=== PATIENT | male | born 1955 | race Hispanic/Latino ===

== ENCOUNTER 2020-09-11 16:10 | Emergency (ER) | payer OTHER ==
--- OUTSIDE RECORDS SUMMARY | 2020-09-11 16:13 | XMS REPORT | Continuity of Care Document ---
:1955 Author Organization [facility] t Address [address] [place] [address] Care Team Providers Name Role Phone Avi Mcleod MD Primary Care Physician [phone] Mirza Hall Attending Clinician JULIET Attending Clinician Unavailable JULIET Admitting Clinician Unavailable Problems Condition Condition Condition Status Onset Resolution Last Treating Co mments Source Name Details Category Date Date Treatment Clinician Date R25.1 - Diagnosis Active 2019-10-11 Me moria "TREMOR, 6-12 10:20:00 l UNSPECIFIE R25.1 - 00:01: Her smith D" M79.643 "TREMOR, 00 - UNSPECIFIE D" M79.643 - Active 10/08/2019 WINSOME Ross Weakness Weakness Disease Active [place] of both of both 06 Methodi arms arms 00:00: st 00 Cervical Problem Active 2020-03-04 Mem oria myelopathy 22:23:23 l (disorder) Cervical He rmann myelopathy (disorder) Active Problem 03/04/2020 [facility] OPIDonald Ross Hand pain Problem Active 2020-03-04 Me moria (finding) 22:23:23 l Hand [place] pain (finding) Active [facility] WINSOME Ross Tremor Problem Active 2020-03-04 Memor ia (finding) 22:23:23 l Tremor [place] (finding) Active Problem 03/04/2020 [facility] OPIDonald NegreteGilman Carpal Problem Active 2020-03-04 Memor ia tunnel 22:23:23 l syndrome Carpal [place] (disorder) tunnel syndrome (disorder) Active Problem 03/04/2020 [facility]ID Gilman Allergies, Adverse Reactions, Alerts Allergy Allergy Status Severity Reaction(s) Onset Inactive Treating Comm ents Source Name Type Date Date Clinician No Known No Known Active Michael a Medicati Medicati l on on [place] Allergie Allergie s s Social History Social Habit Start Date Stop Date Quantity Comments Source Tobacco use and 2018-10-31 2018-10-31 Never used Travis Mata ethodist exposure 00:00:00 00:00:00 Alcohol intake 2018-10-31 2018-10-31 Current drinker [place] [facility] 00:00:00 00:00:00 of alcohol (finding) [birth year] Travis diazodist 00:00:00 00:00:00 Smoking Status Start Date Stop Date Source Social History [facility] Current some day smoker 2018-10-31 00:00:00 [place] Medications Ordered Filled Start Stop Current Ordering Indication Dosage Frequency Signature Comments Components Source Medication Medication Date Date Medication? Clinician (SIG) Name Name gabapentin No 300 mg = 1 M emoria 300 MG Oral 6-10 cap, PO, l Capsule 17:10: TID, 0 [place] 00 Refill(s) HYDROcodone 2018-04 Yes 10 mg = 1 M emoria 10 mg oral 2-26 cap, PO, l capsule, 21:26: Q12H, 0 [place] extended 00 Refill(s) release gabapentin Yes 300mg [id number] Take 300 [place] (NEURONTIN) 7-07 [id number] mg by M ethodi 300 mg 18:11: 3D mouth 3 st capsule 28 (three) times a day. cyclobenzap Yes 10mg Q.5D Take 10 mg Robles rine 7-07 by mouth 2 Methodi (FLEXERIL) 18:11: (two) st 10 mg 28 times a tablet day as needed for muscle spasms. Vital Signs Vital Name Observation Time Observation Value Comments Source Systolic (mm Hg) 2019-10-15 13:46:00 Jesus riaharley Sow Diastolic (mm Hg) 2019-10-15 13:46:00 Mem orial [place] Heart Rate 2019-10-15 13:46:00 Luis Sow Respitory Rate 2019-10-15 13:46:00 Memori al [place] Height 2019-10-15 13:46:00 172.72 cm [facility] [place] Weight 2019-10-15 13:46:00 [facility] BMI Calculated 2019-10-15 13:46:00 Memori al [place] Systolic (mm Hg) 2019-10-06 16:46:00 Jesus rial [place] Diastolic (mm Hg) 2019-10-06 16:46:00 Mem orial [place] Heart Rate 2019-10-06 16:46:00 [facility] Respitory Rate 2019-10-06 16:46:00 Memori al [place] Temperature Oral (F) 2019-10-06 16:46:00 98.5 F [facility] [place] Height 2019-10-06 16:46:00 177.8 cm [facility] [place] Weight 2019-10-06 16:46:00 [facility] BMI Calculated 2019-10-06 16:46:00 Memori al [place] Systolic (mm Hg) 2019-04-22 20:57:00 Jesus rial [place] Diastolic (mm Hg) 2019-04-22 20:57:00 Mem orial [place] Heart Rate 2019-04-22 20:57:00 [facility] Respitory Rate 2019-04-22 20:57:00 Memori al [place] Height 2019-04-22 20:57:00 177.8 cm [facility] [place] Weight 2019-04-22 20:57:00 [facility] BMI Calculated 2019-04-22 20:57:00 Memori al [place] Procedures Procedure Date / Time Performed Performing Clinician [facility] Cervical laminectomy [facility] Plan of Care Planned Activity Planned Date Details Comments Source Future Scheduled 2020-11-26 INFLUENZA VACCINE [place] [facility] Test 00:00:00 [code = INFLUENZA VACCINE] Future Scheduled 2004-01-24 COLONOSCOPY SCREENING [place] [facility] Test 00:00:00 [code = COLONOSCOPY SCREENING] Future Scheduled 2004-01-24 SHINGLES VACCINES (#1) [place] [facility] Test 00:00:00 [code = SHINGLES VACCINES (#1)] Future Scheduled 1972-01-24 Hepatitis C screening [place] [facility] Test 00:00:00 (procedure) [code = 746577441] Future Scheduled 1970 COVID-19 VACCINE (1) Harrisonmichelle morris [facility] Test 00:00:00 [code = COVID-19 VACCINE (1)] Future Scheduled 1960-01-24 65+ PNEUMOCOCCAL [place] Ten[facility] Test 00:00:00 VACCINE (1 of 2 - PPSV23) [code = 65+ PNEUMOCOCCAL VACCINE (1 of 2 - PPSV23)] Encounters Start End Encounter Admission Attending Care Care Encounter Source Date/Time Date/Time Type Type Clinicians Facility Department ID 2020-03-02 2020-03-02 [id number] 10:45:00 10:45:00 Ilia 08 Mirza 2019-10-29 2019-10-29 [facility] [id number] 14:38:00 23:59:00 Ilia Mirza 2019-10-15 2019-10-15 [facility] [id number] 08:15:00 23:59:59 Ilia 05 Mirza 2019-10-11 2019-10-11 Outpatient Isabel [facility] [id number] 10:08:00 23:59:00 Ilia 00 Mirza 2019-10-06 2019-10-06 [facility] [id number] 11:15:00 23:59:59 Ilia 04 Mirza 2019-07-08 2019-07-08 [facility] [id number] 10:30:00 10:30:00 Ilia 03 Mirza 2019-05-19 2019-05-19 [facility] [id number] 08:15:00 08:15:00 Ilia 02 Mirza 2019-04-22 2019-04-22 [facility] [id number] 14:30:00 23:59:59 Ilia Mirza 2019-02-11 2019-02-11 Outpatient Kwaku CHUNG [facility] RAD [id number] 16:11:00 23:59:00 WERN[facility] Results Test Description Test Time Test Comments Results Result Comments Source LUMBOSACRAL AP & 2019-02-11 Lumbar spine, 2 LATERAL *GP* 16:42:58 viewsLocation Code: [id number] HISTORY: Back problemCOMPARISON: None.COMMENTS: AP and lateral views of the lumbar spine demonstrate no acutefracture or malalignment. There is moderate multilevel disc space narrowingwith endplate sclerosis and osteophyte formation. The soft tissues areunremarkable.IMPR ESSION: Moderate multilevel lumbar spondylosis with otherwise no acuteabnormality.
[2020-09-11] MEDS ORDERED: HYDROCODONE/APAP 5/325 MG TAB ONE (17:15)
--- NOTE | 2020-09-11 17:47 | RAD REPORT ---
EXAM DESCRIPTION: CT - Head Brain Wo Cont - 09/11/2020 5:21 pm CLINICAL HISTORY: Fall injury Fall, trauma, head injury COMPARISON: HEAD BRAIN W O CONTRAST dated 07/05/2015 TECHNIQUE: All CT scans are performed using dose optimization technique as appropriate and may inclu de automated exposure control or mA/KV adjustment according to patient size. FINDINGS: No intracranial hemorrhage, hydrocephalus or extra-axial fluid collection.No areas of brai n edema or evidence of midline shift. The paranasal sinuses and mastoids are clear. The calvarium is intact. IMPRESSION: No acute intracranial abnormality.
--- NOTE | 2020-09-11 17:50 | RAD REPORT ---
EXAM DESCRIPTION: RAD - Wrist Right 3 View - 09/11/2020 5:27 pm CLINICAL HISTORY: PAIN Pain COMPARISON: <Comparisons> FINDINGS: Soft tissue swelling is seen along the posterior wrist. Prominent degenerative changes ar e noted involving the radiocarpal joint. No acute fractures seen.
--- NOTE | 2020-09-11 17:51 | RAD REPORT ---
EXAM DESCRIPTION: RAD - Knee Right 3 View - 09/11/2020 5:27 pm CLINICAL HISTORY: PAIN COMPARISON: No comparisons FINDINGS: Severe osteoarthritis is seen involving the lateral compartment with [id number]. No acut e fracture evident. Small suprapatellar joint effusion.
--- NOTE | 2020-09-11 18:15 | ER ---
Nurse's Notes [facility] Name: Rene Padgett Age: 65 yrs Sex: Male : 1955 Arrival Date: 09/11/2020 Time: 16:10 Bed 10 Private MD: Diagnosis: Abrasion of nose;Laceration without foreign body of lip;Contusion of right knee;Unspecified sprain of right wrist Presentation: 09/11 16:19 Chief complaint: Patient states: tripped and fell forward at 1425 today. Lac on lower ca1 lip, nose. Pain on R of the sternum, R knee, R wrist. Denies LOC. Coronavirus screen: Client denies travel out of the [place] in the last 14 days. At this time, the client does not indicate any symptoms associated with coronavirus-19. Ebola Screen: Patient negative for fever greater than or equal to 101.5 degrees Fahrenheit, and additional compatible Ebola Virus Disease symptoms Patient denies exposure to infectious person. Patient denies travel to an Ebola-affected area in the 21 days before illness onset. No symptoms or risks identified at this time. Initial Sepsis Screen: Does the patient meet any 2 criteria? No. Patient's initial sepsis screen is negative. Does the patient have a suspected source of infection? No. Patient's initial sepsis screen is negative. Risk Assessment: Do you want to hurt yourself or someone else? Patient reports no desire to harm self or others. Onset of symptoms was September 11, 2020. 16:19 Method Of Arrival: Wheelchair ca1 16:19 Acuity: JAYLEN 4 ca1 Historical: - Allergies: 16:22 No Known Allergies; ca1 - PMHx: 16:22 High Cholesterol; ca1 - PSHx: 16:22 back sx; ca1 - Immunization history:: Client reports receiving the 2nd dose of the Covid vaccine, Client reports receiving the 1st dose of the Covid vaccine, Last tetanus immunization: unknown, Flu vaccine status is unknown. - Social history:: Smoking status: Patient denies any tobacco usage or history of. Screenin:47 Abuse screen: Denies threats or abuse. Denies injuries from another. Nutritional ld1 screening: No deficits noted. Tuberculosis screening: No symptoms or risk factors identified. Fall Risk Fall in past 12 months (25 points). Assessment: 16:47 General: Appears in no apparent distress. comfortable, Behavior is calm, cooperative, ld1 appropriate for age. Pain: Complains of pain in medial aspect of right wrist, right arm and right leg Pain currently is 8 out of 10 on a pain scale. Quality of pain is described as throbbing, Pain began 2 hours ago. Is continuous. Neuro: Level of Consciousness is awake, alert, obeys commands, Oriented to person, place, time, situation, Appropriate for age. Cardiovascular: Capillary refill < 3 seconds Patient's skin is warm and dry. Respiratory: Airway is patent Respiratory effort is even, unlabored, Respiratory pattern is regular, symmetrical. GI: Abdomen is round non-distended. : No signs and/or symptoms were reported regarding the genitourinary system. EENT: No signs and/or symptoms were reported regarding the EENT system. Derm: No signs and/or symptoms reported regarding the dermatologic system. Musculoskeletal: No signs and/or symptoms reported regarding the musculoskeletal system. Vital Signs: 16:19 BP 139 / 91; Pulse 73; Resp 16 S; Temp 98.1; Pulse Ox 98% on R/A; Weight 102.06 kg (R); ca1 Height 5 ft. 10 in. (177.80 cm) (R); Pain 10/10; 16:47 BP 142 / 109; Pulse 73; Resp 18; Pulse Ox 99% on R/A; Weight 102.6 kg; Height 5 ft. 9 ld1 in. (175.26 cm); Pain 8/10; 16:47 Body Mass Index 33.40 (102.60 kg, 175.26 cm) ld1 ED Course: 16:10 Patient arrived in ED. ds1 16:22 Triage completed. ca1 16:22 Arm band placed on right wrist. ca1 16:38 Cristina aHre RN is Primary Nurse. ld1 16:39 Travis Park NP is PHCP. pm1 16:39 Krzysztof Aly MD is Attending Physician. pm1 16:47 Patient has correct armband on for positive identification. Call light in reach. Pulse ld1 ox on. NIBP on. Door closed. Noise minimized. 16:47 No provider procedures requiring assistance completed. ld1 17:22 CT Head Brain wo Cont In Process Unspecified. EDMS 17:27 Knee Right 3 View XRAY In Process Unspecified. EDMS 17:27 Wrist Right 3 View XRAY In Process Unspecified. EDMS 18:24 Patient did not have IV access during this emergency room visit. 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 Exp: ld1 10/01/2021. Lot #: [id number]. } Route: IM; Site: right deltoid; 18:24 Follow up: Response: No adverse reaction ld1 Outcome: 18:14 Discharge ordered by MD. pm1 18:23 Discharged to home via wheelchair. ld1 18:23 Condition: good 18:23 Discharge instructions given to patient, family, Instructed on discharge instructions, follow up and referral plans. medication usage, Demonstrated understanding of instructions, follow-up care, medications, Prescriptions given X 1. 18:24 Patient left the ED. ld1 Signatures: Dispatcher [employer] EDWY Frieda Elizabeth ds1 Travis Park, BOX PRINTER BOX PRINTER pm1 Indira Giordano RN RN ca1 Cristina Hare RN RN ld1 Corrections: (The following items were deleted from the chart) 16:26 16:19 Chief complaint: Patient states: tripped and fell forward at 1425 today. Lac on ca1 lower lip, nose. Pain on R of the sternum, R knee, R wrist. ca1
--- NOTE | 2020-09-11 18:15 | EDPHYS ---
Physician Documentation [facility] Name: Rene Padgett Age: 65 yrs Sex: Male : 1955 Arrival Date: 09/11/2020 Time: 16:10 Bed 10 Private MD: ED Physician Krzysztof Aly HPI: 09/11 17:25 This 65 yrs old Male presents to ER via Wheelchair with complaints of Fall pm1 Injury. 17:25 Details of fall: The patient fell from an upright position, while standing. Onset: The pm1 symptoms/episode began/occurred today. Associated injuries: The patient sustained right wrist and right knee, pain, nose, abrasion, mouth, laceration. The patient has not experienced similar symptoms in the past. The patient has not recently seen a physician. Patient slipped in the mud and landed on his right knee, right hand and face. No LOC, headache, neck pain. Historical: - Allergies: 16:22 No Known Allergies; ca1 - PMHx: 16:22 High Cholesterol; ca1 - PSHx: 16:22 back sx; ca1 - Immunization history:: Client reports receiving the 2nd dose of the Covid vaccine, Client reports receiving the 1st dose of the Covid vaccine, Last tetanus immunization: unknown, Flu vaccine status is unknown. - Social history:: Smoking status: Patient denies any tobacco usage or history of. ROS: 17:25 Constitutional: Negative for fever, chills, and weight loss, Eyes: Negative for injury, pm1 pain, redness, and discharge, Neck: Negative for injury, pain, and swelling, Cardiovascular: Negative for chest pain, palpitations, and edema, Respiratory: Negative for shortness of breath, cough, wheezing, and pleuritic chest pain. 17:25 ENT: Negative for injury, pain, and discharge, Abdomen/GI: Negative for abdominal pain, nausea, vomiting, diarrhea, and constipation, Back: Negative for injury and pain. 17:25 Neuro: Negative for headache, weakness, numbness, tingling, and seizure. 17:25 MS/extremity: Positive for pain, of the right wrist and right knee, Negative for decreased range of motion, deformity. 17:25 Skin: Positive for abrasion(s), of the nose. Exam: 17:25 Constitutional: This is a well developed, well nourished patient who is awake, alert, pm1 and in no acute distress. Head/Face: Normocephalic, atraumatic. 17:25 Neck: Trachea midline, no thyromegaly or masses palpated, and no cervical lymphadenopathy. Supple, full range of motion without nuchal rigidity, or vertebral point tenderness. No Meningismus. Chest/axilla: Normal chest wall appearance and motion. Nontender with no deformity. No lesions are appreciated. 17:25 Back: No spinal tenderness. No costovertebral tenderness. Full range of motion. Skin: Warm, dry with normal turgor. Normal color with no rashes, no lesions, and no evidence of cellulitis. 17:25 ENT: Nose: External nose: abrasion is noted, apex of the nose, Nasal septum: is midline, no septal hematoma appreciated, Nasal mucosa: normal, bleeding, is not appreciated, is seen from the right nare, is seen from the left nare, Mouth: Lips: small shallow laceration present to right side of lower lip, Oral mucosa: normal, pink and intact, moist, Gums: normal with healthy appearance, Tongue: is normal. 17:25 Cardiovascular: Rate: normal, Rhythm: regular, Pulses: no pulse deficits are appreciated. 17:25 Respiratory: Exam negative for acute changes, respiratory distress, shortness of breath. 17:25 Musculoskeletal/extremity: Extremities: grossly normal except: noted in the right wrist: tenderness, There is no evidence of decreased ROM, deformity, noted in the right knee: tenderness, no evidence of decreased ROM, deformity. 17:25 Neuro: Exam negative for acute changes, Orientation: is normal, Mentation: is normal, pm1 Motor: is normal, moves all fours. Vital Signs: 16:19 BP 139 / 91; Pulse 73; Resp 16 S; Temp 98.1; Pulse Ox 98% on R/A; Weight 102.06 kg (R); ca1 Height 5 ft. 10 in. (177.80 cm) (R); Pain 10/10; 16:47 BP 142 / 109; Pulse 73; Resp 18; Pulse Ox 99% on R/A; Weight 102.6 kg; Height 5 ft. 9 ld1 in. (175.26 cm); Pain 8/10; 16:47 Body Mass Index 33.40 (102.60 kg, 175.26 cm) ld1 MDM: 16:44 Patient medically screened. pm1 17:51 ED course: small superficial laceration present to right lower lip that does not pm1 require suturing. 18:13 Data reviewed: vital signs. Data interpreted: Pulse oximetry: on room air is 99 %. pm1 Interpretation: normal. Counseling: I had a detailed discussion with the patient and/or guardian regarding: the historical points, exam findings, and any diagnostic results supporting the discharge/admit diagnosis, radiology results, the need for outpatient follow up, for definitive care, a orthopedic surgeon, to return to the emergency department if symptoms worsen or persist or if there are any questions or concerns that arise at home. 09/11 16:45 Order name: Knee Right 3 View XRAY; Complete Time: 17:53 pm1 09/11 16:45 Order name: Wrist Right 3 View XRAY; Complete Time: 17:53 pm1 09/11 16:45 Order name: CT Head Brain wo Cont; Complete Time: 17:51 pm1 09/11 18:15 Order name: [place] wrap-joint; Complete Time: 18:22 pm1 Administered Medications: 16:58 Drug: [place] (HYDROcodone-acetaminophen) 5 mg-325 mg 1 tabs Route: PO; ld1 17:22 Follow up: Response: No adverse reaction ld1 18:22 Drug: Tetanus-Diphtheria Toxoid Adult 0.5 ml {Medical Fee Clerk: [employer]. Exp: ld1 10/01/2021. Lot #: [id number]. } Route: IM; Site: right deltoid; 18:24 Follow up: Response: No adverse reaction ld1 Disposition: 18:42 Co-signature as Attending Physician, Krzysztof Aly MD. Chart complete. ma2 Disposition: 09/11/20 18:14 Discharged to Home. Impression: Unspecified sprain of right wrist, Abrasion of nose, Laceration without foreign body of lip, Contusion of right knee. - Condition is Stable. - Discharge Instructions: Abrasion, Wrist Splint, Mouth Laceration, [id number], Wrist Sprain. - Prescriptions for Tylenol- Codeine #3 300-30 mg Oral Tablet - take 2 tablets by ORAL route every 4-6 hours As needed; 20 tablet. - Medication Reconciliation Form, Thank You Letter, Antibiotic Education, Prescription Opioid Use form. - Follow up: Emergency Department; When: As needed; Reason: Worsening of condition. Follow up: Private Physician; When: 2 - 3 days; Reason: Recheck today's complaints, Continuance of care, Re-evaluation by your physician. - Problem is new. - Symptoms have improved. Signatures: Dispatcher [employer] EDMD Travis Park, CAUSTIC PURIFICATION OPERATOR CAUSTIC PURIFICATION OPERATOR pm1 Krzysztof Aly MD MD ma2 Indira Giordano RN RN ca1 Cristina Hare RN RN ld1 Corrections: (The following items were deleted from the chart) 17:27 16:46 Hand Right 3 View+RAD.RAD.BRZ ordered. [facility] EDMD 18:24 18:14 09/11/2020 18:14 Discharged to Home. Impression: Unspecified sprain of right ld1 wristAbrasion of nose; Laceration without foreign body of lip; Contusion of right knee. Condition is Stable. Forms are Medication Reconciliation Form, Thank You Letter, Antibiotic Education, Prescription Opioid Use. Follow up: Emergency Department; When: As needed; Reason: Worsening of condition. Follow up: Private Physician; When: 2 - 3 days; Reason: Recheck today's complaints, Continuance of care, Re-evaluation by your physician. Problem is new. Symptoms have improved. pm1
[2020-09-11] MEDS ORDERED: TETANUS & DIPHTHERIA TOX,ADULT 0.5 ML VIAL ONE (18:36)
== END 2020-09-11 18:24 | disposition home or self-care (01) ==
LOC: ER 16:10
DX: S63.501A Unspecified sprain of right wrist, initial encounter (principal); S00.31XA Abrasion of nose, initial encounter; S80.01XA Contusion of right knee, initial encounter; S01.511A Laceration without foreign body of lip, initial encounter; Z23 Encounter for immunization; E78.00 Pure hypercholesterolemia, unspecified; W01.0XXA Fall on same level from slipping, tripping and stumbling without subsequent striking against object, initial encounter
CPT/HCPCS: 70450; 90471; 90714; 99284

== ENCOUNTER 2022-07-01 16:12 | Emergency (ER) | payer MEDICARE, OTHER ==
[2022-07-01] MEDS ORDERED: predniSONE 20 MG TAB ONE (16:32)
--- OUTSIDE RECORDS SUMMARY | 2022-07-01 16:48 | XMS REPORT | Continuity of Care Document ---
:[address] [facility] t Address [address] [place] [address] Care Team Providers Name Role Phone Avi Mcleod MD Primary Care Physician JOEY CERVANTES Attending Clinician Unavailable ALPA WHARTON Attending Clinician Unavailable SYSTEM, PROVIDER NOT IN Attending Clinician Unavailable RAFAEL MUNGUIA Attending Clinician Unavailable SEVERO MUNROE Attending Clinician Unavailable MO VALENCIA Attending Clinician Unavailable Curly Gomes MD Attending Clinician Billy GRACIA PhD, Joey Attending Clinician Epifanio Joiner MD Attending Clinician Joanie Worthington NP Attending Clinician CROW GREER Attending Clinician Unavailable Crow Greer APN Attending Clinician KAILEY PARIKH Attending Clinician Unavailable Debbie GRACIA, [place] Attending Clinician Facundo Victoria MD Attending Clinician Zoran GARCIA, Gracy Valle Attending Clinician Unavailable Tammi Carbajal Attending Clinician Unavailable Andres CUNNINGHAM, Alpa Attending Clinician Dillan GRACIA, Severo Leung Attending Clinician Calista ENROLLMENT NURSE, Astrid Attending Clinician Christian GRACIA, Karel Attending Clinician Keanu GRACIA, Yodit Chun Attending Clinician Jeremías GRACIA, Mo Attending Clinician Dhara GRACIA, Luis Antonio Aragon Attending Clinician Michael ROCKWELL, Khadra Attending Clinician Lobito GRACIA, Sam Attending Clinician Brianna GASTON, Stephanie Attending Clinician Unavailable Kevin GRACIA, Mauro Danielson Attending Clinician Leann CHOI, Jihan Attending Clinician Bud WAGNER, Rhiannon Olea Attending Clinician [phone] Natalia GRACIA PhD, Brett Attending Clinician Kenney GRACIA, Lb Attending Clinician Kevin GRACIA, Ralph Attending Clinician Letty GRACIA, Shane Lovelace Attending Clinician Curly Kauffman Attending Clinician Isela GARCIA, Chanel Macias Attending Clinician Doris Valencia Attending Clinician Josefa Castillo Attending Clinician Johanne Galaviz RN Attending Clinician Unavailable Maribell GARCIA, Leyla Penaloza Attending Clinician Unavailable Moises ENROLLMENT NURSE, Anila Attending Clinician Zackery ENROLLMENT NURSE, Savana Attending Clinician Lilly GARCIA, Mercedez Garland Attending Clinician Unavailable Yazan GRACIA, Phoebe Gómez Attending Clinician Maki Cox NP Attending Clinician PHOEBE PEREZ Attending Clinician Unavailable Leyla GRACIA, Marciano Attending Clinician Jaren GRACIA, Rod Attending Clinician Lucinda Antoine APN Attending Clinician Joseph SCHOOL BUS DRIVER/MECHANIC, Michelle Attending Clinician LUCINDA ANTOINE Attending Clinician Unavailable Rodger GRACIA, Nolberto Aragon Attending Clinician Chacho GRACIA, Patel Lemos Attending Clinician Claudia Gayle Attending Clinician DARNELL QUICK Attending Clinician Unavailable Elizabeth GARCIA, Elver Lawson Attending Clinician Unavailable Valerie Arana Attending Clinician Jacklyn Menjivar Attending Clinician Eren East MD Attending Clinician Valerie Torres MD Attending Clinician Poli Recinos MD Attending Clinician Luis Antonio Baker MD Attending Clinician [phone] LUIS ANTONIO BAKER Attending Clinician Unavailable Darnell Quick APN Attending Clinician Archana Rhoades Attending Clinician Sriram Corea MD Attending Clinician YODIT COLUNGA Attending Clinician Unavailable Nikki Kraus Attending Clinician Cesar Angel Attending Clinician Favian Hill MD Attending Clinician Shaik BERNARD Nadja Jenkins Attending Clinician Mouna Youssef Attending Clinician Jaren Baptiste MD Attending Clinician Shaji TEACHER EDUCATION INSTRUCTOR, Jony Attending Clinician Jordan GARCIA, Scarlett Johnson Attending Clinician Unavailable Tarik WAGNER, Susan Perkins Attending Clinician Bg Montemayor PT, Paula Attending Clinician Dimple Moctezuma Attending Clinician SUSAN KELLER Attending Clinician Unavailable Alex RN, Lavern Espino Attending Clinician Unavailable Jay WAGNER, Tahir S Attending Clinician [phone] Carlos GARCIA, Chanel Haney Attending Clinician Unavailable Nigel GARCIA, Jodi Almaguer Attending Clinician Unavailable Julian GRACIA, Cornelius Lemos Attending Clinician Sylvester GRACIA, Ana Attending Clinician Leann RGACIA, Crescencio Gurrola. Attending Clinician Elham GRACIA, Francis Attending Clinician Anay GRACIA, Roberto Attending Clinician [phone] Misti Barton Attending Clinician [phone] Kiarra Almaguer MD Attending Clinician Clarence GRACIA, Bam Vinson Attending Clinician [phone] Malaika Ram NP Attending Clinician Cassie Arenas Attending Clinician [phone] ROBERTO FENG Attending Clinician Unavailable BELKIS ELLIOTT Attending Clinician Unavailable CRESCENCIO COOLEY V. Attending Clinician Unavailable Leann CUNNINGHAM, [facility] Attending Clinician Inge Garcia MA Attending Clinician Unavailable NEIL LEVINE Attending Clinician Unavailable Neil Levine MD Attending Clinician 2, [facility] Attending Clinician Unavailable Mo Valencia MD Attending Clinician Only, Adc Test Attending Clinician Unavailable Doctor Unassigned, [place] Attending Clinician Unavailable Pob, [facility] Main Attending Clinician Unavailable Ilia Hall Attending Clinician WERNER CHUNG Attending Clinician Unavailable MO VALENCIA Admitting Clinician Unavailable JOEY CERVANTES Admitting Clinician Unavailable YODIT COLUNGA Admitting Clinician Unavailable PHOEBE PEREZ Admitting Clinician Unavailable SEVERO MUNROE Admitting Clinician Unavailable POLI RECINOS Admitting Clinician Unavailable CRESCENCIO COOLEY V. Admitting Clinician Unavailable NEIL LEVINE Admitting Clinician Unavailable Mo Valencia MD Admitting Clinician WERNER CHUNG Admitting Clinician Unavailable Payers Payer Name Policy Type Policy Number Effective Date Expiration Date Rigo shaw [facility] [id number] 2021 MEDICARE ADVANTAGE 00:00:00 [employer] [id number] 2020 MEDICARE ADVANTAGE 00:00:00 Problems Condition Condition Condition Status Onset Resolution Last Treating Co mments Source Name Details Category Date Date Treatment Clinician Date Bacteremia Bacteremia Disease Active U nivers 2-22 ity of 00:: [facility] History of History of Disease Active U nivers colonic colonic 2-22 [place] access 00 MD [facility] Bilateral Bilateral Disease Active [facility] arm pain arm pain 05-02 st 00:00: Hosp[facility] 00 l Pain in Pain in Disease Active Univers left knee left knee 10-26 ity of 00:: MD [facility] Peripheral Peripheral Disease Active U anthony neuropathy neuropathy 6- it y of 00:00: MD [facility] Hypokalemi Hypokalemi Disease Active U nivers a a 6-29 ity of 00:00: 00 MD Robert saucedo [facility] Hypomagnes Hypomagnes Disease Active U anthony emia emia 10-24 ity of 00:00: [place] 00 MD Robert saucedo [facility] Hypophosph Hypophosph Disease Active U anthony atemia atemia 10-24 ity of 00:00: [place] 00 MD Robert saucedo [facility] Hypotensio Hypotensio Disease Active U anthony n n 10-22 ity of 00:00: [place] 00 MD Robert saucedo [facility] Sepsis Sepsis Disease Active Univers 6- ity of 00:00: [place] 00 MD oRbert saucedo [facility] Parkinson' Parkinson' Disease Active U anthony s disease s disease 10-22 ity of 00:00: [place] 00 MD Robert saucedo [facility] Urge Urge Disease Active Univers incontinen incontinen 10-22 it y of ce ce 00:00: [place] 00 MD Robert saucedo [facility] Overactive Overactive Disease Active U anthony bladder bladder 10-22 ity of 00:00: [place] 00 MD Robert saucedo [facility] 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 00 MD Jones [facility] 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 5-24 it y of abhishek weiss 00:00: [place] malnutriti malnutriti 00 on on Robert [facility] Fever Fever Disease Active Univers 5-18 ity of 00:00: [place] 00 MD Robert saucedo [facility] Cancer of Cancer of Disease Active Uni vers intra-abdo intra-abdo 5-18 it y of tomas tomas 00:00: [place] organs organs 00 MD [facility] 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 5-18 ity of neoplastic neoplastic [place] disease disease 00 MD Robert saucedo [facility] Abscess Abscess Disease Active Univers with with 5-17 ity of diverticul [place]icul [place] disease ar disease 00 of colon of colon Jaspal burden [facility] Abdominal Abdominal Disease Active Uni vers pain pain 5-17 ity of 00:00: [place] 00 MD [facility] [place] Parkinson' Parkinson' Disease Active M ethodi s disease s disease 05-23 st 00:00: Hospita 00 l R25.1 - R25.1 - Diagnosis Active 2019-10-11 Memoria "TREMOR, "TREMOR, 612 10:20:00 l UNSPECIFIE UNSPECIFIE 00:01: He rmmalaika D" M79.643 D" M79.643 00 - - Active 10/08/2019 [facility] [place] Weakness Weakness Disease Active Metho di of both of both [facility] arms arms 00:00: Hospita 00 l Infection Infection Disease Active Uni vers due to due to ity of ESBL ESBL [place] Escherariana Escherichi MD espino coli a coli [facility] Endocardit Endocardit Disease Active U anthony is is ity of [place] [facility] Pseudomona Pseudomona Disease Active [facility] [place] [facility] Cervical Cervical Problem Active 2020-03-04 Memoria myelopathy myelopathy 22:23:23 l (disorder) (disorder) [place] leila Active Problem 03/04/2020 [facility] [place]OME [place] Hand pain Hand pain Problem Active 2020-03-04 Memoria (finding) (finding) 22:23:23 l Active Juanjose Problem 03/04/2020 [facility] [place] Carpal Carpal Problem Active 2020-03-04 Jesus bj tunnel tunnel 22:23:23 l syndrome syndrome Devonte n (disorder) (disorder) Active Problem 03/04/2020 [facility] [place]OME [place] Tremor Tremor Problem Active 2020-03-04 Jesus bj (finding) (finding) 22:23:23 l Active [place] Problem 03/04/2020 [facility] W[place]OME [place] Primary Primary Disease Resolve 2021-10-22 2021-10-22 Univers cutaneous cutaneous d 09-27 00:00:00 14:06:17 ity of diffuse diffuse 00:00: [place] large cell large cell 00 B-cell [facility] n of lower of lower Cancer extremity extremity Cent er Pain in Pain in Disease Resolve 2021-10-22 2021-10-22 Univers right knee right knee d 09-16 00:00:00 14:05:04 ity of 00:: [place] 00 MD Robert saucedo [facility] Uncontroll Uncontroll Disease Resolve 2021-10-22 2021-10-22 Univers ed pain ed pain d 09-15 00:00:00 14:05:05 ity of 00:00: [place] 00 MD Robert saucedo [facility] Malnutriti Malnutriti Disease Resolve 2021-10-22 2021-10-22 Univers on of on of d 09-14 00:00:00 14:: ity of moderate moderate 00:00: [place] degree degree 00 MD Robert saucedo [facility] Hyposmolal Hyposmolal Disease Resolve 2021-10-22 2021-10-22 Univers ity and/or ity and/or d 09-12 00:00:00 14:04:53 ity of hyponatrem hyponatrem [place] 00 MD Robert saucedo [facility] Intractabl Intractabl Disease Resolve 2021-10-22 2021-10-22 Univers e nausea e nausea d 09-12 00:00:00 14:04:56 it y of and and 00:00: [place] vomiting vomiting 00 MD Robert saucedo [facility] Allergies, Adverse Reactions, Alerts Allergy Allergy Status Severity Reaction(s) Onset Inactive Treating Comm ents Source Name Type Date Date Clinician NO KNOWN Drug Active Univers ALLERGIE Class ity of S [facility] No Known No Known Active Memori a Medicati Medicati l on on Juanjose Allergie Allergie s s Social History Social Habit Start Date Stop Date Quantity Comments Source Tobacco use and 2022-06-19 2022-06-19 Smokeless tobacco Un iversity of exposure 00:00:00 00:00:00 non-user Radha mcnulty [facility] Alcohol intake 2022-06-19 2022-06-19 Ex-drinker University of 00:00:00 00:00:00 (finding) Radha mcnulty [facility] Tobacco Comment 2022-06-19 2022-06-19 Quit 10 yrs back Uni versity of 00:00:00 00:00:00 [facility] Alcohol Comment 2022-06-19 2022-06-19 WQuit 10 yrs back Un iversity of 00:00:00 00:00:00 [facility] Exposure to 2022-06-08 2022-06-18 Not sure [facility]-CoV-2 00:00:00 23:47:00 [facility]cnulty (event[facility] History of 2012-04-28 Cigarette Smoker [facility] of tobacco use 00:00:00 [facility] Sex [birth year] Universit y of 00:00:00 00:00:00 [facility] Smoking Status Start Date Stop Date Source Unknown if ever smoked [facility] Ex-smoker 2022-06-19 00:00:00 2022-06-19 [place] o f Radha GRACIA 00:00:[address] [facility] Occasional tobacco 2021-12-13 00:00:00 [facility] smoker Social History [facility] Medications Ordered Filled Start Stop Current Ordering Indication Dosage Frequency Signature Comments Components Source Medication Medication Date Date Medication? Clinician (SIG) Name Name omeprazole Yes 20mg Take 1 Unive rs (PriLOSEC) 2-28 capsule ity of 20 mg 16:08: (20 mg) by [place] capsule 10 mouth MD every [place]o morning n before Cancer breakfast. [place] hydrOXYchlo Yes 200mg Take 1 Uni vers roQUINE 2-28 tablet ity of (PLAQUENIL) 16:08: (200 mg[place] 200 mg 10 by mouth MD tablet twice [place] daily. [facility] sulfaSALAzi Yes 500mg Take 1 Uni vers ne 2-28 tablet ity of (AZULFIDINE 16:08: (500 mg[place] 500 mg 10 by mouth MD tablet twice Anders[place] daily. [facility] omeprazole Yes 20mg Take 1 Unive rs (PriLOSEC) 2-28 capsule ity of 20 mg 16:08: (20 mg) by [place] capsule 10 mouth MD every [place] morning n before Cancer breakfast. [place] hydrOXYchlo Yes 200mg Take 1 Uni vers roQUINE 2-28 tablet ity of (PLAQUENIL) 16:08: (200 mg[place] 200 mg 10 by mouth MD tablet twice Anderso daily. n [facility] sulfaSALAzi Yes 500mg Take 1 Uni vers ne 2-28 tablet ity of (AZULFIDINE 16:08: (500 mg) [place] 500 mg 10 by mouth MD tablet twice Anderso daily. n [facility] omeprazole Yes 20mg Take 1 Unive rs (PriLOSEC) 2-28 capsule ity of 20 mg 16:08: (20 mg) by [place] capsule 10 mouth MD every [place] morning n before Cancer breakfast. [place] hydrOXYchlo Yes 200mg Take 1 Uni vers roQUINE 2-28 tablet ity of (PLAQUENIL) 16:08: (200 mg) [place] 200 mg 10 by mouth MD tablet twice Anderso daily. n [facility] sulfaSALAzi Yes 500mg Take 1 Uni vers ne 2-28 tablet ity of (AZULFIDINE 16:08: (500 mg) [place] 500 mg 10 by mouth MD tablet twice Anderso daily. n [facility] nystatin 2022- Yes Urge Apply Univers (Nystop) 06-25 incontinenc topically ity of 100,000 00:00: 04:59 e to [place] units/g 00 :00 affected MD powder area(s) 3 Anderso (three) n times a Cancer day for 14 Center days. Groin area nystatin 2022- Yes Urge Apply Univers (Nystop) 06-25 incontinenc topically ity of 100,000 00:00: 04:59 e to [place] units/g 00 :00 affected MD powder area(s) 3 Anderso (three) n times a Cancer day for 14 Center days. Groin area nystatin 2022- Yes Urge Apply Univers (Nystop) 06-25 incontinenc topically ity of 100,000 00:00: 04:59 e to [place] units/g 00 :00 affected MD powder area(s) 3 Anderso (three) n times a Cancer day for 14 Center days. Groin area ceFEPime 2022- No Pseudomonas 6000mg Infuse Univers (MAXIPIME) 06-25 aer[place]in[place] 6,000 mg ity of IV 00:00: 00:00 intravenou [place] prescriptio 00 :00 sly infuse MD n (Home over 24 Anderso Use) hours for n 3 days. [facility] ceFEPime 2022- No Pseudomonas 6000mg Infuse Univers (MAXIPIME) 06-25 aer[place]in[place] 6,000 mg ity of IV 00:00: 00:00 intravenou [place] prescriptio 00 :00 sly infuse MD n (Home over 24 Anderso Use) hours for n 3 days. [facility] ceFEPime 2022- No Pseudomonas 6000mg Infuse Univers (MAXIPIME) 06-25 aer[place]in[place] 6,000 mg ity of IV 00:00: 00:00 intravenou [place] prescriptio 00 :00 sly infuse MD n (Home over 24 Anderso Use) hours for n 3 days. [facility] ceFEPime 2022- No Pseudomonas 6000mg Infuse Univers (MAXIPIME) 06-25 aeroginosa 6,000 mg ity of IV 00:00: 00:00 intravenou [place] prescriptio 00 :00 sly infuse MD n (Home over 24 Anderso Use) hours for n 3 days. [facility] omeprazole Yes 20mg Take 1 Unive rs (PriLOSEC) 2-27 capsule ity of 20 mg 14:50: (20 mg) by [place] capsule 02 mouth MD every Anderso morning n before Cancer breakfast. Center hydrOXYchlo Yes 200mg Take 1 Uni vers roQUINE 2-27 tablet ity of (PLAQUENIL) 14:50: (200 mg) [place] 200 mg 02 by mouth MD tablet twice Anderso daily. n [facility] sulfaSALAzi Yes 500mg Take 1 Uni vers ne 2-27 tablet ity of (AZULFIDINE 14:50: (500 mg) [place] 500 mg 02 by mouth MD tablet twice Anderso daily. n [facility] gabapentin Yes Chronic Take 900 Univers (Neurontin) 2-27 pain mg (3 ity of 300 mg 00:00: capsules) [place] capsule 00 by mouth MD in the Anderso morning, n 900 mg (3 Cancer capsules) Center in afternoon, and take 1200 mg (4 capsules) at night. gabapentin 2022-0 Yes Chronic Take 900 Univers (Neurontin) 2-27 pain mg (3 ity of 300 mg 00:00: capsules) [place] capsule 00 by mouth MD in the Anders morning, n 900 mg (3 Cancer capsules) Center in afternoon, and take 1200 mg (4 capsules) at night. gabapentin 202-0 Yes Chronic Take 900 Univers (Neurontin) 2-27 pain mg (3 ity of 300 mg 00:00: capsules) [place] capsule 00 by mouth MD in the Anders morning, n 900 mg (3 Cancer capsules) Center in afternoon, and take 1200 mg (4 capsules) at night. gabapentin 2022-0 Yes Chronic Take 900 Univers (Neurontin) 2-27 pain mg (3 ity of 300 mg 00:00: capsules) [place] capsule 00 by [facility] n 900 mg (3 Cancer capsules) Center in afternoon, and take 1200 mg (4 capsules) at night. ciprofloxac 0 2022- Yes Bacteremia 750mg Take 1 Univers in HCl 06-24 03-12 tablet ity of (CIPRO) 750 00:00: 05:59 (750 mg) [place] mg tablet 00 :00 by mouth MD every 12 Anderso (twelve) n hours for Cancer 11 days. Center Last dose 07/04/22 ciprofloxac 2022- Yes Bacteremia 750mg Take 1 Univers in HCl 2 03-12 tablet ity of (CIPRO) 750 00:00: 05:59 (750 mg) [place] mg tablet 00 :00 by mouth MD every 12 Anderso (twelve) n hours for Cancer 11 days. Center Last dose 07/04/22 ciprofloxac 2022- Yes Bacteremia 750mg Take 1 Univers in HCl 2 03-12 tablet ity of (CIPRO) 750 00:00: 05:59 (750 mg) [place] mg tablet 00 :00 by mouth MD every 12 Anderso (twelve) n hours for Cancer 11 days. Center Last dose 07/04/22 ciprofloxac 2022- Yes Bacteremia 750mg Take 1 Univers in HCl 06-24 tablet ity of (CIPRO) 750 00:00: 05:59 (750 mg) [place] mg tablet 00 :00 by mouth MD every 12 Anderso (twelve) n hours for Cancer 11 days. Center Last dose 07/04/22 ceFEPime 2022- Yes Pseudomonas 2000mg Infuse Univers (MAXIPIME) 06-24 [place] 2,000 mg ity of IV 00:00: 05:59 intravenou [place] prescriptio 00 :00 sly every MD n (Home 8 (eight) Anderso Use) hours for n 3 days. Cancer Each Center infusion over 3 hours. ceFEPime 2022- Yes Pseudomonas 2000mg Infuse Univers (MAXIPIME) 06-24 [place] 2,000 mg ity of IV 00:00: 05:59 intravenou [place] prescriptio 00 :00 sly every n (Home 8 (eight) Anderso Use) hours for n 3 days. Cancer Each Center infusion over 3 hours. ceFEPime 2022- Yes Pseudomonas 2000mg Infuse Univers (MAXIPIME) 06-24 [place] 2,000 mg ity of IV 00:00: 05:59 intravenou [place] prescriptio 00 :00 sly every MD n (Home 8 (eight) Anderso Use) hours for n 3 days. Cancer Each Center infusion over 3 hours. ceFEPime 2022- No Pseudomonas 2000mg Infuse Univers (MAXIPIME) 06-24 [place] 2,000 mg ity of IV 00:00: 05:59 intravenou [place] prescriptio 00 :00 sly every MD n (Home 8 (eight) Anderso Use) hours for n 3 days. Cancer Each Center infusion over 3 hours. ceFEPime 2022- No Pseudomonas 2000mg Infuse Univers (MAXIPIME) 06-24 [place] 2,000 mg ity of IV 00:00: 00:00 intravenou [place] prescriptio 00 :00 sly every n (Home 8 (eight) Anderso Use) hours for n 3 days. Cancer Center ceFEPime 2022- No Pseudomonas 2000mg Infuse Univers (MAXIPIME) 06-24 [place] 2,000 mg ity of IV 00:00: 00:00 intravenou [place] prescriptio 00 :00 sly every MD n (Home 8 (eight) Anderso Use) hours for n 3 days. Cancer Center ceFEPime 2022- No Pseudomonas 2000mg Infuse Univers (MAXIPIME) 06-24 [place] 2,000 mg ity of IV 00:00: 00:00 intravenou [place] prescriptio 00 :00 sly every MD n (Home 8 (eight) Anderso Use) hours for n 3 days. [facility] Center ceFEPime 2022- No Pseudomonas 2000mg Infuse Univers (MAXIPIME) 06-24 [place] 2,000 mg ity of IV 00:00: 00:00 intravenou [place] prescriptio 00 :00 sly every MD n (Home 8 (eight) Anderso Use) hours for n 3 days. Cancer Center omeprazole Yes 20mg Take 1 Unive rs (PriLOSEC) 2-21 capsule ity of 20 mg 23:10: (20 mg) by [place] capsule 50 mouth MD every Anderso morning n before Cancer breakfast. Center hydrOXYchlo Yes 200mg Take 1 Uni vers roQUINE 2-21 tablet ity of (PLAQUENIL) 23:10: (200 mg) [place] 200 mg 50 by mouth MD tablet twice Anderso daily. n Cancer Center sulfaSALAzi Yes 500mg Take 1 Uni vers ne 2-21 tablet ity of (AZULFIDINE 23:10: (500 mg) [place] ) 500 mg 50 by mouth MD tablet twice Anderso daily. n Cancer Center fentaNYL Yes Chronic 50ug Place 1 Uni vers (DURAGESIC) 2-17 pain after patch (50 ity of 50 mcg/hr 00:00: cancer mcg) on [place] as transdermal 00 treatment the skin MD patch every 72 Anderso hours. n Remove old Cancer patch(es) Center before replacing new patch(es). HYDROmorpho Yes Chronic 4mg Take 1 U nivers ne 2-17 pain after tablet (4 ity of (Dilaudid) 00:00: cancer mg) by [place] 4 mg tablet 00 treatment mouth MD every 6 Anderso (six) n hours as Cancer needed for Center severe pain. fentaNYL [address] 1 Uni vers (DURAGESIC) 2-17 pain after patch (50 ity of 50 mcg/hr 00:00: cancer mcg) on [place] transdermal 00 treatment the skin MD patch every 72 Anderso hours. n Remove old Cancer patch(es) Center before replacing new patch(es). HYDROmorpho Yes Chronic 4mg Take 1 U nivers ne 2-17 pain after tablet (4 ity of (Dilaudid) 00:00: cancer mg) by [place] 4 mg tablet 00 treatment mouth MD every 6 Anderso (six) n hours as Cancer needed for Center severe pain. fentaNYL Yes Chronic 50ug Place 1 Uni vers (DURAGESIC) 2-17 pain after patch (50 ity of 50 mcg/hr 00:00: cancer mcg) on [place] transdermal 00 treatment the skin MD patch every 72 Anderso hours. n Remove old Cancer patch(es) Center before replacing new patch(es). HYDROmorpho Yes Chronic 4mg Take 1 U nivers ne 2-17 pain after tablet (4 ity of (Dilaudid) 00:00: cancer mg) by [place] as 4 mg tablet 00 treatment mouth MD every 6 Anderso (six) n hours as Cancer needed for Center severe pain. fentaNYL Yes Chronic 50ug Place 1 Uni vers (DURAGESIC) 2-17 pain after patch (50 ity of 50 mcg/hr 00:00: cancer mcg) on [place] as transdermal 00 treatment the skin MD patch every 72 Anderso hours. n Remove old Cancer patch(es) Center before replacing new patch(es). HYDROmorpho 0 Yes Chronic 4mg Take 1 U nivers ne 2-17 pain after tablet (4 ity of (Dilaudid) 00:00: cancer mg) by [place] as 4 mg tablet 00 treatment mouth MD every 6 Anderso (six) n hours as Cancer needed for Center severe pain. fentaNYL [address] Yes Chronic [address] 1 Uni vers (DURAGESIC) 2-17 pain after patch (50 ity of 50 mcg/hr 00:00: cancer mcg) on [place] as transdermal 00 treatment the skin MD patch every 72 Anderso hours. n Remove old Cancer patch(es) Center before replacing new patch(es). HYDROmorpho 2022-0 Yes Chronic 4mg Take 1 U nivers ne 2-17 pain after tablet (4 ity of (Dilaudid) 00:00: cancer mg) by [place] 4 mg tablet 00 treatment mouth MD every 6 [place] (six) n hours as Cancer needed for Center severe pain. omeprazole 0 Yes 20mg Take 1 Unive rs (PriLOSEC) 1-16 capsule ity of 20 mg 14:19: (20 mg) by [place] capsule 07 mouth MD every [place] morning n before Cancer breakfast. [place] hydrOXYchlo 2022-0 Yes 200mg Take 1 Uni vers roQUINE 1-16 tablet ity of (PLAQUENIL) 14:19: (200 mg) [place] 200 mg 07 by mouth MD tablet twice [place] daily. n [facility] sulfaSALAzi 2022-0 Yes 500mg Take 1 Uni vers ne 1-16 tablet ity of (AZULFIDINE 14:19: (500 mg) [place] 500 mg 07 by mouth MD tablet twice [place] daily. n [facility] omeprazole 0 Yes 20mg Take 1 Unive rs (PriLOSEC) 1-16 capsule ity of 20 mg 14:19: (20 mg) by [place] capsule 07 mouth MD every [place] morning n before Cancer breakfast. [place] hydrOXYchlo 2022-0 Yes 200mg Take 1 Uni vers roQUINE 1-16 tablet ity of (PLAQUENIL) 14:19: (200 mg) [place] 200 mg 07 by mouth MD tablet twice [place] daily. n [facility] sulfaSALAzi 2022-0 Yes 500mg Take 1 Uni vers ne 1-16 tablet ity of (AZULFIDINE 14:19: (500 mg) [place] 500 mg 07 by mouth MD tablet twice [place] daily. n [facility] ampicillin 2022-0 2022- Yes Bacteremia 12g Infuse [facility] (OMNIPEN) 1-15 05-24 12,000 mg ity of IV 00:00: 05:59 (12 g) [place] prescriptio 00 :00 intravenou MD n (HOME sly infuse Jaspal o USE) over 24 n hours for Cancer 11 days. [place] ampicillin 2022- Yes Bacteremia 12g Infuse [facility] (OMNIPEN) 05-12 12,000 mg ity of IV 00:00: 05:59 (12 g) [place] prescriptio 00 :00 intravenou MD n (HOME sly infuse Jaspal o USE) over 24 n hours for Cancer 11 days. [place] ampicillin 2022- No Bacteremia 12g Infuse [facility] (OMNIPEN) 05-12 12,000 mg ity of IV 00:00: 05:59 (12 g) [place] prescriptio 00 :00 intravenou MD n (HOME sly infuse Jaspal o USE) over 24 n hours for Cancer 11 days. [place] ampicillin 2022- No Bacteremia 12g Infuse [facility] (OMNIPEN) 05-12 12,000 mg ity of IV 00:00: 05:59 (12 g) [place] prescriptio 00 :00 intravenou MD n (HOME sly infuse Jaspal o USE) over 24 n hours for Cancer 11 days. [place] ampicillin 2022- No Bacteremia 12g Infuse [facility] (OMNIPEN) 05-12 12,000 mg ity of IV 00:00: 05:59 (12 g) [place] prescriptio 00 :00 intravenou MD n (HOME sly infuse Jaspal o USE) over 24 n hours for Cancer 11 days. [place] ampicillin 2022- No Bacteremia 12g Infuse [facility] (OMNIPEN) 05-12 12,000 mg ity of IV 00:00: 05:59 (12 g) [place] prescriptio 00 :00 intravenou MD n (HOME sly infuse Jaspal o USE) over 24 n hours for Cancer 11 days. [place] ampicillin 2022- No Bacteremia 12g Infuse [facility] (OMNIPEN) 05-12 12,000 mg ity of IV 00:00: 05:59 (12 g) [place] prescriptio 00 :00 intravenou MD n (HOME sly infuse Jaspal o USE) over 24 n hours for Cancer 11 days. [place] sulfamethox 2022- No 1{tbl} Take 1 U nivers azole-trime 05-10 tablet by it y of thoprim 16:05: 00:00 mouth 3 Radha (BACTRIM 35 :00 (three) MD NICHOLE) 800 times a [place] mg-160 mg week n per tablet Friday, [facility] Friday [facility] and Friday. sulfamethox 2022-2022- No 1{tbl} Take 1 U nivers azole-trime 05-10 tablet by it y of thoprim 16:05: 00:00 mouth 3 Radha (BACTRIM 35 :00 (three) MD NICHOLE) 800 times a [place] mg-160 mg week n per tablet Friday, [facility] Friday [facility] and Friday. sulfamethox 2022-2022- No 1{tbl} Take 1 U nivers azole-trime 05-10 tablet by it y of thoprim 16:05: 00:00 mouth 3 Radha (BACTRIM 35 :00 (three) MD NICHOLE) 800 times a [place] mg-160 mg week n per tablet Friday, [facility] Friday Center and Friday. sulfamethox 2022-2022- No 1{tbl} Take 1 U nivers azole-trime 05-10 tablet by it y of thoprim 16:05: 00:00 mouth 3 [place]ha (BACTRIM 35 :00 (three) MD NICHOLE) 800 times a [place] mg-160 mg week n per tablet Friday, [facility] Friday [facility] and Friday. sulfamethox 2022-2022- No 1{tbl} Take 1 U nivers azole-trime 05-10 tablet by it y of thoprim 16:05: 00:00 mouth 3 [place]ha (BACTRIM 35 :00 (three) MD NICHOLE) 800 times a [place] mg-160 mg week n per tablet Friday, [facility] Friday Center and Friday. sulfamethox 2022-0 2022- No 1{tbl} Take 1 U nivers azole-trime 05-10 tablet by it y of thoprim 16:05: 00:00 mouth 3 [place] (BACTRIM 35 :00 (three) MD NICHOLE) 800 times a [place] mg-160 mg week n per tablet Friday, Cancer Friday Center and Friday. sulfamethox 2022- No 1{tbl} Take 1 U nivers azole-trime -05-10 tablet by it 16:05: 00:00 mouth 3 [place] (BACTRIM 35 :00 (three) MD NICHOLE) 800 times a [place] mg-160 mg week n per tablet Friday, Cancer Friday Center and Friday. sodium Yes Bacteremia 10mL Infuse 10 [facility] chloride 1-13 mL ity of (NS) 0.9% 00:00: intravenou [place] injection 00 sly as MD flush needed for [place] syringe line care. [facility] sodium Yes Bacteremia 10mL Infuse 10 [facility] chloride 1-13 mL ity of (NS) 0.9% 00:00: intravenou [place] injection 00 sly as MD flush needed for [place] syringe line care. [facility] sodium Yes Bacteremia 10mL Infuse 10 [facility] chloride 1-13 mL ity of (NS) 0.9% 00:00: intravenou [place] injection 00 sly as MD flush needed for [place] syringe line care. [facility] sodium Yes Bacteremia 10mL Infuse 10 [facility] chloride 1-13 mL ity of (NS) 0.9% 00:00: intravenou [place] injection 00 sly as MD flush needed for [place] syringe line care. [facility] sodium 2022- No Bacteremia 10mL Infuse 10 [facility] chloride 1-13 02-28 mL ity of (NS) 0.9% 00:00: 00:00 intravenou [place] injection 00 :00 sly as MD flush needed for [place] syringe line care. [facility] sodium 2022- No Bacteremia 10mL Infuse 10 [facility] chloride 1-13 02-28 mL ity of (NS) 0.9% 00:00: 00:00 intravenou [place] injection 00 :00 sly as MD flush needed for [place] syringe line care. [facility] sodium 2022- No Bacteremia 10mL Infuse 10 [facility] chloride 1-13 02-28 mL ity of (NS) 0.9% 00:00: 00:00 intravenou [place] injection 00 :00 sly as MD flush needed for [place] syringe line care. n [facility] hydrOXYchlo Yes 200mg Take 1 Uni vers roQUINE 1-09 tablet ity of (PLAQUENIL) 06:07: (200 mg) [place] 200 mg 49 by mouth MD tablet twice [place] daily. n [facility] sulfaSALAzi Yes 500mg Take 1 Uni vers ne 1-09 tablet ity of (AZULFIDINE 06:07: (500 mg) [place] ) 500 mg 49 by mouth MD tablet twice [place] daily. n [facility] omeprazole Yes 20mg Take 1 Unive rs (PriLOSEC) - capsule ity of 20 mg 06:07: (20 mg) by [place] capsule 48 mouth MD every [place] morning n before Cancer breakfast. [place] sulfamethox Yes 1{tbl} Take 1 [facility] hillary azole-trime -09 tablet by ity of thoprim 06:07: mouth 3 [place] (BACTRIM 48 (three) DS) 800 times a [place] mg-160 mg week n per tablet Friday, Cancer Friday Center and Friday. fentaNYL Yes Chronic 50ug Place 1 Uni vers (DURAGESIC) 1-08 pain after patch (50 ity of 50 mcg/hr 00:00: cancer mcg) on [place] transdermal 00 treatment the skin MD patch every 72 [place] hours. n Remove old Cancer patch(es) Center before replacing new patch(es). fentaNYL Yes Chronic 50ug Place 1 Uni vers (DURAGESIC) 1-08 pain after patch (50 ity of 50 mcg/hr 00:00: cancer mcg) on [place] transdermal 00 treatment the skin MD patch every 72 [place] hours. n Remove old Cancer patch(es) Center before replacing new patch(es). fentaNYL Yes Chronic 50ug Place 1 Uni vers (DURAGESIC) 1-08 pain after patch (50 ity of 50 mcg/hr 00:00: cancer mcg) on [place] transdermal 00 treatment the skin MD patch every 72 [place] hours. n Remove old Cancer patch(es) Center before replacing new patch(es). fentaNYL 2022- No Chronic 50ug Place 1 Un hillary (DURAGESIC) 05-0517 pain after patch (50 ity of 50 mcg/hr 00:00: 00:00 [place] mcg) [place] transdermal 00 :00 treatment the skin MD patch every 72 [place] hours. n Remove old Cancer patch(es) Center before replacing new patch(es). fentaNYL 2022- No Chronic 50ug Place 1 Un hillary (DURAGESIC) 05-0517 pain after patch (50 ity of 50 mcg/hr 00:00: 00:00 cancer mcg) [place] transdermal 00 :00 treatment the skin MD patch every 72 [place] hours. n Remove old Cancer patch(es) Center before replacing new patch(es). fentaNYL 2022- No Chronic 50[address] Place 1 Un hillary (DURAGESIC) 05-0517 pain after patch (50 ity of 50 mcg/hr 00:00: 00:00 cancer mcg) [place] transdermal 00 :00 treatment the skin MD patch every 72 [place] hours. n Remove old Cancer patch(es) Center before replacing new patch(es). fentaNYL 2022- No Chronic 50[address] Place 1 Un hillary (DURAGESIC) 05-0517 pain after patch (50 ity of 50 mcg/hr 00:00: 00:00 cancer mcg) [place] transdermal 00 :00 treatment the skin MD patch every 72 [place] hours. n Remove old Cancer patch(es) Center before replacing new patch(es). fentaNYL 2022- No Chronic 50[address] Place 1 Un hillary (DURAGESIC) 05-05-17 pain after patch (50 ity of 50 mcg/hr 00:00: 00:00 cancer mcg) [place] transdermal 00 :00 treatment the skin MD patch every 72 [place] hours. n Remove old Cancer patch(es) Center before replacing new patch(es). HYDROmorpho 2022- No Uncontrolle 4mg Take 1 [facility] ne 05-05 01-12 d pain tablet (4 ity of (DILAUDID) 00:00: 00:00 mg[place] 4 [place] tablet 00 :00 mouth MD every 6 [place] (six) n hours as Cancer needed for Center severe pain. HYDROmorpho 2023-0 2023- No Uncontrolle 4mg Take 1 [facility] ne 05-05-12 d pain tablet (4 ity of (DILAUDID) 00:00: 00:00 mg[place] 4 mg tablet 00 :00 mouth MD every 6 [place] (six) n hours as Cancer needed for Center severe pain. HYDROmorpho 2023-0 2023- No Uncontrolle 4mg Take 1 [facility] ne 05-05-12 d pain tablet (4 ity of (DILAUDID) 00:00: 00:00 mg[place] 4 [place] tablet 00 :00 mouth MD every 6 [place] (six) n hours as Cancer needed for Center severe pain. HYDROmorpho 2023-0 2023- No Uncontrolle 4mg Take 1 [facility] ne 05-05-12 d pain tablet (4 ity of (DILAUDID) 00:00: 00:00 mg[place] 4 [place] tablet 00 :00 mouth MD every 6 [place] (six) n hours as Cancer needed for Center severe pain. HYDROmorpho 2023-0 2023- No Uncontrolle 4mg Take 1 [facility] ne 05-05-12 d pain tablet (4 ity of (DILAUDID) 00:00: 00:00 mg[place] 4 [place] tablet 00 :00 mouth MD every 6 [place] (six) n hours as Cancer needed for Center severe pain. HYDROmorpho 2023-0 2023- No Uncontrolle 4mg Take 1 [facility] ne 05-05-12 d pain tablet (4 ity of (DILAUDID) 00:00: 00:00 mg[place] 4 [place] tablet 00 :00 mouth MD every 6 [place] (six) n hours as Cancer needed for Center severe pain. HYDROmorpho 2023-0 2023- No Uncontrolle 4mg Take 1 [facility] ne 05-05-12 d pain tablet (4 ity of (DILAUDID) 00:00: 00:00 mg[place] 4 [place] tablet 00 :00 mouth MD every 6 [place] (six) n hours as Cancer needed for Center severe pain. HYDROmorpho 2023-0 2023- No Uncontrolle 4mg Take 1 [facility] ne 08 01-12 d pain tablet (4 ity of (DILAUDID) 00:00: 00:00 mg[place] 4 [place] tablet 00 :00 mouth MD every 6 [place] (six) n hours as Cancer needed for Center severe pain. carbidopa-l Yes 25{tbl} Take Uni vers evodopa 1-05 25-250 ity of (SINEMET) 00:00: tablets by [place] 25-250 mg 00 mouth 3 MD per tablet (three) Jaspal o times a n day. Cancer Center carbidopa-l Yes 1{tbl} Take 1 Un hillary evodopa 1-05 tablet by ity of (SINEMET) 00:00: mouth 3 [place] 25-250 mg 00 (three) MD per tablet times a Jaspal o day. n Cancer Center carbidopa-l Yes 1{tbl} Take 1 [facility] evodopa 1-05 tablet by ity of (SINEMET) 00:00: mouth 3 [place] 25-250 mg 00 (three) MD per tablet times a [place]al o day. n Cancer Center carbidopa-l Yes 1{tbl} Take 1 [facility] evodopa 1-05 tablet by ity of (SINEMET) 00:00: mouth 3 [place] 25-250 mg 00 (three) MD per tablet times a Jaspal o day. n Cancer Center carbidopa-l Yes 1{tbl} Take 1 [facility] evodopa 1-05 tablet by ity of (SINEMET) 00:00: mouth 3 [place] 25-250 mg 00 (three) MD per tablet times a Jaspal o day. n Cancer Center carbidopa-l Yes 1{tbl} Take 1 [facility] evodopa 1-05 tablet by ity of (SINEMET) 00:00: mouth 3 [place] 25-250 mg 00 (three) MD per tablet times a Jaspal o day. n Cancer Center carbidopa-l Yes 1{tbl} Take 1 [facility] evodopa 1-05 tablet by ity of (SINEMET) 00:00: mouth 3 [place] 25-250 mg 00 (three) MD per tablet times a Jaspal o day. [facility] carbidopa-l 2022-0 Yes 1{tbl} Take 1 Un hillary evodopa 1-05 tablet by ity of (SINEMET) 00:00: mouth 3 [place] 25-250 mg 00 (three) MD per tablet times a Jaspal o day. [facility] carbidopa-l 3-0 2023- Yes 1{tbl} Q.[id number] Take 1 [facility] evodopa 1-08 26- [id number] tablet by st (Sinemet) 00:00: 05:59 3D mouth 3 [facility] 25-250 mg 00 :00 (three) l per tablet times a day. carbidopa-l 2022-0 2023- Yes 1{tbl} Q.[id number] Take 1 [facility] evodopa 05-[id number] (Sinemet) 00:00: 05:59 3D mouth 3 [facility] 25-250 mg 00 :00 (three) l per tablet times a day. carbidopa-l 2022-0 2023- Yes 1{tbl} Q.[id number] Take 1 [facility] evodopa 1-08 26- [id number] tablet by [facility] (Sinemet) 00:00: 05:59 3D mouth 3 [facility] 25-250 mg 00 :00 (three) l per tablet times a day. carbidopa-l 2022-0 2023- Yes 1{tbl} Q.[id number] Take 1 [facility] evodopa 05-[id number] (Sinemet) 00:00: 05:59 3D mouth 3 [facility] 25-250 mg 00 :00 (three) l per tablet times a day. carbidopa-l 2022-0 2023- Yes 1{tbl} Q.[id number] Take 1 [facility] evodopa 05-02- [id number] tablet by st (Sinemet) 00:00: 05:59 3D mouth 3 [facility] 25-250 mg 00 :00 (three) l per tablet times a day. carbidopa-l 3-0 2023- Yes 1{tbl} Q.[id number] Take 1 [facility] evodopa 05-[id number] (Sinemet) 00:00: 05:59 3D mouth 3 [facility] 25-250 mg 00 :00 (three) l per tablet times a day. carbidopa-l 2023- Yes 1{tbl} Q.[id number] Take 1 [facility] evodopa 105-[id number] (Sinemet) 00:00: 05:59 3D mouth 3 [facility] 25-250 mg 00 :00 (three) l per tablet times a day. carbidopa-l 2023- Yes 1{tbl} Q.[id number] Take 1 [facility] evodopa 05-[id number] (Sinemet) 00:00: 05:59 3D mouth 3 [facility] 25-250 mg 00 :00 (three) l per tablet times a day. carbidopa-l 2023- Yes 1{tbl} Q.[id number] Take 1 [facility] evodopa 05-[id number] (Sinemet) 00:00: 05:59 3D mouth 3 [facility] 25-250 mg 00 :00 (three) l per tablet times a day. carbidopa-l 2023- Yes 1{tbl} Q.[id number] Take 1 [facility] evodopa 05-[id number] (Sinemet) 00:00: 05:59 3D mouth 3 [facility] 25-250 mg 00 :00 (three) l per tablet times a day. gabapentin 2021-04 Yes 900mg Take 1.5 Un hillary (NEURONTIN) 2-23 tablets ity o f 600 mg 00:00: (900 mg) [place] tablet 00 by mouth 3 (three) [place] times a n day. [facility] gabapentin 2021-04 Yes 900mg Take 1.5 Un hillary (NEURONTIN) 2-23 tablets ity o f 600 mg 00:00: (900 mg) [place] tablet 00 by mouth 3 (three) [place] times a n day. [facility] gabapentin 2021-04 Yes 900mg Take 1.5 Un hillary (NEURONTIN) 2-23 tablets ity o f 600 mg 00:00: (900 mg) [place] tablet 00 by mouth 3 MD (three) [place] times a n day. Cancer Center gabapentin 2021-04 Yes 900mg Take 1.5 Un hillary (NEURONTIN) 2-23 tablets ity o f 600 mg 00:00: (900 mg) [place] tablet 00 by mouth 3 MD (three) [place] times a n day. [facility] Center gabapentin 2021-04 Yes 900mg Take 1.5 Un hillary (NEURONTIN) 2-23 tablets ity o f 600 mg 00:00: (900 mg) [place] tablet 00 by mouth 3 MD (three) [place] times a n day. Cancer Center gabapentin 2021-04- No 900mg Take 1.5 U nivers (NEURONTIN) 2-20 06-28 tablets ity of 600 mg 00:00: 00:00 (900 mg) [place] tablet 00 :00 by mouth 3 MD (three) [place] times a n day. [facility] Center gabapentin 2021-04- No 900mg Take 1.5 U nivers (NEURONTIN) 2-20 06- tablets ity of 600 mg 00:00: 00:00 (900 mg) [place] tablet 00 :00 by mouth 3 MD (three) [place] times a n day. Cancer Center gabapentin 2021-04- No 900mg Take 1.5 U nivers (NEURONTIN) -20 06- tablets ity of 600 mg 00:00: 00:00 (900 mg) [place] tablet 00 :00 by mouth 3 MD (three) [place] times a n day. Cancer [place] HYDROmorpho 2021-04- No Uncontrolle 4mg Take 1 [facility] ne 06-19- d pain tablet (4 ity of (DILAUDID) 00:00: 00:00 mg[place] 4 mg tablet 00 :00 mouth MD every 6 [place] (six) n hours as Cancer needed for Center severe pain. HYDROmorpho 2021-04- No Uncontrolle 4mg Take 1 [facility] ne 06-19- d pain tablet (4 ity of (DILAUDID) 00:00: 00:00 mg[place] 4 mg tablet 00 :00 mouth MD every 6 [place] (six) n hours as Cancer needed for Center severe pain. HYDROmorpho 2021-04- No Uncontrolle 4mg Take 1 [facility] ne 2-22 -06 d pain tablet (4 ity of (DILAUDID) 00:00: 00:00 mg[place] 4 mg tablet 00 :00 mouth MD every 6 [place] (six) n hours as Cancer needed for Center severe pain. HYDROmorpho 2021-04- No Uncontrolle 4mg Take 1 [facility] ne 2-19 05-06 d pain tablet (4 ity of (DILAUDID) 00:00: 00:00 mg[place] 4 mg tablet 00 :00 mouth MD every 6 [place] (six) n hours as Cancer needed for Center severe pain. HYDROmorpho 2021-04- No Uncontrolle 4mg Take 1 [facility] ne 2-19 05- d pain tablet (4 ity of (DILAUDID) 00:00: 00:00 mg[place] 4 mg tablet 00 :00 mouth MD every 6 [place] (six) n hours as Cancer needed for Center severe pain. HYDROmorpho 2021-04- No Uncontrolle 4mg Take 1 [facility] ne 2-19 05-06 d pain tablet (4 ity of (DILAUDID) 00:00: 00:00 mg) [place] 4 mg tablet 00 :00 mouth MD every 6 [place] (six) n hours as Cancer needed for Center severe pain. HYDROmorpho 2021-04- No Uncontrolle 4mg Take 1 [facility] ne 2-19 05-06 d pain tablet (4 ity of (DILAUDID) 00:00: 00:00 mg) [place] 4 mg tablet 00 :00 mouth MD every 6 [place] (six) n hours as Cancer needed for Center severe pain. HYDROmorpho 2021-04- No Uncontrolle 4mg Take 1 [facility] ne 2-22 -06 d pain tablet (4 ity of (DILAUDID) 00:00: 00:00 mg[place] 4 mg tablet 00 :00 mouth MD every 6 [place] (six) n hours as Cancer needed for Center severe pain. sodium 2021-04 Yes Diffuse Inject 10 Uni vers chloride 2-02 large mL (1 ity of (NS) 0.9% 00:00: B-cell syringe) [place] flush 00 lymphoma, into each MD syringe 10 not lumen of [place] so mL otherwise central n specified venous Cancer catheter Center daily as directed. sodium 2021-04 Yes Diffuse Inject 10 Uni vers chloride 2-02 large mL (1 ity of (NS) 0.9% 00:00: B-cell syringe) [place] flush 00 lymphoma, into each MD syringe 10 not lumen of [place] so mL otherwise central n specified venous Cancer catheter Center daily as directed. sodium 2021-04 Yes Diffuse Inject 10 Uni vers chloride 2-02 large mL (1 ity of (NS) 0.9% 00:00: B-cell syringe) [place] flush 00 lymphoma, into each MD syringe 10 not lumen of [place] so mL otherwise central n specified venous Cancer catheter Center daily as directed. sodium 2021-04 Yes Diffuse Inject 10 Uni vers chloride 2-02 large mL (1 ity of (NS) 0.9% 00:00: B-cell syringe) [place] flush 00 lymphoma, into each MD syringe 10 not lumen of [place] so mL otherwise central n specified venous Cancer catheter Center daily as directed. sodium 2021-04 Yes Diffuse Inject 10 Uni vers chloride 2-02 large mL (1 ity of (NS) 0.9% 00:00: B-cell syringe) [place] flush 00 lymphoma, into each MD syringe 10 not lumen of [place] so mL otherwise central n specified venous Cancer catheter Center daily as directed. sodium 2021-04 Yes Diffuse Inject 10 Uni vers chloride 2-02 large mL (1 ity of (NS) 0.9% 00:00: B-cell syringe) [place] flush 00 lymphoma, into each MD syringe 10 not lumen of [place] so mL otherwise central n specified venous Cancer catheter Center daily as directed. sodium 2021-04 Yes Diffuse Inject 10 Uni vers chloride 2-02 large mL (1 ity of (NS) 0.9% 00:00: B-cell syringe) [place] flush 00 lymphoma, into each MD syringe 10 not lumen of [place] so mL otherwise central n specified venous Cancer catheter Center daily as directed. sodium 2021-04 Yes Diffuse Inject 10 Uni vers chloride 2-02 large mL (1 ity of (NS) 0.9% 00:00: B-cell syringe) [place] flush 00 lymphoma, into each MD syringe 10 not lumen of [place] so mL otherwise central n specified venous Cancer catheter Center daily as directed. metroNIDAZO 2021-04- No Diffuse 500mg Take 1 [facility] LE (FlagyL) 05-19 large tablet ity of 500 mg 00:00: 05:59 B-cell (500 mg) [place] tablet 00 :00 lymphoma, by mouth 3 MD not (three) [place] otherwise times a n specified day for 10 Canc er days. [place] metroNIDAZO 2021-04- No Diffuse 500mg Take 1 [facility] LE (FlagyL) 05-19 large tablet ity of 500 mg 00:00: 05:59 B-cell (500 mg) [place] tablet 00 :00 lymphoma, by mouth 3 MD not (three) [place] otherwise times a n specified day for 10 Canc er days. [place] metroNIDAZO 2021-04- No Diffuse 500mg Take 1 [facility] LE (FlagyL) 05-19 large tablet ity of 500 mg 00:00: 05:59 B-cell (500 mg) [place] tablet 00 :00 lymphoma, by mouth 3 MD not (three) [place] otherwise times a n specified day for 10 Canc er days. [place] metroNIDAZO 2021-04- No Diffuse 500mg Take 1 [facility] LE (FlagyL) 05-19 large tablet ity of 500 mg 00:00: 05:59 B-cell (500 mg) [place] tablet 00 :00 lymphoma, by mouth 3 MD not (three) [place] otherwise times a n specified day for 10 Canc er days. [place] metroNIDAZO 2021-04- No Diffuse 500mg Take 1 [facility] LE (FlagyL) 05-19 large tablet ity of 500 mg 00:00: 05:59 B-cell (500 mg) [place] tablet 00 :00 lymphoma, by mouth 3 MD not (three) [place] otherwise times a n specified day for 10 Canc er days. [place] metroNIDAZO 2021-04- No Diffuse 500mg Take 1 [facility] LE (FlagyL) 05-19 large tablet ity of 500 mg 00:00: 05:59 B-cell (500 mg) [place] tablet 00 :00 lymphoma, by mouth 3 MD not (three) [place]o otherwise times a n specified day for 10 Canc er days. Center metroNIDAZO 2021-04- No Diffuse 500mg Take 1 [facility] LE (FlagyL) 05-19 large tablet ity of 500 mg 00:00: 05:59 B-cell (500 mg) [place] tablet 00 :00 lymphoma, by mouth 3 MD not (three) [place]o otherwise times a n specified day for 10 Canc er days. [place] metroNIDAZO 2021-04- No Diffuse 500mg Take 1 [facility] LE (FlagyL) 05-19 large tablet ity of 500 mg 00:00: 05:59 B-cell (500 mg) [place] tablet 00 :00 lymphoma, by mouth 3 MD not (three) [place]o otherwise times a n specified day for 10 Canc er days. Center fentaNYL 2021-04- No Chronic [address] Place 1 Un [facility]illary (DURAGESIC) 05-0506 pain after patch (50 ity of 50 mcg/hr 00:00: 00:00 [place] mcg[place] transdermal 00 :00 treatment the skin MD patch every 72 [place] hours. n Remove old Cancer patch(es) Center before replacing new patch(es). fentaNYL 2021-04- No Chronic [address] Place 1 Un [facility] (DURAGESIC) 05-05- pain after patch (50 ity of 50 mcg/hr 00:00: 00:00 cancer mcg) [place] transdermal 00 :00 treatment the skin MD patch every 72 [place] hours. n Remove old Cancer patch(es) Center before replacing new patch(es). fentaNYL 2021-04- No Chronic [address] Place 1 Un hillary (DURAGESIC) 05-0506 pain after patch (50 ity of 50 mcg/hr 00:00: 00:00 cancer mcg) [place] transdermal 00 :00 treatment the skin MD patch every 72 [place] hours. n Remove old Cancer patch(es) Center before replacing new patch(es). fentaNYL 2021-04- No Chronic [address] Place 1 Un hillary (DURAGESIC) 05-0506 pain after patch (50 ity of 50 mcg/hr 00:00: 00:00 cancer mcg) [place] transdermal 00 :00 treatment the skin MD patch every 72 [place] hours. n Remove old Cancer patch(es) Center before replacing new patch(es). fentaNYL 2021-04- No Chronic [address] Place 1 Un hillary (DURAGESIC) 05-05-06 pain after patch (50 ity of 50 mcg/hr 00:00: 00:00 cancer mcg) [place] transdermal 00 :00 treatment the skin MD patch every 72 [place] hours. n Remove old Cancer patch(es) Center before replacing new patch(es). fentaNYL 2021-04- No Chronic [address] Place 1 Un hillary (DURAGESIC) 05-05-06 pain after patch (50 ity of 50 mcg/hr 00:00: 00:00 cancer mcg) [place] transdermal 00 :00 treatment the skin MD patch every 72 [place] hours. n Remove old Cancer patch(es) Center before replacing new patch(es). fentaNYL 2021-04- No Chronic [address] Place 1 Un hillary (DURAGESIC) 05-05- pain after patch (50 ity of 50 mcg/hr 00:00: 00:00 cancer mcg) [place] transdermal 00 :00 treatment the skin MD patch every 72 [place] hours. n Remove old Cancer patch(es) Center before replacing new patch(es). fentaNYL 2021-04- No Chronic [address] Place 1 Un hillary (DURAGESIC) 05-05-06 pain after patch (50 ity of 50 mcg/hr 00:00: 00:00 cancer mcg[place] transdermal 00 :00 treatment the skin MD patch every 72 [place] hours. n Remove old Cancer patch(es) Center before replacing new patch(es). predniSONE 2021-04 Yes Diffuse 80mg Take 8 [facility] (DELTASONE) 1- large tablets ity of 10 mg 00:00: [place] mouth MD not daily. [place] otherwise Take days n specified 1-5 of [facility] py. predniSONE 2021-04- No Diffuse 80mg Take 8 U nivers (DELTASONE) 04-28 01-16 large tablets ity of 10 mg 00:00: 00:00 B-cell (80 mg) by [place] tablet 00 :00 lymphoma, mouth MD not daily. [place] otherwise Take days n specified 1-5 of [facility] [place] py. predniSONE 2021-04- No Diffuse 80mg Take 8 U nivers (DELTASONE) 04-28 large tablets ity of 10 mg 00:00: 00:00 B-cell (80 mg) [place] tablet 00 :00 lymphoma, mouth MD not daily. [place] otherwise Take days n specified 1-5 of [facility] py. predniSONE 2021-04- No Diffuse 80mg Take 8 U nivers (DELTASONE) 04-28 large tablets ity of 10 mg 00:00: 00:00 B-cell (80 mg) [place] tablet 00 :00 lymphoma, mouth MD not daily. [place] otherwise Take days n specified 1-5 of [facility] [place] py. predniSONE 2021-04- No Diffuse 80mg Take 8 U nivers (DELTASONE) 04-28 large tablets ity of 10 mg 00:00: 00:00 B-cell (80 mg) [place] tablet 00 :00 lymphoma, mouth MD not daily. [place] otherwise Take days n specified 1-5 of [facility] [place] py. predniSONE 2021-04- No Diffuse 80mg Take 8 U nivers (DELTASONE) 04-28 large tablets ity of 10 mg 00:00: 00:00 B-cell (80 mg) [place] tablet 00 :00 lymphoma, mouth MD not daily. [place] otherwise Take days n specified 1-5 of [facility] [place] py. predniSONE 2021-04- No Diffuse 80mg Take 8 U nivers (DELTASONE) 04-28 large tablets ity of 10 mg 00:00: 00:00 B-cell (80 mg) [place] tablet 00 :00 lymphoma, mouth MD not daily. [place] otherwise Take days n specified 1-5 of [facility] [place] py. predniSONE 2021-04- No Diffuse 80mg Take 8 U nivers (DELTASONE) 04-28 large tablets ity of 10 mg 00:00: 00:00 B-cell (80 mg) [place] tablet 00 :00 lymphoma, mouth not daily. [place] otherwise Take days n specified 1-5 of [facility] py. ondansetron 2021-04 Yes Diffuse 8mg Take 1 U nivers (Zofran) 8 0-12 large tablet (8 ity of mg tablet 00:00: B-cell mg) by [facility] lymphoma, mouth MD not every 8 [place] otherwise (eight) n specified hours as Cancer needed for Center nausea or vomiting. ondansetron 2021-04 Yes Diffuse 8mg Take 1 U nivers (Zofran) 8 0-12 large tablet (8 ity of mg tablet 00:00: B-cell mg) by [facility] 00 lymphoma, mouth not every 8 [place] otherwise (eight) n specified hours as Cancer needed for Center nausea or vomiting. ondansetron 2021-04 Yes Diffuse 8mg Take 1 [facility] nivers (Zofran) 8 0-12 large tablet (8 ity of mg tablet 00:00: B-cell mg) by [facility] lymphoma mouth not every 8 [place] otherwise (eight) n specified hours as Cancer needed for Center nausea or vomiting. ondansetron 2021-04 Yes Diffuse 8mg Take 1 [facility] nivers (Zofran) 8 0-12 large tablet (8 ity of mg tablet 00:00: B-cell mg) by [facility] 00 lymphoma, mouth not every 8 [place] otherwise (eight) n specified hours as Cancer needed for Center nausea or vomiting. ondansetron 2021-04 Yes Diffuse 8mg Take 1 [facility] nivers (Zofran) 8 0-12 large tablet (8 ity of mg tablet 00:00: B-cell mg) by [facility] 00 lymphoma mouth not every 8 [place] otherwise (eight) n specified hours as Cancer needed for Center nausea or vomiting. ondansetron 2021-04 Yes Diffuse 8mg Take 1 [facility] nivers (Zofran) 8 0-12 large tablet (8 ity of mg tablet 00:00: B-cell mg) by [facility] 00 lymphoma mouth not every 8 [place] otherwise (eight) n specified hours as Cancer needed for Center nausea or vomiting. ondansetron 2021-04 Yes Diffuse 8mg Take 1 [facility] nivers (Zofran) 8 0-12 large tablet (8 ity of mg tablet 00:00: [place], mouth [place] not every 8 [place] otherwise (eight) n specified hours as Cancer needed for Center nausea or vomiting. ondansetron 2021-04 Yes Diffuse 8mg Take 1 [facility] (Zofran) 8 0-12 large tablet (8 ity of mg tablet 00:00: [place]cell [place] lymphoma, mouth MD not every 8 [place] otherwise (eight) n specified hours as Cancer needed for Center nausea or vomiting. HYDROmorpho 2021-04- No Uncontrolle 4mg Take 1 [facility] 0-[facility] 12-22 d pain tablet (4 ity of (DILAUDID) 00:00: 00:[place] 00 :00 mouth MD every 6 [place] (six) n hours as Cancer needed for Center severe pain. HYDROmorpho 2021-04- No Uncontrolle 4mg Take 1 [facility] 0-08 12-22 d pain tablet (4 ity of (DILAUDID) 00:00: 00:00 mg[place] tablet 00 :00 mouth MD every 6 [place] (six) n hours as Cancer needed for Center severe pain. HYDROmorpho 2021-04- No Uncontrolle 4mg Take 1 [facility] ne 0-08 12-22 d pain tablet (4 ity of (DILAUDID) 00:00: 00:00 mg[place] tablet 00 :00 mouth MD every 6 [place] (six) n hours as Cancer needed for Center severe pain. HYDROmorpho 2021-04- No Uncontrolle 4mg Take 1 [facility] 0-08 12-22 d pain tablet (4 ity of (DILAUDID) 00:00: 00:00 mg[place] tablet 00 :00 mouth MD every 6 [place] (six) n hours as Cancer needed for Center severe pain. HYDROmorpho 2021-04- No Uncontrolle 4mg Take 1 [facility] 0-08 12-22 d pain tablet (4 ity of (DILAUDID) 00:00: 00:00 mg[place] tablet 00 :00 mouth MD every 6 [place] (six) n hours as Cancer needed for Center severe pain. HYDROmorpho 2021-04- No Uncontrolle 4mg Take 1 [facility] 0-[facility] 12-22 d pain tablet (4 ity of (DILAUDID) 00:00: 00:00 mg[place] tablet 00 :00 mouth MD every 6 [place] (six) n hours as Cancer needed for Center severe pain. HYDROmorpho 2021-04- No Uncontrolle 4mg Take 1 [facility] 0-08 12-22 d pain tablet (4 ity of (DILAUDID) 00:00: 00:00 mg[place] tablet 00 :00 mouth MD every 6 [place] (six) n hours as Cancer needed for Center severe pain. HYDROmorpho 2021-04- No Uncontrolle 4mg Take 1 [facility] 0-08 12-22 d pain tablet (4 ity of (DILAUDID) 00:00: 00:00 mg[place] tablet 00 :00 mouth MD every 6 [place] (six) n hours as Cancer needed for Center severe pain. fentaNYL 2021-04- No Chronic 50ug Place 1 Un hillary (DURAGESIC) 0-08 11-04 pain after patch (50 ity of 50 mcg/hr 00:00: 00:00 [place] mcg[place] transdermal 00 :00 treatment the skin MD patch every 72 [place] hours. n Remove old Cancer patch(es) Center before replacing new patch(es). fentaNYL 2021-[address] [facility]illary (DURAGESIC) 0-08 11-04 pain after patch (50 ity of 50 mcg/hr 00:00: 00:00 cancer mcg[place] transdermal 00 :00 treatment the skin MD patch every 72 [place] hours. n Remove old Cancer patch(es) Center before replacing new patch(es). fentaNYL 2021-04- No Chronic 50ug Place 1 Un [facility]illary (DURAGESIC) 0-08 11-04 pain after patch (50 ity of 50 mcg/hr 00:00: 00:00 cancer mcg) [place] transdermal 00 :00 treatment the skin MD patch every 72 [place] hours. n Remove old Cancer patch(es) Center before replacing new patch(es). fentaNYL 2021-04- No Chronic 50ug Place 1 Un hillary (DURAGESIC) 0-08 11-04 pain after patch (50 ity of 50 mcg/hr 00:00: 00:00 cancer mcg) [place] transdermal 00 :00 treatment the skin MD patch every 72 [place] hours. n Remove old Cancer patch(es) Center before replacing new patch(es). fentaNYL 2021-04- No Chronic 50[address] Place 1 Un h[facility] (DURAGESIC) 0-08 11-04 pain after patch (50 ity of 50 mcg/hr 00:00: 00:00 cancer mcg) [place] transdermal 00 :00 treatment the skin MD patch every 72 [place] hours. n Remove old Cancer patch(es) Center before replacing new patch(es). fentaNYL 2021-04- No Chronic 50[address] Place 1 Un [facility] (DURAGESIC) 0-08 11-04 pain after patch (50 ity of 50 mcg/hr 00:00: 00:00 cancer mcg) [place] transdermal 00 :00 treatment the skin MD patch every 72 [place] hours. n Remove old Cancer patch(es) Center before replacing new patch(es). fentaNYL 2021-04- No Chronic 50ug Place 1 Un hillary (DURAGESIC) 0-08 11-04 pain after patch (50 ity of 50 mcg/hr 00:00: 00:00 cancer mcg) [place] transdermal 00 :00 treatment the skin MD patch every 72 [place] hours. n Remove old Cancer patch(es) Center before replacing new patch(es). fentaNYL 2021-04- No Chronic 50ug Place 1 Un hillary (DURAGESIC) 0-08 11-04 pain after patch (50 ity of 50 mcg/hr 00:00: 00:00 cancer mcg[place] transdermal 00 :00 treatment the skin MD patch every 72 [place] hours. n Remove old Cancer patch(es) Center before replacing new patch(es). entecavir Yes Diffuse .5mg Take 1 [facility] vers (BARACLUDE) 9-21 large tablet ity o f 0.5 mg 00:00: B-cell (0.5 mg) [place] tablet 00 lymphoma, by mouth MD not daily. [place] otherwise n specified Cancer Center valACYclovi Yes Diffuse 500mg Take 1 Univers r (VALTREX) 9-21 large tablet ity o f 500 mg 00:00: B-cell (500 mg) [place] tablet 00 lymphoma, by mouth MD not daily. [place] otherwise n specified Cancer Center entecavir Yes Diffuse .5mg Take 1 [facility] vers (BARACLUDE) 9-21 large tablet ity o f 0.5 mg 00:00: B-cell (0.5 mg) [place] tablet 00 lymphoma, by mouth MD not daily. [place] otherwise n specified Cancer Center valACYclovi Yes Diffuse 500mg Take 1 [facility] r (VALTREX) 9-21 large tablet ity o f 500 mg 00:00: B-cell (500 mg) [place] tablet 00 lymphoma, by mouth MD not daily. [place] otherwise n specified Cancer Center entecavir Yes Diffuse .5mg Take 1 [facility] vers (BARACLUDE) 9-21 large tablet ity o f 0.5 mg 00:00: B-cell (0.5 mg) [place] tablet 00 lymphoma, by mouth MD not daily. [place] otherwise n specified Cancer Center valACYclovi Yes Diffuse 500mg Take 1 [facility] r (VALTREX) 9-21 large tablet ity o f 500 mg 00:00: B-cell (500 mg) [place] tablet 00 lymphoma, by mouth MD not daily. [place] otherwise n specified Cancer Center entecavir Yes Diffuse .5mg Take 1 [facility] vers (BARACLUDE) 9-21 large tablet ity o f 0.5 mg 00:00: B-cell (0.5 mg) [place] tablet 00 lymphoma, by mouth MD not daily. [place] otherwise n specified Cancer Center valACYclovi Yes Diffuse 500mg Take 1 Univers r (VALTREX) 9-21 large tablet ity o f 500 mg 00:00: B-cell (500 mg) [place] tablet 00 lymphoma, by mouth MD not daily. [place] otherwise n specified Cancer Center entecavir Yes Diffuse .5mg Take 1 [facility] vers (BARACLUDE) 9-21 large tablet ity o f 0.5 mg 00:00: B-cell (0.5 mg) [place] tablet 00 lymphoma, by mouth MD not daily. [place] otherwise n specified Cancer Center valACYclovi Yes Diffuse 500mg Take 1 [facility] r (VALTREX) 9-21 large tablet ity o f 500 mg 00:00: B-cell (500 mg) [place] tablet 00 lymphoma, by mouth MD not daily. [place] otherwise n specified Cancer Center entecavir Yes Diffuse .5mg Take 1 [facility] vers (BARACLUDE) 9-21 large tablet ity o f 0.5 mg 00:00: B-cell (0.5 mg) [place] tablet 00 lymphoma, by mouth MD not daily. [place] otherwise n specified Cancer Center valACYclovi Yes Diffuse 500mg Take 1 [facility] r (VALTREX) 9-21 large tablet ity o f 500 mg 00:00: B-cell (500 mg) [place] tablet 00 lymphoma, by mouth MD not daily. [place] otherwise n specified Cancer Center entecavir Yes Diffuse .5mg Take 1 [facility] vers (BARACLUDE) 9- large tablet ity o f 0.5 mg 00:00: B-cell (0.5 mg) [place] tablet 00 lymphoma, by mouth MD not daily. [place] otherwise n specified Cancer Center valACYclovi Yes Diffuse 500mg Take 1 [facility] r (VALTREX) 9- large tablet ity o f 500 mg 00:00: B-cell (500 mg) [place] tablet 00 lymphoma, by mouth MD not daily. [place] otherwise n specified Cancer Center entecavir Yes Diffuse .5mg Take 1 [facility] vers (BARACLUDE) 9- large tablet ity o f 0.5 mg 00:00: B-cell (0.5 mg) [place] tablet 00 lymphoma, by mouth MD not daily. [place] otherwise n specified Cancer Center valACYclovi Yes Diffuse 500mg Take 1 [facility] r (VALTREX) 9-21 large tablet ity o f 500 mg 00:00: B-cell (500 mg) [place] tablet 00 lymphoma, by mouth MD not daily. [place] otherwise n specified Cancer Center predniSONE 2021-0 2021- No Diffuse 80mg Take 8 U nivers (DELTASONE) 9 11- large tablets ity of 10 mg 00:00: 00:00 B-cell (80 mg) by [place] tablet 00 :00 lymphoma, mouth MD not daily. [place] otherwise Take days n specified 1-5 of [facility] py. predniSONE 2021- No Diffuse 80mg Take 8 U nivers (DELTASONE) 01-09 large tablets ity of 10 mg 00:00: 00:00 B-cell (80 mg) by [place] tablet 00 :00 lymphoma, mouth MD not daily. [place] otherwise Take days n specified 1-5 of [facility] py. predniSONE 2021- No Diffuse 80mg Take 8 U nivers (DELTASONE) 01-09 large tablets ity of 10 mg 00:00: 00:00 B-cell (80 mg) by [place] tablet 00 :00 lymphoma, mouth MD not daily. [place] otherwise Take days n specified 1-5 of [facility] [place] py. predniSONE 2021- No Diffuse 80mg Take 8 U nivers (DELTASONE) 01-09 large tablets ity of 10 mg 00:00: 00:00 B-cell (80 mg) by [place] tablet 00 :00 lymphoma, mouth MD not daily. [place] otherwise Take days n specified 1-5 of [facility] [place] py. predniSONE 2021- No Diffuse 80mg Take 8 U nivers (DELTASONE) 01-09 large tablets ity of 10 mg 00:00: 00:00 B-cell (80 mg) by [place] tablet 00 :00 lymphoma, mouth MD not daily. [place] otherwise Take days n specified 1-5 of [facility] py. predniSONE 2021- No Diffuse 80mg Take 8 U nivers (DELTASONE) 01-09 large tablets ity of 10 mg 00:00: 00:00 B-cell (80 mg) by [place] tablet 00 :00 lymphoma, mouth MD not daily. [place] otherwise Take days n specified 1-5 of [facility] [place] py. predniSONE 2021- No Diffuse 80mg Take 8 U nivers (DELTASONE) 01-09 large tablets ity of 10 mg 00:00: 00:00 B-cell (80 mg) by [place] tablet 00 :00 lymphoma, mouth MD not daily. [place] otherwise Take days n specified 1-5 of [facility] py. predniSONE 2021- No Diffuse 80mg Take 8 U nivers (DELTASONE) 914 11- large tablets ity of 10 mg 00:00: 00:00 B-cell (80 mg) by [place] tablet 00 :00 lymphoma, mouth MD not daily. [place] otherwise Take days n specified 1-5 of [facility] py. HYDROmorpho 2021- No Uncontrolle 4mg Take 1 [facility] ne 9- 10-06 d pain tablet (4 ity of (DILAUDID) 00:00: [place] 00 :00 mouth MD every 6 [place] (six) n hours as Cancer needed for Center severe pain. HYDROmorpho 2021- No Uncontrolle 4mg Take 1 [facility] ne 9- 10-06 d pain tablet (4 ity of (DILAUDID) 00:00: 00:00 mg[place] tablet 00 :00 mouth MD every 6 [place] (six) n hours as Cancer needed for Center severe pain. HYDROmorpho 2021- No Uncontrolle 4mg Take 1 [facility] ne 9- 10-06 d pain tablet (4 ity of (DILAUDID) 00:00: 00:00 mg[place] tablet 00 :00 mouth MD every 6 [place] (six) n hours as Cancer needed for Center severe pain. HYDROmorpho 2021- No Uncontrolle 4mg Take 1 [facility] ne 9-02 10-06 d pain tablet (4 ity of (DILAUDID) 00:00: 00:00 mg[place] tablet 00 :00 mouth MD every 6 [place] (six) n hours as Cancer needed for Center severe pain. HYDROmorpho 2021- No Uncontrolle 4mg Take 1 [facility] ne 9-02 10-06 d pain tablet (4 ity of (DILAUDID) 00:00: 00:00 mg[place] tablet 00 :00 mouth MD every 6 [place] (six) n hours as Cancer needed for Center severe pain. HYDROmorpho 2021-0 2021- No Uncontrolle 4mg Take 1 [facility] ne 12-28 10-06 d pain tablet (4 ity of (DILAUDID) 00:00: 00:00 mg[place] tablet 00 :00 mouth MD every 6 [place] (six) n hours as Cancer needed for Center severe pain. HYDROmorpho 2021- No Uncontrolle 4mg Take 1 [facility] ne 12-28 10-06 d pain tablet (4 ity of (DILAUDID) 00:00: 00:00 mg[place] tablet 00 :00 mouth MD every 6 [place] (six) n hours as Cancer needed for Center severe pain. HYDROmorpho 2021- No Uncontrolle 4mg Take 1 [facility] ne 12-28 10-06 d pain tablet (4 ity of (DILAUDID) 00:00: 00:00 mg[place] tablet 00 :00 mouth MD every 6 [place] (six) n hours as Cancer needed for Center severe pain. pregabalin Yes Diffuse 75mg Take 1 Un [facility]illary (Lyrica) 75 8-28 large capsule ity of mg capsule 00:00: B-cell (75 mg) by [place] 00 lymphoma, mouth at MD not bedtime. [place] otherwise n specified Cancer Center pregabalin 2022- No Diffuse 75mg Take 1 U nivers (Lyrica) 75 8-16 large capsule ity of mg capsule 00:00: 00:00 B-cell (75 mg) by [place] 00 :00 lymphoma, mouth at MD not bedtime. [place] otherwise n specified Cancer Center pregabalin 2022- No Diffuse 75mg Take 1 U nivers (Lyrica) 75 8-25 05-16 large capsule ity of mg capsule 00:00: 00:00 B-cell (75 mg) by [place] 00 :00 lymphoma, mouth at MD not bedtime. [place] otherwise n specified Cancer Center pregabalin 2022- No Diffuse 75mg Take 1 U nivers (Lyrica) 75 8-28 -16 large capsule ity of mg capsule 00:00: 00:00 B-cell (75 mg) by [place] 00 :00 lymphoma, mouth at MD not bedtime. [place] otherwise n specified Cancer Center pregabalin 2022- No Diffuse 75mg Take 1 U nivers (Lyrica) 75 12-23 large capsule ity of mg capsule 00:00: 00:00 B-cell (75 mg) by [place] 00 :00 lymphoma, mouth at MD not bedtime. [place] otherwise n specified Cancer Center pregabalin 2022- No Diffuse 75mg Take 1 U nivers (Lyrica) 75 12-23 large capsule ity of mg capsule 00:00: 00:00 B-cell (75 mg) by [place] 00 :00 lymphoma, mouth at [place] not bedtime. [place] otherwise n specified Cancer Center pregabalin 2022- No Diffuse 75mg Take 1 U nivers (Lyrica) 75 12-23 large capsule ity of mg capsule 00:00: 00:00 B-cell (75 mg) by [place] 00 :00 lymphoma, mouth at [place] not bedtime. [place] otherwise n specified Cancer Center pregabalin 2022- No Diffuse 75mg Take 1 U nivers (Lyrica) 75 12-23 large capsule ity of mg capsule 00:00: 00:00 B-cell (75 mg) by [place] 00 :00 lymphoma, mouth at MD not bedtime. [place] otherwise n specified Cancer Center predniSONE 2021- No Diffuse 40mg Take 4 U nivers (DELTASONE) 12-23 large tablets ity of 10 mg 00:00: 00:00 B-cell (40 mg) by [place] tablet 00 :00 lymphoma, mouth MD not daily. [place] otherwise n specified Cancer Center predniSONE 2021- No Diffuse 40mg Take 4 U nivers (DELTASONE) 12-23 large tablets ity of 10 mg 00:00: 00:00 B-cell (40 mg) by [place] tablet 00 :00 lymphoma, mouth MD not daily. [place] otherwise n specified Cancer Center predniSONE 2021- No Diffuse 40mg Take 4 U nivers (DELTASONE) 12-2314 large tablets ity of 10 mg 00:00: 00:00 B-cell (40 mg) by [place] tablet 00 :00 lymphoma, mouth MD not daily. [place] otherwise n specified Cancer Center predniSONE 2021- No Diffuse 40mg Take 4 U nivers (DELTASONE) 12-2314 large tablets ity of 10 mg 00:00: 00:00 B-cell (40 mg) by [place] tablet 00 :00 lymphoma, mouth MD not daily. [place] otherwise n specified Cancer Center predniSONE 2021- No Diffuse 40mg Take 4 U nivers (DELTASONE) 12-23 large tablets ity of 10 mg 00:00: 00:00 B-cell (40 mg) by [place] tablet 00 :00 lymphoma, mouth MD not daily. [place] otherwise n specified Cancer Center predniSONE 2021- No Diffuse 40mg Take 4 U nivers (DELTASONE) 12-23 large tablets ity of 10 mg 00:00: 00:00 B-cell (40 mg) by [place] tablet 00 :00 lymphoma, mouth MD not daily. [place] otherwise n specified Cancer Center predniSONE 2021- No Diffuse 40mg Take 4 U nivers (DELTASONE) 12-23 large tablets ity of 10 mg 00:00: 00:00 B-cell (40 mg) by [place] tablet 00 :00 lymphoma, mouth MD not daily. [place] otherwise n specified Cancer Center predniSONE 2021- No Diffuse 40mg Take 4 U nivers (DELTASONE) 12-23 large tablets ity of 10 mg 00:00: 00:00 B-cell (40 mg) by [place] tablet 00 :00 lymphoma, mouth MD not daily. [place] otherwise n specified Cancer Center gabapentin Yes 300mg Q.25D Take 300 [facility] (NEURONTIN) 8-[address] 600 mg 10:38: mouth [facility] tablet [facility] (four) l times a day. omeprazole Yes 40mg QD Take 40 mg [facility] (PriLOSEC) 8-[address] 40 MG 10:38: daily. [facility] capsule 16 l gabapentin Yes 300mg Q.25D Take 300 [facility] (NEURONTIN) 8-[address] 600 mg 10:38: mouth 4 [facility] tablet 16 (four) l times a day. omeprazole 2022-0 Yes 40mg QD Take 40 mg [facility] (PriLOSEC) 8-[address] 40 MG 10:38: daily. [facility] capsule 16 l gabapentin 2022-0 Yes 300mg Q.25D Take 300 [facility] (NEURONTIN) 8-[address] 600 mg 10:38: mouth 4 [facility] tablet 16 (four) l times a day. omeprazole 2022-0 Yes 40mg QD Take 40 mg [facility] (PriLOSEC) 8-[address] 40 MG 10:38: daily. [facility] capsule 16 l gabapentin 2022-0 Yes 300mg Q.25D Take 300 [facility] (NEURONTIN) 8-[address] 600 mg 10:38: mouth 4 [facility] tablet 16 (four) l times a day. omeprazole 2022-0 Yes 40mg QD Take 40 mg [facility] (PriLOSEC) 8-[address] 40 MG 10:38: daily. [facility] capsule 16 l gabapentin 2022-0 Yes 300mg Q.25D Take 300 [facility] (NEURONTIN) 8-[address] 600 mg 10:38: mouth 4 [facility] tablet 16 (four) l times a day. omeprazole 2022-0 Yes 40mg QD Take 40 mg [facility] (PriLOSEC) 8-[address] 40 MG 10:38: daily. [facility] capsule 16 l gabapentin 2022-0 Yes 300mg Q.25D Take 300 [facility] (NEURONTIN) 8-[address] 600 mg 10:38: mouth 4 [facility] tablet 16 (four) l times a day. omeprazole 2022-0 Yes 40mg QD Take 40 mg [facility] (PriLOSEC) 8-[address] 40 MG 10:38: daily. [facility] capsule 16 l gabapentin 2022-0 Yes 300mg Q.25D Take 300 [facility] (NEURONTIN) 8-[address] 600 mg 10:38: mouth 4 [facility] tablet 16 (four) l times a day. omeprazole 2022-0 Yes 40mg QD Take 40 mg [facility] (PriLOSEC) 8-[address] 40 MG 10:38: daily. [facility] capsule 16 l gabapentin 2022-0 Yes 300mg Q.25D Take 300 [facility] (NEURONTIN) 8-[address] 600 mg 10:38: mouth 4 [facility] tablet 16 (four) l times a day. omeprazole 2022-0 Yes 40mg QD Take 40 mg [facility] (PriLOSEC) 8-[address] 40 MG 10:38: daily. [facility] capsule 16 l gabapentin 2022-0 Yes 300mg Q.25D Take 300 [facility] (NEURONTIN) 8-[address] 600 mg 10:38: mouth 4 [facility] tablet 16 (four) l times a day. omeprazole 2022-0 Yes 40mg QD Take 40 mg [facility] (PriLOSEC) 8-[address] 40 MG 10:38: daily. [facility]osp[facility] capsule 16 l gabapentin 2022-0 Yes 300mg Q.25D Take 300 [facility] (NEURONTIN) 8-[address] 600 mg 10:38: mouth 4 [facility] tablet 16 (four) l times a day. omeprazole 2022-0 Yes 40mg QD Take 40 mg [facility] (PriLOSEC) 8-[address] 40 MG 10:38: daily. [facility]osp[facility] capsule 16 l carbidopa-l 2022-0 2022- No 2{tbl} Q.[id number] Take 2 [facility]opa 12-[id number] (Sinemet) 00:00: 00:00 3D mouth 3 [facility] 25-100 mg 00 :00 (three) l per tablet times a day for 360 days. carbidopa-l 2022-0 2022- No 2{tbl} Q.[id number] Take 2 [facility] evodopa 12-[id number] (Sinemet) 00:00: 00:00 3D mouth 3 [facility] 25-100 mg 00 :00 (three) l per tablet times a day for 360 days. carbidopa-l 2022-0 2022- No 2{tbl} Q.[id number] Take 2 [facility] evodopa 12-[id number] (Sinemet) 00:00: 00:00 3D mouth 3 [facility] [place] 25-100 mg 00 :00 (three) l per tablet times a day for 360 days. carbidopa-l 2022-0 2023- No 2{tbl} Q.[id number] Take 2 [facility] evodopa 12-[id number] (Sinemet) 00:00: 00:00 3D mouth 3 [facility] [place] 25-100 mg 00 :00 (three) l per tablet times a day for 360 days. carbidopa-l 2022-0 2023- No 2{tbl} Q.[id number] Take 2 [facility] evodopa 12-[id number] (Sinemet) 00:00: 00:00 3D mouth 3 [facility] [place] 25-100 mg 00 :00 (three) l per tablet times a day for 360 days. carbidopa-l 2022-0 2023- No 2{tbl} Q.[id number] Take 2 [facility] evodopa 12-[id number] (Sinemet) 00:00: 00:00 3D mouth 3 [facility] [place] 25-100 mg 00 :00 (three) l per tablet times a day for 360 days. carbidopa-l 2022-0 2023- No 2{tbl} Q.[id number] Take 2 [facility] evodopa 12-[id number] (Sinemet) 00:00: 00:00 3D mouth 3 [facility] [place] 25-100 mg 00 :00 (three) l per tablet times a day for 360 days. carbidopa-l 2022-0 2023- No 2{tbl} Q.[id number] Take 2 [facility] evodopa 12-[id number] (Sinemet) 00:00: 00:00 3D mouth 3 [facility] [place] 25-100 mg 00 :00 (three) l per tablet times a day for 360 days. carbidopa-l 2022-0 2023- No 2{tbl} Q.[id number] Take 2 [facility] evodopa 12-[id number] (Sinemet) 00:00: 00:00 3D mouth 3 [facility] [place] 25-100 mg 00 :00 (three) l per tablet times a day for 360 days. carbidopa-l 2022-0 2023- No 2{tbl} Q.[id number] Take 2 [facility] evodopa 18 01-[id number] (Sinemet) 00:00: 00:00 3D mouth 3 [facility] 25-100 mg 00 :00 (three) l per tablet times a day for 360 days. amoxicillin 2021- No 500mg Take 500 [facility] (AMOXIL) 11-26 08- mg by ity of 500 MG 18:42: 00:00 mouth [place] tablet 42 :00 every 8 MD (eight) Anderso hours. [facility] amoxicillin 2021- No 500mg Take 500 [facility] (AMOXIL) 11-26 08- mg by ity of 500 MG 18:42: 00:00 mouth [place] tablet 42 :00 every 8 MD (eight) Anderso hours. [facility] amoxicillin 2021- No 500mg Take 500 [facility] (AMOXIL) 11-26- mg by ity of 500 MG 18:42: 00:00 mouth [place] tablet 42 :00 every 8 MD (eight) Anderso hours. [facility] amoxicillin 2021- No 500mg Take 500 [facility] (AMOXIL) 11-26- mg by ity of 500 MG 18:42: 00:00 mouth [place] tablet 42 :00 every 8 MD (eight) Anderso hours. [facility] amoxicillin 2021- No 500mg Take 500 [facility] (AMOXIL) 11-26- mg by ity of 500 MG 18:42: 00:00 mouth [place] tablet 42 :00 every 8 MD (eight) Anderso hours. [facility] amoxicillin 2021- No 500mg Take 500 [facility] (AMOXIL) 11-26 08- mg by ity of 500 MG 18:42: 00:00 mouth [place] tablet 42 :00 every 8 MD (eight) Anderso hours. [facility] amoxicillin 2021- No 500mg Take 500 [facility] (AMOXIL) 11-26- mg by ity of 500 MG 18:42: 00:00 mouth [place] tablet 42 :00 every 8 MD (eight) Anderso hours. [facility] amoxicillin 2021- No 500mg Take 500 [facility] (AMOXIL) 11-26 mg by ity of 500 MG 18:42: 00:00 mouth [place] tablet 42 :00 every 8 MD (eight) Anderso hours. [facility] 1{tbl} Take 1 U nivers evodopa 11-26 tablet by ity of (SINEMET) 14:55: 00:00 mouth [place]-100 46 :00 (three) MD mg per times a [place] tablet day. [facility] carbidopal 2021- No 1{tbl} Take 1 U nivers evodopa 11-26 tablet by ity of (SINEMET) 14:55: 00:00 mouth [place] mg-100 46 :00 (three) MD mg per times a [place] tablet day. [facility] No 1{tbl} Take 1 U nivers evodopa 11-26 tablet by ity of (SINEMET) 14:55: 00:00 mouth [place] mg-100 46 :00 (three) MD mg per times a [place] tablet day. [facility] carbidopal 2021- No 1{tbl} Take 1 U nivers evodopa 11-26 tablet by ity of (SINEMET) 14:55: 00:00 mouth 3 [place] mg-100 46 :00 (three) MD mg per times a [place] tablet day. [facility] carbidopal 2021- No 1{tbl} Take 1 U nivers evodopa 11-26 tablet by ity of (SINEMET) 14:55: 00:00 mouth [place] mg-100 46 :00 (three) MD mg per times a [place] tablet day. [facility] carbidopal 2021- No 1{tbl} Take 1 U nivers evodopa 11-26 tablet by ity of (SINEMET) 14:55: 00:00 mouth [place] mg-100 46 :00 (three) MD mg per times a [place] tablet day. [facility] carbidopa-l 2021- No 1{tbl} Take 1 U nivers evodopa 11-26 tablet by ity of (SINEMET) 14:55: 00:00 mouth [place] mg-100 46 :00 (three) MD mg per times a [place] tablet day. n [facility] carbidopa-l 2021- No 1{tbl} Take 1 U nivers evodopa 11-26 tablet by ity of (SINEMET) 14:55: 00:00 mouth 3 [place] mg-100 46 :00 (three) MD mg per times a [place] tablet day. [facility] carbidopal Yes Parkinson's 1{tbl} Take 1 [facility] evodopa 11-26 disease tablet by ity of (SINEMET) 00:00: mouth 3 [place] 25 mg-100 00 (three) MD mg per times a [place] tablet day. [facility] carbidopal 2022- No Parkinson's 1{tbl} Take 1 [facility] evodopa 11-26 disease tablet by ity of (SINEMET) 00:00: 00:00 mouth 3 [place] mg-100 00 :00 (three) MD mg per times a [place] tablet day. [facility] carbidopal 2022- No Parkinson's 1{tbl} Take 1 [facility] evodopa 11-26 disease tablet by ity of (SINEMET) 00:00: 00:00 mouth 3 [place] mg-100 00 :00 (three) MD mg per times a [place] tablet day. [facility] carbidopa-l 2022- No Parkinson's 1{tbl} Take 1 [facility] evodopa 11-26 disease tablet by ity of (SINEMET) 00:00: 00:00 mouth [place] mg-100 00 :00 (three) MD mg per times a [place] tablet day. [facility] carbidopa-l 2022- No Parkinson's 1{tbl} Take 1 [facility] evodopa 11-26 disease tablet by ity of (SINEMET) 00:00: 00:00 mouth 3 [place] mg-100 00 :00 (three) MD mg per times a [place] tablet day. [facility] carbidopa-l 2022- No Parkinson's 1{tbl} Take 1 [facility] evodopa 11-26 disease tablet by ity of (SINEMET) 00:00: 00:00 mouth 3 [place] mg-100 00 :00 (three) MD mg per times a [place] tablet day. [facility] carbidopal 2022- No Parkinson's 1{tbl} Take 1 [facility] evodopa 11-26 disease tablet by ity of (SINEMET) 00:00: 00:00 mouth 3 [place] mg-100 00 :00 (three) MD mg per times a [place] tablet day. [facility] carbidopal 2022- No Parkinson's 1{tbl} Take 1 [facility] evodopa 11-26 disease tablet by ity of (SINEMET) 00:00: 00:00 mouth 3 [place] mg-100 00 :00 (three) MD mg per times a [place] tablet day. [facility] fentaNYL 2021- No Chronic 50ug Place 1 Un hillary (DURAGESIC) 11-21 10-06 pain after patch (50 ity of 50 mcg/hr 00:00: 00:00 [place]cg[place] transdermal 00 :00 treatment the skin MD patch every 72 Anderso hours. n Remove old Cancer patch(es) Center before replacing new patch(es). fentaNYL 2021- No Chronic [address] Place 1 [facility] (DURAGESIC) 11-21 10-06 pain after patch (50 ity of 50 mcg/hr 00:00: 00:00 cancer mcg[place] transdermal 00 :00 treatment the skin MD patch every 72 Anderso hours. n Remove old Cancer patch(es) Center before replacing new patch(es). fentaNYL 2021- No Chronic 50ug Place 1 Un [facility] (DURAGESIC) 11-21 10-06 pain after patch (50 ity of 50 mcg/hr 00:00: 00:00 cancer mcg) [place] transdermal 00 :00 treatment the skin MD patch every 72 Anderso hours. n Remove old Cancer patch(es) Center before replacing new patch(es). fentaNYL 2021- No Chronic 50ug Place 1 Un hillary (DURAGESIC) 11-21 10-06 pain after patch (50 ity of 50 mcg/hr 00:00: 00:00 cancer mcg) [place] transdermal 00 :00 treatment the skin MD patch every 72 Anders[place] hours. n Remove old Cancer patch(es) Center before replacing new patch(es). fentaNYL 2021- No Chronic 50ug Place 1 Un [facility]illary (DURAGESIC) 11-21 10-06 pain after patch (50 ity of 50 mcg/hr 00:00: 00:00 cancer mcg) [place] transdermal 00 :00 treatment the skin MD patch every 72 [place] hours. n Remove old Cancer patch(es) Center before replacing new patch(es). fentaNYL 2021- No Chronic 50[address] Place 1 Un [facility]illary (DURAGESIC) 11-21 10-06 pain after patch (50 ity of 50 mcg/hr 00:00: 00:00 cancer mcg) [place] transdermal 00 :00 treatment the skin MD patch every 72 Anders[place] hours. n Remove old Cancer patch(es) Center before replacing new patch(es). fentaNYL 2021- No Chronic 50ug Place 1 Un hillary (DURAGESIC) 11-21 10-06 pain after patch (50 ity of 50 mcg/hr 00:00: 00:00 cancer mcg) [place] transdermal 00 :00 treatment the skin MD patch every 72 [place] hours. n Remove old Cancer patch(es) Center before replacing new patch(es). fentaNYL 2021- No Chronic 50ug Place 1 Un hillary (DURAGESIC) 11-21 10-06 pain after patch (50 ity of 50 mcg/hr 00:00: 00:00 cancer mcg) [place] transdermal 00 :00 treatment the skin MD patch every 72 [place]o hours. n Remove old Cancer patch(es) Center before replacing new patch(es). HYDROmorpho 2021- No Uncontrolle 4mg Take 1 [facility] ne 11-21 09-02 d pain tablet (4 ity of (DILAUDID) 00:00: 00:00 mg[place] tablet 00 :00 mouth MD every 6 [place] (six) n hours as Cancer needed for Center severe pain. HYDROmorpho 2022-0 2022- No Uncontrolle 4mg Take 1 [facility] ne 11-21- d pain tablet (4 ity of (DILAUDID) 00:00: 00:00 mg[place] 4 [place] tablet 00 :00 mouth MD every 6 [place] (six) n hours as Cancer needed for Center severe pain. HYDROmorpho 2022-0 2022- No Uncontrolle 4mg Take 1 [facility] ne 11-21 d pain tablet (4 ity of (DILAUDID) 00:00: 00:00 mg[place] tablet 00 :00 mouth MD every 6 [place] (six) n hours as Cancer needed for Center severe pain. HYDROmorpho 2022-0 2022- No Uncontrolle 4mg Take 1 [facility] ne 11-21 d pain tablet (4 ity of (DILAUDID) 00:00: 00:00 mg[place] tablet 00 :00 mouth MD every 6 [place] (six) n hours as Cancer needed for Center severe pain. HYDROmorpho 2022-0 2022- No Uncontrolle 4mg Take 1 [facility] ne 11-21- d pain tablet (4 ity of (DILAUDID) 00:00: 00:00 mg[place] 4 [place] tablet 00 :00 mouth MD every 6 [place] (six) n hours as Cancer needed for Center severe pain. HYDROmorpho 2022-0 2022- No Uncontrolle 4mg Take 1 [facility] ne 11-21- d pain tablet (4 ity of (DILAUDID) 00:00: 00:00 mg) [place] 4 mg tablet 00 :00 mouth MD every 6 [place] (six) n hours as Cancer needed for Center severe pain. HYDROmorpho 2022-0 2022- No Uncontrolle 4mg Take 1 [facility] ne 11-21- d pain tablet (4 ity of (DILAUDID) 00:00: 00:00 mg) [place] 4 mg tablet 00 :00 mouth MD every 6 [place] (six) n hours as Cancer needed for Center severe pain. HYDROmorpho 2021- No Uncontrolle 4mg Take 1 [facility] ne 11-21 09-02 d pain tablet (4 ity of (DILAUDID) 00:00: 00:00 mg) [place] 4 mg tablet 00 :00 mouth MD every 6 [place] (six) n hours as Cancer needed for Center severe pain. gabapentin Yes Uncontrolle 800mg Take 1 [facility] (NEURONTIN) 7-14 d pain tablet ity of 800 mg 00:00: (800 mg) [place] tablet 00 by mouth 3 MD (three) Anderso times a n day. Cancer Center gabapentin 2022- No Uncontrolle 800mg Take 1 [facility] (NEURONTIN) 11-0816 d pain tablet ity of 800 mg 00:00: 00:00 (800 mg) [place] tablet 00 :00 by mouth 3 MD (three) Anderso times a n day. Cancer Center gabapentin 2022- No Uncontrolle 800mg Take 1 [facility] (NEURONTIN) 11-0816 d pain tablet ity of 800 mg 00:00: 00:00 (800 mg) [place] tablet 00 :00 by mouth 3 MD (three) Anderso times a n day. Cancer Center gabapentin 2022- No Uncontrolle 800mg Take 1 [facility] (NEURONTIN) 11-0816 d pain tablet ity of 800 mg 00:00: 00:00 (800 mg) [place] tablet 00 :00 by mouth 3 MD (three) [place]o times a n day. Cancer Center gabapentin 2022- No Uncontrolle 800mg Take 1 [facility] (NEURONTIN) 11-0816 d pain tablet ity of 800 mg 00:00: 00:00 (800 mg) [place] tablet 00 :00 by mouth 3 MD (three) [place] times a n day. Cancer Center gabapentin 2021-2022- No Uncontrolle 800mg Take 1 [facility] (NEURONTIN) 11-08-16 d pain tablet ity of 800 mg 00:00: 00:00 (800 mg) [place] tablet 00 :00 by mouth 3 MD (three) Anderso times a n day. Cancer Center gabapentin 2022- No Uncontrolle 800mg Take 1 [facility] (NEURONTIN) 7-14 01-16 d pain tablet ity of 800 mg 00:00: 00:00 (800 mg) [place] tablet 00 :00 by mouth 3 MD (three) [place] times a n day. Cancer Center gabapentin 2022- No Uncontrolle 800mg Take 1 [facility] (NEURONTIN) 11-08 01-16 d pain tablet ity of 800 mg 00:00: 00:00 (800 mg) [place] tablet 00 :00 by mouth 3 MD (three) Anderso times a n day. Cancer Center fentaNYL 2021- No Lower 50ug Place 1 Univ ers (DURAGESIC) 11-08 abdominal patch (50 ity of 50 mcg/hr 00:00: 00:00 pain, mcg) [place] transdermal 00 :00 unspecified the skin MD patch every 72 [place]o hours. n Remove old Cancer patch(es) Center before replacing new patch(es). HYDROmorpho 2021- No Uncontrolle 4mg Take 1 [facility] ne 11-08 d pain tablet (4 ity of (DILAUDID) 00:00: 00:00 mg[place] tablet 00 :00 mouth MD every 6 [place] (six) n hours as Cancer needed for Center severe pain. fentaNYL 2021- No Lower 50ug Place 1 Univ ers (DURAGESIC) 11-08 abdominal patch (50 ity of 50 mcg/hr 00:00: 00:00 pain, mcg) on [place] transdermal 00 :00 unspecified the skin MD patch every 72 [place]o hours. n Remove old Cancer patch(es) Center before replacing new patch(es). HYDROmorpho 2021- No Uncontrolle 4mg Take 1 [facility] ne 11-08 d pain tablet (4 ity of (DILAUDID) 00:00: 00:00 mg[place] tablet 00 :00 mouth MD every 6 [place] (six) n hours as Cancer needed for Center severe pain. fentaNYL 2021- No Lower 50ug Place 1 Univ ers (DURAGESIC) 11-08 abdominal patch (50 ity of 50 mcg/hr 00:00: 00:00 pain, mcg) [place] transdermal 00 :00 unspecified the skin MD patch every 72 [place] hours. n Remove old Cancer patch(es) Center before replacing new patch(es). HYDROmorpho 2021- No Uncontrolle 4mg Take 1 [facility] ne 11-08 d pain tablet (4 ity of (DILAUDID) 00:00: 00:00 mg[place] tablet 00 :00 mouth MD every 6 [place] (six) n hours as Cancer needed for Center severe pain. fentaNYL 2021- No Lower 50ug Place 1 Univ ers (DURAGESIC) 11-08 abdominal patch (50 ity of 50 mcg/hr 00:00: 00:00 pain, mcg) [place] transdermal 00 :00 unspecified the skin MD patch every 72 [place] hours. n Remove old Cancer patch(es) Center before replacing new patch(es). HYDROmorpho 2021- No Uncontrolle 4mg Take 1 [facility] ne 11-08 d pain tablet (4 ity of (DILAUDID) 00:00: 00:00 mg[place] 4 [place] tablet 00 :00 mouth MD every 6 [place] (six) n hours as Cancer needed for Center severe pain. fentaNYL 2021- No Lower 50ug Place 1 Univ ers (DURAGESIC) 11-08 abdominal patch (50 ity of 50 mcg/hr 00:00: 00:00 pain, mcg) [place] transdermal 00 :00 unspecified the skin MD patch every 72 [place] hours. n Remove old Cancer patch(es) Center before replacing new patch(es). HYDROmorpho 2021- No Uncontrolle 4mg Take 1 [facility] ne 11-08 d pain tablet (4 ity of (DILAUDID) 00:00: 00:00 mg[place] 4 mg tablet 00 :00 mouth MD every 6 [place] (six) n hours as Cancer needed for Center severe pain. fentaNYL 2021- No Lower 50ug Place 1 Univ ers (DURAGESIC) 11-08 abdominal patch (50 ity of 50 mcg/hr 00:00: 00:00 pain, mcg) on [place] transdermal 00 :00 unspecified the skin MD patch every 72 [place] hours. n Remove old Cancer patch(es) Center before replacing new patch(es). HYDROmorpho 2021- No Uncontrolle 4mg Take 1 [facility] ne 11-08 d pain tablet (4 ity of (DILAUDID) 00:00: 00:00 mg[place] mg tablet 00 :00 mouth MD every 6 [place] (six) n hours as Cancer needed for Center severe pain. fentaNYL 2021- No Lower 50ug Place 1 Univ ers (DURAGESIC) 11-08 abdominal patch (50 ity of 50 mcg/hr 00:00: 00:00 pain, mcg) on [place] transdermal 00 :00 unspecified the skin MD patch every 72 [place] hours. n Remove old Cancer patch(es) Center before replacing new patch(es). HYDROmorpho 2021- No Uncontrolle 4mg Take 1 [facility] ne 11-08 d pain tablet (4 ity of (DILAUDID) 00:00: 00:00 mg[place] 4 mg tablet 00 :00 mouth MD every 6 [place] (six) n hours as Cancer needed for Center severe pain. fentaNYL 2021- No Lower 50ug Place 1 Univ ers (DURAGESIC) 11-08 abdominal patch (50 ity of 50 mcg/hr 00:00: 00:00 pain, mcg) on [place] transdermal 00 :00 unspecified the skin MD patch every 72 [place] hours. n Remove old Cancer patch(es) Center before replacing new patch(es). HYDROmorpho 2021- No Uncontrolle 4mg Take 1 [facility] ne 11-08 d pain tablet (4 ity of (DILAUDID) 00:00: 00:00 mg[place] 4 mg tablet 00 :00 mouth MD every 6 [place] (six) n hours as Cancer needed for Center severe pain. caspofungin 2021- No Diffuse Infuse [facility] (CANCIDAS) 11-08 large intravenou i ty of IV 00:00: 04:59 B-cell sly daily [place] prescriptio 00 :00 lymphoma of for 7 MD n (HOME lymph nodes days. [place] rso USE) of multiple n sites Cancer Center ertapenem 2021- No Diffuse 1000mg Infuse [facility] (INVanz) IV 11-08 large 1,000 mg it y of prescriptio 00:00: 04:59 B-cell intravenou [place] n (Home 00 :00 lymphoma of sly daily MD Use) lymph nodes for 7 [place]o of multiple days. n sites Cancer Center amoxicillin 2021- No Abscess 500mg Take 1 [facility] (AMOXIL) 11-08 with capsule ity of 500 mg 00:00: 04:59 diverticula (500 mg) [place] capsule 00 :00 r disease by mouth MD of colon every 8 Anderso (eight) n hours for Cancer 7 days. Center caspofungin 2021- No Diffuse Infuse [facility] (CANCIDAS) 11-08 large intravenou i ty of IV 00:00: 04:59 B-cell sly daily [place] prescriptio 00 :00 lymphoma of for 7 MD n (HOME lymph nodes days. [place] rso USE) of multiple n sites Cancer Center ertapenem 2021- No Diffuse 1000mg Infuse [facility] (INVanz) IV 11-08 large 1,000 mg it y of prescriptio 00:00: 04:59 B-cell intravenou [place] n (Home 00 :00 lymphoma of sly daily MD Use) lymph nodes for 7 [place]o of multiple days. n sites Cancer Center amoxicillin 2021- No Abscess 500mg Take 1 [facility] (AMOXIL) 11-08 with capsule ity of 500 mg 00:00: 04:59 diverticula (500 mg) [place] capsule 00 :00 r disease by mouth MD of colon every 8 Anderso (eight) n hours for Cancer 7 days. Center caspofungin 2021- No Diffuse Infuse [facility] (CANCIDAS) 11-08 large intravenou i ty of IV 00:00: 04:59 B-cell sly daily [place] prescriptio 00 :00 lymphoma of for 7 MD n (HOME lymph nodes days. [place] rso USE) of multiple n sites Cancer [place] ertapenem 2021- No Diffuse 1000mg Infuse [facility] (INVanz) IV 11-08 large 1,000 mg it y of prescriptio 00:00: 04:59 B-cell intravenou [place] n (Home 00 :00 lymphoma of sly daily MD Use) lymph nodes for 7 [place] of multiple days. n sites Cancer Center amoxicillin 2021- No Abscess 500mg Take 1 [facility] (AMOXIL) 11-08 with capsule ity of 500 mg 00:00: 04:59 diverticula (500 mg) [place] capsule 00 :00 r disease by mouth MD of colon every 8 Anderso (eight) n hours for Cancer 7 days. Center caspofungin 2021- No Diffuse Infuse [facility] (CANCIDAS) 11-08 large intravenou i ty of IV 00:00: 04:59 B-cell sly daily [place] prescriptio 00 :00 lymphoma of for 7 MD n (HOME lymph nodes days. [place] rso USE) of multiple n sites Cancer [place] ertapenem 2021- No Diffuse 1000mg Infuse [facility] (INVanz) IV 11-08 large 1,000 mg it y of prescriptio 00:00: 04:59 B-cell intravenou [place] n (Home 00 :00 lymphoma of sly daily MD Use) lymph nodes for 7 [place] of multiple days. n sites Cancer Center amoxicillin 2021- No Abscess 500mg Take 1 [facility] (AMOXIL) 11-08 with capsule ity of 500 mg 00:00: 04:59 diverticula (500 mg) [place] capsule 00 :00 r disease by mouth MD of colon every 8 Anderso (eight) n hours for Cancer 7 days. Center caspofungin 2021- No Diffuse Infuse [facility] (CANCIDAS) 11-08 large intravenou i ty of IV 00:00: 04:59 B-cell sly daily [place] prescriptio 00 :00 lymphoma of for 7 MD n (HOME lymph nodes days. [place] rso USE) of multiple n sites Cancer Center ertapenem 2021- No Diffuse 1000mg Infuse [facility] (INVanz) IV 11-08 large 1,000 mg it y of prescriptio 00:00: 04:59 B-cell intravenou [place] n (Home 00 :00 lymphoma of sly daily MD Use) lymph nodes for 7 [place] of multiple days. n sites Cancer Center amoxicillin 2021- No Abscess 500mg Take 1 [facility] (AMOXIL) 11-08 with capsule ity of 500 mg 00:00: 04:59 diverticula (500 mg) [place] capsule 00 :00 r disease by mouth MD of colon every 8 [place]o (eight) n hours for Cancer 7 days. Center caspofungin 2021- No Diffuse Infuse [facility] (CANCIDAS) 11-08 large intravenou i ty of IV 00:00: 04:59 B-cell sly daily [place] prescriptio 00 :00 lymphoma of for 7 MD n (HOME lymph nodes days. [place] rso USE) of multiple n sites Cancer [place] ertapenem 2021- No Diffuse 1000mg Infuse [facility] (INVanz) IV 11-08 large 1,000 mg it y of prescriptio 00:00: 04:59 B-cell intravenou [place] n (Home 00 :00 lymphoma of sly daily MD Use) lymph nodes for 7 [place]o of multiple days. n sites Cancer [place] amoxicillin 2021- No Abscess 500mg Take 1 [facility] (AMOXIL) 11-08 with capsule ity of 500 mg 00:00: 04:59 diverticula (500 mg) [place] capsule 00 :00 r disease by mouth MD of colon every 8 [place]o (eight) n hours for Cancer 7 days. [place] caspofungin 2021- No Diffuse Infuse [facility] (CANCIDAS) 11-08 large intravenou i ty of IV 00:00: 04:59 B-cell sly daily [place] prescriptio 00 :00 lymphoma of for 7 MD n (HOME lymph nodes days. [place] rso USE) of multiple n sites Cancer [place] ertapenem 2021- No Diffuse 1000mg Infuse [facility] (INVanz) IV 11-08 large 1,000 mg it y of prescriptio 00:00: 04:59 B-cell intravenou [place] n (Home 00 :00 lymphoma of sly daily MD Use) lymph nodes for 7 [place]o of multiple days. n sites Cancer [place] amoxicillin 0 2022- No Abscess 500mg Take 1 [facility] (AMOXIL) 11-08 with capsule ity of 500 mg 00:00: 04:59 diverticula (500 mg) [place] capsule 00 :00 r disease by mouth of colon every 8 [place]o (eight) n hours for Cancer 7 days. [place] caspofungin 2021- No Diffuse Infuse [facility] (CANCIDAS) 11-08 large intravenou i ty of IV 00:00: 04:59 B-cell sly daily [place] prescriptio 00 :00 lymphoma of for 7 MD n (HOME lymph nodes days. [place] rso USE) of multiple n sites Cancer Center ertapenem 2021- No Diffuse 1000mg Infuse [facility] (INVanz) IV 11-08 large 1,000 mg it y of prescriptio 00:00: 04:59 B-cell intravenou [place] n (Home 00 :00 lymphoma of sly daily MD Use) lymph nodes for 7 [place] of multiple days. n sites Cancer Center amoxicillin 2021- No Abscess 500mg Take 1 [facility] (AMOXIL) 11-08 with capsule ity of 500 mg 00:00: 04:59 diverticula (500 mg) [place] capsule 00 :00 r disease by mouth of colon every 8 [place]o (eight) n hours for Cancer 7 days. [place] entecavir 2021- No .5mg Take 0.5 Uni vers (BARACLUDE) 6-27 06-27 mg by ity of 0.5 mg 10:07: 00:00 mouth [place] tablet 23 :00 daily. MD Robert saucedo [facility] entecavir 0 2021- No .5mg Take 0.5 Uni vers (BARACLUDE) 6-27 06-27 mg by ity of 0.5 mg 10:07: 00:00 mouth [place] tablet 23 :00 daily. MD Robert saucedo [facility] entecavir 0 2021- No .5mg Take 0.5 Uni vers (BARACLUDE) 6-27 06-27 mg by ity of 0.5 mg 10:07: 00:00 mouth [place] tablet 23 :00 daily. MD Robert saucedo [facility] entecavir 0 2021- No .5mg Take 0.5 Uni vers (BARACLUDE) 6-27 06-27 mg by ity of 0.5 mg 10:07: 00:00 mouth [place] tablet 23 :00 daily. MD Robert saucedo [facility] entecavir 2021- No .5mg Take 0.5 Uni vers (BARACLUDE) 6-27 06-27 mg by ity of 0.5 mg 10:07: 00:00 mouth [place] tablet 23 :00 daily. MD Robert saucedo [facility] entecavir 2021- No .5mg Take 0.5 Uni vers (BARACLUDE) 6-27 06-27 mg by ity of 0.5 mg 10:07: 00:00 mouth [place] tablet 23 :00 daily. MD Robert saucedo [facility] entecavir 2021- No .5mg Take 0.5 Uni vers (BARACLUDE) 6-27 06-27 mg by ity of 0.5 mg 10:07: 00:00 mouth [place] tablet 23 :00 daily. MD Robert saucedo [facility] entecavir 2021- No .5mg Take 0.5 Uni vers (BARACLUDE) 6-27 06-27 mg by ity of 0.5 mg 10:07: 00:00 mouth [place] tablet 23 :00 daily. MD Robert saucedo [facility] ciprofloxac 2021- No Bladder 500mg Take 1 [facility] in HCl 10-22 fistula tablet ity of (CIPRO) 500 00:00: 00:00 (500 mg) [place] mg tablet 00 :00 by mouth MD cherelle [place] daily. n Start day Cancer before Center cystogram. Day of, and day after ciprofloxac 2021- No Bladder 500mg Take 1 [facility] in HCl 10-22 fistula tablet ity of (CIPRO) 500 00:00: 00:00 (500 mg) [place] mg tablet 00 :00 by mouth MD cherelle [place] daily. n Start day Cancer before Center cystogram. Day of, and day after ciprofloxac 2021- No Bladder 500mg Take 1 [facility] in HCl 10-22 fistula tablet ity of (CIPRO) 500 00:00: 00:00 (500 mg) [place] mg tablet 00 :00 by mouth MD twice Anderso daily. n Start day Cancer before Center cystogram. Day of, and day after ciprofloxac 2021-0 2021- No Bladder 500mg Take 1 [facility] in HCl 10-22 fistula tablet ity of (CIPRO) 500 00:00: 00:00 (500 mg) [place] mg tablet 00 :00 by mouth twice Anderso daily. n Start day Cancer before Center cystogram. Day of, and day after ciprofloxac 2021-0 2021- No Bladder 500mg Take 1 [facility] in HCl 10-22 fistula tablet ity of (CIPRO) 500 00:00: 00:00 (500 mg) [place] mg tablet 00 :00 by mouth MD twice Anderso daily. n Start day Cancer before Center cystogram. Day of, and day after ciprofloxac 2021-0 2021- No Bladder 500mg Take 1 [facility] in HCl 10-22 fistula tablet ity of (CIPRO) 500 00:00: 00:00 (500 mg) [place] mg tablet 00 :00 by mouth twice Anderso daily. n Start day Cancer before Center cystogram. Day of, and day after ciprofloxac 2021-0 2021- No Bladder 500mg Take 1 [facility] in HCl 10-22 fistula tablet ity of (CIPRO) 500 00:00: 00:00 (500 mg) [place] mg tablet 00 :00 by mouth twice Anderso daily. n Start day Cancer before Center cystogram. Day of, and day after ciprofloxac 2021-0 2021- No Bladder 500mg Take 1 [facility] in HCl 10-22 fistula tablet ity of (CIPRO) 500 00:00: 00:00 (500 mg) [place] mg tablet 00 :00 by mouth twice Anderso daily. n Start day Cancer before Center cystogram. Day of, and day after fentaNYL 2021-2021- No Chronic [address]ug Place 1 [facility] (DURAGESIC) 10-19 pain after patch (50 ity of 50 mcg/hr 00:00: 00:00 [place]cg[place] trans[place] :00 treatment the skin MD patch every 72 [place] hours. n Remove old Cancer patch(es) Center before replacing new patch(es). fentaNYL 2021- No Chronic [address]ug Place 1 [facility] (DURAGESIC) 10-19- pain after patch (50 ity of 50 mcg/hr 00:00: 00:00 [place] mcg) [place] trans[place] 00 :00 treatment the skin MD patch every 72 [place] hours. n Remove old Cancer patch(es) Center before replacing new patch(es). fentaNYL 2021- No Chronic [address]ug Place 1 [facility] (DURAGESIC) 10-19- pain after patch (50 ity of 50 mcg/hr 00:00: 00:00 cancer mcg) [place] trans[place] 00 :00 treatment the skin MD patch every 72 [place] hours. n Remove old Cancer patch(es) Center before replacing new patch(es). fentaNYL 2021- No Chronic 50ug Place 1 [facility] (DURAGESIC) 10-19- pain after patch (50 ity of 50 mcg/hr 00:00: 00:00 cancer mcg) [place] trans[place] 00 :00 treatment the skin MD patch every 72 [place] hours. n Remove old Cancer patch(es) Center before replacing new patch(es). fentaNYL 2021- No Chronic [address]ug Place 1 [facility] (DURAGESIC) 10-19- pain after patch (50 ity of 50 mcg/hr 00:00: 00:00 cancer mcg) [place] trans[place] 00 :00 treatment the skin MD patch every 72 [place] hours. n Remove old Cancer patch(es) Center before replacing new patch(es). fentaNYL 2021- No Chronic [address]ug Place 1 [facility] (DURAGESIC) 6- pain after patch (50 ity of 50 mcg/hr 00:00: 00:00 cancer mcg) [place] trans[place] 00 :00 treatment the skin MD patch every 72 [place] hours. n Remove old Cancer patch(es) Center before replacing new patch(es). fentaNYL 2021- No Chronic 50ug Place 1 [facility] (DURAGESIC) 6-27 pain after patch (50 ity of 50 mcg/hr 00:00: 00:00 cancer mcg) [place] trans[place] 00 :00 treatment the skin MD patch every 72 [place] hours. n Remove old Cancer patch(es) Center before replacing new patch(es). fentaNYL 2021-2021- No Chronic [address]ug Place 1 [facility] (DURAGESIC) 10-19 07-27 pain after patch (50 ity of 50 mcg/hr 00:00: 00:00 cancer mcg) [place] 00 :00 treatment the skin MD patch every 72 [place] hours. n Remove old Cancer patch(es) Center before replacing new patch(es). ondansetron 2021-2021- No Diffuse 8mg Take 1 [facility] (Zofran) 8 6-22 10-12 large tablet (8 it y of mg tablet 00:00: 00:00 B-cell mg) by [place] 00 :00 lymphoma, mouth MD not every 8 [place] otherwise (eight) n specified hours as Cancer needed for Center nausea or vomiting. ondansetron 2021-2021- No Diffuse 8mg Take 1 [facility] (Zofran) 8 6-22 10-12 large tablet (8 it y of mg tablet 00:00: 00:00 B-cell mg) by [place] 00 :00 lymphoma, mouth MD not every 8 [place] otherwise (eight) n specified hours as Cancer needed for Center nausea or vomiting. ondansetron 2021-2021- No Diffuse 8mg Take 1 [facility] (Zofran) 8 6-22 10-12 large tablet (8 it y of mg tablet 00:00: 00:00 B-cell mg) by [place] 00 :00 lymphoma, mouth MD not every 8 [place] otherwise (eight) n specified hours as Cancer needed for Center nausea or vomiting. ondansetron 2021-0 2021- No Diffuse 8mg Take 1 [facility] (Zofran) 8 6-22 10-12 large tablet (8 it y of mg tablet 00:00: 00:00 B-cell mg) by [place] 00 :00 lymphoma, mouth MD not every 8 [place] otherwise (eight) n specified hours as Cancer needed for Center nausea or vomiting. ondansetron 2021-0 2021- No Diffuse 8mg Take 1 [facility] (Zofran) 8 6-22 10-12 large tablet (8 it y of mg tablet 00:00: 00:00 B-cell mg) by [place] 00 :00 lymphoma, mouth MD not every 8 [place] otherwise (eight) n specified hours as Cancer needed for Center nausea or vomiting. ondansetron 2021-2021- No Diffuse 8mg Take 1 [facility] (Zofran) 8 6-22 10-12 large tablet (8 it y of mg tablet 00:00: 00:00 B-cell mg) by [place] 00 :00 lymphoma, mouth MD not every 8 [place] otherwise (eight) n specified hours as Cancer needed for Center nausea or vomiting. ondansetron 2021-2021- No Diffuse 8mg Take 1 [facility] (Zofran) 8 6-22 10-12 large tablet (8 it y of mg tablet 00:00: 00:00 B-cell mg) by [place] 00 :00 lymphoma, mouth MD not every 8 [place] otherwise (eight) n specified hours as Cancer needed for Center nausea or vomiting. ondansetron 2021-2021- No Diffuse 8mg Take 1 [facility] (Zofran) 8 6-22 10-12 large tablet (8 it y of mg tablet 00:00: 00:00 B-cell mg) by [place] 00 :00 lymphoma, mouth MD not every 8 [place] otherwise (eight) n specified hours as Cancer needed for Center nausea or vomiting. entecavir 2021-2021- No Diffuse .5mg Take 1 [facility] (BARACLUDE) 10-17 large tablet ity of 0.5 mg 00:00: 00:00 B[place]cell [place]0.5 mg[place] :[place] lymphoma, by mouth MD not daily. [place] otherwise n specified Cancer Center entecavir 2021-2021- No Diffuse .5mg Take 1 [facility] (BARACLUDE) 10-17- large tablet ity of 0.5 mg 00:00: 00:00 B[place]cell (0.5 mg) [place] 00 :00 lymphoma, by mouth MD not daily. [place] otherwise n specified Cancer Center entecavir 2021-2021- No Diffuse .5mg Take 1 [facility] (BARACLUDE) 10-17- large tablet ity of 0.5 mg 00:00: 00:00 B[place]cell (0.5 mg) [place] 00 :00 lymphoma, by mouth MD not daily. [place] otherwise n specified Cancer Center entecavir 2021- No Diffuse .5mg Take 1 [facility] (BARACLUDE) 10-17 large tablet ity of 0.5 mg 00:00: 00:00 B-cell (0.5 mg) [place] 00 :00 lymphoma, by mouth MD not daily. [place] otherwise n specified Cancer Center entecavir 2021- No Diffuse .5mg Take 1 [facility] (BARACLUDE) 10-17 large tablet ity of 0.5 mg 00:00: 00:00 B-cell (0.5 mg) [place] 00 :00 lymphoma, by mouth MD not daily. [place] otherwise n specified Cancer Center entecavir 2021- No Diffuse .5mg Take 1 [facility] (BARACLUDE) 10-17 large tablet ity of 0.5 mg 00:00: 00:00 B[place]cell (0.5 mg) [place] 00 :00 lymphoma, by mouth MD not daily. [place] otherwise n specified Cancer Center entecavir 2021- No Diffuse .5mg Take 1 [facility] (BARACLUDE) 10-17 large tablet ity of 0.5 mg 00:00: 00:00 B-cell (0.5 mg) [place] tablet 00 :00 lymphoma, by mouth MD not daily. [place] otherwise n specified Cancer Center entecavir 2021- No Diffuse .5mg Take 1 [facility] (BARACLUDE) 10-17 large tablet ity of 0.5 mg 00:00: 00:00 B[place]cell (0.5 mg) [place] 00 :00 lymphoma, by mouth MD not daily. [place] otherwise n specified Cancer Center amoxicillin 2021- No Abscess 875mg Take 1 [facility] -clavulanat 10-16 07-15 tablet ity o f e 00:00: 00:00 (875 mg) [place] (Augmentin) 00 :00 by mouth MD 875 mg-125 twice [place] mg per daily for n tablet 14 days. [facility] Center levoFLOXaci 2021- No Abscess 750mg Take 1 [facility] n -15 11-15 tablet ity of (Levaquin) 00:00: 00:00 (750 mg) [place] 750 mg 00 :00 by mouth MD tablet daily for [place] 14 days. n [facility] amoxicillin 2021- No Abscess 875mg Take 1 [facility] -clavulanat 10-16-15 tablet ity o f e 00:00: 00:00 (875 mg) [place] (Augmentin) 00 :00 by mouth MD 875 mg-125 twice [place] mg per daily for n tablet 14 days. [facility] levoFLOXaci 2021- No Abscess 750mg Take 1 [facility] n 10-16-15 tablet ity of (Levaquin) 00:00: 00:00 (750 mg) [place] 750 mg 00 :00 by mouth MD tablet daily for [place] 14 days. n [facility] amoxicillin 2021- No Abscess 875mg Take 1 [facility] -clavulanat 10-16-15 tablet ity o f e 00:00: 00:00 (875 mg) [place] (Augmentin) 00 :00 by mouth MD 875 mg-125 twice [place] mg per daily for n tablet 14 days. [facility] levoFLOXaci 2021- No Abscess 750mg Take 1 [facility] n 10-16-15 tablet ity of (Levaquin) 00:00: 00:00 (750 mg) [place] 750 mg 00 :00 by mouth MD tablet daily for [place] 14 days. n [facility] amoxicillin 2021- No Abscess 875mg Take 1 [facility] -clavulanat 10-16-15 tablet ity o f e 00:00: 00:00 (875 mg) [place] (Augmentin) 00 :00 by mouth 875 mg-125 twice [place] mg per daily for n tablet 14 days. [facility] levoFLOXaci 2021- No Abscess 750mg Take 1 [facility] n 10-16-15 tablet ity of (Levaquin) 00:00: 00:00 (750 mg) [place] 750 mg 00 :00 by mouth MD tablet daily for [place] 14 days. n [facility] amoxicillin 2021- No Abscess 875mg Take 1 [facility] -clavulanat -15 11-15 tablet ity o f e 00:00: 00:00 (875 mg) [place] (Augmentin) 00 :00 by mouth MD 875 mg-125 twice [place] mg per daily for n tablet 14 days. [facility] levoFLOXaci 2021- No Abscess 750mg Take 1 [facility] n -15 11-15 tablet ity of (Levaquin) 00:00: 00:00 (750 mg) [place] 750 mg 00 :00 by mouth MD tablet daily for [place] 14 days. n [facility] amoxicillin 2021- No Abscess 875mg Take 1 [facility] -clavulanat 10-16-15 tablet ity o f e 00:00: 00:00 (875 mg) [place] (Augmentin) 00 :00 by mouth MD 875 mg-125 twice [place] mg per daily for n tablet 14 days. [facility] levoFLOXaci 2021- No Abscess 750mg Take 1 [facility] n 10-16-15 tablet ity of (Levaquin) 00:00: 00:00 (750 mg) [place] 750 mg 00 :00 by mouth MD tablet daily for [place] 14 days. n [facility] amoxicillin 2021- No Abscess 875mg Take 1 [facility] -clavulanat 10-16-15 tablet ity o f e 00:00: 00:00 (875 mg) [place] (Augmentin) 00 :00 by mouth 875 mg-125 twice [place] mg per daily for n tablet 14 days. [facility] levoFLOXaci 2021- No Abscess 750mg Take 1 [facility] n -15 11-15 tablet ity of (Levaquin) 00:00: 00:00 (750 mg) [place] 750 mg 00 :00 by mouth MD tablet daily for [place] 14 days. n [facility] amoxicillin 2021- No Abscess 875mg Take 1 [facility] -clavulanat -15 11-15 tablet ity o f e 00:00: 00:00 (875 mg) [place] (Augmentin) 00 :00 by mouth 875 mg-125 twice [place] mg per daily for n tablet 14 days. [facility] levoFLOXaci 2021- No Abscess 750mg Take 1 [facility] n 6-21 07-15 tablet ity of (Levaquin) 00:00: 00:00 (750 mg) [place] 750 mg 00 :00 by mouth MD tablet daily for [place] 14 days. n [facility] HYDROmorpho 2021- No Uncontrolle 4mg Take 1 [facility] ne 6-15 07-13 d pain tablet (4 ity of (DILAUDID) 00:00: 00:00 mg[place] 4 mg tablet 00 :00 mouth MD every 3 [place] (three) n hours as Cancer needed for Center severe pain. HYDROmorpho 2021- No Uncontrolle 4mg Take 1 [facility] ne 6-15 07-13 d pain tablet (4 ity of (DILAUDID) 00:00: 00:00 mg[place] 4 mg tablet 00 :00 mouth MD every 3 [place] (three) n hours as Cancer needed for Center severe pain. HYDROmorpho 2021- No Uncontrolle 4mg Take 1 [facility] ne 6-15 07-13 d pain tablet (4 ity of (DILAUDID) 00:00: 00:00 mg[place] 4 mg tablet 00 :00 mouth MD every 3 [place] (three) n hours as Cancer needed for Center severe pain. HYDROmorpho 2021- No Uncontrolle 4mg Take 1 [facility] ne 6-15 07-13 d pain tablet (4 ity of (DILAUDID) 00:00: 00:00 mg[place] 4 mg tablet 00 :00 mouth MD every 3 [place] (three) n hours as Cancer needed for Center severe pain. HYDROmorpho 2021- No Uncontrolle 4mg Take 1 [facility] ne 6-15 07-13 d pain tablet (4 ity of (DILAUDID) 00:00: 00:00 mg[place] 4 mg tablet 00 :00 mouth MD every 3 [place] (three) n hours as Cancer needed for Center severe pain. HYDROmorpho 2021- No Uncontrolle 4mg Take 1 [facility] ne 6-15 07-13 d pain tablet (4 ity of (DILAUDID) 00:00: 00:00 mg) [place] 4 mg tablet 00 :00 mouth MD every 3 [place] (three) n hours as Cancer needed for Center severe pain. HYDROmorpho 2021-2021- No Uncontrolle 4mg Take 1 [facility] ne 10-10-13 d pain tablet (4 ity of (DILAUDID) 00:00: 00:00 mg) [place] 4 mg tablet 00 :00 mouth MD every 3 [place] (three) n hours as Cancer needed for Center severe pain. HYDROmorpho 2021- No Uncontrolle 4mg Take 1 [facility] ne 10-10-13 d pain tablet (4 ity of (DILAUDID) 00:00: 00:00 mg) [place] 4 mg tablet 00 :00 mouth MD every 3 [place] (three) n hours as Cancer needed for Center severe pain. fentaNYL 2021- No Uncontrolle 37.5ug Place 1 [facility] (DURAGESIC) 10-10 06-24 d pain patch ity of patch 37.5 00:00: 00:00 (37.5 mcg) [place] mcg/hr 00 :00 on the MD skin every [place] 72 hours. n Cancer Center fentaNYL 2021- No Uncontrolle 37.5ug Place 1 [facility] (DURAGESIC) 10-10-24 d pain patch ity of patch 37.5 00:00: 00:00 (37.5 mcg) [place] mcg/hr 00 :00 on the MD skin every [place] 72 hours. n [facility] [place] fentaNYL 2021-2021- No Uncontrolle 37.5ug Place 1 [facility] (DURAGESIC) 10-10-24 d pain patch ity of patch 37.5 00:00: 00:00 (37.5 mcg) [place] mcg/hr 00 :00 on the MD skin every [place] 72 hours. n Cancer Center fentaNYL 2021-0 2021- No Uncontrolle 37.5ug Place 1 [facility] (DURAGESIC) 10-10 06-24 d pain patch ity of patch 37.5 00:00: 00:00 (37.5 mcg) [place] mcg/hr 00 :00 on the MD skin every [place] 72 hours. n Cancer Center fentaNYL 2021-0 2021- No Uncontrolle 37.5ug Place 1 [facility] (DURAGESIC) 6-15 06-24 d pain patch ity of patch 37.5 00:00: 00:00 (37.5 mcg) [place] mcg/hr 00 :00 on the MD skin every [place] 72 hours. n [facility] fentaNYL 2021- No Uncontrolle 37.5ug Place 1 [facility] (DURAGESIC) 10-10-24 d pain patch ity of patch 37.5 00:00: 00:00 (37.5 mcg) [place] mcg/hr 00 :00 on the MD skin every [place] 72 hours. n [facility] fentaNYL 2021- No Uncontrolle 37.5ug Place 1 [facility] (DURAGESIC) 10-10-24 d pain patch ity of patch 37.5 00:00: 00:00 (37.5 mcg) [place] mcg/hr 00 :00 on the MD skin every [place] 72 hours. n [facility] fentaNYL 2021- No Uncontrolle 37.5ug Place 1 [facility] (DURAGESIC) 10-10 d pain patch ity of patch 37.5 00:00: 00:00 (37.5 mcg) [place] mcg/hr 00 :00 on the MD skin every [place] 72 hours. n [facility] [place] valACYclovi 2021- No Diffuse 500mg Take 1 [facility] r (VALTREX) 09-29 large tablet ity of 500 mg 00:00: 00:00 B-cell (500 mg) [place] tablet 00 :00 lymphoma, by mouth MD not daily. [place] otherwise n specified Cancer Center valACYclovi 2021- No Diffuse 500mg Take 1 [facility] r (VALTREX) 09-29 large tablet ity of 500 mg 00:00: 00:00 B-cell (500 mg) [place] tablet 00 :00 lymphoma, by mouth MD not daily. [place] otherwise n specified Cancer Center valACYclovi 2021- No Diffuse 500mg Take 1 [facility] r (VALTREX) 09-29 large tablet ity of 500 mg 00:00: 00:00 B-cell (500 mg) [place] tablet 00 :00 lymphoma, by mouth MD not daily. [place] otherwise n specified Cancer Center valACYclovi 2021- No Diffuse 500mg Take 1 [facility] r (VALTREX) 09-29 large tablet ity of 500 mg 00:00: 00:00 B-cell (500 mg) [place] tablet 00 :00 lymphoma, by mouth MD not daily. [place] otherwise n specified Cancer Center valACYclovi 2021- No Diffuse 500mg Take 1 [facility] r (VALTREX) 09-29 large tablet ity of 500 mg 00:00: 00:00 B-cell (500 mg) [place] tablet 00 :00 lymphoma, by mouth MD not daily. [place] otherwise n specified Cancer Center valACYclovi 2021- No Diffuse 500mg Take 1 [facility] r (VALTREX) 09-29 large tablet ity of 500 mg 00:00: 00:00 B-cell (500 mg) [place] tablet 00 :00 lymphoma, by mouth MD not daily. [place] otherwise n specified Cancer [place] valACYclovi 2021- No Diffuse 500mg Take 1 [facility] r (VALTREX) 09-29 large tablet ity of 500 mg 00:00: 00:00 B-cell (500 mg) [place] tablet 00 :00 lymphoma, by mouth MD not daily. [place] otherwise n specified Cancer Center valACYclovi 2021- No Diffuse 500mg Take 1 [facility] r (VALTREX) 09-29 large tablet ity of 500 mg 00:00: 00:00 B-cell (500 mg) [place] tablet 00 :00 lymphoma, by mouth MD not daily. [place] otherwise n specified Cancer Center fentaNYL 2021- No Uncontrolle 25ug Place 1 [facility] (DURAGESIC) 09-29 06-24 d pain patch (25 ity of patch 25 00:00: 00:00 mcg) on [place] mcg/hr 00 :00 the skin MD every 72 [place] hours. n Remove old Cancer patch(es) Center before replacing new patch(es). fentaNYL 2021- No Uncontrolle [address] Place 1 [facility] (DURAGESIC) 09-29 06-24 d pain patch (25 ity of patch 25 00:00: 00:00 mcg) on [place] mcg/hr 00 :00 the skin MD every 72 [place] hours. n Remove old Cancer patch(es) Center before replacing new patch(es). fentaNYL 2021- No Uncontrolle [address] Place 1 [facility] (DURAGESIC) 09-29 06-24 d pain patch (25 ity of patch 25 00:00: 00:00 mcg) on [place] mcg/hr 00 :00 the skin MD every 72 [place] hours. n Remove old Cancer patch(es) Center before replacing new patch(es). fentaNYL 2021- No Uncontrolle [address] Place 1 [facility] (DURAGESIC) 09-29 06-24 d pain patch (25 ity of patch 25 00:00: 00:00 mcg) on [place] mcg/hr 00 :00 the skin MD every 72 [place] hours. n Remove old Cancer patch(es) Center before replacing new patch(es). fentaNYL 2021- No Uncontrolle 25ug Place 1 [facility] (DURAGESIC) 09-29 06-24 d pain patch (25 ity of patch 25 00:00: 00:00 mcg) on [place] mcg/hr 00 :00 the skin MD every 72 [place] hours. n Remove old Cancer patch(es) Center before replacing new patch(es). fentaNYL 2021-2021- No Uncontrolle 25ug Place 1 [facility] (DURAGESIC) 09-29 06-24 d pain patch (25 ity of patch 25 00:00: 00:00 mcg) on [place] mcg/hr 00 :00 the skin MD every 72 [place] hours. n Remove old Cancer patch(es) Center before replacing new patch(es). fentaNYL 2021- No Uncontrolle 25ug Place 1 [facility] (DURAGESIC) 09-29 06-24 d pain patch (25 ity of patch 25 00:00: 00:00 mcg) on [place] mcg/hr 00 :00 the skin MD every 72 [place] hours. n Remove old Cancer patch(es) Center before replacing new patch(es). fentaNYL 2021- No Uncontrolle 25ug Place 1 [facility] (DURAGESIC) 09-29 06-24 d pain patch (25 ity of patch 25 00:00: 00:00 mcg) on [place] mcg/hr 00 :00 the skin MD every 72 [place] hours. n Remove old Cancer patch(es) Center before replacing new patch(es). predniSONE 2021- No Diffuse 100mg Take 2 [facility] (DELTASONE) 6-04 06-08 large tablets ity of 50 mg 00:00: 04:59 B-cell (100 mg) [place] tablet 00 :00 lymphoma, by mouth MD not daily for Anderso otherwise 3 doses. n specified Take on Cancer 6/4, 6/5, Center and 10/01 predniSONE 2021-0 2021- No Diffuse 100mg Take 2 [facility] (DELTASONE) 6-04 06-08 large tablets ity of 50 mg 00:00: 04:59 B-cell (100 mg) [place] tablet 00 :00 lymphoma, by mouth MD not daily for Anderso otherwise 3 doses. n specified Take on Cancer 6/, 6/5, Center and 10/01 predniSONE 2021-0 2021- No Diffuse 100mg Take 2 [facility] (DELTASONE) 6- 06-08 large tablets ity of 50 mg 00:00: 04:59 B-cell (100 mg) [place] tablet 00 :00 lymphoma, by mouth MD not daily for Anderso otherwise 3 doses. n specified Take on Cancer 6/, 6/5, Center and 10/01 predniSONE 2021-0 2021- No Diffuse 100mg Take 2 [facility] (DELTASONE) 6- 06-08 large tablets ity of 50 mg 00:00: 04:59 B-cell (100 mg) [place] tablet 00 :00 lymphoma, by mouth MD not daily for Anderso otherwise 3 doses. n specified Take on Cancer 6/, 6/5, Center and 10/01 predniSONE 2021-0 2021- No Diffuse 100mg Take 2 [facility] (DELTASONE) 6- 06-08 large tablets ity of 50 mg 00:00: 04:59 B-cell (100 mg) [place] tablet 00 :00 lymphoma, by mouth MD not daily for Anderso otherwise 3 doses. n specified Take on Cancer 6/4, 6/5, Center and 10/01 predniSONE 2021-0 2021- No Diffuse 100mg Take 2 [facility] (DELTASONE) 6-04 06-08 large tablets ity of 50 mg 00:00: 04:59 B-cell (100 mg) [place] tablet 00 :00 lymphoma, by mouth MD not daily for Anderso otherwise 3 doses. n specified Take on Cancer 6/4, 6/5, Center and 10/01 predniSONE 2021- No Diffuse 100mg Take 2 [facility] (DELTASONE) 09-29 06-08 large tablets ity of 50 mg 00:00: 04:59 B-cell (100 mg) [place] tablet 00 :00 lymphoma, by mouth MD not daily for Anderso otherwise 3 doses. n specified Take on Cancer 09/29, 09/30, Center and 10/01 predniSONE 2021- No Diffuse 100mg Take 2 [facility] (DELTASONE) 09-29-08 large tablets ity of 50 mg 00:00: 04:59 B-cell (100 mg) [place] tablet 00 :00 lymphoma, by mouth MD not daily for Anderso otherwise 3 doses. n specified Take on Cancer 09/29, 09/30, Center and 10/01 traMADol 2021- No 50mg Take 50 mg [facility] (ULTRAM) 50 09-28-03 by mouth ity of mg tablet 17:33: 00:00 every 6 [place] 45 :00 (six) MD hours as [place] needed. n [facility] docusate 2021- No 250mg Take 250 Uni vers sodium 09-28 06-03 mg by ity of (COLACE) 17:33: 00:00 mouth [place] 250 mg 45 :00 daily. capsule Robert [facility] gabapentin 2021- No 300mg Take 300 U nivers (NEURONTIN) 09-28 06-03 mg by ity of 600 mg 17:33: 00:00 mouth 3 [place] tablet 45 :00 (three) MD times a Anderso day. Take n one-Half Cancer tablet by Center mouth 3 times a day for pain or anxiety traMADol 2021- No 50mg Take 50 mg [place] (ULTRAM) 50 09-28 06-03 by mouth ity of mg tablet 17:33: 00:00 every 6 [place] 45 :00 (six) MD hours as [place] needed. n [facility] docusate 2021- No 250mg Take 250 [facility] vers sodium 6- 06-03 mg by ity of (COLACE) 17:33: 00:00 mouth [place] 250 mg 45 :00 daily. capsule Robert [facility] gabapentin 2021- No 300mg Take 300 U nivers (NEURONTIN) 6-03 06-03 mg by ity of 600 mg 17:33: 00:00 mouth 3 [place] tablet 45 :00 (three) MD times a [place]o day. Take n one-Half Cancer tablet by Center mouth 3 times a day for pain or anxiety traMADol 2021-2021- No 50mg Take 50 mg [place] (ULTRAM) 50 6- 06-03 by mouth ity of mg tablet 17:33: 00:00 every 6 [place] 45 :00 (six) MD hours as [place] needed. n [facility] docusate 2021- No 250mg Take 250 [facility] vers sodium 6-03 06-03 mg by ity of (COLACE) 17:33: 00:00 mouth [place] 250 mg 45 :00 daily. capsule Robert [facility] gabapentin 2021- No 300mg Take 300 U nivers (NEURONTIN) 6-03 06-03 mg by ity of 600 mg 17:33: 00:00 mouth 3 [place] tablet 45 :00 (three) MD times a [place] day. Take n one-Half Cancer tablet by Center mouth 3 times a day for pain or anxiety traMADol 2021- No 50mg Take 50 mg [place] [facility] (ULTRAM) 50 6- 06-03 by mouth ity of mg tablet 17:33: 00:00 every 6 [place] 45 :00 (six) MD hours as [place] needed. [facility] docusate 2021- No 250mg Take 250 [facility] vers sodium 6-03 06-03 mg by ity of (COLACE) 17:33: 00:00 mouth [place] 250 mg 45 :00 daily. MD valerie Jones [facility] gabapentin 2021-2021- No 300mg Take 300 U nivers (NEURONTIN) 6-03 06-03 mg by ity of 600 mg 17:33: 00:00 mouth 3 [place] tablet 45 :00 (three) MD times a [place] day. Take n one-Half Cancer tablet by Center mouth 3 times a day for pain or anxiety traMADol 2021- No 50mg Take 50 mg [place] [facility] (ULTRAM) 50 6-03 06-03 by mouth ity of mg tablet 17:33: 00:00 every 6 [place] 45 :00 (six) MD hours as [place] needed. n [facility] docusate 2021- No 250mg Take 250 [facility] vers sodium 6-03 06-03 mg by ity of (COLACE) 17:33: 00:00 mouth [place] 250 mg 45 :00 daily. capsule Robert [facility] gabapentin 2021- No 300mg Take 300 U nivers (NEURONTIN) 6-03 06-03 mg by ity of 600 mg 17:33: 00:00 mouth 3 [place] tablet 45 :00 (three) MD times a [place] day. Take n one-Half Cancer tablet by Center mouth 3 times a day for pain or anxiety traMADol 2021- No 50mg Take 50 mg [facility] (ULTRAM) 50 6- 06-03 by mouth ity of mg tablet 17:33: 00:00 every 6 [place] 45 :00 (six) MD hours as [place] needed. [facility] docusate 2021- No 250mg Take 250 [facility] vers sodium 6-03 06-03 mg by ity of (COLACE) 17:33: 00:00 mouth [place] 250 mg 45 :00 daily. MD valerie Jones [facility] gabapentin 2021- No 300mg Take 300 U nivers (NEURONTIN) 6-03 06-03 mg by ity of 600 mg 17:33: 00:00 mouth 3 [place] tablet 45 :00 (three) MD times a [place] day. Take n one-Half Cancer tablet by Center mouth 3 times a day for pain or anxiety traMADol 2021- No 50mg Take 50 mg [facility] (ULTRAM) 50 6-03 06-03 by mouth ity of mg tablet 17:33: 00:00 every 6 [place] 45 :00 (six) MD hours as [place] needed. [facility] docusate 2021- No 250mg Take 250 Uni vers sodium 6-03 06-03 mg by ity of (COLACE) 17:33: 00:00 mouth [place] 250 mg 45 :00 daily. MD valerie Jones [facility] gabapentin 2021- No 300mg Take 300 U nivers (NEURONTIN) 6-03 06-03 mg by ity of 600 mg 17:33: 00:00 mouth 3 [place] tablet 45 :00 (three) MD times a Robert day. Take n one-Half Cancer tablet by Center mouth 3 times a day for pain or anxiety traMADol 2021- No 50mg Take 50 mg [facility] (ULTRAM) 50 [id number] by mouth ity of mg tablet 17:33: 00:00 every 6 [place] 45 :00 (six) MD hours as Andjaylao needed. lewis [facility] docusate 2021- No 250mg Take 250 Uni vers sodium 09-28-03 mg by ity of (COLACE) 17:33: 00:00 mouth [place] 250 mg 45 :00 daily. MD valerie saucedo [facility] gabapentin 2021- No 300mg Take 300 U nivers (NEURONTIN) 09-28-03 mg by ity of 600 mg 17:33: 00:00 mouth 3 [place] tablet 45 :00 (three) MD times a Rboert day. Take n one-Half Cancer tablet by Center mouth 3 times a day for pain or anxiety valsartan 2021- No 80mg Take 80 mg U nivers (DIOVAN) 80 09-28 by mouth ity of mg tablet 11:58: 00:00 daily. [place] 29 :00 MD Robert saucedo [facility] valsartan 2021- No 80mg Take 80 mg U nivers (DIOVAN) 80 09-2803 by mouth ity of mg tablet 11:58: 00:00 daily. [place] 29 :00 MD Robert saucedo [facility] valsartan 2021- No 80mg Take 80 mg U nivers (DIOVAN) 80 09-28-03 by mouth ity of mg tablet 11:58: 00:00 daily. [place] 29 :00 MD Robert saucedo [facility] valsartan 2021- No 80mg Take 80 mg U nivers (DIOVAN) 80 09-28-03 by mouth ity of mg tablet 11:58: 00:00 daily. [place] 29 :00 MD Robert saucedo [facility] valsartan 2021- No 80mg Take 80 mg U nivers (DIOVAN) 80 6- 06-03 by mouth ity of mg tablet 11:58: 00:00 daily. [place] 29 :00 MD Robert saucedo [facility] valsartan 2021- No 80mg Take 80 mg U nivers (DIOVAN) 80 6-07 01-03 by mouth ity of mg tablet 11:58: 00:00 daily. [place] 29 :00 MD Robert saucedo [facility] Center valsartan 2021- No 80mg Take 80 mg U nivers (DIOVAN) 80 6-07 01-03 by mouth ity of mg tablet 11:58: 00:00 daily. [place] 29 :00 MD Robert saucedo [facility] valsartan 2021- No 80mg Take 80 mg U nivers (DIOVAN) 80 6-07 01-03 by mouth ity of mg tablet 11:58: 00:00 daily. [place] 29 :00 MD Robert saucedo [facility] Center senna-docus Yes Diffuse 2{tbl} Take 2 [facility] ate 6-03 large tablets by ity of (SENOKOT-S) 00:00: B-cell mouth 2 [place] 8.6 mg-50 00 lymphoma, (two) MD mg tablet not times a [place] otherwise day as n specified needed for [facility] er constipati Center on. prochlorper Yes Diffuse 10mg Take 1 U nivers azine 6-03 large tablet (10 ity of (Compazine) 00:00: B-cell mg[place] by [place] 10 mg 00 lymphoma, mouth MD tablet not every 6 [place] otherwise (six) n specified hours as Cancer needed for Center nausea or vomiting (not relieved by ondansetro n). valsartan Yes Diffuse 80mg Take 1 Uni vers (DIOVAN) 80 6-03 large tablet (80 i ty [place] mg tablet 00:00: [place]cell [place] lymphoma, mouth [place] not daily. [place] otherwise Hold for n specified systolic Cancer blood Center pressure less than 110 mmHg. senna-docus Yes Diffuse 2{tbl} Take 2 [facility] ate 6-03 large tablets by ity of (SENOKOT-S) 00:00: B-cell mouth 2 [place] 8.6 mg-50 00 lymphoma, (two) MD mg tablet not times a [place] otherwise day as n specified needed for [facility] er constipati Center on. prochlorper Yes Diffuse 10mg Take 1 U nivers azine 6-03 large tablet (10 ity of (Compazine) 00:00: B-cell mg[place] 10 mg 00 lymphoma, mouth MD tablet not every 6 [place] otherwise (six) n specified hours as Cancer needed for Center nausea or vomiting (not relieved by ondansetro n). valsartan Yes Diffuse 80mg Take 1 Uni vers (DIOVAN) 80 6-03 large tablet (80 i ty of mg tablet 00:00: [place]cell [place] lymphoma, mouth MD not daily. [place] otherwise Hold for n specified systolic Cancer blood Center pressure less than 110 mmHg. senna-docus Yes Diffuse 2{tbl} Take 2 [facility] ate 6-03 large tablets by ity of (SENOKOT-S) 00:00: B-cell mouth 2 [place] 8.6 mg-50 00 lymphoma, (two) MD mg tablet not times a [place] otherwise day as n specified needed for [facility] er constipati Center on. prochlorper Yes Diffuse 10mg Take 1 U nivers azine 6-03 large tablet (10 ity of (Compazine) 00:00: B-cell mg) by [place] 10 mg 00 lymphoma, mouth MD tablet not every 6 [place] otherwise (six) n specified hours as Cancer needed for Center nausea or vomiting (not relieved by ondansetro n). valsartan Yes Diffuse 80mg Take 1 Uni vers (DIOVAN) 80 6-03 large tablet (80 i ty of mg tablet 00:00: [place]cell [place] lymphoma, mouth MD not daily. [place] otherwise Hold for n specified systolic Cancer blood Center pressure less than 110 mmHg. senna-docus Yes Diffuse 2{tbl} Take 2 [facility] ate 6-03 large tablets by ity of (SENOKOT-S) 00:00: B-cell mouth 2 [place] 8.6 mg-50 00 lymphoma, (two) MD mg tablet not times a [place] otherwise day as n specified needed for [facility] er constipati Center on. prochlorper Yes Diffuse 10mg Take 1 U nivers azine 6-03 large tablet (10 ity of (Compazine) 00:00: B-cell mg) [place] 10 mg 00 lymphoma, mouth MD tablet not every 6 [place] otherwise (six) n specified hours as Cancer needed for Center nausea or vomiting (not relieved by ondansetro n). valsartan Yes Diffuse 80mg Take 1 Uni vers (DIOVAN) 80 6-03 large tablet (80 i ty of mg tablet 00:00: [place]cell [place] lymphoma, mouth MD not daily. [place] otherwise Hold for n specified systolic Cancer blood Center pressure less than 110 mmHg. senna-docus Yes Diffuse 2{tbl} Take 2 [facility] ate 6-03 large tablets by ity of (SENOKOT-S) 00:00: B-cell mouth 2 [place] 8.6 mg-50 00 lymphoma, (two) MD mg tablet not times a [place] otherwise day as n specified needed for [facility] er constipati Center on. prochlorper Yes Diffuse 10mg Take 1 U nivers azine 6-03 large tablet (10 ity of (Compazine) 00:00: B-cell mg) [place] 10 mg 00 lymphoma, mouth MD tablet not every 6 [place] otherwise (six) n specified hours as Cancer needed for Center nausea or vomiting (not relieved by ondansetro n). valsartan Yes Diffuse 80mg Take 1 Uni vers (DIOVAN) 80 6-03 large tablet (80 i ty of mg tablet 00:00: [place]cell mg[place] lymphoma, mouth MD not daily. [place] otherwise Hold for n specified systolic Cancer blood Center pressure less than 110 mmHg. senna-docus Yes Diffuse 2{tbl} Take 2 [facility] ate 6-03 large tablets by ity of (SENOKOT-S) 00:00: B-cell mouth 2 [place] 8.6 mg-50 00 lymphoma, (two) MD mg tablet not times a [place] otherwise day as n specified needed for [facility] er constipati Center on. prochlorper Yes Diffuse 10mg Take 1 U nivers azine 6-03 large tablet (10 ity of (Compazine) 00:00: B-cell mg) by [place] 10 mg 00 lymphoma, mouth MD tablet not every 6 [place] otherwise (six) n specified hours as Cancer needed for Center nausea or vomiting (not relieved by ondansetro n). valsartan Yes Diffuse 80mg Take 1 Uni vers (DIOVAN) 80 6-03 large tablet (80 i ty of mg tablet 00:00: [place]cell mg[place] lymphoma, mouth MD not daily. [place] otherwise Hold for n specified systolic Cancer blood Center pressure less than 110 mmHg. senna-docus Yes Diffuse 2{tbl} Take 2 [facility] ate 6-03 large tablets by ity of (SENOKOT-S) 00:00: B-cell mouth 2 [place] 8.6 mg-50 00 lymphoma, (two) MD mg tablet not times a [place] otherwise day as n specified needed for [facility] er constipati Center on. prochlorper Yes Diffuse 10mg Take 1 U nivers azine 6-03 large tablet (10 ity of (Compazine) 00:00: B-cell mg) by [place] 10 mg 00 lymphoma, mouth MD tablet not every 6 [place] otherwise (six) n specified hours as Cancer needed for Center nausea or vomiting (not relieved by ondansetro n). valsartan Yes Diffuse 80mg Take 1 Uni vers (DIOVAN) 80 6-03 large tablet (80 i ty of mg tablet 00:00: [place]cell mg[place] lymphoma, mouth MD not daily. [place] otherwise Hold for n specified systolic Cancer blood Center pressure less than 110 mmHg. senna-docus Yes Diffuse 2{tbl} Take 2 [facility] ate 6-03 large tablets by ity of (SENOKOT-S) 00:00: B-cell mouth 2 [place] 8.6 mg-50 00 lymphoma, (two) MD mg tablet not times a [place] otherwise day as n specified needed for [facility] er constipati Center on. prochlorper Yes Diffuse 10mg Take 1 U nivers azine 6-03 large tablet (10 ity of (Compazine) 00:00: B-cell mg) by [place] 10 mg 00 lymphoma, mouth MD tablet not every 6 [place] otherwise (six) n specified hours as Cancer needed for Center nausea or vomiting (not relieved by ondansetro n). valsartan Yes Diffuse 80mg Take 1 Uni vers (DIOVAN) 80 6-03 large tablet (80 i ty of mg tablet 00:00: B-cell mg) by [place] 00 lymphoma, mouth MD not daily. [place] otherwise Hold for n specified systolic Cancer blood Center pressure less than 110 mmHg. sodium 2021- No Diffuse Inject 10 Un [facility] chloride 6-03 08-28 large mL (1 ity of (NS) 0.9% 00:00: 00:00 B-cell syringe) [place] flush 00 :00 lymphoma, into each MD syringe 10 not lumen of [place] so mL otherwise central n specified venous Cancer catheter Center daily as directed. sodium 2021- No Diffuse Inject 10 Un h[facility] chloride 6-03 08-28 large mL (1 ity of (NS) 0.9% 00:00: 00:00 B-cell syringe) [place] flush 00 :00 lymphoma, into each MD syringe 10 not lumen of [place] so mL otherwise central n specified venous Cancer catheter Center daily as directed. sodium 2021- No Diffuse Inject 10 Un h[facility] chloride 6-03 08-28 large mL (1 ity of (NS) 0.9% 00:00: 00:00 B-cell syringe) [place] flush 00 :00 lymphoma, into each MD syringe 10 not lumen of [place] so mL otherwise central n specified venous Cancer catheter Center daily as directed. sodium 2021- No Diffuse Inject 10 Un h[facility] chloride 6-03 08-28 large mL (1 ity of (NS) 0.9% 00:00: 00:00 B-cell syringe) [place] flush 00 :00 lymphoma, into each MD syringe 10 not lumen of [place] so mL otherwise central n specified venous Cancer catheter Center daily as directed. sodium 2021- No Diffuse Inject 10 Un hillary chloride 6- 08-28 large mL (1 ity of (NS) 0.9% 00:00: 00:00 B-cell syringe) [place] flush 00 :00 lymphoma, into each MD syringe 10 not lumen of [place] so mL otherwise central n specified venous Cancer catheter Center daily as directed. sodium 2021- No Diffuse Inject 10 Un h[facility] chloride 6- 08-28 large mL (1 ity of (NS) 0.9% 00:00: 00:00 B-cell syringe) [place] flush 00 :00 lymphoma, into each MD syringe 10 not lumen of [place] so mL otherwise central n specified venous Cancer catheter Center daily as directed. sodium 2021- No Diffuse Inject 10 Un h[facility] chloride 6- 08-28 large mL (1 ity of (NS) 0.9% 00:00: 00:00 B-cell syringe) [place] flush 00 :00 lymphoma, into each MD syringe 10 not lumen of [place] so mL otherwise central n specified venous Cancer catheter Center daily as directed. sodium 2021- No Diffuse Inject 10 Un hillary chloride 6-07 03-28 large mL (1 ity of (NS) 0.9% 00:00: 00:00 B-cell syringe) [place] flush 00 :00 lymphoma, into each MD syringe 10 not lumen of [place] so mL otherwise central n specified venous Cancer catheter Center daily as directed. baclofen 2021- No Generalized 5mg Take 1 [facility] mg tab 09-28 abdominal tablet (5 it y of 00:00: 00:00 pain mg) by [place] 00 :00 mouth twice [place] daily. [facility] baclofen 2021- No Generalized 5mg Take 1 Univers mg tab 09-28 abdominal tablet (5 it y of 00:00: 00:00 pain mg) by [place] 00 :00 mouth twice [place] daily. [facility] baclofen 2021- No Generalized 5mg Take 1 Univers mg tab 09-28 abdominal tablet (5 it y of 00:00: 00:00 pain mg) by [place] 00 :00 mouth twice [place] daily. [facility] baclofen 2021- No Generalized 5mg Take 1 Univers mg tab 09-28 abdominal tablet (5 it y of 00:00: 00:00 pain mg) by [place] 00 :00 mouth twice [place] daily. [facility] baclofen 5 2021- No Generalized 5mg Take 1 [facility] mg tab 09-28 abdominal tablet (5 it y of 00:00: 00:00 pain mg) by [place] 00 :00 mouth twice [place] daily. [facility] baclofen 5 2021- No Generalized 5mg Take 1 [facility] mg tab 09-28 abdominal tablet (5 it y of 00:00: 00:00 pain mg) by [place] 00 :00 mouth twice [place] daily. [facility] baclofen 5 2021- No Generalized 5mg Take 1 [facility] mg tab 09-28 abdominal tablet (5 it y of 00:00: 00:00 pain mg) by [place] 00 :00 mouth twice [place] daily. [facility] baclofen 5 2021- No Generalized 5mg Take 1 [facility] mg tab 09-28 abdominal tablet (5 it y of 00:00: 00:00 pain mg) by [place] 00 :00 mouth twice [place] daily. [facility] gabapentin 2021- No Uncontrolle 600mg Take 1 Univers (NEURONTIN) 09-28- d pain tablet ity of 600 mg 00:00: 00:00 (600 mg) [place] tablet 00 :00 by mouth 3 (three) [place] times a n day. [facility] gabapentin 2021- No Uncontrolle 600mg Take 1 Univers (NEURONTIN) 09-28 d pain tablet ity of 600 mg 00:00: 00:00 (600 mg) [place] tablet 00 :00 by mouth 3 (three) [place] times a n day. [facility] gabapentin 2021- No Uncontrolle 600mg Take 1 Univers (NEURONTIN) 09-28- d pain tablet ity of 600 mg 00:00: 00:00 (600 mg) [place] tablet 00 :00 by mouth 3 (three) [place] times a n day. [facility] gabapentin 2021- No Uncontrolle 600mg Take 1 Univers (NEURONTIN) 09-2813 d pain tablet ity of 600 mg 00:00: 00:00 (600 mg) [place] tablet 00 :00 by mouth 3 MD (three) [place] times a n day. [facility] gabapentin 2021- No Uncontrolle 600mg Take 1 Univers (NEURONTIN) 09-28-13 d pain tablet ity of 600 mg 00:00: 00:00 (600 mg) [place] tablet 00 :00 by mouth 3 MD (three) [place] times a n day. [facility] gabapentin 2021- No Uncontrolle 600mg Take 1 Univers (NEURONTIN) 09-2813 d pain tablet ity of 600 mg 00:00: 00:00 (600 mg) [place] tablet 00 :00 by mouth 3 MD (three) [place] times a n day. [facility] [place] gabapentin 2021- No Uncontrolle 600mg Take 1 Univers (NEURONTIN) 09-28 d pain tablet ity of 600 mg 00:00: 00:00 (600 mg) [place] tablet 00 :00 by mouth 3 MD (three) [place] times a n day. [facility] gabapentin 2021- No Uncontrolle 600mg Take 1 [facility] (NEURONTIN) 09-28 d pain tablet ity of 600 mg 00:00: 00:00 (600 mg) [place] tablet 00 :00 by mouth 3 MD (three) [place] times a n day. [facility] [place] entecavir 2021- No Diffuse .5mg Take 1 Un hillary (BARACLUDE) 09-28 large tablet ity of 0.5 mg 00:00: 00:00 B-cell (0.5 mg) [place] tablet 00 :00 lymphoma, by mouth MD not daily. [place] otherwise n specified [facility] ondansetron 2021- No Diffuse 8mg Take 1 Univers (Zofran) 8 09-28 large tablet (8 it y of mg tablet 00:00: 00:00 B-cell mg) by [place] 00 :00 lymphoma, mouth not every 8 [place]o otherwise (eight) n specified hours as Cancer needed for Center nausea or vomiting. entecavir 2021- No Diffuse .5mg Take 1 Un hillary (BARACLUDE) 09-28 large tablet ity of 0.5 mg 00:00: 00:00 B-cell (0.5 mg) [place] 00 :00 lymphoma, by mouth MD not daily. [place] otherwise n specified Cancer Center ondansetron 2021- No Diffuse 8mg Take 1 Univers (Zofran) 8 09-28- large tablet (8 it y of mg tablet 00:00: 00:00 B-cell mg) by [place] 00 :00 lymphoma, mouth MD not every 8 [place] otherwise (eight) n specified hours as Cancer needed for Center nausea or vomiting. entecavir 2021- No Diffuse .5mg Take 1 Un hillary (BARACLUDE) 09-28 large tablet ity of 0.5 mg 00:00: 00:00 B-cell (0.5 mg) [place] tablet 00 :00 lymphoma, by mouth MD not daily. [place] otherwise n specified Cancer Center ondansetron 2021- No Diffuse 8mg Take 1 [facility] (Zofran) 8 09-28 large tablet (8 it y of mg tablet 00:00: 00:00 B-cell mg) by [place] 00 :00 lymphoma, mouth MD not every 8 [place] otherwise (eight) n specified hours as Cancer needed for Center nausea or vomiting. entecavir 2021- No Diffuse .5mg Take 1 Un hillary (BARACLUDE) 09-28 large tablet ity of 0.5 mg 00:00: 00:00 B-cell (0.5 mg) [place] tablet 00 :00 lymphoma, by mouth MD not daily. [place] otherwise n specified Cancer Center ondansetron 2021- No Diffuse 8mg Take 1 [facility] (Zofran) 8 09-28- large tablet (8 it y of mg tablet 00:00: 00:00 B-cell mg) by [place] 00 :00 lymphoma, mouth MD not every 8 [place] otherwise (eight) n specified hours as Cancer needed for Center nausea or vomiting. entecavir 2021-2021- No Diffuse .5mg Take 1 Un hillary (BARACLUDE) 09-28-22 large tablet ity of 0.5 mg 00:00: 00:00 B-cell (0.5 mg) [place] tablet 00 :00 lymphoma, by mouth MD not daily. [place] otherwise n specified Cancer Center ondansetron 2021- No Diffuse 8mg Take 1 [facility] (Zofran) 8 09-28-22 large tablet (8 it y of mg tablet 00:00: 00:00 B-cell mg) by [place] 00 :00 lymphoma, mouth MD not every 8 [place] otherwise (eight) n specified hours as Cancer needed for Center nausea or vomiting. entecavir 2021- No Diffuse .5mg Take 1 Un hillary (BARACLUDE) 09-28- large tablet ity of 0.5 mg 00:00: 00:00 B-cell (0.5 mg) [place] tablet 00 :00 lymphoma, by mouth MD not daily. [place] otherwise n specified Cancer Center ondansetron 2021- No Diffuse 8mg Take 1 [facility] (Zofran) 8 09-28- large tablet (8 it y of mg tablet 00:00: 00:00 B-cell mg) by [place] 00 :00 lymphoma, mouth MD not every 8 [place] otherwise (eight) n specified hours as Cancer needed for Center nausea or vomiting. entecavir 2021- No Diffuse .5mg Take 1 Un hillary (BARACLUDE) 09-28- large tablet ity of 0.5 mg 00:00: 00:00 B-cell (0.5 mg) [place] tablet 00 :00 lymphoma, by mouth MD not daily. [place] otherwise n specified Cancer Center ondansetron 2021- No Diffuse 8mg Take 1 [facility] (Zofran) 8 09-28-22 large tablet (8 it y of mg tablet 00:00: 00:00 B-cell mg) by [place] 00 :00 lymphoma, mouth MD not every 8 [place] otherwise (eight) n specified hours as Cancer needed for Center nausea or vomiting. entecavir 2021- No Diffuse .5mg Take 1 Un hillary (BARACLUDE) 09-28-22 large tablet ity of 0.5 mg 00:00: 00:00 B-cell (0.5 mg) [place] tablet 00 :00 lymphoma, by mouth MD not daily. [place] otherwise n specified [facility] ondansetron 2021- No Diffuse 8mg Take 1 Univers (Zofran) 8 09-28 large tablet (8 it y of mg tablet 00:00: 00:00 B-cell mg) by [place] 00 :00 lymphoma, mouth MD not every 8 [place] otherwise (eight) n specified hours as Cancer needed for Center nausea or vomiting. ciprofloxac 2021- No Diffuse 500mg Take 1 [facility] in HCl 09-28 large tablet ity of (Cipro) 500 00:00: 04:59 B-cell (500 mg) [place] mg tablet 00 :00 lymphoma, by mouth M D not twice Anderso otherwise daily for n specified 16 days. [facility] minocycline 2021- No Diffuse 100mg Take 1 [facility] (MINOCIN) 09-28 large capsule ity o f 100 mg 00:00: 04:59 B-cell (100 mg) [place] capsule 00 :00 lymphoma, by mouth MD not twice [place] otherwise daily for n specified 16 days. [facility] metroNIDAZO 2021- No Diffuse 500mg Take 1 [facility] LE (FlagyL) 09-28 large tablet ity of 500 mg 00:00: 04:59 B-cell (500 mg) [place] tablet 00 :00 lymphoma, by mouth MD not twice [place] otherwise daily for n specified 16 days. [facility] [place] fluconazole 2021- No Diffuse 200mg Take 1 [facility] (Diflucan) 09-28 large tablet ity o f 200 mg 00:00: 04:59 B-cell (200 mg) [place] tablet 00 :00 lymphoma, by mouth MD not daily for [place]o otherwise 16 days. n specified [facility] [place] ciprofloxac 2021- No Diffuse 500mg Take 1 [facility] in HCl 09-2820 large tablet ity of (Cipro) 500 00:00: 04:59 B-cell (500 mg) [place] mg tablet 00 :00 lymphoma, by mouth M D not twice [place] otherwise daily for n specified 16 days. [facility] [place] minocycline 2021- No Diffuse 100mg Take 1 [facility] (MINOCIN) 09-28- large capsule ity o f 100 mg 00:00: 04:59 B-cell (100 mg) [place] capsule 00 :00 lymphoma, by mouth MD not twice [place] otherwise daily for n specified 16 days. [facility] metroNIDAZO 2021- No Diffuse 500mg Take 1 [facility] LE (FlagyL) 09-28 large tablet ity of 500 mg 00:00: 04:59 B-cell (500 mg) [place] 00 :00 lymphoma, by mouth MD not twice [place] otherwise daily for n specified 16 days. [facility] fluconazole 2021- No Diffuse 200mg Take 1 [facility] (Diflucan) 09-28 large tablet ity o f 200 mg 00:00: 04:59 B-cell (200 mg) [place] tablet 00 :00 lymphoma, by mouth MD not daily for Anderso otherwise 16 days. n specified [facility] ciprofloxac 2021- No Diffuse 500mg Take 1 [facility] in HCl 09-28 large tablet ity of (Cipro) 500 00:00: 04:59 B-cell (500 mg) [place] mg tablet 00 :00 lymphoma, by mouth M D not twice [place]o otherwise daily for n specified 16 days. [facility] minocycline 2021- No Diffuse 100mg Take 1 [facility] (MINOCIN) 09-28 large capsule ity o f 100 mg 00:00: 04:59 B-cell (100 mg) [place] capsule 00 :00 lymphoma, by mouth not twice [place] otherwise daily for n specified 16 days. [facility] metroNIDAZO 2021- No Diffuse 500mg Take 1 [facility] LE (FlagyL) 09-28 large tablet ity of 500 mg 00:00: 04:59 B-cell (500 mg) [place] tablet 00 :00 lymphoma, by mouth MD not twice [place] otherwise daily for n specified 16 days. [facility] fluconazole 2021- No Diffuse 200mg Take 1 [facility] (Diflucan) 09-28-20 large tablet ity o f 200 mg 00:00: 04:59 B-cell (200 mg) [place] tablet 00 :00 lymphoma, by mouth MD not daily for Anderso otherwise 16 days. n specified [facility] ciprofloxac 2021- No Diffuse 500mg Take 1 [facility] in HCl 09-28 large tablet ity of (Cipro) 500 00:00: 04:59 B-cell (500 mg) [place] mg tablet 00 :00 lymphoma, by mouth M D not twice Anderso otherwise daily for n specified 16 days. [facility] minocycline 2021- No Diffuse 100mg Take 1 [facility] (MINOCIN) 09-28 large capsule ity o f 100 mg 00:00: 04:59 B-cell (100 mg) [place] capsule 00 :00 lymphoma, by mouth MD not twice [place] otherwise daily for n specified 16 days. [facility] metroNIDAZO 2021- No Diffuse 500mg Take 1 [facility] LE (FlagyL) 09-28 large tablet ity of 500 mg 00:00: 04:59 B-cell (500 mg) [place] tablet 00 :00 lymphoma, by mouth MD not twice [place] otherwise daily for n specified 16 days. [facility] fluconazole 2021- No Diffuse 200mg Take 1 [facility] (Diflucan) 09-28 large tablet ity o f 200 mg 00:00: 04:59 B-cell (200 mg) [place] tablet 00 :00 lymphoma, by mouth MD not daily for Anderso otherwise 16 days. n specified [facility] ciprofloxac 2021- No Diffuse 500mg Take 1 [facility] in HCl 09-28 large tablet ity of (Cipro) 500 00:00: 04:59 B-cell (500 mg) [place] mg tablet 00 :00 lymphoma, by mouth M D not twice [place]o otherwise daily for n specified 16 days. [facility] minocycline 2021- No Diffuse 100mg Take 1 [facility] (MINOCIN) 09-28 large capsule ity o f 100 mg 00:00: 04:59 B-cell (100 mg) [place] capsule 00 :00 lymphoma, by mouth MD not twice [place] otherwise daily for n specified 16 days. [facility] metroNIDAZO 2021- No Diffuse 500mg Take 1 [facility] LE (FlagyL) 09-28 large tablet ity of 500 mg 00:00: 04:59 B-cell (500 mg) [place] tablet 00 :00 lymphoma, by mouth MD not twice [place] otherwise daily for n specified 16 days. [facility] fluconazole 2021- No Diffuse 200mg Take 1 [facility] (Diflucan) 09-2820 large tablet ity o f 200 mg 00:00: 04:59 B-cell (200 mg) [place] tablet 00 :00 lymphoma, by mouth MD not daily for Anderso otherwise 16 days. n specified [facility] ciprofloxac 2021- No Diffuse 500mg Take 1 [facility] in HCl 09-28 large tablet ity of (Cipro) 500 00:00: 04:59 B-cell (500 mg) [place] mg tablet 00 :00 lymphoma, by mouth M D not twice [place]o otherwise daily for n specified 16 days. [facility] minocycline 2021- No Diffuse 100mg Take 1 [facility] (MINOCIN) 09-28 large capsule ity o f 100 mg 00:00: 04:59 B-cell (100 mg) [place] capsule 00 :00 lymphoma, by mouth MD not twice [place] otherwise daily for n specified 16 days. [facility] metroNIDAZO 2021- No Diffuse 500mg Take 1 [facility] LE (FlagyL) 09-28 large tablet ity of 500 mg 00:00: 04:59 B-cell (500 mg) [place] 00 :00 lymphoma, by mouth MD not twice [place] otherwise daily for n specified 16 days. [facility] fluconazole 2021- No Diffuse 200mg Take 1 [facility] (Diflucan) 09-28 large tablet ity o f 200 mg 00:00: 04:59 B-cell (200 mg) [place] 00 :00 lymphoma, by mouth MD not daily for Anderso otherwise 16 days. n specified [facility] ciprofloxac 2021- No Diffuse 500mg Take 1 [facility] in HCl 09-2820 large tablet ity of (Cipro) 500 00:00: 04:59 B-cell (500 mg) [place] mg tablet 00 :00 lymphoma, by mouth M D not twice [place]o otherwise daily for n specified 16 days. [facility] minocycline 2021- No Diffuse 100mg Take 1 [facility] (MINOCIN) 09-28- large capsule ity o f 100 mg 00:00: 04:59 B-cell (100 mg) [place] capsule 00 :00 lymphoma, by mouth MD not twice [place] otherwise daily for n specified 16 days. [facility] metroNIDAZO 2021- No Diffuse 500mg Take 1 [facility] LE (FlagyL) 09-28 large tablet ity of 500 mg 00:00: 04:59 [place] :[place], by mouth MD not twice [place] otherwise daily for n specified 16 days. [facility] fluconazole 2021- No Diffuse 200mg Take 1 [facility] (Diflucan) 09-28 large tablet ity o f 200 mg 00:00: 04:59 [place]cell [place]200 mg[place] :[place] lymphoma, by mouth MD not daily for Anderso otherwise 16 days. n specified [facility] ciprofloxac 2021- No Diffuse 500mg Take 1 [facility] in HCl 09-28 large tablet ity of (Cipro) 500 00:00: 04:59 B-cell (500 mg) [place] mg tablet 00 :00 lymphoma, by mouth M D not twice [place] otherwise daily for n specified 16 days. [facility] minocycline 2021- No Diffuse 100mg Take 1 [facility] (MINOCIN) 09-28 large capsule ity o f 100 mg 00:00: 04:59 [place] (100 mg[place] :00 lymphoma, by mouth MD not twice [place] otherwise daily for n specified 16 days. [facility] metroNIDAZO 2021- No Diffuse 500mg Take 1 [facility] LE (FlagyL) 09-28 large tablet ity of 500 mg 00:00: 04:59 [place]500 mg[place] :00 lymphoma, by mouth MD not twice [place] otherwise daily for n specified 16 days. [facility] fluconazole 2021- No Diffuse 200mg Take 1 [facility] (Diflucan) 09-28-20 large tablet ity o f 200 mg 00:00: 04:59 [place]cell (200 mg[place] :00 lymphoma, by mouth MD not daily for [place] otherwise 16 days. n specified [facility] HYDROmorpho 2022-0 202- No Uncontrolle 4mg Take 1 [facility] ne 6-03 06-15 d pain tablet (4 ity of (DILAUDID) 00:00: 00:00 mg[place] 00 :00 mouth MD every 3 [place] (three) n hours as Cancer needed for Center severe pain or moderate pain. HYDROmorpho 202-0 202- No Uncontrolle 4mg Take 1 [facility] ne 6-03 06-15 d pain tablet (4 ity of (DILAUDID) 00:00: 00:00 mg[place] 00 :00 mouth MD every 3 [place] (three) n hours as Cancer needed for Center severe pain or moderate pain. HYDROmorpho 2021-0 202- No Uncontrolle 4mg Take 1 [facility] ne 6-03 06-15 d pain tablet (4 ity of (DILAUDID) 00:00: 00:00 mg[place] 00 :00 mouth MD every 3 [place] (three) n hours as Cancer needed for Center severe pain or moderate pain. HYDROmorpho 2021-0 2021- No Uncontrolle 4mg Take 1 [facility] ne 6-03 06-15 d pain tablet (4 ity of (DILAUDID) 00:00: 00:00 mg[place] 00 :00 mouth MD every 3 [place] (three) n hours as Cancer needed for Center severe pain or moderate pain. HYDROmorpho 2022-0 202- No Uncontrolle 4mg Take 1 [facility] ne 6-03 06-15 d pain tablet (4 ity of (DILAUDID) 00:00: 00:00 mg[place] 00 :00 mouth MD every 3 [place] (three) n hours as Cancer needed for Center severe pain or moderate pain. HYDROmorpho 202-0 202- No Uncontrolle 4mg Take 1 [facility] ne 6-03 06-15 d pain tablet (4 ity of (DILAUDID) 00:00: 00:00 mg[place] tablet 00 :00 mouth MD every 3 [place] (three) n hours as Cancer needed for Center severe pain or moderate pain. HYDROmorpho 2022-0 2022- No Uncontrolle 4mg Take 1 [facility] ne 6- 06-15 d pain tablet (4 ity of (DILAUDID) 00:00: 00:00 mg[place] tablet 00 :00 mouth MD every 3 [place] (three) n hours as Cancer needed for Center severe pain or moderate pain. HYDROmorpho 2022-0 2022- No Uncontrolle 4mg Take 1 [facility] ne 6- 06-15 d pain tablet (4 ity of (DILAUDID) 00:00: 00:00 mg[place] tablet 00 :00 mouth MD every 3 [place] (three) n hours as Cancer needed for Center severe pain or moderate pain. carbidopa-l 2022-0 2022- No 0.5 tabs M ethodi evodopa 09-[address] (Sinemet) 00:00: 00:00 1 week, 1 [facility] 25-100 mg 00 :00 tab PO BID l per tablet for 1 week, then 1 tab PO TID carbidopa-l 2022-0 2022- No 0.5 tabs M ethodi evodopa 09-[address] (Sinemet) 00:00: 00:00 1 week, 1 Ho [facility] 25-100 mg 00 :00 tab PO BID l per tablet for 1 week, then 1 tab PO TID carbidopa-l 2022-0 2022- No 0.5 tabs M ethodi evodopa 09-[address] (Sinemet) 00:00: 00:00 1 week, 1 Ho spita 25-100 mg 00 :00 tab PO BID l per tablet for 1 week, then 1 tab PO TID carbidopa-l 2022-0 2022- No 0.5 tabs M ethodi evodopa 09-[address] (Sinemet) 00:00: 00:00 1 week, 1 Ho spita 25-100 mg 00 :00 tab PO BID l per tablet for 1 week, then 1 tab PO TID carbidopa-l 2022-0 2022- No 0.5 tabs M ethodi evodopa 09-[address] (Sinemet) 00:00: 00:00 1 week, 1 Ho spita 25-100 mg 00 :00 tab PO BID l per tablet for 1 week, then 1 tab PO TID carbidopa-l 2022-0 2022- No 0.5 tabs M ethodi evodopa 09-[address] (Sinemet) 00:00: 00:00 1 week, 1 Ho spita 25-100 mg 00 :00 tab PO BID l per tablet for 1 week, then 1 tab PO TID carbidopa-l 2022-0 2022- No 0.5 tabs M ethodi evodopa 09-[address] (Sinemet) 00:00: 00:00 1 week, 1 Ho spita 25-100 mg 00 :00 tab PO BID l per tablet for 1 week, then 1 tab PO TID carbidopa-l 2022-0 2022- No 0.5 tabs M ethodi evodopa 09-[address] (Sinemet) 00:00: 00:00 1 week, 1 Ho spita 25-100 mg 00 :00 tab PO BID l per tablet for 1 week, then 1 tab PO TID carbidopa-l 2022-0 2022- No 0.5 tabs M ethodi evodopa 09-[address] (Sinemet) 00:00: 00:00 1 week, 1 Ho spita 25-100 mg 00 :00 tab PO BID l per tablet for 1 week, then 1 tab PO TID carbidopa-l 2022-0 2022- No 0.5 tabs M ethodi evodopa 09-[address] (Sinemet) 00:00: 00:00 1 week, 1 Ho spita 25-100 mg 00 :00 tab PO BID l per tablet for 1 week, then 1 tab PO TID cyclobenzap 2022-0 2022- No 10mg Q.5D Take 10 mg [facility] 05-[address] (FLEXERIL) 08:46: 00:00 (two) Hospi ta 10 mg 36 :00 times a l tablet day as needed for muscle spasms. cyclobenzap 2022-0 2022- No 10mg Q.5D Take 10 mg Methodi rine 05-[address] (FLEXERIL) 08:46: 00:00 (two) Hospi ta 10 mg 36 :00 times a l tablet day as needed for muscle spasms. cyclobenzap 2021- No 10mg Q.5D Take 10 mg Methodi rine 05-[address] (FLEXERIL) 08:46: 00:00 (two) Hospi ta 10 mg 36 :00 times a l tablet day as needed for muscle spasms. HYDROcodone 2020-04 Yes 1{tbl} Q.25D Take 1 M ethodi -acetaminop 2-[address] hen (TwtBks) 00:00: mouth 4 Hos [place] 7.5-325 mg 00 (four) l per tablet times a day. traMADoL 2020-04 Yes 50mg Q.25D Take 1 Method i (ULTRAM) 50 2-[address] mg tablet 00:00: mouth 4 Hospi ta 00 (four) l times a day. HYDROcodone 2020-04 Yes 1{tbl} Q.25D Take 1 M ethodi -acetaminop 2-[address] hen (TwtBks) 00:00: mouth 4 Hos [place] 7.5-325 mg 00 (four) l per tablet times a day. traMADoL 2020-04 Yes 50mg Q.25D Take 1 Method i (ULTRAM) 50 2-[address] mg tablet 00:00: mouth 4 Hospi ta 00 (four) l times a day. HYDROcodone 2020-04 Yes 1{tbl} Q.25D Take 1 M ethodi -acetaminop 2-[address] hen (TwtBks) 00:00: mouth 4 Hos [place] 7.5-325 mg 00 (four) l per tablet times a day. traMADoL 2020-04 Yes 50mg Q.25D Take 1 Method i (ULTRAM) 50 2-[address] mg tablet 00:00: mouth 4 Hospi ta 00 (four) l times a day. HYDROcodone 2020-04 Yes 1{tbl} Q.25D Take 1 M ethodi -acetaminop 2-[address] hen (TwtBks) 00:00: mouth 4 Hos [place] 7.5-325 mg 00 (four) l per tablet times a day. traMADoL 2020-04 Yes 50mg Q.25D Take 1 Method i (ULTRAM) 50 2-[address] mg tablet 00:00: mouth 4 Hospi ta 00 (four) l times a day. HYDROcodone 2020-04 Yes 1{tbl} Q.25D Take 1 M ethodi -acetaminop 2-[address] hen (TwtBks) 00:00: mouth 4 Hos [place] 7.5-325 mg 00 (four) l per tablet times a day. traMADoL 2020-04 Yes 50mg Q.25D Take 1 Method i (ULTRAM) 50 2-[address] mg tablet 00:00: mouth 4 Hospi ta 00 (four) l times a day. HYDROcodone 2020-04 Yes 1{tbl} Q.25D Take 1 M ethodi -acetaminop 2-[address] hen (TwtBks) 00:00: mouth 4 Hos [place] 7.5-325 mg 00 (four) l per tablet times a day. traMADoL 2020-04 Yes 50mg Q.25D Take 1 Method i (ULTRAM) 50 2-[address] mg tablet 00:00: mouth 4 Hospi ta 00 (four) l times a day. HYDROcodone 2020-04 Yes 1{tbl} Q.25D Take 1 M ethodi -acetaminop 2-[address] hen (TwtBks) 00:00: mouth 4 Hos [place] 7.5-325 mg 00 (four) l per tablet times a day. traMADoL 2020-04 Yes 50mg Q.25D Take 1 Method i (ULTRAM) 50 2-[address] mg tablet 00:00: mouth 4 Hospi ta 00 (four) l times a day. HYDROcodone 2020-04 Yes 1{tbl} Q.25D Take 1 M ethodi -acetaminop 2-[address] hen (TwtBks) 00:00: mouth 4 Hos [place] 7.5-325 mg 00 (four) l per tablet times a day. traMADoL 2020-04 Yes 50mg Q.25D Take 1 Method i (ULTRAM) 50 2-[address] mg tablet 00:00: mouth 4 Hospi ta 00 (four) l times a day. HYDROcodone 2020-04 Yes 1{tbl} Q.25D Take 1 M ethodi -acetaminop 2-[address] hen (NORCO) 00:00: mouth 4 Hos [place] 7.5-325 mg 00 (four) l per tablet times a day. traMADoL 2020-04 Yes 50mg Q.25D Take 1 Method i (ULTRAM) 50 2-[address] mg tablet 00:00: mouth 4 Hospi ta 00 (four) l times a day. HYDROcodone 2020-04 Yes 1{tbl} Q.25D Take 1 M ethodi -acetaminop 2-[address] hen (NORMI) 00:00: mouth 4 Hos [place] 7.5-325 mg 00 (four) l per tablet times a day. traMADoL 2020-04 Yes 50mg Q.25D Take 1 Method i (ULTRAM) 50 2-[address] mg tablet 00:00: mouth 4 Hospi ta 00 (four) l times a day. hydrOXYchlo 2020-1 Yes 200mg QD Take 1 Met hodi roQUINE 2-[address] (PLAQUENIL) 00:00: mouth Hospi ta 200 mg 00 daily. l tablet hydrOXYchlo 2020-1 Yes 200mg QD Take 1 Met hodi roQUINE 2-[address] (PLAQUENIL) 00:00: mouth Hospi ta 200 mg 00 daily. l tablet hydrOXYchlo 2020-1 Yes 200mg QD Take 1 Met hodi roQUINE 2-[address] (PLAQUENIL) 00:00: mouth Hospi ta 200 mg 00 daily. l tablet hydrOXYchlo 2020-1 Yes 200mg QD Take 1 Met hodi roQUINE 2-[address] (PLAQUENIL) 00:00: mouth Hospi ta 200 mg 00 daily. l tablet hydrOXYchlo 2021-1 Yes 200mg QD Take 1 Met hodi roQUINE 2-[address] (PLAQUENIL) 00:00: mouth Hospi ta 200 mg 00 daily. l tablet hydrOXYchlo 2020-1 Yes 200mg QD Take 1 Met hodi roQUINE 2-[address] (PLAQUENIL) 00:00: mouth Hospi ta 200 mg 00 daily. l tablet hydrOXYchlo 2020-1 Yes 200mg QD Take 1 Met hodi roQUINE 2-[address] (PLAQUENIL) 00:00: mouth Hospi ta 200 mg 00 daily. l tablet hydrOXYchlo 2020-04 Yes 200mg QD Take 1 Met hodi roQUINE 2-[address] (PLAQUENIL) 00:00: mouth Hospi ta 200 mg 00 daily. l tablet hydrOXYchlo 2020-04 Yes 200mg QD Take 1 Met hodi roQUINE 2-[address] (PLAQUENIL) 00:00: mouth Hospi ta 200 mg 00 daily. l tablet hydrOXYchlo 2020-04 Yes 200mg QD Take 1 Met hodi roQUINE 2-[address] (PLAQUENIL) 00:00: mouth Hospi ta 200 mg 00 daily. l tablet predniSONE 2020-04- No 1{tbl} Q.5D Take 1 [facility] (DELTASONE) 2- 05-[address] 10 mg 00:00: 00:00 mouth 2 Hospita tablet 00 :00 (two) l times a day. predniSONE 2020-2021- No 1{tbl} Q.5D Take 1 [facility] (DELTASONE) 2- 05-[address] 10 mg 00:00: 00:00 mouth 2 Hospita tablet 00 :00 (two) l times a day. predniSONE 2020-2021- No 1{tbl} Q.5D Take 1 [facility] (DELTASONE) 2- 05-[address] 10 mg 00:00: 00:00 mouth 2 Hospita tablet 00 :00 (two) l times a day. predniSONE 2020-04- No 1{tbl} Q.5D Take 1 [facility] (DELTASONE) 2- 05-[address] 10 mg 00:00: 00:00 mouth 2 Hospita tablet 00 :00 (two) l times a day. predniSONE 2020-04- No 1{tbl} Q.5D Take 1 [facility] (DELTASONE) 2- 05-[address] 10 mg 00:00: 00:00 mouth 2 Hospita tablet 00 :00 (two) l times a day. predniSONE 2020-04- No 1{tbl} Q.5D Take 1 [facility] (DELTASONE) 2- 05-[address] 10 mg 00:00: 00:00 mouth 2 Hospita tablet 00 :00 (two) l times a day. predniSONE 2020-04- No 1{tbl} Q.5D Take 1 [facility] (DELTASONE) 2- 05-[address] 10 mg 00:00: 00:00 mouth 2 Hospita tablet 00 :00 (two) l times a day. predniSONE 2020-04- No 1{tbl} Q.5D Take 1 [facility] (DELTASONE) 05-30 05-[address] 10 mg 00:00: 00:00 mouth 2 Hospita tablet 00 :00 (two) l times a day. predniSONE 2020-04- No 1{tbl} Q.5D Take 1 [facility] (DELTASONE) 05-30-[address] 10 mg 00:00: 00:00 mouth 2 Hospita tablet 00 :00 (two) l times a day. predniSONE 2020-04- No 1{tbl} Q.5D Take 1 [facility]odi (DELTASONE) 05-[address] 10 mg 00:00: 00:00 mouth 2 Hospita tablet 00 :00 (two) l times a day. neomycin-po 2020-04 Yes PRN, Univer s lymyxin-dex 0-07 Starting ity of amethasone 14:25: on Rachel [place] (MAXITROL) 00 02/01/21 at Med ical 3.5 0925, Branch mg/g-10,000 Until unit/g-0.1 Discontinu % ed, ophthalmic Routine, ointment Intra-op neomycin-po 2020-04- No PRN, Unive rs lymyxin-dex 0-07 10-07 Starting ity of amethasone 14:25: 17:07 [place] (MAXITROL[place] 00 :37 02/01/21 at Med ical 3.5 0925, Branch mg/g-10,000 Until Rachel unit/g-0.1 02/01/21 at % 1207, ophthalmic Routine, ointment Intra-op DUOVISC 2020-04 Yes PRN, [facility] [place] [facility] (DUOVISC 0-07 Starting ity of VISCO 14:24: on Rachel [place] ELASTIC) 3 00 02/01/21 at Med ical %-4 %(0.5 0924, Branch mL) 1 % Until (0.55 mL) Discontinu intraocular ed, injection Routine, Intra-op dexamethaso 2020-04 Yes PRN, Univer s ne 0-07 Starting ity of (DECADRON 14:24: on Rachel [place] PHOSPHATE) 00 02/01/21 at Med ical injection 24, Branch Until Discontinu ed, Routine, Intra-op ceFAZolin 2020-04 Yes PRN, Univers (ANCEF) 0-07 Starting ity of injection 14:24: on Rachel [place] 00 02/01/21 at Medical 09, Branch Until Discontinu ed, LEONARD, Intra-op balanced 2020-04 Yes PRN, Univers salt soln 0-07 Starting ity of no.2 irrig. 14:24: [place] (BSS[place] 00 02/01/21 at [facility] ophthalmic 24, Branch solution Until Discontinu ed, Routine, Intra-op DUOVISC 2020-04- No PRN, Univers (DUOVISC 0-07 10-07 Starting ity of VISCO 14:24: 17:07 on Rachel [place] ELASTIC) 3 00 :37 02/01/21 at Med ical %-4 %(0.5 0924, Branch mL) 1 % Until Rachel (0.55 mL) 02/01/21 at intraocular 1207, injection Routine, Intra-op dexamethaso 2020-04- No PRN, Unive rs ne 0-07 10-07 Starting ity of (DECADRON 14:24: 17:07 on Rachel [place] PHOSPHATE) 00 :37 02/01/21 at Med ical injection 0924, Branch Until Rachel 02/01/21 at 1207, Routine, Intra-op ceFAZolin 2020-04- No PRN, Univers (ANCEF) 0-07 10-07 Starting ity of injection 14:24: 17:07 on Rachel [place] 00 :37 10 at Medical 0924, Branch Until Rachel 02/01/21 at 1207, LEONARD, Intra-op balanced 2020-04- No PRN, Univers salt soln 0-07 10-07 Starting ity o f no.2 irrig. 14:24: 17:07 on Rachel [place] (BSS) 00 :37 02/01/21 at [facility] 0924, Branch solution Until Rachel 02/01/21 at 1207, Routine, Intra-op tetracaine 2020-04 Yes PRN, Univers (PONTOCAINE 0-07 Starting ity of ) 0.5 % 14:12: on Rachel [place] ophthalmic 00 02/01/21 at [facility] ical drops 09, Branch Until Discontinu ed, Routine, Intra-op eye block 2020-04 Yes PRN, Univers syringe 11 0-07 Starting ity o f mL 14:12: on Rachel [place] 00 02/01/21 at [facility] 09, [place] Until Discontinu ed, Intra-op tetracaine 2020-04- No PRN, Univer s (PONTOCAINE 0-07 10-07 Starting ity of ) 0.5 % 14:12: 17:07 on [facility] ophthalmic 00 :37 02/01/21 at [facility] ical drops 0912, Branch Until Rachel 02/01/21 at 1207, Routine, Intra-op eye block 2020-04- No PRN, Univers syringe 11 0-07 10-07 Starting ity of mL 14:12: 17:07 on [facility] [place] 00 :37 02/01/21 at [facility] 0912, Branch Until Rachel 02/01/21 at 1207, Intra-op mydriatic 2020-04- No .5mL 0.5 mL, Univ ers #5 0-07 10-07 Left Eye, ity of ophthalmic 12:45: 13:07 ONCE, 1 [place] solution 00 :00 dose, On Medical 0.5 mL Rachel Branch syringe 02/01/21 at 0745, Routine, DSU Pre-op lactated 2020-04- No 1000mL at 42 Unive rs ringers IV 0-07 10-07 mL/hr, ity of infusion 12:45: 13:07 1,000 mL, [place] 1,000 mL 00 :00 IV Medical Infusion, Branch ONCE, 1 dose, On Rachel 02/01/21 at 0745, Routine, DSU Pre-op mydriatic 2020-04- No .5mL 0.5 mL, Univ ers #5 0-07 10-07 Left Eye, ity of ophthalmic 12:45: 13:07 ONCE, 1 [place] solution 00 :00 dose, On Medical 0.5 mL Rachel Branch syringe 02/01/21 at 0745, Routine, DSU Pre-op lactated 2020-04- No 1000mL at 42 Unive rs ringers IV 0-07 10-07 mL/hr, ity of infusion 12:45: 13:07 1,000 mL, [place] 1,000 mL 00 :00 IV Medical Infusion, Branch ONCE, 1 dose, On Rachel 02/01/21 at 0745, Routine, DSU Pre-op gabapentin 2020-04 Yes Take by [facility] ers ER 600 mg 0-07 mouth ity of tablet, 10:07: daily. [place] [address] Medical release 24 Branch hr omeprazole 2020-04 Yes 40mg Take 40 mg U nivers 40 mg 0-07 by mouth ity of capsule 10:07: daily. [address] traMADoL 50 2020-04 Yes 50mg Take 50 mg Univers mg tablet 0-07 by mouth ity of 10:07: every 6 [place] [id number] (six) Medical hours as Branch needed. gabapentin 2020-04 Yes Take by [facility] ers ER 600 mg 0-07 mouth ity of tablet, 10:07: daily. [place] [address] Medical release 24 Branch hr omeprazole 2020-04 Yes 40mg Take 40 mg U nivers 40 mg 0-07 by mouth ity of capsule 10:07: daily. [address] traMADoL 50 2020-04 Yes 50mg Take 50 mg Univers mg tablet 0-07 by mouth ity of 10:07: every 6 [place] [address] (six) Medical hours as Branch needed. gabapentin 2020-04 Yes Take by [facility] ers ER 600 mg 0-07 mouth ity of tablet, 10:07: daily. [place] [address] Medical release 24 Branch hr omeprazole 2020-04 Yes 40mg Take 40 mg U nivers 40 mg 0-07 by mouth ity of capsule 10:07: daily. [address] traMADoL 50 2020-04 Yes 50mg Take 50 mg Univers mg tablet 0-07 by mouth ity of 10:07: every 6 [place] [address] (six) Medical hours as Branch needed. gabapentin 2020-04 Yes Take by Univ ers ER 600 mg 0-07 mouth ity of tablet, 10:07: daily. [place] [address] Medical release 24 Branch hr omeprazole 2020-1 Yes 40mg Take 40 mg U nivers 40 mg 0-07 by mouth ity of capsule 10:07: daily. [place] [address] Medical Branch traMADoL 50 2020-1 Yes 50mg Take 50 mg Univers mg tablet 0-07 by mouth ity of 10:07: every 6 [place] [address] (six) Medical hours as Branch needed. gabapentin 2020-0 Yes Take by Univ ers ER 600 mg 8-26 mouth ity of tablet, 18:21: daily. [place] [address] Medical release 24 Branch hr omeprazole 2020-0 Yes 40mg Take 40 mg U nivers 40 mg 8-26 by mouth ity of capsule 18:21: daily. [address] Branch traMADoL 50 2020-0 Yes 50mg Take 50 mg Univers mg tablet 8-26 by mouth ity of 18:21: every 6 [place] [address] (six) Medical hours as Branch needed. gabapentin 2020-0 Yes Take by Univ ers ER 600 mg 8-26 mouth ity of tablet, 18:21: daily. [place] [address] Medical release 24 Branch hr omeprazole 2020-0 Yes 40mg Take 40 mg U nivers 40 mg 8-26 by mouth ity of capsule 18:21: daily. [address] Branch traMADoL 50 2020-0 Yes 50mg Take 50 mg Univers mg tablet 8-26 by mouth ity of 18:21: every 6 [place] [address] (six) Medical hours as Branch needed. gabapentin 2020-0 Yes Take by Univ ers ER 600 mg 8-26 mouth ity of tablet, 18:21: daily. [place] [address] Medical release 24 Branch hr omeprazole 2020-0 Yes 40mg Take 40 mg U nivers 40 mg 8-26 by mouth ity of capsule 18:21: daily. [address] Branch traMADoL 50 2020-0 Yes 50mg Take 50 mg Univers mg tablet 8-26 by mouth ity of 18:21: every 6 [place] [address] (six) Medical hours as Branch needed. gabapentin 1-0 Yes Take by Univ ers ER 600 mg 8-26 mouth ity of tablet, 18:21: daily. [place] [address] Medical release 24 Branch hr omeprazole 2020-0 Yes 40mg Take 40 mg U nivers 40 mg 8-26 by mouth ity of capsule 18:21: daily. [address] traMADoL 50 2020-0 Yes 50mg Take 50 mg Univers mg tablet 8-26 by mouth ity of 18:21: every 6 [place] [address] (six) Medical hours as Branch needed. gabapentin 2020-0 Yes Take by [facility] ers ER 600 mg 8- mouth ity of tablet, 18:21: daily. [place] [address] Medical release 24 Branch hr omeprazole 2020-0 Yes 40mg Take 40 mg U nivers 40 mg 8-26 by mouth ity of capsule 18:21: daily. [address] traMADoL 50 2020-0 Yes 50mg Take 50 mg Univers mg tablet 8-26 by mouth ity of 18:21: every 6 [place] [address] (six) Medical hours as Branch needed. gabapentin 2020-0 Yes Take by [facility] ers ER 600 mg 8-26 mouth ity of tablet, 18:21: daily. [place] [address] Medical release 24 Branch hr omeprazole 2020-0 Yes 40mg Take 40 mg U nivers 40 mg 8- by mouth ity of capsule 18:21: daily. [address] traMADoL 50 2020-0 Yes 50mg Take 50 mg Univers mg tablet 8- by mouth ity of 18:21: every 6 [place] [address] (six) Medical hours as Branch needed. balanced 2020-0 Yes PRN, Univers salt soln 12-21 Starting ity of no.2 irrig. 17:09: Rachel [place] (BSS) 12/21/20 at [facility] ophthalmic [facility], Branch solution Until Discontinu ed, Routine, Intra-op ceFAZolin 0 Yes PRN, Univers (ANCEF) 12-21 Starting ity of injection 17:09: [facility] 12/21/20 at [place] [id number], Branch Until Discontinu ed, LEONARD, Intra-op dexamethaso 0 Yes PRN, Univer s ne 12-21 Starting ity of (DECADRON 17:09: [facility] PHOSPHATE) 12/21/20 at [facility] injection [facility], Branch Until Discontinu ed, Routine, Intra-op DUOVISC 2020-0 Yes PRN, Univers (DUOVISC 12-21 Starting ity of VISCO 17:09: [facility] ELASTIC) 3 12/21/20 at Med ical %-4 %(0.5 1209, Branch mL) 1 % Until (0.55 mL) Discontinu intraocular ed, injection Routine, Intra-op balanced Yes PRN, Univers salt soln 12-21 Starting ity of no.2 irrig. 17:09: Rachel [place] (BSS) 00 12/21/20 at [facility] ophthalmic 1209, Branch solution Until Discontinu ed, Routine, Intra-op ceFAZolin Yes PRN, Univers (ANCEF) 12-21 Starting ity of injection 17:09: Rachel [place] 00 12/21/20 at [place] [id number], Branch Until Discontinu ed, LEONARD, Intra-op dexamethaso Yes PRN, Univer s ne 12-21 Starting ity of (DECADRON 17:09: Rachel [place] PHOSPHATE) 12/21/20 at [facility] ical injection 1209, Branch Until Discontinu ed, Routine, Intra-op DUOVISC Yes PRN, Univers (DUOVISC 12-21 Starting ity of VISCO 17:09: Rachel [place] ELASTIC) 3 00 12/21/20 at [facility] ical %-4 %(0.5 1209, Branch mL) 1 % Until (0.55 mL) Discontinu intraocular ed, injection Routine, Intra-op balanced 2020- No PRN, Univers salt soln 12-21 Starting ity o f no.2 irrig. 17:09: 20:21 [facility] (BSS) 00 :35 12/21/20 at [facility] ophthalmic 1209, Branch solution Until Fri12/21/20 at 1521, Routine, Intra-op ceFAZolin 2020- No PRN, Univers (ANCEF) 12-21 Starting ity of injection 17:09: 20:21 Rachel [place] 00 :35 12/21/20 at [facility] 1209, Branch Until Fri12/21/20 at 1521, LEONARD, Intra-op dexamethaso 2020- No PRN, Univ rs ne 12-21 Starting ity of (DECADRON 17:09: 20:21 [facility] PHOSPHATE) 00 :35 12/21/20 at [facility] ical injection 1209, Branch Until Rachel 12/21/20 at 1521, Routine, Intra-op DUOVISC 2020- No PRN, Univers (DUOVISC 12-21 Starting ity of VISCO 17:09: 20:21 Rachel [place] ELASTIC) 3 00 :35 12/21/20 at Med ical %-4 %(0.5 1209, Branch mL) 1 % Until Rachel (0.55 mL) 12/21/20 at intraocular 1521, injection Routine, Intra-op balanced 2020- No PRN, Univers salt soln 12-21 Starting ity o f no.2 irrig. 17:09: 20:21 Rachel [place] (BSS) 00 :35 12/21/20 at [facility] ophthalmic 1209, Branch solution Until Rachel 12/21/20 at 1521, Routine, Intra-op ceFAZolin 2020- No PRN, Univers (ANCEF) 12-21 Starting ity of injection 17:09: 20:21 Rachel [place] 00 :35 12/21/20 at [facility] 1209, Branch Until Rachel 12/21/20 at 1521, LEONARD, Intra-op dexamethaso 2020- No PRN, Unive rs ne 12-21 Starting ity of (DECADRON 17:09: 20:21 Rachel [place] PHOSPHATE) 00 :35 12/21/20 at Med ical injection 1209, Branch Until Rachel 12/21/20 at 1521, Routine, Intra-op DUOVISC 2020- No PRN, Univers (DUOVISC 12-21 Starting ity of VISCO 17:09: 20:21 Rachel [place] ELASTIC) 3 00 :35 12/21/20 at Med ical %-4 %(0.5 1209, Branch mL) 1 % Until Rachel (0.55 mL) 12/21/20 at intraocular 1521, injection Routine, Intra-op EPINEPHrine Yes PRN, Univer s (PF) 12-21 Starting ity of 1:1,000 (1 17:08: Rachel [place] mg/mL) 00 12/21/20 at Medical (ADRENALIN 1208, Branch (PF)) Until injection Discontinu ed, Routine, Intra-op gentamicin Yes PRN, Univers injection 12-21 Starting ity of 17:08: Rachel [place] 00 12/21/[address] Until Discontinu ed, LEONARD, Intra-op NaCl 0.9% Yes PRN, Univers (NS) 12-21 Starting ity of injection 17:08: Rachel [place] 00 12/21/[address] Until Discontinu ed, Routine, Intra-op EPINEPHrine Yes PRN, Univer s (PF) 12-21 Starting ity of 1:1,000 (1 17:08: Rachel [place] mg/mL) 00 12/21/20 at [facility] (ADRENALIN 1208, Branch (PF)) Until injection Discontinu ed, Routine, Intra-op gentamicin Yes PRN, Univers injection 12-21 Starting ity of 17:08: Rachel [place] 00 12/21/20 at [place] [address], [place] Until Discontinu ed, LEONARD, Intra-op NaCl 0.9% Yes PRN, Univers (NS) 12-21 Starting ity of injection 17:08: Rachel [place] 00 12/21/20 at [place] [address], [place] Until Discontinu ed, Routine, Intra-op EPINEPHrine 2020- No PRN, Unive rs (PF) 12-21 Starting ity of 1:1,000 (1 17:08: 20:21 Rachel [place] mg/mL) 00 :35 12/21/20 at [facility] (ADRENALIN 1208, Branch (PF)) Until Rachel injection 12/21/20 at 1521, Routine, Intra-op gentamicin 2020- No PRN, Univer s injection 12-21 Starting ity o f 17:08: 20:21 Rachel [place] 00 :35 12/21/20 at [place] [address], Branch Until Rachel 12/21/20 at 1521, LEONARD, Intra-op NaCl 0.9% 2020- No PRN, Univers (NS) 12-21 Starting ity of injection 17:08: 20:21 Rachel [place] 00 :35 12/21/20 at [place] [address], Branch Until Rachel 8/26/21 at 1521, Routine, Intra-op EPINEPHrine 2020- No PRN, Unive rs (PF) 12-21 Starting ity of 1:1,000 (1 17:08: 20:21 [place] mg/mL) 00 :35 12/21/20 at [facility] (ADRENALIN 1208, Branch (PF)) Until Rachel injection 12/21/20 at 1521, Routine, Intra-op gentamicin 2020- No PRN, Univer s injection 12-21 Starting ity o f 17:08: 20:21 Rachel [place] 00 :35 12/21/20 at [facility] 1208, Branch Until Rachel 12/21/20 at 1521, LEONARD, Intra-op NaCl 0.9% 2020- No PRN, Univers (NS) 12-21 Starting ity of injection 17:08: 20:21 [place] 00 :35 12/21/20 at [facility] 1208, Branch Until Rachel 12/21/20 at 1521, Routine, Intra-op ne[facility]-po Yes [facility], [facility] Starting ity of amethasone 17:07: Rachel [place] (MAXITROL) 00 12/21/20 at [facility] ical 3.5 1207, Branch mg/g-10,000 Until unit/g-0.1 Discontinu % ed, ophthalmic Routine, ointment Intra-op neomycin-po Yes PRN, [facility] 12-21 Starting ity of amethasone 17:07: [place] (MAXITROL) 00 12/21/20 at [facility] ical 3.5 1207, Branch mg/g-10,000 Until unit/g-0.1 Discontinu % ed, ophthalmic Routine, ointment Intra-op neomycin-po 2020- No PRN, [facility] 12-21 Starting ity of amethasone 17:07: 20:21 [place] (MAXITROL) 00 :35 12/21/20 at Med ical 3.5 1207, Branch mg/g-10,000 Until Rachel unit/g-0.1 8/26/21 at % 1521, ophthalmic Routine, ointment Intra-op neomycin-po 2020- No PRN, Unive rs lymyxin-dex 12-21 Starting ity of amethasone 17:07: 20:21 [place] (MAXITROL) 00 :35 12/21/20 at Med ical 3.5 1207, Branch mg/g-10,000 Until Rachel unit/g-0.1 12/21/20 at % 1521, ophthalmic Routine, ointment Intra-op water for Yes PRN, Univers irrigation 12-21 Starting ity o f irrigation 17:03: Rachel [place] solution 00 12/21/20 at Medic al 1203, Branch Until Discontinu ed, Routine, Intra-op water for Yes PRN, Univers irrigation 12-21 Starting ity o f irrigation 17:03: Rachel [place] solution 00 12/21/20 at Medic al 1203, Branch Until Discontinu ed, Routine, Intra-op water for 2020- No PRN, Univers irrigation 12-21 Starting ity of irrigation 17:03: 20:21 [place] solution 00 :35 12/21/20 at Medic al 1203, Branch Until Rachel 12/21/20 at 1521, Routine, Intra-op water for 2020- No PRN, Univers irrigation 12-21 Starting ity of irrigation 17:03: 20:21 [place] solution 00 :35 12/21/20 at Medic al 1203, Branch Until Rachel 12/21/20 at 1521, Routine, Intra-op tetracaine Yes PRN, Univers (PONTOCAINE 12-21 Starting ity of ) 0.5 % 17:02: [place] ophthalmic 00 12/21/20 at Med ical drops 1202, Branch Until Discontinu ed, Routine, Intra-op tetracaine Yes PRN, Univers (PONTOCAINE 12-21 Starting ity of ) 0.5 % 17:02: [place] ophthalmic 00 12/21/20 at Med ical drops 1202, Branch Until Discontinu ed, Routine, Intra-op tetracaine 2020- No PRN, Univer s (PONTOCAINE 12-21 Starting ity of ) 0.5 % 17:02: 20:21 Rachel [place] ophthalmic 00 :35 12/21/20 at [facility] ical drops 1202, Branch Until Rachel 12/21/20 at 1521, Routine, Intra-op tetracaine 2020- No PRN, Univer s (PONTOCAINE 12-21 Starting ity of ) 0.5 % 17:02: 20:21 [facility] ophthalmic 00 :35 12/21/20 at [facility] ical drops 1202, Branch Until Rachel 12/21/20 at 1521, Routine, Intra-op eye block Yes PRN, Univers syringe 12-21 Starting ity o f mL 17:01: Rachel [place] 00 12/21/20 at [place] [address], Branch Until Discontinu ed, Intra-op eye block Yes PRN, Univers syringe 12-21 Starting ity o f mL 17:01: Rachel [place] 00 12/21/20 at [place] [address], Branch Until Discontinu ed, Intra-op eye block 2020- No PRN, Univers syringe 11 12-21 Starting ity of mL 17:01: 20:21 [facility] 00 :35 12/21/20 at [place] [address], Branch Until Rachel 12/21/20 at 1521, Intra-op eye block 2020- No PRN, Univers syringe 11 12-21 Starting ity of mL 17:01: 20:21 [facility] 00 :35 12/21/20 at [place] [address], Branch Until Rachel 12/21/20 at 1521, Intra-op mydriatic 2020- No .5mL 0.5 mL, Univ ers #5 12-21 Right Eye, ity of ophthalmic 15:45: 15:51 ONCE, 1 Andrew as solution 00 :00 dose, Rachel Medica l 0.5 mL 12/21/20 at [place] syringe 1045, Routine, DSU Pre-op lactated 2020- No 1000mL at 42 Unive rs ringers IV 12-21 mL/hr, ity of infusion 15:45: 15:51 1,000 mL, Andrew as 1,000 mL 00 :00 IV Medical Infusion, Branch ONCE, 1 dose, Rachel 12/21/20 at 1045, Routine, DSU Pre-op mydriatic 2020- No .5mL 0.5 mL, Univ ers #5 12-21 Right Eye, ity of ophthalmic 15:45: 15:51 ONCE, 1 Andrew as solution 00 :00 dose, Rachel Medica l 0.5 mL 12/21/20 at Branch syringe 1045, Routine, DSU Pre-op lactated 2020- No 1000mL at 42 Unive rs ringers IV 12-21 08-26 mL/hr, ity of infusion 15:45: 15:51 1,000 mL, Andrew as 1,000 mL 00 :00 IV Medical Infusion, Branch ONCE, 1 dose, Rachel 12/21/20 at 1045, Routine, DSU Pre-op mydriatic 2020- No .5mL 0.5 mL, Univ ers #5 12-21 Right Eye, ity of ophthalmic 15:45: 15:51 ONCE, 1 [place] as solution 00 :00 dose, Rachel Medica l 0.5 mL 12/21/20 at Branch syringe 1045, Routine, DSU Pre-op lactated 2020- No 1000mL at 42 Unive rs ringers IV 8- 08-26 mL/hr, ity of infusion 15:45: 15:51 1,000 mL, Andrew as 1,000 mL 00 :00 IV Medical Infusion, Branch ONCE, 1 dose, Rachel 12/21/20 at 1045, Routine, DSU Pre-op mydriatic 2020- No .5mL 0.5 mL, Univ ers #5 12-21 Right Eye, ity of ophthalmic 15:45: 15:51 ONCE, 1 [place] as solution 00 :00 dose, Rachel Medica l 0.5 mL 12/21/20 at Branch syringe 1045, Routine, DSU Pre-op lactated 2020- No 1000mL at 42 Unive rs ringers IV 8- 08-26 mL/hr, ity of infusion 15:45: 15:51 1,000 mL, Andrew as 1,000 mL 00 :00 IV Medical Infusion, Branch ONCE, 1 dose, Rachel 12/21/20 at 1045, Routine, DSU Pre-op gabapentin 2020-0 Yes Take by [facility] ers ER 600 mg 8-26 mouth ity of tablet, 13:21: daily. [place] [id number] Medical release 24 Branch hr omeprazole 2020-0 Yes 40mg Take 40 mg U nivers 40 mg 8-26 by mouth ity of capsule 13:21: daily. [address] Branch traMADoL 50 2020-0 Yes 50mg Take 50 mg Univers mg tablet 8-26 by mouth ity of 13:21: every 6 [place] [id number] (six) Medical hours as Branch needed. gabapentin 2020-0 Yes Take by [facility] ers ER 600 mg 8-26 mouth ity of tablet, 13:21: daily. [place] [address] Medical release 24 Branch hr omeprazole 2020-0 Yes 40mg Take 40 mg U nivers 40 mg 8- by mouth ity of capsule 13:21: daily. [address] traMADoL 50 2020-0 Yes 50mg Take 50 mg Univers mg tablet 8-26 by mouth ity of 13:21: every 6 [place] [address] (six) Medical hours as Branch needed. gabapentin 2020-0 No 300 mg = 1 M emoria 300 MG Oral 6-10 cap, PO, l Capsule 17:10: TID, 0 [place] 00 Refill(s) gabapentin 2020-0 No 300 mg = 1 M emoria 300 MG Oral 6-10 cap, PO, l Capsule 17:10: TID, 0 [place] 00 Refill(s) gabapentin 2020-0 No 300 mg = 1 M emoria 300 MG Oral 6-10 cap, PO, l Capsule 17:10: TID, 0 [place] 00 Refill(s) gabapentin 2020-0 No 300 mg = 1 M emoria 300 MG Oral 6-10 cap, PO, l Capsule 17:10: TID, 0 [place] 00 Refill(s) gabapentin 2020-0 No 300 mg = 1 M emoria 300 MG Oral 6-10 cap, PO, l Capsule 17:10: TID, 0 [place] 00 Refill(s) gabapentin 2020-0 No 300 mg = 1 M emoria 300 MG Oral 6-10 cap, PO, l Capsule 17:10: TID, 0 [place] 00 Refill(s) gabapentin 2020-0 No 300 mg = 1 M emoria 300 MG Oral 6-10 cap, PO, l Capsule 17:10: TID, 0 [place] 00 Refill(s) gabapentin 2020-0 No 300 mg = 1 M emoria 300 MG Oral 6-10 cap, PO, l Capsule 17:10: TID, 0 [place] 00 Refill(s) gabapentin 2020-0 No 300 mg = 1 M emoria 300 MG Oral 6-10 cap, PO, l Capsule 17:10: TID, 0 [place] 00 Refill(s) gabapentin 2020-0 No 300 mg = 1 M emoria 300 MG Oral 6-10 cap, PO, l Capsule 17:10: TID, 0 [place] 00 Refill(s) gabapentin 2020-0 No 300 mg = 1 M emoria 300 MG Oral 6-10 cap, PO, l Capsule 17:10: TID, 0 [place] 00 Refill(s) gabapentin 2020-0 No 300 mg = 1 M emoria 300 MG Oral 6-10 cap, PO, l Capsule 17:10: TID, 0 [place] 00 Refill(s) gabapentin 2020-0 No 300 mg = 1 M emoria 300 MG Oral 6-10 cap, PO, l Capsule 17:10: TID, 0 [place] 00 Refill(s) gabapentin 2020-0 No 300 mg = 1 M emoria 300 MG Oral 6-10 cap, PO, l Capsule 17:10: TID, 0 [place] 00 Refill(s) gabapentin 2020-0 No 300 mg = 1 M emoria 300 MG Oral 6-10 cap, PO, l Capsule 17:10: TID, 0 [place] 00 Refill(s) gabapentin 2020-0 No 300 mg = 1 M emoria 300 MG Oral 6-10 cap, PO, l Capsule 17:10: TID, 0 [place] 00 Refill(s) gabapentin 2020-0 No 300 mg = 1 M emoria 300 MG Oral 6-10 cap, PO, l Capsule 17:10: TID, 0 [place] 00 Refill(s) gabapentin 2020-0 No 300 mg = 1 M emoria 300 MG Oral 6-10 cap, PO, l Capsule 17:10: TID, 0 [place] 00 Refill(s) gabapentin 2020-0 No 300 mg = 1 M emoria 300 MG Oral 6-10 cap, PO, l Capsule 17:10: TID, 0 [place] 00 Refill(s) gabapentin No 300 mg = 1 M emoria 300 MG Oral 6-10 cap, PO, l Capsule 17:10: TID, 0 [place] 00 Refill(s) gabapentin No 300 mg = 1 M emoria 300 MG Oral 6-10 cap, PO, l Capsule 17:10: TID, 0 [place] 00 Refill(s) gabapentin No 300 mg = 1 M emoria 300 MG Oral 6-10 cap, PO, l Capsule 17:10: TID, 0 [place] 00 Refill(s) gabapentin No 300 mg = 1 M emoria 300 MG Oral 6-10 cap, PO, l Capsule 17:10: TID, 0 [place] 00 Refill(s) gabapentin No 300 mg = 1 M emoria 300 MG Oral 6-10 cap, PO, l Capsule 17:10: TID, 0 [place] 00 Refill(s) HYDROcodone 2018-04 Yes 10 mg = 1 M emoria 10 mg oral 2-26 cap, PO, l capsule, 21:26: Q12H, 0 [place] 00 Refill(s) release HYDROcodone 2018-04 Yes 10 mg = 1 M emoria 10 mg oral 2-26 cap, PO, l capsule, 21:26: Q12H, 0 [place] 00 Refill(s) release HYDROcodone 2018-04 Yes 10 mg = 1 M em[place] 10 mg oral 2-26 cap, PO, l capsule, 21:26: Q12H, 0 [place] 00 Refill(s) release HYDROcodone 2018-04 Yes 10 mg = 1 M [place] 10 mg oral 2-26 cap, PO, l capsule, 21:26: Q12H, 0 [place] 00 Refill(s) release HYDROcodone 2018-04 Yes 10 mg = 1 M [place] 10 mg oral 2-26 cap, PO, l capsule, 21:26: Q12H, 0 [place] extended 00 Refill(s) release HYDROcodone 2018-04 Yes 10 mg = 1 M [place] 10 mg oral 2-26 cap, PO, l capsule, 21:26: Q12H, 0 [place] 00 Refill(s) release HYDROcodone 2018-04 Yes 10 mg = 1 M [place] 10 mg oral 2-26 cap, PO, l capsule, 21:26: Q12H, 0 [place] extended 00 Refill(s) release HYDROcodone 2018-04 Yes 10 mg = 1 M emoria 10 mg oral 2-26 cap, PO, l capsule, 21:26: Q12H, 0 [place] extended 00 Refill(s) release HYDROcodone 2018-04 Yes 10 mg = 1 M [place] 10 mg oral 2-26 cap, PO, l capsule, 21:26: Q12H, 0 [place] 00 Refill(s) release HYDROcodone 2018-04 Yes 10 mg = 1 M emoria 10 mg oral 2-26 cap, PO, l capsule, 21:26: Q12H, 0 [place] 00 Refill(s) release HYDROcodone 2018-04 Yes 10 mg = 1 M [place] 10 mg oral 2-26 cap, PO, l capsule, 21:26: Q12H, 0 [place] extended 00 Refill(s) release HYDROcodone 2018-04 Yes 10 mg = 1 M [place] 10 mg oral 2-26 cap, PO, l capsule, 21:26: Q12H, 0 [place] extended 00 Refill(s) release HYDROcodone 2018-04 Yes 10 mg = 1 M [place] 10 mg oral 2-26 cap, PO, l capsule, 21:26: Q12H, 0 [place] extended 00 Refill(s) release HYDROcodone 2018-04 Yes 10 mg = 1 M [place] 10 mg oral 2-26 cap, PO, l capsule, 21:26: Q12H, 0 [place] extended 00 Refill(s) release HYDROcodone 2018-04 Yes 10 mg = 1 M em[place] 10 mg oral 2-26 cap, PO, l capsule, 21:26: Q12H, 0 [place] extended 00 Refill(s) release HYDROcodone 2018-04 Yes 10 mg = 1 M em[place] 10 mg oral 2-26 cap, PO, l capsule, 21:26: Q12H, 0 [place] extended 00 Refill(s) release HYDROcodone 2018-04 Yes 10 mg = 1 M em[place] 10 mg oral 2-26 cap, PO, l capsule, 21:26: Q12H, 0 [place] extended 00 Refill(s) release HYDROcodone 2018-04 Yes 10 mg = 1 M [place] 10 mg oral 2-26 cap, PO, l capsule, 21:26: Q12H, 0 [place] extended 00 Refill(s) release HYDROcodone 2018-04 Yes 10 mg = 1 M emoria 10 mg oral 2-26 cap, PO, l capsule, 21:26: Q12H, 0 [place] extended 00 Refill(s) release HYDROcodone 2018-04 Yes 10 mg = 1 M em[place] 10 mg oral 2-26 cap, PO, l capsule, 21:26: Q12H, 0 [place] extended 00 Refill(s) release HYDROcodone 2018-04 Yes 10 mg = 1 M emoria 10 mg oral 2-26 cap, PO, l capsule, 21:26: Q12H, 0 [place] extended 00 Refill(s) release HYDROcodone 2018-04 Yes 10 mg = 1 M emoria 10 mg oral 2-26 cap, PO, l capsule, 21:26: Q12H, 0 [place] extended 00 Refill(s) release HYDROcodone 2018-04 Yes 10 mg = 1 M emoria 10 mg oral 2-26 cap, PO, l capsule, 21:26: Q12H, 0 [place] extended 00 Refill(s) release HYDROcodone 2018-04 Yes 10 mg = 1 M [place] 10 mg oral 2-26 cap, PO, l capsule, 21:26: Q12H, 0 [place] extended 00 Refill(s) release Vital Signs Vital Name Observation Time Observation Value Comments Source Systolic blood 2021-02-01 187 mm[Hg] [facility] pressure 14:50:00 [facility] Diastolic blood 2021-02-01 90 mm[Hg] [place] o f pressure 14:50:00 [facility] Heart rate 2021-02-01 52 /min [facility] 14:50:00 [facility] Oxygen saturation 2021-02-01 97 /min [facility] Arterial blood 14:50:00 [facility] by Pulse oximetry Branch Respiratory rate 2021-02-01 16 /min [facility] 14:45:00 [facility] Body temperature 2021-02-01 36.33 [place] University of 14:35:00 [facility] Branch Body height 2021-01-24 177.8 cm University of 15:21:00 [facility] Body weight 2021-01-24 103.5 kg University of 15:21:00 [facility] BMI 2021-01-24 32.74 kg/m2 University of 15:21:00 [facility] Systolic blood 2021-02-01 159 mm[Hg] University of pressure 13:04:00 [facility] Diastolic blood 2021-02-01 90 mm[Hg] University o f pressure 13:04:00 [facility] Heart rate 2021-02-01 60 /min University of 13:04:00 [facility] Body temperature 2021-02-01 36.67 Vanessa University of 13:04:00 [facility] Respiratory rate 2021-02-01 18 /min University of 13:04:00 [facility] Oxygen saturation 2021-02-01 98 /min University of in Arterial blood 13:04:00 [facility] by Pulse oximetry Branch Body height 2021-01-24 177.8 cm University of 15:21:00 [facility] Body weight 2021-01-24 103.5 kg University of 15:21:00 [facility] BMI 2021-01-24 32.74 kg/m2 University of 15:21:00 [facility] Systolic blood 2020-12-21 119 mm[Hg] University of pressure 17:50:00 [facility] Diastolic blood 2020-12-21 74 mm[Hg] University o f pressure 17:50:00 [facility] Heart rate 2020-12-21 62 /min University of 17:50:00 [facility] Respiratory rate 2020-12-21 21 /min University of 17:50:00 [facility] Oxygen saturation 2020-12-21 96 /min University of in Arterial blood 17:50:00 [facility]aan by Pulse oximetry Branch Body temperature 2020-12-21 36.28 Vanessa University of 17:28:00 [facility] Body height 2020-12-13 177.8 cm University of 13:30:00 [facility] Body weight 2020-12-13 103.5 kg University of 13:30:00 [facility] BMI 2020-12-13 32.74 kg/m2 University of 13:30:00 [facility] Systolic blood 2020-12-21 119 mm[Hg] University of pressure 17:50:00 [facility] Diastolic blood 2020-12-21 74 mm[Hg] University o f pressure 17:50:00 [facility] Heart rate 2020-12-21 62 /min University of 17:50:00 [facility] Respiratory rate 2020-12-21 21 /min University of 17:50:00 [facility] Oxygen saturation 2020-12-21 96 /min [place] of in Arterial blood 17:50:00 [facility] by Pulse oximetry [place] Body temperature 2020-12-21 36.28 Vanessa University of 17:28:00 [facility] Body height 2020-12-13 177.8 cm University of 13:30:00 [facility] Body weight 2020-12-13 103.5 kg University of 13:30:00 [facility] BMI 2020-12-13 32.74 kg/m2 University of 13:30:00 [facility] Systolic blood 2022-06-25 145 mm[Hg] University of pressure 19:00:00 [facility] Diastolic blood 2022-06-25 79 mm[Hg] University o f pressure 19:00:00 [facility] Heart rate 2022-06-25 91 /min University of 19:00:00 [facility] Body temperature 2022-06-25 36.72 Vanessa University of 19:00:00 [facility] Respiratory rate 2022-06-25 18 /min University of 19:00:00 [facility] Oxygen saturation 2022-06-25 98 /min [facility] in Arterial blood 19:00:00 [facility] by Pulse oximetry [facility] Systolic blood 2022-06-24 129 mm[Hg] University of pressure 17:15:00 [facility] Diastolic blood 2022-06-24 81 mm[Hg] University o f pressure 17:15:00 [facility] Heart rate 2022-06-24 82 /min University of 17:15:00 [facility] Body temperature 2022-06-24 36.78 Vanessa University of 17:15:00 [facility] Respiratory rate 2022-06-24 16 /min University of 17:15:00 [facility] Oxygen saturation 2022-06-24 96 /min University of in Arterial blood 17:15:00 Radha GRACIA by Pulse oximetry [facility] Body weight 2022-06-24 90.7 kg University of 17:15:00 [facility] BMI 2022-06-24 29.62 kg/m2 University of 17:15:00 [facility] Systolic blood 2022-06-21 166 mm[Hg] Enid Luong Rn University of pressure 14:48:00 notifed [facility] Diastolic blood 2022-06-21 96 mm[Hg] Enid Luong Rn University of pressure 14:48:00 notifed [facility] Heart rate 2022-06-21 73 /min University of 14:48:00 [facility] Body temperature 2022-06-21 36.72 Vanessa University of 14:48:00 [facility] Respiratory rate 2022-06-21 14 /min University of 14:48:00 [facility] Body weight 2022-06-21 87.9 kg University of 14:48:00 [facility] BMI 2022-06-21 28.70 kg/m2 University of 14:48:00 [facility] Oxygen saturation 2022-06-21 99 /min University of in Arterial blood 14:48:00 Radha GRACIA by Pulse oximetry [facility] Body height 2022-06-19 175 cm University of 05:35:00 [facility] Systolic blood 2022-05-13 135 mm[Hg] University of pressure 18:00:00 [facility] Diastolic blood 2022-05-13 80 mm[Hg] University o f pressure 18:00:00 [facility] Heart rate 2022-05-13 82 /min University of 18:00:00 [facility] Body temperature 2022-05-13 37 Vanessa University of 18:00:00 [facility] Oxygen saturation 2022-05-13 95 /min University of in Arterial blood 18:00:00 Radha GRACIA by Pulse oximetry [facility] Respiratory rate 2022-05-13 18 /min University of 14:38:41 [facility] Body weight 2022-05-13 91.3 kg University of 08:33:00 [facility] BMI 2022-05-13 28.88 kg/m2 University 08:33:00 [facility] Systolic blood 2022-05-10 162 mm[Hg] University of pressure 18:28:00 [facility] Diastolic blood 2022-05-10 97 mm[Hg] University o f pressure 18:28:00 [facility] Heart rate 2022-05-10 74 /min [facility] 18:28:00 [facility] Respiratory rate 2022-05-10 12 /min [facility] 18:28:00 [facility] Oxygen saturation 2022-05-10 96 /min [facility] in Arterial blood 18:28:00 [facility] by Pulse oximetry [facility] Body temperature 2022-05-10 36.5 Vanessa [facility] 18:25:00 [facility] Body weight 2022-05-10 91.9 kg [facility] 10:00:00 [facility] BMI 2022-05-10 29.07 kg/m2 [facility] 10:00:00 [facility] Body height 2022-05-06 177.8 cm University 08:03:00 [facility] Systolic blood 2022-05-02 126 mm[Hg] [facility] pressure 15:31:00 [facility] Diastolic blood 2022-05-02 77 mm[Hg] [facility] pressure 15:31:00 [facility] Heart rate 2022-05-02 79 /min [facility] 15:31:00 [facility] Body temperature 2022-05-02 36 Vanessa Mandaen 15:31:00 [facility] Body height 2022-05-02 177.8 cm Mandaen 15:31:00 [facility] Body weight 2022-05-02 88.905 kg Mandaen 15:31:00 [facility] BMI 2022-05-02 28.12 kg/m2 [facility] 15:31:00 Hospital Systolic (mm Hg) 2019-10-15 [facility]mann 13:46:00 Diastolic (mm Hg) 2019-10-15 [facility] 13:46:00 Heart Rate 2019-10-15 [facility] 13:46:00 Respitory Rate 2019-10-15 [facility] 13:46:00 Height 2019-10-15 172.72 cm [facility] [facility] 13:46:00 Weight 2019-10-15 [facility] 13:46:00 BMI Calculated 2019-10-15 [facility] 13:46:00 Systolic (mm Hg) 2019-10-06 [facility] 16:46:00 Diastolic (mm Hg) 2019-10-06 [facility] 16:46:00 Heart Rate 2019-10-06 [facility] [facility] 16:46:00 Respitory Rate 2019-10-06 [facility] 16:46:00 Temperature Oral 2019-10-06 98.5 F [facility] (F) 16:46:00 Height 2019-10-06 177.8 cm [facility] [facility] 16:46:00 Weight 2019-10-06 [facility] 16:46:00 BMI Calculated 2019-10-06 [facility] 16:46:00 Systolic (mm Hg) 2019-04-22 [facility] 20:57:00 Diastolic (mm Hg) 2019-04-22 [facility] 20:57:00 Heart Rate 2019-04-22 Luis Jaquezan n 20:57:00 Respitory Rate 2019-04-22 [facility] 20:57:00 Height 2019-04-22 177.8 cm Luis Jaquezan n 20:57:00 Weight 2019-04-22 [facility] 20:57:00 BMI Calculated 2019-04-22 [facility] 20:57:00 Procedures Procedure Date / Time Performing Clinician Source Performed COMPLETE BLOOD COUNT W/ 2022-06-25 Kailey Parikh [facility] DIFFERENTIAL 09:40:00 [facility] SODIUM LEVEL 2022-06-25 J[facility] [place] 09:40:00 [facility] POTASSIUM LEVEL 2022-06-25 J[facility] [place] 09:40:00 [facility] CHLORIDE LEVEL 2022-06-25 J[facility] [place] 09:40:00 [facility] CARBON DIOXIDE LEVEL 2022-06-25 Jl [facility] 09:40:00 [facility] BLOOD UREA NITROGEN 2022-06-25 Jl [facility] 09:40:00 [facility] SERUM CREATININE 2022-06-25 Jl [facility] [place] 09:40:00 [facility] GLUCOSE, RANDOM 2022-06-25 J[facility] [place] 09:40:00 [facility] LACTATE DEHYDROGENASE 2022-06-25 Jl [facility] 09:40:00 [facility] URIC ACID 2022-06-25 J[facility] [place] 09:40:00 [facility] PHOSPHORUS LEVEL 2022-06-25 Jl [facility] [place] 09:40:00 [facility] FRACTIONATED BILIRUBIN 2022-06-25 Jl [facility] 09:40:00 [facility] ALBUMIN LEVEL 2022-06-25 J[facility] x[facility] 09:40:00 [facility] CALCIUM LEVEL TOTAL 2022-06-[address] [facility] 09:40:00 [facility] MAGNESIUM LEVEL 2022-06-25 Jl [facility] xa 09:40:00 [facility] ALANINE AMINOTRANSFERASE 2022-06-25 Jl [facility] 09:40:00 [facility] ASPARTATE AMINOTRANSFERASE 2022-06-25 Jl [facility] 09:40:00 [facility] ALKALINE PHOSPHATASE 2022-06-25 Jl [facility] 09:40:00 [facility] Results CBC 2022-06-25 J[facility] xa 09:40:00 [facility] MANUAL DIFFERENTIAL 2022-06-[address] [facility] 09:40:00 [facility] SERUM CREATININE 2022-06-25 Jl [facility] ex 09:40:00 [facility] .GLOMERULAR FILTRATION RATE 2022-06-25 Jl [facility] 09:40:00 [facility] ANION GAP 2022-06-25 J[facility] xa 09:40:00 [facility] VERIFY CATHETER TIP 2022-06-25 aFnny Rec[facility] [place] PLACEMENT 04:55:18 [facility] XR CHEST 2 VW POST IMPLANT 2022-06-25 Crow Greer [facility] 03:15:00 [facility] XR CHEST 2 VW POST IMPLANT 2022-06-25 Crow Greer [facility] 03:15:00 [facility] INSERT VASCULAR ACCESS 2022-06-25 Crow Greer [facility] DEVICE 02:31:00 [facility] VASCULAR ACCESS ULTRASOUND 2022-06-25 [facility] 00[facility]02 [facility] COMPLETE BLOOD COUNT W/ 2022-06-24 Jl [facility] DIFFERENTIAL 12:23:00 [facility] SODIUM LEVEL 2022-06-24 J[facility] [place] 12:23:00 [facility] POTASSIUM LEVEL 2022-06-24 [facility] 12:23:00 [facility] CHLORIDE LEVEL 2022-06-24 J[facility] 12:23:00 [facility] CARBON DIOXIDE LEVEL 2022-06-24 Jl [facility] 12:23:00 [facility] BLOOD UREA NITROGEN 2022-06-[address] [facility] 12:23:00 [facility] SERUM CREATININE 2022-06-24 Jl [facility] ex 12:23:00 [facility] GLUCOSE, RANDOM 2022-06-24 J[facility] 12:23:00 [facility] LACTATE DEHYDROGENASE 2022-06-24 Jl [facility] 12:23:00 [facility] URIC ACID 2022-06-24 [facility] 12:23:00 [facility] PHOSPHORUS LEVEL 2022-06-24 Jl [facility] 12:23:00 [facility] FRACTIONATED BILIRUBIN 2022-06-24 Jl [facility] 12:23:00 [facility] ALBUMIN LEVEL 2022-06-24 [facility] 12:23:00 [facility] CALCIUM LEVEL TOTAL 2022-06-[address] [facility] 12:23:00 [facility] MAGNESIUM LEVEL 2022-06-24 [facility] 12:23:00 [facility] ALANINE AMINOTRANSFERASE 2022-06-24 J[facility] 12:23:00 [facility] ASPARTATE AMINOTRANSFERASE 2022-06-24 Jl [facility] 12:23:00 [facility] ALKALINE PHOSPHATASE 2022-06-24 Jl [facility] 12:23:00 [facility] Results CBC 2022-06-24 J[facility] 12:23:00 [facility] MANUAL DIFFERENTIAL 2022-06-[address] [facility] 12:23:00 [facility] SERUM CREATININE 2022-06-24 Jl [facility] ex 12:23:00 [facility] .GLOMERULAR FILTRATION RATE 2022-06-24 Jl [facility] 12:23:00 [facility] ANION GAP 2022-06-24 J[facility] 12:23:00 [facility] TYPE AND SCREEN 2022-06-23 [facility] [place] 13:45:00 [facility] COMPLETE BLOOD COUNT W/ 2022-06-23 Jl [facility] DIFFERENTIAL 13:45:00 [facility] SODIUM LEVEL 2022-06-23 J[facility] [place] 13:45:00 [facility] POTASSIUM LEVEL 2022-06-23 [facility] [place] 13:45:00 [facility] CHLORIDE LEVEL 2022-06-23 [facility] 13:45:00 [facility] CARBON DIOXIDE LEVEL 2022-06-23 Jl [facility] 13:45:00 [facility] BLOOD UREA NITROGEN 2022-06-[address] [facility] 13:45:00 [facility] SERUM CREATININE 2022-06-23 Jl [facility] ex 13:45:00 [facility] GLUCOSE, RANDOM 2022-06-23 J[facility] 13:45:00 [facility] LACTATE DEHYDROGENASE 2022-06-23 Jl [facility] 13:45:00 [facility] URIC ACID 2022-06-23 J[facility] 13:45:00 [facility] PHOSPHORUS LEVEL 2022-06-23 Jl [facility] ex 13:45:00 [facility] FRACTIONATED BILIRUBIN 2022-06-23 Jl [facility] 13:45:00 [facility] ALBUMIN LEVEL 2022-06-23 J[facility] 13:45:00 [facility] CALCIUM LEVEL TOTAL 2022-06-[address] [facility] 13:45:00 [facility] MAGNESIUM LEVEL 2022-06-23 J[facility] 13:45:00 [facility] ALANINE AMINOTRANSFERASE 2022-06-23 Jl [facility] 13:45:00 [facility] ASPARTATE AMINOTRANSFERASE 2022-06-23 Jl [facility] 13:45:00 [facility] ALKALINE PHOSPHATASE 2022-06-23 Jl [facility] 13:45:00 [facility] ABORH 2022-06-23 J[facility] 13:45:00 [facility] ANTIBODY SCREEN 2022-06-23 [facility] 13:45:00 [facility] Results CBC 2022-06-23 J[facility] 13:45:00 [facility] MANUAL DIFFERENTIAL 2022-06-[address] [facility] 13:45:00 [facility] SERUM CREATININE 2022-06-23 Jl [facility] ex 13:45:00 [facility] .GLOMERULAR FILTRATION RATE 2022-06-23 Jl [facility] 13:45:00 [facility] ANION GAP 2022-06-23 J[facility] [place] 13:45:00 [facility] CLOT EXPIRATION DATE 2022-06-23 Jl [facility] 13:45:00 [facility] TMP INTERPRETATION ANTIBODY 2022-06-23 Jl [facility] SCREEN NEGATIVE 13:45:00 [facility] COMPLETE BLOOD COUNT W/ 2022-06-22 Jl [facility] DIFFERENTIAL 11:50:00 [facility] SODIUM LEVEL 2022-06-22 J[facility] 11:50:00 [facility] POTASSIUM LEVEL 2022-06-22 J[facility] 11:50:00 [facility] CHLORIDE LEVEL 2022-06-22 J[facility] 11:50:00 [facility] CARBON DIOXIDE LEVEL 2022-06-22 Jl [facility] 11:50:00 [facility] BLOOD UREA NITROGEN 2022-06-[address] [facility] 11:50:00 [facility] SERUM CREATININE 2022-06-[facility] 11:50:00 [facility] GLUCOSE, RANDOM 2022-06-22 J[facility] 11:50:00 [facility] LACTATE DEHYDROGENASE 2022-06-22 Jl [facility] 11:50:00 [facility] URIC ACID 2022-06-22 J[facility] 11:50:00 [facility] PHOSPHORUS LEVEL 2022-06-22 [facility] 11:50:00 [facility] FRACTIONATED BILIRUBIN 2022-06-22 Jl [facility] 11:50:00 [facility] ALBUMIN LEVEL 2022-06-22 J[facility] 11:50:00 [facility] CALCIUM LEVEL TOTAL 2022-06-22 [facility] 11:50:00 [facility] MAGNESIUM LEVEL 2022-06-22 J[facility] 11:50:00 [facility] ALANINE AMINOTRANSFERASE 2022-06-22 Jl [facility] 11:50:00 [facility] ASPARTATE AMINOTRANSFERASE 2022-06-22 Jl [facility] 11:50:00 [facility] ALKALINE PHOSPHATASE 2022-06-22 Jl [facility] 11:50:00 [facility] Results CBC 2022-06-22 J[facility] 11:50:00 [facility] MANUAL DIFFERENTIAL 2022-06-[address] [facility] 11:50:00 [facility] SERUM CREATININE 2022-06-22 Jl [facility] 11:50:00 [facility] .GLOMERULAR FILTRATION RATE 2022-06-22 Jl [facility] 11:50:00 [facility] ANION GAP 2022-06-22 Jl [facility] 11:50:00 [facility] BLOODCULTURE 2022-06-21 [facility] 23:13:00 [facility] ECHOCARDIOGRAM 2D COMPLETE 2022-06-21 Jl [facility] 18:12:54 [facility] COMPLETE BLOOD COUNT W/ 2022-06-21 Jl [facility] DIFFERENTIAL 11:50:00 [facility] SODIUM LEVEL 2022-06-21 Jl [facility] 11:50:00 [facility] POTASSIUM LEVEL 2022-06-21 J[facility] 11:50:00 [facility] CHLORIDE LEVEL 2022-06-21 J[facility] 11:50:00 [facility] CARBON DIOXIDE LEVEL 2022-06-21 Jl [facility] 11:50:00 [facility] BLOOD UREA NITROGEN 2022-06-[address] [facility] 11:50:00 [facility] SERUM CREATININE 2022-06-21 Jl [facility] 11:50:00 [facility] GLUCOSE, RANDOM 2022-06-21 J[facility] 11:50:00 [facility] LACTATE DEHYDROGENASE 2022-06-21 Jl [facility] 11:50:00 [facility] URIC ACID 2022-06-21 Jl [facility] 11:50:00 [facility] PHOSPHORUS LEVEL 2022-06-21 Jl [facility] ex 11:50:00 [facility] FRACTIONATED BILIRUBIN 2022-06-21 Jl [facility] 11:50:00 [facility] ALBUMIN LEVEL 2022-06-21 Jl [facility] 11:50:00 [facility] CALCIUM LEVEL TOTAL 2022-06-[address] [facility] 11:50:00 [facility] MAGNESIUM LEVEL 2022-06-21 Jl [facility] 11:50:00 [facility] ALANINE AMINOTRANSFERASE 2022-06-21 Jl [facility] 11:50:00 [facility] ASPARTATE AMINOTRANSFERASE 2022-06-21 Jl [facility] 11:50:00 [facility] ALKALINE PHOSPHATASE 2022-06-21 Jl [facility] 11:50:00 [facility] Results CBC 2022-06-21 J[facility] 11:50:00 [facility] MANUAL DIFFERENTIAL 2022-06-[address] [facility] 11:50:00 [facility] SERUM CREATININE 2022-06-21 Jl [facility] ex 11:50:00 [facility] .GLOMERULAR FILTRATION RATE 2022-06-21 Jl [facility] 11:50:00 [facility] ANION GAP 2022-06-21 J[facility] 11:50:00 [facility] CATHETER TIP CULTURE 2022-06-20 Jl [facility] 18:12:00 [facility] PICC/NON-TUNNELED CVAD 2022-06-20 Jl [facility] REMOVAL 18:10:05 [facility] BLOODCULTURE 2022-06-20 [facility] 16:55:00 [facility] BLOODCULTURE 2022-06-20 [facility] 16:02:00 [facility] COMPLETE BLOOD COUNT W/ 2022-06-20 Jl [facility] DIFFERENTIAL 10:16:00 [facility] SODIUM LEVEL 2022-06-20 [facility] 10:16:00 [facility] POTASSIUM LEVEL 2022-06-20 J[facility] 10:16:00 [facility] CHLORIDE LEVEL 2022-06-20 J[facility] 10:16:00 [facility] CARBON DIOXIDE LEVEL 2022-06-20 Jl [facility] 10:16:00 [facility] BLOOD UREA NITROGEN 2022-06-[address] [facility] 10:16:00 [facility] SERUM CREATININE 2022-06-20 J[facility] 10:16:00 [facility] GLUCOSE, RANDOM 2022-06-20 J[facility] 10:16:00 [facility] LACTATE DEHYDROGENASE 2022-06-20 Jl [facility] 10:16:00 [facility] URIC ACID 2022-06-20 J[facility] 10:16:00 [facility] PHOSPHORUS LEVEL 2022-06-20 Jl [facility] 10:16:00 [facility] FRACTIONATED BILIRUBIN 2022-06-20 Jl [facility] 10:16:00 [facility] ALBUMIN LEVEL 2022-06-20 J[facility] 10:16:00 [facility] CALCIUM LEVEL TOTAL 2022-06-20 Jl [facility] [place] 10:16:00 [facility] MAGNESIUM LEVEL 2022-06-20 J[facility] 10:16:00 [facility] ALANINE AMINOTRANSFERASE 2022-06-20 Jl [facility] 10:16:00 [facility] ASPARTATE AMINOTRANSFERASE 2022-06-20 Jl [facility] 10:16:00 [facility] ALKALINE PHOSPHATASE 2022-06-20 Jl [facility] 10:16:00 [facility] Results CBC 2022-06-20 J[facility] 10:16:00 [facility] MANUAL DIFFERENTIAL 2022-06-[address] [facility] 10:16:00 [facility] SERUM CREATININE 2022-06-20 Jl [facility] 10:16:00 [facility] .GLOMERULAR FILTRATION RATE 2022-06-20 Jl [facility] 10:16:00 [facility] ANION GAP 2022-06-20 J[facility] 10:16:00 [facility] HEPATITIS C VIRUS RNA 2022-06-19 Jl [facility] DETECT/QUANT, SERUM 23:17:00 [facility] HBV DNA QUANT 2022-06-19 Jl [facility] 23:17:00 [facility] GENERAL LABORATORY ADD ON 2022-06-19 Jl [facility] TEST 15:44:00 [facility] GENERAL LABORATORY ADD ON 2022-06-19 [facility] 10:23:00 [facility] COMPLETE BLOOD COUNT W/ 2022-06-19 Audra Smith [facility] DIFFERENTIAL 10:20:00 [facility] BASIC METABOLIC PANEL, 2022-06-19 Luis [facility] CALCIUM IONIZED 10:20:00 [facility] Results CBC 2022-06-19 [facility] 10:20:00 [facility] MANUAL DIFFERENTIAL 2022-06-19 Luis [facility] 10:20:00 [facility] GLUCOSE LEVEL 2022-06-19 [facility] 10:20:00 [facility] BLOOD UREA NITROGEN 2022-06-19 [facility] 10:20[facility]00 [facility] ELECTROLYTE PANEL 2022-06-19 Luis [facility] 10:20:00 [facility] SERUM CREATININE 2022-06-19 [facility] 10:20[facility]00 [facility] .GLOMERULAR FILTRATION RATE 2022-06-19 [facility] 10:20[facility]00 [facility] MAGNESIUM LEVEL 2022-06-19 [facility] 10:20:00 [facility] PHOSPHORUS LEVEL 2022-06-19 [facility] 10:20:00 [facility] CALCIUM LEVEL TOTAL 2022-06-19 [facility] 10:20:00 [facility] ALBUMIN LEVEL 2022-06-19 [facility] 10:20:00 [facility] BLOODCULTURE 2022-06-19 Vannessa [facility] xa 09:47:00 [facility] IMMUNOGLOBULIN G SERUM 2022-06-19 Billy [facility] 09:47:00 [facility] LACTIC ACID, VENOUS 2022-06-19 [facility] 09:47:00 [facility] CALCIUM IONIZED, VENOUS 2022-06-19 Billy [facility] 09:47:00 [facility] HP FC FLOW CYTOMETRY BLOOD 2022-06-19 Billy [facility] COLLECTION 09:47:00 [facility] HP FC RATIO 2022-06-19 [facility] 09:47:00 [facility] BLOODCULTURE 2022-06-19 [facility] 09:36:00 [facility] BLOODCULTURE 2022-06-19 [facility] 09:12:00 [facility] URINE CULTURE 2022-06-19 Curly Gomes [facility] 07:07:00 [facility] URINALYSIS WITH MICROSCOPIC 2022-06-19 Curly Gomes iversity [facility] IF INDICATED 07:07:00 [facility] URINALYSIS MICROSCOPIC EXAM 2022-06-19 [facility] 07:07[facility] [facility] [address] CHEST PULMONARY EMBOLISM 2022-06-19 Curly Gomes iversity [facility] W CONTRAST 03:14:[address] [facility] [address] ABDOMEN PELVIS W CONTRAST 2022-06-19 [facility] 03:14:09 [facility] RESPIRATORY VIRAL MULTIPLEX 2022-06-19 [facility]OPHARY[facility]GE[facility] 01:46:00 [facility] POC VENOUS BLOOD GAS + 2022-06-18 Curly Gomes [facility] LACTATE 20:37:00 [facility] BLOODCULTURE 2022-06-18 Arin Francois [facility] 20:03:00 [facility] COMPLETE BLOOD COUNT W/ 2022-06-18 Arin Francois [facility] DIFFERENTIAL 20:03:00 [facility] TYPE AND SCREEN 2022-06-18 Priscila [facility] 20:03:00 [facility] COMPREHENSIVE METABOLIC 2022-06-18 Arin Francois [facility] PANEL 20:03:00 [facility] MAGNESIUM LEVEL 2022-06-18 Priscila Arin [facility] 20:03:00 [facility] PHOSPHORUS LEVEL 2022-06-18 [facility] 20:03:00 [facility] PROTHROMBIN TIME 2022-06-18 [facility] 20:03:00 [facility] APTT 2022-06-18 [facility] 20:03:00 [facility] D DIMER 2022-06-18 [facility] 20:03:00 [facility] FIBRINOGEN ACTIVITY 2022-06-18 [facility] 20:03:00 [facility] PROCALCITONIN 2022-06-18 [facility] 20:03[facility]00 [facility] LACTATE DEHYDROGENASE 2022-06-18 [facility] 20:03[facility]00 [facility] C REACTIVE PROTEIN 2022-06-18 [facility] 20:03:00 [facility] Results CBC 2022-06-18 [facility] 20:03:00 [facility] MANUAL DIFFERENTIAL 2022-06-18 [facility] 20:03:00 [facility] GLUCOSE LEVEL 2022-06-18 [facility] 20:03:00 [facility] BLOOD UREA NITROGEN 2022-06-18 [facility] 20:03:00 [facility] ELECTROLYTE PANEL 2022-06-18 [facility] 20:03:00 [facility] SERUM CREATININE 2022-06-18 [facility] 20:03:00 [facility] .GLOMERULAR FILTRATION RATE 2022-06-18 Arin Francois [facility] 20:03:00 [facility] CALCIUM LEVEL TOTAL 2022-06-18 [facility] 20:03:00 [facility] ALBUMIN LEVEL 2022-06-18 [facility] 20:03:00 [facility] ALKALINE PHOSPHATASE 2022-06-18 [facility] 20:03:00 [facility] ALANINE AMINOTRANSFERASE 2022-06-18 Arin Francois [facility] 20:03:00 [facility] ASPARTATE AMINOTRANSFERASE 2022-06-18 [facility] 20:03:00 [facility] TOTAL PROTEIN 2022-06-18 Pr[facility] 20:03:00 [facility] FRACTIONATED BILIRUBIN 2022-06-18 Priscila Arin [facility] 20:03:00 [facility] ABORH 2022-06-18 Pr[facility] 20:03:00 [facility] ANTIBODY SCREEN 2022-06-18 [facility] 20:03:00 [facility] CLOT EXPIRATION DATE 2022-06-18 [facility] 20:03:00 [facility] TMP INTERPRETATION ANTIBODY 2022-06-18 [facility] Arin [facility] SCREEN NEGATIVE 20:03:00 [facility] EKG, 12-LEAD (PORTABLE) 2022-06-18 Priscila Arin [facility] 00:00:00 [facility] COMPLETE BLOOD COUNT W/ 2022-06-04 [facility] 17:49:00 [facility] TOTAL PROTEIN 2022-06-04 [facility] 17:49:00 [facility] ALBUMIN LEVEL 2022-06-04 [place], [facility] xa 17:49:00 [facility] CALCIUM LEVEL TOTAL 2022-06-04 [facility], [facility] 17:49:00 [facility] PHOSPHORUS LEVEL 2022-06-04 [facility], [facility] exas 17:49:00 [facility] GLUCOSE, RANDOM 2022-06-04 [place], [facility] [place] 17:49:00 [facility] BLOOD UREA NITROGEN 2022-06-04 [facility], [facility] o [facility] 17:49:00 [facility] SERUM CREATININE 2022-06-04 [place], [facility] [place] 17:49:00 [facility] URIC ACID 2022-06-04 [place], [facility] [place] 17:49:00 [facility] FRACTIONATED BILIRUBIN 2022-06-04 [place], [facility] 17:49:00 [facility] ALKALINE PHOSPHATASE 2022-06-04 [facility], [facility] 17:49:00 [facility] LACTATE DEHYDROGENASE 2022-06-04 [facility], [facility] 17:49:00 [facility] ALANINE AMINOTRANSFERASE 2022-06-04 [place], [facility] 17:49:00 [facility] MAGNESIUM LEVEL 2022-06-04 [facility], [facility] [place] 17:49:00 [facility] ASPARTATE AMINOTRANSFERASE 2022-06-04 [place], [facility] 17:49:00 [facility] ELECTROLYTE PANEL 2022-06-04 [place], [facility] 17:49:00 [facility] TYPE AND SCREEN 2022-06-04 [facility], [facility] xa 17:49:00 [facility] Results CBC 2022-06-04 [place], [facility] xa 17:49:00 [facility] MANUAL DIFFERENTIAL 2022-06-04 [facility] [place] 17:49:00 [facility] SERUM CREATININE 2022-06-04 [facility], [facility] exas 17:49:00 [facility] .GLOMERULAR FILTRATION RATE 2022-06-04 [facility] 17:49:00 [facility] ABORH 2022-06-04 [facility], [facility] xa 17:49:00 [facility] ANTIBODY SCREEN 2022-06-04 [facility], [facility] 17:49:00 [facility] TMP INTERPRETATION ANTIBODY 2022-06-04 [facility] SCREEN NEGATIVE 17:49:00 [facility] CLOT EXPIRATION DATE 2022-06-04 [facility] 17:49:00 [facility] COVID-19 (SARS-COV-2) 2022-05-13 Luis Antonio Jules [facility] PCR-ASYMPTOMATIC MC 09:26:00 [facility] COMPLETE BLOOD COUNT W/ 2022-05-13 [facility] DIFFERENTIAL 09:26:00 [facility] SODIUM LEVEL 2022-05-13 [facility] xas 09:26:00 [facility] POTASSIUM LEVEL 2022-05-13 [place], [facility] [place] 09:26:00 [facility] CHLORIDE LEVEL 2022-05-13 [place], [facility] [place] 09:26:00 [facility] CARBON DIOXIDE LEVEL 2022-05-13 [place], [facility] 09:26:00 [facility] BLOOD UREA NITROGEN 2022-05-13 [place], [facility] [place] 09:26:00 [facility] SERUM CREATININE 2022-05-13 [place], [facility] exas 09:26:00 [facility] GLUCOSE, RANDOM 2022-05-13 [place], [facility] [place] 09:26:00 [facility] LACTATE DEHYDROGENASE 2022-05-13 [place], [facility] 09:26:00 [facility] URIC ACID 2022-05-13 [place], [facility] [place] 09:26:00 [facility] PHOSPHORUS LEVEL 2022-05-13 [place], [facility] exas 09:26:00 [facility] FRACTIONATED BILIRUBIN 2022-05-13 [place], [facility] 09:26:00 [facility] ALBUMIN LEVEL 2022-05-13 [place], [facility] [place] 09:26:00 [facility] CALCIUM LEVEL TOTAL 2022-05-13 [facility] 09:26:00 [facility] MAGNESIUM LEVEL 2022-05-13 [place], [facility] [place] 09:26:00 [facility] ALANINE AMINOTRANSFERASE 2022-05-13 [facility] 09:26:00 [facility] ASPARTATE AMINOTRANSFERASE 2022-05-13 [facility] 09:26:00 [facility] ALKALINE PHOSPHATASE 2022-05-13 [place], [facility] 09:26:00 [facility] Results CBC 2022-05-13 [place], [facility] [place] 09:26:00 [facility] MANUAL DIFFERENTIAL 2022-05-13 Andres, [facility] 09:26:00 [facility] SERUM CREATININE 2022-05-13 [place], [facility] [place] 09:26:00 [facility] .GLOMERULAR FILTRATION RATE 2022-05-13 [place], [facility] 09:26:00 [facility] ANION GAP 2022-05-13 [place], [facility] [place] 09:26:00 [facility] COMPLETE BLOOD COUNT W/ 2022-05-12 [place], [facility] DIFFERENTIAL 08:06:00 [facility] SODIUM LEVEL 2022-05-12 [place], [facility] [place] 08:06:00 [facility] POTASSIUM LEVEL 2022-05-12 [place], [facility] [place] 08:06:00 [facility] CHLORIDE LEVEL 2022-05-12 [place], [facility] [place] 08:06:00 [facility] CARBON DIOXIDE LEVEL 2022-05-12 [facility], [facility] 08:06:00 [facility] BLOOD UREA NITROGEN 2022-05-12 [place], [facility] 08:06:00 [facility] SERUM CREATININE 2022-05-12 [place], [facility] exas 08:06:00 [facility] GLUCOSE, RANDOM 2022-05-12 [facility], [facility] [place] 08:06:00 [facility] LACTATE DEHYDROGENASE 2022-05-12 [facility], [facility] 08:06:00 [facility] URIC ACID 2022-05-12 [place], [facility] [place] 08:06:00 [facility] PHOSPHORUS LEVEL 2022-05-12 [facility], [facility] [place] 08:06:00 [facility] FRACTIONATED BILIRUBIN 2022-05-12 [facility], [facility] 08:06:00 [facility] ALBUMIN LEVEL 2022-05-12 [place], [facility] [place] 08:06:00 [facility] CALCIUM LEVEL TOTAL 2022-05-12 [facility], [facility] 08:06:00 [facility] MAGNESIUM LEVEL 2022-05-12 [facility], [facility] [place] 08:06:00 [facility] ALANINE AMINOTRANSFERASE 2022-05-12 [place], [facility] 08:06:00 [facility] ASPARTATE AMINOTRANSFERASE 2022-05-12 Andres, [facility] 08:06:00 [facility] ALKALINE PHOSPHATASE 2022-05-12 [place], [facility] 08:06:00 [facility] Results CBC 2022-05-12 [place], [facility] [place] 08:06:00 [facility] MANUAL DIFFERENTIAL 2022-05-12 [place], [facility] 08:06:00 [facility] SERUM CREATININE 2022-05-12 [place], [facility] exas 08:06:00 [facility] .GLOMERULAR FILTRATION RATE 2022-05-12 [facility] 08:06:00 [facility] ANION GAP 2022-05-12 Wh[facility] xas 08:06:00 [facility] BLOODCULTURE 2022-05-11 Zahra Bhat [facility] ex 10:49:00 [facility] COMPLETE BLOOD COUNT W/ 2022-05-11 Andres [facility] DIFFERENTIAL 10:49:00 [facility] SODIUM LEVEL 2022-05-11 [facility] x[facility] 10:49:00 [facility] POTASSIUM LEVEL 2022-05-11 [place], [facility] x[place] 10:49:00 [facility] CHLORIDE LEVEL 2022-05-11 [place], [facility] [place] 10:49:00 [facility] CARBON DIOXIDE LEVEL 2022-05-11 [facility] 10:49:00 [facility] BLOOD UREA NITROGEN 2022-05-11 [place], [facility] 10:49:00 [facility] SERUM CREATININE 2022-05-11 [place], [facility] exas 10:49:00 [facility] GLUCOSE, RANDOM 2022-05-11 [place], [facility] [place] 10:49:00 [facility] LACTATE DEHYDROGENASE 2022-05-11 [place], [facility] 10:49:00 [facility] URIC ACID 2022-05-11 [place], [facility] [place] 10:49:00 [facility] PHOSPHORUS LEVEL 2022-05-11 [place], [facility] [place] 10:49:00 [facility] FRACTIONATED BILIRUBIN 2022-05-11 [place], [facility] 10:49:00 [facility] ALBUMIN LEVEL 2022-05-11 [place], [facility] [place] 10:49:00 [facility] CALCIUM LEVEL TOTAL 2022-05-11 [place], [facility] 10:49:00 [facility] MAGNESIUM LEVEL 2022-05-11 [place], [facility] [place] 10:49:00 [facility] ALANINE AMINOTRANSFERASE 2022-05-11 [facility] 10:49:00 [facility] ASPARTATE AMINOTRANSFERASE 2022-05-11 [facility] 10:49:00 [facility] ALKALINE PHOSPHATASE 2022-05-11 [place], [facility] 10:49:00 [facility] Results CBC 2022-05-11 [place], [facility] [place] 10:49:00 [facility] MANUAL DIFFERENTIAL 2022-05-11 [place], [facility] 10:49:00 [facility] SERUM CREATININE 2022-05-11 [place], [facility] exas 10:49:00 [facility] .GLOMERULAR FILTRATION RATE 2022-05-11 [facility] 10:49:00 [facility] ANION GAP 2022-05-11 [facility] [place] 10:49:00 [facility] XR CHEST 2 VW POST IMPLANT 2022-05-11 [facility] 04:10:37 [facility] XR CHEST 2 VW POST IMPLANT 2022-05-11 [facility] 04:10:37 [facility] VERIFY CATHETER TIP 2022-05-11 Chino Cavazos [facility] PLACEMENT 04:10:00 [facility] INSERT VASCULAR ACCESS 2022-05-11 Andres [facility] DEVICE 02:21:26 [facility] VASCULAR ACCESS ULTRASOUND 2022-05-11 [facility] 00:43[facility]41 [facility] TRANSESOPHAGEAL 2022-05-10 Andres [facility] [place] ECHOCARDIOGRAM (ERIBERTO) 19:59:00 [facility] TYPE AND SCREEN 2022-05-10 Andres [facility] [place] 11:57:00 [facility] ABORH 2022-05-10 Andres [facility] [place] 11:57:00 [facility] ANTIBODY SCREEN 2022-05-10 Andres [facility] [place] 11:57:00 [facility] COMPLETE BLOOD COUNT W/ 2022-05-10 Andres [facility] DIFFERENTIAL 11:57:00 [facility] SODIUM LEVEL 2022-05-10 Andres [facility] [place] 11:57:00 [facility] POTASSIUM LEVEL 2022-05-10 Andres [facility] x[place] 11:57:00 [facility] CHLORIDE LEVEL 2022-05-10 Andres [facility] x[place] 11:57:00 [facility] CARBON DIOXIDE LEVEL 2022-05-10 [facility] 11:57:00 [facility] BLOOD UREA NITROGEN 2022-05-[address] [facility] [place] 11:57:00 [facility] SERUM CREATININE 2022-05-10 Andres [facility] [place] 11:57:00 [facility] GLUCOSE, RANDOM 2022-05-10 Andres [facility] [place] 11:57:00 [facility] LACTATE DEHYDROGENASE 2022-05-10 [place], [facility] 11:57:00 [facility] URIC ACID 2022-05-10 [place], [facility] [place] 11:57:00 [facility] PHOSPHORUS LEVEL 2022-05-10 [place], [facility] [place] 11:57:00 [facility] FRACTIONATED BILIRUBIN 2022-05-10 [facility] 11:57:00 [facility] ALBUMIN LEVEL 2022-05-10 [facility] [place] 11:57:00 [facility] CALCIUM LEVEL TOTAL 2022-05-10 [facility] 11:57:00 [facility] MAGNESIUM LEVEL 2022-05-10 Andres [facility] xas 11:57:00 [facility] ALANINE AMINOTRANSFERASE 2022-05-10 [facility] 11:57:00 [facility] ASPARTATE AMINOTRANSFERASE 2022-05-10 [facility] 11:57:00 [facility] ALKALINE PHOSPHATASE 2022-05-10 [facility] 11:57:00 [facility] Results CBC 2022-05-10 [facility] 11:57:00 [facility] MANUAL DIFFERENTIAL 2022-05-10 Andres [facility] 11:57:00 [facility] SERUM CREATININE 2022-05-10 [facility] exas 11:57:00 [facility] .GLOMERULAR FILTRATION RATE 2022-05-10 [facility] 11:57:00 [facility] ANION GAP 2022-05-10 [facility] 11:57:00 [facility] CLOT EXPIRATION DATE 2022-05-10 [facility] 11:57:00 [facility] TMP INTERPRETATION ANTIBODY 2022-05-10 [facility] SCREEN NEGATIVE 11:57:00 [facility] CATHETER TIP CULTURE 2022-05-10 [facility] 01:01:[address] [facility] [address] ABDOMEN PELVIS W WO 2022-05-09 [facility] 22:44:17 [facility] ECHOCARDIOGRAM 2D COMPLETE 2022-05-09 Atiya [facility] 15:43:49 [facility] VANCOMYCIN LEVEL TROUGH 2022-05-09 Luis Antonio Jules [facility] 06:55:00 [facility] COMPLETE BLOOD COUNT W/ 2022-05-09 [place], [facility] DIFFERENTIAL 06:55:00 [facility] SODIUM LEVEL 2022-05-09 [place], [facility] [place] 06:55:00 [facility] POTASSIUM LEVEL 2022-05-09 [place], [facility] [place] 06:55:00 [facility] CHLORIDE LEVEL 2022-05-09 [place], [facility] [place] 06:55:00 [facility] CARBON DIOXIDE LEVEL 2022-05-09 [facility], [facility] 06:55:00 [facility] BLOOD UREA NITROGEN 2022-05-09 [place], [facility] [place] 06:55:00 [facility] SERUM CREATININE 2022-05-09 [place], [facility] exas 06:55:00 [facility] GLUCOSE, RANDOM 2022-05-09 [place], [facility] [place] 06:55:00 [facility] LACTATE DEHYDROGENASE 2022-05-09 [place], [facility] 06:55:00 [facility] URIC ACID 2022-05-09 [place], [facility] xas 06:55:00 [facility] PHOSPHORUS LEVEL 2022-05-09 Wharotn, [facility] exas 06:55:00 [facility] FRACTIONATED BILIRUBIN 2022-05-09 [place], [facility] 06:55:00 [facility] ALBUMIN LEVEL 2022-05-09 [place], [facility] [place] 06:55:00 [facility] CALCIUM LEVEL TOTAL 2022-05-09 [facility], [facility] [place] 06:55:00 [facility] MAGNESIUM LEVEL 2022-05-09 [place], [facility] [place] 06:55:00 [facility] ALANINE AMINOTRANSFERASE 2022-05-09 [place], [facility] 06:55:00 [facility] ASPARTATE AMINOTRANSFERASE 2022-05-09 [place], [facility] 06:55:00 [facility] ALKALINE PHOSPHATASE 2022-05-09 [facility] 06:55:00 [facility] Results CBC 2022-05-09 [facility] 06:55:00 [facility] MANUAL DIFFERENTIAL 2022-05-09 [facility] 06:55:00 [facility] SERUM CREATININE 2022-05-09 [facility] exas 06:55:00 [facility] .GLOMERULAR FILTRATION RATE 2022-05-09 [facility] 06:55:00 [facility] ANION GAP 2022-05-09 [facility] [place] 06:55:00 [facility] BLOODCULTURE 2022-05-08 [facility] x[place] 21:31:00 [facility] BLOODCULTURE 2022-05-08 [facility] 21:25:00 [facility] COMPLETE BLOOD COUNT W/ 2022-05-08 [facility] DIFFERENTIAL 10:54:00 [facility] SODIUM LEVEL 2022-05-08 [facility] 10:54:00 [facility] POTASSIUM LEVEL 2022-05-08 [facility] 10:54:00 [facility] CHLORIDE LEVEL 2022-05-08 [facility] 10:54:00 [facility] CARBON DIOXIDE LEVEL 2022-05-08 [facility] 10:54:00 [facility] BLOOD UREA NITROGEN 2022-05-08 [facility] 10:54:00 [facility] SERUM CREATININE 2022-05-08 [facility] [place] 10:54:00 [facility] GLUCOSE, RANDOM 2022-05-08 [facility] [place] 10:54:00 [facility] LACTATE DEHYDROGENASE 2022-05-08 [facility] 10:54:00 [facility] URIC ACID 2022-05-08 [facility] [place] 10:54:00 [facility] PHOSPHORUS LEVEL 2022-05-08 [place], [facility] [place] 10:54:00 [facility] FRACTIONATED BILIRUBIN 2022-05-08 [place], [facility] 10:54:00 [facility] ALBUMIN LEVEL 2022-05-08 [place], [facility] [place] 10:54:00 [facility] CALCIUM LEVEL TOTAL 2022-05-08 [place], [facility] [place] 10:54:00 [facility] MAGNESIUM LEVEL 2022-05-08 [place], [facility] [place] 10:54:00 [facility] ALANINE AMINOTRANSFERASE 2022-05-08 [place], [facility] 10:54:00 [facility] ASPARTATE AMINOTRANSFERASE 2022-05-08 [facility] 10:54:00 [facility] ALKALINE PHOSPHATASE 2022-05-08 Andres [facility] 10:54:00 [facility] Results CBC 2022-05-08 [place], [facility] [place] 10:54:00 [facility] MANUAL DIFFERENTIAL 2022-05-08 [facility] 10:54:00 [facility] SERUM CREATININE 2022-05-08 [facility] [place] 10:54:00 [facility] .GLOMERULAR FILTRATION RATE 2022-05-08 [facility] 10:54:00 [facility] ANION GAP 2022-05-08 [facility] [place] 10:54:00 [facility] US ARM VENOUS DOPPLER LEFT 2022-05-07 [facility] 20:13:44 [facility] BLOODCULTURE 2022-05-07 [facility] [place] 17:41:00 [facility] BLOODCULTURE 2022-05-07 [facility] [place] 16:46:00 [facility] COMPLETE BLOOD COUNT W/ 2022-05-[facility] 08:41:00 [facility] SODIUM LEVEL 2022-05-07 [place], [facility] [place] 08:41:00 [facility] POTASSIUM LEVEL 2022-05-07 [place], [facility] [place] 08:41:00 [facility] CHLORIDE LEVEL 2022-05-07 [place], [facility] [place] 08:41:00 [facility] CARBON DIOXIDE LEVEL 2022-05-07 [facility], [facility] 08:41:00 [facility] BLOOD UREA NITROGEN 2022-05-07 [facility], [facility] 08:41:00 [facility] SERUM CREATININE 2022-05-07 [facility], [facility] exas 08:41:00 [facility] GLUCOSE, RANDOM 2022-05-07 [place], [facility] [place] 08:41:00 [facility] LACTATE DEHYDROGENASE 2022-05-07 [facility], [facility] 08:41:00 [facility] URIC ACID 2022-05-07 [place], [facility] [place] 08:41:00 [facility] PHOSPHORUS LEVEL 2022-05-07 [facility], [facility] exas 08:41:00 [facility] FRACTIONATED BILIRUBIN 2022-05-07 [place], [facility] 08:41:00 [facility] ALBUMIN LEVEL 2022-05-07 [facility], [facility] [place] 08:41:00 [facility] CALCIUM LEVEL TOTAL 2022-05-07 [facility], [facility] 08:41:00 [facility] MAGNESIUM LEVEL 2022-05-07 [facility], [facility] [place] 08:41:00 [facility] ALANINE AMINOTRANSFERASE 2022-05-07 [facility] 08:41:00 [facility] ASPARTATE AMINOTRANSFERASE 2022-05-07 [facility] 08:41:00 [facility] ALKALINE PHOSPHATASE 2022-05-07 [facility], [facility] 08:41:00 [facility] Results CBC 2022-05-07 [place], [facility] [place] 08:41:00 [facility] MANUAL DIFFERENTIAL 2022-05-07 [facility] [place] 08:41:00 [facility] SERUM CREATININE 2022-05-07 [facility] [place]as 08:41:00 [facility] .GLOMERULAR FILTRATION RATE 2022-05-07 [facility] 08:41:00 [facility] ANION GAP 2022-05-07 [facility] [place] 08:41:00 [facility] BLOODCULTURE 2022-05-07 [facility] 00:56:00 [facility] URINALYSIS WITH MICROSCOPIC 2022-05-06 [facility] IF INDICATED 11:04:00 [facility] URINALYSIS MICROSCOPIC EXAM 2022-05-06 [facility] 11:04:00 [facility] URINE CULTURE 2022-05-06 [facility] [place] 11:04:00 [facility] POC CHEM 8 2022-05-06 [facility] [place] 09:05:00 [facility] XR CHEST 1 VW PORTABLE 2022-05-06 [facility] 08:54:33 [facility] BLOODCULTURE 2022-05-06 [facility] [place] 08:46:00 [facility] POC VENOUS BLOOD GAS + 2022-05-06 [facility] LACTATE 08:30:00 [facility] COMPLETE BLOOD COUNT W/ 2022-05-06 [facility] DIFFERENTIAL 08:29:00 [facility] TYPE AND SCREEN 2022-05-06 [facility] [place] 08:29:00 [facility] COMPREHENSIVE METABOLIC 2022-05-06 [facility] PANEL 08:29:00 [facility] MAGNESIUM LEVEL 2022-05-06 [facility] 08:29[facility]00 [facility] PHOSPHORUS LEVEL 2022-05-06 [facility] exas 08:29:00 [facility] PROTHROMBIN TIME 2022-05-06 [facility] exas 08:29:00 [facility] APTT 2022-05-06 [facility] [place] 08:29:00 [facility] D DIMER 2022-05-06 [facility] 08:29:00 [facility] FIBRINOGEN ACTIVITY 2022-05-06 [facility] [place] 08:29:00 [facility] PROCALCITONIN 2022-05-06 [facility] xa 08:29:00 [facility] LACTATE DEHYDROGENASE 2022-05-06 [facility] 08:29:00 [facility] C REACTIVE PROTEIN 2022-05-06 [facility] 08:29:00 [facility] CARDIAC PANEL 2022-05-06 [facility] xa 08:29:00 [facility] Results CBC 2022-05-06 [facility] xa 08:29:00 [facility] MANUAL DIFFERENTIAL 2022-05-06 [facility] [place] 08:29:00 [facility] GLUCOSE LEVEL 2022-05-06 [facility] xa 08:29:00 [facility] BLOOD UREA NITROGEN 2022-05-06 [facility] 08:29:00 [facility] ELECTROLYTE PANEL 2022-05-06 [facility] 08:29:00 [facility] SERUM CREATININE 2022-05-06 [facility] [place] 08:29:00 [facility] .GLOMERULAR FILTRATION RATE 2022-05-06 [facility] 08:29:00 [facility] CALCIUM LEVEL TOTAL 2022-05-06 [facility] [place] 08:29:00 [facility] ALBUMIN LEVEL 2022-05-06 [facility] [place] 08:29:00 [facility] ALKALINE PHOSPHATASE 2022-05-06 [facility] 08:29:00 [facility] ALANINE AMINOTRANSFERASE 2022-05-06 [facility] 08:29:00 [facility] ASPARTATE AMINOTRANSFERASE 2022-05-06 [facility] 08:[facility]00 [facility] TOTAL PROTEIN 2022-05-06 [facility] [place] 08:29[facility]00 [facility] FRACTIONATED BILIRUBIN 2022-05-06 [facility] 08:29[facility]00 [facility] ABORH 2022-05-06 [facility] [place] 08:29:00 [facility] ANTIBODY SCREEN 2022-05-06 [facility] [place] 08:29:00 [facility] CLOT EXPIRATION DATE 2022-05-06 [facility] 08:29:00 [facility] TMP INTERPRETATION ANTIBODY 2022-05-06 [facility] SCREEN NEGATIVE 08:29:00 [facility] BLOODCULTURE 2022-05-06 [facility] [place] 08:29:00 [facility] RESPIRATORY VIRAL MULTIPLEX 2022-05-06 [facility] PCR PANEL, NASOPHARYNGEAL 08:29:00 MD Toure [facility] POC GLUCOSE SCREEN 2022-05-06 [facility] 08:17:00 [facility] EKG, 12-LEAD (PORTABLE) 2022-05-06 [facility] 00:[facility]00 [facility] COMPLETE BLOOD COUNT W/ 2022-03-19 [facility] DIFFERENTIAL 19:48:00 Lefty [facility] COMPREHENSIVE METABOLIC 2022-03-19 [facility] [place] PANEL 19:48:00 Lefty [facility] URIC ACID 2022-03-19 [facility] 19:48:00 Lefty [facility] LACTATE DEHYDROGENASE 2022-03-19 [facility] 19:48:00 Lefty GRACIA [facility] MAGNESIUM LEVEL 2022-03-19 [facility] 19:48:00 Lefty GRACIA [facility] PHOSPHORUS LEVEL 2022-03-19 [facility] 19:48:00 Lefty GRACIA [facility] TYPE AND SCREEN 2022-03-19 [facility] 19:48:00 Lefty GRACIA [facility] Results CBC 2022-03-19 [facility] 19:48:00 Lefty GRACIA [facility] MANUAL DIFFERENTIAL 2022-03-19 [facility]00 Lefty GRACIA [facility] GLUCOSE LEVEL 2022-03-19 [facility] 19:48:00 Lefty GRACIA [facility] BLOOD UREA NITROGEN 2022-03-19 [facility] 19:48[facility]00 Lefty GRACIA [facility] ELECTROLYTE PANEL 2022-03-19 [facility] 19:48:00 Olea [facility] SERUM CREATININE 2022-03-19 [facility] 19:48:00 Lefty GRACIA [facility] .GLOMERULAR FILTRATION RATE 2022-03-19 [facility] 19:48:00 Lefty GRACIA [facility] CALCIUM LEVEL TOTAL 2022-03-[address] [facility] 19:48:00 Lefty GRACIA [facility] ALBUMIN LEVEL 2022-03-19 [facility] 19:48:00 Lefty GRACIA [facility] ALKALINE PHOSPHATASE 2022-03-19 [facility] 19:48:00 Lefty GRACIA [facility] ALANINE AMINOTRANSFERASE 2022-03-19 [facility] 19:48:00 Lefty GRACIA [facility] ASPARTATE AMINOTRANSFERASE 2022-03-19 [facility] 19:48:00 Lefty GRACIA [facility] TOTAL PROTEIN 2022-03-19 [facility] 19:48:00 Lefty GRACIA [facility] FRACTIONATED BILIRUBIN 2022-03-19 [facility] 19:48:00 Lefty GRACIA [facility] ABORH 2022-03-19 [facility] [place] 19:48:00 Lefty GRACIA [facility] ANTIBODY SCREEN 2022-03-19 [facility] x[place] 19:48:00 Lefty GRACIA [facility] CLOT EXPIRATION DATE 2022-03-19 [facility] 19:48:00 Lefty GRACIA [facility] TMP INTERPRETATION ANTIBODY 2022-03-19 [facility] SCREEN NEGATIVE 19:48:00 Lefty GRACIA [facility] CT CHEST ABDOMEN PELVIS W 2022-03-18 [facility] CONTRAST 19:20:00 Jihan GRACIA [facility] URINALYSIS WITH MICROSCOPIC 2022-03-16 [facility] IF INDICATED 10:50:00 [facility] URINE CULTURE 2022-03-16 Kenney [facility] [place] 10:50:[address] [facility] [address] ABDOMEN PELVIS W CONTRAST 2022-03-[address] 08:47:00 [facility] POC CHEM 8 2022-03-16 Kenney [facility] [place] 08:14:00 [facility] COMPLETE BLOOD COUNT W/ 2022-03-16 Kenney [facility] DIFFERENTIAL 08:08:00 [facility] COMPREHENSIVE METABOLIC 2022-03-16 Kenney [facility] PANEL 08:08:00 [facility] MAGNESIUM LEVEL 2022-03-16 Kenney [facility] [place] 08:08:00 [facility] PHOSPHORUS LEVEL 2022-03-16 Lb [place] [facility] exas 08:08:00 [facility] Results CBC 2022-03-16 Kenney [facility] [place] 08:08:00 [facility] MANUAL DIFFERENTIAL 2022-03-16 Lb [place] [facility] [place] 08:08:00 [facility] GLUCOSE LEVEL 2022-03-16 Kenney [facility] [place] 08:08:00 [facility] BLOOD UREA NITROGEN 2022-03-16 [facility] 08:08:00 [facility] ELECTROLYTE PANEL 2022-03-16 [facility] 08[facility]08:00 [facility] SERUM CREATININE 2022-03-16 [facility] [place] 08:08:00 [facility] .GLOMERULAR FILTRATION RATE 2022-03-16 Kenney [facility] 08:08:00 [facility] CALCIUM LEVEL TOTAL 2022-03-16 [facility] 08:08:00 [facility] ALBUMIN LEVEL 2022-03-16 [facility] xa 08:08:00 [facility] ALKALINE PHOSPHATASE 2022-03-16 [facility] 08:08:00 [facility] ALANINE AMINOTRANSFERASE 2022-03-16 [facility] 08:08:00 [facility] ASPARTATE AMINOTRANSFERASE 2022-03-16 [facility] 08:08:00 [facility] TOTAL PROTEIN 2022-03-16 [facility] 08:08:00 [facility] FRACTIONATED BILIRUBIN 2022-03-16 [facility] 08:08:00 [facility] LACTATE DEHYDROGENASE 2022-03-16 [facility] 07:58:00 [facility] AMYLASE LEVEL 2022-03-16 [facility] 07:58:00 [facility] LIPASE LEVEL 2022-03-16 [facility] [place] 07:58:00 [facility] COMPLETE BLOOD COUNT W/ 2022-02-[address] [facility] DIFFERENTIAL 16:30:00 [facility] COMPREHENSIVE METABOLIC 2022-02-[address] [facility] PANEL 16:30:00 [facility] LACTATE DEHYDROGENASE 2022-02-26 Curly Fay [facility] 16:30:00 [facility] MAGNESIUM LEVEL 2022-02-26 [facility] 16:30:00 [facility] PHOSPHORUS LEVEL 2022-02-26 [facility] 16:30:00 [facility] TYPE AND SCREEN 2022-02-26 [facility] 16:30:00 [facility] URIC ACID 2022-02-26 [facility] 16:30:00 [facility] Results CBC 2022-02-26 [facility] 16:30:00 [facility] MANUAL DIFFERENTIAL 2022-02-26 [facility] 16:30:00 [facility] GLUCOSE LEVEL 2022-02-26 [facility] 16:30:00 [facility] BLOOD UREA NITROGEN 2022-02-26 [facility] 16:30:00 [facility] ELECTROLYTE PANEL 2022-02-26 [facility] 16:30:00 [facility] SERUM CREATININE 2022-02-26 [facility] 16:30:00 [facility] .GLOMERULAR FILTRATION RATE 2022-02-26 [facility] 16:30:00 [facility] CALCIUM LEVEL TOTAL 2022-02-26 [facility] 16:30:00 [facility] ALBUMIN LEVEL 2022-02-26 [facility] 16:30:00 [facility] ALKALINE PHOSPHATASE 2022-02-26 [facility] 16:30:00 [facility] ALANINE AMINOTRANSFERASE 2022-02-26 L[facility]ie [facility] 16:30:00 [facility] ASPARTATE AMINOTRANSFERASE 2022-02-26 [facility] 16:30:00 [facility] TOTAL PROTEIN 2022-02-26 [facility] 16:30:00 [facility] FRACTIONATED BILIRUBIN 2022-02-26 Curly Fay [facility] 16:30:00 [facility] ABORH 2022-02-26 Nya [facility] 16:30:00 [facility] ANTIBODY SCREEN 2022-02-26 Nya [facility] 16:30:00 [facility] TMP INTERPRETATION ANTIBODY 2022-02-26 Nya [facility] SCREEN NEGATIVE 16:30:00 [facility] CLOT EXPIRATION DATE 2022-02-26 Curly Fay [facility] 16:30:00 [facility] COMPLETE BLOOD COUNT W/ 2022-02-06 [facility] DIFFER[facility] 17:19:00 [facility] COMPREHENSIVE METABOLIC 2022-02-06 [facility] PANEL 17:19:00 [facility] TYPE AND SCREEN 2022-02-06 [facility] 17:19:00 [facility] LACTATE DEHYDROGENASE 2022-02-06 [facility]ly [facility] 17:19:00 [facility] MAGNESIUM LEVEL 2022-02-06 [facility] 17:19:00 [facility] PHOSPHORUS LEVEL 2022-02-06 [facility] 17:19:00 [facility] URIC ACID 2022-02-06 [facility] 17:19:00 [facility] Results CBC 2022-02-06 [facility] 17:19:00 [facility] MANUAL DIFFERENTIAL 2022-02-06 Moises [facility] 17:19:00 [facility] GLUCOSE LEVEL 2022-02-06 [facility] [place] 17:19:00 [facility] BLOOD UREA NITROGEN 2022-02-06 [facility] 17:19:00 [facility] ELECTROLYTE PANEL 2022-02-06 [facility] 17:19:00 [facility] SERUM CREATININE 2022-02-06 [facility] 17:19:00 [facility] .GLOMERULAR FILTRATION RATE 2022-02-06 [facility] 17:19:00 [facility] CALCIUM LEVEL TOTAL 2022-02-06 [facility] 17:19:00 [facility] ALBUMIN LEVEL 2022-02-06 [facility] xa 17:19:00 [facility] ALKALINE PHOSPHATASE 2022-02-06 [facility] 17:19:00 [facility] ALANINE AMINOTRANSFERASE 2022-02-06 [facility] 17:19:00 [facility] ASPARTATE AMINOTRANSFERASE 2022-02-06 [facility] 17:19:00 [facility] TOTAL PROTEIN 2022-02-06 [facility] xa 17:19:00 [facility] FRACTIONATED BILIRUBIN 2022-02-06 [facility] 17:19:00 [facility] ABORH 2022-02-06 [facility] xa 17:19:00 [facility] ANTIBODY SCREEN 2022-02-06 [facility] xa 17:19:00 [facility] CLOT EXPIRATION DATE 2022-02-06 [facility] 17:19:00 [facility] TMP INTERPRETATION ANTIBODY 2022-02-06 [facility] SCREEN NEGATIVE 17:19:00 [facility] COMPLETE BLOOD COUNT W/ 2022-01-09 Pablito Mayerroz [facility] DIFFERENTIAL 11:39:00 [facility] TOTAL PROTEIN 2022-01-09 Leyla [facility] [place] 11:39:00 [facility] ALBUMIN LEVEL 2022-01-09 Leyla [facility] [place] 11:39:00 [facility] CALCIUM LEVEL TOTAL 2022-01-09 [facility] 11:39:00 [facility] PHOSPHORUS LEVEL 2022-01-09 [facility] [place] 11:39:00 [facility] GLUCOSE, RANDOM 2022-01-09 [facility] [place] 11:39:00 [facility] BLOOD UREA NITROGEN 2022-01-09 [facility] [place] 11:39:00 [facility] SERUM CREATININE 2022-01-09 [facility] [place] 11:39:00 [facility] URIC ACID 2022-01-09 [facility] [place] 11:39:00 [facility] FRACTIONATED BILIRUBIN 2022-01-09 [facility] 11:39:00 [facility] ALKALINE PHOSPHATASE 2022-01-09 [facility] 11:39:00 [facility] LACTATE DEHYDROGENASE 2022-01-09 [facility] 11:39:00 [facility] ALANINE AMINOTRANSFERASE 2022-01-09 [facility] 11:39:00 [facility] MAGNESIUM LEVEL 2022-01-09 [facility] xa 11:39:00 [facility] ASPARTATE AMINOTRANSFERASE 2022-01-09 [facility] 11:39:00 [facility] ELECTROLYTE PANEL 2022-01-09 [facility] 11:39:00 [facility] HBV DNA QUANT 2022-01-09 [facility] [place] 11:39:00 [facility] Results CBC 2022-01-09 [facility] 11:39:00 [facility] MANUAL DIFFERENTIAL 2022-01-09 [facility]azan [facility] 11:39:00 [facility] SERUM CREATININE 2022-01-09 [facility]an [facility] 11:39:00 [facility] .GLOMERULAR FILTRATION RATE 2022-01-09 Phoebe Perez [facility] 11:39:00 [facility] PETCT SUBSEQUENT TREATMENT 2022-01-08 Kymberly Faynathan [facility] STRATEGY 21:21:00 [facility] COMPLETE BLOOD COUNT W/ 2021-12-[address] [facility] DIFFERENTIAL 09:59:00 [facility] SODIUM LEVEL 2021-12-23 Nya [facility] 09:59:00 [facility] POTASSIUM LEVEL 2021-12-23 Nya [facility] 09:59:00 [facility] CHLORIDE LEVEL 2021-12-23 Nya [facility] 09:59:00 [facility] CARBON DIOXIDE LEVEL 2021-12-23 Curly Fay [facility] 09:59:00 [facility] BLOOD UREA NITROGEN 2021-12-23 Curly Fay [facility] 09:59:00 [facility] SERUM CREATININE 2021-12-23 Nya [facility] 09:59:00 [facility] GLUCOSE, RANDOM 2021-12-23 Nya [facility] 09:59:00 [facility] LACTATE DEHYDROGENASE 2021-12-23 Curly Fay [facility] 09:59:00 [facility] URIC ACID 2021-12-23 Nya [facility] 09:59:00 [facility] PHOSPHORUS LEVEL 2021-12-23 Nya [facility] 09:59:00 [facility] FRACTIONATED BILIRUBIN 2021-12-23 Nya [facility] 09:59:00 [facility] ALBUMIN LEVEL 2021-12-23 Nya [facility] 09:59:00 [facility] CALCIUM LEVEL TOTAL 2021-12-23 Curly Fay [facility] 09:59:00 [facility] MAGNESIUM LEVEL 2021-12-23 [facility] 09:59:00 [facility] ALANINE AMINOTRANSFERASE 2021-12-23 Curly Fay [facility] 09:59:00 [facility] ASPARTATE AMINOTRANSFERASE 2021-12-23 Nya [facility] 09:59:00 [facility] ALKALINE PHOSPHATASE 2021-12-23 Nya [facility] 09:59:00 [facility] Results CBC 2021-12-23 Nya [facility] 09:59:00 [facility] MANUAL DIFFERENTIAL 2021-12-23 Kymberly Faynathan [facility] 09:59:00 [facility] SERUM CREATININE 2021-12-23 Nya [facility] 09:59:00 [facility] .GLOMERULAR FILTRATION RATE 2021-12-23 Nya [facility] 09:59:00 [facility] ANION GAP 2021-12-23 Nya [facility] 09:59:00 [facility] PROCALCITONIN 2021-12-22 [facility] xa 21:07:00 [facility] COMPLETE BLOOD COUNT W/ 2021-12-[address] [facility] DIFFERENTIAL 08:04:00 [facility] SODIUM LEVEL 2021-12-22 Nya [facility] 08:04:00 [facility] POTASSIUM LEVEL 2021-12-22 Nya [facility] 08:04:00 [facility] CHLORIDE LEVEL 2021-12-22 Nya [facility] 08:04:00 [facility] CARBON DIOXIDE LEVEL 2021-12-22 [facility] 08:04:00 [facility] BLOOD UREA NITROGEN 2021-12-22 Curly Fay [facility] 08:04:00 [facility] SERUM CREATININE 2021-12-22 Nya [facility] 08:04:00 [facility] GLUCOSE, RANDOM 2021-12-22 Nya [facility] 08:04:00 [facility] LACTATE DEHYDROGENASE 2021-12-22 Curly Fay [facility] 08:04:00 [facility] URIC ACID 2021-12-22 Nya [facility] 08:04:00 [facility] PHOSPHORUS LEVEL 2021-12-22 Nya [facility] 08:04:00 [facility] FRACTIONATED BILIRUBIN 2021-12-22 [facility] 08:04:00 [facility] ALBUMIN LEVEL 2021-12-22 Nya [facility] 08:04:00 [facility] CALCIUM LEVEL TOTAL 2021-12-22 [facility] 08:04:00 [facility] MAGNESIUM LEVEL 2021-12-22 Nya [facility] 08:04:00 [facility] ALANINE AMINOTRANSFERASE 2021-12-22 Curly Fay [facility] 08:04:00 [facility] ASPARTATE AMINOTRANSFERASE 2021-12-22 Nya [facility] 08:04:00 [facility] ALKALINE PHOSPHATASE 2021-12-22 Nya [facility] 08:04:00 [facility] Results CBC 2021-12-22 Nya [facility] 08:04:00 [facility] MANUAL DIFFERENTIAL 2021-12-22 Curly Fay [facility] 08:04:00 [facility] SERUM CREATININE 2021-12-22 Nya [facility] 08:04:00 [facility] .GLOMERULAR FILTRATION RATE 2021-12-22 Nya [facility] 08:04:00 [facility] ANION GAP 2021-12-22 Fay [facility] 08:04:00 [facility] TYPE AND SCREEN 2021-12-22 [facility] 02:34:00 [facility] ABORH 2021-12-22 Nya [facility] 02:34:00 [facility] ANTIBODY SCREEN 2021-12-22 Nya [facility] 02:34:00 [facility] COMPLETE BLOOD COUNT W/ 2021-12-22 [facility] DIFFERENTIAL 02:34:00 [facility] BASIC METABOLIC PANEL, 2021-12-22 LucioDell [facility] CALCIUM TOTAL 02:34:00 [facility] MAGNESIUM LEVEL 2021-12-22 [facility] ex 02:34:00 [facility] PHOSPHORUS LEVEL 2021-12-22 [facility] 02:34:00 [facility] Results CBC 2021-12-22 [facility] ex 02:34:00 [facility] MANUAL DIFFERENTIAL 2021-12-22 [facility] 02:34:00 [facility] GLUCOSE LEVEL 2021-12-22 [facility] ex 02:34:00 [facility] ELECTROLYTE PANEL 2021-12-22 [facility] 02:34:00 [facility] SERUM CREATININE 2021-12-22 [facility] 02:34:00 [facility] .GLOMERULAR FILTRATION RATE 2021-12-22 [facility] 02:34:00 [facility] CALCIUM LEVEL TOTAL 2021-12-22 [facility] 02:34:00 [facility] BLOOD UREA NITROGEN 2021-12-22 [facility] 02:34:00 [facility] CLOT EXPIRATION DATE 2021-12-22 Curly Fay [facility] 02:34:00 [facility] TMP INTERPRETATION ANTIBODY 2021-12-22 Curly Fay [facility] SCREEN NEGATIVE 02:34:00 [facility] COVID-19 (SARS-COV-2) 2021-12-22 Phoebe Perez [facility] ASYMPTOMATIC-LT 01:09:00 [facility] COMPLETE BLOOD COUNT W/ 2021-12-18 Leyla [facility] DIFFERENTIAL 17:16:00 [facility] TOTAL PROTEIN 2021-12-18 [facility] 17:16:00 [facility] ALBUMIN LEVEL 2021-12-18 [facility] 17:16:00 [facility] CALCIUM LEVEL TOTAL 2021-12-18 [facility] 17:16:00 [facility] PHOSPHORUS LEVEL 2021-12-18 [facility] 17:16:00 [facility] GLUCOSE, RANDOM 2021-12-18 [facility] 17:16:00 [facility] BLOOD UREA NITROGEN 2021-12-18 [facility] 17:16:00 [facility] SERUM CREATININE 2021-12-18 [facility] 17:16:00 [facility] URIC ACID 2021-12-18 [facility] 17:16:00 [facility] FRACTIONATED BILIRUBIN 2021-12-18 [facility] 17:16:00 [facility] ALKALINE PHOSPHATASE 2021-12-18 [facility] 17:16:00 [facility] LACTATE DEHYDROGENASE 2021-12-18 [facility] 17:16:00 [facility] ALANINE AMINOTRANSFERASE 2021-12-18 [facility] 17:16:00 [facility] MAGNESIUM LEVEL 2021-12-18 [facility] 17:16:00 [facility] ASPARTATE AMINOTRANSFERASE 2021-12-18 Pablito [facility] 17:16:00 [facility] ELECTROLYTE PANEL 2021-12-18 Marciano Mayer [facility] 17:16:00 [facility] Results CBC 2021-12-18 [facility] 17:16:00 [facility] MANUAL DIFFERENTIAL 2021-12-18 Severo Munroe [facility] 17:16:00 [facility] SERUM CREATININE 2021-12-18 Severo Munroe [facility] 17:16:00 [facility] .GLOMERULAR FILTRATION RATE 2021-12-18 Severo Munroe [facility] 17:16:00 [facility] COMPLETE BLOOD COUNT W/ 2021-12-03 Lucinda Antoine [facility] DIFFERENTIAL 17:31:00 [facility] TOTAL PROTEIN 2021-12-03 Lucinda Antoine [facility] 17:31:00 [facility] ALBUMIN LEVEL 2021-12-03 Lucinda Antoine [facility] 17:31:00 [facility] CALCIUM LEVEL TOTAL 2021-12-03 Lucinda Antoine [facility] 17:31:00 [facility] PHOSPHORUS LEVEL 2021-12-03 Lucinda Antoine [facility] ex 17:31:00 [facility] GLUCOSE, RANDOM 2021-12-03 Lucinda Antoine [facility] 17:31:00 [facility] BLOOD UREA NITROGEN 2021-12-03 Lucinda Antoine [facility] 17:31:00 [facility] SERUM CREATININE 2021-12-03 Lucinda Antoine [facility] [place] 17:31:00 [facility] URIC ACID 2021-12-03 Lucinda Atnoine [facility] 17:31:00 [facility] FRACTIONATED BILIRUBIN 2021-12-03 Lucinda Antoine [facility] 17:31:00 [facility] ALKALINE PHOSPHATASE 2021-12-03 Lucinda Antoine [facility] 17:31:00 [facility] LACTATE DEHYDROGENASE 2021-12-03 Lucinda Antoine [facility] 17:31:00 [facility] ALANINE AMINOTRANSFERASE 2021-12-03 Lucinda Antoine [facility] 17:31:00 [facility] MAGNESIUM LEVEL 2021-12-03 Lucinda Antoine [facility] 17:31:00 [facility] ASPARTATE AMINOTRANSFERASE 2021-12-03 Lucinda Antoine [facility] 17:31:00 [facility] ELECTROLYTE PANEL 2021-12-03 Lucinda Antoine [facility] 17:31:00 [facility] TYPE AND SCREEN 2021-12-03 Lucinda Antoine [facility] 17:31:00 [facility] Results CBC 2021-12-03 Lucinda Antoine [facility] 17:31:00 [facility] MANUAL DIFFERENTIAL 2021-12-03 Lucinda Antoine [facility] 17:31:00 [facility] SERUM CREATININE 2021-12-03 Lucinda Antoine [facility] [place]as 17:31:00 [facility] .GLOMERULAR FILTRATION RATE 2021-12-03 Lucinda Antoine [facility] 17:31:00 [facility] ABORH 2021-12-03 Lucinda Antoine [facility] 17:31:00 [facility] ANTIBODY SCREEN 2021-12-03 Lucinda Antoine [facility] 17:31:00 [facility] CLOT EXPIRATION DATE 2021-12-03 Lucinda Antoine [facility] 17:31:00 [facility] TMP INTERPRETATION ANTIBODY 2021-12-03 Lucinda Antoine [facility] SCREEN NEGATIVE 17:31:00 [facility] COMPLETE BLOOD COUNT W/ 2021-11-26 Marciano Mayer [facility] DIFFERENTIAL 09:44:00 [facility] SODIUM LEVEL 2021-11-26 Leyla [facility] 09:44:00 [facility] POTASSIUM LEVEL 2021-11-26 Leyla [facility] 09:44:00 [facility] CHLORIDE LEVEL 2021-11-26 Leyla [facility] 09:44:00 [facility] CARBON DIOXIDE LEVEL 2021-11-26 [facility] 09:44:00 [facility] BLOOD UREA NITROGEN 2021-11-26 [facility] [place] 09:44:00 [facility] SERUM CREATININE 2021-11-26 [facility] 09:44:00 [facility] GLUCOSE, RANDOM 2021-11-26 [facility] [place] 09:44:00 [facility] LACTATE DEHYDROGENASE 2021-11-26 [facility] 09:44:00 [facility] URIC ACID 2021-11-26 [facility] 09:44:00 [facility] PHOSPHORUS LEVEL 2021-11-26 [facility] 09:44:00 [facility] FRACTIONATED BILIRUBIN 2021-11-26 [facility] 09:44:00 [facility] ALBUMIN LEVEL 2021-11-26 [facility] 09:44:00 [facility] CALCIUM LEVEL TOTAL 2021-11-26 [facility] 09:44:00 [facility] MAGNESIUM LEVEL 2021-11-26 [facility] 09:44:00 [facility] ALANINE AMINOTRANSFERASE 2021-11-26 [facility] 09:44:00 [facility] ASPARTATE AMINOTRANSFERASE 2021-11-26 [facility] 09:44:00 [facility] ALKALINE PHOSPHATASE 2021-11-26 [facility] 09:44:00 [facility] Results CBC 2021-11-26 Severo Munroe [facility] 09:44:00 [facility] MANUAL DIFFERENTIAL 2021-11-26 Severo Munroe [facility] 09:44:00 [facility] SERUM CREATININE 2021-11-26 Severo Munroe [facility] 09:44:00 [facility] .GLOMERULAR FILTRATION RATE 2021-11-26 Severo Munroe [facility] 09:44:00 [facility] ANION GAP 2021-11-26 Severo Munroe [facility] 09:44:00 [facility] TYPE AND SCREEN 2021-11-25 Leyla [facility] [place] 10:17:00 [facility] COMPLETE BLOOD COUNT W/ 2021-11-25 Leyla [facility] DIFFERENTIAL 10:17:00 [facility] SODIUM LEVEL 2021-11-25 Leyla [facility] 10:17:00 [facility] POTASSIUM LEVEL 2021-11-25 Leyla [facility] 10:17:00 [facility] CHLORIDE LEVEL 2021-11-25 Leyla [facility] 10:17:00 [facility] CARBON DIOXIDE LEVEL 2021-11-[address] [facility] 10:17:00 [facility] BLOOD UREA NITROGEN 2021-11-25 Leyla [facility] 10:17:00 [facility] SERUM CREATININE 2021-11-25 Leyla [facility] exas 10:17:00 [facility] GLUCOSE, RANDOM 2021-11-25 Leyla [facility] 10:17:00 [facility] LACTATE DEHYDROGENASE 2021-11-[address] [facility] 10:17:00 [facility] URIC ACID 2021-11-25 Leyla [facility] 10:17:00 [facility] PHOSPHORUS LEVEL 2021-11-25 Leyla [facility] exas 10:17:00 [facility] FRACTIONATED BILIRUBIN 2021-11-25 Leyla [facility] 10:17:00 [facility] ALBUMIN LEVEL 2021-11-25 Leyla [facility] 10:17:00 [facility] CALCIUM LEVEL TOTAL 2021-11-25 Le[facility] 10:17:00 [facility] MAGNESIUM LEVEL 2021-11-25 Pablito Mayerroz [facility] 10:17:00 [facility] ALANINE AMINOTRANSFERASE 2021-11-25 Marciano Mayer [facility] 10:17:00 [facility] ASPARTATE AMINOTRANSFERASE 2021-11-25 Marciano Mayer [facility] 10:17:00 [facility] ALKALINE PHOSPHATASE 2021-11-25 Pablito Mayerroz [facility] 10:17:00 [facility] ABORH 2021-11-25 Severo Munroe [facility] 10:17:00 [facility] ANTIBODY SCREEN 2021-11-25 Severo Munroe [facility] 10:17:00 [facility] Results CBC 2021-11-25 Severo Munroe [facility] 10:17:00 [facility] MANUAL DIFFERENTIAL 2021-11-25 Severo Munroe [facility] 10:17:00 [facility] SERUM CREATININE 2021-11-25 Severo Munroe [facility] 10:17:00 [facility] .GLOMERULAR FILTRATION RATE 2021-11-25 Seveor Munroe [facility] 10:17:00 [facility] ANION GAP 2021-11-25 Severo Munroe [facility] 10:17:00 [facility] CLOT EXPIRATION DATE 2021-11-25 Severo Munroe [facility] 10:17:00 [facility] TMP INTERPRETATION ANTIBODY 2021-11-25 Severo Munroe [facility] SCREEN NEGATIVE 10:17:00 [facility] COMPLETE BLOOD COUNT W/ 2021-11-24 Marciano Mayer [facility] DIFFERENTIAL 09:43:00 [facility] SODIUM LEVEL 2021-11-24 [facility] 09:43:00 [facility] POTASSIUM LEVEL 2021-11-24 Leyla [facility] 09:43:00 [facility] CHLORIDE LEVEL 2021-11-24 Leyla [facility] 09:43:00 [facility] CARBON DIOXIDE LEVEL 2021-11-24 [facility] 09:43:00 [facility] BLOOD UREA NITROGEN 2021-11-24 Leyla [facility] 09:43:00 [facility] SERUM CREATININE 2021-11-24 Leyla [facility] exas 09:43:00 [facility] GLUCOSE, RANDOM 2021-11-24 [facility] 09:43:00 [facility] LACTATE DEHYDROGENASE 2021-11-24 [facility] 09:43:00 [facility] URIC ACID 2021-11-24 [facility] 09:43:00 [facility] PHOSPHORUS LEVEL 2021-11-24 [facility] 09:43:00 [facility] FRACTIONATED BILIRUBIN 2021-11-24 [facility] 09:43:00 [facility] ALBUMIN LEVEL 2021-11-24 [facility] 09:43:00 [facility] CALCIUM LEVEL TOTAL 2021-11-24 [facility] 09:43:00 [facility] MAGNESIUM LEVEL 2021-11-24 [facility] 09:43:00 [facility] ALANINE AMINOTRANSFERASE 2021-11-24 Pablito Mayerroz [facility] 09:43:00 [facility] ASPARTATE AMINOTRANSFERASE 2021-11-24 [facility] 09:43[facility]00 [facility] ALKALINE PHOSPHATASE 2021-11-24 [facility] 09:43:00 [facility] Results CBC 2021-11-24 Severo Munroe [facility] 09:43:00 [facility] MANUAL DIFFERENTIAL 2021-11-24 Severo Munroe [facility] 09:43:00 [facility] SERUM CREATININE 2021-11-24 Severo Munroe [facility] 09:43:00 [facility] .GLOMERULAR FILTRATION RATE 2021-11-24 Severo Munroe [facility] 09:43:00 [facility] ANION GAP 2021-11-24 Severo Munroe [place] [facility] [place] 09:43:00 [facility] IR US GUIDED DRAIN DEEP, 2021-11-23 Lucinda Antoine [facility] NON-ORGAN 60 19:22:00 [facility] ANAEROBIC CULTURE 2021-11-23 [facility] 18:44:00 [facility] AFB CULTURE W/ SMEAR 2021-11-23 [facility] 18:44:00 [facility] FUNGUS CULTURE W/ SMEAR 2021-11-23 [facility] 18:44:00 [facility] WOUND CULTURE W/ GRAM STAIN 2021-11-23 [facility] 18:44:00 [facility] XR SPINE CERVICAL 2 OR 3 VW 2021-11-23 Claudia Boyle [facility] 14:44:27 [facility] COMPLETE BLOOD COUNT W/ 2021-11-23 Pablito Mayerroz [facility] DIFFERENTIAL 10:04:00 [facility] SODIUM LEVEL 2021-11-23 [facility] 10:04:00 [facility] POTASSIUM LEVEL 2021-11-23 Leyla [facility] 10:04:00 [facility] CHLORIDE LEVEL 2021-11-23 Leyla [facility] 10:04:00 [facility] CARBON DIOXIDE LEVEL 2021-11-[address] [facility] 10:04:00 [facility] BLOOD UREA NITROGEN 2021-11-23 [facility] [place] 10:04:00 [facility] SERUM CREATININE 2021-11-23 [facility] 10:04:00 [facility] GLUCOSE, RANDOM 2021-11-23 Leyla [facility] 10:04:00 [facility] LACTATE DEHYDROGENASE 2021-11-23 [facility] 10:04:00 [facility] URIC ACID 2021-11-23 [facility] [place] 10:04:00 [facility] PHOSPHORUS LEVEL 2021-11-23 Leyla [facility] exas 10:04:00 [facility] FRACTIONATED BILIRUBIN 2021-11-23 [facility] 10:04:00 [facility] ALBUMIN LEVEL 2021-11-23 [facility] 10:04:00 [facility] CALCIUM LEVEL TOTAL 2021-11-23 [facility] [place] 10:04:00 [facility] MAGNESIUM LEVEL 2021-11-23 [facility] 10:04:00 [facility] ALANINE AMINOTRANSFERASE 2021-11-23 Leyla [facility] 10:04:00 [facility] ASPARTATE AMINOTRANSFERASE 2021-11-23 [facility] 10:04:00 [facility] ALKALINE PHOSPHATASE 2021-11-23 [facility] 10:04:00 [facility] Results CBC 2021-11-23 Severo Munroe [place] [facility] 10:04:00 [facility] MANUAL DIFFERENTIAL 2021-11-23 Severo Munroe [facility] 10:04:00 [facility] SERUM CREATININE 2021-11-23 Severo Munroe [facility] 10:04:00 [facility] .GLOMERULAR FILTRATION RATE 2021-11-23 Severo Munroe [facility] 10:04:00 [facility] PROTHROMBIN TIME 2021-11-23 [facility] 10:04:00 [facility] APTT 2021-11-23 [facility] exas 10:04:00 [facility] ANION GAP 2021-11-23 Severo Munroe [place] [facility] [place] 10:04:[address] [facility] [address] ABDOMEN PELVIS W CONTRAST 2021-11-[address] [facility] 11:54:00 [facility] COMPLETE BLOOD COUNT W/ 2021-11-22 Pablito Mayerroz [facility] DIFFERENTIAL 10:12:00 [facility] SODIUM LEVEL 2021-11-22 Leyla [facility] 10:12:00 [facility] POTASSIUM LEVEL 2021-11-22 Leyla [facility] 10:12:00 [facility] CHLORIDE LEVEL 2021-11-22 Leyla [facility] 10:12:00 [facility] CARBON DIOXIDE LEVEL 2021-11-[address] [facility] 10:12:00 [facility] BLOOD UREA NITROGEN 2021-11-22 Leyla [facility] 10:12:00 [facility] SERUM CREATININE 2021-11-22 Leyla [facility] exas 10:12:00 [facility] GLUCOSE, RANDOM 2021-11-22 Leyla [facility] 10:12:00 [facility] LACTATE DEHYDROGENASE 2021-11-[address] [facility] 10:12:00 [facility] URIC ACID 2021-11-22 Leyla [facility] 10:12:00 [facility] PHOSPHORUS LEVEL 2021-11-22 [facility] 10:12:00 [facility] FRACTIONATED BILIRUBIN 2021-11-22 Leyla [facility] 10:12:00 [facility] ALBUMIN LEVEL 2021-11-22 Leyla [facility] 10:12:00 [facility] CALCIUM LEVEL TOTAL 2021-11-22 Leyla [facility] 10:12:00 [facility] MAGNESIUM LEVEL 2021-11-22 [facility] 10:12:00 [facility] ALANINE AMINOTRANSFERASE 2021-11-22 Pablito Mayerroz [facility] 10:12:00 [facility] ASPARTATE AMINOTRANSFERASE 2021-11-22 Leyla, Kunhwa [facility] 10:12:00 [facility] ALKALINE PHOSPHATASE 2021-11-22 Pablito Mayerroz [facility] 10:12:00 [facility] TYPE AND SCREEN 2021-11-22 Marciano Mayer [facility] 10:12:00 [facility] ABORH 2021-11-22 Severo Munroe [facility] 10:12:00 [facility] ANTIBODY SCREEN 2021-11-22 Severo Munroe [facility] 10:12:00 [facility] Results CBC 2021-11-22 Severo Munroe [facility] 10:12:00 [facility] MANUAL DIFFERENTIAL 2021-11-22 Severo Munroe [facility] 10:12:00 [facility] SERUM CREATININE 2021-11-22 Severo Munroe [facility] 10:12:00 [facility] .GLOMERULAR FILTRATION RATE 2021-11-22 Severo Munroe [facility] 10:12:00 [facility] ANION GAP 2021-11-22 Severo Munroe [facility] 10:12:00 [facility] CLOT EXPIRATION DATE 2021-11-22 Severo Munroe [facility] 10:12:00 [facility] TMP INTERPRETATION ANTIBODY 2021-11-22 Severo Munroe [facility] SCREEN NEGATIVE 10:12:00 [facility] COVID-19 (SARS-COV-2) 2021-11-22 Severo Munroe [facility] ASYMPTOMATIC-LT 03:57:00 [facility] COMPLETE BLOOD COUNT W/ 2021-11-21 Darnell Quick [facility] DIFFERENTIAL 15:41:00 [facility] TOTAL PROTEIN 2021-11-21 Darnell Quick [facility] 15:41:00 [facility] ALBUMIN LEVEL 2021-11-21 Darnell Quick [facility] 15:41:00 [facility] CALCIUM LEVEL TOTAL 2021-11-21 Darnell Quick [facility] 15:41:00 [facility] PHOSPHORUS LEVEL 2021-11-21 Darnell Quick [facility] ex 15:41:00 [facility] GLUCOSE, RANDOM 2021-11-21 Darnell Quick [facility] 15:41:00 [facility] BLOOD UREA NITROGEN 2021-11-21 Darnell Quick [facility] 15:41:00 [facility] SERUM CREATININE 2021-11-21 Darnell Quick [facility] ex 15:41:00 [facility] URIC ACID 2021-11-21 Darnell Quick [facility] 15:41:00 [facility] FRACTIONATED BILIRUBIN 2021-11-21 Darnell Quick [facility] 15:41:00 [facility] ALKALINE PHOSPHATASE 2021-11-21 Darnell Quick [facility] 15:41:00 [facility] LACTATE DEHYDROGENASE 2021-11-21 Darnell Quick [facility] 15:41:00 [facility] ALANINE AMINOTRANSFERASE 2021-11-21 Darnell Quick [facility] 15:41:00 [facility] MAGNESIUM LEVEL 2021-11-21 Darnell Quick [facility] 15:41:00 [facility] ASPARTATE AMINOTRANSFERASE 2021-11-21 Darnell Quick [facility] 15:41:00 [facility] ELECTROLYTE PANEL 2021-11-21 Darnell Quick [facility] 15:41:00 [facility] TYPE AND SCREEN 2021-11-21 Darnell Quick [facility] 15:41:00 [facility] Results CBC 2021-11-21 Darnell Quick [facility] 15:41:00 [facility] MANUAL DIFFERENTIAL 2021-11-21 Darnell Quick [facility] 15:41:00 [facility] SERUM CREATININE 2021-11-21 Darnell Quick [facility] [place] ex 15:41:00 [facility] .GLOMERULAR FILTRATION RATE 2021-11-21 Darnell Quick [facility] 15:41:00 [facility] ABORH 2021-11-21 Darnell Quick [facility] 15:41:00 [facility] ANTIBODY SCREEN 2021-11-21 Darnell Quick [facility] 15:41:00 [facility] CLOT EXPIRATION DATE 2021-11-21 Darnell Quick [facility] 15:41:00 [facility] TMP INTERPRETATION ANTIBODY 2021-11-21 Darnell Quick [facility] SCREEN NEGATIVE 15:41:00 [facility] PROTHROMBIN TIME 2021-11-19 Valerie Dill [facility] 17:31:00 [facility] IR DIAGNOSTIC SINOGRAM 60 2021-11-19 Jacklyn Veronica [facility] 16:59:00 [facility] COMPLETE BLOOD COUNT W/ 2021-11-09 Madeline Campbell [facility] DIFFERENTIAL 07:25:00 [facility] SODIUM LEVEL 2021-11-09 Madeline Campbell [place] [facility] 07:25:00 [facility] POTASSIUM LEVEL 2021-11-09 Madeline Campbell [facility] 07:25:00 [facility] CHLORIDE LEVEL 2021-11-09 Madeline Campbell [facility] 07:25:00 [facility] CARBON DIOXIDE LEVEL 2021-11-09 Madeline Campbell [facility] 07:25:00 [facility] BLOOD UREA NITROGEN 2021-11-09 Madeline Campbell [facility] 07:25:00 [facility] SERUM CREATININE 2021-11-09 Madeline Campbell [facility] 07:25:00 [facility] GLUCOSE, RANDOM 2021-11-09 Madeline Campbell [place] [facility] [place] 07:25:00 [facility] LACTATE DEHYDROGENASE 2021-11-09 Madeline Campbell [facility] 07:25:00 [facility] URIC ACID 2021-11-09 Madeline Campbell [place] [facility] [place] 07:25:00 [facility] PHOSPHORUS LEVEL 2021-11-09 Madeline Campbell [facility] 07:25:00 [facility] FRACTIONATED BILIRUBIN 2021-11-09 Madeline Campbell [facility] 07:25:00 [facility] ALBUMIN LEVEL 2021-11-09 Madeline Campbell [place] [facility] [place] 07:25:00 [facility] CALCIUM LEVEL TOTAL 2021-11-09 Madeline Campbell [facility] 07:25:00 [facility] MAGNESIUM LEVEL 2021-11-09 Madeline Campbell [place] [facility] [place] 07:25:00 [facility] ALANINE AMINOTRANSFERASE 2021-11-09 Mad[facility] 07:25:00 [facility] ASPARTATE AMINOTRANSFERASE 2021-11-09 Madeline Campbell [facility] 07:25:00 [facility] ALKALINE PHOSPHATASE 2021-11-09 Madeline Campbell [facility] 07:25:00 [facility] C REACTIVE PROTEIN 2021-11-09 Madeline Campbell [facility] 07:25:00 [facility] Results CBC 2021-11-09 Natalia [facility] 07:25:00 [facility] MANUAL DIFFERENTIAL 2021-11-09 Natalia [facility] 07:25:00 [facility] SERUM CREATININE 2021-11-09 Natalia [facility] 07:25:00 [facility] .GLOMERULAR FILTRATION RATE 2021-11-09 Brett Fisher [facility] 07:25:00 [facility] ANION GAP 2021-11-09 Natalia [facility] 07:25:00 [facility] XR CHEST 2 VW 2021-11-09 Kary Phillips [facility] 03:44:09 A [facility] COMPLETE BLOOD COUNT W/ 2021-11-08 Madeline Campbell [facility] DIFFERENTIAL 06:33:00 [facility] SODIUM LEVEL 2021-11-08 Madeline Campbell [place] [facility] [place] 06:33:00 [facility] POTASSIUM LEVEL 2021-11-08 Madeline Campbell [place] [facility] [place] 06:33:00 [facility] CHLORIDE LEVEL 2021-11-08 Madeline Campbell [place] [facility] [place] 06:33:00 [facility] CARBON DIOXIDE LEVEL 2021-11-08 Madeline Campbell [facility] 06:33:00 [facility] BLOOD UREA NITROGEN 2021-11-08 Madeline Campbell [facility] 06:33:00 [facility] SERUM CREATININE 2021-11-08 Madeline Campbell [facility] 06:33:00 [facility] GLUCOSE, RANDOM 2021-11-08 Madeline Campbell [place] [facility] [place] 06:33:00 [facility] LACTATE DEHYDROGENASE 2021-11-08 Madeline Campbell [facility] 06:33:00 [facility] URIC ACID 2021-11-08 Madeline Campbell [place] [facility] [place] 06:33:00 [facility] PHOSPHORUS LEVEL 2021-11-08 Madeline Campbell [facility] 06:33:00 [facility] FRACTIONATED BILIRUBIN 2021-11-08 Madeline Campbell [facility] 06:33:00 [facility] ALBUMIN LEVEL 2021-11-08 Madeline Campbell [place] [facility] [place] 06:33:00 [facility] CALCIUM LEVEL TOTAL 2021-11-08 Madeline Campbell [facility] 06:33:00 [facility] MAGNESIUM LEVEL 2021-11-08 Madeline Campbell [place] [facility] [place] 06:33:00 [facility] ALANINE AMINOTRANSFERASE 2021-11-08 Madeline Campbell [facility] 06:33:00 [facility] ASPARTATE AMINOTRANSFERASE 2021-11-08 Madeline Campbell U nivSanpete [facility] 06:33:00 [facility] ALKALINE PHOSPHATASE 2021-11-08 Madeline Campbell [facility] 06:33:00 [facility] C REACTIVE PROTEIN 2021-11-08 Madeline Campbell [facility] 06:33:00 [facility] Results CBC 2021-11-08 Natalia [facility] 06:33:00 [facility] MANUAL DIFFERENTIAL 2021-11-08 Natalia [facility] 06:33:00 [facility] SERUM CREATININE 2021-11-08 Natalia [facility] 06:33:00 [facility] .GLOMERULAR FILTRATION RATE 2021-11-08 Brett Fisher [facility] 06:33:00 [facility] ANION GAP 2021-11-08 [facility] 06:33:00 [facility] COVID-19 (SARS-COV-2) 2021-11-07 Sony Song [facility] PCR-ASYMPTOMATIC MC 22:35:00 Luis Antonio Aragon [facility] COMPLETE BLOOD COUNT W/ 2021-11-07 Madeline Campbell [facility] DIFFERENTIAL 08:26:00 [facility] SODIUM LEVEL 2021-11-07 Madeline Campbell [place] [facility] [place] 08:26:00 [facility] POTASSIUM LEVEL 2021-11-07 Jorge Luis Campbellelle Margo [place] [facility] 08:26:00 [facility] CHLORIDE LEVEL 2021-11-07 [facility] [place] 08:26:00 [facility] CARBON DIOXIDE LEVEL 2021-11-07 Madeline Campbell [facility] 08:26:00 [facility] BLOOD UREA NITROGEN 2021-11-07 Madeline Campbell [facility] 08:26:00 [facility] SERUM CREATININE 2021-11-07 Madeline Campbell [facility] 08:26:00 [facility] GLUCOSE, RANDOM 2021-11-07 Madeline Campbell [place] [facility] [place] 08:26:00 [facility] LACTATE DEHYDROGENASE 2021-11-07 Madeline Campbell [facility] 08:26:00 [facility] URIC ACID 2021-11-07 Madeline Campbell [place] [facility] [place] 08:26:00 [facility] PHOSPHORUS LEVEL 2021-11-07 Madeline Campbell [facility] 08:26:00 [facility] FRACTIONATED BILIRUBIN 2021-11-07 Madeline Campbell [facility] 08:26:00 [facility] ALBUMIN LEVEL 2021-11-07 Jorge Luis Campbellelle Margo [place] [facility] [place] 08:26:00 [facility] CALCIUM LEVEL TOTAL 2021-11-07 Madeline Campbell [facility] 08:26:00 [facility] MAGNESIUM LEVEL 2021-11-07 Jorge Luis Campbellelle Margo [place] [facility] [place] 08:26:00 [facility] ALANINE AMINOTRANSFERASE 2021-11-07 Madeline [facility] 08:26[facility]00 [facility] ASPARTATE AMINOTRANSFERASE 2021-11-07 Madeline Campbell [facility] 08:26:00 [facility] ALKALINE PHOSPHATASE 2021-11-07 Madeline Campbell [facility] 08:26:00 [facility] TYPE AND SCREEN 2021-11-07 Jorge Luis Campbellelle Margo [place] [facility] [place] 08:26:00 [facility] C REACTIVE PROTEIN 2021-11-07 Madeline Campbell [facility] 08:26:00 [facility] [place] ABORH 2021-11-07 [facility] 08:26:00 [facility] ANTIBODY SCREEN 2021-11-07 Natalia [facility] 08:26:00 [facility] Results CBC 2021-11-07 Natalia [facility] 08:26:00 [facility] MANUAL DIFFERENTIAL 2021-11-07 Natalia [facility] 08:26:00 [facility] SERUM CREATININE 2021-11-07 Natalia [facility] 08:26:00 [facility] .GLOMERULAR FILTRATION RATE 2021-11-07 [facility] 08:26[facility]00 [facility] ANION GAP 2021-11-07 [facility] 08:[facility] TMP INTERPRETATION ANTIBODY 2021-11-07 Natalia [facility] S[facility] NEGATIVE 08:26:00 [facility] CLOT EXPIRATION DATE 2021-11-07 Natalia [facility] 08:26:[address] [facility] [address] ABDOMEN PELVIS W WO 2021-11-06 Mony [facility] CONTRAST 16:24:00 [facility] COMPLETE BLOOD COUNT W/ 2021-11-06 Madeline Campbell [facility] DIFFERENTIAL 08:22:00 [facility] SODIUM LEVEL 2021-11-06 Madeline Campbell [place] 08:22:00 [facility] POTASSIUM LEVEL 2021-11-06 Jorge Luis Campbellelle Margo [facility] 08:22:00 [facility] CHLORIDE LEVEL 2021-11-06 Jorge Luis Campbellelle Margo [facility] [place] 08:22:00 [facility] CARBON DIOXIDE LEVEL 2021-11-06 Madeline Campbell [facility] 08:22:00 [facility] BLOOD UREA NITROGEN 2021-11-06 Madeline Campbell [facility] 08:22:00 [facility] SERUM CREATININE 2021-11-06 Madeline Campbell [facility] 08:22:00 [facility] GLUCOSE, RANDOM 2021-11-06 Madeline Campbell [place] [facility] [place] 08:22:00 [facility] LACTATE DEHYDROGENASE 2021-11-06 Madeline Campbell [facility] 08:22:00 [facility] URIC ACID 2021-11-06 Madeline Campbell [place] [facility] [place] 08:22:00 [facility] PHOSPHORUS LEVEL 2021-11-06 Madeline Campbell [facility] 08:22:00 [facility] FRACTIONATED BILIRUBIN 2021-11-06 Madeline Campbell [facility] 08:22:00 [facility] ALBUMIN LEVEL 2021-11-06 Madeline Campbell [place] [facility] [place] 08:22:00 [facility] CALCIUM LEVEL TOTAL 2021-11-06 Madeline Campbell [facility] ty [facility] 08:22:00 [facility] MAGNESIUM LEVEL 2021-11-06 Madeline Campbell [place] [facility] [place] 08:22:00 [facility] ALANINE AMINOTRANSFERASE 2021-11-06 Madeline Campbell [facility] 08:22:00 [facility] ASPARTATE AMINOTRANSFERASE 2021-11-06 Madeline Campbell [facility] 08:22:00 [facility] ALKALINE PHOSPHATASE 2021-11-06 Madeline Campbell [facility] 08:22:00 [facility] C REACTIVE PROTEIN 2021-11-06 Madeline Campbell [facility] 08:22:00 [facility] Results CBC 2021-11-06 [facility] 08:22:00 [facility] MANUAL DIFFERENTIAL 2021-11-06 [facility] 08:22:00 [facility] SERUM CREATININE 2021-11-06 [facility] 08:22:00 [facility] .GLOMERULAR FILTRATION RATE 2021-11-06 Brett Fisher [facility] 08:22:00 [facility] ANION GAP 2021-11-06 [facility] 08:22:00 [facility] COMPLETE BLOOD COUNT W/ 2021-11-05 Madeline Campbell [facility] DIFFERENTIAL 08:18:00 [facility] SODIUM LEVEL 2021-11-05 Jorge Luis Campbellelle Margo [place] [facility] [place] 08:18:00 [facility] POTASSIUM LEVEL 2021-11-05 Madeline Campbell [place] [facility] [place] 08:18:00 [facility] CHLORIDE LEVEL 2021-11-05 Madeline Campbell [place] [facility] [place] 08:18:00 [facility] CARBON DIOXIDE LEVEL 2021-11-05 Madeline Campbell [facility] [place] [facility] 08:18:00 [facility] BLOOD UREA NITROGEN 2021-11-05 Madeline Campbell [facility] ty [facility] 08:18:00 [facility] SERUM CREATININE 2021-11-05 Madeline Campbell [facility] 08:18:00 [facility] GLUCOSE, RANDOM 2021-11-05 Jorge Luis Campbellelle Margo [place] [facility] [place] 08:18:00 [facility] LACTATE DEHYDROGENASE 2021-11-05 Madeline Campbell [facility] 08:18:00 [facility] URIC ACID 2021-11-05 Madeline Campbell [place] [facility] [place] 08:18:00 [facility] PHOSPHORUS LEVEL 2021-11-05 Madeline Campbell [facility] 08:18:00 [facility] FRACTIONATED BILIRUBIN 2021-11-05 Madeline Campbell [facility] 08:18:00 [facility] ALBUMIN LEVEL 2021-11-05 Madeline Campbell [place] [facility] [place] 08:18:00 [facility] CALCIUM LEVEL TOTAL 2021-11-05 Madeline Campbell [facility] 08:18:00 [facility] MAGNESIUM LEVEL 2021-11-05 Madeline Campbell [place] [facility] [place] 08:18:00 [facility] ALANINE AMINOTRANSFERASE 2021-11-05 Madeline Campbell [facility] 08:18:00 [facility] ASPARTATE AMINOTRANSFERASE 2021-11-05 Madeline Campbell [facility] 08:18:00 [facility] ALKALINE PHOSPHATASE 2021-11-05 Madeline Campbell [facility] 08:18:00 [facility] C REACTIVE PROTEIN 2021-11-05 Madeline Campbell [facility] [place] [facility] 08:18:00 [facility] Results CBC 2021-11-05 [facility] 08:18:00 [facility] MANUAL DIFFERENTIAL 2021-11-05 Natalia [facility] 08:18:00 [facility] SERUM CREATININE 2021-11-05 Natalia [facility] 08:18:00 [facility] .GLOMERULAR FILTRATION RATE 2021-11-05 Brett Fisher Un [facility] 08:18:00 [facility] ANION GAP 2021-11-05 [facility] 08:18:00 [facility] COMPLETE BLOOD COUNT W/ 2021-11-04 Madeline Campbell [facility] DIFFERENTIAL 08:54:00 [facility] SODIUM LEVEL 2021-11-04 Madeline Campbell [place] [facility] [place] 08:54:00 [facility] POTASSIUM LEVEL 2021-11-04 Jorge Luis Campbellelle Margo [place] [facility] [place] 08:54:00 [facility] CHLORIDE LEVEL 2021-11-04 [facility]annanJorge [facility] [place] 08:54:00 [facility] CARBON DIOXIDE LEVEL 2021-11-04 Madeline Campbell [facility] 08:54:00 [facility] BLOOD UREA NITROGEN 2021-11-04 Madeline Campbell [facility] 08:54:00 [facility] SERUM CREATININE 2021-11-04 Madeline Campbell [facility] 08:54:00 [facility] GLUCOSE, RANDOM 2021-11-04 Madeline Campbell [place] [facility] [place] 08:54:00 [facility] LACTATE DEHYDROGENASE 2021-11-04 Madeline Campbell [facility] 08:54:00 [facility] URIC ACID 2021-11-04 Madeline Campbell [place] [facility] [place] 08:54:00 [facility] PHOSPHORUS LEVEL 2021-11-04 Madeline Campbell [facility] 08:54:00 [facility] FRACTIONATED BILIRUBIN 2021-11-04 Madeline Campbell [facility] 08:54:00 [facility] ALBUMIN LEVEL 2021-11-04 Jorge Luis Campbellelle Margo [place] [facility] [place] 08:54:00 [facility] CALCIUM LEVEL TOTAL 2021-11-04 Madeline Campblel [facility] 08:54:00 [facility] MAGNESIUM LEVEL 2021-11-04 Jorge Luis Campbellelle Margo [place] [facility] [place] 08:54:00 [facility] ALANINE AMINOTRANSFERASE 2021-11-04 Madeline Campbell [facility] 08:54:00 [facility] ASPARTATE AMINOTRANSFERASE 2021-11-04 Madeline Campbell [facility] 08:54:00 [facility] ALKALINE PHOSPHATASE 2021-11-04 Madeline Campbell [facility] 08:54:00 [facility] TYPE AND SCREEN 2021-11-04 Madeline Campbell [place] [facility] [place] 08:54:00 [facility] C REACTIVE PROTEIN 2021-11-04 Madeline Campbell [facility] 08:54:00 [facility] ABORH 2021-11-04 [facility] 08:54:00 [facility] ANTIBODY SCREEN 2021-11-04 [facility] 08:54:00 [facility] Results CBC 2021-11-04 Natalia [facility] 08:54:00 [facility] MANUAL DIFFERENTIAL 2021-11-04 Natalia [facility] 08:54:00 [facility] SERUM CREATININE 2021-11-04 [facility] 08:54:00 [facility] .GLOMERULAR FILTRATION RATE 2021-11-04 Brett Fisher [facility] 08:54:00 [facility] ANION GAP 2021-11-04 Natalia [facility] 08:54:00 [facility] CLOT EXPIRATION DATE 2021-11-04 [facility] 08:54:00 [facility] TMP INTERPRETATION ANTIBODY 2021-11-04 Natalia Brett [facility] NEGATIVE 08:54:00 [facility] COMPLETE BLOOD COUNT W/ 2021-11-03 Madeline Campbell [facility] DIFFERENTIAL 09:11:00 [facility] SODIUM LEVEL 2021-11-03 Madeline Campbell [place] [facility] [place] 09:11:00 [facility] POTASSIUM LEVEL 2021-11-03 Madeline Campbell [place] [facility] [place] 09:11:00 [facility] CHLORIDE LEVEL 2021-11-03 Jorge Luis Campbellelle Margo [place] [facility] [place] 09:11:00 [facility] CARBON DIOXIDE LEVEL 2021-11-03 Madeline Campbell [facility] 09:11:00 [facility] BLOOD UREA NITROGEN 2021-11-03 Madeline Campbell [facility] 09:11:00 [facility] SERUM CREATININE 2021-11-03 Madeline Campbell [facility] 09:11:00 [facility] GLUCOSE, RANDOM 2021-11-03 Madeline Campbell [place] [facility] [place] 09:11:00 [facility] LACTATE DEHYDROGENASE 2021-11-03 Madeline Campbell [facility] 09:11:00 [facility] URIC ACID 2021-11-03 Madeline Campbell [place] [facility] [place] 09:11:00 [facility] PHOSPHORUS LEVEL 2021-11-03 Madeline Campbell [facility] 09:11:00 [facility] FRACTIONATED BILIRUBIN 2021-11-03 Madeline Campbell [facility] 09:11:00 [facility] ALBUMIN LEVEL 2021-11-03 Madeline Campbell [place] [facility] [place] 09:11:00 [facility] CALCIUM LEVEL TOTAL 2021-11-03 Madeline Campbell [facility] 09:11:00 [facility] MAGNESIUM LEVEL 2021-11-03 Madeline Campbell [place] [facility] [place] 09:11:00 [facility] ALANINE AMINOTRANSFERASE 2021-11-03 Madeline Campbell [facility] 09:11:00 [facility] ASPARTATE AMINOTRANSFERASE 2021-11-03 Madeline Campbell [facility] 09:11:00 [facility] ALKALINE PHOSPHATASE 2021-11-03 Madeline Campbell [facility] 09:11:00 [facility] C REACTIVE PROTEIN 2021-11-03 Madeline Campbell [facility] 09:11:00 [facility] Results CBC 2021-11-03 [facility] 09:11:00 [facility] MANUAL DIFFERENTIAL 2021-11-03 [facility] 09:11:00 [facility] SERUM CREATININE 2021-11-03 [facility] 09:11:00 [facility] .GLOMERULAR FILTRATION RATE 2021-11-03 Brett Fisher [facility] 09:11:00 [facility] ANION GAP 2021-11-03 [facility] 09:11:00 [facility] COMPLETE BLOOD COUNT W/ 2021-11-02 Madeline Campbell [facility] DIFFERENTIAL 08:12:00 [facility] SODIUM LEVEL 2021-11-02 Madeline Campbell [place] [facility] 08:12:00 [facility] POTASSIUM LEVEL 2021-11-02 Madeline Campbell [place] [facility] [place] 08:12:00 [facility] CHLORIDE LEVEL 2021-11-02 Jorge Luis Campbellelle Margo [place] [facility] 08:12:00 [facility] CARBON DIOXIDE LEVEL 2021-11-02 Madeline Campbell [facility] 08:12:00 [facility] BLOOD UREA NITROGEN 2021-11-02 Madeline Campbell [facility] 08:12:00 [facility] SERUM CREATININE 2021-11-02 Madeline Campbell [facility] 08:12:00 [facility] GLUCOSE, RANDOM 2021-11-02 Madeline Campbell [place] [facility] [place] 08:12:00 [facility] LACTATE DEHYDROGENASE 2021-11-02 Madeline Campbell [facility] 08:12:00 [facility] URIC ACID 2021-11-02 Madeline Campbell [place] [facility] [place] 08:12:00 [facility] PHOSPHORUS LEVEL 2021-11-02 Madeline Campbell [facility] 08:12:00 [facility] FRACTIONATED BILIRUBIN 2021-11-02 Madeline Campbell [facility] 08:12:00 [facility] ALBUMIN LEVEL 2021-11-02 Jorge Luis Campbellelle Margo [place] [facility] [place] 08:12:00 [facility] CALCIUM LEVEL TOTAL 2021-11-02 Madeline Campbell [facility] 08:12:00 [facility] MAGNESIUM LEVEL 2021-11-02 Jorge Luis Campbellelle Margo [place] [facility] [place] 08:12:00 [facility] ALANINE AMINOTRANSFERASE 2021-11-02 Madeline Campbell [facility] 08:12:00 [facility] ASPARTATE AMINOTRANSFERASE 2021-11-02 Madeline Campbell [facility] 08:12:00 [facility] ALKALINE PHOSPHATASE 2021-11-02 Madeline Campbell [facility] 08:12:00 [facility] C REACTIVE PROTEIN 2021-11-02 Madeline Campbell [facility] 08:12:00 [facility] Results CBC 2021-11-02 [facility] 08:12:00 [facility] MANUAL DIFFERENTIAL 2021-11-02 [facility] [place] 08:12:00 [facility] SERUM CREATININE 2021-11-02 [facility] .GLOMERULAR FILTRATION RATE 2021-11-02 [facility] 08:12[facility]00 [facility] ANION GAP 2021-11-02 [facility] 08:12:00 [facility] SURGICAL LAPAROSCOPY WITH 2021-11-01 Brett Fisher [facility] COLOSTOMY 19:59:00 [facility] COMPLETE BLOOD COUNT W/ 2021-11-01 Madeline Campbell [facility] DIFFERENTIAL 09:42:00 [facility] SODIUM LEVEL 2021-11-01 Madeline Campbell [place] [facility] [place] 09:42:00 [facility] POTASSIUM LEVEL 2021-11-01 Jorge Luis Campbellelle Margo [place] [facility] [place] 09:42:00 [facility] CHLORIDE LEVEL 2021-11-01 ShannanJorge Luis wilsonelle Margo [place] [facility] [place] 09:42:00 [facility] CARBON DIOXIDE LEVEL 2021-11-01 Madeline Campbell [facility] 09:42:00 [facility] BLOOD UREA NITROGEN 2021-11-01 Madeline Campbell [facility] 09:42:00 [facility] SERUM CREATININE 2021-11-01 Madeline Campbell [facility] 09:42:00 [facility] GLUCOSE, RANDOM 2021-11-01 Madeline Campbell [place] [facility] [place] 09:42:00 [facility] LACTATE DEHYDROGENASE 2021-11-01 Madeline Campbell [facility] 09:42:00 [facility] URIC ACID 2021-11-01 Madeline Campbell [place] [facility] [place] 09:42:00 [facility] PHOSPHORUS LEVEL 2021-11-01 Madeline Campbell [facility] 09:42:00 [facility] FRACTIONATED BILIRUBIN 2021-11-01 Madeline Campbell [facility] 09:42:00 [facility] ALBUMIN LEVEL 2021-11-01 Madeline Campbell [place] [facility] [place] 09:42:00 [facility] CALCIUM LEVEL TOTAL 2021-11-01 Madeline Campbell [facility] 09:42:00 [facility] MAGNESIUM LEVEL 2021-11-01 Madeline Campbell [place] [facility] [place] 09:42:00 [facility] ALANINE AMINOTRANSFERASE 2021-11-01 [facility] [place] 09:42:00 [facility] ASPARTATE AMINOTRANSFERASE 2021-11-01 Mad[facility] [place] 09:42:00 [facility] ALKALINE PHOSPHATASE 2021-11-01 Madeline Campbell [facility] [place] [facility] 09:42:00 [facility] TYPE AND SCREEN 2021-11-01 Madeline Campbell [place] [facility] [place] 09:42:00 [facility] C REACTIVE PROTEIN 2021-11-01 HenriettaMadeline wilson [facility] 09:42:00 [facility] ABORH 2021-11-01 [facility] 09:42:00 [facility] ANTIBODY SCREEN 2021-11-01 [facility] 09:42:00 [facility] Results CBC 2021-11-01 [facility] 09:42:00 [facility] MANUAL DIFFERENTIAL 2021-11-01 [facility] [place] 09:42:00 [facility] SERUM CREATININE 2021-11-01 [facility] 09:42:00 [facility] .GLOMERULAR FILTRATION RATE 2021-11-01 [facility] 09:42:00 [facility] ANION GAP 2021-11-01 [facility] 09:42:00 [facility] CLOT EXPIRATION DATE 2021-11-01 [facility] 09:42:00 [facility] TMP INTERPRETATION ANTIBODY 2021-11-01 [facility] SCREEN NEGATIVE 09:42:00 [facility] IMMUNOGLOBULIN G SERUM 2021-10-31 Darnell Quick [facility] 15:57:00 [facility] COMPLETE BLOOD COUNT W/ 2021-10-31 Madeline Campbell [facility] DIFFERENTIAL 10:31:00 [facility] SODIUM LEVEL 2021-10-31 Madeline Campbell [place] [facility] [place] 10:31:00 [facility] POTASSIUM LEVEL 2021-10-31 HenriettaMadeline wilson [place] [facility] [place] 10:31:00 [facility] CHLORIDE LEVEL 2021-10-31 Madeline Campbell [place] [facility] [place] 10:31:00 [facility] CARBON DIOXIDE LEVEL 2021-10-31 Madeline Campbell [facility] 10:31:00 [facility] BLOOD UREA NITROGEN 2021-10-31 Madeline Campbell [facility] 10:31:00 [facility] SERUM CREATININE 2021-10-31 Madeline Campbell [facility] 10:31:00 [facility] GLUCOSE, RANDOM 2021-10-31 Madeline Campbell [place] [facility] [place] 10:31:00 [facility] LACTATE DEHYDROGENASE 2021-10-31 Madeline Campbell [facility] 10:31:00 [facility] URIC ACID 2021-10-31 Madeline Campbell [place] [facility] [place] 10:31:00 [facility] PHOSPHORUS LEVEL 2021-10-31 Madeline Campbell [facility] 10:31:00 [facility] FRACTIONATED BILIRUBIN 2021-10-31 [facility] [facility] 10:31:00 [facility] ALBUMIN LEVEL 2021-10-31 Madeline Campbell [place] [facility] [place] 10:31:00 [facility] CALCIUM LEVEL TOTAL 2021-10-31 Madeline Campbell [facility] 10:31:00 [facility] Center MAGNESIUM LEVEL 2021-10-31 Madeline Campbell [place] [facility] [place] 10:31:00 [facility] ALANINE AMINOTRANSFERASE 2021-10-31 [facility] 10:31[facility]00 [facility] ASPARTATE AMINOTRANSFERASE 2021-10-31 Madeline [facility] 10:31:00 [facility] ALKALINE PHOSPHATASE 2021-10-31 Madeline Campbell [facility] 10:31:00 [facility] C REACTIVE PROTEIN 2021-10-31 HenriettaMadeline wilson [facility] 10:31:00 [facility] Results CBC 2021-10-31 [facility] [place] 10:31:00 [facility] MANUAL DIFFERENTIAL 2021-10-31 [facility] [place] 10:31:00 [facility] SERUM CREATININE 2021-10-31 [facility] [place] .GLOMERULAR FILTRATION RATE 2021-10-31 [facility] 10:[facility]00 [facility] ANION GAP 2021-10-31 [facility] [place] 10:31:00 [facility] GENERAL LABORATORY ADD ON 2021-10-30 Nikki Martinez [facility] TEST 16:35:00 [facility] URINALYSIS MICROSCOPIC 2021-10-30 Darnell Quick [facility] 16:19:00 [facility] URINALYSIS WITH MICROSCOPIC 2021-10-30 Darnell Quick [facility] IF INDICATED 16:19:00 [facility] URINE CULTURE 2021-10-30 Darnell Quick [facility] 16:19:00 [facility] COMPLETE BLOOD COUNT W/ 2021-10-30 Madeline Campbell [facility] DIFFERENTIAL 09:15:00 [facility] SODIUM LEVEL 2021-10-30 Madeline Campbell [place] [facility] 09:15:00 [facility] POTASSIUM LEVEL 2021-10-30 ShannanMadeline wilson [place] 09:15:00 [facility] CHLORIDE LEVEL 2021-10-30 ShannanJorge Luis wilsonelle Margo [place] [facility] [place] 09:15:00 [facility] CARBON DIOXIDE LEVEL 2021-10-30 Madeline Campbell [facility] 09:15:00 [facility] BLOOD UREA NITROGEN 2021-10-30 Madeline Campbell [facility] 09:15:00 [facility] SERUM CREATININE 2021-10-30 Madeline Campbell [facility] 09:15:00 [facility] GLUCOSE, RANDOM 2021-10-30 Jorge Luis Campbellelle Margo [place] [facility] [place] 09:15:00 [facility] LACTATE DEHYDROGENASE 2021-10-30 Madeline Campbell [facility] 09:15:00 [facility] URIC ACID 2021-10-30 Madeline Campbell [place] [facility] [place] 09:15:00 [facility] PHOSPHORUS LEVEL 2021-10-30 Madeline Campbell [facility] 09:15:00 [facility] FRACTIONATED BILIRUBIN 2021-10-30 Madeline Campbell [facility] 09:15:00 [facility] ALBUMIN LEVEL 2021-10-30 Jorge Luis Campbellelle Margo [place] [facility] [place] 09:15:00 [facility] CALCIUM LEVEL TOTAL 2021-10-30 Madeline Campbell [facility] 09:15:00 [facility] MAGNESIUM LEVEL 2021-10-30 Jorge Luis Campbellelle Margo [place] [facility] [place] 09:15:00 [facility] ALANINE AMINOTRANSFERASE 2021-10-30 [facility] 09:15:00 [facility] ASPARTATE AMINOTRANSFERASE 2021-10-30 Madeline Campbell U niversity [facility] 09:15:00 [facility] ALKALINE PHOSPHATASE 2021-10-30 Madeline Campbell [facility] 09:15:00 [facility] Results CBC 2021-10-30 [facility] [place] 09:15:00 [facility] MANUAL DIFFERENTIAL 2021-10-30 [facility] [place] 09:15:00 [facility] SERUM CREATININE 2021-10-30 [facility] [place] 09:15:00 [facility] .GLOMERULAR FILTRATION RATE 2021-10-30 Atiya Smallwood [facility] [place] 09:15:00 [facility] ANION GAP 2021-10-30 [facility] 09:15[facility]00 [facility] C REACTIVE PROTEIN 2021-10-30 Atiya Smallwood [facility] 09:15:00 [facility] COVID-19 (SARS-COV-2) 2021-10-29 Yodit Colunga [facility] PCR-ASYMPTOMATIC MC 12:53:00 [facility] COMPLETE BLOOD COUNT W/ 2021-10-29 Madeline Campbell [facility] DIFFERENTIAL 10:30:00 [facility] SODIUM LEVEL 2021-10-29 Madeline Campbell [place] [facility] [place] 10:30:00 [facility] POTASSIUM LEVEL 2021-10-29 Madeline Campbell [place] [facility] [place] 10:30:00 [facility] CHLORIDE LEVEL 2021-10-29 Madeline Campbell [place] [facility] [place] 10:30:00 [facility] CARBON DIOXIDE LEVEL 2021-10-29 Madeline Campbell [facility] 10:30:00 [facility] BLOOD UREA NITROGEN 2021-10-29 Madeline Campbell [facility] 10:30:00 [facility] SERUM CREATININE 2021-10-29 Madeline Campbell [facility] 10:30:00 [facility] GLUCOSE, RANDOM 2021-10-29 Madeline Campbell [place] [facility] [place] 10:30:00 [facility] LACTATE DEHYDROGENASE 2021-10-29 Madeline Campbell [facility] 10:30:00 [facility] URIC ACID 2021-10-29 Madeline Campbell [place] [facility] [place] 10:30:00 [facility] PHOSPHORUS LEVEL 2021-10-29 Madeline Campbell [facility] 10:30:00 [facility] FRACTIONATED BILIRUBIN 2021-10-29 Madeline Campbell [facility] 10:30:00 [facility] ALBUMIN LEVEL 2021-10-29 Madeline Campbell [place] [facility] [place] 10:30:00 [facility] CALCIUM LEVEL TOTAL 2021-10-29 Madeline Campbell [facility] 10:30:00 [facility] MAGNESIUM LEVEL 2021-10-29 Madeline Campbell [place] [facility] [place] 10:30:00 [facility] ALANINE AMINOTRANSFERASE 2021-10-29 Madeline Campbell Uni versity [facility] 10:30:00 [facility] ASPARTATE AMINOTRANSFERASE 2021-10-29 Madeline Campbell U niversity [facility] 10:30:00 [facility] ALKALINE PHOSPHATASE 2021-10-29 Mad[facility] 10:30[facility]00 [facility] TYPE AND SCREEN 2021-10-29 Madeline Campbell [place] [facility] [place] 10:30:00 [facility] ABORH 2021-10-29 [facility] 10:30:00 [facility] ANTIBODY SCREEN 2021-10-29 [facility] 10:30:00 [facility] Results CBC 2021-10-29 [facility] 10:30:00 [facility] MANUAL DIFFERENTIAL 2021-10-29 [facility] [place] 10[facility]30:00 [facility] SERUM CREATININE 2021-10-29 [facility] 10:30:00 [facility] .GLOMERULAR FILTRATION RATE 2021-10-29 [facility] 10:30:00 [facility] ANION GAP 2021-10-29 [facility] [place] 10:30:00 [facility] TMP INTERPRETATION ANTIBODY 2021-10-29 [facility] SCREEN NEGATIVE 10:30:00 [facility] CLOT EXPIRATION DATE 2021-10-29 [facility] 10:30:00 [facility] BASIC METABOLIC PANEL, 2021-10-28 Chrissy San [facility] CALCIUM TOTAL 15:56:00 [facility] GLUCOSE LEVEL 2021-10-28 Chrissy San [facility] 15:56:00 [facility] ELECTROLYTE PANEL 2021-10-28 Chrissy San [facility] 15:56:00 [facility] SERUM CREATININE 2021-10-28 Chrissy San [facility] 15:56:00 [facility] .GLOMERULAR FILTRATION RATE 2021-10-[address] [facility] 15:56:00 [facility] CALCIUM LEVEL TOTAL 2021-10-28 Chrissy San [facility] 15:56:00 [facility] BLOOD UREA NITROGEN 2021-10-28 Chrissy San [facility] 15:56:00 [facility] COMPLETE BLOOD COUNT W/ 2021-10-28 Madeline Campbell [facility] DIFFERENTIAL 10:48:00 [facility] SODIUM LEVEL 2021-10-28 Madeline Campbell [facility] 10:48:00 [facility] POTASSIUM LEVEL 2021-10-28 Jorge Luis Campbellelle Margo [facility] 10:48:00 [facility] CHLORIDE LEVEL 2021-10-28 HenriettaJorge [facility] 10:48:00 [facility] CARBON DIOXIDE LEVEL 2021-10-28 Madeline Campbell [facility] 10:48:00 [facility] BLOOD UREA NITROGEN 2021-10-28 Madeline Campbell [facility] 10:48:00 [facility] SERUM CREATININE 2021-10-28 Madeline Campbell [facility] 10:48:00 [facility] GLUCOSE, RANDOM 2021-10-28 Jorge Luis Campbellelle Margo [facility] 10:48:00 [facility] LACTATE DEHYDROGENASE 2021-10-28 Madeline Campbell [facility] 10:48:00 [facility] URIC ACID 2021-10-28 Madeline Campbell [facility] 10:48:00 [facility] PHOSPHORUS LEVEL 2021-10-28 Madeline Campbell [facility] 10:48:00 [facility] FRACTIONATED BILIRUBIN 2021-10-28 Madeline Campbell [facility] 10:48:00 [facility] ALBUMIN LEVEL 2021-10-28 Madeline Campbell [place] [facility] [place] 10:48:00 [facility] CALCIUM LEVEL TOTAL 2021-10-28 Madeline Campbell [facility] 10:48:00 [facility] MAGNESIUM LEVEL 2021-10-28 HenriettaJorge Luis wilsonelle Margo [place] [facility] [place] 10:48:00 [facility] ALANINE AMINOTRANSFERASE 2021-10-28 Madeline [facility] 10:48:00 [facility] ASPARTATE AMINOTRANSFERASE 2021-10-28 [facility] 10:48:00 [facility] ALKALINE PHOSPHATASE 2021-10-28 Madeline Campbell [facility] 10:48:00 [facility] Results CBC 2021-10-28 [facility] 10:48:00 [facility] MANUAL DIFFERENTIAL 2021-10-28 [facility] 10:48:00 [facility] SERUM CREATININE 2021-10-28 [facility] [place] 10:48[facility]00 [facility] .GLOMERULAR FILTRATION RATE 2021-10-28 [facility] 10:48:00 [facility] ANION GAP 2021-10-28 [facility] 10:48:00 [facility] COMPLETE BLOOD COUNT W/ 2021-10-27 Madeline Campbell [facility] DIFFERENTIAL 06:43:00 [facility] SODIUM LEVEL 2021-10-27 ShannanJorge Luis wilsonelle Margo [place] [facility] [place] 06:43:00 [facility] POTASSIUM LEVEL 2021-10-27 HenriettaJorge Luis wilsonelle Margo [place] [facility] [place] 06:43:00 [facility] CHLORIDE LEVEL 2021-10-27 ShannanJorge Luis wilsonelle Margo [place] [facility] [place] 06:43:00 [facility] CARBON DIOXIDE LEVEL 2021-10-27 Madeline Campbell [facility] 06:43:00 [facility] BLOOD UREA NITROGEN 2021-10-27 Madeline Campbell [facility] 06:43:00 [facility] SERUM CREATININE 2021-10-27 Madeline Campbell [facility] 06:43:00 [facility] GLUCOSE, RANDOM 2021-10-27 Madeline Campbell [place] [facility] [place] 06:43:00 [facility] LACTATE DEHYDROGENASE 2021-10-27 Madeline Campbell [facility] 06:43:00 [facility] URIC ACID 2021-10-27 Madeline Campbell [place] [facility] [place] 06:43:00 [facility] PHOSPHORUS LEVEL 2021-10-27 Madeline Campbell [facility] 06:43:00 [facility] FRACTIONATED BILIRUBIN 2021-10-27 Madeline Campbell [facility] 06:43:00 [facility] ALBUMIN LEVEL 2021-10-27 Madeline Campbell [place] [facility] [place] 06:43:00 [facility] CALCIUM LEVEL TOTAL 2021-10-27 Madeline Campbell [facility] 06:43:00 [facility] MAGNESIUM LEVEL 2021-10-27 Jorge Luis Campbellelle Margo [place] [facility] [place] 06:43:00 [facility] ALANINE AMINOTRANSFERASE 2021-10-27 Madeline [facility] 06:43:00 [facility] ASPARTATE AMINOTRANSFERASE 2021-10-27 Madeline Campbell [facility] 06:43:00 [facility] ALKALINE PHOSPHATASE 2021-10-27 Madeline Campbell [facility] 06:43:00 [facility] Results CBC 2021-10-27 [facility] [place] 06:43:00 [facility] MANUAL DIFFERENTIAL 2021-10-27 [facility] [place] 06:43:00 [facility] SERUM CREATININE 2021-10-27 [facility] [place] 06:43:00 [facility] .GLOMERULAR FILTRATION RATE 2021-10-27 [facility] 06:43:00 [facility] ANION GAP 2021-10-27 Cl [facility] [place] 06:43:00 [facility] BODY FLUID CRYSTALS 2021-10-26 Jabari Nelson [facility] 23:48:00 [facility] CELL COUNT BODY FLUID 2021-10-26 Jabari Nelson [facility] 23:48:00 [facility] BODY FLUID CULTURE 2021-10-26 Jabari Nelson [facility] 23:48:00 [facility] BODY FLUID CRYSTALS W/ PATH 2021-10-26 Jabari Nelson [facility] RE[facility] 23:48:00 [facility] BODY FLUID CRYSTALS PATH 2021-10-26 Jabari Nelson [facility] RE[facility] 23:48:00 [facility] FUNGUS CULTURE W/ SMEAR 2021-10-26 Jabari Nelson [facility] 23:48:00 [facility] XR KNEE 1 OR 2 VIEWS 2021-10-26 [facility] PORTABLE BILATER[facility] 21:54:33 [facility] COMPLETE BLOOD COUNT W/ 2021-10-26 Madeline Campbell [facility] DIFFERENTIAL 09:35:00 [facility] SODIUM LEVEL 2021-10-26 ShannanMadeline wilson [place] [facility] 09:35:00 [facility] POTASSIUM LEVEL 2021-10-26 [facility]Jorge [facility] 09:35:00 [facility] CHLORIDE LEVEL 2021-10-26 [facility] 09:35:00 [facility] CARBON DIOXIDE LEVEL 2021-10-26 Madeline Campbell [facility] 09:35:00 [facility] BLOOD UREA NITROGEN 2021-10-26 Madeline Campbell [facility] 09:35:00 [facility] SERUM CREATININE 2021-10-26 Madeline Campbell [facility] 09:35:00 [facility] GLUCOSE, RANDOM 2021-10-26 Madeline Campbell [place] [facility] [place] 09:35:00 [facility] LACTATE DEHYDROGENASE 2021-10-26 Madeline Campbell [facility] 09:35:00 [facility] URIC ACID 2021-10-26 Madeline Campbell [place] [facility] [place] 09:35:00 [facility] PHOSPHORUS LEVEL 2021-10-26 Madeline Campbell [facility] 09:35:00 [facility] FRACTIONATED BILIRUBIN 2021-10-26 Madeline Campbell [facility] 09:35:00 [facility] ALBUMIN LEVEL 2021-10-26 Jorge Luis Campbellelle Margo [place] [facility] [place] 09:35:00 [facility] CALCIUM LEVEL TOTAL 2021-10-26 Madeline Campbell [facility] 09:35:00 [facility] MAGNESIUM LEVEL 2021-10-26 Jorge Luis Campbellelle Margo [place] [facility] [place] 09:35:00 [facility] ALANINE AMINOTRANSFERASE 2021-10-26 Mad[facility] 09:35:00 [facility] ASPARTATE AMINOTRANSFERASE 2021-10-26 Madeline Campbell [facility] 09:35:00 [facility] ALKALINE PHOSPHATASE 2021-10-26 Madeline Campbell [facility] 09:35:00 [facility] TYPE AND SCREEN 2021-10-26 Madeline Campbell [place] [facility] [place] 09:35:00 [facility] [place] ABORH 2021-10-26 [facility] [place] 09:35:00 [facility] ANTIBODY SCREEN 2021-10-26 Cl [facility] [place] 09:35:00 [facility] [place] Results CBC 2021-10-26 Cl [facility] [place] 09:35:00 [facility] MANUAL DIFFERENTIAL 2021-10-26 [facility] [place] 09:35:00 [facility] SERUM CREATININE 2021-10-26 [facility] 09:35:00 [facility] .GLOMERULAR FILTRATION RATE 2021-10-26 [facility] 09:35:00 [facility] ANION GAP 2021-10-26 [facility] 09:[facility] TMP INTERPRETATION ANTIBODY 2021-10-26 [facility] SCREEN NEGATIVE 09:35:00 [facility] CLOT EXPIRATION DATE 2021-10-26 [facility] 09[facility]35:00 [facility] COMPLETE BLOOD COUNT W/ 2021-10-25 Madeline Campbell [facility] DIFFERENTIAL 11:15:00 [facility] SODIUM LEVEL 2021-10-25 ShannanJorge Luis wilsonelle Margo [place] [facility] [place] 11:15:00 [facility] POTASSIUM LEVEL 2021-10-25 [facility] 11:15:00 [facility] CHLORIDE LEVEL 2021-10-25 [facility] [place] 11:15:00 [facility] CARBON DIOXIDE LEVEL 2021-10-25 Madeline Campbell [facility] 11:15:00 [facility] BLOOD UREA NITROGEN 2021-10-25 Madeline Campbell [facility] 11:15:00 [facility] SERUM CREATININE 2021-10-25 HenriettaMadeline wilson [facility] 11:15:00 [facility] GLUCOSE, RANDOM 2021-10-25 HenriettaJorge LuisMadeline Margo [place] [facility] [place] 11:15:00 [facility] LACTATE DEHYDROGENASE 2021-10-25 ShannanMadeline wilson [facility] 11:15:00 [facility] URIC ACID 2021-10-25 ShannanJorge Luis wilsonelle Margo [place] [facility] [place] 11:15:00 [facility] PHOSPHORUS LEVEL 2021-10-25 Madeline Campbell [facility] 11:15:00 [facility] FRACTIONATED BILIRUBIN 2021-10-25 ShannanMadeline [facility] 11:15:00 [facility] ALBUMIN LEVEL 2021-10-25 Madeline Campbell [place] [facility] [place] 11:15:00 [facility] CALCIUM LEVEL TOTAL 2021-10-25 Madeline Campbell [facility] 11:15:00 [facility] MAGNESIUM LEVEL 2021-10-25 ShannanMadeline wilson [place] [facility] [place] 11:15:00 [facility] ALANINE AMINOTRANSFERASE 2021-10-25 HenriettaMadeline [facility] 11:15:00 [facility] ASPARTATE AMINOTRANSFERASE 2021-10-25 ShannanMadeline wilson [facility] 11:15:00 [facility] ALKALINE PHOSPHATASE 2021-10-25 HenriettaMadeline wilson [facility] 11:15:00 [facility] VANCOMYCIN LEVEL TROUGH 2021-10-25 Yodit Colunga [facility] 11:15:00 [facility] Results CBC 2021-10-25 [facility] 11:15:00 [facility] MANUAL DIFFERENTIAL 2021-10-25 [facility] [address] 11:15:00 [facility] SERUM CREATININE 2021-10-25 [facility] 11:15:00 [facility] .GLOMERULAR FILTRATION RATE 2021-10-25 [facility] 11:15:00 [facility] ANION GAP 2021-10-25 [facility] 11:15:[address] [facility] IR CT GUIDED DEEP DRAIN 2021-10-24 Darnell Quick [facility] PLACEMENT (NON-ORGAN) 75 22:25:08 MD [facility] [employer] CULTURE W/ SMEAR 2021-10-24 Destiney [facility] 22:21:00 [facility] BODY FLUID CULTURE 2021-10-24 Destiney [facility] 22:21:00 [facility] ANAEROBIC CULTURE 2021-10-24 Destiney [facility] 22:21:00 [facility] FUNGUS CULTURE W/ SMEAR 2021-10-24 Kymberly Cabelloshua [facility] 22:21:00 [facility] COMPREHENSIVE METABOLIC 2021-10-24 Rosalba Potts [facility] PANEL 14:28:00 [facility] GLUCOSE LEVEL 2021-10-24 Rosalba Potts [facility] 14:28:00 [facility] BLOOD UREA NITROGEN 2021-10-24 Rosalba Potts [facility] 14:28:00 [facility] ELECTROLYTE PANEL 2021-10-24 Rosalba Potts [facility] 14:28:00 [facility] SERUM CREATININE 2021-10-24 Rosalba Potts [facility] ex 14:28:00 [facility] .GLOMERULAR FILTRATION RATE 2021-10-24 Rosalba Potts [facility] 14:28:00 [facility] CALCIUM LEVEL TOTAL 2021-10-24 Rosalba Potts [facility] 14:28:00 [facility] ALBUMIN LEVEL 2021-10-24 Rosalba Potts [facility] 14:28:00 [facility] ALKALINE PHOSPHATASE 2021-10-24 Rosalba Potts [facility] 14:28:00 [facility] ALANINE AMINOTRANSFERASE 2021-10-24 Rosalba Potts [facility] 14:28:00 [facility] ASPARTATE AMINOTRANSFERASE 2021-10-24 Rosalba Potts [facility] 14:28:00 [facility] TOTAL PROTEIN 2021-10-24 Rosalba Potts [facility] 14:28:00 [facility] FRACTIONATED BILIRUBIN 2021-10-24 Rosalba Potts [facility] 14:28:00 [facility] COMPLETE BLOOD COUNT W/ 2021-10-24 Atiya Smallwood [facility] INDICES 14:28:00 [facility] MAGNESIUM LEVEL 2021-10-24 Keanu Yodit [facility] 12:29:00 [facility] PHOSPHORUS LEVEL 2021-10-24 Keanu Yodit [facility] 12:29:00 [facility] URIC ACID 2021-10-24 Keanu Yodit [facility] 12:29:00 [facility] LACTATE DEHYDROGENASE 2021-10-24 Keanu [facility] 12:29:00 [facility] GLUCOSE LEVEL 2021-10-24 Keanu [facility] 12:29:00 [facility] BLOOD UREA NITROGEN 2021-10-24 [facility] [place] 12:29:00 [facility] ELECTROLYTE PANEL 2021-10-24 Keanu [facility] 12:29:00 [facility] SERUM CREATININE 2021-10-24 Keanu Yodit [facility] 12:29:00 [facility] .GLOMERULAR FILTRATION RATE 2021-10-24 Yodit Colunga [facility] 12:29:00 [facility] CALCIUM LEVEL TOTAL 2021-10-24 Keanu [facility] 12:29:00 [facility] ALBUMIN LEVEL 2021-10-24 Yodit Colunga [facility] 12:29:00 [facility] ALKALINE PHOSPHATASE 2021-10-24 Keanu [facility] 12:29:00 [facility] ALANINE AMINOTRANSFERASE 2021-10-24 Yodit Colunga [facility] 12:29:00 [facility] ASPARTATE AMINOTRANSFERASE 2021-10-24 Keanu Yodit [facility] 12:29:00 [facility] TOTAL PROTEIN 2021-10-24 Yodit Colunga [facility] 12:29:00 [facility] FRACTIONATED BILIRUBIN 2021-10-24 Keanu Yodit [facility] 12:29:00 [facility] [facility] COMPLETE BLOOD COUNT W/ 2021-10-24 Madeline Campbell [facility] DIFFERENTIAL 08:46:00 [facility] SODIUM LEVEL 2021-10-24 Madeline Campbell [facility] [place] 08:46:00 [facility] CHLORIDE LEVEL 2021-10-24 HenriettaMadeline wilson [place] [facility] [place] 08:46:00 [facility] CARBON DIOXIDE LEVEL 2021-10-24 Madeline Campbell [facility] 08:46:00 [facility] BLOOD UREA NITROGEN 2021-10-24 Madeline Campbell [facility] [place] [facility] 08:46:00 [facility] SERUM CREATININE 2021-10-24 Madeline Campbell [facility] 08:46:00 [facility] GLUCOSE, RANDOM 2021-10-24 HenriettaMadeline wilson [place] [facility] [place] 08:46:00 [facility] LACTATE DEHYDROGENASE 2021-10-24 Madeline Campbell [facility] 08:46:00 [facility] URIC ACID 2021-10-24 HenriettaMadeline wilson [place] [facility] [place] 08:46:00 [facility] PHOSPHORUS LEVEL 2021-10-24 Madeline Campbell [facility] 08:46:00 [facility] FRACTIONATED BILIRUBIN 2021-10-24 ShannanMadeline wilson [facility] 08:46:00 [facility] ALBUMIN LEVEL 2021-10-24 Madeline Campbell [place] [facility] [place] 08:46:00 [facility] MAGNESIUM LEVEL 2021-10-24 HenriettaMadeline wilson [place] [facility] [place] 08:46:00 [facility] ALANINE AMINOTRANSFERASE 2021-10-24 Madeline Campbell [facility] 08:46:00 [facility] ASPARTATE AMINOTRANSFERASE 2021-10-24 HenriettaMadeline wilson [facility] 08:46[facility]00 [facility] ALKALINE PHOSPHATASE 2021-10-24 Madeline Campbell [facility] [place] [facility] 08:46:00 [facility] Results CBC 2021-10-24 Cl [place]hel [place] [facility] [place] 08:46:00 [facility] MANUAL DIFFERENTIAL 2021-10-24 [facility] [place] 08:46:00 [facility] SERUM CREATININE 2021-10-24 [facility] [place] 08:46:00 [facility] .GLOMERULAR FILTRATION RATE 2021-10-24 [facility] 08:[facility] ANION GAP 2021-10-24 [facility] [place] 08:46:00 [facility] EKG, 12-LEAD (PORTABLE) 2021-10-24 Favian Hill [facility] 00:00:00 [facility] COMPLETE BLOOD COUNT W/ 2021-10-23 Madeline Campbell [facility] DIFFERENTIAL 09:29:00 [facility] SODIUM LEVEL 2021-10-23 Madeline Campbell [place] [facility] [place] 09:29:00 [facility] POTASSIUM LEVEL 2021-10-23 HenriettaJorge Luis wilsonelle Margo [place] [facility] [place] 09:29:00 [facility] CHLORIDE LEVEL 2021-10-23 Jorge Luis Campbellelle Margo [place] [facility] [place] 09:29:00 [facility] CARBON DIOXIDE LEVEL 2021-10-23 Madeline Campbell [facility] 09:29:00 [facility] BLOOD UREA NITROGEN 2021-10-23 Madeline Campbell [facility] 09:29:00 [facility] SERUM CREATININE 2021-10-23 Madeline Campbell [facility] 09:29:00 [facility] GLUCOSE, RANDOM 2021-10-23 Madeline Campbell [place] [facility] [place] 09:29:00 [facility] LACTATE DEHYDROGENASE 2021-10-23 Madeline Campbell [facility] 09:29:00 [facility] URIC ACID 2021-10-23 Madeline Campbell [place] [facility] [place] 09:29:00 [facility] PHOSPHORUS LEVEL 2021-10-23 Madeline Campbell [facility] 09:29:00 [facility] FRACTIONATED BILIRUBIN 2021-10-23 Madeline Campbell [facility] 09:29:00 [facility] ALBUMIN LEVEL 2021-10-23 ShannanJorge Luis wilsonelle Margo [place] [facility] [place] 09:29:00 [facility] CALCIUM LEVEL TOTAL 2021-10-23 Madeline Campbell [facility] [place] [facility] 09:29:00 [facility] MAGNESIUM LEVEL 2021-10-23 HenriettaJorge Luis wilsnoelle Margo [place] [facility] [place] 09:29:00 [facility] ALANINE AMINOTRANSFERASE 2021-10-23 Madeline Campbell [facility] [place] 09:29:00 [facility] ASPARTATE AMINOTRANSFERASE 2021-10-23 HenriettaMadeline wilson [facility] [place] 09:29:00 [facility] ALKALINE PHOSPHATASE 2021-10-23 HenriettaMadeline wilson [facility] [place] [facility] [place] 09:29:00 [facility] TYPE AND SCREEN 2021-10-23 ShannanJorge Luis wilsonelle Margo [place] [facility] [place] 09:29:00 [facility] Results CBC 2021-10-23 [facility] 09:29:00 [facility] MANUAL DIFFERENTIAL 2021-10-23 [facility] [place] 09:29:00 [facility] SERUM CREATININE 2021-10-23 [facility] [place] 09:29:00 [facility] .GLOMERULAR FILTRATION RATE 2021-10-23 [facility] 09:29:00 [facility] ABORH 2021-10-23 [facility] 09:29[facility]00 [facility] ANTIBODY SCREEN 2021-10-23 [facility] [place] 09:29:00 [facility] ANION GAP 2021-10-23 [facility] [place] 09:29:00 [facility] TMP INTERPRETATION ANTIBODY 2021-10-23 [facility] SCREEN NEGATIVE 09:29:00 [facility] CLOT EXPIRATION DATE 2021-10-23 [facility] 09:29:[address] [facility] [address] ABDOMEN PELVIS W WO 2021-10-23 Cl, [facility] CONTRAST 00:57:00 [facility] BLOODCULTURE 2021-10-22 Cl [facility] [place] 23:05:00 [facility] URINALYSIS WITH MICROSCOPIC 2021-10-22 Travis Shah [facility] IF INDICATED 17:11:00 [facility] URINALYSIS MICROSCOPIC 2021-10-22 Travis Shah [facility] 17:11:00 [facility] URINE CULTURE 2021-10-22 Travis Shah [facility] 17:11:00 [facility] XR CHEST 1 VW 2021-10-22 [facility] 15:15:42 [facility] COMPLETE BLOOD COUNT W/ 2021-10-22 Travis Shah [facility] DIFFERENTIAL 14:55:00 [facility] COMPREHENSIVE METABOLIC 2021-10-22 Travis Shah [facility] PANEL 14:55:00 [facility] MAGNESIUM LEVEL 2021-10-22 [facility] 14:55:00 [facility] PHOSPHORUS LEVEL 2021-10-22 [facility] 14:55:00 [facility] PROCALCITONIN 2021-10-22 [facility] 14:55:00 [facility] CARDIAC PANEL 2021-10-22 [facility] 14:55:00 [facility] NT PRO BNP 2021-10-22 [facility] 14:55:00 [facility] PROTHROMBIN TIME 2021-10-22 [facility] 14:55:00 [facility] APTT 2021-10-22 [facility] 14:55:00 [facility] D DIMER 2021-10-22 [facility] 14:55:00 [facility] LACTIC ACID, VENOUS 2021-10-22 [facility] 14:55:00 [facility] C REACTIVE PROTEIN 2021-10-22 Travis Shah [facility] 14:55:00 [facility] Results CBC 2021-10-22 [facility] 14:55:00 [facility] MANUAL DIFFERENTIAL 2021-10-22 Pablo Travis [facility] 14:55:00 [facility] GLUCOSE LEVEL 2021-10-22 [facility] 14:55:00 [facility] BLOOD UREA NITROGEN 2021-10-22 [facility] 14:55:00 [facility] ELECTROLYTE PANEL 2021-10-22 Pablo Travis [facility] 14:55:00 [facility] SERUM CREATININE 2021-10-22 [facility] 14:55:00 [facility] .GLOMERULAR FILTRATION RATE 2021-10-22 Travis Shah [facility] 14:55:00 [facility] CALCIUM LEVEL TOTAL 2021-10-22 [facility] 14:55:00 [facility] ALBUMIN LEVEL 2021-10-22 [facility] 14:55:00 [facility] ALKALINE PHOSPHATASE 2021-10-22 Travis Shah [facility] 14:55:00 [facility] ALANINE AMINOTRANSFERASE 2021-10-22 Travis Shah [facility] 14:55:00 [facility] ASPARTATE AMINOTRANSFERASE 2021-10-[address] [facility] 14:55:00 [facility] TOTAL PROTEIN 2021-10-22 Pablo Travis [facility] 14:55:00 [facility] FRACTIONATED BILIRUBIN 2021-10-22 Travis Shah [facility] 14:55:00 [facility] BLOODCULTURE 2021-10-22 Pablo Travis [facility] 14:55:00 [facility] COVID-19 (SARS-COV-2) 2021-10-22 Travis Shah [facility] ASYMPTOMATIC-LT 14:55:00 [facility] RESPIRATORY VIRAL PANEL, 2021-10-22 Taylor Bell [facility] NASOPHARYNGEAL SWAB 14:55:00 [facility] RESPIRATORY PCR PANEL PATH 2021-10-22 Michelle Mejia [facility] REVIEW 14:55:00 MedinaRamana GRACIA [facility] EKG, 12-LEAD (PORTABLE) 2021-10-22 Travis Shah [facility] 00:00:00 [facility] COMPLETE BLOOD COUNT W/ 2021-10-17 Susan Keller [facility] DIFFERENTIAL 17:53:00 [facility] TOTAL PROTEIN 2021-10-17 Susan Keller [facility] ex 17:53:00 [facility] ALBUMIN LEVEL 2021-10-17 Susan Keller [facility] 17:53:00 [facility] CALCIUM LEVEL TOTAL 2021-10-17 Susan Keller [facility] 17:53:00 [facility] PHOSPHORUS LEVEL 2021-10-17 Susan Keller [facility] 17:53:00 [facility] GLUCOSE, RANDOM 2021-10-17 Susan Keller [facility] 17:53:00 [facility] BLOOD UREA NITROGEN 2021-10-17 Susan Keller [facility] 17:53:00 [facility] SERUM CREATININE 2021-10-17 Susan Keller [facility] 17:53:00 [facility] URIC ACID 2021-10-17 Susan Keller [facility] 17:53:00 [facility] FRACTIONATED BILIRUBIN 2021-10-17 Susan Keller [facility] 17:53:00 [facility] ALKALINE PHOSPHATASE 2021-10-17 Susan Keller [facility] 17:53:00 [facility] LACTATE DEHYDROGENASE 2021-10-17 Susan Keller [facility] 17:53:00 [facility] ALANINE AMINOTRANSFERASE 2021-10-17 Susan Keller [facility] 17:53:00 [facility] MAGNESIUM LEVEL 2021-10-17 Susan Keller [facility] exas 17:53:00 [facility] ASPARTATE AMINOTRANSFERASE 2021-10-17 Susan Keller [facility] 17:53:00 [facility] ELECTROLYTE PANEL 2021-10-17 Susan Keller [facility] 17:53:00 [facility] TYPE AND SCREEN 2021-10-17 Susan Keller [facility] ex 17:53:00 [facility] Results CBC 2021-10-17 Susan Keller [facility] ex 17:53:00 [facility] MANUAL DIFFERENTIAL 2021-10-17 Susan Keller [facility] 17:53:00 [facility] SERUM CREATININE 2021-10-17 Susan Keller [facility] 17:53:00 [facility] ABORH 2021-10-17 Susan Keller [facility] ex 17:53:00 [facility] ANTIBODY SCREEN 2021-10-17 Susan Keller [facility] 17:53:00 [facility] .GLOMERULAR FILTRATION RATE 2021-10-[address] [facility] 17:53:00 [facility] CLOT EXPIRATION DATE 2021-10-17 Susan Keller [facility] 17:53:00 [facility] TMP INTERPRETATION ANTIBODY 2021-10-[address] [facility] SCREEN NEGATIVE 17:53:[address] [facility] [address] ABDOMEN PELVIS W CONTRAST 2021-10-[address] [facility] 15:48:00 [facility] COMPLETE BLOOD COUNT W/ 2021-10-10 Susan Keller [facility] DIFFERENTIAL 13:06:00 [facility] TOTAL PROTEIN 2021-10-10 Susan Keller [facility] exas 13:06:00 [facility] ALBUMIN LEVEL 2021-10-10 Susan Keller [facility] 13:06:00 [facility] CALCIUM LEVEL TOTAL 2021-10-10 Susan Keller [facility] 13:06:00 [facility] PHOSPHORUS LEVEL 2021-10-10 Susan Keller [facility] 13:06:00 [facility] GLUCOSE, RANDOM 2021-10-10 Susan Keller [facility] 13:06:00 [facility] BLOOD UREA NITROGEN 2021-10-10 Susan Keller [facility] 13:06:00 [facility] SERUM CREATININE 2021-10-10 Susan Keller [facility] 13:06:00 [facility] URIC ACID 2021-10-10 Susan Keller [facility] 13:06:00 [facility] FRACTIONATED BILIRUBIN 2021-10-10 Susan Keller [facility] 13:06:00 [facility] ALKALINE PHOSPHATASE 2021-10-10 Susan Keller [facility] 13:06:00 [facility] LACTATE DEHYDROGENASE 2021-10-10 Susan Keller [facility] 13:06:00 [facility] ALANINE AMINOTRANSFERASE 2021-10-10 Susan Keller [facility] 13:06:00 [facility] MAGNESIUM LEVEL 2021-10-10 Susan Keller [facility] 13:06:00 [facility] ASPARTATE AMINOTRANSFERASE 2021-10-10 Susan Keller [facility] 13:06:00 [facility] ELECTROLYTE PANEL 2021-10-10 Susan Keller [facility] 13:06:00 [facility] TYPE AND SCREEN 2021-10-10 Susan Keller [facility] 13:06:00 [facility] Results CBC 2021-10-10 Susan Keller [facility] 13:06:00 [facility] MANUAL DIFFERENTIAL 2021-10-10 Susan Keller [facility] 13:06:00 [facility] SERUM CREATININE 2021-10-10 Susan Keller [facility] 13:06:00 [facility] .GLOMERULAR FILTRATION RATE 2021-10-[address] [facility] 13:06:00 [facility] ABORH 2021-10-10 Susan Keller [facility] ex 13:06:00 [facility] ANTIBODY SCREEN 2021-10-10 Susan Keller [facility] 13:06:00 [facility] CLOT EXPIRATION DATE 2021-10-10 Susan Keller [facility] 13:06:00 [facility] TMP INTERPRETATION ANTIBODY 2021-10-[address] [facility] SCREEN NEGATIVE 13:06:00 [facility] MAGNESIUM LEVEL 2021-10-03 Susan Keller [facility] 12:30:00 [facility] ASPARTATE AMINOTRANSFERASE 2021-10-03 Susan Keller [facility] 12:30:00 [facility] ELECTROLYTE PANEL 2021-10-03 Susan Keller [facility] 12:30:00 [facility] TYPE AND SCREEN 2021-10-03 Susan Keller [facility] 12:30:00 [facility] Results CBC 2021-10-03 Susan Keller [facility] 12:30:00 [facility] MANUAL DIFFERENTIAL 2021-10-03 Susan Keller [facility] 12:30:00 [facility] SERUM CREATININE 2021-10-03 Susan Keller [facility] 12:30:00 [facility] .GLOMERULAR FILTRATION RATE 2021-10-[address] [facility] 12:30:00 [facility] ABORH 2021-10-03 Susan Keller [facility] 12:30:00 [facility] ANTIBODY SCREEN 2021-10-03 Susan Keller [facility] 12:30:00 [facility] TMP INTERPRETATION ANTIBODY 2021-10-[address] [facility] SCREEN NEGATIVE 12:30:00 [facility] CLOT EXPIRATION DATE 2021-10-03 Susan Keller [facility] 12:30:00 [facility] COMPLETE BLOOD COUNT W/ 2021-10-03 Susan Keller [facility] DIFFERENTIAL 12:30:00 [facility] TOTAL PROTEIN 2021-10-03 Susan Keller [facility] ex 12:30:00 [facility] ALBUMIN LEVEL 2021-10-03 Susan Keller [facility] 12:30:00 [facility] CALCIUM LEVEL TOTAL 2021-10-03 Susan Keller [facility] 12:30:00 [facility] PHOSPHORUS LEVEL 2021-10-03 Susan Keller [facility] 12:30:00 [facility] GLUCOSE, RANDOM 2021-10-03 Susan Keller [facility] 12:30:00 [facility] BLOOD UREA NITROGEN 2021-10-03 Susan Keller [facility] 12:30:00 [facility] SERUM CREATININE 2021-10-03 Susan Keller [facility] 12:30:00 [facility] URIC ACID 2021-10-03 Susan Keller [facility] 12:30:00 [facility] FRACTIONATED BILIRUBIN 2021-10-03 Susan Keller [facility] 12:30:00 [facility] ALKALINE PHOSPHATASE 2021-10-03 Susan Keller [facility] 12:30:00 [facility] LACTATE DEHYDROGENASE 2021-10-03 Susan Keller [facility] 12:30:00 [facility] ALANINE AMINOTRANSFERASE 2021-10-03 Susan Keller [facility] 12:30:00 [facility] CONFIRM ABORH TYPE 2021-10-03 Susan Keller [facility] 12:28:00 [facility] COMPLETE BLOOD COUNT W/ 2021-09-28 Crescencio Cooley V. [facility] DIFFERENTIAL 08:14:00 [facility] COMPREHENSIVE METABOLIC 2021-09-28 Crescencio Cooley [facility] PANEL 08:14:00 [facility] MAGNESIUM LEVEL 2021-09-28 Cres[facility]enc[facility] 08:14:00 [facility] PHOSPHORUS LEVEL 2021-09-28 Crescencio Cooley V. [facility] ex 08:14:00 [facility] LACTATE DEHYDROGENASE 2021-09-28 [facility] 08:14:00 [facility] URIC ACID 2021-09-28 [facility] 08:14:00 [facility] Results CBC 2021-09-28 Crescencio [facility] 08:14:00 [facility] MANUAL DIFFERENTIAL 2021-09-28 Crescencio [facility]oley [facility] 08:14:00 [facility] GLUCOSE LEVEL 2021-09-28 Crescencio [facility] 08:14:00 [facility] BLOOD UREA NITROGEN 2021-09-28 Crescencio [facility]oley [facility] 08:14:00 [facility] ELECTROLYTE PANEL 2021-09-28 Crescencio [facility]oley [facility] 08:14:00 [facility] SERUM CREATININE 2021-09-28 Crescencio Cooley V. [facility] ex 08:14:00 [facility] .GLOMERULAR FILTRATION RATE 2021-09-28 Crescencio Cooley [facility]. [facility] 08:14:00 [facility] CALCIUM LEVEL TOTAL 2021-09-28 Crescencio [facility]oley [facility] 08:14:00 [facility] ALBUMIN LEVEL 2021-09-28 Crescenc[facility] 08:14:00 [facility] ALKALINE PHOSPHATASE 2021-09-28 Crescencio [facility]oley [facility] 08:14:00 [facility] ALANINE AMINOTRANSFERASE 2021-09-28 Crescencio Cooley [facility] 08:14:00 [facility] ASPARTATE AMINOTRANSFERASE 2021-09-28 Crescencio Cooley [facility] 08:14:00 [facility] TOTAL PROTEIN 2021-09-28 Crescencio [facility] 08:14:00 [facility] FRACTIONATED BILIRUBIN 2021-09-28 Crescencio Cooley [facility] 08:14:00 [facility] COMPLETE BLOOD COUNT W/ 2021-09-27 Crescencio Cooley [facility] DIFFERENTIAL 09:02:00 [facility] COMPREHENSIVE METABOLIC 2021-09-27 Crescencio Cooley [facility] PANEL 09:02:00 [facility] MAGNESIUM LEVEL 2021-09-27 Cres[facility] 09:02:00 [facility] PHOSPHORUS LEVEL 2021-09-27 Crescencio Cooley [facility] ex 09:02:00 [facility] LACTATE DEHYDROGENASE 2021-09-27 Susan Keller [facility] 09:02:00 [facility] URIC ACID 2021-09-27 Susan Keller [facility] ex 09:02:00 [facility] Results CBC 2021-09-27 [facility] 09:02:00 [facility] MANUAL DIFFERENTIAL 2021-09-27 Crescencio Cooley [facility] 09:02:00 [facility] GLUCOSE LEVEL 2021-09-27 Cres[facility]enc[facility] 09:02:00 [facility] BLOOD UREA NITROGEN 2021-09-27 Crescencio [facility]oley [facility] 09:02:00 [facility] ELECTROLYTE PANEL 2021-09-27 Crescencio Cooley [facility] 09:02:00 [facility] SERUM CREATININE 2021-09-27 Crescencio Cooley V. [facility] exas 09:02:00 [facility] .GLOMERULAR FILTRATION RATE 2021-09-27 Crescencio Cooley [facility] 09:02:00 [facility] CALCIUM LEVEL TOTAL 2021-09-27 Crescencio Cooley [facility] 09:02:00 [facility] ALBUMIN LEVEL 2021-09-27 Cres[facility] 09:02:00 [facility] ALKALINE PHOSPHATASE 2021-09-27 Crescencio [facility] 09:02:00 [facility] ALANINE AMINOTRANSFERASE 2021-09-27 Crescencio Cooley [facility] 09:02:00 [facility] ASPARTATE AMINOTRANSFERASE 2021-09-27 Crescencio Cooley [facility] 09:02:00 [facility] TOTAL PROTEIN 2021-09-27 Crescenc[facility] 09:02:00 [facility] FRACTIONATED BILIRUBIN 2021-09-27 Crescencio Cooley [facility] 09:02:00 [facility] EKG, 12-LEAD (PORTABLE) 2021-09-27 Susan Keller [facility] 00:00:00 [facility] PROTHROMBIN TIME 2021-09-26 Susan Keller [facility] 07:59:00 [facility] APTT 2021-09-26 Susan Keller [facility]as 07:59:00 [facility] COMPLETE BLOOD COUNT W/ 2021-09-26 Crescencio Cooley [facility] DIFFERENTIAL 07:59:00 [facility] COMPREHENSIVE METABOLIC 2021-09-26 Crescencio Cooley [facility] PANEL 07:59:00 [facility] MAGNESIUM LEVEL 2021-09-26 Cres[facility] 07:59:00 [facility] PHOSPHORUS LEVEL 2021-09-26 Crescencio Cooley [facility]as 07:59:00 [facility] LACTATE DEHYDROGENASE 2021-09-26 Susan Keller [facility] 07:59:00 [facility] URIC ACID 2021-09-26 Susan Keller [facility]as 07:59:00 [facility] Results CBC 2021-09-26 [facility] 07:59:00 [facility] MANUAL DIFFERENTIAL 2021-09-26 Crescencio Cooley [facility] 07:59:00 [facility] GLUCOSE LEVEL 2021-09-26 Crescenc[facility] 07:59:00 [facility] BLOOD UREA NITROGEN 2021-09-26 Crescencio Cooley [facility] 07:59:00 [facility] ELECTROLYTE PANEL 2021-09-26 Crescencio Cooley [facility] 07:59:00 [facility] SERUM CREATININE 2021-09-26 Crescencio Cooley V. [facility] ex 07:59:00 [facility] .GLOMERULAR FILTRATION RATE 2021-09-26 Crescencio Cooley V. [facility] 07:59:00 [facility] CALCIUM LEVEL TOTAL 2021-09-26 Crescencio Cooley V. [facility] 07:59:00 [facility] ALBUMIN LEVEL 2021-09-26 Crescencio Cooley V. [facility] xa 07:59:00 [facility] ALKALINE PHOSPHATASE 2021-09-26 Crescencio Cooley V. [facility] 07:59:00 [facility] ALANINE AMINOTRANSFERASE 2021-09-26 Crescencio Cooley V. [facility] 07:59:00 [facility] ASPARTATE AMINOTRANSFERASE 2021-09-26 Crescencio Cooley V. [facility] 07:59:00 [facility] TOTAL PROTEIN 2021-09-26 Crescencio Cooley V. [facility] 07:59:00 [facility] FRACTIONATED BILIRUBIN 2021-09-26 Crescencio Cooley V. [facility] 07:59:00 [facility] [place] DIAGNOSTIC BONE MARROW 2021-09-25 Susan Keller [facility] BIOPSIES & ASPIRATIONS 22:54:50 MD Shay [facility] COVID-19 (SARS-COV-2) 2021-09-25 Yodit Colunga [facility] ASYMPTOMATIC-LT 20:13:00 [facility] HEMATOPATHOLOGY BONE MARROW 2021-09-25 Yodit Colunga [facility] INTERPRETATION 18:03:00 [facility] HEMATOPATHOLOGY BONE MARROW 2021-09-25 Yodit Colunga [facility] DIFFERENTIAL 18:03:00 [facility] HP CG MYC FISH COLLECTION, 2021-09-25 [facility] NONBLOOD 17:57:00 [facility] HP CG [id number] FISH COLLECTION, 2021-09-[facility] 17:57:00 [facility] HP CG CHROMOSOME ANALYSIS 2021-09-[address] [facility] COLLECTION, NONBLOOD 17:57:00 [facility] HP MD [id number] MUTATION 2021-09-25 Jaren [facility] ANALYSIS COLLECTION, 17:57:00 [facility] NONBLOOD Center HP MD [id number] COLLECTION, 2021-09-[facility] 17:57:00 [facility] HP CYTOGENETICS BLOOD 2021-09-25 Jaren [facility] COLLECTION 17:57:00 [facility] HP FC FLOW CYTOMETRY BLOOD 2021-09-25 Jaren [facility] COLLECTION 17:57:00 [facility] HP MOLECULAR BLOOD 2021-09-25 Jaren [facility] COLLECTION 17:57:00 [facility] HP CG CHROMOSOME ANALYSIS 2021-09-[address] [facility] INTERPRETATION AND REPORT 17:57:00 MD Toure [facility] HP FC LYMPHOMA B 2021-09-25 Jaren [facility] exas INTERPRETATION AND REPORT 17:57:00 MD Toure [facility] PROTHROMBIN TIME 2021-09-[address] [facility] [place] 09:00:00 [facility] APTT 2021-09-[address] [facility] [place] 09:00:00 [facility] HEPATITIS B CORE ANTIBODY 2021-09-25 Augusta Lewis [facility] IGM ACUTE TITER 09:00:00 [facility] HEPATITIS BE ANTIBODY, SERUM 2021-09-[address] [facility] 09:00:00 [facility] HEPATITIS BE ANTIGEN, SERUM 2021-09-25 Augusta Lewis [facility] 09:00:00 [facility] COMPLETE BLOOD COUNT W/ 2021-09-25 Crescencio Cooley V. [facility] DIFFERENTIAL 09:00:00 [facility] COMPREHENSIVE METABOLIC 2021-09-25 Crescencio Cooley V. [facility] PANEL 09:00:00 [facility] MAGNESIUM LEVEL 2021-09-25 Crescencio Cooley V. [facility] 09:00:00 [facility] PHOSPHORUS LEVEL 2021-09-25 Crescencio Cooley V. [facility] ex 09:00:00 [facility] LACTATE DEHYDROGENASE 2021-09-25 Susan Keller [facility] 09:00:00 [facility] URIC ACID 2021-09-25 Susan Keller [facility] ex 09:00:00 [facility] Results CBC 2021-09-25 Crescencio Cooley V. [facility] 09:00:00 [facility] MANUAL DIFFERENTIAL 2021-09-25 Crescencio Cooley V. [facility] 09:00:00 [facility] GLUCOSE LEVEL 2021-09-25 Crescencio Cooley V. [facility] 09:00:00 [facility] BLOOD UREA NITROGEN 2021-09-25 Crescencio Cooley V. [place] [facility] 09:00:00 [facility] ELECTROLYTE PANEL 2021-09-25 Crescencio Cooley V. [facility] 09:00:00 [facility] SERUM CREATININE 2021-09-25 Crescencio Cooley V. [facility] ex 09:00:00 [facility] .GLOMERULAR FILTRATION RATE 2021-09-25 Crescencio Cooley V. [facility] 09:00:00 [facility] CALCIUM LEVEL TOTAL 2021-09-25 Crescencio Cooley V. [facility] 09:00:00 [facility] ALBUMIN LEVEL 2021-09-25 Crescencio Cooley V. [facility] 09:00:00 [facility] ALKALINE PHOSPHATASE 2021-09-25 Crescencio Cooley V. [facility] 09:00:00 [facility] ALANINE AMINOTRANSFERASE 2021-09-25 Crescencio Cooley V. [facility] 09:00:00 [facility] ASPARTATE AMINOTRANSFERASE 2021-09-25 Crescencio Cooley V. [facility] 09:00:00 [facility] TOTAL PROTEIN 2021-09-25 Crescencio Cooley V. [facility] 09:00:00 [facility] FRACTIONATED BILIRUBIN 2021-09-25 Crescencio Cooley V. [facility] 09:00:00 [facility] COMPLETE BLOOD COUNT W/ 2021-09-24 Crescencio Cooley V. [facility] DIFFERENTIAL 07:18:00 [facility] COMPREHENSIVE METABOLIC 2021-09-24 Crescencio Cooley V. [facility] PANEL 07:18:00 [facility] MAGNESIUM LEVEL 2021-09-24 Crescencio Cooley V. [facility] 07:18:00 [facility] PHOSPHORUS LEVEL 2021-09-24 Crescencio Cooley V. [facility] ex 07:18:00 [facility] CREATINE KINASE 2021-09-24 Crescencio Cooley V. [facility] 07:18:00 [facility] LACTATE DEHYDROGENASE 2021-09-24 Susan Keller [facility] 07:18:00 [facility] URIC ACID 2021-09-24 Susan Keller [facility] ex 07:18:00 [facility] Results CBC 2021-09-24 Crescencio Cooley V. [facility] 07:18:00 [facility] MANUAL DIFFERENTIAL 2021-09-24 Crescencio Cooley V. [facility] 07:18:00 [facility] GLUCOSE LEVEL 2021-09-24 Crescencio Cooley V. [facility] 07:18:00 [facility] BLOOD UREA NITROGEN 2021-09-24 Crescencio Cooley V. [facility] 07:18:00 [facility] ELECTROLYTE PANEL 2021-09-24 Crescencio Cooley V. [facility] 07:18:00 [facility] SERUM CREATININE 2021-09-24 Crescencio Cooley V. [facility] exas 07:18:00 [facility] .GLOMERULAR FILTRATION RATE 2021-09-24 Crescencio Cooley V. [facility] 07:18:00 [facility] CALCIUM LEVEL TOTAL 2021-09-24 Crescencio Cooley V. [facility] 07:18:00 [facility] ALBUMIN LEVEL 2021-09-24 Crescencio Cooley V. [facility] 07:18:00 [facility] ALKALINE PHOSPHATASE 2021-09-24 Crescencio Cooley V. [facility] 07:18:00 [facility] ALANINE AMINOTRANSFERASE 2021-09-24 Crescencio Cooley V. [facility] 07:18:00 [facility] ASPARTATE AMINOTRANSFERASE 2021-09-24 Crescencio Cooley V. [facility] 07:18:00 [facility] TOTAL PROTEIN 2021-09-24 Crescencio Cooley V. [facility] 07:18:00 [facility] FRACTIONATED BILIRUBIN 2021-09-24 Crescencio Cooley V. [facility] 07:18:00 [facility] VERIFY CATHETER TIP 2021-09-23 [facility] 22:18:34 Lavern Espino [facility] XR CHEST 2 VW POST IMPLANT 2021-09-23 Rafael Munguia [facility] 21:09:35 [facility] INSERT VASCULAR ACCESS 2021-09-23 Rafael Munguia [facility] DEVICE 19:30:00 [facility] VASCULAR ACCESS ULTRASOUND 2021-09-23 Rafael Munguia [facility] 18:02:46 [facility] COMPLETE BLOOD COUNT W/ 2021-09-23 Crescencio Cooley V. [facility] DIFFERENTIAL 09:41:00 [facility] COMPREHENSIVE METABOLIC 2021-09-23 Crescencio Cooley V. [facility] PANEL 09:41:00 [facility] MAGNESIUM LEVEL 2021-09-23 Crescencio Cooley V. [facility] 09:41:00 [facility] PHOSPHORUS LEVEL 2021-09-23 Crescencio Cooley V. [facility] exas 09:41:00 [facility] LACTATE DEHYDROGENASE 2021-09-23 [facility] 09:41:00 [facility] URIC ACID 2021-09-23 [facility] ex 09:41:00 [facility] Results CBC 2021-09-23 Crescencio Cooley V. [facility] 09:41:00 [facility] MANUAL DIFFERENTIAL 2021-09-23 Crescencio Cooley V. [facility] 09:41:00 [facility] GLUCOSE LEVEL 2021-09-23 Crescencio Cooley V. [facility] 09:41:00 [facility] BLOOD UREA NITROGEN 2021-09-23 Crescencio Cooley V. [facility] 09:41:00 [facility] ELECTROLYTE PANEL 2021-09-23 Crescencio Cooley V. [facility] 09:41:00 [facility] SERUM CREATININE 2021-09-23 Crescencio Cooley V. [facility] ex 09:41:00 [facility] .GLOMERULAR FILTRATION RATE 2021-09-23 Crescencio Cooley V. [facility] 09:41:00 [facility] CALCIUM LEVEL TOTAL 2021-09-23 Crescencio Cooley V. [facility] 09:41:00 [facility] ALBUMIN LEVEL 2021-09-23 Crescencio Cooley V. [facility] 09:41:00 [facility] ALKALINE PHOSPHATASE 2021-09-23 Crescencio Cooley V. [facility] 09:41:00 [facility] ALANINE AMINOTRANSFERASE 2021-09-23 Crescencio Cooley V. [facility] 09:41:00 [facility] ASPARTATE AMINOTRANSFERASE 2021-09-23 Crescencio Cooley V. [facility] 09:41:00 [facility] TOTAL PROTEIN 2021-09-23 [facility] 09:41:00 [facility] FRACTIONATED BILIRUBIN 2021-09-23 Crescencio Cooley V. [facility] 09:41:00 [facility] VASCULAR ACCESS ULTRASOUND 2021-09-22 Severo Munreo [facility] 21:42:18 [facility] COMPLETE BLOOD COUNT W/ 2021-09-22 Crescencio Cooley V. [facility] DIFFERENTIAL 10:58:00 [facility] COMPREHENSIVE METABOLIC 2021-09-22 Crescencio Cooley V. [facility] PANEL 10:58:00 [facility] MAGNESIUM LEVEL 2021-09-22 Crescencio Cooley V. [facility] 10:58:00 [facility] PHOSPHORUS LEVEL 2021-09-22 Crescencio Cooley V. [facility] ex 10:58:00 [facility] LACTATE DEHYDROGENASE 2021-09-22 Susan Keller [facility] 10:58:00 [facility] URIC ACID 2021-09-22 Susan Keller [facility] exas 10:58:00 [facility] RAPID PLASMA REAGIN (RPR) 2021-09-22 [facility] 10:58[facility]00 Bry Mata MD [facility] Results CBC 2021-09-22 Crescencio Cooley [facility]. [facility] 10:58:00 [facility] MANUAL DIFFERENTIAL 2021-09-22 Crescencio Cooley V. [facility] 10:58:00 [facility] GLUCOSE LEVEL 2021-09-22 Crescencio Cooley V. [facility] 10:58:00 [facility] BLOOD UREA NITROGEN 2021-09-22 Crescencio Cooley V. [facility] 10:58:00 [facility] ELECTROLYTE PANEL 2021-09-22 Crescencio Cooley V. [facility] 10:58:00 [facility] SERUM CREATININE 2021-09-22 Crescencio Cooley V. [facility] exas 10:58:00 [facility] .GLOMERULAR FILTRATION RATE 2021-09-22 Crescencio Cooley V. [facility] 10:58:00 [facility] CALCIUM LEVEL TOTAL 2021-09-22 Crescencio Cooley V. [facility] 10:58:00 [facility] ALBUMIN LEVEL 2021-09-22 Crescencio Cooley V. [facility] 10:58:00 [facility] ALKALINE PHOSPHATASE 2021-09-22 Crescencio Cooley V. [facility] 10:58:00 [facility] ALANINE AMINOTRANSFERASE 2021-09-22 Crescencio Cooley V. [facility] 10:58:00 [facility] ASPARTATE AMINOTRANSFERASE 2021-09-22 Crescencio Cooley V. [facility] 10:58:00 [facility] TOTAL PROTEIN 2021-09-22 Crescencio Cooley V. [facility] 10:58:00 [facility] FRACTIONATED BILIRUBIN 2021-09-22 Crescencio Cooley V. [facility] 10:58:00 [facility] TMP RPR PATH INTERP 2021-09-22 [facility] 10:58:00 Bry Mata MD [facility] CMV ANTIBODY IGG AND IGM 2021-09-21 Susan Keller [facility] 11:24:00 [facility] CMV ANTIBODY IGG AND IGM 2021-09-21 Susan Keller [facility] PATH REVIEW 11:24:00 [facility] COMPLETE BLOOD COUNT W/ 2021-09-21 Crescencio Cooley V. [facility] DIFFERENTIAL 11:24:00 [facility] COMPREHENSIVE METABOLIC 2021-09-21 Crescencio Cooley V. [facility] PANEL 11:24:00 [facility] MAGNESIUM LEVEL 2021-09-21 Crescencio [facility]. [facility] 11:24:00 [facility] PHOSPHORUS LEVEL 2021-09-21 Crescencio Cooley V. [facility] ex 11:24:00 [facility] LACTATE DEHYDROGENASE 2021-09-21 Susan Keller [facility] 11:24:00 [facility] URIC ACID 2021-09-21 Susan Keller [facility] ex 11:24:00 [facility] HBV DNA QUANT 2021-09-21 Maranda Kellergaamira Perkins [facility] 11:24:00 [facility] HEPATITIS C VIRUS RNA 2021-09-21 Anu Cruz [facility] DETECT/QUANT, SERUM 11:24:00 [facility] Results CBC 2021-09-21 Crescencio Cooley [facility]. [facility] 11:24:00 [facility] MANUAL DIFFERENTIAL 2021-09-21 Crescencio Cooley V. [facility] 11:24:00 [facility] GLUCOSE LEVEL 2021-09-21 Crescencio Cooley [facility]. [facility] 11:24:00 [facility] BLOOD UREA NITROGEN 2021-09-21 Crescencio Cooley V. [facility] 11:24:00 [facility] ELECTROLYTE PANEL 2021-09-21 Crescencio Cooley V. [facility] 11:24:00 [facility] SERUM CREATININE 2021-09-21 Crescencio Cooley V. [facility] ex 11:24:00 [facility] .GLOMERULAR FILTRATION RATE 2021-09-21 Crescencio Cooley V. [facility] 11:24:00 [facility] CALCIUM LEVEL TOTAL 2021-09-21 Crescencio Cooley V. [facility] 11:24:00 [facility] ALBUMIN LEVEL 2021-09-21 Crescencio [facility] 11:24:00 [facility] ALKALINE PHOSPHATASE 2021-09-21 Crescencio Cooley V. [facility] 11:24:00 [facility] ALANINE AMINOTRANSFERASE 2021-09-21 Crescencio Cooley V. [facility] 11:24:00 [facility] ASPARTATE AMINOTRANSFERASE 2021-09-21 Leann Crescencio Gurrola. [facility] 11:24:00 [facility] TOTAL PROTEIN 2021-09-21 Crescencio Cooley V. [facility] 11:24:00 [facility] FRACTIONATED BILIRUBIN 2021-09-21 Crescencio Cooley V. [facility] 11:24:00 [facility] HEPATITIS B SURFACE ANTIGEN, 2021-09-21 [facility] 11:24:00 [facility] HEPATITIS B CORE ANTIBODY 2021-09-21 Susan Keller [facility] 11:24:00 [facility] HEPATITIS C VIRUS ANTIBODY 2021-09-21 Susan Keller [facility] 11:24:00 [facility] HTLV I/II AB SCREEN WITH 2021-09-21 Susan Keller [facility] CONFIRM 11:24:00 [facility] HIV-1/2 ANTIGEN AND 2021-09-21 Susan Keller [facility] ANTIBODIES, FOURTH 11:24:00 [facility] RAPID PLASMA REAGIN (RPR) 2021-09-21 Susan Keller [facility] 11:24:00 [facility] TMP HIV 1/2 AG&AB PATH 2021-09-21 Susan Keller [facility] INTERP 11:24:00 [facility] TMP RPR PATH INTERP 2021-09-21 Susan Keller [facility] 11:24:00 [facility] INFECTIOUS DISEASE GROUPING 2021-09-[address] [facility] 07:00:00 [facility] HEPATITIS B SURFACE 2021-09-21 [facility] [place] ANTIBODY, SERUM 07:00:00 [facility] HIV-1 DNA AND RNA QUAL PCR 2021-09-21 Susan Keller [facility] 07:00:00 [facility] ECHOCARDIOGRAM 2D COMPLETE W 2021-09-20 SalmaprashantBouchra [facility] CONTRAST 16:13:31 [facility] COMPLETE BLOOD COUNT W/ 2021-09-20 Crescencio Cooley V. [facility] DIFFERENTIAL 10:04:00 [facility] COMPREHENSIVE METABOLIC 2021-09-20 Crescencio Cooley V. [facility] PANEL 10:04:00 [facility] MAGNESIUM LEVEL 2021-09-20 Crescencio [facility]. [facility] 10:04:00 [facility] PHOSPHORUS LEVEL 2021-09-20 Crescencio Cooley V. [facility] exas 10:04:00 [facility] Results CBC 2021-09-20 Crescencio [facility]oley [facility] 10:04:00 [facility] MANUAL DIFFERENTIAL 2021-09-20 Crescencio Cooley V. [place] [facility] 10:04:00 [facility] GLUCOSE LEVEL 2021-09-20 Crescencio [facility] 10:04:00 [facility] BLOOD UREA NITROGEN 2021-09-20 Crescencio Cooley V. [place] [facility] 10:04:00 [facility] ELECTROLYTE PANEL 2021-09-20 Crescencio Cooley V. [facility] 10:04:00 [facility] SERUM CREATININE 2021-09-20 Crescencio Cooley V. [facility] exas 10:04:00 [facility] .GLOMERULAR FILTRATION RATE 2021-09-20 Crescencio Cooley V. [facility] 10:04:00 [facility] CALCIUM LEVEL TOTAL 2021-09-20 Crescencio Cooley V. [place] [facility] [place] 10:04:00 [facility] ALBUMIN LEVEL 2021-09-20 Crescencio Cooley [facility]. [facility] 10:04:00 [facility] ALKALINE PHOSPHATASE 2021-09-20 Crescencio Cooley V. [facility] 10:04:00 [facility] ALANINE AMINOTRANSFERASE 2021-09-20 Crescencio Cooley V. [facility] 10:04:00 [facility] ASPARTATE AMINOTRANSFERASE 2021-09-20 Crescencio Cooley V. [facility] 10:04:00 [facility] TOTAL PROTEIN 2021-09-20 Crescencio [facility] 10:04:00 [facility] FRACTIONATED BILIRUBIN 2021-09-20 Crescencio Cooley V. [facility] 10:04:00 [facility] URINE CULTURE 2021-09-19 Bouchra Montalvo [facility] 19:05:00 [facility] URINALYSIS MICROSCOPIC 2021-09-19 Bouchra Montalvo [facility] 19:05:00 [facility] URINALYSIS WITH MICROSCOPIC 2021-09-19 Bouchra Montalvo [facility] IF INDICATED 19:05:[address] [facility] [address] ABDOMEN PELVIS W CONTRAST 2021-09-19 Bouchra Montalvo [facility] 16:06:11 [facility] COMPLETE BLOOD COUNT W/ 2021-09-19 Crescencio Cooley V. [facility] DIFFERENTIAL 11:26:00 [facility] COMPREHENSIVE METABOLIC 2021-09-19 Crescencio Cooley V. [facility] PANEL 11:26:00 [facility] MAGNESIUM LEVEL 2021-09-19 Crescencio [facility] 11:26:00 [facility] PHOSPHORUS LEVEL 2021-09-19 Crescencio Cooley V. [facility] exas 11:26:00 [facility] Results CBC 2021-09-19 Crescencio [facility] 11:26:00 [facility] MANUAL DIFFERENTIAL 2021-09-19 Crescencio Cooley V. [facility] 11:26:00 [facility] GLUCOSE LEVEL 2021-09-19 Crescencio [facility] 11:26:00 [facility] BLOOD UREA NITROGEN 2021-09-19 Crescencio Cooley V. [facility] 11:26:00 [facility] ELECTROLYTE PANEL 2021-09-19 Crescencio Cooley V. [facility] 11:26:00 [facility] SERUM CREATININE 2021-09-19 Crescencio Cooley V. [facility]as 11:26:00 [facility] .GLOMERULAR FILTRATION RATE 2021-09-19 Crescencio Cooley V. [facility] 11:26:00 [facility] CALCIUM LEVEL TOTAL 2021-09-19 Crescencio Cooley V. [facility] 11:26:00 [facility] ALBUMIN LEVEL 2021-09-19 Crescencio [facility] 11:26:00 [facility] ALKALINE PHOSPHATASE 2021-09-19 Crescencio Cooley V. [facility] 11:26:00 [facility] ALANINE AMINOTRANSFERASE 2021-09-19 Crescencio Cooley V. [facility] 11:26:00 [facility] ASPARTATE AMINOTRANSFERASE 2021-09-19 Crescencio Cooley V. [facility] 11:26:00 [facility] TOTAL PROTEIN 2021-09-19 Crescencio Cooley [facility] 11:26:00 [facility] FRACTIONATED BILIRUBIN 2021-09-19 Crescencio Cooley V. [facility] 11:26:00 [facility] HP FC FLOW CYTOMETRY BLOOD 2021-09-18 Anay, [facility] COLLECTION 21:46:00 Roberto GRACIA [facility] HP FC LYMPHOMA B HODGKIN 2021-09-18 [facility] INTERPRET[facility] AND REPORT 21:46:00 Roberto GRACIA [facility] IR CT GUIDED BIOPSY 2021-09-18 Bouchra Montalvo [facility] RETROPERITONEAL 60 19:25:46 [facility] PATHOLOGY BIOPSY 2021-09-18 Bouchra Montalvo [facility] INTERPRETATION 18:59:00 [facility] CYTOLOGY IMAGE-GUIDED FNA 2021-09-18 Bouchra Montalvo [facility] INTERPRETATION 18:59:00 [facility] HP CYTOGENETICS BLOOD 2021-09-18 Tylor Watkins [facility] COLLECTION 16:46:00 [facility] HP CG MYC TISSUE FISH 2021-09-18 [facility] INTERPRETATION AND REPORT 16:46:00 [place] [facility] HP CG [id number] FISH 2021-09-18 [facility] INTERPRETATION AND REPORT 16:46:00 [place] [facility] COMPLETE BLOOD COUNT W/ 2021-09-18 Crescencio Cooley V. [facility] DIFFERENTIAL 11:18:00 [facility] COMPREHENSIVE METABOLIC 2021-09-18 Crescencio Cooley V. [facility] PANEL 11:18:00 [facility] MAGNESIUM LEVEL 2021-09-18 Crescencio [facility] 11:18:00 [facility] PHOSPHORUS LEVEL 2021-09-18 Crescencio Cooley V. [facility] [facility] [place] 11:18:00 [facility] Results CBC 2021-09-18 Cres[facility]encio [facility] 11:18:00 [facility] MANUAL DIFFERENTIAL 2021-09-18 Crescencio [facility]oley V. [facility] 11:18:00 [facility] GLUCOSE LEVEL 2021-09-18 [facility] 11:18:00 [facility] BLOOD UREA NITROGEN 2021-09-18 Crescencio [facility] 11:18:00 [facility] ELECTROLYTE PANEL 2021-09-18 Crescencio [facility]oley [facility]. [facility] 11:18:00 [facility] SERUM CREATININE 2021-09-18 Crescencio Cooley V. [facility] [place] 11:18:00 [facility] .GLOMERULAR FILTRATION RATE 2021-09-18 Crescencio Cooley V. [facility] 11:18:00 [facility] CALCIUM LEVEL TOTAL 2021-09-18 Crescencio [facility] 11:18:00 [facility] ALBUMIN LEVEL 2021-09-18 [facility] 11:18:00 [facility] ALKALINE PHOSPHATASE 2021-09-18 Crescencio [facility]oley [facility]. [facility] 11:18:00 [facility] ALANINE AMINOTRANSFERASE 2021-09-18 Crescencio Cooley V. [facility] 11:18:00 [facility] ASPARTATE AMINOTRANSFERASE 2021-09-18 Crescencio Cooley V. [facility] 11:18:00 [facility] TOTAL PROTEIN 2021-09-18 [facility] 11:18:00 [facility] FRACTIONATED BILIRUBIN 2021-09-18 Crescencio Cooley V. [facility] 11:18:00 [facility] PETCT WB INITIAL TREATMENT 2021-09-17 Leann [facility] STRATEGY 14:10:19 [facility] COMPLETE BLOOD COUNT W/ 2021-09-17 Crescencio Cooley V. [facility] DIFFERENTIAL 09:06:00 [facility] COMPREHENSIVE METABOLIC 2021-09-17 Crescencio Cooley [facility]. [facility] PANEL 09:06:00 [facility] MAGNESIUM LEVEL 2021-09-17 [facility] 09:06:00 [facility] PHOSPHORUS LEVEL 2021-09-17 Crescencio Cooley V. [facility] [place] 09:06:00 [facility] PROCALCITONIN 2021-09-17 Bouchra Montalvo [place] [facility] 09:06:00 [facility] RHEUMATOID FACTOR 2021-09-17 Crescencio [facility]oley [facility] QUANTITATIVE 09:06:00 [facility] CYCLIC CITRULLINE ANTIBODY 2021-09-17 Crescencio Cooley V. [facility] IGG 09:06:00 [facility] CREATINE KINASE 2021-09-17 Crescencio [facility] 09:06:00 [facility] Results CBC 2021-09-17 Crescencio [facility] 09:06:00 [facility] MANUAL DIFFERENTIAL 2021-09-17 Crescencio Cooley [facility]. [facility] 09:06:00 [facility] GLUCOSE LEVEL 2021-09-17 Crescencio Cooley V. [facility] 09:06:00 [facility] BLOOD UREA NITROGEN 2021-09-17 Crescencio [facility]oley [facility]. [facility] 09:06:00 [facility] ELECTROLYTE PANEL 2021-09-17 Crescencio Cooley [facility]. [facility] 09:06:00 [facility] SERUM CREATININE 2021-09-17 Crescencio Cooley V. [facility] [place] 09:06:00 [facility] .GLOMERULAR FILTRATION RATE 2021-09-17 Crescencio Cooley V. [facility] 09:06:00 [facility] CALCIUM LEVEL TOTAL 2021-09-17 Crescencio [facility]oley [facility] 09:06:00 [facility] ALBUMIN LEVEL 2021-09-17 Crescencio [facility]oley [facility] 09:06:00 [facility] ALKALINE PHOSPHATASE 2021-09-17 Crescencio [facility] 09:06:00 [facility] ALANINE AMINOTRANSFERASE 2021-09-17 Crescencio Cooley [facility]. [facility] 09:06:00 [facility] ASPARTATE AMINOTRANSFERASE 2021-09-17 Crescencio Cooley V. [facility] 09:06:00 [facility] TOTAL PROTEIN 2021-09-17 Crescencio [facility]oley [facility] 09:06:00 [facility] FRACTIONATED BILIRUBIN 2021-09-17 Crescencio [facility]oley [facility]. [facility] 09:06:00 [facility] EKG, 12-LEAD (PORTABLE) 2021-09-17 Anay [facility] 00:00:[address] [facility] [address] ABDOMEN PELVIS W CONTRAST 2021-09-16 Bouchra Montalvo [facility] 21:57:18 [facility] SEDIMENTATION RATE 2021-09-16 Bouchra Montalvo [facility] NON-AUTOMATED 18:17:00 [facility] C REACTIVE PROTEIN 2021-09-16 Bouchra Montalvo [facility] 18:17:00 [facility] CELL COUNT BODY FLUID 2021-09-16 Vy Moran [facility] 17:10:00 [facility] BODY FLUID CRYSTALS 2021-09-16 Vy Moran [facility] 17:10:00 [facility] WOUND CULTURE W/ GRAM STAIN 2021-09-16 Vy Moran [facility] 17:10:00 [facility] ANAEROBIC CULTURE 2021-09-16 Vy Moran [facility] 17:10:00 [facility] BODY FLUID CRYSTALS W/ PATH 2021-09-16 [facility] REVIEW 17:10:00 [facility] BODY FLUID CRYSTALS PATH 2021-09-16 [facility] REVIEW 17:10:00 [facility] FUNGUS CULTURE W/ SMEAR 2021-09-16 [facility] 17:10:00 [facility] BLOODCULTURE 2021-09-16 Bouchra Montalvo [facility] 16:38:00 [facility] COMPLETE BLOOD COUNT W/ 2021-09-16 Crescencio Cooley [facility] DIFFERENTIAL 10:12:00 [facility] COMPREHENSIVE METABOLIC 2021-09-16 Crescencio Cooley [facility] PANEL 10:12:00 [facility] MAGNESIUM LEVEL 2021-09-16 [facility] 10:12:00 [facility] PHOSPHORUS LEVEL 2021-09-16 Crescencio Cooley V. [facility] [place] 10:12:00 [facility] Results CBC 2021-09-16 [facility] 10:12:00 [facility] MANUAL DIFFERENTIAL 2021-09-16 Crescencio [facility]oley [facility] 10:12:00 [facility] GLUCOSE LEVEL 2021-09-16 [facility] 10:12:00 [facility] BLOOD UREA NITROGEN 2021-09-16 Crescencio [facility]oley [facility] 10:12:00 [facility] ELECTROLYTE PANEL 2021-09-16 Crescencio [facility] 10:12:00 [facility] SERUM CREATININE 2021-09-16 Crescencio Cooley V. [facility] [place] 10:12:00 [facility] .GLOMERULAR FILTRATION RATE 2021-09-16 Crescencio Cooley [facility]. [facility] 10:12:00 [facility] CALCIUM LEVEL TOTAL 2021-09-16 Crescencio Cooley [facility]. [facility] 10:12:00 [facility] ALBUMIN LEVEL 2021-09-16 [facility]cencio [facility] 10:12:00 [facility] ALKALINE PHOSPHATASE 2021-09-16 Crescencio [facility]oley [facility] 10:12:00 [facility] ALANINE AMINOTRANSFERASE 2021-09-16 Crescencio Cooley V. [facility] 10:12:00 [facility] ASPARTATE AMINOTRANSFERASE 2021-09-16 Crescencio Cooley V. [facility] 10:12:00 [facility] TOTAL PROTEIN 2021-09-16 [facility]cencio [facility] 10:12:00 [facility] FRACTIONATED BILIRUBIN 2021-09-16 Crescencio Cooley [facility]. [facility] 10:12:00 [facility] XR KNEE 1 OR 2 VIEWS 2021-09-16 Yina Langston [facility] PORTABLE BILATERAL 07:33:51 [facility] URINE CULTURE 2021-09-16 Bouchra Montalvo [facility] 00:16:00 [facility] URINALYSIS MICROSCOPIC 2021-09-16 Bouchra Montalvo [facility] 00:16:00 [facility] URINALYSIS WITH MICROSCOPIC 2021-09-16 Bouchra Montalvo [facility] IF INDICATED 00:16:00 [facility] EKG, 12-LEAD (PORTABLE) 2021-09-16 Bouchra Montalvo [facility] 00:00:00 [facility] XR CHEST 1 VW 2021-09-15 Bouchra Montalvo [facility] 22:06:20 [facility] PROTHROMBIN TIME 2021-09-15 Armida Damian [facility] [place] 20:18:00 [facility] COMPLETE BLOOD COUNT W/ 2021-09-15 Crescencio Cooley V. [facility] DIFFERENTIAL 08:29:00 [facility] COMPREHENSIVE METABOLIC 2021-09-15 Crescencio Cooley V. [facility] PANEL 08:29:00 [facility] MAGNESIUM LEVEL 2021-09-15 [facility]enc[facility] 08:29:00 [facility] PHOSPHORUS LEVEL 2021-09-15 Crescencio Cooley V. [facility] [place] 08:29:00 [facility] Results CBC 2021-09-15 Crescencio [facility] 08:29:00 [facility] MANUAL DIFFERENTIAL 2021-09-15 Crescencio Cooley [facility] 08:29:00 [facility] GLUCOSE LEVEL 2021-09-15 Crescencio [facility] 08:29:00 [facility] BLOOD UREA NITROGEN 2021-09-15 Crescencio Cooley [facility]. [facility] 08:29:00 [facility] ELECTROLYTE PANEL 2021-09-15 Crescencio Cooley V. [facility] 08:29:00 [facility] SERUM CREATININE 2021-09-15 Crescencio Cooley V. [facility] [place] 08:29:00 [facility] .GLOMERULAR FILTRATION RATE 2021-09-15 Crescencio Cooley V. [facility] 08:29:00 [facility] CALCIUM LEVEL TOTAL 2021-09-15 Crescencio Cooley [facility]. [facility] 08:29:00 [facility] ALBUMIN LEVEL 2021-09-15 [facility]cencio [facility] 08:29:00 [facility] ALKALINE PHOSPHATASE 2021-09-15 Crescencio Cooley V. [facility] 08:29:00 [facility] ALANINE AMINOTRANSFERASE 2021-09-15 Crescencio Cooley V. [facility] 08:29:00 [facility] ASPARTATE AMINOTRANSFERASE 2021-09-15 Crescencio Cooley V. [facility] 08:29:00 [facility] TOTAL PROTEIN 2021-09-15 Crescencio [facility] 08:29:00 [facility] FRACTIONATED BILIRUBIN 2021-09-15 Crescencio Cooley V. [facility] 08:29:00 [facility] COMPLETE BLOOD COUNT W/ 2021-09-14 Crescencio Cooley V. [facility] DIFFERENTIAL 09:19:00 [facility] COMPREHENSIVE METABOLIC 2021-09-14 Crescencio Cooley V. [facility] PANEL 09:19:00 [facility] MAGNESIUM LEVEL 2021-09-14 Crescencio [facility] 09:19:00 [facility] PHOSPHORUS LEVEL 2021-09-14 Crescencio Cooley V. [facility] [place] 09:19:00 [facility] Results CBC 2021-09-14 Crescencio [facility] 09:19:00 [facility] MANUAL DIFFERENTIAL 2021-09-14 Crescencio Cooley V. [place] [facility] 09:19:00 [facility] GLUCOSE LEVEL 2021-09-14 Crescencio [facility] 09:19:00 [facility] BLOOD UREA NITROGEN 2021-09-14 Crescencio Cooley V. [facility] 09:19:00 [facility] ELECTROLYTE PANEL 2021-09-14 Crescencio Cooley V. [facility] 09:19:00 [facility] SERUM CREATININE 2021-09-14 Crescencio Cooley V. [facility] [place] 09:19:00 [facility] .GLOMERULAR FILTRATION RATE 2021-09-14 Crescencio Cooley V. [facility] 09:19:00 [facility] CALCIUM LEVEL TOTAL 2021-09-14 Crescencio Cooley V. [place] [facility] 09:19:00 [facility] ALBUMIN LEVEL 2021-09-14 Crescencio [facility] 09:19:00 [facility] ALKALINE PHOSPHATASE 2021-09-14 Crescencio Cooley [facility]. [facility] 09:19:00 [facility] ALANINE AMINOTRANSFERASE 2021-09-14 Crescencio Cooley V. [facility] 09:19:00 [facility] ASPARTATE AMINOTRANSFERASE 2021-09-14 Crescencio Cooley V. [facility] 09:19:00 [facility] TOTAL PROTEIN 2021-09-14 Crescencio [facility] 09:19:00 [facility] FRACTIONATED BILIRUBIN 2021-09-14 Crescencio Cooley V. [facility] 09:19:00 [facility] CREATINE KINASE 2021-09-13 Crsecencio [facility] 11:50:00 [facility] HEPATITIS B SURFACE ANTIGEN, 2021-09-[address] [facility] SERUM 11:50:00 [facility] HEPATITIS B CORE ANTIBODY 2021-09-13 Crescencio Cooley V. [facility] 11:50:00 [facility] HEPATITIS C VIRUS ANTIBODY 2021-09-13 Crescencio Cooley V. [facility] 11:50:00 [facility] FERRITIN LVL 2021-09-13 Crescencio [facility] 11:50:00 [facility] TRANSFERRIN 2021-09-13 Crescencio [facility] 11:50:00 [facility] IRON LEVEL 2021-09-13 Crescencio [facility] 11:50:00 [facility] THYROID STIMULATING HORMONE 2021-09-13 Crescencio Cooley V. [facility] 11:50:00 [facility] FREE THYROXINE 2021-09-13 Crescencio [facility] 11:50:00 [facility] LIPID PANEL 2021-09-13 Crescencio [facility] 11:50:00 [facility] HEMOGLOBIN A1C 2021-09-13 Crescencio Cooley V. [facility] 11:50:00 [facility] COMPLETE BLOOD COUNT W/ 2021-09-13 Crescencio Cooley V. [facility] DIFFERENTIAL 11:50:00 [facility] COMPREHENSIVE METABOLIC 2021-09-13 Crescencio Cooley V. [facility] PANEL 11:50:00 [facility] MAGNESIUM LEVEL 2021-09-13 Crescencio Cooley V. [facility] 11:50:00 [facility] PHOSPHORUS LEVEL 2021-09-13 Crescencio Cooley V. [facility] [place] 11:50:00 [facility] Results CBC 2021-09-13 Crescencio Cooley V. [facility] 11:50:00 [facility] MANUAL DIFFERENTIAL 2021-09-13 Crescencio Cooley V. [facility] 11:50:00 [facility] GLUCOSE LEVEL 2021-09-13 Crescencio Cooley V. [facility] 11:50:00 [facility] BLOOD UREA NITROGEN 2021-09-13 Crescencio Cooley V. [facility] 11:50:00 [facility] ELECTROLYTE PANEL 2021-09-13 Crescencio Cooley V. [facility] 11:50:00 [facility] SERUM CREATININE 2021-09-13 Crescencio Cooley V. [facility] 11:50:00 [facility] .GLOMERULAR FILTRATION RATE 2021-09-13 Crescencio Cooley V. [facility] 11:50:00 [facility] CALCIUM LEVEL TOTAL 2021-09-13 Crescencio Cooley V. [facility] 11:50:00 [facility] ALBUMIN LEVEL 2021-09-13 Crescencio Cooley V. [facility] 11:50:00 [facility] ALKALINE PHOSPHATASE 2021-09-13 Crescencio Cooley V. [facility] 11:50:00 [facility] ALANINE AMINOTRANSFERASE 2021-09-13 Crescencio Cooley V. [facility] 11:50:00 [facility] ASPARTATE AMINOTRANSFERASE 2021-09-13 Crescencio Cooley V. [facility] 11:50:00 [facility] TOTAL PROTEIN 2021-09-13 Leann Cresc[facility]io [facility] 11:50:00 [facility] FRACTIONATED BILIRUBIN 2021-09-13 Crescencio Cooley V. [facility] 11:50:[address] [facility] [address] CHEST W CONTRAST 2021-09-13 CooleyCrescencio nicole Bri [facility] 00:37:16 [facility] BLOODCULTURE 2021-09-12 Cornelius Jordan [facility] 01:36:00 [facility] EKG, 12-LEAD (PORTABLE) 2021-09-12 Crescencio Cooley V. [facility] 00:00:[address] [facility] [address] ABDOMEN PELVIS W CONTRAST 2021-09-11 Cornelius Jordan [facility] 23:44:00 [facility] URINE CULTURE 2021-09-11 Sylvester [facility] 20:31:00 [facility] URINALYSIS WITH MICROSCOPIC 2021-09-11 Ana Phan [facility] IF INDICATED 20:31:00 [facility] URINALYSIS MICROSCOPIC 2021-09-11 Ana Phan [facility] 20:31:00 [facility] XR CHEST 1 VW 2021-09-11 Cornelius Jordan [facility] 19:36:53 [facility] POC CHEM 8 2021-09-11 Cornelius Jordan [facility] 19:11:00 [facility] XR ABDOMEN AP 2021-09-11 Sylvester [facility] 17:31:55 [facility] POC VENOUS BLOOD GAS + 2021-09-11 Cornelius Jordan [facility] LACTATE 17:18:00 [facility] BLOODCULTURE 2021-09-11 [facility] 17:17[facility]00 [facility] COVID-19 (SARS-COV-2) 2021-09-11 Sylvester [facility] ASYMPTOMATIC-LT 17:17:00 [facility] COMPLETE BLOOD COUNT W/ 2021-09-11 Ana Phan [facility] DIFFERENTIAL 17:17:00 [facility] CALCIUM LEVEL TOTAL 2021-09-11 Sylvester [facility] 17:17:00 [facility] CHLORIDE LEVEL 2021-09-11 Sylvester [facility] 17:17:00 [facility] CARBON DIOXIDE LEVEL 2021-09-11 Sylvester [facility] 17:17:00 [facility] SERUM CREATININE 2021-09-11 Sylvester [facility] 17:17:00 [facility] BLOOD UREA NITROGEN 2021-09-11 Sylvester [facility] 17:17:00 [facility] GLUCOSE, RANDOM 2021-09-11 Sylvester [facility] 17:17:00 [facility] SODIUM LEVEL 2021-09-11 Sylvester [facility] 17:17:00 [facility] POTASSIUM LEVEL 2021-09-11 Sylvester [facility] 17:17:00 [facility] MAGNESIUM LEVEL 2021-09-11 Sylvester [facility] 17:17:00 [facility] PHOSPHORUS LEVEL 2021-09-11 Sylvester [facility] 17:17:00 [facility] ALBUMIN LEVEL 2021-09-11 Sylvester [facility] 17:17:00 [facility] ALKALINE PHOSPHATASE 2021-09-11 Sylvester [facility] 17:17:00 [facility] ALANINE AMINOTRANSFERASE 2021-09-11 Ana Phan [facility] 17:17:00 [facility] ASPARTATE AMINOTRANSFERASE 2021-09-11 Ana Phan [facility] 17:17:00 [facility] FRACTIONATED BILIRUBIN 2021-09-11 Ana Phan [facility] 17:17:00 [facility] AMYLASE LEVEL 2021-09-11 Syl[facility] 17:17:00 [facility] LIPASE LEVEL 2021-09-11 Sylvester [facility] 17:17:00 [facility] LACTATE DEHYDROGENASE 2021-09-11 Sylvester [facility] 17:17:00 [facility] C REACTIVE PROTEIN 2021-09-11 Sylvester [facility] 17:17:00 [facility] PROCALCITONIN 2021-09-11 Sylvester [facility] 17:17:00 [facility] HIV-1/2 ANTIGEN AND 2021-09-11 Sylvester [facility] [place] ANTIBODIES, FOURTH 17:17:00 [facility] Results CBC 2021-09-11 Sylvester [facility] 17:17:00 [facility] MANUAL DIFFERENTIAL 2021-09-11 Sylvester [facility] [place] 17:17:00 [facility] SERUM CREATININE 2021-09-11 Sylvester [facility] 17:17:00 [facility] .GLOMERULAR FILTRATION RATE 2021-09-11 Sylvester [facility] 17:17:00 [facility] ANION GAP 2021-09-11 Sylvester [facility] 17:17:00 [facility] TMP HIV 1/2 AG&AB PATH 2021-09-11 Sylvester [facility] INTERP 17:17:00 [facility] NM BRAIN SPECT W I 123 2021-07-25 Mauro Brown [facility] DATSCAN 19:51:00 MRI BRAIN WO CONTRAST 2021-07-10 Mauro Brown [facility] 21:20:14 XR ELBOW 3+ VW LEFT 2021-07-10 Mauro Brown [facility] 19:25:29 AMMONIA LEVEL 2021-05-23 Mauro Brown [facility] 16:05:00 COPPER LEVEL, SERUM 2021-05-23 Mauro Brown Ho spital 16:05:00 CERULOPLASMIN LEVEL 2021-05-23 Mauro Brown spishmuel 16:05:00 US ABDOMEN LIMITED 2021-05-23 Haider Jewelsalejandra [facility] 00:55:00 [facility] ASSIGNMENT OF BENEFITS 2021-05-23 Doctor Unassigned, [facility] 00:05:41 [facility] CONSENT/REFUSAL FOR 2021-05-23 Doctor Unassigned, [facility] DIAGNOSIS AND TREATMENT 00:04:59 [facility] PHACOEMULSIFICATION OF 2021-02-01 Annie [facility] CATARACT WITH INTRAOCULAR 14:01:00 [facility] LENS IMPLANT ASSIGNMENT OF BENEFITS 2021-01-30 Doctor Unassigned, [facility] 15:50:17 [facility] PHACOEMULSIFICATION OF 2020-12-21 Annie [facility] CATARACT WITH INTRAOCULAR 16:50:00 [facility] LENS IMPLANT DAY SURGERY - ADC 2020-12-21 Doctor Unassigned, [facility] 05:01:00 [facility] ASSIGNMENT OF BENEFITS 2020-12-12 Doctor Unassigned, [facility] 16:09:29 [facility] Cervical laminectomy [facility] Plan of Care Planned Activity Planned Date Details Comments Source Future Scheduled 2022-07-01 COVID-19 Vaccination [facility] [place] Test 09:39:31 (#1) [code = COVID-19 [facility] (#[facility] Center Future Scheduled 2022-06-26 COVID-19 Vaccination [facility] Test 11:53:21 (#1) [code = COVID-19 [facility] (#1)] Center Future Scheduled 2022-06-25 COVID-19 Vaccination [facility] Test 09:09:47 (#1) [code = COVID-19 [facility] (#1)] Center Future Scheduled 2022-06-24 COVID-19 VACCINE (#1) [facility] Test 15:45:13 [code = COVID-19 VACCINE (#1)] Future Scheduled 2022-06-24 65+ [facility] 15:45:13 VACCINE (1 - PCV) [code = 65+ PNEUMOCOCCAL VACCINE (1 - PCV)] Future Scheduled 2022-06-24 [facility] 15:45:13 (procedure) [code = [id number]] Future Scheduled 2022-06-24 [facility]INGLES [facility]ACCINES ([facility] 15:45:13 of 2) [code = SHINGLES VACCINES (1 of 2)] Future Scheduled 2022-06-24 [facility]ENING [facility] 15:45:13 [code = COLONOSCOPY SCREENING] Future Scheduled 2022-06-24 [facility]FLUENZA [facility]ACCINE [facility] 15:45:13 [code = INFLUENZA VACCINE] Future Scheduled 2022-06-24 COVID-19 VACCINE (#1) [facility] 15:45:13 [code = COVID-19 VACCINE (#1)] Future Scheduled 2022-06-24 65+ [facility]AL [facility] 15:45:13 VACCINE (1 - PCV) [code = 65+ PNEUMOCOCCAL VACCINE (1 - PCV)] Future Scheduled 2022-06-24 [facility] 15:45:13 (procedure) [code = 354437752] Future Scheduled 2022-06-24 SHINGLES VACCINES (1 [facility] Hospital Test 15:45:13 of 2) [code = SHINGLES VACCINES (1 of 2)] Future Scheduled 2022-06-24 COLONOSCOPY SCREENING [facility] Hospital Test 15:45:13 [code = COLONOSCOPY SCREENING] Future Scheduled 2022-06-24 INFLUENZA VACCINE Method [facility] Hospital Test 15:45:13 [code = INFLUENZA VACCINE] Future Scheduled 2022-06-24 COVID-19 VACCINE (#1) [facility] Test 15:45:13 [code = COVID-19 VACCINE (#1)] Future Scheduled 2022-06-24 65+ PNEUMOCOCCAL [facility] Hospital Test 15:45:13 VACCINE (1 - PCV) [code = 65+ PNEUMOCOCCAL VACCINE (1 - PCV)] Future Scheduled 2022-06-24 Hepatitis C screening [facility] Test 15:45:13 (procedure) [code = [id number]] Future Scheduled 2022-06-24 SHINGLES VACCINES (1 [facility] Test 15:45:13 of 2) [code = SHINGLES VACCINES (1 of 2)] Future Scheduled 2022-06-24 [facility]ING [facility] Test 15:45:13 [code = COLONOSCOPY SCREENING] Future Scheduled 2022-06-24 INFLUENZA VACCINE [facility] Test 15:45:13 [code = INFLUENZA VACCINE] Future Scheduled 2022-06-24 COVID-19 VACCINE (#1) [facility] Test 15:45:13 [code = COVID-19 VACCINE (#1)] Future Scheduled 2022-06-24 65+ PNEUMOCOCCAL [facility] Test 15:45:13 VACCINE (1 - PCV) [code = 65+ PNEUMOCOCCAL VACCINE (1 - PCV)] Future Scheduled 2022-06-24 [facility] C [facility] Test 15:45:13 (procedure) [code = 039750231] Future Scheduled 2022-06-24 SHINGLES VACCINES (1 Met [facility] Test 15:45:13 of 2) [code = SHINGLES VACCINES (1 of 2)] Future Scheduled 2022-06-24 COLONOSCOPY SCREENING [facility] Test 15:45:13 [code = COLONOSCOPY SCREENING] Future Scheduled 2022-06-24 INFLUENZA VACCINE Method ist Hospital Test 15:45:13 [code = INFLUENZA VACCINE] Future Scheduled 2022-06-24 COVID-19 VACCINE (#1) [facility] Test 15:45:13 [code = COVID-19 VACCINE (#1)] Future Scheduled 2022-06-24 65+ PNEUMOCOCCAL [facility] Hospital Test 15:45:13 VACCINE (1 - PCV) [code = 65+ PNEUMOCOCCAL VACCINE (1 - PCV)] Future Scheduled 2022-06-24 Hepatitis C screening [facility] Test 15:45:13 (procedure) [code = 366322494] Future Scheduled 2022-06-24 SHINGLES VACCINES (1 [facility] Test 15:45:13 of 2) [code = SHINGLES VACCINES (1 of 2)] Future Scheduled 2022-06-24 COLONOSCOPY SCREENING [facility] Test 15:45:13 [code = COLONOSCOPY SCREENING] Future Scheduled 2022-06-24 INFLUENZA VACCINE Method [facility] Hospital Test 15:45:13 [code = INFLUENZA VACCINE] Future Scheduled 2022-06-24 COVID-19 VACCINE (#1) [facility] Test 15:45:13 [code = COVID-19 VACCINE (#1)] Future Scheduled 2022-06-24 65+ PNEUMOCOCCAL [facility] Hospital Test 15:45:13 VACCINE (1 - PCV) [code = 65+ PNEUMOCOCCAL VACCINE (1 - PCV)] Future Scheduled 2022-06-24 Hepatitis C screening Me [facility] Test 15:45:13 (procedure) [code = [id number]] Future Scheduled 2022-06-24 SHINGLES VACCINES (1 [facility] Test 15:45:13 of 2) [code = SHINGLES VACCINES (1 of 2)] Future Scheduled 2022-06-24 [facility] 15:45:13 [code = COLONOSCOPY SCREENING] Future Scheduled 2022-06-24 INFLUENZA VACCINE Method ist Hospital Test 15:45:13 [code = INFLUENZA VACCINE] Future Scheduled 2022-06-24 COVID-19 Vaccination [facility] [place] Test 14:54:59 (#1) [code = COVID-19 [facility] Center Future Scheduled 2022-06-20 COVID-19 Vaccination [facility] [place] Test 11:38:31 (#1) [code = COVID-19 [facility] (#1)] Center Future Scheduled 2022-06-09 COVID-19 VACCINE (#1) [facility] Test 07:21:10 [code = COVID-19 VACCINE (#1)] Future Scheduled 2022-06-09 65+ PNEUMOCOCCAL [facility] Hospital Test 07:21:10 VACCINE (1 - PCV) [code = 65+ PNEUMOCOCCAL VACCINE (1 - PCV)] Future Scheduled 2022-06-09 Hepatitis C screening [facility] Test 07:21:10 (procedure) [code = [id number]] Future Scheduled 2022-06-09 SHINGLES VACCINES (1 [facility] Test 07:21:10 of 2) [code = SHINGLES VACCINES (1 of 2)] Future Scheduled 2022-06-09 COLONOSCOPY SCREENING [facility] Test 07:21:10 [code = COLONOSCOPY SCREENING] Future Scheduled 2022-06-09 INFLUENZA VACCINE Method ist Hospital Test 07:21:10 [code = INFLUENZA VACCINE] Future Scheduled 2022-05-15 COVID-19 Vaccination [facility] [place] Test 11:49:58 (#1) [code = COVID-19 [facility] (#1)] Center Future Scheduled 2022-05-14 COVID-19 Vaccination [facility] [place] Test 06:28:55 (#1) [code = COVID-19 [facility] (#1)] Center Future Scheduled 2022-05-10 COVID-19 Vaccination [facility] [place] Test 11:58:16 (#1) [code = COVID-19 [facility] (#1)] Center Future Scheduled 2022-05-08 COVID-19 VACCINE (#1) [facility] Test 06:34:53 [code = COVID-19 VACCINE (#1)] Future Scheduled 2022-05-08 65+ PNEUMOCOCCAL [facility] Hospital Test 06:34:53 VACCINE (1 - PCV) [code = 65+ PNEUMOCOCCAL VACCINE (1 - PCV)] Future Scheduled 2022-05-08 SHINGLES VACCINES (1 [facility] Test 06:34:53 of 2) [code = SHINGLES VACCINES (1 of 2)] Future Scheduled 2022-05-08 COLONOSCOPY SCREENING [facility] Test 06:34:53 [code = COLONOSCOPY SCREENING] Future Scheduled 2022-05-08 HEPATITIS B VACCINES [facility] Test 06:34:53 (1 of 3 - Risk 3-dose series) [code = HEPATITIS B VACCINES (1 of 3 - Risk 3-dose series)] Future Scheduled 2022-05-08 INFLUENZA VACCINE Method [facility] Test 06:34:53 [code = INFLUENZA VACCINE] Future Scheduled 2022-05-08 COVID-19 VACCINE (#1) [facility] Test 06:34:53 [code = COVID-19 VACCINE (#1)] Future Scheduled 2022-05-08 65+ PNEUMOCOCCAL Method[facility] Hospital Test 06:34:53 VACCINE (1 - PCV) [code = 65+ PNEUMOCOCCAL VACCINE (1 - PCV)] Future Scheduled 2022-05-08 SHINGLES VACCINES (1 [facility] Test 06:34:53 of 2) [code = SHINGLES VACCINES (1 of 2)] Future Scheduled 2022-05-08 COLONOSCOPY SCREENING [facility] Test 06:34:53 [code = COLONOSCOPY SCREENING] Future Scheduled 2022-05-08 HEPATITIS B VACCINES [facility] Test 06:34:53 (1 of 3 - Risk 3-dose series) [code = HEPATITIS B VACCINES (1 of 3 - Risk 3-dose series)] Future Scheduled 2022-05-08 INFLUENZA VACCINE Method is Hospital Test 06:34:53 [code = INFLUENZA VACCINE] Future Scheduled 2022-05-08 COVID-19 VACCINE (#1) [facility] Test 06:34:53 [code = COVID-19 VACCINE (#1)] Future Scheduled 2022-05-08 65+ PNEUMOCOCCAL [facility] Hospital Test 06:34:53 VACCINE (1 - PCV) [code = 65+ PNEUMOCOCCAL VACCINE (1 - PCV)] Future Scheduled 2022-05-08 SHINGLES VACCINES (1 Met [facility] Test 06:34:53 of 2) [code = SHINGLES VACCINES (1 of 2)] Future Scheduled 2022-05-[address] [facility] Test 06:34:53 [code = COLONOSCOPY SCREENING] Future Scheduled 2022-05-08 HEPATITIS B VACCINES Met [facility] Test 06:34:53 (1 of 3 - Risk 3-dose series) [code = HEPATITIS B VACCINES (1 of 3 - Risk 3-dose series)] Future Scheduled 2022-05-08 INFLUENZA VACCINE Method [facility] Hospital Test 06:34:53 [code = INFLUENZA VACCINE] Encounters Start End Encounter Admission Attending Care Care Encounter Source Date/Time Date/Time Type Type Clinicians Facility Department ID 2022-06-24 Inpatient AMIRA CERVANTES, MAK CORADO [id number] 18:49:02 [facility] Jaspal o n 2022-05-10 Inpatient AMIRA WHARTON, MAK CORADO [id number] 18:43:41 [facility] Shayo lewis 2022-05-07 Outpatient SYSTEM, MAK CORADO [id number] 13:17:43 PROVIDER Jaspal o n 2022-02-27 Outpatient SYSTEM, MAK CORADO [id number] 15:38:51 PROVIDER Jaspal o n 2021-11-24 Outpatient SYSTEM, MAK CORADO [id number] 11:50:18 PROVIDER Jaspal o n 2021-09-23 Inpatient AMIRA MUNGUIA MDA MDA [id number] 13:02:46 RAFAEL Shayo lewis 2021-09-22 Inpatient AMIRA MUNROE, MAK CORADO [id number] 16:42:18 Rasheedao lewis 2021-02-27 Outpatient R ANNIE, [facility] OPH [id number] Univers 02:18:21 [place] ity of [facility] 2022-06-18 2022-06-25 [facility] Curly Gomes 1.2.840.1 [id number] Univers 13:36:00 16:08:00 Encounter Joey Cervantes 87585.1.1 ity of [place], Simrit 3.412.2.7 [place] .3.996109 MD Boles8 [facility] 2022-06-18 2022-06-25 [facility] Curly Gomes 1.2.840.1 [id number] Univers 13:36:00 16:08:00 Encounter Joey Cervantes 95163.1.1 ity of [place], Simrit 3.412.2.7 [place] .3.082517 MD Smith [facility] 2022-06-25 2022-06-25 Orders Ander 1.2.840.1 [id number] Univers 00:00:00 00:00:00 Only Joanie 99664.1.1 ity of 3.412.2.7 [place] .3.800324 MD Boles8 [facility] 2022-06-25 2022-06-25 Orders Ander 1.2.840.1 [id number] Univers 00:00:00 00:00:00 Only Joanie 60674.1.1 ity of 3.412.2.7 [place] .3.502543 MD Boles8 [facility] 2022-06-25 2022-06-25 Orders Ander 1.2.840.1 [id number] Univers 00:00:00 00:00:00 Only Joanie 93894.1.1 ity of 3.412.2.7 [place] .3.757426 MD Boles8 [facility] 2022-06-25 2022-06-25 Orders Ander 1.2.840.1 [id number] Univers 00:00:00 00:00:00 Only Joanie 43663.1.1 ity of 3.412.2.7 [place] .3.161074 .8 [facility] 2022-06-24 2022-06-24 Inpatient AMIRA GREER MDA MDA [id number] MD 18:50:06 20:35:23 CROW Jaspal o n 2022-06-24 2022-06-24 Inpatient AMIRA CERVANTES MDA MDA [id number] MD 20:27:48 20:27:56 [facility] Julio Cesar so n 2022-06-24 2022-06-24 Inpatient AMIRA CERVANTES MDA MDA [id number] MD 19:04:34 20:11:49 [facility] Julio Cesar so n 2022-06-24 2022-06-24 Inpatient AMIRA GREER MDA MDA [id number] MD 14:25:25 14:35:48 CROW burden n 2022-06-24 2022-06-24 Orders Percy, 1.2.840.1 [id number] [id number] Univers 00:00:00 00:00:00 Only Crow [place] 02299.1.1 it y of 3.412.2.7 [place] .3.846957 .[facility] 2022-06-24 2022-06-24 Orders Percy, 1.2.840.1 [id number] 1103 [id number] Univers 00:00:00 00:00:00 Only Crow [place] 82899.1.1 it y of 3.412.2.7 [place] .3.480135 .[facility] 2022-06-20 2022-06-20 Inpatient AMIRA PARIKH MDA MDA [id number] MD 11:22:46 12:16:59 KAILEY Shay o n 2022-06-20 2022-06-20 Inpatient AMIRA CERVANTES MDA MDA [id number] MD 11:50:27 12:00:06 [facility] Julio Cesar so n 2022-06-18 2022-06-18 Follow-Up Spashawna, 1.2.840.1 [id number] 11 [id number] [facility] [place] [facility] 13:00:00 13:33:04 [place] 54501.1.1 ity of 3.412.2.7 [place] .3.610423 MD Smith [facility] 2022-06-18 2022-06-18 Follow-Up EL Debbie, 1.2.840.1 [id number] 11 [id number] Univers 13:00:00 13:33:04 [place] 63286.1.1 ity of 3.412.2.7 [place] .3.634788 MD Smith [facility] 2022-06-18 2022-06-18 Travel 1.2.840.1 1.2.259.334 8807 [id number] Univers 00:00:00 00:00:00 59134.1.1 350.1.13.41 ity of 3.412.2.7 [place].3.698 [place] .3.277645 084.8 MD Smith [facility] 2022-06-18 2022-06-18 Travel 1.2.840.1 1.2.550.363 0411 [id number] Univers 00:00:00 00:00:00 52609.1.1 350.1.13.41 ity of 3.412.2.7 [place]7.3.698 [place] .3.521388 084.Bonnie Smith [facility] 2022-06-14 2022-06-14 Orders Manager Lighting, 1.2.840.1 [id number] Univers 00:00:00 00:00:00 Only Facundo 89437.1.1 ity of 3.412.2.7 [place] .3.614292 MD Smith [facility] 2022-06-14 2022-06-14 Refmackenzie Meehan, 1.2.840.1 [id number] Univers 00:00:00 00:00:00 Gracy G 12019.1.1 ity of 3.412.2.7 [place] .3.829325 MD Smith [facility] 2022-06-14 2022-06-14 Orders Manager Lighting, 1.2.840.1 [id number] Univers 00:00:00 00:00:00 Only Facundo 21817.1.1 ity of 3.412.2.7 [place] .3.339955 MD Boles8 [facility] 2022-06-14 2022-06-14 Jc Meehan, 1.2.840.1 [id number] 3854 Univers 00:00:00 00:00:00 Gracy G 34174.1.1 ity of 3.412.2.7 [place] .3.083386 MD Boles8 [facility] 2022-06-07 2022-06-07 Rina Linkan, 1.2.840.1 [id number] 7502 Univers 00:00:00 00:00:00 Only Adiya S 35656.1.1 ity of 3.412.2.7 [place] .3.424797 MD Boles8 [facility] 2022-06-07 2022-06-07 Rina Carbajal, 1.2.840.1 [id number] 5591 Univers 00:00:00 00:00:00 Only Adiya S 85157.1.1 ity of 3.412.2.7 [place] .3.228258 MD Boles8 [facility] 2022-06-04 2022-06-04 [facility], 1.2.840.1 [id number] Univers 11:36:32 23:59:00 Encounter Xinxin 24497.1.1 it y of 3.412.2.7 [place] .3.919896 MD Boles8 [facility] 2022-06-04 2022-06-04 [facility], 1.2.840.1 [id number] [id number] Univers 11:36:32 23:59:00 Encounter Xinxin 65822.1.1 it y of 3.412.2.7 [place] .3.372281 MD Boles8 [facility] 2022-06-04 2022-06-04 Follow-Up Dillan 1.2.840.1 [id number] [id number] Univers 14:30:00 16:00:00 Severo 45529.1.1 ity of P 3.412.2.7 [place] .3.157983 MD Smtih [facility] 2022-06-04 2022-06-04 Follow-Up AMIRA Munroe, 1.2.840.1 [id number] [id number] Univers 14:30:00 16:00:00 Severo 90402.1.1 ity of P 3.412.2.7 [place] .3.329802 MD Smith [facility] 2022-06-04 2022-06-04 Travel 1.2.840.1 1.2.129.521 9504 [id number] Univers 00:00:00 00:00:00 72586.1.1 350.1.13.41 ity of 3.412.2.7 [place]7.3.698 [place] .3.227931 084.8 MD Smith [facility] 2022-06-04 2022-06-04 Travel 1.2.840.1 1.2.774.788 4538 [id number] Univers 00:00:00 00:00:00 34303.1.1 350.1.13.41 ity of 3.412.2.7 [place]7.3.698 [place] .3.619229 084.Bonnie Smith [facility] 2022-05-15 2022-05-15 Telephone [facility], 1.2.840.1 [id number] 11 [id number] Univers 00:00:00 00:00:00 Astrid 66685.1.1 ity of 3.412.2.7 [place] .3.595838 MD Smith [facility] 2022-05-15 2022-05-15 Telephone [facility], 1.2.840.1 [id number] 11 [id number] Univers 00:00:00 00:00:00 Astrid 75544.1.1 ity of 3.412.2.7 [place] .3.940927 MD Smith [facility] 2022-05-06 2022-05-13 [facility] Karel Gonzales 1.2.840.1 [id number] 10 [id number] Univers 02:06:00 14:19:00 Yodit Valenzuela 11494.1.1 ity of Mo Veronica 3.412.2.7 Luis Antonio Henning3.154050 MD Boles8 [facility] 2022-05-06 2022-05-13 [facility] Karel Gonzales 1.2.840.1 [id number] 10 [id number] Univers 02:06:00 14:19:00 [facility] KeanuYodit 03339.1.1 ity of [place] Veronica 3.412.2.7 Luis Antonio Henning3.568319 MD Boles8 [facility] 2022-05-13 2022-05-13 Orders Michael, 1.2.840.1 [id number] [id number] Univers 00:00:00 00:00:00 Only Khadra 66422.1.1 ity of 3.412.2.7 [place] .3.599183 MD Boles8 [facility] 2022-05-13 2022-05-13 Orders Michael, 1.2.840.1 [id number] 1101 [id number] Univers 00:00:00 00:00:00 Only Khadra 71231.1.1 ity of 3.412.2.7 [place] .3.170573 MD Boles8 [facility] 2022-05-11 2022-05-11 Orders Lobito, 1.2.840.1 [id number] Univers 00:00:00 00:00:00 Only Sam 50895.1.1 ity of 3.412.2.7 [place] .3.292291 MD Boles8 [facility] 2022-05-11 2022-05-11 Orders Lobito, 1.2.840.1 [id number] 09982 82097 Univers 00:00:00 00:00:00 Only Sam 70376.1.1 ity of 3.412.2.7 [place] .3.291998 MD Boles8 [facility] 2022-05-10 2022-05-10 Jihan WHARTON MDA MDA [id number] 18:33:59 20:46:46 ALPA saucedo 2022-05-10 2022-05-10 Orders Wharton, 1.2.840.1 [id number] Univers 00:00:00 00:00:00 Only Xinxin 42680.1.1 ity of 3.412.2.7 [place] .3.434157 MD Smith [facility] 2022-05-10 2022-05-10 Orders Wharton, 1.2.840.1 [id number] Univers 00:00:00 00:00:00 Only Xinxin 35436.1.1 ity of 3.412.2.7 [place] .3.497448 MD Smith [facility] 2022-05-10 2022-05-10 Travel 1.2.840.1 1.2.507.935 9899 [id number] Univers 00:00:00 00:00:00 04621.1.1 350.1.13.41 ity of 3.412.2.[place]7.3.698 [place] .3.081439 084.8 MD Smith [facility] 2022-05-10 2022-05-10 Travel 1.2.840.1 1.2.803.484 2642 [id number] Univers 00:00:00 00:00:00 43781.1.1 350.1.13.41 ity of 3.412.2.7 [place]7.3.698 [place] .3.781321 084.8 MD Smith [facility] 2022-05-10 2022-05-10 Orders Wharton, 1.2.840.1 [id number] 0775 Univers 00:00:00 00:00:00 Only Xinxin 59277.1.1 ity of 3.412.2.7 [place] .3.398866 MD Smith [facility] 2022-05-10 2022-05-10 Orders Wharton, 1.2.840.1 [id number] Univers 00:00:00 00:00:00 Only Xinxin 18511.1.1 ity of 3.412.2.7 [place] .3.461603 MD Smith [facility] 2022-05-09 2022-05-09 Inpatient AMIRA WHARTON MDA MDA [id number] 18:05:44 18:13:39 ALPA Shay jenise n 2022-05-09 2022-05-09 Inpatient AMIRA WHARTON MDA MDA [id number] 16:38:05 18:13:34 ABDIRAHMANABDIRAHMAN Shay jenise n 2022-05-08 2022-05-08 Telephone Reed, 1.2.840.1 [id number] Methodi 00:00:00 00:00:[address] 3.430.2.7 Hospit a .3.032972 l .8 2022-05-08 2022-05-08 Telephone Reed, 1.2.840.1 [id number] Methodi 00:00:00 00:00:[address] 3.430.2.7 Hospit a .3.991519 l .8 2022-05-06 2022-05-06 Travel 1.2.840.1 1.2.489.843 1414 [id number] Univers 00:00:00 00:00:00 25819.1.1 350.1.13.41 ity of 3.412.2.[place]7.3.698 [place] .3.125821 084.8 MD Boles8 [facility] 2022-05-06 2022-05-06 Travel 1.2.840.1 1.2.310.896 4046 [id number] Univers 00:00:00 00:00:00 18336.1.1 350.1.13.41 ity of 3.412.2.7 [place]7.3.698 [place] .3.610221 084.8 MD Smith [facility] 2022-05-03 2022-05-03 Refill Esme, 1.2.840.1 [id number] 6224 Univers 00:00:00 00:00:00 Facundo 06876.1.1 ity of 3.412.2.7 [place] .3.740189 MD Smith [facility] 2022-05-03 2022-05-03 Refill Manager Lighting, 1.2.840.1 [id number] 8877 Univers 00:00:00 00:00:00 Fcaundo 29476.1.1 ity of 3.412.2.7 [place] .3.936212 MD Boles8 [facility] 2022-05-02 2022-05-02 Office [facility], 1.2.840.1 [id number] 9618 Methodi 09:35:00 09:50:23 Visit Mauro Danielson 63559.1.[address] 3.430.2.7 Hospit a .3.770149 l .8 2022-05-02 2022-05-02 Office [facility], 1.2.840.1 [id number] 5947 Methodi 09:35:00 09:50:23 Visit Mauro Danielson 89725.1.[address] 3.430.2.7 Hospit a .3.957200 l .8 2022-05-02 2022-05-02 Travel 1.2.840.1 1.2.226.059 4551 596009 Methodi 00:00:00 00:00:[address] 3.430.2.7 0.2.7.3.698 Ho spita .3.323452 084.8 l .8 2022-05-02 2022-05-02 Travel 1.2.840.1 1.2.078.256 3330 141011 Methodi 00:00:00 00:00:[address] 3.430.2.7 0.2.7.3.698 Ho spita .3.315935 084.8 l .8 2022-04-18 2022-04-18 Orders Manager Lighting, 1.2.840.1 [id number] 6488 Univers 00:00:00 00:00:00 Only Facundo 60487.1.1 ity of 3.412.2.7 [place] .3.142355 .8 [facility] 2022-04-18 2022-04-18 Jc Meehan, 1.2.840.1 [id number] [id number] 5825 Univers 00:00:00 00:00:00 Gracy G 22464.1.1 ity of 3.412.2.7 [place] .3.655940 MD Boles8 [facility] 2022-04-18 2022-04-18 Orders Manager Lighting, 1.2.840.1 [id number] 9543 Univers 00:00:00 00:00:00 Only Facundo 06148.1.1 ity of 3.412.2.7 [place] .3.509075 MD Boles8 [facility] 2022-04-18 2022-04-18 Jc Meehan, 1.2.840.1 [id number] 9074 Univers 00:00:00 00:00:00 Gracy Valle 84521.1.1 ity of 3.412.2.7 [place] .3.416535 MD Boles8 [facility] 2022-03-29 2022-03-29 Yodit Munoz 1.2.840.1 [id number] 11 [id number] Univers 00:00:00 00:00:00 55601.1.1 ity of 3.412.2.7 [place] .3.323757 MD Boles8 [facility] 2022-03-29 2022-03-29 Yodit Munoz 1.2.840.1 [id number] 11 [id number] Univers 00:00:00 00:00:00 59442.1.1 ity of 3.412.2.7 [place] .3.699609 MD Boles8 [facility] 2022-03-25 2022-03-25 Orders Cooley 1.2.840.1 [id number] 4027 Univers 00:00:00 00:00:00 Only Rinaldi, 38039.1.1 ity of Jihan 3.412.2.7 [place] .3.015521 MD Boles8 [facility] 2022-03-25 2022-03-25 Orders Cooley 1.2.840.1 [id number] 4063 Univers 00:00:00 00:00:00 Only Rinaldi, 57737.1.1 ity of Jihan 3.412.2.7 [place] .3.971417 MD Boles8 [facility] 2022-03-19 2022-03-19 [facility], 1.2.840.1 [id number] 05210 49231 Univers 13:24:49 23:59:00 Encounter Karmila 95123.1.1 it y of [place] 3.412.2.7 [place] .3.824028 .8 [facility] 2022-03-19 2022-03-19 [facility] Farrell, 1.2.840.1 [id number] Univers 13:24:49 23:59:00 Encounter Karmila 91417.1.1 it y of [place] 3.412.2.7 [place] .3.490733 .8 [facility] 2022-03-19 2022-03-19 Follow-Up Dillan, 1.2.840.1 [id number] 1099 [id number] Univers 15:45:00 18:00:32 Severo 71628.1.1 ity of P 3.412.2.7 [place] .3.572712 .8 [facility] 2022-03-19 2022-03-19 Follow-Up AMIRA Munroe, 1.2.840.1 [id number] 1099 [id number] Univers 15:45:00 18:00:32 Severo 05254.1.1 ity of P 3.412.2.7 [place] .3.530878 .8 [facility] 2022-03-19 2022-03-19 Consult Natalia, 1.2.840.1 [id number] Univers 14:00:00 16:34:35 Tsuyoshi 34055.1.1 ity of 3.412.2.7 [place] .3.342426 MD Boles8 [facility] 2022-03-19 2022-03-19 Consult AMIRA Fisher, 1.2.840.1 [id number] 81022 66904 Univers 14:00:00 16:34:35 Tsuyoshi 99811.1.1 ity of 3.412.2.7 [place] .3.744180 MD Smith [facility] 2022-03-19 2022-03-19 Travel 1.2.840.1 1.2.638.094 1412 [id number] [facility] 00:00:00 00:00:00 20864.1.1 350.1.13.41 ity of 3.412.2.7 2.[place].3.698 [place] .3.973064 084.8 MD Smith [facility] 2022-03-19 2022-03-19 Travel 1.2.840.1 1.2.480.825 7133 [id number] [facility] [place] [facility] 00:00:00 00:00:00 01342.1.1 350.1.13.41 ity of 3.412.2.7 2.[place]7.3.698 [place] .3.019962 084.8 MD Smith [facility] 2022-03-18 2022-03-18 Ancillary Cooley 1.2.840.1 [id number] 1099 [id number] Univers 12:20:00 14:45:00 Procedure Rinaldi, 27108.1.1 it y of Jihan 3.412.2.7 [place] .3.115065 MD Smith [facility] 2022-03-18 2022-03-18 Ancillary EL Cooley 1.2.840.1 [id number] 1099 [id number] [facility] 12:20:00 14:45:00 Procedure Rinaldi, 18048.1.1 it y of Jihan 3.412.2.7 [place] .3.562764 MD Smith [facility] 2022-03-18 2022-03-18 Travel 1.2.840.1 1.2.142.322 4051 [id number] [facility] 00:00:00 00:00:00 13785.1.1 350.1.13.41 ity of 3.412.2.7 2.[place]7.3.698 [place] .3.777740 084.8 MD Smith [facility] 2022-03-182022-03-18 Travel 1.2.840.1 1.2.689.188 6989 [id number] Univers 00:00:00 00:00:00 56576.1.1 350.1.13.41 ity of 3.412.2.7 2.[place]7.3.698 [place] .3.675176 084.8 MD Smith [facility] 2022-03-16 2022-03-16 Emergency Lb [place] 1.2.840.1 [id number] 054 [id number] Univers 00:28:00 06:13:00 Ralph Brown 70954.1.1 ity of Shane Saenz 3.412.2.7 [place] .3.919438 MD Smith [facility] 2022-03-16 2022-03-16 Emergency UR Lb [place] 1.2.840.1 [id number] [id number] Univers 00:28:00 06:13:00 Ralph Brown 56188.1.1 ity of Shane Saenz 3.412.2.7 [place] .3.866346 MD Smith [facility] 2022-03-16 2022-03-16 Travel 1.2.840.1 1.2.007.095 3753 [id number] [facility] [place] [facility] 00:00:00 00:00:00 06387.1.1 350.1.13.41 ity of 3.412.2.7 2.[place]7.3.698 [place] .3.880698 084.8 MD Smith [facility] 2022-03-16 2022-03-16 Travel 1.2.840.1 1.2.066.616 5339 [id number] Univers 00:00:00 00:00:00 13671.1.1 350.1.13.41 ity of 3.412.2.7 [place].3.698 [place] .3.720[place] 084.8 MD Smith [facility] 2022-03-06 2022-03-06 Orders Cooley 1.2.840.1 [id number] 106738 5013 Univers 00:00:00 00:00:00 Only Rinaldi, 38535.1.1 ity of Jihan 3.412.2.7 [place] .3.003747 MD [facility] 2022-03-06 2022-03-06 Rina Cooley 1.2.840.1 [id number] [id number] 7729 Univers 00:00:00 00:00:00 Only Rinaldi, 49484.1.1 ity of Jihan 3.412.2.7 [place] .3.653330 MD [facility] 2022-03-01 2022-03-01 Jc Meehan 1.2.840.1 [id number] [id number] 0622 Univers 00:00:00 00:00:00 Gracy G 55222.1.1 ity of 3.412.2.7 [place] .3.199786 MD [facility] 2022-03-01 2022-03-01 Jc Meehan 1.2.840.1 [id number] 4709 Univers 00:00:00 00:00:00 Gracy G 08375.1.1 ity of 3.412.2.7 [place] .3.033304 MD [facility]8 [facility] 2022-02-27 2022-02-27 Curly Garibay 1.2.840.1 10 [id number] Univers 08:00:00 14:23:25 Chanel Weiss 25942.1.1 ity of 3.412.2.7 [place] .3.376405 MD [facility]8 [facility] 2022-02-27 2022-02-27 Infusion EL Curly Fay 1.2.840.1 10 [id number] Univers 08:00:00 14:23:25 Chanel Weiss 05302.1.1 ity of 3.412.2.7 [place] .3.567555 MD [facility]8 [facility] 2022-02-27 2022-02-27 Rina Philip 1.2.840.1 [id number] 343917 5293 Univers 00:00:00 00:00:00 Only Doris 88203.1.1 ity of 3.412.2.7 [place] .3.480559 MD Smith [facility] 2022-02-27 2022-02-27 Travel 1.2.840.1 1.2.545.688 8407 467344 Univers 00:00:00 00:00:00 94279.1.1 350.1.13.41 ity of 3.412.2.7 [place]7.3.698 [place]3.442725 084.8 MD [facility]8 [facility] 2022-02-27 2022-02-27 Rina Philip, 1.2.840.1 [id number] [id number] 1043 Univers 00:00:00 00:00:00 Only Doris 55514.1.1 ity of 3.412.2.7 [place] .3.597985 MD Smith [facility] 2022-02-27 2022-02-27 Travel 1.2.840.1 1.2.407.849 8498 328830 Univers 00:00:00 00:00:00 65713.1.1 350.1.13.41 ity of 3.412.2.7 [place].7.3.698 [place] .3.153210 084.8 MD Smith [facility] 2022-02-26 2022-02-26 [facility] Severo Munroe P 1.2.840.1 101 504122 [id number] Univers 14:30:29 23:59:00 Encounter Josefa Castillo 56769.1.1 ity of 3.412.2.7 [place] .3.855657 MD Smith [facility] 2022-02-26 2022-02-26 [facility] Severo Munroe P 1.2.840.1 101 305328 [id number] Univers 14:30:29 23:59:00 Encounter Josefa Castillo 07023.1.1 ity of 3.412.2.7 [place] .3.797870 MD Smith [facility] 2022-02-26 2022-02-26 [facility] Severo Munroe P 1.2.840.1 101 112041 [id number] Univers 11:48:54 14:29:00 Encounter Josefa Castillo 57145.1.1 ity of 3.412.2.7 [place] .3.497974 MD Smith [facility] 2022-02-26 2022-02-26 [facility] Severo Munroe P 1.2.840.1 101 108412 [id number] Univers 11:48:54 14:29:00 Encounter Josefa Castillo 84992.1.1 ity of 3.412.2.7 [place] .3.684721 MD [facility]8 [facility] 2022-02-26 2022-02-26 Office Dillan, 1.2.840.1 [id number] 1451 Univers 13:00:00 13:47:25 Visit Severo 11046.1.1 ity of P 3.412.2.7 [place] .3.779353 MD Smith [facility] 2022-02-26 2022-02-26 Office Dillan, 1.2.840.1 [id number] 202527 3658 Univers 13:00:00 13:47:25 Visit Severo 96736.1.1 ity of P 3.412.2.7 [place] .3.244210 MD Smith [facility] 2022-02-26 2022-02-26 [facility], 1.2.840.1 [id number] 1 [id number] Univers 10:59:17 11:47:00 Encounter Curly 43488.1.1 i ty of 3.412.2.7 [place] .3.940925 MD [facility]8 [facility] 2022-02-26 2022-02-26 [facility], 1.2.840.1 [id number] 1 [id number] Univers 10:59:17 11:47:00 Encounter Cruly 74154.1.1 i ty of 3.412.2.7 [place] .3.686437 MD Smith [facility] 2022-02-26 2022-02-26 Travel 1.2.840.1 1.2.845.380 1825 005267 Univers 00:00:00 00:00:00 84374.1.1 350.1.13.41 ity of 3.412.2.7 2.[place].7.3.698 [place] .3.584206 084.8 MD Smith [facility] 2022-02-26 2022-02-26 Travel 1.2.840.1 1.2.477.134 2075 917491 Univers 00:00:00 00:00:00 88013.1.1 350.1.13.41 ity of 3.412.2.7 2.[place].7.3.698 [place] .3.292114 084.8 MD Smith [facility] 2022-02-07 2022-02-07 Curly Garibay 1.2.840.1 10 [id number] Univers 08:00:00 15:23:21 Johanne Galaviz 66336.1.1 ity of 3.412.2.7 [place] .3.037555 MD Smith [facility] 2022-02-07 2022-02-07 Infusion Curly Patel 1.2.840.1 10 [id number] Univers 08:00:00 15:23:21 Johanne Galaviz 06563.1.1 ity of 3.412.2.7 [place] .3.207581 MD Smith [facility] 2022-02-07 2022-02-07 Travel 1.2.840.1 1.2.244.186 4873 144104 Univers 00:00:00 00:00:00 18807.1.1 350.1.13.41 ity of 3.412.2.7 2.[place].7.3.698 [place] .3.386955 084.8 MD Smith [facility] 2022-02-07 2022-02-07 Travel 1.2.840.1 1.2.024.366 8799 998230 Univers 00:00:00 00:00:00 07514.1.1 350.1.13.41 ity of 3.412.2.7 2.2.7.3.698 [place] .3.684813 084.8 MD Smith [facility] 2022-02-06 2022-02-06 [facility] P 1.2.840.1 101 449292 [id number] Univers 15:59:48 23:59:00 Encounter Leyla Reyna 90100.1.1 ity of 3.412.2.7 [place] .3.304208 MD Boles8 [facility] 2022-02-06 2022-02-06 [facility] P 1.2.840.1 101 254958 [id number] Univers 15:59:48 23:59:00 Encounter Leyla Reyna 96984.1.1 ity of 3.412.2.7 [place] .3.337739 MD Boles8 [facility] 2022-02-06 2022-02-06 [facility] P 1.2.840.1 101 [id number] Univers 15:00:40 15:58:00 Encounter Leyla Reyna 14621.1.1 ity of 3.412.2.7 [place] .3.480136 MD Smith [facility] 2022-02-06 2022-02-06 [facility] P 1.2.840.1 101 518402 [id number] Univers 15:00:40 15:58:00 Encounter Leyla Reyna 66046.1.1 ity of 3.412.2.7 [place] .3.767928 MD Boles8 [facility] 2022-02-06 2022-02-06 [facility], 1.2.840.1 [id number] 758 [id number] Univers 11:12:47 14:59:00 Encounter Anila 21012.1.1 it y of 3.412.2.7 [place] .3.209004 MD Boles8 [facility] 2022-02-06 2022-02-06 Hospital [facility], 1.2.840.1 [id number] 134 [id number] Univers 11:12:47 14:59:00 Encounter Anila 47827.1.1 it y of 3.412.2.7 [place] .3.387253 MD Smith [facility] 2022-02-06 2022-02-06 Office Curly Fay 1.2.840.1 101 [id number] Univers 13:20:00 13:40:00 Visit Savana Vizcarra 62279.1.1 ity of 3.412.2.7 [place] .3.208919 MD Smith [facility] 2022-02-06 2022-02-06 Office Curly Patel 1.2.840.1 101 251463 [id number] Univers 13:20:00 13:40:00 Visit Abilio VizcarraRivas 22098.1.1 ity of 3.412.2.7 [place] .3.893695 MD Smith [facility] 2022-02-06 2022-02-06 Travel 1.2.840.1 1.2.253.431 5851 431742 Univers 00:00:00 00:00:00 55180.1.1 350.1.13.41 ity of 3.412.2.7 2.2.7.3.698 [place] .3.103497 084.8 MD Smith [facility] 2022-02-06 2022-02-06 Travel 1.2.840.1 1.2.661.750 9190 267306 Univers 00:00:00 00:00:00 07064.1.1 350.1.13.41 ity of 3.412.2.7 2.2.7.3.698 [place] .3.624171 084.8 MD Smith [facility] 2022-02-05 2022-02-05 Follow-Up Debbie, 1.2.840.1 [id number] 10 [id number] Univers 13:00:00 13:37:40 [place] 75647.1.1 ity of 3.412.2.7 [place] .3.625846 MD Smith [facility] 2022-02-05 2022-02-05 Follow-Up AMIRA Lewis, 1.2.840.1 [id number] 10 [id number] [facility] [place] [facility] 13:00:00 13:37:40 [place] 52071.1.1 ity of 3.412.2.7 [place] .3.383518 MD Smith [facility] 2022-02-05 2022-02-05 Travel 1.2.840.1 1.2.201.878 4250 637846 Univers 00:00:00 00:00:00 72598.1.1 350.1.13.41 ity of 3.412.2.7 2.2.7.3.698 [place] .3.051511 084.8 MD Smith [facility] 2022-02-05 2022-02-05 Travel 1.2.840.1 1.2.589.536 9414 993636 Univers 00:00:00 00:00:00 21530.1.1 350.1.13.41 ity of 3.412.2.7 2.2.7.3.698 [place] .3.313692 084.8 MD Smith [facility] 2022-01-31 2022-01-31 Infusion Nya, 1.2.840.1 [id number] 1 [id number] Univers 09:30:00 16:30:00 Curly 17595.1.1 ity of 3.412.2.7 [place] .3.094519 MD Smith [facility] 2022-01-31 2022-01-31 Infusion EL Nya, 1.2.840.1 [id number] 1 [id number] Univers 09:30:00 16:30:00 Curly 10548.1.1 ity of 3.412.2.7 [place] .3.779958 MD Smith [facility] 2022-01-31 2022-01-31 Refill Zoran, 1.2.840.1 [id number] [id number] 2037 Univers 00:00:00 00:00:00 Gracy G 39423.1.1 ity of 3.412.2.7 [place] .3.848178 MD Smith [facility] 2022-01-31 2022-01-31 Rina Fay, 1.2.840.1 [id number] 10 [id number] Univers 00:00:00 00:00:00 Only Curly 71503.1.1 ity of 3.412.2.7 [place] .3.816985 MD Smith [facility] 2022-01-31 2022-01-31 Travel 1.2.840.1 1.2.813.381 4529 191544 Univers 00:00:00 00:00:00 83676.1.1 350.1.13.41 ity of 3.412.2.7 2.2.7.3.698 [place] .3.593677 084.8 MD Smith [facility] 2022-01-31 2022-01-31 Refill Meehan, 1.2.840.1 [id number] Univers 00:00:00 00:00:00 Gracy G 53803.1.1 ity of 3.412.2.7 [place] .3.956382 MD Smith [facility] 2022-01-31 2022-01-31 Rina Fay, 1.2.840.1 [id number] 10 [id number] Univers 00:00:00 00:00:00 Only Curly 94250.1.1 ity of 3.412.2.7 [place] .3.142230 MD Smith [facility] 2022-01-31 2022-01-31 Travel 1.2.840.1 1.2.148.350 4453 084198 Univers 00:00:00 00:00:00 58073.1.1 350.1.13.41 ity of 3.412.2.7 2.2.7.3.698 [place] .3.233569 084.8 MD Smith [facility] 2022-01-30 2022-01-30 Orders De Leon, 1.2.840.1 [id number] 1097 [id number] Univers 00:00:00 00:00:00 Only Anila 85928.1.1 ity of 3.412.2.7 [place] .3.777603 MD Smith [facility] 2022-01-30 2022-01-30 Rina De Leon, 1.2.840.1 [id number] 1097 [id number] Univers 00:00:00 00:00:00 Only Anila 39385.1.1 ity of 3.412.2.7 [place] .3.348778 MD Boles8 [facility] 2022-01-16 2022-01-16 Telephone Carr, 1.2.840.1 [id number] 840 [id number] Univers 00:00:00 00:00:00 Mercedez Gill 11303.1.1 i ty of 3.412.2.7 [place] .3.188525 MD Smith [facility] 2022-01-16 2022-01-16 Rina Fay 1.2.840.1 [id number] 10 [id number] Univers 00:00:00 00:00:00 Only Curly Mcgrath50.1.1 ity of 3.412.2.7 [place] .3.215660 MD Smith [facility] 2022-01-16 2022-01-16 Telephone Lilly, 1.2.840.1 [id number] 413 [id number] Univers 00:00:00 00:00:00 Mercedez Garland 08081.1.1 i ty of 3.412.2.7 [place] .3.031796 MD Smith [facility] 2022-01-16 2022-01-16 Rina Fay 1.2.840.1 [id number] 10 [id number] Univers 00:00:00 00:00:00 Only Curly 26639.1.1 ity of 3.412.2.7 [place] .3.617473 MD Smith [facility] 2022-01-10 2022-01-10 Curly Garibay 1.2.840.1 10 [id number] Univers 08:00:00 14:49:02 Johanne Galaviz 42943.1.1 ity of 3.412.2.7 [place] .3.163553 MD Smith [facility] 2022-01-10 2022-01-10 [facility] AMIRA ChambersFay Curly 1.2.840.1 10 9935484 [id number] Univers 08:00:00 14:49:02 Johanne Galaviz 89929.1.1 ity of 3.412.2.7 [place] .3.748364 MD Smith [facility] 2022-01-10 2022-01-10 Travel 1.2.840.1 1.2.468.061 3409 346137 Univers 00:00:00 00:00:00 88951.1.1 350.1.13.41 ity of 3.412.2.7 2.2.7.3.698 [place] .3.414609 084.Bonnie Simth [facility] 2022-01-10 2022-01-10 Travel 1.2.840.1 1.2.853.834 0984 957725 Univers 00:00:00 00:00:00 63933.1.1 350.1.13.41 ity of 3.412.2.7 2.2.7.3.698 [place] .3.658319 084.8 MD Smith [facility] 2022-01-09 2022-01-09 [facility], 1.2.840.1 [id number] 1096 000134 Univers 06:19:12 23:59:00 Encounter Sattva S. 87308.1.1 ity of 3.412.2.7 [place] .3.776765 MD Smith [facility] 2022-01-09 2022-01-09 [facility], 1.2.840.1 [id number] 1096 [id number] Univers 06:19:12 23:59:00 Encounter Sattva S. 51443.1.1 ity of 3.412.2.7 [place] .3.065895 MD Smith [facility] 2022-01-09 2022-01-09 Office Dillan, 1.2.840.1 [id number] 2295 Univers 13:45:00 15:30:16 Visit Severo 74056.1.1 ity of P 3.412.2.7 [place] .3.618826 MD Boles8 [facility] 2022-01-09 2022-01-09 Office EL Dillan, 1.2.840.1 [id number] 025297 4259 Univers 13:45:00 15:30:16 Visit Severo 65401.1.1 ity of P 3.412.2.7 [place] .3.092949 MD Boles8 [facility] 2022-01-09 2022-01-09 Orders Dillan, 1.2.840.1 [id number] 201722 9317 Univers 00:00:00 00:00:00 Only Severo 12937.1.1 ity of P 3.412.2.7 [place] .3.755402 MD Smith [facility] 2022-01-09 2022-01-09 Travel 1.2.840.1 1.2.899.617 3864 060375 Univers 00:00:00 00:00:00 71426.1.1 350.1.13.41 ity of 3.412.2.7 2.2.7.3.698 [place] .3.987709 08Bhargavi.8 MD Smith [facility] 2022-01-09 2022-01-09 Rina Munroe 1.2.840.1 [id number] 5901 Univers 00:00:00 00:00:00 Only Severo 77151.1.1 ity of P 3.412.2.7 [place] .3.299115 MD Smith [facility] 2022-01-09 2022-01-09 Travel 1.2.840.1 1.2.999.069 7656 371383 Univers 00:00:00 00:00:00 27710.1.1 350.1.13.41 ity of 3.412.2.7 2.2.7.3.698 [place] .3.459027 084.8 MD Smith [facility] 2022-01-08 2022-01-08 Ancillary Nya, 1.2.840.1 [id number] Univers 14:30:00 17:00:00 Procedure Curly 09195.1.1 i ty of 3.412.2.7 [place] .3.627674 MD Smith [facility] 2022-01-08 2022-01-08 Ancillary AMIRA Fay, 1.2.840.1 [id number] Univers 14:30:00 17:00:00 Procedure Curly 97762.1.1 i ty of 3.412.2.7 [place] .3.891130 MD Smith [facility] 2022-01-08 2022-01-08 Travel 1.2.840.1 1.2.397.076 9767 429089 Univers 00:00:00 00:00:00 77476.1.1 350.1.13.41 ity of 3.412.2.7 2.2.7.3.698 [place] .3.903298 084.8 MD Smith [facility] 2022-01-08 2022-01-08 Travel 1.2.840.1 1.2.205.208 0817 666269 Univers 00:00:00 00:00:00 56902.1.1 350.1.13.41 ity of 3.412.2.7 2.2.7.3.698 [place] .3.171412 084.8 MD Smith [facility] 2021-12-28 2021-12-28 [facility], 1.2.840.1 [id number] 36708 71180 Univers 10:38:14 23:59:00 Encounter Facundo 64985.1.1 it y of 3.412.2.7 [place] .3.657862 MD Smith [facility] 2021-12-28 2021-12-28 Hospital Manager [facility], 1.2.840.1 [id number] 91912 14551 Univers 10:38:14 23:59:00 Encounter Facundo 43574.1.1 it y of 3.412.2.7 [place] .3.223767 MD Smith [facility] 2021-12-25 2021-12-25 Telephone Kenny, 1.2.840.1 [id number] 1096 [id number] Univers 00:00:00 00:00:00 Maki Ames 21593.1.1 ity of 3.412.2.7 [place] .3.748670 MD Smith [facility] 2021-12-25 2021-12-25 Documentat Kenny, 1.2.840.1 [id number] 783 [id number] Univers 00:00:00 00:00:00 ion Maki Ames 14871.1.1 ity of 3.412.2.7 [place] .3.386153 MD Smith [facility] 2021-12-25 2021-12-25 Rina Fay, 1.2.840.1 [id number] 10 [id number] Univers 00:00:00 00:00:00 Only Curly 54911.1.1 ity of 3.412.2.7 [place] .3.994663 MD Smith [facility] 2021-12-25 2021-12-25 Telephone Kenny, 1.2.840.1 [id number] 1096 [id number] Univers 00:00:00 00:00:00 Maki Ames 84698.1.1 ity of 3.412.2.7 [place] .3.285929 MD Smith [facility] 2021-12-25 2021-12-25 Documentat Kenny, 1.2.840.1 [id number] 166 [id number] Univers 00:00:00 00:00:00 ion Maki Ames 06199.1.1 ity of 3.412.2.7 [place] .3.365787 MD Smith [facility] 2021-12-25 2021-12-25 Rina Fay 1.2.840.1 [id number] 10 [id number] Univers 00:00:00 00:00:00 Only Curly 59207.1.1 ity of 3.412.2.7 [place] .3.397710 MD Boles8 [facility] 2021-12-24 2021-12-24 Telephone Cox, 1.2.840.1 [id number] 1096 [id number] Univers 00:00:00 00:00:00 Maki Ames 23364.1.1 ity of 3.412.2.7 [place] .3.114588 MD Boles8 [facility] 2021-12-24 2021-12-24 Orders Cox, 1.2.840.1 [id number] 9564 Univers 00:00:00 00:00:00 Only Maki Ames 38078.1.1 ity of 3.412.2.7 [place] .3.295998 MD Boles8 [facility] 2021-12-24 2021-12-24 Telephone Cox, 1.2.840.1 [id number] 1096 [id number] Univers 00:00:00 00:00:00 Maki Ames 48656.1.1 ity of 3.412.2.7 [place] .3.949024 MD Boles8 [facility] 2021-12-24 2021-12-24 Orders Cox, 1.2.840.1 [id number] 1442 Univers 00:00:00 00:00:00 Only Maki Ames 05996.1.1 ity of 3.412.2.7 [place] .3.923507 MD Boles8 [facility] 2021-12-21 2021-12-23 [facility] Phoebe Perez S. 1.2.840.1 1010 09996 [id number] Univers 19:32:00 14:59:00 Encounter Joey Cervantes 91884.1.1 ity of Mo Veronica 3.412.2.7 [place] .3.478358 MD Smith [facility] 2021-12-21 2021-12-23 [facility] BullPhoebe S. 1.2.840.1 1010 06309 [id number] Univers 19:32:00 14:59:00 Encounter Abbe Cervantesfaviola 89438.1.1 ity of Mo Vreonica 3.412.2.7 [place] .3.533724 MD Smith [facility] 2021-12-22 2021-12-22 Travel 1.2.840.1 1.2.438.179 9330 813565 Univers 00:00:00 00:00:00 08511.1.1 350.1.13.41 ity of 3.412.2.7 2.2.7.3.698 [place] .3.831090 084.8 MD Smith [facility] 2021-12-22 2021-12-22 Travel 1.2.840.1 1.2.381.627 2057 872562 Univers 00:00:00 00:00:00 76044.1.1 350.1.13.41 ity of 3.412.2.7 2.2.7.3.698 [place] .3.124629 084.8 MD Smith [facility] 2021-12-21 2021-12-21 Outpatient AMIRA PEREZ, [facility] [id number] 20:40:17 21:20:54 PHOEBE [facility] 2021-12-20 2021-12-20 Marciano Donald 1.2.840.1 [id number] 10 [id number] Univers 00:00:00 00:00:00 Only 03860.1.1 ity of 3.412.2.7 [place] .3.798800 MD Smith [facility] 2021-12-20 2021-12-20 Rina Fay 1.2.840.1 [id number] 10 [id number] Univers 00:00:00 00:00:00 Only Curly 15148.1.1 ity of 3.412.2.7 [place] .3.831743 MD Smith [facility] 2021-12-20 2021-12-20 Marciano Donald 1.2.840.1 [id number] 10 [id number] Univers 00:00:00 00:00:00 Only 58751.1.1 ity of 3.412.2.7 [place] .3.463498 MD Smith [facility] 2021-12-20 2021-12-20 Orders Nya, 1.2.840.1 [id number] 10 [id number] Univers 00:00:00 00:00:00 Only Curly 62267.1.1 ity of 3.412.2.7 [place] .3.437195 MD Boles8 [facility] 2021-12-19 2021-12-19 Orders Nya, 1.2.840.1 [id number] 10 [id number] Univers 00:00:00 00:00:00 Only Curly 40221.1.1 ity of 3.412.2.7 [place] .3.778022 MD Boles8 [facility] 2021-12-19 2021-12-19 Orders Nya, 1.2.840.1 [id number] 10 [id number] Univers 00:00:00 00:00:00 Only Curly 80034.1.1 ity of 3.412.2.7 [place] .3.814622 MD Smith [facility] 2021-12-19 2021-12-19 Orders Nya, 1.2.840.1 [id number] 10 [id number] Univers 00:00:00 00:00:00 Only Curly 91933.1.1 ity of 3.412.2.7 [place] .3.338389 MD Smith [facility] 2021-12-19 2021-12-19 Orders Nya, 1.2.840.1 [id number] 10 [id number] Univers 00:00:00 00:00:00 Only Curly 07261.1.1 ity of 3.412.2.7 [place] .3.113135 MD Smith [facility] 2021-12-18 2021-12-18 [facility] Dillan 1.2.840.1 [id number] 90577 [id number] Univers 11:55:11 23:59:00 Encounter Severo 80413.1.1 ity of P 3.412.2.7 [place] .3.270912 MD Smith [facility] 2021-12-18 2021-12-18 Hospital AMIRA Munroe, 1.2.840.1 [id number] 94207 Univers 11:55:11 23:59:00 Encounter Severo 51877.1.1 ity of P 3.412.2.7 [place] .3.301011 MD Boles8 [facility] 2021-12-18 2021-12-18 Office Yazan, 1.2.840.1 [id number] Univers 14:00:00 15:40:34 Visit Phoebe Gómez 57919.1.1 it y of 3.412.2.7 [place] .3.955121 MD Boles8 [facility] 2021-12-18 2021-12-18 Office Yazan, 1.2.840.1 [id number] 65850 40575 Univers 14:00:00 15:40:34 Visit Phoebe Gómez 98856.1.1 it y of 3.412.2.7 [place] .3.179857 MD Smith [facility] 2021-12-18 2021-12-18 Travel 1.2.840.1 1.2.268.013 8702 [id number] Univers 00:00:00 00:00:00 14676.1.1 350.1.13.41 ity of 3.412.2.7 2.2.7.3.698 [place] .3.798353 084.8 MD Boles8 [facility] 2021-12-18 2021-12-18 Yodit Munoz 1.2.840.1 [id number] 10 [id number] Univers 00:00:00 00:00:00 41101.1.1 ity of 3.412.2.7 [place] .3.115593 MD Boles8 [facility] 2021-12-18 2021-12-18 Travel 1.2.840.1 1.2.459.057 5755 [id number] Univers 00:00:00 00:00:00 62914.1.1 350.1.13.41 ity of 3.412.2.7 [place].3.698 [place] .3.598384 084.8 .8 [facility] 2021-12-18 2021-12-18 Yodit Munoz Lay 1.2.840.1 [id number] 10 [id number] Univers 00:00:00 00:00:00 24624.1.1 ity of 3.412.2.7 [place] .3.513221 .8 [facility] 2021-12-13 2021-12-13 Office Rod Munguia 1.2.840.1 [id number] Methodi 11:15:00 11:15:00 Visit LydiaEla penalozagraciela Danielson 15593.1.[address] 3.430.2.7 Hospit a .3.676605 l .8 2021-12-13 2021-12-13 Office Rod Munguia 1.2.840.1 [id number] Methodi 11:15:00 11:15:00 Visit LydiaMauro penaloza Jagjit 69873.1.[address] 3.430.2.7 Hospit a .3.893076 l .8 2021-12-13 2021-12-13 Travel 1.2.840.1 1.2.360.412 7012 [id number] Methodi 00:00:00 00:00:[address] 3.430.2.7 0.2.7.3.698 Ho spita .3.699535 084.8 l .8 2021-12-13 2021-12-13 Travel 1.2.840.1 1.2.242.747 6855 [id number] Methodi 00:00:00 00:00:[address] 3.430.2.7 0.2.7.3.698 Ho spita .3.888974 084.8 l .8 2021-12-11 2021-12-11 Follow-Up Debbie 1.2.840.1 [id number] 10 [id number] Univers 14:30:00 16:40:10 [place] 71977.1.1 ity of 3.412.2.7 [place] .3.820136 MD Smith [facility] 2021-12-11 2021-12-11 Follow-Up AMIRA Lewis, 1.2.840.1 [id number] 10 [id number] Univers 14:30:00 16:40:10 [place] 17639.1.1 ity of 3.412.2.7 [place] .3.277718 MD Smith [facility] 2021-12-11 2021-12-11 Travel 1.2.840.1 1.2.162.029 5177 [id number] Univers 00:00:00 00:00:00 24617.1.1 350.1.13.41 ity of 3.412.2.7 2.[place]7.3.698 [place] .3.227551 084.8 MD Smith [facility] 2021-12-11 2021-12-11 Travel 1.2.840.1 1.2.552.564 5757 [id number] Univers 00:00:00 00:00:00 39983.1.1 350.1.13.41 ity of 3.412.2.7 [place]7.3.698 [place] .3.585559 084.8 MD Smith [facility] 2021-12-07 2021-12-07 Hospital Esme, 1.2.840.1 [id number] Univers 10:58:36 23:59:00 Encounter Facundo 28111.1.1 it y of 3.412.2.7 [place] .3.084902 MD Smith [facility] 2021-12-07 2021-12-07 Hospital Esme, 1.2.840.1 [id number] Univers 10:58:36 23:59:00 Encounter Facundo 40407.1.1 it y of 3.412.2.7 [place] .3.778566 MD Smith [facility] 2021-12-03 2021-12-03 Office Lucinda Antoine 1.2.840.1 [id number] Univers 14:20:00 14:35:17 Visit Michelle Ruiz 48598.1.1 it y of 3.412.2.7 [place] .3.729280 MD Boles8 [facility] 2021-12-03 2021-12-03 Office Lucinda Fierro 1.2.840.1 [id number] Univers 14:20:00 14:35:17 Visit Michelle Ruiz 13880.1.1 it y of 3.412.2.7 [place] .3.211322 MD Boles8 [facility] 2021-12-03 2021-12-03 Outpatient LUCINDA FIERRO [facility] [id number] 11:54:02 11:54:02 [facility] 2021-12-03 2021-12-03 Travel 1.2.840.1 1.2.158.378 4017 [id number] Univers 00:00:00 00:00:00 45395.1.1 350.1.13.41 ity of 3.412.2.7 2.[place]7.3.698 [place] .3.897934 084.8 MD Boles8 [facility] 2021-12-03 2021-12-03 Travel 1.2.840.1 1.2.853.749 3780 [id number] Univers 00:00:00 00:00:00 76139.1.1 350.1.13.41 ity of 3.412.2.7 [place]7.3.698 [place] .3.630071 084.8 MD Smith [facility] 2021-11-21 2021-11-26 [facility] Severo Munroe 1.2.840.1 101 [id number] Univers 19:08:00 18:42:00 Encounter Phoebe Perez 50895.1.1 ity of Nolberto Soares 3.412.2.7 [place] .3.180948 MD Smith [facility] 2021-11-21 2021-11-26 [facility] Severo Munroe 1.2.840.1 101 [id number] Univers 19:08:00 18:42:00 Encounter Phoebe Perez 31726.1.1 ity of Nolberto Soares 3.412.2.7 [place] .3.671675 MD Boles8 [facility] 2021-11-26 2021-11-26 Trace Blanchardena 1.2.840.1 [id number] 10 [id number] Univers 00:00:00 00:00:00 Only M 84062.1.1 ity of 3.412.2.7 [place] .3.710598 MD Boles8 [facility] 2021-11-26 2021-11-26 Trace Blanchardena 1.2.840.1 [id number] 10 [id number] Univers 00:00:00 00:00:00 Only Adolfo 81657.1.1 ity of 3.412.2.7 [place] .3.573608 MD Boles8 [facility] 2021-11-23 2021-11-23 Inpatient LUCINDA FIERRO [facility] [id number] 12:24:39 20:10:20 [facility] 2021-11-23 2021-11-23 Anesthesia Patel Flor 1.2.840.1 [id number] 2 [id number] Univers 13:28:00 14:26:00 Event Claudia Boyle 97412.1.1 ity of 3.412.2.7 [place] .3.525363 MD Boles8 [facility] 2021-11-23 2021-11-23 Anesthesia Patel Flor 1.2.840.1 [id number] 2 [id number] Univers 13:28:00 14:26:00 Event Claudia Boyle 02235.1.1 ity of 3.412.2.7 [place] .3.200307 MD Boles8 [facility] 2021-11-23 2021-11-23 Rina Fay 1.2.840.1 [id number] 10 [id number] Univers 00:00:00 00:00:00 Only Curly 26697.1.1 ity of 3.412.2.7 [place] .3.133256 MD Boles8 [facility] 2021-11-23 2021-11-23 Orders Nya, 1.2.840.1 [id number] 10 [id number] Univers 00:00:00 00:00:00 Only Curly 40179.1.1 ity of 3.412.2.7 [place] .3.134332 MD Boles8 [facility] 2021-11-21 2021-11-21 [facility] Esme, 1.2.840.1 [id number] Univers 08:00:00 19:07:00 Encounter Facundo 79391.1.1 it y of 3.412.2.7 [place] .3.487955 MD Boles8 [facility] 2021-11-21 2021-11-21 [facility] Esme, 1.2.840.1 [id number] Univers 08:00:00 19:07:00 Encounter Facundo 44830.1.1 it y of 3.412.2.7 [place] .3.124514 MD Boles8 [facility] 2021-11-21 2021-11-21 Office Dillan, 1.2.840.1 [id number] Univers 13:00:00 13:57:40 Visit Severo 76675.1.1 ity of P 3.412.2.7 [place] .3.960061 MD Smith [facility] 2021-11-21 2021-11-21 Office AMIRA Munroe, 1.2.840.1 [id number] [id number] Univers 13:00:00 13:57:40 Visit Severo 22619.1.1 ity of P 3.412.2.7 [place] .3Ramana736847 MD Boles8 [facility] 2021-11-21 2021-11-21 Infusion Nya 1.2.840.1 [id number] 1 [id number] Univers 11:15:00 11:45:00 Curly 97859.1.1 ity of 3.412.2.7 [place] .3Ramana429642 MD Smith [facility] 2021-11-21 2021-11-21 Infusion AMIRA Fay, 1.2.840.1 [id number] 1 [id number] Univers 11:15:00 11:45:00 Curly 13412.1.1 ity of 3.412.2.7 [place] .3.096747 MD Smith [facility] 2021-11-21 2021-11-21 Outpatient AMIRA QUICK MDA [facility] [id number] 10:41:32 11:19:34 JORGITOZEINA burden lewis 2021-11-21 2021-11-21 Orders Dillan, 1.2.840.1 [id number] 0944 Univers 00:00:00 00:00:00 Only Severo 67938.1.1 ity of P 3.412.2.7 [place] .3.676763 MD Smith [facility] 2021-11-21 2021-11-21 Telephone ElizabethElver 1.2.840.1 [id number] 10 [id number] Univers 00:00:00 00:00:00 Candida Lawson 61779.1.1 ity of 3.412.2.7 [place] .3.725303 MD Smith [facility] 2021-11-21 2021-11-21 Travel 1.2.840.1 1.2.336.522 7753 [id number] Univers 00:00:00 00:00:00 14649.1.1 350.1.13.41 ity of 3.412.2.7 2.[place].7.3.698 [place]3.[place] 084.8 MD Smith [facility] 2021-11-21 2021-11-21 Orders Dillan, 1.2.840.1 [id number] Univers 00:00:00 00:00:00 Only Severo 50901.1.1 ity of P 3.412.2.7 [place] .3.625795 MD Smith [facility] 2021-11-21 2021-11-21 Telephone ElizabethElver 1.2.840.1 [id number] 10 [id number] Univers 00:00:00 00:00:00 Candida Lawson 33346.1.1 ity of 3.412.2.7 [place] .3.068355 MD Smith [facility] 2021-11-21 2021-11-21 Travel 1.2.840.1 1.2.435.784 0538 [id number] Univers 00:00:00 00:00:00 09477.1.1 350.1.13.41 ity of 3.412.2.7 2.2.7.3.698 [place]3.[place] 084.8 MD Boles8 [facility] 2021-11-19 2021-11-19 [facility] 1.2.840.1 [id number] 10 [id number] Univers 12:00:00 23:59:00 Encounter Valerie Aragon 56878.1.1 ity of 3.412.2.7 [place] .3.194774 MD Boles8 [facility] 2021-11-19 2021-11-19 [facility] 1.2.840.1 [id number] 10 [id number] Univers 12:00:00 23:59:00 Encounter Valerie Aragon 14968.1.1 ity of 3.412.2.7 [place] .3.126713 MD Smith [facility] 2021-11-19 2021-11-19 [facility] Jacklyn Veronica 1.2.840.1 [id number] 10 [id number] Univers 10:14:02 11:59:00 Encounter Eren East 42338.1.1 ity of 3.412.2.7 [place] .3.026679 MD Smith [facility] 2021-11-19 2021-11-19 [facility] Jacklyn Taylor 1.2.840.1 [id number] 10 [id number] Univers 10:14:02 11:59:00 Encounter Eren East 02471.1.1 ity of 3.412.2.7 [place] .3.199468 MD Smith [facility] 2021-11-19 2021-11-19 Travel 1.2.840.1 1.2.040.608 2237 [id number] Univers 00:00:00 00:00:00 93585.1.1 350.1.13.41 ity of 3.412.2.7 2.2.7.3.698 [place] .3.094046 084.8 MD Smith [facility] 2021-11-19 2021-11-19 Travel 1.2.840.1 1.2.382.504 2458 [id number] Univers 00:00:00 00:00:00 27584.1.1 350.1.13.41 ity of 3.412.2.7 2.2.7.3.698 [place] .3.153008 084.8 MD Smith [facility] 2021-11-16 2021-11-16 Rina Dill, 1.2.840.1 [id number] 801 [id number] Univers 00:00:00 00:00:00 Only Valerie Aragon 97295.1.1 it y of 3.412.2.7 [place] .3.078538 MD Smith [facility] 2021-11-16 2021-11-16 Rina Dill, 1.2.840.1 [id number] 631 [id number] Univers 00:00:00 00:00:00 Only Valerie Aragon 06907.1.1 it y of 3.412.2.7 [place] .3.749532 MD Smith [facility] 2021-11-15 2021-11-15 Rina Fay 1.2.840.1 [id number] 10 [id number] Univers 00:00:00 00:00:00 Only Curly 65211.1.1 ity of 3.412.2.7 [place] .3.772461 MD Smith [facility] 2021-11-15 2021-11-15 Rina Fay 1.2.840.1 [id number] 10 [id number] Univers 00:00:00 00:00:00 Only Curly 21931.1.1 ity of 3.412.2.7 [place] .3.732019 MD Smith [facility] 2021-11-14 2021[facility]14 [facility] 1.2.840.1 101 [id number] Univers 09:00:00 23:59:00 Encounter Jacklyn Veronica 12060.1.1 ity of 3.412.2.7 [place] .3.534550 MD Smith [facility] 2021-11-14 2021-11-14 [facility] Flynn Munroeathan P 1.2.840.1 101 [id number] Univers 09:00:00 23:59:00 Encounter Jacklyn Veronica 89519.1.1 ity of 3.412.2.7 [place] .3.098555 MD Smith [facility] 2021-11-14 2021-11-14 Office Dillan, 1.2.840.1 [id number] Univers 14:00:00 14:15:00 Visit Severo 77367.1.1 ity of P 3.412.2.7 [place] .3.935183 MD Smith [facility] 2021-11-14 2021-11-14 Office Dillan, 1.2.840.1 [id number] Univers 14:00:00 14:15:00 Visit Severo 92941.1.1 ity of P 3.412.2.7 [place] .3.637390 MD Smith [facility] 2021-11-14 2021-11-14 Orders Nya 1.2.840.1 [id number] 10 [id number] Univers 00:00:00 00:00:00 Only Curly 76320.1.1 ity of 3.412.2.7 [place] .3.835583 MD Smith [facility] 2021-11-14 2021-11-14 Orders Jacklyn Veronica 1.2.840.1 [id number] 656 [id number] Univers 00:00:00 00:00:00 Only 18972.1.1 ity of 3.412.2.7 [place] .3.092738 MD Smith [facility] 2021-11-14 2021-11-14 Orders Fay, 1.2.840.1 [id number] 10 [id number] Univers 00:00:00 00:00:00 Only Curly 82292.1.1 ity of 3.412.2.7 [place] .3.009255 MD Boles8 [facility] 2021-11-14 2021-11-14 Orders JeremíasJacklyn 1.2.840.1 [id number] 312 [id number] Univers 00:00:00 00:00:00 Only 39188.1.1 ity of 3.412.2.7 [place] .3.484044 .8 [facility] 2021-10-22 2021-11-09 [facility] 1.2.840.1 [id number] Univers 09:44:00 06:03:00 Encounter Poli Recinos 86168.1.1 ity of Joey Cervantes 3.412.2.7 Yodit Rucker3.875554 Luis Antonio S[facility] [place] Luis Antonio Baker [facility] 2021-10-22 2021-11-09 [facility] Valerie 1.2.840.1 [id number] Univers 09:44:00 06:03:00 Encounter Poli Recinos 00265.1.1 ity of Joey Cervantes 3.412.2.7 [place] Yodit Colunga3.671777 Luis Antonio Sween[facility] [place] Sony Song Sunday [facility] 2021-11-08 2021-11-09 Inpatient EL SONY MDA MDA [id number] 26 23:44:47 00:14:58 Arnulfo SONG 2021-11-09 2021-11-09 Orders Nya, 1.2.840.1 [id number] 10 [id number] Univers 00:00:00 00:00:00 Only Curly 03933.1.1 ity of 3.412.2.7 [place] .3.994437 .8 [facility] 2021-11-09 2021-11-09 Orders Nya, 1.2.840.1 [id number] 10 [id number] Univers 00:00:00 00:00:00 Only Curly 66161.1.1 ity of 3.412.2.7 [place] .3.496231 MD Boles8 [facility] 2021-11-08 2021-11-08 Inpatient EL SONY MDA MDA [id number] 20:25:32 20:58:10 LUZMA Arnulfo rso LUIS ANTONIO n 2021-11-08 2021-11-08 Inpatient EL SONY MDA MDA [id number] MD 17:58:05 18:36:07 LUZMA Arnulfo rso LUIS ANTONIO n 2021-11-08 2021-11-08 Inpatient EL SONY MDA MDA [id number] MD 15:27:33 16:31:13 Arnulfo SONG rso LUIS ANTONIO n 2021-11-08 2021-11-08 Orders Nya, 1.2.840.1 [id number] 10 [id number] Univers 00:00:00 00:00:00 Only Curly 34946.1.1 ity of 3.412.2.7 [place] .3.053922 .8 [facility] 2021-11-08 2021-11-08 Orders Nya, 1.2.840.1 [id number] 10 [id number] Univers 00:00:00 00:00:00 Only Curly 34046.1.1 ity of 3.412.2.7 [place] .3.453047 .8 [facility] 2021-11-07 2021-11-07 Inpatient EL SONY MDA MDA [id number] MD 03:02:08 03:26:03 Arnulfo SONG rso LUIS ANTONIO n 2021-11-07 2021-11-07 Orders Abdelrahman 1.2.840.1 [id number] Univers 00:00:00 00:00:00 Only Darnell Ames 22499.1.1 ity of 3.412.2.7 [place] .3.020948 MD Boles8 [facility] 2021-11-07 2021-11-07 Orders Abdelrahman, 1.2.840.1 [id number] 3077 Univers 00:00:00 00:00:00 Only Lija C 38415.1.1 ity of 3.412.2.7 [place] .3.751526 MD Boles8 [facility] 2021-11-07 2021-11-07 Orders Abdelrahman, 1.2.840.1 [id number] Univers 00:00:00 00:00:00 Only Lija C 53812.1.1 ity of 3.412.2.7 [place] .3.058975 MD Boles8 [facility] 2021-11-07 2021-11-07 Orders Abdelrahman, 1.2.840.1 [id number] Univers 00:00:00 00:00:00 Only Lija C 80119.1.1 ity of 3.412.2.7 [place] .3.703905 MD Boles8 [facility] 2021-11-06 2021-11-06 Orders Puneet, 1.2.840.1 [id number] Univers 00:00:00 00:00:00 Only Archana 26529.1.1 it y of 3.412.2.7 [place] .3.840408 MD Boles8 [facility] 2021-11-06 2021-11-06 Orders Puneet 1.2.840.1 [id number] Univers 00:00:00 00:00:00 Only Archana 80525.1.1 it y of 3.412.2.7 [place] .3.528242 MD Boles8 [facility] 2021-11-01 2021-11-01 Anesthesia Sriram Corea 1.2.840.1 [id number] Univers 15:37:00 17:58:00 Event Claudia Boyle 19065.1.1 ity of 3.412.2.7 [place] .3.537598 MD Boles8 [facility] 2021-11-01 2021-11-01 Anesthesia Sriram Corea 1.2.840.1 [id number] [id number] Univers 15:37:00 17:58:00 Event [place] Claudia A 79229.1.1 ity of 3.412.2.7 [place] .3.954357 MD Boles8 [facility] 2021-11-01 2021-11-01 Surgery Konishi, 1.2.840.1 [id number] Univers 14:30:00 17:25:00 Tsuymichel 79768.1.1 ity of 3.412.2.7 [place] .3.697575 MD Boles8 [facility] 2021-11-01 2021-11-01 Surgery Konishi, 1.2.840.1 [id number] Univers 14:30:00 17:25:00 Brett 83715.1.1 ity of 3.412.2.7 [place] .3.102703 MD Boles8 [facility] 2021-10-30 2021-10-30 Inpatient YODIT VELA MDA, MDA [id number] 01:59:31 02:08:48 [facility] 2021-10-29 2021-10-30 Inpatient YODIT VELA MDA, MDA [id number] 23:34:40 00:26:03 [facility] 2021-10-30 2021-10-30 Prep for Gourmelon, 1.2.840.1 [id number] 10 [id number] Univers 00:00:00 00:00:00 Surgery Nikki 79299.1.1 ity of 3.412.2.7 [place] .3.881087 MD Smith [facility] 2021-10-30 2021-10-30 Prep for Gourmelon, 1.2.840.1 [id number] 10 [id number] Univers 00:00:00 00:00:00 Surgery Nikki 45101.1.1 ity of 3.412.2.7 [place] .3.902717 MD Smith [facility] 2021-10-28 2021-10-28 Inpatient YODIT VELA MDA MDA [id number] MD 17:42:55 18:00:57 Jaspal saucedo 2021-10-28 2021-10-28 Inpatient YODIT VELA MAK MDA [id number] 14:07:23 14:31:42 Jaspal saucedo 2021-10-28 2021-10-28 Inpatient YODIT VELA MDA MDA [id number] 10:47:26 11:41:45 Jaspal saucedo 2021-10-26 2021-10-26 Orders Cecile 1.2.840.1 [id number] Univers 00:00:00 00:00:00 Only Cesar Ocampo 61366.1.1 ity of 3.412.2.7 [place] .3.248366 .8 [facility] 2021-10-26 2021-10-26 Rina Huber 1.2.840.1 [id number] 6388 Univers 00:00:00 00:00:00 Only Cesar Ocampo 30014.1.1 ity of 3.412.2.7 [place] .3.957182 .8 [facility] 2021-10-24 2021-10-24 Inpatient AMIRA QUICK MAK MDA [id number] 13:08:06 19:50:26 LIJA Jaspal saucedo 2021-10-24 2021-10-24 Anesthesia Favian Hill 1.2.840.1 101 [id number] Univers 16:48:00 17:42:00 Event Nadja Benites 99488.1.1 ity of 3.412.2.7 [place] .3.083379 .8 [facility] 2021-10-24 2021-10-24 Anesthesia Favian Hill 1.2.840.1 101 [id number] Univers 16:48:00 17:42:00 Event Nadja Benites 68326.1.1 ity of 3.412.2.7 [place] .3.378970 [facility] 2021-10-24 2021-10-24 Inpatient YODIT VELA MAK MDA [id number] 05:22:27 06:00:40 Jaspal saucedo 2021-10-24 2021-10-24 Inpatient YODIT VELA [facility] MDA [id number] 02:52:02 03:16:54 Jaspaljayla saucedo 2021-10-24 2021-10-24 Orders Asher, 1.2.840.1 [id number] Univers 00:00:00 00:00:00 Only Mouna Taylor 22382.1.1 ity of 3.412.2.7 [place] .3.314134 MD Smith [facility] 2021-10-24 2021-10-24 Orders Asher, 1.2.840.1 [id number] Univers 00:00:00 00:00:00 Only Mouna Taylor 84263.1.1 ity of 3.412.2.7 [place] .3.495507 MD Smith [facility] 2021-10-23 2021-10-23 Inpatient YODIT VELA [facility] MDA [id number] 12:16:09 12:27:58 Jaspal saucedo 2021-10-23 2021-10-23 Inpatient YODIT VELA [facility] MDA [id number] 08:32:41 10:15:35 Jaspal saucedo 2021-10-22 2021-10-22 Sherry Baptiste 1.2.840.1 [id number] Univers 08:00:00 09:21:15 Jaren Valle 07642.1.1 ity of 3.412.2.7 [place] .3.166124 MD Smith [facility] 2021-10-22 2021-10-22 Consult AMIRA Baptiste 1.2.840.1 [id number] 3222 Univers 08:00:00 09:21:15 Jaren Valle 88813.1.1 ity of 3.412.2.7 [place] .3.907441 MD Smith [facility] 2021-10-22 2021-10-22 Orders Shaji 1.2.840.1 [id number] Univers 00:00:00 00:00:00 Only Jony 13566.1.1 ity of 3.412.2.7 [place] .3.046805 MD Smith [facility] 2021-10-22 2021-10-22 Travel 1.2.840.1 1.2.820.272 9947 403952 Univers 00:00:00 00:00:00 84500.1.1 350.1.13.41 ity of 3.412.2.7 2.2[place]7.3.698 [place] .3.[place]259 084.8 MD Smith [facility] 2021-10-22 2021-10-22 Orders Girard, 1.2.840.1 [id number] 6851 Univers 00:00:00 00:00:00 Only Jony 10504.1.1 ity of 3.412.2.7 [place] .3.268724 MD Smith [facility] 2021-10-22 2021-10-22 Travel 1.2.840.1 1.2.260.819 4191 307046 Univers 00:00:00 00:00:00 99711.1.1 350.1.13.41 ity of 3.412.2.7 2.2.7.3.698 [place] .3.189129 084.8 MD Smith [facility] 2021-10-19 2021-10-19 Hospital Manager Lighting, 1.2.840.1 [id number] 83640 Univers 23:59:00 23:59:00 Encounter Facundo 56517.1.1 it y of 3.412.2.7 [place] .3.261632 MD Smith [facility] 2021-10-19 2021-10-19 [facility] EL Manager Lighting, 1.2.840.1 [id number] 30874 Univers 23:59:00 23:59:00 Encounter Facundo 17964.1.1 it y of 3.412.2.7 [place] .3.289352 MD Smith [facility] 2021-10-18 2021-10-18 [facility] Manager Lighting, 1.2.840.1 [id number] 3911 Univers 00:00:00 00:00:00 Only Facundo 68504.1.1 ity of 3.412.2.7 [place] .3.471037 MD Boles8 [facility] 2021-10-18 2021-10-18 Orders Manager Lighting, 1.2.840.1 [id number] 6403 Univers 00:00:00 00:00:00 Only Facundo 95013.1.1 ity of 3.412.2.7 [place] .3.615048 MD Boles8 [facility] 2021-10-17 2021-10-17 [facility] Severo Munroe P 1.2.840.1 101 [id number] Univers 13:24:41 23:59:00 Encounter Scarlett Ortega 02943.1.1 ity of 3.412.2.7 [place] .3.753153 MD Boles8 [facility] 2021-10-17 2021-10-17 [facility] Severo Munroe P 1.2.840.1 101 [id number] Univers 13:24:41 23:59:00 Encounter Scarlett Ortega 60844.1.1 ity of 3.412.2.7 [place] .3.907225 MD Boles8 [facility] 2021-10-17 2021-10-17 Office Dillan 1.2.840.1 [id number] 6898 Univers 14:30:00 16:23:46 Visit Severo 74749.1.1 ity of P 3.412.2.7 [place] .3Ramana589853 MD Boles8 [facility] 2021-10-17 2021-10-17 Office AMIRA Munroe 1.2.840.1 [id number] 1133 Univers 14:30:00 16:23:46 Visit Severo 10311.1.1 ity of P 3.412.2.7 [place] .3Ramana324770 MD Boles8 [facility] 2021-10-17 2021-10-17 [facility] Tarik, 1.2.840.1 [id number] 48950 Univers 12:24:05 13:23:00 Encounter Susan Perkins 50138.1.1 ity of 3.412.2.7 [place] .3Ramana514916 MD Smith [facility] 2021-10-17 2021-10-17 Hospital Tarik, 1.2.840.1 [id number] [facility] [place] [facility] 12:24:05 13:23:00 Encounter Susan R 79080.1.1 ity of 3.412.2.7 [place] .3.842874 MD Smith [facility] 2021-10-17 2021-10-17 Travel 1.2.840.1 1.2.906.296 4975 448156 Univers 00:00:00 00:00:00 12161.1.1 350.1.13.41 ity of 3.412.2.7 2.2.7.3.698 [place] .3.002614 084.8 MD Smith [facility] 2021-10-17 2021-10-17 Documentat [place] Albina, 1.2.840.1 [id number] 10 [id number] Univers 00:00:00 00:00:00 ion Paula 57094.1.1 ity of 3.412.2.7 [place] .3.263746 MD Smith [facility] 2021-10-17 2021-10-17 Travel 1.2.840.1 1.2.244.771 8108 036144 Univers 00:00:00 00:00:00 87778.1.1 350.1.13.41 ity of 3.412.2.7 2.2.7.3.698 [place] .3.548624 084.Bonnie Smith [facility] 2021-10-17 2021-10-17 Documentat [place] Albina, 1.2.840.1 [id number] 10 [id number] Univers 00:00:00 00:00:00 ion Paula 09968.1.1 ity of 3.412.2.7 [place] .3.971533 MD Smith [facility] 2021-10-16 2021-10-16 Follow-Up Debbie, 1.2.840.1 [id number] 10 [id number] Univers 14:30:00 14:30:00 [place] 65921.1.1 ity of 3.412.2.7 [place] .3.640344 MD Smith [facility] 2021-10-16 2021-10-16 Follow-Up EL Spallone, 1.2.840.1 [id number] 10 [id number] Univers 14:30:00 14:30:00 [place] 11401.1.1 ity of 3.412.2.7 [place] .3.381273 MD Smith [facility] 2021-10-16 2021-10-16 Ancillary Spallone, 1.2.840.1 [id number] 10 [id number] Univers 09:20:00 11:45:00 Procedure Augusta 93231.1.1 it y of 3.412.2.7 [place] .3.020524 MD Smith [facility] 2021-10-16 2021-10-16 Ancillary EL Spallone, 1.2.840.1 [id number] 10 [id number] Univers 09:20:00 11:45:00 Procedure Augusta 78677.1.1 it y of 3.412.2.7 [place] .3.704499 MD Smith [facility] 2021-10-16 2021-10-16 Travel 1.2.840.1 1.2.555.083 8876 [id number] Univers 00:00:00 00:00:00 49804.1.1 350.1.13.41 ity of 3.412.2.7 2.2.7.3.698 [place] .3.641063 084.Bonnie Smith [facility] 2021-10-16 2021-10-16 Travel 1.2.840.1 1.2.887.345 6105 801603 Univers 00:00:00 00:00:00 98102.1.1 350.1.13.41 ity of 3.412.2.7 2.2.7.3.698 [place] .3.933632 084Ramana8 MD Smith [facility] 2021-10-10 2021-10-10 Susan Keenan 1.2.840.1 [id number] Univers 10:00:00 11:44:18 Visit Dimple Walter 85267.1.1 ity of 3.412.2.7 [place] .3.360929 MD Boles8 [facility] 2021-10-10 2021-10-10 Office Maranda Melendrezgael R 1.2.840.1 [id number] Univers 10:00:00 11:44:18 Visit Dimple Walter 29449.1.1 ity of 3.412.2.7 [place] .3.227608 MD Boles8 [facility] 2021-10-10 2021-10-10 Outpatient AMIRA KELELR MDA MDA [id number] 07:42:19 07:42:19 SUSAN [facility] 2021-10-10 2021-10-10 Orders Manager Lighting, 1.2.840.1 [id number] 7621 Univers 00:00:00 00:00:00 Only Facundo 22286.1.1 ity of 3.412.2.7 [place] .3.769341 MD Boles8 [facility] 2021-10-10 2021-10-10 Travel 1.2.840.1 1.2.656.807 5312 [id number] Univers 00:00:00 00:00:00 44873.1.1 350.1.13.41 ity of 3.412.2.7 2.2.7.3.698 [place] .3.345793 08Bhargavi.8 MD Boles8 [facility] 2021-10-10 2021-10-10 Orders Manager Lighting, 1.2.840.1 [id number] 8192 Univers 00:00:00 00:00:00 Only Facundo 22092.1.1 ity of 3.412.2.7 [place] .3.585065 MD Boles8 [facility] 2021-10-10 2021-10-10 Travel 1.2.840.1 1.2.104.691 7230 [id number] Univers 00:00:00 00:00:00 33437.1.1 350.1.13.41 ity of 3.412.2.7 2.[place].3.698 [place] .3.232933 084.8 .8 [facility] 2021-10-03 2021-10-03 [facility] 1.2.840.1 101 [id number] Univers 07:53:15 23:59:00 Encounter Lavern Johnson 70409.1.1 ity of 3.412.2.7 [place] .3.085163 .8 [facility] 2021-10-03 2021-10-03 [facility] Nusrat uMnroeSevero P 1.2.840.1 101 [id number] Univers 07:53:15 23:59:00 Encounter Lavern Johnson 35624.1.1 ity of 3.412.2.7 [place] .3.000114 MD Boles8 [facility] 2021-10-03 2021-10-03 Office Susan Keller 1.2.840.1 [id number] Univers 09:00:00 10:07:30 Visit Tahir Thompson 68279.1.1 ity of 3.412.2.7 [place] .3.660044 MD Boles8 [facility] 2021-10-03 2021-10-03 Office Susan Melendrez 1.2.840.1 [id number] Univers 09:00:00 10:07:30 Visit Tahir Thompson 94553.1.1 ity of 3.412.2.7 [place] .3.859580 MD Boles8 [facility] 2021-10-03 2021-10-03 Outpatient AMIRA KELLER MDA MDA [id number] 07:02:41 07:02:41 SUSAN saucedo 2021-10-03 2021-10-03 Orders Shaji 1.2.840.1 [id number] Univers 00:00:00 00:00:00 Only Jony 87974.1.1 ity of 3.412.2.7 [place] .3.136874 MD Smith [facility] 2021-10-03 2021-10-03 Travel 1.2.840.1 1.2.548.024 [id number] Univers 00:00:00 00:00:00 43789.1.1 350.1.13.41 ity of 3.412.2.7 [place]3.698 [place] .3.722025 084.8 MD Boles8 [facility] 2021-10-03 2021-10-03 Orders Girard, 1.2.840.1 [id number] Univers 00:00:00 00:00:00 Only Jony 99658.1.1 ity of 3.412.2.7 [place] .3.713370 MD Smith [facility] 2021-10-03 2021-10-03 Travel 1.2.840.1 1.2.762.784 [id number] Univers 00:00:00 00:00:00 18967.1.1 350.1.13.41 ity of 3.412.2.7 [place].3.698 [place] .3.605072 084.Bonnie Smith [facility] 2021-09-30 2021-09-30 Telephone Chanel Gonzalez 1.2.840.1 [id number] Univers 00:00:00 00:00:00 [place] 42906.1.1 ity of 3.412.2.7 [place] .3.954922 MD Smith [facility] 2021-09-30 2021-09-30 Telephone Chanel Gonzalez 1.2.840.1 [id number] Univers 00:00:00 00:00:00 [place] 22076.1.1 ity of 3.412.2.7 [place] .3.309178 MD Smith [facility] 2021-09-29 2021-09-29 Telephone Nigel 1.2.840.1 [id number] Univers 00:00:00 00:00:00 Jodi Almaguer 52284.1.1 ity of 3.412.2.7 [place] .3.758780 .8 [facility] 2021-09-29 2021-09-29 Telephone Nigel, 1.2.840.1 [id number] Univers 00:00:00 00:00:00 Jodi Tripp 98576.1.1 ity of 3.412.2.7 [place] .3.811004 .8 [facility] 2021-09-11 2021-09-28 [facility] 1.2.840.1 10 [id number] Univers 11:47:00 17:33:00 Encounter Ana Phan 74129.1.1 ity of Crescencio Cooley V. 3.412.2.7 [place] Elham Francis .3.647100 Roberto Bee .8 Severo Kam, Yodit [facility] 2021-09-11 2021-09-28 [facility] Kayden Jordanjenise Lemos 1.2.840.1 10 [id number] Univers 11:47:00 17:33:00 Encounter Ana Phan 71565.1.1 ity of [place]io [place] V. 3.412.2.7 [place] Naisr Lizarragaame .3.621584 Roberto Bee .8 Severo Kam, [facility] 2021-09-28 2021-09-28 Orders Tarik, 1.2.840.1 [id number] Univers 00:00:00 00:00:00 Only Susan Perkins 74251.1.1 it y of 3.412.2.7 [place] .3.459701 .8 [facility] 2021-09-28 2021-09-28 Orders Tarik, 1.2.840.1 [id number] Univers 00:00:00 00:00:00 Only Susan R 11271.1.1 it y of 3.412.2.7 [place] .3.421154 MD Boles8 [facility] 2021-09-28 2021-09-28 Orders Tarik, 1.2.840.1 [id number] Univers 00:00:00 00:00:00 Only Susan R 82144.1.1 it y of 3.412.2.7 [place] .3.650992 MD Boles8 [facility] 2021-09-28 2021-09-28 Orders Tarik, 1.2.840.1 [id number] 3765 Univers 00:00:00 00:00:00 Only Susan R 85584.1.1 it y of 3.412.2.7 [place] .3.394031 MD Boles8 [facility] 2021-09-27 2021-09-27 Orders Tarik, 1.2.840.1 [id number] 8626 Univers 00:00:00 00:00:00 Only Susan R 88005.1.1 it y of 3.412.2.7 [place] .3.536149 MD Boles8 [facility] 2021-09-27 2021-09-27 Orders Tarik, 1.2.840.1 [id number] 9028 Univers 00:00:00 00:00:00 Only Susan R 91234.1.1 it y of 3.412.2.7 [place] .3.916959 MD Boles8 [facility] 2021-09-27 2021-09-27 Orders Tarik, 1.2.840.1 [id number] 1975 Univers 00:00:00 00:00:00 Only Susan R 08919.1.1 it y of 3.412.2.7 [place] .3.850205 MD Boles8 [facility] 2021-09-27 2021-09-27 Orders Tarik, 1.2.840.1 [id number] 4200 Univers 00:00:00 00:00:00 Only Susan R 86577.1.1 it y of 3.412.2.7 [place] .3Ramana041933 MD Smith [facility] 2021-09-27 2021-09-27 Rina Santiago 1.2.840.1 [id number] 10 [id number] Univers 00:00:00 00:00:00 Only , Misti 79006.1.1 i ty of J 3.412.2.7 [place] .3.241475 MD Boles8 [facility] 2021-09-27 2021-09-27 Rina Keller 1.2.840.1 [id number] 7927 Univers 00:00:00 00:00:00 Only Susan R 04102.1.1 it y of 3.412.2.7 [place] .3.786007 MD Boles8 [facility] 2021-09-27 2021-09-27 Rina Keller 1.2.840.1 [id number] 9774 Univers 00:00:00 00:00:00 Only Susan R 50918.1.1 it y of 3.412.2.7 [place] .3.392632 MD Boles8 [facility] 2021-09-27 2021-09-27 Orders Tarik 1.2.840.1 [id number] 7077 Univers 00:00:00 00:00:00 Only Susan R 62933.1.1 it y of 3.412.2.7 [place] .3.323578 MD Boles8 [facility] 2021-09-27 2021-09-27 Rina Keller 1.2.840.1 [id number] 2962 Univers 00:00:00 00:00:00 Only Susan R 66225.1.1 it y of 3.412.2.7 [place] .3Ramana519406 MD Boles8 [facility] 2021-09-27 2021-09-27 Rina Santiago 1.2.840.1 [id number] 10 [id number] Univers 00:00:00 00:00:00 Only , Misti 47984.1.1 i ty of J 3.412.2.7 [place] .3.301137 MD Boles8 [facility] 2021-09-25 2021-09-25 Orders Pamela 1.2.840.1 [id number] 10 [id number] Univers 00:00:00 00:00:00 Only , Misti 97518.1.1 i ty of J 3.412.2.7 [place] .3.770279 .8 [facility] 2021-09-25 2021-09-25 Orders Pamela 1.2.840.1 [id number] 10 [id number] Univers 00:00:00 00:00:00 Only , Misti 65062.1.1 i ty of J 3.412.2.7 [place] .3.799532 .8 [facility] 2021-09-24 2021-09-24 Orders Debbie, 1.2.840.1 [id number] 1093 [id number] Univers 00:00:00 00:00:00 Only [place] 37056.1.1 ity of 3.412.2.7 [place] .3.046537 .8 [facility] 2021-09-24 2021-09-24 Orders Spaswapnilone, 1.2.840.1 [id number] 1093 [id number] Univers 00:00:00 00:00:00 Only [place] 87859.1.1 ity of 3.412.2.7 [place] .3.261974 .8 [facility] 2021-09-23 2021-09-23 Inpatient AMIRA MUNROE MDA MDA [id number] 93 12:37:20 15:09:19 SEVERO [place] derso n 2021-09-23 2021-09-23 Inpatient AMIRA MUNROE MDA MDA [id number] MD 08:49:51 09:14:22 SEVERO [place] derso n 2021-09-22 2021-09-22 Inpatient AMIRA MUNROE MDA MDA [id number] MD 22:09:42 22:16:39 SEVERO [place] derso n 2021-09-22 2021-09-22 Orders Tripp 1.2.840.1 [id number] 6226 Univers 00:00:00 00:00:00 Only Kiarra 79180.1.1 ity of [place] 3.412.2.7 [place] .3.435664 MD Boles8 [facility] 2021-09-22 2021-09-22 Orders Tripp, 1.2.840.1 [id number] 8039 Univers 00:00:00 00:00:00 Only Kiarra 94515.1.1 ity of [place] 3.412.2.7 [place] .3.605513 .8 [facility] 2021-09-21 2021-09-21 [facility] 1.2.840.1 [id number] Univers 11:24:00 23:59:00 Encounter Bam 87382.1.1 it y of [place] 3.412.2.7 [place] .3.124415 MD Boles8 [facility] 2021-09-21 2021-09-21 [facility], 1.2.840.1 [id number] Univers 11:24:00 23:59:00 Encounter Bam 48084.1.1 it y of [place] 3.412.2.7 [place] .3.758315 MD Boles8 [facility] 2021-09-21 2021-09-21 Orders Malaika Ram 1.2.840.1 [id number] 1540 Univers 00:00:00 00:00:00 Only 06389.1.1 ity of 3.412.2.7 [place] .3.106582 MD Boles8 [facility] 2021-09-21 2021-09-21 Orders Nura 1.2.840.1 [id number] 1093 [id number] Univers 00:00:00 00:00:00 Only Cassie 88923.1.1 ity of [place]ya 3.412.2.7 [place] .3.686253 MD Smith [facility] 2021-09-21 2021-09-21 Orders oY, Malaika 1.2.840.1 [id number] 1032 Univers 00:00:00 00:00:00 Only 17536.1.1 ity of 3.412.2.7 [place] .3.157720 MD Smith [facility] 2021-09-21 2021-09-21 Rina Lyman, 1.2.840.1 [id number] 1093 [id number] Univers 00:00:00 00:00:00 Only Cassie 68907.1.1 ity of [place] 3.412.2.7 [place] .3.295659 MD Boles8 [facility] 2021-09-19 2021-09-19 Inpatient EL ETCHEGARAY- MDA MDA 1093 [id number] 19:59:45 20:16:21 Jaspal HUBBARD 2021-09-19 2021-09-19 Inpatient EL ETCHEGARAY- MDA MDA [id number] [id number] 18:00:42 19:01:41 Jaspal HUBBARD 2021-09-17 2021-09-17 Inpatient EL LEXI, MDA MDA [id number] 22:12:00 22:22:49 BELKIS saucedo 2021-09-16 2021-09-16 Inpatient CRESCENCIO LINARES MDA MDA [id number] [id number] 03:41:28 04:09:40 Jaspal saucedo 2021-09-14 2021-09-14 Inpatient CRESCENCIO LINARES MDA MDA 1092 [id number] 16:36:21 16:53:15 Jaspal saucedo 2021-09-14 2021-09-14 Orders Cooley, 1.2.840.1 [id number] 9156 Univers 00:00:00 00:00:00 Only Pavel-Zarina 29228.1.1 ity of 3.412.2.7 [place] .3.761369 .8 [facility] 2021-09-14 2021-09-14 Orders Cooley, 1.2.840.1 [id number] 1802 Univers 00:00:00 00:00:00 Only Pavel-Zarina 86211.1.1 ity of 3.412.2.7 [place] .3.486995 MD Boles8 [facility] 2021-09-12 2021-09-12 Travel 1.2.840.1 1.2.822.836 3449 [id number] Univers 00:00:00 00:00:00 22032.1.1 350.1.13.41 ity of 3.412.2.7 [place].3.698 [place] .3.[place] 084.8 MD Boles8 [facility] 2021-09-12 2021-09-12 Travel 1.2.840.1 1.2.681.736 8466 818381 Univers 00:00:00 00:00:00 35821.1.1 350.1.13.41 ity of 3.412.2.7 [place].3.698 [place] .3.704[place] 084.8 MD Boles8 [facility] 2021-09-11 2021-09-11 Travel 1.2.840.1 1.2.754.936 2351 518936 Univers 00:00:00 00:00:00 24719.1.1 350.1.13.41 ity of 3.412.2.7 [place].3.698 [place] .[place].858504 084.8 MD Boles8 [facility] 2021-09-11 2021-09-11 Travel 1.2.840.1 1.2.837.523 9607 091712 Univers 00:00:00 00:00:00 85898.1.1 350.1.13.41 ity of 3.412.2.7 2.[place]7.3.698 [place] .3.011057 084.8 MD Boles8 [facility] 2021-09-03 2021-09-03 Office Rod Munguia 1.2.840.1 [id number] Methodi 11:15:00 11:15:00 Visit Mauro Brown 72868.1.[address] 3.430.2.7 Hospit a .3.520037 gill .8 2021-09-03 2021-09-03 Office Rod Munguia 1.2.840.1 [id number] Methodi 11:15:00 11:15:00 Visit Mauro Brown 02816.1.[address] 3.430.2.7 Hospit a .3.338965 l .8 2021-09-03 2021-09-03 Travel 1.2.840.1 1.2.850.751 1134 672516 Methodi 00:00:00 00:00:[address] 3.430.2.7 0.2.7.3.698 Ho spita .3.902465 084.8 l .8 2021-09-03 2021-09-03 Travel 1.2.840.1 1.2.957.688 8443 257689 Methodi 00:00:00 00:00:[address] 3.430.2.7 0.2.7.3.698 Ho spita .3.330018 084.8 l .8 2021-07-27 2021-07-27 [facility] 1.2.840.1 [id number] 2099 [id number] Methodi 00:00:00 00:00:[address] 3.430.2.7 Hospit a .3.811078 l .8 2021-07-27 2021-07-27 [facility] 1.2.840.1 [id number] 2099 369653 Methodi 00:00:00 00:00:[address] 3.430.2.7 Hospit a .3.329836 l .8 2021-07-25 2021-07-25 [facility] 1.2.840.1 [id number] Methodi 14:09:06 23:59:00 Encounter Mauro Danielson 27632.1.[address] 3.430.2.7 Hospit a .3.137709 l .8 2021-07-25 2021-07-25 [facility], 1.2.840.1 [id number] Methodi 14:09:06 23:59:00 Encounter Mauro Danielson 59740.1.[address] 3.430.2.7 Hospit a .3.460627 l .8 2021-07-25 2021-07-25 [facility], 1.2.840.1 [id number] Methodi 09:31:07 14:08:00 Encounter Mauro Ames. 10920.1.[address] 3.430.2.7 Hospit a .3.450132 l .8 2021-07-25 2021-07-25 [facility], 1.2.840.1 [id number] Methodi 09:31:07 14:08:00 Encounter Mauro C. 61308.1.[address] 3.430.2.7 Hospit a .3.885506 l .8 2021-07-25 2021-07-25 Travel 1.2.840.1 1.2.270.409 5261 978083 Methodi 00:00:00 00:00:[address] 3.430.2.7 0.2.7.3.698 Ho spita .3.545027 084.8 l .8 2021-07-25 2021-07-25 Travel 1.2.840.1 1.2.370.261 6253 956599 Methodi 00:00:00 00:00:[address] 3.430.2.7 0.2.7.3.698 Ho spita .3.586702 084.8 l .8 2021-07-11 2021-07-11 Telephone Garcia, 1.2.840.1 [id number] Methodi 00:00:00 00:00:[address] 3.430.2.7 Hospit a .3.919543 l .8 2021-07-11 2021-07-11 Telephone Garcia, 1.2.840.1 [id number] 2099153 Methodi 00:00:00 00:00:[address] 3.430.2.7 Hospit a .3.338557 l .8 2021-07-10 2021-07-10 [facility], 1.2.840.1 [id number] Methodi 13:53:44 23:59:00 Encounter Mauro C. 69297.1.[address] 3.430.2.7 Hospit a .3.324782 l .8 2021-07-10 2021-07-10 [facility], 1.2.840.1 [id number] Methodi 13:53:44 23:59:00 Encounter Mauro C. 46557.1.[address] 3.430.2.7 Hospit a .3.161641 l .8 2021-07-10 2021-07-10 [facility], 1.2.840.1 [id number] Methodi 13:53:34 23:59:00 Encounter Mauro C. 17966.1.[address] 3.430.2.7 Hospit a .3.433141 l .8 2021-07-10 2021-07-10 [facility], 1.2.840.1 [id number] Methodi 13:53:34 23:59:00 Encounter Mauro C. 25763.1.[address] 3.430.2.7 Hospit a .3.195681 l .8 2021-07-10 2021-07-10 Travel 1.2.840.1 1.2.518.460 9108 121104 Methodi 00:00:00 00:00:[address] 3.430.2.7 0.2.7.3.698 Ho spita .3.267619 084.8 l .8 2021-07-10 2021-07-10 Travel 1.2.840.1 1.2.002.526 6254 121104 Methodi 00:00:00 00:00:[address] 3.430.2.7 0.2.7.3.698 Ho spita .3.508014 084.8 l .8 2021-06-18 2021-06-18 Travel 1.2.840.1 1.2.337.306 0954 432534 Methodi 00:00:00 00:00:[address] 3.430.2.7 0.2.7.3.698 Ho spita .3.226699 084.8 l .8 2021-06-18 2021-06-18 Orders Garcia, 1.2.840.1 [id number] [id number] 8161 Methodi 00:00:00 00:00:00 Only Inge 99525.1.[address] 3.430.2.7 Hospit a .3.538984 l .8 2021-06-12 2021-06-12 Orders Garcia, 1.2.840.1 [id number] 8868 Methodi 00:00:00 00:00:00 Only Inge 05339.1.[address] 3.430.2.7 Hospit a .3.106494 l .8 2021-06-01 2021-06-01 Telephone Garcia, 1.2.840.1 [id number] 2099 [id number] Methodi 00:00:00 00:00:[address] 3.430.2.7 Hospit a .3.929451 l .8 2021-05-25 2021-05-25 Telephone Garcia, 1.2.840.1 [id number] 2099 210222 Methodi 00:00:00 00:00:[address] 3.430.2.7 Hospit a .3.653279 l .8 2021-05-25 2021-05-25 Travel 1.2.840.1 1.2.616.297 6104 508385 Methodi 00:00:00 00:00:[address] 3.430.2.7 0.2.7.3.698 Ho spita .3.097923 084.8 l .8 2021-05-23 2021-05-23 Office Rod Munguia 1.2.840.1 [id number] Methodi 09:10:00 09:25:44 Visit Mauro Brown 02306.1.[address] 3.430.2.7 Hospit a .3.864084 l .8 2021-05-23 2021-05-23 Travel 1.2.840.1 1.2.774.560 7236 317769 Methodi 00:00:00 00:00:[address] 3.430.2.7 0.2.7.3.698 Ho spita .3.470223 084.8 l .8 2021-05-23 2021-05-23 Outpatient KEVIN [facility] [id number] [place] 00:00:00 00:00:00 [address]ac[address]a Dick Method i st 2021-05-22 2021-05-22 Outpatient R [facility] [place] [id number] Univers 18:16:49 23:59:00 NEIL Aragon [facility] 2021-05-22 2021-05-22 [facility] 1.2.840.114 9 [id number] Univers 18:16:49 23:59:00 Encounter Neil aragon 350.1.13.10 ity of [place].2.[place] [id number] [facility] [address] 2021-05-15 2021-05-15 Outpatient R [facility] [place] [id number] Univers 16:15:00 16:15:00 NEIL Aragon [facility] 2021-05-15 2021-05-15 Tape Transferrer 2, Adc Lab [facility] 1.2.840.114 [id number] Univers 16:15:00 16:15:00 Visit Neil Levine 350.1.1 3.10 ity of [place] 4[place]2.[place].2.[place] [facility] [id number] [address] 2021-02-01 2021-02-01 [facility] 1.2.840.114 [id number] 046 Univers 07:43:00 10:05:00 Encounter Mo Antonio 350.1.13.10 [place]y of [place] 198.6557119 [facility] [address] 2021-02-01 2021-02-01 Surgery [facility] 1.2.840.114 [id number] Univers 08:44:00 09:21:00 Mo Alvarez 350.1.13.10 i ty [place] 413.8284280 [facility] 0[address] 2021-01-30 2021-01-30 Laboratory Only, Adc Test [facility] 1.2.840. 114 [id number] Univers 10:53:15 11:08:15 Only Annie, Mo Alvarez 350.1.1 3.10 [place]2.[place] [phone] [facility] [address] 2021-01-30 2021-01-30 Outpatient R [facility] [id number] Univers 10:30:00 10:30:00 MO manzano of [facility] 2021-01-30 2021-01-30 Orders Doctor LIZZETH 1.2.840.114 [id number] Univers 00:00:00 00:00:00 Only Unassigned, KIMBERLEE 350.1.13.10 ity of [place] [facility] 4.2.7.2.686 Andrew as [id number] [facility] [address] 2020-12-21 2020-12-21 Hospital [facility] 1.2.840.114 [id number] Univers 10:29:00 13:18:00 Encounter Mo Alvarez 350.1.13.10 [place]2.[place] [id number] [facility] [address] 2020-12-21 2020-12-21 Surgery [facility] 1.2.840.114 [id number] 25 Univers 12:37:00 13:12:00 Mo Alvarez 350.1.13.10 i ty [place]2.[place] [id number] [facility] 020 [address] 2020-12-21 2020-12-21 Outpatient Gregorio VALENCIA [facility] OPH [id number] Univers 10:29:00 10:29:00 MO manzano [facility] 2020-12-21 2020-12-21 Orders Doctor MOREAU 1.2.840.114 [id number] Univers 00:00:00 00:00:00 Only UnassignedKIMBERLEE 350.1.13.10 ity [facility] 4.2.7.2.686 Andrew as 011.9923553 [facility] [address] 2020-12-20 2020-12-20 Outpatient Gregorio VALENCIA [facility] [id number] Univers 08:15:00 08:15:00 MO manzano [facility] 2020-12-18 2020-12-18 Laboratory Only, Adc Test [facility] 1.2.840. 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 Chuy, Adc Lab Main [facility] 1.2.8 40.114 [id number] Univers 11:06:12 11:21:12 Visit Mo Valencia 350.1.1 3.10 [facility] [place] [phone] Ny dical [facility] [address] [facility] 2020-12-12 2020-12-12 Outpatient Gregorio VALENCIA [facility] [id number] Univers 10:45:00 10:45:00 MO manzano [facility] 2020-12-12 2020-12-12 Orders Doctor MOREAU 1.2.840.114 [id number] Univers 00:00:00 00:00:00 Only UnassignedKIMBERLEE 350.1.13.10 ity of [place] [facility] 4.2.7.2.686 Andrew as [id number] [address] 2020-03-02 2020-03-02 Ambulatory nullFlavo MNA [id number] Memoria 16:45:00 16:45:00 Pre-Reg r Neurology 08 l [place] 2020-03-02 2020-03-02 Ambulatory nullFlavo MNA [id number] Memoria 16:45:00 16:45:00 Pre-Reg r Neurology 08 l [place] 2020-03-02 2020-03-02 Outpatient GORDO HallSCHHARI MISCHER [id number] 10:45:00 10:45:00 Ilia 08 Mirza 2020-02-23 2020-02-23 Outpatient MHIE MHIE [id number] Memoria 09:30:00 09:30:00 08 gill [place]ow 2019-11-23 2019-11-23 Outpatient MHIE MHIE [id number] Memoria 09:15:00 09:15:00 06 l [place] 2019-11-23 2019-11-23 Outpatient MHIE MHIE [id number] Memoria 09:15:00 09:15:00 06 l Juanjose 2019-11-23 2019-11-23 Outpatient MHIE MHIE [id number] Memoria 09:15:00 09:15:00 07 l Juanjose 2019-11-23 2019-11-23 Outpatient MHIE MHIE [id number] Memoria 09:15:00 09:15:00 07 l [place] 2019-10-29 2019-10-30 Outpt Diag nullFlavo [facility] [id number] Memoria 19:38:00 04:59:00 Services r Outpatient 01 l Imaging [place] 2019-10-29 2019-10-30 Outpt Diag nullFlavo [facility] [id number] Memoria 19:38:00 04:59:00 Services r Outpatient 01 l Imaging [place] 2019-10-29 2019-10-29 Outpatient OMAR HallP MHOIP [id number] 14:38:00 23:59:00 Ilia 01 Mirza 2019-10-15 2019-10-16 Outpatient nullFlavo MNA [id number] Memoria 13:15:00 04:59:59 r Neurology 05 l [place] 2019-10-15 2019-10-16 Outpatient nullFlavo MNA [id number] Memoria 13:15:00 04:59:59 r Neurology 05 l [place] Juanjose 2019-10-15 2019-10-15 Outpatient MIRACLE Hall [facility] [id number] 08:15:00 23:59:59 Ilia 05 [facility] 2019-10-15 2019-10-15 Outpatient MHIE IE [id number] Memoria 08:15:00 08:15:00 05 l [place] 2019-10-11 2019-10-12 Outpt Diag nullFlavo [facility] [id number] Memoria 15:08:00 04:59:00 Services r Outpatient 00 l Imaging [facility] [place] [facility] 2019-10-11 2019-10-12 Outpt Diag nullFlavo [facility] [id number] Memoria 15:08:00 04:59:00 Services r Outpatient 00 l Imaging [facility] [place] [facility] 2019-10-11 2019-10-11 Outpatient Isabel [facility] [id number] 10:08:00 23:59:00 Ilia 00 [place] 2019-10-06 2019-10-07 Outpatient nullFlavo MNA [id number] Memoria 16:15:00 04:59:59 r Neurology 04 l [place] 2019-10-06 2019-10-07 Outpatient nullFlavo MNA [id number] Memoria 16:15:00 04:59:59 r Neurology 04 l [place] 2019-10-06 2019-10-06 [facility] [id number] 11:15:00 23:59:59 Ilia 04 Mirza 2019-10-06 2019-10-06 Outpatient MHIE MHIE [id number] Memoria 11:15:00 11:15:00 04 l Juanjose 2019-07-08 2019-07-08 Ambulatory nullFlavo MNA [id number] Memoria 15:30:00 15:30:00 Pre-Reg r Neurology 03 l [place] Juanjsoe 2019-07-08 2019-07-08 Ambulatory nullFlavo MNA [id number] Memoria 15:30:00 15:30:00 Pre-Reg r Neurology 03 l [place] 2019-07-08 2019-07-08 Outpatient MHIE MHIE [id number] Memoria 10:30:00 10:30:00 03 gill [place] 2019-07-08 2019-07-08 [facility] [id number] 10:30:00 10:30:00 Ilia 03 [place] 2019-05-19 2019-05-19 Ambulatory nullFlavo MNA [id number] Memoria 14:15:00 14:15:00 Pre-Reg r Neurology 02 gill [place] 2019-05-19 2019-05-19 Ambulatory nullFlavo MNA [id number] Memoria 14:15:00 14:15:00 Pre-Reg r Neurology 02 l [place] 2019-05-19 2019-05-19 Outpatient ARIELLE ARIELLE [id number] Memoria 08:15:00 08:15:00 02 gill [place] 2019-05-19 2019-05-19 [facility] [id number] 08:15:00 08:15:00 Ilia Mirza 2019-04-22 2019-04-23 Outpatient nullFlavo MNA [id number] Memoria 20:30:00 05:59:59 r Neurology 01 gill [place] 2019-04-22 2019-04-23 Outpatient nullFlavo MNA [id number] Memoria 20:30:00 05:59:59 r Neurology 01 gill [place] 2019-04-22 2019-04-22 [facility] [id number] 14:30:00 23:59:59 Ilia Mirza 2019-04-22 2019-04-22 Outpatient ARIELLE AREILLE [id number] Memoria 14:30:00 14:30:00 01 gill [place]ow 2019-02-11 2019-02-11 Outpatient C JULIET, [facility] [id number] [place] 16:11:00 23:59:00 [facility] Results Test Description Test Time Test Comments Results Result Comments Source Blood Culture 2022-06-27 22:30:43 Test Item Value Reference Range Interpretation Comme nts Final Report (test code = 8488) No growth Path Review - Bottle/Isolator (test Immunity and antibiotic use may render code = 8499) culture negative. Ongoing infection requires repeat culture. The results have been reviewed and electronically signed by Pathologist:Kwesi Tristan MD, PhD #[id number] [facility] [id number] 10:46:35 Test Item Value Reference Range Interpretation Comments Bili Total (test 0.4 mg/dL <=1.2 Indocyanine Green (ICG) code = 1974-05) may cause fal sely elevated biliru bin results. Total and direct bilirubin must not be measured from s amples containing indo cyanine green. False el evation of total bilirubin can be seen in patient s with IgG concentrations above 28 g/L. Bili Direct (test <=0.3 Indocyanin e Green (ICG) code = 1967-10) may cause fal sely elevated biliru bin results. Total and direct bilirubin must not be measured from s amples containing indo cyanine green. Bili Indirect (test See Note 0.0-0.9 Unable t o calculate code = 1970-04) Indirect Bili cates result due to some par ameters are outside rep ortable range [facility] [id number] 10:46:35 Test Item Value Reference Range Interpretation Comments Bili Total (test 0.4 mg/dL <=1.2 Indocyanine Green (ICG) code = 1974-05) may cause fal sely elevated biliru bin results. Total and direct bilirubin must not be measured from s amples containing indo cyanine green. False el evation of total bilirubin can be seen in patient s with IgG concentrations above 28 g/L. Bili Direct (test <=0.3 Indocyanin e Green (ICG) code = 1967-10) may cause fal sely elevated biliru bin results. Total and direct bilirubin must not be measured from s amples containing indo cyanine green. Bili Indirect (test See Note 0.0-0.9 Unable t o calculate code = 1970-04) Indirect Bili cates result due to some par ameters are outside rep ortable range [facility] [id number] 10:46:35 Test Item Value Reference Range Interpretation Comments Bili Total (test 0.4 mg/dL <=1.2 Indocyanine Green (ICG) code = 1974-05) may cause fal sely elevated biliru bin results. Total and direct bilirubin must not be measured from s amples containing indo cyanine green. False el evation of total bilirubin can be seen in patient s with IgG concentrations above 28 g/L. Bili Direct (test <=0.3 Indocyanin e Green (ICG) code = 1967-10) may cause fal sely elevated biliru bin results. Total and direct bilirubin must not be measured from s amples containing indo cyanine green. Bili Indirect (test See Note 0.0-0.9 Unable t o calculate code = 1970-04) Indirect Bili cates result due to some par ameters are outside rep ortable range [facility] Rate 2022-06-25 10:46:33 Test Item Value Reference Range Interpretation Comments eGFR (test code = 110 See_Comment The eGFRcr [place] 05[address]-5) the 2020 CKD-EP I creatinine equation using creatinine, patient's age, and sex for adults 18 years of age and older. Other fa ctors, especially musc le mass, may affect accuracy and need to be considered.A ccording to the Kidney Dise ase: Improving Global Outcomes (KDIGO) CKD Work Group 2012 Clinical Practice Guidel ine, chronic kidney disease (CKD) is defined as the abnormalities of kidney struc ture or function, prese nt for more than 3 months, with implications fo r health. CKD should be class ified by cause, GFR cosme gory, and albuminuria cat egory. KDIGO guidelines prov florentin the following GFR c ategoriesStage Description GFR mL/min/1.73 m2G1* Normal or high >= 90G2* Mildly decrease d 60-89G3a Mildly to moder ately decreased 45-59 G3b Moderately to severely dec reased 30-44G4 Severely decrea sed 15-29G5 Kidney failure <15*In the absence of evid ence of kidney damage, neither G1 nor G2 fulfill criteri a for CKD. [Automated mess age] The system which ge nerated this result transmit elbert reference range: >=60 mL/ min/1.73 sq. m. The referenc e range was not used to int erpret this result as nataly l/abnormal. [facility] CenterGlomer[facility] Filtration Rate 2022-06-25 10:46:33 Test Item Value Reference Range Interpretation Comments eGFR (test code = 110 See_Comment The eGFRcr [place] calculated with 40174-4) the 2020 CKD-EP I creatinine equation using creatinine, patient's age, and sex for adults 18 years of age and older. Other fa ctors, especially musc le mass, may affect accuracy and need to be considered.A ccording to the Kidney Dise ase: Improving Global Outcomes (KDIGO) CKD Work Group 2012 Clinical Practice Guidel ine, chronic kidney disease (CKD) is defined as the abnormalities of kidney struc ture or function, prese nt for more than 3 months, with implications fo r health. CKD should be class ified by cause, GFR cosme gory, and albuminuria cat egory. KDIGO guidelines prov florentin the following GFR c ategoriesStage Description GFR mL/min/1.73 m2G1* Normal or high >= 90G2* Mildly decrease d 60-89G3a Mildly to moder ately decreased 45-59 G3b Moderately to severely dec reased 30-44G4 Severely decrea sed 15-29G5 Kidney failure <15*In the absence of evid ence of kidney damage, neither G1 nor G2 fulfill criteri a for CKD. [Automated mess age] The system which ge nerated this result transmit elbert reference range: >=60 mL/ min/1.73 sq. m. The referenc e range was not used to int erpret this result as nataly l/abnormal. [facility] Fil[facility] 2022-06-25 10:46:33 Test Item Value Reference Range Interpretation Comments eGFR (test code = 110 See_Comment The eGFRcr [place] 04216-0) the 2020 CKD-EP I creatinine equation using creatinine, patient's age, and sex for adults 18 years of age and older. Other fa ctors, especially musc le mass, may affect accuracy and need to be considered.A ccording to the Kidney Dise ase: Improving Global Outcomes (KDIGO) CKD Work Group 2012 Clinical Practice Guidel ine, chronic kidney disease (CKD) is defined as the abnormalities of kidney struc ture or function, prese nt for more than 3 months, with implications fo r health. CKD should be class ified by cause, GFR cosme gory, and albuminuria cat egory. KDIGO guidelines prov florentin the following GFR c ategoriesStage Description GFR mL/min/1.73 m2G1* Normal or high >= 90G2* Mildly decrease d 60-89G3a Mildly to moder ately decreased 45-59 G3b Moderately to severely dec reased 30-44G4 Severely decrea sed 15-29G5 Kidney failure <15*In the absence of evid ence of kidney damage, neither G1 nor G2 fulfill criteri a for CKD. [Automated mess age] The system which ge nerated this result transmit elbert reference range: >=60 mL/ min/1.73 sq. m. The referenc e range was not used to int erpret this result as nataly l/abnormal. [facility] [id number] 10:46:32 Test Item Value Reference Range Interpretation Comments Uric Acid (test code = 3084-1) 3.3 mg/dL 3.4-7.0 L Lab Interpretation (test code = Abnormal 67137-2) [facility] [id number] 10:46:32 Test Item Value Reference Range Interpretation Comments Uric Acid (test code = 3084-1) 3.3 mg/dL 3.4-7.0 L Lab Interpretation (test code = Abnormal 64648-7) [facility] [id number] 10:46:32 Test Item Value Reference Range Interpretation Comments Uric Acid (test code = 3084-1) 3.3 mg/dL 3.4-7.0 L Lab Interpretation (test code = Abnormal 14008-5) [facility] CenterMagnesium Dpgcn7374-47-35 10:46:31 Test Item Value Reference Range Interpretation Comments Magnesium (test code = 84320-1) 1.7 mg/dL 1.6-2.6 [facility] CenterMagn[facility] Mqizo9700-37-56 10:46:31 Test Item Value Reference Range Interpretation Comments Magnesium (test code = 52349-3) 1.7 mg/dL 1.6-2.6 [facility] CenterMagnesium [id number] 10:46:31 Test Item Value Reference Range Interpretation Comments Magnesium (test code = 20418-9) 1.7 mg/dL 1.6-2.6 [facility] CenterAlkaline Ieksiqladkp0516-73-35 10:46:30 Test Item Value Reference Range Interpretation Comments Alk Phos (test code = 6768-6) 64 U/L 40-129 [facility] CenterAlkaline Dtxgdtfssgn8002-29-90 10:46:30 Test Item Value Reference Range Interpretation Comments Alk Phos (test code = 6768-6) 64 U/L 40-129 [facility] CenterAlkaline Jybahxovczy3002-31-23 10:46:30 Test Item Value Reference Range Interpretation Comments Alk Phos (test code = 6768-6) 64 U/L 40-129 [facility] CenterAlanine Dmnxnxtvviwwvqjx4461-77-61 10:46:29ALT<5<=41 [facility] Fuukjrjyrxxbaovk8298-70-83 10:46:29ALT<5<=41 [facility] Alanine Lvnscjtdjfiiepwh6077-16-10 10:46:29ALT<5<=41 [facility].Serum Creatinine 2022-06-25 10:46:28 Test Item Value Reference Range Interpretation Comments Creatinine (test code = 2160-0) 0.51 mg/dL 0.67-1.17 L Lab Interpretation (test code = Abnormal 86724-7) [facility].Serum Cqknugkwzx8973-58-54 10:46:28 Test Item Value Reference Range Interpretation Comments Creatinine (test code = 2160-0) 0.51 mg/dL 0.67-1.17 L Lab Interpretation (test code = Abnormal 37811-0) [facility].Serum Yupkeziaqk6886-58-04 10:46:28 Test Item Value Reference Range Interpretation Comments Creatinine (test code = 2160-0) 0.51 mg/dL 0.67-1.17 L Lab Interpretation (test code = Abnormal 23613-3) [facility] CenterBUN2023-02-28 10:46:27 Test Item Value Reference Range Interpretation Comments BUN (test code = 3094-0) 9 mg/dL 6-23 [facility] CenterBUN2023-02-28 10:46:27 Test Item Value Reference Range Interpretation Comments BUN (test code = 3094-0) 9 mg/dL - [facility] CenterBUN2023-02-28 10:46:27 Test Item Value Reference Range Interpretation Comments BUN (test code = 3094-0) 9 mg/dL - [facility] CenterAnion [id number] 10:46:26 Test Item Value Reference Range Interpretation Comments Anion Gap (test code 8 See_Comment [Autom ated message] The = 15418-9) system which ge nerated this result transmit elbert reference range : 4 - 14 mEq/L. The refe rence range was not used to interpret this result as normal/abnormal . [facility] CenterAnion [id number] 10:46:26 Test Item Value Reference Range Interpretation Comments Anion Gap (test code 8 See_Comment [Autom ated message] The = 66026-8) system which ge nerated this result transmit elbert reference range : 4 - 14 mEq/L. The refe rence range was not used to interpret this result as normal/abnormal . [facility] CenterAnion [id number] 10:46:26 Test Item Value Reference Range Interpretation Comments Anion Gap (test code 8 See_Comment [Autom ated message] The = 86164-1) system which ge nerated this result transmit elbert reference range : 4 - 14 mEq/L. The refe rence range was not used to interpret this result as normal/abnormal . [facility] CenterChloride Nifgv2079-66-83 10:46:25 Test Item Value Reference Range Interpretation Comments Chloride (test code = 105 See_Comment [Auto mated message] The ) system which ge nerated this result tra nsmitted reference range : 98 - 107 mEq/L. The refe rence range was not u sed to interpret this result as normal/abnormal . [facility] CenterChloride Yqnfm6795-55-23 10:46:25 Test Item Value Reference Range Interpretation Comments Chloride (test code = 105 See_Comment [Auto mated message] The ) system which ge nerated this result tra nsmitted reference range : 98 - 107 mEq/L. The refe rence range was not u sed to interpret this result as normal/abnormal . [facility] CenterChloride Qzwwc1927-61-43 10:46:25 Test Item Value Reference Range Interpretation Comments Chloride (test code = 105 See_Comment [Auto mated message] The ) system which ge nerated this result tra nsmitted reference range : 98 - 107 mEq/L. The refe rence range was not u sed to interpret this result as normal/abnormal . [facility]20[facility]28 10:46:24 Test Item Value Reference Range Interpretation Comments Potassium Lvl (test 3.8 See_Comment [Automa elbert message] The code = 2823-3) system which generated this result tra nsmitted reference range : 3.5 - 5.1 mEq/L. The reference range was not u sed to interpret this result as normal/abnormal . [facility]2023-02-28 10:46:24 Test Item Value Reference Range Interpretation Comments Potassium Lvl (test 3.8 See_Comment [Automa elbert message] The code = 2823-3) system which generated this result tra nsmitted reference range : 3.5 - 5.1 mEq/L. The reference range was not u sed to interpret this result as normal/abnormal . [facility] Centerassium2023-02-28 10:46:24 Test Item Value Reference Range Interpretation Comments Potassium Lvl (test 3.8 See_Comment [Automa elbert message] The code = 2823-3) system which generated this result tra nsmitted reference range : 3.5 - 5.1 mEq/L. The reference range was not u sed to interpret this result as normal/abnormal . [facility]2023-02-28 10:46:23 Test Item Value Reference Range Interpretation Comments Sodium Lvl (test code 139 See_Comment [Auto mated message] The = 2951-2) system which ge nerated this result tra nsmitted reference range : 136 - 145 mEq/L. The refe rence range was not used to interpret this result as normal/abnormal . [facility] Zwxzm9254-09-96 10:46:23 Test Item Value Reference Range Interpretation Comments Sodium Lvl (test code 139 See_Comment [Auto mated message] The = 2951-2) system which ge nerated this result tra nsmitted reference range : 136 - 145 mEq/L. The refe rence range was not used to interpret this result as normal/abnormal . [facility] Rfrym4326-72-58 10:46:23 Test Item Value Reference Range Interpretation Comments Sodium Lvl (test code 139 See_Comment [Auto mated message] The = 7901-2) system which ge nerated this result tra nsmitted reference range : 136 - 145 mEq/L. The refe rence range was not used to interpret this result as normal/abnormal . [facility] CenterGlucose, Pmxoho8921-43-53 10:46:21 Test Item Value Reference Range Interpretation Comments Glucose Random (test 100 mg/dL 70-199 Effecti ve 11/22/15, the code = 2345-7) glucose refer ence intervals have been updated based o n [place] [employer] aroldo delines (Standards of edical Care in Diabete s 2016. Diabetes Care 2 016; 39: S13-S22).Fastin g blood glucose:Normal: 70-99 mg/dLImpaired f asting glucose (increa sed risk for diabetes or pre-diabetes): 100-125 mg/dLDiabetes m ellitus: >/=126 mg/dL Ra ndom blood glucose:N ormal: 70-199 mg/dLNot e: Random glucose >100 mg /dL is associated with increased risk for diabetes [facility] CenterGlucose, Cuypzv3326-90-86 10:46:21 Test Item Value Reference Range Interpretation Comments Glucose Random (test 100 mg/dL 70-199 Effecti ve 11/22/15, the code = 2345-7) glucose refer ence intervals have been updated based o n [place] [employer] aroldo delines (Standards of edical Care in Diabete s 2016. Diabetes Care 2 016; 39: S13-S22).Fastin g blood glucose:Normal: 70-99 mg/dLImpaired f asting glucose (increa sed risk for diabetes or pre-diabetes): 100-125 mg/dLDiabetes m ellitus: >/=126 mg/dL Ra ndom blood glucose:N ormal: 70-199 mg/dLNot e: Random glucose >100 mg /dL is associated with increased risk for diabetes [facility] CenterGlucose, Zygijh4013-19-15 10:46:21 Test Item Value Reference Range Interpretation Comments Glucose Random (test 100 mg/dL 70-199 Effecti ve 11/22/15, the code = 2345-7) glucose refer ence intervals have been updated based o n [place] [employer] aroldo delines (Standards of M edical Care in Diabete s 2016. Diabetes Care 2 016; 39: S13-S22).Fastin g blood glucose:Normal: 70-99 mg/dLImpaired f asting glucose (increa sed risk for diabetes or pre-diabetes): 100-125 mg/dLDiabetes m ellitus: >/=126 mg/dL Ra ndom blood glucose:N ormal: 70-199 mg/dLNot e: Random glucose >100 mg /dL is associated with increased risk for diabetes [facility] CenterPhosphorus Amojr1352-75-31 10:46:20 Test Item Value Reference Range Interpretation Comments Phosphorus (test code = 2777-1) 2.6 mg/dL 2.5-4.5 [facility] CenterPhosphorus [id number] 10:46:20 Test Item Value Reference Range Interpretation Comments Phosphorus (test code = 2777-1) 2.6 mg/dL 2.5-4.5 [facility] CenterPhosphorus [id number] 10:46:20 Test Item Value Reference Range Interpretation Comments Phosphorus (test code = 2777-1) 2.6 mg/dL 2.5-4.5 [facility] CenterCalcium Relfw6782-58-05 10:46:19 Test Item Value Reference Range Interpretation Comments Calcium Lvl (test code = 17632-6) 9.0 mg/dL 8.4-10.2 [facility] CenterCalcium Ufarp3460-08-67 10:46:19 Test Item Value Reference Range Interpretation Comments Calcium Lvl (test code = 95064-5) 9.0 mg/dL 8.4-10.2 [facility] CenterCalcium Rulae2769-04-46 10:46:19 Test Item Value Reference Range Interpretation Comments Calcium Lvl (test code = 13528-9) 9.0 mg/dL 8.4-10.2 [facility] CenterAlbumin Iucnr5537-50-68 10:46:18 Test Item Value Reference Range Interpretation Comments Albumin Lvl (test code = 3.3 See_Comment L [A utomated message] 1750-10) The system Exhbit generated this result transmitted ref erence range: 3.5 - 5. 2 gm/dL. The refe rence range was not u sed to interpret this result as normal/abnor mal. Lab Interpretation (test Abnormal code = 82391-1) [facility] CenterAlbumin Zwaqp9357-46-30 10:46:18 Test Item Value Reference Range Interpretation Comments Albumin Lvl (test code = 3.3 See_Comment L [A utomated message] 1750-10) The system Exhbit generated this result transmitted ref erence range: 3.5 - 5. 2 gm/dL. The refe rence range was not u sed to interpret this result as normal/abnor mal. Lab Interpretation (test Abnormal code = 79686-5) [facility] CenterAlbumin Luatb6906-93-22 10:46:18 Test Item Value Reference Range Interpretation Comments Albumin Lvl (test code = 3.3 See_Comment L [A utomated message] 1750-10) The system Exhbit generated this result transmitted ref erence range: 3.5 - 5. 2 gm/dL. The refe rence range was not u sed to interpret this result as normal/abnor mal. Lab Interpretation (test Abnormal code = 74019-6) [facility] CenterAspartate Aminotransferase 2022-06-25 10:46:17 Test Item Value Reference Range Interpretation Comments AST (test code = 1920-8) 23 U/L <=40 [facility] CenterAspartate Aminotransferase 2022-06-25 10:46:17 Test Item Value Reference Range Interpretation Comments AST (test code = 1920-8) 23 U/L <=40 [facility] CenterAspartate Aminotransferase 2022-06-25 10:46:17 Test Item Value Reference Range Interpretation Comments AST (test code = 1920-8) 23 U/L <=40 [facility] CenterCarbon Dioxide [id number] 10:46:16 Test Item Value Reference Range Interpretation Comments CO2 (test code = 26 See_Comment [Automated message] The 9) system which ge nerated this result transmit elbert reference range : 22 - 29 mEq/L. The refe rence range was not used to interpret this result as normal/abnormal . [facility] CenterCarbon Dioxide Xwrbj7515-07-23 10:46:16 Test Item Value Reference Range Interpretation Comments CO2 (test code = 26 See_Comment [Automated message] 2027-12) system which ge nerated this result transmit elbert reference range : 22 - 29 mEq/L. The refe rence range was not used to interpret this result as normal/abnormal . [facility] CenterCarbon Dioxide Ccpoi3755-22-82 10:46:16 Test Item Value Reference Range Interpretation Comments CO2 (test code = 26 See_Comment [Automated message] 2027-12) system which ge nerated this result transmit elbert reference range : 22 - 29 mEq/L. The refe rence range was not used to interpret this result as normal/abnormal . [facility] CenterLDH2023-02-28 10:42:50 Test Item Value Reference Range Interpretation Comments LDH (test code = 229 U/L 135-225 H Results gre ater than 12334-5) 1651 U/L may no t be reliable due to matrix effect w ith extended diluti on as it exceeds the sample wrapper's recommended carbajal it. Caution should be exercised when interpreting tovar ch values and done in conjunction wit h clinical contex t. Lab Interpretation (test Abnormal code = 68003-2) [facility] CenterLDH2023-02-28 10:42:50 Test Item Value Reference Range Interpretation Comments LDH (test code = 229 U/L 135-225 H Results gre ater than 89317-8) 1651 U/L may no t be reliable due to matrix effect w ith extended diluti on as it exceeds the sample wrapper's recommended carbajal it. Caution should be exercised when interpreting tovar ch values and done in conjunction wit h clinical contex t. Lab Interpretation (test Abnormal code = 57459-5) [facility] CenterLDH2023-02-28 10:42:50 Test Item Value Reference Range Interpretation Comments LDH (test code = 229 U/L 135-225 H Results gre ater than 48189-6) 1651 U/L may no t be reliable due to matrix effect w ith extended diluti on as it exceeds the sample wrapper's recommended carbajal it. Caution should be exercised when interpreting tovar ch values and done in conjunction wit h clinical contex t. Lab Interpretation (test Abnormal code = 37049-8) [facility] CenterDifferential2023-02-28 10:23:19 Test Item Value Reference Range Interpretation Comments Neutrophil % (test code = 55.0 % 42.0-66.0 770-8) Lymphocyte % (test code = 30.3 % 24.0-44.0 736-9) Monocyte % (test code = 12.7 % 2.0-7.0 H 5905-5) Eosinophil % (test code = 1.4 % 1.0-4.0 713-8) Basophil % (test code = 0.3 % 0.0-1.0 706-2) IGRE % (test code = 0.3 % 0.0-0.4 IGRE % c ount 67638-6) includes Metamyelocytes, Myelocytes, and Promyelocytes. Neutrophil Abs (test code 1.91 K/uL 1.70-7.30 = 751-8) Lymphocyte Abs (test code 1.05 K/uL 1.00-4.80 = 731-0) Monocyte Abs (test code = 0.44 K/uL 0.08-0.70 742-7) Eosinophil Abs (test code 0.05 K/uL 0.04-0.40 = 711-2) Basophil Abs (test code = 0.01 K/uL 0.00-0.10 704-7) IG Abs (test code = 0.01 K/uL 0.00-0.04 85737-7) Lab Interpretation (test Abnormal code = 47519-8) [facility] CenterDifferential2023-02-28 10:23:19 Test Item Value Reference Range Interpretation Comments Neutrophil % (test code = 55.0 % 42.0-66.0 770-8) Lymphocyte % (test code = 30.3 % 24.0-44.0 736-9) Monocyte % (test code = 12.7 % 2.0-7.0 H 5905-5) Eosinophil % (test code = 1.4 % 1.0-4.0 713-8) Basophil % (test code = 0.3 % 0.0-1.0 706-2) IGRE % (test code = 0.3 % 0.0-0.4 IGRE % c ount 38123-2) includes Metamyelocytes, Myelocytes, and Promyelocytes. Neutrophil Abs (test code 1.91 K/uL 1.70-7.30 = 751-8) Lymphocyte Abs (test code 1.05 K/uL 1.00-4.80 = 731-0) Monocyte Abs (test code = 0.44 K/uL 0.08-0.70 742-7) Eosinophil Abs (test code 0.05 K/uL 0.04-0.40 = 711-2) Basophil Abs (test code = 0.01 K/uL 0.00-0.10 704-7) IG Abs (test code = 0.01 K/uL 0.00-0.04 01020-3) Lab Interpretation (test Abnormal code = 62440-5) [facility] DfvzbzYbhsrtvkdgus5938-00-74 10:23:19 Test Item Value Reference Range Interpretation Comments Neutrophil % (test code = 55.0 % 42.0-66.0 770-8) Lymphocyte % (test code = 30.3 % 24.0-44.0 736-9) Monocyte % (test code = 12.7 % 2.0-7.0 H 5905-5) Eosinophil % (test code = 1.4 % 1.0-4.0 713-8) Basophil % (test code = 0.3 % 0.0-1.0 706-2) IGRE % (test code = 0.3 % 0.0-0.4 IGRE % c ount 23620-4) includes Metamyelocytes, Myelocytes, and Promyelocytes. Neutrophil Abs (test code 1.91 K/uL 1.70-7.30 = 751-8) Lymphocyte Abs (test code 1.05 K/uL 1.00-4.80 = 731-0) Monocyte Abs (test code = 0.44 K/uL 0.08-0.70 742-7) Eosinophil Abs (test code 0.05 K/uL 0.04-0.40 = 711-2) Basophil Abs (test code = 0.01 K/uL 0.00-0.10 704-7) IG Abs (test code = 0.01 K/uL 0.00-0.04 47211-4) Lab Interpretation (test Abnormal code = 72351-0) [facility].JYH1463-07-93 10:23:05 Test Item Value Reference Range Interpretation Comments WBC (test code = 3.5 K/uL 4.0-11.0 L 6690-2) RBC (test code = 789-8) 2.96 See_Comment L [Au tomated message] The system Exhbit generated this result transmitted ref erence range: 4.50 - 6 .00 M/uL. The refer ence range was not u sed to interpret this result as normal/abnor mal. Hgb (test code = 718-7) 10.1 See_Comment L [Au tomated message] The system Exhbit generated this result transmitted ref erence range: 14.0 - 1 8.0 gm/dL. The refe rence range was not u sed to interpret this result as normal/abnor mal. Hct (test code = 29.7 % 40.0-54.0 L 4544-3) MCV (test code = 787-2) 100 fL 82-98 H MCH (test code = 785-6) 34.1 pg 27.0-31.0 H MCHC (test code = 34.0 See_Comment [Automate d message] 786-4) The system Exhbit generated this result transmitted ref erence range: 31.0 - 3 6.0 gm/dL. The refe rence range was not u sed to interpret this result as normal/abnor mal. RDW-SD (test code = 46.5 fL 35.1-46.3 H 01222-1) RDW-CV (test code = 12.6 % 12.0-15.5 788-0) Platelet count (test 150 K/uL 140-440 code = 777-3) MPV (test code = 10.4 fL 4.0-10.4 57429-3) INRBC (test code = 0.0 % <=0.0 The INRBC (instrument 61596-7) NRBC) value ref lects the enumeration of nucleated red b lood cells contained in a 200uL sampleof whole blood analyzed by the instrument. Thi s value maydiffer from the NRBC value repo rted in a manual differential,wh ich is based on a 100 cell differential. Lab Interpretation Abnormal (test code = 08506-7) [facility].EXV3376-93-52 10:23:05 Test Item Value Reference Range Interpretation Comments WBC (test code = 3.5 K/uL 4.0-11.0 L 6690-2) RBC (test code = 789-8) 2.96 See_Comment L [Au tomated message] The system Exhbit generated this result transmitted ref erence range: 4.50 - 6 .00 M/uL. The refer ence range was not u sed to interpret this result as normal/abnor mal. Hgb (test code = 718-7) 10.1 See_Comment L [Au tomated message] The system Exhbit generated this result transmitted ref erence range: 14.0 - 1 8.0 gm/dL. The refe rence range was not u sed to interpret this result as normal/abnor mal. Hct (test code = 29.7 % 40.0-54.0 L 4544-3) MCV (test code = 787-2) 100 fL 82-98 H MCH (test code = 785-6) 34.1 pg 27.0-31.0 H MCHC (test code = 34.0 See_Comment [Automate d message] 786-4) The system Exhbit generated this result transmitted ref erence range: 31.0 - 3 6.0 gm/dL. The refe rence range was not u sed to interpret this result as normal/abnor mal. RDW-SD (test code = 46.5 fL 35.1-46.3 H 61990-4) RDW-CV (test code = 12.6 % 12.0-15.5 788-0) Platelet count (test 150 K/uL 140-440 code = 777-3) MPV (test code = 10.4 fL 4.0-10.4 98807-9) INRBC (test code = 0.0 % <=0.0 The INRBC (instrument 68152-0) NRBC) value ref lects the enumeration of nucleated red b lood cells contained in a 200uL sampleof whole blood analyzed by the instrument. Thi s value maydiffer from the NRBC value repo rted in a manual differential,wh ich is based on a 100 cell differential. Lab Interpretation Abnormal (test code = 04590-2) [facility].LLL6413-31-48 10:23:05 Test Item Value Reference Range Interpretation Comments WBC (test code = 3.5 K/uL 4.0-11.0 L 6690-2) RBC (test code = 789-8) 2.96 See_Comment L [Au tomated message] The system Exhbit generated this result transmitted ref erence range: 4.50 - 6 .00 M/uL. The refer ence range was not u sed to interpret this result as normal/abnor mal. Hgb (test code = 718-7) 10.1 See_Comment L [Au tomated message] The system Exhbit generated this result transmitted ref erence range: 14.0 - 1 8.0 gm/dL. The refe rence range was not u sed to interpret this result as normal/abnor mal. Hct (test code = 29.7 % 40.0-54.0 L 4544-3) MCV (test code = 787-2) 100 fL 82-98 H MCH (test code = 785-6) 34.1 pg 27.0-31.0 H MCHC (test code = 34.0 See_Comment [Automate d message] 786-4) The system Exhbit generated this result transmitted ref erence range: 31.0 - 3 6.0 gm/dL. The refe rence range was not u sed to interpret this result as normal/abnor mal. RDW-SD (test code = 46.5 fL 35.1-46.3 H 36456-9) RDW-CV (test code = 12.6 % 12.0-15.5 788-0) Platelet count (test 150 K/uL 140-440 code = 777-3) MPV (test code = 10.4 fL 4.0-10.4 87790-3) INRBC (test code = 0.0 % <=0.0 The INRBC (instrument 15303-0) NRBC) value ref lects the enumeration of nucleated red b lood cells contained in a 200uL sampleof whole blood analyzed by the instrument. Thi s value maydiffer from the NRBC value repo rted in a manual differential,wh ich is based on a 100 cell differential. Lab Interpretation Abnormal (test code = 60671-1) [facility] [id number] 22:44:56 Test Item Value Reference Range Interpretation Comments Final Report (test code Pseudomonas A = 8488) aeruginosaTime to detection: 00 days 21 hours 49 minutesFor susceptibility refer to Culture [id number] notification, refer to accession: [id number] Path Review - The results have been A Bottle/Isolator (test reviewed and code = 8499) electronically signed by Pathologist:Kwesi Tirstan MD, PhD #[id number] JOAQUIN (test code = JOAQUIN) Peripheral Lab Interpretation Abnormal (test code = 78327-6) [facility]Blood [id number] 22:44:56 Test Item Value Reference Range Interpretation Comments Final Report (test code Pseudomonas A = 8488) aeruginosaTime to detection: 00 days 21 hours 49 minutesFor susceptibility refer to Culture [id number] notification, refer to accession: [id number] Path Review - The results have been A Bottle/Isolator (test reviewed and code = 8499) electronically signed by Pathologist:Kwesi Tristan MD, PhD #[id number] JOAQUIN (test code = JOAQUIN) Peripheral Lab Interpretation Abnormal (test code = 67515-4) [facility]Blood [id number] 17:08:19 Test Item Value Reference Range Interpretation Comments Final Report (test code Pseudomonas A = 8488) aeruginosaTime to detection: 00 days 21 hours 49 minutesFor susceptibility refer to Culture [id number] notification, refer to accession: [id number] JOAQUIN (test code = JOAQUIN) Peripheral Lab Interpretation Abnormal (test code = 88337-5) [facility] CenterTMP Interpretation Antibody Screen [id number] 16:12:36 Test Item Value Reference Range Interpretation Comments TMP Auto Neg At the present ABSC Interp time, patient (test code = plasma shows no ____ARIN PAINTING 7535) evidence of RBC KNOPFELMACHE R alloantibodies. Panda VALLEJO elbert by: ARIN VALLEJO,Dictated Date/Time: 05.30 10:12 AM [employer] Tr anscribed Date/Time: 05.30 10:12 AM CSTElectronical ly Signed By: ARIN STEVENSON, on 06.24.2022 10:[address] [facility] CenterTMP Interpretation Antibody Screen [id number] 16:12:36 Test Item Value Reference Range Interpretation Comments TMP Auto Neg At the present ABSC Interp time, patient (test code = plasma shows no ____ARIN PAINTING 7535) evidence of RBC KNOPFELMACHE R alloantibodies. Panda VALLEJO elbert by: ARIN VALLEJO,Dictated Date/Time: 05.30 10:12 AM [employer] Tr anscribed Date/Time: 05.30 10:12 AM CSTElectronical ly Signed By: ARIN STEVENSON, on 06.24.2022 10:[address] [facility] CenterTMP Interpretation Antibody Screen [id number] 16:12:36 Test Item Value Reference Range Interpretation Comments TMP Auto Neg At the present ABSC Interp time, patient (test code = plasma shows no ____ARIN PAINTING 7535) evidence of RBC KNOPFELMACHE R alloantibodies. Panda VALLEJO elbert by: ARIN VALLEJO,Dictated Date/Time: 05.30 10:12 AM [employer] Tr anscribed Date/Time: 05.30 10:12 AM CSTElectronical ly Signed By: ARIN STEVENSON, on 06.24.2022 10:[address] [facility] CenterTMP Interpretation Antibody Screen [id number] 16:12:36 Test Item Value Reference Range Interpretation Comments TMP Auto Neg At the present ABSC Interp time, patient (test code = plasma shows no ____ARIN PAINTING 7535) evidence of RBC KNOPFELMACHE R alloantibodies. Panda VALLEJO elbert by: ARIN VALLEJO,Dictated Date/Time: 05.30 10:12 AM [employer] Tr anscribed Date/Time: 05.30 10:12 AM CSTElectronical ly Signed By: ARIN STEVENSON, on 06.24.2022 10:[address] [facility] CenterLDH2023-02-27 13:59:10 Test Item Value Reference Range Interpretation Comments LDH (test code = 229 U/L 135-225 H Results gre ater than 27505-1) 1651 U/L may no t be reliable due to matrix effect w ith extended diluti on as it exceeds the sample wrapper's recommended carbajal it. Caution should be exercised when interpreting tovar ch values and done in conjunction wit h clinical contex t. Lab Interpretation (test Abnormal code = 68866-5) [facility] CenterFractionated [id number] 13:44:58 Test Item Value Reference Range Interpretation Comments Bili Total (test 0.4 mg/dL <=1.2 Indocyanine Green (ICG) code = 1975-2) may cause fal sely elevated biliru bin results. Total and direct bilirubin must not be measured from s amples containing indo cyanine green. False el evation of total bilirubin can be seen in patient s with IgG concentrations above 28 g/L. Bili Direct (test <=0.3 Indocyanin e Green (ICG) code = 1967-10) may cause fal sely elevated biliru bin results. Total and direct bilirubin must not be measured from s amples containing indo cyanine green. Bili Indirect (test See Note 0.0-0.9 Unable t o calculate code = 1970-04) Indirect Bili cates result due to some par ameters are outside rep ortable range [facility] CenterGlomerular Filtration Rate 2022-06-24 13:44:56 Test Item Value Reference Range Interpretation Comments eGFR (test code = 109 See_Comment The eGFRcr is calculated with 72501-2) the 2020 CKD-EP I creatinine equation using creatinine, patient's age, and sex for adults 18 years of age and older. Other fa ctors, especially musc le mass, may affect accuracy and need to be considered.A ccording to the Kidney Dise ase: Improving Global Outcomes (KDIGO) CKD Work Group 2012 Clinical Practice Guidel ine, chronic kidney disease (CKD) is defined as the abnormalities of kidney struc ture or function, prese nt for more than 3 months, with implications fo r health. CKD should be class ified by cause, GFR cosme gory, and albuminuria cat egory. KDIGO guidelines prov florentin the following GFR c ategoriesStage Description GFR mL/min/1.73 m2G1* Normal or high >= 90G2* Mildly decrease d 60-89G3a Mildly to moder ately decreased 45-59 G3b Moderately to severely dec reased 30-44G4 Severely decrea sed 15-29G5 Kidney failure <15*In the absence of evid ence of kidney damage, neither G1 nor G2 fulfill criteri a for CKD. [Automated mess age] The system which ge nerated this result transmit elbert reference range: >=60 mL/ min/1.73 sq. m. The referenc e range was not used to int erpret this result as nataly l/abnormal. [facility] CenterUric [id number] 13:44:55 Test Item Value Reference Range Interpretation Comments Uric Acid (test code = 3084-1) 3.3 mg/dL 3.4-7.0 L Lab Interpretation (test code = Abnormal 41467-6) [facility] CenterMagnesium [id number] 13:44:54 Test Item Value Reference Range Interpretation Comments Magnesium (test code = 28566-6) 1.7 mg/dL 1.6-2.6 [facility] CenterAlkaline [id number] 13:44:53 Test Item Value Reference Range Interpretation Comments Alk Phos (test code = 6768-6) 69 U/L 40-129 [facility] CenterAlanine Zcfsubfwexilmwcn6896-16-82 13:44:52ALT<5<=41 U/LUT [facility]ITALUn[facility].Serum Jwxixyrdjz0062-30-36 13:44:51 Test Item Value Reference Range Interpretation Comments Creatinine (test code = 2160-0) 0.54 mg/dL 0.67-1.17 L Lab Interpretation (test code = Abnormal 76427-4) [facility] CenterBUN2023-02-27 13:44:50 Test Item Value Reference Range Interpretation Comments BUN (test code = 3094-0) 8 mg/dL 6-23 [facility] CenterAnion [id number] 13:44:49 Test Item Value Reference Range Interpretation Comments Anion Gap (test code 9 See_Comment [Autom ated message] The = 63825-3) system which ge nerated this result transmit elbert reference range : 4 - 14 mEq/L. The refe rence range was not used to interpret this result as normal/abnormal . [facility] CenterChloride [id number] 13:44:48 Test Item Value Reference Range Interpretation Comments Chloride (test code = 104 See_Comment [Auto mated message] The ) system which ge nerated this result tra nsmitted reference range : 98 - 107 mEq/L. The refe rence range was not u sed to interpret this result as normal/abnormal . [facility] CenterPotassium2023-02-27 13:44:47 Test Item Value Reference Range Interpretation Comments Potassium Lvl (test 3.9 See_Comment [Automa elbert message] The code = 2823-3) system which generated this result tra nsmitted reference range : 3.5 - 5.1 mEq/L. The reference range was not u sed to interpret this result as normal/abnormal . [facility] Hospitalodium [id number] 13:44:46 Test Item Value Reference Range Interpretation Comments Sodium Lvl (test code 139 See_Comment [Auto mated message] The = 2951-2) system which ge nerated this result tra nsmitted reference range : 136 - 145 mEq/L. The refe rence range was not used to interpret this result as normal/abnormal . [facility] CenterGlucose, [id number] 13:44:44 Test Item Value Reference Range Interpretation Comments Glucose Random (test 101 mg/dL 70-199 Effecti ve 11/22/15, the code = 2345-7) glucose refer ence intervals have been updated based o n [place] [employer] aroldo delines (Standards of M edical Care in Diabete s 2016. Diabetes Care 2 016; 39: S13-S22).Fastin g blood glucose:Normal: 70-99 mg/dLImpaired f asting glucose (increa sed risk for diabetes or pre-diabetes): 100-125 mg/dLDiabetes m ellitus: >/=126 mg/dL Ra ndom blood glucose:N ormal: 70-199 mg/dLNot e: Random glucose >100 mg /dL is associated with increased risk for diabetes [facility] CenterPhosphorus [id number] 13:44:43 Test Item Value Reference Range Interpretation Comments Phosphorus (test code = 2777-1) 2.3 mg/dL 2.5-4.5 L Lab Interpretation (test code = Abnormal 48644-4) [facility] CenterCalcium [id number] 13:44:42 Test Item Value Reference Range Interpretation Comments Calcium Lvl (test code = 57104-1) 9.1 mg/dL 8.4-10.2 [facility] CenterAlbumin [id number] 13:44:41 Test Item Value Reference Range Interpretation Comments Albumin Lvl (test code 3.5 See_Comment [Aut omated message] The = 4881-7) system which ge nerated this result tra nsmitted reference range : 3.5 - 5.2 gm/dL. The refe rence range was not used to interpret this result as normal/abnormal . [facility] CenterAspartate Aminotransferase 2022-06-24 13:44:40 Test Item Value Reference Range Interpretation Comments AST (test code = 1920-8) 24 U/L <=40 [facility] CenterCarbon Dioxide [id number] 13:44:39 Test Item Value Reference Range Interpretation Comments CO2 (test code = 26 See_Comment [Automated message] The 2027-12) system which ge nerated this result transmit elbert reference range : 22 - 29 mEq/L. The refe rence range was not used to interpret this result as normal/abnormal . [facility] CenterDifferential2023-02-27 13:18:41 Test Item Value Reference Range Interpretation Comments Neutrophil % (test code = 64.5 % 42.0-66.0 770-8) Lymphocyte % (test code = 23.0 % 24.0-44.0 L 736-9) Monocyte % (test code = 10.3 % 2.0-7.0 H 5905-5) Eosinophil % (test code = 1.8 % 1.0-4.0 713-8) Basophil % (test code = 0.0 % 0.0-1.0 706-2) IGRE % (test code = 0.4 % 0.0-0.4 IGRE % c ount 19799-7) includes Metamyelocytes, Myelocytes, and Promyelocytes. Neutrophil Abs (test code 2.95 K/uL 1.70-7.30 = 751-8) Lymphocyte Abs (test code 1.05 K/uL 1.00-4.80 = 731-0) Monocyte Abs (test code = 0.47 K/uL 0.08-0.70 742-7) Eosinophil Abs (test code 0.08 K/uL 0.04-0.40 = 711-2) Basophil Abs (test code = 0.00 K/uL 0.00-0.10 704-7) IG Abs (test code = 0.02 K/uL 0.00-0.04 63033-3) Lab Interpretation (test Abnormal code = 98390-4) [facility].KEM7921-42-45 13:18:28 Test Item Value Reference Range Interpretation Comments WBC (test code = 4.6 K/uL 4.0-11.0 6690-2) RBC (test code = 789-8) 3.31 See_Comment L [Au tomated message] The system Exhbit generated this result transmitted ref erence range: 4.50 - 6 .00 M/uL. The refer ence range was not u sed to interpret this result as normal/abnor mal. Hgb (test code = 718-7) 11.1 See_Comment L [Au tomated message] The system Exhbit generated this result transmitted ref erence range: 14.0 - 1 8.0 gm/dL. The refe rence range was not u sed to interpret this result as normal/abnor mal. Hct (test code = 32.7 % 40.0-54.0 L 4544-3) MCV (test code = 787-2) 99 fL 82-98 H MCH (test code = 785-6) 33.5 pg 27.0-31.0 H MCHC (test code = 33.9 See_Comment [Automate d message] 786-4) The system Exhbit generated this result transmitted ref erence range: 31.0 - 3 6.0 gm/dL. The refe rence range was not u sed to interpret this result as normal/abnor mal. RDW-SD (test code = 46.4 fL 35.1-46.3 H 64483-4) RDW-CV (test code = 12.8 % 12.0-15.5 788-0) Platelet count (test 173 K/uL 140-440 code = 777-3) MPV (test code = 10.1 fL 4.0-10.4 35691-6) INRBC (test code = 0.0 % <=0.0 The INRBC (instrument 29760-9) NRBC) value ref lects the enumeration of nucleated red b lood cells contained in a 200uL sampleof whole blood analyzed by the instrument. Thi s value maydiffer from the NRBC value repo rted in a manual differential,wh ich is based on a 100 cell differential. Lab Interpretation Abnormal (test code = 70639-7) [facility] CenterAntibody [id number] 18:49:47 Test Item Value Reference Range Interpretation Comments ABSC. (test code = 890-4) Negative ABSC [facility] CenterAntibody [id number] 18:49:47 Test Item Value Reference Range Interpretation Comments ABSC. (test code = 890-4) Negative ABSC [facility] CenterAntibody [id number] 18:49:47 Test Item Value Reference Range Interpretation Comments ABSC. (test code = 890-4) Negative ABSC [facility] CenterAntibody [id number] 18:49:47 Test Item Value Reference Range Interpretation Comments ABSC. (test code = 890-4) Negative ABSC [facility] CenterABORh2023-02-26 18:49:46 Test Item Value Reference Range Interpretation Comments ABORh. (test code = 882-1) A POS [facility] CenterABORh2023-02-26 18:49:46 Test Item Value Reference Range Interpretation Comments ABORh. (test code = 882-1) A POS [facility] CenterABORh2023-02-26 18:49:46 Test Item Value Reference Range Interpretation Comments ABORh. (test code = 882-1) A POS [facility] CenterABORh2023-02-26 18:49:46 Test Item Value Reference Range Interpretation Comments ABORh. (test code = 882-1) A POS [facility] CenterClot Expiration [id number] 18:49:34 Test Item Value Reference Range Interpretation Comments T & S Expiration (test code = 06/26/20225317) [facility] CenterClot Expiration [id number] 18:49:34 Test Item Value Reference Range Interpretation Comments T & S Expiration (test code = 06/26/20225317) [facility] CenterClot Expiration [id number] 18:49:34 Test Item Value Reference Range Interpretation Comments T & S Expiration (test code = 06/26/20225317) [facility] CenterClot Expiration [id number] 18:49:34 Test Item Value Reference Range Interpretation Comments T & S Expiration (test code = 06/26/2022 5318) [facility] CenterHBV DNA [id number] 01:35:42 Test Item Value Reference Range Interpretation Comments HBV DNA Qnt-Sanchez Undetected Undetected IU/mL Result in log IU/mL is (test code = Undetected. 09325-4) ----ADDITIO NAL INFORMATION---- ----The quantif ication range of this a ssay is 10 to1,000,000,000 IU/mL (1.00 log to 9. 00 log IU/mL). Testing was performed using the lucas HBV test ([employer] with the lucas 6800 System. Test Pe rformed by:[place] [id number] Director: Jose L Nieto M.D. Ph. D.; CLIA# [id number] [facility] CenterHBV DNA [id number] 01:35:42 Test Item Value Reference Range Interpretation Comments HBV DNA Qnt-Sanchez Undetected Undetected IU/mL Result in log IU/mL is (test code = Undetected. 18125-9) ----ADDITIO NAL INFORMATION---- ----The quantif ication range of this a ssay is 10 to1,000,000,000 IU/mL (1.00 log to 9. 00 log IU/mL). Testing was performed using the lucas HBV test ([employer] with the lucas 6800 System. Test Pe rformed by:[place] [id number] Director: Jose L Nieto M.D. Ph. D.; CLIA# [id number] [facility] CenterHBV DNA [id number] 01:35:42 Test Item Value Reference Range Interpretation Comments HBV DNA Qnt-Sanchez Undetected Undetected IU/mL Result in log IU/mL is (test code = Undetected. 09137-9) ----ADDITIO NAL INFORMATION---- ----The quantif ication range of this a ssay is 10 to1,000,000,000 IU/mL (1.00 log to 9. 00 log IU/mL). Testing was performed using the lucas HBV test ([employer] with the lucas 6800 System. Test Pe rformed by:[place] [id number] Director: Jose L Nieto M.D. Ph. D.; CLIA# [id number] [facility] CenterHBV DNA [id number] 01:35:42 Test Item Value Reference Range Interpretation Comments HBV DNA [facility] Undetected Undetected IU/mL Result in log IU/mL is (test code = Undetected. 09614-1) ----ADDITIO NAL INFORMATION---- ----The quantif ication range of this a ssay is 10 to1,000,000,000 IU/mL (1.00 log to 9. 00 log IU/mL). Testing was performed using the lucas HBV test ([employer] with the lucas 6800 System. Test Pe rformed by:[place] [id number] Director: Jose L Nieto M.D. Ph. D.; CLIA# [id number] [facility] CenterUrine Opmbhbt2879-61-08 00:10:47 Test Item Value Reference Range Interpretation Comments Final Report (test No growth code = 8488) Path Review - Urine The results have been (test code = 8483) reviewed and electronically signed by Pathologist:KAREL PABLO MD #[id number] [facility] CenterUrine [id number] 00:10:47 Test Item Value Reference Range Interpretation Comments Final Report (test No growth code = 8488) Path Review - Urine The results have been (test code = 8483) reviewed and electronically signed by Pathologist:KAREL PABLO MD #[id number] [facility] Ltsfbrt1244-02-69 00:10:47 Test Item Value Reference Range Interpretation Comments Final Report (test No growth code = 8488) Path Review - Urine The results have been (test code = 8483) reviewed and electronically signed by Pathologist:KAREL PABLO MD #[id number] [facility] Vjlqcuo0906-91-47 00:10:47 Test Item Value Reference Range Interpretation Comments Final Report (test No growth code = 8488) Path Review - Urine The results have been (test code = 8483) reviewed and electronically signed by Pathologist:KAREL PABLO MD #[id number] [facility] CenterHepatitis C Virus RNA Detect/Quant 2022-06-21 21:10:35 Test Item Value Reference Range Interpretation Comments HepC RNA PCR Undetected Undetected IU/mL Result in l og IU/mL is RonakWilmerding (test Undetected. code = 14394-8) -------ADDITIO NAL INFORMATION---- ----The quantif ication range of this a ssay is 15 to 100,000,000I U/mL (1.18 log to 8.00 log IU/mL). Testing was per formedusing the lucas HCV t est ([employer]with the c ziyad 6800 System. Test Pe rformed by:[place] [id number] Director: Jose L Nieto M.D. Ph. D.; CLIA# [id number] [facility] CenterHepatitis C Virus RNA Detect/Quant 2022-06-21 21:10:35 Test Item Value Reference Range Interpretation Comments HepC RNA PCR Undetected Undetected IU/mL Result in l og IU/mL is [facility] HospitalQuentinWilmerding (test Undetected. code = 29730-1) -------ADDITIO NAL INFORMATION---- ----The quantif ication range of this a ssay is 15 to 100,000,000I U/mL (1.18 log to 8.00 log IU/mL). Testing was per formedusing the lucas HCV t est ([employer]with the c ziyad 6800 System. Test Pe rformed by:[place] [id number] Director: Jose L Nieto M.D. Ph. D.; CLIA# [id number] [facility] CenterHepatitis C Virus RNA Detect/Quant 2022-06-21 21:10:35 Test Item Value Reference Range Interpretation Comments HepC RNA PCR Undetected Undetected IU/mL Result in l og IU/mL is Qnt-Wilmerding (test Undetected. code = 64579-0) -------ADDITIO NAL INFORMATION---- ----The quantif ication range of this a ssay is 15 to 100,000,000I U/mL (1.18 log to 8.00 log IU/mL). Testing was per formedusing the lucas HCV t est ([employer]with the c ziyad 6800 System. Test Pe rformed by:[place] [id number] Director: Jose L Nieto M.D. Ph. D.; CLIA# [id number] [facility] CenterHeuofl health - medical center southtis C Virus RNA Detect/Quant 2022-06-21 21:10:35 Test Item Value Reference Range Interpretation Comments HepC RNA PCR Undetected Undetected IU/mL Result in l og IU/mL is Qnt-Wilmerding (test Undetected. code = 09996-6) -------ADDITIO NAL INFORMATION---- ----The quantif ication range of this a ssay is 15 to 100,000,000I U/mL (1.18 log to 8.00 log IU/mL). Testing was per formedusing the lucas HCV t est ([employer]with the c ziyad 6800 System. Test Pe rformed by:[address], [place], [place] [address]Lab Director: Jose L Nieto M.D. Ph. D.; CLIA# [id number] [facility] CenterLDH2023-02-24 13:25:25 Test Item Value Reference Range Interpretation Comments LDH (test code = 250 U/L 135-225 H Results gre ater than 71766-2) 1651 U/L may no t be reliable due to matrix effect w ith extended diluti on as it exceeds the sample wrapper's recommended carbajal it. Caution should be exercised when interpreting tovar ch values and done in conjunction wit h clinical contex t. Lab Interpretation (test Abnormal code = 78771-0) [facility] CenterFractionated Jmwbhixex8112-58-93 13:25:02Bili Total<0.3<=1.2 mg/dLUT [facility] HOSPITALUnTexas Health [facility] Hospital AzleGlomerular Filtration [id number] 13:25:01 Test Item Value Reference Range Interpretation Comments eGFR (test code = 107 See_Comment The eGFRcr is calculated with 52339-4) the 2020 CKD-EP I creatinine equation using creatinine, patient's age, and sex for adults 18 years of age and older. Other fa ctors, especially musc le mass, may affect accuracy and need to be considered.A ccording to the Kidney Dise ase: Improving Global Outcomes (KDIGO) CKD Work Group 2012 Clinical Practice Guidel ine, chronic kidney disease (CKD) is defined as the abnormalities of kidney struc ture or function, prese nt for more than 3 months, with implications fo r health. CKD should be class ified by cause, GFR cosme gory, and albuminuria cat egory. KDIGO guidelines prov florentin the following GFR c ategoriesStage Description GFR mL/min/1.73 m2G1* Normal or high >= 90G2* Mildly decrease d 60-89G3a Mildly to moder ately decreased 45-59 G3b Moderately to severely dec reased 30-44G4 Severely decrea sed 15-29G5 Kidney failure <15*In the absence of evid ence of kidney damage, neither G1 nor G2 fulfill criteri a for CKD. [Automated mess age] The system which ge nerated this result transmit elbert reference range: >=60 mL/ min/1.73 sq. m. The referenc e range was not used to int erpret this result as nataly l/abnormal. [facility] CenterUric [id number] 13:25:00 Test Item Value Reference Range Interpretation Comments Uric Acid (test code = 3084-1) 3.7 mg/dL 3.4-7.0 [facility] CenterMagnesium [id number] 13:24:59 Test Item Value Reference Range Interpretation Comments Magnesium (test code = 60873-9) 1.6 mg/dL 1.6-2.6 [facility] CenterAlkaline [id number] 13:24:58 Test Item Value Reference Range Interpretation Comments Alk Phos (test code = 6768-6) 66 U/L 40-129 [facility] CenterAlanine Bmuxhdmbnbphxggy7048-36-27 13:24:57 Test Item Value Reference Range Interpretation Comments ALT (test code = 1742-6) 6 U/L <=41 [facility] CenterGlucose, [id number] 13:24:56 Test Item Value Reference Range Interpretation Comments Glucose Random (test 98 mg/dL 70-199 Effecti ve 11/22/15, the code = 2345-7) glucose refer ence intervals have been updated based o n [place] [employer] aroldo delines (Standards of M edical Care in Diabete s 2016. Diabetes Care 2 016; 39: S13-S22).Fastin g blood glucose:Normal: 70-99 mg/dLImpaired f asting glucose (increa sed risk for diabetes or pre-diabetes): 100-125 mg/dLDiabetes m ellitus: >/=126 mg/dL Ra ndom blood glucose:N ormal: 70-199 mg/dLNot e: Random glucose >100 mg /dL is associated with increased risk for diabetes [facility].Serum [id number] 13:24:55 Test Item Value Reference Range Interpretation Comments Creatinine (test code = 2160-0) 0.57 mg/dL 0.67-1.17 L Lab Interpretation (test code = Abnormal 04609-1) [facility] CenterAnion [id number] 13:24:54 Test Item Value Reference Range Interpretation Comments Anion Gap (test code 12 See_Comment [Autom ated message] The = 95011-8) system which ge nerated this result transmit elbert reference range : 4 - 14 mEq/L. The refe rence range was not used to interpret this result as normal/abnormal . [facility] CenterPhosphorus [id number] 13:24:53 Test Item Value Reference Range Interpretation Comments Phosphorus (test code = 2777-1) 2.5 mg/dL 2.5-4.5 [facility] CenterBUN2023-02-24 13:24:52 Test Item Value Reference Range Interpretation Comments BUN (test code = 3094-0) 8 mg/dL 6- [facility] CenterChloride [id number] 13:24:51 Test Item Value Reference Range Interpretation Comments Chloride (test code = 103 See_Comment [Auto mated message] The ) system which ge nerated this result tra nsmitted reference range : 98 - 107 mEq/L. The refe rence range was not u sed to interpret this result as normal/abnormal . [facility] CenterCalcium [id number] 13:24:50 Test Item Value Reference Range Interpretation Comments Calcium Lvl (test code = 68365-0) 8.6 mg/dL 8.4-10.2 [facility] CenterPotassium2023-02-24 13:24:49 Test Item Value Reference Range Interpretation Comments Potassium Lvl (test 3.8 See_Comment [Automa elbert message] The code = 2823-3) system which generated this result tra nsmitted reference range : 3.5 - 5.1 mEq/L. The reference range was not u sed to interpret this result as normal/abnormal . [facility] CenterAlbumin [id number] 13:24:48 Test Item Value Reference Range Interpretation Comments Albumin Lvl (test code = 3.0 See_Comment L [A utomated message] 45105-04) The system whic h generated this result transmitted ref erence range: 3.5 - 5. 2 gm/dL. The refe rence range was not u sed to interpret this result as normal/abnor mal. Lab Interpretation (test Abnormal code = 28893-6) [facility] Hospitalodium [id number] 13:24:47 Test Item Value Reference Range Interpretation Comments Sodium Lvl (test code 138 See_Comment [Auto mated message] The = 2951-2) system which ge nerated this result tra nsmitted reference range : 136 - 145 mEq/L. The refe rence range was not used to interpret this result as normal/abnormal . [facility] CenterAspartate Aminotransferase 2022-06-21 13:24:46 Test Item Value Reference Range Interpretation Comments AST (test code = 1920-8) 27 U/L <=40 [facility] CenterCarbon Dioxide [id number] 13:24:45 Test Item Value Reference Range Interpretation Comments CO2 (test code = 23 See_Comment [Automated message] The 2027-12) system which ge nerated this result transmit elbert reference range : 22 - 29 mEq/L. The refe rence range was not used to interpret this result as normal/abnormal . [facility] CenterDifferential2023-02-24 12:40:19 Test Item Value Reference Range Interpretation Comments Neutrophil % (test code = 59.8 % 42.0-66.0 770-8) Lymphocyte % (test code = 29.9 % 24.0-44.0 736-9) Monocyte % (test code = 8.9 % 2.0-7.0 H 5905-5) Eosinophil % (test code = 1.1 % 1.0-4.0 713-8) Basophil % (test code = 0.0 % 0.0-1.0 706-2) IGRE % (test code = 0.3 % 0.0-0.4 IGRE % c ount 90112-5) includes Metamyelocytes, Myelocytes, and Promyelocytes. Neutrophil Abs (test code 2.16 K/uL 1.70-7.30 = 751-8) Lymphocyte Abs (test code 1.08 K/uL 1.00-4.80 = 731-0) Monocyte Abs (test code = 0.32 K/uL 0.08-0.70 742-7) Eosinophil Abs (test code 0.04 K/uL 0.04-0.40 = 711-2) Basophil Abs (test code = 0.00 K/uL 0.00-0.10 704-7) IG Abs (test code = 0.01 K/uL 0.00-0.04 04090-3) Lab Interpretation (test Abnormal code = 61142-2) [facility].[id number] 12:40:17 Test Item Value Reference Range Interpretation Comments WBC (test code = 3.6 K/uL 4.0-11.0 L 6690-2) RBC (test code = 789-8) 2.94 See_Comment L [Au tomated message] The system Exhbit generated this result transmitted ref erence range: 4.50 - 6 .00 M/uL. The refer ence range was not u sed to interpret this result as normal/abnor mal. Hgb (test code = 718-7) 10.0 See_Comment L [Au tomated message] The system Exhbit generated this result transmitted ref erence range: 14.0 - 1 8.0 gm/dL. The refe rence range was not u sed to interpret this result as normal/abnor mal. Hct (test code = 29.3 % 40.0-54.0 L 4544-3) MCV (test code = 787-2) 100 fL 82-98 H MCH (test code = 785-6) 34.0 pg 27.0-31.0 H MCHC (test code = 34.1 See_Comment [Automate d message] 786-4) The system Exhbit generated this result transmitted ref erence range: 31.0 - 3 6.0 gm/dL. The refe rence range was not u sed to interpret this result as normal/abnor mal. RDW-SD (test code = 47.9 fL 35.1-46.3 H 83685-5) RDW-CV (test code = 13.1 % 12.0-15.5 788-0) Platelet count (test 115 K/uL 140-440 L code = 777-3) MPV (test code = 10.5 fL 4.0-10.4 H 26468-4) INRBC (test code = 0.0 % <=0.0 The INRBC (instrument 02051-3) NRBC) value ref lects the enumeration of nucleated red b lood cells contained in a 200uL sampleof whole blood analyzed by the instrument. Thi s value maydiffer from the NRBC value repo rted in a manual differential,wh ich is based on a 100 cell differential. Lab Interpretation Abnormal (test code = 34033-9) [facility] CenterFC CD4/CD8 [id number] 01:27:21 Test Item Value Reference Interpretation Comments Range WBC Count, Ratio Add 11.5 K/uL Test pe rformed (test code = 8461) by:The [facility] CenterFlow Cytometry [address] [place] [address] 57542 Gated Lymph Region, 6.3 % Test per formed Ratio Add (test code by:The = 8353) [facility] CenterFlow Cytometry Qgpcalyusv[address] [place] [address] 61148 CD3+ (test code = 84.7 % 54.9-90.4 Test perfo rmed 8223) by:The [facility] CenterFlow Cytometry Wfrhpplatj126[address] [place] [address] 23849 CD3+ Absolute (test 614 See_Comment Test per formed code = 8224) by:The [facility] CenterFlow Cytometry Idjloshbcr[address] [place] [address] 30492 [Automate d message] The system which generated this result transmitted reference range : 410 - 2,259 cells/mcL. The reference range was not used to interpret this result as normal/abnormal . CD3+CD4+ (test code 45.2 % 31.1-60.6 Test per formed = 8228) by:The [facility] CenterFlow Cytometry Dfuakiifhm4874[address] [place] [address] 64399 CD3+CD4+ Absolute 327 See_Comment Test perfo rmed (test code = 8229) by:The [facility] CenterFlow Cytometry Wbdgmdlqiq397[address] [place] [address] 82521 [Automate d message] The system which generated this result transmitted reference range : 263 - 1,426 cells/mcL. The reference range was not used to interpret this result as normal/abnormal . CD3+CD8+ (test code 39.5 % 10.8-39.7 Test per formed = 8249) by:The [facility] CenterFlow Cytometry Dldvfohadh9665[address] [place] [address] 20122 CD3+CD8+ Absolute 286 See_Comment Test perfo rmed (test code = 8250) by:The [facility] CenterFlow Cytometry Zmeuxeutav9329[address] [place] [address] 97299 [Automate d message] The system which generated this result transmitted reference range : 30 - 891 cells/mcL. The reference range was not used to interpret this result as normal/abnormal . CD4+/CD8+ Ratio 1.14 1.80-3.50 L Test perform ed (test code = 8272) by:The [facility] CenterFlow Cytometry Opildjsfhg86[address] [place] [address] 64390 JOAQUIN (test code = This test was JOAQUIN) developed and its performance characteristics determined by [facility] Clinical Flow Cytometry Laboratory. It has not been cleared or approved by the US Food and Drug Administration. The FDA does not require this test go through premarket FDA review. This test is used for clinical purposes. It should not be regarded as investigational or for research. This laboratory is certified under the Clinical Laboratory Improvement Amendment of 1988 (CLIA) as qualified to perform high complexity clinical laboratory testing. Lab Interpretation Abnormal (test code = 23263-8) [facility] CenterFC CD4/CD8 [id number] 01:27:21 Test Item Value Reference Interpretation Comments Range WBC Count, Ratio Add 11.5 K/uL Test pe rformed (test code = 8461) by:The [facility] CenterFlow Cytometry Gkwdpdhgjv[address] [place] [address] 57225 Gated Lymph Region, 6.3 % Test per formed Ratio Add (test code by:The = 8353) [facility] CenterFlow [facility] Erapddqagz[address] [place] [address] 88435 CD3+ (test code = 84.7 % 54.9-90.4 Test perfo rmed 8223) by:The [facility] CenterFlow Cytometry Tajqjlqzql28[address] [place] [address] 34809 CD3+ Absolute (test 614 See_Comment Test per formed code = 8224) by:The [facility] CenterFlow Cytometry Xkerfabncn[address] [place], [place] [address] [Automate d message] The system which generated this result transmitted reference range : 410 - 2,259 cells/mcL. The reference range was not used to interpret this result as normal/abnormal . CD3+CD4+ (test code 45.2 % 31.1-60.6 Test per formed = 8228) by:The [facility] Nuhzbfpvfc[address] [place], [place] [address] CD3+CD4+ Absolute 327 See_Comment Test perfo rmed (test code = 8229) by:The [facility] Center[facility]ometry Lehjpuqxoc[address] [place] [address] [Automate d message] The system which generated this result transmitted reference range : 263 - 1,426 cells/mcL. The reference range was not used to interpret this result as normal/abnormal . CD3+CD8+ (test code 39.5 % 10.8-39.7 Test per formed = 8249) by:The [facility]Flow [facility]ometry G[address]btlrutqw[address] [place] [address] CD3+CD8+ Absolute 286 See_Comment Test perfo rmed (test code = 8250) by:The [facility] CenterFlow Cytometry Xhecmbexvv[address] [place] [address] [Automate d message] The system which generated this result transmitted reference range : 30 - 891 cells/mcL. The reference range was not used to interpret this result as normal/abnormal . CD4+/CD8+ Ratio 1.14 1.80-3.50 L Test perform ed (test code = 8272) by:The [facility] Center[facility] Ejcojojkda[address] [place] [address] JOAQUIN (test code = This test was JOAQUIN) developed and its performance characteristics determined by [facility] Clinical Flow Cytometry Laboratory. It has not been cleared or approved by the US Food and Drug Administration. The FDA does not require this test go through premarket FDA review. This test is used for clinical purposes. It should not be regarded as investigational or for research. This laboratory is certified under the Clinical Laboratory Improvement Amendment of 1988 (CLIA) as qualified to perform high complexity clinical laboratory testing. Lab Interpretation Abnormal (test code = 15040-4) [facility]FC CD4/CD8 [id number] 01:27:21 Test Item Value Reference Interpretation Comments Range WBC Count, Ratio Add 11.5 K/uL Test pe rformed (test code = 8461) by:The [facility]Flow [facility]ometry Vyujsibflv9[address] [place] [address] 76534 Gated Lymph Region, 6.3 % Test per formed Ratio Add (test code by:The = 8353) [facility]Flow [facility] Lbzxazphkg[address]23[address] [place] [address] 57005 CD3+ (test code = 84.7 % 54.9-90.4 Test perfo rmed 8223) by:The [facility] Umeebaogvb7324[address] [place] [address] 50281 CD3+ Absolute (test 614 See_Comment Test per formed code = 8224) by:The [facility] Xhdfenhehn0633[address] [place] [address] 19995 [Automate d message] The system which generated this result transmitted reference range : 410 - 2,259 cells/mcL. The reference range was not used to interpret this result as normal/abnormal . CD3+CD4+ (test code 45.2 % 31.1-60.6 Test per formed = 8228) by:The [facility] Dcknxjjhsw917[address] [place] [address] 82170 CD3+CD4+ Absolute 327 See_Comment Test perfo rmed (test code = 8229) by:The [facility] Oamsdcyhbn7230[address] [place] [address] 80874 [Automate d message] The system which generated this result transmitted reference range : 263 - 1,426 cells/mcL. The reference range was not used to interpret this result as normal/abnormal . CD3+CD8+ (test code 39.5 % 10.8-39.7 Test per formed = 8249) by:The [facility] Kfjkwczcgg8[address] [place] [address] 00408 CD3+CD8+ Absolute 286 See_Comment Test perfo rmed (test code = 8250) by:The [facility] Tmdipdzgfc6107[address] [place] [address] 59840 [Automate d message] The system which generated this result transmitted reference range : 30 - 891 cells/mcL. The reference range was not used to interpret this result as normal/abnormal . CD4+/CD8+ Ratio 1.14 1.80-3.50 L Test perform ed (test code = 8272) by:[facility] Fwxhdcikmj8860[address] [place] [address] 06385 JOAQUIN (test code = This test was JOAQUIN) developed and its performance characteristics determined by [facility] Clinical Flow Cytometry Laboratory. It has not been cleared or approved by the US Food and Drug Administration. The FDA does not require this test go through premarket FDA review. This test is used for clinical purposes. It should not be regarded as investigational or for research. This laboratory is certified under the Clinical Laboratory Improvement Amendment of 1988 (CLIA) as qualified to perform high complexity clinical laboratory testing. Lab Interpretation Abnormal (test code = 52259-1) [facility] CD4/CD8 [id number] 01:27:21 Test Item Value Reference Interpretation Comments Range WBC Count, Ratio Add 11.5 K/uL Test pe rformed (test code = 8461) by:[facility] Vxwfvjykph8[address] [place] [address] 29388 Gated Lymph Region, 6.3 % Test per formed Ratio Add (test code by:The = 8353) [facility] Bobxkhlswd1138[address] [place] [address] 83276 CD3+ (test code = 84.7 % 54.9-90.4 Test perfo rmed 8223) by:[facility] Fxapiklqpj127[address] [place] [address] 16785 CD3+ Absolute (test 614 See_Comment Test per formed code = 8224) by:[facility] Docfzbdfir4696[address] [place] [address] 60141 [Automate d message] The system which generated this result transmitted reference range : 410 - 2,259 cells/mcL. The reference range was not used to interpret this result as normal/abnormal . CD3+CD4+ (test code 45.2 % 31.1-60.6 Test per formed = 8228) by:[facility] Gorvffjdws[address]47[address] [place] [address] 77754 CD3+CD4+ Absolute 327 See_Comment Test perfo rmed (test code = 8229) by:[facility] Rzkfmvkrnc[address] [place] [address] 89268 [Automate d message] The system which generated this result transmitted reference range : 263 - 1,426 cells/mcL. The reference range was not used to interpret this result as normal/abnormal . CD3+CD8+ (test code 39.5 % 10.8-39.7 Test per formed = 8249) by:[facility] Ootehuznhb9019[address] [place] [address] 03683 CD3+CD8+ Absolute 286 See_Comment Test perfo rmed (test code = 8250) by:[facility] Rzgbyjqxkr325[address] [place] [address] 68372 [Automate d message] The system which generated this result transmitted reference range : 30 - 891 cells/mcL. The reference range was not used to interpret this result as normal/abnormal . CD4+/CD8+ Ratio 1.14 1.80-3.50 L Test perform ed (test code = 8272) by:[facility] Uvepwjfuzr[address] [place] [address] 29439 JOAQUIN (test code = This test was JOAQUIN) developed and its performance characteristics determined by [facility] Clinical Flow Cytometry Laboratory. It has not been cleared or approved by the US Food and Drug Administration. The FDA does not require this test go through premarket FDA review. This test is used for clinical purposes. It should not be regarded as investigational or for research. This laboratory is certified under the Clinical Laboratory Improvement Amendment of 1988 (CLIA) as qualified to perform high complexity clinical laboratory testing. Lab Interpretation Abnormal (test code = 25937-4) [facility] CD4/CD8 [id number] 01:27:21 Test Item Value Reference Interpretation Comments Range WBC Count, Ratio Add 11.5 K/uL Test pe rformed (test code = 8461) by:[facility] Urhwxowrxe912[address] [place] [address] 05984 Gated Lymph Region, 6.3 % Test per formed Ratio Add (test code by:The = 8353) [facility] Anbhebtiqo5927[address] [place] [address] 12566 CD3+ (test code = 84.7 % 54.9-90.4 Test perfo rmed 8223) by:[facility] Ettqturfof[address] [place] [address] CD3+ Absolute (test 614 See_Comment Test per formed code = 8224) by:[facility] Mrdhthmyzp2123[address] [place] [address] [Automate d message] The system which generated this result transmitted reference range : 410 - 2,259 cells/mcL. The reference range was not used to interpret this result as normal/abnormal . CD3+CD4+ (test code 45.2 % 31.1-60.6 Test per formed = 8228) by:[facility] Rnpofkomia7987[address] [place] [address] CD3+CD4+ Absolute 327 See_Comment Test perfo rmed (test code = 8229) by:[facility] Kbeqjakjeb[address] [place] [address] [Automated message] The system which generated this result transmitted reference range : 263 - 1,426 cells/mcL. The reference range was not used to interpret this result as normal/abnormal . CD3+CD8+ (test code 39.5 % 10.8-39.7 Test per formed = 8249) by:[facility] Sczuaurpoi1434[address] [place] [address] CD3+CD8+ Absolute 286 See_Comment Test perfo rmed (test code = 8250) by:[facility] Upmavosngp700[address] [place] [address] [Automate d message] The system which generated this result transmitted reference range : 30 - 891 cells/mcL. The reference range was not used to interpret this result as normal/abnormal . CD4+/CD8+ Ratio 1.14 1.80-3.50 L Test perform ed (test code = 8272) by:[facility] Cyqoxyoiap9455[address] [place] [address] JOAQUIN (test code = This test was JOAQUIN) developed and its performance characteristics determined by [facility] Clinical Flow Cytometry Laboratory. It has not been cleared or approved by the US Food and Drug Administration. The FDA does not require this test go through premarket FDA review. This test is used for clinical purposes. It should not be regarded as investigational or for research. This laboratory is certified under the Clinical Laboratory Improvement Amendment of 1988 (CLIA) as qualified to perform high complexity clinical laboratory testing. Lab Interpretation Abnormal (test code = 57073-8) [facility] Specimen Collection -[id number] 12:23:13 Test Item Value Reference Range Interpretation Comments Flow Cytometry Yes Test performe d by:The (Received) (test code = [facility] 8319) [facility]ry [address]vxb[address]ynsn7457 [place] [address] Beaker Ap Link (test NA code = 19552) [facility] Specimen Collection -[id number] 12:23:13 Test Item Value Reference Range Interpretation Comments Flow Cytometry Yes Test performe d by:The (Received) (test code = [facility] 8319) [facility]Flow Cyto metry Z[address]fwh[address] [place] [address] 76974 Beaker Ap Link (test NA code = 70123) [facility] Specimen Collection -[id number] 12:23:13 Test Item Value Reference Range Interpretation Comments Flow Cytometry Yes Test performe d by:The (Received) (test code = [facility] 8319) [facility] Cyto metry [address]gpadbi5297 [place] [address] Beaker Ap Link (test NA code = 96380) [facility] Specimen Collection -[id number] 12:23:13 Test Item Value Reference Range Interpretation Comments Flow Cytometry Yes Test performe d by:The (Received) (test code = [facility] 8319) [facility]to metry [address]hfwrgs8827 [place] [address] Beaker Ap Link (test NA code = 25092) [facility] Specimen Collection -[id number] 12:23:13 Test Item Value Reference Range Interpretation Comments Flow Cytometry Yes Test performe d by:The (Received) (test code = [facility] 8319) [facility] HospitalFlow Cyto metry [id number] [place] [address] Beaker Ap Link (test NA code = 87239) [facility] 16:08:56 Test Item Value Reference Range Interpretation Comments IgG (test code = 6001) 1416 mg/dL 610-1616 [place] [id number] 16:08:56 Test Item Value Reference Range Interpretation Comments IgG (test code = 6001) 1416 mg/dL 610-1616 [place] [id number] 16:08:56 Test Item Value Reference Range Interpretation Comments IgG (test code = 6001) 1416 mg/dL 610-1616 [facility] Test Item Value Reference Range Interpretation Comments IgG (test code = 6001) 1416 mg/dL 610-1616 [place] [id number] 16:08:56 Test Item Value Reference Range Interpretation Comments IgG (test code = 6001) 1416 mg/dL 610-1616 [facility] Add-On Test 2022-06-19 15:57:49 Test Item Value Reference Range Interpretation Comments Ordered (test code = Test Added 6568) Test Needed (test magnesium level, code = 7604) phosphorous level, calcium level, albumin [facility] Add-On Test 2022-06-19 15:57:49 Test Item Value Reference Range Interpretation Comments Ordered (test code = Test Added 6568) Test Needed (test magnesium level, code = 7604) phosphorous level, calcium level, albumin [facility] Add-On Test 2022-06-19 15:57:49 Test Item Value Reference Range Interpretation Comments Ordered (test code = Test Added 6568) Test Needed (test magnesium level, code = 7604) phosphorous level, calcium level, albumin [facility] Add-On Test 2022-06-19 15:57:49 Test Item Value Reference Range Interpretation Comments Ordered (test code = Test Added 6568) Test Needed (test magnesium level, code = 7604) phosphorous level, calcium level, albumin [facility] Add-On Test 2022-06-19 15:57:49 Test Item Value Reference Range Interpretation Comments Ordered (test code = Test Added 6568) Test Needed (test magnesium level, code = 7604) phosphorous level, calcium level, albumin [facility] CenterTMP Interpretation Antibody Screen [id number] 14:43:39 Test Item Value Reference Range Interpretation Comments TMP Auto Neg At the present ABSC Interp time, patient (test code = plasma shows no ____SWATI VOSS MD 7535) evidence of RBC - [id number] elbert by: alloantibodies. SWATI NAQVI MD - [id number] D ate/Time: 06.19.2022 8:43 AM [employer] Transcribed Gonzalez e/Time: 06.19.2022 8:43 AM CSTElectronical ly Signed By: SWATI SHARPE MD - [id number] on 05.30 8:[address] [facility] CenterElectrolyte [id number] 11:10:37 Test Item Value Reference Range Interpretation Comments Sodium Lvl (test code = 133 See_Comment L [Au tomated message] 7116-2) The system Exhbit generated this result transmitted ref erence range: 136 - 14 5 mEq/L. The refe rence range was not u sed to interpret this result as normal/abnor mal. Potassium Lvl (test code 3.9 See_Comment [A utomated message] = 6123-3) The system Exhbit generated this result transmitted ref erence range: 3.5 - 5. 1 mEq/L. The refe rence range was not u sed to interpret this result as normal/abnor mal. Chloride (test code = 101 See_Comment [Auto mated message] 2074-0) The system Exhbit generated this result transmitted ref erence range: 98 - 107 mEq/L. The refe rence range was not u sed to interpret this result as normal/abnor mal. CO2 (test code = 2027-12) 21 See_Comment L [A utomated message] The system Exhbit generated this result transmitted ref erence range: 22 - 29 mEq/L. The reference r sam was not used to interpret this result as normal/abnor mal. Anion Gap (test code = 11 See_Comment [Aut omated message] 13711-4) The system Exhbit generated this result transmitted ref erence range: 4 - 14 m Eq/L. The reference r sam was not used to interpret this result as normal/abnor mal. Lab Interpretation (test Abnormal code = 10641-2) [facility] CenterElectro[facility]te [id number] 11:10:37 Test Item Value Reference Range Interpretation Comments Sodium Lvl (test code = 133 See_Comment L [Au tomated message] 2951-2) The system Exhbit generated this result transmitted ref erence range: 136 - 14 5 mEq/L. The refe rence range was not u sed to interpret this result as normal/abnor mal. Potassium Lvl (test code 3.9 See_Comment [A utomated message] = 2823-3) The system Exhbit generated this result transmitted ref erence range: 3.5 - 5. 1 mEq/L. The refe rence range was not u sed to interpret this result as normal/abnor mal. Chloride (test code = 101 See_Comment [Auto mated message] 2074-0) The system Exhbit generated this result transmitted ref erence range: 98 - 107 mEq/L. The refe rence range was not u sed to interpret this result as normal/abnor mal. CO2 (test code = 2027-9) 21 See_Comment L [A utomated message] The system Exhbit generated this result transmitted ref erence range: 22 - 29 mEq/L. The reference r sam was not used to interpret this result as normal/abnor mal. Anion Gap (test code = 11 See_Comment [Aut omated message] 19699-7) The system Exhbit generated this result transmitted ref erence range: 4 - 14 m Eq/L. The reference r sam was not used to interpret this result as normal/abnor mal. Lab Interpretation (test Abnormal code = 74735-8) [facility] CenterElectro[facility] [id number] 11:10:37 Test Item Value Reference Range Interpretation Comments Sodium Lvl (test code = 133 See_Comment L [Au tomated message] 2951-2) The system Exhbit generated this result transmitted ref erence range: 136 - 14 5 mEq/L. The refe rence range was not u sed to interpret this result as normal/abnor mal. Potassium Lvl (test code 3.9 See_Comment [A utomated message] = 2823-3) The system Exhbit generated this result transmitted ref erence range: 3.5 - 5. 1 mEq/L. The refe rence range was not u sed to interpret this result as normal/abnor mal. Chloride (test code = 101 See_Comment [Auto mated message] 2074-0) The system Exhbit generated this result transmitted ref erence range: 98 - 107 mEq/L. The refe rence range was not u sed to interpret this result as normal/abnor mal. CO2 (test code = 2027-12) 21 See_Comment L [A utomated message] The system Exhbit generated this result transmitted ref erence range: 22 - 29 mEq/L. The reference r sam was not used to interpret this result as normal/abnor mal. Anion Gap (test code = 11 See_Comment [Aut omated message] 10957-0) The system Exhbit generated this result transmitted ref erence range: 4 - 14 m Eq/L. The reference r sam was not used to interpret this result as normal/abnor mal. Lab Interpretation (test Abnormal code = 79510-1) [facility] [id number] 11:10:37 Test Item Value Reference Range Interpretation Comments Sodium Lvl (test code = 133 See_Comment L [Au tomated message] 2951-2) The system Exhbit generated this result transmitted ref erence range: 136 - 14 5 mEq/L. The refe rence range was not u sed to interpret this result as normal/abnor mal. Potassium Lvl (test code 3.9 See_Comment [A utomated message] = 2823-3) The system Exhbit generated this result transmitted ref erence range: 3.5 - 5. 1 mEq/L. The refe rence range was not u sed to interpret this result as normal/abnor mal. Chloride (test code = 101 See_Comment [Auto mated message] ) The system Exhbit generated this result transmitted ref erence range: 98 - 107 mEq/L. The refe rence range was not u sed to interpret this result as normal/abnor mal. CO2 (test code = 2027-12) 21 See_Comment L [A utomated message] The system Exhbit generated this result transmitted ref erence range: 22 - 29 mEq/L. The reference r sam was not used to interpret this result as normal/abnor mal. Anion Gap (test code = 11 See_Comment [Aut omated message] 05406-6) The system Exhbit generated this result transmitted ref erence range: 4 - 14 m Eq/L. The reference r sam was not used to interpret this result as normal/abnor mal. Lab Interpretation (test Abnormal code = 67528-1) [facility] CenterElectro[facility]te [id number] 11:10:37 Test Item Value Reference Range Interpretation Comments Sodium Lvl (test code = 133 See_Comment L [Au tomated message] 0011-2) The system Exhbit generated this result transmitted ref erence range: 136 - 14 5 mEq/L. The refe rence range was not u sed to interpret this result as normal/abnor mal. Potassium Lvl (test code 3.9 See_Comment [A utomated message] = 2803-3) The system Exhbit generated this result transmitted ref erence range: 3.5 - 5. 1 mEq/L. The refe rence range was not u sed to interpret this result as normal/abnor mal. Chloride (test code = 101 See_Comment [Auto mated message] ) The system Exhbit generated this result transmitted ref erence range: 98 - 107 mEq/L. The refe rence range was not u sed to interpret this result as normal/abnor mal. CO2 (test code = 2027-12) 21 See_Comment L [A utomated message] The system Exhbit generated this result transmitted ref erence range: 22 - 29 mEq/L. The reference r sam was not used to interpret this result as normal/abnor mal. Anion Gap (test code = 11 See_Comment [Aut omated message] 98320-4) The system Exhbit generated this result transmitted ref erence range: 4 - 14 m Eq/L. The reference r sam was not used to interpret this result as normal/abnor mal. Lab Interpretation (test Abnormal code = 28029-5) [facility] CenterGlucose [id number] 11:10:36 Test Item Value Reference Range Interpretation Comments Glucose Level (test 80 mg/dL 70-99 Effectiv e 11/22/15, the code = 2345-7) glucose refer ence intervals have been updated based o n [place] [employer] aroldo delines (Standards of edical Care in Diabete s 2016. Diabetes Care 2 016; 39: S13-S22).Fastin g blood glucose:Normal: 70-99 mg/dLImpaired f asting glucose (increa sed risk for diabetes or pre-diabetes): 100-125 mg/dLDiabetes m ellitus: >/=126 mg/dL Ra ndom blood glucose:N ormal: 70-199 mg/dLNot e: Random glucose >100 mg /dL is associated with increased risk for diabetes [facility] CenterGlucose [id number] 11:10:36 Test Item Value Reference Range Interpretation Comments Glucose Level (test 80 mg/dL 70-99 Effectiv e 11/22/15, the code = 2345-7) glucose refer ence intervals have been updated based o n [place] [employer] aroldo delines (Standards of edical Care in Diabete s 2016. Diabetes Care 2 016; 39: S13-S22).Fastin g blood glucose:Normal: 70-99 mg/dLImpaired f asting glucose (increa sed risk for diabetes or pre-diabetes): 100-125 mg/dLDiabetes m ellitus: >/=126 mg/dL Ra ndom blood glucose:N ormal: 70-199 mg/dLNot e: Random glucose >100 mg /dL is associated with increased risk for diabetes [facility] CenterGlucose [id number] 11:10:36 Test Item Value Reference Range Interpretation Comments Glucose Level (test 80 mg/dL 70-99 Effectiv e 11/22/15, the code = 2345-7) glucose refer ence intervals have been updated based o n [place] [employer] aroldo delines (Standards of edical Care in Diabete s 2016. Diabetes Care 2 016; 39: S13-S22).Fastin g blood glucose:Normal: 70-99 mg/dLImpaired f asting glucose (increa sed risk for diabetes or pre-diabetes): 100-125 mg/dLDiabetes m ellitus: >/=126 mg/dL Ra ndom blood glucose:N ormal: 70-199 mg/dLNot e: Random glucose >100 mg /dL is associated with increased risk for diabetes [facility] CenterGlucose [id number] 11:10:36 Test Item Value Reference Range Interpretation Comments Glucose Level (test 80 mg/dL 70-99 Effectiv e 11/22/15, the code = 2345-7) glucose refer ence intervals have been updated based o n [place] [employer] aroldo delines (Standards of edical Care in Diabete s 2016. Diabetes Care 2 016; 39: S13-S22).Fastin g blood glucose:Normal: 70-99 mg/dLImpaired f asting glucose (increa sed risk for diabetes or pre-diabetes): 100-125 mg/dLDiabetes m ellitus: >/=126 mg/dL Ra ndom blood glucose:N ormal: 70-199 mg/dLNot e: Random glucose >100 mg /dL is associated with increased risk for diabetes [facility] CenterGlucose [id number] 11:10:36 Test Item Value Reference Range Interpretation Comments Glucose Level (test 80 mg/dL 70-99 Effectiv e 11/22/15, the code = 2345-7) glucose refer ence intervals have been updated based o n [place] [employer] aroldo delines (Standards of edical Care in Diabete s 2016. Diabetes Care 2 016; 39: S13-S22).Fastin g blood glucose:Normal: 70-99 mg/dLImpaired f asting glucose (increa sed risk for diabetes or pre-diabetes): 100-125 mg/dLDiabetes m ellitus: >/=126 mg/dL Ra ndom blood glucose:N ormal: 70-199 mg/dLNot e: Random glucose >100 mg /dL is associated with increased risk for diabetes [facility] CenterCalcium Ionized, [id number] 10:56:20 Test Item Value Reference Range Interpretation Comments V Ion Ca (test code = 1.13 mmol/L 1.15-1.29 L Collec tion 73668-3) date/time has been modified t o: 03:47:00. Previous collection date/time: 04:45:00.Correc te d from 1.13 mmol/L [LOW] on 06/19/22 4:56:2 0 [employer] by Juan Bennett JOAQUIN (test code = JOAQUIN) test preformed within 30 mints. 06/19/2022 4:56:01 AM [employer] Lab Interpretation Abnormal (test code = 48078-2) [facility] CenterCalcium Ionized, [id number] 10:56:20 Test Item Value Reference Range Interpretation Comments V Ion Ca (test code = 1.13 mmol/L 1.15-1.29 L Collec tion 01990-6) date/time has been modified t o: 03:47:00. Previous collection date/time: 04:45:00.Correc te d from 1.13 mmol/L [LOW] on 06/19/22 4:56:2 0 [employer] by Juan Bennett JOAQUIN (test code = JOAQUIN) test preformed within 30 mints. 06/19/2022 4:56:01 AM [employer] Lab Interpretation Abnormal (test code = 92006-1) [facility] CenterCalcium Ionized, [id number] 10:56:20 Test Item Value Reference Range Interpretation Comments V Ion Ca (test code = 1.13 mmol/L 1.15-1.29 L Collec tion 54718-5) date/time has been modified t o: 03:47:00. Previous collection date/time: 04:45:00.Correc te d from 1.13 mmol/L [LOW] on 06/19/22 4:56:2 0 [employer] by Juan Bennett JOAQUIN (test code = JOAQUIN) test preformed within 30 mints. 06/19/2022 4:56:01 AM [employer] Lab Interpretation Abnormal (test code = 19717-4) [facility] CenterCal[facility] Ion[facility], [id number] 10:56:20 Test Item Value Reference Range Interpretation Comments V Ion Ca (test code = 1.13 mmol/L 1.15-1.29 L Collec tion 59524-3) date/time has been modified t o: 03:47:00. Previous collection date/time: 04:45:00.Correc te d from 1.13 mmol/L [LOW] on 06/19/22 4:56:2 0 [employer] by Juan Bennett (test code = JOAQUIN) test preformed within 30 mints. 06/19/2022 4:56:01 AM [employer] Lab Interpretation Abnormal (test code = 95069-4) [facility] CenterCal[facility] Ion[facility], [id number] 10:56:20 Test Item Value Reference Range Interpretation Comments V Ion Ca (test code = 1.13 mmol/L 1.15-1.29 L Collec tion 73414-3) date/time has been modified t o: 03:47:00. Previous collection date/time: 04:45:00.Correc te d from 1.13 mmol/L [LOW] on 06/19/22 4:56:2 0 [employer] by Juan Bennett JOAQUIN (test code = JOAQUIN) test preformed within 30 mints. 06/19/2022 4:56:01 AM [employer] Lab Interpretation Abnormal (test code = 00736-6) [facility] CenterVB [id number] 09:59:32 Test Item Value Reference Range Interpretation Comments V Lactate (test code = 2519-7) 0.8 mmol/L 0.5-1.6 [facility] CenterVB [id number] 09:59:32 Test Item Value Reference Range Interpretation Comments V Lactate (test code = 2519-7) 0.8 mmol/L 0.5-1.6 [facility] CenterVB [id number] 09:59:32 Test Item Value Reference Range Interpretation Comments V Lactate (test code = 2519-7) 0.8 mmol/L 0.5-1.6 [facility] CenterVB [id number] 09:59:32 Test Item Value Reference Range Interpretation Comments V Lactate (test code = 2519-7) 0.8 mmol/L 0.5-1.6 [facility] CenterVB [id number] 09:59:32 Test Item Value Reference Range Interpretation Comments V Lactate (test code = 2519-7) 0.8 mmol/L 0.5-1.6 [facility] CenterUrinalysis Microscopic Exam 2022-06-19 08:59:16 Test Item Value Reference Range Interpretation Comments UA WBC (test code = 6 See_Comment H Some rep orting 29874-2) parameters with in the Urinalysis test have changed due to the implementation of new instrumentation in the [facility] sensiti vity of measurement. Urinalysis resu lts reported by the [facility] enters using existing instrumentation , as well as Urinaly sis testing perform ed manually or by backup methodology at the [facility] crystal l remain relative ly unchanged. New reporting justino eters and units will not be reported for [facility] campuses. [Auto mated message] The sy stem which generated this result transmit elbert reference range : 0 - 2 /HPF. The refer ence range was not u sed to interpret this result as normal/abnor mal. UA RBC (test code = 2 See_Comment [Automa elbert message] 66228-8) The system Exhbit generated this result transmitted ref erence range: 0 - 2 /H PF. The reference range was not used to int erpret this result as normal/abnormal . UA Mucous (test code = NOT SEEN Not Seen-Trace 78368-1) /HPF UA Bacteria (test code NOT SEEN NOT SEEN /HPF = 36000-9) UA Squam Epi (test OCC None-Occasional code = 68714-2) /HPF Lab Interpretation Abnormal (test code = 01075-2) [facility] CenterUrinalysis Microscopic Exam 2022-06-19 08:59:16 Test Item Value Reference Range Interpretation Comments UA WBC (test code = 6 See_Comment H Some rep orting 21903-1) parameters with in the Urinalysis test have changed due to the implementation of new instrumentation in the [facility], [facility] low[facility] sensiti vity of measurement. Urinalysis resu lts reported by the [facility] enters using existing instrumentation , as well as Urinaly sis testing perform ed manually or by backup methodology at the [facility] crystal l remain relative ly unchanged. New reporting justino eters and units will not be reported for [facility]. [Auto mated message] The sy stem which generated this result transmit elbert reference range : 0 - 2 /HPF. The refer ence range was not u sed to interpret this result as normal/abnor mal. UA RBC (test code = 2 See_Comment [Automa elbert message] 92711-7) The system Exhbit generated this result transmitted ref erence range: 0 - 2 /H PF. The reference range was not used to int erpret this result as normal/abnormal . UA Mucous (test code = NOT SEEN Not Seen-Trace 81995-6) /HPF UA Bacteria (test code NOT SEEN NOT SEEN /HPF = 69255-2) UA Squam Epi (test OCC None-Occasional code = 16906-9) /HPF Lab Interpretation Abnormal (test code = 85983-3) [facility] 2022-06-19 08:59:16 Test Item Value Reference Range Interpretation Comments UA WBC (test code = 6 See_Comment H Some rep orting 21668-0) parameters with in the Urinalysis test have changed due to the implementation of new instrumentation in the [facility], al lowing greater sensiti vity of measurement. Urinalysis resu lts reported by the [facility] enters using existing instrumentation , as well as Urinaly sis testing perform ed manually or by backup methodology at the [facility] crystal l remain relative ly unchanged. New reporting justino eters and units will not be reported for [facility]. [Auto mated message] The sy stem which generated this result transmit elbert reference range : 0 - 2 /HPF. The refer ence range was not u sed to interpret this result as normal/abnor mal. UA RBC (test code = 2 See_Comment [Automa elbert message] 38769-5) The system Exhbit generated this result transmitted ref erence range: 0 - 2 /H PF. The reference range was not used to int erpret this result as normal/abnormal . UA Mucous (test code = NOT SEEN Not Seen-Trace 46538-6) /HPF UA Bacteria (test code NOT SEEN NOT SEEN /HPF = 17605-8) UA Squam Epi (test OCC None-Occasional code = 62729-0) /HPF Lab Interpretation Abnormal (test code = 45850-6) [facility] CenterUr[facility] Microscopic Exam 2022-06-19 08:59:16 Test Item Value Reference Range Interpretation Comments UA WBC (test code = 6 See_Comment H Some rep orting 44443-1) parameters with in the Urinalysis test have changed due to the implementation of new instrumentation in the [facility] sensiti vity of measurement. Urinalysis resu lts reported by the [facility] enters using existing instrumentation , as well as Urinaly sis testing perform ed manually or by backup methodology at the [facility] crystal l remain relative ly unchanged. New reporting justino eters and units will not be reported for [facility]. [Auto mated message] The sy stem which generated this result transmit elbert reference range : 0 - 2 /HPF. The refer ence range was not u sed to interpret this result as normal/abnor mal. UA RBC (test code = 2 See_Comment [Automa elbert message] 82274-3) The system Exhbit generated this result transmitted ref erence range: 0 - 2 /H PF. The reference range was not used to int erpret this result as normal/abnormal . UA Mucous (test code = NOT SEEN Not Seen-Trace 83099-3) /HPF UA Bacteria (test code NOT SEEN NOT SEEN /HPF = 35390-1) UA Squam Epi (test OCC None-Occasional code = 22910-0) /HPF Lab Interpretation Abnormal (test code = 10155-0) [facility] CenterUr[facility] Microscopic Exam 2022-06-19 08:59:16 Test Item Value Reference Range Interpretation Comments UA WBC (test code = 6 See_Comment H Some rep orting 41320-1) parameters with in the Urinalysis test have changed due to the implementation of new instrumentation in the [facility], al lowing greater sensiti vity of measurement. Urinalysis resu lts reported by the [facility] using existing instrumentation , as well as Urinaly sis testing perform ed manually or by backup methodology at the [facility] crystal l remain relative ly unchanged. New reporting justino eters and units will not be reported for [facility]. [Auto mated message] The sy stem which generated this result transmit elbert reference range : 0 - 2 /HPF. The refer ence range was not u sed to interpret this result as normal/abnor mal. UA RBC (test code = 2 See_Comment [Automa elbert message] 26419-5) The system Exhbit generated this result transmitted ref erence range: 0 - 2 /H PF. The reference range was not used to int erpret this result as normal/abnormal . UA Mucous (test code = NOT SEEN Not Seen-Trace 79946-6) /HPF UA Bacteria (test code NOT SEEN NOT SEEN /HPF = 84356-8) UA Squam Epi (test OCC None-Occasional code = 03403-4) /HPF Lab Interpretation Abnormal (test code = 46502-2) [facility] CenterUrinalysis w/Microscopic if [id number] 08:36:21 Test Item Value Reference Range Interpretation Comments UA Color (test code = 27730-5) Straw Straw-Yellow UA Appear (test code = 99978-4) Clear Clear UA Glucose (test code = 5792-7) NEG NEG mg/dL UA Bili (test code = 5770-3) NEG NEG UA Ketones (test code = 5797-6) NEG NEG mg/dL UA Spec Grav (test code = 5810-7) 1.048 1.003-1.035 H UA Blood (test code = 5794-3) NEG NEG UA pH (test code = 5803-2) 6.0 5.0-9.0 UA Protein (test code = 5804-0) 30 mg/dL NEG A UA Urobilinogen (test code = 5818-0) NEG NEG UA Nitrite (test code = 5802-4) NEG NEG UA Leuk Est (test code = 5799-2) NEG NEG Lab Interpretation (test code = Abnormal 74921-7) [facility] if [id number] 08:36:21 Test Item Value Reference Range Interpretation Comments UA Color (test code = 20860-4) Straw Straw-Yellow UA Appear (test code = 35460-5) Clear Clear UA Glucose (test code = 5792-7) NEG NEG mg/dL UA Bili (test code = 5770-3) NEG NEG UA Ketones (test code = 5797-6) NEG NEG mg/dL UA Spec Grav (test code = 5810-7) 1.048 1.003-1.035 H UA Blood (test code = 5794-3) NEG NEG UA pH (test code = 5803-2) 6.0 5.0-9.0 UA Protein (test code = 5804-0) 30 mg/dL NEG A UA Urobilinogen (test code = 5818-0) NEG NEG UA Nitrite (test code = 5802-4) NEG NEG UA Leuk Est (test code = 5799-2) NEG NEG Lab Interpretation (test code = Abnormal 89676-1) [facility]scopic if [id number] 08:36:21 Test Item Value Reference Range Interpretation Comments UA Color (test code = 89307-0) Straw Straw-Yellow UA Appear (test code = 45237-4) Clear Clear UA Glucose (test code = 5792-7) NEG NEG mg/dL UA Bili (test code = 5770-3) NEG NEG UA Ketones (test code = 5797-6) NEG NEG mg/dL UA Spec Grav (test code = 5810-7) 1.048 1.003-1.035 H UA Blood (test code = 5794-3) NEG NEG UA pH (test code = 5803-2) 6.0 5.0-9.0 UA Protein (test code = 5804-0) 30 mg/dL NEG A UA Urobilinogen (test code = 5818-0) NEG NEG UA Nitrite (test code = 5802-4) NEG NEG UA Leuk Est (test code = 5799-2) NEG NEG Lab Interpretation (test code = Abnormal 79492-6) [facility] if [id number] 08:36:21 Test Item Value Reference Range Interpretation Comments UA Color (test code = 01001-6) Straw Straw-Yellow UA Appear (test code = 08702-5) Clear Clear UA Glucose (test code = 5792-7) NEG NEG mg/dL UA Bili (test code = 5770-3) NEG NEG UA Ketones (test code = 5797-6) NEG NEG mg/dL UA Spec Grav (test code = 5810-7) 1.048 1.003-1.035 H UA Blood (test code = 5794-3) NEG NEG UA pH (test code = 5803-2) 6.0 5.0-9.0 UA Protein (test code = 5804-0) 30 mg/dL NEG A UA Urobilinogen (test code = 5818-0) NEG NEG UA Nitrite (test code = 5802-4) NEG NEG UA Leuk Est (test code = 5799-2) NEG NEG Lab Interpretation (test code = Abnormal 45141-5) [facility]Microsc[facility] if [id number] 08:36:21 Test Item Value Reference Range Interpretation Comments UA Color (test code = 54376-0) Straw Straw-Yellow UA Appear (test code = 17497-3) Clear Clear UA Glucose (test code = 5792-7) NEG NEG mg/dL UA Bili (test code = 5770-3) NEG NEG UA Ketones (test code = 5797-6) NEG NEG mg/dL UA Spec Grav (test code = 5810-7) 1.048 1.003-1.035 H UA Blood (test code = 5794-3) NEG NEG UA pH (test code = 5803-2) 6.0 5.0-9.0 UA Protein (test code = 5804-0) 30 mg/dL NEG A UA Urobilinogen (test code = 5818-0) NEG NEG UA Nitrite (test code = 5802-4) NEG NEG UA Leuk Est (test code = 5799-2) NEG NEG Lab Interpretation (test code = Abnormal 65412-9) [facility] Panel, Nasopharyngeal [id number] 03:22:04 Test Item Value Reference Range Interpretation Comments Adenovirus (test code = Not Detected Not Detected 54846-6) Coronavirus 229E (test Not Detected Not Detected code = 69415-9) Coronavirus HKU1 (test Not Detected Not Detected code = 68512-6) Coronavirus NL63 (test Not Detected Not Detected code = 43618-1) Coronavirus OC43 (test Not Detected Not Detected code = 84531-8) COVID19 (SARS-CoV-2) Not Detected Not Detected (test code = 02756-6) Human Metapneumovirus Not Detected Not Detected (test code = 64579-3) Human Not Detected Not Detected Rhinovirus/Enterovirus (test code = 06079-5) Influenza A (test code Not Detected Not Detected = 41660-7) Influenza A H1 (test Not Detected Not Detected code = 86024-4) Influenza A H1 2009 Not Detected Not Detected (test code = 23270-2) Influenza A H3 (test Not Detected Not Detected code = 86991-6) Influenza B (test code Not Detected Not Detected = 10680-2) Parainfluenza 1 (test Not Detected Not Detected code = 89448-3) Parainfluenza 2 (test Not Detected Not Detected code = 91974-1) Parainfluenza 3 (test Not Detected Not Detected code = 78825-4) Parainfluenza 4 (test Not Detected Not Detected code = 08598-6) Respiratory Syncytial Not Detected Not Detected Virus (test code = 41197-5) Bordetella Not Detected Not Detected Parapertussis (test code = 29207-2) Bordetella pertussis Not Detected Not Detected (test code = 35171-9) Chlamydiophila Not Detected Not Detected pneumoniae (test code = 94207-8) Mycoplasma pneumoniae Not Detected Not Detected (test code = 58519-7) JOAQUIN (test code = JOAQUIN) Has patient had a positive for COVID-19 result in the last 3 months?->No The [employer] RP2.1 is a real-time, nested multiplexed polymerase chain reaction test designed to simultaneously identify nucleic acids from 22 different viruses and bacteria associated with respiratory tract infection, including SARS-CoV-2, from a single nasopharyngeal swab (SHEAR [employer] OPERATOR HEL[employer]) specimen obtained from individuals suspected of respiratory tract infections, including COVID-19. Results must be interpreted within the context of all relevant clinical and laboratory findings and should not form the sole basis for a diagnosis or treatment decision. Positive results do not rule out coninfection with other organisms. Negative results in the setting of a respiratory illness may be due to infection with pathogens that are not detected by this panel, or a lower respiratory tract infection that may not be detected by an SHEAR [employer]PERATOR HELPER specimen. Internal controls are used to monitor all stages of the test process and assess for possible amplification inhibitors. If inhibition is detected, testing is repeated and if inhibition is confirmed the specimen is resulted as "Invalid". When an "Invalid" result occurs, it is recommended to wait 3 days before submitting a new specimen for testing if clinically indicated. This assay has been approved by the FDA for use in laboratories that have been CLIA-certified to perform moderate-complexity and high-complexity tests. The [facility] at [facility], CLIA Accreditation #[id number] and CAP Accreditation #[id number], verified the performance characteristics of this assay. [facility] at [facility] performs the assay using the [employer] System. [facility] Panel, Nasopharyngeal [id number] 03:22:04 Test Item Value Reference Range Interpretation Comments Adenovirus (test code = Not Detected Not Detected 86403-2) Coronavirus 229E (test Not Detected Not Detected code = 72920-1) Coronavirus HKU1 (test Not Detected Not Detected code = 71788-2) Coronavirus NL63 (test Not Detected Not Detected code = 01948-9) Coronavirus OC43 (test Not Detected Not Detected code = 29121-0) COVID19 (SARS-CoV-2) Not Detected Not Detected (test code = 84362-9) Human Metapneumovirus Not Detected Not Detected (test code = 62386-9) Human Not Detected Not Detected Rhinovirus/Enterovirus (test code = 24966-4) Influenza A (test code Not Detected Not Detected = 03589-9) Influenza A H1 (test Not Detected Not Detected code = 49464-4) Influenza A H1 2009 Not Detected Not Detected (test code = 14086-5) Influenza A H3 (test Not Detected Not Detected code = 79890-4) Influenza B (test code Not Detected Not Detected = 30991-0) Parainfluenza 1 (test Not Detected Not Detected code = 42493-0) Parainfluenza 2 (test Not Detected Not Detected code = 70663-4) Parainfluenza 3 (test Not Detected Not Detected code = 39362-8) Parainfluenza 4 (test Not Detected Not Detected code = 29707-6) Respiratory Syncytial Not Detected Not Detected Virus (test code = 54480-6) Bordetella Not Detected Not Detected Parapertussis (test code = 37598-9) Bordetella pertussis Not Detected Not Detected (test code = 43025-5) Chlamydiophila Not Detected Not Detected pneumoniae (test code = 99017-5) Mycoplasma pneumoniae Not Detected Not Detected (test code = 74925-4) JOAQUIN (test code = JOAQUIN) Has patient had a positive for COVID-19 result in the last 3 months?->No The [employer] RP2.1 is a real-time, nested multiplexed polymerase chain reaction test designed to simultaneously identify nucleic acids from 22 different viruses and bacteria associated with respiratory tract infection, including SARS-CoV-2, from a single nasopharyngeal swab (SHEAR GR[employer]ER OPERATOR HELPER) specimen obtained from individuals suspected of respiratory tract infections, including COVID-19. Results must be interpreted within the context of all relevant clinical and laboratory findings and should not form the sole basis for a diagnosis or treatment decision. Positive results do not rule out coninfection with other organisms. Negative results in the setting of a respiratory illness may be due to infection with pathogens that are not detected by this panel, or a lower respiratory tract infection that may not be detected by an SHEAR [employer] OPERATOR HELPER specimen. Internal controls are used to monitor all stages of the test process and assess for possible amplification inhibitors. If inhibition is detected, testing is repeated and if inhibition is confirmed the specimen is resulted as "Invalid". When an "Invalid" result occurs, it is recommended to wait 3 days before submitting a new specimen for testing if clinically indicated. This assay has been approved by the FDA for use in laboratories that have been CLIA-certified to perform moderate-complexity and high-complexity tests. The [facility] at [facility], CLIA Accreditation #[id number] and CAP Accreditation #[id number], verified the performance characteristics of this assay. [facility] at [facility] performs the assay using the [employer] System. [facility], Nasopharyngeal [id number] 03:22:04 Test Item Value Reference Range Interpretation Comments Adenovirus (test code = Not Detected Not Detected 25709-1) Coronavirus 229E (test Not Detected Not Detected code = 90059-0) Coronavirus HKU1 (test Not Detected Not Detected code = 34001-9) Coronavirus NL63 (test Not Detected Not Detected code = 39449-5) Coronavirus OC43 (test Not Detected Not Detected code = 89667-2) COVID19 (SARS-CoV-2) Not Detected Not Detected (test code = 58131-6) Human Metapneumovirus Not Detected Not Detected (test code = 00208-1) Human Not Detected Not Detected Rhinovirus/Enterovirus (test code = 29651-0) Influenza A (test code Not Detected Not Detected = 34259-2) Influenza A H1 (test Not Detected Not Detected code = 38732-7) Influenza A H1 2009 Not Detected Not Detected (test code = 28562-9) Influenza A H3 (test Not Detected Not Detected code = 30497-0) Influenza B (test code Not Detected Not Detected = 08691-2) Parainfluenza 1 (test Not Detected Not Detected code = 42061-8) Parainfluenza 2 (test Not Detected Not Detected code = 07468-3) Parainfluenza 3 (test Not Detected Not Detected code = 61613-9) Parainfluenza 4 (test Not Detected Not Detected code = 11428-1) Respiratory Syncytial Not Detected Not Detected Virus (test code = 88719-0) Bordetella Not Detected Not Detected Parapertussis (test code = 22609-7) Bordetella pertussis Not Detected Not Detected (test code = 46050-3) Chlamydiophila Not Detected Not Detected pneumoniae (test code = 97703-4) Mycoplasma pneumoniae Not Detected Not Detected (test code = 03619-2) JOAQUIN (test code = JOAQUIN) Has patient had a positive for COVID-19 result in the last 3 months?->No The [employer] RP2.1 is a real-time, nested multiplexed polymerase chain reaction test designed to simultaneously identify nucleic acids from 22 different viruses and bacteria associated with respiratory tract infection, including SARS-CoV-2, from a single nasopharyngeal swab (SHEAR GRINDER OPERATOR HELPER) specimen obtained from individuals suspected of respiratory tract infections, including COVID-19. Results must be interpreted within the context of all relevant clinical and laboratory findings and should not form the sole basis for a diagnosis or treatment decision. Positive results do not rule out coninfection with other organisms. Negative results in the setting of a respiratory illness may be due to infection with pathogens that are not detected by this panel, or a lower respiratory tract infection that may not be detected by an SHEAR GR[employer]ER OPERATOR HELPER specimen. Internal controls are used to monitor all stages of the test process and assess for possible amplification inhibitors. If inhibition is detected, testing is repeated and if inhibition is confirmed the specimen is resulted as "Invalid". When an "Invalid" result occurs, it is recommended to wait 3 days before submitting a new specimen for testing if clinically indicated. This assay has been approved by the FDA for use in laboratories that have been CLIA-certified to perform moderate-complexity and high-complexity tests. The [facility] at [facility], CLIA Accreditation #[id number] and CAP Accreditation #[id number], verified the performance characteristics of this assay. [facility] at [facility] performs the assay using the [employer] System. [facility], Nasopharyngeal [id number] 03:22:04 Test Item Value Reference Range Interpretation Comments Adenovirus (test code = Not Detected Not Detected 10306-9) Coronavirus 229E (test Not Detected Not Detected code = 90998-9) Coronavirus HKU1 (test Not Detected Not Detected code = 48300-6) Coronavirus NL63 (test Not Detected Not Detected code = 86854-7) Coronavirus OC43 (test Not Detected Not Detected code = 29198-7) COVID19 (SARS-CoV-2) Not Detected Not Detected (test code = 98904-2) Human Metapneumovirus Not Detected Not Detected (test code = 21584-4) Human Not Detected Not Detected Rhinovirus/Enterovirus (test code = 75787-7) Influenza A (test code Not Detected Not Detected = 02935-3) Influenza A H1 (test Not Detected Not Detected code = 60717-3) Influenza A H1 2009 Not Detected Not Detected (test code = 15729-8) Influenza A H3 (test Not Detected Not Detected code = 17815-7) Influenza B (test code Not Detected Not Detected = 59583-0) Parainfluenza 1 (test Not Detected Not Detected code = 40109-1) Parainfluenza 2 (test Not Detected Not Detected code = 69945-8) Parainfluenza 3 (test Not Detected Not Detected code = 31817-2) Parainfluenza 4 (test Not Detected Not Detected code = 42308-6) Respiratory Syncytial Not Detected Not Detected Virus (test code = 19183-2) Bordetella Not Detected Not Detected Parapertussis (test code = 75488-3) Bordetella pertussis Not Detected Not Detected (test code = 66557-0) Chlamydiophila Not Detected Not Detected pneumoniae (test code = 43945-1) Mycoplasma pneumoniae Not Detected Not Detected (test code = 62015-5) JOAQUIN (test code = JOAQUIN) Has patient had a positive for COVID-19 result in the last 3 months?->No The [employer] RP2.1 is a real-time, nested multiplexed polymerase chain reaction test designed to simultaneously identify nucleic acids from 22 different viruses and bacteria associated with respiratory tract infection, including SARS-CoV-2, from a single nasopharyngeal swab (SHEAR GRINDER OPERATOR HELPER) specimen obtained from individuals suspected of respiratory tract infections, including COVID-19. Results must be interpreted within the context of all relevant clinical and laboratory findings and should not form the sole basis for a diagnosis or treatment decision. Positive results do not rule out coninfection with other organisms. Negative results in the setting of a respiratory illness may be due to infection with pathogens that are not detected by this panel, or a lower respiratory tract infection that may not be detected by an SHEAR GRINDER OPERATOR HELPER specimen. Internal controls are used to monitor all stages of the test process and assess for possible amplification inhibitors. If inhibition is detected, testing is repeated and if inhibition is confirmed the specimen is resulted as "Invalid". When an "Invalid" result occurs, it is recommended to wait 3 days before submitting a new specimen for testing if clinically indicated. This assay has been approved by the FDA for use in laboratories that have been CLIA-certified to perform moderate-complexity and high-complexity tests. The [facility] at [facility], CLIA Accreditation #[id number] and CAP Accreditation #[id number], verified the performance characteristics of this assay. [facility] at [facility] performs the assay using the [employer] System. [facility], Nasopharyngeal [id number] 03:22:04 Test Item Value Reference Range Interpretation Comments Adenovirus (test code = Not Detected Not Detected 01919-4) Coronavirus 229E (test Not Detected Not Detected code = 28765-6) Coronavirus HKU1 (test Not Detected Not Detected code = 46620-1) Coronavirus NL63 (test Not Detected Not Detected code = 54620-7) Coronavirus OC43 (test Not Detected Not Detected code = 43585-9) COVID19 (SARS-CoV-2) Not Detected Not Detected (test code = 96138-5) Human Metapneumovirus Not Detected Not Detected (test code = 78836-3) Human Not Detected Not Detected Rhinovirus/Enterovirus (test code = 31416-4) Influenza A (test code Not Detected Not Detected = 70428-2) Influenza A H1 (test Not Detected Not Detected code = 58513-9) Influenza A H1 2009 Not Detected Not Detected (test code = 85864-9) Influenza A H3 (test Not Detected Not Detected code = 37290-9) Influenza B (test code Not Detected Not Detected = 92585-6) Parainfluenza 1 (test Not Detected Not Detected code = 10913-4) Parainfluenza 2 (test Not Detected Not Detected code = 37193-0) Parainfluenza 3 (test Not Detected Not Detected code = 82108-2) Parainfluenza 4 (test Not Detected Not Detected code = 91405-9) Respiratory Syncytial Not Detected Not Detected Virus (test code = 76452-3) Bordetella Not Detected Not Detected Parapertussis (test code = 30492-2) Bordetella pertussis Not Detected Not Detected (test code = 44838-3) Chlamydiophila Not Detected Not Detected pneumoniae (test code = 24375-2) Mycoplasma pneumoniae Not Detected Not Detected (test code = 62413-6) JOAQUIN (test code = JOAQUIN) Has patient had a positive for COVID-19 result in the last 3 months?->No The [employer] RP2.1 is a real-time, nested multiplexed polymerase chain reaction test designed to simultaneously identify nucleic acids from 22 different viruses and bacteria associated with respiratory tract infection, including SARS-CoV-2, from a single nasopharyngeal swab (SHEAR GRINDER OPERATOR HELPER) specimen obtained from individuals suspected of respiratory tract infections, including COVID-19. Results must be interpreted within the context of all relevant clinical and laboratory findings and should not form the sole basis for a diagnosis or treatment decision. Positive results do not rule out coninfection with other organisms. Negative results in the setting of a respiratory illness may be due to infection with pathogens that are not detected by this panel, or a lower respiratory tract infection that may not be detected by an SHEAR GRINDER OPERATOR HELPER specimen. Internal controls are used to monitor all stages of the test process and assess for possible amplification inhibitors. If inhibition is detected, testing is repeated and if inhibition is confirmed the specimen is resulted as "Invalid". When an "Invalid" result occurs, it is recommended to wait 3 days before submitting a new specimen for testing if clinically indicated. This assay has been approved by the FDA for use in laboratories that have been CLIA-certified to perform moderate-complexity and high-complexity tests. The [facility] at [facility], CLIA Accreditation #[id number] and CAP Accreditation #[id number], verified the performance characteristics of this assay. [facility] at [facility] performs the assay using the [employer] System. [facility] CenterAntibody [id number] 00:24:43 Test Item Value Reference Range Interpretation Comments ABSC. (test code = 890-4) Negative ABSC [facility] CenterABORh2023-02-22 00:24:42 Test Item Value Reference Range Interpretation Comments ABORh. (test code = 882-1) A POS [facility] CenterClot Expiration [id number] 00:24:36 Test Item Value Reference Range Interpretation Comments T & S Expiration (test code = 06/21/2022 5318) [facility] CenteraPTT2023-02-21 21:14:11 Test Item Value Reference Range Interpretation Comments aPTT (test code = 22.7 See_Comment L no clot 51674-0) 3:14:01 PM [employer] td [Automated mess age] The system [employer] generated this result transmitted ref erence range: 22.8 - 3 4.2 second(s). The reference range was not used to int erpret this result as normal/abnormal . Lab Interpretation (test Abnormal code = 74643-1) [facility]eraPTT2023-[facility]-21 21:14:11 Test Item Value Reference Range Interpretation Comments aPTT (test code = 22.7 See_Comment L no clot 34920-9) 3:14:01 PM [employer] td [Automated mess age] The system [employer] generated this result transmitted ref erence range: 22.8 - 3 4.2 second(s). The reference range was not used to int erpret this result as normal/abnormal . Lab Interpretation (test Abnormal code = 67272-4) [facility] CenteraPTT[facility]-21 21:14:11 Test Item Value Reference Range Interpretation Comments aPTT (test code = 22.7 See_Comment L no clot 11210-1) 3:14:01 PM [employer] td [Automated mess age] The system [employer] generated this result transmitted ref erence range: 22.8 - 3 4.2 second(s). The reference range was not used to int erpret this result as normal/abnormal . Lab Interpretation (test Abnormal code = 69783-6) [facility]TT[facility] 21:14:11 Test Item Value Reference Range Interpretation Comments aPTT (test code = 22.7 See_Comment L no clot 74107-3) 3:14:01 PM [employer] td [Automated mess age] The system [employer] generated this result transmitted ref erence range: 22.8 - 3 4.2 second(s). The reference range was not used to int erpret this result as normal/abnormal . Lab Interpretation (test Abnormal code = 79583-3) [facility] 21:14:11 Test Item Value Reference Range Interpretation Comments aPTT (test code = 22.7 See_Comment L no clot 56190-4) 3:14:01 PM [employer] td [Automated mess age] The system [employer] generated this result transmitted ref erence range: 22.8 - 3 4.2 second(s). The reference range was not used to int erpret this result as normal/abnormal . Lab Interpretation (test Abnormal code = 67752-0) [facility] CenterProthrombin Time with [id number] 21:14:10 Test Item Value Reference Range Interpretation Comments PT (test code = 5902-2) 13.7 See_Comment no c lot 06/18/2022 3:14:01 PM [employer] td [Automated mess age] The system whic h generated this result transmitted ref erence range: 11.9 - 1 4.1 second(s). The reference range was not used to int erpret this result as normal/abnormal . INR (test code = 6301-6) 1.11 0.89-1.10 H no clot 06/18/2022 3:14:01 PM [employer] td Lab Interpretation (test Abnormal code = 22689-1) [facility] CenterProthrombin Time with [id number] 21:14:10 Test Item Value Reference Range Interpretation Comments PT (test code = 5902-2) 13.7 See_Comment no c lot 06/18/2022 3:14:01 PM [employer] td [Automated mess age] The system Exhbit generated this result transmitted ref erence range: 11.9 - 1 4.1 second(s). The reference range was not used to int erpret this result as normal/abnormal . INR (test code = 6301-6) 1.11 0.89-1.10 H no clot 06/18/2022 3:14:01 PM [employer] td Lab Interpretation (test Abnormal code = 91358-5) [facility] with [id number] 21:14:10 Test Item Value Reference Range Interpretation Comments PT (test code = 5902-2) 13.7 See_Comment no c lot 06/18/2022 3:14:01 PM [employer] td [Automated mess age] The system Exhbit generated this result transmitted ref erence range: 11.9 - 1 4.1 second(s). The reference range was not used to int erpret this result as normal/abnormal . INR (test code = 6301-6) 1.11 0.89-1.10 H no clot 06/18/2022 3:14:01 PM [employer] td Lab Interpretation (test Abnormal code = 79088-9) [facility] with [id number] 21:14:10 Test Item Value Reference Range Interpretation Comments PT (test code = 5902-2) 13.7 See_Comment no c lot 06/18/2022 3:14:01 PM [employer] td [Automated mess age] The system Exhbit generated this result transmitted ref erence range: 11.9 - 1 4.1 second(s). The reference range was not used to int erpret this result as normal/abnormal . INR (test code = 6301-6) 1.11 0.89-1.10 H no clot 06/18/2022 3:14:01 PM [employer] td Lab Interpretation (test Abnormal code = 40885-3) [facility] with [id number] 21:14:10 Test Item Value Reference Range Interpretation Comments PT (test code = 5902-2) 13.7 See_Comment no c lot 06/18/2022 3:14:01 PM [employer] td [Automated mess age] The system Exhbit generated this result transmitted ref erence range: 11.9 - 1 4.1 second(s). The reference range was not used to int erpret this result as normal/abnormal . INR (test code = 6301-6) 1.11 0.89-1.10 H no clot 06/18/2022 3:14:01 PM [employer] td Lab Interpretation (test Abnormal code = 87435-1) [facility] [id number] 21:14:09 Test Item Value Reference Range Interpretation Comments D-Dimer (test code = 4.74 See_Comment H no clot 06/18/2022 83114-2) 3:14:01 PM [employer] tdThe cut off value for e xclusion of venous thromboembolism is <0.51 mcg/mL FEUs (fi brinogen equivalent unit s). [Automated mess age] The system which ge nerated this result tra nsmitted reference range : 0.10 - 0.50 mcg/ml FEU . The reference range was not used to interpr et this result as normal/abnormal . Lab Interpretation Abnormal (test code = 76563-8) [facility] [id number] 21:14:09 Test Item Value Reference Range Interpretation Comments D-Dimer (test code = 4.74 See_Comment H no clot 06/18/2022 64078-7) 3:14:01 PM [employer] tdThe cut off value for e xclusion of venous thromboembolism is <0.51 mcg/mL FEUs (fi brinogen equivalent unit s). [Automated mess age] The system which ge nerated this result tra nsmitted reference range : 0.10 - 0.50 mcg/ml FEU . The reference range was not used to interpr et this result as normal/abnormal . Lab Interpretation Abnormal (test code = 92829-3) [facility] [id number] 21:14:09 Test Item Value Reference Range Interpretation Comments D-Dimer (test code = 4.74 See_Comment H no clot 06/18/2022 12417-8) 3:14:01 PM [employer] tdThe cut off value for e xclusion of venous thromboembolism is <0.51 mcg/mL FEUs (fi brinogen equivalent unit s). [Automated mess age] The system which ge nerated this result tra nsmitted reference range : 0.10 - 0.50 mcg/ml FEU . The reference range was not used to interpr et this result as normal/abnormal . Lab Interpretation Abnormal (test code = 33626-4) [facility] [id number] 21:14:09 Test Item Value Reference Range Interpretation Comments D-Dimer (test code = 4.74 See_Comment H no clot 06/18/2022 41697-3) 3:14:01 PM [employer] tdThe cut off value for e xclusion of venous thromboembolism is <0.51 mcg/mL FEUs (fi brinogen equivalent unit s). [Automated mess age] The system which ge nerated this result tra nsmitted reference range : 0.10 - 0.50 mcg/ml FEU . The reference range was not used to interpr et this result as normal/abnormal . Lab Interpretation Abnormal (test code = 34981-2) [facility] [id number] 21:14:09 Test Item Value Reference Range Interpretation Comments D-Dimer (test code = 4.74 See_Comment H no clot 06/18/2022 16922-6) 3:14:01 PM [employer] tdThe cut off value for e xclusion of venous thromboembolism is <0.51 mcg/mL FEUs (fi brinogen equivalent unit s). [Automated mess age] The system which ge nerated this result tra nsmitted reference range : 0.10 - 0.50 mcg/ml FEU . The reference range was not used to interpr et this result as normal/abnormal . Lab Interpretation Abnormal (test code = 09774-6) [facility] CenterCRP (C-reactive protein)2022-06-18 21:10:37 Test Item Value Reference Range Interpretation Comments CRP (test code = 29.31 mg/[place] [address]-0) CRP assay are a s follows: Reference range s when used to assess cardi ac risk: <1.00 mg/L Low cardiovascular risk 1.00-3.00 mg/L Average cardiovascular risk >3.00 mg/L High cardi ovascular risk.Reference ranges when used to assess inflammatory re sponses: Less than or eq ual to 10.00 mg/L. [facility]CRP (C-reactive protein)2022-06-18 21:10:37 Test Item Value Reference Range Interpretation Comments CRP (test code = 29.31 mg/[place] [address]-6) CRP assay are a s follows: Reference range s when used to assess cardi ac risk: <1.00 mg/L Low cardiovascular risk 1.00-3.00 mg/L Average cardiovascular risk >3.00 mg/L High cardi ovascular risk.Reference ranges when used to assess inflammatory re sponses: Less than or eq ual to 10.00 mg/L. [facility] (C-reactive protein)2022-06-18 21:10:37 Test Item Value Reference Range Interpretation Comments CRP (test code = 29.31 mg/[place] [address]-6) CRP assay are a s follows: Reference range s when used to assess cardi ac risk: <1.00 mg/L Low cardiovascular risk 1.00-3.00 mg/L Average cardiovascular risk >3.00 mg/L High cardi ovascular risk.Reference ranges when used to assess inflammatory re sponses: Less than or eq ual to 10.00 mg/L. [facility]CRP (C-reactive protein)2022-06-18 21:10:37 Test Item Value Reference Range Interpretation Comments CRP (test code = 29.31 mg/[place] [address]-5) CRP assay are a s follows: Reference range s when used to assess cardi ac risk: <1.00 mg/L Low cardiovascular risk 1.00-3.00 mg/L Average cardiovascular risk >3.00 mg/L High cardi ovascular risk.Reference ranges when used to assess inflammatory re sponses: Less than or eq ual to 10.00 mg/L. [facility]CRP (C-reactive protein)2022-06-18 21:10:37 Test Item Value Reference Range Interpretation Comments CRP (test code = 29.31 mg/[place] [address]-3) CRP assay are a s follows: Reference range s when used to assess cardi ac risk: <1.00 mg/L Low cardiovascular risk 1.00-3.00 mg/L Average cardiovascular risk >3.00 mg/L High cardi ovascular risk.Reference ranges when used to assess inflammatory re sponses: Less than or eq ual to 10.00 mg/L. [facility] CenterTotal [id number] 20:58:44 Test Item Value Reference Range Interpretation Comments Total Protein (test code = 2885-2) 7.6 g/dL 6.4-8.3 [facility] [id number] 20:58:44 Test Item Value Reference Range Interpretation Comments Total Protein (test code = 2885-2) 7.6 g/dL 6.4-8.3 [facility]Total [id number] 20:58:44 Test Item Value Reference Range Interpretation Comments Total Protein (test code = 2885-2) 7.6 g/dL 6.4-8.3 [facility] [id number] 20:58:44 Test Item Value Reference Range Interpretation Comments Total Protein (test code = 2885-2) 7.6 g/dL 6.4-8.3 [facility] [id number] 20:58:44 Test Item Value Reference Range Interpretation Comments Total Protein (test code = 2885-2) 7.6 g/dL 6.4-8.3 [facility] CenterProcalcitonin2023-02-21 20:58:32 Test Item Value Reference Range Interpretation Comments Procalcitonin (test 1.47 ng/mL <=0.08 H Procalci tonin > 2.00 code = 21142-2) ng/mL: Proca lcitonin levels above 2. 00 ng/mL are highl y suggestive of a high risk for system atic bacterial infec tion/ severe sepsis a nd/or septic shock. Procalcitonin < 0.50 ng/mL: Procalci tonin levels below 0. 50 ng/mL are at lo w risk for progression to severe sepsis a nd/ or septic shock. Procalcitonin ( ProCT) between 0.15 an d 2.0 ng/mL do not ex clude infection, leslie use localized infec tions (without system ic signs) may be associated with such low levels. Res ults greater than 40 0 ng/mL may not b e reliable due to the matrix effect w ith extended diluti on as it exceeds the sample wrapper's recommended carbajal it. Caution should be exercised when interpreting tovar ch values and done in conjunction wit clinical contex t. Lab Interpretation Abnormal (test code = 71368-1) [facility] CenterProcalcitonin2023-02-21 20:58:32 Test Item Value Reference Range Interpretation Comments Procalcitonin (test 1.47 ng/mL <=0.08 H Procalci tonin > 2.00 code = 80359-4) ng/mL: Proca lcitonin levels above 2. 00 ng/mL are highl y suggestive of a high risk for system atic bacterial infec tion/ severe sepsis a nd/or septic shock. Procalcitonin < 0.50 ng/mL: Procalci tonin levels below 0. 50 ng/mL are at lo w risk for progression to severe sepsis a nd/ or septic shock. Procalcitonin ( ProCT) between 0.15 an d 2.0 ng/mL do not ex clude infection, leslie use localized infec tions (without system ic signs) may be associated with such low levels. Res ults greater than 40 0 ng/mL may not b e reliable due to the matrix effect w ith extended diluti on as it exceeds the sample wrapper's recommended carbajal it. Caution should be exercised when interpreting tovar ch values and done in conjunction wit clinical contex t. Lab Interpretation Abnormal (test code = 33362-3) [facility] CenterProcalcitonin2023-02-21 20:58:32 Test Item Value Reference Range Interpretation Comments Procalcitonin (test 1.47 ng/mL <=0.08 H Procalci tonin > 2.00 code = 30547-2) ng/mL: Proca lcitonin levels above 2. 00 ng/mL are highl y suggestive of a high risk for system atic bacterial infec tion/ severe sepsis a nd/or septic shock. Procalcitonin < 0.50 ng/mL: Procalci tonin levels below 0. 50 ng/mL are at lo w risk for progression to severe sepsis a nd/ or septic shock. Procalcitonin ( ProCT) between 0.15 an d 2.0 ng/mL do not ex clude infection, leslie use localized infec tions (without system ic signs) may be associated with such low levels. Res ults greater than 40 0 ng/mL may not b e reliable due to the matrix effect w ith extended diluti on as it exceeds the sample wrapper's recommended carbajal it. Caution should be exercised when interpreting tovar ch values and done in conjunction wit clinical contex t. Lab Interpretation Abnormal (test code = 76259-4) [facility] CenterProcalcitonin2023-02-21 20:58:32 Test Item Value Reference Range Interpretation Comments Procalcitonin (test 1.47 ng/mL <=0.08 H Procalci tonin > 2.00 code = 30002-5) ng/mL: Proca lcitonin levels above 2. 00 ng/mL are highl y suggestive of a high risk for system atic bacterial infec tion/ severe sepsis a nd/or septic shock. Procalcitonin < 0.50 ng/mL: Procalci tonin levels below 0. 50 ng/mL are at lo w risk for progression to severe sepsis a nd/ or septic shock. Procalcitonin ( ProCT) between 0.15 an d 2.0 ng/mL do not ex clude infection, leslie use localized infec tions (without system ic signs) may be associated with such low levels. Res ults greater than 40 0 ng/mL may not b e reliable due to the matrix effect w ith extended diluti on as it exceeds the sample wrapper's recommended carbajal it. Caution should be exercised when interpreting tovar ch values and done in conjunction wit clinical contex t. Lab Interpretation Abnormal (test code = 89359-7) [facility] CenterProcalcitonin2023-02-21 20:58:32 Test Item Value Reference Range Interpretation Comments Procalcitonin (test 1.47 ng/mL <=0.08 H Procalci tonin > 2.00 code = 65431-6) ng/mL: Proca lcitonin levels above 2. 00 ng/mL are highl y suggestive of a high risk for system atic bacterial infec tion/ severe sepsis a nd/or septic shock. Procalcitonin < 0.50 ng/mL: Procalci tonin levels below 0. 50 ng/mL are at lo w risk for progression to severe sepsis a nd/ or septic shock. Procalcitonin ( ProCT) between 0.15 an d 2.0 ng/mL do not ex clude infection, leslie use localized infec tions (without system ic signs) may be associated with such low levels. Res ults greater than 40 0 ng/mL may not b e reliable due to the matrix effect w ith extended diluti on as it exceeds the sample wrapper's recommended carbajal it. Caution should be exercised when interpreting tovar ch values and done in conjunction [facility] clinical contex t. Lab Interpretation Abnormal (test code = 19132-7) [facility] CenterPOC [id number] 20:54:16 Test Item Value Reference Range Interpretation Comments POC VB pH (test code 7.42 7.31-7.41 H = 6-6) POC VB pCO2 (test 38 See_Comment L [Automate d message] code = 2020-07) The system cloudswave generated this result transmitted ref erence range: 41 - 51 mmHg. The reference r sam was not used to interpret this result as normal/abnor mal. POC VB pO2 (test 41 mmHg code = 270-2) POC VB TCO2 (test 26 See_Comment [Automate d message] code = 2026-04) The system cloudswave generated this result transmitted ref erence range: 24 - 29 mEq/L. The reference r sam was not used to interpret this result as normal/abnor mal. POC VB Bicarb (test 24 mmol/L 23-28 code = 09101-2) POC VB Base Ex (test 0 mmol/L -2-3 code = 1927-3) POC VB O2 Sat (test 77 % code = 2711-0) POC VB LAC (test 2.83 mmol/L 0.90-1.70 H Method desc ription: code = 2519-7) The i-STAT is an analyzer used f or in vitro quantific ation of various anal ytes in whole blood. The device uses a s richard disposable cart ridge which contains microfabricated sensors, a calibration april ution, fluidics system , and a waste chamber . Each test cartridge contains chemic ally sensitive biose nsors on a [email or web address] ip that are config ured to perform spec ific tests. The microfabricated sensors measure analyte concent ration by an electroch emical assay. POC Sample Type Venous (test code = 6690) POC Clean Dev (test --- code = 6672) Performing Lab (test MDA Main Main Ca mpus code = 41138) [facility] nical Lab, [address] [place], [place] [address]margo [place] [address]; Stitching Machine Operator: Cyndy Ramirez MD; Waived Point of Care Testing - Abdirahman murillo MD Lab Interpretation Abnormal (test code = 54482-0) [facility] [id number] 20:54:16 Test Item Value Reference Range Interpretation Comments POC VB pH (test code 7.42 7.31-7.41 H = 2746-6) POC VB pCO2 (test 38 See_Comment L [Automate d message] code = 2020-07) The system Reconnex generated this result transmitted ref erence range: 41 - 51 mmHg. The reference r sam was not used to interpret this result as normal/abnor mal. POC VB pO2 (test 41 mmHg code = 2705-2) POC VB TCO2 (test 26 See_Comment [Automate d message] code = 2026-04) The system Re[employer] generated this result transmitted ref erence range: 24 - 29 mEq/L. The reference r sam was not used to interpret this result as normal/abnor mal. POC VB Bicarb (test 24 mmol/L - code = 93679-4) POC VB Base Ex (test 0 mmol/L -2-3 code = 1927-3) POC VB O2 Sat (test 77 % code = 2711-0) POC VB LAC (test 2.83 mmol/L 0.90-1.70 H Method desc ription: code = 2519-7) The i-STAT is an analyzer used f or in vitro quantific ation of various anal ytes in whole blood. The device uses a s richadr disposable cart ridge which contains microfabricated sensors, a calibration april ution, fluidics system , and a waste chamber . Each test cartridge contains chemic ally sensitive biose nsors on a [email or web address] ip that are config ured to perform spec ific tests. The microfabricated sensors measure analyte concent ration by an electroch emical assay. POC Sample Type Venous (test code = 6690) POC Clean Dev (test --- code = 6672) Performing Lab (test MDA Main Main Ca mpus code = 17882) [facility] Cli nical Lab, [address] [place], [place] [address]m[place], [place] [address]; Stitching Machine Operator: Cyndy Ramirez MD; Waived Point of Care Testing - Abdirahman murillo MD Lab Interpretation Abnormal (test code = 38921-0) [facility] [id number] 20:54:16 Test Item Value Reference Range Interpretation Comments POC VB pH (test code 7.42 7.31-7.41 H = 2746-6) POC VB pCO2 (test 38 See_Comment L [Automate d message] code = 2020-07) The system Re[employer] generated this result transmitted ref erence range: 41 - 51 mmHg. The reference r sam was not used to interpret this result as normal/abnor mal. POC VB pO2 (test 41 mmHg code = 2705-2) POC VB TCO2 (test 26 See_Comment [Automate d message] code = 2026-04) The system cloudswave generated this result transmitted ref erence range: 24 - 29 mEq/L. The reference r sam was not used to interpret this result as normal/abnor mal. POC VB Bicarb (test 24 mmol/L 23-28 code = 70865-4) POC VB Base Ex (test 0 mmol/L -2-3 code = 1927-3) POC VB O2 Sat (test 77 % code = 2711-0) POC VB LAC (test 2.83 mmol/L 0.90-1.70 H Method desc ription: code = 2519-7) The i-STAT is an analyzer used f or in vitro quantific ation of various anal ytes in whole blood. The device uses a s richard disposable cart ridge which contains microfabricated sensors, a calibration april ution, fluidics system , and a waste chamber . Each test cartridge contains chemic ally sensitive biose nsors on a [email or web address] ip that are config ured to perform spec ific tests. The microfabricated sensors measure analyte concent ration by an electroch emical assay. POC Sample Type Venous (test code = 6690) POC Clean Dev (test --- code = 6672) Performing Lab (test MDA Main Main Ca mpus code = 38586) [facility] Cli nical Lab, [address] [place] [address] [place] [address]; Stitching Machine Operator: Cyndy Ramirez MD; Waived Point of Care Testing - Abdirahman murillo MD Lab Interpretation Abnormal (test code = 81564-5) [facility] VBG+[id number] 20:54:16 Test Item Value Reference Range Interpretation Comments POC VB pH (test code 7.42 7.31-7.41 H = 2746-6) POC VB pCO2 (test 38 See_Comment L [Automate d message] code = 2020-) The system Reconnex generated this result transmitted ref erence range: 41 - 51 mmHg. The reference r sam was not used to interpret this result as normal/abnor mal. POC VB pO2 (test 41 mmHg code = 2705-2) POC VB TCO2 (test 26 See_Comment [Automate d message] code = 2026-) The system cloudswave generated this result transmitted ref erence range: 24 - 29 mEq/L. The reference r sam was not used to interpret this result as normal/abnor mal. POC VB Bicarb (test 24 mmol/L 23-28 code = 33593-4) POC VB Base Ex (test 0 mmol/L -2-3 code = 1927-3) POC VB O2 Sat (test 77 % code = 2711-0) POC VB LAC (test 2.83 mmol/L 0.90-1.70 H Method desc ription: code = 2519-7) The i-STAT is an analyzer used f or in vitro quantific ation of various anal ytes in whole blood. The device uses a s richard disposable cart ridge which contains microfabricated sensors, a calibration april ution, fluidics system , and a waste chamber . Each test cartridge contains chemic ally sensitive biose nsors on a [email or web address] ip that are config ured to perform spec ific tests. The microfabricated sensors measure analyte concent ration by an electroch emical assay. POC Sample Type Venous (test code = 6690) POC Clean Dev (test --- code = 6672) Performing Lab (test MDA Main Main Ca mpus code = 97935) [facility] Cli nical Lab, [address] [place] [address]; Stitching Machine Operator: Cyndy Ramirez MD; Waived Point of Care Testing - Abdirahman murillo MD Lab Interpretation Abnormal (test code = 74588-2) [facility] VBG+[id number] 20:54:16 Test Item Value Reference Range Interpretation Comments POC VB pH (test code 7.42 7.31-7.41 H = 2746-6) POC VB pCO2 (test 38 See_Comment L [Automate d message] code = 2020-) The system Re[employer] generated this result transmitted ref erence range: 41 - 51 mmHg. The reference r sam was not used to interpret this result as normal/abnor mal. POC VB pO2 (test 41 mmHg code = 2705-2) POC VB TCO2 (test 26 See_Comment [Automate d message] code = 2026-) The system Re[employer] generated this result transmitted ref erence range: 24 - 29 mEq/L. The reference r sam was not used to interpret this result as normal/abnor mal. POC VB Bicarb (test 24 mmol/L 23-28 code = 57145-5) POC VB Base Ex (test 0 mmol/L -2-3 code = 1927-3) POC VB O2 Sat (test 77 % code = 2711-0) POC VB LAC (test 2.83 mmol/L 0.90-1.70 H Method desc ription: code = 2519-7) The i-STAT is an analyzer used f or in vitro quantific ation of various anal ytes in whole blood. The device uses a s richard disposable cart ridge which contains microfabricated sensors, a calibration april ution, fluidics system , and a waste chamber . Each test cartridge contains chemic ally sensitive biose nsors on a [email or web address] ip that are config ured to perform spec ific tests. The microfabricated sensors measure analyte concent ration by an electroch emical assay. POC Sample Type Venous (test code = 6690) POC Clean Dev (test --- code = 6672) Performing Lab (test MDA Main Main Ca mpus code = 19847) [facility] Cli nical Lab, [address] [place] [address]; Stitching Machine Operator: Cyndy Ramirez MD; Waived Point of Care Testing - Abdirahman murillo MD Lab Interpretation Abnormal (test code = 05100-5) [facility] 20:48:38 Test Item Value Reference Range Interpretation Comments Fibrinogen (test code = 3255-7) 330 mg/dL 214-503 [facility]2023-[facility]-21 20:48:38 Test Item Value Reference Range Interpretation Comments Fibrinogen (test code = 3255-7) 330 mg/dL 214-503 [facility]2023-[facility]-21 20:48:38 Test Item Value Reference Range Interpretation Comments Fibrinogen (test code = 3255-7) 330 mg/dL 214-503 [facility]2023-[facility]-21 20:48:38 Test Item Value Reference Range Interpretation Comments Fibrinogen (test code = 3255-7) 330 mg/dL 214-503 [facility]2023-[facility]-21 20:48:38 Test Item Value Reference Range Interpretation Comments Fibrinogen (test code = 3255-7) 330 mg/dL 214-503 [facility] CenterBlood [id number] 22:26:32 Test Item Value Reference Range Interpretation Comments Final Report (test No growth code = 8488) Path Review - Immunity and antibiotic Bottle/Isolator use may render culture (test code = 8499) negative. Ongoing infection requires repeat culture. The results have been reviewed and electronically signed by Pathologist:Kwesi Tristan MD, PhD #[id number] JOAQUIN (test code = With am labs JOAQUIN) [facility] [facility] - [facility]14 22:08:31 Test Item Value Reference Range Interpretation Comments Final Report (test No growth code = 8488) Path Review - Immunity and antibiotic Bottle/Isolator use may render culture (test code = 8499) negative. Ongoing infection requires repeat culture. The results have been reviewed and electronically signed by Pathologist:Kwesi Tristan MD, PhD #[id number] [facility] PCR- Asymptomatic [id number] 06:49:55 Test Item Value Reference Range Interpretation Comments COVID19 (SARS Not Detected Not Detected CoV-2) Result (test code = ____This test i s a 20454-0) qualitative reverse-transcr iptase polymerase jenaro n reaction (RT-PC R) developed for t he [employer] 680 0 system and inte nded for qualitative detection of SA RS CoV-2 RNA in nasopharyngeal and oropharyngeal s wab specimens colle cted from any indivi duals, including those suspected of CO VID-19 by their health care provider, and t hose without symptom s or other reasons t o suspect COVID-1 9. A fact sheet for patients provid ed by the manufacture r ([employer]) c an be reviewed at:https://www. fda.go v/media/312709/ downlo ad. A fact shee t for Health Care pro viders is provided by the sample wrapper ([employer]) and can be reviewed at: https://www.fda .gov/m edia/034657/areli nload Results must be interpreted wit hin the context of all relevant clinic al and laboratory find ings and should not form the sole basis for a diagnosis or treatment decis ion. Positive result s do not rule out bacterial infec tion or co-infection with other viruses. Negative result s do not rule out SARS-CoV-2 and must be combined wit h clinical observations, p atient history, and/or epidemiological information. "Presumptive Positive" resul ts are due to partial amplification o f SARS-CoV-2 targ ets and indicates l ow amounts of viru s present in the specimen at or near the limit of detection. Regardless, individuals wit h "Presumptive Positive" resul ts should be manag ed per institutional guidelines as individuals pos itive for SARS-CoV-2 virus, including use o f appropriate inf ection control protoco ls. Internal contro ls are included to ass ess for possible amplification inhibitors. If inhibition is detected, testi ng is repeated and if inhibition is confirmed the specimen is res ulted as "Invalid". W hen an "Invalid" resul t occurs, it is recommended to wait 3 days before submitting a ne w specimen for te sting if clinically indicated. This assay has been approv ed by the FDA for use only under Emergency Use Authorization ( EUA) in laboratories that have been CLIA-certified to perform moderate-comple xity and high-comple xity tests. The performance characteristics of this assay were verified by the Microbiology Laboratory at [facility], CLIA Accreditation # : [id number] and CAP Accreditation # : [id number]. COVID19 SARS ENROLLMENT NURSE Swab Source (test code = 29413) COVID19 SARS Inpatient Indication (test Admission code = 45271) JOAQUIN (test code = Weekly hematology JOAQUIN) [facility]- Asymptomatic [id number] 06:49:55 Test Item Value Reference Range Interpretation Comments COVID19 (SARS Not Detected Not Detected CoV-2) Result (test code = ____This test i s a 63792-5) qualitative reverse-transcr iptase polymerase jenaro n reaction (RT-PC R) developed for t he [employer] 680 0 system and inte nded for qualitative detection of SA RS CoV-2 RNA in nasopharyngeal and oropharyngeal s wab specimens colle cted from any indivi duals, including those suspected of CO VID-19 by their health care provider, and t hose without symptom s or other reasons t o suspect COVID-1 9. A fact sheet for patients provid ed by the manufacture r ([employer]) c an be reviewed at:https://www. fda.go v/media/514881/ downlo ad. A fact shee t for Health Care pro viders is provided by the sample wrapper ([employer]) and can be reviewed at: https://www.fda .gov/m edia/570691/areli nload Results must be interpreted wit hin the context of all relevant clinic al and laboratory find ings and should not form the sole basis for a diagnosis or treatment decis ion. Positive result s do not rule out bacterial infec tion or co-infection with other viruses. Negative result s do not rule out SARS-CoV-2 and must be combined wit h clinical observations, p atient history, and/or epidemiological information. "Presumptive Positive" resul ts are due to partial amplification o f SARS-CoV-2 targ ets and indicates l ow amounts of viru s present in the specimen at or near the limit of detection. Regardless, individuals wit h "Presumptive Positive" resul ts should be manag ed per institutional guidelines as individuals pos itive for SARS-CoV-2 virus, including use o f appropriate inf ection control protoco ls. Internal contro ls are included to ass ess for possible amplification inhibitors. If inhibition is detected, testi ng is repeated and if inhibition is confirmed the specimen is res ulted as "Invalid". W hen an "Invalid" resul t occurs, it is recommended to wait 3 days before submitting a ne w specimen for te sting if clinically indicated. This assay has been approv ed by the FDA for use only under Emergency Use Authorization ( EUA) in laboratories that have been CLIA-certified to perform moderate-comple xity and high-comple xity tests. The performance characteristics of this assay were verified by the Microbiology Laboratory at [facility], CLIA Accreditation # : [id number] and CAP Accreditation # : [id number]. COVID19 SARS ENROLLMENT NURSE Swab Source (test code = 50933) COVID19 SARS Inpatient Indication (test Admission code = 80280) JOAQUIN (test code = Weekly hematology JOAQUIN) [facility] (SARS-[facility]-2) PCR- Asymptomatic [id number] 06:49:55 Test Item Value Reference Range Interpretation Comments COVID19 (SARS Not Detected Not Detected CoV-2) Result (test code = ____This test i s a 45190-8) qualitative reverse-transcr iptase polymerase jenaro n reaction (RT-PC R) developed for t he [employer] 680 0 system and inte nded for qualitative detection of SA RS CoV-2 RNA in nasopharyngeal and oropharyngeal s wab specimens colle cted from any indivi duals, including those suspected of CO VID-19 by their health care provider, and t hose without symptom s or other reasons t o suspect COVID-1 9. A fact sheet for patients provid ed by the manufacture r ([employer]) c an be reviewed at:https://www. fda.go v/media/655622/ downlo ad. A fact shee t for Health Care pro viders is provided by the sample wrapper ([employer]) and can be reviewed at: https://www.fda .gov/m edia/197573/areli nload Results must be interpreted wit hin the context of all relevant clinic al and laboratory find ings and should not form the sole basis for a diagnosis or treatment decis ion. Positive result s do not rule out bacterial infec tion or co-infection with other viruses. Negative result s do not rule out SARS-CoV-2 and must be combined wit h clinical observations, p atient history, and/or epidemiological information. "Presumptive Positive" resul ts are due to partial amplification o f SARS-CoV-2 targ ets and indicates l ow amounts of viru s present in the specimen at or near the limit of detection. Regardless, individuals wit h "Presumptive Positive" resul ts should be manag ed per institutional guidelines as individuals pos itive for SARS-CoV-2 virus, including use o f appropriate inf ection control protoco ls. Internal contro ls are included to ass ess for possible amplification inhibitors. If inhibition is detected, testi ng is repeated and if inhibition is confirmed the specimen is res ulted as "Invalid". W hen an "Invalid" resul t occurs, it is recommended to wait 3 days before submitting a ne w specimen for te sting if clinically indicated. This assay has been approv ed by the FDA for use only under Emergency Use Authorization ( EUA) in laboratories that have been CLIA-certified to perform moderate-comple xity and high-comple xity tests. The performance characteristics of this assay were verified by the Microbiology Laboratory at [facility], CLIA Accreditation # : [id number] and CAP Accreditation # : [id number]. COVID19 SARS ENROLLMENT NURSE Swab Source (test code = 66481) COVID19 SARS Inpatient Indication (test Admission code = 04189) JOAQUIN (test code = Weekly hematology JOAQUIN) [facility] ([facility]) PCR- Asymptomatic [id number] 06:49:55 Test Item Value Reference Range Interpretation Comments COVID19 (SARS Not Detected Not Detected CoV-2) Result (test code = ____This test i s a 86558-3) qualitative reverse-transcr iptase polymerase jenaro n reaction (RT-PC R) developed for t he [employer] 680 0 system and inte nded for qualitative detection of SA RS CoV-2 RNA in nasopharyngeal and oropharyngeal s wab specimens colle cted from any indivi duals, including those suspected of CO VID-19 by their health care provider, and t hose without symptom s or other reasons t o suspect COVID-1 9. A fact sheet for patients provid ed by the manufacture r ([employer]) c an be reviewed at:https://www. fda.go v/media/931380/ downlo ad. A fact shee t for Health Care pro viders is provided by the sample wrapper ([employer]) and can be reviewed at: https://www.fda .gov/m edia/843387/areli nload Results must be interpreted wit hin the context of all relevant clinic al and laboratory find ings and should not form the sole basis for a diagnosis or treatment decis ion. Positive result s do not rule out bacterial infec tion or co-infection with other viruses. Negative result s do not rule out SARS-CoV-2 and must be combined wit h clinical observations, p atient history, and/or epidemiological information. "Presumptive Positive" resul ts are due to partial amplification o f SARS-CoV-2 targ ets and indicates l ow amounts of viru s present in the specimen at or near the limit of detection. Regardless, individuals wit h "Presumptive Positive" resul ts should be manag ed per institutional guidelines as individuals pos itive for SARS-CoV-2 virus, including use o f appropriate inf ection control protoco ls. Internal contro ls are included to ass ess for possible amplification inhibitors. If inhibition is detected, testi ng is repeated and if inhibition is confirmed the specimen is res ulted as "Invalid". W hen an "Invalid" resul t occurs, it is recommended to wait 3 days before submitting a ne w specimen for te sting if clinically indicated. This assay has been approv ed by the FDA for use only under Emergency Use Authorization ( EUA) in laboratories that have been CLIA-certified to perform moderate-comple xity and high-comple xity tests. The performance characteristics of this assay were verified by the Microbiology Laboratory at [facility], CLIA Accreditation # : [id number] and CAP Accreditation # : [id number]. COVID19 SARS ENROLLMENT NURSE Swab Source (test code = 42686) COVID19 SARS Inpatient Indication (test Admission code = 92452) JOAQUIN (test code = Weekly hematology JOAQUIN) [facility] (SARS-[facility]-2) PCR- Asymptomatic [id number] 06:49:55 Test Item Value Reference Range Interpretation Comments COVID19 (SARS Not Detected Not Detected CoV-2) Result (test code = ____This test i s a 39285-2) qualitative reverse-transcr iptase polymerase jenaro n reaction (RT-PC R) developed for t he [employer] 680 0 system and inte nded for qualitative detection of SA RS CoV-2 RNA in nasopharyngeal and oropharyngeal s wab specimens colle cted from any indivi duals, including those suspected of CO VID-19 by their health care provider, and t hose without symptom s or other reasons t o suspect COVID-1 9. A fact sheet for patients provid ed by the manufacture r ([employer]) c an be reviewed at:https://www. fda.go v/media/641361/ downlo ad. A fact shee t for Health Care pro viders is provided by the sample wrapper ([employer]) and can be reviewed at: https://www.fda .gov/m edia/543509/areli nload Results must be interpreted wit hin the context of all relevant clinic al and laboratory find ings and should not form the sole basis for a diagnosis or treatment decis ion. Positive result s do not rule out bacterial infec tion or co-infection with other viruses. Negative result s do not rule out SARS-CoV-2 and must be combined wit h clinical observations, p atient history, and/or epidemiological information. "Presumptive Positive" resul ts are due to partial amplification o f SARS-CoV-2 targ ets and indicates l ow amounts of viru s present in the specimen at or near the limit of detection. Regardless, individuals wit h "Presumptive Positive" resul ts should be manag ed per institutional guidelines as individuals pos itive for SARS-CoV-2 virus, including use o f appropriate inf ection control protoco ls. Internal contro ls are included to ass ess for possible amplification inhibitors. If inhibition is detected, testi ng is repeated and if inhibition is confirmed the specimen is res ulted as "Invalid". W hen an "Invalid" resul t occurs, it is recommended to wait 3 days before submitting a ne w specimen for te sting if clinically indicated. This assay has been approv ed by the FDA for use only under Emergency Use Authorization ( EUA) in laboratories that have been CLIA-certified to perform moderate-comple xity and high-comple xity tests. The performance characteristics of this assay were verified by the Microbiology Laboratory at [facility], CLIA Accreditation # : [id number] and CAP Accreditation # : [id number]. COVID19 SARS ENROLLMENT NURSE Swab Source (test code = 75060) COVID19 SARS Inpatient Indication (test Admission code = 47764) JOAQUIN (test code = Weekly hematology JOAQUIN) [facility] ([facility]) PCR- Asymptomatic [id number] 06:49:55 Test Item Value Reference Range Interpretation Comments COVID19 (SARS Not Detected Not Detected CoV-2) Result (test code = ____This test i s a 89686-8) qualitative reverse-transcr iptase polymerase jenaro n reaction (RT-PC R) developed for t he [employer] 680 0 system and inte nded for qualitative detection of SA RS CoV-2 RNA in nasopharyngeal and oropharyngeal s wab specimens colle cted from any indivi duals, including those suspected of CO VID-19 by their health care provider, and t hose without symptom s or other reasons t o suspect COVID-1 9. A fact sheet for patients provid ed by the manufacture r ([employer]) c an be reviewed at:https://www. fda.go v/media/009685/ downlo ad. A fact shee t for Health Care pro viders is provided by the sample wrapper ([employer]) and can be reviewed at: https://www.fda .gov/m edia/383137/areli nload Results must be interpreted wit hin the context of all relevant clinic al and laboratory find ings and should not form the sole basis for a diagnosis or treatment decis ion. Positive result s do not rule out bacterial infec tion or co-infection with other viruses. Negative result s do not rule out SARS-CoV-2 and must be combined wit h clinical observations, p atient history, and/or epidemiological information. "Presumptive Positive" resul ts are due to partial amplification o f SARS-CoV-2 targ ets and indicates l ow amounts of viru s present in the specimen at or near the limit of detection. Regardless, individuals wit h "Presumptive Positive" resul ts should be manag ed per institutional guidelines as individuals pos itive for SARS-CoV-2 virus, including use o f appropriate inf ection control protoco ls. Internal contro ls are included to ass ess for possible amplification inhibitors. If inhibition is detected, testi ng is repeated and if inhibition is confirmed the specimen is res ulted as "Invalid". W hen an "Invalid" resul t occurs, it is recommended to wait 3 days before submitting a ne w specimen for te sting if clinically indicated. This assay has been approv ed by the FDA for use only under Emergency Use Authorization ( EUA) in laboratories that have been CLIA-certified to perform moderate-comple xity and high-comple xity tests. The performance characteristics of this assay were verified by the Microbiology Laboratory at [facility], CLIA Accreditation # : [id number] and CAP Accreditation # : [id number]. COVID19 SARS ENROLLMENT NURSE Swab Source (test code = 59509) COVID19 SARS Inpatient Indication (test Admission code = 50183) JOAQUIN (test code = Weekly hematology JOAQUIN) [facility] ([facility]) PCR- Asymptomatic [id number] 06:49:55 Test Item Value Reference Range Interpretation Comments COVID19 (SARS Not Detected Not Detected CoV-2) Result (test code = ____This test i s a 38111-1) qualitative reverse-transcr iptase polymerase jenaro n reaction (RT-PC R) developed for t he [employer] 680 0 system and inte nded for qualitative detection of SA RS CoV-2 RNA in nasopharyngeal and oropharyngeal s wab specimens colle cted from any indivi duals, including those suspected of CO VID-19 by their health care provider, and t hose without symptom s or other reasons t o suspect COVID-1 9. A fact sheet for patients provid ed by the manufacture r ([employer]) c an be reviewed at:https://www. fda.go v/media/428004/ downlo ad. A fact shee t for Health Care pro viders is provided by the sample wrapper ([employer]) and can be reviewed at: https://www.fda .gov/m edia/644081/areli nload Results must be interpreted wit hin the context of all relevant clinic al and laboratory find ings and should not form the sole basis for a diagnosis or treatment decis ion. Positive result s do not rule out bacterial infec tion or co-infection with other viruses. Negative result s do not rule out SARS-CoV-2 and must be combined wit h clinical observations, p atient history, and/or epidemiological information. "Presumptive Positive" resul ts are due to partial amplification o f SARS-CoV-2 targ ets and indicates l ow amounts of viru s present in the specimen at or near the limit of detection. Regardless, individuals wit h "Presumptive Positive" resul ts should be manag ed per institutional guidelines as individuals pos itive for SARS-CoV-2 virus, including use o f appropriate inf ection control protoco ls. Internal contro ls are included to ass ess for possible amplification inhibitors. If inhibition is detected, testi ng is repeated and if inhibition is confirmed the specimen is res ulted as "Invalid". W hen an "Invalid" resul t occurs, it is recommended to wait 3 days before submitting a ne w specimen for te sting if clinically indicated. This assay has been approv ed by the FDA for use only under Emergency Use Authorization ( EUA) in laboratories that have been CLIA-certified to perform moderate-comple xity and high-comple xity tests. The performance characteristics of this assay were verified by the Microbiology Laboratory at [facility], CLIA Accreditation # : [id number] and CAP Accreditation # : [id number]. COVID19 SARS ENROLLMENT NURSE Swab Source (test code = 16539) COVID19 SARS Inpatient Indication (test Admission code = 37257) JOAQUIN (test code = Weekly hematology JOAQUIN) [facility] 2022-05-13 23:10:57 Test Item Value Reference Range Interpretation Comments Final Report (test code = 8488) No growth [facility]LDH2023-[facility] 10:55:18 Test Item Value Reference Range Interpretation Comments LDH (test code = 301 U/L 135-225 H Results gre ater than 86858-5) 1651 U/L may no t be reliable due to matrix effect w ith extended diluti on as it exceeds the sample wrapper's recommended carbajal it. Caution should be exercised when interpreting tovar ch values and done in conjunction wit h clinical contex t. Lab Interpretation (test Abnormal code = 36676-2) [facility] 10:55:18 Test Item Value Reference Range Interpretation Comments LDH (test code = 301 U/L 135-225 H Results gre ater than 21277-5) 1651 U/L may no t be reliable due to matrix effect w ith extended diluti on as it exceeds the sample wrapper's recommended carbajal it. Caution should be exercised when interpreting tovar ch values and done in conjunction [facility] clinical contex t. Lab Interpretation (test Abnormal code = 12273-2) [facility] CenterAn[facility] [id number] 10:41:11 Test Item Value Reference Range Interpretation Comments Anion Gap (test code 9 See_Comment [Autom ated message] The = 17945-8) system which ge nerated this result transmit elbert reference range : 4 - 14 mEq/L. The refe rence range was not used to interpret this result as normal/abnormal . [facility] [id number] 10:41:11 Test Item Value Reference Range Interpretation Comments Anion Gap (test code 9 See_Comment [Autom ated message] The = 34699-3) system which ge nerated this result transmit elbert reference range : 4 - 14 mEq/L. The refe rence range was not used to interpret this result as normal/abnormal . [facility] CenterChloride [id number] 10:41:10 Test Item Value Reference Range Interpretation Comments Chloride (test code = 103 See_Comment [Auto mated message] The ) system which ge nerated this result tra nsmitted reference range : 98 - 107 mEq/L. The refe rence range was not u sed to interpret this result as normal/abnormal . [facility] Center[facility] [id number] 10:41:10 Test Item Value Reference Range Interpretation Comments Chloride (test code = 103 See_Comment [Auto mated message] The ) system which ge nerated this result tra nsmitted reference range : 98 - 107 mEq/L. The refe rence range was not u sed to interpret this result as normal/abnormal . [facility] CenterPotassium2023-01-16 10:41:09 Test Item Value Reference Range Interpretation Comments Potassium Lvl (test code 3.4 See_Comment L [A utomated message] = 2823-3) The system [employer] generated this result transmitted ref erence range: 3.5 - 5. 1 mEq/L. The refe rence range was not u sed to interpret this result as normal/abnor mal. Lab Interpretation (test Abnormal code = 20149-0) [facility] CenterPotassium2023-01-16 10:41:09 Test Item Value Reference Range Interpretation Comments Potassium Lvl (test code 3.4 See_Comment L [A utomated message] = 2823-3) The system [employer] generated this result transmitted ref erence range: 3.5 - 5. 1 mEq/L. The refe rence range was not u sed to interpret this result as normal/abnor mal. Lab Interpretation (test Abnormal code = 32766-3) [facility] [id number] 10:41:08 Test Item Value Reference Range Interpretation Comments Sodium Lvl (test code 140 See_Comment [Auto mated message] The = 2951-2) system which ge nerated this result tra nsmitted reference range : 136 - 145 mEq/L. The refe rence range was not used to interpret this result as normal/abnormal . [facility] [id number] 10:41:08 Test Item Value Reference Range Interpretation Comments Sodium Lvl (test code 140 See_Comment [Auto mated message] The = 2951-2) system which ge nerated this result tra nsmitted reference range : 136 - 145 mEq/L. The refe rence range was not used to interpret this result as normal/abnormal . [facility] CenterGlucose, [id number] 10:41:07 Test Item Value Reference Range Interpretation Comments Glucose Random (test 92 mg/dL 70-199 Effecti ve 11/22/15, the code = 2345-7) glucose refer ence intervals have been updated based o n [place] [employer] aroldo delines (Standards of M edical Care in Diabete s 2016. Diabetes Care 2 016; 39: S13-S22).Fastin g blood glucose:Normal: 70-99 mg/dLImpaired f asting glucose (increa sed risk for diabetes or pre-diabetes): 100-125 mg/dLDiabetes m ellitus: >/=126 mg/dL Ra ndom blood glucose:N ormal: 70-199 mg/dLNot e: Random glucose >100 mg /dL is associated with increased risk for diabetes [facility] CenterGlucose, [id number] 10:41:07 Test Item Value Reference Range Interpretation Comments Glucose Random (test 92 mg/dL 70-199 Effecti ve 11/22/15, the code = 2345-7) glucose refer ence intervals have been updated based o n [place] [employer] aroldo delines (Standards of M edical Care in Diabete s 2016. Diabetes Care 2 016; 39: S13-S22).Fastin g blood glucose:Normal: 70-99 mg/dLImpaired f asting glucose (increa sed risk for diabetes or pre-diabetes): 100-125 mg/dLDiabetes m ellitus: >/=126 mg/dL Ra ndom blood glucose:N ormal: 70-199 mg/dLNot e: Random glucose >100 mg /dL is associated with increased risk for diabetes [facility] CenterFractionated Brbcjiwnz6664-67-62 10:41:06Bili Total<0.3<=1.2 mg/dLUT [facility]PITALUnTexas [facility] AzleFractionated Qeqovgtnk6329-75-60 10:41:06Bili Total<0.3<=1.2 mg/dLUT [facility]OSPITALUnTexas Health [facility] AzlePhosphorus Rvmbr1576-33-10 10:41:05 Test Item Value Reference Range Interpretation Comments Phosphorus (test code = 2777-1) 3.1 mg/dL 2.5-4.5 [facility] CenterPhosphorus [id number] 10:41:05 Test Item Value Reference Range Interpretation Comments Phosphorus (test code = 2777-1) 3.1 mg/dL 2.5-4.5 [facility] CenterGlomerular Filtration Rate 2022-05-13 10:41:04 Test Item Value Reference Range Interpretation Comments eGFR (test code = 109 See_Comment The eGFRcr is calculated with 16781) the 2020 CKD-EP I creatinine equation using creatinine, patient's age, and sex for adults 18 years of age and older. Other fa ctors, especially musc le mass, may affect accuracy and need to be considered.A ccording to the Kidney Dise ase: Improving Global Outcomes (KDIGO) CKD Work Group 2012 Clinical Practice Guidel ine, chronic kidney disease (CKD) is defined as the abnormalities of kidney struc ture or function, prese nt for more than 3 months, with implications fo r health. CKD should be class ified by cause, GFR cosme gory, and albuminuria cat egory. KDIGO guidelines prov florentin the following GFR c ategoriesStage Description GFR mL/min/1.73 m2G1* Normal or high >= 90G2* Mildly decrease d 60-89G3a Mildly to moder ately decreased 45-59 G3b Moderately to severely dec reased 30-44G4 Severely decrea sed 15-29G5 Kidney failure <15*In the absence of evid ence of kidney damage, neither G1 nor G2 fulfill criteri a for CKD. [Automated mess age] The system which ge nerated this result transmit elbert reference range: >=60 mL/ min/1.73 sq. m. The referenc e range was not used to int erpret this result as nataly l/abnormal. [facility] CenterGlomerular Filtration Rate 2022-05-13 10:41:04 Test Item Value Reference Range Interpretation Comments eGFR (test code = 109 See_Comment The eGFRcr is calculated with 16700) the 2020 CKD-EP I creatinine equation using creatinine, patient's age, and sex for adults 18 years of age and older. Other fa ctors, especially musc le mass, may affect accuracy and need to be considered.A ccording to the Kidney Dise ase: Improving Global Outcomes (KDIGO) CKD Work Group 2012 Clinical Practice Guidel ine, chronic kidney disease (CKD) is defined as the abnormalities of kidney struc ture or function, prese nt for more than 3 months, with implications fo r health. CKD should be class ified by cause, GFR cosme gory, and albuminuria cat egory. KDIGO guidelines prov florentin the following GFR c ategoriesStage Description GFR mL/min/1.73 m2G1* Normal or high >= 90G2* Mildly decrease d 60-89G3a Mildly to moder ately decreased 45-59 G3b Moderately to severely dec reased 30-44G4 Severely decrea sed 15-29G5 Kidney failure <15*In the absence of evid ence of kidney damage, neither G1 nor G2 fulfill criteri a for CKD. [Automated mess age] The system which ge nerated this result transmit elbert reference range: >=60 mL/ min/1.73 sq. m. The referenc e range was not used to int erpret this result as nataly l/abnormal. [facility] CenterCalcium [id number] 10:41:03 Test Item Value Reference Range Interpretation Comments Calcium Lvl (test code = 98959-6) 8.6 mg/dL 8.4-10.2 [facility] CenterCalcium [id number] 10:41:03 Test Item Value Reference Range Interpretation Comments Calcium Lvl (test code = 83690-2) 8.6 mg/dL 8.4-10.2 [facility] CenterUric Ugsl1863-96-15 10:41:02 Test Item Value Reference Range Interpretation Comments Uric Acid (test code = 3084-1) 2.6 mg/dL 3.4-7.0 L Lab Interpretation (test code = Abnormal 62636-7) [facility] CenterUric [id number] 10:41:02 Test Item Value Reference Range Interpretation Comments Uric Acid (test code = 3084-1) 2.6 mg/dL 3.4-7.0 L Lab Interpretation (test code = Abnormal 39043-9) [facility] CenterAlbumin [id number] 10:41:01 Test Item Value Reference Range Interpretation Comments Albumin Lvl (test code = 3.2 See_Comment L [A utomated message] 5766-7) The system Exh[employer] generated this result transmitted ref erence range: 3.5 - 5. 2 gm/dL. The refe rence range was not u sed to interpret this result as normal/abnor mal. Lab Interpretation (test Abnormal code = 48604-1) [facility] CenterAlbumin [id number] 10:41:01 Test Item Value Reference Range Interpretation Comments Albumin Lvl (test code = 3.2 See_Comment L [A utomated message] 1750-10) The system Exh[employer] generated this result transmitted ref erence range: 3.5 - 5. 2 gm/dL. The refe rence range was not u sed to interpret this result as normal/abnor mal. Lab Interpretation (test Abnormal code = 29232-7) [facility] CenterMagnesium Lzzyf6872-60-42 10:41:00 Test Item Value Reference Range Interpretation Comments Magnesium (test code = 89065-5) 1.8 mg/dL 1.6-2.6 [facility] CenterMagnesium [id number] 10:41:00 Test Item Value Reference Range Interpretation Comments Magnesium (test code = 90797-2) 1.8 mg/dL 1.6-2.6 [facility] CenterAspartate Aminotransferase 2022-05-13 10:40:59 Test Item Value Reference Range Interpretation Comments AST (test code = 26 U/L See_Comment [Automated message] The 1919-11) system which ge nerated this result transmit elbert reference range : <=40. The reference range was not used to interpr et this result as nataly l/abnormal. [facility] CenterAspartate Aminotransferase 2022-05-13 10:40:59 Test Item Value Reference Range Interpretation Comments AST (test code = 26 U/L See_Comment [Automated message] The 1919-11) system which ge nerated this result transmit elbert reference range : <=40. The reference range was not used to interpr et this result as nataly l/abnormal. [facility] CenterAlkaline Dkucxxhwloh6458-53-99 10:40:58 Test Item Value Reference Range Interpretation Comments Alk Phos (test code = 6768-6) 65 U/L 40-129 [facility] CenterAlkaline Nzectfhqffk9153-43-86 10:40:58 Test Item Value Reference Range Interpretation Comments Alk Phos (test code = 6768-6) 65 U/L 40-129 [facility] CenterCarbon Dioxide Dxawk8144-82-05 10:40:57 Test Item Value Reference Range Interpretation Comments CO2 (test code = 28 See_Comment [Automated message] The 2027-12) system which ge nerated this result transmit elbert reference range : 22 - 29 mEq/L. The refe rence range was not used to interpret this result as normal/abnormal . [facility] CenterCarbon Dioxide Aaukh0430-92-42 10:40:57 Test Item Value Reference Range Interpretation Comments CO2 (test code = 28 See_Comment [Automated message] The 2027-12) system which ge nerated this result transmit elbert reference range : 22 - 29 mEq/L. The refe rence range was not used to interpret this result as normal/abnormal . [facility] CenterAlanine Qpbdbgalyapwtuxk1526-33-95 10:40:56ALT<5<=41 U/LUT [facility]OSPITALUnTexas [facility] AzleAlanine Jhrmrlynaanklnmw7611-86-03 10:40:56ALT<5<=41 U/LUT [facility]OS[facility]ITALUnTexas [facility] .Serum Xvqgxjdfvb5045-67-84 10:40:55 Test Item Value Reference Range Interpretation Comments Creatinine (test code = 2160-0) 0.54 mg/dL 0.67-1.17 L Lab Interpretation (test code = Abnormal 10794-5) [facility].Serum Xhisqiedqy4727-83-35 10:40:55 Test Item Value Reference Range Interpretation Comments Creatinine (test code = 2160-0) 0.54 mg/dL 0.67-1.17 L Lab Interpretation (test code = Abnormal 54284-0) [facility] CenterBUN2023-01-16 10:40:54 Test Item Value Reference Range Interpretation Comments BUN (test code = 3094-0) 6-23 L Lab Interpretation (test code = Abnormal 09755-2) [facility] CenterBUN2023-01-16 10:40:54 Test Item Value Reference Range Interpretation Comments BUN (test code = 3094-0) 6-23 L Lab Interpretation (test code = Abnormal 28800-3) [facility] CenterDifferential2023-01-16 09:57:04 Test Item Value Reference Range Interpretation Comments Neutrophil % (test code = 48.6 % 42.0-66.0 770-8) Lymphocyte % (test code = 34.9 % 24.0-44.0 736-9) Monocyte % (test code = 12.6 % 2.0-7.0 H 5905-5) Eosinophil % (test code = 2.1 % 1.0-4.0 713-8) Basophil % (test code = 0.2 % 0.0-1.0 706-2) IGRE % (test code = 1.6 % 0.0-0.4 H IGRE % c ount 58694-5) includes Metamyelocytes, Myelocytes, and Promyelocytes. Neutrophil Abs (test code 2.07 K/uL 1.70-7.30 = 751-8) Lymphocyte Abs (test code 1.49 K/uL 1.00-4.80 = 731-0) Monocyte Abs (test code = 0.54 K/uL 0.08-0.70 742-7) Eosinophil Abs (test code 0.09 K/uL 0.04-0.40 = 711-2) Basophil Abs (test code = 0.01 K/uL 0.00-0.10 704-7) IG Abs (test code = 0.07 K/uL 0.00-0.04 H 78651-3) Lab Interpretation (test Abnormal code = 33606-2) [facility] LzgurvXglflmvnuuox4417-02-01 09:57:04 Test Item Value Reference Range Interpretation Comments Neutrophil % (test code = 48.6 % 42.0-66.0 770-8) Lymphocyte % (test code = 34.9 % 24.0-44.0 736-9) Monocyte % (test code = 12.6 % 2.0-7.0 H 5905-5) Eosinophil % (test code = 2.1 % 1.0-4.0 713-8) Basophil % (test code = 0.2 % 0.0-1.0 706-2) IGRE % (test code = 1.6 % 0.0-0.4 H IGRE % c ount 14548-6) includes Metamyelocytes, Myelocytes, and Promyelocytes. Neutrophil Abs (test code 2.07 K/uL 1.70-7.30 = 751-8) Lymphocyte Abs (test code 1.49 K/uL 1.00-4.80 = 731-0) Monocyte Abs (test code = 0.54 K/uL 0.08-0.70 742-7) Eosinophil Abs (test code 0.09 K/uL 0.04-0.40 = 711-2) Basophil Abs (test code = 0.01 K/uL 0.00-0.10 704-7) IG Abs (test code = 0.07 K/uL 0.00-0.04 H 76108-8) Lab Interpretation (test Abnormal code = 17421-5) [facility] [place].[id number] 09:56:58 Test Item Value Reference Range Interpretation Comments WBC (test code = 4.3 K/uL 4.0-11.0 6690-2) RBC (test code = 789-8) 2.99 See_Comment L [Au tomated message] The system Exhbit generated this result transmitted ref erence range: 4.50 - 6 .00 M/uL. The refer ence range was not u sed to interpret this result as normal/abnor mal. Hgb (test code = 718-7) 10.3 See_Comment L [Au tomated message] The system Exhbit generated this result transmitted ref erence range: 14.0 - 1 8.0 gm/dL. The refe rence range was not u sed to interpret this result as normal/abnor mal. Hct (test code = 30.2 % 40.0-54.0 L 4544-3) MCV (test code = 787-2) 101 fL 82-98 H MCH (test code = 785-6) 34.4 pg 27.0-31.0 H MCHC (test code = 34.1 See_Comment [Automate d message] 786-4) The system Exhbit generated this result transmitted ref erence range: 31.0 - 3 6.0 gm/dL. The refe rence range was not u sed to interpret this result as normal/abnor mal. RDW-SD (test code = 49.4 fL 35.1-46.3 H 27012-2) RDW-CV (test code = 13.3 % 12.0-15.5 788-0) Platelet count (test 241 K/uL 140-440 code = 777-3) MPV (test code = 9.9 fL 4.0-10.4 80974-2) INRBC (test code = 0.0 % See_Comment The INRBC (instrument 47755-7) NRBC) value ref lects the enumeration of nucleated red b lood cells contained in a 200uL sampleof whole blood analyzed by the instrument. Thi s value maydiffer from the NRBC value repo rted in a manual differential,wh ich is based on a 100 cell differential. [Automated mess age] The system Exhbit generated this result transmitted ref erence range: <=0.0. T he reference range was not used to int erpret this result as normal/abnormal . Lab Interpretation Abnormal (test code = 86303-7) [facility] [place].TSK9536-47-55 09:56:58 Test Item Value Reference Range Interpretation Comments WBC (test code = 4.3 K/uL 4.0-11.0 6690-2) RBC (test code = 789-8) 2.99 See_Comment L [Au tomated message] The system Exhbit generated this result transmitted ref erence range: 4.50 - 6 .00 M/uL. The refer ence range was not u sed to interpret this result as normal/abnor mal. Hgb (test code = 718-7) 10.3 See_Comment L [Au tomated message] The system Exhbit generated this result transmitted ref erence range: 14.0 - 1 8.0 gm/dL. The refe rence range was not u sed to interpret this result as normal/abnor mal. Hct (test code = 30.2 % 40.0-54.0 L 4544-3) MCV (test code = 787-2) 101 fL 82-98 H MCH (test code = 785-6) 34.4 pg 27.0-31.0 H MCHC (test code = 34.1 See_Comment [Automate d message] 786-4) The system Exhbit generated this result transmitted ref erence range: 31.0 - 3 6.0 gm/dL. The refe rence range was not u sed to interpret this result as normal/abnor mal. RDW-SD (test code = 49.4 fL 35.1-46.3 H 33403-4) RDW-CV (test code = 13.3 % 12.0-15.5 788-0) Platelet count (test 241 K/uL 140-440 code = 777-3) MPV (test code = 9.9 fL 4.0-10.4 88182-8) INRBC (test code = 0.0 % See_Comment The INRBC (instrument 29492-5) NRBC) value ref lects the enumeration of nucleated red b lood cells contained in a 200uL sampleof whole blood analyzed by the instrument. Thi s value maydiffer from the NRBC value repo rted in a manual differential,wh ich is based on a 100 cell differential. [Automated mess age] The system whic h generated this result transmitted ref erence range: <=0.0. T he reference range was not used to int erpret this result as normal/abnormal . Lab Interpretation Abnormal (test code = 24567-9) [facility] CenterCatb[facility] [place] Tip Sdvcuyt4208-27-33 23:25:39 Test Item Value Reference Range Interpretation Comments Final Report (test No growth code = 8488) Path Review (test The results have been code = 8492) reviewed and electronically signed by Pathologist:KAREL PABLO MD #[id number] [facility] CenterCatb[facility] [place] Tip Xmexece3343-09-97 23:25:39 Test Item Value Reference Range Interpretation Comments Final Report (test No growth code = 8488) Path Review (test The results have been code = 8492) reviewed and electronically signed by Pathologist:KAREL PABLO MD #[id number] [facility] CenterCatb[facility] [place] Tip Jlihbac9763-23-37 23:25:39 Test Item Value Reference Range Interpretation Comments Final Report (test No growth code = 8488) Path Review (test The results have been code = 8492) reviewed and electronically signed by Pathologist:KAREL PABLO MD #[id number] [facility] CenterTMP Interpretation Antibody Screen Lihmoyql9522-33-69 16:57:19 Test Item Value Reference Range Interpretation Comments TMP Auto Neg At the present ABSC Interp time, patient (test code = plasma shows no ____SWATI VOSS MD 7535) evidence of RBC - [id number] elbert by: alloantibodies. MD Quentin URENA6Dictated D ate/Time: 05.10.2022 10:5 7 AM [employer] Transcribed Gonzalez e/Time: 05.10.2022 10:5 7 AM CSTElectronical ly Signed By: MD Quentin LEE MA6 on 04.28 10:[address] [facility] CenterTMP Interpretation Antibody Screen Kwxnvwqy2604-45-00 16:57:19 Test Item Value Reference Range Interpretation Comments TMP Auto Neg At the present ABSC Interp time, patient (test code = plasma shows no ____SWATI VOSS MD 7535) evidence of RBC - [id number] elbert by: alloantibodijona. MD Quentin URENA6Dictated D ate/Time: 05.10.2022 10:5 7 AM [employer] Transcribed Gonzalez e/Time: 05.10.2022 10:5 7 AM CSTElectronical ly Signed By: MD Quentin LEE MA on 04.28 10:[address] [facility] CenterTMP Interpretation Antibody Screen Wjafrzqb8292-83-87 16:57:19 Test Item Value Reference Range Interpretation Comments TMP Auto Neg At the present ABSC Interp time, patient (test code = plasma shows no ____SWATI VOSS MD 7535) evidence of RBC - 11628Tgmff elbert by: alloantibodies. SWATI NAQVI MD - [id number] D ate/Time: 05.10.2022 10:5 7 AM [employer] Transcribed Gonzalez e/Time: 05.10.2022 10:5 7 AM CSTElectronical ly Signed [place]: [place] [id number] on 04.28 10:[address] [facility] CenterAntibody Pwgccl6790-97-64 15:20:59 Test Item Value Reference Range Interpretation Comments ABSC. (test code = 890-4) Negative ABSC [facility] CenterAntibody Ivlvhk6590-40-40 15:20:59 Test Item Value Reference Range Interpretation Comments ABSC. (test code = 890-4) Negative ABSC [facility] CenterAntibody Vpssxd4187-59-88 15:20:59 Test Item Value Reference Range Interpretation Comments ABSC. (test code = 890-4) Negative ABSC [facility] CenterABORh2023-01-13 15:20:58 Test Item Value Reference Range Interpretation Comments ABORh. (test code = 882-1) A POS [facility] CenterABORh2023-01-13 15:20:58 Test Item Value Reference Range Interpretation Comments ABORh. (test code = 882-1) A POS [facility] CenterABORh2023-01-13 15:20:58 Test Item Value Reference Range Interpretation Comments ABORh. (test code = 882-1) A POS [facility] CenterClot Expiration [id number] 15:20:00 Test Item Value Reference Range Interpretation Comments T & S Expiration (test code = 05/13/2022 5318) [facility] CenterClot Expiration [id number] 15:20:00 Test Item Value Reference Range Interpretation Comments T & S Expiration (test code = 05/13/2022 5318) [facility] CenterClot Expiration Fuye4807-04-02 15:20:00 Test Item Value Reference Range Interpretation Comments T & S Expiration (test code = 05/13/2022 5318) [facility] CenterGlucose, Enltqi4444-75-42 12:49:19 Test Item Value Reference Range Interpretation Comments Glucose Random (test 103 mg/dL 70-199 Effecti ve 11/22/15, the code = 2345-7) glucose refer ence intervals have been updated based o n [place] [employer] aroldo delines (Standards of M edical Care in Diabete s 2016. Diabetes Care 2 016; 39: S13-S22).Fastin g blood glucose:Normal: 70-99 mg/dLImpaired f asting glucose (increa sed risk for diabetes or pre-diabetes): 100-125 mg/dLDiabetes m ellitus: >/=126 mg/dL Ra ndom blood glucose:N ormal: 70-199 mg/dLNot e: Random glucose >100 mg /dL is associated with increased risk for diabetes [facility] CenterPhosphorus Keljk6392-45-64 12:49:18 Test Item Value Reference Range Interpretation Comments Phosphorus (test code = 2777-1) 3.1 mg/dL 2.5-4.5 [facility] CenterCalcium Rosaz4920-43-55 12:49:17 Test Item Value Reference Range Interpretation Comments Calcium Lvl (test code = 63707-9) 8.7 mg/dL 8.4-10.2 [facility] CenterAlbumin Wajcp3899-15-27 12:49:16 Test Item Value Reference Range Interpretation Comments Albumin Lvl (test code = 3.2 See_Comment L [A utomated message] 1750-10) The system [employer] generated this result transmitted ref erence range: 3.5 - 5. 2 gm/dL. The refe rence range was not u sed to interpret this result as normal/abnor mal. Lab Interpretation (test Abnormal code = 89047-5) [facility] CenterAspartate Aminotransferase 2022-05-10 12:49:15 Test Item Value Reference Range Interpretation Comments AST (test code = 26 U/L See_Comment [Automated message] The 1919-11) system which ge nerated this result transmit elbert reference range : <=40. The reference range was not used to interpr et this result as nataly l/abnormal. [facility] CenterCarbon Dioxide [id number] 12:49:14 Test Item Value Reference Range Interpretation Comments CO2 (test code = 27 See_Comment [Automated message] The 2027-12) system which ge nerated this result transmit elbert reference range : 22 - 29 mEq/L. The refe rence range was not used to interpret this result as normal/abnormal . [facility] CenterFractionated Geolfnsvu1125-59-06 12:49:13Bili Total<0.3<=1.2 mg/dLUT [facility] M[facility] CREEKUnTexas [facility] AzleGlomerular Filtration [id number] 12:49:12 Test Item Value Reference Range Interpretation Comments eGFR (test code = 110 See_Comment The eGFRcr is calculated with 02830) the 2020 CKD-EP I creatinine equation using creatinine, patient's age, and sex for adults 18 years of age and older. Other fa ctors, especially musc le mass, may affect accuracy and need to be considered.A ccording to the Kidney Dise ase: Improving Global Outcomes (KDIGO) CKD Work Group 2012 Clinical Practice Guidel ine, chronic kidney disease (CKD) is defined as the abnormalities of kidney struc ture or function, prese nt for more than 3 months, with implications fo r health. CKD should be class ified by cause, GFR cosme gory, and albuminuria cat egory. KDIGO guidelines prov florentin the following GFR c ategoriesStage Description GFR mL/min/1.73 m2G1* Normal or high >= 90G2* Mildly decrease d 60-89G3a Mildly to moder ately decreased 45-59 G3b Moderately to severely dec reased 30-44G4 Severely decrea sed 15-29G5 Kidney failure <15*In the absence of evid ence of kidney damage, neither G1 nor G2 fulfill criteri a for CKD. [Automated mess age] The system which ge nerated this result transmit elbert reference range: >=60 mL/ min/1.73 sq. m. The referenc e range was not used to int erpret this result as nataly l/abnormal. [facility] CenterAnion [id number] 12:49:11 Test Item Value Reference Range Interpretation Comments Anion Gap (test code 9 See_Comment [Autom ated message] The = 04098-2) system which ge nerated this result transmit elbert reference range : 4 - 14 mEq/L. The refe rence range was not used to interpret this result as normal/abnormal . [facility] CenterUric [id number] 12:49:10 Test Item Value Reference Range Interpretation Comments Uric Acid (test code = 3084-1) 2.9 mg/dL 3.4-7.0 L Lab Interpretation (test code = Abnormal 19177-6) [facility] CenterChloride [id number] 12:49:09 Test Item Value Reference Range Interpretation Comments Chloride (test code = 104 See_Comment [Auto mated message] The ) system which ge nerated this result tra nsmitted reference range : 98 - 107 mEq/L. The refe rence range was not u sed to interpret this result as normal/abnormal . [facility] CenterMagnesium [id number] 12:49:08 Test Item Value Reference Range Interpretation Comments Magnesium (test code = 22204-7) 1.7 mg/dL 1.6-2.6 [facility] CenterPotassium2023-01-13 12:49:07 Test Item Value Reference Range Interpretation Comments Potassium Lvl (test 3.6 See_Comment [Automa elbert message] The code = 2823-3) system which generated this result tra nsmitted reference range : 3.5 - 5.1 mEq/L. The reference range was not u sed to interpret this result as normal/abnormal . [facility] CenterAlkaline [id number] 12:49:06 Test Item Value Reference Range Interpretation Comments Alk Phos (test code = 6768-6) 66 U/L 40-129 [facility] [id number] 12:49:05 Test Item Value Reference Range Interpretation Comments Sodium Lvl (test code 140 See_Comment [Auto mated message] The = 0481-2) system which ge nerated this result tra nsmitted reference range : 136 - 145 mEq/L. The refe rence range was not used to interpret this result as normal/abnormal . [facility] CenterAlanine Oemovrzitokvcwge7488-25-84 12:49:04 Test Item Value Reference Range Interpretation Comments ALT (test code = 5 U/L See_Comment [Automated message] The 6) system which ge nerated this result transmit elbert reference range : <=41. The reference range was not used to interpr et this result as nataly l/abnormal. [facility].Serum [id number] 12:49:03 Test Item Value Reference Range Interpretation Comments Creatinine (test code = 2160-0) 0.52 mg/dL 0.67-1.17 L Lab Interpretation (test code = Abnormal 80252-0) [facility] CenterBUN[facility] 12:49:02 Test Item Value Reference Range Interpretation Comments BUN (test code = 3094-0) 5 mg/dL 6-23 L Lab Interpretation (test code = Abnormal 60248-0) [facility]LDH[facility] 12:48:14 Test Item Value Reference Range Interpretation Comments LDH (test code = 216 U/L 135-225 Results gre ater than 1651 11459-7) U/L may not be reliable due to matrix effec t with extended diluti on as it exceeds the man ufacturer's recommended carbajal it. Caution should be exerc ised when interpreting tovar ch values and done in con junction with clinical c ontext. [facility] CenterDifferential2023-01-13 12:26:11 Test Item Value Reference Range Interpretation Comments Neutrophil % (test code = 50.8 % 42.0-66.0 770-8) Lymphocyte % (test code = 30.3 % 24.0-44.0 736-9) Monocyte % (test code = 15.9 % 2.0-7.0 H 5905-5) Eosinophil % (test code = 1.8 % 1.0-4.0 713-8) Basophil % (test code = 0.5 % 0.0-1.0 706-2) IGRE % (test code = 0.7 % 0.0-0.4 H IGRE % c ount 30966-4) includes Metamyelocytes, Myelocytes, and Promyelocytes. Neutrophil Abs (test code 2.23 K/uL 1.70-7.30 = 751-8) Lymphocyte Abs (test code 1.33 K/uL 1.00-4.80 = 731-0) Monocyte Abs (test code = 0.70 K/uL 0.08-0.70 742-7) Eosinophil Abs (test code 0.08 K/uL 0.04-0.40 = 711-2) Basophil Abs (test code = 0.02 K/uL 0.00-0.10 704-7) IG Abs (test code = 0.03 K/uL 0.00-0.04 75779-6) Lab Interpretation (test Abnormal code = 50686-8) [facility].NCB8948-69-08 12:26:05 Test Item Value Reference Range Interpretation Comments WBC (test code = 4.4 K/uL 4.0-11.0 6690-2) RBC (test code = 789-8) 3.13 See_Comment L [Au tomated message] The system Exhbit generated this result transmitted ref erence range: 4.50 - 6 .00 M/uL. The refer ence range was not u sed to interpret this result as normal/abnor mal. Hgb (test code = 718-7) 10.7 See_Comment L [Au tomated message] The system Exhbit generated this result transmitted ref erence range: 14.0 - 1 8.0 gm/dL. The refe rence range was not u sed to interpret this result as normal/abnor mal. Hct (test code = 31.3 % 40.0-54.0 L 4544-3) MCV (test code = 787-2) 100 fL 82-98 H MCH (test code = 785-6) 34.2 pg 27.0-31.0 H MCHC (test code = 34.2 See_Comment [Automate d message] 786-4) The system Exhbit generated this result transmitted ref erence range: 31.0 - 3 6.0 gm/dL. The refe rence range was not u sed to interpret this result as normal/abnor mal. RDW-SD (test code = 49.9 fL 35.1-46.3 H 40736-5) RDW-CV (test code = 13.6 % 12.0-15.5 788-0) Platelet count (test 181 K/uL 140-440 code = 777-3) MPV (test code = 10.0 fL 4.0-10.4 32621-3) INRBC (test code = 0.0 % See_Comment The INRBC (instrument 12184-9) NRBC) value ref lects the enumeration of nucleated red b lood cells contained in a 200uL sampleof whole blood analyzed by the instrument. Thi s value maydiffer from the NRBC value repo rted in a manual differential,wh ich is based on a 100 cell differential. [Automated mess age] The system Exhbit generated this result transmitted ref erence range: <=0.0. T he reference range was not used to int erpret this result as normal/abnormal . Lab Interpretation Abnormal (test code = 88110-3) [facility] CenterVancomycin Rpkcaz9553-91-69 08:42:13 Test Item Value Reference Range Interpretation Comments Vanco Trough 9.0 See_Comment Toxic Trough Le angela: >20 (test code = mcg/mL [Automat ed message] 4092-3) The system Exhbit generated this result tra nsmitted reference range : 5.0 - 20.0 mcg/mL. Th e reference range was not u sed to interpret this result as normal/abnormal . Vanco Tr Dose see note Level, date, a nd time of Time (test code = previous d [place]se is [place] 14193-6) availablefor is sample. The date report ed is the samplecollectio n date. Vanco Tr Dose 05/09/2022 Level, date, a nd time of Date (test code = previous d ose is not 26357-8) availablefor is sample. The date report ed is the samplecollectio n date. [facility] CenterVancomycin Qapwrh5869-17-64 08:42:13 Test Item Value Reference Range Interpretation Comments Vanco Trough 9.0 See_Comment Toxic Trough Le angela: >20 (test code = mcg/mL [Automat ed message] 4092-3) The system Exhbit generated this result tra nsmitted reference range : 5.0 - 20.0 mcg/mL. Th e reference range was not u sed to interpret this result as normal/abnormal . Vanco Tr Dose see note Level, date, a nd time of Time (test code = previous d ose is not 95074-9) availablefor is sample. The date report ed is the samplecollectio n date. Vanco Tr Dose 05/09/2022 Level, date, a nd time of Date (test code = previous d ose is not 44646-8) availablefor is sample. The date report ed is the samplecollectio n date. [facility] CenterVancomycin Dooucv6900-34-10 08:42:13 Test Item Value Reference Range Interpretation Comments Vanco Trough 9.0 See_Comment Toxic Trough Le angela: >20 (test code = mcg/mL [Automat ed message] 4092-3) The system Exhbit generated this result tra nsmitted reference range : 5.0 - 20.0 mcg/mL. Th e reference range was not u sed to interpret this result as normal/abnormal . Vanco Tr Dose see note Level, date, a nd time of Time (test code = [place] 24165-7) availablefor is sample. The date report ed is the samplecollectio n date. Vanco Tr Dose 05/09/2022 Level, date, a nd time of Date (test code = previous d ose is not 90792-0) availablefor is sample. The date report ed is the samplecollectio n date. [facility] CenterVancomycin Bdiuqf4390-98-72 08:42:13 Test Item Value Reference Range Interpretation Comments Vanco Trough 9.0 See_Comment Toxic Trough Le angela: >20 (test code = mcg/mL [Automat ed message] 4092-3) The system Exhbit generated this result tra nsmitted reference range : 5.0 - 20.0 mcg/mL. Th e reference range was not u sed to interpret this result as normal/abnormal . Vanco Tr Dose see note Level, date, a nd time of Time (test code = [place] 28198-5) availablefor is sample. The date report ed is the samplecollectio n date. Vanco Tr Dose 05/09/2022 Level, date, a nd time of Date (test code = [place]se [place] 99846-0) availablefor is sample. The date report ed is the samplecollectio n date. [facility] CenterVan[facility] Ytkimn9495-27-16 08:42:13 Test Item Value Reference Range Interpretation Comments Vanco Trough 9.0 See_Comment Toxic Trough Le angela: >20 (test code = mcg/mL [Automat ed message] 4092-3) The system Exhbit generated this result tra nsmitted reference range : 5.0 - 20.0 mcg/mL. Th e reference range was not u sed to interpret this result as normal/abnormal . Vanco Tr Dose see note Level, date, a nd time of Time (test code = previous d [place]se [place] 89689-7) availablefor is sample. The date report ed is the samplecollectio n date. Vanco Tr Dose 05/09/2022 Level, date, a nd time of Date (test code = [place] 25643-9) availablefor is sample. The date report ed is the samplecollectio n date. [facility] CenterVancomycin Ugwoly7279-01-66 08:42:13 Test Item Value Reference Range Interpretation Comments Vanco Trough 9.0 See_Comment Toxic Trough Le angela: >20 (test code = mcg/mL [Automat ed message] 4092-3) The system Exhbit generated this result tra nsmitted reference range : 5.0 - 20.0 mcg/mL. Th e reference range was not u sed to interpret this result as normal/abnormal . Vanco Tr Dose see note Level, date, a nd time of Time (test code = [place]se [place] 58221-0) availablefor is sample. The date report ed is the samplecollectio n date. Vanco Tr Dose 05/09/2022 Level, date, a nd time of Date (test code = previous d ose is not 14269-3) availablefor is sample. The date report ed is the samplecollectio n date. [facility] CenterVan[facility] Alujdg2301-62-41 08:42:13 Test Item Value Reference Range Interpretation Comments Vanco Trough 9.0 See_Comment Toxic Trough Le angela: >20 (test code = mcg/mL [Automat ed message] 4092-3) The system Exhbit generated this result tra nsmitted reference range : 5.0 - 20.0 mcg/mL. Th e reference range was not u sed to interpret this result as normal/abnormal . Vanco Tr Dose see note Level, date, a nd time of Time (test code = previous d [place]se is not 23962-0) availablefor th is sample. The date report ed is the samplecollectio n date. Vanco Tr Dose 05/09/2022 Level, date, a nd time of Date (test code = previous d ose is not 22017-9) availablefor th is sample. The date report ed is the samplecollectio n date. [facility] CenterVan[facility] Htehfg5114-71-49 08:42:13 Test Item Value Reference Range Interpretation Comments Vanco Trough 9.0 See_Comment Toxic Trough Le angela: >20 (test code = mcg/mL [Automat ed message] 4092-3) The system Exhbit generated this result tra nsmitted reference range : 5.0 - 20.0 mcg/mL. Th e reference range was not u sed to interpret this result as normal/abnormal . Vanco Tr Dose see note Level, date, a nd time of Time (test code = previous d ose is not 02953-3) availablefor th is sample. The date report ed is the samplecollectio n date. Vanco Tr Dose 05/09/2022 Level, date, a nd time of Date (test code = [place]se is not 59415-0) availablefor is sample. The date report ed is the samplecollectio n date. [facility] CenterUrine Prjjvfd4955-85-05 21:00:58 Test Item Value Reference Range Interpretation Comments Final Report (test code <10,000 cfu/ml Normal A = 8488) site jon present.Generally of low significance.Correlate with clinical data and culture history. Path Review - Urine The results have been A (test code = 8483) reviewed and electronically signed by Pathologist:KAREL PABLO MD #[id number] Lab Interpretation Abnormal (test code = 35738-5) [facility] CenterUrine Bigmbci2144-06-64 21:00:58 Test Item Value Reference Range Interpretation Comments Final Report (test code <10,000 cfu/ml Normal A = 8488) site jon present.Generally of low significance.Correlate with clinical data and culture history. Path Review - Urine The results have been A (test code = 8483) reviewed and electronically signed by Pathologist:KAREL PABLO MD #[id number] Lab Interpretation Abnormal (test code = 84870-0) [facility] Center[facility] Ponespi1165-69-54 21:00:58 Test Item Value Reference Range Interpretation Comments Final Report (test code <10,000 cfu/ml Normal A = 8488) site jon present.Generally of low significance.Correlate with clinical data and culture history. Path Review - Urine The results have been A (test code = 8483) reviewed and electronically signed by Pathologist:KAREL PABLO MD #[id number] Lab Interpretation Abnormal (test code = 73424-5) [facility] CenterU[facility] [id number] 21:00:58 Test Item Value Reference Range Interpretation Comments Final Report (test code <10,000 cfu/ml Normal A = 8488) site jon present.Generally of low significance.Correlate with clinical data and culture history. Path Review - Urine The results have been A (test code = 8483) reviewed and electronically signed by Pathologist:KAREL PABLO MD #[id number] Lab Interpretation Abnormal (test code = 81089-7) [facility] CenterUrinalysis Microscopic Exam 2022-05-06 11:51:26 Test Item Value Reference Range Interpretation Comments UA WBC (test code = 20 See_Comment H Some rep orting 66579-2) parameters with in the Urinalysis test have changed due to the implementation of new instrumentation in the [facility], [facility] greater sensiti vity of measurement. Urinalysis resu lts reported by the [facility] using existing instrumentation , as well as Urinaly sis testing perform ed manually or by backup methodology at the [facility] crystal l remain relative ly unchanged. New reporting justino eters and units will not be reported for al l campuses. [Auto mated message] The sy stem which generated this result transmit elbert reference range : 0 - 2 /HPF. The refer ence range was not u sed to interpret this result as normal/abnor mal. UA RBC (test code = NOT SEEN See_Comment [Automa elbert message] 52882-3) The system Exhbit generated this result transmitted ref erence range: 0 - 2 /H PF. The reference range was not used to int erpret this result as normal/abnormal . UA Mucous (test code = NOT SEEN Not Seen-Trace 33746-9) /HPF UA Bacteria (test code NOT SEEN NOT SEEN /HPF = 23145-2) UA Squam Epi (test OCC None-Occasional code = 63914-9) /HPF Lab Interpretation Abnormal (test code = 48778-7) [facility] Center[facility] Microscopic Exam 2022-05-06 11:51:26 Test Item Value Reference Range Interpretation Comments UA WBC (test code = 20 See_Comment H Some rep orting 85068-5) parameters with in the Urinalysis test have changed due to the implementation of new instrumentation in the [facility], [facility] low[facility] greater sensiti vity of measurement. Urinalysis resu lts reported by the [facility] enters using existing instrumentation , as well as Urinaly sis testing perform ed manually or by backup methodology at the [facility] crystal l remain relative ly unchanged. New reporting justino eters and units will not be reported for al l campuses. [Auto mated message] The sy stem which generated this result transmit elbert reference range : 0 - 2 /HPF. The refer ence range was not u sed to interpret this result as normal/abnor mal. UA RBC (test code = NOT SEEN See_Comment [Automa elbert message] 51117-9) The system Exhbit generated this result transmitted ref erence range: 0 - 2 /H PF. The reference range was not used to int erpret this result as normal/abnormal . UA Mucous (test code = NOT SEEN Not Seen-Trace 17876-3) /HPF UA Bacteria (test code NOT SEEN NOT SEEN /HPF = 66364-7) UA Squam Epi (test OCC None-Occasional code = 98072-1) /HPF Lab Interpretation Abnormal (test code = 55485-2) [facility] Microscopic Exam 2022-05-06 11:51:26 Test Item Value Reference Range Interpretation Comments UA WBC (test code = 20 See_Comment H Some rep orting 31074-8) parameters with in the Urinalysis test have changed due to the implementation of new instrumentation in the [facility] [place], [facility] lowing greater sensiti vity of measurement. Urinalysis resu lts reported by the [facility] using existing instrumentation , as well as Urinaly sis testing perform ed manually or by backup methodology at the [facility] crystal l remain relative ly unchanged. New reporting justino eters and units will not be reported for al l campuses. [Auto mated message] The sy stem which generated this result transmit elbert reference range : 0 - 2 /HPF. The refer ence range was not u sed to interpret this result as normal/abnor mal. UA RBC (test code = NOT SEEN See_Comment [Automa elbert message] 74436-1) The system Exhbit generated this result transmitted ref erence range: 0 - 2 /H PF. The reference range was not used to int erpret this result as normal/abnormal . UA Mucous (test code = NOT SEEN Not Seen-Trace 98834-0) /HPF UA Bacteria (test code NOT SEEN NOT SEEN /HPF = 99090-2) UA Squam Epi (test OCC None-Occasional code = 10000-2) /HPF Lab Interpretation Abnormal (test code = 07312-1) [facility] CenterUr[facility] w/Microscopic if Ruvxecnza1719-94-21 11:44:03 Test Item Value Reference Range Interpretation Comments UA Color (test code = 62063-8) Yellow Straw-Yellow UA Appear (test code = 41396-0) Hazy Clear A UA Glucose (test code = 5792-7) NEG NEG mg/dL UA Bili (test code = 5770-3) NEG NEG UA Ketones (test code = 5797-6) NEG NEG mg/dL UA Spec Grav (test code = 5810-7) 1.010 1.003-1.035 UA Blood (test code = 5794-3) NEG NEG UA pH (test code = 5803-2) 6.0 5.0-9.0 UA Protein (test code = 5804-0) 50 mg/dL NEG A UA Urobilinogen (test code = 5818-0) NEG NEG UA Nitrite (test code = 5802-4) NEG NEG UA Leuk Est (test code = 5799-2) Trace NEG A Lab Interpretation (test code = Abnormal 97531-6) [facility] w/Microscopic if Eqjhvonjp7163-91-08 11:44:03 Test Item Value Reference Range Interpretation Comments UA Color (test code = 78017-1) Yellow Straw-Yellow UA Appear (test code = 00908-8) Hazy Clear A UA Glucose (test code = 5792-7) NEG NEG mg/dL UA Bili (test code = 5770-3) NEG NEG UA Ketones (test code = 5797-6) NEG NEG mg/dL UA Spec Grav (test code = 5810-7) 1.010 1.003-1.035 UA Blood (test code = 5794-3) NEG NEG UA pH (test code = 5803-2) 6.0 5.0-9.0 UA Protein (test code = 5804-0) 50 mg/dL NEG A UA Urobilinogen (test code = 5818-0) NEG NEG UA Nitrite (test code = 5802-4) NEG NEG UA Leuk Est (test code = 5799-2) Trace NEG A Lab Interpretation (test code = Abnormal 82210-0) [facility] w/Microscopic if Bsqyeyvzc2731-15-90 11:44:03 Test Item Value Reference Range Interpretation Comments UA Color (test code = 76044-8) Yellow Straw-Yellow UA Appear (test code = 73251-7) Hazy Clear A UA Glucose (test code = 5792-7) NEG NEG mg/dL UA Bili (test code = 5770-3) NEG NEG UA Ketones (test code = 5797-6) NEG NEG mg/dL UA Spec Grav (test code = 5810-7) 1.010 1.003-1.035 UA Blood (test code = 5794-3) NEG NEG UA pH (test code = 5803-2) 6.0 5.0-9.0 UA Protein (test code = 5804-0) 50 mg/dL NEG A UA Urobilinogen (test code = 5818-0) NEG NEG UA Nitrite (test code = 5802-4) NEG NEG UA Leuk Est (test code = 5799-2) Trace NEG A Lab Interpretation (test code = Abnormal 03289-2) [facility] CenterRespiratory Multiplex PCR Panel, Nasopharyngeal Qrum2340-51-81 10:09:40 Test Item Value Reference Range Interpretation Comments RMP Source (test code = Not Applicable 8653) Adenovirus (test code = Not Detected Not Detected 86439-5) Coronavirus 229E (test Not Detected Not Detected code = 61517-3) Coronavirus HKU1 (test Not Detected Not Detected code = 59595-8) Coronavirus NL63 (test Not Detected Not Detected code = 24636-6) Coronavirus OC43 (test Not Detected Not Detected code = 17293-9) COVID19 (SARS-CoV-2) Not Detected Not Detected (test code = 84671-7) Human Metapneumovirus Not Detected Not Detected (test code = 86559-0) Human Not Detected Not Detected Rhinovirus/Enterovirus (test code = 47465-6) Influenza A (test code Not Detected Not Detected = 81084-9) Influenza A H1 (test Not Detected Not Detected code = 30988-3) Influenza A H1 2009 Not Detected Not Detected (test code = 73636-9) Influenza A H3 (test Not Detected Not Detected code = 41005-7) Influenza B (test code Not Detected Not Detected = 06502-5) Parainfluenza 1 (test Not Detected Not Detected code = 07772-7) Parainfluenza 2 (test Not Detected Not Detected code = 28817-2) Parainfluenza 3 (test Not Detected Not Detected code = 26790-6) Parainfluenza 4 (test Not Detected Not Detected code = 45172-2) Respiratory Syncytial Not Detected Not Detected Virus (test code = 45947-0) Bordetella Not Detected Not Detected Parapertussis (test code = 50912-3) Bordetella pertussis Not Detected Not Detected (test code = 98981-1) Chlamydiophila Not Detected Not Detected pneumoniae (test code = 96961-0) Mycoplasma pneumoniae Not Detected Not Detected (test code = 56328-3) JOAQUIN (test code = JOAQUIN) Has patient had a positive for COVID-19 result in the last 3 months?->No The BioFire RP2.1 is a real-time, nested multiplexed polymerase chain reaction test designed to simultaneously identify nucleic acids from 22 different viruses and bacteria associated with respiratory tract infection, including SARS-CoV-2, from a single nasopharyngeal swab ([employer]) specimen obtained from individuals suspected of respiratory tract infections, including COVID-19. Results must be interpreted within the context of all relevant clinical and laboratory findings and should not form the sole basis for a diagnosis or treatment decision. Positive results do not rule out coninfection with other organisms. Negative results in the setting of a respiratory illness may be due to infection with pathogens that are not detected by this panel, or a lower respiratory tract infection that may not be detected by an [employer] specimen. Internal controls are used to monitor all stages of the test process and assess for possible amplification inhibitors. If inhibition is detected, testing is repeated and if inhibition is confirmed the specimen is resulted as "Invalid". When an "Invalid" result occurs, it is recommended to wait 3 days before submitting a new specimen for testing if clinically indicated. This assay has been approved by the FDA for use in laboratories that have been CLIA-certified to perform moderate-complexity and high-complexity tests. The [facility] at [facility], CLIA Accreditation #[id number] and CAP Accreditation #[id number], verified the performance characteristics of this assay. [facility] performs the assay using the [employer] System. [facility] Center[facility] PCR Panel, Nasopharyngeal [id number] 10:09:40 Test Item Value Reference Range Interpretation Comments RMP Source (test code = Not Applicable 8653) Adenovirus (test code = Not Detected Not Detected 70102-0) Coronavirus 229E (test Not Detected Not Detected code = 38923-2) Coronavirus HKU1 (test Not Detected Not Detected code = 75036-1) Coronavirus NL63 (test Not Detected Not Detected code = 90934-6) Coronavirus OC43 (test Not Detected Not Detected code = 37454-9) COVID19 (SARS-CoV-2) Not Detected Not Detected (test code = 10680-3) Human Metapneumovirus Not Detected Not Detected (test code = 92972-2) Human Not Detected Not Detected Rhinovirus/Enterovirus (test code = 55867-9) Influenza A (test code Not Detected Not Detected = 47972-2) Influenza A H1 (test Not Detected Not Detected code = 04040-7) Influenza A H1 2009 Not Detected Not Detected (test code = 54623-7) Influenza A H3 (test Not Detected Not Detected code = 40253-1) Influenza B (test code Not Detected Not Detected = 84974-9) Parainfluenza 1 (test Not Detected Not Detected code = 50104-3) Parainfluenza 2 (test Not Detected Not Detected code = 83521-2) Parainfluenza 3 (test Not Detected Not Detected code = 10456-9) Parainfluenza 4 (test Not Detected Not Detected code = 18289-5) Respiratory Syncytial Not Detected Not Detected Virus (test code = 86661-0) Bordetella Not Detected Not Detected Parapertussis (test code = 64620-0) Bordetella pertussis Not Detected Not Detected (test code = 70343-0) Chlamydiophila Not Detected Not Detected pneumoniae (test code = 00695-4) Mycoplasma pneumoniae Not Detected Not Detected (test code = 20628-5) JOAQUIN (test code = JOAQUIN) Has patient had a positive for COVID-19 result in the last 3 months?->No The [employer]Fire RP2.1 is a real-time, nested multiplexed polymerase chain reaction test designed to simultaneously identify nucleic acids from 22 different viruses and bacteria associated with respiratory tract infection, including SARS-CoV-2, from a single nasopharyngeal swab (SHE[employer]PER[employer]) specimen obtained from individuals suspected of respiratory tract infections, including COVID-19. Results must be interpreted within the context of all relevant clinical and laboratory findings and should not form the sole basis for a diagnosis or treatment decision. Positive results do not rule out coninfection with other organisms. Negative results in the setting of a respiratory illness may be due to infection with pathogens that are not detected by this panel, or a lower respiratory tract infection that may not be detected by an [employer] specimen. Internal controls are used to monitor all stages of the test process and assess for possible amplification inhibitors. If inhibition is detected, testing is repeated and if inhibition is confirmed the specimen is resulted as "Invalid". When an "Invalid" result occurs, it is recommended to wait 3 days before submitting a new specimen for testing if clinically indicated. This assay has been approved by the FDA for use in laboratories that have been CLIA-certified to perform moderate-complexity and high-complexity tests. The [facility] at [facility], CLIA Accreditation #[id number] and CAP Accreditation #[id number], verified the performance characteristics of this assay. [facility] at [facility] performs the assay using the [employer] System. [facility], Nasopharyngeal [id number] 10:09:40 Test Item Value Reference Range Interpretation Comments RMP Source (test code = Not Applicable 8653) Adenovirus (test code = Not Detected Not Detected 80882-9) Coronavirus 229E (test Not Detected Not Detected code = 95144-8) Coronavirus HKU1 (test Not Detected Not Detected code = 34504-9) Coronavirus NL63 (test Not Detected Not Detected code = 57250-2) Coronavirus OC43 (test Not Detected Not Detected code = 29911-2) COVID19 (SARS-CoV-2) Not Detected Not Detected (test code = 23647-5) Human Metapneumovirus Not Detected Not Detected (test code = 35885-7) Human Not Detected Not Detected Rhinovirus/Enterovirus (test code = 67834-0) Influenza A (test code Not Detected Not Detected = 23041-8) Influenza A H1 (test Not Detected Not Detected code = 93493-2) Influenza A H1 2009 Not Detected Not Detected (test code = 44144-6) Influenza A H3 (test Not Detected Not Detected code = 53098-4) Influenza B (test code Not Detected Not Detected = 44837-3) Parainfluenza 1 (test Not Detected Not Detected code = 65229-6) Parainfluenza 2 (test Not Detected Not Detected code = 88326-0) Parainfluenza 3 (test Not Detected Not Detected code = 74160-2) Parainfluenza 4 (test Not Detected Not Detected code = 92294-9) Respiratory Syncytial Not Detected Not Detected Virus (test code = 56994-4) Bordetella Not Detected Not Detected Parapertussis (test code = 98763-1) Bordetella pertussis Not Detected Not Detected (test code = 68477-7) Chlamydiophila Not Detected Not Detected pneumoniae (test code = 76910-8) Mycoplasma pneumoniae Not Detected Not Detected (test code = 78150-9) JOAQUIN (test code = JOAQUIN) Has patient had a positive for COVID-19 result in the last 3 months?->No The [employer] RP2.1 is a real-time, nested multiplexed polymerase chain reaction test designed to simultaneously identify nucleic acids from 22 different viruses and bacteria associated with respiratory tract infection, including SARS-CoV-2, from a single nasopharyngeal swab (SHEAR [employer]PER[employer] HELPER) specimen obtained from individuals suspected of respiratory tract infections, including COVID-19. Results must be interpreted within the context of all relevant clinical and laboratory findings and should not form the sole basis for a diagnosis or treatment decision. Positive results do not rule out coninfection with other organisms. Negative results in the setting of a respiratory illness may be due to infection with pathogens that are not detected by this panel, or a lower respiratory tract infection that may not be detected by an SHEAR [employer] HELPER specimen. Internal controls are used to monitor all stages of the test process and assess for possible amplification inhibitors. If inhibition is detected, testing is repeated and if inhibition is confirmed the specimen is resulted as "Invalid". When an "Invalid" result occurs, it is recommended to wait 3 days before submitting a new specimen for testing if clinically indicated. This assay has been approved by the FDA for use in laboratories that have been CLIA-certified to perform moderate-complexity and high-complexity tests. The [facility] at [facility], CLIA Accreditation #[id number] and CAP Accreditation #[id number], verified the performance characteristics of this assay. [facility] performs the assay using the [employer] System. [facility] ([facility]-reactive protein)2022-05-06 10:01:19 Test Item Value Reference Range Interpretation Comments CRP (test code = 204.87 mg/[place] [address]-9) CRP assay are a s follows: Reference range s when used to assess cardi ac risk: <1.00 mg/L Low cardiovascular risk 1.00-3.00 mg/L Average cardiovascular risk >3.00 mg/L High cardi ovascular risk.Reference ranges when used to assess inflammatory re sponses: Less than or eq ual to 10.00 mg/L. [facility] ([facility]-reactive protein)2022-05-06 10:01:19 Test Item Value Reference Range Interpretation Comments CRP (test code = 204.87 mg/[place] [address]-1) CRP assay are a s follows: Reference range s when used to assess cardi ac risk: <1.00 mg/L Low cardiovascular risk 1.00-3.00 mg/L Average cardiovascular risk >3.00 mg/L High cardi ovascular risk.Reference ranges when used to assess inflammatory re sponses: Less than or eq ual to 10.00 mg/L. [facility] (C-reactive protein)2022-05-06 10:01:19 Test Item Value Reference Range Interpretation Comments CRP (test code = 204.87 mg/[place] [address]-8) CRP assay are a s follows: Reference range s when used to assess cardi ac risk: <1.00 mg/L Low cardiovascular risk 1.00-3.00 mg/L Average cardiovascular risk >3.00 mg/L High cardi ovascular risk.Reference ranges when used to assess inflammatory re sponses: Less than or eq ual to 10.00 mg/L. [facility] CenterTotal [id number] 09:49:48 Test Item Value Reference Range Interpretation Comments Total Protein (test code = 2885-2) 7.4 g/dL 6.4-8.3 [facility]Total [id number] 09:49:48 Test Item Value Reference Range Interpretation Comments Total Protein (test code = 2885-2) 7.4 g/dL 6.4-8.3 [facility] [id number] 09:49:48 Test Item Value Reference Range Interpretation Comments Total Protein (test code = 2885-2) 7.4 g/dL 6.4-8.3 [facility] CenterElectrolyte [id number] 09:49:37 Test Item Value Reference Range Interpretation Comments Sodium Lvl (test code = 132 See_Comment L [Au tomated message] 5261-2) The system Exh[employer] generated this result transmitted ref erence range: 136 - 14 5 mEq/L. The refe rence range was not u sed to interpret this result as normal/abnor mal. Potassium Lvl (test code 3.8 See_Comment [A utomated message] = 5208-3) The system Exh[employer] generated this result transmitted ref erence range: 3.5 - 5. 1 mEq/L. The refe rence range was not u sed to interpret this result as normal/abnor mal. Chloride (test code = 96 See_Comment L [Auto mated message] 7026-0) The system Exh[employer] generated this result transmitted ref erence range: 98 - 107 mEq/L. The refe rence range was not u sed to interpret this result as normal/abnor mal. CO2 (test code = 2027-12) 24 See_Comment [A utomated message] The system Exh[employer] generated this result transmitted ref erence range: 22 - 29 mEq/L. The reference r sam was not used to interpret this result as normal/abnor mal. Anion Gap (test code = 12 See_Comment [Aut omated message] 54158-0) The system Exhbit generated this result transmitted ref erence range: 4 - 14 m Eq/L. The reference r sam was not used to interpret this result as normal/abnor mal. Lab Interpretation (test Abnormal code = 42981-6) [facility] CenterElectro[facility]te [id number] 09:49:37 Test Item Value Reference Range Interpretation Comments Sodium Lvl (test code = 132 See_Comment L [Au tomated message] 2951-2) The system Exh[employer] generated this result transmitted ref erence range: 136 - 14 5 mEq/L. The refe rence range was not u sed to interpret this result as normal/abnor mal. Potassium Lvl (test code 3.8 See_Comment [A utomated message] = 3293-3) The system Exhbit generated this result transmitted ref erence range: 3.5 - 5. 1 mEq/L. The refe rence range was not u sed to interpret this result as normal/abnor mal. Chloride (test code = 96 See_Comment L [Auto mated message] 6684-0) The system Exhbit generated this result transmitted ref erence range: 98 - 107 mEq/L. The refe rence range was not u sed to interpret this result as normal/abnor mal. CO2 (test code = 2027-12) 24 See_Comment [A utomated message] The system Exhbit generated this result transmitted ref erence range: 22 - 29 mEq/L. The reference r sam was not used to interpret this result as normal/abnor mal. Anion Gap (test code = 12 See_Comment [Aut omated message] 29298-2) The system Exh[employer] generated this result transmitted ref erence range: 4 - 14 m Eq/L. The reference r sam was not used to interpret this result as normal/abnor mal. Lab Interpretation (test Abnormal code = 71779-2) [facility] CenterElectro[facility]te [id number] 09:49:37 Test Item Value Reference Range Interpretation Comments Sodium Lvl (test code = 132 See_Comment L [Au tomated message] 4661-2) The system Exh[employer] generated this result transmitted ref erence range: 136 - 14 5 mEq/L. The refe rence range was not u sed to interpret this result as normal/abnor mal. Potassium Lvl (test code 3.8 See_Comment [A utomated message] = 2613-3) The system Exhbit generated this result transmitted ref erence range: 3.5 - 5. 1 mEq/L. The refe rence range was not u sed to interpret this result as normal/abnor mal. Chloride (test code = 96 See_Comment L [Auto mated message] 3484-0) The system Exhbit generated this result transmitted ref erence range: 98 - 107 mEq/L. The refe rence range was not u sed to interpret this result as normal/abnor mal. CO2 (test code = 2027-9) 24 See_Comment [A utomated message] The system Exhbit generated this result transmitted ref erence range: 22 - 29 mEq/L. The reference r sam was not used to interpret this result as normal/abnor mal. Anion Gap (test code = 12 See_Comment [Aut omated message] 13185-0) The system Exh[employer] generated this result transmitted ref erence range: 4 - 14 m Eq/L. The reference r sam was not used to interpret this result as normal/abnor mal. Lab Interpretation (test Abnormal code = 06321-9) [facility] CenterGlucose [id number] 09:49:36 Test Item Value Reference Range Interpretation Comments Glucose Level (test code 105 mg/dL 70-99 H Eff ective 11/22/15, = 2345-7) the glucose reference inter vals have been updat ed based on [place] Diabetes [employer] ation guidelines (Standards of Medical Care in Diabetes 2016. Diabetes Care 2 016; 39: S13-S22).Fa sting blood glucose:Normal: 70-99 mg/dLImpa ired fasting glucose (increased risk for diabetes or pre-diabetes): 100-125 mg/dLDiabetes mellitus: >/=12 6 mg/dL Random bl ood glucose:Normal: 70-199 mg/dLNot e: Random glucose >100 mg/dL is associ ated with increased risk for diabetes Lab Interpretation (test Abnormal code = 00342-8) [facility] CenterGl[facility] [id number] 09:49:36 Test Item Value Reference Range Interpretation Comments Glucose Level (test code 105 mg/dL 70-99 H Eff ective 11/22/15, = 2345-7) the glucose reference inter vals have been updat ed based on [place] Diabetes [employer] ation guidelines (Standards of Medical Care in Diabetes 2016. Diabetes Care 2 016; 39: S13-S22).Fa sting blood glucose:Normal: 70-99 mg/dLImpa ired fasting glucose (increased risk for diabetes or pre-diabetes): 100-125 mg/dLDiabetes mellitus: >/=12 6 mg/dL Random bl ood glucose:Normal: 70-199 mg/dLNot e: Random glucose >100 mg/dL is associ ated with increased risk for diabetes Lab Interpretation (test Abnormal code = 35110-5) [facility] CenterGl[facility] [id number] 09:49:36 Test Item Value Reference Range Interpretation Comments Glucose Level (test code 105 mg/dL 70-99 H Eff ective 11/22/15, = 2345-7) the glucose reference inter vals have been updat ed based on [place] Diabetes Associ ation guidelines (Standards of Medical Care in Diabetes 2016. Diabetes Care 2 016; 39: S13-S22).Fa sting blood glucose:Normal: 70-99 mg/dLImpa ired fasting glucose (increased risk for diabetes or pre-diabetes): 100-125 mg/dLDiabetes mellitus: >/=12 6 mg/dL Random bl ood glucose:Normal: 70-199 mg/dLNot e: Random glucose >100 mg/dL is associ ated with increased risk for diabetes Lab Interpretation (test Abnormal code = 82655-6) [facility] CenterProcalcitonin2023-01-09 09:36:52 Test Item Value Reference Range Interpretation Comments Procalcitonin (test 0.79 ng/mL See_Comment H Procalci tonin > 2.00 code = 61226-8) ng/mL: Proca lcitonin levels above 2. 00 ng/mL are highl y suggestive of a high risk for system atic bacterial infec tion/ severe sepsis a nd/or septic shock. Procalcitonin < 0.50 ng/mL: Procalci tonin levels below 0. 50 ng/mL are at lo w risk for progression to severe sepsis a nd/ or septic shock. Procalcitonin ( ProCT) between 0.15 an d 2.0 ng/mL do not ex clude infection, leslie use localized infec tions (without system ic signs) may be associated with such low levels. Res ults greater than 40 0 ng/mL may not b e reliable due to the matrix effect w ith extended diluti on as it exceeds the sample wrapper's recommended carbajal it. Caution should be exercised when interpreting tovar ch values and done in conjunction wit h clinical contex t. [Automated mess age] The system Exhbit generated this result transmitted ref erence range: <=0.08. The reference range was not used to int erpret this result as normal/abnormal . Lab Interpretation Abnormal (test code = 77182-8) [facility] [id number] 09:36:52 Test Item Value Reference Range Interpretation Comments Procalcitonin (test 0.79 ng/mL See_Comment H Procalci tonin > 2.00 code = 08099-8) ng/mL: Proca lcitonin levels above 2. 00 ng/mL are highl y suggestive of a high risk for system atic bacterial infec tion/ severe sepsis a nd/or septic shock. Procalcitonin < 0.50 ng/mL: Procalci tonin levels below 0. 50 ng/mL are at lo w risk for progression to severe sepsis a nd/ or septic shock. Procalcitonin ( ProCT) between 0.15 an d 2.0 ng/mL do not ex clude infection, leslie use localized infec tions (without system ic signs) may be associated with such low levels. Res ults greater than 40 0 ng/mL may not b e reliable due to the matrix effect w ith extended diluti on as it exceeds the sample wrapper's recommended carbajal it. Caution should be exercised when interpreting tovar ch values and done in conjunction wit clinical contex t. [Automated mess age] The system Exhbit generated this result transmitted ref erence range: <=0.08. The reference range was not used to int erpret this result as normal/abnormal . Lab Interpretation Abnormal (test code = 32608-0) [facility] CenterProcalcitonin2023-01-09 09:36:52 Test Item Value Reference Range Interpretation Comments Procalcitonin (test 0.79 ng/mL See_Comment H Procalci tonin > 2.00 code = 41684-4) ng/mL: Proca lcitonin levels above 2. 00 ng/mL are highl y suggestive of a high risk for system atic bacterial infec tion/ severe sepsis a nd/or septic shock. Procalcitonin < 0.50 ng/mL: Procalci tonin levels below 0. 50 ng/mL are at lo w risk for progression to severe sepsis a nd/ or septic shock. Procalcitonin ( ProCT) between 0.15 an d 2.0 ng/mL do not ex clude infection, leslie use localized infec tions (without system ic signs) may be associated with such low levels. Res ults greater than 40 0 ng/mL may not b e reliable due to the matrix effect w ith extended diluti on as it exceeds the sample wrapper's recommended carbajal it. Caution should be exercised when interpreting tovar ch values and done in conjunction wit clinical contex t. [Automated mess age] The system Exhbit generated this result transmitted ref erence range: <=0.08. The reference range was not used to int erpret this result as normal/abnormal . Lab Interpretation Abnormal (test code = 62781-0) [facility] [id number] 09:10:20 Test Item Value Reference Range Interpretation Comments CK (test code = 2157-6) 166 U/L 39-308 CK MB (test code = See_Comment [Automat ed message] 90108-4) The system Exhbit generated this result transmitted ref erence range: <=10.4. The reference range was not used to int erpret this result as normal/abnormal . Troponin T (test code = 34 ng/L See_Comment H < 19 ng/L Suggest 33978-6) retest at 3 to 6 hours later to rule o ut myocardial infa rction >= 19 to <=52 n g/L Possible myocar dial injury. Suggest retest at 3 hours. - a change of < 20 ng/L, r etest at 6 hours - a change of >= 20 ng/L, suggestive of myocardial infa rction > 52 ng/L Sugge stive of myocardial infarction Crit ical value will be r eported when cTnT is > 52 ng/L and only report ed for the first in a series. Hemolyzed speci mens with Hemolysis Index >100 (100 mg/dl or moderate hemoly sis) may cause interferences a nd falsely low res ults. [Automated mess age] The system Exhbit generated this result transmitted ref erence range: <=18. Th e reference range was not used to int erpret this result as normal/abnormal . Lab Interpretation Abnormal (test code = 49785-3) [facility] [id number] 09:10:20 Test Item Value Reference Range Interpretation Comments CK (test code = 2157-6) 166 U/L 39-308 CK MB (test code = See_Comment [Automat ed message] 83072-7) The system Exhbit generated this result transmitted ref erence range: <=10.4. The reference range was not used to int erpret this result as normal/abnormal . Troponin T (test code = 34 ng/L See_Comment H < 19 ng/L Suggest 70930-6) retest at 3 to 6 hours later to rule o ut myocardial infa rction >= 19 to <=52 n g/L Possible myocar dial injury. Suggest retest at 3 hours. - a change of < 20 ng/L, r etest at 6 hours - a change of >= 20 ng/L, suggestive of myocardial infa rction > 52 ng/L Sugge stive of myocardial infarction Crit ical value will be r eported when cTnT is > 52 ng/L and only report ed for the first in a series. Hemolyzed speci mens with Hemolysis Index >100 (100 mg/dl or moderate hemoly sis) may cause interferences a nd falsely low res ults. [Automated mess age] The system Exhbit generated this result transmitted ref erence range: <=18. Th e reference range was not used to int erpret this result as normal/abnormal . Lab Interpretation Abnormal (test code = 08702-2) [facility] [id number] 09:10:20 Test Item Value Reference Range Interpretation Comments CK (test code = 2157-6) 166 U/L 39-308 CK MB (test code = See_Comment [Automat ed message] 05388-3) The system Exhbit generated this result transmitted ref erence range: <=10.4. The reference range was not used to int erpret this result as normal/abnormal . Troponin T (test code = 34 ng/L See_Comment H < 19 ng/L Suggest 96834-4) retest at 3 to 6 hours later to rule o ut myocardial infa rction >= 19 to <=52 n g/L Possible myocar dial injury. Suggest retest at 3 hours. - a change of < 20 ng/L, r etest at 6 hours - a change of >= 20 ng/L, suggestive of myocardial infa rction > 52 ng/L Sugge stive of myocardial infarction Crit ical value will be r eported when cTnT is > 52 ng/L and only report ed for the first in a series. Hemolyzed speci mens with Hemolysis Index >100 (100 mg/dl or moderate hemoly sis) may cause interferences a nd falsely low res ults. [Automated mess age] The system Exhbit generated this result transmitted ref erence range: <=18. Th e reference range was not used to int erpret this result as normal/abnormal . Lab Interpretation Abnormal (test code = 86587-1) [facility] [id number] 09:10:20 Test Item Value Reference Range Interpretation Comments CK (test code = 2157-6) 166 U/L 39-308 CK MB (test code = <=10.4 49772-9) Troponin T (test code = 34 ng/L <=18 H < 19 ng/L Suggest 34364-8) retest at 3 to 6 hours later to rule o ut myocardial infa rction >= 19 to <=52 n g/L Possible myocar dial injury. Suggest retest at 3 hours. - a change of < 20 ng/L, r etest at 6 hours - a change of >= 20 ng/L, suggestive of myocardial infa rction > 52 ng/L Sugge stive of myocardial infarction Crit ical value will be r eported when cTnT is > 52 ng/L and only report ed for the first in a series. Hemolyzed speci mens with Hemolysis Index >100 (100 mg/dl or moderate hemoly sis) may cause interferences a nd falsely low res ults. Lab Interpretation Abnormal (test code = 66388-1) [facility] [id number] 09:10:20 Test Item Value Reference Range Interpretation Comments CK (test code = 2157-6) 166 U/L 39-308 CK MB (test code = <=10.4 95597-7) Troponin T (test code = 34 ng/L <=18 H < 19 ng/L Suggest 72595-4) retest at 3 to 6 hours later to rule o ut myocardial infa rction >= 19 to <=52 n g/L Possible myocar dial injury. Suggest retest at 3 hours. - a change of < 20 ng/L, r etest at 6 hours - a change of >= 20 ng/L, suggestive of myocardial infa rction > 52 ng/L Sugge stive of myocardial infarction Crit ical value will be r eported when cTnT is > 52 ng/L and only report ed for the first in a series. Hemolyzed speci mens with Hemolysis Index >100 (100 mg/dl or moderate hemoly sis) may cause interferences a nd falsely low res ults. Lab Interpretation Abnormal (test code = 50408-2) [facility] [id number] 09:10:20 Test Item Value Reference Range Interpretation Comments CK (test code = 2157-6) 166 U/L 39-308 CK MB (test code = <=10.4 36255-4) Troponin T (test code = 34 ng/L <=18 H < 19 ng/L Suggest 18678-2) retest at 3 to 6 hours later to rule o ut myocardial infa rction >= 19 to <=52 n g/L Possible myocar dial injury. Suggest retest at 3 hours. - a change of < 20 ng/L, retest at 6 hermes [address] - a change of >= 20 ng/L, suggestive of myocardial infa rction > 52 ng/L Sugge stive of myocardial infarction Crit ical value will be r eported when cTnT is > 52 ng/L and only report ed for the first in a series. Hemolyzed speci mens with Hemolysis Index >100 (100 mg/dl or moderate hemoly sis) may cause interferences a nd falsely low res ults. Lab Interpretation Abnormal (test code = 83092-0) [facility] [id number] 09:10:20 Test Item Value Reference Range Interpretation Comments CK (test code = 2157-6) 166 U/L 39-308 CK MB (test code = <=10.4 33859-9) Troponin T (test code = 34 ng/L <=18 H < 19 ng/L Suggest 23708-3) retest at 3 to 6 hours later to rule o ut myocardial infa rction >= 19 to <=52 n g/L Possible myocar dial injury. Suggest retest at 3 hours. - a change of < 20 ng/L, retest at 6 [address] - a change of >= 20 ng/L, suggestive of myocardial infa rction > 52 ng/L Sugge stive of myocardial infarction Crit ical value will be r eported when cTnT is > 52 ng/L and only report ed for the first in a series. Hemolyzed speci mens with Hemolysis Index >100 (100 mg/dl or moderate hemoly sis) may cause interferences a nd falsely low res ults. Lab Interpretation Abnormal (test code = 39825-6) [facility] [facility] [id number] 09:10:20 Test Item Value Reference Range Interpretation Comments CK (test code = 2157-6) 166 U/L 39-308 CK MB (test code = <=10.4 67926-7) Troponin T (test code = 34 ng/L <=18 H < 19 ng/L Suggest 16836-2) retest at 3 to 6 hours later to rule o ut myocardial infa rction >= 19 to <=52 n g/L Possible myocar dial injury. Suggest retest at 3 hours. - a change of < 20 ng/L, r etest at 6 hours - a change of >= 20 ng/L, suggestive of myocardial infa rction > 52 ng/L Sugg estive of myocardial infarction Crit ical value will be r eported when cTnT is > 52 ng/L and only report ed for the first in a series. Hemolyzed speci mens with Hemolysis Index >100 (100 mg/dl or moderate hemoly sis) may cause interferences a nd falsely low res ults. Lab Interpretation Abnormal (test code = 93318-4) [facility] Chem 8 without Hemoglobin and [id number] 09:07:37 Test Item Value Reference Range Interpretation Comments POC NA (test code = 133 See_Comment L [Automa elbert message] 2946-0) The system Exhbit generated this result transmitted ref erence range: 138 - 14 6 mEq/L. The refe rence range was not u sed to interpret this result as normal/abnor mal. POC K (test code = 3.6 See_Comment Method de scription: 6298-4) The i-STAT is a n analyzer used f or in vitro quantific ation of various anal ytes in whole blood. The device uses a s richard disposable cart ridge which contains microfabricated sensors, a calibration april ution, fluidics system , and a waste chamber . Each test cartridge contains chemic ally sensitive biose nsors on a [email or web address] ip that are config ured to perform spec ific tests. The microfabricated sensors measure analyte concent ration by an electroch emical assay. [Automat ed message] The sy stem which generated this result transmit elbert reference range : 3.5 - 4.9 mEq/L. Th e reference range was not used to int erpret this result as normal/abnormal . POC CL (test code = 100 See_Comment [Automa elbert message] 2068-06) The system Exhbit generated this result transmitted ref erence range: 98 - 109 mEq/L. The refe rence range was not u sed to interpret this result as normal/abnor mal. POC VTCO2 (test code 29 See_Comment [Autom ated message] = 2026-04) The system Exhbit generated this result transmitted ref erence range: 24 - 29 mEq/L. The reference r sam was not used to interpret this result as normal/abnor mal. POC Anion Gap (test 9 mmol/L 10-20 L code = 04445) POC BUN (test code = 22 mg/dL 12-21 6299-2) POC Crea (test code 1.5 mg/dL 0.6-1.3 H Medicati ons, = 35154-3) especially hydroxyurea or supplements, tovar ch as ascorbate, can interfere with test results causing a falsely and significantly h igher result than exp ected. If a problem is suspected with a patient's resul t, a sample should b e sent to the laborato ry for confirmatory te sting. Method descript ion: The i-STAT is a n analyzer used f or in vitro quantific ation of various anal ytes in whole blood. The device uses a s richard disposable cart ridge which contains microfabricated sensors, a calibration april ution, fluidics system , and a waste chamber . Each test cartridge contains chemic ally sensitive biose nsors on a [email or web address] ip that are config ured to perform spec ific tests. The microfabricated sensors measure analyte concent ration by an electroch emical assay. POC EGFR (test code 50 See_Comment L The eGFR cr is = 64210) calculated with the 2020 CKD-EPI creatinine equa tion using creatinin e, patient's age, and sex for adults 18 years of age an d older. Other fa ctors, especially musc le mass, may affec t accuracy and ne ed to be considered.Acco rding to the Kidney Disease: Improv ing Global Outcomes (KDIGO) CKD Wor k Group 2012 Clin ical Practice Gu[place] ine, chronic kidney disease (CKD) i s defined as the abnormalities o f kidney structur e or function, prese nt for more than 3 mon ths, with implicatio ns for health. CKD mariela uld be classified by c ause, GFR category, a nd albuminuria cat egory. KDIGO guideline s provide the fol lowing GFR categoriesS tage Description GFR mL/min/1.73 m2G 1* Normal or high >= 90G2* Mildly decreased 60-89 G3a Mildly to moder ately decreased 45-59 G3b Moderately to severely decrea sed 30-44G4 Severel y decreased 15-29 G5 Kidney failure <15*In the absence of evidence of kid amalia damage, neither G1 nor G2 fulfill criteria for CK D. [Automated mess age] The system Exhbit generated this result transmitted ref erence range: >=60 mL/min/1.73 sq. m. The reference r sam was not used to interpret this result as normal/abnor mal. POC Glucose (test 101 mg/dL 70-99 H Medication s, code = 2339-0) especially hydroxyurea, ca n interfere with test results causing a falsely and significantly h igher result than exp ected. If a problem is suspected with a patient's resul t, a sample should b e sent to the laborato for confirmatory te sting. POC Ion Ca (test 1.17 mmol/L 1.12-1.32 code = 1994-) POC Sample Type Venous (test code = 6690) POC Clean Dev (test Yes code = 6672) Performing Lab (test MDA Main Main Ca mpus code = 72408) [facility] Cli nical Lab, [address] [place] [address]; Stitching Machine Operator: Cyndy Ramirez MD Lab Interpretation Abnormal (test code = 05901-1) [facility] without Hemoglobin and [id number] 09:07:37 Test Item Value Reference Range Interpretation Comments POC NA (test code = 133 See_Comment L [Automa elbert message] 2947-0) The system Exhbit generated this result transmitted ref erence range: 138 - 14 6 mEq/L. The refe rence range was not u sed to interpret this result as normal/abnor mal. POC K (test code = 3.6 See_Comment Method de scription: 6298-4) The i-STAT is a n analyzer used f or in vitro quantific ation of various anal ytes in whole blood. The device uses a s richard disposable cart ridge which contains microfabricated sensors, a calibration april ution, fluidics system , and a waste chamber . Each test cartridge contains chemic ally sensitive biose nsors on a [email or web address] ip that are config ured to perform spec ific tests. The microfabricated sensors measure analyte concent ration by an electroch emical assay. [Automat ed message] The sy stem which generated this result transmit elbert reference range : 3.5 - 4.9 mEq/L. Th e reference range was not used to int erpret this result as normal/abnormal . POC CL (test code = 100 See_Comment [Automa elbert message] 2068-06) The system Exhbit generated this result transmitted ref erence range: 98 - 109 mEq/L. The refe rence range was not u sed to interpret this result as normal/abnor mal. POC VTCO2 (test code 29 See_Comment [Autom ated message] = 2026-04) The system [employer] generated this result transmitted ref erence range: 24 - 29 mEq/L. The reference r sam was not used to interpret this result as normal/abnor mal. POC Anion Gap (test 9 mmol/L 10-20 L code = 47250) POC BUN (test code = 22 mg/dL 8- 6299-2) POC Crea (test code 1.5 mg/dL 0.6-1.3 H Medicati ons, = 72412-3) especially hydroxyurea or supplements, tovar ch as ascorbate, can interfere with test results causing a falsely and significantly h igher result than exp ected. If a problem is suspected with a patient's resul t, a sample should b e sent to the laborato ry for confirmatory te sting. Method descript ion: The i-STAT is a n analyzer used f or in vitro quantific ation of various anal ytes in whole blood. The device uses a s richard disposable cart ridge which contains microfabricated sensors, a calibration april [employer], fluidics system , and a waste chamber . Each test cartridge contains chemic ally sensitive biose nsors on a [email or web address] ip that are config ured to perform spec ific tests. The microfabricated sensors measure analyte concent ration by an electroch emical assay. POC EGFR (test code 50 See_Comment L The eGFR cr is = 61103) calculated with the 2020 CKD-EPI creatinine equa tion using creatinin e, patient's age, and sex for adults 18 years of age an d older. Other fa ctors, especially musc le mass, may affec t accuracy and ne ed to be considered.Acco rding to the Kidney Disease: Improv ing Global Outcomes (KDIGO) CKD Wor k Group 2012 Clin ical Practice [place] ine, chronic kidney disease (CKD) i s defined as the abnormalities o f kidney structur e or function, prese nt for more than 3 mon ths, with implicatio ns for health. CKD mariela uld be classified by c ause, GFR category, a nd albuminuria cat egory. KDIGO guideline s provide the fol lowing GFR categoriesS tage Description GFR mL/min/1.73 m2G 1* Normal or high >= 90G2* Mildly decreased 60-89 G3a Mildly to moder ately decreased 45-59 G3b Moderately to severely decrea sed 30-44G4 Severel y decreased 15-29 G5 Kidney failure <15*In the absence of evidence of kid amalia damage, neither G1 nor G2 fulfill criteria for CK D. [Automated mess age] The system Exhbit generated this result transmitted ref erence range: >=60 mL/min/1.73 sq. m. The reference r sam was not used to interpret this result as normal/abnor mal. POC Glucose (test 101 mg/dL 70-99 H Medication s, code = 2339-0) especially hydroxyurea, ca n interfere with test results causing a falsely and significantly h igher result than exp ected. If a problem is suspected with a patient's resul t, a sample should b e sent to the laborato ry for confirmatory te sting. POC Ion Ca (test 1.17 mmol/L 1.12-1.32 code = 1993-) POC Sample Type Venous (test code = 6690) POC Clean Dev (test Yes code = 6672) Performing Lab (test MDA Main Main Ca mpus code = 51237) [facility] Cli nical Lab, [address], [place] [address]; Stitching Machine Operator: Cyndy Ramirez MD Lab Interpretation Abnormal (test code = 41857-4) [facility] without Hemoglobin and [id number] 09:07:37 Test Item Value Reference Range Interpretation Comments POC NA (test code = 133 See_Comment L [Automa elbert message] 2947-0) The system Exhbit generated this result transmitted ref erence range: 138 - 14 6 mEq/L. The refe rence range was not u sed to interpret this result as normal/abnor mal. POC K (test code = 3.6 See_Comment Method de scription: 6298-4) The i-STAT is a n analyzer used f or in vitro quantific ation of various anal ytes in whole blood. The device uses a s richard disposable cart ridge which contains microfabricated sensors, a calibration april ution, fluidics system , and a waste chamber . Each test cartridge contains chemic ally sensitive biose nsors on a silicon [employer]Move ip that are config ured to perform spec ific tests. The microfabricated sensors measure analyte concent ration by an electroch emical assay. [Automat ed message] The sy stem which generated this result transmit elbert reference range : 3.5 - 4.9 mEq/L. Th e reference range was not used to int erpret this result as normal/abnormal . POC CL (test code = 100 See_Comment [Automa elbert message] 2068-06) The system Exhbit generated this result transmitted ref erence range: 98 - 109 mEq/L. The refe rence range was not u sed to interpret this result as normal/abnor mal. POC VTCO2 (test code 29 See_Comment [Autom ated message] = 2026-04) The system Exhbit generated this result transmitted ref erence range: 24 - 29 mEq/L. The reference r sam was not used to interpret this result as normal/abnor mal. POC Anion Gap (test 9 mmol/L 10-20 L code = 54273) POC BUN (test code = 22 mg/dL -99-2) POC Crea (test code 1.5 mg/dL 0.6-1.3 H Medicati ons, = 18622-7) especially hydroxyurea or supplements, tovar ch as ascorbate, can interfere with test results causing a falsely and significantly h igher result than exp ected. If a problem is suspected with a patient's resul t, a sample should b e sent to the [facility] for confirmatory te sting. Method descript ion: The i-STAT is a n analyzer used f or in vitro quantific ation of various anal ytes in whole blood. The device uses a s richard disposable cart ridge which contains microfabricated sensors, a calibration april ution, fluidics system , and a waste chamber . Each test cartridge contains chemic ally sensitive biose nsors on a [email or web address] ip that are config ured to perform spec ific tests. The microfabricated sensors measure analyte concent ration by an electroch emical assay. POC EGFR (test code 50 See_Comment L The eGFR cr is = 70619) calculated with the 2020 CKD-EPI creatinine equa tion using creatinin e, patient's age, and sex for adults 18 years of age an d older. Other fa ctors, especially musc le mass, may affec t accuracy and ne ed to be considered.Acco rding to the Kidney Disease: Improv ing Global Outcomes (KDIGO) CKD Wor k Group 2012 Clin ical Practice [place] ine, chronic kidney disease (CKD) i s defined as the abnormalities o f kidney structur e or function, prese nt for more than 3 mon ths, with implicatio ns for health. CKD mariela uld be classified by c magdiel, GFR category, a nd albuminuria cat egory. KDIGO guideline s provide the fol lowing GFR categoriesS tage Description GFR mL/min/1.73 m2G 1* Normal or high >= 90G2* Mildly decreased 60-89 G3a Mildly to moder ately decreased 45-59 G3b Moderately to severely decrea sed 30-44G4 Severel y decreased 15-29 G5 Kidney failure <15*In the absence of evidence of kid amalia damage, neither G1 nor G2 fulfill criteria for CK D. [Automated mess age] The system [employer] generated this result transmitted ref erence range: >=60 mL/min/1.73 sq. m. The reference r sam was not used to interpret this result as normal/abnor mal. POC Glucose (test 101 mg/dL 70-99 H Medication s, code = 2339-0) especially hydroxyurea, ca n interfere with test results causing a falsely and significantly h igher result than exp ected. If a problem is suspected with a patient's resul t, a sample should b e sent to the laborato for confirmatory te sting. POC Ion Ca (test 1.17 mmol/L 1.12-1.32 code = 1993-3) POC Sample Type Venous (test code = 6690) POC Clean Dev (test Yes code = 6672) Performing Lab (test MDA Main Main Ca mpus code = 29311) [facility] Cli nical Lab, [address], [place] [address]; Stitching Machine Operator: Cyndy Ramirez MD Lab Interpretation Abnormal (test code = 60179-4) [facility] 8 without Hemoglobin and [id number] 09:07:37 Test Item Value Reference Range Interpretation Comments POC NA (test code = 133 See_Comment L [Automa elbert message] 2946-0) The system Exhbit generated this result transmitted ref erence range: 138 - 14 6 mEq/L. The refe rence range was not u sed to interpret this result as normal/abnor mal. POC K (test code = 3.6 See_Comment Method de scription: 6298-4) The i-STAT is a n analyzer used f or in vitro quantific ation of various anal ytes in whole blood. The device uses a s richard disposable cart ridge which contains microfabricated sensors, a calibration april ution, fluidics system , and a waste chamber . Each test cartridge contains chemic ally sensitive biose nsors on a [email or web address] ip that are config ured to perform spec ific tests. The microfabricated sensors measure analyte concent ration by an electroch emical assay. [Automat ed message] The sy stem which generated this result transmit elbert reference range : 3.5 - 4.9 mEq/L. Th e reference range was not used to int erpret this result as normal/abnormal . POC CL (test code = 100 See_Comment [Automa elbert message] 2068-06) The system Exhbit generated this result transmitted ref erence range: 98 - 109 mEq/L. The refe rence range was not u sed to interpret this result as normal/abnor mal. POC VTCO2 (test code 29 See_Comment [Autom ated message] = 2026-04) The system Exhbit generated this result transmitted ref erence range: 24 - 29 mEq/L. The reference r sam was not used to interpret this result as normal/abnor mal. POC Anion Gap (test 9 mmol/L 10-20 L code = 97424) POC BUN (test code = 22 mg/dL 12-21 6299-2) POC Crea (test code 1.5 mg/dL 0.6-1.3 H Medicati ons, = 69376-8) especially hydroxyurea or supplements, tovar ch as ascorbate, can interfere with test results causing a falsely and significantly h igher result than exp ected. If a problem is suspected with a patient's resul t, a sample should b e sent to the laborato for confirmatory te sting. Method descript ion: The i-STAT is a n analyzer used f or in vitro quantific ation of various anal ytes in whole blood. The device uses a s richard disposable cart ridge which contains microfabricated sensors, a calibration april ution, fluidics system , and a waste chamber . Each test cartridge contains chemic ally sensitive biose nsors on a [email or web address] ip that are config ured to perform spec ific tests. The microfabricated sensors measure analyte concent ration by an electroch emical assay. POC EGFR (test code 50 See_Comment L The eGFR cr is = 33166) calculated with the 2020 CKD-EPI creatinine equa tion using creatinin e, patient's age, and sex for adults 18 years of age an d older. Other fa ctors, especially musc le mass, may affec t accuracy and ne ed to be considered.Acco rding to the Kidney Disease: Improv ing Global Outcomes (KDIGO) CKD Wor k Group 2012 Clin ical Practice Guidel ine, chronic kidney disease (CKD) i s defined as the abnormalities o f kidney structur e or function, prese nt for more than 3 mon ths, with implicatio ns for health. CKD mariela uld be classified by c ause, GFR category, a nd albuminuria cat egory. KDIGO guideline s provide the fol lowing GFR categoriesS tage Description GFR mL/min/1.73 m2G 1* Normal or high >= 90G2* Mildly decreased 60-89 G3a Mildly to moder ately decreased 45-59 G3b Moderately to severely decrea sed 30-44G4 Severel y decreased 15-29 G5 Kidney failure <15*In the absence of evidence of kid amalia damage, neither G1 nor G2 fulfill criteria for CK D. [Automated mess age] The system whic h generated this result transmitted ref erence range: >=60 mL/min/1.73 sq. m. The reference r sam was not used to interpret this result as normal/abnor mal. POC Glucose (test 101 mg/dL 70-99 H Medication s, code = 2339-0) especially hydroxyurea, ca n interfere with test results causing a falsely and significantly h igher result than exp ected. If a problem is suspected with a patient's resul t, a sample should b e sent to the laborato for confirmatory te sting. POC Ion Ca (test 1.17 mmol/L 1.12-1.32 code = 1993-06) POC Sample Type Venous (test code = 6690) POC Clean Dev (test Yes code = 6672) Performing Lab (test MDA Main Main Ca mpus code = 07500) [facility] Cli nical Lab, [address] [place] [id number]; Stitching Machine Operator: Cyndy Ramirez MD Lab Interpretation Abnormal (test code = 00503-0) [facility] without Hemoglobin and [id number] 09:07:37 Test Item Value Reference Range Interpretation Comments POC NA (test code = 133 See_Comment L [Automa elbert message] 2947-0) The system Exhbit generated this result transmitted ref erence range: 138 - 14 6 mEq/L. The refe rence range was not u sed to interpret this result as normal/abnor mal. POC K (test code = 3.6 See_Comment Method de scription: 6298-4) The i-STAT is a n analyzer used f or in vitro quantific ation of various anal ytes in whole blood. The device uses a s richard disposable cart ridge which contains microfabricated sensors, a calibration april [employer], fluidics system , and a waste chamber . Each test cartridge contains chemic ally sensitive biose nsors on a [email or web address] ip that are config ured to perform spec ific tests. The microfabricated sensors measure analyte concent ration by an electroch emical assay. [Automat ed message] The sy stem which generated this result transmit elbert reference range : 3.5 - 4.9 mEq/L. Th e reference range was not used to int erpret this result as normal/abnormal . POC CL (test code = 100 See_Comment [Automa elbert message] 2068-06) The system Exhbit generated this result transmitted ref erence range: 98 - 109 mEq/L. The refe rence range was not u sed to interpret this result as normal/abnor mal. POC VTCO2 (test code 29 See_Comment [Autom ated message] = 2026-04) The system Exhbit generated this result transmitted ref erence range: 24 - 29 mEq/L. The reference r sam was not used to interpret this result as normal/abnor mal. POC Anion Gap (test 9 mmol/L 10-20 L code = 58411) POC BUN (test code = 22 mg/dL -99-2) POC Crea (test code 1.5 mg/dL 0.6-1.3 H Medicati ons, = 17571-9) especially hydroxyurea or supplements, tovar ch as ascorbate, can interfere with test results causing a falsely and significantly h igher result than exp ected. If a problem is suspected with a patient's resul t, a sample should b e sent to the laborato for confirmatory te sting. Method descript ion: The i-STAT is a n analyzer used f or in vitro quantific ation of various anal ytes in whole blood. The device uses a s richard disposable cart ridge which contains microfabricated sensors, a calibration april ution, fluidics system , and a waste chamber . Each test cartridge contains chemic ally sensitive biose nsors on a [email or web address] ip that are config ured to perform spec ific tests. The microfabricated sensors measure analyte concent ration by an electroch emical assay. POC EGFR (test code 50 See_Comment L The eGFR cr is = 50867) calculated with the 2020 CKD-EPI creatinine equa tion using creatinin e, patient's age, and sex for adults 18 years of age an d older. Other fa ctors, especially musc le mass, may affec t accuracy and ne ed to be considered.Acco rding to the Kidney Disease: Improv ing Global Outcomes (KDIGO) CKD Wor k Group 2012 Clin ical Practice Guidel ine, chronic kidney disease (CKD) i s defined as the abnormalities o f kidney structur e or function, prese nt for more than 3 mon ths, with implicatio ns for health. CKD mariela uld be classified by fran veloz, GFR category, a nd albuminuria cat egory. KDIGO guideline s provide the fol lowing GFR categoriesS tage Description GFR mL/min/1.73 m2G 1* Normal or high >= 90G2* Mildly decreased 60-89 G3a Mildly to moder ately decreased 45-59 G3b Moderately to severely decrea sed 30-44G4 Severel y decreased 15-29 G5 Kidney failure <15*In the absence of evidence of kid amalia damage, neither G1 nor G2 fulfill criteria for CK D. [Automated mess age] The system Exhbit generated this result transmitted ref erence range: >=60 mL/min/1.73 sq. m. The reference r sam was not used to interpret this result as normal/abnor mal. POC Glucose (test 101 mg/dL 70-99 H Medication s, code = 2339-0) especially hydroxyurea, ca n interfere with test results causing a falsely and significantly h igher result than exp ected. If a problem is suspected with a patient's resul t, a sample should b e sent to the laborato ry for confirmatory te sting. POC Ion Ca (test 1.17 mmol/L 1.12-1.32 code = 1993-06) POC Sample Type Venous (test code = 6690) POC Clean Dev (test Yes code = 6672) Performing Lab (test MDA Main Main Ca mpus code = 95956) [facility] Cli nical Lab, [address] [place], [place] [address], [place] [address]; Stitching Machine Operator: Cyndy Ramirez MD Lab Interpretation Abnormal (test code = 84836-1) [facility] without Hemoglobin and [id number] 09:07:37 Test Item Value Reference Range Interpretation Comments POC NA (test code = 133 See_Comment L [Automa elbert message] 2947-0) The system Exhbit generated this result transmitted ref erence range: 138 - 14 6 mEq/L. The refe rence range was not u sed to interpret this result as normal/abnor mal. POC K (test code = 3.6 See_Comment Method de scription: 6298-4) The i-STAT is a n analyzer used f or in vitro quantific ation of various anal ytes in whole blood. The device uses a s richard disposable cart ridge which contains microfabricated sensors, a calibration april ution, fluidics system , and a waste chamber . Each test cartridge contains chemic ally sensitive biose nsors on a [email or web address] ip that are config ured to perform spec ific tests. The microfabricated sensors measure analyte concent ration by an electroch emical assay. [Automat ed message] The sy stem which generated this result transmit elbert reference range : 3.5 - 4.9 mEq/L. Th e reference range was not used to int erpret this result as normal/abnormal . POC CL (test code = 100 See_Comment [Automa elbert message] 2068-06) The system Exhbit generated this result transmitted ref erence range: 98 - 109 mEq/L. The refe rence range was not u sed to interpret this result as normal/abnor mal. POC VTCO2 (test code 29 See_Comment [Autom ated message] = 2026-04) The system Exhbit generated this result transmitted ref erence range: 24 - 29 mEq/L. The reference r sam was not used to interpret this result as normal/abnor mal. POC Anion Gap (test 9 mmol/L 10-20 L code = 72604) POC BUN (test code = 22 mg/dL 8-26 6299-2) POC Crea (test code 1.5 mg/dL 0.6-1.3 H Medicati ons, = 60565-1) especially hydroxyurea or supplements, tovar ch as ascorbate, can interfere with test results causing a falsely and significantly h igher result than exp ected. If a problem is suspected with a patient's resul t, a [facility]. Method descript ion: The i-STAT is a n analyzer used f or in vitro quantific ation of various anal ytes in whole blood. The device uses a s richard disposable cart ridge which contains microfabricated sensors, a calibration april ution, fluidics system , and a waste chamber . Each test cartridge contains chemic ally sensitive biose nsors on a [email or web address] ip that are config ured to perform spec ific tests. The microfabricated sensors measure analyte concent ration by an electroch emical assay. POC EGFR (test code 50 See_Comment L The eGFR cr is = 02083) calculated with the 2020 CKD-EPI creatinine equa tion using creatinin e, patient's age, and sex for adults 18 years of age an d older. Other fa ctors, especially musc le mass, may affec t accuracy and ne ed to be considered.Acco rding to the Kidney Disease: Improv ing Global Outcomes (KDIGO) CKD Wor k Group 2011 Clin ical Practice Guidel ine, chronic kidney disease (CKD) i s defined as the abnormalities o f kidney structur e or function, prese nt for more than 3 mon ths, with implicatio ns for health. CKD mariela uld be classified by c diamonde, GFR category, a nd albuminuria cat egory. KDIGO guideline s provide the fol lowing GFR categoriesS tage Description GFR mL/min/1.73 m2G 1* Normal or high >= 90G2* Mildly decreased 60-89 G3a Mildly to moder ately decreased 45-59 G3b Moderately to severely decrea sed 30-44G4 Severel y decreased 15-29 G5 Kidney failure <15*In the absence of evidence of kid amalia damage, neither G1 nor G2 fulfill criteria for CK D. [Automated mess age] The system Exhbit generated this result transmitted ref erence range: >=60 mL/min/1.73 sq. m. The reference r sam was not used to interpret this result as normal/abnor mal. POC Glucose (test 101 mg/dL 70-99 H Medication s, code = 2339-0) especially hydroxyurea, ca n interfere with test results causing a falsely and significantly h igher result than exp ected. If a problem is suspected with a patient's resul t, a sample should b e sent to the laborato ry for confirmatory te sting. POC Ion Ca (test 1.17 mmol/L 1.12-1.32 code = 1993-06) POC Sample Type Venous (test code = 6690) POC Clean Dev (test Yes code = 6672) Performing Lab (test MDA Main Main Ca mpus code = 44585) [facility] Cli nical Lab, [address], [place] [address]; Stitching Machine Operator: Cyndy Ramirez MD Lab Interpretation Abnormal (test code = 09085-7) [facility] Chem 8 without Hemoglobin and [id number] 09:07:37 Test Item Value Reference Range Interpretation Comments POC NA (test code = 133 See_Comment L [Automa elbert message] 2946-0) The system Exhbit generated this result transmitted ref erence range: 138 - 14 6 mEq/L. The refe rence range was not u sed to interpret this result as normal/abnor mal. POC K (test code = 3.6 See_Comment Method de scription: 6298-4) The i-STAT is a n analyzer used f or in vitro quantific ation of various anal ytes in whole blood. The device uses a s richard disposable cart ridge which contains microfabricated sensors, a calibration april ution, fluidics system , and a waste chamber . Each test cartridge contains chemic ally sensitive biose nsors on a [email or web address] ip that are config ured to perform spec ific tests. The microfabricated sensors measure analyte concent ration by an electroch emical assay. [Automat ed message] The sy stem which generated this result transmit elbert reference range : 3.5 - 4.9 mEq/L. Th e reference range was not used to int erpret this result as normal/abnormal . POC CL (test code = 100 See_Comment [Automa elbert message] 2068-06) The system Exhbit generated this result transmitted ref erence range: 98 - 109 mEq/L. The refe rence range was not u sed to interpret this result as normal/abnor mal. POC VTCO2 (test code 29 See_Comment [Autom ated message] = 2026-04) The system Exhbit generated this result transmitted ref erence range: 24 - 29 mEq/L. The reference r sam was not used to interpret this result as normal/abnor mal. POC Anion Gap (test 9 mmol/L 10-20 L code = 18486) POC BUN (test code = 22 mg/dL 8- 6299-2) POC Crea (test code 1.5 mg/dL 0.6-1.3 H Medicati ons, = 31766-0) especially hydroxyurea or supplements, tovar ch as ascorbate, can interfere with test results causing a falsely and significantly h igher result than exp ected. If a problem is suspected with a patient's resul t, a sample should b e sent to the laborato ry for confirmatory te sting. Method descript ion: The i-STAT is a n analyzer used f or in vitro quantific ation of various anal ytes in whole blood. The device uses a s richard disposable cart ridge which contains microfabricated sensors, a calibration april ution, fluidics system , and a waste chamber . Each test cartridge contains chemic ally sensitive biose nsors on a [email or web address] ip that are config ured to perform spec ific tests. The microfabricated sensors measure analyte concent ration by an electroch emical assay. POC EGFR (test code 50 See_Comment L The eGFR cr is = 55443) calculated with the 2020 CKD-EPI creatinine equa tion using creatinin e, patient's age, and sex for adults 18 years of age an d older. Other fa ctors, especially musc le mass, may affec t accuracy and ne ed to be considered.Acco rding to the Kidney Disease: Improv ing Global Outcomes (KDIGO) CKD Wor k Group 2012 Clin ical Practice Guidel ine, chronic kidney disease (CKD) i s defined as the abnormalities o f kidney structur e or function, prese nt for more than 3 mon ths, with implicatio ns for health. CKD mariela uld be classified by c ause, GFR category, a nd albuminuria cat egory. KDIGO guideline s provide the fol lowing GFR categoriesS tage Description GFR mL/min/1.73 m2G 1* Normal or high >= 90G2* Mildly decreased 60-89 G3a Mildly to moder ately decreased 45-59 G3b Moderately to severely decrea sed 30-44G4 Severel y decreased 15-29 G5 Kidney failure <15*In the absence of evidence of kid amalia damage, neither G1 nor G2 fulfill criteria for CK D. [Automated mess age] The system Exhbit generated this result transmitted ref erence range: >=60 mL/min/1.73 sq. m. The reference r sam was not used to interpret this result as normal/abnor mal. POC Glucose (test 101 mg/dL 70-99 H Medication s, code = 2339-0) especially hydroxyurea, ca n interfere with test results causing a falsely and significantly h igher result than exp ected. If a problem is suspected with a patient's resul t, a sample should b e sent to the laborato ry for confirmatory te sting. POC Ion Ca (test 1.17 mmol/L 1.12-1.32 code = 1993-) POC Sample Type Venous (test code = 6690) POC Clean Dev (test Yes code = 6672) Performing Lab (test [facility] Main Main Ca mpus code = 39426) [facility] Cli nical Lab, [facility] [facility] [address], [place] [address]; Stitching Machine Operator: Cyndy Ramirez MD Lab Interpretation Abnormal (test code = 54685-6) [facility] Chem 8 without Hemoglobin and [id number] 09:07:37 Test Item Value Reference Range Interpretation Comments POC NA (test code = 133 See_Comment L [Automa elbert message] 8067-0) The system Exhbit generated this result transmitted ref erence range: 138 - 14 6 mEq/L. The refe rence range was not u sed to interpret this result as normal/abnor mal. POC K (test code = 3.6 See_Comment Method de scription: 6298-4) The i-STAT is a n analyzer used f or in vitro quantific ation of various anal ytes in whole blood. The device uses a s richard disposable cart ridge which contains microfabricated sensors, a calibration april [employer], fluidics system , and a waste chamber . Each test cartridge contains chemic ally sensitive biose nsors on a [email or web address] ip that are config ured to perform spec ific tests. The microfabricated sensors measure analyte concent ration by an electroch emical assay. [Automat ed message] The sy stem which generated this result transmit elbert reference range : 3.5 - 4.9 mEq/L. Th e reference range was not used to int erpret this result as normal/abnormal . POC CL (test code = 100 See_Comment [Automa elbert message] 2068-06) The system Exhbit generated this result transmitted ref erence range: 98 - 109 mEq/L. The refe rence range was not u sed to interpret this result as normal/abnor mal. POC VTCO2 (test code 29 See_Comment [Autom ated message] = 2026-04) The system Exhbit generated this result transmitted ref erence range: 24 - 29 mEq/L. The reference r sam was not used to interpret this result as normal/abnor mal. POC Anion Gap (test 9 mmol/L 10-20 L code = 86768) POC BUN (test code = 22 mg/dL - 6299-2) POC Crea (test code 1.5 mg/dL 0.6-1.3 H Medicati ons, = 40225-1) especially hydroxyurea or supplements, tovar ch as ascorbate, can interfere with test results causing a falsely and significantly h igher result than exp ected. If a problem is suspected with a patient's resul t, a sample should b e sent to the laborato for confirmatory te sting. Method descript ion: The i-STAT is a n analyzer used f or in vitro quantific ation of various anal ytes in whole blood. The device uses a s richard disposable cart ridge which contains microfabricated sensors, a calibration [employer], fluidics system , and a waste chamber . Each test cartridge contains chemic ally sensitive biose nsors on a [email or web address] ip that are config ured to perform spec ific tests. The microfabricated sensors measure analyte concent ration by an electroch emical assay. POC EGFR (test code 50 See_Comment L The eGFR cr is = 88719) calculated with the 2020 CKD-EPI creatinine equa tion using creatinin e, patient's age, and sex for adults 18 years of age an d older. Other fa ctors, especially musc le mass, may affec t accuracy and ne ed to be considered.Acco rding to the Kidney Disease: Improv ing Global Outcomes (KDIGO) CKD Wor k Group 2012 Clin ical Practice Guidel ine, chronic kidney disease (CKD) i s defined as the abnormalities o f kidney structur e or function, prese nt for more than 3 mon ths, with implicatio ns for health. CKD mariela uld be classified by fran veloz, GFR category, a nd albuminuria cat egory. KDIGO guideline s provide the fol lowing GFR categoriesS tage Description GFR mL/min/1.73 m2G 1* Normal or high >= 90G2* Mildly decreased 60-89 G3a Mildly to moder ately decreased 45-59 G3b Moderately to severely decrea sed 30-44G4 Severel y decreased 15-29 G5 Kidney failure <15*In the absence of evidence of kid amalia damage, neither G1 nor G2 fulfill criteria for CK D. [Automated mess age] The system Exhbit generated this result transmitted ref erence range: >=60 mL/min/1.73 sq. m. The reference r sam was not used to interpret this result as normal/abnor mal. POC Glucose (test 101 mg/dL 70-99 H Medication s, code = 2339-0) especially hydroxyurea, ca n interfere with test results causing a falsely and significantly h igher result than exp ected. If a problem is suspected with a patient's resul t, a sample should b e sent to the laborato for confirmatory te sting. POC Ion Ca (test 1.17 mmol/L 1.12-1.32 code = 1994) POC Sample Type Venous (test code = 6690) POC Clean Dev (test Yes code = 6672) Performing Lab (test MDA Main Main Ca mpus code = 14029) [facility] Cli nical Lab, [facility], [place] [address]; Stitching Machine Operator: Cyndy Ramirez MD Lab Interpretation Abnormal (test code = 67269-7) [facility] Test Item Value Reference Range Interpretation Comments aPTT (test code = 34.3 See_Comment H [Automate d message] 25745-1) The system Exhbit generated this result transmitted ref erence range: 22.8 - 3 4.2 second(s). The reference range was not used to int erpret this result as normal/abnormal . Lab Interpretation (test Abnormal code = 59738-9) [facility] 09:07[facility] Test Item Value Reference Range Interpretation Comments aPTT (test code = 34.3 See_Comment H [Automate d message] 23075-6) The system Exhbit generated this result transmitted ref erence range: 22.8 - 3 4.2 second(s). The reference range was not used to int erpret this result as normal/abnormal . Lab Interpretation (test Abnormal code = 70355-2) [facility] 09:07[facility] Test Item Value Reference Range Interpretation Comments aPTT (test code = 34.3 See_Comment H [Automate d message] 82025-7) The system Exhbit generated this result transmitted ref erence range: 22.8 - 3 4.2 second(s). The reference range was not used to int erpret this result as normal/abnormal . Lab Interpretation (test Abnormal code = 83966-6) [facility] with [id number] 09:07:34 Test Item Value Reference Range Interpretation Comments PT (test code = 5902-2) 15.2 See_Comment H [Au tomated message] The system Exhbit generated this result transmitted ref erence range: 11.9 - 1 4.1 second(s). The reference range was not used to int erpret this result as normal/abnormal . INR (test code = 6301-6) 1.20 0.89-1.10 H Lab Interpretation (test Abnormal code = 66727-5) [facility] with [id number] 09:07:34 Test Item Value Reference Range Interpretation Comments PT (test code = 5902-2) 15.2 See_Comment H [Au tomated message] The system Exhbit generated this result transmitted ref erence range: 11.9 - 1 4.1 second(s). The reference range was not used to int erpret this result as normal/abnormal . INR (test code = 6301-6) 1.20 0.89-1.10 H Lab Interpretation (test Abnormal code = 27738-1) [facility] Time with [id number] 09:07:34 Test Item Value Reference Range Interpretation Comments PT (test code = 5902-2) 15.2 See_Comment H [Au tomated message] The system Exhbit generated this result transmitted ref erence range: 11.9 - 1 4.1 second(s). The reference range was not used to int erpret this result as normal/abnormal . INR (test code = 6301-6) 1.20 0.89-1.10 H Lab Interpretation (test Abnormal code = 88849-2) [facility] 09:07:32 Test Item Value Reference Range Interpretation Comments Fibrinogen (test code = 3255-7) 559 mg/dL 214-503 H Lab Interpretation (test code = Abnormal 85770-5) [facility] 09:07:32 Test Item Value Reference Range Interpretation Comments Fibrinogen (test code = 3255-7) 559 mg/dL 214-503 H Lab Interpretation (test code = Abnormal 35552-1) [facility] 09:07:32 Test Item Value Reference Range Interpretation Comments Fibrinogen (test code = 3255-7) 559 mg/dL 214-503 H Lab Interpretation (test code = Abnormal 83842-2) [facility] [id number] 09:07:31 Test Item Value Reference Range Interpretation Comments D-Dimer (test code = 1.67 See_Comment H [place] [address]-0) exclusion of ve nous thromboembolism is <0.51 mcg/mL FEUs (fi brinogen equivalent unit s). [Automated mess age] The system which ge nerated this result tra nsmitted reference range : 0.10 - 0.50 mcg/ml FEU . The reference range was not used to interpr et this result as normal/abnormal . Lab Interpretation Abnormal (test code = 40305-9) [facility] [id number] 09:07:31 Test Item Value Reference Range Interpretation Comments D-Dimer (test code = 1.67 See_Comment H [place] [address]-8) exclusion of ve nous thromboembolism is <0.51 mcg/mL FEUs (fi brinogen equivalent unit s). [Automated mess age] The system which ge nerated this result tra nsmitted reference range : 0.10 - 0.50 mcg/ml FEU . The reference range was not used to interpr et this result as normal/abnormal . Lab Interpretation Abnormal (test code = 37267-0) [facility] [id number] 09:07:31 Test Item Value Reference Range Interpretation Comments D-Dimer (test code = 1.67 See_Comment H [place] [address]-4) exclusion of ve nous thromboembolism is <0.51 mcg/mL FEUs (fi brinogen equivalent unit s). [Automated mess age] The system which ge nerated this result tra nsmitted reference range : 0.10 - 0.50 mcg/ml FEU . The reference range was not used to interpr et this result as normal/abnormal . Lab Interpretation Abnormal (test code = 62973-3) [facility] VBG+[id number] 08:32:57 Test Item Value Reference Range Interpretation Comments POC VB pH (test 7.36 7.31-7.41 code = 2746-6) POC VB pCO2 (test 46 See_Comment [Automate d message] code = 2020-) The system Reconnex generated this result transmitted ref erence range: 41 - 51 mmHg. The reference r sam was not used to interpret this result as normal/abnor mal. POC VB pO2 (test 28 mmHg code = 2705-2) POC VB TCO2 (test 27 See_Comment [Automate d message] code = 2026-) The system Reconnex generated this result transmitted ref erence range: 24 - 29 mEq/L. The reference r sam was not used to interpret this result as normal/abnor mal. POC VB Bicarb 26 mmol/L 23-28 (test code = 82774-4) POC VB Base Ex 0 mmol/L -2-3 (test code = 1927-3) POC VB O2 Sat 49 % (test code = 2711-0) POC VB LAC (test 1.7 mmol/L 0.9-1.7 Method desc ription: code = 2519-7) The i-STAT is an analyzer used f or in vitro quantific ation of various anal ytes in whole blood. Th e device uses a s richard disposable cart ridge which contains microfabricated sensors, a rosanne bration solution, fluid ics system, and a w aste chamber. Each t est cartridge conta ins chemically sens itive biosensors on a silicon chip at are configured to p erform specific tests. The microfabricated sensors measure analyte concent ration by an electroch emical assay. POC Sample Type Venous (test code = 6690) POC Clean Dev Yes (test code = 6672) Performing Lab [facility] (test code = [facility] [address]) Clinical Lab, [address] [facility], [place], [place] [address]; Stitching Machine Operator: Cyndy Ramirez MD [facility] VBG+[id number] 08:32:57 Test Item Value Reference Range Interpretation Comments POC VB pH (test 7.36 7.31-7.41 code = 2746-6) POC VB pCO2 (test 46 See_Comment [Automate d message] code = 2020-07) The system Reconnex generated this result transmitted ref erence range: 41 - 51 mmHg. The reference r sam was not used to interpret this result as normal/abnor mal. POC VB pO2 (test 28 mmHg code = 2705-2) POC VB TCO2 (test 27 See_Comment [Automate d message] code = 2026-04) The system cloudswave generated this result transmitted ref erence range: 24 - 29 mEq/L. The reference r sam was not used to interpret this result as normal/abnor mal. POC VB Bicarb 26 mmol/L 23-28 (test code = 94754-1) POC VB Base Ex 0 mmol/L -2-3 (test code = 1927-3) POC VB O2 Sat 49 % (test code = 2711-0) POC VB LAC (test 1.7 mmol/L 0.9-1.7 Method desc ription: code = 2519-7) The i-STAT is an analyzer used f or in vitro quantific ation of various anal ytes in whole blood. e device uses a s richard disposable cart ridge which contains microfabricated sensors, a rosanne bration solution, fluid ics system, and a w aste chamber. Each t est cartridge conta ins chemically sens itive biosensors on a silicon chip at are configured to p erform specific tests. The microfabricated sensors measure analyte concent ration by an electroch emical assay. POC Sample Type Venous (test code = 6690) POC Clean Dev Yes (test code = 6672) Performing Lab [facility] (test code = [facility] [address]) Clinical Lab, [address] [facility], [place], [place] [address]; Stitching Machine Operator: Cyndy Ramirez MD [facility] MD [place] [facility] VBG+[id number] 08:32:57 Test Item Value Reference Range Interpretation Comments POC VB pH (test 7.36 7.31-7.41 code = 2746-6) POC VB pCO2 (test 46 See_Comment [Automate d message] code = 2020-07) The system Reconnex generated this result transmitted ref erence range: 41 - 51 mmHg. The reference r sam was not used to interpret this result as normal/abnor mal. POC VB pO2 (test 28 mmHg code = 2705-2) POC VB TCO2 (test 27 See_Comment [Automate d message] code = 2026-04) The system Reconnex generated this result transmitted ref erence range: 24 - 29 mEq/L. The reference r sam was not used to interpret this result as normal/abnor mal. POC VB Bicarb 26 mmol/L 23-28 (test code = 67251-2) POC VB Base Ex 0 mmol/L -2-3 (test code = 1927-3) POC VB O2 Sat 49 % (test code = 2711-0) POC VB LAC (test 1.7 mmol/L 0.9-1.7 Method desc ription: code = 2519-7) The i-STAT is an analyzer used f or in vitro quantific ation of various anal ytes in whole blood. Th e device uses a s richard disposable cart ridge which contains microfabricated sensors, a rosanne bration solution, fluid ics system, and a w aste chamber. Each t est cartridge conta ins chemically sens itive biosensors on a silicon chip th at are configured to p erform specific tests. The microfabricated sensors measure analyte concent ration by an electroch emical assay. POC Sample Type Venous (test code = 6690) POC Clean Dev Yes (test code = 6672) Performing Lab [facility] (test code = [facility] [address]) Clinical Lab, [address] [place] [address]; Stitching Machine Operator: Cyndy Ramirez MD [facility] Glucose [id number] 08:28:17 Test Item Value Reference Interpretation Comments Range POC Glucose (test 106 mg/dL 70-99 H Notifie dRN code = 5651) NotifiedCapilla ry blood samples, e.g. obtained by fingerstick, ma y have inaccurate resu lts in patients with decreased perip heral blood flow. Met hod description: Al l results are beth sured using Electroch emistry test methodolog y. The glucose in the sample mixes with the reagents on the test strip. The reac tion produces an ramon ctric current. The am ount of current produce d is proportional to the glucose concent ration in the blood. PO Sample Type (test Capillary code = 9554) Performing Lab (test [facility] code = 91358) [facility] MD Lin adamson Clinical Lab, [address] [place] [address]; Stitching Machine Operator: Cyndy Ramirez MD Lab Interpretation Abnormal (test code = 23346-1) [facility] Glucose [id number] 08:28:17 Test Item Value Reference Interpretation Comments Range POC Glucose (test 106 mg/dL 70-99 H MD Granda dRN code = 5651) NotifiedCapilla ry blood samples, e.g. obtained by fingerstick, ma y have inaccurate resu lts in patients with decreased perip heral blood flow. Met hod description: Al l results are beth sured using Electroch emistry test methodolog y. The glucose in the sample mixes with the reagents on the test strip. The reac tion produces an ramon ctric current. The am ount of current produce d is proportional to the glucose concent ration in the blood. PO Sample Type (test Capillary code = 9554) Performing Lab (test [facility] code = 01646) [facility] MD Lin ad[facility]on Clinical [facility], [address] [place] [address] 30; Stitching Machine Operator: Cyndy Ramirez MD Lab Interpretation Abnormal (test code = 46201-0) [facility] Glucose [id number] 08:28:17 Test Item Value Reference Interpretation Comments Range POC Glucose (test 106 mg/dL 70-99 H Notifarielle dRN code = 5651) NotifiedCapilla ry blood samples, e.g. obtained by fingerstick, ma y have inaccurate resu lts in patients with decreased perip heral blood flow. Met hod description: Al l results are beth sured using Electroch emistry test methodolog y. The glucose in the sample mixes with the reagents on the test strip. The reac tion produces an ramon ctric current. The am ount of current produce d is proportional to the glucose concent ration in the blood. PO Sample Type (test Capillary code = 9554) Performing Lab (test [facility] code = 33590) [facility], [address] [place] [address] 30; Stitching Machine Operator: Cyndy Ramirez MD Lab Interpretation Abnormal (test code = 70225-0) [facility] Glucose [id number] 08:28:17 Test Item Value Reference Interpretation Comments Range POC Glucose (test 106 mg/dL 70-99 H MD Granda dRN code = 5651) NotifiedCapilla ry blood samples, e.g. obtained by fingerstick, ma y have inaccurate resu lts in patients with decreased perip heral blood flow. Met hod description: Al l results are beth sured using Electroch emistry test methodolog y. The glucose in the sample mixes with the reagents on the test strip. The reac tion produces an ramon ctric current. The am ount of current produce d is proportional to the glucose concent ration in the blood. PO Sample Type (test Capillary code = 9554) Performing Lab (test [facility] code = 81881) [facility] Lin ad[facility]on Clinical [facility], [address] [place] [address] 770 30; Stitching Machine Operator: Cyndy Ramirez MD Lab Interpretation Abnormal (test code = 27506-5) [facility] Glucose [id number] 08:28:17 Test Item Value Reference Interpretation Comments Range POC Glucose (test 106 mg/dL 70-99 H MD Granda dRN code = 5651) NotifiedCapilla ry blood samples, e.g. obtained by fingerstick, ma y have inaccurate resu lts in patients with decreased perip heral blood flow. Met hod description: Al l results are beth sured using Electroch emistry test methodolog y. The glucose in the sample mixes with the reagents on the test strip. The reac tion produces an ramon ctric current. The am ount of current produce d is proportional to the glucose concent ration in the blood. PO Sample Type (test Capillary code = 9554) Performing Lab (test [facility] code = 90417) [facility] MD Lin adamson Clinical Lab, [address] [place] [address] 30; Stitching Machine Operator: Cyndy Ramirez MD Lab Interpretation Abnormal (test code = 18945-8) [facility] Glucose [id number] 08:28:17 Test Item Value Reference Interpretation Comments Range POC Glucose (test 106 mg/dL 70-99 H MD Granda dRN code = 5651) NotifiedCapilla ry blood samples, e.g. obtained by fingerstick, ma y have inaccurate resu lts in patients with decreased perip heral blood flow. Met hod description: Al l results are beth sured using Electroch emistry test methodolog y. The glucose in the sample mixes with the reagents on the test strip. The reac tion produces an ramon ctric current. The am ount of current produce d is proportional to the glucose concent ration in the blood. PO Sample Type (test Capillary code = 9554) Performing Lab (test [facility] code = 35618) [facility] MD Lni adamson Clinical Lab, [address] [place] [address] 30; Stitching Machine Operator: Cyndy Ramirez MD Lab Interpretation Abnormal (test code = 01572-0) [facility] Glucose [id number] 08:28:17 Test Item Value Reference Interpretation Comments Range POC Glucose (test 106 mg/dL 70-99 H Notifie dRN code = 5651) NotifiedCapilla ry blood samples, e.g. obtained by fingerstick, ma y have inaccurate resu lts in patients with decreased perip heral blood flow. Met hod description: Al l results are beth sured using Electroch emistry test methodolog y. The glucose in the sample mixes with the reagents on the test strip. The reac tion produces an ramon ctric current. The am ount of current produce d is proportional to the glucose concent ration in the blood. PO Sample Type (test Capillary code = 9554) Performing Lab (test [facility] code = 49188) [facility] MD Lin adamson Clinical Lab, [address] [place] [address] 30; Stitching Machine Operator: Cyndy Ramirez MD Lab Interpretation Abnormal (test code = 46385-2) [facility] Glucose [id number] 08:28:17 Test Item Value Reference Interpretation Comments Range POC Glucose (test 106 mg/dL 70-99 H MD Granda dRN code = 5651) NotifiedCapilla ry blood samples, e.g. obtained by fingerstick, ma y have inaccurate resu lts in patients with decreased perip heral blood flow. Met hod description: Al l results are beth sured using Electroch emistry test methodolog y. The glucose in the sample mixes with the reagents on the test strip. The reac tion produces an ramon ctric current. The am ount of current produce d is proportional to the glucose concent ration in the blood. PO Sample Type (test Capillary code = 9554) Performing Lab (test [facility] code = 78673) [facility] MD Lin adamson Clinical Lab, [address] [place] [address] 7[address] 30; Stitching Machine Operator: Cyndy Ramirez MD Lab Interpretation Abnormal (test code = 94403-5) [facility] 09:[facility]:06 Test Item Value Reference Range Interpretation Comments Lipase Lvl (test code = 3040-3) 16 U/L 13-60 [facility] 09:05:06 Test Item Value Reference Range Interpretation Comments Lipase Lvl (test code = 3040-3) 16 U/L [facility] 09:05:06 Test Item Value Reference Range Interpretation Comments Lipase Lvl (test code = 3040-3) 16 U/L [facility] 09:05:06 Test Item Value Reference Range Interpretation Comments Lipase Lvl (test code = 3040-3) 16 U/L [facility] 09:05:06 Test Item Value Reference Range Interpretation Comments Lipase Lvl (test code = 3040-3) 16 U/L [facility]-19 09:05:06 Test Item Value Reference Range Interpretation Comments Lipase Lvl (test code = 3040-3) 16 U/L [facility] 09:05:06 Test Item Value Reference Range Interpretation Comments Lipase Lvl (test code = 3040-3) 16 U/L [facility] 09:05:06 Test Item Value Reference Range Interpretation Comments Lipase Lvl (test code = 3040-3) 16 U/L [facility]20[facility]-19 09:05:05 Test Item Value Reference Range Interpretation Comments Amylase Lvl (test code = 1798-8) 43 U/L [facility]-19 09:05:05 Test Item Value Reference Range Interpretation Comments Amylase Lvl (test code = 1798-8) 43 U/L [facility]-19 09:05:05 Test Item Value Reference Range Interpretation Comments Amylase Lvl (test code = 1798-8) 43 U/L [facility]-19 09:05:05 Test Item Value Reference Range Interpretation Comments Amylase Lvl (test code = 1798-8) 43 U/L [facility]20[facility]-19 09:05:05 Test Item Value Reference Range Interpretation Comments Amylase Lvl (test code = 1798-8) 43 U/L 28-100 [facility]20[facility]-11-19 09:05:05 Test Item Value Reference Range Interpretation Comments Amylase Lvl (test code = 1798-8) 43 U/L 28-100 [facility]2022-11-19 09:05:05 Test Item Value Reference Range Interpretation Comments Amylase Lvl (test code = 1798-8) 43 U/L 28-100 [facility]20[facility]-19 09:05:05 Test Item Value Reference Range Interpretation Comments Amylase Lvl (test code = 1798-8) 43 U/L 28-100 [facility]AF[facility] Culture w/[id number] 05:07:58 Test Item Value Reference Range Interpretation Comments Final Report (test No acid fast bacteria code = 8488) isolated at 8 weeks. Path Review - AFB Culture yield may be (test code = 8477) affected by sample quality, prior treatment, and transportation conditions....The results have been reviewed and electronically signed by Pathologist:Matt Antonio MD, PhD #[id number] Acid Fast Stain No Acid Fast Bacilli seen Truant (test code = in direct smear 64946-1) JOAQUIN (test code = Abdominal Abscess JOAQUIN) DrainCultures are held [address] [facility] Culture w/[id number] 05:07:58 Test Item Value Reference Range Interpretation Comments Final Report (test No acid fast bacteria code = 8488) isolated at 8 weeks. Path Review - AFB Culture yield may be (test code = 8477) affected by sample quality, prior treatment, and transportation conditions....The results have been reviewed and electronically signed by Pathologist:Matt Antonio MD, PhD #[id number] Acid Fast Stain No Acid Fast Bacilli seen Truant (test code = in direct smear 06446-3) JOAQUIN (test code = Abdominal Abscess JOAQUIN) DrainCultures are held [address] [facility] w/[id number] 05:07:58 Test Item Value Reference Range Interpretation Comments Final Report (test No acid fast bacteria code = 8488) isolated at 8 weeks. Path Review - AFB Culture yield may be (test code = 8477) affected by sample quality, prior treatment, and transportation conditions....The results have been reviewed and electronically signed by Pathologist:Matt Antonio MD, PhD #[id number] Acid Fast Stain No Acid Fast Bacilli seen Truant (test code = in direct smear 27520-4) JOAQUIN (test code = Abdominal Abscess JOAQUIN) DrainCultures are held [address] [facility] w/[id number] 05:07:58 Test Item Value Reference Range Interpretation Comments Final Report (test No acid fast bacteria code = 8488) isolated at 8 weeks. Path Review - AFB Culture yield may be (test code = 8477) affected by sample quality, prior treatment, and transportation conditions....The results have been reviewed and electronically signed by Pathologist:Matt Antonio MD, PhD #[id number] Acid Fast Stain No Acid Fast Bacilli seen Truant (test code = in direct smear 56044-7) JOAQUIN (test code = Abdominal Abscess JOAQUIN) DrainCultures are held [address] [facility] Culture w/[id number] 05:07:58 Test Item Value Reference Range Interpretation Comments Final Report (test No acid fast bacteria code = 8488) isolated at 8 weeks. Path Review - AFB Culture yield may be (test code = 8477) affected by sample quality, prior treatment, and transportation conditions....The results have been reviewed and electronically signed by Pathologist:Matt Antonio MD, PhD #[id number] Acid Fast Stain No Acid Fast Bacilli seen Truant (test code = in direct smear 70139-6) JOAQUIN (test code = Abdominal Abscess JOAQUIN) DrainCultures are held [address] [facility] w/[id number] 05:07:58 Test Item Value Reference Range Interpretation Comments Final Report (test No acid fast bacteria code = 8488) isolated at 8 weeks. Path Review - AFB Culture yield may be (test code = 8477) affected by sample quality, prior treatment, and transportation conditions....The results have been reviewed and electronically signed by Pathologist:Matt Antonio MD, PhD #[id number] Acid Fast Stain No Acid Fast Bacilli seen Truant (test code = in direct smear 08187-3) JOAQUIN (test code = Abdominal Abscess JOAQUIN) DrainCultures are held [address] [facility] w/[id number] 05:07:58 Test Item Value Reference Range Interpretation Comments Final Report (test No acid fast bacteria code = 8488) isolated at 8 weeks. Path Review - AFB Culture yield may be (test code = 8477) affected by sample quality, prior treatment, and transportation conditions....The results have been reviewed and electronically signed by Pathologist:Matt Antonio MD, PhD #[id number] Acid Fast Stain No Acid Fast Bacilli seen Truant (test code = in direct smear 43134-7) JOAQUIN (test code = Abdominal Abscess JOAQUIN) DrainCultures are held [address] [facility] w/[id number] 05:07:58 Test Item Value Reference Range Interpretation Comments Final Report (test No acid fast bacteria code = 8488) isolated at 8 weeks. Path Review - AFB Culture yield may be (test code = 8477) affected by sample quality, prior treatment, and transportation conditions....The results have been reviewed and electronically signed by Pathologist:Matt Antonio MD, PhD #[id number] Acid Fast Stain No Acid Fast Bacilli seen Truant (test code = in direct smear 50976-0) JOAQUIN (test code = Abdominal Abscess JOAQUIN) DrainCultures are held [address] [facility] CenterHBV DNA [id number] 22:59:28 Test Item Value Reference Range Interpretation Comments HBV DNA [facility] Undetected Undetected IU/mL Result in log IU/mL is (test code = Undetected. 84966-3) ----ADDITIO NAL INFORMATION---- ----The quantif ication range of this a ssay is 10 to1,000,000,000 IU/mL (1.00 log to 9. 00 log IU/mL). Testing was performed using the lucas HBV test ([employer] with the lucas 6800 System. Test Pe rformed by:[place] [id number]Lab Director: Jose L Nieto M.D. Ph. D.; CLIA# [id number] [facility] Center[facility] DNA [id number] 22:59:28 Test Item Value Reference Range Interpretation Comments HBV DNA [facility] Undetected Undetected IU/mL Result in log IU/mL is (test code = Undetected. 60769-4) ----ADDITIO NAL INFORMATION---- ----The quantif ication range of this a ssay is 10 to1,000,000,000 IU/mL (1.00 log to 9. 00 log IU/mL). Testing was performed using the lucas HBV test ([employer] with the lucas 6800 System. Test Pe rformed by:[address] 5 [address]Lab Director: Jose L Nieto M.D. Ph. D.; CLIA# [id number] [facility] [id number] 22:59:28 Test Item Value Reference Range Interpretation Comments HBV DNA [facility] Undetected Undetected IU/mL Result in log IU/mL is (test code = Undetected. 39850-1) ----ADDITIO NAL INFORMATION---- ----The quantif ication range of this a ssay is 10 to1,000,000,000 IU/mL (1.00 log to 9. 00 log IU/mL). Testing was performed using the lucas HBV test ([employer] with the lucas 6800 System. Test Pe rformed by:[place] [id number]Lab Director: Jose L Nieto M.D. Ph. D.; CLIA# [id number] [facility] [id number] 22:59:28 Test Item Value Reference Range Interpretation Comments HBV DNA [facility] Undetected Undetected IU/mL Result in log IU/mL is (test code = Undetected. 65950-6) ----ADDITIO NAL INFORMATION---- ----The quantif ication range of this a ssay is 10 to1,000,000,000 IU/mL (1.00 log to 9. 00 log IU/mL). Testing was performed using the lucas HBV test ([employer] with the lucas 6800 System. Test Pe rformed by:[place] [id number]Lab Director: Jose L Nieto M.D. Ph. D.; CLIA# [id number] [facility] CenterFungus Culture w/[id number] 21:23:05 Test Item Value Reference Range Interpretation Comments Final Report (test No fungus isolated at 4 code = 8488) weeks. Path Review - Fungus Culture yield may be (test code = 8479) affected by sample quality, prior treatment, and transportation conditions. The results have been reviewed and electronically signed by Pathologist:Kwesi Tristan MD, PhD #[id number] Calcofluor Stain No Fungi seen in direct (test code = 658-5) smearTest performed by fluorescent stain methodology. JOAQUIN (test code = JOAQUIN) Abdominal Abscess DrainCultures are held for [address] [facility] CenterFungus Culture w/[id number] 21:23:05 Test Item Value Reference Range Interpretation Comments Final Report (test No fungus isolated at 4 code = 8488) weeks. Path Review - Fungus Culture yield may be (test code = 8479) affected by sample quality, prior treatment, and transportation conditions. The results have been reviewed and electronically signed by Pathologist:Kwesi Tristan MD, PhD #[id number] Calcofluor Stain No Fungi seen in direct (test code = 658-5) smearTest performed by fluorescent stain methodology. JOAQUIN (test code = JOAQUIN) Abdominal Abscess DrainCultures are held for [address] [facility] CenterF[facility] Culture w/[id number] 21:23:05 Test Item Value Reference Range Interpretation Comments Final Report (test No fungus isolated at 4 code = 8488) weeks. Path Review - Fungus Culture yield may be (test code = 8479) affected by sample quality, prior treatment, and transportation conditions. The results have been reviewed and electronically signed by Pathologist:Kwesi Tristan MD, PhD #[id number] Calcofluor Stain No Fungi seen in direct (test code = 658-5) smearTest performed by fluorescent stain methodology. JOAQUIN (test code = JOAQUIN) Abdominal Abscess DrainCultures are held for [address] [facility] CenterF[facility] Culture w/[id number] 21:23:05 Test Item Value Reference Range Interpretation Comments Final Report (test No fungus isolated at 4 code = 8488) weeks. Path Review - Fungus Culture yield may be (test code = 8479) affected by sample quality, prior treatment, and transportation conditions. The results have been reviewed and electronically signed by Pathologist:Kwesi Tristan MD, PhD #[id number] Calcofluor Stain No Fungi seen in direct (test code = 658-5) smearTest performed by fluorescent stain methodology. JOAQUIN (test code = JOAQUIN) Abdominal Abscess DrainCultures are held for [address] [facility] CenterF[facility] Culture w/[id number] 21:23:05 Test Item Value Reference Range Interpretation Comments Final Report (test No fungus isolated at 4 code = 8488) weeks. Path Review - Fungus Culture yield may be (test code = 8479) affected by sample quality, prior treatment, and transportation conditions. The results have been reviewed and electronically signed by Pathologist:Kwesi Tristan MD, PhD #[id number] Calcofluor Stain No Fungi seen in direct (test code = 658-5) smearTest performed by fluorescent stain methodology. JOAQUIN (test code = JOAQUIN) Abdominal Abscess DrainCultures are held for [address] [facility] CenterF[facility] Culture w/[id number] 21:23:05 Test Item Value Reference Range Interpretation Comments Final Report (test No fungus isolated at 4 code = 8488) weeks. Path Review - Fungus Culture yield may be (test code = 8479) affected by sample quality, prior treatment, and transportation conditions. The results have been reviewed and electronically signed by Pathologist:Kwesi Tristan MD, PhD #[id number] Calcofluor Stain No Fungi seen in direct (test code = 658-5) smearTest performed by fluorescent stain methodology. JOAQUIN (test code = JOAQUIN) Abdominal Abscess DrainCultures are held for [address] [facility] CenterF[facility] Culture w/[id number] 21:23:05 Test Item Value Reference Range Interpretation Comments Final Report (test No fungus isolated at 4 code = 8488) weeks. Path Review - Fungus Culture yield may be (test code = 8479) affected by sample quality, prior treatment, and transportation conditions. The results have been reviewed and electronically signed by Pathologist:Kwesi Tristan MD, PhD #[id number] Calcofluor Stain No Fungi seen in direct (test code = 658-5) smearTest performed by fluorescent stain methodology. JOAQUIN (test code = JOAQUIN) Abdominal Abscess DrainCultures are held for [address] [facility] CenterF[facility] w/[id number] 21:23:05 Test Item Value Reference Range Interpretation Comments Final Report (test No fungus isolated at 4 code = 8488) weeks. Path Review - Fungus Culture yield may be (test code = 8479) affected by sample quality, prior treatment, and transportation conditions. The results have been reviewed and electronically signed by Pathologist:Kwesi Tristan MD, PhD #[id number] Calcofluor Stain No Fungi seen in direct (test code = 658-5) smearTest performed by fluorescent stain methodology. JOAQUIN (test code = JOAQUIN) Abdominal Abscess DrainCultures are held for 4 weeks before finalization. [facility]COVID-19 (SARS-CoV-2)[id number]-[id number] 02:52:27 Test Item Value Reference Range Interpretation Comments COVID19 Not Detected Not Detected (SARS-CoV-2) (test code = 37412-9) COVID19 SARS Inpatient Indication (test Admission code = 12843) Covid 19 Comment See Note The lucas S ARS-CoV-2 (test code = [place] [address]) use on the jerry s Mari System is a andre l-time RT-PCR assay in tended for the qualita tive detection of SARS-CoV-2 (COV ID-19) viral RNA in nasopharyngeal swabs from either individuals magdalena pected of COVID-19 by their healthcare prov ider or from any individual, inc luding individuals wit hout symptoms or oth er reasons to susp ect COVID-19. A fac t sheet for patie nts provided by the sample wrapper ([employer]) can be rev iewed at: https://www.EyeJot .gov/m edia/294168/areli nload. A fact sheet fo r Health Care pro viders is provided by the sample wrapper ([employer]) and can be reviewed at: https://www.EyeJot .gov/Notch edia/473969/areli nload Results must be interpreted wit hin the context of all relevant clinic al and laboratory find ings and should not form the sole basis for a diagnosis or treatment decis ion. Positive result s do not rule out bacterial infec tion or co-infection with other viruses. Negative result s do not preclude SARS-CoV-2 infe ction and must be com bined with clinical observations, p atient history, and/or epidemiological information. Th is assay has been authorized by t [facility] for use only un kasie Emergency Use Authorization ( EUA) in laboratories that have been CLIA-certified to perform moderate-comple xity and high-comple xity tests. The Microbiology Laboratory at [facility], CLIA Accreditation #[id number] and CAP Accreditation #[id number], verif ied the performance characteristics of this assay. Int ernal controls are us ed to monitor all sta ges of the test proces s. [facility]buryCOVID-19 (SARS-CoV-2)[id number] 02:52:27 Test Item Value Reference Range Interpretation Comments COVID19 Not Detected Not Detected (SARS-CoV-2) (test code = 36939-0) COVID19 SARS Inpatient Indication (test Admission code = 11154) Covid 19 Comment See Note The lucas S ARS-CoV-2 (test code = nucleic [place] [address]) use on the jerry s Mari System is a andre l-time RT-PCR assay in tended for the qualita tive detection of SARS-CoV-2 (COV ID-19) viral RNA in nasopharyngeal swabs from either individuals magdalena pected of COVID-19 by their healthcare prov ider or from any individual, inc luding individuals wit hout symptoms or oth er reasons to susp ect COVID-19. A fac t sheet for patie nts provided by the sample wrapper ([employer], [employer]) can be rev iewed at: https://www.fda .gov/m edia/925585/areli nload. A fact sheet fo r Health Care pro viders is provided by the sample wrapper ([employer]) and can be reviewed at: https://www.EyeJot .gov/m edia/194003/areli nload Results must be interpreted wit hin the context of all relevant clinic al and laboratory find ings and should not form the sole basis for a diagnosis or treatment decis ion. Positive result s do not rule out bacterial infec tion or co-infection with other viruses. Negative result s do not preclude SARS-CoV-2 infe ction and must be com bined with clinical observations, p atient history, and/or epidemiological information. Th is assay has been authorized by t FDA for use only un kasie Emergency Use Authorization ( EUA) in laboratories that have been CLIA-certified to perform moderate-comple xity and high-comple xity tests. The [facility] at [facility], CLIA Accreditation #[id number] and CAP Accreditation #[id number], verif ied the performance characteristics of this assay. Int ernal controls are us ed to monitor all sta ges of the test proces s. [facility][id number] 02:52:27 Test Item Value Reference Range Interpretation Comments COVID19 Not Detected Not Detected (SARS-CoV-2) (test code = 90363-0) COVID19 SARS Inpatient Indication (test Admission code = 73413) Covid 19 Comment See Note The ulcas S ARS-CoV-2 (test code = [place] [address]) use on the jerry s Mari System is a andre l-time RT-PCR assay in tended for the qualita tive detection of SARS-CoV-2 (COV ID-19) viral RNA in nasopharyngeal swabs from either individuals magdalena pected of COVID-19 by their healthcare prov ider or from any individual, inc luding individuals wit hout symptoms or oth er reasons to susp ect COVID-19. A fac t sheet for patie nts provided by the sample wrapper ([employer], [employer]) can be rev iewed at: https://www.fda .gov/m edia/148192/areli nload. A fact sheet fo r Health Care pro viders is provided by the sample wrapper ([employer]) and can be reviewed at: https://www.fda .gov/m edia/098710/areli nload Results must be interpreted wit hin the context of all relevant clinic al and laboratory find ings and should not form the sole basis for a diagnosis or treatment decis ion. Positive result s do not rule out bacterial infec tion or co-infection with other viruses. Negative result s do not preclude SARS-CoV-2 infe ction and must be com bined with clinical observations, p atient history, and/or epidemiological information. Th is assay has been authorized by t FDA for use only un kasie Emergency Use Authorization ( EUA) in laboratories that have been CLIA-certified to perform moderate-comple xity and high-comple xity tests. The [facility] at [facility], CLIA Accreditation #[id number] and CAP Accreditation #[id number], verif ied the performance characteristics of this assay. Int ernal controls are us ed to monitor all sta ges of the test proces s. [facility] ([facility])[id number] 02:52:27 Test Item Value Reference Range Interpretation Comments COVID19 Not Detected Not Detected (SARS-CoV-2) (test code = 47865-4) COVID19 SARS Inpatient Indication (test Admission code = 99109) Covid 19 Comment See Note The lucas S ARS-CoV-2 (test code = [place] [address]) use on the jerry s Mari System is a andre l-time RT-PCR assay in tended for the qualita tive detection of SARS-CoV-2 (COV ID-19) viral RNA in nasopharyngeal swabs from either individuals magdalena pected of COVID-19 by their healthcare prov ider or from any individual, inc luding individuals wit hout symptoms or oth er reasons to susp ect COVID-19. A fac t sheet for patie nts provided by the sample wrapper ([employer]) can be rev iewed at: https://www.fda .gov/m edia/959547/areli nload. A fact sheet fo r Health Care pro viders is provided by the sample wrapper ([employer]) and can be reviewed at: https://www.fda .gov/m edia/925414/areli nload Results must be interpreted wit hin the context of all relevant clinic al and laboratory find ings and should not form the sole basis for a diagnosis or treatment decis ion. Positive result s do not rule out bacterial infec tion or co-infection with other viruses. Negative result s do not preclude SARS-CoV-2 infe ction and must be com bined with clinical observations, p atient history, and/or epidemiological information. Th is assay has been authorized by t FDA for use only un kasie Emergency Use Authorization ( EUA) in laboratories that have been CLIA-certified to perform moderate-comple xity and high-comple xity tests. The [facility] at [facility], CLIA Accreditation #[id number] and CAP Accreditation #[id number], verif ied the performance characteristics of this assay. Int ernal controls are us ed to monitor all sta ges of the test proces s. [facility] ([facility]-CoV-2)[id number] 02:52:27 Test Item Value Reference Range Interpretation Comments COVID19 Not Detected Not Detected (SARS-CoV-2) (test code = 71667-7) COVID19 SARS Inpatient Indication (test Admission code = 30924) Covid 19 Comment See Note The lucas S ARS-CoV-2 (test code = [place] [address]) use on the jerry s Mari System is a ander l-time RT-PCR assay in the [facility] for the qualita tive detection of SARS-CoV-2 (COV ID-19) viral RNA in nasopharyngeal swabs from either individuals magdalena pected of COVID-19 by their healthcare prov ider or from any individual, inc luding individuals wit hout symptoms or oth er reasons to susp ect COVID-19. A fac t sheet for patie nts provided by the sample wrapper ([employer], [employer]) can be rev iewed at: https://www.fda .gov/m edia/498131/areli nload. A fact sheet fo r Health Care pro viders is provided by the sample wrapper ([employer], [employer]) and can be reviewed at: https://www.fda .gov/m edia/838635/areli nload Results must be interpreted wit hin the context of all relevant clinic al and laboratory find ings and should not form the sole basis for a diagnosis or treatment decis ion. Positive result s do not rule out bacterial infec tion or co-infection with other viruses. Negative result s do not preclude SARS-CoV-2 infe ction and must be com bined with clinical observations, p atient history, and/or epidemiological information. Th is assay has been authorized by t FDA for use only un kasie Emergency Use Authorization ( EUA) in laboratories that have been CLIA-certified to perform moderate-comple xity and high-comple xity tests. [facility] at [facility], CLIA Accreditation #[id number] and CAP Accreditation #[id number], verif ied the performance characteristics of this assay. Int ernal controls are us ed to monitor all sta ges of the test proces s. [facility] ([facility]-CoV-2)[id number] 02:52:27 Test Item Value Reference Range Interpretation Comments COVID19 Not Detected Not Detected (SARS-CoV-2) (test code = 06454-5) COVID19 SARS Inpatient Indication (test Admission code = 36438) Covid 19 Comment See Note The lucas S ARS-CoV-2 (test code = [place] [address]) use on the jerry s [employer] System is a andre l-time RT-PCR assay in tended for the qualita tive detection of SARS-CoV-2 (COV ID-19) viral RNA in nasopharyngeal swabs from either individuals magdalena pected of COVID-19 by their healthcare prov ider or from any individual, inc luding individuals wit hout symptoms or oth er reasons to susp ect COVID-19. A fac t sheet for patie nts provided by the sample wrapper ([employer], [employer]) can be rev iewed at: https://www.fda .gov/m edia/668268/areli nload. A fact sheet fo r Health Care pro viders is provided by the sample wrapper ([employer]) and can be reviewed at: https://www.fda .gov/m edia/194530/areli nload Results must be interpreted wit hin the context of all relevant clinic al and laboratory find ings and should not form the sole basis for a diagnosis or treatment decis ion. Positive result s do not rule out bacterial infec tion or co-infection with other viruses. Negative result s do not preclude SARS-CoV-2 infe ction and must be com bined with clinical observations, p atient history, and/or epidemiological information. Th is assay has been authorized by t FDA for use only un kasie Emergency Use Authorization ( EUA) in laboratories that have been CLIA-certified to perform moderate-comple xity and high-comple xity tests. [facility] at [facility], CLIA Accreditation #[id number] and CAP Accreditation #[id number], verif ied the performance characteristics of this assay. Int ernal controls are us ed to monitor all sta ges of the test proces s. [facility] ([facility])[id number] 02:52:27 Test Item Value Reference Range Interpretation Comments COVID19 Not Detected Not Detected (SARS-CoV-2) (test code = 55466-9) COVID19 SARS Inpatient Indication (test Admission code = 35747) Covid 19 Comment See Note The lucas S ARS-CoV-2 (test code = [place] [address]) use on the jerry s [employer] System is a andre l-time RT-PCR assay in tended for the qualita tive detection of SARS-CoV-2 (COV ID-19) viral RNA in nasopharyngeal swabs from either individuals magdalena pected of COVID-19 by their healthcare prov ider or from any individual, inc luding individuals wit hout symptoms or oth er reasons to susp ect COVID-19. A fac t sheet for patie nts provided by the sample wrapper ([employer]) can be rev iewed at: https://www.EyeJot .gov/m edia/158081/areli nload. A fact sheet fo r Health Care pro viders is provided by the sample wrapper ([employer]) and can be reviewed at: https://www.fda .gov/m edia/020441/areli nload Results must be interpreted wit hin the context of all relevant clinic al and laboratory find ings and should not form the sole basis for a diagnosis or treatment decis ion. Positive result s do not rule out bacterial infec tion or co-infection with other viruses. Negative result s do not preclude SARS-CoV-2 infe ction and must be com bined with clinical observations, p atient history, and/or epidemiological information. Th is assay has been authorized by t FDA for use only un kasie Emergency Use Authorization ( EUA) in laboratories that have been CLIA-certified to perform moderate-comple xity and high-comple xity tests. [facility] at [facility], CLIA Accreditation #[id number] and CAP Accreditation #[id number], verif ied the performance characteristics of this assay. Int ernal controls are us ed to monitor all sta ges of the test proces s. [facility] (SARS-CoV-2)[id number] 02:52:27 Test Item Value Reference Range Interpretation Comments COVID19 Not Detected Not Detected (SARS-CoV-2) (test code = 62727-2) COVID19 SARS Inpatient Indication (test Admission code = 80209) Covid 19 Comment See Note The lucas S ARS-CoV-2 (test code = [place] [address]) use on the jerry s [employer] System is a andre l-time RT-PCR assay in tended for the qualita tive detection of SARS-CoV-2 (COV ID-19) viral RNA in nasopharyngeal swabs from either individuals magdalena pected of COVID-19 by their healthcare prov ider or from any individual, inc luding individuals wit hout symptoms or oth er reasons to susp ect COVID-19. A fac t sheet for patie nts provided by the sample wrapper ([employer], [employer]) can be rev iewed at: https://www.EyeJot .gov/m edia/867102/areli nload. A fact sheet fo r Health Care pro viders is provided by the sample wrapper ([employer], [employer]) and can be reviewed at: https://www.fda .gov/m edia/053563/areli nload Results must be interpreted wit hin the context of all relevant clinic al and laboratory find ings and should not form the sole basis for a diagnosis or treatment decis ion. Positive result s do not rule out bacterial infec tion or co-infection with other viruses. Negative result s do not preclude SARS-CoV-2 infe ction and must be com bined with clinical observations, p atient history, and/or epidemiological information. Th is assay has been authorized by t FDA for use only un kasie Emergency Use Authorization ( EUA) in laboratories that have been CLIA-certified to perform moderate-comple xity and high-comple xity tests. [facility] at [facility], CLIA Accreditation #[id number] and CAP Accreditation #[id number], verif ied the performance characteristics of this assay. Int ernal controls are us ed to monitor all sta ges of the test proces s. [facility] [id number] 20:17:30 Test Item Value Reference Range Interpretation Comments Final Report (test No growth code = 8488) Path Review - The results have been Anaerobe (test code reviewed and = 8478) electronically signed by Pathologist:Kwesi Tristan MD, PhD #[id number] JOAQUIN (test code = Abdominal Abscess Drain JOAQUIN) [facility] [id number] 20:17:30 Test Item Value Reference Range Interpretation Comments Final Report (test No growth code = 8488) Path Review - The results have been Anaerobe (test code reviewed and = 8478) electronically signed by Pathologist:Kwesi Tristan MD, PhD #[id number] JOAQUIN (test code = Abdominal Abscess Drain JOAQUIN) [facility] [id number] 20:17:30 Test Item Value Reference Range Interpretation Comments Final Report (test No growth code = 8488) Path Review - The results have been Anaerobe (test code reviewed and = 8478) electronically signed by Pathologist:Kwesi Tristan MD, PhD #[id number] JOAQUIN (test code = Abdominal Abscess Drain JOAQUIN) [facility]2022-08-08 20:17:30 Test Item Value Reference Range Interpretation Comments Final Report (test No growth code = 8488) Path Review - The results have been Anaerobe (test code reviewed and = 8478) electronically signed by Pathologist:Kwesi Tristan MD, PhD #[id number] JOAQUIN (test code = Abdominal Abscess Drain JOAQUIN) [facility] [id number] 20:17:30 Test Item Value Reference Range Interpretation Comments Final Report (test No growth code = 8488) Path Review - The results have been Anaerobe (test code reviewed and = 8478) electronically signed by Pathologist:Kwesi Tristan MD, PhD #[id number] JOAQUIN (test code = Abdominal Abscess Drain JOAQUIN) [facility] [id number] 20:17:30 Test Item Value Reference Range Interpretation Comments Final Report (test No growth code = 8488) Path Review - The results have been Anaerobe (test code reviewed and = 8478) electronically signed by Pathologist:Kwesi Tristan MD, PhD #[id number] JOAQUIN (test code = Abdominal Abscess Drain JOAQUIN) [facility]2022-08-08 20:17:30 Test Item Value Reference Range Interpretation Comments Final Report (test No growth code = 8488) Path Review - The results have been Anaerobe (test code reviewed and = 8478) electronically signed by Pathologist:Kwesi Tristan MD, PhD #[id number] JOAQUIN (test code = Abdominal Abscess Drain JOAQUIN) [facility] [id number] 20:17:30 Test Item Value Reference Range Interpretation Comments Final Report (test No growth code = 8488) Path Review - The results have been Anaerobe (test code reviewed and = 8478) electronically signed by Pathologist:Kwesi Tristan MD, PhD #[id number] JOAQUIN (test code = Abdominal Abscess Drain JOAQUIN) [facility] St[facility] 2021-11-26 01:40:25 Test Item Value Reference Range Interpretation Comments Final Report (test No growth code = 8488) Path Review (test Immunity and antibiotic code = 8492) use may render culture negative. Ongoing infection requires repeat culture.The results have been reviewed and electronically signed by Pathologist:KAREL PABLO MD #[id number] Gram Stain Report No WBC's seen.No organisms (test code = seen. 09131-2) [facility] 2021-11-26 01:40:25 Test Item Value Reference Range Interpretation Comments Final Report (test No growth code = 8488) Path Review (test Immunity and antibiotic code = 8492) use may render culture negative. Ongoing infection requires repeat culture.The results have been reviewed and electronically signed by Pathologist:KAREL PABLO MD #[id number] Gram Stain Report No WBC's seen.No organisms (test code = seen. 44614-7) [facility]Gram Stain 2021-11-26 01:40:25 Test Item Value Reference Range Interpretation Comments Final Report (test No growth code = 8488) Path Review (test Immunity and antibiotic code = 8492) use may render culture negative. Ongoing infection requires repeat culture.The results have been reviewed and electronically signed by Pathologist:KAREL PABLO MD #[id number] Gram Stain Report No WBC's seen.No organisms (test code = seen. 89064-5) [facility]Gram St[facility] 2021-11-26 01:40:25 Test Item Value Reference Range Interpretation Comments Final Report (test No growth code = 8488) Path Review (test Immunity and antibiotic code = 8492) use may render culture negative. Ongoing infection requires repeat culture.The results have been reviewed and electronically signed by Pathologist:KAREL PABLO MD #[id number] Gram Stain Report No WBC's seen.No organisms (test code = seen. 35970-6) [facility]Gram [facility] 2021-11-26 01:40:25 Test Item Value Reference Range Interpretation Comments Final Report (test No growth code = 8488) Path Review (test Immunity and antibiotic code = 8492) use may render culture negative. Ongoing infection requires repeat culture.The results have been reviewed and electronically signed by Pathologist:KAREL PABLO MD #[id number] Gram Stain Report No WBC's seen.No organisms (test code = seen. 33568-7) [facility]Gram Stain 2021-11-26 01:40:25 Test Item Value Reference Range Interpretation Comments Final Report (test No growth code = 8488) Path Review (test Immunity and antibiotic code = 8492) use may render culture negative. Ongoing infection requires repeat culture.The results have been reviewed and electronically signed by Pathologist:KAREL PABLO MD #[id number] Gram Stain Report No WBC's seen.No organisms (test code = seen. 97263-7) [facility]Gram Stain 2021-11-26 01:40:25 Test Item Value Reference Range Interpretation Comments Final Report (test No growth code = 8488) Path Review (test Immunity and antibiotic code = 8492) use may render culture negative. Ongoing infection requires repeat culture.The results have been reviewed and electronically signed by Pathologist:KAREL PABLO MD #[id number] Gram Stain Report No WBC's seen.No organisms (test code = seen. 51165-6) [facility]Gram Stain 2021-11-26 01:40:25 Test Item Value Reference Range Interpretation Comments Final Report (test No growth code = 8488) Path Review (test Immunity and antibiotic code = 8492) use may render culture negative. Ongoing infection requires repeat culture.The results have been reviewed and electronically signed by Pathologist:KAREL PABLO MD #[id number] Gram Stain Report No WBC's seen.No organisms (test code = seen. 72625-9) [facility] ([facility]-CoV-2) PCR- Asymptomatic [id number] 06:06:25 Test Item Value Reference Range Interpretation Comments COVID19 (SARS Not Detected Not Detected CoV-2) Result (test code = ____[place] a 55268-6) qualitative reverse-transcr iptase polymerase jenaro n reaction (RT-PC R) developed for t he [employer] LUCAS 680 0 system and inte nded for qualitative detection of SA RS CoV-2 RNA in nasopharyngeal and oropharyngeal s wab specimens colle cted from any indivi duals, including those suspected of CO VID-19 by their health care provider, and t hose without symptom s or other reasons t o suspect COVID-1 9. A fact sheet for patients provid ed by the manufacture r ([employer]) c an be reviewed at:https://www. fda.go v/media/827546/ downlo ad. A fact shee t for Health Care pro viders is provided by the sample wrapper ([employer]) and can be reviewed at: https://www.fda .gov/m edia/165421/areli nload Results must be interpreted wit hin the context of all relevant clinic al and laboratory find ings and should not form the sole basis for a diagnosis or treatment decis ion. Positive result s do not rule out bacterial infec tion or co-infection with other viruses. Negative result s do not rule out SARS-CoV-2 and must be combined wit h clinical observations, p atient history, and/or epidemiological information. "Presumptive Positive" resul ts are due to partial amplification o f SARS-CoV-2 targ ets and indicates l ow amounts of viru s present in the specimen at or near the limit of detection. Regardless, individuals wit h "Presumptive Positive" resul ts should be manag ed per institutional guidelines as individuals pos itive for SARS-CoV-2 virus, including use o f appropriate inf ection control protoco ls. Internal contro ls are included to ass ess for possible amplification inhibitors. If inhibition is detected, testi ng is repeated and if inhibition is confirmed the specimen is res ulted as "Invalid". W hen an "Invalid" resul t occurs, it is recommended to wait 3 days before submitting a ne w specimen for te sting if clinically indicated. This assay has been approv ed by the FDA for use only under Emergency Use Authorization ( EUA) in laboratories that have been CLIA-certified to perform moderate-comple xity and high-comple xity tests. The performance characteristics of this assay were verified by the Microbiology Laboratory at [facility], CLIA Accreditation # : [id number] and CAP Accreditation # : [id number]. COVID19 SARS ENROLLMENT NURSE Swab Source (test code = 51043) COVID19 SARS Inpatient Indication (test Admission code = 92932) JOAQUIN (test code = hematology JOAQUIN) surveillance testing [facility]2022-07-09 00:32:07 Test Item Value Reference Range Interpretation Comments Final Report (test No growth code = 8488) Path Review (test The results have been code = 8492) reviewed and electronically signed by Pathologist:KAREL PABLO MD #[id number] Gram Stain Report Many WBC's seenNo (test code = organisms seen. 92866-4) [facility]2022-07-09 00:32:07 Test Item Value Reference Range Interpretation Comments Final Report (test No growth code = 8488) Path Review (test The results have been code = 8492) reviewed and electronically signed by Pathologist:KAREL PABLO MD #[id number] Gram Stain Report Many WBC's seenNo (test code = organisms seen. 44699-4) [facility]2022-07-09 00:32:07 Test Item Value Reference Range Interpretation Comments Final Report (test No growth code = 8488) Path Review (test The results have been code = 8492) reviewed and electronically signed by Pathologist:KAREL PABLO MD #[id number] Gram Stain Report Many WBC's seenNo (test code = organisms seen. 33845-9) [facility]2022-07-09 00:32:07 Test Item Value Reference Range Interpretation Comments Final Report (test No growth code = 8488) Path Review (test The results have been code = 8492) reviewed and electronically signed by Pathologist:KAREL PABLO MD #[id number] Gram Stain Report Many WBC's seenNo (test code = organisms seen. 23302-5) [facility]2022-07-09 00:32:07 Test Item Value Reference Range Interpretation Comments Final Report (test No growth code = 8488) Path Review (test The results have been code = 8492) reviewed and electronically signed by Pathologist:KAREL PABLO MD #[id number] Gram Stain Report Many WBC's seenNo (test code = organisms seen. 17397-8) [facility] [id number] 00:32:07 Test Item Value Reference Range Interpretation Comments Final Report (test No growth code = 8488) Path Review (test The results have been code = 8492) reviewed and electronically signed by Pathologist:KAREL PABLO MD #[id number] Gram Stain Report Many WBC's seenNo (test code = organisms seen. 55453-1) [facility] [id number] 00:32:07 Test Item Value Reference Range Interpretation Comments Final Report (test No growth code = 8488) Path Review (test The results have been code = 8492) reviewed and electronically signed by Pathologist:KAREL PABLO MD #[id number] Gram Stain Report Many WBC's seenNo (test code = organisms seen. 35733-5) [facility] [id number] 00:32:07 Test Item Value Reference Range Interpretation Comments Final Report (test No growth code = 8488) Path Review (test The results have been code = 8492) reviewed and electronically signed by Pathologist:KAREL PABLO MD #[id number] Gram Stain Report Many WBC's seenNo (test code = organisms seen. 39436-2) [facility] 20:46:56 Test Item Value Reference Range Interpretation Comments IgG (test code = 6001) 1409 mg/dL 610-1616 [facility] 20:46:56 Test Item Value Reference Range Interpretation Comments IgG (test code = 6001) 1409 mg/dL 610-1616 [facility] 20:46:56 Test Item Value Reference Range Interpretation Comments IgG (test code = 6001) 1409 mg/dL 610-1616 [facility] 2021-10-30 19:15:32 Test Item Value Reference Interpretation Comments Range UA WBC (test code = 1 See_Comment [Automa elbert 32816-4) message] The system which generated this result transmitted reference range : 0 - 2 /HPF. The reference range was not used to interpret this result as normal/abnormal . UA RBC (test code = 2 See_Comment [Automa elbert 13224-6) message] The system which generated this result transmitted reference range : 0 - 2 /HPF. The reference range was not used to interpret this result as normal/abnormal . UA Mucous (test code TRACE Not Seen-Trace = 60561-6) /HPF UA Bacteria (test OCC NOT SEEN /HPF A code = 20441-1) UA Squam Epi (test OCC None-Occasiona code = 46827-8) l /HPF JOAQUIN (test code = Some reporting JOAQUIN) parameters within the Urinalysis test have changed due to the implementation of new instrumentation in the [facility] [place], allowing greater sensitivity of measurement. Urinalysis results reported by the [facility] using existing instrumentation, as well as Urinalysis testing performed manually or by backup methodology at the [facility] will remain relatively unchanged. New reporting parameters and units will now be reported for all campuses. Lab Interpretation Abnormal (test code = 06382-1) [facility] 2021-10-30 19:15:32 Test Item Value Reference Interpretation Comments Range UA WBC (test code = 1 See_Comment [Automa elbert 39345-5) message] The system which generated this result transmitted reference range : 0 - 2 /HPF. The reference range was not used to interpret this result as normal/abnormal . UA RBC (test code = 2 See_Comment [Automa elbert 72999-9) message] The system which generated this result transmitted reference range : 0 - 2 /HPF. The reference range was not used to interpret this result as normal/abnormal . UA Mucous (test code TRACE Not Seen-Trace = 16657-2) /HPF UA Bacteria (test OCC NOT SEEN /HPF A code = 60112-7) UA Squam Epi (test OCC None-Occasiona code = 92337-9) l /HPF JOAQUIN (test code = Some reporting JOAQUIN) parameters within the Urinalysis test have changed due to the implementation of new instrumentation in the [facility], allowing greater sensitivity of measurement. Urinalysis results reported by the [facility] using existing instrumentation, as well as Urinalysis testing performed manually or by backup methodology at the [facility] will remain relatively unchanged. New reporting parameters and units will now be reported for all [facility]. Lab Interpretation Abnormal (test code = 28011-6) [facility] 2021-10-30 19:15:32 Test Item Value Reference Interpretation Comments Range UA WBC (test code = 1 See_Comment [Automa elbert 96739-6) message] The system which generated this result transmitted reference range : 0 - 2 /HPF. The reference range was not used to interpret this result as normal/abnormal . UA RBC (test code = 2 See_Comment [Automa elbert 60439-1) message] The system which generated this result transmitted reference range : 0 - 2 /HPF. The reference range was not used to interpret this result as normal/abnormal . UA Mucous (test code TRACE Not Seen-Trace = 97004-7) /HPF UA Bacteria (test OCC NOT SEEN /HPF A code = 81335-8) UA Squam Epi (test OCC None-Occasiona code = 15156-6) l /HPF JOAQUIN (test code = Some reporting JOAQUIN) parameters within the Urinalysis test have changed due to the implementation of new instrumentation in the [facility], allowing greater sensitivity of measurement. Urinalysis results reported by the [facility] using existing instrumentation, as well as Urinalysis testing performed manually or by backup methodology at the [facility] will remain relatively unchanged. New reporting parameters and units will now be reported for all [facility]. Lab Interpretation Abnormal (test code = 11712-1) [facility] 2021-10-30 19:15:32 Test Item Value Reference Interpretation Comments Range UA WBC (test code = 1 See_Comment [Automa elbert 74811-2) message] The system which generated this result transmitted reference range : 0 - 2 /HPF. The reference range was not used to interpret this result as normal/abnormal . UA RBC (test code = 2 See_Comment [Automa elbert 12740-8) message] The system which generated this result transmitted reference range : 0 - 2 /HPF. The reference range was not used to interpret this result as normal/abnormal . UA Mucous (test code TRACE Not Seen-Trace = 75885-0) /HPF UA Bacteria (test OCC NOT SEEN /HPF A code = 39126-2) UA Squam Epi (test OCC None-Occasiona code = 46970-8) l /HPF JOAQUIN (test code = Some reporting JOAQUIN) parameters within the Urinalysis test have changed due to the implementation of new instrumentation in the [facility] [place], allowing greater sensitivity of measurement. Urinalysis results reported by the [facility] using existing instrumentation, as well as Urinalysis testing performed manually or by backup methodology at the [facility] will remain relatively unchanged. New reporting parameters and units will now be reported for all campus. Lab Interpretation Abnormal (test code = 72960-5) [facility] 2021-10-30 19:15:32 Test Item Value Reference Interpretation Comments Range UA WBC (test code = 1 See_Comment [Automa elbert 99576-2) message] The system which generated this result transmitted reference range : 0 - 2 /HPF. The reference range was not used to interpret this result as normal/abnormal . UA RBC (test code = 2 See_Comment [Automa elbert 24670-7) message] The system which generated this result transmitted reference range : 0 - 2 /HPF. The reference range was not used to interpret this result as normal/abnormal . UA Mucous (test code TRACE Not Seen-Trace = 20036-0) /HPF UA Bacteria (test OCC NOT SEEN /HPF A code = 57772-6) UA Squam Epi (test OCC None-Occasiona code = 45172-9) l /HPF JOAQUIN (test code = Some reporting JOAQUIN) parameters within the Urinalysis test have changed due to the implementation of new instrumentation in the [facility] [place], allowing greater sensitivity of measurement. Urinalysis results reported by the [facility] using existing instrumentation, as well as Urinalysis testing performed manually or by backup methodology at the [facility] will remain relatively unchanged. New reporting parameters and units will now be reported for all campuses. Lab Interpretation Abnormal (test code = 68768-9) [facility] 2021-10-30 19:15:32 Test Item Value Reference Interpretation Comments Range UA WBC (test code = 1 See_Comment [Automa elbert 67516-5) message] The system which generated this result transmitted reference range : 0 - 2 /HPF. The reference range was not used to interpret this result as normal/abnormal . UA RBC (test code = 2 See_Comment [Automa elbert 77895-4) message] The system which generated this result transmitted reference range : 0 - 2 /HPF. The reference range was not used to interpret this result as normal/abnormal . UA Mucous (test code TRACE Not Seen-Trace = 19418-7) /HPF UA Bacteria (test OCC NOT SEEN /HPF A code = 56346-9) UA Squam Epi (test OCC None-Occasiona code = 47330-9) l /HPF JOAQUIN (test code = Some reporting JOAQUIN) parameters within the Urinalysis test have changed due to the implementation of new instrumentation in the [facility] [place], allowing greater sensitivity of measurement. Urinalysis results reported by the [facility] using existing instrumentation, as well as Urinalysis testing performed manually or by backup methodology at the [facility] will remain relatively unchanged. New reporting parameters and units will now be reported for all campuses. Lab Interpretation Abnormal (test code = 80018-5) [facility] 2021-10-30 19:15:32 Test Item Value Reference Interpretation Comments Range UA WBC (test code = 1 See_Comment [Automa elbert 95844-7) message] The system which generated this result transmitted reference range : 0 - 2 /HPF. The reference range was not used to interpret this result as normal/abnormal . UA RBC (test code = 2 See_Comment [Automa elbert 84537-7) message] The system which generated this result transmitted reference range : 0 - 2 /HPF. The reference range was not used to interpret this result as normal/abnormal . UA Mucous (test code TRACE Not Seen-Trace = 88837-0) /HPF UA Bacteria (test OCC NOT SEEN /HPF A code = 22391-8) UA Squam Epi (test OCC None-Occasiona code = 05574-0) l /HPF JOAQUIN (test code = Some reporting JOAQUIN) parameters within the Urinalysis test have changed due to the implementation of new instrumentation in the [facility], allowing greater sensitivity of measurement. Urinalysis results reported by the [facility] using existing instrumentation, as well as Urinalysis testing performed manually or by backup methodology at the [facility] will remain relatively unchanged. New reporting parameters and units will now be reported for all campuses. Lab Interpretation Abnormal (test code = 75945-3) [facility] 2021-10-30 19:15:32 Test Item Value Reference Interpretation Comments Range UA WBC (test code = 1 See_Comment [Automa elbert 60772-1) message] The system which generated this result transmitted reference range : 0 - 2 /HPF. The reference range was not used to interpret this result as normal/abnormal . UA RBC (test code = 2 See_Comment [Automa elbert 96707-6) message] The system which generated this result transmitted reference range : 0 - 2 /HPF. The reference range was not used to interpret this result as normal/abnormal . UA Mucous (test code TRACE Not Seen-Trace = 84815-5) /HPF UA Bacteria (test OCC NOT SEEN /HPF A code = 88527-7) UA Squam Epi (test OCC None-Occasiona code = 21997-6) l /HPF JOAQUIN (test code = Some reporting JOAQUIN) parameters within the Urinalysis test have changed due to the implementation of new instrumentation in the [facility], allowing greater sensitivity of measurement. Urinalysis results reported by the [facility] using existing instrumentation, as well as Urinalysis testing performed manually or by backup methodology at the [facility] will remain relatively unchanged. New reporting parameters and units will now be reported for all [place]. Lab Interpretation Abnormal (test code = 17481-0) [facility] Path Review 2021-10-30 18:12:47 Test Item Value Reference Range Interpretation Comments BF Crystal CPPD Type (test code = 8519) BF Path Int A SMALL NUMBER OF (test code = CRYSTALS 4958) CONSISTENT WITH JOAQUINA RAMSEY MD, THOSE OF CPPD ARE PhD - 1087 8Dictated by: PRESENT IN A RAJWINDER RAMSEY MD , PhD - BACKGROUND OF 30791Ykniwpgp NUMEROUS ACUTE Date/Time: INFLAMMATORY 13:12 PM CDT CELLS. Transcribed Gonzalez e/Time: 10.30.2021 13:1 2 PM CDTElectronical ly Signed By: TOSHIA RAMSEY MD, PhD - 1 0878 on 10.30.2021 13:1 2 PM JOAQUIN (test code Left knee = JOAQUIN) [facility] Review 2021-10-30 18:12:47 Test Item Value Reference Range Interpretation Comments BF Crystal CPPD Type (test code = 8519) BF Path Int A SMALL NUMBER OF (test code = CRYSTALS 4958) CONSISTENT WITH JOAQUINA RAMSEY MD, THOSE OF CPPD ARE PhD - 1087 8Dictated by: PRESENT IN A RAJWINDER RAMSEY MD , PhD - BACKGROUND [place] [address]Nxlyfkth NUMEROUS ACUTE Date/Time: INFLAMMATORY 13:12 PM CDT CELLS. Transcribed Gonzalez e/Time: 10.30.2021 13:1 2 PM CDTElectronical ly Signed By: TOSHIA RAMSEY MD, PhD - 1 0878 on 10.30.2021 13:1 2 PM JOAQUIN (test code Left knee = JOAQUIN) [facility] Review 2021-10-30 18:12:47 Test Item Value Reference Range Interpretation Comments BF Crystal CPPD Type (test code = 8519) BF Path Int A SMALL NUMBER OF (test code = CRYSTALS 4958) CONSISTENT WITH JOAQUINA RAMSEY MD, THOSE OF CPPD ARE PhD - 1087 8Dictated by: PRESENT IN A RAJWINDER RAMSEY MD , PhD - BACKGROUND OF 164[address]Kwwbscoq NUMEROUS ACUTE Date/Time: INFLAMMATORY 13:12 PM CDT CELLS. Transcribed Gonzalez e/Time: 10.30.2021 13:1 2 PM CDTElectronical ly Signed By: TOSHIA RAMSEY MD, PhD - 1 0878 on 10.30.2021 13:1 2 PM JOAQUIN (test code Left knee = JOAQUIN) [facility] Path Review 2021-10-30 18:12:47 Test Item Value Reference Range Interpretation Comments BF Crystal CPPD Type (test code = 8519) BF Path Int A SMALL NUMBER OF (test code = CRYSTALS 4958) CONSISTENT WITH JOAQUINA RAMSEY MD, THOSE OF CPPD ARE PhD - 108 8Dictated by: PRESENT IN A RAJWINDER RAMSEY MD , PhD - BACKGROUND OF [id number] NUMEROUS ACUTE Date/Time: INFLAMMATORY 13:12 PM CDT CELLS. Transcribed Gonzalez e/Time: 10.30.2021 13:1 2 PM CDTElectronical ly Signed By: TOSHIA RAMSEY MD, PhD - 1 78 on 10.30.2021 13:1 2 PM JOAQUIN (test code Left knee = JOAQUIN) [facility] Path Review 2021-10-30 18:12:47 Test Item Value Reference Range Interpretation Comments BF Crystal CPPD Type (test code = 8519) BF Path Int A SMALL NUMBER OF (test code = CRYSTALS 4958) CONSISTENT WITH JOAQUINA RAMSEY MD, THOSE OF CPPD ARE PhD - 1086 8Dictated by: PRESENT IN A RAJWINDER RAMSEY MD , PhD - BACKGROUND OF 21976Ffuqajck NUMEROUS ACUTE Date/Time: INFLAMMATORY 13:12 PM CDT CELLS. Transcribed Gonzalez e/Time: 10.30.2021 13:1 2 PM CDTElectronical ly Signed By: TOSHIA RAMSEY MD, PhD - 1 78 on 10.30.2021 13:1 2 PM JOAQUIN (test code Left knee = JOAQUIN) [facility] Path Review 2021-10-30 18:12:47 Test Item Value Reference Range Interpretation Comments BF Crystal CPPD Type (test code = 8519) BF Path Int A SMALL NUMBER OF (test code = CRYSTALS 4958) CONSISTENT WITH JOAQUINA RAMSEY MD, THOSE OF CPPD ARE PhD - 108 8Dictated by: PRESENT IN A RAJWINDER RAMSEY MD , PhD - BACKGROUND OF [address]Bxjobxxu NUMEROUS ACUTE Date/Time: INFLAMMATORY 13:12 PM CDT CELLS. Transcribed Gonzalez e/Time: 10.30.2021 13:1 2 PM CDTElectronical ly Signed By: TOSHIA RAMSEY MD, PhD - 1 0878 on 10.30.2021 13:1 2 PM JOAQUIN (test code Left knee = JOAQUIN) [facility] Path Review 2021-10-30 18:12:47 Test Item Value Reference Range Interpretation Comments BF Crystal CPPD Type (test code = 8519) BF Path Int A SMALL NUMBER OF (test code = CRYSTALS 4958) CONSISTENT WITH JOAQUINA RAMSEY MD, THOSE OF CPPD ARE PhD - 1086 8Dictated by: PRESENT IN A RAJWINDER RAMSEY MD , PhD - BACKGROUND OF 246[address]Iiiileje NUMEROUS ACUTE Date/Time: INFLAMMATORY 13:12 PM CDT CELLS. Transcribed Gonzalez e/Time: 10.30.2021 13:1 2 PM CDTElectronical ly Signed By: TOSHIA RAMSEY MD, PhD - 1 0878 on 10.30.2021 13:1 2 PM JOAQUIN (test code Left knee = JOAQUIN) [facility] Review 2021-10-30 18:12:47 Test Item Value Reference Range Interpretation Comments BF Crystal CPPD Type (test code = 8519) BF Path Int A SMALL NUMBER OF (test code = CRYSTALS 4958) CONSISTENT WITH JOAQUINA RAMSEY MD, THOSE OF CPPD ARE PhD - 1087 8Dictated by: PRESENT IN A RAJWINDER RAMSEY MD , PhD - BACKGROUND OF 577[address]Gzlubbcp NUMEROUS ACUTE Date/Time: INFLAMMATORY 13:12 PM CDT CELLS. Transcribed Gonzalez e/Time: 10.30.2021 13:1 2 PM CDTElectronical ly Signed By: TOSHIA RAMSEY MD, PhD - 1 0878 on 10.30.2021 13:1 2 PM JOAQUIN (test code Left knee = JOAQUIN) [facility]On Test 2021-10-30 16:48:58 Test Item Value Reference Range Interpretation Comments Ordered (test code = 6568) Test Added Test Needed (test code = 7604) CRP [facility]On Test 2021-10-30 16:48:58 Test Item Value Reference Range Interpretation Comments Ordered (test code = 6568) Test Added Test Needed (test code = 7604) CRP [facility]On Test 2021-10-30 16:48:58 Test Item Value Reference Range Interpretation Comments Ordered (test code = 6568) Test Added Test Needed (test code = 7604) [id number] 21:21:08 Test Item Value Reference Range Interpretation Comments Final Report (test No growth code = 8488) Path Review - Immunity and antibiotic Bottle/Isolator use may render culture (test code = 8499) negative. Ongoing infection requires repeat culture. The results have been reviewed and electronically signed by Pathologist:Kwesi Tristan MD, PhD #[id number] [facility] w/ Path Review 2021-10-27 03:30:31 Test Item Value Reference Range Interpretation Comments BF Source (test code = 4959) Synovial,AnkleL BF Appearance (test code = HAZY 4957) BF Total Volume (test code = 20cc mL 8514) WBC BF (test code = 8035) >100 Rare /HPF A RBC BF (test code = 6933) 5-10 Rare /HPF A JOAQUIN (test code = JOAQUIN) Left knee Lab Interpretation (test code Abnormal = 13776-5) [facility] Path Review 2021-10-27 03:30:31 Test Item Value Reference Range Interpretation Comments BF Source (test code = 4959) Synovial,AnkleL BF Appearance (test code = HAZY 4957) BF Total Volume (test code = 20cc mL 8514) WBC BF (test code = 8035) >100 Rare /HPF A RBC BF (test code = 6933) 5-10 Rare /HPF A JOAQUIN (test code = JOAQUIN) Left knee Lab Interpretation (test code Abnormal = 14778-2) [facility] Path Review 2021-10-27 03:30:31 Test Item Value Reference Range Interpretation Comments BF Source (test code = 4959) Synovial,AnkleL BF Appearance (test code = HAZY 4957) BF Total Volume (test code = 20cc mL 8514) WBC BF (test code = 8035) >100 Rare /HPF A RBC BF (test code = 6933) 5-10 Rare /HPF A JOAQUIN (test code = JOAQUIN) Left knee Lab Interpretation (test code Abnormal = 70289-4) [facility] Path Review 2021-10-27 03:30:31 Test Item Value Reference Range Interpretation Comments BF Source (test code = 4959) Synovial,AnkleL BF Appearance (test code = HAZY 4957) BF Total Volume (test code = 20cc mL 8514) WBC BF (test code = 8035) >100 Rare /HPF A RBC BF (test code = 6933) 5-10 Rare /HPF A JOAQUIN (test code = JOAQUIN) Left knee Lab Interpretation (test code Abnormal = 69837-3) [facility] Path Review 2021-10-27 03:30:31 Test Item Value Reference Range Interpretation Comments BF Source (test code = 4959) Synovial,AnkleL BF Appearance (test code = HAZY 4957) BF Total Volume (test code = 20cc mL 8514) WBC BF (test code = 8035) >100 Rare /HPF A RBC BF (test code = 6933) 5-10 Rare /HPF A JOAQUIN (test code = JOAQUIN) Left knee Lab Interpretation (test code Abnormal = 77500-7) [facility] Path Review 2021-10-27 03:30:31 Test Item Value Reference Range Interpretation Comments BF Source (test code = 4959) Synovial,AnkleL BF Appearance (test code = HAZY 4957) BF Total Volume (test code = 20cc mL 8514) WBC BF (test code = 8035) >100 Rare /HPF A RBC BF (test code = 6933) 5-10 Rare /HPF A JOAQUIN (test code = JOAQUIN) Left knee Lab Interpretation (test code Abnormal = 50980-3) [facility] Path Review 2021-10-27 03:30:31 Test Item Value Reference Range Interpretation Comments BF Source (test code = 4959) Synovial,AnkleL BF Appearance (test code = HAZY 4957) BF Total Volume (test code = 20cc mL 8514) WBC BF (test code = 8035) >100 Rare /HPF A RBC BF (test code = 6933) 5-10 Rare /HPF A JOAQUIN (test code = JOAQUIN) Left knee Lab Interpretation (test code Abnormal = 72179-6) [facility] Path Review 2021-10-27 03:30:31 Test Item Value Reference Range Interpretation Comments BF Source (test code = 4959) Synovial,AnkleL BF Appearance (test code = HAZY 4957) BF Total Volume (test code = 20cc mL 8514) WBC BF (test code = 8035) >100 Rare /HPF A RBC BF (test code = 6933) 5-10 Rare /HPF A JOAQUIN (test code = JOAQUIN) Left knee Lab Interpretation (test code Abnormal = 24690-4) [facility] [id number] 03:30:30 Test Item Value Reference Range Interpretation Comments Type BF (test Synovial, KneeL code = 7671) Appear BF (test HAZY code = 4819) WBC BF (test code 903 See_Comment This assay has been = 8035) validated for b surjit fluids. No refe rence ranges have bee n established. Te st results should be interpreted in context with th e patient s clinical cond ition. Pathologist con sult is available. [Automated mess age] The system [employer] generated this result transmitted ref erence range: /mcL. Th e reference range was not used to int erpret this result as normal/abnormal . RBC BF (test code 15 See_Comment This assay has been = 6933) validated for b surjit fluids. No refe rence ranges have bee n established. Te st results should be interpreted in context with th e patient s clinical cond ition. Pathologist con sult is available. [Automated mess age] The system [employer] generated this result transmitted ref erence range: /mcL. Th e reference range was not used to int erpret this result as normal/abnormal . OJAQUIN (test code = Left knee JOAQUIN) [facility] [id number] 03:30:30 Test Item Value Reference Range Interpretation Comments Type BF (test Synovial, KneeL code = 7671) Appear BF (test HAZY code = 4819) WBC BF (test code 903 See_Comment This assay has been = 8035) validated for b surjit fluids. No refe rence ranges have bee n established. Te st results should be interpreted in context with th e patient s clinical cond ition. Pathologist con sult is available. [Automated mess age] The system Exhbit generated this result transmitted ref erence range: /mcL. Th e reference range was not used to int erpret this result as normal/abnormal . RBC BF (test code 15 See_Comment This assay has been = 6933) validated for b surjit fluids. No refe rence ranges have bee n established. Te st results should be interpreted in context with th e patient s clinical cond ition. Pathologist con sult is available. [Automated mess age] The system Exh[employer] generated this result transmitted ref erence range: /mcL. Th e reference range was not used to int erpret this result as normal/abnormal . JOAQUIN (test code = Left knee JOAQUIN) [id number] 03:30:30 Test Item Value Reference Range Interpretation Comments Type BF (test Synovial, KneeL code = 7671) Appear BF (test HAZY code = 4819) WBC BF (test code 903 See_Comment This assay has been = 8035) validated for b surjit fluids. No refe rence ranges have bee n established. Te st results should be interpreted in context with th e patient s clinical cond ition. Pathologist con sult is available. [Automated mess age] The system Exhbit generated this result transmitted ref erence range: /mcL. Th e reference range was not used to int erpret this result as normal/abnormal . RBC BF (test code 15 See_Comment This assay has been = 6933) validated for b surjit fluids. No refe rence ranges have bee n established. Te st results should be interpreted in context with th e patient s clinical cond ition. Pathologist con sult is available. [Automated mess age] The system Exh[employer] generated this result transmitted ref erence range: /mcL. Th e reference range was not used to int erpret this result as normal/abnormal . JOAQUIN (test code = Left knee JOAQUIN) [facility] [id number] 03:30:30 Test Item Value Reference Range Interpretation Comments Type BF (test Synovial, KneeL code = 7671) Appear BF (test HAZY code = 4819) WBC BF (test code 903 See_Comment This assay has been = 8035) validated for b surjit fluids. No refe rence ranges have bee n established. Te st results should be interpreted in context with th e patient s clinical cond ition. Pathologist con sult is available. [Automated mess age] The system Exh[employer] generated this result transmitted ref erence range: /mcL. Th e reference range was not used to int erpret this result as normal/abnormal . RBC BF (test code 15 See_Comment This assay has been = 6933) validated for b surjit fluids. No refe rence ranges have bee n established. Te st results should be interpreted in context with th e patient s clinical cond ition. Pathologist con sult is available. [Automated mess age] The system Exhbit generated this result transmitted ref erence range: /mcL. Th e reference range was not used to int erpret this result as normal/abnormal . JOAQUIN (test code = Left knee JOAQUIN) [facility] [id number] 03:30:30 Test Item Value Reference Range Interpretation Comments Type BF (test Synovial, KneeL code = 7671) Appear BF (test HAZY code = 4819) WBC BF (test code 903 See_Comment This assay has been = 8035) validated for b surjit fluids. No refe rence ranges have bee n established. Te st results should be interpreted in context with th e patient s clinical cond ition. Pathologist con sult is available. [Automated mess age] The system Exh[employer] generated this result transmitted ref erence range: /mcL. Th e reference range was not used to int erpret this result as normal/abnormal . RBC BF (test code 15 See_Comment This assay has been = 6933) validated for b surjit fluids. No refe rence ranges have bee n established. Te st results should be interpreted in context with th e patient s clinical cond ition. Pathologist con sult is available. [Automated mess age] The system Exh[employer] generated this result transmitted ref erence range: /mcL. Th e reference range was not used to int erpret this result as normal/abnormal . JOAQUIN (test code = Left knee JOAQUIN) [facility] [id number] 03:30:30 Test Item Value Reference Range Interpretation Comments Type BF (test Synovial, KneeL code = 7671) Appear BF (test HAZY code = 4819) WBC BF (test code 903 See_Comment This assay has been = 8035) validated for b surjit fluids. No refe rence ranges have bee n established. Te st results should be interpreted in context with th e patient s clinical cond ition. Pathologist con sult is available. [Automated mess age] The system Exh[employer] generated this result transmitted ref erence range: /mcL. Th e reference range was not used to int erpret this result as normal/abnormal . RBC BF (test code 15 See_Comment This assay has been = 6933) validated for b surjit fluids. No refe rence ranges have bee n established. Te st results should be interpreted in context with th e patient s clinical cond ition. Pathologist con sult is available. [Automated mess age] The system Exhbit generated this result transmitted ref erence range: /mcL. Th e reference range was not used to int erpret this result as normal/abnormal . JOAQUIN (test code = Left knee JOAQUIN) [facility] [id number] 03:30:30 Test Item Value Reference Range Interpretation Comments Type BF (test Synovial, KneeL code = 7671) Appear BF (test HAZY code = 4819) WBC BF (test code 903 See_Comment This assay has been = 8035) validated for b surjit fluids. No refe rence ranges have bee n established. Te st results should be interpreted in context with th e patient s clinical cond ition. Pathologist con sult is available. [Automated mess age] The system Exhbit generated this result transmitted ref erence range: /mcL. Th e reference range was not used to int erpret this result as normal/abnormal . RBC BF (test code 15 See_Comment This assay has been = 6933) validated for b surjit fluids. No refe rence ranges have bee n established. Te st results should be interpreted in context with th e patient s clinical cond ition. Pathologist con sult is available. [Automated mess age] The system Exhbit generated this result transmitted ref erence range: /mcL. Th e reference range was not used to int erpret this result as normal/abnormal . JOAQUIN (test code = Left knee JOAQUIN) [facility] [id number] 03:30:30 Test Item Value Reference Range Interpretation Comments Type BF (test Synovial, KneeL code = 7671) Appear BF (test HAZY code = 4819) WBC BF (test code 903 See_Comment This assay has been = 8035) validated for b surjit fluids. No refe rence ranges have bee n established. Te st results should be interpreted in context with th e patient s clinical cond ition. Pathologist con sult is available. [Automated mess age] The system Exhbit generated this result transmitted ref erence range: /mcL. Th e reference range was not used to int erpret this result as normal/abnormal . RBC BF (test code 15 See_Comment This assay has been = 6933) validated for b surjit fluids. No refe rence ranges have bee n established. Te st results should be interpreted in context with th e patient s clinical cond ition. Pathologist con sult is available. [Automated mess age] The system Exhbit generated this result transmitted ref erence range: /mcL. Th e reference range was not used to int erpret this result as normal/abnormal . JOAQUIN (test code = Left knee JOAQUIN) [facility] w/o [id number] 14:40:57 Test Item Value Reference Range Interpretation Comments WBC (test code = 5.4 K/uL 4.0-11.0 6690-2) RBC (test code = 3.26 See_Comment L [Automated 789-8) message] The sy stem which generated this result transmitted reference range : 4.50 - 6.00 M/u L. The reference r sam was not used to interpret this result as normal/abnormal . Hgb (test code = 10.9 See_Comment L [Automated 718-7) message] The sy stem which generated this result transmitted reference range : 14.0 - 18.0 gm/ dL. The reference r sam was not used to interpret this result as normal/abnormal . Hct (test code = 30.8 % 40.0-54.0 L 4544-3) MCV (test code = 94 fL 82-98 787-2) MCH (test code = 33.4 pg 27.0-31.0 H 785-6) MCHC (test code = 35.4 See_Comment [Automate d 786-4) message] The sy stem which generated this result transmitted reference range : 31.0 - 36.0 gm/ dL. The reference r sam was not used to interpret this result as normal/abnormal . RDW-SD (test code = 59.7 fL 35.1-46.3 H 96046-9) RDW-CV (test code = 17.2 % 12.0-15.5 H 788-0) Platelet count (test 323 K/uL 140-440 code = 777-3) MPV (test code = 9.6 fL 4.0-10.4 22944-2) INRBC (test code = 0.0 % See_Comment The INRBC 72755-3) (instrument NRB C) value reflects the enumerationof nucleated red b lood cells contained in a 200uL sampleo f whole blood analyzed by the instrument. Thi s value maydiffer from the NRBC v alue reported in a manual differential,wh ich is based on a 1 00 cell differenti al. [Automated mess age] The system whic h generated this result transmit elbert reference range : <=0.0. The reference range was not used to interpret this result as normal/abnormal . JOAQUIN (test code = JOAQUIN) Ok to draw from PICC line. Lab Interpretation Abnormal (test code = 15142-8) [facility] w/o [id number] 14:40:57 Test Item Value Reference Range Interpretation Comments WBC (test code = 5.4 K/uL 4.0-11.0 6690-2) RBC (test code = 3.26 See_Comment L [Automated 789-8) message] The sy stem which generated this result transmitted reference range : 4.50 - 6.00 M/u L. The reference r sam was not used to interpret this result as normal/abnormal . Hgb (test code = 10.9 See_Comment L [Automated 718-7) message] The sy stem which generated this result transmitted reference range : 14.0 - 18.0 gm/ dL. The reference r sam was not used to interpret this result as normal/abnormal . Hct (test code = 30.8 % 40.0-54.0 L 4544-3) MCV (test code = 94 fL 82-98 787-2) MCH (test code = 33.4 pg 27.0-31.0 H 785-6) MCHC (test code = 35.4 See_Comment [Automate d 786-4) message] The sy stem which generated this result transmitted reference range : 31.0 - 36.0 gm/ dL. The reference r sam was not used to interpret this result as normal/abnormal . RDW-SD (test code = 59.7 fL 35.1-46.3 H 37159-9) RDW-CV (test code = 17.2 % 12.0-15.5 H 788-0) Platelet count (test 323 K/uL 140-440 code = 777-3) MPV (test code = 9.6 fL 4.0-10.4 98408-5) INRBC (test code = 0.0 % See_Comment The INRBC 18818-6) (instrument NRB C) value reflects the enumerationof nucleated red b lood cells contained in a 200uL sampleo f whole blood analyzed by the instrument. Thi s value maydiffer from the NRBC v alue reported in a manual differential,wh ich is based on a 1 00 cell differenti al. [Automated mess age] The system whic h generated this result transmit elbert reference range : <=0.0. The reference range was not used to interpret this result as normal/abnormal . JOAQUIN (test code = JOAQUIN) Ok to draw from PICC line. Lab Interpretation Abnormal (test code = 71546-7) [facility]/o [id number] 14:40:57 Test Item Value Reference Range Interpretation Comments WBC (test code = 5.4 K/uL 4.0-11.0 6690-2) RBC (test code = 3.26 See_Comment L [Automated 789-8) message] The sy stem which generated this result transmitted reference range : 4.50 - 6.00 M/u L. The reference r sam was not used to interpret this result as normal/abnormal . Hgb (test code = 10.9 See_Comment L [Automated 718-7) message] The sy stem which generated this result transmitted reference range : 14.0 - 18.0 gm/ dL. The reference r sam was not used to interpret this result as normal/abnormal . Hct (test code = 30.8 % 40.0-54.0 L 4544-3) MCV (test code = 94 fL 82-98 787-2) MCH (test code = 33.4 pg 27.0-31.0 H 785-6) MCHC (test code = 35.4 See_Comment [Automate d 786-4) message] The sy stem which generated this result transmitted reference range : 31.0 - 36.0 gm/ dL. The reference r sam was not used to interpret this result as normal/abnormal . RDW-SD (test code = 59.7 fL 35.1-46.3 H 74270-5) RDW-CV (test code = 17.2 % 12.0-15.5 H 788-0) Platelet count (test 323 K/uL 140-440 code = 777-3) MPV (test code = 9.6 fL 4.0-10.4 97879-2) INRBC (test code = 0.0 % See_Comment The INRBC 01785-7) (instrument NRB C) value reflects the enumerationof nucleated red b lood cells contained in a 200uL sampleo f whole blood analyzed by the instrument. Thi s value maydiffer from the NRBC v alue reported in a manual differential,wh ich is based on a 1 00 cell differenti al. [Automated mess age] The system whic h generated this result transmit elbert reference range : <=0.0. The reference range was not used to interpret this result as normal/abnormal . JOAQUIN (test code = JOAQUIN) Ok to draw from PICC line. Lab Interpretation Abnormal (test code = 04135-3) [facility] w/o [id number] 14:40:57 Test Item Value Reference Range Interpretation Comments WBC (test code = 5.4 K/uL 4.0-11.0 6690-2) RBC (test code = 3.26 See_Comment L [Automated 789-8) message] The sy stem which generated this result transmitted reference range : 4.50 - 6.00 M/u L. The reference r sam was not used to interpret this result as normal/abnormal . Hgb (test code = 10.9 See_Comment L [Automated 718-7) message] The sy stem which generated this result transmitted reference range : 14.0 - 18.0 gm/ dL. The reference r sam was not used to interpret this result as normal/abnormal . Hct (test code = 30.8 % 40.0-54.0 L 4544-3) MCV (test code = 94 fL 82-98 787-2) MCH (test code = 33.4 pg 27.0-31.0 H 785-6) MCHC (test code = 35.4 See_Comment [Automate d 786-4) message] The sy stem which generated this result transmitted reference range : 31.0 - 36.0 gm/ dL. The reference r sam was not used to interpret this result as normal/abnormal . RDW-SD (test code = 59.7 fL 35.1-46.3 H 70366-6) RDW-CV (test code = 17.2 % 12.0-15.5 H 788-0) Platelet count (test 323 K/uL 140-440 code = 777-3) MPV (test code = 9.6 fL 4.0-10.4 21546-1) INRBC (test code = 0.0 % <=0.0 The INRBC 79846-6) (instrument NRB C) value reflects the enumerationof nucleated red b lood cells contained in a 200uL sampleo f whole blood analyzed by the instrument. Thi s value maydiffer from the NRBC v alue reported in a manual differential,wh ich is based on a 1 00 cell differenti al. JOAQUIN (test code = JOAQUIN) Ok to draw from PICC line. Lab Interpretation Abnormal (test code = 30483-5) [facility] w/o [id number] 14:40:57 Test Item Value Reference Range Interpretation Comments WBC (test code = 5.4 K/uL 4.0-11.0 6690-2) RBC (test code = 3.26 See_Comment L [Automated 789-8) message] The sy stem which generated this result transmitted reference range : 4.50 - 6.00 M/u L. The reference r sam was not used to interpret this result as normal/abnormal . Hgb (test code = 10.9 See_Comment L [Automated 718-7) message] The sy stem which generated this result transmitted reference range : 14.0 - 18.0 gm/ dL. The reference r sam was not used to interpret this result as normal/abnormal . Hct (test code = 30.8 % 40.0-54.0 L 4544-3) MCV (test code = 94 fL 82-98 787-2) MCH (test code = 33.4 pg 27.0-31.0 H 785-6) MCHC (test code = 35.4 See_Comment [Automate d 786-4) message] The sy stem which generated this result transmitted reference range : 31.0 - 36.0 gm/ dL. The reference r sam was not used to interpret this result as normal/abnormal . RDW-SD (test code = 59.7 fL 35.1-46.3 H 07807-9) RDW-CV (test code = 17.2 % 12.0-15.5 H 788-0) Platelet count (test 323 K/uL 140-440 code = 777-3) MPV (test code = 9.6 fL 4.0-10.4 26630-6) INRBC (test code = 0.0 % <=0.0 The INRBC 38609-3) (instrument NRB C) value reflects the enumerationof nucleated red b lood cells contained in a 200uL sampleo f whole blood analyzed by the instrument. Thi s value maydiffer from the NRBC v alue reported in a manual differential,wh ich is based on a 1 00 cell differenti al. JOAQUIN (test code = JOAQUIN) Ok to draw from PICC line. Lab Interpretation Abnormal (test code = 84852-8) [facility] w/o [id number] 14:40:57 Test Item Value Reference Range Interpretation Comments WBC (test code = 5.4 K/uL 4.0-11.0 6690-2) RBC (test code = 3.26 See_Comment L [Automated 789-8) message] The sy stem which generated this result transmitted reference range : 4.50 - 6.00 M/u L. The reference r sam was not used to interpret this result as normal/abnormal . Hgb (test code = 10.9 See_Comment L [Automated 718-7) message] The sy stem which generated this result transmitted reference range : 14.0 - 18.0 gm/ dL. The reference r sam was not used to interpret this result as normal/abnormal . Hct (test code = 30.8 % 40.0-54.0 L 4544-3) MCV (test code = 94 fL 82-98 787-2) MCH (test code = 33.4 pg 27.0-31.0 H 785-6) MCHC (test code = 35.4 See_Comment [Automate d 786-4) message] The sy stem which generated this result transmitted reference range : 31.0 - 36.0 gm/ dL. The reference r sam was not used to interpret this result as normal/abnormal . RDW-SD (test code = 59.7 fL 35.1-46.3 H 97612-7) RDW-CV (test code = 17.2 % 12.0-15.5 H 788-0) Platelet count (test 323 K/uL 140-440 code = 777-3) MPV (test code = 9.6 fL 4.0-10.4 63805-9) INRBC (test code = 0.0 % <=0.0 The INRBC 30444-3) (instrument NRB C) value reflects the enumerationof nucleated red b lood cells contained in a 200uL sampleo f whole blood analyzed by the instrument. Thi s value maydiffer from the NRBC v alue reported in a manual differential,wh ich is based on a 1 00 cell differenti al. JOAQUIN (test code = JOAQUIN) Ok to draw from PICC line. Lab Interpretation Abnormal (test code = 32115-9) [facility] w/o [id number] 14:40:57 Test Item Value Reference Range Interpretation Comments WBC (test code = 5.4 K/uL 4.0-11.0 6690-2) RBC (test code = 3.26 See_Comment L [Automated 789-8) message] The sy stem which generated this result transmitted reference range : 4.50 - 6.00 M/u L. The reference r sam was not used to interpret this result as normal/abnormal . Hgb (test code = 10.9 See_Comment L [Automated 718-7) message] The sy stem which generated this result transmitted reference range : 14.0 - 18.0 gm/ dL. The reference r sam was not used to interpret this result as normal/abnormal . Hct (test code = 30.8 % 40.0-54.0 L 4544-3) MCV (test code = 94 fL 82-98 787-2) MCH (test code = 33.4 pg 27.0-31.0 H 785-6) MCHC (test code = 35.4 See_Comment [Automate d 786-4) message] The sy stem which generated this result transmitted reference range : 31.0 - 36.0 gm/ dL. The reference r sam was not used to interpret this result as normal/abnormal . RDW-SD (test code = 59.7 fL 35.1-46.3 H 36447-2) RDW-CV (test code = 17.2 % 12.0-15.5 H 788-0) Platelet count (test 323 K/uL 140-440 code = 777-3) MPV (test code = 9.6 fL 4.0-10.4 90195-5) INRBC (test code = 0.0 % <=0.0 The INRBC 68405-1) (instrument NRB C) value reflects the enumerationof nucleated red b lood cells contained in a 200uL sampleo f whole blood analyzed by the instrument. Thi s value maydiffer from the NRBC v alue reported in a manual differential,wh ich is based on a 1 00 cell differenti al. JOAQUIN (test code = JOAQUIN) Ok to draw from PICC line. Lab Interpretation Abnormal (test code = 26253-6) [facility] w/o [id number] 14:40:57 Test Item Value Reference Range Interpretation Comments WBC (test code = 5.4 K/uL 4.0-11.0 6690-2) RBC (test code = 3.26 See_Comment L [Automated 789-8) message] The sy stem which generated this result transmitted reference range : 4.50 - 6.00 M/u L. The reference r sam was not used to interpret this result as normal/abnormal . Hgb (test code = 10.9 See_Comment L [Automated 718-7) message] The sy stem which generated this result transmitted reference range : 14.0 - 18.0 gm/ dL. The reference r sam was not used to interpret this result as normal/abnormal . Hct (test code = 30.8 % 40.0-54.0 L 4544-3) MCV (test code = 94 fL 82-98 787-2) MCH (test code = 33.4 pg 27.0-31.0 H 785-6) MCHC (test code = 35.4 See_Comment [Automate d 786-4) message] The sy stem which generated this result transmitted reference range : 31.0 - 36.0 gm/ dL. The reference r sam was not used to interpret this result as normal/abnormal . RDW-SD (test code = 59.7 fL 35.1-46.3 H 25495-8) RDW-CV (test code = 17.2 % 12.0-15.5 H 788-0) Platelet count (test 323 K/uL 140-440 code = 777-3) MPV (test code = 9.6 fL 4.0-10.4 45973-1) INRBC (test code = 0.0 % <=0.0 The INRBC 28074-2) (instrument NRB C) value reflects the enumerationof nucleated red b lood cells contained in a 200uL sampleo f whole blood analyzed by the instrument. Thi s value maydiffer from the NRBC v alue reported in a manual differential,wh ich is based on a 1 00 cell differenti al. JOAQUIN (test code = JOAQUIN) Ok to draw from PICC line. Lab Interpretation Abnormal (test code = 32150-3) [facility] Review 2021-10-23 21:38:00RMP PRReviewed and Electronically signed by Pathologist:Kwesi Tristan MD, PhD #[id number] [facility] [id number] 21:38:00RMP PRReviewed and Electronically signed by Pathologist:Kwesi Tristan MD, PhD #[id number] [facility] Path [id number] 21:38:00RMP PRReviewed and Electronically signed by Pathologist:Kwesi Tristan MD, PhD #[id number] [facility]leRes[facility] PCR Panel Path [id number] 21:38:00RMP PRReviewed and Electronically signed by Pathologist:Kwesi Tristan MD, PhD #[id number] [facility] Review 2021-10-23 21:38:00RMP PRReviewed and Electronically signed by Pathologist:Kwesi Tristan MD, PhD #[id number] [facility]leRes[facility] PCR Panel Path [id number] 21:38:00RMP PRReviewed and Electronically signed by Pathologist:Kwesi Tristan MD, PhD #[id number] [facility]leRespiratory PCR Panel Path [id number] 21:38:00RMP PRReviewed and Electronically signed by Pathologist:Kwesi Tristan MD, PhD #[id number] [facility] Path [id number] 21:38:00RMP PRReviewed and Electronically signed by Pathologist:Kwesi Tristan MD, PhD #[id number] [facility] HospitalRespiratory Viral Panel, Nasopharyngeal [id number] 23:50:33 Test Item Value Reference Range Interpretation Comments Adenovirus (test code = 4748) Not Detected Not Detected Coronavirus 229E (test code = Not Detected Not Detected 5349) Coronavirus HKU1 (test code = Not Detected Not Detected 5350) Coronavirus NL63 (test code = Not Detected Not Detected 5351) Coronavirus OC43 (test code = Not Detected Not Detected 5352) Human Metapneumovirus (test code Not Detected Not Detected = 6401) Human Rhinovirus/Enterovirus Not Detected Not Detected (test code = 7212) Influenza A (test code = 5618) Not Detected Not Detected Influenza A H1 (test code = Not Detected Not Detected 5619) Influenza A H1 2009 (test code = Not Detected Not Detected 5620) Influenza A H3 (test code = Not Detected Not Detected 5621) Influenza B (test code = 5622) Not Detected Not Detected Parainfluenza 1 (test code = Not Detected Not Detected 6779) Parainfluenza 2 (test code = Not Detected Not Detected 6780) Parainfluenza 3 (test code = Not Detected Not Detected 6781) Parainfluenza 4 (test code = Not Detected Not Detected 6782) Respiratory Syncytial Virus Not Detected Not Detected (test code = 7157) Bordetella pertussis (test code Not Detected Not Detected = 8924) Chlamydiophila pneumoniae (test Not Detected Not Detected code = 5139) Mycoplasma pneumoniae (test code Not Detected Not Detected = 6203) [facility], Nasoph[facility] [id number] 23:50:33 Test Item Value Reference Range Interpretation Comments Adenovirus (test code = 4748) Not Detected Not Detected Coronavirus 229E (test code = Not Detected Not Detected 5349) Coronavirus HKU1 (test code = Not Detected Not Detected 5350) Coronavirus NL63 (test code = Not Detected Not Detected 5351) Coronavirus OC43 (test code = Not Detected Not Detected 5352) Human Metapneumovirus (test code Not Detected Not Detected = 6401) Human Rhinovirus/Enterovirus Not Detected Not Detected (test code = 7212) Influenza A (test code = 5618) Not Detected Not Detected Influenza A H1 (test code = Not Detected Not Detected 5619) Influenza A H1 2009 (test code = Not Detected Not Detected 5620) Influenza A H3 (test code = Not Detected Not Detected 5621) Influenza B (test code = 5622) Not Detected Not Detected Parainfluenza 1 (test code = Not Detected Not Detected 6779) Parainfluenza 2 (test code = Not Detected Not Detected 6780) Parainfluenza 3 (test code = Not Detected Not Detected 6781) Parainfluenza 4 (test code = Not Detected Not Detected 6782) Respiratory Syncytial Virus Not Detected Not Detected (test code = 7157) Bordetella pertussis (test code Not Detected Not Detected = 4854) Chlamydiophila pneumoniae (test Not Detected Not Detected code = 5139) Mycoplasma pneumoniae (test code Not Detected Not Detected = 6203) [facility], [facility] [id number] 23:50:33 Test Item Value Reference Range Interpretation Comments Adenovirus (test code = 4748) Not Detected Not Detected Coronavirus 229E (test code = Not Detected Not Detected 5349) Coronavirus HKU1 (test code = Not Detected Not Detected 5350) Coronavirus NL63 (test code = Not Detected Not Detected 5351) Coronavirus OC43 (test code = Not Detected Not Detected 5352) Human Metapneumovirus (test code Not Detected Not Detected = 6401) Human Rhinovirus/Enterovirus Not Detected Not Detected (test code = 7212) Influenza A (test code = 5618) Not Detected Not Detected Influenza A H1 (test code = Not Detected Not Detected 5619) Influenza A H1 2009 (test code = Not Detected Not Detected 5620) Influenza A H3 (test code = Not Detected Not Detected 5621) Influenza B (test code = 5622) Not Detected Not Detected Parainfluenza 1 (test code = Not Detected Not Detected 6779) Parainfluenza 2 (test code = Not Detected Not Detected 6780) Parainfluenza 3 (test code = Not Detected Not Detected 6781) Parainfluenza 4 (test code = Not Detected Not Detected 6782) Respiratory Syncytial Virus Not Detected Not Detected (test code = 7157) Bordetella pertussis (test code Not Detected Not Detected = 4854) Chlamydiophila pneumoniae (test Not Detected Not Detected code = 5139) Mycoplasma pneumoniae (test code Not Detected Not Detected = 6203) [facility], Nasoph[facility] [id number] 23:50:33 Test Item Value Reference Range Interpretation Comments Adenovirus (test code = 4748) Not Detected Not Detected Coronavirus 229E (test code = Not Detected Not Detected 5349) Coronavirus HKU1 (test code = Not Detected Not Detected 5350) Coronavirus NL63 (test code = Not Detected Not Detected 5351) Coronavirus OC43 (test code = Not Detected Not Detected 5352) Human Metapneumovirus (test code Not Detected Not Detected = 6401) Human Rhinovirus/Enterovirus Not Detected Not Detected (test code = 7212) Influenza A (test code = 5618) Not Detected Not Detected Influenza A H1 (test code = Not Detected Not Detected 5619) Influenza A H1 2009 (test code = Not Detected Not Detected 5620) Influenza A H3 (test code = Not Detected Not Detected 5621) Influenza B (test code = 5622) Not Detected Not Detected Parainfluenza 1 (test code = Not Detected Not Detected 6779) Parainfluenza 2 (test code = Not Detected Not Detected 6780) Parainfluenza 3 (test code = Not Detected Not Detected 6781) Parainfluenza 4 (test code = Not Detected Not Detected 6782) Respiratory Syncytial Virus Not Detected Not Detected (test code = 7157) Bordetella pertussis (test code Not Detected Not Detected = 4854) Chlamydiophila pneumoniae (test Not Detected Not Detected code = 5139) Mycoplasma pneumoniae (test code Not Detected Not Detected = 6203) [facility] Nasopharyngeal [id number] 23:50:33 Test Item Value Reference Range Interpretation Comments Adenovirus (test code = 4748) Not Detected Not Detected Coronavirus 229E (test code = Not Detected Not Detected 5349) Coronavirus HKU1 (test code = Not Detected Not Detected 5350) Coronavirus NL63 (test code = Not Detected Not Detected 5351) Coronavirus OC43 (test code = Not Detected Not Detected 5352) Human Metapneumovirus (test code Not Detected Not Detected = 6401) Human Rhinovirus/Enterovirus Not Detected Not Detected (test code = 7212) Influenza A (test code = 5618) Not Detected Not Detected Influenza A H1 (test code = Not Detected Not Detected 5619) Influenza A H1 2009 (test code = Not Detected Not Detected 5620) Influenza A H3 (test code = Not Detected Not Detected 5621) Influenza B (test code = 5622) Not Detected Not Detected Parainfluenza 1 (test code = Not Detected Not Detected 6779) Parainfluenza 2 (test code = Not Detected Not Detected 6780) Parainfluenza 3 (test code = Not Detected Not Detected 6781) Parainfluenza 4 (test code = Not Detected Not Detected 6782) Respiratory Syncytial Virus Not Detected Not Detected (test code = 7157) Bordetella pertussis (test code Not Detected Not Detected = 4854) Chlamydiophila pneumoniae (test Not Detected Not Detected code = 5139) Mycoplasma pneumoniae (test code Not Detected Not Detected = 6203) [facility] Nasopharyngeal [id number] 23:50:33 Test Item Value Reference Range Interpretation Comments Adenovirus (test code = 4748) Not Detected Not Detected Coronavirus 229E (test code = Not Detected Not Detected 5349) Coronavirus HKU1 (test code = Not Detected Not Detected 5350) Coronavirus NL63 (test code = Not Detected Not Detected 5351) Coronavirus OC43 (test code = Not Detected Not Detected 5352) Human Metapneumovirus (test code Not Detected Not Detected = 6401) Human Rhinovirus/Enterovirus Not Detected Not Detected (test code = 7212) Influenza A (test code = 5618) Not Detected Not Detected Influenza A H1 (test code = Not Detected Not Detected 5619) Influenza A H1 2009 (test code = Not Detected Not Detected 5620) Influenza A H3 (test code = Not Detected Not Detected 5621) Influenza B (test code = 5622) Not Detected Not Detected Parainfluenza 1 (test code = Not Detected Not Detected 6779) Parainfluenza 2 (test code = Not Detected Not Detected 6780) Parainfluenza 3 (test code = Not Detected Not Detected 6781) Parainfluenza 4 (test code = Not Detected Not Detected 6782) Respiratory Syncytial Virus Not Detected Not Detected (test code = 7157) Bordetella pertussis (test code Not Detected Not Detected = 4854) Chlamydiophila pneumoniae (test Not Detected Not Detected code = 5139) Mycoplasma pneumoniae (test code Not Detected Not Detected = 6203) [facility] Nasoph[facility] [id number] 23:50:33 Test Item Value Reference Range Interpretation Comments Adenovirus (test code = 4748) Not Detected Not Detected Coronavirus 229E (test code = Not Detected Not Detected 5349) Coronavirus HKU1 (test code = Not Detected Not Detected 5350) Coronavirus NL63 (test code = Not Detected Not Detected 5351) Coronavirus OC43 (test code = Not Detected Not Detected 5352) Human Metapneumovirus (test code Not Detected Not Detected = 6401) Human Rhinovirus/Enterovirus Not Detected Not Detected (test code = 7212) Influenza A (test code = 5618) Not Detected Not Detected Influenza A H1 (test code = Not Detected Not Detected 5619) Influenza A H1 2009 (test code = Not Detected Not Detected 5620) Influenza A H3 (test code = Not Detected Not Detected 5621) Influenza B (test code = 5622) Not Detected Not Detected Parainfluenza 1 (test code = Not Detected Not Detected 6779) Parainfluenza 2 (test code = Not Detected Not Detected 6780) Parainfluenza 3 (test code = Not Detected Not Detected 6781) Parainfluenza 4 (test code = Not Detected Not Detected 6782) Respiratory Syncytial Virus Not Detected Not Detected (test code = 7157) Bordetella pertussis (test code Not Detected Not Detected = 4854) Chlamydiophila pneumoniae (test Not Detected Not Detected code = 5139) Mycoplasma pneumoniae (test code Not Detected Not Detected = 6203) [facility] Nasopharyngeal [id number] 23:50:33 Test Item Value Reference Range Interpretation Comments Adenovirus (test code = 4748) Not Detected Not Detected Coronavirus 229E (test code = Not Detected Not Detected 5349) Coronavirus HKU1 (test code = Not Detected Not Detected 5350) Coronavirus NL63 (test code = Not Detected Not Detected 5351) Coronavirus OC43 (test code = Not Detected Not Detected 5352) Human Metapneumovirus (test code Not Detected Not Detected = 6401) Human Rhinovirus/Enterovirus Not Detected Not Detected (test code = 7212) Influenza A (test code = 5618) Not Detected Not Detected Influenza A H1 (test code = Not Detected Not Detected 5619) Influenza A H1 2009 (test code = Not Detected Not Detected 5620) Influenza A H3 (test code = Not Detected Not Detected 5621) Influenza B (test code = 5622) Not Detected Not Detected Parainfluenza 1 (test code = Not Detected Not Detected 6779) Parainfluenza 2 (test code = Not Detected Not Detected 6780) Parainfluenza 3 (test code = Not Detected Not Detected 6781) Parainfluenza 4 (test code = Not Detected Not Detected 6782) Respiratory Syncytial Virus Not Detected Not Detected (test code = 7157) Bordetella pertussis (test code Not Detected Not Detected = 4854) Chlamydiophila pneumoniae (test Not Detected Not Detected code = 5139) Mycoplasma pneumoniae (test code Not Detected Not Detected = 6203) [facility]2021-10-22 15:43:23 Test Item Value Reference Range Interpretation Comments NT ProBNP (test code = 151 pg/mL See_Comment H [Aut omated message] 82259-8) The system Exhbit generated this result transmit elbert reference range : <=125. The refe rence range was not u sed to interpret th is result as normal/abnormal . Lab Interpretation (test Abnormal code = 59038-1) [facility]2021-10-22 15:43:23 Test Item Value Reference Range Interpretation Comments NT ProBNP (test code = 151 pg/mL See_Comment H [Aut omated message] 47113-9) The system Exh[employer] generated this result transmit elbert reference range : <=125. The refe rence range was not u sed to interpret th is result as normal/abnormal . Lab Interpretation (test Abnormal code = 89593-0) [facility]2021-10-22 15:43:23 Test Item Value Reference Range Interpretation Comments NT ProBNP (test code = 151 pg/mL See_Comment H [Aut omated message] 91750-9) The system Exh[employer] generated this result transmit elbert reference range : <=125. The refe rence range was not u sed to interpret th is result as normal/abnormal . Lab Interpretation (test Abnormal code = 84388-8) [facility]2021-10-22 15:43:23 Test Item Value Reference Range Interpretation Comments NT ProBNP (test code = 77559-3) 151 pg/mL <=125 H Lab Interpretation (test code = Abnormal 27614-8) [facility]2021-10-22 15:43:23 Test Item Value Reference Range Interpretation Comments NT ProBNP (test code = 70786-0) 151 pg/mL <=125 H Lab Interpretation (test code = Abnormal 93247-2) [facility]2021-10-22 15:43:23 Test Item Value Reference Range Interpretation Comments NT ProBNP (test code = 24694-7) 151 pg/mL <=125 H Lab Interpretation (test code = Abnormal 45532-3) [facility]2021-10-22 15:43:23 Test Item Value Reference Range Interpretation Comments NT ProBNP (test code = 39865-9) 151 pg/mL <=125 H Lab Interpretation (test code = Abnormal 72457-3) [facility]2021-10-22 15:43:23 Test Item Value Reference Range Interpretation Comments NT ProBNP (test code = 53452-8) 151 pg/mL <=125 H Lab Interpretation (test code = Abnormal 22317-2) [facility] CenterVB [id number] 15:07:44 Test Item Value Reference Range Interpretation Comments V Lactate (test code = 2519-7) 1.6 mmol/L 0.5-1.6 [facility]VB [id number] 15:07:44 Test Item Value Reference Range Interpretation Comments V Lactate (test code = 2519-7) 1.6 mmol/L 0.5-1.6 [facility] [id number] 15:07:44 Test Item Value Reference Range Interpretation Comments V Lactate (test code = 2519-7) 1.6 mmol/L 0.5-1.6 [facility] CenterCMV Ab IgG+IgM Path Review 2021-09-28 17:26:06CMV Panel PRPositive IgG with low IgM suggests previous infection. IVIG can give false positivity.High titers of IgG can give false negative IgM. Therefore, active disease ispossible but less likely with this pattern.Reviewed and Electronically signed by Pathologist:KAREL PABLO MD #[id number] [facility] CMV Ab IgG+IgM Path [id number] 17:26:06CMV Panel PRPositive IgG with low IgM suggests previous infection. IVIG can give false positivity.High titers of IgG can give false negative IgM. Therefore, active disease ispossible but less likely with this pattern.Reviewed and Electronically signed by Pathologist:KAREL PABLO MD #[id number] [facility]ENTERUn[facility] AzleCMV Ab IgG+IgM Path [id number] 17:26:06 CMV Panel PRPositive IgG with low IgM suggests previous infection. IVIG can give false positivity.High titers of IgG can give false negative IgM. Therefore, active disease ispossible but less likely with this pattern.Reviewed and Electronically signed by Pathologist:KAREL PABLO MD #[id number] [facility]ENTERUn[facility]leCMV Ab IgG+IgM Path Dtpyet3360-77-83 17:26:06CMV Panel PRPositive IgG with low IgM suggests previous infection. IVIG can give false positivity.High titers of IgG can give false negative IgM. Therefore, active disease ispossible but less likely with this pattern.Reviewed and Electronically signed by Pathologist:KAREL PABLO MD #[id number] [facility]Un[facility] CMV Ab IgG+IgM Path Payrar6866-77-15 17:26:06CMV Panel PRPositive IgG with low IgM suggests previous infection. IVIG can give false positivity.High titers of IgG can give false negative IgM. Therefore, active disease ispossible but less likely with this pattern.Reviewed and Electronically signed by Pathologist:KAREL PABLO MD #[id number] [facility]ENTERUn[facility]leCMV Ab IgG+IgM Path [id number] 17:26:06 CMV Panel PRPositive IgG with low IgM suggests previous infection. IVIG can give false positivity.High titers of IgG can give false negative IgM. Therefore, active disease ispossible but less likely with this pattern.Reviewed and Electronically signed by Pathologist:KAREL PABLO MD #[id number] [facility]ENTERUn[facility] AzleCMV Ab IgG+IgM Path [id number] 17:26:06CMV Panel PRPositive IgG with low IgM suggests previous infection. IVIG can give false positivity.High titers of IgG can give false negative IgM. Therefore, active disease ispossible but less likely with this pattern.Reviewed and Electronically signed by Pathologist:KAREL PABLO MD #[id number] [facility]Un[facility] CMV Ab IgG+IgM Path [id number] 17:26:06CMV Panel PRPositive IgG with low IgM suggests previous infection. IVIG can give false positivity.High titers of IgG can give false negative IgM. Therefore, active disease ispossible but less likely with this pattern.Reviewed and Electronically signed by Pathologist:KAREL PABLO MD #[id number] [facility]ENTERUn[facility] AzleHIV-1 DNA and RNA Qual [id number] 00:30:30 Test Item Value Reference Range Interpretation Comments HIV-1 Undetected Undetected Repeat testing in 1 to 2 months DNA/RNA is recommended for those atrisk [facility] of HIV-1 infect ion. (test code ----ADDITIONAL = 56651) INFORMATION---- Th is test was per formed using the [employer] RealTime HIV-1Qualitative assay ([employer] [facility] hospitalWarwick [employer] [place]) .This test was developed and i ts performance characteristics determined by [facility] in a manner consistent with CLIArequirement s. This test has not been cleare d or approved bythe U.S. Food and Drug Administration. Test Performed by:[facility] [id number] [place] [id number] Direct or: Mirza Nieto M.D. Ph. D.; CLIA# [id number] [facility]buryHIV-[facility] DNA and RNA Qual PCR 2021-09-27 00:30:30 Test Item Value Reference Range Interpretation Comments HIV-1 Undetected Undetected Repeat testing in 1 to 2 months DNA/RNA is recommended for those [facility] of HIV-1 infect ion. (test code ----ADDITIONAL = 43761) INFORMATION---- Th is test was per formed using the [employer] RealTime HIV-1Qualitative assay ([employer] [place]) .This test was developed and i ts performance characteristics determined by [facility] in a manner consistent with CLIArequirement s. This test has not been cleare d or approved bythe U.S. Food and Drug Administration. Test Performed by:[facility] - [address] [id number] Direct or: Mirza Nieto M.D. Ph. D.; CLIA# [id number] [facility]buryHIV-1 DNA and RNA Qual PCR 2021-09-27 00:30:30 Test Item Value Reference Range Interpretation Comments HIV-1 Undetected Undetected Repeat testing in 1 to 2 months DNA/RNA is recommended for those [facility] of HIV-1 infect ion. (test code ----ADDITIONAL = 72021) INFORMATION---- Th is test was per formed using the [employer] RealTime HIV-1Qualitative assay ([place] [place]) .This test was developed and i ts performance characteristics determined by [facility] in a manner consistent with CLIArequirement s. This test has not been cleare d or approved bythe U.S. Food and Drug Administration. Test Performed by:[facility] [employer] [place] [id number] Direct or: Mirza Nieto M.D. Ph. D.; CLIA# [id number] [facility]HIV-1 DNA and RNA Qual PCR 2021-09-27 00:30:30 Test Item Value Reference Range Interpretation Comments HIV-1 Undetected Undetected Repeat testing in 1 to 2 months DNA/RNA is recommended for those [facility] of HIV-1 infect ion. (test code ----ADDITIONAL = 88693) INFORMATION---- Th is test was per formed using the [employer] RealTime HIV-1Qualitative assay ([place] [place]) .This test was developed and i ts performance characteristics determined by [facility] in a manner consistent with CLIArequirement s. This test has not been cleare d or approved bythe U.S. Food and Drug Administration. Test Performed by:[facility] [employer] [place] [id number] Direct or: Mirza Nieto M.D. Ph. D.; CLIA# [id number] [facility]HIV-1 DNA and RNA Qual PCR 2021-09-27 00:30:30 Test Item Value Reference Range Interpretation Comments HIV-1 Undetected Undetected Repeat testing in 1 to 2 months DNA/RNA is recommended for those [facility] of HIV-1 infect ion. (test code ----ADDITIONAL = 20836) INFORMATION---- Th is test was per formed using the [employer] RealTime HIV-1Qualitative assay ([place] [place]) .This test was developed and i ts performance characteristics determined by [facility] in a manner consistent with CLIArequirement s. This test has not been cleare d or approved bythe U.S. Food and Drug Administration. Test Performed by:[facility] [employer] [place] [id number] Direct or: Mirza Nieto M.D. Ph. D.; CLIA# [id number] [facility]HIV-1 DNA and RNA Qual PCR 2021-09-27 00:30:30 Test Item Value Reference Range Interpretation Comments HIV-1 Undetected Undetected Repeat testing in 1 to 2 months DNA/RNA is recommended for those [facility] of HIV-1 infect ion. (test code ----ADDITIONAL = 44174) INFORMATION---- Th is test was per formed using the [employer] RealTime HIV-1Qualitative assay ([place] [place]) .This test was developed and i ts performance characteristics determined by [facility] in a manner consistent with CLIArequirement s. This test has not been cleare d or approved bythe U.S. Food and Drug Administration. Test Performed by:[facility] [employer] [place] [id number] Direct or: Mirza Nieto M.D. Ph. D.; CLIA# [id number] [facility]-1 DNA and RNA Qual PCR 2021-09-27 00:30:30 Test Item Value Reference Range Interpretation Comments HIV-1 Undetected Undetected Repeat testing in 1 to 2 months DNA/RNA is recommended for those [facility] of HIV-1 infect ion. (test code ----ADDITIONAL = 45412) INFORMATION---- Th is test was per formed using the [employer] RealTime HIV-1Qualitative assay ([place] [place]) .This test was developed and i ts performance characteristics determined by [facility] in a manner consistent with CLIArequirement s. This test has not been cleare d or approved bythe U.S. Food and Drug Administration. Test Performed by:[facility] [employer] [id number] [place], [place] [id number] Direct or: Mirza Nieto M.D. Ph. D.; CLIA# [id number] [facility] and RNA Qual PCR 2021-09-27 00:30:30 Test Item Value Reference Range Interpretation Comments HIV-1 Undetected Undetected Repeat testing in 1 to 2 months DNA/RNA is recommended for those atrisk [employer] of HIV-1 infect ion. (test code ----ADDITIONAL = 05422) INFORMATION---- Th is test was per formed using the [employer] RealTime HIV-1Qualitative assay ([employer] [place]) .This test was developed and i ts performance characteristics determined by [facility] in a manner consistent with CLKayequirement s. This test has not been cleare d or approved bythe U.S. Food and Drug Administration. Test Performed by:[facility] [employer] [id number] [place], [place] [id number] Direct or: Mirza Nieto M.D. Ph. D.; CLIA# [id number] [facility]CMV Ab IgG+[id number] 20:39:35 Test Item Value Reference Range Interpretation Comments CMV IgM Int (test code = 5219) Negative Negative CMV IgG Int (test code = 5217) Positive Negative A Lab Interpretation (test code = Abnormal 96865-5) [facility]CMV Ab IgG+[id number] 20:39:35 Test Item Value Reference Range Interpretation Comments CMV IgM Int (test code = 5219) Negative Negative CMV IgG Int (test code = 5217) Positive Negative A Lab Interpretation (test code = Abnormal 84797-0) [facility]CMV Ab IgG+[id number] 20:39:35 Test Item Value Reference Range Interpretation Comments CMV IgM Int (test code = 5219) Negative Negative CMV IgG Int (test code = 5217) Positive Negative A Lab Interpretation (test code = Abnormal 88415-1) [facility] IgG+[id number] 20:39:35 Test Item Value Reference Range Interpretation Comments CMV IgM Int (test code = 5219) Negative Negative CMV IgG Int (test code = 5217) Positive Negative A Lab Interpretation (test code = Abnormal 23269-0) [facility] IgG+OgC3879-03-82 20:39:35 Test Item Value Reference Range Interpretation Comments CMV IgM Int (test code = 5219) Negative Negative CMV IgG Int (test code = 5217) Positive Negative A Lab Interpretation (test code = Abnormal 38766-2) [facility] IgG+[id number] 20:39:35 Test Item Value Reference Range Interpretation Comments CMV IgM Int (test code = 5219) Negative Negative CMV IgG Int (test code = 5217) Positive Negative A Lab Interpretation (test code = Abnormal 44546-6) [facility] IgG+[id number] 20:39:35 Test Item Value Reference Range Interpretation Comments CMV IgM Int (test code = 5219) Negative Negative CMV IgG Int (test code = 5217) Positive Negative A Lab Interpretation (test code = Abnormal 96854-4) [facility] IgG+[id number] 20:39:35 Test Item Value Reference Range Interpretation Comments CMV IgM Int (test code = 5219) Negative Negative CMV IgG Int (test code = 5217) Positive Negative A Lab Interpretation (test code = Abnormal 28783-2) [facility] Lq3703-66-71 16:27:56 Test Item Value Reference Range Interpretation Comments HBe Ab-Sanchez (test Negative Negative Test Perf ormed by:Wilmerding code = 32752-0) [facility] [employer] Ulqov[address] [place], [place] [address]Ebz Director: Jose L Nieto M.D. Ph. D.; CLIA# [id number] [facility] Ck1602-22-52 16:27:56 Test Item Value Reference Range Interpretation Comments HBe Ab-Sanchez (test Negative Negative Test Perf ormed by:Wilmerding code = 76146-2) [facility] Super ior Wxhau[address] [place], [place] [address]Kuw Director: Jose L Nieto M.D. Ph. D.; CLIA# [id number] [facility] [id number] 16:27:56 Test Item Value Reference Range Interpretation Comments HBe Ab-Sanchez (test Negative Negative Test Perf ormed by:Wilmerding code = 53368-7) [facility] Indisys ior Rswvg4319 Indisys ior [address] [place] [id number] Director: Jose L Nieto M.D. Ph. D.; CLIA# [id number] [facility] [id number] 16:27:56 Test Item Value Reference Range Interpretation Comments HBe Ab-Sanchez (test Negative Negative Test Perf ormed by:Wilmerding code = 73309-4) [facility] Ind[employer] ior Bxkit6173 [address] [place], [place] [address]Tdb Director: Jose L Nieto M.D. Ph. D.; CLIA# [id number] [facility] Nq1370-64-65 16:27:56 Test Item Value Reference Range Interpretation Comments HBe Ab-Sanchez (test Negative Negative Test Perf ormed by:Wilmerding code = 91707-9) [facility] Indisys ior Eyioi0915 [address] [place], [place] [address]Ihv Director: Jose L Nieto M.D. Ph. D.; CLIA# [id number] [facility] Wm3859-10-41 16:27:56 Test Item Value Reference Range Interpretation Comments HBe Ab-Sanchez (test Negative Negative Test Perf ormed by:Wilmerding code = 40899-8) [facility] Indis[employer] ior Ocbqu[address] [place], [place] [address]Plr Director: Jose L Nieto M.D. Ph. D.; CLIA# [id number] [facility] [id number] 16:27:56 Test Item Value Reference Range Interpretation Comments HBe Ab-Sanchez (test Negative Negative Test Perf ormed by:Wilmerding code = 36029-2) [facility] Ind[employer] ior Klngx8838 [address] [place], [place] [address]Fve Director: Jose L Nieto M.D. Ph. D.; CLIA# [id number] [facility] CenterHepatitis Be [id number] 16:27:56 Test Item Value Reference Range Interpretation Comments HBe Ab-Wilmerding (test Negative Negative Test Perf ormed by:Wilmerding code = 69605-5) [facility] Indisys ior Moljr[address] [place], [place] [address]Iro Director: Jose L Nieto M.D. Ph. D.; CLIA# [id number] [facility] CenterHeuofl [facility] B IgM Core Ab (CONFIRM ACUTE INFECTION ONLY) (anti-HBc IgM; HBcAb IgM)2021-09-26 16:17:35 Test Item Value Reference Range Interpretation Comments Hep B Core IgM-Wilmerding Negative Negative Test Pe rformed by:Wilmerding (test code = [facility] - 05211-0) [facility] [employer] Gksrl[address] [place], [place] [address]Hyx Director: Jose L Nieto M.D. Ph. D.; CLIA# [id number] [facility] CenterHead[facility] B IgM Core Ab (CONFIRM ACUTE INFECTION ONLY) (anti-HBc IgM; HBcAb IgM)2021-09-26 16:17:35 Test Item Value Reference Range Interpretation Comments Hep B Core IgM-Wilmerding Negative Negative Test Pe rformed by:Wilmerding (test code = [facility] - 33728-8) [facility] [employer] Wbsdm7702 [address] [place], [place] [address]Ofv Director: Jose L Nieto M.D. Ph. D.; CLIA# [id number] [facility] CenterHe[facility] B IgM Core Ab (CONFIRM ACUTE INFECTION ONLY) (anti-HBc IgM; HBcAb IgM)2021-09-26 16:17:35 Test Item Value Reference Range Interpretation Comments Hep B Core IgM-Wilmerding Negative Negative Test Pe rformed by:Wilmerding (test code = [facility] - 83908-5) [facility] [employer] Byjyr[address] [place], [place] [address]Hxo Director: Jose L Nieto M.D. Ph. D.; CLIA# [id number] [facility] CenterHepatitis B IgM Core Ab (CONFIRM ACUTE INFECTION ONLY) (anti-HBc IgM; HBcAb IgM)2021-09-26 16:17:35 Test Item Value Reference Range Interpretation Comments Hep B Core IgM-Wilmerding Negative Negative Test Pe rformed by:Wilmerding (test code = [facility] - 32566-2) [facility] [address] [place] [id number] Director: Jose L Nieto M.D. Ph. D.; CLIA# [id number] [facility] CenterHepatitis B IgM Core Ab (CONFIRM ACUTE INFECTION ONLY) (anti-HBc IgM; HBcAb IgM)2021-09-26 16:17:35 Test Item Value Reference Range Interpretation Comments Hep B Core IgM-Wilmerding Negative Negative Test Pe rformed by:Wilmerding (test code = [facility] - 46959-4) [facility] [facility] [place] [id number] Director: Jose L Nieto M.D. Ph. D.; CLIA# [id number] [facility] CenterHepatitis B IgM Core Ab (CONFIRM ACUTE INFECTION ONLY) (anti-HBc IgM; HBcAb IgM)2021-09-26 16:17:35 Test Item Value Reference Range Interpretation Comments Hep B Core IgM-Wilmerding Negative Negative Test Pe rformed by:Wilmerding (test code = [facility] - 19751-2) [facility] [address] [place], [place] [address]Ndu Director: Jose L Nieto M.D. Ph. D.; CLIA# [id number] [facility] CenterHepatitis B IgM Core Ab (CONFIRM ACUTE INFECTION ONLY) (anti-HBc IgM; HBcAb IgM)2021-09-26 16:17:35 Test Item Value Reference Range Interpretation Comments Hep B Core IgM-Wilmerding Negative Negative Test Pe rformed by:Wilmerding (test code = [facility] - 50210-8) [facility] [address] [place], [place] [address]Flf Director: Jose L Nieto M.D. Ph. D.; CLIA# [id number] [facility] B IgM Core Ab (CONFIRM ACUTE INFECTION ONLY) (anti-HBc IgM; HBcAb IgM)2021-09-26 16:17:35 Test Item Value Reference Range Interpretation Comments Hep B Core IgM-Wilmerding Negative Negative Test Pe rformed by:Wilmerding (test code = [facility] - 86494-0) [facility] [employer] ior Wdlsg2446 [address] [place] [id number] Director: Jose L Nieto M.D. Ph. D.; CLIA# [id number] [facility] [id number] 16:12:45 Test Item Value Reference Range Interpretation Comments HBe Ag-Wilmerding (test Negative Negative Test Perf ormed by:Wilmerding code = 37369-3) [facility] ior Hlsto1083 [address] [place] [id number] Director: oJse L Nieto M.D. Ph. D.; CLIA# [id number] [facility]2022-06-01 16:12:45 Test Item Value Reference Range Interpretation Comments HBe Ag-Wilmerding (test Negative Negative Test Perf ormed by:Wilmerding code = 80749-6) [facility] Indisys ior Ltrec[address] [place] [id number] Director: Jose L Nieto M.D. Ph. D.; CLIA# [id number] [facility]2022-06-01 16:12:45 Test Item Value Reference Range Interpretation Comments HBe Ag-Wilmerding (test Negative Negative Test Perf ormed by:Wilmerding code = 56672-1) [facility] Indisys ior Pkbnk[address] [place], [place] [address]Ruv Director: Jose L Nieto M.D. Ph. D.; CLIA# [id number] [facility] [id number] 16:12:45 Test Item Value Reference Range Interpretation Comments HBe Ag-Wilmerding (test Negative Negative Test Perf ormed by:Wilmerding code = 36824-5) [facility] ior Uzlca[address] [place], [place] [address]Jgf Director: Jose L Nieto M.D. Ph. D.; CLIA# [id number] [facility] Rp6854-45-76 16:12:45 Test Item Value Reference Range Interpretation Comments HBe Ag-Sanchez (test Negative Negative Test Perf ormed by:Wilmerding code = 72188-6) [facility] Ind[employer] ior Xtwsu0263 Indisys i[address] [place] [id number] Director: Jose L Nieto M.D. Ph. D.; CLIA# [id number] [facility]2022-06-01 16:12:45 Test Item Value Reference Range Interpretation Comments HBe Ag-Sanchez (test Negative Negative Test Perf ormed by:Wilmerding code = 32512-5) [facility] ior Halsc6555 Indisys i[address] [place] [id number] Director: Jose L Nieto M.D. Ph. D.; CLIA# [id number] [facility]2022-06-01 16:12:45 Test Item Value Reference Range Interpretation Comments HBe Ag-Sanchez (test Negative Negative Test Perf ormed by:Wilmerding code = 47308-6) [facility] ior Ttdpx4806 [address] [place], [place] [address]Uqn Director: Jose L Nieto M.D. Ph. D.; CLIA# [id number] [facility]2022-06-01 16:12:45 Test Item Value Reference Range Interpretation Comments HBe Ag-Sanchez (test Negative Negative Test Perf ormed by:Wilmerding code = 99976-1) [facility] Indisys ior Apjep4954 [address] [place], [place] [address]Hso Director: Jose L Nieto M.D. Ph. D.; CLIA# [id number] [facility] CenterFlow Cytometry Specimen Collection -Bone Lcgijo5134-43-79 14:01:59 Test Item Value Reference Range Interpretation Comments Flow Cytometry Yes Test performe d by:The (Received) (test code Nabila black [facility] MD = 8319[facility]Flow Cyto metry Lcucschgca4174 [place] [address] Beaker Ap Link (test [id number] code = 66896) [facility] CenterFlow Cytometry Specimen Collection -Bone Mmtjos2381-84-80 14:01:59 Test Item Value Reference Range Interpretation Comments Flow Cytometry Yes Test performe d by:The (Received) (test code [facility] MD = 8319) [facility]Flow Cyto metry Nryosyfchp1759 [place] [address] Beaker Ap Link (test [id number] code = 89364) [facility] CenterFlow Cytometry Specimen Collection -Bone Oxekhe0024-87-85 14:01:59 Test Item Value Reference Range Interpretation Comments Flow Cytometry Yes Test performe d by:The (Received) (test code [facility] = 8319) [facility] Cyto metry Iqpcartesy5832 [place] [address] Beaker Ap Link (test [id number] code = 17685) [facility] CenterMolecular Diagnostics Specimen Collection -Bone Mfiyta1628-69-83 20:29:07 Test Item Value Reference Range Interpretation Comments Molecular Diagnostics (Received) Yes (test code = 8400) Jerodaker Ap Link (test code = 38491) [id number] [facility] Specimen Collection -Bone Jgzcrm5887-09-09 20:29:07 Test Item Value Reference Range Interpretation Comments Molecular Diagnostics (Received) Yes (test code = 8400) Jerodaker Ap Link (test code = 50502) [id number] [facility] Specimen Collection -Bone Xqjhmk6593-52-42 20:29:07 Test Item Value Reference Range Interpretation Comments Molecular Diagnostics (Received) Yes (test code = 8400) Jerodaker Ap Link (test code = 00009) [id number] [facility] CenterMolecular [facility]ostics Specimen Collection -Bone Fgcrww5807-44-95 20:29:07 Test Item Value Reference Range Interpretation Comments Molecular Diagnostics (Received) Yes (test code = 8400) Jerodaker Ap Link (test code = 95479) [id number] [facility] CenterMolecular [facility]ostics Specimen Collection -Bone Cudggq3393-89-92 20:29:07 Test Item Value Reference Range Interpretation Comments Molecular Diagnostics (Received) Yes (test code = 8400) Sd Ap Link (test code = 27618) [id number] [facility] Spec[facility] -Bone Lyygst7196-29-52 20:29:07 Test Item Value Reference Range Interpretation Comments Molecular Diagnostics (Received) Yes (test code = 8400) Sd Ap Link (test code = 85411) [id number] [facility] Specimen Collection -Bone Tvybpg4488-80-79 20:29:07 Test Item Value Reference Range Interpretation Comments Molecular Diagnostics (Received) Yes (test code = 8400) Sd Ap Link (test code = 02462) [id number] [facility] Specimen Collection -Bone Axsbrj8678-72-74 20:29:07 Test Item Value Reference Range Interpretation Comments Molecular Diagnostics (Received) Yes (test code = 8400) Sd Ap Link (test code = 55385) [id number] [facility] TP53 Collection, Nonood 2021-09-25 20:28:10 Test Item Value Reference Range Interpretation Comments Molecular Diagnostics (Received) (test Yes code = 8400) [facility] TP53 Collection, Nonblood 2021-09-25 20:28:10 Test Item Value Reference Range Interpretation Comments Molecular Diagnostics (Received) (test Yes code = 8400) [facility] TP53 Collection, Nonblood 2021-09-25 20:28:10 Test Item Value Reference Range Interpretation Comments Molecular Diagnostics (Received) (test Yes code = 8400) [facility] TP53 [facility], [facility] 2021-09-25 20:28:10 Test Item Value Reference Range Interpretation Comments Molecular Diagnostics (Received) (test Yes code = 8400) [facility] TP53 Collection, [facility] 2021-09-25 20:28:10 Test Item Value Reference Range Interpretation Comments Molecular Diagnostics (Received) (test Yes code = 8400) [facility] TP53 Collection, Nonblood 2021-09-25 20:28:10 Test Item Value Reference Range Interpretation Comments Molecular Diagnostics (Received) (test Yes code = 8400) [facility] TP[facility] 2021-09-25 20:28:10 Test Item Value Reference Range Interpretation Comments Molecular Diagnostics (Received) (test Yes code = 8400) [facility] TP53 Collection, [facility] 2021-09-25 20:28:10 Test Item Value Reference Range Interpretation Comments Molecular Diagnostics (Received) (test Yes code = 8400) [facility] MYD88 Mutation Analysis Collection, Bqblnbdi2271-04-63 20:28:09 Test Item Value Reference Range Interpretation Comments Molecular Diagnostics (Received) (test Yes code = 8400) [facility] MYD88 Mutation Analysis Collection, Ihtjtaup1139-01-19 20:28:09 Test Item Value Reference Range Interpretation Comments Molecular Diagnostics (Received) (test Yes code = 8400) [facility] MYD88 Mutation Analysis Collection, Csvvndeo4470-91-15 20:28:09 Test Item Value Reference Range Interpretation Comments Molecular Diagnostics (Received) (test Yes code = 8400) [facility] MYD88 Mutation Analysis Collection, Awywlmnq5201-73-74 20:28:09 Test Item Value Reference Range Interpretation Comments Molecular Diagnostics (Received) (test Yes code = 8400) [facility] MYD88 Mutation Analysis Collection, Ixyybarz1329-97-83 20:28:09 Test Item Value Reference Range Interpretation Comments Molecular Diagnostics (Received) (test Yes code = 8400) [facility] MYD88 Mutation Analysis Collection, Obthrasx8080-73-00 20:28:09 Test Item Value Reference Range Interpretation Comments Molecular Diagnostics (Received) (test Yes code = 8400) [facility] MYD88 Mutation Analysis Collection, Tqgpjbxa1698-87-75 20:28:09 Test Item Value Reference Range Interpretation Comments Molecular Diagnostics (Received) (test Yes code = 8400) [facility] MYD88 Mutation Analysis Collection, Xskuoeql0646-18-96 20:28:09 Test Item Value Reference Range Interpretation Comments Molecular Diagnostics (Received) (test Yes code = 8400) [facility] CenterCytogenetics Specimen Collection - Bone Gowuyz0422-78-59 20:21:07 Test Item Value Reference Range Interpretation Comments Beaker Ap Link (test code = 20912) [id number] Cytogenetics (Received) (test code Yes = 8304) [facility] CenterCytogenetics Specimen Collection - Bone Dbalhm2145-38-15 20:21:07 Test Item Value Reference Range Interpretation Comments Beaker Ap Link (test code = 75220) [id number] Cytogenetics (Received) (test code Yes = 8304) [facility] CenterCytogenetics Specimen Collection - Bone Lvexqe2663-72-02 20:21:07 Test Item Value Reference Range Interpretation Comments Beaker Ap Link (test code = 11806) [id number] Cytogenetics (Received) (test code Yes = 8304) [facility] CenterCytogenetics Specimen Collection - Bone Uknfbh8563-40-53 20:21:07 Test Item Value Reference Range Interpretation Comments Beaker Ap Link (test code = 10240) [id number] Cytogenetics (Received) (test code Yes = 8304) [facility] CenterCyt[facility] Specimen Collection - Bone Lwkryu9723-51-94 20:21:07 Test Item Value Reference Range Interpretation Comments Beaker Ap Link (test code = 27733) [id number] Cytogenetics (Received) (test code Yes = 8304) [facility] CenterCyt[facility]etics Specimen Collection - Bone Qrhyle3160-18-50 20:21:07 Test Item Value Reference Range Interpretation Comments Beaker Ap Link (test code = 90806) [id number] Cytogenetics (Received) (test code Yes = 8304) [facility] CenterC[facility] Specimen Collection - Bone Mglklk2600-99-26 20:21:07 Test Item Value Reference Range Interpretation Comments Beaker Ap Link (test code = 60848) [id number] Cytogenetics (Received) (test code Yes = 8304) [facility] CenterC[facility] Specimen Collection - Bone Gejonp4672-53-77 20:21:07 Test Item Value Reference Range Interpretation Comments Beaker Ap Link (test code = 83109) [id number] Cytogenetics (Received) (test code Yes = 8304) [facility]C MYC FISH Collection, Nonblood 2021-09-25 19:48:44 Test Item Value Reference Range Interpretation Comments Cytogenetics (Received) (test code = Yes 8304) [facility] MYC FISH Collection, Nonood 2021-09-25 19:48:44 Test Item Value Reference Range Interpretation Comments Cytogenetics (Received) (test code = Yes 8304) [facility]C [facility], [facility] 2021-09-25 19:48:44 Test Item Value Reference Range Interpretation Comments Cytogenetics (Received) (test code = Yes 8304) [facility] MYC FISH [facility], [facility] 2021-09-25 19:48:44 Test Item Value Reference Range Interpretation Comments Cytogenetics (Received) (test code = Yes 8304) [facility] MYC FISH Collection, [facility] 2021-09-25 19:48:44 Test Item Value Reference Range Interpretation Comments Cytogenetics (Received) (test code = Yes 8304) [facility] MYC FISH Collection, [facility] 2021-09-25 19:48:44 Test Item Value Reference Range Interpretation Comments Cytogenetics (Received) (test code = Yes 8304) [facility] MYC FISH Collection, Nonood 2021-09-25 19:48:44 Test Item Value Reference Range Interpretation Comments Cytogenetics (Received) (test code = Yes 8304) [facility] MYC FISH Collection, [facility] 2021-09-25 19:48:44 Test Item Value Reference Range Interpretation Comments Cytogenetics (Received) (test code = Yes 8304) [facility] Chromosome Analysis Collection, Gyvyjhgt4771-57-39 19:48:43 Test Item Value Reference Range Interpretation Comments Cytogenetics (Received) (test code = Yes 8304) [facility] Chromosome Analysis Collection, Tqggqsqi8565-76-60 19:48:43 Test Item Value Reference Range Interpretation Comments Cytogenetics (Received) (test code = Yes 8304) [facility] Chromosome Analysis Collection, Kghzhrfd4812-59-00 19:48:43 Test Item Value Reference Range Interpretation Comments Cytogenetics (Received) (test code = Yes 8304) [facility] Chromosome Analysis Collection, Wkuouomf9110-94-00 19:48:43 Test Item Value Reference Range Interpretation Comments Cytogenetics (Received) (test code = Yes 8304) [facility] Chromosome Analysis Collection, Odsentzt7222-66-43 19:48:43 Test Item Value Reference Range Interpretation Comments Cytogenetics (Received) (test code = Yes 8304) [facility] Chromosome Analysis Collection, Hjueqigh8868-75-42 19:48:43 Test Item Value Reference Range Interpretation Comments Cytogenetics (Received) (test code = Yes 8304) [facility] Chromosome Analysis Collection, Trgsmenw8475-77-04 19:48:43 Test Item Value Reference Range Interpretation Comments Cytogenetics (Received) (test code = Yes 8304) [facility] Chromosome Analysis Collection, [id number] 19:48:43 Test Item Value Reference Range Interpretation Comments Cytogenetics (Received) (test code = Yes 8304) [facility] BCL6 FISH Collection, [facility] 2021-09-25 19:48:42 Test Item Value Reference Range Interpretation Comments Cytogenetics (Received) (test code = Yes 8304) [facility] BCL6 FISH Collection, [facility] 2021-09-25 19:48:42 Test Item Value Reference Range Interpretation Comments Cytogenetics (Received) (test code = Yes 8304) [facility] BCL6 FISH Collection, [facility] 2021-09-25 19:48:42 Test Item Value Reference Range Interpretation Comments Cytogenetics (Received) (test code = Yes 8304) [facility] BCL6 FISH Collection, [facility] 2021-09-25 19:48:42 Test Item Value Reference Range Interpretation Comments Cytogenetics (Received) (test code = Yes 8304) [facility] BCL6 FISH Collection, [facility] 2021-09-25 19:48:42 Test Item Value Reference Range Interpretation Comments Cytogenetics (Received) (test code = Yes 8304) [facility] BCL6 FISH Collection, [facility] 2021-09-25 19:48:42 Test Item Value Reference Range Interpretation Comments Cytogenetics (Received) (test code = Yes 8304) [facility] BCL6 FISH Collection, Nonblood 2021-09-25 19:48:42 Test Item Value Reference Range Interpretation Comments Cytogenetics (Received) (test code = Yes 8304) [facility] BCL6 FISH Collection, Nonblood 2021-09-25 19:48:42 Test Item Value Reference Range Interpretation Comments Cytogenetics (Received) (test code = Yes 8304) [facility] with Confirm 2021-09-25 19:44:59 Test Item Value Reference Range Interpretation Comments HTLV I/II Ab Negative Negative Test Performed by:[facility] (test [facility] oratories - code = 13172-7) [facility] [address] [place], [place] [address]Lab Director: Jose L Nieto M.D. Ph. D.; CLIA# [id number] [facility]HT[facility]II Ab Screen with Confirm 2021-09-25 19:44:59 Test Item Value Reference Range Interpretation Comments HTLV I/II Ab Negative Negative Test Performed by:[facility] (test [facility] or[facility] - code = 63807-0) [facility] [address] [place], [place] [address]Lab Director: Jose L Nieto M.D. Ph. D.; CLIA# [id number] [facility]HT[facility]II Ab Screen with Confirm 2021-09-25 19:44:59 Test Item Value Reference Range Interpretation Comments HTLV I/II Ab Negative Negative Test Performed by:[facility] (test Clinic Lab oratories - code = 95361-6) [facility] [employer] [place] [id number] Director: Jose L Nieto M.D. Ph. D.; CLIA# [id number] [facility]HT[facility]II [facility] Screen with Confirm 2021-09-25 19:44:59 Test Item Value Reference Range Interpretation Comments HTLV I/II Ab Negative Negative Test Performed by:[facility] (test Clinic Lab oratories - code = 94927-0) [facility] [address] [place], [place] [address]Wfe Director: Jose L Nieto M.D. Ph. D.; CLIA# [id number] [facility]HT[facility]II Ab Screen with Confirm 2021-09-25 19:44:59 Test Item Value Reference Range Interpretation Comments HTLV I/II Ab Negative Negative Test Performed by:[facility] (test Clinic Lab oratories - code = 71476-5) [facility] [address] [place], [place] [address]Smw Director: Jose L Nieto M.D. Ph. D.; CLIA# [id number] [facility]HT[facility]II Ab Screen with Confirm 2021-09-25 19:44:59 Test Item Value Reference Range Interpretation Comments HTLV I/II Ab Negative Negative Test Performed by:[facility] (test Clinic Lab oratories - code = 48807-5) [facility] [address] [place], [place] [address]Ciy Director: Jose L Nieto M.D. Ph. D.; CLIA# [id number] [facility]HT[facility]II Ab Screen with Confirm 2021-09-25 19:44:59 Test Item Value Reference Range Interpretation Comments HTLV I/II Ab Negative Negative Test Performed by:[facility] (test Clinic Lab oratories - code = 78575-6) [facility] [address] [place], [place] [address]Zdz Director: Jose L Nieto M.D. Ph. D.; CLIA# [id number] [facility]HT[facility]II Ab Screen with Confirm 2021-09-25 19:44:59 Test Item Value Reference Range Interpretation Comments HTLV I/II Ab Negative Negative Test Performed by:[facility] (test Clinic Lab oratories - code = 18770-1) [facility] [address] [place], [place] [address]Wnl Director: Jose L Nieto M.D. Ph. D.; CLIA# [id number] [facility] CenterCreat[facility] [id number] 08:17:15 Test Item Value Reference Range Interpretation Comments CK (test code = 2157-6) 276 U/L 39-308 [facility] Center[facility] [id number] 08:17:15 Test Item Value Reference Range Interpretation Comments CK (test code = 2157-6) 276 U/L 39-308 [facility] [id number] 08:17:15 Test Item Value Reference Range Interpretation Comments CK (test code = 2157-6) 276 U/L 39-308 [facility] Center[facility] [id number] 08:17:15 Test Item Value Reference Range Interpretation Comments CK (test code = 2157-6) 276 U/L 39-308 [facility] Center[facility] [id number] 08:17:15 Test Item Value Reference Range Interpretation Comments CK (test code = 2157-6) 276 U/L 39-308 [facility] Center[facility] Suuras2712-42-11 08:17:15 Test Item Value Reference Range Interpretation Comments CK (test code = 2157-6) 276 U/L 39-308 [facility] [id number] 08:17:15 Test Item Value Reference Range Interpretation Comments CK (test code = 2157-6) 276 U/L 39-308 [facility] CenterCreat[facility] [id number] 08:17:15 Test Item Value Reference Range Interpretation Comments CK (test code = 2157-6) 276 U/L 39-308 [facility] CenterTMP RPR Path Interpretation 2021-09-23 12:13:35 Test Item Value Reference Interpretation Comments Range TMP RPR Path The Rapid Plasma Interpretation (test Reagin (RPR) code = 340856) assay is F LEUR negative. If a THIERNO RENTERIA MD - syphilis 98158Waivxlki b y: infection is ELZA THIERNO RENTERIA MD - suspected, 45771Trupickt please perform a Date/Time: Treponemal 09.23.2021 7:13 AM specific CDT Transcribed screening assay. Date/Time: 09.23.2021 7:13 AM CDTElectronical ly Signed By: MD Quentin CARO [id number] on 09.23.2021 7:13 AM C [facility] RPR Path Interpretation 2021-09-23 12:13:35 Test Item Value Reference Interpretation Comments Range TMP RPR Path The Rapid Plasma Interpretation (test Reagin (RPR) code = 388690) assay is F LEUR negative. If a MD Quentin KUMAR syphilis 01719Dppfgerq b y: infection is ELZAGABY RENTERIA MD - suspected, 23845Rnrrppsq please perform a Date/Time: Treponemal 09.23.2021 7:13 AM specific CDT Transcribed screening assay. Date/Time: 09.23.2021 7:13 AM CDTElectronical ly Signed By: MD Quentin CARO [id number] on 09.23.2021 7:13 AM C [facility] RPR Path Interpretation 2021-09-23 12:13:35 Test Item Value Reference Interpretation Comments Range TMP RPR Path The Rapid Plasma Interpretation (test Reagin (RPR) code = 640028) assay is F LEUR negative. If a MD Quentin KUMAR syphilis 27757Bdhjcnhp b y: infection is MD Quentin VALLE suspected, 56368Xzrcgcsc please perform a Date/Time: Treponemal 09.23.2021 7:13 AM specific CDT Transcribed screening assay. Date/Time: 09.23.2021 7:13 AM CDTElectronical ly Signed By: MD Quentin CARO [id number] on 09.23.2021 7:13 AM C [facility] RPR Path Interpretation 2021-09-23 12:13:35 Test Item Value Reference Interpretation Comments Range TMP RPR Path The Rapid Plasma Interpretation (test Reagin (RPR) code = 964027) assay is F LEUR negative. If a THIERNO RENTERIA MD - syphilis 67392Ktsvxlmh b y: infection is ELZA THIERNO RENTERIA MD - suspected, 64431Cfaamdwt please perform a Date/Time: Treponemal 09.23.2021 7:13 AM specific CDT Transcribed screening assay. Date/Time: 09.23.2021 7:13 AM CDTElectronical ly Signed By: MD Quentin CARO [id number] on 09.23.2021 7:13 AM C [facility] R[facility] Interpretation 2021-09-23 12:13:35 Test Item Value Reference Interpretation Comments Range TMP RPR Path The Rapid Plasma Interpretation (test Reagin (RPR) code = 797611) assay is F LEUR negative. If a THIERNO RENTERIA MD - syphilis 29765Dqepfega b y: infection is ELZA RENTERIA MD - suspected, 672[address]Mzedgmbz please perform a Date/Time: Treponemal 09.23.2021 7:13 AM specific CDT Transcribed screening assay. Date/Time: 09.23.2021 7:13 AM CDTElectronical ly Signed By: MD Quentin CARO [id number] on 09.23.2021 7:13 AM C [facility] RPR Path Interpretation 2021-09-23 12:13:35 Test Item Value Reference Interpretation Comments Range TMP RPR Path The Rapid Plasma Interpretation (test Reagin (RPR) code = 570080) assay is F LEUR negative. If a THIERNO RENTERIA MD - syphilis 27841Hcmigebf b y: infection is ELZA THIERNO RENTERIA MD - suspected, 43687Gvkbaote please perform a Date/Time: Treponemal 09.23.2021 7:13 AM specific CDT Transcribed screening assay. Date/Time: 09.23.2021 7:13 AM CDTElectronical ly Signed By: YASSINE Perkins THIERNO RENTERIAMD Saavedra [id number] on 09.23.2021 7:13 AM C [facility] RPR Path Interpretation 2021-09-23 12:13:35 Test Item Value Reference Interpretation Comments Range TMP RPR Path The Rapid Plasma Interpretation (test Reagin (RPR) code = 256330) assay is F LEUR negative. If a THIERNO RENTERIA MD - syphilis 43821Zywrihlb b y: infection is ELZAGABY RENTERIA MD - suspected, 05825Fnyisofa please perform a Date/Time: Treponemal 09.23.2021 7:13 AM specific CDT Transcribed screening assay. Date/Time: 09.23.2021 7:13 AM CDTElectronical ly Signed By: YASSINE Perkins THIERNO RENTERIAMD Saavedra [id number] on 09.23.2021 7:13 AM C [facility] RPR Path Interpretation 2021-09-23 12:13:35 Test Item Value Reference Interpretation Comments Range TMP RPR Path The Rapid Plasma Interpretation (test Reagin (RPR) code = 760839) assay is F LEUR negative. If a THIERNO RENTERIA MD - syphilis 29893Ykkrcwls b y: infection is ELZA THIERNO RENTERIA MD - suspected, 92755Yzrfivql please perform a Date/Time: Treponemal 09.23.2021 7:13 AM specific CDT Transcribed screening assay. Date/Time: 09.23.2021 7:13 AM CDTElectronical ly Signed By: YASSINE RENTERIA MD - [id number] on 09.23.2021 7:[address] [facility] CenterRapid Plasma Reagin (RPR) [Syphilis SCREENING]2021-09-23 04:31:30 Test Item Value Reference Range Interpretation Comments RPR Screening (test code = Non Reactive Non Reactive 009044) [facility] CenterR[facility] Reagin (RPR) [Syphilis SCREENING]2021-09-23 04:31:30 Test Item Value Reference Range Interpretation Comments RPR Screening (test code = Non Reactive Non Reactive 654733) [facility] CenterR[facility] Reagin (RPR) [Syphilis SCREENING]2021-09-23 04:31:30 Test Item Value Reference Range Interpretation Comments RPR Screening (test code = Non Reactive Non Reactive 079212) [facility] CenterR[facility] Plasma Reagin (RPR) [Syphilis SCREENING]2021-09-23 04:31:30 Test Item Value Reference Range Interpretation Comments RPR Screening (test code = Non Reactive Non Reactive 262400) [facility] CenterR[facility] Reagin (RPR) [Syphilis SCREENING]2021-09-23 04:31:30 Test Item Value Reference Range Interpretation Comments RPR Screening (test code = Non Reactive Non Reactive 110698) [facility] CenterR[facility] Reagin (RPR) [Syphilis SCREENING]2021-09-23 04:31:30 Test Item Value Reference Range Interpretation Comments RPR Screening (test code = Non Reactive Non Reactive 361632) [facility] CenterR[facility] Reagin (RPR) [Syphilis SCREENING]2021-09-23 04:31:30 Test Item Value Reference Range Interpretation Comments RPR Screening (test code = Non Reactive Non Reactive 980298) [facility] CenterR[facility] Reagin (RPR) [Syphilis SCREENING]2021-09-23 04:31:30 Test Item Value Reference Range Interpretation Comments RPR Screening (test code = Non Reactive Non Reactive 237735) [facility] CenterHepatitis C Virus RNA Detect/Quant 2021-09-23 00:05:34 Test Item Value Reference Range Interpretation Comments HepC RNA PCR Undetected Undetected IU/mL Result in l og IU/mL is Qnt-Sanchez (test Undetected. code = 16838-1) -------ADDITIO NAL INFORMATION---- ----The quantif ication range of this a ssay is 15 to 100,000,000I U/mL (1.18 log to 8.00 log IU/mL). Testing was per formedusing the lucas HCV t est ([employer]with the c ziyad 6800 System. Test Pe rformed by:[place] [address]Lab Director: Jose L Nieto M.D. Ph. D.; CLIA# [id number] [facility] CenterHepatitis C Virus RNA Detect/Quant 2021-09-23 00:05:34 Test Item Value Reference Range Interpretation Comments HepC RNA PCR Undetected Undetected IU/mL Result in l og IU/mL is Qnt-Sanchez (test Undetected. code = 15325-5) -------ADDITIO NAL INFORMATION---- ----The quantif ication range of this a ssay is 15 to 100,000,000I U/mL (1.18 log to 8.00 log IU/mL). Testing was per formedusing the lucas HCV t est ([employer]with the c ziyad 6800 System. Test Pe rformed by:[place] [address]Lab Director: Jose L Nieto M.D. Ph. D.; CLIA# [id number] [facility] CenterHepatitis C Virus RNA Detect/Quant 2021-09-23 00:05:34 Test Item Value Reference Range Interpretation Comments HepC RNA PCR Undetected Undetected IU/mL Result in l og IU/mL is Qnt-Sanchez (test Undetected. code = 60531-2) -------ADDITIO NAL INFORMATION---- ----The quantif ication range of this a ssay is 15 to 100,000,000I U/mL (1.18 log to 8.00 log IU/mL). Testing was per formedusing the lucas HCV t est ([employer]with the c ziyad 6800 System. Test Pe rformed by:[place] [address] [place], [place] [address]Lab Director: Jose L Nieto M.D. Ph. D.; CLIA# [id number] [facility] CenterHepatitis C Virus RNA Detect/Quant 2021-09-23 00:05:34 Test Item Value Reference Range Interpretation Comments HepC RNA PCR Undetected Undetected IU/mL Result in l og IU/mL is [facility] (test Undetected. code = 66270-7) -------ADDITIO NAL INFORMATION---- ----The quantif ication range of this a ssay is 15 to 100,000,000I U/mL (1.18 log to 8.00 log IU/mL). Testing was per formedusing the lucas HCV t est ([employer]with the c ziyad 6800 System. Test Pe rformed by:[address] [address]Lab Director: Jose L Nieto M.D. Ph. D.; CLIA# [id number] [facility]Path[facility] Biopsy Interpretation 2021-09-22 21:43:34 Test Item Value Reference Range Interpretation Comments Addendum 1 (test code = [id number] 37) fNJHob3zix4NkyZLdpU VePLtdtLHajcBuqd50t OI3dN12WI7oTFReQmH0 MDJgnyD9Nzu1PPMgOJH nnSBcI519e7oof4wipa MjdQJ8jYuiMDQooybcP rO1BGetZLRxuqsvAFd2 CCteSWYseHN4JIEbiWG nG5EhIXEgXB8hcol5DD Y3FJdvYHFyPwH8ANHpi ZUgJZQnpIwwNBjpb089 ZYY1ArKnKYPpolAqeIo uzV7cJeEzSTPFNTDcYX dqfUVcn8rrt9FmY3wsi QrehMQ2XzYTgSVzXCIn UX98ORIuSU1wPFq1dDX bh76kVZNieXtlNOFkSM Mse3MgmWj8KQAzAdBlr hYagH2hsU2zQYKrbNCx mE00BT5axMS5NAxtDZD ccGFyIFRoaXMgZmluZG zbUnQnw31vbIMoyoS2w GUgcmVuZGVyZWQgZGlh S56id9deRtWZPXSnfWX nAG6tXVGzUJOmdJDjib peYXHDOKHeMWPyrNx4o TN8PML0GNIufpMxunJg dWVzdGluZyBGSVNIICB kd2YzBLjuPXPFWMEmgI BdfOBhrzCil1XioTejd jmqlC0dWgBzsgRgq9E2 KQSnxS6pNXYxFFjwPbF zIP99GXUkduCfBkmgKH JccGFyIERyLiBTaGlta E0pVDGyCSteqkJfAZTg CElqSCB4xFmnWRSpw2T kRV4pJSCraqO3wxYbl7 b9pZN8jQZxTXbxT66yp 3hpTbfhKOO2 Submitted Clinical History f9jddNUyOUGst4sjVQE (test code = 16808) mbGFuZzEwMzNcZnRuYm pcdWMxIHtccnRmMVxzc 4IfX5JnLbOiVJdotqJo XGRlZmxhbmcxMDMzXGZ 0bmJqXHVjMVxkZWZmMH obGh5rpBJdhIlpRzMaJ ZEtc3dnlbFSizvhoZc4 t0blKLZfKdC5lKUfGCx oZ0jyxbSxkOKyCIGwMP q1zR58UVStlQ3jkJRoM UjxraEaCxO0NOljSCJh XpC0VTSfsTNsFKBiV5b yZWQwXGdyZWVuMFxibH NlXAT0zEpfp0A3iWHyv GVldHtcZjBcZnMyMiBO f9KfVEz8aQinZ3XbGPU jGqD1kDFiNYAgQBfxCP VyUXPnrcE8lK41SNurw yZ4kPEls4Vjx90ai187 cR6voCSrFUD0VGKkNAP qlQOwSMRkKCM9VNGmsR JwB2ceERKnJF1afjllE LcbFRiqIKBoyCZ4PDSz rDHrO8NyNLVtGIvfNHV lxsf2TvKgGo3kdNYchC rzQRbyj4dtl2plbNYzO wu1PIQrBtOkGooxZLgj n6Vmk2cuWRHywe4tHPS 8uDKgdAbhn3X5dCVxJP IujVZuqbTrXXYzRnW4L SctVA7rza13PYEuXKC8 hs9pwXHiiDguptSddQU gXUlmH4TmGRHxq739NR EfS4PkAMUko8E3zbPxZ nVpYTHomPK9kmE8XDHx LSg8ySBsplQ9sdUxwSU aU8uhhB9jIUJxPO3upg sji4xuRTivWNnnOYVfi IA6qbE1TGTbkMZmW0Vj cY1yKWOmSSrkNAEwvrj 4ViCgNo5qjOAnoZduSC xzYmtwYWdlXHBnbmNvb nRccGduZGVjXHBsYWlu XHBsYWluXGYwXGZzMjR lmXmeoAeycM1nNwEbYs PtZPmiMI5sUHHfZ8eyw FVyPEOkEVDdU9krWbOu eW5ghFkqCEnhekFdOCA hbmNlciBvZiBpbnRyYS 1cSaWnqQhgBKnjw8BzC D7mAAaAQtFmJV7maQPv IERpdmVydGljdWxpdGl zIFtLNTcuOTJdXHBhci BGZXZlciBbUjUwLjldX VXmedYKBJC8SEgwm9Eo GXM0QGEbLY57EXCbIP2 reM6vaELzEJJmWZuSGG kuMDRdXHBsYWluXGYxX GZzMjJcbGFuZzEwMzNc aGljaFxmMVxkYmNoXGY zNWqgZ4bcTeBvGqLsSs wsUZI6sB== Diagnosis (test code = 34) n3qfoSBaEIImuML5BPW lMHGur2fmc2KylTBgvS LbBChtsDWpnrUnog81d WI1mD90SW7sNCMgUkL7 OPJigkE0Idl6LVWxGTN qzPDcY054i0frn7nhms SafYY2pJvhUEHnybwmN lM5DLpvGUBanhurUSy7 VUtbLMEjeIJ7RXVioPI yS8BrMAZqWJ7karo9AN A8PYcnLNTqIhU4HDOma VMcTRWgbLvdENeyh711 PKN3KaHpBPZvajZlkEu duR2gKtPgDHXMhK4otP Jzz7PyZCFhPYQ8JCTar WSdyMLceWZvlgM8lOhy yK4pN9UuM5MyCGHmNDC vcmUgbmVlZGxlIGJpb3 BzeTpccGFyXHBhclxsa WyoNXwifO24MpWcOTnI RlVTRSBMQVJHRSBCLUN FTEwgTFlNUEhPTUEsIE 9XHQEIKObMKwiCR4CjO 6XEE1iCKNJZOKHZPMML MP8PZAVKBO4JQHEiHb5 AVYnDBLtGW8LlCVvELo 4KCKHSCFaCLVFyY08fu WVudClccGFyXHBhcmRc cGFyfQ== Comment (test code = 9835) h6qtgSDwSRJpiOL2KBN nBZGth0rnb7ZtzOPakA AxZQhxpNFfowBaaj65d QF2bS55GB8nQNDkUeP9 RCEljpH3Sdm5HKQdLJG jgBJlT583b7sgw5hrdv WedAP8CTIsRLW0NGxsM ZCjLZAwMrq6QBR6I6xf ZWQwXGdyZWVuMFxibHV lMDtccmVkMFxncmVlbj NaCgi8TRJ6PGm1CEKco GVydzEyMjQwXHBhcGVy sRE6QBAuTN7atumlNHk mTJwoCLJinsP0UDHssM SyH6PaFVIwGN0enmqzY TM8LMyoLRWpZJG5ThBk SEJzc1Qqxhy6BuIfkBP yZFxwbGFpblxmczIwIF BlciBjbGluaWNhbCBub 3RlcywgdGhlIHBhdGll sfHfpQWdJJO3Uk00SRU kOC7mTYLwWI0jm3r7fV 20hLpjLpFgoYOry9Nqk NwpjU2qsBDeJkHbRXhb U38tzzQ9JFO1fP4jkXN fo6WixWVyLSynoPatPF Lia04msnGfLKInVQKhM WRxFESomG4kXZCPAAIl kjRliT4cI6mtWnMmYZ2 utcZ9spX7ZWLnaYCnyR L3aOWaysJidFGpnlJij RWbHJChGJpfiYikjU32 q0c7SR6eigJpg5JzcCi lIHNwbGVlbiBhbmQgYn Vsj2fxyiE5wn9aWRVjl E1lEXUlFPy7rERaHVHm hc7rOBDwhD5rrHInQUC vfufeDhNeMJlovF7pd6 fvOaGxXCJ8uL4lzoPme T05ZS4kWAVuBU3sdYMf WCBoBdJvF58mnaViRF8 bLVj5yIBcFT3jZEUul8 w0kOFpirAhhKOwG7J2e dHfOTPyLcLbWU3zciPc YnkgYSBkaWZmdXNlIG5 hy8JzESY9tPEtuSoomT ytqAIddO6wlSm3qgT5F T2oMAofTTx5hZGbj52d IGNlbGxzIGFyZSBsYXJ kTHM0fOQiMYgtjzCqtP xhciBudWNsZWFyIGNvb fPjbWEdLEY9TNDwQ2Gj PRGyO0rxi43vbLdkGMF 9kDRqOUZfOVO7QD94CS fwlHJby3NkEDP8tHTnf P4iqKvovX0rvKY8oFHj YVZwkjanAFSkhl0cwE9 ttgZqS9RieCLvpFUqpA ZrUX0cqPyty5RoZQRih IXdG4CyO4XifZBbk2sw vuIcwQx8uSIiOBLorWG koDFfjBKiPV1pbFqeIJ 7eBZ3sEEDtPXOyAHXfs 7WcqRTwy7PmM3k1z1Zc YXNtLiAgVGhlcmUgYXJ lBN76wHGob4AuDOJbg0 C5g8GaYyZsp9MvGHJdQ K8hASPiDRB1UVUmAILb cOBxkCvzWTWfE3PaLZO sWPTpETSlEObrBD3nAJ NvbmZsdWVudCBuZWNyb 3Izts8cWQRpjofzMOYf ET2ddV7seXiykC9qfIJ taWNhbCBzdGFpbnMgb2 1mUgwsM8evVSCmm2fzp hC5eGB7QAIeZXCkZQ6x bGFzdGljIGNlbGxzIGF jPTLjt9DfjRh6AJNij7 HnV2GmLBjrDiCEKPEhL XIXMA54BBLULX9zW7iS RjQsIEFORCBNWUMgKH4 5PENgLrSpV6YvlOQfgn PrRVCuKMssJFSpT8Dqe BExGFHsYPQga6u3fMJj IGZvciBDRDMuICBDRDI rLHdpsRVhx4M8XMmdYX thT5rgyEvhjENldZQsk Isea6JjqMGhqODlcXAu EIEmLIFeyBNfWB7ujwn 5wJVbL9EtzADhCWNrn0 1lv1FnXDGSePOoG3moJ jcgcHJvbGlmZXJhdGlv biBpbmRleCBpcyBhcHB lu9jpqKR5QXr6PCnvRK UbNcBxED3evDBpzJmoI GNlbGxzLiBDRDEwIGJ5 NRbneFBvd6kdw3BlW8x ykJkmnNG1LVsrUYYdxr RpbmcuXHBhclxwYXIgR meojxEmoOYecXM4tkhn FI6ciLvxpXKtvIVoYt1 bhNFuGW5qBQGhmhC8qz YgleZsh8WlW4cqBN4nf 3rlu2CuXE1yHMSnecCt pxRgRf5qUBsvTISenZE jMGXor67yLUIvd4n3oC ZlIGZvciBDRDEwIGFuZ CEep87wkWgzhOVaa9Tb yQNshXcfpJIbD3ynqE6 qFMNApDNtf6Mth2BmFE Gxv9KjVJOlnZDzvkSok 8M5BANxeeKtWGVkzKvr cmFpBVKaVL6szYjwfVB gLMV5TAmeqv1ziRMyJF HemtldGgDvBHxbYV14H KQxaYaqTuwhAXlmQ8Ii FMRqUOCwLQkwg0O3gCD yXx2sWOIfL8ZmoHEvcX 8ubQ8bDSJne96as1YtA CBvZiBsYXJnZSBjZWxs pzxxA58gp8xrrIGyfTN 1wCDuZMWpVwL3p2EbbX SjY5ZxUf2iIJowODr2y DVuf33dSjTBfKUjgO7f eK0qrQssup83xAQyZsI uhB8oyQ3ozzVaqXQhi6 N5DRCfK8OhqJqbWYltM 2HdvLHpVFNcJ3QkfB9g bRspAEuocNZkw0MaZJ9 ttFfmUNzyJXPbr1HjfM 6cPABuAZYiUXULEU9lN SGsU37tuVEqqJGzx2of aWVsZHtcKlxmbGRpbnN 0IEhZUEVSTElOSyBodH XumjpaL3H7Pp1dIA1eD 7PrIr6wuG3fjIpwQ234 UvO9AJS3RYj1H516QEB rQKFzzGKwqVd8mJnjGz PcWccsp9CfpENrWbIjG TU8BnNeGehyZHpdAkYa RXU9dDptZOhyKIDqlRC jVRIRU9guy4V2DVkvqe Eaq3ZyWElgKAcUBXzcX ZKxiXJsbrK6jF3fvnGl EGSgKXVgQF5gdtDypYL rsVSdELI6rNZqFLMoYb mqzKF3SRB0nJ3jPUFwa dEvzNAPP8nlIPzgLHOh bmQgXGkgQkNMNlxpMCA gcmVhcnJhbmdlbWVudH NeNZKtGQMiHAFjgN4wq GVkIHVuZGVyIGRpZmZl bwOrrEYex4HymdjyVH0 tOJIbTF7exU8wtrIjb5 K9BB8olDArm3tiv7cfM WFvl6TznT1lKZOyOETb b3LfgPTkRZOkxskuJgV ccGFyfQ== Gross Description (test h5yqnNEyDYXisHOIKHk code = [id number]) wMVxhbnNpXHNwbHRwZ3 OihiehLOndVV4jIU5vc KvwkFUkuNXnBA0JTAUz ZmYxXHBhcGVydzEyMjQ xSRMnuTRadUG8GSCpOY 1hcmdsMTgwMFxtYXJnc qX2EXQrxHYwD4XuPPCt XP2dodesYDK1CHuqkF7 mhvDHNwhjNk8wiXLahU tcZjFcZmNoYXJzZXQwX ZUhmXomVXMcTXm3nL8O WpotF56eh0T1Iwa2YOC uYWZfG1UwNJ0gIGEgrZ YfI36JZzodECH7QJTLJ huzFWHjSW7Ao4wjVAZb qXIhVUN3YBgpmNEgCMX vGQCwYTd5DEZaCPslxB HpJZ5eqVgnNbefcVwss 2VjdCBcXGlkIDUxMDAy SEadEPXmDX9NWpSeGPB cAPH6MUByJSq5ACd9ZC 5ENcLqEMMdUQT7OlK1B LUvSCk7FOxjXM5EBWXg GHolHTf4CLChEQWaPii mKRy7OOWmLYoeUHIdjN FsIFxcZnMgMTAgXFxmY hJmQTWyHKwgfqU5PBCd YWluXGJcZnMyMCBBOlx pCTGyUUffvWxhhU3hJX IyA92aq7YSj9ZcFQ4TU Mx0hxMylfdopL4eMVLe dwLrRJeymIRuI5pqYnq jZjFcZnMyMCBSZXRyb3 Smvwh6y36teY4lPFawM fEhFKywVaNrW7UgXYAL tFs4hCJxARUfz5J8AAT 0tMx6SJ01BK4eeD7xdR FqPEFsg6wzRSAle2I7U VIzv0OuleTgFU5kjD2b CYYmn71fQN7hPEGmZTJ vIDEuNyBjbSBpbiBsZW 3pzQcoVH6fDHDhSTUfk SBpbiBkaWFtZXRlciwg ZE66oZLtjLsyk6FyoNd 0dGVkIGluIEExLiAgXH Cqk8UaC3J8RUHvSPoan 3kaTCFcBPnnl4LaNTvU HGKVFP0LJR2fmME4BYr LR3QPH4nSyCIuXQS4lM U0GKUVKnpqlFD3lWH7l D94XEXiPHPvjOUcYHaj Y261HXM3ITWdGNjpy1g yXKGfJAkiv4OqRIaONC JYTR9KCM8eaDX9BEgWR 0VORHwyMTAxNnwxfFVT SIB9YEjabSxadZz2r7t slXPmn2p3SMtdBTZ9oM xwbGFpblxsdHJjaFxmc dQbGO3IRZVigFZCYGO5 ID9oDQm5NWjcGCRuM0E hB8OnulOhaEStLNMrup Ifw0wbWPT4HVWiiAQcx JUrRrMoHbfuGYG5LRCb NXypRY1CPQPhLGN5APa ctG37zUJsYI7GLTFjDV wxFVVkSDBbgqT4SMMwh TYtTLN6NM4koIzrjBVh groihfU3BS5HnN== Disclaimer (test code = [id number] 9163) kLXUbm4kem6YxsIJgxM BpOZvpyYRisoRtni45u PP9hM28DT4vUVYdTdO8 PYWmjkH3Wqg4XZDyHGS vcDDlW325x8eyt1clvj QlnJJ5UGSaSIIyY2OyJ G4lRLQivNJyK54ljUZh EFI3CGQyDYCwnUWfIHC vCKT0ANDhvTHhP5zoPV PbKQ3apkugIJljSWfmR ESwdMA8KVVihJMeF6Ef EZTaYNdkEUCfrnp0KvC cTt0gnUEpoMqyTJnxN3 effH1kWiI4ZErvY7dvo Q7kNMj5IDkpVQZdwEU6 fhH9FVGonOBfY8RmwH7 lITZkNR0udtz9j6oaNX Q6NOhmEVGxDtC7gmQ3M DBccGFyZFxwbGFpblxm ifN0OZGqXZXmK46rYIL 9CAE7tiOhVLFnjeJuQD WeIRLkXW8xjHKvPRAuG LOjBO0aERV4ZVjpwYNx HXRhZCYeDODkr2HzLV8 gJTKijUHbARQ1FGQmd5 XdG9YoAGE3APFnnM4uW CBieSBVVCBNRCBBbmRl pkVlqcZIULSfw4gjH4w xMF9lDDajPw6lSSSphs kgTWVkaWNpbmUuIFRoZ UGaLZWtx6RmGDbmomZr gr46PESkLX9vz1DlY3x uiRWnaQn8XRVeUTRmMW Ght1DcDYCxzh58AARdC lsudBdbIWLtSa3lJq1p CSVmxmSqRWJ8FxZIPA8 snyjjcNBqpAohdl6bGG YgYXBwbGljYWJsZSwgY 31zaPVakBWnz3XbRVGj TKFuXPopMLPiqfUmy9f hc1BePBNpoHPpwKQmHY FlDYPsHOM2nCMrwNcnM lxwYXIgTWVkaWNhbCBu TFUlg6MapRdfwqPoySl gkVLojVzmjlNxz4IhvP faTWouoTKak4hqx8NqA 5rvmXuzRPoxi0QjxJ8j LOSsAOVja1WuHJQeAFC pNOFviT6vSLQmpMUoz1 5rmE7bkJyaDFHxd7ugW 1t2z72peTKqQwGfqO25 yo8xxVShy2M8zFaiRHY 0tDHkJVFyXm9zSNCzHO YpUDW0OYIlDNzdo9Jcx oXkb1BixAJmOJDfrnXp woWiz1xje4qcDeu+IFR qCJVklD36OVY1qJ2xPM TqrIAge0Y2FJrnhdRot rLpiv75GUMaRGGmdFiv gqUsicYrNM36DXIwgpK oz4CmONybUOLhGTGmQI R7vEUpsuNlJBS9xOZds mcgZXZhbHVhdGlvbiBp zyP9zJorNQLkVVDgbRJ uLlxwYXJ9 [facility] Interpretation 2021-09-22 21:43:34 Test Item Value Reference Range Interpretation Comments Addendum 1 (test code = c4iuwTJlSDPqiTQ1NOE 37) xBXAol4ufe7OznKQkcB VaODuwmOLhawLcgc02g CJ3nA25TE9bUBCmEaM0 KWYjpxW9Upg7NUSuRZM oqGRnG921g3gzj1yqoi SkvCB2tIaaUDJfxoxlR nQ1VPozPGDmeralPBn2 QJjoOTZfsOG7SYFieSE pV0EzMWVgPW9idnc7JY O8LWvxLJAuQkO5MNWww LEnKYOktIbaRNrem739 KEB5UgDjSXSuphHupMk qjY1mTyXfZWTFPDXeTJ gjjYQoo1rnw7FwJ4oev EsikIB2LwHDpEJoZRFn JV36HATkHG0dKOh8tWA gh87fWUIzkJoqFFOpCW Npz4HzjNc6QQBrHmRce gQlhW8daQ2qPZCjhASr gR00XQ6jwFF8UPkzGGQ ccGFyIFRoaXMgZmluZG agSsTcm72ioLCxdcX1r GUgcmVuZGVyZWQgZGlh P15cw1ilSlIZXKJihLU cSK6jLLDcHKVesMRvyu zmPVGHFSVxDKGvcYm0c QO2MFC0CJGuhrHfkrWg dWVzdGluZyBGSVNIICB hx3EeFQudTSYAGJBvaC AvfRElcySzx3PzaZzql xojrK8nVaXnqaCvn8Y8 BIZygH0qAQUpJCoqTyU wZS40TJEajtFsQikfWI JccGFyIERyLiBTaGlta G3bIUCfJMjxkzJdWOEh ICwcJKR2tCdeQTAyk6Q bUX9lFPWjgkE3fzSmy4 j3eEP9vXHrKKujH11sh 0wuToccMEX4 Submitted Clinical History m3dsiRSmXMFbi7yfRQN (test code = 47891) mbGFuZzEwMzNcZnRuYm pcdWMxIHtccnRmMVxzc 6RtL5HfExHyCIuvayJe XGRlZmxhbmcxMDMzXGZ 0bmJqXHVjMVxkZWZmMH exNl3qqMQhnMgvUtNjG MSxg4mbypSWrtjbzUx2 p5wxRQYsHiZ7lICjSSq qV0eliyDakUIeQOWfWB b7lD40RVEttB6rpHDbZ GfictIpRgV8MQfsIGRd BfU1WDUraTGcGCBrO1l yZWQwXGdyZWVuMFxibH TvURN9qEnoc4K1jPGrf GVldHtcZjBcZnMyMiBO x8OdSEi4sYrsC8LlXZO nMbP2tKNhVDDgEXvtFN XrAJEsnfM2xP20OTbol eY9pBGrn0Coh08ls801 lP3lpXSuAUK9LCNxXPS gxZEaEEIdWFK8BVUkwE XrI2faGZTjLQ0xdhvcP HuwATyyBFZodLT4VTFr aGWvT0CwYEYaVYbdWQT ieye6KqZiYr3elIHyfP xgMXdod1ffl0fxrBOaB zh4YVSvOwRkQbioQTxb g9Daa0vsSTAovt7hZLY 5cNHnqYcqc3J3zMQdBF DvvYDuctGxXYGyArA2F IcaLN2lzj68VUSjBMD9 ja4jgQVszWoirdSytYY yFVvuD0FpZKWlm929TM SkD9KcDYOfn6S9jiRlE vQmDSBneUA4paE8XVWz DJv4rBZimkL0bwJdfRA qE7mhqB7hEXLwNB3yah ckj3fdKButGGdhFFRuv PP7fkM0UFQtzPOnB0Uy zR5sCQOlZUjwUBAnqyl 1WkEmIv7bxJHzzVhmRM xzYmtwYWdlXHBnbmNvb nRccGduZGVjXHBsYWlu XHBsYWluXGYwXGZzMjR tmNeliQbvrJ5lIoVfNt SjKWcwQH3yHFGwY5udf ENlHQSwYCUjW5ccZlFi jN4mgPsqVTtrpwPsQYD hbmNlciBvZiBpbnRyYS 2hLjNqgPneIKgln6ZqL P0pUJfAKuEkYU1ocTVm IERpdmVydGljdWxpdGl zIFtLNTcuOTJdXHBhci BGZXZlciBbUjUwLjldX IZmwvHSUSL5DEwig1Bb GRB8KVJmGR85MIQvQC5 ivC0yyPMuAMQiYUwRMP kuMDRdXHBsYWluXGYxX GZzMjJcbGFuZzEwMzNc aGljaFxmMVxkYmNoXGY jPTlmV2kyRaKnSqDqDv huRLF7gT== Diagnosis (test code = 34) d6zwtTQcHJEtqLV2TDD hQLMes9pvg5GdrJCzrH BxJXmysNSuioSkvs13j NZ0xT10VO7xSKJjMkR9 QFAynhU9Jvk5TWXfYFV ytKJiF948v8iuv4kogc OkbZC7oJdzJUOnqgliR aF9MJtuBDXdzvsiZEj7 QDqbZAOatGO4BFWmtSP zG4TvBEOeEZ0fhqt3AF T7YPbuUDVaVuM8OIIxn CAwHJWvsEwoBNytn078 KCT9ZfVgPGLqgiCyqSx sfH6zRlXuHFQOyF9ouJ Jpr2XbCWKdEFE2OIVrw AByfQQmwYSxyrX2pMsn rT1zI7TbU5QlKKZkRPT vcmUgbmVlZGxlIGJpb3 BzeTpccGFyXHBhclxsa OpvXDzysL60YkXxSHlX RlVTRSBMQVJHRSBCLUN FTEwgTFlNUEhPTUEsIE 8AITHDCWePQfaWR1FjD 7JKK8yQSHPGZVEJPMXB KI7LNBNXWW5XDECgSl1 QCUvQXPvSF5ZlUKhHEs 7SHFGYPYtTGZBdP18se WVudClccGFyXHBhcmRc cGFyfQ== Comment (test code = 9835) n0xnxJJhBONmcNH1GJM tMJFib9zqy2XkeDMsmI KhNYlgrRRpbcFzly88x HL9zJ12MD2xOKMfGqK5 XIIinbN7Nco9JHWjIMY luFJkA620v1laj8yxyj BwdRS0BSMjSLY0FEyqE XPcNJPoQkl7FCB9Z6ev ZWQwXGdyZWVuMFxibHV lMDtccmVkMFxncmVlbj QaFft5QQQ8CLm2JGGlt GVydzEyMjQwXHBhcGVy zFQ3KSYpOD7ohrpvAWt kUHshMDRobyO9YKGrmM IuI8AtPRMsIO7cyecfO YQ8JByqZWUbZUE7AtDm XAPfw0Jmuur4ZuZeqJG yZFxwbGFpblxmczIwIF BlciBjbGluaWNhbCBub 3RlcywgdGhlIHBhdGll fvMmfHAzQBK0Dp59CQD hIC9oAVYnON4jt7k7iB 28vLqvSsSmzUUgv9Bai JqiuC0klMUhHiKjRSpo X47ivtU5BMJ2gE0soZD qz7ZyvIGkKEmvqWdaDE Wyd58qxhDqRHVuUELgZ FFcFZLejC9rHPGFHQNj feTyfG8lS3pdJuUxPY8 zrmQ4aaI9FUFdbZVblQ V4aGUmzkVwuGKgpwVjp DZyVQKnUGmmpYlaaH07 x3a8GW3vzoCkw1GrjMr lIHNwbGVlbiBhbmQgYn Cbq5hprqF3ye7qWLXia Z6cSGYrNFo4eXQaPEQl hg7zQUEvdF0xpWHeTVV wzknhDzKiSZydjD1lo2 jzPjGfHQI7rO8zzpXze N48BI2tVVXrTQ1lnBRc OYKrPlEsK70urkJgDV6 wAWm4gONuSS8aFGTqc5 k6fAThrsLyuPBhW9H1z nQjSTLhJtJaMX9vpkTb YnkgYSBkaWZmdXNlIG5 qr6AzRSK3xKSvfOuggT epnAAzjO0gjLx8wmJ8X F5vEUohUZy6mTCra74h IGNlbGxzIGFyZSBsYXJ mUOJ7aAWdGUsystArcY xhciBudWNsZWFyIGNvb qVttTMdIQU9CPUvK6Mq XGMeV8xxe56ufFpqDAC 1dRQqUFAtWZE7LK06TS ulzJDil7RlVSP6bBWtv S5xlDppvM4fzMN0iYNg TFKzkjzeCERusr5boK4 lfkWhM6IjaJHvcETdbI CyKV3efJpux0XgVZAkp HUiC0HvU6NngNGhk9nb qbWcbJd3rPJgOOLyvOR auRMruEWoWJ9azUwlXB 2uYN7pASBrLHEfUMOgc 0KogCMrn2MiR3g0e8Ia YXNtLiAgVGhlcmUgYXJ qJO48gNZhu0DeMCOal7 Y1x5CsYoRpv9RnEGLsT O6uHCHtBMQ2OMThDDLj gZZgxPfpWSHzO9TfRDQ eSGXvYHAnAGaqST2rIJ NvbmZsdWVudCBuZWNyb 8Ifmf7xDTGlwsbvKQCm NU8hyT6myJgsdU6zbAS taWNhbCBzdGFpbnMgb2 5iDmilI9pmYMAdv5dmx mL4wIX5FWRxTKSbSD6l bGFzdGljIGNlbGxzIGF oTJJum6VipNm6KQPkf3 SuI5UbCRypRnQZRJKhN EHWFM41CAXLTX9eA5gT RjQsIEFORCBNWUMgKH4 1SLGzDoDkG5YojDKtwd FpBXZbZVcuPALxY3Gee DWsARWeNDRtz8n3lSFp IGZvciBDRDMuICBDRDI zRPjrwYYsv8Z8PJsnQR opO9scmBlvpAWieAIza Bivp5NcjYHmyOOzgHMk XOFrMXUohMAeIB5ybhu 7qFElE0EroVDgEBCsa0 5ba4WlWNKYsYAzV7wzW jcgcHJvbGlmZXJhdGlv biBpbmRleCBpcyBhcHB dd0mxtXH7JZj8YOyrQM RgNaSkAF5nfZQmmRxcL GNlbGxzLiBDRDEwIGJ5 EWtwqXGtj8frz2SyI7t hrScxdTO5XBknPACgyp RpbmcuXHBhclxwYXIgR vdjlkTklYIbcQR3bvdk NH4ktIbolRNcdCAlEs0 wbCMpLY4wMHHhfzL7xw HncgQei4YqC4gsKY7kb 2rmb3WzPY4jXIMmqySx rkHqGf0zBSktJDQyzHM pZGKhw70bLVJzz9c3qP ZlIGZvciBDRDEwIGFuZ SIvf18shDhplYGxk8Xj qWQwkJytgSPhI1ihwE4 oDYXXqJAkm1Ksj0KvYV Qry0MnIWOxxLEfueSgq 0S3XDRyzhIpDWSyaRht clMnWADqOF6kuLydpVW vSOQ6KUkuxn2plWKjVJ AsnjakUiMrIUgdOK84X RAklPfpRhckFXhrS2Jp FNUbKHXeNNylg7F8rHD oJc8nFBCgW9CxuEVyuO 4fjN8fZSZgs85bz2OiA CBvZiBsYXJnZSBjZWxs efajL76pb3mzeCFymNY 7fMEjBAEvAkI0u8QamL VlK5XeZu7oGEtrBRt9o MPxe26cQiJTsWXbwL1l uJ4qnUzwdg83xNLyNxH yaF4hcP2znyBmjBXcx3 H0OXAfB5KajYgpLHdvD 2LhkSGbFRQhJ9YofE7q jYifPPinqLLfz3SiAG5 ztZylIJfaDIQes5BxzQ 1uRAUhWBPiURAFHI6mA MJiS46pkZYjiWDse2re aWVsZHtcKlxmbGRpbnN 0IEhZUEVSTElOSyBodH KxrqgoP8T6Ap1xIO5eD 1PtGs0yiA6xlRrqX331 GpF8FNQ5BWt8K512FJC hYXSagXGyoHn8bBgwZj CqIlnvv7BjwQIeVsLrU EB5PbAzRgxyJFlcSkWh NJA0hNuePPpaJOHqjLQ oBEEXP8bbn9H5POzobj Fyg5WiPBvgHEtDCBypP GSobREjmgY1vH9vdrCp UIFbYKShEN6byuEpwPZ ruFEhAEW1qMVjXVVeSm jmjHH4AKX3pE2uZLCzu nPfgSSYO0clPUmpMCQj bmQgXGkgQkNMNlxpMCA gcmVhcnJhbmdlbWVudH DeOHWfTTAmVLUplL0pc GVkIHVuZGVyIGRpZmZl ssCtlYBmp2ZgeahdVK5 kTSCqAQ6vyL3lmtKwf5 V2GM2hhLRur6glc7ioZ IMnb0YudV2kBTBbPNBt o2ShjARuVXOgqaxkKwX ccGFyfQ== Gross Description (test u8grqBFoQDKahFLITOx code = [id number]) wMVxhbnNpXHNwbHRwZ3 VnemymXMssSO4dXO7uw DtxuXStsVRwRM2EOZEo ZmYxXHBhcGVydzEyMjQ qJNLvdZIghCD4AJDqCC 1hcmdsMTgwMFxtYXJnc zT0XYApmMStC0SxVGJv ZO4qpozmTPQ9FDbupQ6 pqqEQJghoSd6kcVSmnH tcZjFcZmNoYXJzZXQwX LIrnCqhOQWnKVs3hS5M XqxiF28mm0Q9Lsq2HUY dSSDvY5CtUL7uUZOotF EbT96UDrlhTBV3NTSJD smaRGWwVC0Dg8ceDGGt nXQvUTH4CCfjxLZnPGN nQZLxVZs7ZVLiVAavtX AfEX2ovAhwIjpmgBfae 2VjdCBcXGlkIDUxMDAy PYmbUTIbVP9OKcTrPNS bMUS0KBBxSNu8FRu6ZQ 7MHkIyXNKxHPY6SlN2D GEwTNw9WOfmZZ4MPSPg SVlzHLi7HRQbIODjOju sAYi0EDXbDTdnSIZpeH FsIFxcZnMgMTAgXFxmY qJgXOSoGZddwsR2KCRr YWluXGJcZnMyMCBBOlx rQJEwVSgeyGnnbX5wTA VnY35dk0FWy6FjAS6PX My2aaRobryvqK6tTDAu gdWjLSadgFCfA7tnYcs jZjFcZnMyMCBSZXRyb3 Ztixp1n23xwI9dQGjzC hMlCNluIiBpF6LtUZLL fJc8kNScZTQdz0T7RFU 4tCe6PJ65QR7cuH8pfQ CxGQKcn0zjQXGcr6B7P VErn8ApkpQjBV7ojX6g DHTot52iAL8jRPUnCVV vIDEuNyBjbSBpbiBsZW 8oyWqzVJ0oPZDyDUDif SBpbiBkaWFtZXRlciwg UR31cWYzyQiok8LqoNq 0dGVkIGluIEExLiAgXH Ijw8ZgJ1S6OSZkNYppc 2lmLOWwUVnlq4HyWOsC SZWNAL7YRF2elZR0QOp UK0WDQ9qZaFUxGSP1oC E7DQTLUymwmPC2lKR7c M11OHGjACOazLIjNEvp F344SHH0IJEkKJfwb8o rJUPwLMmut1NqZJoLSW LLPM9CSZ5wdXN9FGrIA 0VORHwyMTAxNnwxfFVT LUR2YPurgQvdzJz2m7d vkQEbw6y9HJgyKBC1fT xwbGFpblxsdHJjaFxmc qWsNZ9XNLBofGJLEEE6 YD8sJXk4QZmhQMKjU1K jD8ScvjEbbTKpXRCitt Owc9dcRTS7EGJxcJQzj XMpZdSzEjayLLK7WQGt WXjbND4ZYBHjEIP2LGf hzG37uUEyNV5LQJZjOR cxGIYiHRGejwM2CYDrw FUhVLR8XR5qkJwxtDZp ubtfrzA6TC1SwQ== Disclaimer (test code = [id number] 9889) sKPCtf1kcy3LquGIshB BgRBvfwLIlfoZuyz36f UI9kR88OM7nGPZyYwW8 OHAnpuF6Ceh7SFYjFOW gkFHpW970x0czk8asjo DjsVP6UUXpMMDjP5CxG L2tIFOlyQMnM32ciDHl FSO2YODnIWEenWWeMAC cHNA7GFJsyCKvH7xpZC QiND4rqtnlHImqIYbvI EOiuYY9VSNzeQUgM4Pk TEHgMOexHDZmdpl4YqN tFx3anSDrzRwyZUpsX6 wfrD0kVbB6VDkkM3haz D1iXYy6VTjbHTHjwRL5 ppG6URMjnMKuT6CblN0 lNFUrEO8avls6a4gkYI X6WScxICAxGoZ6mgR4U DBccGFyZFxwbGFpblxm olC0GANlYQMjD93tUTZ 7GMZ1woVeJYMyqoAsLY NaAGYnRR0vsJBnOGBdE YDtKC4tANM4AKaikIZn KDZmQXGbJLLks3HuII4 iNICpzZLnLRR3AFKtt1 GsG9NrMYF2OKQowD1hR CBieSBVVCBNRCBBbmRl ylWzdzWSLFNvo7noJ3k oCY7fENdeKc0mDPGsqw kgTWVkaWNpbmUuIFRoZ RBxHKSdq7WsAFkiwfAj cu29NFWzQG1qr6DeW3i vlCTteCs5BYVnNCNlKI Tcz5ZlEYOkvp44VMSuS xxcnNfwFHUbOa4wQw5t TJFqjyFhXQN9SrCOWW5 bvuhbhVOtqNcbmq2rTI YgYXBwbGljYWJsZSwgY 09umEOomYZui7IlFDQf DDLwXAooDHGfqtXjt4l nr7KeYAWlqJMmzMYeVW BcMEVzFQN4mTNtwCqvX lxwYXIgTWVkaWNhbCBu WDWik3ZwwUrntvLyrMt ujKSeyHvxguJzq3UtxQ stZDuyfKMqy7xgt0AjA 5cpuIaqOOrzk9MjxS0u YFOiQCQgo8KpQXCmVSJ gGZXasP9wOOAsgGQwe8 7eaM0aiUamUIWcb0oiN 7l7p50txIMiBxZclC57 cz7mbHEoe1A3jPbvWSW 7fTKiTHDfYf3xXMHfXG YtHZR1ZEUdPKcfv4Epn gEza8BqsKCnNVVxoiDy opRqo5hou2xmAlp+IFR tDPQhsZ23PEF6xI2jCW FvkCBwp9R3RSvosnPfc tOwzw53ICPnAMRuuRls mzWsmnDrJF63XMPsndJ be4HxHVcbEIUuNOUbIR X5zWJepuOiKQM2rPCmm mcgZXZhbHVhdGlvbiBp rrI5fOmbDRZwNSZawKI uLlxwYXJ9 [facility] 2021-09-22 21:43:34 Test Item Value Reference Range Interpretation Comments Addendum 1 (test code = [id number] 37) oJPPsz3naw6RehTOwrA EiMChvzIAluoZbum04c CF2mX85VW0jOSOnXlF6 ANCsolK5Spz5UMWxTJL xkLHfU520i4wvb2imwl TrwZA5aZgjAGQwvwnoL kS7FRyuZIHkxjqiBDb5 NXzjNPEryAI2NUPgjHR hL3NwUFMyQQ8ghlp1FX D9IKdhRRIjGuZ6HIFnt KRvBQOfcCeyJCklb354 OEZ1QyOmZXRgpaKyzDp miH7nUwXzNEACPYXiGX lsnUPco0cim4PwF8oti HoqvSU9HhYGxUWzIBLj AZ47AVFcYB9mQCm8eEC xk73dGTDnqHseWXFcGD Wxp5QolSy2AAVmEdQjd mRvrT1nwE4eVEJjtWUi sP29DC9lzZQ4LWjpHHV ccGFyIFRoaXMgZmluZG ggYpXwz95grHIcscC4e GUgcmVuZGVyZWQgZGlh N23oo3phOmZBYWAasSQ mNO7wIJUkZFSymXStyy yrNFGUSWHkXJUdbUx3g QV8IDH5ASAcckRoevMf dWVzdGluZyBGSVNIICB oj9UrMOyzRWBZVYJsdP SlpLQwnyDml8FyoQuiz nzgmR2xEqUvwmIdu6R4 LITpsV2jVHGeGOtwFwJ xFR00WACtuiWvKpdtKD JccGFyIERyLiBTaGlta Z7fVUPvVJkfrzWiONPp AZvqAOC2xMomXZUpr5R bIZ7hBXPxolR2qbQty4 f8dUZ7eBGhFBfuK74rn 4dlSpceMKB1 Submitted Clinical History o9jtkKLmPLNet9faOWU (test code = 12862) mbGFuZzEwMzNcZnRuYm pcdWMxIHtccnRmMVxzc 0YdZ9ZfKtEzAJcrvwBw XGRlZmxhbmcxMDMzXGZ 0bmJqXHVjMVxkZWZmMH aoHd0qtVDrcEstMkWkE NPfl0bfheOTktivgKw5 v4xcLABoMmS7iESnAAl vM9mcpjTglQTkPRWcWN h8xF39GERnlZ6faXStN NthpaDdLbK5YHwnVLTk XaP1MLRqwHVvQSGfM2t yZWQwXGdyZWVuMFxibH VvVSE1pXefz5E3gQTun GVldHtcZjBcZnMyMiBO n0OaWHt2iRedG4XpXWR yNkK5kTQaGDYwITkqIP PjNTLhjvD3jT62RGlwy rR2bXYiz2Fun29fg914 xH2lqYSrLSK4BFAoYPG myWViSNCgHAK5EXMyyV XfD4pcZICnTR7bnlriT GdfZEziDIYlcKB3RWCk rGGpZ8OmVLAxPTgvDDR mkrx6SrEhRj0seTNctA snQXqrr5wur5mmzPHtT sl5HVWhYdPlGpniFJsf v6Gyt5axHKYhxe8zWWX 5mKPcgBplh2J8vDJePG XzcWSebzJaZHYnRxP4Q ZqdXY9ego49GSJkOHP2 vi5ypYUypTnfagCykCX nFKeoZ1FwIHDnv654UD EzQ3NbPWReo3P9rdDpJ uHiMXZxoYW9ycV8MQCz VYg4sGJkhvZ3ymJjxAB mJ0mfuQ3pAMLdUH7cfq lcw5qzLAwdSBpqHZXrt KR8ybC6GTGduHWiC8Qd mP4nMEFsXJlyOUWaefo 2MpNdFp6qjOAkyOtkCG xzYmtwYWdlXHBnbmNvb nRccGduZGVjXHBsYWlu XHBsYWluXGYwXGZzMjR klHmacTburK4yMqZpEm KsQLgtAD7hTEBpA1sjk LHfYGBoYKPsU9emXkLc sI6jiTqaPXwnijKcKCE hbmNlciBvZiBpbnRyYS 3uQdCicBjiJVfqh7NdF C5zIBeIAvEcFQ6eiNOm IERpdmVydGljdWxpdGl zIFtLNTcuOTJdXHBhci BGZXZlciBbUjUwLjldX BGgwkGVFMO0KLlvd6Cr QCE7EAShAE99EDOnKW5 rpF1ysZZlZRDyCQkVQB kuMDRdXHBsYWluXGYxX GZzMjJcbGFuZzEwMzNc aGljaFxmMVxkYmNoXGY tMLalX5vpWrSdCfKqCh pyCVA1rL== Diagnosis (test code = 34) k5vjrLAlSNUwqCN9AJB fXJKys0fht6GloTHyuJ LuULuyuPSxhzZxit77m KV6nB86AR8pFPJjMiJ6 MVWuxjZ1Wjy9WFAcMWP blODeS922l2snp9wyeu FfjXS1kZoeXVGtjtbuP oI6OHgvUFMubvayPUl3 JQdnPFJphLA9VKTlhOI eC2PfZJCqIS9khdx8UR M7SEfnEYHxSpA3IGZzm EGtOYNzkLbbZOwmu678 CSD8OdXmFSJnvoOlpNe onY5qNpYuPBINvX9fnE Jae1ReRPBvNPX7LFYsz ASqdDIatIKdbpU8tWlr gA3yX3JzA6WtALWcZBI vcmUgbmVlZGxlIGJpb3 BzeTpccGFyXHBhclxsa OdxKJgtaX22CjDeFKmK RlVTRSBMQVJHRSBCLUN FTEwgTFlNUEhPTUEsIE 5HKYRFWKyYUdgPD2ToB 5LBT6gDJVKYMAXNCXDY NQ6PJXTNKI2EBNUgQp1 UOTiVQZzHW5ZsKGxTOc 0YVSGPWBtNCBLqH42vc WVudClccGFyXHBhcmRc cGFyfQ== Comment (test code = 9835) u2owdILoSTBesFU9YBX iCGHmv2yuj6MjkYIqeO FyZKsokDYsdtZuhb01j ZB3aE78YP5nVLVtMvU0 WQMgqmK4Ibf5GTCeUTI chZYxU434c3tih7zmmi YomKW9EAFqORU2LNeqB YVfBWUeAga2MCT9F9yr ZWQwXGdyZWVuMFxibHV lMDtccmVkMFxncmVlbj ZdAng7OTD9NAf3YWKjr GVydzEyMjQwXHBhcGVy zCR8XOIlQH2wzwvkQQj fUEqsXUJcuaO2SQLncR SeS8LhDVSiWR7dwldaT VS2CGmgXGLsMRA3ZgAc TVNoq3Unrgl4FrWylOD yZFxwbGFpblxmczIwIF BlciBjbGluaWNhbCBub 3RlcywgdGhlIHBhdGll qoPegANpGCA6Yq33LQU iLD5iESKhCN6kz9m7tI 35jBbuRxKwqNAgd9Aqp TqxcC3vdMAtZfVrTVsd T41fvwG8CNJ0nN4tcVK cm1XlkYNuIIsihXdiEH Jvl20nxgQvQEJjKCJnG QJlFOFgyX8cRAMBOHYq mfJogA0aR7khYqJlHA8 sbpG0fyL7DQVgbESzrA J0wPNljwVtmFZlktCyj WVwDJNvHOtufUwmnC68 q7d9GA4uvrPua1SdrCs lIHNwbGVlbiBhbmQgYn Kve7hshbU5rc4xYZObx O6zDOGdPBi1dYFvDKMg vk1vHIYwlU0iuBDyEFJ scxnqQoEyUUjhjQ6wo4 upCdXcYGM5yG2dhyIvo Y16FU0qTBDaRX1zmQMj WWEsByEkG04tmnLoCT2 uPFy9mBAlEQ6nECQhs2 y6bRIdzbCakTPgT3Y0d aYzECIhAxSeOO7ntuEe YnkgYSBkaWZmdXNlIG5 bu2ViYGR9fMMptRsdjU afoYRdjO9wwHn0lkL3O P8lBSrjQIq0oMVeg30m IGNlbGxzIGFyZSBsYXJ fZPO1uOZrIUlvwmQrnI xhciBudWNsZWFyIGNvb gZwhRJyHRY5TOMpS7Vx GCRdP8yss60nsTvpPQB 6xVJzZUAuRND8PZ45UZ geiCNyv0SuNPQ5jAThl D0ebLyysD8lvLY5wGYh MTOskzvzWSEsko5lcK8 wqaJyA0AkuOAstSNqoD VgOY9vfGqyv4XvTYVqk MCxI4JeE4GmpJCwn8vk uxFobUo6zEGvOWBruCY hbWTkqMLcKV7wbJinVV 4uNW0tKJAvNRDxKOXja 5YxmJZzp2AmP1u3l2Dq YXNtLiAgVGhlcmUgYXJ mPJ63tLBnd2HqQDXwa7 X0d1GoAmOlp3HgRJEdJ M7tIIWtLCE7PLPrLACl ePPtgDktGWEjJ5XzXDB fTFVpWJIpWYxzPY0qPZ NvbmZsdWVudCBuZWNyb 9Apcz2eHVMibrgzLSMv WX4dzT7rrUzilQ8clPX taWNhbCBzdGFpbnMgb2 4pNytuY7tzYUZha9asb nZ2pTU6SEFrSRHhNM5f bGFzdGljIGNlbGxzIGF vEPHom8TdcTp4HAYey1 MxM2PrTQaiMzVJEXDhC QLMGM11HUCULN9hC6wX RjQsIEFORCBNWUMgKH4 8WCNbBqMfR8ThwMTekx ZbCKYnHWfoXQQnE7Ynr XPpTZEzFJUco0n7mBNi IGZvciBDRDMuICBDRDI sWBdytWEjm2U0HPkmHY nzX1ftqUqrwRIkpGVoz Fexx3InzRFslFZlgUFy COOaXFNlpJYbAC2ucso 6sXQjO7YsaGKgVIZqo3 9fr8WhUKGQtAMkH4xqF jcgcHJvbGlmZXJhdGlv biBpbmRleCBpcyBhcHB vv1byaFC9SCf7LYiqXH ZlVqUpAS1scQXerYlsR GNlbGxzLiBDRDEwIGJ5 HCiukETdv7tqu9NnY8d qvYojfED6TVreMVLvys RpbmcuXHBhclxwYXIgR nealmGxvXTbgBK7tdgo MT8hzMbchZYltVStHi9 vcYYbFA9vXCJaarZ3wm XnsrNcr8NbL7xmVO0oa 4whb0DeQV4vELXzyvZn hyBhFw4gQXxnGNYbtKZ bTCMpm72dXPSec7n1cG ZlIGZvciBDRDEwIGFuZ CSfb93odPifrDXgj3Vs eOEdpKhjaKMfY0ycjJ8 cBRFCfIWmq5Mvk2SbYU Wcb4LiMTCjgDFrvcHyr 9O0HCVurfWxHNVcrYzu cxQhTMSiAS7dsDhuoGX mLKF1WYtdxj4tfNBjEK AafjmnAvZkWSuyLI33T RHbnZhzNgccARwbI9Kq VGAeCHFnEFyts9G6uXM nZo3zRVQzL1WduESiqG 2ibP2dDBRxa02qd4JrM CBvZiBsYXJnZSBjZWxs qqojN73zl4calCUjeBY 0yCNyOWOdUrZ7c1EpeA QtY1SwZt7vZThtNBw7l AUls35ePhLWmSXwuB6u xH6vjUtepd62sIQjGvG uiI8uoN4shqImpAHlk2 H1MILxF6AntEexFSfeV 8PjlJEsMICeN5OxnF4e aGfbMFgqlBAwj3DaRB0 miEvsADfzVSDnh2QhsA 9sJYCuUINwXCQJIO7eS LHbH95nqXXqhVQcx0eg aWVsZHtcKlxmbGRpbnN 0IEhZUEVSTElOSyBodH JvrcqtY2O8Aq7fEP0hI 0RnIg2keH8fwPwsH408 NbG5NLM6FKx3R307XIO pHVDbdBHqqGc7zIcgBt KvKycjl6EqwGDkLfYeT DL3HbMwAbzwQYsnSwFo NEP4fKjcKVyhEZWblSW eCGCWY0sov0G2XPdixv Eqf3AzIAfmWRfJHPepT PNdaDWrdgN6fM4jamTd UHZzLCXdVE0lnnVigAS qlEFxGVJ2pHViFXGdSt gpbLD5XCA3vA9kUYZsz uHrkSGMT3ldYPiaJJJd bmQgXGkgQkNMNlxpMCA gcmVhcnJhbmdlbWVudH PyNRXbPBHnFZOakR7pg GVkIHVuZGVyIGRpZmZl rwNgsIRoi9VojauxBK4 bKJCeJK7xzK4ziiPyw2 B6TZ9vqTUua3xfz3lxQ HXbn5LyuT1cQGTtOOPt t6SaqEExRUYtwddjWfS ccGFyfQ== Gross Description (test v1niqOGnJDJfuCVLOOt code = [id number]) wMVxhbnNpXHNwbHRwZ3 VexttgWEzkIW5vPU0vm CxeqVIjcSEfER6QLMYp ZmYxXHBhcGVydzEyMjQ tKHBrmMMxrXK6NLVrGS 1hcmdsMTgwMFxtYXJnc rC1RKBjhZIeD0XoYTNk ZA1gsjunWTR4MZcmzD3 hvgIQHovmNb4gxCApkL tcZjFcZmNoYXJzZXQwX MDpeFtcPMMyLLn8gW1W AgtuZ02jx8Q6Haw2MFY hOZGoD7TcDS3lCQAqhI EzN96NVsftAYC9BFVIL bevPTVmCD4Yb9obDOXs tVKbRBX4BSgiuAGiAKW wNQNyIRw5ANLtIAkcgU QaYY8vlUgrVxmzxSbcf 2VjdCBcXGlkIDUxMDAy HQktCVQpBE1QKnBrBCA sSHG6WSLoKBw8NIj3IZ 5VTcTuUWCpYOI4KzN9M FYrERu1ZCgtZM2BNAFn OQbxDFm3GVQyGBRvSye hRRx4LEZlRPhzNCTasR FsIFxcZnMgMTAgXFxmY cQpSPBuPFqljgV0FTQf YWluXGJcZnMyMCBBOlx dMIKqQCiifYkolY2xGK BvF57qg8KQk4BgKQ7GO Py3pdThzdxysK2gOKIr wrGiTQxcrDFzH0kvUfy jZjFcZnMyMCBSZXRyb3 Jazye1r15hjH8oHXjuA vDmJGnlPdObB5GtNRAD eJq8qWBfRJHez2K3QTB 9aGq6NI08YI3mrI8dvE ZgDKMtc1jlUPYiy7K3O RPsr8SyzuHrDI0xeT7t VJNch26aQW6iIJOiMOP vIDEuNyBjbSBpbiBsZW 4kvTcxWU4eXVVlUGWvo SBpbiBkaWFtZXRlciwg EX69yTWmrKnkw7BtxPc 0dGVkIGluIEExLiAgXH Xqf6CdO3D8KSZoWSyic 1slBBHlLOhpl9WiGDrW RSEFYS4YND8xpNM8KGn FO3DSB1wAzLDwLKS9wV P5JYANNhajoFS6nRY5v Z16YVBeYVLpnOIaGGgg G695CSO2KXIwYBlsx0i oXZWyHQhqe5LwSQiTAK XAQW3AGW4syYQ7SSsMQ 0VORHwyMTAxNnwxfFVT HJQ1ERshtWryxTq3w8y iwZPea0b3XKnjWUE7tC xwbGFpblxsdHJjaFxmc wDkSF8WEVDffKFVJTH0 YA3gAPg6GPhaWTHaW5M fL3HdcuJnxRNeXMNrbn Nzo1jsHID9CHKaoVPpv GIqOtObRgkcXIM9FIZi NKnlLB5XQCMkVOI7ZFu qwT06zHJwSV1YWKHcRB frPOAgLEIrslY3XRMzb PLcOPH1ER7jzJnicPKt pesuyfR1KD8TqK== Disclaimer (test code = s1iwxYXrBNEetKJ0NBG 9875) fFJLar7cvs9BejSCpvG TlJEiugESudrKbov27o LP9kI20LH8zKOBxQiR0 YQCgfdO7Awl9AGKdIVI prOZcF308h4yrj2lsgn AarKR0JYNqBRCaG2JyV E2aXZFlxGZgF34dfUOp EJQ2JLUgUJQzxPZkVGQ eCMG2UPPqzXNoC9lrBH GkHK2vazcwDClvPJveN JNsnBW3MSHmdFEoV8Bg VKUoIUtcPMCntez7IzJ mFd8kyXCejYnkFHqcM1 zsdY5eQoO5ERcgL8bzm R8hNDe3JFlvMZZdmZC5 tnP7EIPelDGdL6ChaZ6 bGVAbQR4ogcj6u6syYD D1VWelQDYoHyF5ohU8S DBccGFyZFxwbGFpblxm wqU9EPPaYUGnH37xTXS 2JWQ9bxFhOJSsjkLkWY GeWVToJD6npIHwBGPmQ TGjDL2nTNZ6QDupbDCl UWMoLGWmZBAff1JpTS3 xREWmhZHmUQC1CMTqo1 NcR4AwEAO4QCJgwB1lA CBieSBVVCBNRCBBbmRl bfGvwiDGGXPdk3afG3p pAT2mOUjjSd7mDUDwan kgTWVkaWNpbmUuIFRoZ HKcZXJve1TwTXxjvdIh wx29VJUhMG5xw6QlN6k ayTUlqZv0KWPzAOYsQY Mgr8UaMKEudl54TWIrP ysaqKikMTNpMb4uUb3v KIPopsLrLRR3FnCOVX6 bhxxjiDBwpJoghd2wHG YgYXBwbGljYWJsZSwgY 15xeYLtzPDgj2IoJUOf IYTtOGpdCKGwpkHms0s ms6RaMRQfnDPhdHUgDH ZnHOFuJUH9xVQcaUzuK lxwYXIgTWVkaWNhbCBu THIzh2NzaHpkhoYbhZt ptVJcdKjmckKin1KckS mkZQfbuDCow1jyj4RyN 3fhhGzaFWvfg4UeoJ1q QQFmYOLan3OuKOLbQOI uQJQagG3jSSQvaUUzk8 7uiT3ghEcgDVJxj0qqA 7n1m60giLLwUmKnpS53 cp0pgNPgf0G8vOpbAQL 2yQAqGZQnGe2cADGwNA BiMGO2NJYzHMzwj4Qml dUea7OriIExXFIbvjCb rnZjp0vbg4xxZlz+IFR lTQYpqZ96MQI6yG9mZB TlsOGyk2E0JZxbfnUtz vIehp42UQLvEXBjgUxe psPfxbJiSC00JDWpytM gt2XvIXzqOTPlLEGrDM G5wPNgstMtMSN7jLIoe mcgZXZhbHVhdGlvbiBp qoN9eEmxLEPpBNVciNE uLlxwYXJ9 [facility] Interpretation 2021-09-22 21:43:34 Test Item Value Reference Range Interpretation Comments Addendum 1 (test code = n0symIVkAKIzxTO6OLG 37) cKLKyt7jfp3TkqTJxqV VcTIxkkUQkchQstu57l EH6aO47ZV6sLMZvSaV0 LCXmzoQ3Ylf7LTEqVPG fvSDwS217d6oau2lxev PizUT1hCywCKIimtkvR sF1ULdzKXBxffayHRb1 DTvnZBQajDK3CTBpsXL nS1PdYUQrEA6bvbc7YC R0KYvtUZHuUlS8GCUhd CZzTUPscVifWVrgj819 LSS5VaOtYNRuqcBjtAr teT6dBqMrOZDGJHQcNG yixXBcl4yxv4AjO1wdh LmxkKY2AzDCqOVmMITe KL08FPGbCF6kHAx5tND pb48lXFPufChuXDCjDC Gyf3JzaWz6QIHcLsKjs hWuqQ8myU2xOBRnqUYo iO33KG2xeJH8QDzaCCR ccGFyIFRoaXMgZmluZG rjPzQbp55esUZpztO3y GUgcmVuZGVyZWQgZGlh W92ks9biArJYNMUcrJP rAZ1bDXFmPCDyrAQtyl ueSVDASOJnDMLiwIn7q XE8QZR0ISXsnhKonkHz dWVzdGluZyBGSVNIICB iv1AsBGhgUPJZTBSuqD PirZTxwsNmh7JsoWzno dxbxG0vStGzpsUrx7D7 GANhqL3tJJRbKDhfVkE hGJ54UPWhqbOzDcjlFN JccGFyIERyLiBTaGlta I9tYPFyOSuysgCzVURa GGszDLD9qJvmECRnp8H fGY7lLANxujR6eiMiy5 n5oEB2yYYbMFbaJ27ye 4fcSdhuFUQ2 Submitted Clinical History p6iykVIeLGFan0xsIWD (test code = 90694) mbGFuZzEwMzNcZnRuYm pcdWMxIHtccnRmMVxzc 3QfP2IeWpAzWHdgxrHs XGRlZmxhbmcxMDMzXGZ 0bmJqXHVjMVxkZWZmMH soVz5xbRVruHjzUbRgC PXjx4gaymDOrxgupMx8 z3iqUDEpYjV8bWZdWTx uV6kkqoHqgTOvCRGkGT x2eY98NAJgsO6twZCkX SahwtKzSoG6ZNqnOTKn VaD4STRdyKRoDAFfA5y yZWQwXGdyZWVuMFxibH DlPFX5dWjkp5E0zKCeq GVldHtcZjBcZnMyMiBO l2ZoNKa6nFryJ9PdOCS sDdM8oWEwSAZtTUyqQC FgEEWckkV6qX57WQzkj rN6rZQtk7Ouk08se337 hL2poPFuVMD6MHZyKRN hsCAhDPJgIMJ1IEQgjV VsH7fcENJtAS7gjqbsS EjcIEegYGOlgXR2OWCk sYGgZ4IgKHDeATxzVOC wgxo6KzRjQb9fbNAnuJ oqIGtfq8noi3bqiMFrF lv9NSYfQmWhJtgpEBcr v8Scv4psVVRzbj6fJWO 4tKIjbWszf8Y6sFEcOH ElrHLagzHpSUEpFrH7A WldGS0ahk26RIVxHUM6 hl2idKQsbGvibeIccVA lUQphA9MlZFBko215LY HxP3AbFFAqq2R2cwTzW cBkPDKytQC7emT3ETZs LDb6jSMopgY0qcLtaLJ pB3tusI6oUYKrKY1ddh zhq3xtNLamDKizKXZlj DY9dgV7SBQjjELnD0Za wZ0qTVUoQHrxJAIplbp 3RtCxTo3plOOcxZbzHM xzYmtwYWdlXHBnbmNvb nRccGduZGVjXHBsYWlu XHBsYWluXGYwXGZzMjR zdFsclLsyhI1cHpEeEr DjJKxaQP1kGYLwC3gcv IFeLZZkRAOeO0vwKhJo iP1meRbpMUzjdqIbDIZ hbmNlciBvZiBpbnRyYS 1gTfHphDqvZQtat8AwJ Q2bXItBNhMkVY6giZTv IERpdmVydGljdWxpdGl zIFtLNTcuOTJdXHBhci BGZXZlciBbUjUwLjldX OBuaiTUCEJ9FWinb1Nw HZY6WFEaTG00RLNsFW5 scD7dvEWdHQWrIZhIGU kuMDRdXHBsYWluXGYxX GZzMjJcbGFuZzEwMzNc aGljaFxmMVxkYmNoXGY xTYzsS7csXrLkBfXcId vhYRF6cO== Diagnosis (test code = 34) x5bdcBJgPHPoqOG7MRM cCZMkl4aui5OjfAAhgL HbZUotqVDotsZgec30a IP6eE70KR0fHZBqBhX2 AVLiufB1Ret0OAAgIQI wkYRcT754n1ovr8pogb UnuMX9nOwnZGXvpmjzG vR5IEgrSUTaczsmPCc2 RAqgDPGavFV9GDGpoTW tU1CmFKTeEG5ufsy3GD Q0SDzlUZPsSjJ6EYMoz ABcSMXgtYklFAjan485 SBP7AnBaHOLppwCqlQw lyI6gDgCtZCGOjU2coJ Rdp7FwCMYuSVK1HREdc PLuuBHsyDJuvjL1yBos tU4sK8TuV9DwCCRuYMR vcmUgbmVlZGxlIGJpb3 BzeTpccGFyXHBhclxsa CkzCJejpM52NpGdJNoL RlVTRSBMQVJHRSBCLUN FTEwgTFlNUEhPTUEsIE 3RMTWLAFtDBhzZG9AdM 5RPB7qPUPJFZIPQXIFX ZL8LDQBPMG8TBTRuTq7 JHXpNXSvWB8SbYFmVYp 8EFVIORGyVKYUpB87jv WVudClccGFyXHBhcmRc cGFyfQ== Comment (test code = 9835) x2umkZTiVUTczZC1WCU vQTSll3dpn8CktFEbhZ HrXKmltXXkmeWzvh45w CN1yI08ZG8bYBGbWuF2 QFLwgwA0Azh7QBWdKRS foKAkI815h4gcl8dpgr IvdAS9XKMyOAL4OMqbM UNzLIDdEbe7DQZ2R7yx ZWQwXGdyZWVuMFxibHV lMDtccmVkMFxncmVlbj XvKrb8XVV9BMr3BMQjj GVydzEyMjQwXHBhcGVy dMQ3QUVvJR7gvaezXHn jVXlmITJqamJ7ISFmrZ OxO2VmVMJrAH0ppeazR QN3MJibYRKyEMR7SvEm BOMpc2Msreg4BnUlyGW yZFxwbGFpblxmczIwIF BlciBjbGluaWNhbCBub 3RlcywgdGhlIHBhdGll dlLpeKQiOKW8St24SHD xCQ3sALHlFR9ex5b3wK 25wEppIfYjwIXbc8Mmj AljuB1elOLlFfSqKNzo B50yplF6GTC9jZ5znIF we6IehUZxUTymzTkbQO Pfv87nvnCzWVStIDVyT AReFRLsyD7yWCUNZSFk mbFyuB4dZ9fhHzOiRT5 rdoD6obX4OEPtdEPreM P5cNPyghRvpKRfjeHpe NLjJCBoUQtczQxmsN94 a7p4ZJ3ewlUdy2DxpTg lIHNwbGVlbiBhbmQgYn Hlq2ynokO0zb3bUATpt T0bONDgEAk9kLAoCTHq sl2wUNXxdK9jcNUtBXW dyaleYfTwMMuklX0zy6 soNeBwTPZ4eL2lbtEhx E58ZC6xREEuOF6bnITk LDBeOdHrM18mfzBrCG2 gTIq9vJDqEM7rWYIhd4 q9iFOaibWqbDXsB1T3i tHcAOFzBtHaQH2dbeRb YnkgYSBkaWZmdXNlIG5 km5FiZJS6eSLggTwyhC fbgCByaT1snPz4tyP4S G8hHDkyQVm1xODyr42x IGNlbGxzIGFyZSBsYXJ pMTS9hLLpXZxarxWffU xhciBudWNsZWFyIGNvb rRwdUWeDDZ6VLVpX4Ai KGDoX1suo25znPrdACP 4nQXeBERmQIH6LP87RL eokZKhp5HvCQA6vSSbl Q0xuWzbvO9yjNX6yXUy XVSpkiibHYVlxp6pnP1 cimDrC5JxoXOgiVAahE OkUD2vgTnuv3JlLYThe KXhW3VxA0ImzQLti0kd dgZvnWv8mOApJQIawEF peYAclDPrXE3ewLflBH 3fDK8eONJiGUVyKGYcb 1FirCZxc0FpP1i3t6Va YXNtLiAgVGhlcmUgYXJ yTE77mCUrc4SxSJUxo4 Y2q9BuGfIxy8WdVCSsL C3hOCNsTAY1JQOhBMOr aRDsqLgkKXKeG7KjNWI rKAJzYBUuPPymSA6cUH NvbmZsdWVudCBuZWNyb 0Bxyv3vMDNlcbhqELYp GK9dgB3ibRezoN0lsHW taWNhbCBzdGFpbnMgb2 1hIieqY6cjQLFnf6uvx eF2jDG8MVLyPOWuCX7d bGFzdGljIGNlbGxzIGF iVNWxc4BeoVi6BHJbc9 PyM9EjBFrvRgOMBEZgF JMKBE24MIZXVI5xW1qN RjQsIEFORCBNWUMgKH4 4TYCdFeWtU2XdsMKyoh PaHYJiBIbbDNIhE0Swn MTzXXFrKPJfh0x3rLUs IGZvciBDRDMuICBDRDI pQAjpuKTnr3B4IXtrLO vmR1crqBwjfGRrkXWhx Ufif3FljYUyrOOprXRr QBCvHPMjrKCyAI9ecpp 4uJNjQ3YjdSKnMKTkr0 4iw9CqNUGWxBEgC4gfC jcgcHJvbGlmZXJhdGlv biBpbmRleCBpcyBhcHB fd0hgaSK1RUb5PIjbRN JmGsIfKW5xePEfhVihX GNlbGxzLiBDRDEwIGJ5 OUsksBDzx9hub5BqQ5i myJbkbPH4MCgfIRQmub RpbmcuXHBhclxwYXIgR sjburHvbALjuEY4vrfz SU5axBzkfBTanVAtDa1 hxDOtNU9vOBHxahC8dq RqshGyn1XsU6reJC7ko 4foa8BdAM2nYDBvfuPg fjQgGp9dMSfnDFWjfBD qJRMmn17kTRXny2a6pA ZlIGZvciBDRDEwIGFuZ OXjg53dyBzppBCpm7Nu qANgvDufeXZyA0lqeJ2 mKXPMfRCoh7Ejn8ZtLK Eec2TiHIZewOJgizZtx 7M7BQKdafWvTFPqjIaj rtCuIXNwAO9bpEqvhHL vWCH4KZhsmk3xuPFaJV EpwpgnSnOmQHpiAZ38G FJfyNaaLtyaHMpvV9Gh KGMaOEJgAVlqe4L5kSJ ePn5oLDCeK8IwgLTawU 1glU7dQRHuy14ni0TuW CBvZiBsYXJnZSBjZWxs bxupU70ea0sudKQuzDG 4hGErPINeRfX7h7ZqaM HkT8ElYe9eOJtbZNe7m LZzw87lGzKBkBAhrK6s pJ5ztFnijs43jULiSxO zlY5vyA8kbdNilPTed1 H1IAIdP3NwpXruDIfeM 8PdiKCuSCElU6RjfH9j dArrOVtdrLCbp0ZkUL4 zmGjkDHlqQQNsn3GifG 6qVSUiMUMkNNXCYN0wN DGvO69osASglFVpm0hg aWVsZHtcKlxmbGRpbnN 0IEhZUEVSTElOSyBodH JrfdyaL8F8Ya0aZG7lW 4LsCj0vqQ9imGxaR199 MfY6VXP4MYg4I118JJQ kKFOszVWccXy8eKveKa AzMpscs3TzpNMlBwTdR EI2MeRnVdktIOqhUyKb SCC9aAtzNUizQCVanQR rSTKHD6gbk6P8MDbmvr Off3NaHJgjTAmDUPuxN SZbdAFwkwL5nH9rlcSp TBJoXLBgVF0cvuPmeGV flAGmWNS3jOJcZVJrLl jiwKM0QCM4mZ3wAILkl gMteHYEW8ifPZdfFDKo bmQgXGkgQkNMNlxpMCA gcmVhcnJhbmdlbWVudH HzXWWpWSBvIRNcqD0ov GVkIHVuZGVyIGRpZmZl jaObpYFpl8GmessqLB2 bMKYrRV8xsU4mhkSfr2 O9QV0toSWde5ldz6lwQ PAmy1TosD9eYBAaHSQt h9FhxDOcBHQfkqihGoH ccGFyfQ== Gross Description (test f0vgwSSlIRWtiODHREr code = [id number]) wMVxhbnNpXHNwbHRwZ3 MzzsvqTUvdEQ8sVV1ey HxfqBAjnOVdFA7UBETl ZmYxXHBhcGVydzEyMjQ yKQPmpXCmaVO2TLGpJW 1hcmdsMTgwMFxtYXJnc jW7AMGqgHTmK4VbDCKh FU8aiovmAES1VQhgiP7 qypTHKrexHx4bfLTczW tcZjFcZmNoYXJzZXQwX QNyiTubDLNhODz9cY9I BwgcC03qp1I4Ddr6FQF eZCGzL2ApJB9dATYkvL YeB43ZNajkBXX1IJFIB zbiDIEgOE6Bv1ucTATy oYEbISE4NWpwlLBgULE sIRWrQFh7AQRkOHbvsJ FkFT0jeDnvWvvkeFetz 2VjdCBcXGlkIDUxMDAy ZRxnPDTjDC3WNxAjGSX yBET4MHIrTQy3EHb5YY 8JMxPdAQWiGBM0ZjL6Q OLyBBd8GSjxQR4YPORk XBigKPv7UUPmLXNzZdi kOCb4WEGmBMopJBMvuO FsIFxcZnMgMTAgXFxmY pLjPHJxQStezjG5QKZv YWluXGJcZnMyMCBBOlx xYGTxXMenkYaanV6gGU YeL15fr9PMp1PjWY6SP Vp3awNbcgztsJ1vYBSg ntWpZYngkTAtP1tmMsz jZjFcZnMyMCBSZXRyb3 Davwr2m69rrA2hCRbdO kIyUFnwFhBvU9ZbRHQX tXy3fEEoLFFpi6W9JKD 9hQf4UZ17GS8peK2gfJ YkACJjy0pcQAXwv4B7Y WEsp5UjzvDnBX6frE6g AMQqy19jIM4rSBHxLLF vIDEuNyBjbSBpbiBsZW 2hlAtrPQ5lIBNyJTQff SBpbiBkaWFtZXRlciwg KJ42rVBjrXcqd9GkaHt 0dGVkIGluIEExLiAgXH Sfm6DmR3N2DCSpLVwzx 3igUWSvKWbjt0SlLQkU BJVYSK8WYE8frAG5PSm WK6IDX0mMhLJqBKI0yD I3FNJIVklctMG7vII9l T35LOTeFDPgwNQfITfz Z874KTZ6DNAeTZmmz6a jNBXvSOqpj3ShDGjFBC BPHT8PBA9tzOX2SOiJQ 0VORHwyMTAxNnwxfFVT QRR7EAejkKzkmBf9t7l sqFWuc9b7BNzyQYO6lV xwbGFpblxsdHJjaFxmc oAxPS7DBPAekHEJJNS4 TD7nSJe6VVytVZMvR1N cE1IeflVbfGBzKIJgpk Wqf9fsQOZ9CEYlgWXwn VTcJmNaFphqYXR4RVLw PMsrYL8UWRZjEXE4JCn upH11pARdAC3GHBZaCA byAZTmZLKzvzV5QVFcs YCtTNB7PB9krUthrNXn srtercX0VB2ZrG== Disclaimer (test code = s4mscSScLSXhlCR5FTU 9803) bOVHpo8typ0TxfWPkiD BhTXdjaKFedtGzxi81c SH3eH75ND7wMMGoUdZ6 ZBJalbP7Rwx4ZDShGSY qtZXmE711p6hoc2vjtz JllCF1CMDiFDCiN6CjK Z4eTLEhcRIyL78njUSq RWM5XKJcRFYqzQTzRZW sPOP6WRHhdXIbI0fwPR JsNZ2hhujnUOvePWbpF VDemVV0ITYhuKUlN2Yt UYTyGPsuCVNhtoa2ZyJ kCu2raSLfjGrfYXkaE8 mmvV9lEnO8AMlcI0lfz L6oNIe2NOvdOAEatWO6 auX0WDWfmNVwN1JsqC1 uNYJwPM9pbrj0i3kvSO S5ISzvNTCwDjA6pwJ6U DBccGFyZFxwbGFpblxm fuB2ICFaVKZbE78wEPT 5CNK4mwHlRRTdfnNaLA XvYWEnQX3piXFjMAPiS LIkKM7hQVV9CJlslJLm OZUaUHMxWQQdm4FrCL6 iQUNhyCWmYKC0XGNwm4 OxO2BtFTF9WRJpzX5nX CBieSBVVCBNRCBBbmRl udJydcUTATSul1lyY1f fVE3fJNxpOa9yQYHovr kgTWVkaWNpbmUuIFRoZ GJvAVOlg2UdVHyycuDt pi73QJUfSJ1eq7TiW0b qoQEkeNr8QQQhTGSjZY Rib9TgCJUymf57CITkT ykllVseLRRgGf7pIc9y ZRCuouYrIQB3YkVORS3 sxrqndWCmjSljsf2kVR YgYXBwbGljYWJsZSwgY 62hbJIscJKgl4TmZVSp QFUdBTemLVQnnfApx8u um6BfWJYjvVGaoTRtFV SlOPJcGZB8iQTvtFouO lxwYXIgTWVkaWNhbCBu WYAag4WuuIopqrYjxQy buDJfkVshloAqe7LxuL jqEQqcaQUmk3eqf7ZdM 3ddlMozDAzww8ExtC6s HGQzRJDks9RtJNFvUTG dFSOodZ9nJVGjbGZft6 6deC9rdXjiEIMrh4poX 1z4b13dkOHdSbMonQ61 fm1tqMTdx2I3mIuqWGJ 9gUEpCRKaNk7cMAZlOH WdCJD5VDVuRGldp1Hpc vLyc8RyoAAoMIXbxdTc mcDyy3skd7gnXmh+IFR uEURpgQ28QZY4cQ8oKN PzmBJno7J8STecxxJzw jRnan57LZVgHPTvrLep pbGrfkPwPT21SXVonkF qe4FuWDczALCmIRZnQW W5eKBlzkHoQJA7uHJuj mcgZXZhbHVhdGlvbiBp cwY7qTilJQEdKGXqvET uLlxwYXJ9 [facility] 2021-09-22 21:43:34 Test Item Value Reference Range Interpretation Comments Addendum 1 (test code = n4uwoBGjJOCwqOY5GXC 37) oXJNff0gds1RkwTJnkU TmYZllcPTwryKyop18j UA1uI12IG7nTHSpVhT4 OUSeppS5Uba3PSHtOYO fgOQrL791g9tco6vaob MbgUZ1dUyjYMZgrultU iF3VZuzXYGxbeguIIk1 ORvjCBOrsSN6YRCjeAP mZ2ElGMSkQJ9orjl5QM T5OLvhEMIhXuG8TIZqh NRoZLYwaJskSNbkz485 SZA4NnPcKKZgkgXlkDm tfS2vItYlPYJJYHOgJI bzjBTkq6qhz3IuX6mkp GpewKC2ZsRMsZRaYHSx EP61HAQyND9eCFy0zXQ ap23dYOIieVnqQBZvJR Bth3RieAn9YLLrBiYwn vRdvJ5gqF5fFMEoxLPx sR85AT8btDT0SXdlQQM ccGFyIFRoaXMgZmluZG fmBmRme33edVQltkX6k GUgcmVuZGVyZWQgZGlh R40rs1xpSxHMCXPtrNF lYN9kMECfYCWgiEYxdi scQSJRNDLmRFNugPo1z JN8RZL3JISdmqQkpxKk dWVzdGluZyBGSVNIICB jx4HyMPylACLCOPYvsW EmuGSuzrDaf0RfiKhrq wonfH7cLsAmczOla8V0 GXXqvE1zXHPoQPzpFfO iHY67TWZtaiSpRoilLZ JccGFyIERyLiBTaGlta E6kJNGeKVveuuGdSBIm XCdfLMQ4rActSWWnh8K mZK8tOCDvdtG4cjQqd1 k4lTL5xLOsJXzhK15ja 9mmTfpbKWT9 Submitted Clinical History c9ijcFSoOIKhr9yaOOO (test code = 49987) mbGFuZzEwMzNcZnRuYm pcdWMxIHtccnRmMVxzc 9ZiW4HsRxDwTPhppiAm XGRlZmxhbmcxMDMzXGZ 0bmJqXHVjMVxkZWZmMH yoCm4pxCRiuQipMeGdY TNab2pwsxZWcuzmoXs9 n2pzGTGkWxM4zDTdRWx fM4ijaaHauGPpZEFvDH a2uY23QYUnaQ5jlUByW ZfevoLfWpY6MZgeQUUo JgR4RIVbpDJkRGTcK4t yZWQwXGdyZWVuMFxibH QcEHJ0hZcby5A9qDCtq GVldHtcZjBcZnMyMiBO i8LzFUl9kJcgY8HrFIT nZdX1yCGpVKGpLGbmXM CfUCUpssR4vA72LBvjg tL5bFNfs9Hpp41mx068 tZ1yrQLpBSJ8QNCqUUJ wyNWiCTRwPSI3GXUyuQ PgC1bhIWUcMR8aeyqfZ NjgGScoUPXgdOB6UGDj eJIeV3ZxRFSwGUrjOTZ tvqr6NoQyQv9qgMTmwJ ncIMyhj6xji7aigAVwU bi7OFIuJgUfXoqbFTgx v8Ity4ihNSBqhj4eMZT 8tUPguQkng1U9uDZcEH KdxYNzdyWcBZUhJbB4A EtwIQ5uiq94WPOvCQT0 xb2suMDfwXjqpdAzuTR eBDzjC0SaIZLpk327MP JjF1RiFPTyl5D8ttVqV nVhIXCuzUD9bpR8BXKd NAe8hBOkijH2egUhiDZ oW8wcxS5gWAOoKR5uru zhg3epZXgeJZfbVXFaw PW6cyV3DJDenCUzM4Eg yX6mHILzHTpbTBHxvzo 4WpYfSj5nmQIpgOlzWP xzYmtwYWdlXHBnbmNvb nRccGduZGVjXHBsYWlu XHBsYWluXGYwXGZzMjR vfFsvnJoufW9pXzFtZe HdTHmvYP9yCZHzQ7tsd GWjOLUkGDRrV4qvXdDx pL1ttJfwYWiovxEqBUD hbmNlciBvZiBpbnRyYS 2rJsKcdSdtKYnti8RvZ M2iULcJXsCyJS6jzAFw IERpdmVydGljdWxpdGl zIFtLNTcuOTJdXHBhci BGZXZlciBbUjUwLjldX BPpdqUDUQR4FBlpy7Gw MUJ4TKVbNV22LLXbQF6 sxY6siFNaEOVmWVxCHZ kuMDRdXHBsYWluXGYxX GZzMjJcbGFuZzEwMzNc aGljaFxmMVxkYmNoXGY hJSusZ3xtFjSbFqYbWi ehAYM6vS== Diagnosis (test code = 34) u6nznAJbMUHceIC1BFS vMALhe5rep9DiqRTpdZ QbYIkiqSQtabGrin44n SV1wV88WA2dZFVkNtV4 RVLdwiJ2Poc6LDGeQSJ msJGwW907n9hlb8iubt FzxOI0mBolLPGqnmhyJ sJ9SLyrTMDizscxXHd8 FRcgPNThjER8SWQyeYT tG7PtFCZpNC8sodp5NG G9ZObmHSSaLrK0VOOmq FAkKARbhNigQHkuw518 FFD7JxYwWULzceQptUb efL5gMlPbAQKPoX2dwO Ewv5CaBROjLWD6WELwo FHcwVEauNDssgD2qFwi xG4nK2JzU5NbOBUcZKB vcmUgbmVlZGxlIGJpb3 BzeTpccGFyXHBhclxsa OgnNKfbxT35JrVjOBjR RlVTRSBMQVJHRSBCLUN FTEwgTFlNUEhPTUEsIE 8RPJYRRNzRGuaKQ7XiO 3GTN0qHYRRCSAKVSYAB ES1XNEENOZ7UIYOgKt5 ORLaZIZgNR4OwMBsAFc 3IDEJEOOtYMFEdN13tq WVudClccGFyXHBhcmRc cGFyfQ== Comment (test code = 9835) m4rvrNQiIXZrfTL8NGN lNZYeq3nmz7LrtMHokI ClYCcqhWVcwoWexg99h AV9uM49YK9oDEXyGmW4 WCAzhrX8Wgv8FQKhYCN kwBFkO151o3fcc4htyi MihCR9IOMqJUT9PHlrC BNtPNJePml7MJF8I6ds ZWQwXGdyZWVuMFxibHV lMDtccmVkMFxncmVlbj ZaVrz9YGN8VYe6YHFpv GVydzEyMjQwXHBhcGVy mRF5RNSpYU4bcxxkPPh fDEfeVDNnlaO1VTDmkU DuO9VkZTEoNS4adjkkZ PU7BBymDJXuQXI9WbDp JTTug9Yexgi1LnMkhNC yZFxwbGFpblxmczIwIF BlciBjbGluaWNhbCBub 3RlcywgdGhlIHBhdGll hpAigFYcQZW2Yg22PXR tXP6iUUHrBG6xf3y4lH 82bOyjWwAbsUCrv9Ubz HhjwJ9qrGCrRkItJJoa N64xckZ0PJR7yB0fvTI as9QvdOWtHIsugDlfHR Mzm50qraBrBBAwWTPzJ JLcPQEcpW2cHTGDSCKv ikRleE4gY6ysXpAuCD5 dvyW5xdP0VWFtxTUmdG B8pSBbyjGvlABsgqOlo GWbIYDbBYmtaRxkgR84 g1u7PG7rkjPgq4VvoMd lIHNwbGVlbiBhbmQgYn Tdc6wdoqR6tg4sPLNnc O8gFHBzQZg0mRAfNWWv zx4hQFLigQ4nwQNqGLV kglowFoYwRDykyI0oq8 xwQoHdLUL0rV9cmzFwx J25DZ7zGNAxGP8gmKZt TMLjCxSmX32akxNzCC3 iTDl4tVCrPR1fZLJlj8 b2tVLfrmOekRTnJ4F7i hAfJASdSgOjTM8wcnEa YnkgYSBkaWZmdXNlIG5 hj5VwETC1fHWgsNsluU izuUGzqD9olCu5eaK9W U1rOEyaTIr3uQNvn87n IGNlbGxzIGFyZSBsYXJ uIQF4gMLpXTuimhDnqC xhciBudWNsZWFyIGNvb hBndJDmRDT8GTVnY5Yb DMYtO2amx12cbXjxKVO 1lRUuBMXuTBJ2QR40AP unuPEhe6IkIBC9mAFkp G7syWfksH6lpIP6gRDw CRYtbpseBDIude6qcW6 egnOwN5AjoKBpxAUluI LaWX3fkOfwo6SgUVTyx NPxA4EpD4NcpZObe1xa vvYriNz9eLQlEXMkbVU oyILpeNAkYV1rpCuxXM 8bPI7bKTLyKJGtDQMpr 7XqsLDma4SuX5p1l2Pk YXNtLiAgVGhlcmUgYXJ oMK25tZWvk1BqJPJhb1 R3k6WvDlAoa3KqGRKxR T9xCYMsPNT7NFNpESNh dDXvpIjfKBJyZ1EdNQU mCLOjFDAxJHziPZ1gYS NvbmZsdWVudCBuZWNyb 5Rguj1aABUfshffLCRe UO2haM8zrXzhfR8vnFL taWNhbCBzdGFpbnMgb2 5sHieuB0ewYOFgd6txl lZ6rWA8EUSoENPkSG3c bGFzdGljIGNlbGxzIGF oMEYlm5TpvBt2HFQzp3 QqA2OyZVfrAbZQZSTfA ISGZJ04PEZEFP3uN2aR RjQsIEFORCBNWUMgKH4 0XNGyRbOkM4CuqJVuls QnXHQrNAdgJYZfV0Kih DXgGGVjMHRhp5j1vLCv IGZvciBDRDMuICBDRDI iDVgafPZuv3J2TGyzAX nkO0lofCbeoUHeeJDed Ifoc0BnaDMagYJplKGk XRLjWOHokJFiYH7dumw 6fILoG8AfiPSoWMAzr5 6xq7AhQHRRjKKxF1kqF jcgcHJvbGlmZXJhdGlv biBpbmRleCBpcyBhcHB xq9utuGO9AWg5EVntKA AaDuUgLT5jlNNnnHgzT GNlbGxzLiBDRDEwIGJ5 XAfyyMLzk8mtx5LrM0z ejSmmlRP0FGzvAXFbat RpbmcuXHBhclxwYXIgR yjwneNzwMLwmZQ8ddfk HH2blNyfdWXhkJHhMa3 ktZUsLO4iFYCszoE5ke TmszZmi7BtX9wvNQ0fb 6xuy3DfUI8zBRJyzoIr lzPwBq8mVMmuWPClxEY lQJTre34lJFOvp2z0gU ZlIGZvciBDRDEwIGFuZ EQjj18jgVuysGEsr1Dt pNJnqUkbgYMlH0uxiI3 oYJXEkEMmj3Ppz0LiPL Dck3SkOYCnaNGepxNpd 6F4DDOziqGtOQOlgAih hiNsRAIqVC9iqGqaiWN mPAO1CQejss4adWChWN LczlrlUsYrRUmzQU23R GWbxZkuNnvnTTzxH1Jh NEBzBETiGTwca0L2kWU sYs0mQXEfP2VvyLZkzR 5akT7pDFZaa11uk6FtT CBvZiBsYXJnZSBjZWxs hnvaY66hk8dvbZVqaMB 4iDQhHRCiIlR0k3NxbM KhI3RhCr0aUDmyMZt3v JBxr35zPwBDyFMgzW1l vX7lxIttzq57rAXsRwJ ydO5apX7gafYkdQRgs3 H5ZKIgV8FjaXedVSlfI 6UveNNvWVIpL7DgrC0i iWxhCDvuhLVtx1ReJA5 ttEaiHLroXTRbn0LheD 3rIAAnGVXoBGBYZN9oR FXgJ40nzFSliFBze8ox aWVsZHtcKlxmbGRpbnN 0IEhZUEVSTElOSyBodH UwqinrJ2O7Cf9qPE1vJ 8StIy2odE0zwXaqY093 CpV7GJJ4RMi0B085HVX uFZPhnZHxqJe9nDpoZy VdIpnoe2KgbBStJlAbA QT1NyKdRuhiHPixFxOp EFW9jPiiYDflNTHjeMP aJDTNV0tvm6W9IEvlsu Xdr9HfEDuqDVpMYUudV KMujPCcamJ0hA4sbcFe IMNgINYuWP9sagCspHV htBKsEUG4uGAvXJNdWj igjDB1KAY0lQ2rVLFrg aJrvQTJC2kiDKfmLBMq bmQgXGkgQkNMNlxpMCA gcmVhcnJhbmdlbWVudH UtZHPdEVNpQRQffK5hk GVkIHVuZGVyIGRpZmZl fdItyEAml1XfhsmrHD2 dSPZhBL0qxM5ueiMpg7 B6RI9qeZSrr4dye9beJ PIrp4ItlY7hOTVmGNKa j8ScuJFjEDNxrhkeJdW ccGFyfQ== Gross Description (test k6otdOLmZJKzjWLLJQu code = [id number]) wMVxhbnNpXHNwbHRwZ3 HicizgQAmlVX2cEZ4ow SscnYIyjPKeVW8JRDXh ZmYxXHBhcGVydzEyMjQ iOIRpmJMyfFX2AHQwJZ 1hcmdsMTgwMFxtYXJnc hV5FQMywHHdY0FsQUFg QX0vkichAHA2LDcthN7 besLKIgphUw4jbXDppG tcZjFcZmNoYXJzZXQwX JBzyJawSRKtTAe0nG0F BstiT51gm6T0Cay9QOA mZACxU4IxMH3uUHQnxS DzC46ZIkmpPKB9YZEVV xutDFZtOX5Qt2tiZOBl oGLpZZE5YHepaUWrXJI nAMByCKi7GBVmFYcqeV KdZA4mdZxiQjestKrof 2VjdCBcXGlkIDUxMDAy KZpcFPAoNU4SFhXdZDJ eHAC8XEGzWYp4IHl2JN 7VVzXsGAInOBR0BaM1T DWtIKp9IIhcAC3AMZQt AIrkYRi1TZGzFIPkFpf yLIu2CBVtVIcsEKYnxD FsIFxcZnMgMTAgXFxmY hNoWNCwKKrycrO2CEWo YWluXGJcZnMyMCBBOlx gPZOdNAmeeVncjP7jAL NlZ73mb9GDe5UxYQ5LJ Px7oyBsompzuA1eBSGf wkYgOOqnvAQaT0xzXft jZjFcZnMyMCBSZXRyb3 Fepax5r32ubT5kBPniO eYfCMjuWvDpO8LmFPNI mIo6nDViLJRfg0I7XPI 6oMk6FM25NS7dgL0ieK BkILIfk3ylEVHtu5X6C TRaw8LfpuKbJF9tcX2n KNVpr68tMP3aHLIqSZK vIDEuNyBjbSBpbiBsZW 0zbZgfQA6uTGPsGRCdl SBpbiBkaWFtZXRlciwg OP12sOBjqIptf0LfeBq 0dGVkIGluIEExLiAgXH Hjz2UmJ9A3HRDyVMepl 4rxUTIuHHgwz4VkOUiN ZWETWV3VCD5pkYO5WLw EZ8FKN6kErHTeQNZ0yM F0MGDFSzfqzTP8bIG7r V64BHOnUVLjhIGtRUby J735MVU3GHDmDBrrw2e eXZAhMJcgy8FyPMqQTU WUKO7LBR8ryFN7WDvXU 0VORHwyMTAxNnwxfFVT EIM2HJccgZahuPd4f6s bcYFuk0q1ILcvJRQ0qS xwbGFpblxsdHJjaFxmc eEbCE7NUZUhaDHCPJD4 IU6lIXu3YOlaWSOuI0G gO0GztfVfoCQdNPNjpr Nrg0ocZHE0ZVDzeWCvb VWyLoBeXqdmBQU1XZGy GHwcFE3FUFBuGKM4PAb cwE20uCYcNN3GEHNtRG niNNAxLTMppvG1TKJmh UDgXAZ2AC0xiGfrqAFo sckvdwR4HB7RaQ== Disclaimer (test code = s8ddpHHvMESeaIF1JSX 9883) uOXQbr2avt3ZmiPIodA IvATgwwWNwxbSpia23o SS0sK45PM4rBUJlPrJ1 ZKNhbkT2Hpc9NTSvRRJ oqCGaL590z2uvx1dawt BtqOB0LDGxTKSwK9CaJ L7vNUDucDItL44szPUz YRX8RYIqQOGnjFMiETR zKZI7UQCngOLiV6uiXE OkDK9fjhqaLJclXQhpE IAkkPG0HCIfhGCpT8Cy AXVwNEzeGTXkaou8HwF yYd5anEFbgMfwZJpfD7 agfZ3pRkX2WIixB6pdq A3eZVl0MXggAAYhnLM2 nvA0DIBttPLyI1RxbN2 dHOQuDF3sxob1s3sxHG A1MJiyDDJzUdJ9rhL4M DBccGFyZFxwbGFpblxm jhP5VNSoSRUeU31dDZN 3OAT2fnMwBKCzzhKhMF EhXKIaXQ3qgOXlYWVsN USfUK6pIZS5TBcvpWCq SMIePYYgRHLzu8GcUW5 wMIVywYXnBHQ2HHAlp5 EyW0UiUWA0CFSrjP5sT CBieSBVVCBNRCBBbmRl uxHysbBACKUgl6swN5h vBI5jHNnrDy1zZSGksn kgTWVkaWNpbmUuIFRoZ OHaDAMnb2VdFFfaqaUf ev00LIWpJR3gm3PmL8e dfGIpuFh7QWXsXRQfIK Ojr3UpHWKgmd69SYWyJ pzmrUijUTOiBw2qBp7m IHMnjcBxICN0AuNAMO5 bofknnBBskMdswp9qKP YgYXBwbGljYWJsZSwgY 14yeMEkhZFef4UtGCEc NYTkJNuwGASijqMrw0b wy3SjRQHsxIEobXAmFT MlYHTfLTK5sOHpjDcpS lxwYXIgTWVkaWNhbCBu UGTyu5ZiiBgvsnFsoBm akAAdfJnbaaBnu0MgsZ eyZQsjaPWgd8rvo3JjZ 5hxoNkcFThcg6KfaV3w ZYWuTRMwi9WfUQJnMVV oJUDanV9uBHJmxSTzy7 7qjJ6goOwtYFNny1xjT 5g8g92fxTOkQjEbvL50 lk4bxYDkp1E8dRqkXLV 1zSJxJUNgQp4yJPYaNB HpDNN3SFByNZsnq3Irc gFpu4WufCZcWIEaupSl moVjb2nbc7mnHer+IFR fWZJadW13VOF8mX1vWD NmjIOfc4R9VClnnzQpm gOwor03XCBfPTHkqRnh ciWromYgFL05OYNssfD xx7WoVNdqHALrZEBbYU T0pBPrwvZrFKV3lCGcp mcgZXZhbHVhdGlvbiBp xrS2nUwqIGOjAJWirXD uLlxwYXJ9 [facility] 2021-09-22 21:43:34 Test Item Value Reference Range Interpretation Comments Addendum 1 (test code = i7bgbDIrREAmzVE6OFH 37) zNICoz8sxh3QnvEHozP WxIAujaLKgxhHjch80a HP0yI08BU8eNAGeJwJ1 KUTtlgN7Rsh4SLAzKXP vjSWuW766r2iez4lbzx JsjAT9kWptYPQfeecoG cO3MWtyDUWehbezQHs8 FKysPCTaxPF6FGHwpTB jI2BnSQTrJF4tfsf8OP C6XPigSZXaAoZ7YGTgi PAeQLEsrObwHEbfx921 GYS0VoAsPZSknlDmrHx knJ1yLoRnFSOATFWkER flgUGya3jdp4BgB0zof CysqMT4AgBGqDWwJAIy HY99SPCeYM0hASp8oMH it54bLATfiWsnOWIwJA Wms3RjiBl3CVPdTkEzi rBxsS2kvR7pXWQcsDLv vC25IA7ikRM8GKwnSXA ccGFyIFRoaXMgZmluZG leLePgg24bjUNabyA0g GUgcmVuZGVyZWQgZGlh L01lf7mnNdZEIVGczNT oEZ4jQFZbGKRjsNGlym goPZFLOROfUYYxzCg0l JD4AAA6NKVmmzKdlgFx dWVzdGluZyBGSVNIICB dj1DkTXfxBPCPPDEnnQ MspXZsbzMhn9UmcIaak hhwwP5hSaKhdgLoc8M3 YLSytD2hVHHrFGtfNyA vUR46CLPepgTtJoemPZ JccGFyIERyLiBTaGlta G2rJAHhAMsbqcJhDKQi ZWmrWGK0vWopLPZgp4X rRI6fVHMvpjA7nnIlm2 k2kJC6xUHrNVimL55oz 5vnEiumXHI8 Submitted Clinical History g3utoMYeUAXxe8gtCXX (test code = 79296) mbGFuZzEwMzNcZnRuYm pcdWMxIHtccnRmMVxzc 9AfA0PkZfTwOTyeotWo XGRlZmxhbmcxMDMzXGZ 0bmJqXHVjMVxkZWZmMH kcNh7wfBJypWjgUqZxT QPve7bfxbXLsawohQh8 x0jmKGSdQhU0bXKcWCh dP4qodpOhuBWvYNNjSQ o0sF55PRJjvA8akBJnY VxmliKcZhZ9WZtnMZNo TpT5XGHuhTZhNHKlA8z yZWQwXGdyZWVuMFxibH AtFYU5cGjab2M1iIYrk GVldHtcZjBcZnMyMiBO g0OoBIm7bJflN1GiCIH cQsA7rWGaMTHfYNsoQL BkRQFaygX5dM12OEuvv xA8dYIxn6Mpz57db531 lX4xwQKkDAW6DHLnSKE nfDTrAMGhUHB8WOMuyV YkJ8gdPFOeFL8plopaN WekKRzfKRBoeXX4ULHn nBJlA9JjEFJgEHdvIML qgxl7PqZhEo1uqVTrhV bpETslg5ixp7caiXPiT ec0UVWxDuNtViiqCMzl b1Bmu5ogAMZgtv6fOLO 8aKLyiVacr5F8eQHuQY GfiMBaqrUgKCFnJfL2L BlzWJ3nns01DMFuTFC1 ar1vlQZleVxmvaTuhVC qGHycT2YtZXVhm419BW TeV2NjVODjf2X0xhCsL cTtABPegWZ2fhJ9HBWi LLt6qUNmfcH8jdZxfTN nP7uyyD8lKBJvGO0yzh sik3sxDNytIZulZPFaw XR2lrC8SRXzgZBkU5Yk vB2zLJTwEHkbWKWgtky 0GaPpJy2xvUPtjFtsGD xzYmtwYWdlXHBnbmNvb nRccGduZGVjXHBsYWlu XHBsYWluXGYwXGZzMjR ijSlcfLlgpN4eYdUvOm HeJLazCM7eCECoX7zqy CAtNUZxFMRfZ0jdWrRk uC9jkSabGOatmjVdHIZ hbmNlciBvZiBpbnRyYS 4kKyHlaAeqVQluk0NhB R9qRTwLVoBwBK3wfOFv IERpdmVydGljdWxpdGl zIFtLNTcuOTJdXHBhci BGZXZlciBbUjUwLjldX CDsauZADDS8EHtlz0Qz QPW6EVNdII00ZZJkUX2 tqG8szZEpWIEzGPpBLR kuMDRdXHBsYWluXGYxX GZzMjJcbGFuZzEwMzNc aGljaFxmMVxkYmNoXGY yXXfcS9osWnMbCsNbNr hlBCN1nD== Diagnosis (test code = 34) p8jfaFHlOMZpmQW0JEN tWNLxy8paz0AytOBxdV TvZCzngUYqplGjws45l HV0mH13LM0zMJAiEnJ4 QEAhhpC7Eql1TLDcXZH xnGMdK192u6okv1ktjz BykVD2wBchODZsisveL lK7QTyxJOPbpqcwKRi9 UQwrAOYgvUC2OTXbuLD dK9LxRKSoPN5iodz6OH W1CMabWQZgYmI7VXPwe GQuGXLbhNwaHOajg937 FVF9KcPpNTGmzfUdmBf tvI3qGyGgSZVNtZ4iaA Lgz5CoNAMaSCB3TQWpi QPtqSDvkJErzcM3wJzf sK8gS9WaK5AaPLMdJDJ vcmUgbmVlZGxlIGJpb3 BzeTpccGFyXHBhclxsa LioQJavmF12AaTmQJrI RlVTRSBMQVJHRSBCLUN FTEwgTFlNUEhPTUEsIE 0TSNOLKOcLHryTX0BuD 3WUT1nFBVLBCUYGAPES JV8MMCCBKO7UFFEuAt9 SHLgFMNsAR0QoZNyPFh 3NEXSAKWcVFBKtL08wy WVudClccGFyXHBhcmRc cGFyfQ== Comment (test code = 9835) a0ureBLmKAFemCQ9GGW mWFCdf8eox6BmtTRfyF WxYFicdHRypoRevs20z NG5tV38ZR4bVNSyAfW4 JTBlkkR2Ofn1QLHwJZD peHYkG262n0moj0wfpe DdlYK9POQxEOG7LBcsW ULeXMGmRlg7ADK7J7ar ZWQwXGdyZWVuMFxibHV lMDtccmVkMFxncmVlbj TeSqk9IEN0DBg7VFPcp GVydzEyMjQwXHBhcGVy qLI1STSzWY2mqwprBDr vZPkdWIBwixW1NNHueK LeJ9RxRRYaNS5jnkmvN JB6JQdjKDAvBLO7KkDl CXHcj9Kymrm7LcCzdZH yZFxwbGFpblxmczIwIF BlciBjbGluaWNhbCBub 3RlcywgdGhlIHBhdGll kkOmnOOnIBQ3Ld75CJD fSG2rWHKeAT0rv5n7dM 19tHxyMhRtwICys8Cdz ZpygF4rfAQcKdUwJEmm T09qhjT9VQB6aT5dcVI rz5KssJOaCNvflYhpDI Hgg24zasScHORmTYFvF WGxFVJocL2kFOQUHHLo ztNnlC6oA8wrZfMdLY8 dohI0azX4JRLkqAGelY E0sJVsybPjqLGxklTwx KXnFCVhQZntvDgplA07 x6r6MA5anwFnj9JsyIr lIHNwbGVlbiBhbmQgYn Pfr5iyhpU3hp2jZMCzl Z5qREAtTBq0bOQcRGYz jp7kWTZwpA8lmNYtORS vnqhyKjDqDKupbD5ln9 hxSmOtNIK3eP5hqyZrb X93EX7qNKCgNB6unGCh JKPqZpFxI16lwnKcSM7 jJCs9yEMpBD3bCHZgu3 g5eHRflmPdxLIjN0Z8x sNcMIVzQgVvKX8vydEa YnkgYSBkaWZmdXNlIG5 lt2IdPJK4zUMgnXsezW msrFTyqJ5olLx9umT2V B3gCSrnOVl2xKJez94f IGNlbGxzIGFyZSBsYXJ rJJU0bLWtFBthgwAoaT xhciBudWNsZWFyIGNvb yIipMHvBIL3SNGuW4Tq JKLvA3loj14bmDjbPUW 9pXVhRQCfAEF2LM44OY bxrSBkw2ApXNL8wVEvv L0kgSzscQ1zvDA9qVRq PCLmjidnCWDbsq4jdX0 zyoFkI2DheCOxhQSqyN PcFV3saJhnx6XlRXKbk FBjV4RaA8PhyWIch7vq lpRnlBg8mVPxDLItjWW rqAYsuGGjER6yuXuwXQ 3pXC7kGITdBWKzNTWbg 0FpfVEtj9UdZ0j1l5Wx YXNtLiAgVGhlcmUgYXJ lLB65fOBcu3OgXJYjf1 S3n1XyNqAst5CcTXNkH V0jWXZqXKV5MMSwGXQq hTBirZnvNVEqS2WaFGB pQNMaWZLrCLukAO7iFL NvbmZsdWVudCBuZWNyb 3Nwkb2xTLFnrfcsJIJq OL4oyH9mcVqigM8czFI taWNhbCBzdGFpbnMgb2 4fYgzmN9clHBKhl1gcn fH7eWU1TFFaUQRoLX3a bGFzdGljIGNlbGxzIGF jCOGwx1ZkcMj4BIFlv2 TlC6KoKOptIeMUWFFzJ OSAPC55ONKVJY8wY3wQ RjQsIEFORCBNWUMgKH4 9WNDzAjWzL8PbmSQagq SlNBCjKHvxWEQxX9Dod XMvWRXjGDJgt6v5tCUe IGZvciBDRDMuICBDRDI eTUnkfKJop4B1ZJevUC tmY3ojhZpilCNvxSFck Dhry1AoeBSjqRAzkNTa XFSqLHOabFErPR2sehp 9gNRtD4ClwBGlEUOzw0 6wb7RpFQWOvFLbM9ycA jcgcHJvbGlmZXJhdGlv biBpbmRleCBpcyBhcHB or2sbqLF0NGu8UZorTD VoZnQvAI4jjYRwuIsiN GNlbGxzLiBDRDEwIGJ5 XXmuhEMto6ouj6IxG7s dlBxnwDO4RXwlWMJucy RpbmcuXHBhclxwYXIgR rinunRldRIpwUU1tenz YC4ewKroqYNawMYnIz2 cpBNaNJ6bGEXbiiP8ow MukvXad5TvQ9seYY5mb 7tef1DxEV7pUYBzthCt kdNrOf2fBUehTWJqgEG jJKLtx88pCUIwh3v0tM ZlIGZvciBDRDEwIGFuZ RVht25hwWvydJPpg3Sj kHEnwAmruRPiA6hgtS6 bARQVaLOig8Sgl1HoEB Ahp4UhAEFkiZKkegWtr 4Z7TQAzdgInIQDswEyy irPnFTXuVF9jsGcxgPX hTJQ0MBuxlu6vjCQqYD EapqdrAsKvOFnqNC36V OGqrQzjJfjpCUywT0Qh GGWgBLViGWvwq9B0aFP iZs9kDTWjI2EtmMQkuU 2lgQ0oIGAlq80ih6QxF CBvZiBsYXJnZSBjZWxs dsspJ63gf9yytFPbhOG 8uSZoWKSwMqR8s5KmpK YkF6CyYw5bMZkrCDu0b HNon55kXyFQjJOagJ0n qJ8rdAauok91eODjOhN edC7bqU7sthXgeXShu2 N4DGRbB7WiuFxvUUqhH 0KaoLHlLDYpA2GzxZ8o iKzsHZrvxJLzj8XfDK3 xtOjkDLyjTOQwa2HygR 8xIDOuHCZvWPYKNM5dB QPgI27sxCMjgUAdc3du aWVsZHtcKlxmbGRpbnN 0IEhZUEVSTElOSyBodH PmecheQ4E4Tn7lVU7eF 3UmZg6ioQ0ibQbnZ068 BxV6SZX3KBr3R567YJW jWTOfhZZosJz6jIuhWm PlIpiar6MimRSdImHfA VV4FhWdZyxxJYmmCbPz QPV6oBluYCvvBYPfhUI gSOGJV9npx2C6PEsqfg Dkb7QkIRxpQRnZEGbgQ KBlpIZpdhK0jD7iooQb ZTTuPNFqRT5fcrYokNQ oxGBeYZK6pZToKFOlCd hlsFU9FIF9pU3wLJGag sKmzXDJV9vdFKkwCIDm bmQgXGkgQkNMNlxpMCA gcmVhcnJhbmdlbWVudH DpKUBvOQZmDBYwbX4af GVkIHVuZGVyIGRpZmZl gjMyeMNhd7WcmbqkWT1 yKXHzUX4tnZ5ekoClt2 D0FG6ioKFqw6oel8xlO PNer9JhsA9tDSSlHXOo n4BiwESeZFLfxqurVoS ccGFyfQ== Gross Description (test k4triMXfVSNzvKYIZEn code = [id number]) wMVxhbnNpXHNwbHRwZ3 UzixrmVStgBD3uPC1we EwsmQMpsSPpHV9KIJJx ZmYxXHBhcGVydzEyMjQ aUEPraBZyxLH5KXHaQI 1hcmdsMTgwMFxtYXJnc yN4EQVjoHPfU5CmGRZg OE4yrpppQAY5WOvytO5 mtlLGXhoyBz4bdFVnqH tcZjFcZmNoYXJzZXQwX OMsrVseJYCgIPq5cJ8K TvmoP95ve9Q8Ycw8QHB sKZTvW5XbEM9wPEFwqQ IqA83MVyjqMSI3WRTXG pbjVNPeMR8Xq6buGREu jELdMEJ1NJomcRYhAKY bNCFiLYe1SPLwOCwmiI SeOI8uyAisAojaoIhsf 2VjdCBcXGlkIDUxMDAy XCfhTURrGL0ZViYyVIS fICY3EYJdHLq8CQy2NP 1VEjLmTNWjEFA7OrQ8T NDoCXs8JSgfVM4UNKTt YUqrCMv8DNBfCPGtYku yACk4YXZrJAdmDKHitS FsIFxcZnMgMTAgXFxmY uWnBFGcYWgfoaG0XAKm YWluXGJcZnMyMCBBOlx mUIFvQEqrcLrisN8aOG HtH97kt2XDn5BtAG6EB Pf1ysSyadmhuK9iAWAo xbOmZUpzfGEaC0noSlv jZjFcZnMyMCBSZXRyb3 Bdzpt0t61eaW7mXYfzB vCeIYdmErZwQ8AuGCCP jHm8fTSjAVVfh2V8HER 9tIp8JW27ZM7ghR1ulO OmMOGzp6dcNUTfl4P7G CWyz4CbyeAhJI1wmO5k KGCps79rTT8eNCTyWWZ vIDEuNyBjbSBpbiBsZW 3kaWolYU6hXKWeILWtl SBpbiBkaWFtZXRlciwg KZ09oLEfgZflr2AtyFy 0dGVkIGluIEExLiAgXH Xnv8HbL0V0YVJqZKmxn 4lzCUKmQCyrx4RfKJpH EFRTTU4VJB5hyPO1RDk KV4GOO4iTjSXpBIU7dX X3UMADOjphsBB2uBK4c K76YRLkWNKftLUcSKuh H444BHP7XVXrJGfxb6z gRMDnOPnfa2IlRNnPAB VJPU8XHC2thTQ2RXwNS 0VORHwyMTAxNnwxfFVT IOD4FAkcpSrvxWq4u8n svMUps6d3WLgzJIH1lL xwbGFpblxsdHJjaFxmc fDlJH3PTVKfoCSIJVF9 XC8zTWv5LUqvDOJwO8B mK1HhscIqpYFjGACxnu Ppw5xjWWC8IPEwrGZft QZsUoFmTpudUCV9QTFn IGbpOS8QEDRkCNC4NPv kgK41qHKwYC2TODRfGT isFZIsETRvpvV6NOSek YGiJIQ0QY7ivJncsTNe renohtP8OS3YsY== Disclaimer (test code = i0cdbLAeUOQckUJ7MUE 9810) aEVRxv1nvy3HxiWRvpI UwFBskkIRinlYsze42p RS3dP12KL3rUEDoFvN4 DLJmjiB4Uba0SRRjKTY lrXYaM033j3hen2ddds GffNV9LUAzULGhO0ScE B2qIPZxzJZqM95gnTWv MUV4ODUmBEHsbLRxDVM tTVC5QLKweZUwW4zmKI KyZW6lxrtsCQheVGqoI PCgzID1TBXaxPKkX2Xw FABmBWqgIANtyiv4NoQ uXj8zfJVwlFtdEEtxL3 mgqU8hZkR2SRvgN9wch X5kFYd9FXntDALkdEA2 mbU6KWUvbBSaN1AkzJ5 zWGRyRW4ahyf9o1tlVY S3OMfdRKMhAmF5ycC0Q DBccGFyZFxwbGFpblxm rsK2FYXyRXGhV53qXTI 7YMD5hbGmESQsuaDpVU IbMVWjKI7knUVqRAFiL FPxPI2eERH2GCchbOIh UKLgGDRhNYEwc2ZkCA3 yIPFyjLJxPYP3OASep6 IjW3HeRWI5CWRjoE3qC CBieSBVVCBNRCBBbmRl obKllaDSEZDdb6ddY2a lSP6xRRmmIe6uXJIezs kgTWVkaWNpbmUuIFRoZ IKiGWOok7VaYUppufOi co75VILaWJ0uk3ZhZ1f fiSOzfBn8QRTgWUZvPA Ubg9PoQZOkeo55NEGhX ycreDuhQYIdJa0lKi5l LOAmjfPoEFA6YaNAZG4 lqdadgAMejDgwyq3nZK YgYXBwbGljYWJsZSwgY 85txDCwdGIve4TsYZTf QTYgVJsyBMEbeqVio3k qt7HiRXOrsDDjiNTjXL KdSFUcSVW4lAQvlHtaW lxwYXIgTWVkaWNhbCBu DAZie8KlyImbxxSkrSf dbKActZhshdZjs5GeuZ qtQSxosFJxt3flv9CxE 7tvlVbyASkmh2PbsI6e DDEbZLRav4DrGWWrFIU pNTQmjX3kXKNzkWLoo7 0faW8lwFoaOHVgl0jmA 6w0j89gyFXcHwXklM91 rg7rdSGri0O5mSggAQR 4hCUmKAMkAz2yICIqFW OwZVB2SLMeFDclk4Xwr wQtk5UbbZNvYZMetiIf acLen9wfh7beOkp+IFR eUCBoaM43HRZ1iZ5iOK JgfRQsd0O3TWbuxqIah iTlrg97ICSgONUqzQpo goNpmpUlZO21NALrhdW kd0TkFNvzGUPzBVPoHZ X0jTKwklJwDVS9mNPvi mcgZXZhbHVhdGlvbiBp iaT4kEjfZDArXXLxlEH uLlxwYXJ9 [facility] 2021-09-22 21:43:34 Test Item Value Reference Range Interpretation Comments Addendum 1 (test code = v3uqyBNvQMQsaHK3VST 37) zZRHkm9czv2GpuPIlxF VdZByvnXZarnSana21s ZT4bA42KP6zYYJfOxJ9 TGAihsR4Dot9DVIoBRN trZUdR310t6qqg8gbaq PadHU1hAguXMLetfjhD cI8DKdgJMCrazkjDYt0 WXawOXVtcWW3TLRxzWM qI7IkWKKgHW5esrz5SB B0CLydUCRhBfM9SKIwd EWsSPNooDneQTpmv448 FJW6WsBnLOPsayXrxDf nhD0wCiWmGAXCGYBxZG mcpMFoe7tqm0ZoB6ecv PaywVP5FfHAnSUzZSBs DF16INZxUP3mGOl7mKL hq29zRKXkkSarVNDdOW Moi9XziVe3STQwWwJpz dFhrA0wzD0eKNSroHFv iV13MT4uhDX8CFyhCUW ccGFyIFRoaXMgZmluZG saAzJrs00zlKLemhV8l GUgcmVuZGVyZWQgZGlh B20vz2qjEgPJGWJerUI uZZ5kCAJpZQWdfWBjcu pzDJTGUETwMEBtlUo1b EK0YOB7BGLaxnIymkPz dWVzdGluZyBGSVNIICB oc4XlUDwfUBPRFXVytU QamSNpzuRhb0TrmOlpc gvfdT7xZuFavlKrt0Z8 DXQrnN9xEYBwSBdlBoD nPH61LJEbhiSzRjdpGB JccGFyIERyLiBTaGlta A9bCGBbTUcubzHaRSFk DKvtBVM6nMxoGIWdi1R uDS3qVTHxzmG0ucAfw4 r3nCV9oDHzCGqwY39ct 7toFdskAQK3 Submitted Clinical History q0sstWXzSGWxu6dgQLU (test code = [id number]) mbGFuZzEwMzNcZnRuYm pcdWMxIHtccnRmMVxzc 8YuX2VbKiNuDIejuyXd XGRlZmxhbmcxMDMzXGZ 0bmJqXHVjMVxkZWZmMH vtFp1kjSJhwEfeZrAmJ OTea6tvpkVCgcmmrXm2 p6plTUWyGeM0bOBbVZg zJ2bygcXtaKGsATFkHL z5pV00LCFvrO2dtVLyK JkzvoPaAlF7APhbOLXj OcW2TELmnSJeNWWeI2z yZWQwXGdyZWVuMFxibH AtJKV5wEtpb8N2tLPug GVldHtcZjBcZnMyMiBO l7MjFSz8jAviN7UfSTU pZjE5yZOyDQPhLQjdIY SrFDDmpzA4hX52YBrwo kF7uTDxp5Uva40jh265 rA2yaDAtWAD0VGJeNZQ sePTbZPXvLQX4HBLvbA KwK9dlFKWpTF7jxnyvN GmbXEpcRNZnsVO6XBSz wQWrR7KiJCKwQArlWQB ftjs1RmFuMx4mzCFxmK geKBfuv0pva1jsxKGsA gs5ORQeZwDhNkjhMLtw h0Nus7jdHBQytr9tDOM 3mZLxwSqcb8T2uRNwKX XvqCPdneWmFUOqCeS9S CiwCD5gxi43PTElMLS1 xw7rkZIyxZnuopWadXY jFNbtU7IdFYZqm967WF TeG7ZvOWDqo5G9eqQjR mUlUOMsnEJ3shW1CHVo EJr0zHEnknN9leWjiPL fL9oonC4kDIApMI9hsb loo2eoVFthXTwxNNVhy KX3odO9QLNilIKqK5Sa tN7dJRZvBHcoUJLkeho 0WyQgVv3ntBBumQnlFI xzYmtwYWdlXHBnbmNvb nRccGduZGVjXHBsYWlu XHBsYWluXGYwXGZzMjR daVytlOzhlB9uDuHmQq BoWKxgJA3jWJYbP2tih SJdIHYaILDvP0scVdMi hS9krHghCWwadbJyRDT hbmNlciBvZiBpbnRyYS 3wCwXytExhZRzji2LoS L6oXJbNVsRyAZ6ahRDs IERpdmVydGljdWxpdGl zIFtLNTcuOTJdXHBhci BGZXZlciBbUjUwLjldX CEcjnAYMTY0FDrma3Gy PZI3VRLtPT63QWYwGA4 euA2qnRIzCZSaMVnYDX kuMDRdXHBsYWluXGYxX GZzMjJcbGFuZzEwMzNc aGljaFxmMVxkYmNoXGY wGIbkS4ngUiJuVyLiGs auVJA4fT== Diagnosis (test code = 34) u1uwaRBzWRVicKG7AJY hOYXwp9yau1WtbDTqpO WpOFwbkCGhxvVtdo32g WR9yF86GS6fSLUfWyU1 DQClzmS7Rmv7EURiCKZ igURdX663u0wrq5ccjv RfrCG6fXggUHVnuqbxK hV8SDswTHMlzdjeKLk4 UTepHBIebYY5GMBxnSD eZ5HuPLYcDW1vlff3ZS X4ORktHLBmMcN3IEYah EUzYIUarTfzRHitf988 HIE5WrJhQESxotTbxQl acI0aAyUrGJZUkM2hyJ Tvi4RuDGGqYAD9YYMgu HPvuATqeYYismD3dXrj jO5bE9GgS2CmQVUlGYD vcmUgbmVlZGxlIGJpb3 BzeTpccGFyXHBhclxsa GqsOZcgyZ73JcNjHGmD RlVTRSBMQVJHRSBCLUN FTEwgTFlNUEhPTUEsIE 7IFAYCYErTHkrKT1AhW 5SJQ2kCRCBTBPJBWVTF TW3LXGYOTJ8RMDZuUo5 AAZdXQXzSK3HwICyWVr 3AFQAUPKwCTUEzB83oq WVudClccGFyXHBhcmRc cGFyfQ== Comment (test code = 9835) y5kjcUWjEVIuaOT7NIL qPYEgn5nis7YpaVBceL PcQPathELxnfIrvs18b WM1kL37EE5rFTXiDfQ0 ORKsecQ3Vyc0TTMpBIK icDBsD389l8cpg2pctn IimFG3XXTxCCH7BLqbJ KRjZXFbFja5RSA8D8vp ZWQwXGdyZWVuMFxibHV lMDtccmVkMFxncmVlbj MnJbz5OQA4MHr5DCOva GVydzEyMjQwXHBhcGVy fNM2SLZwBG3ncohiLDe iWRzxGVNdbiQ4EGIkqF HvH8TzPWCtZO6vmgqrE RD0PYuvJXSoFLF9HxCu PZNtw7Etdzz3KuWhvVB yZFxwbGFpblxmczIwIF BlciBjbGluaWNhbCBub 3RlcywgdGhlIHBhdGll dtEhgJHiRCT7Rx38ANF aTN0iQBPjTL4iw6i2qN 98eQpwApIbqPFlk2Yhs VhlzG3sfGPvYiBoLAkw G53xnhA0ZFJ2iA3vrFT fr0SolAXfQBbryVefEJ Mnt07fdoIwRTYrLBDeC MKlDEErpP6uOWJRCHOx sbNjuT0dV0tbUeZqLP1 gemK4mcF3ZDDpvPAonT V3sZAjzzQxoCUowvBbn BJqTJZdIGugiNlzsF32 e8t2CC2knaMkl1NntTb lIHNwbGVlbiBhbmQgYn Hvj1jfwnX1mp5qTRJez J5hDYSmSYc7lKIcSKRb tr6kBOYviB8rmETlHVO snvxfYkXyCQulgA2ua3 qrObMjQQN5qD1snsVjj W75BL7dXAJaVE7uwLQa BAEqKlXcH96hydNnDU1 nAUv1pQAoNR8jYTIsp3 p7vONsogWqqBFiT0L7w qYzKURbLrJhES8opsDc YnkgYSBkaWZmdXNlIG5 lf6RoAEZ4eHWrhYxbzL mzqDYdoQ6wmWd7ldW9A C7fWFdxNRn1mHMsg46k IGNlbGxzIGFyZSBsYXJ kVFC9mJVoIYmvqvApnI xhciBudWNsZWFyIGNvb wCokLUyQPN2EIKsM7Lg JUPeK8sbw76ydNfrLUK 5wSAvWMLeQFP0GG09DW dtwVEuf0AlHIP7bDPwq X4pjJrtuG0dvUQ6zNDd JQTiiigfFOGoxj3xhI6 ajlUoJ6UibYZqvLZuaP UhYG5agNqyo3RbOEUxv ZZiU2EoK2HriRCzb4kj udMroWy0jXPrEIHhkLQ epUSnmVLqAW7ocNbfZJ 1dQI2oIZTzATMsBAKap 4ZneHUou1MsQ2j9c7Rx YXNtLiAgVGhlcmUgYXJ nJO49fRWfh3XyTYZwl4 Y3z7GiGdFgv6LySZAeA V6xFKDgZIX5ZOUxIBPn mNMclGpnNNHbM4ZgDVU hRIPpCFKgFXycJZ2mAZ NvbmZsdWVudCBuZWNyb 2Aibf2uYSPinjgsFXLg BS7qoY8spFlybB8qxVM taWNhbCBzdGFpbnMgb2 9lNsblB1hiVOWvu3hws cS3oID2CYGaMAJvKL0p bGFzdGljIGNlbGxzIGF qCEXmy0BbtVl3TRCue7 LhL9KaPXbqUyHBHYBsC HKXDS11UGVZTI6kQ3qV RjQsIEFORCBNWUMgKH4 3DIGqJqUfB9PswITlcx FaIULbYJdfGXJlV8Lwq GImBWIqQUSld1p6gRGo IGZvciBDRDMuICBDRDI oPXvbxJTkw3J5TCpoMV xoU8ywkTojmRIenVCnq Wrbg9JftLRwrFAhvWSn ASXzUJDldXKiGH2tsuq 5hRCpM5KieJHlPPBjl4 5gv1FaBHYWpXUgK1wgB jcgcHJvbGlmZXJhdGlv biBpbmRleCBpcyBhcHB sa9bjxLJ0UYk5EEdzAV VuKbSnGB4ovLYlaCyfU GNlbGxzLiBDRDEwIGJ5 QPmazUWqj1eus5PsA5q jqJvmvZL2OWqlOAXtet RpbmcuXHBhclxwYXIgR dmrgpWboEZmmFO4qzfx RD5rhVqkxGWweCLkMw2 qsQEwFE1wXEUblzY1ik GuhzKwh5HoR0jaEX0bj 2ksa9BpKB8jPWBajaMg ywCqNv6bDPizXKPwxVP iFTLdk15vNBMbt3x4tR ZlIGZvciBDRDEwIGFuZ NHrq01zcCjjqVRsy6Os fCZnjBhabEDfX0trzP6 bVYDUpOFip8Usf7ThKR Ext4BgRRVewTTxysAzp 1M5FTRhvjVlNLCbqHra ylErXPVlYJ0zfKicfGR aIGB8HSxeps6qvHHrIF StwypbFgTnQWdfAL04D FPefOqvFhulJWjtG4Fx EHLgYYGxWArsq5N7oIK eWg6bQAZiC9XvlRQkrG 1xrG7rMKKdl11ab3NrU CBvZiBsYXJnZSBjZWxs ckfoL36ha2pbiAImuIB 3uOZuXDUaUwG5l1WhcO PfJ9XoNc1hOXahPXs4p MYej19aBlLEiMRowC2k iE2ljAdyam72dCZqYoP exF0qoI1bypShkGFun2 Y7SCDcI8OymYcrWOstV 8LbvKCrCVEkA3PzgS8z rEgkPHwnwIVxi0GwFU1 kmFjoYNleBWMdp2BvhD 4uNKRlSMQoGOQTFQ4zF FAoS86laMXntQJzt9lx aWVsZHtcKlxmbGRpbnN 0IEhZUEVSTElOSyBodH GsznixL6P2Uw9tHF7cI 6EiCr4qmE9lzEqjH276 MkO4CFQ1CHf2F789KBR eFDWdxLOczYr3rCrpCp ToKhdhy0WhuVXqSoWxU TI5WlEtRznnAWbfSoSs MCB1fVlpHOexNEOcmEJ dZXDKN4dzn7I2WFajrp Qxt7FfZOyzAFaOIHutN VDavFMtwwT4gI8flfZy PLFuQHXzVB2nlaBzqVA eqUGbDOC4aLNlJOAeMw ehuUL4MVW7nZ9yTNEhg iInpQMJC2soNSlcXPRm bmQgXGkgQkNMNlxpMCA gcmVhcnJhbmdlbWVudH TsHNAsEYHlOZJqgI1hb GVkIHVuZGVyIGRpZmZl uuNtaNNmm6KalkahRV5 gICEpVC2roT9ehkFmc5 H6SX4ttVOjc0rhn1saU VNef0PwlB2eZOHaBHXj u0RqxRZdVUZvfvyoWzL ccGFyfQ== Gross Description (test n5omdDQbAZHfrSOGKBt code = [id number]) wMVxhbnNpXHNwbHRwZ3 JfcskaAUmqTV3nBB7jd BznbAZtiWJhLZ6UZJDx ZmYxXHBhcGVydzEyMjQ eOCIzbCOdxJS4ADStDI 1hcmdsMTgwMFxtYXJnc fC8IAAddHNbN4FeBWCr UV6qhbyvJYR9UOdjmF1 uwcQXAhhfVj2faQPuiD tcZjFcZmNoYXJzZXQwX GXqbUimKRThOFs6pZ2Y CgzoQ34cv1O3Wjf4GOV jZAJkE4LoPA2jDSFrpJ ScQ62CMhfcVEY6TIVKT wehUFTaFD1Kt1vhYZNu zVRqPXM4FVsusTSjZTC qPRRpXYz8AEMbRPawzY KpEF8cvOobIidpfVfjw 2VjdCBcXGlkIDUxMDAy LZeoVEJeCB5FNqJzQLM yERY7FSXwEDy1GLp7QI 1VDlBlGUOiLNF7KoW9J DPbOYk9WIopNH4FVKUp RTnqAQa6KZTxXESsVlb bCKm2QBBsNMbaVZYfiX FsIFxcZnMgMTAgXFxmY bSdVBSxPHmnfyP6YCAr YWluXGJcZnMyMCBBOlx qIZIwMDoqcOzndZ2lWS GeL47vy3UZj5MwOE8SL Qy6qzCkbargwX9mDTQx ycClKXkcvJDrQ5nuAlr jZjFcZnMyMCBSZXRyb3 Ivtzf2a87wsX4aNOrrF tTuVPziAwIcS0WrBZXL lLt6vYAuFVYdm2A5HLM 8sSh3UU56PQ4zyQ4yhE AmUZOau9uaPQBsi2O5H FWej7LkxmQmSM8eyQ7m SDCgm22zSN3mKMMfCHI vIDEuNyBjbSBpbiBsZW 1nkIuoYT9wNEIeADToj SBpbiBkaWFtZXRlciwg NH09hERpqHomz3SmgMu 0dGVkIGluIEExLiAgXH Frx5TgE1R1XYQdFNuxs 1zjIBXoMUtng3XkTFpE IIEPLX9SYW7dvUM5JXr TH4OBK2xPcVIpXRO2eY X2OYOOLihxcED6pJD5l L63IDIjTQXubYDkRCnq Q539QTM6NJBoZWfps5v sJBWnEZbsh1ZlHNnPJS OWEH2XUP6tgSO1OWyUM 0VORHwyMTAxNnwxfFVT CFQ8SIiatSaffQo1m9a xvMTes0l0EDbpTUP4qW xwbGFpblxsdHJjaFxmc tHuAS9RXKNjyOZUHAR8 HK0zBXp7FUbmTOXzG9B nL5OgauJmdEUcWXEpwc Ene1gnMWO6LKTbyLNym RZlOeAeNcjeUJV3CLZl CHooBW7MSOQgFIR5COl pzV90fWZrSS2QPRFfYX ksSOOvKWPehmL5SHKsz ACcMKY0OP3dwOchuLRe dnhobnW7EJ6AfG== Disclaimer (test code = u7jvuBVlFQKbvXG6YNE 9856) zWKIhc0pta1ErcTKuuR NvBLdjwKFyzhPfmm20k DH2dP88GE0oVGQuSqC7 VCYbozN7Wjd5YXApXRU ttXZuF349f6thg8gzyn AsqUV9YNAqWJCmJ1UqB J9bMXZagKUjK28lmFSo HQO9RRItVODppUJaMQX uFYA5PBFscWGiO5byRS WcBM5xjdroOHmvTGrvP TEuwCT5EFEsqBZkD3Te EIDaRWlwRQRctas5MuU wEv9pyCGrnDivVWzhZ9 oygC5iEsU1YHekN7zrj L1nCRz7XXseQCUpaNO7 otM2RLYocCSpK5IuwA3 kPHHcNU3rfan0w6fnVM S2UTzoFPXtHsR7lrV5P DBccGFyZFxwbGFpblxm ecR5PORtJANbA82zVER 5CXY1peMsLEMvihCmJK QuVXSlBS5baRHjFNOjX YDvAR8rZPM6FAnhaCLe YTLgHNUiDSYti0LyWN5 jUDJrlKJxMBG1DPWmp6 TvR6WnEUE6NJBrvA2cM CBieSBVVCBNRCBBbmRl pzPwelTMSACul9apU2c nCR4bIOhyEg4yTPAbmv kgTWVkaWNpbmUuIFRoZ WQyEOAwo3TdBYyvagAp ae36RDHdTA5ib7UoW5d imYIreJw4CTKhZGCoZK Ctg2UnBVYuwq61YXVxZ hrubOlqZTJqNi2fGl1l XUAfjlFfZYX5KnWOQG7 cjnuawUBktSipuh1rPR YgYXBwbGljYWJsZSwgY 39pnDFwnSBal3DnFSTx AKTwEHpfSJOlqwQye5v jt1FfGYMepKGedAHtMD EzDKKlYSL9sTKyuOqwP lxwYXIgTWVkaWNhbCBu JGHvd4XufKldfpLksKc zrGCkjAdzmfSrf3JltF fkPXqjrNXws4hjr2MhA 5uklSclURash2BrfY6y GWIyGKCwh2DzZWMxCHU lWXVafU6iHIEwoCCkt5 0mtD4yoAhpATVia2otZ 4k3p41eiWYeAgRzdK25 wu2qnFAsk3Y1sSncETB 9dSLwVJAbLk5uCRKqSJ WnELD8IACtNJacr2Fdd aDrc7HbaSMeLQSuzyNe yoUzs4ekj8opIbg+IFR cNAVzmP72PJH1pN7eNZ UnrDUaf3N8BMwaoqYtf xYswb43PLTyAMWadBow jkDmkoYoWI45AHQgwwY lw6KpVSrwOXLvLZIkQO I0eFEnoyMeLIW6tMLgo mcgZXZhbHVhdGlvbiBp ekH6oKeoIQEhFHXkmVM uLlxwYXJ9 [facility] Interpret[facility] 2021-09-22 21:43:34 Test Item Value Reference Range Interpretation Comments Addendum 1 (test code = n9rcrSPzHMIvjXX3ATN 37) sIIUta7xgj7OnyIPxvY TcSAkxhPFumlFgwo29c GX9mG62EN9dNHXmVpS2 XKJlkvZ6Xhi3YQPnOAI upHXcD247q0wjs1qser PuhVD7pKyvWWEekaquD nC6EKbyLXAimiaoQWm4 ZUnuAXIqmKQ3IFTlbRY tV7KcXRFhKW6rqrk7OA X5IKzjWRPeMwV1AYRib VPqTCNcaDmfCQvco397 SVR9XqIiCUHmzxNaePg iuH4xMsDyNALKBOAoYD etvJEdm2oab2NgT4kkl CbzdWD6NjQCkFPhBKGh RR49VRJxBU0xCJf7cDE da55vBJNczDyqKEXyMV Mjf7MjdUw1JXQeFcWgg sFsyX4pzP5sOBUvzUTf nT30JU8ykJO1MRbsWFS ccGFyIFRoaXMgZmluZG tlPxCoe20uvEVwahU0r GUgcmVuZGVyZWQgZGlh I51co1ewXzPLJQJssHD cIV6qDUFmTBLnuQSavr miOTKHYDPcDUQxiXr2a RR1FPF7VHKvczIyapFn dWVzdGluZyBGSVNIICB fp0EgLSikQWLCFJUjrQ BozIGxifIbk8KqwQfji kbbjE3uVwSjtaItf2X4 ZHLoiW4nVYBpYFypFdD kNV17YQEzvwWvHahcTL JccGFyIERyLiBTaGlta G7bFMFgNZhddzQuOEUv ECxvDHI8qMobYEKkg4O rJD2sZOJzkcD0nbNkf9 h9eII2qAIoNYvtG78pq 4iqUolyKYN5 Submitted Clinical History y1bjoWQhCCUkh3alFBU (test code = 42642) mbGFuZzEwMzNcZnRuYm pcdWMxIHtccnRmMVxzc 0MaJ4PeYjKgGSnytfVe XGRlZmxhbmcxMDMzXGZ 0bmJqXHVjMVxkZWZmMH yyQn9mdPOwrQxoLwQcG PQkm2rnypOXmzxrwWv1 o6wwVUSrHzU6jXVlYZo qG7aubeCwkHAlFQMjOH r7kY01KVZplX3ggIUsD FbvyuMpSsN4TSfrYTSi WfI5RDGvxJQzZHCwQ5l yZWQwXGdyZWVuMFxibH FkTGE0gMmlz4M8bQXnd GVldHtcZjBcZnMyMiBO p3PzXOd7vFsmX1TxRJH oBiK0eCCoAPSaQPkpEQ GkGGZfidS4yM98PUeef gW0pTLtw4Rzo44ax337 gC6xpDEoPCS4YWDfTIT kzKTgNRAwENR4CITthT OuX0ymCJSrFW4adzvmM KkzKAbgXNWlcLQ2OBLp yCKwJ1UvJGOzNMieFAP xcxp8SsBaKu8kxEYymM jiUHkmh7nwd6zayUDeD fh7LCEiJrZdRilrMUjs c5Jek6pzJBIaug9kZWC 5sPSgxCdxz3F8mTXrFA VpkLTjipBvAENtOvY9J KjdXR1nev27IPBhCTK5 oa2znTPimQekynUucQT aRMwwT7KdOCOxa716DX RjA6FcYMGvg2J4vtYwF eJtOZBfrTS2suS9ORIq OVd2jFGfxrH7dyZvcVJ fX9onaK2nYOMkFI3czj oto3ngISeiRDknRIOkq KT3ynE0VJXtwCIhL8Dn gI8uAKNwRTvvXZMtkuy 3YtSgEf7nsDEmaZusIZ xzYmtwYWdlXHBnbmNvb nRccGduZGVjXHBsYWlu XHBsYWluXGYwXGZzMjR wkFowcZdiyP6lFbFqDa ScBOdmOG7vMMCnL2axk UVnWIUmMMGzU9asPhPj fG8urXrqGSrlxrWcQGG hbmNlciBvZiBpbnRyYS 8fYxOmaYbyAWsys8LeP O8xJRjCTdYxSP9azEZd IERpdmVydGljdWxpdGl zIFtLNTcuOTJdXHBhci BGZXZlciBbUjUwLjldX NVasrLKSBS2CEjwj5Mj COX2EUJmIV04QIKnMS9 rzE4vsJZfRJUqGOkKMS kuMDRdXHBsYWluXGYxX GZzMjJcbGFuZzEwMzNc aGljaFxmMVxkYmNoXGY iNAcyD3czSeRoHvArKn gzXYW5cT== Diagnosis (test code = 34) k1hfwWBuWJXmpNB4ULP lCBCwu3erv5FvbTYrtI ToGDhcbOLffhIejy10n MH1zW89EH5lRIEyMzD3 AETsmuJ6Aye5GYAiXTF toLPxC023c6amo2lpsw LecLC2aLakZWZlolmpV xE2VOoaMALfeudjKIx5 IYdeVQEzaMB8BMYcmCI gU9OwWXUkRG9vpza1WG Y4NDwkGVHnVmD3WBCwf ZMwZXUkoWvvFEqho414 WYX8ZkZxVWKzscQrvZp bgU4lHkTrGNVFfQ2axL Ysq6OyCZTpOXK5HHRxh FRhzXNziVTbxmV2yIod gI9qR5OvU7SjNITcKXL vcmUgbmVlZGxlIGJpb3 BzeTpccGFyXHBhclxsa VtlTYqqlZ93XyVqRJgY RlVTRSBMQVJHRSBCLUN FTEwgTFlNUEhPTUEsIE 7YTBTZIVoSGheXO2KpN 7HPD1bYIBRJROVJEHTZ OK0PFDVEHT4FZDZjLp6 AGRjSYBjDM9CvHVrMBk 0KQQNPMVzIPQQoJ48qq WVudClccGFyXHBhcmRc cGFyfQ== Comment (test code = 9835) z6nrcBOgJLDpfKV5QLH kVGTvi4tci7GekMYdyI PyJZrkaGOqrsDpoa97c WK6qX69PJ9fOADwAmP4 WMGhbeL8Gxz2ZPHmLZU pwRKkG023o4eqd0bpix LpbBP3IDJuZEH4ONhcV TIyDDMgKvu9OET6F6ua ZWQwXGdyZWVuMFxibHV lMDtccmVkMFxncmVlbj NkOxd3UFL5RXd6AYOun GVydzEyMjQwXHBhcGVy vUA8HRYlII8ztetiAPf wWVaeGJTnleL1WVJmkV WgL5FzHCLzIL3ovysyV TI5PAiqZBOsRLA2EcXi DYRar8Ykqlm7ChTybJP yZFxwbGFpblxmczIwIF BlciBjbGluaWNhbCBub 3RlcywgdGhlIHBhdGll pkEiqJHyYKR3Tm26JEB iQX9uRMMqFH3qx1c7dA 86wHdwIoIjoDBbf9Djn GylwX5skYEfBqCpYCuw G00vqyV2EFC6kX0uiRD nx7XahBDuEOadiQvnVL Jzn70bnxLmVYVtXZRmS OGhVHNxaZ2hRWYMRVXs wxLiiC0bQ1qmWpVqSC6 vcpI7lfR7AULwvNVmyA B7tLRhwnWvbAYqhtWgj YCuFEDuNZuesXjvkH18 w5m0TK1obzYsh6DheGi lIHNwbGVlbiBhbmQgYn Ezs2jcfdQ9aq7iLGJjd H9yLAFeSRz5fLYrNVEd pr1oKCDbjH6ysNTxKBR hoxclYmEmXYvavP1zo9 pfLvQkZUO6kN6nsoTqm R04SL3jOUKuIG5flHGz GQEpWdIqC50qxbBlBV8 tXQt5gVIwJB5xSWBnd8 b2jOEpymCerHQdZ7Y0l tXmBRDaHtVfVB8zboGk YnkgYSBkaWZmdXNlIG5 pz6DoFFU5oSDrcDqavR dopRRjdP1owTc2njT6J G5mFWlgDNa2yXVfi37v IGNlbGxzIGFyZSBsYXJ zFVL2yNPtURsevfEkvG xhciBudWNsZWFyIGNvb qRhmPSpRUG1QZAbM3Qm QBKvD8zgn00bpRlnUYX 4yZOjYHZzGUZ8TI16JZ xrrDKwx8LdLJL2mKLcx Z7phCginT9amRE1zQHg NZNhzpkwJBAthr6ufC7 bqzRmC9AkmUBigZNqaO LyHN4rsXayu4FxTEQoh EOjM9PyO6SfgFRle4tt tfQyuPm5gPDxDDAolOI wcKZtkWMxRV4krAfuZE 3nII0rZXWrSDAeHOApe 5IykRBnz3DbR8r5p3An YXNtLiAgVGhlcmUgYXJ vWC13aTRht9VbRIKth2 K0d3IzQmRnu5HrBIDqJ A5lLBHxKTQ9ZZZuQCDo mQNhnVteHPGqR7FaEPA kSLMuKNAcLOlkEQ0tTD NvbmZsdWVudCBuZWNyb 8Lexr0aSHEduiptOYDx RG8zwF3ksWwwcU0ncIJ taWNhbCBzdGFpbnMgb2 7cOewtX2qhVDLwc9efp hM6uHF5YXFhJVWeOP6k bGFzdGljIGNlbGxzIGF sJTJwd1IjoUp3JYQvx3 PwW9UuRMrsTxPDHUOnX JFVBB08SWDZCK4oX0rT RjQsIEFORCBNWUMgKH4 5UXOqZxHlK1VukTBpey XdSQNdAHhoCBRlC1Aoy RSaFRVqDIFxe6i3tNLf IGZvciBDRDMuICBDRDI qEGcooJQvw2V6XFjhUE rqA7aqgMefaCYwbHCsz Rovo2PloSOcyTVnqGTk LJGeFDGooKFlLZ6degu 6yEOpQ9BsyQRnKNRso2 4ul1BvRVNDkKIvL2ryW jcgcHJvbGlmZXJhdGlv biBpbmRleCBpcyBhcHB ji3fbtEW3DCp1JBngAO OsAyKbSF2iqOBbwWsdR GNlbGxzLiBDRDEwIGJ5 JRazyMYdb8tnn6YgF2u ouFjccSO5URdiEZElnd RpbmcuXHBhclxwYXIgR ftgkoDysUXnsFG9egya HI9aoGsmdIEzxUDaDo6 oaNQrMQ7tDSHqttV6mc FtwgTfr0PhX6rfDN7xz 0fzg6SlZK0yKLMvikCa bnYlZw9nKSpfHTIbsOQ jPOEes76hMRVsw8q3jN ZlIGZvciBDRDEwIGFuZ KRjs78crSnltKZrz2Ir zALyfNzjlOOdX5dooQ7 qCPBWfUMev4Bja3QdHW Mjv0EiQFGsyZWwogEua 8S8KYBtvnCtSYUjqTzb hwVyTOGvIP4avIcouHV aXKT0DEsgvh7fuYLgVG DnxeusVdLpGYudVY33I KUkkKclDuvcLQynX6Th MRFoCQPcBHwjr3Z9mUQ fNj1qXGVqQ1LwvOJmmO 3sdP7bIWFda21cc0VhJ CBvZiBsYXJnZSBjZWxs zwdcD56kq4mfbBCwvAS 7qKNhFHUkYxP5j0ZhiQ LeR4ZaQl6dULluBZn1b LZwg47mTiZWkYBwiV1l yG9aeSpzcp15tRQrZuJ qrA6fvV0sinRapUGzk1 S8KTOtG4GacIvpFEfdV 6JgdHHwXUBtF7NenM0u dMwePQmreTEap4XjJW0 gtMqwKHxkBFWfs8ZpzQ 0cUYSeRRNbCEOUJV9bC KElS28vmAFomATam6qt aWVsZHtcKlxmbGRpbnN 0IEhZUEVSTElOSyBodH NzofqcR7R0Ll9bHN9cS 2XdKu8rxV0syHfqH231 DwN9NLV5JCy4I061FKH wEEWqqSRykYr4kWaaVm BkZzooi1YldJFsLfQuF AN6WnXnGjazKTrrEjGl QEZ5cOjfQZezHICdpLD xFWZCX6iso3J1JYfdjp Bpe5OcSQzsNItEWWemA WTklAKnewA1fT1mhpLf JFPjQFMxMY7otoYdqWZ nqRPkOPY3hTIrQLEnVy vggVO7RQA1xK4yTTDuc jAsdDIIW2ynVOciNZNj bmQgXGkgQkNMNlxpMCA gcmVhcnJhbmdlbWVudH FjJDOpQDBaSVHbaN1vr GVkIHVuZGVyIGRpZmZl deXnnWXvz0OqqvubVR0 hOABzWP5gcT0zppIum0 E7BV1fkXVrk9evk5zxI ZAqh4MqmV5lGVJyXDUn v3GejEPhPSIpazyjAfZ ccGFyfQ== Gross Description (test k5ykqADjRXQupMNHKWo code = [id number]) wMVxhbnNpXHNwbHRwZ3 KcbyfdPNgqOG7dUA1yr HtqvYLzkMObWH6LQUMc ZmYxXHBhcGVydzEyMjQ kANLpzBUxaXY4YZJwCI 1hcmdsMTgwMFxtYXJnc qA8EEMdiIBnJ2KnTGFp HJ1akhpfCCC2XLkojK7 pavVNCvbwTr6gtDDjtE tcZjFcZmNoYXJzZXQwX ICbmFqoPQLrVSg9fM6J RtwyA53ij6F4Uas2HYX oSEAaC5NxKW7bLURxfD TqZ08LMupwLXU7NCSQU zflQJPmUI1Og2anDXWv gMTeBGD7TRjxuFUoUIY pQYVcVHd0MXAtXFzphW LtEJ9owQhiEnkmhNozf 2VjdCBcXGlkIDUxMDAy VPcxCQKiSL8IMwXrOMM kSOK6JLMkPMi1MPo2GY 8RXhXwUKXxKFA1VeO5S ZEsWKb6RJxtVH8IIBZc KIyxSJt9LAQbKBPaGdt dPQe4QCTbEZitBYYrjB FsIFxcZnMgMTAgXFxmY dKfMMBsSXukggL2DUCp YWluXGJcZnMyMCBBOlx cCKTaLSdevIdigY7uKQ BgL13od6NCa2MlDI8DL Im7mhQzasgdxS3rJPAa jnSgNSuflIMoJ5vrQzo jZjFcZnMyMCBSZXRyb3 Qcdeq2o08owS2jZRikK iTzQFvkExLqB6YwHVQF vSt0aJAsXFOzk9A8MWJ 6xZo0EW19EF0nrD4ccU RkEDBjr9owWVBvf7J7L HSyx2NtqfIqXP0tpM1q WXThv60xFZ5eUHXkQBL vIDEuNyBjbSBpbiBsZW 2xzTkpYO4hETFlSZCao SBpbiBkaWFtZXRlciwg DS58fPMgzJrle8QqnAk 0dGVkIGluIEExLiAgXH Ebk5CqX4T0YPDnFTntp 1woBLEcRDjiy2QgYIjF LOBZKJ6ZKK2mfUK0VWv DA1BGR4bUyBCwAME5zM S3JSTCYwxfbDX9uNU4i Z50OUKuBGRlyJYgQJuv T210JCB0GZUaTEqwx6s sSAOwNGqlu0YsDRlWZW ZDKD6JJR2xiME6KHdVT 0VORHwyMTAxNnwxfFVT CTU9WStfaIyioOo7t0c ulCNzp9i3YCesHFD6jK xwbGFpblxsdHJjaFxmc xOcXG6HJLCzoGIGPKW0 TX9nVHv0PVmnKESeR2Y oS6RgejSesSMbDELmdc Nhu0tsFDJ5YXLwdUHem IIhQdPhPkwqPWG1UFZs LXlnQI6UQUSqNLR8TZr jnS59mXLvDZ7RORAnSN guSGOaUUDxzqN3HPIle PHgTUZ1GS6lrEgnoGAf faaierI7UB5ElJ== Disclaimer (test code = u0xfbQIlLMAceIF4LJP 9875) zGZSmr7fgz9YycXOwoU AxSTundHFcciYgjx38u MB1eB76YF6eVMGsCqQ7 MUGvbiH0Gnf3JUAdNBS epTRnN165u2ocs7ntjp CzvBS4HYGaVQEaY0JbL S5mKXDebNYnB31bdYLm FAM3FTQsHFVleMXnHVM oBXT8SFOvfPYwS4jyPN TwTK4ehyvsPYfxVGiuL JVxkCP1DMAgaUZeJ9Hk OSEmWCknNBFnoih3CnQ eWl4izJRlvHguKWraD0 niaN3iWoN0XYmkZ7wjy E6gZCd2TTyqMUPgfNY1 xzS3NZEjnKLkZ7CsdJ5 lGWEqAH2svzz7m6owJJ E2GAqgNRUaWpC0euD8Z DBccGFyZFxwbGFpblxm maS1PQHeYLMxS87fESM 9FFR6ibNoRAZhueFlPH NuAERcKO6xsAIfAWEoI YFtGE4jDAU1CLjbaKAc DFZuXKXwZLZbx8ZzFP0 cVLHbvWTjEKI2NYDwr0 EdL4EuJZY8FJTwfT3hW CBieSBVVCBNRCBBbmRl rjPbjwHGRHJrz3nbD3d jER4tJYytHl4oULXsjh kgTWVkaWNpbmUuIFRoZ NXxUERap9BoLTwycvYe na79PPDdRJ6eq7BaT5n tsMYraYf9NTLrBDQsVC Ban6KxHGWloj39IMOcS wuojWuaSAUwIu9yOl1w KBIcnuRnGOW1IwFXAO9 bndlgdZUvbPdjer6oXW YgYXBwbGljYWJsZSwgY 31rbCHjvYPcn9XeSBXf KRQhXDxpATRwvrJfn2r dg9VySBJbvPOnuHYySY TpERIqSAZ7zSSjzZpaO lxwYXIgTWVkaWNhbCBu UJNkz9RklOckilSxyWk zfJCpnExnbqWkp0WvjT biSUlymTTko5tdc5RhC 7zfaJqbJLobf2KmvI9z CNXoNXFia7CjQZKkBKB mHCDrgO4iJRSdlWDwy8 3ioC2snUlaYTDxw5yeW 9m8y20lqHUrLdUhhI05 wd9wtBGzr4K0uPfvQDH 2qEQgVLOmIu0qEGPpJM RxZTK8KMDnWRlkd7Alc lTdh1YxsJYvMLFcvlPh iqMjl5xij7pxQua+IFR gKDMkuE91JRH9jF7bJN JvjUQhd9X8YFaizdPar wMkhe63ICAcRUOwfHdr qvAcnbMhFQ80GGOmloM sy5YpHKeoBBLtBYFuCZ K8cLKaiuHnBJL2qXZpr mcgZXZhbHVhdGlvbiBp msG5jNbyFDAtUXElyRL uLlxwYXJ9 [facility]&Ab Path Interp 2021-09-22 01:16:07 Test Item Value Reference Range Interpretation Comments HIV 1/2 Ag&Ab Negative for Interp (test HIV-1 antigen and code = 9394) HIV-1/HIV-2 ____FLEUR MIN A DAMARIS,MD - [place] [id number] by: ELZA RENTERIA MD - evidence of HIV [id number] d Date/Time: infection. If 09.21.2021 20: 16 PM CDT acute HIV Transcribed Gonzalez e/Time: infection is 09.21.2021 20:1 6 PM suspected, CDTElectronical ly Signed consider testing By: ELZA RENTERIA MD - for HIV-1 RNA. [id number] on 08.27 20:16 PM [facility]Ab Path Interp 2021-09-22 01:16:07 Test Item Value Reference Range Interpretation Comments HIV 1/2 Ag&Ab Negative for Interp (test HIV-1 antigen and code = 9394) HIV-1/HIV-2 ____ELZA OCAMPO MD - [place]. [place] [id number] by: ELZA RENTERIA MD - evidence of HIV [id number] d Date/Time: infection. If 09.21.2021 20: 16 PM CDT acute HIV Transcribed Gonzalez e/Time: infection is 09.21.2021 20:1 6 PM suspected, CDTElectronical ly Signed consider testing By: ELZA RENTERIA MD - for HIV-1 RNA. [id number] on 08.27 20:16 PM [facility] HIV 1/2 Ag&Ab Path Interp 2021-09-22 01:16:07 Test Item Value Reference Range Interpretation Comments HIV 1/2 Ag&Ab Negative for Interp (test HIV-1 antigen and code = 9394) HIV-1/HIV-2 ____ELZA OCAMPO MD - [place] [id number] by: ELZA RENTERIA MD - evidence of HIV [id number] d Date/Time: infection. If 09.21.2021 20: 16 PM CDT acute HIV Transcribed Gonzalez e/Time: infection is 09.21.2021 20:1 6 PM suspected, CDTElectronical ly Signed consider testing By: ELZA RENTERIA MD - for HIV-1 RNA. 71211 on 08.27 20:16 PM [facility] Ag&Ab Path Interp 2021-09-22 01:16:07 Test Item Value Reference Range Interpretation Comments HIV 1/2 Ag&Ab Negative for Interp (test HIV-1 antigen and code = 9394) HIV-1/HIV-2 ____ELZA OCAMPO MD - [place]. [place] [id number] by: ELZA RENTERIA MD - evidence of HIV [id number] d Date/Time: infection. If 09.21.2021 20: 16 PM CDT acute HIV Transcribed Gonzalez e/Time: infection is 09.21.2021 20:1 6 PM suspected, CDTElectronical ly Signed consider testing By: ELZA RENTERIA MD - for HIV-1 RNA. [id number] on 08.27 20:16 PM [facility] HIV 1/2 Ag&Ab Path Interp 2021-09-22 01:16:07 Test Item Value Reference Range Interpretation Comments HIV 1/2 Ag&Ab Negative for Interp (test HIV-1 antigen and code = 9394) HIV-1/HIV-2 ____ELZA OCAMPO MD - [place]. [place] [id number] by: ELZA RENTERIA MD - evidence of HIV [id number] d Date/Time: infection. If 09.21.2021 20: 16 PM CDT acute HIV Transcribed Gonzalez e/Time: infection is 09.21.2021 20:1 6 PM suspected, CDTElectronical ly Signed consider testing By: ELZA RENTERIA MD - for HIV-1 RNA. 08548 on 08.27 20:[address] [facility]Ab Path Interp 2021-09-22 01:16:07 Test Item Value Reference Range Interpretation Comments HIV 1/2 Ag&Ab Negative for Interp (test HIV-1 antigen and code = 9394) HIV-1/HIV-2 ____ELZA OCAMPO MD - [place]. No [id number] by: ELZA RENTERIA MD - evidence of HIV [id number] d Date/Time: infection. If 09.21.2021 20: 16 PM CDT acute HIV Transcribed Gonzalez e/Time: infection is 09.21.2021 20:1 6 PM suspected, CDTElectronical ly Signed consider testing By: ELZA RENTERIA MD - for HIV-1 RNA. 13861 on 08.27 20:16 PM [facility] 1/2 Ag&Ab Path Interp 2021-09-22 01:16:07 Test Item Value Reference Range Interpretation Comments HIV 1/2 Ag&Ab Negative for Interp (test HIV-1 antigen and code = 9394) HIV-1/HIV-2 ____ELZA OCAMPO MD - [place]. No [id number] by: ELZA RENTERIA MD - evidence of HIV [id number] d Date/Time: infection. If 09.21.2021 20: 16 PM CDT acute HIV Transcribed Gonzalez e/Time: infection is 09.21.2021 20:1 6 PM suspected, CDTElectronical ly Signed consider testing By: ELZA RENTERIA MD - for HIV-1 RNA. 54043 on 08.27 20:[address] [facility] Ag&Ab Path Interp 2021-09-22 01:16:07 Test Item Value Reference Range Interpretation Comments HIV 1/2 Ag&Ab Negative for Interp (test HIV-1 antigen and code = 9394) HIV-1/HIV-2 ____ELZA OCAMPO MD - antibodies. No [id number] by: ELZA RENTERIA MD - evidence of HIV 61275Lztbpto d Date/Time: infection. If 09.21.2021 20: 16 PM CDT acute HIV Transcribed Gonzalez e/Time: infection is 09.21.2021 20:1 6 PM suspected, CDTElectronical ly Signed consider testing By: ELZA RENTERIA MD - for HIV-1 RNA. [id number] on 08.27 20:[address] [facility] Antigen and Antibodies, Fourth [id number] 00:47:01 Test Item Value Reference Range Interpretation Comments HIV 1/2 Ag & Ab, Non Reactive Non Reactive Performed a t:MD quan Gen (test code [place] [facility] = 9280) [address]2 Antigen and Antibodies, [id number] 00:47:01 Test Item Value Reference Range Interpretation Comments HIV 1/2 Ag & Ab, Non Reactive Non Reactive Performed a t:MD quan Gen (test code [place] [facility] = 9280) [place] [address] [facility] Antigen and Antibodies, Fourth [id number] 00:47:01 Test Item Value Reference Range Interpretation Comments HIV 1/2 Ag & Ab, Non Reactive Non Reactive Performed a t:MD 4th Gen (test code [place] [facility] = 9280) [place] [address] [facility] Antigen and Antibodies, Fourth [id number] 00:47:01 Test Item Value Reference Range Interpretation Comments HIV 1/2 Ag & Ab, Non Reactive Non Reactive Performed a t: 4th Gen (test code [place] [facility] = 9280) [place] [address] [facility] Antigen and Antibodies, Fourth [id number] 00:47:01 Test Item Value Reference Range Interpretation Comments HIV 1/2 Ag & Ab, Non Reactive Non Reactive Performed a t: 4th Gen (test code [place] [facility] = 9280) [address]2 Antigen and Antibodies, Fourth [id number] 00:47:01 Test Item Value Reference Range Interpretation Comments HIV 1/2 Ag & Ab, Non Reactive Non Reactive Performed a t: 4th Gen (test code [place] [facility] = 9280) [address]2 Antigen and Antibodies, Fourth [id number] 00:47:01 Test Item Value Reference Range Interpretation Comments HIV 1/2 Ag & Ab, Non Reactive Non Reactive Performed a t: 4th Gen (test code [place] [facility] = 9280) [place] [address] [facility] Antigen and Antibodies, Fourth [id number] 00:47:01 Test Item Value Reference Range Interpretation Comments HIV 1/2 Ag & Ab, Non Reactive Non Reactive Performed a t: 4th Gen (test code [place] [facility] = 9280) [place] [address] [facility] CenterCytology Image-Guided FNA [id number] 18:28:31 Test Item Value Reference Range Interpretation Comments Gross Description (test w4pimGFxELYhrPZ3OSWc code = [id number]) IJCir5pwq4JeyNIyhDBl UEauwBVfqpOqxq74dXO7 jG95GQ8mEKIqGhE0CGXf wuY8Hab9JLJeAXYfyJNy X149w0gzh7evgcSsnSS0 PBSmALNlP9YmLT6gRKFn sKZvR38rgZKrVUK1NAUr TTVfzFQuBWRqBIQ0RISr vZAhJ3knHRZqYS9nmtlg FTwyWNfmRGKxmPN4TZBp oBZbM7OdZCHbCNrrJCRh hsn7FtSyJz5soDDevTbd PNooTNChf3zsRSDczISj GBI5UCutbGWhKJEqJCPr NDv4FQZzLXqrpYFoLN1s bKjpZxezdRbov7TzyJWz XGlkIDUxMDAyIFxcZGIg E1VAKUJwPAXgBlWwWNFx LJm3YHacP1HUIEScZVM6 LNjbFmP5UeJ9LDn3BBKT Bi9lTHA9FMGgVVM8KJM0 HUO7IVXtSHOgEeJlCOCh IFxcZiBBcmlhbCBcXGZz BSZmUChaThNqXExuG29h zNlmnH0eCzsiidUhRJX6 YCCaeabtGQohGeTmO8Fc F4smTQ4aVJFhz4J0ohKe OlxwYXIgMiBEaWZmIFF1 lRy4MBSkDCRyKZW9IAjf UBLblFTis9lcQKLxSTNx jTzmYOfinl48IOC9v6hc aWVsZHtcKlxmbGRpbnN0 ZGqKTJFBQHvZJqGnQK2a XSjPL0LTANzEVjxgDGX2 JVjshXM6c3aheHAqa7u7 PDlcAXF1gRFwmWwurXx3 VTHyi7HkeTStsIXxqEJq zUL1OLErTWfgu5rmICJp WNabf3ZvYYbRVMCIYL0P MI8gbWN9F5wROOVYW4aS hSR2d6cidSBqz2h6KBmz GQY9eEEen05nyTlxEqoq oJK0UInoHxoirD2gbVOZ VGZPBayMUxkprwDwRU6M HRxIJZ7EvVR0l8nxxQCc r5r2RYtuHZK3cSrdfCVd jetjuw75SRO1JSOdPrWi H8JvVGVbqRAoVOmzNjxn pPM7KDkrMvnjtF2nmDHO UXTHReyEAeheokVkVU9X VDFBQI2TcOF9QuNehVC8 TC87WNZdXVLyrIZeLQyc L412GOWfLAnsLARcTfMo I6WhWNEkrcVMEK1NIESk weSkAIYvm6frU5o5w94v uKL6FUBqrjWuHFYoiBbt KryuB3fjnPKvIZDmmOIh HTnmHEKZrBPqPJSiwJ2p Ha0hmQBwtW03SRS2BzW4 RxWmLiUMHWB6IPPesSKu XSUeppWHxIagNgO0VDIa IGxlZnRcfnJldHJvcGVy hNOgqrQgkKDoTHZln9bt cPbbm1MiqHQgJF33ITIw pTUeGMX4II8njQrcNDAj zlIVVZILAXbXS1AjWPRT KXIUPHIaYeQQQE8pQjC5 GrJ5RK14CinxOAFUVESK QLhOHG5UVKBETXBKPN3A UtPvJ1aOMGXVWvEbEMEG ROFXMGEiZlHDHB2vQoc7 Ckrds2D7M9pNMMHRLaVb XTBCZDGEZIXjAE3GHHPD WRRCMS6IZWKWG47LZIQZ XDZNC0QWO9aUEFFak2Ch cTwbJwH8BlLlDV9sNLuQ Q9NJG1sBDWTaIIKCNICO HXAcRP9VXHuYPO0FXCVj RJZKOLMYLZKsQkHFCA1l NFnOCS9DXWPiHODKJQDS LJQnBX0CLCOZRE8ULSLO LOQHE96LDSNGBEQKK6ZK F6dNJVDUYDWFXlLGCgRK UV5GZFWOWZFYWI9DKzE5 Major Classification MALIGNANT A (test code = 9839) Diagnosis (test code = x3shxNHeOPOuqBB3SNHb 34) URFzr1sxe8OsdRMlpUSj BZynkXLmnsZfip58vTP3 lV16HW2uDMCaOiF7GHCc qkD9Kai9TQQnJYZodVJz S134g6hiv5pxneJqqDX4 FRFrQJOlS9GuBE4bETRw lXTpP38gbSKfKVU1SASv HCAsnYHiUUIzCGY2FOWb eSRxN3yzBILaLN0vveqs DGvaYGwrGDFjcQB2HPDa vKYnH9CoGLGuEUauSRNa ecd6HdVyBs0ikDPzkPyh UUsqA3nbyO0sZbB9RLpx E2lvlX4iHYb8FJytYZQc qOP2wyX3BZIhrWSgO0Lh uR6fUMDvTR4rgmd9e2fp KWQ9OBreLLDmRnK4ceU5 NDBccGFyZFxwbGFpblxm czIwXGNmMSBBLiBSZXRy v8Ornys3f67rsG0bLHfb ZnQsIGZpbmUgbmVlZGxl CELcvOtbOCXlg392BXVf aqm9QHVmkARlLXubChMa KHEXGRYGPT7UTMUzH2EL JDTXT4ESDACBEC7XGMCN N65DPUNAWP1JGWlXRTgl SHVQX1KjBc1XZTyRUCyO ULJKI77WXBriSYMqG29n bWVudClccGFyfQ== Comment (test code = j4ucmPKfVTKyaJE1NULk 9835) FCCmu0ntl2UguQWdqFZl VOicdFJmskKfpk65bBI8 wY38XD8vVVXfPkM8NNSh rlO8Eub4POYeIZJhbHEx V262r1vsz2oxebAubRW1 MANuUBTbU1YzNC7zDSEd oBAnM01yrLPwLNC1WHYd PTBkeSFcWCQgDHQ4PETh wBEcD5psRDUgEJ4djuak SJxsFHzsAQLefKG7FNWp hFIkL1TfXLWiFWqyMDIj hpd0ObZpBe0nnXLayPce MFxwYXJkXHBsYWluXGZz QjPfU5BzFCSsLVUgdoQm vD02WFoldkaqYYY0aUDh E7KmBQw3kKYin8tfXZMn yZwiMtGImR60RYP2xD1y ZXRyeSBhbmFseXNpcyAo ShFdFoHtAGS8Twp1AXGa yD43ikDwztRlJfYpzfEj aTOOYHEnpVousS6iwPfw aFnbypTlQOPhVSTqw9Ok ZHxiGZV9CP38ksspGJ3y OLP8TeOpDU8pUFh6mLLt x8M0gPZtDNZ1lFM5EUkb DZWcj8b0jXMjTBZdrrIE IJT0PZNZSDQhGECVRDCk NNazvT3bLRFkXWRUAKJz MBThpgFvdD2nu5C0pKft FLlkyZYaQPflS9l2WMIp MVaiJMO9iXnzYIVhZIwo lVi2JGEeb1KsV5I6BfWS zUGsGcwuWOqiS1Abw6Ob vA0wxOL3wZOvUMAfqvSc JVnqI37dn7mbIrUbiWLk ZRKdqpJXyUFvk3Vyk7Nk HMNfIGYlq98dnNWiUG51 IGNvcmUgbmVlZGxlIGJp x2MmaWOhOzFfTVRfEKp2 EqyhOs2pEQM6xpKjGQZt VWNmmBJmyBckhx4gfZPz QPHfbmzbEjZrP0CcmGBy zN8hvnLrQSP3bL2dCOiw KBBwsmSnjSW6iN9xpQN6 umE9tPVwIXvyG12ks1rf LiBccGFyXGNmMVxwYXJc J3SjHUNjmr0= Retained/Biomarker q1czrSMdQSLctYQ3JGAq Testing (test code = CJTri5tuu8SccZBwbFTs 9838) EPitkZGczzOtie47eTE6 xM70FA1jQKNxDtJ7QQPw jyD2Khu6VVInSWIzhHXg A745t3vgt2bvfaLxcRD4 eVzdVABjaxwuVqB4NAfk ZKGvasrxYAl6RKioROXe sCZ9MLVkcDQfV1GfHLUq TT5wgrb0OCY0UPdfKVTk CxE7SNTswVImBSZhuSbi ZJeer996MKC2GnPqTMXm jfIiaSvheF3zDuVwAJII UjogIDYgUywgIDFDQlxw XRUbvATuQSCzPWGpz14b tpqjygNEGZI7iN3iGfin NQYfcYljJQ4FRWWVYcdd ICAgNTAtMzAwICBccGFy ME3WLZRUYKL5PDOFd9Vb f0JixXGtpRQlBQFzdxWC VEzaANH7UVFcVz64YCJ3 aXRhYmxlIFxwYXIgRklT HOQNDPpzTH9nzZTfnIs8 YWJsZSBccGFyXHBhcmRc cGFyfQ== Informational Points p6vfkQTwDOAdhWUbJgHe (test code = 9836) NZJbMVJds7kdUHEtoEKq ZzEwMzNcZnRuYmpcdWMx XQJkDsMel1jjt631dPHp u7ikKOJnSxF7iZWyIWHz pRGsN203PCXrTZppq5kc j7EiPSNszIGnr8D5GHHU OEsjXMDUQUr2b2lxMtJk MdG6nSWkFDtzR7udonDn lGCvJRDaQGs0qL68YDSm xC4qeCStLKvwwwClOkU4 YVlaDWYbPdB9DJLwsGWr TBJuZ7mhTRScVIpiFKFw TSicgNXgXXB9nMonh6W1 bGVzaGVldHtcZjBcZnMy QgDJl6VyPBm6tFkrI4Ya PJByLbK1eKLjXTTaZTnb VIWlNLIrttN5tH17VNrr nfG3iQYjh6Xpc63ti058 iH8dyCFfWMN8ECUsWXKb gVThXFGfHZB9HNHxyKKp T9ztRDAoAZ3labmxUJba NRynYKTweII1EQCzyYJp N4MjKUOcRPgjMSXqvgy6 SpJmFp0mbVKrzLljXMdo j8rpb1ustUEnIpp2TBKn OkMrEpecUOrkt1Aaj9ja JXVlha7gNCF2nYWjsVrm r1Q0rRUoZHRmxIUhzkAm MCFtJkY4SNgxSP9esw84 WWLvPHK8kv9jcFBrxVxn twKvoPXrURcrN4VtDCCh h866FTJpV5CoVBBzc5E9 tvPqPnFtWBOzmMQ5azR6 JDTrTFj0gAQurnR4evVb tGOdX2dvzA3iJGPcGW4f qjotf5nnEXyhPYecVHAf jES0joG0UPJtjBEyI0Lr yC6aZYBxFTxiPGTqayz8 FtCbAj0skDWmkGkoCCmr YmtwYWdlXHBnbmNvbnRc cGduZGVjXHBsYWluXHBs YWluXGYwXGZzMjRccWxc oZlanH5pQuTfRvHxBRjc ED7lYGFiY2mdkBHrXECu TADoN3jxIjUskO0tmPfv RXekxuH2EYlaW77nLRW2 RVZ6nyCjRZIqvxCbUWHi GVDoRR4maJCaXXWkMQZi FF4hEVN9HAvjqNJuQEDx SGQeTBUpm1VsLH0yKHGb kSBmSOT0UZQtu4FcR9Pr UNQ5VEDhrI7cKGDfrNCH VCBNRCBBbmRlcnNvbiBQ WKGak8cqM9vuVG7dZNue Db4cFZZymeguLBAdiSPb ucNaTBAmKHIqMMHot9Py NHgmgdNptj37CJNmBN3f q8WqG1dfzKNczGo7SSBn SNKsOEMcj8XsQMFxui06 LZJlRhnlzAyxWTSqJj6h Rc0fMPFnkhHrFER4HsOV JY2cvcnfuIGavUsitf3t XHBsYWluXGYyXGZzMjJc bGFuZzEwMzNcaGljaFxm HqrlLpNiRDDfICfwD4ln ZjJcZnMyMlxwYXJ9 Lab Interpretation (test Abnormal code = 88455-1) [facility] FNA Cckonszdrckxyl1813-39-51 18:28:31 Test Item Value Reference Range Interpretation Comments Gross Description (test d7einOFbCJItuBY8CCQn code = [id number]) KFPiu4woz1CnaMPnfSKg MSgzzXYbgeWlog43tOU6 kV73TE4oCKOwGfY4AWLc npE4Xkw2SWErPTMaeHHl N655r1rbq3mhdwKikJO5 BOSnFRVpW6HpMQ3aDRWv mGNfC33igXAcBLS3JOSj NALuyBAkXUVgAPS4JPUl hXMvI5dvKTJqVR9ohlug FAofKDnqOXLawFM8WPZm zRVdB8IhXSYkPMlfEUCs efx6AoGvDb7tdGItuZwk WEppGCZrp3atMJIkhYWu XLL3XFuhsPQqYAHqSMZx GPh8IQLrOHrxhOFvBU2z jWtvBiuzgWazi9FzpFNd XGlkIDUxMDAyIFxcZGIg V9SSHIFyRMFnVsKlQXRa CKb9XJqsM3UKUJSxXDR6 BQmlCuT8IoU9PQl2CTHD Xb2xBAB8VECoXHS8RND6 PSU7RYDpFALnQbChWJQe IFxcZiBBcmlhbCBcXGZz SRBtZTbrKaCjBJacQ71q bHfbkZ5pWefhwhSoMTR1 KURdxivhUWwwKoGjU6Jt X4yaEN6aTMDpf9N8chGb OlxwYXIgMiBEaWZmIFF1 gBq5WNAnVAJeSBG8ETiq MUAmrHPhv1lsHGBkLSIt qMvrPPrznc41XON7m3tt aWVsZHtcKlxmbGRpbnN0 FAxGOBXNZNeZJoYmDG3q TEkZK0XCIGtTDefaKHO5 KIdvbFA8d7zmyJXfg0l9 LRmyTOK6gJTkePyxlYj8 WBXtj8RgwXGdnGYdtDIf zNA0GYQzYFrhm2ftTNKi ZOvxo1IxNCuFZTVKXG5R RY3yqRX7K7sLAUCEC6eY iMG8p8nygXGow0f4FDne CGI1dEYqh83seDplEpbu qJT2KJihFezfuV9fgNHO UJPIRjqTCxteqlOrTV5R HKoGBV3YzLV3g2wtaDYu n6p3RSpoKNV9kHoipOMt lgsyzn84QEC0VSFjHcVh D7MdPPXpuYAtNLfgIfwl fYZ3VXocPxscuY9peBLF QQYCJumKZxdgqsVzZA0W DLUGOD6GaUI5GaBzsDZ3 HE47QVRdGFZfkVPhGPre W063QBRmCIniUOKlDpVb U2LmODOicjLWTM7XBODo uwFlQTZst6blC3k5x73k eOZ0NWTogxJoBFXriYsu GhghL7vyfDLbBCDdfSCv BWohYQRQwSAcJHHyxY8m Vc4lsKNkuS48OVS0PcS7 OfHmLoHRMTD4XYTbnCOv JRUvogCLwDmwYrV3LGJe IGxlZnRcfnJldHJvcGVy jDNlruLyfSHgQNOmo3ho jFfru8DexADzCN50BCGm rOSgEWF0VT2grSlwAMKl soFZOSNTTAtUF3RrFPGX TFOYRULaKsQPYL9jFsG8 NnV6PQ15JtfyIEUTIJYC CIcUVO3ERAZGTOHYKY6J UkNkM2cNFDCORjQjFXUV JNGQCNEeLmKMAC0rUjy0 Dyzty1A0P6hVKVWPXmKw SUIHUWBXGFCpOT9OWDCQ OJLIJK7ISBWPE86OUBHR VLWZY6CRX0cFXWPtg0Eg eTdlNfW8VgYjBV8cDGiT K7UJT6dDAQMrGEBILFNM IUXvPC2LXDyFEN2LHWNm RQLQXHZXHTJjZaCXYZ1x LNdSAP1HODWaRPSQRYMS HVNgVJ2EDMXGJH4RORSQ BWYPE66SFCSWIZGHL4MT V1lDIAKLACFDEhOUHtWI JW3ORQFOIUDCCJ4SCpN8 Major Classification MALIGNANT A (test code = 9839) Diagnosis (test code = y9uygOIoEOOjnRZ5PHYd 34) LJRex5iyz1QreEYdfECk IAzvrMZjveKnll73tMQ9 cR96LD0yHPGtSxG1JNWq gtA1Pca8HSRfANHhrVZl C526j5dun2qfkqKdpFF8 PNNtPGWmR2HiJF0zGYYz wZXjA42veRLsVMQ9NVSw PBJvuBEyNHUwLXV3INRo aWPfI2ogCVBzQO9aunuq KScxOIdnPBHohRB5RNPf sBExT2VrZCJuYWmaTWFv mkw3VdYfOm3fsOGwfLst RAzhS8xcaX4wAiB3XHmm L5iqiK3jFHq1RHozVQId dWH1mbQ7QMQrzMYzV3Rc lA4pTDRmUN3nxjq9d0zz FPL4FHizFIWmSeM0lhY2 NDBccGFyZFxwbGFpblxm czIwXGNmMSBBLiBSZXRy e1Ubenu9e69ngT6xKPhh ZnQsIGZpbmUgbmVlZGxl IJMjmYbzEEQdw019KNEk azx7CUSmcEMeAHnnJxZn VQJXXIQZJX4XBZWgB2KP CQIAO7TORNTBTT3URHHW A34KFZWXBE9GJZcFUZac SSAOO4AiKb4KVAgZXSlB WNBAQ78WGLmoPIUcV14x bWVudClccGFyfQ== Comment (test code = d9wuyJXzUSDdiWE9HQBr 9835) AVIoz5vpu5KzyCMjbATq FGyheYZclrDfkk36wEM9 fY03VC1jEQZkQnB6EHHc jqP3Szo3ADGoLWLiwHCf H479o8igw4reddMuiMO9 ZOGpWJJvE0ZzVZ3qZLWe bWRnU39enDTlEQT8MWMy JALleZNkHCMzWLP4EGPf nYJwA5wmGBArSF6yucev NLehAIaeGYLasGS8JXFv wCOmU4SyIOJdUOmeTSXu hfg1NhEeRn5tzUJnjPeb MFxwYXJkXHBsYWluXGZz EdGyH4PbPDWdJCJctzCy rE30LOzrcaxgTEL6jTVc L0UlIRr4yYShs8ueSPRz gHgdShZJxW69VZV1rV1z ZXRyeSBhbmFseXNpcyAo HgLeFhBkEVV2Llh6SKNf gR53xtZtgdUaKtUerzTx gOGYSWHtxUpdpG1suWyf lZmgxdQxBQNuTTRes7Qe VObeWFX2KZ54ytkmPX8r YPW8OyByXS0dOOx8pYMg k0W5hRLgTGT4dGP9DKpw EBPrd4v6tWLnMCDuydRJ NDL4PGIGQBTfVTJORCMm MVhccD9oCSEbFNVJAIWa VNQworBttY1ql3T2gHeg GSydqOBrWKrlK5y5CFMc MWqwOYT4uXprONAwPVue oSr2LTAme1GzE7I2ToDB bYRvAjprTWevU6Rlf0If eH5bwKC4eGQvUPGdpqEu HWfpR83pp0qiPkWvbXKm BZTfrjHMmORwb6Ksi8Xu RUTxOBNoy02byQYzZO04 IGNvcmUgbmVlZGxlIGJp x9ExjKMxYbZcNBOoVXc6 MqxcRt2xMIC2joLgLJLa GFTytZXveQvbid1xdQAd CRFfnswuSzKaN8BqwTDa oO2mniJhAHZ5yO8pHLhe QHDzvcWtxPH3rE6hcZP9 peX3cLXdJKjjS57sa5xb LiBccGFyXGNmMVxwYXJc K3KkDWIvlc1= Retained/Biomarker q8utcZRbUESaxZI7UGFt Testing (test code = NNXyr5xdl4RgvZFrtIKg 9838) MQeegHLpmxEbfl39uIK9 eZ52XJ1iFWTpAxC6VLDo huL2Lsb4YMGdBPCtyDWm O859k2mrf7nlorTklIS0 rNhjOSJyfxtlNxX3PBhe OZYbvlvgILm9FEsmMPVn rST6ADUdkPWwY4NrJVBt LY6fbud4IBT1HVpdQGLc IjL6ALJfxRMcWWOrrQdp MTalg814MNO5ImRnEZEm xjEasLxejL2yPvGuGPXM UjogIDYgUywgIDFDQlxw JNYsyUShLKSlTIPdy79g gnkigdRXKKZ9fU1pKgnh VTEtfAjvKB5SWDDFEdit ICAgNTAtMzAwICBccGFy OC8LUHQNMHK6PPAVc0Yj w6FbtARmtCMrWWLboeHN OTlaECE0WIVmCg25NPY6 aXRhYmxlIFxwYXIgRklT RJHXOLdxUU5cyAKfcIl4 YWJsZSBccGFyXHBhcmRc cGFyfQ== Informational Points c1uqdCGsFPPyrZZlRgJx (test code = 9836) MIUkKHVnc2ahRSFvuXPb ZzEwMzNcZnRuYmpcdWMx VKZsIrFbz3dsm434wDKu f9jyBVZaQqL6uIUzCTVc lXWlN511RTMwHVaks7cw i5YkTWCmwADxt4A8TVWA GKhsNKYJOVk7s4khYjFh GmQ2uYBsHRrgS1vbsqYn pSDrOEYvVGe4fE35ZHOw kV1cwHHxKJpmtgGaJcP6 LGwiYYQzQiY7ZGSmeJTv OHHaN1weKFVsQPisJLVt GKcksXIpECT0oRmqc5F1 bGVzaGVldHtcZjBcZnMy CxOJp3NiGLb7cJnsX7Fy CPSqYwV1xOUcYKWsFCoo MAUgJACwqcQ5yM03SKic ktS1iOPvq4Buk56vn782 wV2wiGHqSJC9EUOsPOVu zWHpLKKmYUU6NADhhBZr E6usPZGpLR0qbhpaBMzx EBpyYMUbvIV5HLCpsBGl U3WbKLXoWWxhVMGssve0 ZgTnTg2nyPHalJirVYam n9zli7enzTZeLam9HXAi IqDuGpxaMKtud8Dhg4db AATkae4oYME7kUZqgBxv v6Z0tQUfKQAkvLLdqtDb CGHwKsL3PMtvBE6kip65 VHHyJLU8rm9liZWliFhr xmXawDNmWVtlR7RnNTEi v769PYHpJ6XvAFEsd9M7 kdBlCoYdFBIldIM8eqZ6 SGNnTVn9xMUjqfA0obXg gCZkF4kikO1pGGFlPQ5w fynoe5fcPEnmXCluZMXs rIS7dsA4IQYzzGLdK5Om cJ5wJEKsXLjeQBWmhxm1 EiKbSt0pvQUymBlyIZzz YmtwYWdlXHBnbmNvbnRc cGduZGVjXHBsYWluXHBs YWluXGYwXGZzMjRccWxc wVgrqC4dYeTmBsJyRGqu YS5aERRxC9tnnZWuBMDx RMIqY6xyNjLmjY2inGun ULbkgmN7SZmlY84uRZA4 VEA0dvYkYUIggzXpSPCi FROhPR8toQEdPVQwCVHu IG1yUYN2AWshkLKcDDEg ZLAhLPMny2IlPZ1nTOYk wJTnHHU8TXRtz6ByT9Hd WLX9LOMmxA7dKWBqhLIB VCBNRCBBbmRlcnNvbiBQ MVBvr9bnM1sdRG1gQIfw Fp1zBPHaffseWHYgcWKp reFiUJSuOZFhVLWce4Bq JDdhtuEaxl18PMAsVF5e t1AxS8nkoXRdfPv3GHWh HKVyNCKtu3TbJRTauo08 TDMbFxzqxKpnEDFtBx0u Rp5yFCLlurKwLBU3EkNC OM4lfsdafZCjqHsyuk4f XHBsYWluXGYyXGZzMjJc bGFuZzEwMzNcaGljaFxm PjztVoFeXTVaNEovT7tg ZjJcZnMyMlxwYXJ9 Lab Interpretation (test Abnormal code = 08252-0) [facility] FNA Ljzklzalhtspat9361-86-64 18:28:31 Test Item Value Reference Range Interpretation Comments Gross Description (test l0okvLCyWMKjiNU2JSQd code = 5704201867) EKEmo8kaz8MgsSTolSIj VTbqbYRrbwRwwr40vSM8 zH19PS2jLAGfNcL7POHi niI7Mok9GIDeVAWjqINx N707l1hai9rxhjNsrDW9 AKZvRRKvS2BrFI9oMMBf wRAtA87wuGVlRMK3BBQa XYJmcUKhVAKaYMM6YJEl sEZeR8zqOUKwJS0uwkde WGeiLIefDGYnfTI3QSRh cTNpF1NcQWFqTXqpFSDx mtu7ZgRzUw1jxIKpsSgx WJqeSEFmy6xrYNHczZGk EKY5QKckrHRdCUYcZMDh SXd9WAOkYJzucRKcYU4v tEgtXssdpKuka9RjnUNa XGlkIDUxMDAyIFxcZGIg C9AXWSTeVKRpJgVlHFAq ROo8JZlgM3NLPPMsNLL9 RCmmMtV9VaQ7JPf4WNIQ Xb8rRWH5FZQbZJX1ROK8 OQK6GPInRFRhNyXfKVQu IFxcZiBBcmlhbCBcXGZz FTAtGWsmTsNiDLjuM49a jKzjrX2hIcumsyZzVWN4 MCUadvwoXYpgClQlA5Ix X9ztGS9vLXLpm5C3vaIr OlxwYXIgMiBEaWZmIFF1 dYy0QGKtVIJaPYZ2VKjb YMIgtHThk2xlKWBnSQDl lJtoTDfstg63QNW7h7lx aWVsZHtcKlxmbGRpbnN0 JWbTAZAJYCiDGvZpYG9f GGmWL6SGBZbSFifnEVI9 SOhkoJO1a8fwaQVww0y6 CTckUWD9rQPtkLpidVn5 MPWcv4PdhYDpgPEurQDr hVP8TFIqVCifs4zaAPDz OTyef6GqOOgBDATEDJ0K CN4urVJ1M1tXEPLUJ7yK cPW9f4tfnQEiz7d7FOky TFP5gHYmc10rcKbiQfve uAM5YLutWejkaY1phHKH JWARDqjPLlsqblAzLF3V GIaHKD5LjHG2x3ynnFNf e3t4HWxfOTH4lLjtbPCd hpccse55HUI9SHGdRcNa L5MzLNFamBYkYEywOqaz hON9WFrnFqrdsN8hfZHV IXXFQjcJCdouctSpQY5F QVPUIU8McKO6FvSorCQ7 HB12OBSdYRKvcHCfYRfu E655PBYxBKgiARVyHmYx F1QcXNEjlsITFC6NOTMe etLfFFYkb0gwI7s4w13h wTU6CYNvojMtGIQjuLgl PyojU4hxlYYwKPBxnEUy MDbhUEVHuBBpMEVowA1q Ca8mqFZqbZ29JMS2GpC1 MfArFbETWBP8JKPogPUj FZQrtjBAoPbxQeK6OBJt IGxlZnRcfnJldHJvcGVy mKJiqvGkxCTcEMLhm9hy vGjyp0QmnGYsAM10NYUo aNBnEHS9PL1frJrnGAEp saHQRWEQBNzYS8PqLEQD MYJDSMAqPkFBLP4lWdP9 SbR9KE22PybaNXSGEFZR UCoMUH0SCULACSVNSF3T FuInC2eFHZOPSmWhESLU XMMOQAJdUpPVAS1bGhc1 Zjali9M6Y7hKPNXESxTn EHZYUEVUBMZpOR1SEYMD GNNORC4ESLAXE19MLSIS VAEZD5GXF7aDGEHbc9Qs dTlcAqZ5ChAzDR7cSWmG N0UXW9nPNNLeYLQJFPKE ZGYaZG9KGBaAPD0XMHFq IDZQAJIWOIBgWhAKMX5h DQsHIC1QAMBnYOWKSJAZ VTWfCY9YADILBC2GZPLF FTUCG63MSFTKHBDLB3IN V4nRGAKLIMQAYsZHKsGO UG7IOGBLNIGIHA8HLkF5 Major Classification MALIGNANT A (test code = 9839) Diagnosis (test code = d3frlQFcCTXesWN5XYEv 34) EBFqa1put9UxoJHjrHAs FDdbrHVbepJnij26oUG6 aI93CK1pHGLpTvC0HIXl okZ3Nxw7LNSbRZYfcSVn R507h6ydp7owlbSmhBJ2 ZEZmBKYrY3EjSS0lMWVz qXRmD32xlXYoNCX2DJOa NKGpuHMeSYZxFWT6MNLe pBCnA6fpSBBhPL2gabzh MJhwJShqAFTqdON0RRJc zTNxG9CwFLEmKLufSQYk cjn6YxDiFs0psCSzkIpg QCeqU6dkvY1fRxF1BNvh T7xodT6pYAa9TVqzRETr qPO9qlE7CBCtlWKcQ9Kj vE8xJVVqKX3gqcg7u0su EIQ3VYfxAEEiStI9xdJ5 NDBccGFyZFxwbGFpblxm czIwXGNmMSBBLiBSZXRy z9Cmeab4n88rrV0kOQms ZnQsIGZpbmUgbmVlZGxl VDVdwArqICIgg113DCHk qln9GHEbtHLeZOqzJnWh ZBXDEQKVGO4JWFDjE2MI MFOWY2IQUEWYFG1MTFLU D42NAWNYIH7XNSoHNOfn PXUXQ2JhFi2UNPtKEAiE QWUEL10DEFrdGXIgB30r bWVudClccGFyfQ== Comment (test code = v7cbbBQnUTQkyYN2MHXl 9881) CMFmt6qgo9LqcPKsxOCv YAqscBQvooIxac85oPB6 wQ88TU6fPKDcCqE9BQVu paX4Ehf6XOUcGBNlaJCq M127r2qnd7wpbwGsvSG1 OKMyCEJgV3ZeJC3jWPZo aSKvV15miQHtVWK8KUPa LVPfdTWhJFPwQGQ3IXQf zWTyE5seHDEkLG3jecen MVawQVsvQWNmqCZ9GTAh vHHmO2NbLSJxIJzmWZTq wef5PxPqTs6ddBDivSsk MFxwYXJkXHBsYWluXGZz ZcOmX1GoXDPhCGFmumNf mP29AGryrrtiOAY5eJDu Y3AbTVi1eOLfk1rxCLQk tCytTmZZpK98BYD4dG7v ZXRyeSBhbmFseXNpcyAo HuWsZkOsYOZ6Osj5NNKi iU10wqQsuoTlMsAkwqAo hELECKLbxZxpsP6alAwk bByzrqMySHXkSILxi6Qk CUdiEYT7MY42rjxsDX4b EQO2EjOjEP8nSYv6pCKi t1R4xKVqULQ6cWS4FCde JMPau7c7hBCfAZYqapRY NNQ9NNYGWSBcNOOUZQWm YRpwbI3oVYMbVMKHHWPp IRAmtpHfmY2ji3Q4hPcj EKdkpQPwLBvlB2q6YNFn PFymEKS0uCjdGQEvITri fDp6BNYnm6EoD8L0NqGJ nQAwZbsgNIoiP3Huj3Yf qZ6lzLB1tJJnXZUjkvYm ZDeyM99gf4tbHlGdbBIh XRPdswVLxQGsy9Jvb3Pj BEDkBINtf10kjJLjUJ94 IGNvcmUgbmVlZGxlIGJp b4GedYGzArDdIQNeGJm4 LkvuSp5nCBR9ohLdJZFe MQXxcLPvcPucqc2iwZNy SDVountmUwPeY7GdrWYd sW2auzEjAER0nJ5rKIsd LRVueuIxkTV0wE4yqET0 jiX4pSRuVLyhE81yt3jc LiBccGFyXGNmMVxwYXJc E4EsHSAnfg0= Retained/Biomarker y0sujVOwQHGebDE0DQWt Testing (test code = HTRws3muc8DjvPYnaKKe 9838) VGxaoHUblcCyop16gKD0 hM50AH1bQHJlAzR3AVHp lyU9Jtn8NYGfSDIpaFBz K911w1fps3jagpIbsHQ0 fLwpJWTrryohJjI8NGtp QRHdnyimBIz8QSxkKQVr rLK8YWDlaDAwQ6RlIORr PA5zpko2OVW6FUhrHEWz NdL7HCQuaIAyNROkoNxk BOvmc397CNR5DzIdGRHp mnMxrEmfxP9sQxJhLLEO UjogIDYgUywgIDFDQlxw UAXbhNSgNKTmLRYus23y uboqjzVPFTM8gM1kHcyg FSLfrSecVR5LGFHGCwxp ICAgNTAtMzAwICBccGFy WU7XHARKNFD3PIHIt2Lr z7LalVCrjNOtOQShgdJA SYljXUA9DLEjMw76TGW0 aXRhYmxlIFxwYXIgRklT BNVLMPplOI3juMIkrCh2 YWJsZSBccGFyXHBhcmRc cGFyfQ== Informational Points l6lveVQkUGFkqUEjGnIk (test code = 9836) UUTxOXFyl2wnZBIigCCj ZzEwMzNcZnRuYmpcdWMx ERQdPnIjv9lnl619rLBj h6xnKHOsUfP2dMOnVRZf rVWxK678HSXmYPjyf2js u2JeRHGkwFUuc0D4OHCY RBubHUZVYEz0d5ijGlSy NtL3kQBlXPycJ0iemfBp jWGhQLUxLHf5tP13QWWd tO8ekRSqSCoykmMiNbU0 VCxvMLCaGsR3DOBxnATj WZImT3snIZCkLMsePKJd TJzpgIVaAUH9hYnev9F7 bGVzaGVldHtcZjBcZnMy XuQCs2EwWJl0rQqmI4Va GWXzBjZ7iDJbXCTzJBkm DQNxSCGkygG4gX29NTgb cbO1iPHte0Pfn15ex836 qF1skXRgDLY1EANzXVDg vLNoDQAqOMO1EHQnzKOl U5gtENGyAT4ylaxpXNnp NYjfMBBiyCG6MAYepMLb J0GfWOXvBGhzUILhczq3 PrOmJp4ctIEzmOcvORjw c7ebx1rvcVBjMzv1MOIo PqToVyoeRPdcx5Scu7ie XIBlnq8tXOT7jZYsyLwq o8Q8dLNfIVDydXFvuhNb FQBdNtZ6NMmlEZ6mfd20 JECdCJX0td5rlYAxrIhw vrXsyHHhHXkeB6PrZBKm y785TEYbL2FdOGQpq4B6 czPhKnDzTHWucUX3tlZ1 FZVfBWy3rNNuawS5umCk fDNmX3wffY2sMBNnPZ3b adtql1axTHzjHXpaEYVb kPB4ylZ5UZFjgJBsM2Ej zG0dHCEoLKuxEMDyhjp6 IyWaYj2qwZJqgYttSQxb YmtwYWdlXHBnbmNvbnRc cGduZGVjXHBsYWluXHBs YWluXGYwXGZzMjRccWxc eCsefO4sQjRbMuQkTZvy AG4nVAZmM0uqaVRwXUTs VPWlZ5zuDfLfzX6kwTlh IIyjcrC3HQnoJ48gKBH8 YJK6zaDxUYKdgsNsRLLs NKEoUW3ktAZqHJAtQVXm IZ0bTDW2TUhihHIjXZDp SMBxPPFiv6TeDZ8tFKAc nYExZCN6MNZsv7BzT6Or HVV8LOKpdM8tSFXjnTHG VCBNRCBBbmRlcnNvbiBQ ZBUuf1mmE2llNV7uOUgu Zq0bODLooxfmONRvbOQc jfGhBFHsATOxPYFtv0Vl NKbsghQxys46EPPgXA3t j7NtK4scgVZfhGs6PATp YOGbMGHlh3NbCXIpns76 SOAtQzzonLbmHVGsLm5p De4vFHCyvdPqCMA6DnMJ LV6pfqkjaADalIffia6j XHBsYWluXGYyXGZzMjJc bGFuZzEwMzNcaGljaFxm MskvXjZqSMWuTFcqB3ti ZjJcZnMyMlxwYXJ9 Lab Interpretation (test Abnormal code = 96658-3) [facility] FNA Ubcabsueygrepz1620-08-02 18:28:31 Test Item Value Reference Range Interpretation Comments Gross Description (test j1iikYCbMUPrjZA4RHLb code = [id number]) AMKxn4dxb2DsbHFpgKAk TWynpRKqtkOzws08cPW0 tU49WU2hHTGaJaV5UDDq tnC7Tfy6JMHsPNDfhTTt V793d1jvq0xygzJmvJT6 NWNmNRNvN5WmJV6iDAPy zZDyP14tsTZoCJW1KVHu RXCguCRyHACxNJW9JWBn kHDmA5hmOEHeUY7atppk LOyzOOmlAQSwbAM0QSWb qDPtP1TaTGXgLOkcVEXl mux5OxUsYu7adBNcgFdm NLfcQSAuy4yxWSSthEYo RJG4AJxmhRJcGBObBGMa MCr4VIIeCMmpwKVaKV8i qRdqMqlrjZqgf1XttWJf XGlkIDUxMDAyIFxcZGIg Z0RDGCJxRUTmMvZoKCTj WGo8IPmoD9PPDIEsTEK1 NPpdSwH0EqU2VSz3ZENW Pt6dNZD0REOkTDN2RIT3 AWR8ZHDcIOScIaAbDJAb IFxcZiBBcmlhbCBcXGZz KQWhARxvWiUpZKkzP12r iHgngK4yUvxatvTjKUO0 BAXhwryyOXsyKtVzX5Dw K9wsHV5zZWIfg3S8giQx OlxwYXIgMiBEaWZmIFF1 gSm2PXSwRQIvAHM8SLpb GKZbgTYmo7uqIKUpEWCw fXwjVMzovb15CGY6f8bq aWVsZHtcKlxmbGRpbnN0 FTgJLHYCZXbPWgZeAF7h MAdUD3QHYUgBWusaXRA0 EMgfdVY1n2xnbLPyx0w1 LHoaKAI8kODzvQhmuQm3 SJBkg6WkrTKtvGQpdGCi hXJ5ZANyFBekp6iyLAAc MDhai9WuENbVLVUWFP0S ST2rsWX7N2zTGHXGT2bX jXI4b8admTGlw0r4UZge CPE1vNFmq43mtJfuIznj nGM2GPmmQanrbX0ihGZH YBJRUnhXVwpryuDwBI2G WYrLAL0EvTU8m6shhELw e6u6DAidPCA6oWyvnHEk ktspbn76OXZ7FPSuMvIm A8BxKVBwwATaFXflJbzp yJA6RVjoWpcrlJ0kpSBK RTRCFriFQlceowFyZV6H URATUQ7LxTC1XoPcoNO4 NX41EFGsLTYzhCJuATbd N207QLLjSChbLDZvFxOr I2SfVIGfvzEURJ7YNHIq lsMfRHDxf7rxL0z1w88x dLL4CVQgjwCpYVMmaNzt AjidE1zyvUIfBYNzoDBx VIckNJHXyCWzENGiuH2l Zm1aoHHhyB57KHM9VkX9 PeMaGmEQFFP3JJOliHXw YFChusJHfHdhRpB0WRZc IGxlZnRcfnJldHJvcGVy kAOnwsDiwYHlRIAxg2oq mFgeq5RbwHDyGD34PWRj xNXyOXM6WW9siRntOLTe tdHVMMTHOWoAW4UqKUGH OSCOGFBeErBOBH0xRmI7 RgB0MO54ObfbEEHBMUAY XMsAEL3URMHUNJSLBA3B VnYxF3xOTZUNNjWiDBZF UPLCOYVcCxJLQF6hFgl9 Wphux2R1Y1wSKYVDWtAi HCIRRSYTBREnXG5ICGUF SBXAUD4VYNSJI85GPVYE UPJIG6YGN7vFYQZcc5Cw sYwuQtZ3GyMlJK1wMLmP T1PNN7qPTBOxJJYMBDCC FXNdEE3ZEScUEH6XUEKv YDRNCHNRTSGdCvWQZU7o ONtXFR6JZMBnRDUEOWTH FDLrUZ3IYHWBKI0EWBCM LODFJ12EMUVRBNBMQ4ZF S5tVSLCMZQVZYxVEOtYY IB0GYITZFPCOZD1SSyR9 Major Classification MALIGNANT A (test code = 9839) Diagnosis (test code = g4lmqIHuCUCrjOJ4XXVi 34) AZKnm2gyn8MtiROotFJm KQxeeTYymkZobv39vDW0 hN95CV7xZQDbWlC0TBMy bfS3Hve3XZOvPVEkwGGf A106b6mba4glhuAedRB4 WZZiAJPxC3JnXE1fEILr sFVtX43gqAGzLSN0WTDy NFUavEXbJJEoTYU0KPQj lUAcI8unZVRiRD4jkenb RKhkLRrlKZLsuAA3BYZb yGUsE8PjFMNfIYwhYUNv rxa8CvGnYa4rvWGkdZdr MHgtH7ewyT0cNyM2OMlc G4pznG2fGMy0QUiwRHSt yJH7tcF2JHIgyJBlG4Kb mL1tAIUfDV0rwoa4i8er TUR0NUixDDUoAuI6xeV9 NDBccGFyZFxwbGFpblxm czIwXGNmMSBBLiBSZXRy j9Rfmyg2h21xoH9xQRya ZnQsIGZpbmUgbmVlZGxl ZOCexKtuBLAcu328GOUn jej3LIKkiLAwIEuxXfYj JKCBPABCAI3DTJCnH9AL DTBDL3PEJLKYOW6QFUIR V73ILQKEVV0ZXCpPWQhl HQLDM5DsNe3YSIvORJgU WGSGF81MGOhoCDJfC04p bWVudClccGFyfQ== Comment (test code = d3kxiHQmUUAzyCN9XSZc 9835) MSHxa3yuh9MixWUtiRPg ZRxitYSzcfYjtn27oEQ2 lG85YW0uJTZiOdI1KLLw hxJ1Lpx9YFLjASJgiYSs M057l4oli2zusbXtkWQ3 FDEtCAEvE6ShUQ1fDBHt bFXaZ10gvWXaTDI5DAHc QOKsvLKpYPFoFYN3IYMb lKQyK5wxWTVrFX3vgrph LMkcPZwdARXcwKJ7SIEi vXWcV8TcMYEmUWppUDVq yjm5FhTgAs9obPSpiSdm MFxwYXJkXHBsYWluXGZz CgMgC6TnZLCgAFIkbyXm nO26HExymvdrNJW6rDIt U1UtQLk7tIUmw1lnCJYz nMjjWqEGzC57GEN6xZ7l ZXRyeSBhbmFseXNpcyAo VjPkZuFuVNF8Zmb0DNPr rE08seHivbDnKrGyluQu gCQIBIDmfTkxcI3muTsy jValueGzMHJnKTSvy5Ze RLkxTJZ3YZ71vilzKE1w AUV1GpQeQY9dIJr8oSRr h5H2sEDbNFN9fLA8CArn FHLri0q5gDNbAHPdktPM ATI4WRWNZSFbTHXRNBTd DKkzqD0aLKImNGJLYUKi CXVawbVkwP0as3Y1jBqe NJkdrBVaYQjgA9c8PTLr UVldKEY3lWhcOVFrIQmg dIi8WNZix4TjS2A5UxAA uOAkSzluFPcaY7Rlr4Bz mS9xtYJ0sOPpRSUioiOi DJhtA66as2czJzRquJWq XTVqunPOlAUvu3Gzi7If SPWkVWRtz36hkZPsRM25 IGNvcmUgbmVlZGxlIGJp z8BzlLZzElNlZOGwBDz2 LwhwMd5nSIZ7ixUiLXOe OQEydVDtlVehqw3wiTTd RUTdqpokVwKoJ1GyvYLw kZ0bngCbIFW0gA1hLFjl OYOjnsAshXO5oO8hbAW3 tnT6yVKeTXazH05sz8my LiBccGFyXGNmMVxwYXJc G9RyVRWbis3= Retained/Biomarker j7vijOBbQLEfyWL6FHWl Testing (test code = KWHip8eul3JtbOZrgWLx 9838) VAddxYEolpIxwp47uTM6 kJ66NJ9zGGKbBoS8XGEv pwQ5Vfi6XYDrMKKxtAYw Z405f9msq7wisyItkQK3 mBqpQRVopmhoPgK3EHyf ZTMjnlmcYVr6DHprUCLr qMA2CSGvsABpD2YnWWOo TG0sdps5QCT8VSrbTGDr EzF6USHsvJVaYAYotVdm ZJhuj713SDJ7HoQnTTOq sdZqjCoclR8kPyBtPOYP UjogIDYgUywgIDFDQlxw HUAsyJZdJYXaPUEuz30k pdhgvdSKMBZ5rK7pBvkz ATTpvSqrBL7PITLBXalw ICAgNTAtMzAwICBccGFy AR9XZTWYQMR5NPXDy0Fl v6GauJBlbLOgGUSaclZG FWujPJM1AZEgYq19MOL1 aXRhYmxlIFxwYXIgRklT ZTMIPQyyHZ0oiFLnoKh8 YWJsZSBccGFyXHBhcmRc cGFyfQ== Informational Points y7masQHgYKIeqSEiRpDq (test code = 9836) JYIoZSYpc5mzBRTpyQWi ZzEwMzNcZnRuYmpcdWMx FIEuLiGra6okp344pSWl x7bjPJMxQjR9jAVnOGAu nMLpW747PJJeCJuxe6my h9BwWSYxwBLtm8O1KLGL QKtoBGTFGMx6u3quFaRy QuY3oTHpKUodF8snouYu cTAnEMFnGAc5cF20ZXNm iU5lsUDeKOpzavSaKcY3 DCsfFACgHbS7GZMgzKEv HBIbS4ptOQJtOScoKPVd ZEpbcCKnAZW0yChhs3D7 bGVzaGVldHtcZjBcZnMy XlKJy1XwIEd2eAcfW8Qv NTFkVyD8vTHiAOBbTEbw SKRuGZJwxbO5pY38CTgx rzP0kDRia5Xzu77ss426 qB7dbYWwBNB1DYKhXHYd rLMuYVPmRQQ4PHCfrVJk G4jnIOBaJS3uxvgiZTdg MYluLTDmhWQ7HVNepAZn E3GsCNHeVEcoWCLmjku0 BxTlSo5evAHjrNyzECbg b3tkd3uywCVoHxa3SZXe XpOwTpqrUMbmf2Soi9fe XEOmtg5cXFV6jUXhdFho l9W6wWSjWPXadGBqtfLv UOQiWdF9VKqoIQ0xoj21 QVDuCGB4pm4rnOUawLgq yqLehZFcKVisB9KhFWSg r420IXHyY3QmNGIno9J5 lkTvEiCfFDBwpMP0lmT6 ETOoZFv1gLKshhC6wuPm gENyU4iooE5kRKFvOY0y agnsj7nvMBxjTZqaCORe uLO4oyT0BLLfwGDvB9Me yQ9wPALmWCarTEQxeyc2 YdMbYw7vkVAvkVyiGHpx YmtwYWdlXHBnbmNvbnRc cGduZGVjXHBsYWluXHBs YWluXGYwXGZzMjRccWxc oKbcjT4lBhQzOfSbRCiq HG1yIIPzL5lbmKPaNPQg CMMwC7mkBgNaoR6tnJgi GZpxlvF1PVgjU09uNIL4 EXB2zzRpMWXmvvMnPBIq SHRhJY9ihJOfCPDjGORg VZ4nJTE5NCmljMUsLUYv CXVwQPAso4ZxQV5tDJLw gVBlZYA6TSPqe8CpU2Zs CFM5ZWIvkJ8tENWrbYPY VCBNRCBBbmRlcnNvbiBQ PQMah0rjA1dnBN6wXQmi Tb5tOIOfcwxjYIJebENb rtDuDYHdRGApMFVsa0Ia HGgktzMlut52EGHcBP4z m7CcE5tfgNMvcAa1ZOKi XBXlEUQep4VwDOWqud88 HRYcGgtpnCkmLHNqEw5u Gd7nOFUmdvYsUNB1SvPC CW8lhokfxRVrrQbjsn2f XHBsYWluXGYyXGZzMjJc bGFuZzEwMzNcaGljaFxm CerkZvSjVLVwXQunK2hf ZjJcZnMyMlxwYXJ9 Lab Interpretation (test Abnormal code = 21628-4) [facility] FNA Ceyoszlnysxknt1805-73-07 18:28:31 Test Item Value Reference Range Interpretation Comments Gross Description (test m9tqjWGkPFPmaCL6VZIw code = 8368919636) QFSls0kpx9IukBNfrFOk SUibaFQhkyHdvp84eHO0 vW79DJ6wZEPtPsG9OMJl vdD3Hrx3HHMoEQVjtFBd L782w3dol0hsewIqrTS7 BOVrMUCvM8NdPZ0qAWHh qKNnQ80ziNSgRRE0VMAx YSYweBLsVXSbNMH7ENVe dRDpX4hdISHaPD4yntvd HBouAHpiREShdGZ7CUNu oBFzL4SkZCNxVNxeWROj nsm2IpMwRl8xcGTxuIos YVnmIMQlf0kyHJXcdCOm LQW5IGgneBLzLXEpXQBe KTj6WJQtGBxcsZEcXA5p eOibTgccrFmid8RuzHRm XGlkIDUxMDAyIFxcZGIg W7OWIZHyUWZhLrWjGYEp XXh4SFvtY2OIPVMhTJH3 VKcrYrY5AhF8PTw1VSBY Os4mLQK0MJFyHTX9QHN0 EPE0JCCrJEMmAwUwRSAx IFxcZiBBcmlhbCBcXGZz VYBsKMckFkLjXNgcR39k dGtvuM8fHjayxvEgSPE4 GJHzuqsuJYjnPdKlV4Me Q5hzAS7rSJGsq8K9xuEk OlxwYXIgMiBEaWZmIFF1 qOf9DFEyGUTtHWJ2IMxp YSVflDOol1wnLLNaIMVu lUrsQTkxwf30EZN3l5it aWVsZHtcKlxmbGRpbnN0 GSrDUZTCAJcZHaPkVG3a IVoTS6XATIqYFmrbIVW5 WYsumTT2h7smuXVta0j2 ABkmGWE4zFZumFbzwSf5 JDLgq4NmlOZhfWGofUHd lAD2RPOxIZnyn8dfLGZs SLgzn8CjPPhHAKNPIY9K VW3xcHA4L9oVYPUEC7gA tHM3c7wyxWUgs3v2PHlw TTP7qGOei33fjHldAwnl oSG7PLghXqwkoI7vkUAM UULOSreCZbrpomCdVS6Q JDbOMY2HjJP2i3kadYTd d1u1DFlqUCM0jBswiZZl jmrgce84DVK7XHHkHrXk O9OiTMQupLNvGMgmRbeh zDN6GSmqIdbrlU4egEOH EXUVQwpXRzfshpUfDP6Z EHUVFU7NcTC9HxGoaLM2 LV90BWJbFGSkyMZdSHsv T854QEGxEGtxYILrOoPo X8ZyAQEpqbAPAV0SRUUh anRfUBWzp0scB3s8v69b zFJ1MRTzgoVlHPFrsEjw FcycX9hbgFKuNQXorDZy BLvpDXZUyQUdYGRvoX2i Fw2yyZIunA22TQM2MnX2 ZuVkWdCUSEK5XSNcoDRj VJXoekLJiSfdJmJ2AZBu IGxlZnRcfnJldHJvcGVy lUWppiYnmXNwQOBiw9fu nNinp8IakCCmAT38PGTo hYZcGNJ2US6mdFejXXYe aoRWUGYZWKxBN5YbPKDO XRVCOTJxIvDHAR1uSbC1 KeX3EY20YrjeTFWEIQJD HQoMLW1URNSXAIBQJH5J KnHkZ9fBIBYLJzVyOTGO AJPDUCWqBzNPGP5pLvk1 Rctyx3J5U8yJFPHGQbRg MZUUWODFVAUsMI0YEQVX YVTWHY2YJXMFL25EJFIX UPBKX5VJZ9rFFASgq4Qx dGixFfJ8XjCaWF4eRVgB I8SQK5uQRMCkOZKGBESV OMGtKV7WLGgKRB6OGBKo UTYEESLIAJFdLeCPIL2u KVnRCZ8WOYZvAMLNEOIV QDOaML4JSBRCWD2NMCGL KDYWL60HWJMMLHXQG3NU W4wWQLZFBOJWQrEYKxOI NO1DPLDVCKXXMK4JPiS9 Major Classification MALIGNANT A (test code = 9839) Diagnosis (test code = f8ktjIQrKXQzoKQ2PYDq 34) LMFnt5qig2FmiHDzuNIo KAnfpJMjkqZbib20jUA3 mY10RC5bRDZnOwB7OMUq enM7Qka0EQRuGSYdwZNx L088s9haq1xrfcZdnKP5 TNKdAXQaR8UqHT3kGJZf oURtS82ubANsVOC3WFGo QWFhdSEdCJUhDOE5INPz rQFoP4nnNBUgUN7xujkb ALqqJJnbSQQqcJS5KPYy lCOfX9RnBECyKDuzGSHf uxa2DsVkAk2hsHJjjFhp TFfzA2ysgL5rUcQ0DWdb W3rjxK0mCQf2MLwoHSRm oMM9auV5JVImcIIlR2Wq kD2nXPFaSA5abte7l3vo PJH1XWigZTCdEbQ2odF6 NDBccGFyZFxwbGFpblxm czIwXGNmMSBBLiBSZXRy k3Stxfs5u84nyN0yUVxj ZnQsIGZpbmUgbmVlZGxl QENrjDilQKQae858LUKs jfs3SNYqnQShWYawZkJv ZKJZMBHSZU9NFZAgL2XY EBROR1SDZEYEFA1KGPFC J46NSOELZJ7MBXkTESpp BYGGS0WgFl5GFIzNPYpZ JRAAD69BSHilQNPqA95a bWVudClccGFyfQ== Comment (test code = f4paxXTqZAGwcSV2YOTj 9835) SRQvn5etj7KynWIxsYSb OZqbbMStgoGdci34bGS9 pL42RW2eKTGlVtO6ZBNf czB6Cgd6DCIlHQYukZOz Z983n5beo7scpcNnnQU8 SMQsTZFsE6LoDU7eHPOo mYCfU69xbQHrUEI8KXWq MXAywBGoKUHoVTE1HNDa cZXcU4pgETZiYJ0ihnfc VNdyFCzzIUWwvQF6IMOm bBHvM8LtXEAaQWwjTEUd wbo3QdIkZp0pyLBjiCes MFxwYXJkXHBsYWluXGZz HiSkG2QmADYtXABeflCy eE21BQvfxtsxXZL0wXNo Q0BgECd3iTYar2zdERZo bYlaThKPmW19CZI1aR6j ZXRyeSBhbmFseXNpcyAo BbEeXuBvNQZ2Qcv9VECb zJ57zmYvvwBuKgTjycTf hNLPTKJbiXixxW9amMdq kFlabaFeDMBhCXMvb5Fi BPiySMF6HS42joqlJK0z JSR5CgBnCZ5dYNj0bDTf p1G1lRYzAGX3dLF7AAly VZAda8u3hDKkXUYtcjZT GYG0LHTDMWHhXLRZAAYe ERjmnY0fXTSfHCTOAKRk WVOqvoJvtX0sf9O0cMda ILguoHFgIKigW8n1LVZf SJphSWP0tBjtDBGdYShc vEw9CVXod4MqI8Y3FuPU hOVlItbjBQkkS4Ubj0Af gS0ohTA0bKWrUAQmhjLb HBujZ07mt5tdBkOciJCi RWZeebHUcTXtl2Lby8Er RKOeHSWcc68siFGnRM90 IGNvcmUgbmVlZGxlIGJp q6RitOXuHoAuZVLvWKz2 MauvMh9kKHI0zfEoKBDw FRUdfSWbrPibex9mtUIw DDPumaohLmGsP2UdhKZe dN8bvmQhCCQ2eV8jOJna UWPrxxYdhZR4kS4uqGX9 dhQ4fHIpIHioJ09ga8si LiBccGFyXGNmMVxwYXJc G4JbGUBnsu5= Retained/Biomarker e8vikYHiZQAbuXH2JWTd Testing (test code = CHCst2tbt8PvtNRwyUCd 9838) VAikqOXbktUirs18xPX6 vM22DP2qTFFtOjU6JDZn dhE9Gco1LMGkTIOvpAXo A816f2wmc6naxtAmoNW8 sSerYPKqtaaeOhT9VOby RSFyefmrPHs6OGgnZBJp jCL1MYAeoYKwU9MhLIKi VS0sqkj5CPI2VIwoHPCc AtB8LIIkiXAiSCVdlLkj WNxei976KCA5YkIlNPCe tpTfqQmblK6kUiKkCMVJ UjogIDYgUywgIDFDQlxw BODqwICmNGUpEKGew25f nmeqeoNCCDF2wS3hFqhh CXOfzFkkDJ8HHJKADeyy ICAgNTAtMzAwICBccGFy LI1AYKOXAIS7RNQLl5Hg q9NcmKJbaQHfFPLbprUS VMgxGAV9DDCqNy61EGU9 aXRhYmxlIFxwYXIgRklT TRINSPsoKQ4hoWXeyFq0 YWJsZSBccGFyXHBhcmRc cGFyfQ== Informational Points v6egcPPmEWQpaBSnMkIf (test code = 9836) YSAoHHKlv3mnDPIvgSLw ZzEwMzNcZnRuYmpcdWMx JGViJdVeb6gkc205lRSx e8cvAAIxDlM6eRUgZIZv iQLuM509YWYiMGptm3zd f0AsZGYonPWcy2O2EHIA WSqtCPSFHOp0y2tsYtQa IfF3eGXhRIjgU2xbvdRq jTPaEQCmCFz3kC44KENz xQ2azMDaDScrrvSbKnH3 DGeuEIWnHaF9QPSjhDZx KALwM7usLQUbZVhtLTRu XVarnJAsSPE9tMuss1V7 bGVzaGVldHtcZjBcZnMy ByKOf7TwNLu8wWpiZ8La DKOqUxM1oSNbYWMdPJdz VLTgBZEwkjK4cP95VIhb ndR8pELna5Mgi41ys352 bP4ibSJgMDM1DFFvVBDq qOVqSCHwMSG6WHEpfIXm E5icRJHnYV3vglgvTAld GPxdKRYvoYC5IFWnoDMt E3TkIMJfJMelSDDezln6 DnLsKc1dwVAecVjwTCdd d5hxv1gppLWyWpo8MUSh KpTaWwviMRybt7Oyt2nt GLJfxb4vUFY2eVXbiCrd i4V1jERvJHNuxQWoohDi LLHsYwA4VOcaDU7kit93 KNRbBQF0zb2roXWpkBed yyJliOOwJUkoC0RiZQMa t322KCMhV8AyAIMee3N6 xlAgQjWsZAQxzTD8ttX3 YAWwFKw2eXApewM4efLo hNLvX4tpbS0vRXRaBI7m kftbc7lvGCzrEJzjMVMv fVX0anI6NONydXZwY2Mb oN8jTHEcUHrmMNJegtb1 WvXwHu8loKZehUdnJRgv YmtwYWdlXHBnbmNvbnRc cGduZGVjXHBsYWluXHBs YWluXGYwXGZzMjRccWxc iNhqmY8jXwYwUnVzZGrf XC5cYQUzT6pjwLQoLPXz ETJuM6ycDiBmcK9vdSwi HUpzkrS6TCaiM41xEEQ8 FLC5vdZrHSTbsgPvXMCr RPOrHV0bnFPgHHLpRSDy PQ2fCQE5QApfoOAlFWKt FMXpIFUmk0EvTZ9jIWCp pQRbIUE4FQDxk7HrM0Lh BIV2UOMwwW5oFROwtSOO VCBNRCBBbmRlcnNvbiBQ GLRzw7sjW6mkXX6tIExd Hq1tPCIstybyUCVneDNr ljObKHEbOKGgLOUxp6Gw JPthxoZplm72OLXnNZ6o n2XbT0pzpWAmjIb2BLJr DLSrTHMod8KtGPXapm80 VOSfMclqjBvqNKRoEc8m Ul4bJNVfxaZuQCB8SkFD QK4faeucsCZvqGnlas3z XHBsYWluXGYyXGZzMjJc bGFuZzEwMzNcaGljaFxm MeknZqKmMNYcJTikK8jy ZjJcZnMyMlxwYXJ9 Lab Interpretation (test Abnormal code = 57492-4) [facility] Qhnskorbemjkcc3389-55-07 18:28:31 Test Item Value Reference Range Interpretation Comments Gross Description (test n8szlAKgJXZyeIU9ADLh code = [id number]) GQBpo7tkn2RhyMScuGAh EXszbKBsahAamc09wYF7 uP68JL1dSNOwKjA7WNMw bgF7Btb0MKKoUEUrwNOu Z678k3rxv3bnptEstUI0 ZIAnJRGxE4BgOW0eZBZz uWWfB29voZVgCVV9UFIb NXFfjLMmPLHgQRR3TIEv zVNgO0bcFRKkFZ7icqvq TVhxXNogLQVhuUJ4LVOa dKKrU4VhYLVmAQldZFWq lon7MhSsYx1abIPgpOog ZYkwOSUbi2laOCIuaREi FWS1WKdymIDkNOJhHAUk LIt3PRScLLfvmPWdUQ8f cHidApxapYknc4AraYHt XGlkIDUxMDAyIFxcZGIg P3OTLSExEIYvCjYiXORp DQj7WHzvN6NRUIHcGNC7 LOjbLqC6OjD0KSz7JZTT Xu0aFOW5FILlPHD5EXN4 YUA9ZBBvCIKuLiKfPKMy IFxcZiBBcmlhbCBcXGZz VEYaKRlnBoKzZZxwP35v lYibbE4cCzuufgUzNQE5 MZKzfetcFOgiZzHvK3Mb Z9zkKH7qCVEou7S9znJg OlxwYXIgMiBEaWZmIFF1 aZg1QXIiQPHzGUC0PZsv DDTsxSQol9hhNWSbHPRr iXoiKXligu98UEL0l6aq aWVsZHtcKlxmbGRpbnN0 ENqVRVVNGRoUHaHrWR0e EAmKN9ZJRBtPSaxgSRA9 SMdgeVU1r2sjfOQuz1n0 HXctXTV2pAZrvFbvlKa6 PUKmx0XzbMQevRXdkNHs lAU5WRVnSQzxr4vfBWWu APxpg8IsOHwALFBWAY7R YT7jvIY8F0zTJGXJL0gW zEU4a2mbrQVcg4z1VApo NHE9tVGpz84laXlnBbzz jOW6SSgjAjdfcM8qbNLI HRGRFagRPcrwsmPoDP2C CHtJFQ8PfPU5l9ooaUJj w4s6PWnqJZK0cCfgxXUi jhtpxf36RDO9JRDqEbTq A0WjWYSrwAXfIGuvJapr tSK9PQljLeagnW3nxYQW VMGAGdxMBbqfafUoPF8M BOHLCW0PqHB5MgMgmKI5 JW21GCIzDWIqvPQjHDlc M525KJWcWBcnRTFhQkPd L6FrEKFjfjIMDH6GFUBa lhPkFKOgn9uhF4i1n53u yGR9CGAxwyHoRTLsmNqv BrspI0zrtKAmKRAsnTXn DObiIRCVnQVjHEBfcT2f Xu0clFJujP74VCO1NxV5 SdWtTjUQMXI3QHEimTMw OSHjqiSAmQuiEbY2GSOt IGxlZnRcfnJldHJvcGVy sLFfwzFfxYAfRHTfl7uu mIqse5RnwFNyDM25ZYHq bUIcMOK2SB3xxXdyUVKm waSRGKXNAIkAM6KjHJPQ DLPJKAOrVfNQBH3wFjQ9 GrP2LZ92UfvuNGZULSNJ HYpXME9XFLMTPPMHPC8P WpAhF8gRZPZBWhLhQYOK KUEAVRHiAsPZQU0hYbr3 Whows0X2B8jGPKXPFsSn DURKZRMKBVYoNY6VKOWV NHPOLX3BBXSIP38DZDWF VVTFS8MHS4nBOLHjk4Vv eNwcUhM1DaZdWI5iBPvJ D6YWH7jUSBZzGFGMMUOK XZMsEQ8WVGuXJL8VDOAh WUSOTPDHXVSkQlAJUL7o SLjRMB1SDBJsFYCVUZCT XPTxZB8WQLMXHR5NPJCS BTNGS59FEUBQZMWNG1LQ S8bWJATTWVQQQhDQUeLI HX3QCUGTJRFFTJ0OIlB7 Major Classification MALIGNANT A (test code = 9839) Diagnosis (test code = s4tknRJeHWRgtCK7OLBr 34) PICgn2lfk8MsaNNoyYUu GRkmmXCltnAyuf87xHG8 pN85HD8fNJCxBsQ4DXKf ceP3Sax6HDCyDVOjpTRi I435v6shi7kfniLqxVU4 VUAwAEZtA9QvWO6vODYw oQQeZ63nzFReNUN8LCMu HXQjaUWtUOSkSHD7PGKe fWFlU3izKGAvQE6zmczf GSzyFSyuLYKfwXK6HPMf jLUaB8FnXPCaUSkvXMNd zdt0MhSjYn6glBYadTbv QXcoZ7lftS8oCtU6QDby X6ljmW0nLCq5GWzaACBj yEZ7ilQ2ADKllPStV2Ct cC1kUFCtUI1vsrz1c7pk RLV2MXotMWRxOyD4evK5 NDBccGFyZFxwbGFpblxm czIwXGNmMSBBLiBSZXRy l2Iukba5c38gzH6qJJnk ZnQsIGZpbmUgbmVlZGxl ACShdKgqUBWqm067SFKa wdc0DUSuwZVbWQvkFzHs LQOUQTWPTY1AZXIiI5HO HNIQA9FIFFCCNP2ZNRIV C95JNLCRVU9IBPoRYHco SRCAX8GdAf1CNGmHYKmI HYVYI51ZXNebJIUaD30l bWVudClccGFyfQ== Comment (test code = t6uhrUCmBUNvfYV1NZJu 98) BZBlo4ybw5WopCHntCJb CYzybLYiimJvsj32gKM6 hQ36NC7sWFWoPlC3JVAy qvE8Mll8FWEhTKJwsPSm F083i5vfd8eossPdlZY8 LEQlLREjX8EmDL5jINJb xBAaK99grOZvYGB9AQLo TLEjzDYpUCSbLZA8PNZv nEDmW5cvUMWcFP2fmqsv VLyeTCfgUFDklVZ5QFRk fWFjU1WqBAPbGAlnDFBw swd4QbEwTe4jgGHzvMhf MFxwYXJkXHBsYWluXGZz CqVyL2YdMQRnIUFvoyDt jP80QJymfdacJZJ1iHOs D0DbKGp1nWSvg7oqYQBh rFdiLpJDyE87QKI5pR2n ZXRyeSBhbmFseXNpcyAo MlZdEbEtFIU6Cyf9TTDp kJ47zhSyyxHgJeMwtoSa bONZXANnaQhyrI3ukIeh nHfmnkObPECbUMDwm6Qw FLvzNVO9ID43gkjhZK0y AAF8BnCcMC4wLRk3yXJq n8V6lDHmNVS7fBR7YPcg KJYbl1v7rEEjDLIuceJO SVR6DXJNOALbVWDRYKWt DNcvqM0hCMSnPGKTGXQe HHTxbpXvvI3qv6G7oOzl OOxaiAXlEZgtM3v3SRKt BBsoCPT7lTiqLFXaUDdn wVq1LMRnf6OqX6M6QgLA nNWeMxbrQXiwI6Ekn4Og cD3pyOO9cERoERYsmqTz LCnqS23dn5gnDcMkpSWl JFDshzNLxQQck6Juh0Px XYDxBZGjg61gtYYbDD25 IGNvcmUgbmVlZGxlIGJp w3PkzCGuCuNyLWXfXXd9 XgelUu6fOSD8ddOlPTYf UALicJWfgXlzwt6hnLDe THAgweohGeWhX4PmyGWj sU3pqlRpDGA1lH9iDNkf HFNcoiByrHQ5jR8oaBG6 moW8qZIeDZsdC99xt8yj LiBccGFyXGNmMVxwYXJc L3FnZXYqgk8= Retained/Biomarker x4xuyHNiEQLxbPK0IIPw Testing (test code = WFFoo1quh3NkzUQelQVv 9838) AMvsrUTvyoQzux02yGY1 jC45YP9xNWBlHfJ8TLHq lmM3Piy0CSJrGEXxuTYt M624t5tjf9cuptBuuDV5 sForXFDfuhruPqF3LDrl PWTtuzkyZWs8LHaaVRZa lJT9UOYlzBDnL5UtIIWc HS6smmt7AVW9RDegRDAs TtF7CSWeiWWsJYDzfYfy SEbqh724VHW2LjVqMYRd buDphNbalY0lYvWgBUNB UjogIDYgUywgIDFDQlxw UTThcUSlGQXrPTWhu32m byupjbETBFI1aU0fWkim ZEYztQahOB7MJAPOLfae ICAgNTAtMzAwICBccGFy OH2TQSKTEPE4ULUJl9Nj y3MjmCHkiDTzRHOopoYZ UBnkGNQ8LRNmCs77UFX6 aXRhYmxlIFxwYXIgRklT BNIITCsqVU9lnYFduMx8 YWJsZSBccGFyXHBhcmRc cGFyfQ== Informational Points m5jbtVUjPHSkgBFwHbNd (test code = 9836) YFHmMCCfr3qyOZFplOSh ZzEwMzNcZnRuYmpcdWMx KLLaDxFni4lhd592yMJj w9roSLNnWzL8lITqBDZo fZUcD010RDFsNQgpe8il g0WnZVHqdAHme2I6VJIE NQfpSIRIOMv3u5okYjMh XlM7oCWmKPgyX0eovjUr aQBcOFHtKOl4iA96XCMn lD1ryZCaKTdgxzFpXzE4 FAhtHNXwFfI0TQSdpWOa KBTeE2blPSMvKGknXAJm OXgqqXGrGFE4yIscl9N6 bGVzaGVldHtcZjBcZnMy DzWAm4BrOEq3bXruR1Jf LMQlNjN3oCUoYIXpMMcq VDFbBUBorhU1vH49FWep izQ4pKRvr0Tbg51cp878 nR3peHCkAMK4AGPxFYVs dMPqPTVwIRO6BOXhmMWo X4ukNSRbWD9kwgghHDcc MIsyQLBkxJT8OHTgqSYg O3UfCDQkMEfwHZKjeua9 KaEvOg3joKBufGgnRQsj i0fto4xnaHOwHxi5BVXm BpXvGwiiJPahl8Xsj4nh AIZqzd9iHTW3jJMyiRli k6Z6pHAmGASlrXZflkQn HPLmWlH2ICttIN8kba77 TDRjUXO4kw5imRXuxZah dkPzeGQsOGxfF9TcGMCf j752MDZdO4YdWTZgf9Z2 ihQtInAaUPSxrFS3ljA2 ZMEkQQx3qCXeosG7zaEq uRNnU3ltdZ4vWIPnIB4f zmzwo6tfPEzlKKchVOGk sES3lyR5PGDrpTZmE9Lt aA7qJCPhSZjaGFWjomk0 EmIfQr9oeBGifKuwLPjd YmtwYWdlXHBnbmNvbnRc cGduZGVjXHBsYWluXHBs YWluXGYwXGZzMjRccWxc gIyxbK0dDxTdYwGiGOgt VM1oVMOiS5onkQNiTSLz KWPiV9ofLxWtjR9thIca FTdchtB8LQqzQ72lQOT3 SUD2fvTrPEHjysQhMGMl VDPeNE0xwHShMZFeTYCc WD6yFDK4GTzswICdOGYl ITOpNZNfc6KxJO2aKVRy uSUqGCY4WQCfb8BhU1Uu PYU5PDNayP6xACYriGVT VCBNRCBBbmRlcnNvbiBQ VXOdc3ohR2vpJL3pEDmj Zi2yBAUbosifCGWakZRi hqBjXMTePWHtLAWfh5Wy RLuctfFpqd80GEInCV1z l7UuK6rugCCvmVz0SALi JSTeGOUph6KzFDGmfr41 CPRxFfzquHwkODEnSx3x Su0pKYZmciTbZGF7XdRI DH5vjckuwUNxuJnpzo3u XHBsYWluXGYyXGZzMjJc bGFuZzEwMzNcaGljaFxm AppgSqYdJLDhXOuhY9ug ZjJcZnMyMlxwYXJ9 Lab Interpretation (test Abnormal code = 37525-0) [facility] Riixkqygwdeouq2620-35-71 18:28:31 Test Item Value Reference Range Interpretation Comments Gross Description (test o2xrfQSbLXCncWH1MORb code = [id number]) PCNaj3zga3DxrVBhbRZg UTomiMXsxbMmyh22rNN5 zR69IB0nSACoZiS6EWCu kbJ8Swp0UMFhXKWjqFQv K356v0qxg1dveyQdwIE0 VTGhYQJsX6FsUZ3hPDPn lYZjE65iaLMsXIM4YHGu IQQzrJGfMVQfTHL0QWRn tFEwX8xtWJLkBQ2dphnv ZLevBWxpZBDmyIC7TRCl eRDgW4OnUYMhIKvfJYWz ntk0ObYpCv1oqDMcxJof HSdlNXFdz8adZDWkzSOz DZW6OFekhOCnZTDnCYCx SWn9EAHhRTwtzXBcZS9p pQcxEoeqjHwnw8EryQOv XGlkIDUxMDAyIFxcZGIg Y1XXIGCwMWVmXxOgIYAn ZRr5FCcnH9ZOCVHmNSD0 NVobGnC7SzD1VUb7MQTY Bg3aLLV8PRWpXFF0IUV7 VOV2LURqUMBqDiYtTIJa IFxcZiBBcmlhbCBcXGZz QYGnWOsrGeNyESmtI11f kQmcqK9kSfgchqSnZVD1 GOLpehxgNCazLqXbP7Bi M0bqKH3vUSPxr1M1yrVp OlxwYXIgMiBEaWZmIFF1 iPt2KHVyGYBlYEJ7YOil YTXbiAYqp6tiNEGkFJHz lDuqUAklcb42JQU0k9bv aWVsZHtcKlxmbGRpbnN0 BCkSJBCLKKgVJcGgRL6q XAgYS4RDNGkGKqowKJX0 WBeofVU5m7oogVLpk9v7 ZEmsAFC8vMQdrAnwvQd7 CJWel1TltQKpbKCohLKo kCB9YHYnGSizz1klHWKd SWpeo0PzGMpJFPMURU7S QP3zcPH7Q8mCXXHKR6wQ pOP5e5wrrHJud0i6LPbx WMP6dYUud17ylAdnVmfu kOV9FXkzHyypkG6hsLIG HTSFLpwDCyugpgIxED9S WGiGRR1AeAQ8y1ijvWFu y3f2XSysERJ4tPlmcJSt whvwaz25WJE4MPVoTgZn V4OhHMXqaRYqNOgkUmus xZS2UKsaAkjdcF9bsVHO GLCRTvjCFnujtvOoMX4V BJZVPZ6PpEL0YhZfmAZ3 KL25EQQoDAZkzUIfBTqs E832JFJpVKybTXIcQoOo X7NtYMDkyeXVZS6DOFMt olAzOIVkb7ptW0r4j80p xBB9PXVeizZrSADzuIfj WhmeC7ghpLTcOPVodRGy YPcuKMZLjIUeXZOypJ9q Tx8urACbpO60OXO1PbC5 GyShQjLYTCS7DIPgaKRn OBRasbJRcRbuJmK9KKKv IGxlZnRcfnJldHJvcGVy sMFvweOkqSMdRNFxt5lk rGtuy1KlgVIpWW97WGSm uIYlEUX8RS8glHkgSZBq ieMBBZMZMPwRJ1DmTPOW RIXAQDXjWaVUHA1wLvP0 UdK9VY97QdmsXYJDUNTC GQpOHP9VFDNXTVJMJF5S VuQyI7wDHWXZLfGqLCXJ HZJUKULlLtOAGJ4gZtp4 Zvflm3P3Y1kLEMTQUvMk ZMPZGPKZCTPxFM6FYROL ZNRDNS1IJJVLT39QMSJB RKHOE9CGX1hAYVYuz4Ss pVonOjD8YnAeEY5xYLlA E9BSN0vGDLWwLAQDGLWU QXKyJY8NRIkMVP1EBDId HOIWMRNXYHYdSwOAKZ4v SLnWNU0ZQIVbDTZOYATA CHBwAL3PLMVUAW0IUCLR SGIKK03ZXEIUBWODH9FU X4fZATIZBOMDRkUVRmTJ NV9GBJYAPNSNFL1UJjJ5 Major Classification MALIGNANT A (test code = 9839) Diagnosis (test code = r0igtOUnQOFtgYX0RAZa 34) YFCfg3uwx3YndAHajMOt JWutuVEgdcOlfq17mSJ8 pS06SW8xUNRoVzQ7OVWw sbT1Mhh2WWEwCAZzqEMr K116o7mvf0hdjsXssGA5 XPDjXWXnY9KtIG0pBISe nIJlC50hpHXvPKV8MBRa OLBmjTGaGPLaUBF6OKGl tCTvR8joXFWnRE0zvolr BOdjUXxaBEKtgUT3JBXp fJTiX1GpQKMfZVwwZLWp qym9SrVsVv0leBMtwPvw FIhgZ4pgfP0aAoI2EHko Y8zvuF6jAQb5NLqdUYWv aDO5qvJ3CJQyyEWdR1Vs wQ5mVQQpPK5mmdm7b1ra FHZ4WBteQBXkUhJ4ogG6 NDBccGFyZFxwbGFpblxm czIwXGNmMSBBLiBSZXRy v5Pcqyo7t84fqW3nZPwo ZnQsIGZpbmUgbmVlZGxl TLRzqQkpONOpz225UIFa bnx9MBCagINzYAugIcEe WWDDMVRCQY0CKFJnG1FJ WWHWG1ZHSFLSHC8LLVDD E77CQHZTJZ4FDRcQXCtz PYAFL7HpBn2AZSzWWOsS KANQA41NUJbrLEDoZ58f bWVudClccGFyfQ== Comment (test code = e8ndvSChTGVpkWC6QSMf 9835) PMGxf3ols4TvhLRtuGIh QJyviXSufqUiet24aEX5 jN04RX9tUHMlShN3OONj yiY7Uym9JYNiTUNzgEBl Q773j8qyl4jixmEryYC6 AWIfMQMrS0UnIA0yHUNj dTRnJ77jaGKrOWK0WONe PFIaqZQjEDGjNSI6CFWn gOVhY6rxFNYpUC9wneld PDucVDziFHIpvUQ9GZOi cHPwF8QhAQBhMWxkBCXv ofj0PpZbEd8hxMWsyGgn MFxwYXJkXHBsYWluXGZz GmUkK2EiMDWkTTXmukNd rE35DEnwkcefSVS6lNPx D9DyNDe9aBWyc2cwUNEr wNhpEzWGjG93UOD4yZ5p ZXRyeSBhbmFseXNpcyAo QlRhAdTzKNL8Kxz1SPXp tN74zpXdjmSsGePtixXy wWITABFtwIyvoO5kaTar zEwuaaInFGLeOGLot3Oz VPnzWVK3JJ99mbxsYW9o QOB9LtIdAX5eTEc3lFFw b6Z7mJWmKJR1xBK3XVda MQZnw5a9tVNlCSLxklFP XLU3LXXDMOBpBEVLKSOk ZGitqI4uEMOpDNXYTBMc NGNwrhTmlV8me7J1tAlt ATocvLQnXGtuK5n7RMXf XMnyVPS3gTbhGUOqSYsl sZp7QFRyk9LmT3R7YcEN cCWrSigcTMziR8Vyv0Tk zH5ehRD6xKCpOANbfbMn HLpbB28ow7lsVfGvmDRv CZEouyTIyNXay3Yle2Dj LCByEFHhe53fuNKlTC63 IGNvcmUgbmVlZGxlIGJp c9PrqCHvYaHrWXSsHBr9 XxodSs0oJXR1teFkBKQq RBEvrCShlFnphe6ayNWk XHLjoionQuAwI7FzbOZm jP1mvhNuOZN7bY7aZNsr UIRojcAklHN2eT9mxHG1 uxO7rSYzYSvpH77gi6hu LiBccGFyXGNmMVxwYXJc C3ErRQDlyr2= Retained/Biomarker o8cfeFXoLLHpmJN8BMFz Testing (test code = SIApa8pzr9GjsUAgyIFq 9838) UOkspZWkuiYaea25qKN3 rK83EL7wESArUlJ3RMLx xnA2Yox9XXNsNMEdcCBh Z688s4lhq8kwwdDlzXK2 zEcqHFPuztqwRcV1GNaw HEGnmwyzJZm5QGdrRFLo zOG8SIYdxMHbY7TzAIJa CG4hwlq3MVE9KShjSUSp RaA5GBFexXRlQMBizOlt IIoka935TAO4DfRbQUXe qxZjvQzedK6iMxIlQIME UjogIDYgUywgIDFDQlxw QDGctQBfQUTjIDPrb72u ldnyzdFMLHZ2lO5oBujy ZSNvnRwrPV9DRXHOCulh ICAgNTAtMzAwICBccGFy IP9EXNGNLJY0MFXMd8Zh m3NbpAPmpNByGONptnCT TEkqCYO8LWPnXz56SVR9 aXRhYmxlIFxwYXIgRklT OFDFDJaxVV1kiJZpkNz7 YWJsZSBccGFyXHBhcmRc cGFyfQ== Informational Points f0kgaUFiRPJakAToGqCy (test code = 9836) IDArBUTyg3ebHNVgiAMw ZzEwMzNcZnRuYmpcdWMx WEThVtNvq0qaj460iWMw d3mbHDUiAbG3sBYlQPCw cBTnM938GKCgUVaux0da s0JxDLXvtUGmx8I9PULB DVcdXDQFEHe8n8wySwIm YlA3qZYyJNsgH8zymkPo aWZiENObZPg2zU17FUTm mF9teISqZGodmuFbAdF6 XJudPWAeFxU5OMLbfHPl ITFuP1gxCMYpNHwnKIAh IKxglPImQQG4yOdxi8B6 bGVzaGVldHtcZjBcZnMy UnDIi7HeGOg0xPhsR3Ic QLUcBbS7nIZxHKAvOImy PCNfKSMvvmN6bE48GQwx anS9cTTrg0Jgq39xr889 eS0mmXFbKAH4HCKjMDKs rEKxLLJzMFC0SONbvCBu D1veXZZdTK1agllzBCrc SModBKPtvQY7TGYarDVe B7OpCINvCVteJMPivyz9 PzLdMs4thALlgPkhQEpz f2bpv1wowHYxBts2FQUd NgMwSegtDNpzd9Scs8jp NCVnyt4mKLI2xPGiiCco r2O5jNIiMACzqYAwkaBt GKYxBeM3XLwsQM5pgk23 BIFnQSP2is7wtHZrnViu rxHyoTRdCXqeG9QkTIYe e557DFSwW2PiPIYim7M8 qzTiPzYnZBKjtRP9jiF5 ODFoQTu8jCYxzuC7tlMu aNBhN0solX4jGBWkFT5s oayyc8myCEiaHPqpBOXj lZQ0vkG1VFPbpDVkF6Xg uC3eFILuYAlpPXLswul8 JjZaEd5bxZGejMjiKXci YmtwYWdlXHBnbmNvbnRc cGduZGVjXHBsYWluXHBs YWluXGYwXGZzMjRccWxc kLibmT9wCbWlQdNpKAfs DI7pWOEsH4zjaOVjIEVb QASdI1vhRbLxvE5mwVeh ALvqgiV0SOyhY84iLQO2 WKJ6uaOcWAUviaHyENHt QUBzZW9tiIHuFIHnCRXi ZL6dQTS8ILngmUAdCPMt AMLmXLPek9AlFA6gSLKd fPDqWPM0WSOlx2KeQ3Zz KOU5ZUSrmJ1qVAZivGVE VCBNRCBBbmRlcnNvbiBQ MCNdh2rkG8quSL7oRLmf Le2dNUHumzdwQOOnnXJp caLoNROdBPJuGVHau3Ok KNcejfDbfq66LXBtPA4r g9LuQ6qfgNHpeAr9IXMr HHGbQLEdl8TwXAMkgr52 JTLfMoocoCtfYLYvSh8x Wj6qRGHcvxKbCOM2NjES IC2zewvoqYJokJyddp1n XHBsYWluXGYyXGZzMjJc bGFuZzEwMzNcaGljaFxm LjphWqNrWIIaSNleO9bm ZjJcZnMyMlxwYXJ9 Lab Interpretation (test Abnormal code = 45656-0) [facility] Otyjlxellhczrg2899-85-77 18:28:31 Test Item Value Reference Range Interpretation Comments Gross Description (test x1hciDNsVELpqCY5BOCq code = [id number]) IOGta7aio7JafBDchAMn RFhsxGWkfyNlah78fLW1 wH68XR8cHONdHxF4ATGd cfZ2Brh6ARXpJMAvoJSo N862d4rji1rjzjKwiZB5 WCNcVCQdH6WxEU1sAGCv qQXgK42srGLwGXW0ZUPk EVWndYAvDNIeHGF4PHQk zZTyN1ffEADgAB7lbiyp RHbsMJumQMJasJV1NMUt mVNsK7SvCEEpLZauMXQo itx3XdFwOd3fxFTavXso UKqfKHDaa4xcNWEsgZLj NZX5MPuklNAlNRJdOYGd MId0KDWdLChkeSIuXZ6o bUpgOhlulNxhn8QqgKUy XGlkIDUxMDAyIFxcZGIg P0OGASBgQVKxOsOaWZMv SFd9TSnlH6QRLMPpZQV2 DBwkMwQ2FhC0QZr2WWYL Be1gJES4ZHXeEEF1KTI8 OFN1CYKzNNTgXbCcUORj IFxcZiBBcmlhbCBcXGZz TDKsWJjpReBsJExeT64q zZuwcD6lBtzdzcJbOIA7 DVQujrzjDWvyWaFvQ1Ue L5akMM4fBWEwa0A8laIh OlxwYXIgMiBEaWZmIFF1 hZk9FROmCUKbJTF6KMya IURolYXsp9dgLGHtMSZo sRtjHBzbbn07ZMP7d7qz aWVsZHtcKlxmbGRpbnN0 VSfLEGAOKZpLXfBpII9v SBvRC7TFTKzYJcjkQHC7 UStejHT1d7rhbZNhc2x3 BGxhPGO4wDUzbZwcuZu0 JRRjk0SeuASskRMqcGAt qOC3WMEiVPwle7ofOLYq AKrnu0ArCAmXZFBXRR4X PO1tuNN3X8iIUONGD1yG xMO7n8ztqYKjg7u5BAef SAE6mTWui28faTfwIczb hPZ0OJcyJuasjT0gqLLN ZMOHLlwXNaurozUsIU4Q PCeMOO2NrQO7n8xivQPm x1l4ESkcSCE4eDndiLNo vaoirf46AOF2KFEfKvKp E5ZrGEAfxVFbDBanIslc wDL1IVdcZctxyR2epWAB CYSWLchSBxpolmPlRO2Y MSZKDS0QkGM0CtChyRR0 VY73QZYrPBPvcJHzYUjl B629UVYmBKrcSRUfJeZu F3HkNDOkneHOSQ8CXNTz egTmCPXlo2rfK4d8d50l pFJ8BHQejtSoAWPomXrc JypfR5umwZNsPPIcoIBw EKskQDCGpLKsYFYhuG3f Uo3ckBDbbV20SKV6NuQ5 FvRaDqTELSZ9HBMmjATr ZPFcfwGQqKsnUtA1ATFu IGxlZnRcfnJldHJvcGVy lVPuijHeiPMiUBGzq1rx wVqhu0WrfAZvRZ34ZXFj gQKjEQB0GB9fbFcsHKAj fdCZMXEDCZtVH1BpABDB VUIEGXGyEnZKDJ2hHeR4 FyK1XR20IpctLEBCHSKE WNhVCH3OTKLHATCXXV3R TlPuU9fQOEXOCtDaENWM UCKEDLUrPzVTUZ2jUoq5 Gkapk7K2T9qIKTWPZpDw YLKGFHKPJLCsGG6DOFLC OFQCWZ8NMVIRZ99RXNQP CCLUH2KTF3aDUMCaf9Uq bUbeXoK1OlAlTS9aPEaC H8LHK9uEZPMnWTFQNKHM JBFrNC4ZDPkEBT6FIFDx LKLKZDRTSLIbWgWQRO5x WDaLHI8CWAGcNOIJUVYL CEGtNQ3MPHUYVX1ENBLH JMYWX69IOODSJSGIB5IR U4mKMQVRKYSSMtJHWuDT FT0SUJSVWPGSLR9BXeH4 Major Classification MALIGNANT A (test code = 9839) Diagnosis (test code = j7jftXYcEUYoeMB6DQTq 34) NVAkl8bgy4MmmMHjwLCw QRnpxQPwupYqej18pPM2 jD61WJ8tMTNoPiX2PRCe wnF3Gwr6JCBeIIFgcWYj R164j8cyu7mfryZpaZQ7 DWOgTKRsV9UrKC7sCVLv mIJeM21iyJVfLKJ2SEVo XNOwtEYbHOHxENC2OATs kJRwE6jdYFOnXS6uzkje MUfmMJriKKGvpQC3BLXk nWUcX6QxYCZjHPwjDSAx jxh6IeDsFe1mpOOscKih VMwnY2zhnE1fDwB0WFal I1ckkM6hAPd3NJgtHJVx gNX7diI6VOHxwSBfW4Wb fY4aMPCvDJ0taqn5j7vq QZQ1FBgmHVJcFsX2swN0 NDBccGFyZFxwbGFpblxm czIwXGNmMSBBLiBSZXRy e5Bukji1n48ycP4nCOno ZnQsIGZpbmUgbmVlZGxl PSTvkMplGVAwz241UGRw eoy9GWXymHVmSQwyVrGx QZANFIAGLW4UNCRzL5PJ OWKRV4MEAXBHUR3DJBIL W37FOIHYET0TWMcSGJnw LFRMG6WkDt7JUDlPKSoS GLEJG37KZTieCGIiB63l bWVudClccGFyfQ== Comment (test code = b1rdgAKaIVPhaPF3HDAz 9835) VWJml0cwp6UkpREwyKUh WMqxlQHamvEhes14bWF1 pI21HH3uDUOdGqQ3TNPj gxS5Krz8UJFwXWQwaLHh U021x1jre6vdztNevMD8 UJIuJHAeM8SbRA3tDKDz fFYrE56buAHhPCV4KEHu QWDteNXsAXFdKZS8YAHg xHIkK3rhQVMuFW5seuae HXvpKAobYOZujPH3FCGp aUCeP5AiWSGqDHjlBUMh mhl7HwQyKe8aaLLhbJgz MFxwYXJkXHBsYWluXGZz PtSfS6SnSJStSRNnfjYj wY77QAzlecekIPB3uMBv B9IuKBn5yBNks8vnUVNc xIiwNvVItR33ADB6uB0z ZXRyeSBhbmFseXNpcyAo GpTdWuEqRYY4Lch8TXJq gY06xfNduqAcFeTpdyOb rKTPFGEqzBxkwW5qeIps cKswpnJgYXGuUHVnw9Gg SOfcXNP2VK41njhsUA1x XHQ2MfViNT2bKKh3sOOy v6R5bUTqHPL5sDG3CWnw OKFex8j6tEUhAPTfzpMG GAV7CYIJNRScEENUVLZh JTkryV9kWHSbOKFCTJCa AMDucqLixU1qt9Y8oGcu QUtqqXBgBMgeE8z5UFDz SUlnKFF9aPmiTCNyEZum jPh1JFNvx7LsT7O5ElDS iYLjXlzvTIypL5Qnb6Oo qR4grDR4eOBlQSSlccTl QDurC41ar6inBsNqtSTd IMFqecQThKHfx5Tey0Nr VLKbQFMur68xvMBpQZ24 IGNvcmUgbmVlZGxlIGJp z6RjbPUwQaCuVDJnJVl9 InkcLf1lXPZ3izCnVOBf YASwsMQegKyhsn8cyDZg EOVeqpbkWbHeY2KxpPWy iM7ykvHnQNN1oN1aBKuc LUCbaeXfkDM3mI9pwSX5 mrX6vKLvRFkyI37wb4js LiBccGFyXGNmMVxwYXJc C7DuFPZviu1= Retained/Biomarker c4qxnMZaAXQktXD3VOGw Testing (test code = FQGql2ckq2MweOOjlGDg 9851) NSmyqEEmrxOhfw19lYX5 rG35DY9cUXHvMyC7OXLx osI7Ipi1VYAeIJUyvBSm Y727g1ilu3xwxhCgnID6 wZfoTGLfmfwjNlN2DYxd LAPrdgreSHs8CFewDOZv pUY6IEPaxKSnI5OqIXTj MZ7vnmu2RIY0YHdrJQFq GzX4KDGafQGiWCScpGxf YWfit342ZIS7DyClXDOs rsJjgCqgaG9bZsPlXFII UjogIDYgUywgIDFDQlxw VHDwlAXmJIYzYPNjr87y jabmwsXRCZK3jV0dVapu PKBexOiiDV7DHXKRTccn ICAgNTAtMzAwICBccGFy FB7IPMEKMZK9YCVGj8Ez f9PewUChnKFyCDMnnmTR SGpjBEA7YFXqRr26LWM5 aXRhYmxlIFxwYXIgRklT XIBVDFphAV5gpFWrbZe6 YWJsZSBccGFyXHBhcmRc cGFyfQ== Informational Points s7aklZCwDUAkbXJeGzBs (test code = 9836) KUKaHUJis7psUBVpqCBv ZzEwMzNcZnRuYmpcdWMx WMDzMzOlc9rev917yFHm s3udIYXsOpH7gHYrLVRi mMBuE195WGSfHPsqi9vw b9EiBDYznIHur5G6VHIX EYssBANUZZd3k2yjDlKi RwO6wGPjKAmrG6jihwZa wWFxPUVmMEt7qH02XJEc bX8olBPeTEzggrGvGvV7 UAghIAFoCpO4GPSaaMTx BTKoY8yiOMFqNPvaPVBg BZqdtOVxZMG0eTnot2N0 bGVzaGVldHtcZjBcZnMy XcTYj3WbVTn8jUwkU4Yz RURwAiJ6iQCoUSSjIYua BYGeTOEifrH2wS60FUmy ecG1kELde2Uda15lw056 fX1xfJNtZKG2MSKkBMRb mUAqJZEhGJC9GYXjdVVl O4enILLsVD0vpazyCBsb DAtuLTNbfSH6TSReqBPg T6JbBLUzNNrxUIVkzug3 VsSmGo6gkVBmpJcwNYxn j4mlf8mdiODtZsi2UHMz AyAhWstkLTqrw6Twn2lq BOOyts5qOWH1eKIamXsf r4L6iNEqDGGueDHjkqLh YGQxLpE7WVntIV7zvz39 OYEeEUK6ne2alURalVkx fbYfoMQgYMelA5BmZWWf b745LIEuP0SzLCGtc9J9 goQbKqDmZZVkhNR0znH3 VUOnYYh4tPSqgkH0kwWt lUYnT1jjdZ1fTPDwXJ9k egaxu1fsJOayRPgxCVLh oYU4krX4KSThdVVjS3Qv pD6xKELzNCenCHMvmua9 GzGpIu1msSCtkYrzNHyy YmtwYWdlXHBnbmNvbnRc cGduZGVjXHBsYWluXHBs YWluXGYwXGZzMjRccWxc tZokyY2yHlVaUbFyMOcy HC8rMKYxF5trqNDpEJSs PIXlB8bnJzRahY9phJdu VGoohvZ4KXchW27gMII8 AXQ5whLgRRLhlhZmMLZz XAYdFL8esFRrRLKgZKTy ZF8nVCY4XKznwICoRKTe GTMuPRCcf8BpAB2lHZEk nWGpIRH9DHNgp5PbX4Rh ERB3JVUapX1dDJVcgHAR VCBNRCBBbmRlcnNvbiBQ UIAro0xjO2dpFZ1mGFyr Vx2fAIVpcbadPLQaxQGq oiYrGRAoJUUxGAMok9Mz QYbypmLrhz79JVDlFT3s z8AyV6rluKJtlEx8URQu ASAsDKHde6IvZROfyl59 XDBwAsaqxJsrIGLuDc0a Mo3cTYMcgdRbEDU8WsUH LI5wlvoaxHOkqFkcql0r XHBsYWluXGYyXGZzMjJc bGFuZzEwMzNcaGljaFxm FvfyZvOtUIKcLGvsC1ae ZjJcZnMyMlxwYXJ9 Lab Interpretation (test Abnormal code = 14359-3) [facility] Total Ig Core Ab (SCREENING) (anti-HBc total Ig; HBcAb total Ig)2021-09-21 18:10:06 Test Item Value Reference Range Interpretation Comments HBcAb. (test code = 5742) Reactive Non Reactive A Lab Interpretation (test code = Abnormal 71669-4) [facility] Total Ig Core Ab (SCREENING) (anti-HBc total Ig; HBcAb total Ig)2021-09-21 18:10:06 Test Item Value Reference Range Interpretation Comments HBcAb. (test code = 5742) Reactive Non Reactive A Lab Interpretation (test code = Abnormal 01962-8) [facility] B Total Ig Core Ab (SCREENING) (anti-HBc total Ig; HBcAb total Ig)2021-09-21 18:10:06 Test Item Value Reference Range Interpretation Comments HBcAb. (test code = 5742) Reactive Non Reactive A Lab Interpretation (test code = Abnormal 08512-3) [facility] B Total Ig Core Ab (SCREENING) (anti-HBc total Ig; HBcAb total Ig)2021-09-21 18:10:06 Test Item Value Reference Range Interpretation Comments HBcAb. (test code = 5742) Reactive Non Reactive A Lab Interpretation (test code = Abnormal 94162-4) [facility] B Total Ig Core Ab (SCREENING) (anti-HBc total Ig; HBcAb total Ig)2021-09-21 18:10:06 Test Item Value Reference Range Interpretation Comments HBcAb. (test code = 5742) Reactive Non Reactive A Lab Interpretation (test code = Abnormal 80257-4) [facility] B Total Ig Core Ab (SCREENING) (anti-HBc total Ig; HBcAb total Ig)2021-09-21 18:10:06 Test Item Value Reference Range Interpretation Comments HBcAb. (test code = 5742) Reactive Non Reactive A Lab Interpretation (test code = Abnormal 62527-9) [facility] B Total Ig Core Ab (SCREENING) (anti-HBc total Ig; HBcAb total Ig)2021-09-21 18:10:06 Test Item Value Reference Range Interpretation Comments HBcAb. (test code = 5742) Reactive Non Reactive A Lab Interpretation (test code = Abnormal 35009-9) [facility] B Total Ig Core Ab (SCREENING) (anti-HBc total Ig; HBcAb total Ig)2021-09-21 18:10:06 Test Item Value Reference Range Interpretation Comments HBcAb. (test code = 5742) Reactive Non Reactive A Lab Interpretation (test code = Abnormal 98956-1) [facility] B Surface Antibody 2021-09-21 16:44:25 Test Item Value Reference Range Interpretation Comments HBs Ab (test code = 32159) Reactive Non Reactive A Lab Interpretation (test code = Abnormal 13075-0) [facility] Surface Antibody 2021-09-21 16:44:25 Test Item Value Reference Range Interpretation Comments HBs Ab (test code = 50373) Reactive Non Reactive A Lab Interpretation (test code = Abnormal 54561-7) [facility] Surface Antibody 2021-09-21 16:44:25 Test Item Value Reference Range Interpretation Comments HBs Ab (test code = 46286) Reactive Non Reactive A Lab Interpretation (test code = Abnormal 67752-7) [facility] Surface Antibody 2021-09-21 16:44:25 Test Item Value Reference Range Interpretation Comments HBs Ab (test code = 44230) Reactive Non Reactive A Lab Interpretation (test code = Abnormal 56990-0) [facility] B Surface Antibody 2021-09-21 16:44:25 Test Item Value Reference Range Interpretation Comments HBs Ab (test code = 13870) Reactive Non Reactive A Lab Interpretation (test code = Abnormal 30117-9) [facility] B Surface Antibody 2021-09-21 16:44:25 Test Item Value Reference Range Interpretation Comments HBs Ab (test code = 53189) Reactive Non Reactive A Lab Interpretation (test code = Abnormal 22322-2) [facility] B Surface Antibody 2021-09-21 16:44:25 Test Item Value Reference Range Interpretation Comments HBs Ab (test code = 30210) Reactive Non Reactive A Lab Interpretation (test code = Abnormal 25820-1) [facility] B Surface Antibody 2021-09-21 16:44:25 Test Item Value Reference Range Interpretation Comments HBs Ab (test code = 15832) Reactive Non Reactive A Lab Interpretation (test code = Abnormal 45766-9) [facility] C Virus [id number] 16:44:03 Test Item Value Reference Range Interpretation Comments HCVAb. (test code = Reactive Non Reactive A Antibody detection in 5762) the immunocompr omised and immunosuppr essed population may be delayed or abse nt entirely. There fore serial testing, correlation wit h other clinical findin gs, and supplemental te sting (if available) shou ld be taken into cons ideration when interpreti ng the results. Lab Interpretation Abnormal (test code = 09109-0) [facility] [id number] 16:44:03 Test Item Value Reference Range Interpretation Comments HCVAb. (test code = Reactive Non Reactive A Antibody detection in 5762) the immunocompr omised and immunosuppr essed population may be delayed or abse nt entirely. There fore serial testing, correlation wit h other clinical findin gs, and supplemental te sting (if available) shou ld be taken into cons ideration when interpreti ng the results. Lab Interpretation Abnormal (test code = 97921-2) [facility] [id number] 16:44:03 Test Item Value Reference Range Interpretation Comments HCVAb. (test code = Reactive Non Reactive A Antibody detection in 5762) the immunocompr omised and immunosuppr essed population may be delayed or abse nt entirely. There fore serial testing, correlation wit h other clinical findin gs, and supplemental te sting (if available) shou ld be taken into cons ideration when interpreti ng the results. Lab Interpretation Abnormal (test code = 04187-0) [facility] [id number] 16:44:03 Test Item Value Reference Range Interpretation Comments HCVAb. (test code = Reactive Non Reactive A Antibody detection in 5762) the immunocompr omised and immunosuppr essed population may be delayed or abse nt entirely. There fore serial testing, correlation wit h other clinical findin gs, and supplemental te sting (if available) shou ld be taken into cons ideration when interpreti ng the results. Lab Interpretation Abnormal (test code = 46065-7) [facility] [id number] 16:44:03 Test Item Value Reference Range Interpretation Comments HCVAb. (test code = Reactive Non Reactive A Antibody detection in 5762) the immunocompr omised and immunosuppr essed population may be delayed or abse nt entirely. There fore serial testing, correlation wit h other clinical findin gs, and supplemental te sting (if available) shou ld be taken into cons ideration when interpreti ng the results. Lab Interpretation Abnormal (test code = 96503-8) [facility] [id number] 16:44:03 Test Item Value Reference Range Interpretation Comments HCVAb. (test code = Reactive Non Reactive A Antibody detection in 5762) the immunocompr omised and immunosuppr essed population may be delayed or abse nt entirely. There fore serial testing, correlation wit h other clinical findin gs, and supplemental te sting (if available) shou ld be taken into cons ideration when interpreti ng the results. Lab Interpretation Abnormal (test code = 95364-8) [facility] [id number] 16:44:03 Test Item Value Reference Range Interpretation Comments HCVAb. (test code = Reactive Non Reactive A Antibody detection in 5762) the immunocompr omised and immunosuppr essed population may be delayed or abse nt entirely. There fore serial testing, correlation wit h other clinical findin gs, and supplemental te sting (if available) shou ld be taken into cons ideration when interpreti ng the results. Lab Interpretation Abnormal (test code = 81356-1) [facility] CenterHep[facility] Virus [id number] 16:44:03 Test Item Value Reference Range Interpretation Comments HCVAb. (test code = Reactive Non Reactive A Antibody detection in 5762) the immunocompr omised and immunosuppr essed population may be delayed or abse nt entirely. There fore serial testing, correlation wit h other clinical findin gs, and supplemental te sting (if available) shou ld be taken into cons ideration when interpreti ng the results. Lab Interpretation Abnormal (test code = 65536-2) [facility] CenterHepatitis B Surface [id number] 16:42:33 Test Item Value Reference Range Interpretation Comments HBsAg. (test code = 5747) Non Reactive Non Reactive [facility]Hep[facility] B Surface [id number] 16:42:33 Test Item Value Reference Range Interpretation Comments HBsAg. (test code = 5747) Non Reactive Non Reactive [facility]Hep[facility] Surface [id number] 16:42:33 Test Item Value Reference Range Interpretation Comments HBsAg. (test code = 5747) Non Reactive Non Reactive [facility]Hep[facility] B Surface [id number] 16:42:33 Test Item Value Reference Range Interpretation Comments HBsAg. (test code = 5747) Non Reactive Non Reactive [facility]Hep[facility] Surface [id number] 16:42:33 Test Item Value Reference Range Interpretation Comments HBsAg. (test code = 5747) Non Reactive Non Reactive [facility] Surface [id number] 16:42:33 Test Item Value Reference Range Interpretation Comments HBsAg. (test code = 5747) Non Reactive Non Reactive [facility] CenterHepatitis B Surface [id number] 16:42:33 Test Item Value Reference Range Interpretation Comments HBsAg. (test code = 5747) Non Reactive Non Reactive [facility] B Surface [id number] 16:42:33 Test Item Value Reference Range Interpretation Comments HBsAg. (test code = 5747) Non Reactive Non Reactive [facility] CenterCyclic Citrullinated Peptide Ab 2021-09-19 00:43:53 Test Item Value Reference Range Interpretation Comments CCP Ab-Sanchez (test <15.6 See_Comment Test Perf ormed by:Wilmerding code = 76494-6) [facility] [employer] [id number] [place], [place] [address]Lab Director: Jose L Nieto M.D. Ph.D.; CLI A# [id number] [Automated mess age] The system which ge nerated this result transmit elbert reference range: <20.0 (N egative) Units. The refe rence range was not used to interpret this result as normal/abnormal . [facility] CenterCyclic Citrullinated Peptide Ab 2021-09-19 00:43:53 Test Item Value Reference Range Interpretation Comments CCP Ab-Sanchez (test <15.6 See_Comment Test Perf ormed by:Wilmerding code = 67105-4) [facility] [employer] Edcnm[address] [place], [place] [address]Lab Director: Jose L Nieto M.D. Ph.D.; CLI A# [id number] [Automated mess age] The system which ge nerated this result transmit elbert reference range: <20.0 (N egative) Units. The refe rence range was not used to interpret this result as normal/abnormal . [facility] CenterCycl[facility] Citrullinated Peptide Ab 2021-09-19 00:43:53 Test Item Value Reference Range Interpretation Comments CCP Ab-Sanchez (test <15.6 See_Comment Test Perf ormed by:Wilmerding code = 11709-9) [facility] [id number] [place] [address]Lab Director: Jose L Nieto M.D. Ph.D.; CLI A# [id number] [Automated mess age] The system which ge nerated this result transmit elbert reference range: <20.0 (N egative) Units. The refe rence range was not used to interpret this result as normal/abnormal . [facility] CenterCycl[facility] Citrullinated Peptide Ab 2021-09-19 00:43:53 Test Item Value Reference Range Interpretation Comments CCP Ab-Sanchez (test <15.6 See_Comment Test Perf ormed by:Wilmerding code = 63572-5) [facility] [id number] [place] [address]Lab Director: Jose L Nieto M.D. Ph.D.; CLI A# [id number] [Automated mess age] The system which ge nerated this result transmit elbert reference range: <20.0 (N egative) Units. The refe rence range was not used to interpret this result as normal/abnormal . [facility] CenterCycl[facility] Citrullinated Peptide Ab 2021-09-19 00:43:53 Test Item Value Reference Range Interpretation Comments CCP Ab-Sanchez (test <15.6 See_Comment Test Perf ormed by:Wilmerding code = 19842-9) [facility] [id number] [place] [address]Lab Director: Jose L Nieto M.D. Ph.D.; CLI A# [id number] [Automated mess age] The system which ge nerated this result transmit elbert reference range: <20.0 (N egative) Units. The refe rence range was not used to interpret this result as normal/abnormal . [facility] CenterCycl[facility] Citrullinated Peptide Ab 2021-09-19 00:43:53 Test Item Value Reference Range Interpretation Comments CCP Ab-Sanchez (test <15.6 See_Comment Test Perf ormed by:Wilmerding code = 99216-5) [facility] [id number] [place] [address]Lab Director: Jose L Nieto M.D. Ph.D.; CLI A# [id number] [Automated mess age] The system which ge nerated this result transmit elbert reference range: <20.0 (N egative) Units. The refe rence range was not used to interpret this result as normal/abnormal . [facility] CenterCycl[facility] Citrullinated Peptide Ab 2021-09-19 00:43:53 Test Item Value Reference Range Interpretation Comments CCP Ab-Sanchez (test <15.6 See_Comment Test Perf ormed by:Wilmerding code = 88899-5) [place] [address]Lab Director: Jose L Nieto M.D. Ph.D.; CLI A# [id number] [Automated mess age] The system which ge nerated this result transmit elbert reference range: <20.0 (N egative) Units. The refe rence range was not used to interpret this result as normal/abnormal . [facility] CenterCycl[facility] Citrullinated Peptide Ab 2021-09-19 00:43:53 Test Item Value Reference Range Interpretation Comments CCP Ab-Sanchez (test <15.6 See_Comment Test Perf ormed by:Wilmerding code = 13574-7) [facility] [id number] [place] [address]Lab Director: Jose L Nieto M.D. Ph.D.; CLI A# [id number] [Automated mess age] The system which ge nerated this result transmit elbert reference range: <20.0 (N egative) Units. The refe rence range was not used to interpret this result as normal/abnormal . [facility] CenterRheumatoid Factor [id number] 10:11:48 Test Item Value Reference Range Interpretation Comments Rheumatoid Factor (test 25 See_Comment H [Au tomated message] code = 54236-1) The system w [facility] generated this result transmitted ref erence range: <=14 IU/ mL. The reference r sam was not used to interpret this result as normal/abnor mal. Lab Interpretation (test Abnormal code = 54972-5) [facility] CenterRheumatoid Factor [id number] 10:11:48 Test Item Value Reference Range Interpretation Comments Rheumatoid Factor (test 25 See_Comment H [Au tomated message] code = 18276-2) The system [employer] generated this result transmitted ref erence range: <=14 IU/ mL. The reference r sam was not used to interpret this result as normal/abnor mal. Lab Interpretation (test Abnormal code = 40705-7) [facility] CenterRheumat[facility] Factor [id number] 10:11:48 Test Item Value Reference Range Interpretation Comments Rheumatoid Factor (test 25 See_Comment H [Au tomated message] code = 88554-2) The system [employer] generated this result transmitted ref erence range: <=14 IU/ mL. The reference r sam was not used to interpret this result as normal/abnor mal. Lab Interpretation (test Abnormal code = 04874-8) [facility] CenterRheumat[facility] Factor [id number] 10:11:48 Test Item Value Reference Range Interpretation Comments Rheumatoid Factor (test 25 See_Comment H [Au tomated message] code = 01226-1) The system [employer] generated this result transmitted ref erence range: <=14 IU/ mL. The reference r sam was not used to interpret this result as normal/abnor mal. Lab Interpretation (test Abnormal code = 14354-8) [facility] CenterRhe[facility] Factor [id number] 10:11:48 Test Item Value Reference Range Interpretation Comments Rheumatoid Factor (test 25 See_Comment H [Au tomated message] code = 59785-2) The system [employer] generated this result transmitted ref erence range: <=14 IU/ mL. The reference r sam was not used to interpret this result as normal/abnor mal. Lab Interpretation (test Abnormal code = 03392-9) [facility] CenterRhe[facility] Factor [id number] 10:11:48 Test Item Value Reference Range Interpretation Comments Rheumatoid Factor (test 25 See_Comment H [Au tomated message] code = 07494-8) The system [employer] generated this result transmitted ref erence range: <=14 IU/ mL. The reference r sam was not used to interpret this result as normal/abnor mal. Lab Interpretation (test Abnormal code = 85933-4) [facility] CenterRhe[facility] Factor [id number] 10:11:48 Test Item Value Reference Range Interpretation Comments Rheumatoid Factor (test 25 See_Comment H [Au tomated message] code = 65658-9) The system [employer] generated this result transmitted ref erence range: <=14 IU/ mL. The reference r sam was not used to interpret this result as normal/abnor mal. Lab Interpretation (test Abnormal code = 05475-7) [facility] CenterR[facility] Factor [id number] 10:11:48 Test Item Value Reference Range Interpretation Comments Rheumatoid Factor (test 25 See_Comment H [Au tomated message] code = 12131-2) The system [employer] generated this result transmitted ref erence range: <=14 IU/ mL. The reference r sam was not used to interpret this result as normal/abnor mal. Lab Interpretation (test Abnormal code = 45883-7) [facility] [id number] 19:37:46 Test Item Value Reference Range Interpretation Comments Sed Rate (test code = 34 See_Comment H [Auto mated message] 4537-7) The system [employer] generated this result transmitted ref erence range: 0 - 9 mm /hr. The reference r sam was not used to interpret this result as normal/abnor mal. Lab Interpretation (test Abnormal code = 00864-8) [facility] [id number] 19:37:46 Test Item Value Reference Range Interpretation Comments Sed Rate (test code = 34 See_Comment H [Auto mated message] 4537-7) The system [employer] generated this result transmitted ref erence range: 0 - 9 mm /hr. The reference r sam was not used to interpret this result as normal/abnor mal. Lab Interpretation (test Abnormal code = 58278-7) [facility] [id number] 19:37:46 Test Item Value Reference Range Interpretation Comments Sed Rate (test code = 34 See_Comment H [Auto mated message] 3927-7) The system [employer] generated this result transmitted ref erence range: 0 - 9 mm /hr. The reference r sam was not used to interpret this result as normal/abnor mal. Lab Interpretation (test Abnormal code = 86953-5) [facility] [id number] 19:37:46 Test Item Value Reference Range Interpretation Comments Sed Rate (test code = 34 See_Comment H [Auto mated message] 6087-7) The system [employer] generated this result transmitted ref erence range: 0 - 9 mm /hr. The reference r sam was not used to interpret this result as normal/abnor mal. Lab Interpretation (test Abnormal code = 45826-3) [facility] [id number] 19:37:46 Test Item Value Reference Range Interpretation Comments Sed Rate (test code = 34 See_Comment H [Auto mated message] 9575-7) The system [employer] generated this result transmitted ref erence range: 0 - 9 mm /hr. The reference r sam was not used to interpret this result as normal/abnor mal. Lab Interpretation (test Abnormal code = 41891-7) [facility] [id number] 19:37:46 Test Item Value Reference Range Interpretation Comments Sed Rate (test code = 34 See_Comment H [Auto mated message] 0407-7) The system [employer] generated this result transmitted ref erence range: 0 - 9 mm /hr. The reference r sam was not used to interpret this result as normal/abnor mal. Lab Interpretation (test Abnormal code = 99611-2) [facility] [id number] 19:37:46 Test Item Value Reference Range Interpretation Comments Sed Rate (test code = 34 See_Comment H [Auto mated message] 5997-7) The system [employer] generated this result transmitted ref erence range: 0 - 9 mm /hr. The reference r sam was not used to interpret this result as normal/abnor mal. Lab Interpretation (test Abnormal code = 36564-5) [facility] [id number] 19:37:46 Test Item Value Reference Range Interpretation Comments Sed Rate (test code = 34 See_Comment H [Auto mated message] 4537-7) The system whic h generated this result transmitted ref erence range: 0 - 9 mm /hr. The reference r sam was not used to interpret this result as normal/abnor mal. Lab Interpretation (test Abnormal code = 85764-1) [facility] CenterTSH2022-05-19 12:51:41 Test Item Value Reference Range Interpretation Comments TSH (test code = 3.39 See_Comment [Automated message] The 49225-9) system which ge nerated this result transmit elbert reference range : 0.27 - 4.20 mcunit/mL. The reference range was not used to interpr et this result as nataly l/abnormal. [facility] CenterTSH2022-[facility] 12:51:41 Test Item Value Reference Range Interpretation Comments TSH (test code = 3.39 See_Comment [Automated message] The 30529-9) system which ge nerated this result transmit elbert reference range : 0.27 - 4.20 mcunit/mL. The reference range was not used to interpr et this result as nataly l/abnormal. [facility] CenterTSH[facility] 12:51:41 Test Item Value Reference Range Interpretation Comments TSH (test code = 3.39 See_Comment [Automated message] The 22407-0) system which ge nerated this result transmit elbert reference range : 0.27 - 4.20 mcunit/mL. The reference range was not used to interpr et this result as nataly l/abnormal. [place] [id number] 12:51:41 Test Item Value Reference Range Interpretation Comments TSH (test code = 3.39 See_Comment [Automated message] The 21279-2) system which ge nerated this result transmit elbert reference range : 0.27 - 4.20 mcunit/mL. The reference range was not used to interpr et this result as nataly l/abnormal. [place] [id number] 12:51:41 Test Item Value Reference Range Interpretation Comments TSH (test code = 3.39 See_Comment [Automated message] The 96951-1) system which ge nerated this result transmit elbert reference range : 0.27 - 4.20 mcunit/mL. The reference range was not used to interpr et this result as nataly l/abnormal. [place] [id number] 12:51:41 Test Item Value Reference Range Interpretation Comments TSH (test code = 3.39 See_Comment [Automated message] The 76493-5) system which ge nerated this result transmit elbert reference range : 0.27 - 4.20 mcunit/mL. The reference range was not used to interpr et this result as nataly l/abnormal. [place] [id number] 12:51:41 Test Item Value Reference Range Interpretation Comments TSH (test code = 3.39 See_Comment [Automated message] The 73447-5) system which ge nerated this result transmit elbert reference range : 0.27 - 4.20 mcunit/mL. The reference range was not used to interpr et this result as nataly l/abnormal. [place] 97055022-05-19 12:51:41 Test Item Value Reference Range Interpretation Comments TSH (test code = 3.39 See_Comment [Automated message] The 68356-9) system which ge nerated this result transmit elbert reference range : 0.27 - 4.20 mcunit/mL. The reference range was not used to interpr et this result as nataly l/abnormal. [facility] CenterFerritin [id number] 12:51:40 Test Item Value Reference Range Interpretation Comments Ferritin Lvl (test code = 2276-4) 1386 ng/mL 30-400 H Lab Interpretation (test code = Abnormal 76965-3) [facility] CenterFer[facility]in [id number] 12:51:40 Test Item Value Reference Range Interpretation Comments Ferritin Lvl (test code = 2276-4) 1386 ng/mL 30-400 H Lab Interpretation (test code = Abnormal 10348-2) [facility] Center[facility] [id number] 12:51:40 Test Item Value Reference Range Interpretation Comments Ferritin Lvl (test code = 2276-4) 1386 ng/mL 30-400 H Lab Interpretation (test code = Abnormal 89965-8) [facility] CenterFer[facility] [id number] 12:51:40 Test Item Value Reference Range Interpretation Comments Ferritin Lvl (test code = 2276-4) 1386 ng/mL 30-400 H Lab Interpretation (test code = Abnormal 12366-6) [facility] Center[facility] [id number] 12:51:40 Test Item Value Reference Range Interpretation Comments Ferritin Lvl (test code = 2276-4) 1386 ng/mL 30-400 H Lab Interpretation (test code = Abnormal 67763-5) [facility] CenterFer[facility] [id number] 12:51:40 Test Item Value Reference Range Interpretation Comments Ferritin Lvl (test code = 2276-4) 1386 ng/mL 30-400 H Lab Interpretation (test code = Abnormal 86723-5) [facility] Center[facility] [id number] 12:51:40 Test Item Value Reference Range Interpretation Comments Ferritin Lvl (test code = 2276-4) 1386 ng/mL 30-400 H Lab Interpretation (test code = Abnormal 81609-2) [facility] Center[facility] [id number] 12:51:40 Test Item Value Reference Range Interpretation Comments Ferritin Lvl (test code = 2276-4) 1386 ng/mL 30-400 H Lab Interpretation (test code = Abnormal 32472-5) [facility] CenterFree [id number] 12:51:39 Test Item Value Reference Range Interpretation Comments T4 Free (test code = 3024-7) 1.21 ng/dL 0.93-1.70 [facility] CenterFr [id number] 12:51:39 Test Item Value Reference Range Interpretation Comments T4 Free (test code = 3024-7) 1.21 ng/dL 0.93-1.70 [facility] [id number] 12:51:39 Test Item Value Reference Range Interpretation Comments T4 Free (test code = 3024-7) 1.21 ng/dL 0.93-1.70 [facility] [id number] 12:51:39 Test Item Value Reference Range Interpretation Comments T4 Free (test code = 3024-7) 1.21 ng/dL 0.93-1.70 [facility] 12:51:39 Test Item Value Reference Range Interpretation Comments T4 Free (test code = 3024-7) 1.21 ng/dL 0.93-1.70 [facility] 12:51:39 Test Item Value Reference Range Interpretation Comments T4 Free (test code = 3024-7) 1.21 ng/dL 0.93-1.70 [facility] 12:51:39 Test Item Value Reference Range Interpretation Comments T4 Free (test code = 3024-7) 1.21 ng/dL 0.93-1.70 [facility] 12:51:39 Test Item Value Reference Range Interpretation Comments T4 Free (test code = 3024-7) 1.21 ng/dL 0.93-1.70 [facility] CenterHemoglobin [id number] 12:50:43 Test Item Value Reference Range Interpretation Comments A1C (test code = 5.3 % 4.3-5.6 HbA1c value s >=6.5% are 4548-4) diagnostic of d iabetes mellitus.Diagno sis should be confirmed by repeat testing.Therape utic Action suggested: >8.0 % HbA1c; Goal oftherapy: <7.0% HbA1c [facility] CenterHemoglobin [id number] 12:50:43 Test Item Value Reference Range Interpretation Comments A1C (test code = 5.3 % 4.3-5.6 HbA1c value s >=6.5% are 4548-4) diagnostic of d iabetes mellitus.Diagno sis should be confirmed by repeat testing.Therape utic Action suggested: >8.0 % HbA1c; Goal oftherapy: <7.0% HbA1c [facility] CenterHemoglobin [id number] 12:50:43 Test Item Value Reference Range Interpretation Comments A1C (test code = 5.3 % 4.3-5.6 HbA1c value s >=6.5% are 4548-4) diagnostic of d iabetes mellitus.Diagno sis should be confirmed by repeat testing.Therape utic Action suggested: >8.0 % HbA1c; Goal oftherapy: <7.0% HbA1c [facility] CenterHemoglobin [id number] 12:50:43 Test Item Value Reference Range Interpretation Comments A1C (test code = 5.3 % 4.3-5.6 HbA1c value s >=6.5% are 4548-4) diagnostic of d iabetes mellitus.Diagno sis should be confirmed by repeat testing.Therape utic Action suggested: >8.0 % HbA1c; Goal oftherapy: <7.0% HbA1c [facility] CenterHemoglobin [id number] 12:50:43 Test Item Value Reference Range Interpretation Comments A1C (test code = 5.3 % 4.3-5.6 HbA1c value s >=6.5% are 4548-4) diagnostic of d iabetes mellitus.Diagno sis should be confirmed by repeat testing.Therape utic Action suggested: >8.0 % HbA1c; Goal oftherapy: <7.0% HbA1c [facility] CenterHemoglobin [id number] 12:50:43 Test Item Value Reference Range Interpretation Comments A1C (test code = 5.3 % 4.3-5.6 HbA1c value s >=6.5% are 4548-4) diagnostic of d iabetes mellitus.Diagno sis should be confirmed by repeat testing.Therape utic Action suggested: >8.0 % HbA1c; Goal oftherapy: <7.0% HbA1c [facility] CenterHemoglobin [id number] 12:50:43 Test Item Value Reference Range Interpretation Comments A1C (test code = 5.3 % 4.3-5.6 HbA1c value s >=6.5% are 4548-4) diagnostic of d iabetes mellitus.Diagno sis should be confirmed by repeat testing.Therape utic Action suggested: >8.0 % HbA1c; Goal oftherapy: <7.0% HbA1c [facility] CenterHemoglobin [id number] 12:50:43 Test Item Value Reference Range Interpretation Comments A1C (test code = 5.3 % 4.3-5.6 HbA1c value s >=6.5% are 4548-4) diagnostic of d iabetes mellitus.Diagno sis should be confirmed by repeat testing.Therape utic Action suggested: >8.0 % HbA1c; Goal oftherapy: <7.0% HbA1c [facility] CenterTransferrin with [id number] 12:49:30 Test Item Value Reference Range Interpretation Comments Transferrin (test code = 180 mg/dL 200-360 L 3034-6) TIBC (test code = 252 See_Comment [Automate d message] 2500-7) The system [employer] generated this result transmit elbert reference range : 250 - 450 mcg/dL. T he reference range was not used to interpret this result as normal/abnormal . Lab Interpretation (test Abnormal code = 09548-5) [facility] CenterTransferrin with [id number] 12:49:30 Test Item Value Reference Range Interpretation Comments Transferrin (test code = 180 mg/dL 200-360 L 3034-6) TIBC (test code = 252 See_Comment [Automate d message] 2500-7) The system [employer] generated this result transmit elbert reference range : 250 - 450 mcg/dL. T he reference range was not used to interpret this result as normal/abnormal . Lab Interpretation (test Abnormal code = 70535-7) [facility] CenterTransferrin with [id number] 12:49:30 Test Item Value Reference Range Interpretation Comments Transferrin (test code = 180 mg/dL 200-360 L 3034-6) TIBC (test code = 252 See_Comment [Automate d message] 2500-7) The system Exhbit generated this result transmit elbert reference range : 250 - 450 mcg/dL. T he reference range was not used to interpret this result as normal/abnormal . Lab Interpretation (test Abnormal code = 05458-4) [facility] [id number] 12:49:30 Test Item Value Reference Range Interpretation Comments Transferrin (test code = 180 mg/dL 200-360 L 3034-6) TIBC (test code = 252 See_Comment [Automate d message] 2500-7) The system Exhbit generated this result transmit elbert reference range : 250 - 450 mcg/dL. T he reference range was not used to interpret this result as normal/abnormal . Lab Interpretation (test Abnormal code = 10465-8) [facility] [id number] 12:49:30 Test Item Value Reference Range Interpretation Comments Transferrin (test code = 180 mg/dL 200-360 L 3034-6) TIBC (test code = 252 See_Comment [Automate d message] 2500-7) The system Exhbit generated this result transmit elbert reference range : 250 - 450 mcg/dL. T he reference range was not used to interpret this result as normal/abnormal . Lab Interpretation (test Abnormal code = 26168-3) [facility] [id number] 12:49:30 Test Item Value Reference Range Interpretation Comments Transferrin (test code = 180 mg/dL 200-360 L 3034-6) TIBC (test code = 252 See_Comment [Automate d message] 2500-7) The system Exhbit generated this result transmit elbert reference range : 250 - 450 mcg/dL. T he reference range was not used to interpret this result as normal/abnormal . Lab Interpretation (test Abnormal code = 44350-8) [facility] [id number] 12:49:30 Test Item Value Reference Range Interpretation Comments Transferrin (test code = 180 mg/dL 200-360 L 3034-6) TIBC (test code = 252 See_Comment [Automate d message] 2500-7) The system Exhbit generated this result transmit elbetr reference range : 250 - 450 mcg/dL. T he reference range was not used to interpret this result as normal/abnormal . Lab Interpretation (test Abnormal code = 90563-3) [facility] [id number] 12:49:30 Test Item Value Reference Range Interpretation Comments Transferrin (test code = 180 mg/dL 200-360 L 3034-6) TIBC (test code = 252 See_Comment [Automate d message] 2500-7) The system Exhbit generated this result transmit elbert reference range : 250 - 450 mcg/dL. T he reference range was not used to interpret this result as normal/abnormal . Lab Interpretation (test Abnormal code = 16817-7) [facility] [id number] 12:49:29 Test Item Value Reference Range Interpretation Comments Iron (test code = 77 See_Comment [Automate d message] [facility]) system which ge nerated this result transmit elbert reference range : 59 - 158 mcg/dL. The ref erence range was not used to interpret this result as normal/abnormal . [place] [address] 12:49:29 Test Item Value Reference Range Interpretation Comments Iron (test code = 77 See_Comment [Automate d message] [facility]) system which ge nerated this result transmit elbert reference range : 59 - 158 mcg/dL. The ref erence range was not used to interpret this result as normal/abnormal . [place] [address] 12:49:29 Test Item Value Reference Range Interpretation Comments Iron (test code = 77 See_Comment [Automate d message] [facility]) system which ge nerated this result transmit elbert reference range : 59 - 158 mcg/dL. The ref erence range was not used to interpret this result as normal/abnormal . [address] 12:49:29 Test Item Value Reference Range Interpretation Comments Iron (test code = 77 See_Comment [Automate d message] [facility]) system which ge nerated this result transmit elbert reference range : 59 - 158 mcg/dL. The ref erence range was not used to interpret this result as normal/abnormal . [address] 12:49:29 Test Item Value Reference Range Interpretation Comments Iron (test code = 77 See_Comment [Automate d message] [facility]) system which ge nerated this result transmit elbert reference range : 59 - 158 mcg/dL. The ref erence range was not used to interpret this result as normal/abnormal . [place] [id number] 12:49:29 Test Item Value Reference Range Interpretation Comments Iron (test code = 77 See_Comment [Automate d message] [facility]) system which ge nerated this result transmit elbert reference range : 59 - 158 mcg/dL. The ref erence range was not used to interpret this result as normal/abnormal . [facility] [id number] 12:49:29 Test Item Value Reference Range Interpretation Comments Iron (test code = 77 See_Comment [Automate d message] The 2497-07) system which ge nerated this result transmit elbert reference range : 59 - 158 mcg/dL. The ref erence range was not used to interpret this result as normal/abnormal . [facility] [id number] 12:49:29 Test Item Value Reference Range Interpretation Comments Iron (test code = 77 See_Comment [Automate d message] The 2497-07) system which ge nerated this result transmit elbert reference range : 59 - 158 mcg/dL. The ref erence range was not used to interpret this result as normal/abnormal . [facility] [id number] 12:43:25 Test Item Value Reference Range Interpretation Comments Chol (test code = 78 mg/dL See_Comment ATP III Cl assification 2092-06) of Total Choles terol Primary Target of Therapy (in mg/dL):<200 Bqrvrcfsl549-54 9 Borderline high >=240 High [Automate d message] The sy stem which generated this result transmit elbert reference range : <=199. The refe rence range was not u sed to interpret this result as normal/abnor mal. Trig (test code = 221 mg/dL See_Comment H ATP III Cl assification 1091-8) of Serum Trigly cerides Primary Target of Therapy (in mg/dL):<150 Rcixss577-566 Borderline high 200-499 High>=500 Very highNon-fasting triglycerides > 200 mg/dL may be fo llowed up with a fasti ng Lipid Panel. Calculated LDL- C may be falsely decr eased when non-fastin g triglycerides > 200 mg/dL. [Automat ed message] The sy stem which generated this result transmit elbert reference range : <=149. The refe rence range was not u sed to interpret this result as normal/abnor mal. HDL (test code = 8 mg/dL See_Comment L [Automated message] 2084-12) The system whic h generated this result transmitted ref erence range: >=40. Th e reference range was not used to int erpret this result as normal/abnormal . LDL (test code = 26 mg/dL See_Comment ATP III Cla ssification 76324-0) of LDL Choleste rol Primary Target of Therapy (in mg/dL):<100 Uidkdni854-961 Near optimal/above -409 Borderline high 160-189 High>=190 Very high [Automated mess age] The system Exhbit generated this result transmitted ref erence range: <=100. T he reference range was not used to int erpret this result as normal/abnormal . VLDL (test code = 44 mg/dL 93515-3) Lab Interpretation Abnormal (test code = 33294-8) [facility] [id number] 12:43:25 Test Item Value Reference Range Interpretation Comments Chol (test code = 78 mg/dL See_Comment ATP III Cl assification 3) of Total Choles terol Primary Target of Therapy (in mg/dL):<200 Fosevncdt563-88 9 Borderline high >=240 High [Automated message] The sy stem which generated this result transmit elbert reference range : <=199. The refe rence range was not u sed to interpret this result as normal/abnor mal. Trig (test code = 221 mg/dL See_Comment H ATP III Cl assification 038-8) of Serum Trigly cerides Primary Target of Therapy (in mg/dL):<150 Qsmkha491-211 Borderline high 200-499 High>=500 Very highNon-fasting triglycerides > 200 mg/dL may be fo llowed up with a fasti ng Lipid Panel. Calculated LDL- C may be falsely decr eased when non-fastin g triglycerides > 200 mg/dL. [Automat ed message] The sy stem which generated this result transmit elbert reference range : <=149. The refe rence range was not u sed to interpret this result as normal/abnor mal. HDL (test code = 8 mg/dL See_Comment L [Automated message] 2084-12) The system Exhbit generated this result transmitted ref erence range: >=40. Th e reference range was not used to int erpret this result as normal/abnormal . LDL (test code = 26 mg/dL See_Comment ATP III Cla ssification 30005-9) of LDL Choleste rol Primary Target of Therapy (in mg/dL):<100 Lrfhpux980-715 Near optimal/above -951 Borderline high 160-189 High>=190 Very high [Automated mess age] The system Exhbit generated this result transmitted ref erence range: <=100. T he reference range was not used to int erpret this result as normal/abnormal . VLDL (test code = 44 mg/dL 82118-9) Lab Interpretation Abnormal (test code = 28801-4) [facility] [id number] 12:43:25 Test Item Value Reference Range Interpretation Comments Chol (test code = 78 mg/dL See_Comment ATP III Cl assification 2092-3) of Total Choles terol Primary Target of Therapy (in mg/dL):<200 Qwdahqvtl736-03 9 Borderline high >=240 High [Automated message] The sy stem which generated this result transmit elbert reference range : <=199. The refe rence range was not u sed to interpret this result as normal/abnor mal. Trig (test code = 221 mg/dL See_Comment H ATP III Cl assification 2031-8) of Serum Trigly cerides Primary Target of Therapy (in mg/dL):<150 Fwgeyx090-922 Borderline high 200-499 High>=500 Very highNon-fasting triglycerides > 200 mg/dL may be fo llowed up with a fasti ng Lipid Panel. Calculated LDL- C may be falsely decr eased when non-fastin g triglycerides > 200 mg/dL. [Automat ed message] The sy stem which generated this result transmit elbert reference range : <=149. The refe rence range was not u sed to interpret this result as normal/abnor mal. HDL (test code = 8 mg/dL See_Comment L [Automated message] 2084-12) The system Exhbit generated this result transmitted ref erence range: >=40. Th e reference range was not used to int erpret this result as normal/abnormal . LDL (test code = 26 mg/dL See_Comment ATP III Cla ssification 85711-2) of LDL Choleste rol Primary Target of Therapy (in mg/dL):<100 Tnfxtxw649-725 Near optimal/above lkuszqi067-742 Borderline high 160-189 High>=190 Very high [Automated mess age] The system Exhbit generated this result transmitted ref erence range: <=100. T he reference range was not used to int erpret this result as normal/abnormal . VLDL (test code = 44 mg/dL 58303-7) Lab Interpretation Abnormal (test code = 53565-7) [facility] [id number] 12:43:25 Test Item Value Reference Range Interpretation Comments Chol (test code = 78 mg/dL <=199 ATP III Cl assification 2092-06) of Total Choles terol Primary Target of Therapy (in mg/dL):<200 Exvsfbncc363-34 9 Borderline high >=240 High Trig (test code = 221 mg/dL <=149 H ATP III Cl assification 2571-8) of Serum Trigly cerides Primary Target of Therapy (in mg/dL):<150 Hdabok479-949 Borderline high 200-499 High>=500 Very highNon-fasting triglycerides > 200 mg/dL may be fo llowed up with a fasti ng Lipid Panel. Calculated LDL- C may be falsely decr eased when non-fastin g triglycerides > 200 mg/dL. HDL (test code = 8 mg/dL >=40 L 2084-12) LDL (test code = 26 mg/dL <=100 ATP III Cla ssification 69298-6) of LDL Choleste rol Primary Target of Therapy (in mg/dL):<100 Kwbloiv773-960 Near optimal/above ihsdymw554-388 Borderline high 160-189 High>=190 Very high VLDL (test code = 44 mg/dL 80296-9) Lab Interpretation Abnormal (test code = 93925-4) [facility] [id number] 12:43:25 Test Item Value Reference Range Interpretation Comments Chol (test code = 78 mg/dL <=199 ATP III Cl assification 2092-06) of Total Choles terol Primary Target of Therapy (in mg/dL):<200 Mnymhyytn297-50 9 Borderline high >=240 High Trig (test code = 221 mg/dL <=149 H ATP III Cl assification 1-8) of Serum Trigly cerides Primary Target of Therapy (in mg/dL):<150 Bqylli653-520 Borderline high 200-499 High>=500 Very highNon-fasting triglycerides > 200 mg/dL may be fo llowed up with a fasti ng Lipid Panel. Calculated LDL- C may be falsely decr eased when non-fastin g triglycerides > 200 mg/dL. HDL (test code = 8 mg/dL >=40 L 2084-12) LDL (test code = 26 mg/dL <=100 ATP III Cla ssification 97663-1) of LDL Choleste rol Primary Target of Therapy (in mg/dL):<100 Jxsfjnb242-768 Near optimal/above -833 Borderline high 160-189 High>=190 Very high VLDL (test code = 44 mg/dL 34180-4) Lab Interpretation Abnormal (test code = 76926-4) [facility] [id number] 12:43:25 Test Item Value Reference Range Interpretation Comments Chol (test code = 78 mg/dL <=199 ATP III Cl assification 3) of Total Choles terol Primary Target of Therapy (in mg/dL):<200 Hjvbubkme260-90 9 Borderline high >=240 High Trig (test code = 221 mg/dL <=149 H ATP III Cl assification 2571-8) of Serum Trigly cerides Primary Target of Therapy (in mg/dL):<150 Eatwcc821-260 Borderline high 200-499 High>=500 Very highNon-fasting triglycerides > 200 mg/dL may be fo llowed up with a fasti ng Lipid Panel. Calculated LDL- C may be falsely decr eased when non-fastin g triglycerides > 200 mg/dL. HDL (test code = 8 mg/dL >=40 L 2084-12) LDL (test code = 26 mg/dL <=100 ATP III Cla ssification 82624-7) of LDL Choleste rol Primary Target of Therapy (in mg/dL):<100 Nimcltm999-173 Near optimal/above lafjzrv440-676 Borderline high 160-189 High>=190 Very high VLDL (test code = 44 mg/dL 92055-9) Lab Interpretation Abnormal (test code = 39463-5) [facility] [id number] 12:43:25 Test Item Value Reference Range Interpretation Comments Chol (test code = 78 mg/dL <=199 ATP III Cl assification 2092-3) of Total Choles terol Primary Target of Therapy (in mg/dL):<200 Xonjautgr773-04 9 Borderline high >=240 High Trig (test code = 221 mg/dL <=149 H ATP III Cl assification 2571-8) of Serum Trigly cerides Primary Target of Therapy (in mg/dL):<150 Lovpvf388-729 Borderline high 200-499 High>=500 Very highNon-fasting triglycerides > 200 mg/dL may be fo llowed up with a fasti ng Lipid Panel. Calculated LDL- C may be falsely decr eased when non-fastin g triglycerides > 200 mg/dL. HDL (test code = 8 mg/dL >=40 L 2084-12) LDL (test code = 26 mg/dL <=100 ATP III Cla ssification 00413-1) of LDL Choleste rol Primary Target of Therapy (in mg/dL):<100 Dlqphuk098-763 Near optimal/above -528 Borderline high 160-189 High>=190 Very high VLDL (test code = 44 mg/dL 26743-6) Lab Interpretation Abnormal (test code = 77046-1) [facility] [id number] 12:43:25 Test Item Value Reference Range Interpretation Comments Chol (test code = 78 mg/dL <=199 ATP III Cl assification 3-3) of Total Choles terol Primary Target of Therapy (in mg/dL):<200 Kjtmtudom549-02 9 Borderline high >=240 High Trig (test code = 221 mg/dL <=149 H ATP III Cl assification 2571-8) of Serum Trigly cerides Primary Target of Therapy (in mg/dL):<150 Txymvc885-874 Borderline high 200-499 High>=500 Very highNon-fasting triglycerides > 200 mg/dL may be fo llowed up with a fasti ng Lipid Panel. Calculated LDL- C may be falsely decr eased when non-fastin g triglycerides > 200 mg/dL. HDL (test code = 8 mg/dL >=40 L 2084-12) LDL (test code = 26 mg/dL <=100 ATP III Cla ssification 35948-7) of LDL Choleste rol Primary Target of Therapy (in mg/dL):<100 Eelutlc338-001 Near optimal/above csufqqv613-229 Borderline high 160-189 High>=190 Very high VLDL (test code = 44 mg/dL 54827-7) Lab Interpretation Abnormal (test code = 02326-5) [facility] LATERAL *GP* 2019-02-11 16:42:58Lumbar spine, 2 viewsLocation Code: [id number] HISTORY: Back problemCOMPARISON: None.COMMENTS: AP and lateral views of the lumbar spine demonstrate no acutefracture or malalignment. There is moderate multilevel disc space narrowingwith endplate sclerosis and osteophyte formation. The soft tissues areunremarkable.IMPRESSION: Moderate multilevel lumbar spondylosis with otherwise no acuteabnormality.
--- NOTE | 2022-07-01 18:26 | RAD REPORT ---
EXAM DESCRIPTION: US - UPPER EXTREMITY VENOUS UNILATE - 07/01/2022 5:44 pm CLINICAL HISTORY: left arm pain COMPARISON: None. FINDINGS: A PICC line is present. Acute thrombus is present within the axillary, brachial and basilic veins. There is little flow. Left internal jugular, subclavian, cephalic, ulnar and radial veins are patent IMPRESSION: Acute thrombus left axillary, brachial and basilic veins
--- NOTE | 2022-07-01 18:33 | RAD REPORT ---
EXAM DESCRIPTION: RAD -Hand Left 3 View - 07/01/2022 6:02 pm CLINICAL HISTORY: Left hand pain FINDINGS: No fracture or dislocation is seen. Moderate osteoarthritis involves the first carpometacarpal joint Scaffold lunate advance collapse is present.
[2022-07-01 19:14] LABS: Hematocrit 30.8 % (39.6-49.0); MCV 99.7 fL (80-100); MPV 8.6 fL (7.6-11.3); RBC Red Blood Cell Count 3.09 M/uL (4.33-5.43)
--- NOTE | 2022-07-01 19:22 | ER ---
Nurse's Notes [facility] Name: Rene Padgett Age: 67 yrs Sex: Male : 1955 Arrival Date: 07/01/2022 Time: 16:16 Bed DX3 Private MD: Avi Mcleod T Diagnosis: Acute thrombus left axillary, brachial and basilic veins Presentation: 07/01 16:24 Chief complaint: Patient states: left hand swelling and pain that began today at 0900. aa5 Reports hx of RA. Reports he has a fentanyl patch on, takes Dilaudid and gabapentin for pain. Coronavirus screen: At this time, the client does not indicate any symptoms associated with coronavirus-19. Ebola Screen: Patient denies travel to an Ebola-affected area in the 21 days before illness onset. Initial Sepsis Screen: Does the patient meet any 2 criteria? No. Patient's initial sepsis screen is negative. Does the patient have a suspected source of infection? No. Patient's initial sepsis screen is negative. Risk Assessment: Do you want to hurt yourself or someone else? Patient reports no desire to harm self or others. Onset of symptoms was July 01, 2022. 16:24 Acuity: JAYLEN 4 aa5 16:24 Method Of Arrival: Ambulatory aa5 Historical: - Allergies: 16:25 No Known Allergies; aa5 - PMHx: 16:25 High Cholesterol; Rheumatoid arthritis; Sepsis; Parkinson's disease; aa5 - Immunization history:: Adult Immunizations unknown. - Social history:: Smoking status: Patient denies any tobacco usage or history of. Screenin:24 [facility] ED Fall Risk Assessment (Adult) History of falling in the last 3 months, iw including since admission. Abuse screen: Denies threats or abuse. Denies injuries from another. Nutritional screening: No deficits noted. Tuberculosis screening: No symptoms or risk factors identified. Assessment: 19:00 General: Appears in no apparent distress. Behavior is calm, cooperative. Pain: Denies iw pain. Neuro: Level of Consciousness is awake, alert, obeys commands, Oriented to person, place, time, situation, Moves all extremities. Full function. Cardiovascular: Reports shortness of breath, Denies chest pain, Patient's skin is warm and dry. Respiratory: Respiratory effort is even, unlabored, Respiratory pattern is regular. Musculoskeletal: Range of motion: intact in all extremities. Vital Signs: 16:24 BP 144 / 89; Pulse 84; Resp 18 S; Temp 97.5(TE); Pulse Ox 99% on R/A; Weight 85.28 kg aa5 (R); Height 5 ft. 10 in. (177.80 cm) (R); 19:23 BP 97 / 81; Pulse 103; Resp 18 S; Pulse Ox 99% on R/A; iw 16:24 Body Mass Index 26.97 (85.28 kg, 177.80 cm) aa5 ED Course: 16:16 Patient arrived in ED. rg4 16:17 Avi Mcleod MD is Private Physician. rg4 16:17 Barbara Mccarthy FNP-C is [facility]. kb 16:17 Omar Muller DO is Attending Physician. kb 16:24 Arm band placed on. aa5 16:25 Triage completed. aa5 18:32 Alvaro Rodarte MD is Attending Physician. kb 19:02 Basic Metabolic Panel Sent. iw 19:02 CBC with Diff Sent. iw 19:02 Ptt, Activated Sent. iw 19:02 Protime (+inr) Sent. iw Administered Medications: 16:28 Drug: predniSONE 40 mg Route: PO; aa5 Outcome: 19:21 Discharge ordered by MD. kb 19:37 Patient left the ED. bc6 Signatures: Barbara Mccarthy FNP-C FNP-Glendy Gonzalez RN RN iw Mila Cho RN RN Jessica Abebe [facility] Lisseth Evans bc6
--- NOTE | 2022-07-01 19:22 | EDPHYS ---
Physician Documentation [facility] Name: Rene Padgett Age: 67 yrs Sex: Male : 1955 Arrival Date: 07/01/2022 Time: 16:16 Bed DX3 Private MD: Avi Mcleod T ED Physician Alvaro Rodarte HPI: 07/01 16:32 This 67 yrs old Male presents to ER via Ambulatory with complaints of Hand kb Swelling. 16:32 The patient or guardian reports pain, swelling. The complaints affect the dorsum of kb left hand. Context: The problem was sustained at home, resulted from an unknown cause. Onset: The symptoms/episode began/occurred this morning, at 09:00. Modifying factors: The symptoms are alleviated by nothing, the symptoms are aggravated by nothing. Associated signs and symptoms: The patient has no apparent associated signs or symptoms. Severity of symptoms: At their worst the symptoms were moderate, in the emergency department the symptoms are unchanged. The patient has not experienced similar symptoms in the past. The patient has not recently seen a physician. Historical: - Allergies: 16:25 No Known Allergies; aa5 - PMHx: 16:25 High Cholesterol; Rheumatoid arthritis; Sepsis; Parkinson's disease; aa5 - Immunization history:: Adult Immunizations unknown. - Social history:: Smoking status: Patient denies any tobacco usage or history of. ROS: 16:32 Constitutional: Negative for fever, chills, and weight loss. kb 16:32 Skin: Positive for swelling, of the dorsum of left hand. 16:32 All other systems are negative. Exam: 16:32 Constitutional: This is a well developed, well nourished patient who is awake, alert, kb and in no acute distress. Head/Face: Normocephalic, atraumatic. ENT: Moist Mucous membranes Respiratory: Respirations even and unlabored. No increased work of breathing. Talking in full sentences Skin: Warm, dry with normal turgor. Normal color. Neuro: Awake and alert, GCS 15, oriented to person, place, time, and situation. Moves all extremities. Normal gait. Psych: Awake, alert, with orientation to person, place and time. Behavior, mood, and affect are within normal limits. 16:32 Musculoskeletal/extremity: Extremities: grossly normal except: noted in the dorsum of left hand: swelling, ROM: limited active range of motion due to pain, in the left hand, Circulation is intact in all extremities. Sensation intact. Vital Signs: 16:24 BP 144 / 89; Pulse 84; Resp 18 S; Temp 97.5(TE); Pulse Ox 99% on R/A; Weight 85.28 kg aa5 (R); Height 5 ft. 10 in. (177.80 cm) (R); 19:23 BP 97 / 81; Pulse 103; Resp 18 S; Pulse Ox 99% on R/A; iw 16:24 Body Mass Index 26.97 (85.28 kg, 177.80 cm) aa5 MDM: 16:22 Patient medically screened. kb 16:33 Differential diagnosis: closed fracture, contusion, RA exacerbation. Data reviewed: tao vital signs, nurses notes. ED course: Patient is a 67-year-old male with a history of RA who presents with swelling to the dorsum of his left hand that started at 9:00 this morning. Patient denies injury or trauma. On exam patient has moderate swelling to dorsum of left hand that is localized over second and third metacarpals. Patient has full range of motion of left hand but reports its more painful than normal. Patient reports he has a PICC line to left upper extremity that has been there for over a week for antibiotics. He is going to be following up with MD Dewitt to have it removed because antibiotics are completed. PICC line is in place and does not have any redness or swelling around it. Ultrasound and x-ray ordered.. 18:32 ED course: Discussed US findings with Dr Rodarte. Serum labs ordered. . kb 19:18 Counseling: I had a detailed discussion with the patient and/or guardian regarding: the kb historical points, exam findings, and any diagnostic results supporting the discharge/admit diagnosis, radiology results. ED course: Discussed ultrasound findings with patient. Educated on need for serum labs and removal of PICC line. Patient does not want his PICC line removed today, states he will call MD Dewitt in the morning for follow-up. States this is his third PICC line and he does not want another one if they plan to use it still. Patient states he does not want to wait for results of serum labs request to be discharged now. Will follow-up with MD Dewitt tomorrow. Discussed with Dr. Rodarte who recommended prescribing Eliquis.. 07/01 16:22 Order name: US Extremity Venous Unilateral Ltd kb 07/01 16:22 Order name: Hand Left 3 View XRAY kb 07/01 18:27 Order name: US; Complete Time: 18:27 EDMS 07/01 18:30 Order name: CBC with Diff kb 07/01 18:30 Order name: Basic Metabolic Panel kb 07/01 18:30 Order name: Protime (+inr) kb 07/01 18:30 Order name: Ptt, Activated kb 07/01 18:34 Order name: RAD; Complete Time: 18:35 EDMS 07/01 19:29 Order name: CBC with Automated Diff EDMS 07/01 19:32 Order name: Basic Metabolic Panel EDMS Administered Medications: 16:28 Drug: predniSONE 40 mg Route: PO; aa5 Disposition: 18:30 Co-signature as Attending Physician, Omar SALMON was immediately available on-site ms3 in the Emergency Department for consultation in the care of the patient. Disposition Summary: 07/01/22 19:21 Discharge Ordered Location: Home kb Condition: Stable kb Diagnosis - Acute thrombus left axillary, brachial and basilic veins kb Followup: kb - With: Emergency Department - When: As needed - Reason: Worsening of condition Followup: kb - With: Private Physician - When: 2 - 3 days - Reason: Recheck today's complaints, Continuance of care, Re-evaluation by your physician Discharge Instructions: - Discharge Summary Sheet kb - Deep Vein Thrombosis kb Forms: - Medication Reconciliation Form kb - Thank You Letter kb - Antibiotic Education kb - Prescription Opioid Use kb Prescriptions: - Eliquis DVT-PE Treat 30D Start 5 mg (74 tabs) Oral tablets,dose pack - take 10 milligram by ORAL route 2 times per day for 7 days 10mg BID for 7 days, kb then 5mg BID; 74 tablet; Refills: 0, Product Selection Permitted Signatures: Dispatcher [employer] Barbara Faulkner FNP-C FNP-Ckb Calderon, Audri, RN RN aa5 Omar Muller DO DO ms3
[2022-07-01 19:32] LABS: Potassium 4.2 mmol/L (3.5-5.1)
[2022-07-01 19:39] LABS: Protime INR 1.09
[2022-07-01 19:41] VITALS: TEMP 97.5; O2SAT 99
[2022-07-01 19:43] VITALS: BP 97/81
== END 2022-07-01 19:37 | disposition home or self-care (01) ==
LOC: ER 16:12
DX: I82.A12 Acute embolism and thrombosis of left axillary vein (principal); I82.622 Acute embolism and thrombosis of deep veins of left upper extremity; I82.612 Acute embolism and thrombosis of superficial veins of left upper extremity; G20 Parkinson's disease
CPT/HCPCS: 85025; 80048; 36415; 85610; 85730; 73130; 93971; J7512

== ENCOUNTER 2022-07-03 06:09 | Emergency (ER) | payer MEDICARE, OTHER ==
[2022-07-03 06:48] VITALS: BP 148/104; TEMP 97.9; O2SAT 98
--- OUTSIDE RECORDS SUMMARY | 2022-07-03 06:53 | XMS REPORT | Continuity of Care Document ---
:1955 Author Organization [facility] t Address [address] [facility] [address] [place] [address] Care Team Providers Name Role Phone Avi Mcleod MD Primary Care Physician [phone] JOEY CERVANTES Attending Clinician Unavailable ALPA WHARTON Attending Clinician Unavailable SYSTEM, PROVIDER NOT IN Attending Clinician Unavailable RAFAEL MUNGUIA Attending Clinician Unavailable SEVERO MUNROE Attending Clinician Unavailable MO VALENCIA Attending Clinician Unavailable Lilly GARCIA, Mercedez Garland Attending Clinician Unavailable Curly Gomes MD Attending Clinician Billy GRACIA PhD, Joey Attending Clinician Epifanio Joiner MD Attending Clinician Joanie Worthington NP Attending Clinician CROW GREER Attending Clinician Unavailable Crow Greer APN Attending Clinician KAILEY PARIKH Attending Clinician Unavailable Augusta Lewis MD Attending Clinician Zoran GARCIA, Gracy Valle Attending Clinician Unavailable Esme GRACIA, Facundo Attending Clinician Tammi Carbajal Attending Clinician Unavailable Andres E COMMERCE SPECIALIST, Alpa Attending Clinician Dillan GRACIA, Severo Leung Attending Clinician Calista E COMMERCE SPECIALIST, Astrid Attending Clinician Christian GRACIA, Karel Attending Clinician Keanu GRACIA, Yodit Chun Attending Clinician Jeremías GRACIA, Mo Attending Clinician Dhara GRACIA, Luis Antonio Aragon Attending Clinician Michael ROCKWELL, Khadra Attending Clinician Lobito GRACIA, Sam Attending Clinician Brianna GASTON, Stephanie Attending Clinician Unavailable Kevin GRACIA, Mauro Danielson Attending Clinician Leann CHOI, Jihan Attending Clinician Bud WAGNER, Rhiannon Olea Attending Clinician [phone] Natalia GRACIA PhD, Brett Attending Clinician Kenney GRACIA, Lb Attending Clinician Kevin GRACIA, Ralph Attending Clinician Letty GRACIA, Shane Lovelace Attending Clinician Curly Kauffman Attending Clinician Isela GARCIA, Chanel Macias Attending Clinician Doris Valencia Attending Clinician Josefa Castillo Attending Clinician Guillaume GARCIA, Johanne Vieira Attending Clinician Unavailable Maribell GARCIA, Leyla Penaloza Attending Clinician Unavailable Moises E COMMERCE SPECIALIST, Mert Attending Clinician Zackery E COMMERCE SPECIALIST, Savana Attending Clinician Yazan GRACIA, Phoebe Gómez Attending Clinician Kenny CUNNINGHAM, Maki Ames Attending Clinician PHOEBE PEREZ Attending Clinician Unavailable Leyla GRACIA, Marciano Attending Clinician Jaren GRACIA, Rod Attending Clinician Lucinda Antoine APN Attending Clinician Joseph HIGH PRESSURE FIRER, Michelle Attending Clinician LUCINDA ANTOINE Attending Clinician [...] Clinician Luis Antonio Baker MD Attending Clinician [phone] LUIS ANTONIO BAKER Attending Clinician Unavailable Darnell Quick APN Attending Clinician Archana Rhoades Attending Clinician Sriram Corea MD Attending Clinician YODIT COLUNGA Attending Clinician Unavailable Nikki Kraus Attending Clinician Cesar Angel Attending Clinician Favian Hill MD Attending Clinician Shaik BERNARD, Nadja Jenkins Attending Clinician Mouna Youssef Attending Clinician Jaren Baptiste MD Attending Clinician Shaji MACHINE SETTER AND REPAIRER, Jony Attending Clinician Jordan AGRCIA, Scarlett Johnson Attending Clinician Unavailable Tarik WAGNER, Susan Perkins Attending Clinician Bg Montemayor PT, Paula Attending Clinician Dimple Moctezuma Attending Clinician SUSAN KELLER Attending Clinician Unavailable Alex RN, Lavern Espino Attending Clinician Unavailable Jay WAGNER, Tahir Ocampo Attending Clinician [phone] Carlos GARCIA, Chanel Haney Attending Clinician Unavailable Jodi Manning RN Attending Clinician Unavailable Julian GRACIA, Cornelius Lemos Attending Clinician Ana Phan MD Attending Clinician Leann GRACIA, Crescencio Gregory Attending Clinician Elham GRACIA, Francis Attending Clinician Anay GRACIA, Roberto Attending Clinician [phone] Misti Barton Attending Clinician [phone] Kiarra Almaguer MD Attending Clinician Bam Lima MD Attending Clinician [phone] Malaika Ram NP Attending Clinician Cassie Arenas Attending Clinician [phone] ROBERTO FENG Attending Clinician Unavailable BELKIS ELLIOTT Attending Clinician Unavailable CRESCENCIO COOLEY V. Attending Clinician Unavailable Leann CUN[place], [facility] Attending Clinician Inge Garcia MA Attending Clinician Unavailable NEIL LEVINE Attending Clinician Unavailable Neil Levine MD Attending Clinician 2, [facility] Attending Clinician Unavailable Mo Valencia MD Attending Clinician Only, Adc Test Attending Clinician Unavailable Doctor Unassigned, [place] Attending Clinician Unavailable Pob, [facility] Main [...] Effective Date Expiration Date Rigo shaw [facility] [id number] 2021 MEDICARE ADVANTAGE 00:00:00 [employer] [id number] 2020 MEDICARE ADVANTAGE 00:00:00 Problems Condition Condition Condition Status Onset Resolution Last Treating Co mments Source Name Details Category Date Date Treatment Clinician Date Bacteremia Bacteremia Disease Active U nivers 2-22 ity of 00:00: [place] MD [facility] History of History of Disease Active U nivers colonic colonic 2-22 it[place] of divert[place] access ar access 00 MD [facility] Bilateral Bilateral Disease Active Met hodi arm pain arm pain 05-02 st 00:00: Hospita 00 l Pain in Pain in Disease Active Univers left knee left knee 10-26 ity of 00:00: [place] 00 MD [facility] Peripheral Peripheral Disease Active U anthony neuropathy neuropathy 6- it y of 00:00: [place] MD [facility] Hypokalemi Hypokalemi Disease Active U nivers a a 6- ity of 00:00: [place] 00 MD Robert saucedo [facility] Hypomagnes Hypomagnes Disease Active U anthony emia emia 10-24 ity of 00:00: [place] 00 MD Robert sauced[facility] Hypophosph Hypophosph Disease Active U anthony atemia atemia 10-24 ity of 00:00: [place] 00 MD Robert saucedo [facility] Hypotensio Hypotensio Disease Active U anthony n n 10-22 ity of 00:00: [place] 00 MD Robert saucedo [facility] Sepsis Sepsis Disease Active Univers 10-22 ity of 00:00: [place] 00 MD Robert sauced[facility] Parkinson' Parkinson' Disease Active U anthony s disease s disease 10-22 ity of 00:00: [place] 00 MD Robert sauced[facility] Urge Urge Disease Active Univers incontinen incontinen 10-22 it y of ce ce 00:00: [place] 00 MD Robert sauced[facility] Overactive Overactive Disease Active U antohny bladder bladder 10-22 ity of 00:00: [place] 00 MD Robert saucedo [facility] 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 5-18 ity of neoplastic neoplastic [place] disease disease 00 MD Robert sauced[facility] Abscess Abscess Disease Active Univers with with 5-17 ity of diverticul diverticul [place] ar disease ar disease 00 of colon of colon [facility] Abdominal Abdominal Disease Active Uni vers pain pain 5-17 ity of 00:00: [place] 00 MD Robert saucedo [facility] Parkinson' Parkinson' Disease Active M ethodi s disease s disease 05-23 st 00:00: Hospita 00 l R25.1 - R25.1 - Diagnosis Active 2019-10-11 Memoria "TREMOR, "TREMOR, 6-12 10:20:00 l UNSPECIFIE UNSPECIFIE 00:01: He rmmalaika D" M79.643 D" M79.643 00 - - Active 10/08/2019 [facility] [place] Weakness Weakness Disease Active Metho di of both of both 10-31 st arms arms 00:00: Hospita 00 l Infection Infection Disease Active Uni vers due to due to ity of ESBL ESBL [place] Escherariana Barneyichi MD espino coli a coli [facility] Endocardit Endocardit Disease Active U anthony is is ity of [place] MD Robert saucedo [facility] Pseudomona Pseudomona Disease Active U anthony s it[place] [facility] Cervical Cervical Problem Active 2020-03-04 Memoria myelopathy myelopathy 22:23:23 l (disorder) (disorder) [place] leila Active Problem 03/04/2020 [facility] [place] Hand pain Hand pain Problem Active 2020-03-04 Memoria (finding) (finding) 22:23:23 l Active [place] Problem 03/04/2020 [facility] WINSOME [place] Carpal Carpal Problem Active 2020-03-04 Jesus bj tunnel tunnel 22:23:23 l syndrome syndrome [place] n (disorder) (disorder) Active Problem 03/04/2020 [facility] [place] Tremor Tremor Problem Active 2020-03-04 Jesus bj (finding) (finding) 22:23:23 l Active Juanjose [facility] [place] [place] Primary Primary Disease Resolve 2021-10-22 2021-10-22 Univers cutaneous cutaneous d 09-27 00:00:00 14:06:17 ity of diffuse diffuse 00:00: Radha large cell large cell 00 B-cell B-cell Andjay[place] lymphoma lymphoma n of lower of lower Cancer extremity extremity Cent er Pain in Pain in Disease Resolve 2021-10-22 2021-10-22 Univers right knee right knee d 09-16 00:00:00 14:05:04 ity of 00:: [place] 00 MD Robert saucedo [facility] Uncontroll Uncontroll Disease Resolve 2021-10-22 2021-10-22 Univers ed pain ed pain d 09-15 00:00:00 14:05:05 ity of 00:00: [place] 00 MD Robert saucedo [facility] Malnutriti Malnutriti Disease Resolve 2021-10-22 2021-10-22 Univers on of on of d 09-14 00:00:00 14:: ity of moderate moderate 00:00: [place] degree degree 00 MD Robert saucedo [facility] Hyposmolal Hyposmolal Disease Resolve 2021-10-22 2021-10-22 Univers ity and/or ity and/or d 09-12 00:00:00 14:04:53 ity of hyponatrem hyponatrem [place]: [place] ia ia 00 MD Robert saucedo [facility] Intractabl Intractabl Disease Resolve 2021-10-22 2021-10-22 Univers e nausea e nausea d 09-12 00:00:00 14:04:56 it y of and and 00:00: [place] vomiting vomiting 00 MD Robert saucedo [facility] Allergies, Adverse Reactions, Alerts Allergy Allergy Status Severity Reaction(s) Onset Inactive Treating Comm ents Source Name Type Date Date Clinician NO KNOWN Drug Active Univers ALLERGIE Class ity of [facility] No Known No Known Active Memori a Medicati Medicati l on on Juanjose Allergie Allergie s s Social History Social Habit Start Date Stop Date Quantity Comments Source Tobacco use and 2022-06-19 2022-06-19 Smokeless tobacco Un iversity of exposure 00:00:00 00:00:00 non-user Radha mcnulty [facility] Alcohol intake 2022-06-19 2022-06-19 Ex-drinker University of 00:00:00 00:00:00 (finding) Radha mcnulty [facility] Tobacco Comment 2022-06-19 2022-06-19 Quit 10 yrs back Uni versity of 00:00:00 00:00:00 [facility] Alcohol Comment 2022-06-19 2022-06-19 WQuit 10 yrs back Un iversity of 00:00:00 00:00:00 [facility] Exposure to 2022-06-08 2022-06-[address] [facility]-CoV-2 00:00:00 23:47:00 [facility]event[facility] History of 2012-04-28 Cigarette Smoker Universi ty of tobacco use 00:00:00 [facility] Sex Ass[birth year] Universit y of 00:00:00 00:00:00 [facility] Smoking Status Start Date Stop Date Source Unknown if ever smoked [facility] [place] Ex-smoker 2022-06-19 00:00:00 2022-06-19 [place] [facility] Radha GRACIA 00:00:00 [facility] Occasional tobacco 2021-12-13 00:00:00 [facility] smoker Social History [facility] Medications Ordered Filled Start Stop Current Ordering Indication Dosage Frequency Signature Comments Components Source Medication Medication Date Date Medication? Clinician (SIG) Name Name omeprazole Yes 20mg Take 1 Unive rs (PriLOSEC) 2-28 capsule ity of 20 mg 16:08: (20 mg) by [place] capsule 10 mouth MD every [place] morning n before Cancer breakfast. [place] hydrOXYchlo Yes 200mg Take 1 Uni vers roQUINE 2-28 tablet ity of (PLAQUENIL) 16:08: (200 mg) [place] 200 mg 10 by mouth MD tablet twice [place] daily. [facility] sulfaSALAzi Yes 500mg Take 1 Uni vers ne 2-28 tablet ity of (AZULFIDINE 16:08: (500 mg) [place] 500 mg 10 by mouth MD tablet twice [place] daily. [facility] omeprazole Yes 20mg Take 1 Unive rs (PriLOSEC) 2-28 capsule ity of 20 mg 16:08: (20 mg) by [place] capsule 10 mouth MD every [place] morning n before Cancer breakfast. [place] hydrOXYchlo 2023-0 Yes 200mg Take 1 Uni vers roQUINE 2-28 tablet ity of (PLAQUENIL) 16:08: (200 mg) [place] 200 mg 10 by mouth MD tablet twice [place] daily. [facility] sulfaSALAzi Yes 500mg Take 1 Uni vers ne 2-28 tablet ity of (AZULFIDINE 16:08: (500 mg) [place] 500 mg 10 by mouth MD tablet twice [place] daily. [facility] omeprazole 0 Yes 20mg Take 1 Unive rs (PriLOSEC) 2-28 capsule ity of 20 mg 16:08: (20 mg) by [place] capsule 10 mouth MD every [place] morning n before Cancer breakfast. [place] hydrOXYchlo Yes 200mg Take 1 Uni vers roQUINE 2-28 tablet ity of (PLAQUENIL) 16:08: (200 mg) [place] 200 mg 10 by mouth MD tablet twice [place] daily. [facility] sulfaSALAzi Yes 500mg Take 1 Uni vers ne 2-28 tablet ity of (AZULFIDINE 16:08: (500 mg) [place] 500 mg 10 by mouth MD tablet twice [place] daily. [facility] omeprazole Yes 20mg Take 1 Unive rs (PriLOSEC) 2-28 capsule ity of 20 mg 16:08: (20 mg) by [place] capsule 10 mouth MD every [place] morning n before Cancer breakfast. [place] hydrOXYchlo Yes 200mg Take 1 Uni vers roQUINE 2-28 tablet ity of (PLAQUENIL) 16:08: (200 mg) [place] 200 mg 10 by mouth MD tablet twice [place] daily. [facility] sulfaSALAzi Yes 500mg Take 1 Uni vers ne 2-28 tablet ity of (AZULFIDINE 16:08: (500 mg) [place] 500 mg 10 by mouth MD tablet twice [place] daily. [facility] nystatin 2022- Yes Urge Apply Univers (Nystop) 06-25 03-15 incontinenc topically ity of 100,000 00:00: 04:59 e to [place] units/g 00 :00 affected MD powder area(s) 3 [place] (three) n times a Cancer day for 14 Center days. Groin area nystatin 2022- Yes Urge Apply Univers (Nystop) 06-25-15 incontinenc topically ity of 100,000 00:00: 04:59 [...] [place] Use) hours for n 3 days. [facility] ceFEPime 2022- No Pseudomonas 6000mg Infuse Univers (MAXIPIME) 06-25 [place] 6,000 mg ity of IV 00:00: 00:00 intravenou [place] prescriptio 00 :00 sly infuse MD n (Home over 24 [place] Use) hours for n 3 days. [facility] ceFEPime 2022- No Pseudomonas 6000mg Infuse Univers (MAXIPIME) 06-25 [place] 6,000 mg ity of IV 00:00: 00:00 intravenou [place] prescriptio 00 :00 sly infuse MD n (Home over 24 [place] Use) hours for n 3 days. [facility] ceFEPime 2022- No Pseudomonas 6000mg Infuse Univers (MAXIPIME) 06-25 [place] 6,000 mg ity of IV 00:00: 00:00 intravenou [place] prescriptio 00 :00 sly infuse MD n (Home over 24 [place] Use) hours for n 3 days. Cancer Center ceFEPime 0 2023- No Pseudomonas 6000mg Infuse Univers (MAXIPIME) 06-25- [place] 6,000 mg ity of IV 00:00: 00:00 intravenou [place] prescriptio 00 :00 sly infuse MD n (Home over 24 [place] Use) hours for n 3 days. Cancer Center omeprazole 0 Yes 20mg Take 1 [...] twice [place] daily. n Cancer Center sulfaSALAzi 0 Yes 500mg Take 1 Uni vers ne 2-27 tablet ity of (AZULFIDINE 14:50: (500 mg) [place] ) 500 mg 02 by mouth MD tablet twice [place] daily. n Cancer Center gabapentin Yes Chronic Take 900 Univers (Neurontin) 2-27 pain mg (3 ity of 300 mg 00:00: capsules) [place] capsule 00 by mouth MD in the [place] morning, n 900 mg (3 Cancer capsules) Center in afternoon, and take 1200 mg (4 capsules) at night. gabapentin Yes Chronic Take 900 Univers (Neurontin) 2-27 pain mg (3 ity of 300 mg 00:00: capsules) [place] capsule 00 by mouth MD in the [place] morning, n 900 mg (3 Cancer capsules) Center in afternoon, and take 1200 mg (4 capsules) at night. gabapentin Yes Chronic Take 900 Univers (Neurontin) 2-27 pain mg (3 ity of 300 mg 00:00: capsules) [place] capsule 00 by mouth MD in the [place] morning, n 900 mg (3 Cancer capsules) Center in afternoon, and take 1200 mg (4 capsules) at night. gabapentin 2022- Yes Chronic Take 900 Univers (Neurontin) 2-27 [...] 1200 mg (4 capsules) at night. ciprofloxac 2022- Yes Bacteremia 750mg Take 1 Univers in HCl 06-24-12 tablet ity of (CIPRO) 750 00:00: 05:59 (750 mg) [place] mg tablet 00 :00 by mouth MD every 12 [place] (twelve) n hours for Cancer 11 days. [place] Last dose 07/04/22 ciprofloxac 2022- Yes Bacteremia 750mg Take 1 Univers in HCl 06-24-12 tablet ity of (CIPRO) 750 00:00: 05:59 (750 mg) [place] mg tablet 00 :00 by mouth MD every 12 [place] (twelve) n hours for Cancer 11 days. [place] Last dose 07/04/22 ciprofloxac 2022- Yes Bacteremia 750mg Take 1 Univers in HCl 06-24-12 tablet ity of (CIPRO) 750 00:00: 05:59 (750 mg) [place] mg tablet 00 :00 by mouth MD every 12 [place] (twelve) n hours for Cancer 11 days. [place] Last dose 07/04/22 ciprofloxac 2022- Yes Bacteremia 750mg Take 1 Univers in HCl 06-24-12 tablet ity of (CIPRO) 750 00:00: 05:59 (750 mg) [place] mg tablet 00 :00 by mouth MD every 12 [place] (twelve) n hours for Cancer 11 days. [place] Last dose 07/04/22 ciprofloxac 2022- Yes Bacteremia 750mg Take 1 Univers in HCl 06-24-11 tablet ity of (CIPRO) 750 00:00: 05:59 [...] [place] Use) hours for n 3 days. [facility] ceFEPime 2022- No Pseudomonas 2000mg Infuse Univers (MAXIPIME) 06-24 [place] 2,000 mg ity of IV 00:00: 00:00 intravenou [place] prescriptio 00 :00 sly every MD n (Home 8 (eight) Anders[place] Use) hours for n 3 days. [facility] ceFEPime 2022- No Pseudomonas 2000mg Infuse Univers (MAXIPIME) 06-24 [place] 2,000 mg ity of IV 00:00: 00:00 intravenou [place] prescriptio 00 :00 sly every MD n (Home 8 (eight) [place] Use) hours for n 3 days. [facility] ceFEPime 2022- No Pseudomonas 2000mg Infuse Univers (MAXIPIME) 06-24 [place] 2,000 mg ity of IV 00:00: 00:00 intravenou [place] prescriptio 00 :00 sly every MD n (Home 8 (eight) [place] Use) hours for n 3 days. [facility] ceFEPime 2022- No Pseudomonas 2000mg Infuse Univers [...] twice [place] daily. n Cancer Center sulfaSALAzi 2023-0 Yes 500mg Take 1 Uni vers ne 2-21 tablet ity of (AZULFIDINE 23:10: (500 mg) [place] ) 500 mg 50 by mouth MD tablet twice [place] daily. n Cancer Center fentaNYL 2022-[address] 1 Uni vers [...] Cancer needed for Center severe pain. fentaNYL 2022-[address] 1 Uni vers [...] Cancer needed for Center severe pain. fentaNYL 2022-[address] 1 Uni vers [...] Cancer needed for Center severe pain. omeprazole 2022-0 Yes 20mg Take 1 Unive rs (PriLOSEC) 1-16 capsule ity of 20 mg 14:19: (20 mg) by [place] capsule 07 mouth MD every [place] morning n before Cancer breakfast. Center hydrOXYchlo 2022-0 Yes 200mg Take 1 Uni vers roQUINE 1-16 tablet ity of (PLAQUENIL) 14:19: (200 mg) [place] 200 mg 07 by mouth MD tablet twice [place] daily. n [facility] sulfaSALAzi Yes 500mg Take 1 Uni vers ne 1-16 tablet ity of (AZULFIDINE 14:19: (500 mg) [place] ) 500 mg 07 by mouth MD tablet twice [place] daily. n [facility] omeprazole Yes 20mg Take 1 Unive rs (PriLOSEC) 1-16 capsule ity of 20 mg 14:19: (20 mg) by [place] capsule 07 mouth MD every [place] morning n before Cancer breakfast. [place] hydrOXYchlo Yes 200mg Take 1 Uni vers roQUINE 1-16 tablet ity of (PLAQUENIL) 14:19: (200 mg) [place] 200 mg 07 by mouth MD tablet twice [place] daily. n [facility] sulfaSALAzi Yes 500mg Take 1 Uni vers ne 1-16 tablet ity of (AZULFIDINE 14:19: (500 mg) [place] ) 500 mg 07 by mouth MD tablet twice [place] daily. n [facility] ampicillin 2022- Yes Bacteremia 12g Infuse Univers (OMNIPEN) 05-12 12,000 mg ity of IV 00:00: 05:59 (12 g) [place] prescriptio 00 :00 intravenou n (HOME sly infuse Jaspal o USE) over 24 n hours for Cancer 11 days. [place] ampicillin 2022- Yes Bacteremia 12g Infuse Univers (OMNIPEN) 05-12 12,000 mg ity of IV 00:00: 05:59 (12 g) [place] prescriptio 00 :00 intravenou n (HOME sly infuse Jaspal o USE) over 24 n hours for Cancer 11 days. [place] ampicillin 2022- No Bacteremia 12g Infuse Univers (OMNIPEN) 05-12 12,000 mg ity of IV 00:00: 05:59 (12 g) [place] prescriptio 00 :00 intravenou MD n (HOME sly infuse Jaspal o USE) over 24 n hours for Cancer 11 days. [place] ampicillin 2022- No Bacteremia 12g Infuse Univers (OMNIPEN) 05-12 12,000 mg ity of IV 00:00: 05:59 (12 g) [place] prescriptio 00 :00 intravenou MD n (HOME sly infuse Jaspal o USE) over 24 n hours for Cancer 11 days. [place] ampicillin 2022- No Bacteremia 12g Infuse Univers (OMNIPEN) 05-12 12,000 mg ity of IV 00:00: 05:59 (12 g) [place] prescriptio 00 :00 intravenou MD n (HOME sly infuse Jaspal o USE) over 24 n hours for Cancer 11 days. [place] ampicillin 2022- No Bacteremia 12g Infuse Univers (OMNIPEN) 05-12 12,000 mg ity of IV 00:00: 05:59 (12 g) [place] prescriptio 00 :00 intravenou MD n (HOME sly infuse Jaspal o USE) over 24 n hours for Cancer 11 days. [place] ampicillin 2022- No Bacteremia 12g Infuse Univers (OMNIPEN) 05-12 12,000 mg ity of IV 00:00: 05:59 (12 g) [place] prescriptio 00 :00 intravenou MD n (HOME sly infuse Jaspal o USE) over 24 n hours for Cancer 11 days. [place] ampicillin 2022- No Bacteremia 12g Infuse Univers (OMNIPEN) 05-12 12,000 mg ity of IV 00:00: 05:59 (12 g) [place] prescriptio 00 :00 intravenou MD n (HOME sly infuse Jaspal o USE) over 24 n hours for Cancer 11 days. [place] sulfamethox 2022- No 1{tbl} Take 1 U nivers azole-trime -05-10 tablet by it y of thoprim 16:05: 00:00 mouth 3 [place] (BACTRIM 35 :00 (three) MD NICHOLE) 800 times a [place] mg-160 mg week n per tablet Friday, Cancer Friday Center and Friday. sulfamethox 2022- No 1{tbl} Take 1 U nivers azole-trime -05-10 tablet by it y of thoprim 16:05: 00:00 mouth 3 [place] (BACTRIM 35 :00 (three) MD NICHOLE) 800 times a [place] mg-160 mg week n per tablet Friday, Cancer Frines Center and Friday. sulfamethox 2022-3- No 1{tbl} Take 1 U nivers azole-trime 05-10 tablet by it y of thoprim 16:05: 00:00 mouth 3 Radha (BACTRIM 35 :00 (three) MD NICHOLE) 800 times a [place] mg-160 mg week n per tablet Friday, Cancer Frines Center and Friday. sulfamethox 2022-0 2022- No 1{tbl} Take 1 U nivers azole-trime 05-10 tablet by it y of thoprim 16:05: 00:00 mouth 3 Radha (BACTRIM 35 :00 (three) MD NICHLOE) 800 times a [place] mg-160 mg week n per tablet Friday, Cancer Frines Center and Friday. sulfamethox 2022-0 2022- No 1{tbl} Take 1 U nivers azole-trime 05-10 tablet by it y of thoprim 16:05: 00:00 mouth 3 [place] (BACTRIM 35 :00 (three) MD NICHOLE) 800 times a [place] mg-160 mg week n per tablet Friday, Cancer Friday Center and Friday. sulfamethox 2022-0 2022- No 1{tbl} Take 1 U nivers azole-trime 05-10 tablet by it y of thoprim 16:05: 00:00 mouth 3 [place] (BACTRIM 35 :00 (three) MD NICHOLE) 800 times a [place] mg-160 mg week n per tablet Friday, Cancer Frines Center and Friday. sulfamethox 2022-0 3- No 1{tbl} Take 1 U nivers azole-trime 05-10 tablet by it y of thoprim 16:05: 00:00 mouth 3 Radha (BACTRIM 35 :00 (three) MD NICHOLE) 800 times a [place] mg-160 mg week n per tablet Friday, Cancer Frines Center and Friday. sulfamethox 2022-0 2023- No 1{tbl} Take 1 U nivers azole-trime 1-13 01-13 tablet by it 16:05: 00:00 mouth 3 [place] (BACTRIM 35 :00 (three) MD NICHOLE) 800 times a [place] mg-160 mg week n per tablet Friday, [facility] and Friday. sodium Yes Bacteremia 10mL Infuse 10 [facility] chloride 1-13 mL ity of (NS) 0.9% 00:00: intravenou [place] injection 00 sly as MD flush needed for [place] syringe line care. [facility] sodium Yes Bacteremia 10mL Infuse 10 [facility] chloride 1-13 mL ity of (NS) 0.9% 00:00: intravenou [place] injection 00 sly as MD flush needed for [place] syringe line care. [facility] sodium Yes Bacteremia 10mL Infuse 10 [facility] chloride 1-13 mL ity of (NS) 0.9% 00:00: intravenou [place] injection 00 sly as MD flush needed for [place] syringe line care. [facility] sodium Yes Bacteremia 10mL Infuse 10 [facility] chloride 1-13 mL ity of (NS) 0.9% 00:00: intravenou [place] injection 00 sly as MD flush needed for [place] syringe line care. [facility] sodium 2022- No Bacteremia 10mL Infuse 10 [facility] chloride 1-13 02-28 mL ity of (NS) 0.9% 00:00: 00:00 intraven[place] injection 00 :00 sly as MD flush needed for [place] syringe line care. [facility] sodium 2022- No Bacteremia 10mL Infuse 10 [facility] chloride 1-13 02-28 mL ity of (NS) 0.9% 00:00: 00:00 intravenou [place] injection 00 :00 sly as MD flush needed for [place] syringe line care. [facility] sodium 2022- No Bacteremia 10mL Infuse 10 [facility] chloride 1-13 02-28 mL ity of (NS) 0.9% 00:00: 00:00 intravenou [place] injection 00 :00 sly as MD flush needed for [place] syringe line care. [facility] sodium 2023-0 202- No Bacteremia 10mL Infuse 10 [facility] chloride 13 02-28 mL ity of (NS) 0.9% 00:00: 00:00 intravenou [place] injection 00 :00 sly as MD flush needed for [place] syringe line care. n [facility] hydrOXYchlo Yes 200mg Take 1 Uni vers roQUINE 1-09 tablet ity of (PLAQUENIL) 06:07: (200 mg) [place] 200 mg 49 by mouth MD tablet twice [place] daily. n [facility] sulfaSALAzi Yes 500mg Take 1 Uni vers ne 1-09 tablet ity of (AZULFIDINE 06:07: (500 mg) [place] ) 500 mg 49 by mouth MD tablet twice [place] daily. n [facility] omeprazole Yes 20mg Take 1 Unive rs (PriLOSEC) 1-09 capsule ity of 20 mg 06:07: (20 mg) by [place] capsule 48 mouth MD every [place] morning n before Cancer breakfast. [place] sulfamethox Yes 1{tbl} Take 1 [facility] azole-trime 1-09 tablet by ity of thoprim 06:07: mouth 3 [place] (BACTRIM 48 (three) MD NICHOLE) 800 times a [place] [...] Chronic 50ug Place 1 Un [facility] (DURAGESIC) 05-05 pain after patch (50 ity of 50 mcg/hr 00:00: 00:00 cancer mcg[place] transdermal 00 :00 treatment the skin MD patch every 72 [place] hours. n Remove old Cancer patch(es) Center before replacing new patch(es). fentaNYL 2022- No Chronic 50ug Place 1 [facility] (DURAGESIC) 05-05 pain after patch (50 ity of 50 [...] Chronic 50ug Place 1 [facility] (DURAGESIC) 1-08 02-17 pain after patch (50 ity of 50 mcg/hr 00:00: 00:00 [place] mcg[place] transdermal 00 :00 treatment the skin MD patch every 72 [place] hours. n Remove old Cancer patch(es) Center before replacing new patch(es). HYDROmorpho 2023-0 2023- No Uncontrolle 4mg Take 1 [facility] ne 1-08 01-12 d pain tablet (4 ity of (DILAUDID) 00:00: 00:[place] 4 [place] tablet 00 :00 mouth MD every 6 [place] (six) n hours as Cancer needed for Center severe pain. HYDROmorpho 2023-0 2023- No Uncontrolle 4mg Take 1 [facility] ne - 01-12 d pain tablet (4 ity of (DILAUDID) 00:00: 00:00 [place] tablet 00 :00 mouth MD every 6 [place] (six) n hours as Cancer needed for Center severe pain. HYDROmorpho 2023-0 2023- No Uncontrolle 4mg Take 1 [facility] ne -11 26-12 d pain tablet (4 ity of (DILAUDID) 00:00: 00:00 [place] tablet 00 :00 mouth MD every 6 [place] (six) n hours as Cancer needed for Center severe pain. HYDROmorpho 2023-0 2023- No Uncontrolle 4mg Take 1 [facility] ne -11 26-12 d pain tablet (4 ity of (DILAUDID) 00:00: 00:00 [place] tablet 00 :00 mouth MD every 6 [place] (six) n hours as Cancer needed for Center severe pain. HYDROmorpho 2023-0 2023- No Uncontrolle 4mg Take 1 [facility] ne -11 26-12 d pain tablet (4 ity of (DILAUDID) 00:00: 00:[place] tablet 00 :00 mouth MD every 6 [place] (six) n hours as Cancer needed for Center severe pain. HYDROmorpho 2023-0 2023- No Uncontrolle 4mg Take 1 [facility] ne -11 26-12 d pain tablet (4 ity of (DILAUDID) [...] Cancer needed for Center severe pain. carbidopa-l 3-0 Yes 25{tbl} Take Uni vers evodopa 1-05 25-250 ity of (SINEMET) 00:00: tablets [place] 25-250 mg 00 mouth 3 MD per tablet (three) J[place] o times a n day. Cancer Center carbidopa-l 3-0 Yes 1{tbl} Take 1 [facility] evodopa 1-05 tablet by ity of (SINEMET) 00:00: mouth 3 [place] 25-250 mg 00 (three) MD per tablet times a Jaspal o day. n Cancer Center carbidopa-l 3-0 Yes 1{tbl} Take 1 [facility] evodopa 1-05 tablet by ity of (SINEMET) 00:00: mouth 3 [place] 25-250 mg 00 (three) MD per tablet times a Jaspal o day. n Cancer Center carbidopa-l 2023-0 Yes 1{tbl} Take 1 [facility] evodopa 1-05 tablet by ity of (SINEMET) 00:00: mouth 3 [place] 25-250 mg 00 (three) MD per tablet times a Jaspal o day. [facility] carbidopa-l 2022-0 Yes 1{tbl} Take 1 [facility] evodopa 1-05 tablet by ity of (SINEMET) 00:00: mouth 3 [place] 25-250 mg 00 (three) MD per tablet times a Jaspal o day. n [facility] carbidopa-l 2022-0 Yes 1{tbl} Take 1 Un [facility] evodopa 1-05 tablet by ity of (SINEMET) 00:00: mouth 3 [place] 25-250 mg 00 (three) MD per tablet times a Jaspal o day. [facility] carbidopa-l 2022-0 Yes 1{tbl} Take 1 Un [facility]illary evodopa 1-05 tablet by ity of (SINEMET) 00:00: mouth 3 [place] 25-250 mg 00 (three) MD per tablet times a Jaspal o day. [facility] carbidopa-l 2022-0 Yes 1{tbl} Take 1 Un [facility] evodopa 1-05 tablet by ity of (SINEMET) 00:00: mouth 3 [place] 25-250 mg 00 (three) MD per tablet times a Jaspal o day. [facility] carbidopa-l 2022-0 Yes 1{tbl} Take 1 Un [facility] evodopa 1-05 tablet by ity of (SINEMET) 00:00: mouth 3 [place] 25-250 mg 00 (three) MD per tablet times a Jaspal o day. [facility] carbidopa-l 2022-0 2023- Yes 1{tbl} Q.[id number] Take 1 [facility] evodopa 1-05 - [id number] tablet by [facility] (Sinemet) 00:00: 05:59 3D mouth 3 [facility] 25-250 mg 00 :00 (three) l per tablet times a day. carbidopa-l 2022-0 2023- Yes 1{tbl} Q.[id number] Take 1 [facility] evodopa 1-05 -[id number] (Sinemet) 00:00: 05:59 3D mouth 3 [facility] 25-250 mg 00 :00 (three) l per tablet times a day. carbidopa-l 2022-0 2023- Yes 1{tbl} Q.[id number] Take 1 [facility] evodopa 1-08 26- [id number] tablet [address] (Sinemet) 00:00: 05:59 3D mouth 3 [facility] 25-250 mg 00 :00 (three) l per tablet times a day. carbidopa-l 3-0 2023- Yes 1{tbl} Q.[id number] Take 1 [facility] evodopa 1-08 26- [id number] tablet by st (Sinemet) 00:00: 05:59 3D mouth 3 [facility] 25-250 mg 00 :00 (three) l per tablet times a day. carbidopa-l 2022-0 2023- Yes 1{tbl} Q.[id number] Take 1 [facility] evodopa 1-08 26- [id number] tablet by [facility] (Sinemet) 00:00: 05:59 3D mouth 3 [facility] 25-250 mg 00 :00 (three) l per tablet times a day. carbidopa-l 2022-0 2023- Yes 1{tbl} Q.[id number] Take 1 [facility] evodopa 1-05-[id number] (Sinemet) 00:00: 05:59 3D mouth 3 [facility] 25-250 mg 00 :00 (three) l per tablet times a day. carbidopa-l 2022-0 2023- Yes 1{tbl} Q.[id number] Take 1 [facility] evodopa 1-05-[id number] (Sinemet) 00:00: 05:59 3D mouth 3 [facility] 25-250 mg 00 :00 (three) l per tablet times a day. carbidopa-l 2022-0 2023- Yes 1{tbl} Q.[id number] Take 1 [facility] evodopa 1-08 26- [id number] tablet [facility] (Sinemet) 00:00: 05:59 3D mouth 3 [facility] 25-250 mg 00 :00 (three) l per tablet times a day. carbidopa-l 3-0 2023- Yes 1{tbl} Q.[id number] Take 1 [facility] evodopa 1-08 26- [id number] tablet [address] (Sinemet) 00:00: 05:59 3D mouth 3 [facility] 25-250 mg 00 :00 (three) l per tablet times a day. carbidopa-l 2023- Yes 1{tbl} Q.[id number] Take 1 [facility] evodopa 05-02- [id number] tablet by [facility] (Sinemet) 00:00: 05:59 3D mouth 3 [facility] 25-250 mg 00 :00 (three) l per tablet times a day. carbidopa-l 2023- Yes 1{tbl} Q.[id number] Take 1 [facility] evodopa 05-[id number] (Sinemet) 00:00: 05:59 3D mouth 3 [facility] 25-250 mg 00 :00 (three) l per tablet times a day. gabapentin 2021-04 Yes 900mg Take 1.5 [facility] (NEURONTIN) 2-23 tablets ity o f 600 mg 00:00: (900 mg) [place] tablet 00 by mouth 3 MD (three) [place] times a n day. [facility] gabapentin 2021-04 Yes 900mg Take 1.5 Un [facility] (NEURONTIN) 2-23 tablets ity o f 600 mg 00:00: (900 mg) [place] tablet 00 by mouth 3 MD (three) [place] times a n day. [facility] gabapentin 2021-04 Yes 900mg Take 1.5 Un [facility]illary (NEURONTIN) 2-23 tablets ity o f 600 mg 00:00: (900 mg) [place] tablet 00 by mouth 3 (three) [place] times a n day. [facility] gabapentin 2021-04 Yes 900mg Take 1.5 Un [facility]illary (NEURONTIN) 2-23 tablets ity o f 600 mg 00:00: (900 mg) [place] tablet 00 by mouth 3 MD (three) [place] times a n day. [facility] gabapentin 2021-04 Yes 900mg Take 1.5 Un [facility] (NEURONTIN) 2-23 tablets ity o f 600 mg 00:00: (900 mg) [place] tablet 00 by mouth 3 (three) [place]o times a n day. [facility] gabapentin 2021-04- No 900mg Take 1.5 U nivers (NEURONTIN) 2-23 -28 tablets ity of 600 mg 00:00: 00:00 (900 mg) [place] tablet 00 :00 by mouth 3 MD (three) [place] times a n day. Cancer Center gabapentin 2021-04- No 900mg Take 1.5 U nivers (NEURONTIN) 06-20 tablets ity of 600 mg 00:00: 00:00 (900 mg) [place] tablet 00 :00 by mouth 3 MD (three) [place] times a n day. Cancer Center gabapentin 2021-04- No 900mg Take 1.5 U nivers (NEURONTIN) 06-20 tablets ity of 600 mg 00:00: 00:00 (900 mg) [place] tablet 00 :00 by mouth 3 MD (three) [place] times a n day. Cancer Center gabapentin 2021-04- No 900mg Take 1.5 U nivers (NEURONTIN) 06-20 tablets ity of 600 mg 00:00: 00:00 (900 mg) [place] tablet 00 :00 by mouth 3 MD (three) [place] times a n day. Cancer Center HYDROmorpho 2021-04- No Uncontrolle 4mg Take 1 [...] No Uncontrolle 4mg Take 1 [facility] ne -19 05- d pain tablet (4 ity of [...] No Uncontrolle 4mg Take 1 [facility] ne -19 05-06 d pain tablet (4 ity of (DILAUDID) 00:00: 00:00 [place] 4 [place] tablet 00 :00 mouth MD every 6 [place] (six) n hours as Cancer needed for Center severe pain. HYDROmorpho 2021-04- No Uncontrolle 4mg Take 1 [facility] ne -19 05-06 d pain tablet (4 ity of [...] Cancer catheter Center daily as directed. sodium 2022-1 Yes Diffuse Inject 10 Uni vers chloride [...] specified day for 10 Canc er days. [place] metroNIDAZO 2021-04- No Diffuse 500mg Take 1 [facility] LE (FlagyL) 05-19 large tablet ity of 500 mg 00:00: 05:59 B-cell (500 mg) [place] tablet 00 :00 lymphoma, by mouth 3 MD not (three) Anderso otherwise times a n specified day for 10 Canc er days. [place] metroNIDAZO 2021-04- No Diffuse 500mg Take 1 [facility] LE (FlagyL) 05-19 large tablet ity of 500 mg 00:00: 05:59 B-cell (500 mg) [place] tablet 00 :00 lymphoma, by mouth 3 MD not (three) Anders[place] otherwise times a n specified day for 10 Canc er days. [place] metroNIDAZO 2021-04- No Diffuse 500mg Take 1 [facility] LE (FlagyL) 05-19 large tablet ity of 500 mg 00:00: 05:59 B-cell (500 mg) [place] tablet 00 :00 lymphoma, by mouth 3 MD not (three) Anderso otherwise times a n specified day for 10 Canc er days. [place] metroNIDAZO 2021-04- No Diffuse 500mg Take 1 [facility] LE (FlagyL) 05-19 large tablet ity of 500 mg 00:00: 05:59 B-cell (500 mg) [place] tablet 00 :00 lymphoma, by mouth 3 MD not (three) [place] otherwise times a n specified day for 10 Canc er days. [place] metroNIDAZO 2021-04- No Diffuse 500mg Take 1 [facility] LE (FlagyL) 05-19 large tablet ity of 500 mg 00:00: 05:59 B-cell (500 mg) [place] tablet 00 :00 lymphoma, by mouth 3 MD not (three) [place] otherwise times a n specified day for 10 Canc er days. [place] metroNIDAZO 2021-04- No Diffuse 500mg Take 1 [facility] LE (FlagyL) 05-19 large tablet ity of 500 mg 00:00: 05:59 B-cell (500 mg) [place] tablet 00 :00 lymphoma, by mouth 3 MD not (three) Anderso otherwise times a n specified day for 10 Canc er days. [place] metroNIDAZO 2021-04- No Diffuse 500mg Take 1 [facility] LE (FlagyL) 05-19 large tablet ity of 500 mg 00:00: 05:59 B-cell (500 mg[place] tablet 00 :00 lymphoma, by mouth 3 MD not (three) Anderso otherwise times a n specified day for 10 Canc er days. [place] metroNIDAZO 2021-04- No Diffuse 500mg Take 1 [facility] LE (FlagyL) 05-19 large tablet ity of 500 mg 00:00: 05:59 B-cell (500 mg) [place] tablet 00 :00 lymphoma, by mouth 3 MD not (three) Anderso otherwise times a n specified day for 10 Canc er days. Center fentaNYL 2021-04- No Chronic [address] Place 1 [facility] (DURAGESIC) 05-05 pain after patch (50 ity of 50 mcg/hr 00:00: 00:00 [place]cg[place] trans[place] 00 :00 treatment the skin MD patch every 72 [place] hours. n Remove old Cancer patch(es) Center before replacing new patch(es). fentaNYL 2021-04- No Chronic [address] Place 1 [facility] (DURAGESIC) 05-05 pain after patch (50 ity of 50 mcg/hr 00:00: 00:00 [place] mcg[place] trans[place] 00 :00 treatment the skin MD patch every 72 [place] hours. n Remove old Cancer patch(es) Center before replacing new patch(es). fentaNYL 2021-04- No Chronic [address] Place 1 [facility] (DURAGESIC) 05-05 pain after patch (50 ity of 50 mcg/hr 00:00: 00:00 [place] mcg[place] trans[place] 00 :00 treatment the skin MD patch every 72 [place] hours. n Remove old Cancer patch(es) Center before replacing new patch(es). fentaNYL 2021-04- No Chronic [address] Place 1 [facility] (DURAGESIC) 05-05 pain after patch (50 ity of 50 mcg/hr 00:00: 00:00 cancer mcg) [place] transdermal 00 :00 treatment the skin MD patch every 72 [place] hours. n Remove old Cancer patch(es) Center before replacing new patch(es). fentaNYL 2021-04- No Chronic [address] Place 1 [facility] (DURAGESIC) 05-05 pain after patch (50 ity of 50 mcg/hr 00:00: 00:00 [place] mcg[place] transder[place] 00 :00 treatment the skin MD patch every 72 [place] hours. n Remove old Cancer patch(es) Center before replacing new patch(es). fentaNYL 2021-04- No Chronic [address] Place 1 [facility] (DURAGESIC) 05-05 pain after patch (50 ity of 50 mcg/hr 00:00: 00:00 cancer mcg) [place] transder[place] 00 :00 treatment the skin MD patch every 72 [place] hours. n Remove old Cancer patch(es) Center before replacing new patch(es). fentaNYL 2021-04- No Chronic [address] Place 1 [facility] (DURAGESIC) 05-05 pain after patch (50 ity of 50 [...] Chronic 50ug Place 1 [facility] (DURAGESIC) 05-05 pain after patch (50 ity of 50 mcg/hr 00:00: 00:00 [place] mcg[place] trans[place] 00 :00 treatment the skin MD patch every 72 [place] hours. n Remove old Cancer patch(es) Center before replacing new patch(es). predniSONE 2021-04 Yes Diffuse 80mg Take 8 [facility] (DELTASONE) 04-28 large tablets ity of 10 [...] Diffuse 80mg Take 8 U nivers (DELTASONE) 04-2816 large tablets ity of 10 mg 00:00: 00:00 B-cell (80 mg) by [place] tablet 00 :00 lymphoma, mouth MD not daily. [place] otherwise Take days n specified 1-5 of [facility] py. predniSONE 2021-04- No Diffuse 80mg Take 8 U nivers (DELTASONE) 04-2816 large tablets ity of 10 mg 00:00: 00:00 B-cell (80 mg) by [place] tablet 00 :00 lymphoma, mouth MD not daily. [place] otherwise Take days n specified 1-5 of [facility] py. predniSONE 2021-04- No Diffuse 80mg Take 8 U nivers (DELTASONE) 04-2816 large tablets ity of 10 mg 00:00: 00:00 B-cell (80 mg) by [place] tablet 00 :00 lymphoma, mouth MD not daily. [place] otherwise Take days n specified 1-5 of [facility] py. predniSONE 2021-04- No Diffuse 80mg Take 8 U nivers (DELTASONE) 04-2816 large tablets ity of 10 mg 00:00: 00:00 B-cell (80 mg) by [place] tablet 00 :00 lymphoma, mouth not daily. [place] otherwise Take days n specified 1-5 of [facility] py. predniSONE 2021-04- No Diffuse 80mg Take 8 U nivers (DELTASONE) 04-2816 large tablets ity of 10 mg 00:00: [...] of mg tablet 00:00: [facility] mouth MD not every 8 [place] otherwise (eight) n specified hours as Cancer needed for Center nausea or vomiting. ondansetron 2021-04 Yes Diffuse 8mg Take 1 U nivers (Zofran) 8 0-12 large tablet (8 ity of mg tablet 00:00: [facility], mouth MD not every 8 [place] otherwise (eight) n specified hours as Cancer needed for Center nausea or vomiting. ondansetron 2021-04 Yes Diffuse 8mg Take 1 U nivers (Zofran) 8 0-12 large tablet (8 ity of mg tablet 00:00: [facility], mouth MD not every 8 [place] otherwise (eight) n specified hours as Cancer needed for Center nausea or vomiting. ondansetron 2021-04 Yes Diffuse 8mg Take 1 U nivers (Zofran) 8 0-12 large tablet (8 ity of mg tablet 00:00: [facility], mouth MD not every 8 [place] otherwise (eight) n specified hours as Cancer needed for Center nausea or vomiting. ondansetron 2021-04 Yes Diffuse 8mg Take 1 U nivers (Zofran) 8 0-12 large tablet (8 ity of mg tablet 00:00: [facility]cell [facility] lymphoma, mouth MD not every 8 [place] otherwise (eight) n specified hours as Cancer needed for Center nausea or vomiting. ondansetron 2021-04 Yes Diffuse 8mg Take 1 U nivers (Zofran) 8 0-12 large tablet (8 ity of mg tablet 00:00: [facility] lymphoma, mouth MD not every 8 [place] otherwise (eight) n specified hours as Cancer needed for Center nausea or vomiting. ondansetron 2021-04 Yes Diffuse 8mg Take 1 U nivers (Zofran) 8 0-12 large tablet (8 ity of mg tablet 00:00: [facility] lymphoma, mouth MD not every [...] Cancer needed for Center severe pain. HYDROmorpho 2021-04 No Uncontrolle 4mg Take 1 [facility] ne 0-08 12-22 d pain tablet (4 ity of (DILAUDID) 00:00: 00:00 [place] 4 [place] tablet 00 :00 mouth MD every 6 [place] (six) n hours as Cancer needed for Center severe pain. fentaNYL 2021-[address] 1 [...] Diffuse .5mg Take 1 Uni vers (BARACLUDE) 01-16 large tablet ity o f 0.5 mg [...] Diffuse .5mg Take 1 Uni vers (BARACLUDE) 01-16 large tablet ity o f 0.5 mg 00:00: B-cell (0.5 mg) [place] tablet 00 lymphoma, by mouth MD not daily. [place]o otherwise n specified Cancer [place] valACYclovi Yes Diffuse 500mg Take 1 Univers r (VALTREX) 01-16 large tablet ity o f 500 mg 00:00: B-cell (500 mg) [place] tablet 00 lymphoma, by mouth MD not daily. Anderso otherwise n specified [facility] predniSONE 2021- No Diffuse 80mg Take 8 [...] No Uncontrolle 4mg Take 1 [facility] ne 12-28- d pain tablet (4 ity of (DILAUDID) 00:00: 00:00 [place] tablet 00 :00 mouth MD every 6 [place] (six) n hours as Cancer needed for Center severe pain. HYDROmorpho 2021- No Uncontrolle 4mg Take 1 [facility] ne 12-28- d pain tablet (4 ity of (DILAUDID) [...] ity of (DILAUDID) 00:00: 00:00 mg) by [facility] [place] 4 mg tablet 00 :00 mouth MD every 6 [place] (six) n hours as Cancer needed for Center severe pain. pregabalin Yes Diffuse 75mg Take 1 Un hillary (Lyrica) 75 8- large capsule ity of mg capsule 00:00: B-cell (75 mg) by [place] 00 lymphoma, mouth at MD not bedtime. Anderso otherwise n specified Cancer Center pregabalin 2022- No Diffuse 75mg Take 1 U nivers (Lyrica) 75 12-23-16 large capsule ity of mg capsule 00:00: 00:00 B-cell (75 mg) by [place] 00 :00 lymphoma, mouth at MD not bedtime. Anderso otherwise n specified Cancer Center pregabalin 2022- No Diffuse 75mg Take 1 U nivers (Lyrica) 75 12-23 large capsule ity of mg capsule 00:00: 00:00 B-cell (75 mg) by [place] 00 :00 lymphoma, mouth at MD not bedtime. Anderso otherwise n specified Cancer Center pregabalin 2022- No Diffuse 75mg Take 1 U nivers (Lyrica) 75 12-23-16 large capsule ity of mg capsule 00:00: 00:00 B-cell (75 mg) by [place] 00 :00 lymphoma, mouth at MD not bedtime. Anderso otherwise n specified Cancer Center pregabalin 2022- No Diffuse 75mg Take 1 U nivers (Lyrica) 75 12-23-16 large capsule ity of mg capsule 00:00: 00:00 B-cell (75 mg) by [place] 00 :00 lymphoma, mouth at MD not bedtime. Anderso otherwise n specified Cancer Center pregabalin 2022- No Diffuse 75mg Take 1 U nivers (Lyrica) 75 12-23-16 large capsule ity of mg capsule 00:00: 00:00 B-cell (75 mg) by [place] 00 :00 lymphoma, mouth at MD not bedtime. Anderso otherwise n specified Cancer Center pregabalin 2022- No Diffuse 75mg Take 1 U nivers (Lyrica) 75 12-23 large capsule ity of mg capsule 00:00: 00:00 B-cell (75 mg) by [place] 00 :00 lymphoma, mouth at MD not bedtime. Anderso otherwise n specified Cancer Center pregabalin 2022- No Diffuse 75mg Take 1 U nivers (Lyrica) 75 12-23 large capsule ity of mg capsule 00:00: 00:00 B-cell (75 mg) by [place] 00 :00 lymphoma, mouth at MD not bedtime. Anderso otherwise n specified Cancer Center pregabalin 2022- No Diffuse 75mg Take 1 U nivers (Lyrica) 75 12-23 large capsule ity of mg capsule 00:00: 00:00 B-cell (75 mg) by [place] 00 :00 lymphoma, mouth at MD not [...] 16 (four) l times a day. omeprazole 0 Yes 40mg QD Take 40 mg M [facility]i (PriLOSEC) 8-[address] 40 MG 10:38: [facility]. [facility] capsule 16 l gabapentin Yes 300mg Q.25D Take 300 M ethodi (NEURONTIN) 8-[address] 600 mg 10:38: mouth 4 [facility] tablet 16 (four) l times a day. omeprazole 0 Yes 40mg QD Take 40 mg M [...] daily. [facility]osp[facility] capsule 16 l carbidopa-l 2022-0 2023- No 2{tbl} Q.[id number] Take 2 [facility] evodopa 12-[id number] (Sinemet) 00:00: 00:00 3D mouth 3 [facility] 25-100 mg 00 :00 (three) l per tablet times a day for 360 days. carbidopa-l 2022-0 2023- No 2{tbl} Q.[id number] Take 2 [facility] evodopa 12-[id number] (Sinemet) 00:00: 00:00 3D mouth 3 [facility] 25-100 mg 00 :00 (three) l per tablet times a day for 360 days. carbidopa-l 2022-0 2023- No 2{tbl} Q.[id number] Take 2 [facility] evodopa 12-[id number] (Sinemet) 00:00: 00:00 3D mouth 3 [facility] 25-100 mg 00 :00 (three) l per tablet times a day for 360 days. carbidopa-l 2022-0 2023- No 2{tbl} Q.[id number] Take 2 [facility] evodopa 12-[id number] (Sinemet) 00:00: 00:00 3D mouth 3 [facility] 25-100 mg 00 :00 (three) l per tablet times a day for 360 days. carbidopa-l 2022-0 2023- No 2{tbl} Q.[id number] Take 2 [facility] evodopa 12-[id number] (Sinemet) 00:00: 00:00 3D mouth 3 [facility] 25-100 mg 00 :00 (three) l per tablet times a day for 360 days. carbidopa-l 2022-0 2023- No 2{tbl} Q.[id number] Take 2 [facility] evodopa 12-[id number] (Sinemet) 00:00: 00:00 3D mouth 3 [facility] 25-100 mg 00 :00 (three) l per tablet times a day for 360 days. carbidopa-l 2022-0 2023- No 2{tbl} Q.[id number] Take 2 [facility] evodopa 12-[id number] (Sinemet) 00:00: 00:00 3D mouth 3 [facility] 25-100 mg 00 :00 (three) l per tablet times a day for 360 days. carbidopa-l 2022-0 2023- No 2{tbl} Q.[id number] Take 2 [facility] evodopa 12-[id number] (Sinemet) 00:00: 00:00 3D mouth 3 [facility] 25-100 mg 00 :00 (three) l per tablet times a day for 360 days. carbidopa-l 2022-0 2023- No 2{tbl} Q.[id number] Take 2 [facility] evodopa 12-[id number] (Sinemet) 00:00: 00:00 3D mouth 3 [facility] 25-100 mg 00 :00 (three) l per tablet times a day for 360 days. carbidopa-l 2021-2022- No 2{tbl} Q.[id number] Take 2 [facility] evodopa 12-[id number] (Sinemet) 00:00: 00:00 3D mouth 3 [facility] 25-100 mg 00 :00 (three) l per tablet times a day for 360 days. carbidopa-l 2021-2022- No 2{tbl} Q.[id number] Take 2 [facility] evodopa 12-[id number] (Sinemet) 00:00: 00:00 3D mouth 3 [facility] 25-100 mg 00 :00 (three) l per tablet times a day for 360 days. amoxicillin 2021-2021- No 500mg Take 500 [facility] (AMOXIL) 11-26 08-01 mg by ity of 500 MG 18:42: 00:00 mouth [place] tablet 42 :00 every 8 MD (eight) Anderso hours. [facility] amoxicillin 2021- No 500mg Take 500 [facility] (AMOXIL) 11-26 08-01 mg by ity of 500 MG 18:42: 00:00 mouth [place] tablet 42 :00 every 8 MD (eight) [place]o hours. [facility] amoxicillin 2021-2021- No 500mg Take 500 [facility] (AMOXIL) 11-26 08-01 mg by ity of 500 MG 18:42: 00:00 mouth [place] tablet 42 :00 every 8 MD (eight) Anderso hours. [facility] amoxicillin 2021-0 2021- No 500mg Take 500 [facility] (AMOXIL) 11-26 08-01 mg by ity of 500 MG 18:42: 00:00 mouth [place] tablet 42 :00 every 8 MD (eight) Anderso hours. [facility] amoxicillin 2021- No 500mg Take 500 [facility] (AMOXIL) 11-26 08-01 mg by ity of 500 MG 18:42: 00:00 mouth [place] tablet 42 :00 every 8 MD (eight) Anderso hours. [facility] amoxicillin 2021- No 500mg Take 500 [facility] (AMOXIL) 11-26- mg by ity of 500 MG 18:42: 00:00 mouth [place] tablet 42 :00 every 8 MD (eight) Anderso hours. [facility] amoxicillin 2021- No 500mg Take 500 [facility] (AMOXIL) 11-26- mg by ity of 500 MG 18:42: 00:00 mouth [place] tablet 42 :00 every 8 MD (eight) Anderso hours. [facility] amoxicillin 2021- No 500mg Take 500 [facility] (AMOXIL) 11-26- mg by ity of 500 MG 18:42: 00:00 mouth [place] tablet 42 :00 every 8 MD (eight) Anderso hours. [facility] amoxicillin 2021- No 500mg Take 500 [facility] (AMOXIL) 11-26 mg by ity of 500 MG 18:42: 00:00 mouth [place] tablet 42 :00 every 8 MD (eight) Anderso hours. [facility] carbidopal 2021- No 1{tbl} Take 1 U nivers evodopa 11-26 tablet by ity of (SINEMET) 14:55: 00:00 mouth [place] mg-100 46 :00 (three) MD mg per times a [place] tablet day. [facility] carbidopal 2021- No 1{tbl} Take 1 U nivers evodopa 11-26 tablet by ity of (SINEMET) 14:55: 00:00 mouth [place] mg-100 46 :00 (three) MD mg per times a [place] tablet day. [facility] carbidopal 2021- No 1{tbl} Take 1 U nivers evodopa 11-26 tablet by ity of (SINEMET) 14:55: 00:00 mouth [place] mg-100 46 :00 (three) MD mg per times a [place] tablet day. [facility] carbidopal 2021- No 1{tbl} Take 1 U nivers evodopa 11-26 tablet by ity of (SINEMET) 14:55: 00:00 mouth [place] mg-100 46 :00 (three) MD mg per times a [place] tablet day. [facility] carbidopal 2021- No 1{tbl} Take 1 U nivers evodopa 11-26 tablet by ity of (SINEMET) 14:55: 00:00 mouth [place] mg-100 46 :00 (three) MD mg per times a [place] tablet day. [facility] carbidopal 2021- No 1{tbl} Take 1 U nivers evodopa 11-26 tablet by ity of (SINEMET) 14:55: 00:00 mouth [place] mg-100 46 :00 (three) MD mg per times a [place] tablet day. [facility] carbidopal 2021- No 1{tbl} Take 1 U nivers evodopa 11-26 tablet by ity of (SINEMET) 14:55: 00:00 mouth [place] mg-100 46 :00 (three) MD mg per times a [place] tablet day. [facility] carbidopal 2021- No 1{tbl} Take 1 U nivers evodopa 11-26 tablet by ity of (SINEMET) 14:55: 00:00 mouth [place] mg-100 46 :00 (three) MD mg per times a [place] tablet day. [facility] carbidopal 2021- No 1{tbl} Take 1 U nivers evodopa 11-26 tablet by ity of (SINEMET) 14:55: 00:00 mouth [place] mg-100 46 :00 (three) MD mg per times a [place] tablet day. [facility] carbidopal Yes Parkinson's 1{tbl} Take 1 [facility] evodopa 8 disease tablet by ity of (SINEMET) 00:00: mouth 3 [place] 25 mg-100 00 (three) MD mg per times a [place] tablet day. [facility] carbidopal 2022- No Parkinson's 1{tbl} Take 1 [facility] evodopa 8-01 01-16 disease tablet by ity of (SINEMET) 00:00: 00:00 mouth [place] mg-100 00 :00 (three) MD mg per times a [place] tablet day. [facility] carbidopa-l 2022- No Parkinson's 1{tbl} Take 1 [facility] evodopa 11-26 disease tablet by ity of (SINEMET) 00:00: 00:00 mouth [place] mg-100 00 :00 (three) MD mg per times a [place] tablet day. [facility] carbidopal 2022- No Parkinson's 1{tbl} Take 1 [facility] evodopa 11-26 disease tablet by ity of (SINEMET) 00:00: 00:00 mouth [place] mg-100 00 :00 (three) MD mg per times a [place] tablet day. [facility] carbidopal 2022- No Parkinson's 1{tbl} Take 1 [facility] evodopa 11-26 disease tablet by ity of (SINEMET) 00:00: 00:00 mouth [place] mg-100 00 :00 (three) MD mg per times a [place] tablet day. [facility] carbidopal 2022- No Parkinson's 1{tbl} Take 1 [facility] evodopa 11-26 disease tablet by ity of (SINEMET) 00:00: 00:00 mouth [place] mg-100 00 :00 (three) MD mg per times a [place] tablet day. [facility] carbidopal 2022- No Parkinson's 1{tbl} Take 1 [facility] evodopa 11-26 disease tablet by ity of (SINEMET) 00:00: 00:00 mouth [place] mg-100 00 :00 (three) MD mg per times a [place] tablet day. [facility] carbidopal 2022- No Parkinson's 1{tbl} Take 1 [facility] evodopa 11-26 disease tablet by ity of (SINEMET) 00:00: 00:00 mouth [place] mg-100 00 :00 (three) MD mg per times a [place] tablet day. [facility] carbidopa-l 2022- No Parkinson's 1{tbl} Take 1 [facility] evodopa 816 disease tablet by ity of (SINEMET) 00:00: 00:00 mouth [place] mg-100 00 :00 (three) MD mg per times a [place] tablet day. [facility] fentaNYL 2021- No Chronic 50ug Place 1 [...] Cancer needed for Center severe pain. HYDROmorpho 202-0 2022- No Uncontrolle 4mg Take 1 [facility] ne 11-21- d pain tablet (4 ity of (DILAUDID) 00:00: 00:00 mg[place] tablet 00 :00 mouth MD every 6 [place] (six) n hours as Cancer needed for Center severe pain. HYDROmorpho 202-0 202- No Uncontrolle 4mg Take 1 [facility] ne 11-21- d pain tablet (4 ity of (DILAUDID) 00:00: 00:00 mg[place] mg tablet 00 :00 mouth MD every 6 [place] (six) n hours as Cancer needed for Center severe pain. HYDROmorpho 2022-0 202- No Uncontrolle 4mg Take 1 [facility] ne 11-21- d pain tablet (4 ity of (DILAUDID) 00:00: 00:00 mg[place] 4 mg tablet 00 :00 mouth MD every 6 [place] (six) n hours as Cancer needed for Center severe pain. HYDROmorpho 2022-0 202- No Uncontrolle 4mg [...] MD (three) [place] times a n day. [facility] gabapentin 2022- No Uncontrolle 800mg Take 1 [facility] (NEURONTIN) 11-0816 d pain tablet ity of 800 mg 00:00: 00:00 (800 mg) [place] tablet 00 :00 by mouth 3 MD (three) [place] times a n day. [facility] gabapentin 2022- No Uncontrolle 800mg Take 1 [facility] (NEURONTIN) 11-0816 d pain tablet ity of 800 mg 00:00: 00:00 (800 mg) [place] tablet 00 :00 by mouth 3 MD (three) [place] times a n day. [facility] gabapentin 2022- No Uncontrolle 800mg Take 1 [facility] (NEURONTIN) 11-0816 d pain tablet ity of 800 mg 00:00: 00:00 (800 mg) [place] tablet 00 :00 by mouth 3 MD (three) [place] times a n day. [facility] gabapentin 2022- No Uncontrolle 800mg Take 1 [facility] (NEURONTIN) 11-08-16 d pain tablet ity of 800 mg 00:00: 00:00 (800 mg) [place] tablet 00 :00 by mouth 3 MD (three) [place] times a n day. [facility] gabapentin 2022- No Uncontrolle 800mg Take 1 [facility] (NEURONTIN) 11-08-16 d pain tablet ity of 800 mg 00:00: 00:00 (800 mg) [place] tablet 00 :00 by mouth 3 MD (three) [place] times a n day. [facility] gabapentin 2022- No Uncontrolle 800mg Take 1 [facility] (NEURONTIN) 11-08 d pain tablet ity of 800 mg 00:00: 00:00 (800 mg) [place] tablet 00 :00 by mouth 3 MD (three) [place] times a n day. [facility] gabapentin 2022- No Uncontrolle 800mg Take 1 [facility] (NEURONTIN) 11-08 d pain tablet ity of 800 mg 00:00: 00:00 (800 mg) [place] tablet 00 :00 by mouth 3 MD (three) [place] times a n day. [facility] gabapentin 2022- No Uncontrolle 800mg Take 1 [facility] (NEURONTIN) 11-08 d pain tablet ity of 800 mg [...] multiple days. n sites [facility] amoxicillin 0 2021- No Abscess 500mg Take 1 Univers [...] rso USE) of multiple n sites Cancer [place] ertapenem 2021- No Diffuse 1000mg Infuse [facility] (INVanz) IV 11-08 large 1,000 mg it y of prescriptio 00:00: 04:59 B-cell intravenou [place] n (Home 00 :00 lymphoma of sly daily MD Use) lymph nodes for 7 Anderso of multiple days. n sites [facility] [place] amoxicillin 2021- No Abscess 500mg Take 1 [facility] (AMOXIL) 11-08 with capsule ity of 500 mg 00:00: 04:59 diverticula (500 mg) [place] capsule 00 :00 r disease by mouth MD of colon every 8 [place]o (eight) n hours for Cancer 7 days. [place] caspofungin 2021- No Diffuse Infuse [facility] (CANCIDAS) 11-08 large intravenou i ty of IV 00:00: 04:59 B-cell sly daily [place] prescriptio 00 :00 lymphoma of for 7 MD n (HOME lymph nodes days. [place] rso USE) of multiple n sites [facility] [place] ertapenem 2021- No Diffuse 1000mg Infuse [facility] (INVanz) IV 11-08 large 1,000 mg it y of prescriptio 00:00: 04:59 B-cell intravenou [place] n (Home 00 :00 lymphoma of sly daily MD Use) lymph nodes for 7 [place] of multiple days. n sites [facility] [place] amoxicillin 2021- No Abscess 500mg Take 1 [facility] (AMOXIL) 11-08 with capsule ity of 500 mg 00:00: 04:59 diverticula (500 mg) [place] capsule 00 :00 r disease by mouth MD of colon every 8 [place]o (eight) n hours for Cancer 7 days. [place] caspofungin 2021- No Diffuse Infuse [facility] (CANCIDAS) 11-08 large intravenou i ty of IV 00:00: 04:59 B-cell sly daily [place] prescriptio 00 :00 lymphoma of for 7 MD n (HOME lymph nodes days. [place] rso USE) of multiple n sites [facility] [place] ertapenem 2021- No Diffuse 1000mg Infuse [facility] (INVanz) IV 11-08 large 1,000 mg it y of prescriptio 00:00: 04:59 B-cell intravenou [place] n (Home 00 :00 lymphoma of sly daily MD Use) lymph nodes for 7 Anderso of multiple days. n sites [facility] [place] amoxicillin 2021- No Abscess 500mg Take 1 [facility] (AMOXIL) 11-08 with capsule ity of 500 mg 00:00: 04:59 diverticula (500 mg) [place] capsule 00 :00 r disease by mouth MD of colon every 8 [place] (eight) n hours for Cancer 7 days. [place] caspofungin 2021- No Diffuse Infuse [facility] (CANCIDAS) 11-08 large intravenou i ty of IV 00:00: 04:59 B-cell sly daily [place] prescriptio 00 :00 lymphoma of for 7 MD n (HOME lymph nodes days. [place] rso USE) of multiple n sites [facility] [place] ertapenem 2021- No Diffuse 1000mg Infuse [facility] (INVanz) IV 11-08 large 1,000 mg it y of prescriptio 00:00: 04:59 B-cell intravenou [place] n (Home 00 :00 lymphoma of sly daily MD Use) lymph nodes for 7 [place]o of multiple days. n sites [facility] [place] amoxicillin 2021- No Abscess 500mg Take 1 [...] (eight) n hours for Cancer 7 days. [place] entecavir 2021- No .5mg Take 0.5 Uni vers (BARACLUDE) 6-27 06-27 mg by ity of 0.5 mg 10:07: 00:00 mouth [place] tablet 23 :00 daily. MD Robert saucedo [facility] entecavir 2021- No .5mg Take 0.5 Uni vers (BARACLUDE) 6-27 06-27 mg by ity of 0.5 mg 10:07: 00:00 mouth [place] tablet 23 :00 daily. MD Robert saucedo [facility] entecavir 2021- No .5mg Take 0.5 Uni vers (BARACLUDE) 6-27 06-27 mg by ity of 0.5 mg 10:07: 00:00 mouth [place] tablet 23 :00 daily. MD Robert saucedo [facility] entecavir 0 2021- No .5mg Take 0.5 Uni vers (BARACLUDE) 6-27 06-27 mg by ity of 0.5 mg 10:07: 00:00 mouth [place] tablet 23 :00 daily. MD Robert saucedo [facility] entecavir 2021- No .5mg Take 0.5 Uni vers (BARACLUDE) 6-27 06-27 mg by ity of 0.5 mg 10:07: 00:00 mouth [place] tablet 23 :00 daily. MD Robert saucedo [facility] entecavir 2021- No .5mg Take 0.5 Uni vers (BARACLUDE) 6-27 06-27 mg by ity of 0.5 mg 10:07: 00:00 mouth [place] tablet 23 :00 daily. MD Robert saucedo [facility] entecavir 2021- No .5mg Take 0.5 Uni vers (BARACLUDE) 6-27 06-27 mg by ity of 0.5 mg 10:07: 00:00 mouth [place] tablet 23 :00 daily. MD Robert saucedo [facility] entecavir 2021- No .5mg Take 0.5 Uni vers (BARACLUDE) 6-27 06-27 mg by ity of 0.5 mg 10:07: 00:00 mouth [place] tablet 23 :00 daily. MD Robert saucedo [facility] entecavir 2021- No .5mg Take 0.5 Uni vers (BARACLUDE) 6-27 06-27 mg by ity of 0.5 mg 10:07: 00:00 mouth [place] tablet 23 :00 daily. MD Robert saucedo [facility] ciprofloxac 2021- No Bladder 500mg Take 1 [...] cystogram. Day of, and day after ciprofloxac 2022-0 2022- No Bladder 500mg Take 1 [facility] in HCl 10-22 fistula tablet ity of (CIPRO) 500 00:00: 00:00 (500 mg) [place] mg tablet 00 :00 by mouth MD twice Anderso daily. n Start day Cancer before Center cystogram. Day of, and day after ciprofloxac 2021-0 2022- No Bladder 500mg Take 1 [facility] in [...] Day of, and day after ciprofloxac 2021-0 2- No Bladder 500mg Take 1 [facility] in HCl 10-22 fistula tablet ity of (CIPRO) 500 00:00: 00:00 (500 mg) [place] mg tablet 00 :00 by mouth MD twice [place]o daily. n Start day Cancer before Center cystogram. Day of, and day after ciprofloxac 2021-0 2- No Bladder 500mg Take 1 [facility] in HCl 10-22 fistula tablet ity of (CIPRO) 500 00:00: 00:00 (500 mg) [place] mg tablet 00 :00 by mouth MD twice [place] daily. n Start day Cancer before Center cystogram. Day of, and day after ciprofloxac 2021-0 2- No Bladder 500mg Take 1 [facility] in HCl 10-22 fistula tablet ity of (CIPRO) 500 00:00: 00:00 (500 mg) [place] mg tablet 00 :00 by mouth MD twice [place]o daily. n Start day Cancer before Center cystogram. Day of, and day after ciprofloxac 2021-0 2022- No Bladder 500mg Take 1 [facility] in HCl 10-22 fistula tablet ity of (CIPRO) 500 00:00: 00:00 (500 mg) [place] mg tablet 00 :00 by mouth MD twice Anderso daily. n Start day Cancer before Center cystogram. Day of, and day after fentaNYL 2021- No Chronic 50ug Place 1 [...] patch(es) Center before replacing new patch(es). ondansetron 2021- No Diffuse 8mg Take 1 [facility] (Zofran) 8 6-22 10-12 large tablet (8 it y of mg tablet 00:00: 00:00 B-cell mg) by [place] 00 :00 lymphoma, mouth MD not every 8 Anders[place] otherwise (eight) n specified hours as Cancer needed for Center nausea or vomiting. ondansetron 2021- No Diffuse 8mg Take 1 [facility] (Zofran) 8 6-22 10-12 large tablet (8 it y of mg tablet 00:00: 00:00 B-cell mg) by [place] 00 :00 lymphoma, mouth MD not every 8 [place] otherwise (eight) n specified hours as Cancer needed for Center nausea or vomiting. ondansetron 2- No Diffuse 8mg Take 1 [facility] (Zofran) [...] needed for Center nausea or vomiting. ondansetron 2021- No Diffuse 8mg Take 1 [facility] (Zofran) 8 10-17 10-12 large tablet (8 it y of [...] not daily. [place] otherwise n specified [facility] [place] entecavir 2021- No Diffuse .5mg Take 1 Un hillary (BARACLUDE) 10-17 large tablet ity of 0.5 mg 00:00: 00:00 B-cell (0.5 mg) [place] tablet 00 :00 lymphoma, by mouth MD not daily. [place] otherwise n specified Cancer [place] amoxicillin 2021- No Abscess 875mg Take 1 [facility] -clavulanat 10-16-15 tablet ity o f e 00:00: 00:00 (875 mg) [place] (Augmentin) 00 :00 by mouth 875 mg-125 twice [place] mg per daily for n tablet 14 days. [facility] [place] levoFLOXaci 2021- No Abscess 750mg Take 1 [facility] n 10-16-15 tablet ity of (Levaquin) 00:00: 00:00 (750 mg) [place] 750 mg 00 :00 by mouth MD tablet daily for [place] 14 days. n [facility] amoxicillin 2021- No Abscess 875mg Take 1 [facility] -clavulanat 10-16-15 tablet ity o f e 00:00: 00:00 (875 mg) [place] (Augmentin) 00 :00 by mouth 875 mg-125 twice [place] mg per daily for n tablet 14 days. Cancer [facility] levoFLOXaci 2021- No Abscess 750mg Take 1 [facility] n 6-15 11-15 tablet ity of (Levaquin) 00:00: 00:00 (750 mg) [place] 750 mg 00 :00 by mouth MD tablet daily for Anderso 14 days. n [facility] amoxicillin 2021- No Abscess 875mg Take 1 [facility] -clavulanat -15 11-15 tablet ity o f e 00:00: 00:00 (875 mg) [place] (Augmentin) 00 :00 by mouth MD 875 mg-125 twice [place] mg per daily for n tablet 14 days. [facility] levoFLOXaci 2021- No Abscess 750mg Take 1 [facility] n 10-16-15 tablet ity of (Levaquin) 00:00: 00:00 (750 mg) [place] 750 mg 00 :00 by mouth MD tablet daily for Anders[place] 14 days. n [facility] amoxicillin 2021- No Abscess 875mg Take 1 [facility] -clavulanat 10-16-15 tablet ity o f e 00:00: 00:00 (875 mg) [place] (Augmentin) 00 :00 by mouth MD 875 mg-125 twice [place] mg per daily for n tablet 14 days. [facility] levoFLOXaci 2021- No Abscess 750mg Take 1 [facility] n 10-16-15 tablet ity of (Levaquin) 00:00: 00:00 (750 mg) [place] 750 mg 00 :00 by mouth MD tablet daily for Anders[place] 14 days. n [facility] amoxicillin 2021- No Abscess 875mg Take 1 [facility] -clavulanat 10-16-15 tablet ity o f e 00:00: 00:00 (875 mg) [place] (Augmentin) 00 :00 by mouth MD 875 mg-125 twice [place] mg per daily for n tablet 14 days. [facility] levoFLOXaci 2021- No Abscess 750mg Take 1 Univers n 6-15 11-15 tablet ity of (Levaquin) 00:00: 00:00 (750 mg) [place] 750 mg 00 :00 by mouth MD tablet daily for Anderso 14 days. n [facility] amoxicillin 2021- No Abscess 875mg Take 1 [facility] -clavulanat 10-16-15 tablet ity o f e 00:00: 00:00 (875 mg) [place] (Augmentin) 00 :00 by mouth 875 mg-125 twice [place] mg per daily for n tablet 14 days. [facility] levoFLOXaci 2021- No Abscess 750mg Take 1 [facility] n 10-16-15 tablet ity of (Levaquin) 00:00: 00:00 (750 mg) [place] 750 mg 00 :00 by mouth MD tablet daily for Anderso 14 days. n [facility] amoxicillin 2021- No Abscess 875mg Take 1 [facility] -clavulanat 10-16-15 tablet ity o f e 00:00: 00:00 (875 mg) [place] (Augmentin) 00 :00 by mouth 875 mg-125 twice [place] mg per daily for n tablet 14 days. [facility] levoFLOXaci 2021- No Abscess 750mg Take 1 [facility] n 10-16-15 tablet ity of (Levaquin) 00:00: 00:00 (750 mg) [place] 750 mg 00 :00 by mouth MD tablet daily for Anderso 14 days. n [facility] amoxicillin 2021- No Abscess 875mg Take 1 [facility] -clavulanat 10-16-15 tablet ity o f e 00:00: 00:00 (875 mg) [place] (Augmentin) 00 :00 by mouth 875 mg-125 twice [place] mg per daily for n tablet 14 days. [facility] levoFLOXaci 2021- No Abscess 750mg Take 1 [facility] n 10-16-15 tablet ity of (Levaquin) 00:00: 00:00 (750 mg) [place] 750 mg 00 :00 by mouth MD tablet daily for Anderso 14 days. [facility] amoxicillin 2021- No Abscess 875mg Take 1 [facility] -clavulanat 10-16-15 tablet ity o f e 00:00: 00:00 (875 mg) [place] (Augmentin) 00 :00 by mouth 875 mg-125 twice [place] mg per daily for n tablet 14 days. [facility] levoFLOXaci 2021- No Abscess 750mg Take 1 [facility] n 6-21 07-15 tablet ity of (Levaquin) 00:00: 00:00 (750 mg) [place] 750 mg 00 :00 by mouth MD tablet daily for Anders[place] 14 days. n [facility] HYDROmorpho 2021-0 2021- No Uncontrolle 4mg Take [...] Cancer needed for Center severe pain. HYDROmorpho 0 2021- No Uncontrolle 4mg Take 1 Univers [...] Uncontrolle 4mg Take 1 [facility] ne 6- 07-13 d pain tablet (4 ity of [...] No Uncontrolle 37.5ug Place 1 Univers (DURAGESIC) 6 06-24 d pain patch ity of patch 37.5 00:00: 00:00 (37.5 mcg) [place] mcg/hr 00 :00 on the MD skin every Anderso 72 hours. n [facility] fentaNYL 2021-0 2021- No Uncontrolle 37.5ug Place 1 [facility] (DURAGESIC) 10-10 06-24 d pain patch ity of patch 37.5 00:00: 00:00 (37.5 mcg) [place] mcg/hr 00 :00 on the MD skin every Anderso 72 hours. [facility] fentaNYL 2021- No Uncontrolle 37.5ug Place 1 [facility] (DURAGESIC) 10-10 06-24 d pain patch ity of patch 37.5 00:00: 00:00 (37.5 mcg) [place] mcg/hr 00 :00 on the MD skin every Anderso 72 hours. [facility] fentaNYL 2021- No Uncontrolle 37.5ug Place 1 [facility] (DURAGESIC) 10-10-24 d pain patch ity of patch 37.5 00:00: 00:00 (37.5 mcg) [place] mcg/hr 00 :00 on the MD skin every Anderso 72 hours. [facility] fentaNYL 2021- No Uncontrolle 37.5ug Place 1 [facility] (DURAGESIC) 10-10-24 d pain patch ity of patch 37.5 00:00: 00:00 (37.5 mcg) [place] mcg/hr 00 :00 on the MD skin every Anderso 72 hours. [facility] fentaNYL 2021- No Uncontrolle 37.5ug Place 1 [facility] (DURAGESIC) 10-10-24 d pain patch ity of patch 37.5 00:00: 00:00 (37.5 mcg) [place] mcg/hr 00 :00 on the MD skin every Anderso 72 hours. [facility] fentaNYL 2021- No Uncontrolle 37.5ug Place 1 [facility] (DURAGESIC) 10-10-24 d pain patch ity of patch 37.5 00:00: 00:00 (37.5 mcg) [place] mcg/hr 00 :00 on the MD skin every Anderso 72 hours. [facility] [place] valACYclovi 2021- No Diffuse 500mg Take 1 Univers r (VALTREX) 09-29 large tablet ity of 500 mg 00:00: 00:00 B-cell (500 mg) [place] tablet 00 :00 lymphoma, by mouth MD not daily. Anders[place] otherwise n [facility] valACYclovi No Diffuse 500mg Take 1 Univers r (VALTREX) 09-29 large tablet ity of 500 mg 00:00: 00:00 B-cell (500 mg) [place] tablet 00 :00 lymphoma, by mouth MD not daily. [place] otherwise n specified [facility] No Diffuse 500mg Take 1 Univers r (VALTREX) 09-29 large tablet ity of 500 mg 00:00: 00:00 B-cell (500 mg) [place] tablet 00 :00 lymphoma, by mouth MD not daily. [place] otherwise n specified [facility] No Diffuse 500mg Take 1 Univers r (VALTREX) 09-29 large tablet ity of 500 mg 00:00: 00:00 B-cell (500 mg) [place] tablet 00 :00 lymphoma, by mouth MD not daily. [place] otherwise n specified [facility] No Diffuse 500mg Take 1 Univers r (VALTREX) 09-29 large tablet ity of 500 mg 00:00: 00:00 B-cell (500 mg) [place] tablet 00 :00 lymphoma, by mouth MD not daily. [place] otherwise n specified [facility] No Diffuse 500mg Take 1 Univers r (VALTREX) 09-29 large tablet ity of 500 mg 00:00: 00:00 B-cell (500 mg) [place] tablet 00 :00 lymphoma, by mouth MD not daily. [place] otherwise n specified [facility] 2021- No Diffuse 500mg Take 1 Univers r (VALTREX) 09-29 large tablet ity of 500 mg 00:00: 00:00 B-cell (500 mg) [place] tablet 00 :00 lymphoma, by mouth MD not daily. [place] otherwise n specified [facility] 2021- No Diffuse 500mg Take 1 Univers r (VALTREX) 09-29 large tablet ity of 500 mg 00:00: 00:00 B-cell (500 mg) [place] tablet 00 :00 lymphoma, by mouth MD not daily. [place] otherwise n specified [facility] 2021- No Diffuse 500mg Take 1 Univers r (VALTREX) 09-29 large tablet ity of 500 mg 00:00: 00:00 B-cell (500 mg) [place] tablet 00 :00 lymphoma, by mouth MD not daily. Anderso otherwise n specified [facility] fentaNYL 2021- No Uncontrolle 25ug Place 1 [facility] (DURAGESIC) 09-29-24 d pain patch (25 ity of patch 25 00:00: 00:00 mcg) on [place] mcg/hr 00 :00 the skin MD every 72 Anderso hours. n Remove old Cancer patch(es) Center before replacing new patch(es). fentaNYL 2021- No Uncontrolle 25[address] Place 1 [facility] (DURAGESIC) 09-29-24 d pain patch (25 ity of patch 25 00:00: 00:00 mcg) on [place] mcg/hr 00 :00 the skin MD every 72 Anders[place] hours. n Remove old Cancer patch(es) Center before replacing new patch(es). fentaNYL 2021- No Uncontrolle [address] Place 1 [facility] (DURAGESIC) 09-29-24 d pain patch (25 ity of patch 25 00:00: 00:00 mcg) on [place] mcg/hr 00 :00 the skin MD every 72 Anders[place] hours. n Remove old Cancer patch(es) Center before replacing new patch(es). fentaNYL 2021- No Uncontrolle [address] Place 1 [facility] (DURAGESIC) 09-29-24 d pain patch (25 ity of patch 25 00:00: 00:00 mcg) on [place] mcg/hr 00 :00 the skin MD every 72 [place] hours. n Remove old Cancer patch(es) Center before replacing new patch(es). fentaNYL 2021- No Uncontrolle [address] Place 1 [facility] (DURAGESIC) 09-29-24 d pain patch (25 ity of patch 25 00:00: 00:00 mcg) on [place] mcg/hr 00 :00 the skin MD every 72 Anderso hours. n Remove old Cancer patch(es) Center before replacing new patch(es). fentaNYL 2021- No Uncontrolle 25ug Place 1 [facility] (DURAGESIC) 6-04 06-24 d pain patch (25 ity of [...] No Uncontrolle 25ug Place 1 [facility] (DURAGESIC) 09-29-24 d pain patch (25 ity of patch [...] doses. n specified Take on Cancer 09/29, 6/, Center and 10/01 predniSONE 2021-0 2021- No [...] Take on Cancer 6/4, 6/5, Center and 6 predniSONE 2021-0 2021- No Diffuse 100mg Take 2 [facility] (DELTASONE) 09-29 06-08 large tablets ity of 50 mg 00:00: 04:59 B-cell (100 mg) [place] tablet 00 :00 lymphoma, by mouth MD not daily for Anderso otherwise 3 doses. n specified Take on Cancer 6/4, 6/5, Center and 6 predniSONE 2021-0 2021- No Diffuse 100mg Take 2 [facility] (DELTASONE) 09-29 06-08 large tablets ity of 50 mg 00:00: 04:59 B-cell (100 mg) [place] tablet 00 :00 lymphoma, by mouth MD not daily for Anderso otherwise 3 doses. n specified Take on Cancer 6, 6/5, Center and 10/01 predniSONE 2021-0 2021- No Diffuse 100mg Take 2 [facility] (DELTASONE) 09-29 06-08 large tablets ity of 50 mg 00:00: 04:59 B-cell (100 mg) [place] tablet 00 :00 lymphoma, by mouth MD not daily for Anderso otherwise 3 doses. n specified Take on Cancer 6, 6/5, Center and 10/01 predniSONE 2021-0 2021- No Diffuse 100mg Take 2 [facility] (DELTASONE) 09-29 06-08 large tablets ity of 50 mg 00:00: 04:59 B-cell (100 mg) [place] tablet 00 :00 lymphoma, by mouth MD not daily for Anderso otherwise 3 doses. n specified Take on Cancer 6/4, 6/5, Center and 6 predniSONE 2021-0 2021- No Diffuse 100mg Take 2 [facility] (DELTASONE) 09-29 06-08 large tablets ity of 50 mg 00:00: 04:59 B-cell (100 mg) [place] tablet 00 :00 lymphoma, by mouth MD not daily for Anderso otherwise 3 doses. n specified Take on Cancer 6/4, 6/5, Center and 6 predniSONE 2021-0 2021- No Diffuse 100mg Take [...] (six) MD hours as Anderso needed. n [facility] 2021- No 250mg Take 250 Uni vers sodium 6- 06-03 mg by ity of (COLACE) 17:33: 00:00 mouth [place] 250 mg 45 :00 daily. MD valerie Jones [facility] gabapentin 2021- No 300mg Take 300 U nivers (NEURONTIN) 6 06-03 mg by ity of 600 mg [...] (six) MD hours as Anderso needed. n [facility] 2021- No 250mg Take 250 Uni vers sodium 6- 06-03 mg by ity of (COLACE) 17:33: 00:00 mouth [place] 250 mg 45 :00 daily. MD valerie Jones [facility] gabapentin 2021- No 300mg Take 300 U nivers (NEURONTIN) 6- 06-03 mg by ity of 600 mg [...] :00 (six) MD hours as Anderso needed. [facility] docusate 2021- No 250mg Take 250 Uni vers sodium 6-03 06-03 mg by ity of (COLACE) 17:33: 00:00 mouth [place] 250 mg 45 :00 daily. capsule Robert [facility] gabapentin 2021- No 300mg Take 300 U nivers (NEURONTIN) 6-03 06-03 mg by ity of 600 mg 17:33: 00:00 mouth 3 [place] tablet 45 :00 (three) MD times a Anderso day. Take n one-Half Cancer tablet by Center mouth 3 times a day for pain or anxiety traMADol 2021- No 50mg Take 50 mg Un hillary (ULTRAM) 50 - 06-03 by mouth ity of mg tablet 17:33: 00:00 every 6 [place] :00 (six) MD hours as [place] needed. [facility] docusate 2021- No 250mg Take 250 Uni vers sodium 6- 06-03 mg by ity of (COLACE) 17:33: 00:00 mouth [place] 250 mg 45 :00 daily. MD valerie Jones [facility] gabapentin 2021- No 300mg Take 300 U nivers (NEURONTIN) 6- 06-03 mg by ity of 600 mg [...] :00 (six) MD hours as Anderso needed. [facility] docusate 2021- No 250mg Take 250 Uni vers sodium 6-03 06-03 mg by ity of (COLACE) 17:33: 00:00 mouth [place] 250 mg 45 :00 daily. MD valerie Jones [facility] gabapentin 2021- No 300mg Take 300 [...] (six) MD hours as [place] needed. n [facility] docusate 2021- No 250mg Take 250 Uni vers sodium 6- 06-03 mg by ity of (COLACE) 17:33: 00:00 mouth [place] 250 mg 45 :00 daily. MD valerie Jones [facility] gabapentin 2021- No 300mg Take 300 U nivers (NEURONTIN) 6- 06-03 mg by ity of 600 mg 17:33: 00:00 mouth 3 [place] tablet 45 :00 (three) MD times a Anderso day. Take n one-Half Cancer tablet by Center mouth 3 times a day for pain or anxiety traMADol 2021- No 50mg Take 50 mg Un hillary (ULTRAM) 50 - 06-03 by mouth ity of mg tablet 17:33: 00:00 every 6 [place] :00 (six) MD hours as [place] needed. [facility] docusate 2021- No 250mg Take 250 Uni vers sodium 6-03 06-03 mg by ity of (COLACE) 17:33: 00:00 mouth [place] 250 mg 45 :00 daily. MD valerie Jones [facility] gabapentin 2021- No 300mg Take 300 [...] (six) MD hours as Anderso needed. n [facility] docusate 2021-0 2021- No 250mg Take 250 Uni vers sodium 6-03 06-03 mg by ity of (COLACE) 17:33: 00:00 mouth [place] 250 mg 45 :00 daily. capsule Robert [facility] gabapentin 2021- No 300mg Take 300 [...] (six) MD hours as Anderso needed. n [facility] docusate 2021- No 250mg Take 250 Uni vers sodium 6- 06-03 mg by ity of (COLACE) 17:33: 00:00 mouth [place] 250 mg 45 :00 daily. capsule Robert [facility] gabapentin 2021-2021- No 300mg Take 300 U nivers (NEURONTIN) 6- 06-03 mg by ity of 600 mg 17:33: 00:00 mouth 3 [place] tablet 45 :00 (three) MD times a Anderso day. Take n one-Half Cancer tablet by Center mouth 3 times a day for pain or anxiety valsartan 2021- No 80mg Take 80 mg U nivers (DIOVAN) 80 09-28-03 by mouth ity of mg tablet 11:58: 00:00 daily. [place] 29 :00 MD Jones [facility] valsartan 2021-2021- No 80mg Take 80 mg U nivers (DIOVAN) 80 -07 01-03 by mouth ity of mg tablet 11:58: 00:00 daily. [place] 29 :00 MD Robert saucedo [facility] valsartan 2021-0 2021- No 80mg Take 80 mg U nivers (DIOVAN) 80 09-28-03 by mouth ity of mg tablet 11:58: 00:00 daily. [place] 29 [facility]- No 80mg Take 80 mg U nivers (DIOVAN) 80 09-28- by mouth ity of mg tablet 11:58: 00:00 daily. [place] 29 :00 [facility] 2021- No 80mg Take 80 mg U nivers (DIOVAN) 80 09-28- by mouth ity of mg tablet 11:58: 00:00 daily. [place] 29 :00 MD Jones [facility] 2021- No 80mg Take 80 mg U nivers (DIOVAN) 80 09-28 by mouth ity of mg tablet 11:58: 00:00 daily. [place] 29 :[facility] Take 80 mg U nivers (DIOVAN) 80 09-28- by mouth ity of mg tablet 11:58: 00:00 daily. [place] 29 :00 MD Jones [facility] 2021- No 80mg Take 80 mg U nivers (DIOVAN) 80 09-28 by mouth ity of mg tablet 11:58: 00:00 daily. [place] 29 :00 [facility] 2021- No 80mg Take 80 mg U nivers (DIOVAN) 80 09-28- by mouth ity of mg tablet 11:58: 00:00 daily. [place] 29 :00 MD Jones [facility] senna-docus Yes Diffuse 2{tbl} Take 2 [facility] ate 6-03 large tablets by ity of (SENOKOT-S) 00:00: B-cell mouth 2 [place] 8.6 mg-50 00 lymphoma, (two) mg tablet not times a Anderso otherwise day as n specified needed for [facility] er constipati Center on. prochlorper Yes Diffuse [...] mg tablet 00:00: B-cell mg) by [place] 00 lymphoma, mouth not daily. [place] otherwise Hold for n [...] mg tablet 00:00: B-cell mg) by [place] 00 lymphoma, mouth not daily. [place] otherwise Hold for n [...] mg) by Zina ocampo 00 lymphoma, mouth not daily. [place] otherwise Hold for n [...] No Diffuse Inject 10 Un hillary chloride 09-28-28 large mL (1 ity of (NS) 0.9% 00:00: 00:00 B-cell syringe) [place] flush 00 :00 lymphoma, into each MD syringe 10 not lumen of Julio Cesar so mL otherwise central n specified venous Cancer catheter Center daily as directed. baclofen 2021- No Generalized 5mg Take 1 [facility] mg tab 09-28 abdominal tablet (5 it y of 00:00: 00:00 pain mg) by [place] 00 :00 mouth twice Anderso daily. [facility] baclofen 2021- No Generalized 5mg Take 1 [facility] mg tab 09-28 abdominal tablet (5 it y of 00:00: 00:00 pain mg) by [place] 00 :00 mouth twice Anderso daily. [facility] baclofen 2021- No Generalized 5mg Take 1 [facility] mg tab 09-28 abdominal tablet (5 it y of 00:00: 00:00 pain mg) by [place] 00 :00 mouth twice Anderso daily. [facility] baclofen 2021- No Generalized 5mg Take 1 [facility] mg tab 09-28 abdominal tablet (5 it y of 00:00: 00:00 pain mg) by [place] 00 :00 mouth MD twice Anderso daily. [facility] baclofen 5 2021- No Generalized 5mg Take 1 [facility] mg tab 09-28 abdominal tablet (5 it y of 00:00: 00:00 pain mg) by [place] 00 :00 mouth MD twice Anderso daily. [facility] baclofen 5 2021- No Generalized 5mg Take 1 [facility] mg tab 09-28 abdominal tablet (5 it y of 00:00: 00:00 pain mg) by [place] 00 :00 mouth MD twice Anderso daily. [facility] baclofen 5 2021- No Generalized 5mg Take 1 [facility] mg tab 09-28 abdominal tablet (5 it y of 00:00: 00:00 pain mg) by [place] 00 :00 mouth MD twice Anderso daily. [facility] baclofen 5 2021- No Generalized 5mg Take 1 [facility] mg tab 09-28 abdominal tablet (5 it y of 00:00: 00:00 pain mg) by [place] 00 :00 mouth twice Anderso daily. [facility] baclofen 5 2021- No Generalized 5mg Take 1 [facility] mg tab 09-28 abdominal tablet (5 it y of 00:00: 00:00 pain mg) by [place] 00 :00 mouth twice Anderso daily. [facility] gabapentin 2021- No Uncontrolle 600mg Take 1 [facility] (NEURONTIN) 09-28- d pain tablet ity of 600 mg 00:00: 00:00 (600 mg) [place] tablet 00 :00 by mouth 3 MD (three) Anderso times a n day. [facility] gabapentin 2021- No Uncontrolle 600mg Take 1 [facility] (NEURONTIN) 09-28- d pain tablet ity of 600 mg 00:00: 00:00 (600 mg) [place] tablet 00 :00 by mouth 3 MD (three) Anderso times a n day. [facility] gabapentin 2021- No Uncontrolle 600mg Take [...] times a n day. [facility] gabapentin 0 2021- No Uncontrolle 600mg Take 1 Univers [...] times a n day. [facility] gabapentin 0 2021- No Uncontrolle 600mg Take 1 [facility] (NEURONTIN) 09-28 d pain tablet ity of 600 mg 00:00: 00:00 (600 mg) [place] tablet 00 :00 by mouth 3 MD (three) [place] times a n day. [facility] entecavir 2021- No Diffuse .5mg [...] Anders[place] otherwise n specified [facility] Center ondansetron 2021-0 2022- No Diffuse 8mg Take 1 [facility] (Zofran) [...] [place] otherwise n specified [facility] ondansetron 2021-2021- No Diffuse 8mg Take 1 [...] [place] otherwise n specified [facility] ondansetron 2021-0 2021- No Diffuse 8mg Take 1 [facility] (Zofran) 8 6-03 06-22 large tablet (8 it y of mg [...] daily for n specified 16 days. [facility] Center minocycline 2021- No Diffuse 100mg Take 1 [facility] (MINOCIN) 09-28 large capsule ity o f 100 mg 00:00: 04:59 B-cell (100 mg) [place] capsule 00 :00 lymphoma, by mouth MD not twice [place] otherwise daily for n specified 16 days. [facility] metroNIDAZO 2021- No Diffuse 500mg Take 1 [facility] LE (FlagyL) 09-28 large tablet ity of 500 mg 00:00: 04:59 B-cell (500 mg) [place] 00 :00 lymphoma, by mouth MD not twice [place] otherwise daily for n specified 16 days. [facility] fluconazole 2021- No Diffuse 200mg Take 1 [facility] (Diflucan) 09-28 large tablet ity o f 200 mg 00:00: 04:59 B-cell (200 mg) [place] tablet 00 :00 lymphoma, by mouth MD not daily for Anderso otherwise 16 days. n specified [facility] ciprofloxac 2021- No Diffuse 500mg Take 1 [facility] in HCl 09-28 large tablet ity of (Cipro) 500 00:00: 04:59 B-cell (500 mg) [place] mg tablet 00 :00 lymphoma, by mouth M D not twice [place] otherwise daily for n specified 16 days. [facility] minocycline 2021- No Diffuse 100mg Take 1 [facility] (MINOCIN) 09-28 large capsule ity o f 100 mg 00:00: 04:59 B-cell (100 mg) [place] capsule 00 :00 lymphoma, by mouth MD not twice [place] otherwise daily for n specified 16 days. [facility] metroNIDAZO 2021- No Diffuse 500mg Take 1 [facility] LE (FlagyL) 09-28 large tablet ity of 500 mg 00:00: 04:59 B-cell (500 mg) [place] 00 :00 lymphoma, by mouth MD not twice [place] otherwise daily for n specified 16 days. [facility] fluconazole 2021- No Diffuse 200mg Take 1 [facility] (Diflucan) 09-2820 large tablet ity o f 200 mg 00:00: 04:59 B-cell (200 mg) [place] 00 :00 lymphoma, by mouth MD not daily for Anderso otherwise 16 days. n specified [facility] ciprofloxac 2021- No Diffuse 500mg Take 1 [facility] in HCl 09-28 large tablet ity of (Cipro) 500 00:00: 04:59 B-cell (500 mg) [place] mg tablet 00 :00 lymphoma, by mouth M D not twice [place] otherwise daily for n specified 16 days. [facility] minocycline 2021- No Diffuse 100mg Take 1 [facility] (MINOCIN) 09-28 large capsule ity o f 100 mg 00:00: 04:59 B-cell (100 mg) [place] capsule 00 :00 lymphoma, by mouth MD not twice [place] otherwise daily for n specified 16 days. [facility] metroNIDAZO 2021- No Diffuse 500mg Take 1 [facility] LE (FlagyL) 09-28 large tablet ity of 500 mg 00:00: 04:59 B-cell (500 mg) [place] tablet 00 :00 lymphoma, by mouth MD not twice [place] otherwise daily for n specified 16 days. [facility] fluconazole 2021- No Diffuse 200mg Take 1 [facility] (Diflucan) 09-28 large tablet ity o f 200 mg 00:00: 04:59 B-cell (200 mg) [place] tablet 00 :00 lymphoma, by mouth MD not daily for Anderso otherwise 16 days. n specified [facility] ciprofloxac 2021- No Diffuse 500mg Take 1 [facility] in HCl 09-28 large tablet ity of (Cipro) 500 00:00: 04:59 B-cell (500 mg) [place] mg tablet 00 :00 lymphoma, by mouth M D not twice [place] otherwise daily for n specified 16 days. [facility] minocycline 2021- No Diffuse 100mg Take 1 [facility] (MINOCIN) 09-28 large capsule ity o f 100 mg 00:00: 04:59 B-cell (100 mg) [place] capsule 00 :00 lymphoma, by mouth MD not twice [place] otherwise daily for n specified 16 days. [facility] metroNIDAZO 2021- No Diffuse 500mg Take 1 [facility] LE (FlagyL) 09-28 large tablet ity of 500 mg 00:00: 04:59 B-cell (500 mg) [place] tablet 00 :00 lymphoma, by mouth MD not twice [place] otherwise daily for n specified 16 days. [facility] fluconazole 2021- No Diffuse 200mg Take 1 [facility] (Diflucan) 09-28-20 large tablet ity o f 200 mg 00:00: 04:59 B-cell (200 mg) [place] tablet 00 :00 lymphoma, by mouth MD not daily for Anderso otherwise 16 days. n specified [facility] ciprofloxac 2021- No Diffuse 500mg Take 1 [facility] in HCl 09-2820 large tablet ity of (Cipro) 500 00:00: 04:59 B-cell (500 mg) [place] mg tablet 00 :00 lymphoma, by mouth M D not twice [place] otherwise daily for n specified 16 days. [facility] minocycline 2021- No Diffuse 100mg Take 1 [facility] (MINOCIN) 09-28 large capsule ity o f 100 mg 00:00: 04:59 B-cell (100 mg) [place] capsule 00 :00 lymphoma, by mouth MD not twice [place] otherwise daily for n specified 16 days. [facility] metroNIDAZO 2021- No Diffuse 500mg Take 1 [facility] LE (FlagyL) 09-28 large tablet ity of 500 mg 00:00: 04:59 B-cell (500 mg) [place] tablet 00 :00 lymphoma, by mouth MD not twice [place] otherwise daily for n specified 16 days. [facility] [place] fluconazole 2021- No Diffuse 200mg Take 1 [facility] (Diflucan) 09-28 large tablet ity o f 200 mg 00:00: 04:59 B-cell (200 mg) [place] tablet 00 :00 lymphoma, by mouth MD not daily for Anderso otherwise 16 days. n specified [facility] ciprofloxac 2021- No Diffuse 500mg Take 1 [facility] in HCl 09-2820 large tablet ity of (Cipro) 500 00:00: 04:59 B-cell (500 mg) [place] mg tablet 00 :00 lymphoma, by mouth M D not twice [place] otherwise daily for n specified 16 days. [facility] [place] minocycline 2021- No Diffuse 100mg Take 1 [facility] (MINOCIN) 09-28-20 large capsule ity o f 100 mg 00:00: 04:59 B-cell (100 mg) [place] capsule 00 :00 lymphoma, by mouth MD not twice [place] otherwise daily for n specified 16 days. [facility] metroNIDAZO 2021- No Diffuse 500mg Take 1 [facility] LE (FlagyL) 09-28 large tablet ity of 500 mg 00:00: 04:59 B-cell (500 mg) [place] tablet 00 :00 lymphoma, by mouth MD not twice [place] otherwise daily for n specified 16 days. [facility] fluconazole 2021- No Diffuse 200mg Take 1 [facility] (Diflucan) 09-28 large tablet ity o f 200 mg 00:00: 04:59 B-cell (200 mg) [place] tablet 00 :00 lymphoma, by mouth MD not daily for Anderso otherwise 16 days. n specified [facility] ciprofloxac 2021- No Diffuse 500mg Take 1 [facility] in HCl 09-28 large tablet ity of (Cipro) 500 00:00: 04:59 B-cell (500 mg) [place] mg tablet 00 :00 lymphoma, by mouth M D not twice [place]o otherwise daily for n specified 16 days. [facility] [place] minocycline 2021- No Diffuse 100mg Take 1 [facility] (MINOCIN) 09-28 large capsule ity o f 100 mg 00:00: 04:59 B-cell (100 mg) [place] capsule 00 :00 lymphoma, by mouth MD not twice [place] otherwise daily for n specified 16 days. [facility] metroNIDAZO 2021- No Diffuse 500mg Take 1 [facility] LE (FlagyL) 09-28 large tablet ity of 500 mg 00:00: 04:59 B-cell (500 mg) [place] tablet 00 :00 lymphoma, by mouth MD not twice [place] otherwise daily for n specified 16 days. [facility] fluconazole 2021- No Diffuse 200mg Take 1 [facility] (Diflucan) 09-28 large tablet ity o f 200 mg 00:00: 04:59 B-cell (200 mg) [place] tablet 00 :00 lymphoma, by mouth MD not daily for Anderso otherwise 16 days. n specified [facility] [place] ciprofloxac 2022-0 2022- No Diffuse 500mg Take 1 [facility] in HCl 09-2820 large tablet ity of (Cipro) 500 00:00: 04:59 B-cell (500 mg) [place] mg tablet 00 :00 lymphoma, by mouth M D not twice Anderso otherwise daily for n specified 16 days. [facility] minocycline 2021- No Diffuse 100mg Take 1 [facility] (MINOCIN) 09-28 large capsule ity o f 100 mg 00:00: 04:59 B-cell (100 mg) [place] capsule 00 :00 lymphoma, by mouth MD not twice [place] otherwise daily for n specified 16 days. [facility] metroNIDAZO 2021- No Diffuse 500mg Take 1 [facility] LE (FlagyL) 09-28 large tablet ity of 500 mg 00:00: 04:59 B-cell (500 mg) [place] tablet 00 :00 lymphoma, by mouth MD not twice [place] otherwise daily for n specified 16 days. [facility] fluconazole 2021- No Diffuse 200mg Take 1 [facility] (Diflucan) 09-28 large tablet ity o f 200 mg 00:00: 04:59 B-cell (200 mg) [place] tablet 00 :00 lymphoma, by mouth MD not daily for Anderso otherwise 16 days. n specified [facility] ciprofloxac 2021- No Diffuse 500mg Take 1 [facility] in HCl 09-28 large tablet ity of (Cipro) 500 00:00: 04:59 B-cell (500 mg) [place] mg tablet 00 :00 lymphoma, by mouth M D not twice Anderso otherwise daily for n specified 16 days. [facility] minocycline 2021- No Diffuse 100mg Take 1 [facility] (MINOCIN) 09-28 large capsule ity o f 100 mg 00:00: 04:59 B-cell (100 mg) [place] capsule 00 :00 lymphoma, by mouth MD not twice Anderso otherwise daily for n specified 16 days. [facility] metroNIDAZO 2021- No Diffuse 500mg Take 1 [facility] LE (FlagyL) 09-2820 large tablet ity of 500 mg 00:00: 04:59 B-cell (500 mg) [place] tablet 00 :00 lymphoma, by mouth MD not twice Anderso otherwise daily for n specified 16 days. [facility] fluconazole 2021- No Diffuse 200mg Take 1 [facility] (Diflucan) 09-28 06-20 large tablet ity o f 200 mg 00:00: 04:59 B-cell (200 mg) [place] tablet 00 :00 lymphoma, by mouth MD not daily for Anderso otherwise 16 days. n specified [facility] HYDROmorpho 2021- No Uncontrolle 4mg Take 1 [facility] ne 6- 06-15 d pain tablet (4 ity of (DILAUDID) 00:00: 00:00 mg[place] tablet 00 :00 mouth MD every 3 [place]o (three) n hours as Cancer needed for Center severe pain or moderate pain. HYDROmorpho 2021- No Uncontrolle 4mg Take 1 [facility] ne 6- 06-15 d pain tablet (4 ity of (DILAUDID) 00:00: 00:00 mg[place] tablet 00 :00 mouth MD every 3 [place] (three) n hours as Cancer needed for Center severe pain or moderate pain. HYDROmorpho 2021- No Uncontrolle 4mg Take 1 [facility] ne 6-03 06-15 d pain tablet (4 ity of (DILAUDID) 00:00: 00:00 mg[place] tablet 00 :00 mouth MD every 3 [place] (three) n hours as Cancer needed for Center severe pain or moderate pain. HYDROmorpho 2021- No Uncontrolle 4mg Take 1 [facility] ne 6-03 06-15 d pain tablet (4 ity of (DILAUDID) 00:00: 00:00 mg[place] tablet 00 :00 mouth MD every 3 [place] (three) n hours as Cancer needed for Center severe pain or moderate pain. HYDROmorpho 2021- No Uncontrolle 4mg Take [...] 2022- No 0.5 tabs M ethodi evodopa 09-03-[address] (Sinemet) 00:00: 00:00 1 week, 1 [facility] 25-100 mg 00 :00 tab PO BID l per tablet for 1 week, then 1 tab PO TID carbidopa-l 2021- No 0.5 tabs M ethodi evodopa 09-03-[address] (Sinemet) 00:00: 00:00 1 week, 1 [facility] 25-100 mg 00 :00 tab PO BID l per tablet for 1 week, then 1 tab PO TID cyclobenzap 2021- No 10mg Q.5D Take 10 [...] ethodi -acetaminop 2-[address] [facility] (i.Sec) 00:00: mouth 4 [facility] 7.5-325 mg 00 (four) l per tablet times a day. traMADoL 2020-04 Yes 50mg Q.25D Take 1 Method i (ULTRAM) 50 2-[address] mg tablet 00:00: mouth 4 [facility] 00 (four) l times a day. HYDROcodone 2020-04 Yes 1{tbl} Q.25D Take 1 M ethodi -acetaminop 2-[address] [facility] (i.Sec) 00:00: mouth 4 [facility] [place] 7.5-325 mg 00 (four) l per tablet times a day. traMADoL 2020-04 Yes 50mg Q.25D Take 1 Method i (ULTRAM) 50 2-[address] mg tablet 00:00: mouth 4 [facility] 00 (four) l times a day. HYDROcodone 2020-04 Yes 1{tbl} Q.25D Take 1 M ethodi -acetaminop 2-[address] [facility] (i.Sec) 00:00: mouth 4 [facility] [place] 7.5-325 mg 00 (four) l per tablet times a day. traMADoL 2020-04 Yes 50mg Q.25D Take 1 Method i (ULTRAM) 50 2-[address] mg tablet 00:00: mouth 4 [facility]pi [facility] 00 (four) l times a day. HYDROcodone 2020-04 Yes 1{tbl} Q.25D Take 1 M ethodi -acetaminop 2-[address] [facility] (i.Sec) 00:00: mouth 4 [facility] [place] 7.5-325 mg 00 (four) l per tablet times a day. traMADoL 2020-04 Yes 50mg Q.25D Take 1 Method i (ULTRAM) 50 2-[address] mg tablet 00:00: mouth 4 [facility]pi [facility] 00 (four) l times a day. HYDROcodone 2020-04 Yes 1{tbl} Q.25D Take 1 M ethodi -acetaminop 2-[address] [facility] ([employer]) 00:00: mouth 4 [facility] [place] 7.5-325 mg 00 (four) l per tablet times a day. traMADoL 2020-04 Yes 50mg Q.25D Take 1 Method i (ULTRAM) 50 2-[address] mg tablet 00:00: mouth 4 [facility]pi ta 00 (four) l times a day. HYDROcodone 2020-04 Yes 1{tbl} Q.25D Take 1 M ethodi -acetaminop 2-[address] hen (i.Sec) 00:00: mouth 4 [facility] [place] 7.5-325 mg 00 (four) l per tablet times a day. traMADoL 2020-04 Yes 50mg Q.25D Take 1 Method i (ULTRAM) 50 2-[address] mg tablet 00:00: mouth 4 [facility]pi [facility] 00 (four) l times a day. HYDROcodone 2020-04 Yes 1{tbl} Q.25D Take 1 M ethodi -acetaminop 2-[address] hen (i.Sec) 00:00: mouth 4 [facility] [place] 7.5-325 mg 00 (four) l per tablet times a day. traMADoL 2020-04 Yes 50mg Q.25D Take 1 Method i (ULTRAM) 50 2-[address] mg tablet 00:00: mouth 4 [facility]pi [facility] 00 (four) l times a day. HYDROcodone 2020-04 Yes 1{tbl} Q.25D Take 1 M ethodi -acetaminop 2-[address] hen (i.Sec) 00:00: mouth 4 [facility] [place] 7.5-325 mg 00 (four) l per tablet times a day. traMADoL 2020-04 Yes 50mg Q.25D Take 1 Method i (ULTRAM) 50 2-[address] mg tablet 00:00: mouth 4 Hospi ta 00 (four) l times a day. HYDROcodone 2020-04 Yes 1{tbl} Q.25D Take 1 M ethodi -acetaminop 2-[address] hen (i.Sec) 00:00: mouth 4 [facility] [place] 7.5-325 mg 00 (four) l per tablet times a day. traMADoL 2020-1 Yes 50mg Q.25D Take 1 Method i [...] 200 mg 00 daily. l tablet hydrOXYchlo 1-1 Yes 200mg QD Take 1 Met hodi [...] 200 mg 00 daily. l tablet hydrOXYchlo 1-1 Yes 200mg QD Take 1 Met hodi roQUINE 2-[address] (PLAQUENIL) 00:00: mouth Hospi ta 200 mg 00 daily. l tablet hydrOXYchlo 1-1 Yes 200mg QD Take 1 Met hodi roQUINE 2-[address] (PLAQUENIL) 00:00: mouth Hospi ta 200 mg 00 daily. l tablet hydrOXYchlo 1-1 Yes 200mg QD Take 1 Met hodi [...] 200 mg 00 daily. l tablet predniSONE 2020-2021- No 1{tbl} Q.5D Take 1 [...] 1{tbl} Q.5D Take 1 Me thodi (DELTASONE) - 05-[address] 10 mg 00:00: [...] times a day. neomycin-po 2020-04 Yes [facility], [facility]-07 Starting ity of amethasone 14:25: on Rachel (MAXITROL) 00 02/01/21 at Med ical 3.5 0925, Branch mg/g-10,000 Until unit/g-0.1 Discontinu % ed, ophthalmic Routine, ointment Intra-op neomycin-po 2020-04- PRN, [facility] lymyxin-dex 0-07 10-07 Starting ity of amethasone 14:25: 17:07 on [facility] s (MAXITROL) 00 :37 02/01/21 at Med ical 3.5 0925, Branch mg/g-10,000 Until Rachel unit/g-0.1 02/01/21 at % 1207, ophthalmic Routine, ointment Intra-op DUOVISC 2020-04 Yes PRN, [facility] (DUOVISC 0-07 Starting ity of VISCO 14:24: on Rachel [place] ELASTIC) 3 00 02/01/21 at Med ical %-4 %(0.5 0924, Branch mL) 1 % Until (0.55 mL) Discontinu intraocular ed, injection Routine, Intra-op dexamethaso 2020-04 Yes PRN, [facility] ne 0-07 Starting ity of (DECADRON 14:24: on Rachel [place] PHOSPHATE) 00 02/01/21 at Med ical injection 24, Branch Until Discontinu ed, Routine, Intra-op ceFAZolin 2020-04 Yes PRN, Univers (ANCEF) 0-07 Starting ity of injection 14:24: on Rachel [place] 00 02/01/21 at [place] [id number], Branch Until Discontinu ed, LEONARD, Intra-op balanced 2020-04 Yes PRN, Univers salt soln 0-07 Starting ity of no.2 irrig. 14:24: [place] ([place] 00 02/01/21 at [facility] ophthalmic , Branch solution Until Discontinu ed, Routine, Intra-op DUOVISC 2020-04- No PRN, Univers (DUOVISC 0-07 10-07 Starting ity of VISCO 14:24: 17:07 on Rachel [place] ELASTIC) 3 00 :37 02/01/21 at [facility] ical %-4 %(0.5 09, [place] mL) 1 % Until Rachel (0.55 mL) 02/01/21 at intraocular 1207, injection Routine, Intra-op dexamethaso 2020-04- No PRN, Unive rs ne 0-07 10-07 Starting ity of (DECADRON 14:24: 17:07 on Rachel [place] PHOSPHATE) 00 :37 02/01/21 at Med ical injection 24, Branch Until Rachel 02/01/21 at 1207, Routine, Intra-op ceFAZolin 2020-04- No PRN, Univers (ANCEF) 0-07 10-07 Starting ity of injection 14:24: 17:07 on Rachel [place] 00 :37 02/01/21 at [facility] 09, Branch Until Rachel 02/01/21 at 1207, LEONARD, Intra-op balanced 2020-04- No PRN, Univers salt soln 0-07 10-07 Starting ity o f no.2 irrig. 14:24: 17:07 on Rachel [place] as (BSS) 00 :37 02/01/21 at [facility] ophthalmic , Branch solution Until Rachel 02/01/21 at 1207, Routine, Intra-op tetracaine 2020-04 Yes PRN, Univers (PONTOCAINE 0-07 Starting ity of ) 0.5 % 14:12: on Rachel [place] ophthalmic 00 02/01/21 at [facility] ical drops 0912, Branch Until Discontinu ed, Routine, Intra-op eye block 2020-04 Yes PRN, Univers syringe 11 0-07 Starting ity o f mL 14:12: on Rachel [place] 00 02/01/21 at [facility] 0912, Branch Until Discontinu ed, Intra-op tetracaine 2020-04- No PRN, Univer s (PONTOCAINE 0-07 10-07 Starting ity of ) 0.5 % 14:12: 17:07 on Rachel [place] ophthalmic 00 :37 02/01/21 at [facility] ical drops 0912, Branch Until Rachel 02/01/21 at 1207, Routine, Intra-op eye block 2020-04- No PRN, Univers syringe 11 0-07 10-07 Starting ity of mL 14:12: 17:07 on [facility] 00 :37 02/01/21 at [facility] 0912, Branch Until Rachel 02/01/21 at 1207, [...] DSU Pre-op gabapentin 2020-04 Yes Take by [facility] ers ER 600 mg 0-07 mouth ity of tablet, 10:07: daily. [place] [address] Medical release 24 Branch hr omeprazole 2020-04 Yes 40mg Take 40 mg U nivers 40 mg 0-07 by mouth ity of capsule 10:07: daily. [address] traMADoL 50 2020-04 Yes 50mg Take 50 mg Univers mg tablet 0-07 by mouth ity of 10:07: every 6 [place] [address] (six) Medical hours as Branch needed. gabapentin 2020-04 Yes Take by [facility] ers ER 600 mg 0-07 mouth ity of tablet, 10:07: daily. [place] [address] Medical release 24 Branch hr omeprazole 2020-04 Yes 40mg Take 40 mg U nivers 40 mg 0-07 by mouth ity of capsule 10:07: daily. [address] traMADoL 50 2020-04 Yes 50mg Take 50 mg Univers mg tablet 0-07 by mouth ity of 10:07: every 6 [place] [address] (six) Medical hours as Branch needed. gabapentin 2020-04 Yes Take by [facility] ers ER 600 mg 0-07 mouth ity of tablet, 10:07: daily. [place] [address] Medical release 24 Branch hr omeprazole 2020-04 Yes 40mg Take 40 mg U nivers 40 mg 0-07 by mouth ity of capsule 10:07: daily. [address] traMADoL 50 2020-04 Yes 50mg Take 50 mg Univers mg tablet 0-07 by mouth ity of 10:07: every 6 [place] [address] (six) Medical hours as Branch needed. gabapentin 2020-04 Yes Take by [facility] ers ER 600 mg 0-07 mouth ity of tablet, 10:07: daily. [place] [address] Medical release 24 Branch hr omeprazole 2020-04 Yes 40mg Take 40 mg U nivers 40 mg 0-07 by mouth ity of capsule 10:07: daily. [address] traMADoL 50 2021-1 Yes 50mg Take 50 mg Univers mg tablet 0-07 by mouth ity of 10:07: every 6 [place] [address] (six) Medical hours as Branch needed. gabapentin 2020-0 Yes Take by Univ ers ER 600 mg 8-26 mouth ity of tablet, 18:21: daily. [place] [address] Medical release 24 Branch hr omeprazole 2020-0 Yes 40mg Take 40 mg U nivers 40 mg 8-26 by mouth ity of capsule 18:21: daily. [address] Branch traMADoL 50 2020-0 Yes 50mg Take 50 mg Univers mg tablet 8-26 by mouth ity of 18:21: every 6 [place] [address] (six) Medical hours as Branch needed. gabapentin 2020-0 Yes Take by Univ ers ER 600 mg 8-26 mouth ity of tablet, 18:21: daily. [place] [address] Medical release 24 Branch hr omeprazole 2020-0 Yes 40mg Take 40 mg U nivers 40 mg 8-26 by mouth ity of capsule 18:21: daily. [address] Branch traMADoL 50 2020-0 Yes 50mg Take 50 mg Univers mg tablet 8-26 by mouth ity of 18:21: every 6 [place] [address] (six) Medical hours as Branch needed. gabapentin 2020-0 Yes Take by Univ ers ER 600 mg 8-26 mouth ity of tablet, 18:21: daily. [place] [address] Medical release 24 Branch hr omeprazole 2020-0 Yes 40mg Take 40 mg U nivers 40 mg 8-26 by mouth ity of capsule 18:21: daily. [address] Branch traMADoL 50 2020-0 Yes 50mg Take 50 mg Univers mg tablet 8-26 by mouth ity of 18:21: every 6 [place] [address] (six) Medical hours as Branch needed. gabapentin 2020-0 Yes Take by Univ ers ER 600 mg 8-26 mouth ity of tablet, 18:21: daily. [place] [address] Medical release 24 Branch hr omeprazole 2020-0 Yes 40mg Take 40 mg U nivers 40 mg 8-26 by mouth ity of capsule 18:21: daily. [address] Branch traMADoL 50 2020-0 Yes 50mg Take 50 mg Univers mg tablet 8-26 by mouth ity of 18:21: every 6 [place] [address] (six) Medical hours as Branch needed. gabapentin 2020-0 Yes Take by Univ ers ER 600 mg 8-26 mouth ity of tablet, 18:21: daily. [place] extended Medical release 24 Branch hr omeprazole 2020-0 Yes 40mg Take 40 mg U nivers 40 mg 8-26 by mouth ity of capsule 18:21: daily. [address] Branch traMADoL 50 2020-0 Yes 50mg Take 50 mg Univers mg tablet 8-26 by mouth ity of 18:21: every 6 [place] [address] (six) Medical hours as Branch needed. gabapentin 2020-0 Yes Take by [facility] ers ER 600 mg 8-26 mouth ity of tablet, 18:21: daily. [place] [address] Medical release 24 Branch hr omeprazole 2020-0 Yes 40mg Take 40 mg U nivers 40 mg 8-26 by mouth ity of capsule 18:21: daily. [address] traMADoL 50 2020-0 Yes 50mg Take 50 mg Univers mg tablet 8- by mouth ity of 18:21: every 6 [place] [address] (six) Medical hours as Branch needed. balanced 0 Yes PRN, Univers salt soln 12-21 Starting ity of no.2 irrig. 17:09: [facility] (BSS) 12/21/20 at [facility] ophthalmic 1209, Branch solution Until Discontinu ed, Routine, Intra-op ceFAZolin 0 Yes PRN, Univers (ANCEF) 12-21 Starting ity of injection 17:09: [facility] 12/21/20 at [place] [id number], Branch Until Discontinu ed, LEONARD, Intra-op dexamethaso 0 Yes PRN, Univer s ne 12-21 Starting ity of (DECADRON 17:09: [facility] PHOSPHATE) 12/21/20 at [facility] ical injection 1209, Branch Until Discontinu ed, Routine, Intra-op DUOVISC 0 Yes PRN, Univers (DUOVISC 12-21 Starting ity of VISCO 17:09: [facility] ELASTIC) 3 12/21/20 at [facility] ica %-4 %(0.5 1209, Branch mL) 1 % Until (0.55 mL) Discontinu intraocular ed, injection Routine, Intra-op balanced 0 Yes PRN, Univers salt soln 12-21 Starting ity of no.2 irrig. 17:09: [facility] (BSS) 12/21/20 at [facility] ophthalmic [facility]9, Branch solution Until Discontinu ed, Routine, Intra-op ceFAZolin Yes PRN, Univers (ANCEF) 12-21 Starting ity of injection 17:09: Rachel [place] 00 12/21/20 at [place] [id number], Branch Until Discontinu ed, LEONARD, Intra-op dexamethaso Yes PRN, Univer s ne 12-21 Starting ity of (DECADRON 17:09: Rachel [place] PHOSPHATE) 00 12/21/20 at [facility] ical injection 1209, Branch Until Discontinu ed, Routine, Intra-op DUOVISC Yes PRN, Univers (DUOVISC 12-21 Starting ity of VISCO 17:09: Rachel [place] ELASTIC) 3 00 12/21/20 at [facility] ical %-4 %(0.5 1209, Branch mL) 1 % Until (0.55 mL) Discontinu intraocular ed, injection Routine, Intra-op balanced 2020- No PRN, Univers salt soln 12-21 Starting ity o f no.2 irrig. 17:09: 20:21 Rachel [place] (BSS) 00 :35 12/21/20 at [facility] ophthalmic [facility]9, Branch solution Until Rachel 12/21/20 at 1521, Routine, Intra-op ceFAZolin 2020- No PRN, Univers (ANCEF) 12-21 Starting ity of injection 17:09: 20:21 Rachel [place] 00 :35 12/21/20 at [place] [id number], Branch Until Rachel 12/21/20 at 1521, LEONARD, Intra-op dexamethaso 2020- No PRN, Unive rs ne 12-21 Starting ity of (DECADRON 17:09: 20:21 Rachel [place] PHOSPHATE) 00 :35 12/21/20 at Med ical injection 1209, Branch Until Rachel 12/21/20 at 1521, Routine, Intra-op DUOVISC 2020- No PRN, Univers (DUOVISC 12-21 Starting ity of VISCO 17:09: 20:21 Rachel [place] ELASTIC) 3 00 :35 12/21/20 at [facility] ical %-4 %(0.5 1209, Branch mL) 1 % Until Rachel (0.55 mL) 12/21/20 at intraocular 1521, injection Routine, Intra-op balanced 2020- No PRN, Univers salt soln 12-21 Starting ity o f no.2 irrig. 17:09: 20:21 Rachel [place] (BSS) 00 :35 12/21/20 at [facility] ophthalmic 1209, Branch solution Until Rachel 12/21/20 at 1521, Routine, Intra-op ceFAZolin 2020- No PRN, Univers (ANCEF) 12-21 Starting ity of injection 17:09: 20:21 Rachel [place] 00 :35 12/21/20 at [facility] 1209, Branch Until Rachel 12/21/20 at 1521, LEONARD, Intra-op dexamethaso 2020- No PRN, Unive rs ne 12-21 Starting ity of (DECADRON 17:09: 20:21 Rachel [place] PHOSPHATE) 00 :35 12/21/20 at [facility] ical injection 1209, Branch Until Rachel 12/21/20 at 1521, Routine, Intra-op DUOVISC 2020- No PRN, Univers (DUOVISC 12-21 Starting ity of VISCO 17:09: 20:21 Rachel [place] ELASTIC) 3 00 :35 12/21/20 at [facility] ical %-4 %(0.5 1209, Branch mL) 1 % Until Rachel (0.55 mL) 12/21/20 at intraocular 1521, injection Routine, Intra-op EPINEPHrine Yes PRN, Univer s (PF) 12-21 Starting ity of 1:1,000 (1 17:08: Rachel [place] mg/mL) 00 12/21/20 at [facility] (ADRENALIN 1208, Branch (PF)) Until injection Discontinu ed, Routine, Intra-op gentamicin Yes PRN, Univers injection 12-21 Starting ity of 17:08: Rachel [place] 00 12/21/20 at [facility] 1208, Branch Until Discontinu ed, LEONARD, Intra-op NaCl 0.9% Yes PRN, Univers (NS) 12-21 Starting ity of injection 17:08: Rachel [place] 00 12/21/20 at [place] [id number], Branch Until Discontinu ed, Routine, Intra-op EPINEPHrine Yes PRN, Univer s (PF) 12-21 Starting ity of 1:1,000 (1 17:08: Rachel [place] mg/mL) 00 12/21/20 at [facility] (ADRENALIN 1208, Branch (PF)) Until injection Discontinu ed, Routine, Intra-op gentamicin Yes PRN, Univers injection 12-21 Starting ity of 17:08: Rachel [place] 00 12/21/20 at [place] [address], [place] Until Discontinu ed, LEONARD, Intra-op NaCl 0.9% Yes PRN, Univers (NS) 12-21 Starting ity of injection 17:08: Rachel [place] 00 12/21/20 at [place] [address], [place] Until Discontinu ed, Routine, Intra-op EPINEPHrine 2020- No PRN, Unive rs (PF) 12-21 Starting ity of 1:1,000 (1 17:08: 20:21 Rachel [place] mg/mL) 00 :35 12/21/20 at [facility] (ADRENALIN 1208, Branch (PF)) Until Rachel injection 12/21/20 at 1521, Routine, Intra-op gentamicin 2020- No PRN, Univer s injection 12-21 Starting ity o f 17:08: 20:21 Rachel [place] 00 :35 12/21/20 at [place] [id number], Branch Until Rachel 12/21/20 at 1521, LEONARD, Intra-op NaCl 0.9% 2020- No PRN, Univers (NS) 12-21 Starting ity of injection 17:08: 20:21 Rachel [place] 00 :35 12/21/20 at [place] [id number], Branch Until Rachel 12/21/20 at 1521, Routine, Intra-op EPINEPHrine 2020- No PRN, Unive rs (PF) 12-21 Starting ity of 1:1,000 (1 17:08: 20:21 Rachel [place] mg/mL) 00 :35 12/21/20 at [facility] (ADRENALIN 1208, Branch (PF)) Until Rachel injection 12/21/20 at 1521, Routine, Intra-op gentamicin 2020- No PRN, Univer s injection 12-21 Starting ity o f 17:08: 20:21 Rachel [place] 00 :35 12/21/20 at [facility] 1208, Branch Until Rachel 12/21/20 at 1521, LEONARD, Intra-op NaCl 0.9% 2020- No PRN, Univers (NS) 12-21 Starting ity of injection 17:08: 20:21 Rachel [place] 00 :35 12/21/20 at [facility] 1208, Branch Until Rachel 12/21/20 at 1521, Routine, Intra-op neomycin-po Yes PRN, [facility] [place] s lymyxin-dex 12-21 Starting ity of amethasone 17:07: Rachel [place] (MAXITROL) 00 12/21/20 at [facility] ical 3.5 1207, Branch mg/g-10,000 Until unit/g-0.1 Discontinu % ed, ophthalmic Routine, ointment Intra-op neomycin-po Yes PRN, [facility] [place] s lymyxin-dex 12-21 Starting ity of amethasone 17:07: Rachel [place] (MAXITROL) 00 12/21/20 at [facility] ical 3.5 1207, Branch mg/g-10,000 Until unit/g-0.1 Discontinu % ed, ophthalmic Routine, ointment Intra-op neomycin-po 2020- No PRN, [facility] rs lymyxin-dex 12-21 Starting ity of amethasone 17:07: 20:21 Rachel [place] (MAXITROL) 00 :35 12/21/20 at [facility] ical 3.5 1207, Branch mg/g-10,000 Until Rachel unit/g-0.1 12/21/20 at % 1521, ophthalmic Routine, ointment Intra-op neomycin-po 2020- No PRN, [facility] rs lymyxin-dex 12-21 Starting ity of amethasone [...] 17:02: Rachel [place] ophthalmic 00 12/21/20 at [facility] ical drops 1202, Branch Until Discontinu ed, Routine, Intra-op tetracaine Yes PRN, Univers (PONTOCAINE 12-21 Starting ity of ) 0.5 % 17:02: Rachel [place] ophthalmic 00 12/21/20 at Med ical drops 1202, Branch Until Discontinu ed, Routine, Intra-op tetracaine 2020- No PRN, Univer s (PONTOCAINE 12-21 Starting ity of ) 0.5 % 17:02: 20:21 Rachel [place] ophthalmic 00 :35 12/21/20 at [facility] ical drops 1202, Branch Until Rachel 12/21/20 at 1521, Routine, Intra-op tetracaine 2020- No PRN, Univer s (PONTOCAINE 12-21 Starting ity of ) 0.5 % 17:02: 20:21 Rachel [place] ophthalmic 00 :35 12/21/20 at [facility] ical drops 1202, Branch Until Rachel 12/21/20 at 1521, Routine, Intra-op eye block Yes PRN, Univers syringe 12-21 Starting ity o f mL 17:01: Rachel [place] 00 12/21/20 at [place] [id number], Branch Until Discontinu ed, Intra-op eye block Yes PRN, Univers syringe 12-21 Starting ity o f mL 17:01: Rachel [place] 00 12/21/20 at [place] [id number], Branch Until Discontinu ed, Intra-op eye block 2020- No PRN, Univers syringe 11 12-21 Starting ity of mL 17:01: 20:21 [facility] [place] 00 :35 12/21/20 at [facility] 1201, Branch Until Rachel 12/21/20 at 1521, Intra-op eye block 2020- No PRN, Univers syringe 12-21 Starting ity of mL 17:01: 20:21 [facility] 00 :35 12/21/20 at [facility] 1201, Branch Until Rachel 12/21/20 at 1521, Intra-op mydriatic 2020- No .5mL 0.5 mL, Univ ers #5 12-21 Right Eye, ity of ophthalmic 15:45: 15:51 ONCE, 1 [place] solution 00 :00 dose, Rachel Medica l 0.5 mL 12/21/20 at [place] syringe 1045, Routine, DSU Pre-op lactated 2020- No 1000mL at 42 Unive rs ringers IV 12-21 mL/hr, ity of infusion 15:45: 15:51 1,000 mL, [place] as 1,000 mL 00 :00 IV Medical Infusion, [place] ONCE, 1 dose, Rachel 12/21/20 at 1045, [...] 1000mL at 42 Unive rs ringers IV 12-21-26 mL/hr, ity of infusion 15:45: 15:51 1,000 [...] 12/21/20 at 1045, Routine, DSU Pre-op gabapentin Yes Take by [facility] ers ER 600 mg 12-21 mouth ity of tablet, 13:21: daily. [place] extended 31 Medical release 24 Branch hr omeprazole Yes 40mg Take 40 mg U nivers 40 mg 8-26 by mouth ity of capsule 13:21: daily. [place] [address] Medical Branch traMADoL 50 Yes 50mg Take 50 mg Univers mg tablet 8-26 by mouth ity of 13:21: every 6 [place] [address] (six) Medical hours as Branch needed. gabapentin 0 Yes Take by [facility] ers ER 600 mg 8-26 mouth ity of tablet, 13:21: daily. [place] [address] Medical release 24 Branch hr omeprazole Yes 40mg Take 40 mg U nivers 40 mg 8-26 by mouth ity of capsule 13:21: daily. [place] [address] Medical Branch traMADoL 50 Yes 50mg Take 50 mg Univers mg tablet 8-26 by mouth ity of 13:21: every 6 [place] [address] (six) Medical hours as Branch needed. gabapentin 2020-0 No 300 mg = 1 M [place] 300 MG Oral 6-10 cap, PO, l Capsule 17:10: TID, 0 [place] 00 Refill(s) gabapentin 2020-0 No 300 mg = 1 M [place] 300 MG Oral 6-10 cap, PO, l Capsule 17:10: TID, 0 [place] 00 Refill(s) gabapentin 2020-0 No 300 mg = 1 M [place] 300 MG Oral 6-10 cap, PO, l Capsule 17:10: TID, 0 [place] 00 Refill(s) gabapentin 2020-0 No 300 mg = 1 M [place] 300 MG Oral 6-10 cap, PO, l Capsule 17:10: TID, 0 [place] 00 Refill(s) gabapentin 2020-0 No 300 mg = 1 M [place] 300 MG Oral 6-10 cap, PO, l Capsule 17:10: TID, 0 [place] 00 Refill(s) gabapentin 2020-0 No 300 mg = 1 M [place] 300 MG Oral 6-10 cap, PO, l Capsule 17:10: TID, 0 [place] 00 Refill(s) gabapentin 2020-0 No 300 mg [...] cap, PO, l Capsule 17:10: TID, 0 [place] 00 Refill(s) gabapentin 2020-0 No 300 mg = 1 M [place] 300 MG Oral 6-10 cap, PO, l Capsule 17:10: TID, 0 [place] 00 Refill(s) gabapentin 2020-0 No 300 mg = 1 M [place] 300 MG Oral 6-10 cap, PO, l Capsule 17:10: TID, 0 [place] 00 Refill(s) gabapentin 2020-0 No 300 mg [...] cap, PO, l Capsule 17:10: TID, 0 [place] 00 Refill(s) gabapentin 2020-0 No 300 mg = 1 M [place] 300 MG Oral 6-10 cap, PO, l Capsule 17:10: TID, 0 [place] 00 Refill(s) gabapentin 2020-0 No 300 mg = 1 M [place] 300 MG Oral 6-10 cap, PO, l Capsule 17:10: TID, 0 [place] 00 Refill(s) gabapentin 2020-0 No 300 mg = 1 M [place] 300 MG Oral 6-10 cap, PO, l Capsule 17:10: TID, 0 [place] 00 Refill(s) gabapentin 2019-0 No 300 mg = 1 M [place] 300 MG Oral 6-10 cap, PO, l Capsule 17:10: TID, 0 [place] 00 Refill(s) gabapentin 2019-0 No 300 mg = 1 M [place] 300 MG Oral 6-10 cap, PO, l Capsule 17:10: TID, 0 [place] 00 Refill(s) gabapentin 0 No 300 mg = 1 M [place] 300 MG Oral 6-10 cap, PO, l Capsule 17:10: TID, 0 [place] 00 Refill(s) gabapentin No 300 mg = 1 M [place] 300 MG Oral 6-10 cap, PO, l Capsule 17:10: TID, 0 [place] 00 Refill(s) gabapentin 0 No 300 mg = 1 M [place] 300 MG Oral 6-10 cap, PO, l Capsule 17:10: TID, 0 [place] 00 Refill(s) HYDROcodone 2018-04 Yes 10 mg [...] Comments Source Systolic blood 2021-02-01 187 mm[Hg] [facility] pressure 14:50:00 [facility] Diastolic blood 2021-02-01 90 mm[Hg] [facility] pressure 14:50:00 [facility] Heart rate 2021-02-01 52 /min [facility] 14:50:00 [facility] Oxygen saturation 2021-02-01 97 /min [facility] in Arterial blood 14:50:00 [facility] by Pulse oximetry Branch Respiratory rate 2021-02-01 16 /min University of 14:45:00 [facility] Branch Body temperature 2021-02-01 36.33 [place] University of 14:35:00 [place] [facility] Body height 2021-01-24 177.8 cm University of 15:21:00 [facility] Branch Body weight 2021-01-24 103.5 kg University of 15:21:00 [facility] BMI 2021-01-24 32.74 kg/m2 University of 15:21:00 [facility] Branch Systolic blood 2021-02-01 159 mm[Hg] University of pressure 13:04:00 [facility] Branch Diastolic blood 2021-02-01 90 mm[Hg] University o f pressure 13:04:00 [facility] Heart rate 2021-02-01 60 /min University of 13:04:00 [facility] Body temperature 2021-02-01 36.67 [place] University of 13:04:00 [facility] Respiratory rate 2021-02-01 18 /min University of 13:04:00 [facility] Oxygen saturation 2021-02-01 98 /min University of in Arterial blood 13:04:00 [facility] by Pulse oximetry Branch Body height 2021-01-24 177.8 cm University of 15:21:00 [facility] Body weight 2021-01-24 103.5 kg University of 15:21:00 [facility] BMI 2021-01-24 32.74 kg/m2 University of 15:21:00 [facility] Systolic blood 2020-12-21 119 mm[Hg] University of pressure 17:50:00 [facility] Diastolic blood 2020-12-21 74 mm[Hg] University o f pressure 17:50:00 [facility] Heart rate 2020-12-21 62 /min University of 17:50:00 [facility] Branch Respiratory rate 2020-12-21 21 /min University of 17:50:00 [facility] Branch Oxygen saturation 2020-12-21 96 /min University of in Arterial blood 17:50:00 [facility] by Pulse oximetry Branch Body temperature 2020-12-21 36.28 [place] University of 17:28:00 [facility] Body height 2020-12-13 177.8 cm University of 13:30:00 [facility] Body weight 2020-12-13 103.5 kg University of 13:30:00 [facility] BMI 2020-12-13 32.74 kg/m2 University of 13:30:00 [facility] Systolic blood 2020-12-21 119 mm[Hg] University of pressure 17:50:00 [facility] Diastolic blood 2020-12-21 74 mm[Hg] University o f pressure 17:50:00 [facility] Heart rate 2020-12-21 62 /min University of 17:50:00 [facility] Respiratory rate 2020-12-21 21 /min University of 17:50:00 [facility] Oxygen saturation 2020-12-21 96 /min University of in Arterial blood 17:50:00 [facility] by Pulse oximetry [place] Body temperature 2020-12-21 36.28 [place] University of 17:28:00 [facility] Body height 2020-12-13 177.8 cm University of 13:30:00 [facility] Body weight 2020-12-13 103.5 kg University of 13:30:00 [facility] BMI 2020-12-13 32.74 kg/m2 University of 13:30:00 [facility] Systolic blood 2022-06-25 145 mm[Hg] University of pressure 19:00:00 [facility] Diastolic blood 2022-06-25 79 mm[Hg] University o f pressure 19:00:00 [facility] Heart rate 2022-06-25 91 /min University of 19:00:00 [facility] Body temperature 2022-06-25 36.72 [place] University of 19:00:00 [facility] Respiratory rate 2022-06-25 18 /min University of 19:00:00 [facility] Oxygen saturation 2022-06-25 98 /min University of in Arterial blood 19:00:00 [facility] by Pulse oximetry [facility] Systolic blood 2022-06-24 129 mm[Hg] [facility] of pressure 17:15:00 [facility] Diastolic blood 2022-06-24 81 mm[Hg] University o f pressure 17:15:00 [facility] Heart rate 2022-06-24 82 /min University of 17:15:00 [facility] Body temperature 2022-06-24 36.78 Vanessa University of 17:15:00 [facility] Respiratory rate 2022-06-24 16 /min University of 17:15:00 [facility] Oxygen saturation 2022-06-24 96 /min University of in Arterial blood 17:15:00 Radha GRACIA by Pulse oximetry [facility] Body weight 2022-06-24 90.7 kg University of 17:15:00 [facility] BMI 2022-06-24 29.62 kg/m2 University of 17:15:00 [facility] Systolic blood 2022-06-21 166 mm[Hg] Enid Luong Rn University of pressure 14:48:00 notifed [facility] Diastolic blood 2022-06-21 96 mm[Hg] Enid Luong Rn University of pressure 14:48:00 notifed [facility] Heart rate 2022-06-21 73 /min University of 14:48:00 [facility] Body temperature 2022-06-21 36.72 Vanessa University of 14:48:00 [facility] Respiratory rate 2022-06-21 14 /min University of 14:48:00 [facility] Body weight 2022-06-21 87.9 kg University of 14:48:00 [facility] BMI 2022-06-21 28.70 kg/m2 University of 14:48:00 [facility] Oxygen saturation 2022-06-21 99 /min University of in Arterial blood 14:48:00 Radha GRACIA by Pulse oximetry [facility] Body height 2022-06-19 175 cm University of 05:35:00 [facility] Systolic blood 2022-05-13 135 mm[Hg] [facility] pressure 18:00:00 [facility] Diastolic blood 2022-05-13 80 mm[Hg] University o f pressure 18:00:00 [facility] Heart rate 2022-05-13 82 /min University of 18:00:00 [facility] Body temperature 2022-05-13 37 Vanessa University of 18:00:00 [facility] Oxygen saturation 2022-05-13 95 /min University of in Arterial blood 18:00:00 Radha GRACIA by Pulse oximetry [facility] Respiratory rate 2022-05-13 18 /min University of 14:38:41 [facility] Body weight 2022-05-13 91.3 kg University of 08:33:00 [facility] BMI 2022-05-13 28.88 kg/m2 University 08:33:00 [facility] Systolic blood 2022-05-10 162 mm[Hg] [facility] of pressure 18:28:00 [facility] Diastolic blood 2022-05-10 97 mm[Hg] [place] o f pressure 18:28:00 [facility] Heart rate 2022-05-10 74 /min University 18:28:00 [facility] Respiratory rate 2022-05-10 12 /min University 18:28:00 [facility] Oxygen saturation 2022-05-10 96 /min [facility] in Arterial blood 18:28:00 [facility] by Pulse oximetry [facility] Body temperature 2022-05-10 36.5 Vanessa [facility] 18:25:00 [facility] Body weight 2022-05-10 91.9 kg [facility] 10:00:00 [facility] BMI 2022-05-10 29.07 kg/m2 University 10:00:00 [facility] Body height 2022-05-06 177.8 cm University 08:03:00 [facility] Systolic blood 2022-05-02 126 mm[Hg] [facility] pressure 15:31:00 [facility] Diastolic blood 2022-05-02 77 mm[Hg] [facility] pressure 15:31:00 Hospital Heart rate 2022-05-02 79 /min [facility] 15:31:00 [facility] Body temperature 2022-05-02 36 Vanessa [facility] 15:31:00 [facility] Body height 2022-05-02 177.8 cm [facility] 15:31:00 Hospital Body weight 2022-05-02 88.905 kg [facility] 15:31:00 Hospital BMI 2022-05-02 28.12 kg/m2 [facility] 15:31:00 Hospital Systolic (mm Hg) 2019-10-15 [facility] rmann 13:46:00 Diastolic (mm Hg) 2019-10-15 [facility] H ermann 13:46:00 Heart Rate 2019-10-15 [facility] 13:46:00 Respitory [facility] 2019[facility]10-15 [facility] maalika 13:46:00 Height 2019-10-15 172.72 cm [facility] Devonte n 13:46:00 Weight 2019-10-15 [facility] Devonte n 13:46:00 BMI Calculated 2019-10-15 [facility] [...] rmann 20:57:00 Diastolic (mm Hg) 2019-04-22 [facility] ermann 20:57:00 Heart Rate 2019-04-22 Luis Jaquezan n 20:57:00 Respitory Rate 2019-04-22 [facility] malaika 20:57:00 Height 2019-04-22 177.8 cm Luis Jaquezan n 20:57:00 Weight 2019-04-22 [facility] 20:57:00 BMI Calculated 2019-04-22 [facility] 20:57:00 Procedures Procedure Date / Time Performing Clinician Source Performed COMPLETE BLOOD COUNT W/ 2022-06-25 Kailey Parikh [facility] DIFFERENTIAL 09:40:00 [facility] Center SODIUM LEVEL 2022-06-25 Jl [facility] xas 09:40:00 [facility] Center POTASSIUM LEVEL 2022-06-25 Jl [facility] 09:40:00 [facility] CHLORIDE LEVEL 2022-06-25 Jl [facility] 09:40:00 [facility] CARBON DIOXIDE LEVEL 2022-06-25 Jl [facility] 09:40:00 [facility] BLOOD UREA NITROGEN 2022-06-25 Kailey Parikh [facility] 09:40:00 [facility] SERUM CREATININE 2022-06-25 Jl [facility] exas 09:40:00 [facility] GLUCOSE, RANDOM 2022-06-25 Jl [facility] 09:40:00 [facility] Center LACTATE DEHYDROGENASE 2022-06-25 Jl [facility] 09:40:00 [facility] URIC ACID 2022-06-25 Jl [facility] xa 09:40:00 [facility] Center PHOSPHORUS LEVEL 2022-06-25 Jl [facility] exas 09:40:00 [facility] Center FRACTIONATED BILIRUBIN 2022-06-25 Jl [facility] 09:40:00 [facility] ALBUMIN LEVEL 2022-06-25 Jl [facility] xa 09:40:00 [facility] CALCIUM LEVEL TOTAL 2022-06-[address] [facility] [place] 09:40:00 [facility] MAGNESIUM LEVEL 2022-06-25 Jl [facility] xa 09:40:00 [facility] ALANINE AMINOTRANSFERASE 2022-06-25 Jl [facility] 09:40:00 [facility] ASPARTATE AMINOTRANSFERASE 2022-06-25 Jl [facility] 09:40:00 [facility] ALKALINE PHOSPHATASE 2022-06-25 Jl [facility] 09:40:00 [facility] Results CBC 2022-06-25 Jl [facility] xa 09:40:00 [facility] MANUAL DIFFERENTIAL 2022-06-[address] [facility] [place] 09:40:00 [facility] SERUM CREATININE 2022-06-25 Jl [facility] exas 09:40:00 [facility] .GLOMERULAR FILTRATION RATE 2022-06-25 Jl [facility] 09[facility]40:00 [facility] ANION GAP 2022-06-25 Jl [facility] 09:40:00 [facility] VERIFY CATHETER TIP 2022-06-25 Fanny Recio [place] [facility] [place] PLACEMENT 04:55:18 [facility] XR CHEST 2 VW POST IMPLANT 2022-06-25 [facility] 03:[facility]00 [facility] XR CHEST 2 VW POST IMPLANT 2022-06-25 Crow Greer [facility] 03:15:00 [facility] INSERT VASCULAR ACCESS 2022-06-25 Crow Greer [facility] DEV[facility] 02:31:00 [facility] VASCULAR ACCESS ULTRASOUND 2022-06-25 [facility] [place] [facility] [place] 00:49:02 [facility] COMPLETE BLOOD COUNT W/ 2022-06-24 Jl [facility] DIFFERENTIAL 12:23:00 [facility] SODIUM LEVEL 2022-06-24 Jl [facility] 12:23:00 [facility] POTASSIUM LEVEL 2022-06-24 Jl [facility] 12:23:00 [facility] CHLORIDE LEVEL 2022-06-24 Jl [facility] 12:23:00 [facility] CARBON DIOXIDE LEVEL 2022-06-24 Jl [facility] 12:23:00 [facility] BLOOD UREA NITROGEN 2022-06-24 Jl [facility] 12:23:00 [facility] SERUM CREATININE 2022-06-24 Jl [facility] exas 12:23:00 [facility] GLUCOSE, RANDOM 2022-06-24 Jl [facility] 12:23:00 [facility] LACTATE DEHYDROGENASE 2022-06-24 Jl [facility] 12:23:00 [facility] URIC ACID 2022-06-24 Jl [facility] 12:23:00 [facility] PHOSPHORUS LEVEL 2022-06-24 Jl [facility] exas 12:23:00 [facility] FRACTIONATED BILIRUBIN 2022-06-24 Jl [facility] 12:23:00 [facility] ALBUMIN LEVEL 2022-06-24 Jl [facility] 12:23:00 [facility] CALCIUM LEVEL TOTAL 2022-06-24 Jl [facility] 12:23:00 [facility] MAGNESIUM LEVEL 2022-06-24 Jl [facility] 12:23:00 [facility] ALANINE AMINOTRANSFERASE 2022-06-24 Jl [facility] 12:23:00 [facility] ASPARTATE AMINOTRANSFERASE 2022-06-24 Jl [facility] 12:23:00 [facility] ALKALINE PHOSPHATASE 2022-06-24 Jl [facility] 12:23:00 [facility] Results CBC 2022-06-24 Jl [facility] 12:23:00 [facility] MANUAL DIFFERENTIAL 2022-06-24 Jl [facility] 12:23:00 [facility] SERUM CREATININE 2022-06-24 Jl [facility] ex 12:23:00 [facility] .GLOMERULAR FILTRATION RATE 2022-06-24 Jl [facility] 12:23:00 [facility] ANION GAP 2022-06-24 Jl [facility] 12:23:00 [facility] TYPE AND SCREEN 2022-06-23 Jl [facility] 13:45:00 [facility] COMPLETE BLOOD COUNT W/ 2022-06-23 Jl [facility] DIFFERENTIAL 13:45:00 [facility] SODIUM LEVEL 2022-06-23 Jl [facility] 13:45:00 [facility] POTASSIUM LEVEL 2022-06-23 Jl [facility] 13:45:00 [facility] CHLORIDE LEVEL 2022-06-23 Jl [facility] 13:45:00 [facility] CARBON DIOXIDE LEVEL 2022-06-23 Jl [facility] 13:45:00 [facility] BLOOD UREA NITROGEN 2022-06-23 Jl [facility] 13:45:00 [facility] Center SERUM CREATININE 2022-06-23 Jl [facility] exas 13:45:00 [facility] GLUCOSE, RANDOM 2022-06-23 Jl [facility] 13:45:00 [facility] LACTATE DEHYDROGENASE 2022-06-23 Jl [facility] 13:45:00 [facility] URIC ACID 2022-06-23 Jl [facility] 13:45:00 [facility] PHOSPHORUS LEVEL 2022-06-23 Jl [facility] ex 13:45:00 [facility] FRACTIONATED BILIRUBIN 2022-06-23 Jl [facility] 13:45:00 [facility] ALBUMIN LEVEL 2022-06-23 Jl [facility] 13:45:00 [facility] CALCIUM LEVEL TOTAL 2022-06-23 Jl [facility] 13:45:00 [facility] Center MAGNESIUM LEVEL 2022-06-23 Jl [facility] 13:45:00 [facility] ALANINE AMINOTRANSFERASE 2022-06-23 Jl [facility] 13:45:00 [facility] ASPARTATE AMINOTRANSFERASE 2022-06-23 Jl [facility] 13:45:00 [facility] ALKALINE PHOSPHATASE 2022-06-23 Jl [facility] 13:45:00 [facility] ABORH 2022-06-23 Jl [facility] 13:45:00 [facility] ANTIBODY SCREEN 2022-06-23 Jl [facility] 13:45:00 [facility] Results CBC 2022-06-23 Jl [facility] 13:45:00 [facility] Center MANUAL DIFFERENTIAL 2022-06-23 Jl [facility] 13:45:00 [facility] SERUM CREATININE 2022-06-23 Jl [facility] exas 13:45:00 [facility] .GLOMERULAR FILTRATION RATE 2022-06-23 Jl [facility] 13:45:00 [facility] ANION GAP 2022-06-23 Jl [facility] 13:45:00 [facility] CLOT EXPIRATION DATE 2022-06-23 Jl [facility] 13:45:00 [facility] TMP INTERPRETATION ANTIBODY 2022-06-23 Jl [facility] SCREEN NEGATIVE 13:45:00 [facility] COMPLETE BLOOD COUNT W/ 2022-06-22 Jl [facility] DIFFERENTIAL 11:50:00 [facility] SODIUM LEVEL 2022-06-22 Jl [facility] 11:50:00 [facility] POTASSIUM LEVEL 2022-06-22 Jl [facility] 11:50:00 [facility] CHLORIDE LEVEL 2022-06-22 Jl [facility] 11:50:00 [facility] CARBON DIOXIDE LEVEL 2022-06-22 Jl [facility] 11:50:00 [facility] BLOOD UREA NITROGEN 2022-06-22 Jl [facility] 11:50:00 [facility] SERUM CREATININE 2022-06-22 Jl [facility] ex 11:50:00 [facility] GLUCOSE, RANDOM 2022-06-22 Jl [facility] 11:50:00 [facility] LACTATE DEHYDROGENASE 2022-06-22 Jl [facility] 11:50:00 [facility] URIC ACID 2022-06-22 Jl [facility] 11:50:00 [facility] PHOSPHORUS LEVEL 2022-06-22 Jl [facility] ex 11:50:00 [facility] FRACTIONATED BILIRUBIN 2022-06-22 Jl [facility] 11:50:00 [facility] ALBUMIN LEVEL 2022-06-22 Jl [facility] 11:50:00 [facility] CALCIUM LEVEL TOTAL 2022-06-[address] [facility] [place] 11:50:00 [facility] MAGNESIUM LEVEL 2022-06-22 Jl [facility] 11:50:00 [facility] ALANINE AMINOTRANSFERASE 2022-06-22 Jl [facility] 11:50:00 [facility] ASPARTATE AMINOTRANSFERASE 2022-06-22 Jl [facility] 11:50:00 [facility] ALKALINE PHOSPHATASE 2022-06-22 Jl [facility] 11:50:00 [facility] Results CBC 2022-06-22 Jl [facility] 11:50:00 [facility] MANUAL DIFFERENTIAL 2022-06-22 Jl [facility] 11:50:00 [facility] SERUM CREATININE 2022-06-22 Jl [facility] exas 11:50:00 [facility] .GLOMERULAR FILTRATION RATE 2022-06-22 Jl [facility] 11:50:00 [facility] ANION GAP 2022-06-22 Jl [facility] 11:50:00 [facility]URE [facility]22[facility]06-[facility]00 [facility] ECHOCARDIOGRAM 2D COMPLETE 2022-06-21 Jl [facility] 18:12:54 [facility] COMPLETE BLOOD COUNT W/ 2022-06-21 Jl [facility] DIFFERENTIAL 11:50:00 [facility] SODIUM LEVEL 2022-06-21 Jl [facility] 11:50:00 [facility] POTASSIUM LEVEL 2022-06-21 Jl [facility] 11:50:00 [facility] CHLORIDE LEVEL 2022-06-21 Jl [facility] 11:50:00 [facility] CARBON DIOXIDE LEVEL 2022-06-21 Jl [facility] 11:50:00 [facility] BLOOD UREA NITROGEN 2022-06-21 Jl [facility] [place] 11:50:00 [facility] SERUM CREATININE 2022-06-21 Jl [facility] exas 11:50:00 [facility] GLUCOSE, RANDOM 2022-06-21 Jl [facility] 11:50:00 [facility] LACTATE DEHYDROGENASE 2022-06-21 Jl [facility] 11:50:00 [facility] URIC ACID 2022-06-21 Jl [facility] 11:50:00 [facility] PHOSPHORUS LEVEL 2022-06-21 Jl [facility] ex 11:50:00 [facility] FRACTIONATED BILIRUBIN 2022-06-21 Jl [facility] 11:50:00 [facility] ALBUMIN LEVEL 2022-06-21 Jl [facility] 11:50:00 [facility] CALCIUM LEVEL TOTAL 2022-06-21 Jl [facility] 11:50:00 [facility] MAGNESIUM LEVEL 2022-06-21 Jl [facility] 11:50:00 [facility] ALANINE AMINOTRANSFERASE 2022-06-21 Jl [facility] 11:50:00 [facility] ASPARTATE AMINOTRANSFERASE 2022-06-21 Jl [facility] 11:50:00 [facility] ALKALINE PHOSPHATASE 2022-06-21 Jl [facility] 11:50:00 [facility] Results CBC 2022-06-21 Jl [facility] 11:50:00 [facility] MANUAL DIFFERENTIAL 2022-06-21 Jl [facility] 11:50:00 [facility] SERUM CREATININE 2022-06-21 Jl [facility] ex 11:50:00 [facility] .GLOMERULAR FILTRATION RATE 2022-06-21 Jl [facility] 11:50:00 [facility] ANION GAP 2022-06-21 Jl [facility] 11:50:00 [facility] CATHETER TIP CULTURE 2022-06-20 Jl [facility] 18:12:00 [facility] PICC/NON-TUNNELED CVAD 2022-06-20 Jl [facility] REMOVAL 18:10:05 [facility] BLOODCULTURE 2022-06-20 Jl [facility] 16:55:00 [facility] BLOODCULTURE 2022-06-20 Jl [facility] 16:02:00 [facility] [facility] COMPLETE BLOOD COUNT W/ 2022-06-20 Jl [facility] DIFFERENTIAL 10:16:00 [facility] SODIUM LEVEL 2022-06-20 Jl [facility] xas 10:16:00 [facility] POTASSIUM LEVEL 2022-06-20 [facility] 10:16:00 [facility] CHLORIDE LEVEL 2022-06-20 [facility]as 10:16:00 [facility] CARBON DIOXIDE LEVEL 2022-06-20 Jl [facility] 10:16:00 [facility] BLOOD UREA NITROGEN 2022-06-20 Jl [facility] 10:16:00 [facility] SERUM CREATININE 2022-06-20 Jl [facility] exas 10:16:00 [facility] GLUCOSE, RANDOM 2022-06-20 Jl [facility] xas 10:16:00 [facility] LACTATE DEHYDROGENASE 2022-06-20 Jl [facility] 10:16:00 [facility] URIC ACID 2022-06-20 Jl [facility] xas 10:16:00 [facility] PHOSPHORUS LEVEL 2022-06-20 Jl [facility] ex 10:16:00 [facility] FRACTIONATED BILIRUBIN 2022-06-20 Jl [facility] 10:16:00 [facility] ALBUMIN LEVEL 2022-06-20 J[facility]as 10:16:00 [facility] CALCIUM LEVEL TOTAL 2022-06-20 J[facility] 10:16:00 [facility] MAGNESIUM LEVEL 2022-06-20 Jl [facility] 10:16:00 [facility] ALANINE AMINOTRANSFERASE 2022-06-20 Jl [facility] 10:16:00 [facility] ASPARTATE AMINOTRANSFERASE 2022-06-20 Jl [facility] 10:16:00 [facility] ALKALINE PHOSPHATASE 2022-06-20 Jl [facility] 10:16:00 [facility] Results CBC 2022-06-20 Jl [facility] xa 10:16:00 [facility] MANUAL DIFFERENTIAL 2022-06-20 Jl [facility] 10:16:00 [facility] SERUM CREATININE 2022-06-20 Jl [facility] exas 10:16:00 [facility] .GLOMERULAR FILTRATION RATE 2022-06-20 Jl [facility] 10[facility]16:00 [facility] ANION GAP 2022-06-20 Jl [facility] xa 10:16:00 [facility] HEPATITIS C VIRUS RNA 2022-06-19 Jl [facility] DETECT/QUANT, SERUM 23:17:00 [facility] HBV DNA QUANT 2022-06-19 Jl [facility] xa 23:17:00 [facility] GENERAL LABORATORY ADD ON 2022-06-19 Jl [facility] TEST 15:44:00 [facility] GENERAL LABORATORY ADD ON 2022-06-19 [facility] 10:23:00 [facility] COMPLETE BLOOD COUNT W/ 2022-06-19 Aurda Smith [facility] DIFFERENTIAL 10:20:00 [facility] BASIC METABOLIC PANEL, 2022-06-19 [facility] 10:20:00 [facility] Results CBC 2022-06-19 [facility] 10:20:00 [facility] MANUAL DIFFERENTIAL 2022-06-19 [facility] 10:20[facility]00 [facility] GLUCOSE LEVEL 2022-06-19 [facility] 10:20:00 [facility] BLOOD UREA NITROGEN 2022-06-19 [facility] 10:20:00 [facility] ELECTROLYTE PANEL 2022-06-19 [facility] 10:20[facility]00 [facility] SERUM CREATININE 2022-06-19 [facility] ex[facility] 10:20:00 [facility] .GLOMERULAR FILTRATION RATE 2022-06-19 [facility] 10:20:00 [facility] MAGNESIUM LEVEL 2022-06-19 [facility] 10:20:00 [facility] PHOSPHORUS LEVEL 2022-06-19 [facility] ex 10:20:00 [facility] CALCIUM LEVEL TOTAL 2022-06-19 [facility] 10:20:00 [facility] ALBUMIN LEVEL 2022-06-19 [facility] 10:20:00 [facility] BLOODCULTURE 2022-06-19 Vannessa Colunga [facility] xas 09:47:00 [facility] IMMUNOGLOBULIN G SERUM 2022-06-19 [facility] 09:47:00 [facility] LACTIC ACID, VENOUS 2022-06-19 Curly Gomes [facility] 09:47:00 [facility] CALCIUM IONIZED, VENOUS 2022-06-19 [facility] 09:47:00 [facility] HP FC FLOW CYTOMETRY BLOOD 2022-06-19 [facility] COLLECTION 09:47:00 [facility] HP FC RATIO 2022-06-19 [facility] 09:47:00 [facility] BLOODCULTURE 2022-06-19 Keanu [facility] Te x[facility] 09:36:00 [facility] BLOODCULTURE 2022-06-19 Keanu [facility] xas 09:12:00 [facility] URINE CULTURE 2022-06-19 Curly Gomes [facility] 07:07:00 [facility] URINALYSIS WITH MICROSCOPIC 2022-06-19 [facility] IF INDICATED 07:07:00 [facility] URINALYSIS MICROSCOPIC EXAM 2022-06-19 [facility] [place] 07:07:00 [facility] CT CHEST PULMONARY EMBOLISM 2022-06-19 [facility] [place] W CONTRAST 03:14:09 [facility] CT ABDOMEN PELVIS W CONTRAST 2022-06-19 [facility] [place] 03:14:09 [facility] RESPIRATORY VIRAL MULTIPLEX 2022-06-19 [facility]ARY[facility]GEAL 01:46:00 [facility] POC VENOUS BLOOD GAS + 2022-06-18 Curly Gomes [facility] LACTATE 20:37:00 [facility] BLOODCULTURE 2022-06-18 Arin Francois [facility] 20:03:00 [facility] COMPLETE BLOOD COUNT W/ 2022-06-18 Arin Francois [facility] DIFFERENTIAL 20:03:00 [facility] TYPE AND SCREEN 2022-06-18 Arin Francois [facility] 20:03:00 [facility] COMPREHENSIVE METABOLIC 2022-06-18 Arin Francois [facility] PANEL 20:03:00 [facility] MAGNESIUM LEVEL 2022-06-18 Priscila [facility] 20:03:00 [facility] PHOSPHORUS LEVEL 2022-06-18 Priscila [facility] 20:03:00 [facility] PROTHROMBIN TIME 2022-06-18 [facility] 20:03[facility]00 [facility] APTT 2022-06-18 [facility] 20:03:00 [facility] D DIMER 2022-06-18 [facility] 20:03:00 [facility] FIBRINOGEN ACTIVITY 2022-06-18 [facility] 20:03:00 [facility] PROCALCITONIN 2022-06-18 [facility] 20:03:00 [facility] LACTATE DEHYDROGENASE 2022-06-18 [facility] 20:03:00 [facility] C REACTIVE PROTEIN 2022-06-18 [facility] 20:03:00 [facility] Results CBC 2022-06-18 [facility] 20:03:00 [facility] MANUAL DIFFERENTIAL 2022-06-18 [facility] 20:03:00 [facility] GLUCOSE LEVEL 2022-06-18 [facility] 20:03:00 [facility] BLOOD UREA NITROGEN 2022-06-18 [facility] 20:03:00 [facility] ELECTROLYTE PANEL 2022-06-18 [facility] 20:03:00 [facility] SERUM CREATININE 2022-06-18 [facility] 20:03:00 [facility] .GLOMERULAR FILTRATION RATE 2022-06-18 Priscila Arin [facility] 20:03:00 [facility] CALCIUM LEVEL TOTAL 2022-06-18 [facility] 20:03:00 [facility] ALBUMIN LEVEL 2022-06-18 [facility] 20:03:00 [facility] ALKALINE PHOSPHATASE 2022-06-18 [facility] 20:03:00 [facility] ALANINE AMINOTRANSFERASE 2022-06-18 Priscila [facility] 20:03:00 [facility] ASPARTATE AMINOTRANSFERASE 2022-06-18 Arin Francois [facility] 20:03:00 [facility] TOTAL PROTEIN 2022-06-18 [facility] 20:03:00 [facility] FRACTIONATED BILIRUBIN 2022-06-18 Arin Francois [facility] 20:03:00 [facility] ABORH 2022-06-18 Priscila [facility] 20:03:00 [facility] ANTIBODY SCREEN 2022-06-18 [facility] 20:03:00 [facility] CLOT EXPIRATION DATE 2022-06-18 [facility] 20:03:00 [facility] TMP INTERPRETATION ANTIBODY 2022-06-18 Arin Franocis [facility] SCREEN NEGATIVE 20:03:00 [facility] EKG, 12-LEAD (PORTABLE) 2022-06-18 Arin Francois [facility] 00:00:00 [facility] COMPLETE BLOOD COUNT W/ 2022-06-04 [facility] DIFFERENTIAL 17:49:00 [facility] TOTAL PROTEIN 2022-06-04 [facility] xas 17:49:00 [facility] ALBUMIN LEVEL 2022-06-04 [facility] xas 17:49:00 [facility] CALCIUM LEVEL TOTAL 2022-06-04 [facility] 17:49:00 [facility] PHOSPHORUS LEVEL 2022-06-04 [facility] exas 17:49:00 [facility] GLUCOSE, RANDOM 2022-06-04 [facility] Te [facility] 17:49:00 [facility] BLOOD UREA NITROGEN 2022-06-04 [facility], [facility] 17:49:00 [facility] SERUM CREATININE 2022-06-04 [facility], [facility] exas 17:49:00 [facility] URIC ACID 2022-06-04 [facility], [facility] Te xas 17:49:00 [facility] FRACTIONATED BILIRUBIN 2022-06-04 [facility] 17:49:00 [facility] ALKALINE PHOSPHATASE 2022-06-04 [facility], [facility] 17:49:00 [facility] LACTATE DEHYDROGENASE 2022-06-04 Wharton, [facility] 17:49:00 [facility] ALANINE AMINOTRANSFERASE 2022-06-04 Wharton, [facility] 17:49:00 [facility] MAGNESIUM LEVEL 2022-06-04 Wharton, [facility] Te [facility] 17:49:00 [facility] ASPARTATE AMINOTRANSFERASE 2022-06-04 Wharton, [facility] 17:49:00 [facility] ELECTROLYTE PANEL 2022-06-04 Wharton, [facility] 17:49:00 [facility] TYPE AND SCREEN 2022-06-04 [facility], [facility] xas 17:49:00 [facility] Results CBC 2022-06-04 Wharton, [facility] xa 17:49:00 [facility] MANUAL DIFFERENTIAL 2022-06-04 [place], [facility] [place] 17:49:00 [facility] SERUM CREATININE 2022-06-04 [facility], [facility] exas 17:49:00 [facility] .GLOMERULAR FILTRATION RATE 2022-06-04 [facility] 17:49:00 [facility] ABORH 2022-06-04 [facility], [facility] xas 17:49:00 [facility] ANTIBODY SCREEN 2022-06-04 [facility], [facility] xas 17:49:00 [facility] TMP INTERPRETATION ANTIBODY 2022-06-04 [facility] SCREEN NEGATIVE 17:49:00 [facility] CLOT EXPIRATION DATE 2022-06-04 [facility] 17:49:00 [facility] COVID-19 (SARS-COV-2) 2022-05-13 Luis Antonio Jules [facility] PCR-ASYMPTOMATIC [facility] 09[facility]26:00 [facility] COMPLETE BLOOD COUNT W/ 2022-05-13 [facility] DIFFERENTIAL 09:26:00 [facility] Center SODIUM LEVEL 2022-05-13 [place], [facility] Te x[facility] 09:26:00 [facility] Center POTASSIUM LEVEL 2022-05-13 Wharton, [facility] Te [facility] 09:26:00 [facility] Center CHLORIDE LEVEL 2022-05-13 Wharton, [facility] Te [facility] 09:26:00 [facility] CARBON DIOXIDE LEVEL 2022-05-13 Wharton, [facility] 09:26:00 [facility] BLOOD UREA NITROGEN 2022-05-13 [place], [facility] o [facility] 09:26:00 [facility] SERUM CREATININE 2022-05-13 Wharton, [facility] T exas 09:26:00 [facility] GLUCOSE, RANDOM 2022-05-13 Wharton, [facility] Te [facility] 09:26:00 [facility] LACTATE DEHYDROGENASE 2022-05-13 Wharton, [facility] 09:26:00 [facility] URIC ACID 2022-05-13 Wharton, [facility] Te [facility] 09:26:00 [facility] Center PHOSPHORUS LEVEL 2022-05-13 Wharton, [facility] exas 09:26:00 [facility] FRACTIONATED BILIRUBIN 2022-05-13 Wharton, [facility] 09:26:00 [facility] Center ALBUMIN LEVEL 2022-05-13 Wharton, [facility] Te [facility] 09:26:00 [facility] CALCIUM LEVEL TOTAL 2022-05-13 Wharton, [facility] o [facility] 09:26:00 [facility] Center MAGNESIUM LEVEL 2022-05-13 Wharton, [facility] Te [facility] 09:26:00 [facility] Center ALANINE AMINOTRANSFERASE 2022-05-13 [facility] 09:26:00 [facility] ASPARTATE AMINOTRANSFERASE 2022-05-13 Wharton, [facility] 09:26:00 [facility] ALKALINE PHOSPHATASE 2022-05-13 Wharton, [facility] 09:26:00 [facility] Results CBC 2022-05-13 Andres, [facility] Te [facility] 09:26:00 [facility] MANUAL DIFFERENTIAL 2022-05-13 Wharton, [facility] [place] 09:26:00 [facility] SERUM CREATININE 2022-05-13 Wharton, [facility] T exas 09:26:00 [facility] .GLOMERULAR FILTRATION RATE 2022-05-13 Andres [facility] 09:26:00 [facility] ANION GAP 2022-05-13 Wharton, [facility] 09:26:00 [facility] COMPLETE BLOOD COUNT W/ 2022-05-12 Wharton, [facility] DIFFERENTIAL 08:06:00 [facility] SODIUM LEVEL 2022-05-12 Wharton, [facility] Te [facility] 08:06:00 [facility] POTASSIUM LEVEL 2022-05-12 Wharton, [facility] Te [facility] 08:06:00 [facility] CHLORIDE LEVEL 2022-05-12 Wharton, [facility] Te [facility] 08:06:00 [facility] CARBON DIOXIDE LEVEL 2022-05-12 [facility], [facility] 08:06:00 [facility] BLOOD UREA NITROGEN 2022-05-12 [facility], [facility] 08:06:00 [facility] SERUM CREATININE 2022-05-12 Wharton, [facility] T [facility] 08:06:00 [facility] GLUCOSE, RANDOM 2022-05-12 Wharton, [facility] Te [facility] 08:06:00 [facility] LACTATE DEHYDROGENASE 2022-05-12 Wharton, [facility] 08:06:00 [facility] URIC ACID 2022-05-12 Wharton, [facility] Te [facility] 08:06:00 [facility] PHOSPHORUS LEVEL 2022-05-12 Wharton, [facility] T [facility] 08:06:00 [facility] FRACTIONATED BILIRUBIN 2022-05-12 [facility], [facility] 08:06:00 [facility] ALBUMIN LEVEL 2022-05-12 Wharton, [facility] 08:06:00 [facility] CALCIUM LEVEL TOTAL 2022-05-12 Wharton, [facility] 08:06:00 [facility] MAGNESIUM LEVEL 2022-05-12 Andres, [facility] 08:06:00 [facility] ALANINE AMINOTRANSFERASE 2022-05-12 Andres, [facility] 08:06:00 [facility] ASPARTATE AMINOTRANSFERASE 2022-05-12 Andres, [facility] 08:06:00 [facility] ALKALINE PHOSPHATASE 2022-05-12 Wharton, [facility] 08:06:00 [facility] Results CBC 2022-05-12 Andres, [facility] xas 08:06:00 [facility] MANUAL DIFFERENTIAL 2022-05-12 Wharton, [facility] 08:06:00 [facility] SERUM CREATININE 2022-05-12 Wharton, [facility] ex 08:06:00 [facility] .GLOMERULAR FILTRATION RATE 2022-05-12 Wharton [facility] 08:06:00 [facility] ANION GAP 2022-05-12 Wharton, [facility] xas 08:06:00 [facility] BLOODCULTURE 2022-05-11 Zahra Bhat [facility] ex 10:49:00 [facility] COMPLETE BLOOD COUNT W/ 2022-05-11 Andres [facility] DIFFERENTIAL 10:49:00 [facility] SODIUM LEVEL 2022-05-11 Wharton [facility] xas 10:49:00 [facility] POTASSIUM LEVEL 2022-05-11 Wharton, [facility] Te [facility] 10:49:00 [facility] CHLORIDE LEVEL 2022-05-11 [facility], [facility] 10:49:00 [facility] CARBON DIOXIDE LEVEL 2022-05-11 [facility], [facility] 10:49:00 [facility] BLOOD UREA NITROGEN 2022-05-11 [place], [facility] 10:49:00 [facility] SERUM CREATININE 2022-05-11 [facility] [place]as 10:49:00 [facility] GLUCOSE, RANDOM 2022-05-11 [place], [facility] [place] 10:49:00 [facility] LACTATE DEHYDROGENASE 2022-05-11 [place], [facility] 10:49:00 [facility] URIC ACID 2022-05-11 [place], [facility] [place] 10:49:00 [facility] Center PHOSPHORUS LEVEL 2022-05-11 [place], [facility] [place] 10:49:00 [facility] FRACTIONATED BILIRUBIN 2022-05-11 [place], [facility] 10:49:00 [facility] Center ALBUMIN LEVEL 2022-05-11 [place], [facility] [place] 10:49:00 [facility] CALCIUM LEVEL TOTAL 2022-05-11 [place], [facility] o [facility] 10:49:00 [facility] MAGNESIUM LEVEL 2022-05-11 [place], [facility] [place] 10:49:00 [facility] ALANINE AMINOTRANSFERASE 2022-05-11 [place], [facility] 10:49:00 [facility] Center ASPARTATE AMINOTRANSFERASE 2022-05-11 [place], [facility] 10:49:00 [facility] ALKALINE PHOSPHATASE 2022-05-11 [place], [facility] 10:49:00 [facility] Results CBC 2022-05-11 [place], [facility] xas 10:49:00 [facility] MANUAL DIFFERENTIAL 2022-05-11 [place], [facility] [place] 10:49:00 [facility] SERUM CREATININE 2022-05-11 [place], [facility] exas 10:49:00 [facility]) .GLOMERULAR FILTRATION RATE 2022-05-11 [facility] 10:49:00 [facility] ANION GAP 2022-05-11 [facility] [place] 10:49:00 [facility] XR CHEST 2 VW POST IMPLANT 2022-05-11 [facility] 04:10:37 [facility] XR CHEST 2 VW POST IMPLANT 2022-05-11 [facility] 04:10:37 [facility] VERIFY CATHETER TIP 2022-05-11 Chino Cavazos [facility] PLACEMENT 04:10:00 [facility] INSERT VASCULAR ACCESS 2022-05-11 [facility] 02:21:26 [facility] VASCULAR ACCESS ULTRASOUND 2022-05-11 Andres [facility] 00:43:41 [facility] TRANSESOPHAGEAL 2022-05-10 Andres [facility] xas ECHOCARDIOGRAM (ERIBERTO) 19:59:00 [facility] TYPE AND SCREEN 2022-05-10 Andres [facility] [place] 11:57:00 [facility] ABORH 2022-05-10 Andres [facility] xas 11:57:00 [facility] ANTIBODY SCREEN 2022-05-10 Andres [facility] [place] 11:57:00 [facility] COMPLETE BLOOD COUNT W/ 2022-05-10 Andres [facility] DIFFERENTIAL 11:57:00 [facility] SODIUM LEVEL 2022-05-10 Andres [facility] 11:57:00 [facility] POTASSIUM LEVEL 2022-05-10 Andres [facility] [place] 11:57:00 [facility] CHLORIDE LEVEL 2022-05-10 Andres [facility] [place] 11:57:00 [facility] CARBON DIOXIDE LEVEL 2022-05-10 Andres [facility] 11:57:00 [facility] BLOOD UREA NITROGEN 2022-05-10 Andres [facility] [place] 11:57:00 [facility] SERUM CREATININE 2022-05-10 Andres [facility] exas 11:57:00 [facility] GLUCOSE, RANDOM 2022-05-10 Andres [facility] [place] 11:57:00 [facility] LACTATE DEHYDROGENASE 2022-05-10 [facility] 11:57:00 [facility] URIC ACID 2022-05-10 Andres [facility] [place] 11:57:00 [facility] PHOSPHORUS LEVEL 2022-05-10 [facility] 11:57[facility]00 [facility] FRACTIONATED BILIRUBIN 2022-05-10 [facility] 11:57:00 [facility] ALBUMIN LEVEL 2022-05-10 [place] [place] 11:57:00 [facility] CALCIUM LEVEL TOTAL 2022-05-10 [facility] 11:57:00 [facility] MAGNESIUM LEVEL 2022-05-10 And[facility] [place] 11:57:00 [facility] ALANINE AMINOTRANSFERASE 2022-05-10 [facility] 11:57:00 [facility] ASPARTATE AMINOTRANSFERASE 2022-05-10 [facility] 11:57:00 [facility] ALKALINE PHOSPHATASE 2022-05-10 [facility] 11:57:00 [facility] Results CBC 2022-05-10 [facility] xas 11:57:00 [facility] MANUAL DIFFERENTIAL 2022-05-10 [facility] 11:57:00 [facility] SERUM CREATININE 2022-05-10 [facility] exas 11:57:00 [facility] .GLOMERULAR FILTRATION RATE 2022-05-10 [facility] 11:57:00 [facility] ANION GAP 2022-05-10 [facility] xa 11:57:00 [facility] CLOT EXPIRATION DATE 2022-05-10 [facility] 11:57:00 [facility] TMP INTERPRETATION ANTIBODY 2022-05-10 [facility] SCREEN NEGATIVE 11:57:00 [facility] CATHETER TIP CULTURE 2022-05-10 [facility] 01:01:00 [facility] CT ABDOMEN PELVIS W WO 2022-05-09 Atiya Smallwood [facility] CONTRAST 22:44:17 [facility] ECHOCARDIOGRAM 2D COMPLETE 2022-05-09 [facility] 15:43:49 [facility] VANCOMYCIN LEVEL TROUGH 2022-05-09 Luis Antonio Jules [facility] 06:55:00 [facility] COMPLETE BLOOD COUNT W/ 2022-05-09 [place], [facility] DIFFERENTIAL 06:55:00 [facility] SODIUM LEVEL 2022-05-09 [facility], [facility] [place] 06:55:00 [facility] POTASSIUM LEVEL 2022-05-09 [place], [facility] [place] 06:55:00 [facility] CHLORIDE LEVEL 2022-05-09 [place], [facility] [place] 06:55:00 [facility] CARBON DIOXIDE LEVEL 2022-05-09 [facility], [facility] 06:55:00 [facility] BLOOD UREA NITROGEN 2022-05-09 [facility], [facility] o [facility] 06:55:00 [facility] SERUM CREATININE 2022-05-09 [place], [facility] exas 06:55:00 [facility] GLUCOSE, RANDOM 2022-05-09 [place], [facility] [place] 06:55:00 [facility] LACTATE DEHYDROGENASE 2022-05-09 [facility], [facility] 06:55:00 [facility] URIC ACID 2022-05-09 [facility], [facility] [place] 06:55:00 [facility] PHOSPHORUS LEVEL 2022-05-09 [facility]as 06:55:00 [facility] FRACTIONATED BILIRUBIN 2022-05-09 [place], [facility] 06:55:00 [facility] ALBUMIN LEVEL 2022-05-09 [place], [facility] [place] 06:55:00 [facility] CALCIUM LEVEL TOTAL 2022-05-09 [facility], [facility] 06:55:00 [facility] MAGNESIUM LEVEL 2022-05-09 [facility], [facility] [place] 06:55:00 [facility] ALANINE AMINOTRANSFERASE 2022-05-09 [place], [facility] 06:55:00 [facility] ASPARTATE AMINOTRANSFERASE 2022-05-09 [facility] 06:55:00 [facility] ALKALINE PHOSPHATASE 2022-05-09 [place], [facility] 06:55:00 [facility] Results CBC 2022-05-09 [place], [facility] [place] 06:55:00 [facility] MANUAL DIFFERENTIAL 2022-05-09 [facility] [place] 06:55:00 [facility] SERUM CREATININE 2022-05-09 Andres [facility] [place] 06:55:00 [facility] .GLOMERULAR FILTRATION RATE 2022-05-09 [facility] 06:55:00 [facility] ANION GAP 2022-05-09 [facility] xas 06:55:00 [facility] BLOODCULTURE 2022-05-08 [facility] xas 21:31:00 [facility] BLOODCULTURE 2022-05-08 [facility] 21:25:00 [facility] COMPLETE BLOOD COUNT W/ 2022-05-08 [facility] DIFFERENTIAL 10:54:00 [facility] SODIUM LEVEL 2022-05-08 [facility] xas 10:54:00 [facility] POTASSIUM LEVEL 2022-05-08 [facility] xas 10:54:00 [facility] CHLORIDE LEVEL 2022-05-08 [facility], [facility] [place] 10:54:00 [facility] CARBON DIOXIDE LEVEL 2022-05-08 [facility] 10:54:00 [facility] BLOOD UREA NITROGEN 2022-05-08 [facility] [place] 10:54:00 [facility] SERUM CREATININE 2022-05-08 [facility] [place] 10:54:00 [facility] GLUCOSE, RANDOM 2022-05-08 [facility] [place] 10:54:00 [facility] LACTATE DEHYDROGENASE 2022-05-08 [facility] 10:54:00 [facility] URIC ACID 2022-05-08 [place], [facility] [place] 10:54:00 [facility] Center PHOSPHORUS LEVEL 2022-05-08 [place], [facility] [place] 10:54:00 [facility] FRACTIONATED BILIRUBIN 2022-05-08 [place], [facility] 10:54:00 [facility] ALBUMIN LEVEL 2022-05-08 [place], [facility] [place] 10:54:00 [facility] CALCIUM LEVEL TOTAL 2022-05-08 [place], [facility] [place] 10:54:00 [facility] MAGNESIUM LEVEL 2022-05-08 [place], [facility] [place] 10:54:00 [facility] ALANINE AMINOTRANSFERASE 2022-05-08 [place], [facility] 10:54:00 [facility] ASPARTATE AMINOTRANSFERASE 2022-05-08 [facility] 10:54:00 [facility] ALKALINE PHOSPHATASE 2022-05-08 [place], [facility] 10:54:00 [facility] Results CBC 2022-05-08 [facility] [place] 10:54:00 [facility] MANUAL DIFFERENTIAL 2022-05-08 [place], [facility] o [facility] 10:54:00 [facility] SERUM CREATININE 2022-05-08 [facility] exas 10:54:00 [facility] .GLOMERULAR FILTRATION RATE 2022-05-08 [facility] 10:[facility]00 [facility] ANION GAP 2022-05-08 [facility] [place] 10:54:00 [facility] US ARM VENOUS [facility]OPPLER LEFT [facility]22[facility]05-[facility] 20[facility]13[facility]44 [facility] BLOODCULTURE 2022-05-07 [facility] [place] 17:41:00 [facility] BLOODCULTURE 2022-05-07 [facility] [place] 16:46:00 [facility] COMPLETE BLOOD COUNT W/ 2022-05-07 Andres [facility] DIFFERENTIAL 08:41:00 [facility] Center SODIUM LEVEL 2022-05-07 [place], [facility] [place] 08:41:00 [facility] Center POTASSIUM LEVEL 2022-05-07 [place], [facility] [place] 08:41:00 [facility] Center CHLORIDE LEVEL 2022-05-07 [place], [facility] [place] 08:41:00 [facility] Center CARBON DIOXIDE LEVEL 2022-05-07 [place], [facility] 08:41:00 [facility] BLOOD UREA NITROGEN 2022-05-07 [place], [facility] [place] 08:41:00 [facility] SERUM CREATININE 2022-05-07 [place], [facility] exas 08:41:00 [facility] GLUCOSE, RANDOM 2022-05-07 [place], [facility] [place] 08:41:00 [facility] Center LACTATE DEHYDROGENASE 2022-05-07 [place], [facility] 08:41:00 [facility] Center URIC ACID 2022-05-07 [place], [facility] [place] 08:41:00 [facility] Center PHOSPHORUS LEVEL 2022-05-07 [facility], [facility] exas 08:41:00 [facility] FRACTIONATED BILIRUBIN 2022-05-07 [place], [facility] 08:41:00 [facility] Center ALBUMIN LEVEL 2022-05-07 [place], [facility] [place] 08:41:00 [facility] Center CALCIUM LEVEL TOTAL 2022-05-07 [facility], [facility] o [facility] 08:41:00 [facility] Center MAGNESIUM LEVEL 2022-05-07 [facility], [facility] [place] 08:41:00 [facility] Center ALANINE AMINOTRANSFERASE 2022-05-07 [facility] 08:41:00 [facility] Center ASPARTATE AMINOTRANSFERASE 2022-05-07 [place], [facility] 08:41:00 [facility] Center ALKALINE PHOSPHATASE 2022-05-07 [place], [facility] 08:41:00 [facility] Results CBC 2022-05-07 [facility] [place] 08:41:00 [facility] MANUAL DIFFERENTIAL 2022-05-07 [facility] [place] 08:41:00 [facility] SERUM CREATININE 2022-05-07 [facility] [place] 08:41:00 [facility] .GLOMERULAR FILTRATION RATE 2022-05-07 [facility] 08:41:00 [facility] ANION GAP 2022-05-07 [facility] xas 08:41:00 [facility] BLOODCULTURE 2022-05-07 [facility] 00:56:00 [facility] URINALYSIS WITH MICROSCOPIC 2022-05-06 [facility] IF INDICATED 11:04:00 [facility] URINALYSIS MICROSCOPIC EXAM 2022-05-06 [facility] 11:04:00 [facility] URINE CULTURE 2022-05-06 [facility]as 11:04:00 [facility] POC CHEM 8 2022-05-06 [facility] xas 09:05:00 [facility] XR CHEST 1 VW PORTABLE [facility]22[facility]05-06 [facility] 08[facility]54:33 [facility] BLOODCULTURE 2022-05-06 [facility] 08:46:00 [facility] POC VENOUS BLOOD GAS + 2022-05-06 [facility] LACTATE 08:30:00 [facility] COMPLETE BLOOD COUNT W/ 2022-05-06 [facility] DIFFERENTIAL 08:29:00 [facility] TYPE AND SCREEN 2022-05-06 [facility]as 08:29:00 [facility] COMPREHENSIVE METABOLIC 2022-05-06 [facility] PANEL 08:29:00 [facility] MAGNESIUM LEVEL 2022-05-06 [facility] 08:29:00 [facility] PHOSPHORUS LEVEL 2022-05-06 [facility] exas 08:29:00 [facility] PROTHROMBIN TIME 2022-05-06 [facility] ex 08:29:00 [facility] APTT 2022-05-06 [facility] 08:29:00 [facility] D DIMER 2022-05-06 [facility] xa 08:29:00 [facility] FIBRINOGEN ACTIVITY 2022-05-06 [facility] [place] 08:29:00 [facility] PROCALCITONIN 2022-05-06 [facility] xa 08:29:00 [facility] LACTATE DEHYDROGENASE 2022-05-06 [facility] 08[facility]29:00 [facility] C REACTIVE PROTEIN 2022-05-06 [facility] 08[facility]29:00 [facility] CARDIAC PANEL 2022-05-06 [facility] xa 08:29:00 [facility] Results CBC 2022-05-06 [facility] 08:29:00 [facility] MANUAL DIFFERENTIAL 2022-05-06 [facility] [place] 08:29:00 [facility] GLUCOSE LEVEL 2022-05-06 [facility] xa 08:29:00 [facility] BLOOD UREA NITROGEN 2022-05-06 [facility] [place] 08:29:00 [facility] ELECTROLYTE PANEL 2022-05-06 [facility] 08[facility]29:00 [facility] SERUM CREATININE 2022-05-06 [facility] ex 08:29:00 [facility] .GLOMERULAR FILTRATION RATE 2022-05-06 [facility] 08:29:00 [facility] CALCIUM LEVEL TOTAL 2022-05-06 [facility] [place] 08:29:00 [facility] ALBUMIN LEVEL 2022-05-06 [facility] 08:29:00 [facility] ALKALINE PHOSPHATASE 2022-05-06 [facility] 08[facility]29:00 [facility] ALANINE AMINOTRANSFERASE 2022-05-[address] [facility] 08:29:00 [facility] ASPARTATE AMINOTRANSFERASE 2022-05-06 [facility] 08[facility]29:00 [facility] TOTAL PROTEIN 2022-05-06 [facility]as 08:29:00 [facility] FRACTIONATED BILIRUBIN 2022-05-06 [facility] 08:29:00 [facility] ABORH 2022-05-06 [facility] xas 08:29:00 [facility] [facility]) ANTIBODY SCREEN 2022-05-06 [facility] xas 08:29:00 [facility] CLOT EXPIR[facility] DATE [facility]22[facility]00 [facility] TMP INTERPRETATION ANTIBODY 2022-05-06 [facility] SCREEN NEGATIVE 08:29:00 [facility] BLOODCULTURE 2022-05-06 [facility] xas 08:29:00 [facility] RESPIRATORY VIRAL MULTIPLEX 2022-05-06 [facility] PCR PANEL, NASOPHARYNGEAL 08:29:00 [facility] POC GLUCOSE SCREEN 2022-05-06 [facility] 08:17:00 [facility] EKG, 12-LEAD (PORTABLE) 2022-05-06 [facility] 00:00:00 [facility] COMPLETE BLOOD COUNT W/ 2022-03-[facility]00 Lefty GRACIA [facility] COMPREHENSIVE METABOLIC 2022-03-19 Bud [facility] PANEL 19:48:00 Lefty GRACIA [facility] URIC ACID 2022-03-19 [facility]00 [facility] LACTATE DEHYDROGENASE 2022-03-19 [facility] 19:48[facility]00 [facility] MAGNESIUM LEVEL 2022-03-19 [facility] 19:48[facility]00 [facility] PHOSPHORUS LEVEL 2022-03-19 [facility] 19:48[facility]00 [facility] TYPE AND SCREEN 2022-03-19 [facility] 19:48[facility]00 [facility] Results CBC 2022-03-19 [facility] 19:48:00 [facility] MANUAL DIFFERENTIAL 2022-03-19 [facility] 19:48:00 [facility] GLUCOSE LEVEL 2022-03-19 [facility] 19:48:00 [facility] BLOOD UREA NITROGEN 2022-03-19 [facility] 19:48:00 [facility] ELECTROLYTE PANEL 2022-03-19 [facility] 19:48:00 [facility] SERUM CREATININE 2022-03-19 [facility] 19:[facility]00 [facility] .GLOMERULAR FILTRATION RATE 2022-03-19 [facility] 19:48:00 Olea [facility] CALCIUM LEVEL TOTAL 2022-03-19 [facility] 19:48:00 [facility] ALBUMIN LEVEL 2022-03-19 [facility] 19:48:00 [facility] ALKALINE PHOSPHATASE 2022-03-19 [facility] 19:48:00 [facility] ALANINE AMINOTRANSFERASE 2022-03-19 [facility] 19:48:00 [facility] ASPARTATE AMINOTRANSFERASE 2022-03-19 [facility] 19:48[facility]00 [facility] TOTAL PROTEIN 2022-03-19 [facility] 19:48:00 Lefty GRACIA [facility] FRACTIONATED BILIRUBIN 2022-03-19 Bud [facility] [place] 19:48:00 Lefty GRACIA [facility] ABORH 2022-03-19 [facility] 19:48:00 Lefty GRACIA [facility] ANTIBODY SCREEN 2022-03-19 [facility] 19:48:00 Lefty GRACIA [facility] CLOT EXPIRATION DATE 2022-03-19 Bud [facility] 19:48:00 Lefty GRACIA [facility] TMP INTERPRETATION ANTIBODY 2022-03-19 [facility] SCREEN NEGATIVE 19:48:00 Lefty GRACIA [facility] CT CHEST ABDOMEN PELVIS W 2022-03-18 [facility] CONTRAST 19:20:00 Jihan GRACIA [facility] URINALYSIS WITH MICROSCOPIC 2022-03-16 [facility]tonL[facility] croft [facility] IF INDICATED 10:50:00 [facility] URINE CULTURE 2022-03-16 [facility] 10:50[facility]00 [facility] CT ABDOMEN PELVIS W CONTRAST 2022-03-16 M[facility]tonL[facility] cro[facility] 08:47:00 [facility] POC CHEM 8 2022-03-16 Lb [place] [facility] xas 08:14:00 [facility] COMPLETE BLOOD COUNT W/ 2022-03-16 Lb [place] [facility] DIFFERENTIAL 08:08:00 [facility] COMPREHENSIVE METABOLIC 2022-03-16 Kenney [facility] PANEL 08:08:00 [facility] MAGNESIUM LEVEL 2022-03-16 Kenney [facility] xas 08:08:00 [facility] PHOSPHORUS LEVEL 2022-03-16 Lb [place] [facility] [place] 08:08:00 [facility] Results CBC 2022-03-16 Kenney [facility] 08:08:00 [facility] MANUAL DIFFERENTIAL 2022-03-16 Lb [place] 08:08:00 [facility] GLUCOSE LEVEL 2022-03-16 [facility] 08:08:00 [facility] BLOOD UREA NITROGEN 2022-03-16 [facility] 08:08:00 [facility] ELECTROLYTE PANEL 2022-03-16 [facility] 08:08:00 [facility] SERUM CREATININE 2022-03-16 [facility] 08:08:00 [facility] .GLOMERULAR FILTRATION RATE 2022-03-16 [facility] 08[facility]08:00 [facility] CALCIUM LEVEL TOTAL 2022-03-16 [facility] 08:08:00 [facility] ALBUMIN LEVEL 2022-03-16 [facility] xas 08:08:00 [facility] ALKALINE PHOSPHATASE 2022-03-16 [facility] 08:08:00 [facility] ALANINE AMINOTRANSFERASE 2022-03-16 [facility] 08:08:00 [facility] ASPARTATE AMINOTRANSFERASE 2022-03-16 [facility] 08[facility]08:00 [facility] TOTAL PROTEIN 2022-03-16 [facility] x[facility] 08:08:00 [facility] FRACTIONATED BILIRUBIN 2022-03-16 [facility] 08:08:00 [facility] LACTATE DEHYDROGENASE 2022-03-16 [facility] 07[facility]58:00 [facility] AMYLASE LEVEL 2022-03-16 [facility] x[facility] 07:58:00 [facility] LIPASE LEVEL 2022-03-16 [facility] xas 07:58:00 [facility] COMPLETE BLOOD COUNT W/ 2022-02-26 Curly Fay [facility] DIFFERENTIAL 16:30:00 [facility] COMPREHENSIVE METABOLIC 2022-02-26 Curly Fay [facility] PANEL 16:30:00 [facility] LACTATE DEHYDROGENASE 2022-02-26 [facility] 16:30:00 [facility] MAGNESIUM LEVEL 2022-02-26 [facility] 16:30:00 [facility] PHOSPHORUS LEVEL 2022-02-26 [facility] 16:30:00 [facility] TYPE AND SCREEN 2022-02-26 [facility] 16:30:00 [facility] URIC ACID 2022-02-26 [facility] 16:30:00 [facility] Results CBC 2022-02-26 [facility] 16:30:00 [facility] MANUAL DIFFERENTIAL 2022-02-26 [facility] 16:30:00 [facility] GLUCOSE LEVEL 2022-02-26 [facility] 16:30:00 [facility] BLOOD UREA NITROGEN 2022-02-26 Nya [facility] 16:30:00 [facility] ELECTROLYTE PANEL 2022-02-26 [facility] 16:30:00 [facility] SERUM CREATININE 2022-02-26 [facility] 16:30:00 [facility] .GLOMERULAR FILTRATION RATE 2022-02-26 [facility] 16:30:00 [facility] CALCIUM LEVEL TOTAL 2022-02-26 [facility] 16:30:00 [facility] ALBUMIN LEVEL 2022-02-26 [facility] 16:30:00 [facility] ALKALINE PHOSPHATASE 2022-02-26 [facility] 16:30:00 [facility] ALANINE AMINOTRANSFERASE 2022-02-26 Curly Fay [facility] 16:30:00 [facility] ASPARTATE AMINOTRANSFERASE 2022-02-26 [facility] 16:30:00 [facility] TOTAL PROTEIN 2022-02-26 Kymberly Faynathan [facility] 16:30:00 [facility] FRACTIONATED BILIRUBIN 2022-02-26 Curly Fay [facility] 16:30:00 [facility] ABORH 2022-02-26 [facility] 16:30:00 [facility] ANTIBODY SCREEN 2022-02-26 Nya [facility] 16:30:00 [facility] TMP INTERPRETATION ANTIBODY 2022-02-26 [facility] SCREEN NEGATIVE 16:30:00 [facility] CLOT EXPIRATION DATE 2022-02-26 Curly Fay [facility] 16:30:00 [facility] COMPLETE BLOOD COUNT W/ 2022-02-06 [facility] 17:19:00 [facility] COMPREHENSIVE METABOLIC 2022-02-06 [facility] 17:19:00 [facility] TYPE AND SCREEN 2022-02-06 [facility] xas 17:19:00 [facility] LACTATE DEHYDROGENASE 2022-02-06 Curly Fay [facility] 17:19:00 [facility] MAGNESIUM LEVEL 2022-02-06 Nya [facility] 17:19:00 [facility] PHOSPHORUS LEVEL 2022-02-06 Nya [facility] 17:19:00 [facility] URIC ACID 2022-02-06 Nya [facility] 17:19:00 [facility] Results CBC 2022-02-06 [facility] 17:19:00 [facility] MANUAL DIFFERENTIAL 2022-02-06 De Leon [facility] 17:19:00 [facility] GLUCOSE LEVEL 2022-02-06 [facility] 17:19:00 [facility] BLOOD UREA NITROGEN 2022-02-[address] [facility] 17:19:00 [facility] ELECTROLYTE PANEL 2022-02-06 [facility] 17:19:00 [facility] SERUM CREATININE 2022-02-06 [facility] exas 17:19:00 [facility] .GLOMERULAR FILTRATION RATE 2022-02-06 [facility] 17:19:00 [facility] CALCIUM LEVEL TOTAL 2022-02-[address] [facility] 17:19:00 [facility] ALBUMIN LEVEL 2022-02-06 [facility] xa 17:19:00 [facility] ALKALINE PHOSPHATASE 2022-02-06 [facility] 17:19:00 [facility] ALANINE AMINOTRANSFERASE 2022-02-06 [facility] 17:19:00 [facility] ASPARTATE AMINOTRANSFERASE 2022-02-06 [facility] 17:19:00 [facility] TOTAL PROTEIN 2022-02-06 [facility] xa 17:19:00 [facility] FRACTIONATED BILIRUBIN 2022-02-06 [facility] 17:19:00 [facility] ABORH 2022-02-06 [facility] xa 17:19:00 [facility] ANTIBODY SCREEN 2022-02-06 [facility] xa 17:19:00 [facility] CLOT EXPIRATION DATE 2022-02-06 [facility] 17:19:00 [facility] TMP INTERPRETATION ANTIBODY 2022-02-06 [facility] SCREEN NEGATIVE 17:19:00 [facility] COMPLETE BLOOD COUNT W/ 2022-01-09 Marciano Mayer [facility] DIFFERENTIAL 11:39:00 [facility] TOTAL PROTEIN 2022-01-09 Pablito [facility] 11:39:00 [facility] ALBUMIN LEVEL 2022-01-09 [facility] 11:39:00 [facility] CALCIUM LEVEL TOTAL 2022-01-09 [facility] 11:39:00 [facility] PHOSPHORUS LEVEL 2022-01-09 [facility] exas 11:39:00 [facility] GLUCOSE, RANDOM 2022-01-09 [facility] 11:39:00 [facility] BLOOD UREA NITROGEN 2022-01-09 [facility] [place] 11:39:00 [facility] SERUM CREATININE 2022-01-09 [facility] exas 11:39:00 [facility] URIC ACID 2022-01-09 [facility] 11:39:00 [facility] FRACTIONATED BILIRUBIN 2022-01-09 [facility] 11:39:00 [facility] ALKALINE PHOSPHATASE 2022-01-09 [facility] 11:39:00 [facility] LACTATE DEHYDROGENASE 2022-01-09 [facility] 11:39:00 [facility] ALANINE AMINOTRANSFERASE 2022-01-09 [facility] 11:39:00 [facility] MAGNESIUM LEVEL 2022-01-09 [facility] 11:39:00 [facility] ASPARTATE AMINOTRANSFERASE 2022-01-09 [facility] 11:39:00 [facility] ELECTROLYTE PANEL 2022-01-09 [facility] 11:39:00 [facility] HBV DNA QUANT 2022-01-09 [facility] xas 11:39:00 [facility] Results CBC 2022-01-09 [facility] 11:39:00 [facility] MANUAL DIFFERENTIAL 2022-01-09 Phoebe Perez [facility] 11:39:00 [facility] SERUM CREATININE 2022-01-09 NePhoebe marks [facility] 11:39:00 [facility] .GLOMERULAR FILTRATION RATE 2022-01-09 Phoebe Perez [facility] 11:39:00 [facility] PETCT SUBSEQUENT TREATMENT 2022-01-08 Kymberly Faynathan [facility] STRATEGY 21:21:00 [facility] COMPLETE BLOOD COUNT W/ 2021-12-23 Curly Fay [facility] DIFFERENTIAL 09:59:00 [facility] SODIUM LEVEL 2021-12-23 [facility] 09:59:00 [facility] POTASSIUM LEVEL 2021-12-23 [facility] 09:59:00 [facility] CHLORIDE LEVEL 2021-12-23 [facility] 09:59:00 [facility] CARBON DIOXIDE LEVEL 2021-12-23 Curly Fay [facility] 09:59:00 [facility] BLOOD UREA NITROGEN 2021-12-23 Curly Fay [facility] 09:59:00 [facility] SERUM CREATININE 2021-12-23 Nya [facility] 09:59:00 [facility] GLUCOSE, RANDOM 2021-12-23 [facility] 09:59:00 [facility] LACTATE DEHYDROGENASE 2021-12-23 Curly Fay [facility] 09:59:00 [facility] URIC ACID 2021-12-23 Nya [facility] 09:59:00 [facility] PHOSPHORUS LEVEL 2021-12-23 [facility] 09:59:00 [facility] FRACTIONATED BILIRUBIN 2021-12-23 [facility] 09:59:00 [facility] ALBUMIN LEVEL 2021-12-23 [facility] 09:59:00 [facility] CALCIUM LEVEL TOTAL 2021-12-23 [facility] 09:59:00 [facility] MAGNESIUM LEVEL 2021-12-23 Nya [facility] 09:59:00 [facility] ALANINE AMINOTRANSFERASE 2021-12-23 Curly Fay [facility] 09:59:00 [facility] ASPARTATE AMINOTRANSFERASE 2021-12-23 Nya [facility] 09:59:00 [facility] ALKALINE PHOSPHATASE 2021-12-23 Kymberly Faynathan [facility] 09:59:00 [facility] Results CBC 2021-12-23 Nya [facility] 09:59:00 [facility] MANUAL DIFFERENTIAL 2021-12-23 Curly Fay [facility] 09:59:00 [facility] SERUM CREATININE 2021-12-23 Nya [facility] 09:59:00 [facility] .GLOMERULAR FILTRATION RATE 2021-12-23 Nya [facility] 09:59:00 [facility] ANION GAP 2021-12-23 Nya [facility] 09:59:00 [facility] PROCALCITONIN 2021-12-22 [facility] xa 21:07:00 [facility] COMPLETE BLOOD COUNT W/ 2021-12-22 Curly Fay [facility] DIFFERENTIAL 08:04:00 [facility] SODIUM LEVEL 2021-12-22 Nya [facility] 08:04:00 [facility] POTASSIUM LEVEL 2021-12-22 Nya [facility] 08:04:00 [facility] CHLORIDE LEVEL 2021-12-22 Nya [facility] 08:04:00 [facility] CARBON DIOXIDE LEVEL 2021-12-22 Lillie [facility] 08:04:00 [facility] BLOOD UREA NITROGEN 2021-12-22 Curly Fay [facility] 08:04:00 [facility] SERUM CREATININE 2021-12-22 Nya [facility] 08:04:00 [facility] GLUCOSE, RANDOM 2021-12-22 Nya [facility] 08:04:00 [facility] LACTATE DEHYDROGENASE 2021-12-22 Curly Fay [facility] 08:04:00 [facility] URIC ACID 2021-12-22 Nya [facility] 08:04:00 [facility] PHOSPHORUS LEVEL 2021-12-22 [facility] 08:04:00 [facility] FRACTIONATED BILIRUBIN 2021-12-22 [facility] 08:04:00 [facility] ALBUMIN LEVEL 2021-12-22 [facility] 08:04:00 [facility] CALCIUM LEVEL TOTAL 2021-12-22 Nya Curly [facility] 08:04:00 [facility] MAGNESIUM LEVEL 2021-12-22 [facility] 08:04:00 [facility] ALANINE AMINOTRANSFERASE 2021-12-22 Curly Fay [facility] 08:04:00 [facility] ASPARTATE AMINOTRANSFERASE 2021-12-22 [facility] 08:04:00 [facility] ALKALINE PHOSPHATASE 2021-12-22 Nya Curly American [facility] 08:04:00 [facility] Results CBC 2021-12-22 Nya [facility] 08:04:00 [facility] MANUAL DIFFERENTIAL 2021-12-22 Nya [facility] 08[facility]04:00 [facility] SERUM [facility]ATININE 2021[facility]12[facility]22 [facility] .GLOMERULAR FILTRATION RATE 2021-12-22 Nya [facility] 08:04:00 [facility] TYPE AND SCREEN 2021-12-22 Nya [facility] 02:34:00 [facility] ABORH 2021-12-22 Nya [facility] 02:34:00 [facility] ANTIBODY SCREEN 2021-12-22 [facility] 02:[facility]00 [facility] COMPLETE BLOOD COUNT W/ 2021-12[facility] 02:34:00 [facility] BASIC METABOLIC PANEL, 2021-12-22 [facility] CALCIUM TOTAL 02:34:00 [facility] MAGNESIUM LEVEL 2021-12-22 [facility] ex 02:34:00 [facility] PHOSPHORUS LEVEL 2021-12-22 [facility] 02:34:00 [facility] Results CBC 2021-12-22 [facility] ex 02[facility]34:00 [facility] MANUAL DIFFERENTIAL 2021-12-22 [facility] 02:34:00 [facility] GLUCOSE LEVEL 2021-12-22 [facility] ex 02:34:00 [facility] ELECTROLYTE PANEL 2021-12-22 [facility] 02:34:00 [facility] SERUM CREATININE 2021-12-22 [facility] 02:34:00 [facility] .GLOMERULAR FILTRATION RATE 2021-12-[address] [facility] 02:34:00 [facility] CALCIUM LEVEL TOTAL 2021-12-22 [facility] 02:34:00 [facility] BLOOD UREA NITROGEN 2021-12-22 [facility] 02:34:00 [facility] CLOT EXPIRATION DATE 2021-12-22 [facility] 02:34[facility]00 [facility] TMP INTERPRETATION ANTIBODY 2021-12-22 Curly Fay [facility] SCREEN NEGATIVE 02:34:00 [facility] COVID-19 (SARS-COV-2) 2021-12-22 Phoebe Perez [facility] ASYMPTOMATIC-LT 01:09:00 [facility] COMPLETE BLOOD COUNT W/ 2021-12-18 Leyla [facility] DIFFERENTIAL 17:16:00 [facility] TOTAL PROTEIN 2021-12-18 [facility]00 [facility] ALBUMIN LEVEL 2021-12-18 [facility] 17:16[facility]00 [facility] CALCIUM LEVEL TOTAL 2021-12-18 [facility] 17:16[facility]00 [facility] PHOSPHORUS LEVEL 2021-12-18 [facility] 17:16:00 [facility] GLUCOSE, RANDOM 2021-12-18 [facility] 17:16[facility]00 [facility] BLOOD UREA NITROGEN 2021-12-18 [facility] 17:16[facility]00 [facility] SERUM CREATININE 2021-12-18 [facility] 17:16:00 [facility] URIC ACID 2021-12-18 [facility] 17:16:00 [facility] FRACTIONATED BILIRUBIN 2021-12-18 [facility] 17:16[facility]00 [facility] ALKALINE PHOSPHATASE 2021-12-18 [facility] 17:16:00 [facility] LACTATE DEHYDROGENASE 2021-12-18 Leyla [facility] 17:16:00 [facility] ALANINE AMINOTRANSFERASE 2021-12-18 [facility] 17:16:00 [facility] MAGNESIUM LEVEL 2021-12-18 [facility] 17:16:00 [facility] ASPARTATE AMINOTRANSFERASE 2021-12-18 Marciano Mayer [facility] 17:16:00 [facility] ELECTROLYTE PANEL 2021-12-18 Marciano Mayer [facility] 17:16:00 [facility] Results CBC 2021-12-18 Severo Munroe [facility] 17:16:00 [facility] MANUAL DIFFERENTIAL 2021-12-18 Severo Munroe [facility] 17:16:00 [facility] SERUM CREATININE 2021-12-18 Severo Munroe [facility] 17:16:00 [facility] .GLOMERULAR FILTRATION RATE 2021-12-18 Severo Munroe [facility] 17:16:00 [facility] COMPLETE BLOOD COUNT W/ 2021-12-03 Lucinda Antoine [facility] DIFFERENTIAL 17:31:00 [facility] TOTAL PROTEIN 2021-12-03 Lucinda Antoine [facility] xa 17:31:00 [facility] ALBUMIN LEVEL 2021-12-03 Lucinda Antoine [facility] 17:31:00 [facility] CALCIUM LEVEL TOTAL 2021-12-03 Lucinda Antoine [facility] 17:31:00 [facility] PHOSPHORUS LEVEL 2021-12-03 Lucinda Antoine [facility] ex 17:31:00 [facility] GLUCOSE, RANDOM 2021-12-03 Lucinda Antoine [facility] xa 17:31:00 [facility] BLOOD UREA NITROGEN 2021-12-03 Lucinda Antoine [facility] 17:31:00 [facility] SERUM CREATININE 2021-12-03 Lucinda Antoine [facility] exas 17:31:00 [facility] URIC ACID 2021-12-03 Lucinda Antoine [facility] xa 17:31:00 [facility] FRACTIONATED BILIRUBIN 2021-12-03 Lucinda Antoine [facility] 17:31:00 [facility] ALKALINE PHOSPHATASE 2021-12-03 Lucinda Antoine [facility] 17:31:00 [facility] LACTATE DEHYDROGENASE 2021-12-03 Lucinda Antoine [facility] 17:31:00 [facility] ALANINE AMINOTRANSFERASE 2021-12-03 Lucinda Antoine [facility] 17:31:00 [facility] MAGNESIUM LEVEL 2021-12-03 Lucinda Antoine [facility] xa 17:31:00 [facility] ASPARTATE AMINOTRANSFERASE 2021-12-03 Lucinda Antoine [facility] 17:31:00 [facility] ELECTROLYTE PANEL 2021-12-03 Lucinda Antoine [facility] 17:31:00 [facility] TYPE AND SCREEN 2021-12-03 Lucinda Antoine [facility] xa 17:31:00 [facility] Results CBC 2021-12-03 Lucinda Antoine [facility] 17:31:00 [facility] MANUAL DIFFERENTIAL 2021-12-03 Lucinda Antoine [facility] 17:31:00 [facility] SERUM CREATININE 2021-12-03 Lucinda Antoine [facility] ex 17:31:00 [facility] .GLOMERULAR FILTRATION RATE 2021-12-03 Lucinda Antoine [facility] 17:31:00 [facility] ABORH 2021-12-03 Lucinda Antoine [facility] xa 17:31:00 [facility] ANTIBODY SCREEN 2021-12-03 Lucinda Antoine [facility] 17:31:00 [facility] CLOT EXPIRATION DATE 2021-12-03 Lucinda Antoine [facility] 17:31:00 [facility] TMP INTERPRETATION ANTIBODY 2021-12-03 Lucinda Antoine [facility] SCREEN NEGATIVE 17:31:00 [facility] COMPLETE BLOOD COUNT W/ 2021-11-26 Marciano Mayer [facility] DIFFERENTIAL 09:44:00 [facility] SODIUM LEVEL 2021-11-26 Leyla [facility] 09:44:00 [facility] POTASSIUM LEVEL 2021-11-26 Leyla [facility] 09:44:00 [facility] CHLORIDE LEVEL 2021-11-26 [facility] 09:44:00 [facility] Center CARBON DIOXIDE LEVEL 2021-11-26 [facility] 09:44:00 [facility] BLOOD UREA NITROGEN 2021-11-26 [facility] 09:44:00 [facility] SERUM CREATININE 2021-11-26 [facility] 09:44:00 [facility] GLUCOSE, RANDOM 2021-11-26 [facility] 09:44:00 [facility] LACTATE DEHYDROGENASE 2021-11-26 [facility] 09:44:00 [facility] URIC ACID 2021-11-26 [facility] 09:44:00 [facility] Center PHOSPHORUS LEVEL 2021-11-26 [facility] 09:44:00 [facility] FRACTIONATED BILIRUBIN 2021-11-26 [facility] 09:44[facility]00 [facility] Center ALBUMIN LEVEL 2021-11-26 [facility] 09:44:00 [facility] Center CALCIUM LEVEL TOTAL 2021-11-26 [facility] 09:44[facility]00 [facility] Center MAGNESIUM LEVEL 2021-11-26 [facility] 09:44[facility]00 [facility] ALANINE AMINOTRANSFERASE 2021-11-26 [facility] 09:44:00 [facility] Center ASPARTATE AMINOTRANSFERASE 2021-11-26 [facility] 09:44[facility]00 [facility] Center ALKALINE PHOSPHATASE 2021-11-26 [facility] 09:44:00 [facility] Results CBC 2021-11-26 Severo Munroe [facility] 09:44:00 [facility] Center MANUAL DIFFERENTIAL 2021-11-26 Severo Munroe [facility] 09:44:00 [facility] Center SERUM CREATININE 2021-11-26 Severo Munroe [facility] 09:44:00 [facility] .GLOMERULAR FILTRATION RATE 2021-11-26 Severo Munroe [facility] 09:44:00 [facility] ANION GAP 2021-11-26 Severo Munroe [facility] 09:44:00 [facility] TYPE AND SCREEN 2021-11-25 Leyla [facility] 10:17:00 [facility] COMPLETE BLOOD COUNT W/ 2021-11-25 Leyla [facility] DIFFERENTIAL 10:17:00 [facility] SODIUM LEVEL 2021-11-25 [facility] 10:17[facility]00 [facility] POTASSIUM LEVEL 2021-11-25 [facility] 10:17:00 [facility] CHLORIDE LEVEL 2021-11-25 [facility] 10:17:00 [facility] CARBON DIOXIDE LEVEL 2021-11-25 [facility] 10:17:00 [facility] BLOOD UREA NITROGEN 2021-11-25 [facility] 10:17:00 [facility] SERUM CREATININE 2021-11-25 Leyla [facility] exas 10:17:00 [facility] GLUCOSE, RANDOM 2021-11-25 [facility] 10:17[facility]00 [facility] LACTATE DEHYDROGENASE 2021-11-25 Leyla [facility] 10:17:00 [facility] URIC ACID 2021-11-25 [facility] 10:17[facility]00 [facility] Center PHOSPHORUS LEVEL 2021-11-25 [facility] 10:17:00 [facility] FRACTIONATED BILIRUBIN 2021-11-25 [facility] 10:17:00 [facility] ALBUMIN LEVEL 2021-11-25 [facility] 10:17:00 [facility] CALCIUM LEVEL TOTAL 2021-11-25 [facility] [place] 10:17:00 [facility] MAGNESIUM LEVEL 2021-11-25 Leyla [facility] 10:17:00 [facility] ALANINE AMINOTRANSFERASE 2021-11-25 Pablito Mayerroz [facility] 10:17:00 [facility] ASPARTATE AMINOTRANSFERASE 2021-11-25 Pablito Mayerroz [facility] 10:17:00 [facility] ALKALINE PHOSPHATASE 2021-11-25 [facility] 10:17:00 [facility] ABORH 2021-11-25 Severo Munroe [facility] 10:17:00 [facility] ANTIBODY SCREEN 2021-11-25 Severo Munroe [facility] 10:17:00 [facility] Results CBC 2021-11-25 Severo Mnuroe [facility] 10:17:00 [facility] MANUAL DIFFERENTIAL 2021-11-25 Severo Munroe [facility] 10:17:00 [facility] SERUM CREATININE 2021-11-25 Severo Munroe [facility] 10:17:00 [facility] .GLOMERULAR FILTRATION RATE 2021-11-25 Severo Munroe [facility] 10:17:00 [facility] ANION GAP 2021-11-25 Severo Munroe [facility] 10:17:00 [facility] CLOT EXPIRATION DATE 2021-11-25 Severo Munroe [facility] 10:17:00 [facility] TMP INTERPRETATION ANTIBODY 2021-11-25 Severo Munroe [facility] SCREEN NEGATIVE 10:17:00 [facility] COMPLETE BLOOD COUNT W/ 2021-11-24 Pablito Mayerroz [facility] DIFFERENTIAL 09:43:00 [facility] SODIUM LEVEL 2021-11-24 [facility] 09:43:00 [facility] POTASSIUM LEVEL 2021-11-24 Leyla [facility] 09:43:00 [facility] CHLORIDE LEVEL 2021-11-24 [facility] 09:43:00 [facility] Center CARBON DIOXIDE LEVEL 2021-11-24 [facility] 09:43:00 [facility] BLOOD UREA NITROGEN 2021-11-24 [facility] [place] 09:43:00 [facility] Center SERUM CREATININE 2021-11-24 [facility] 09:43:00 [facility] GLUCOSE, RANDOM 2021-11-24 [facility] 09:43:00 [facility] LACTATE DEHYDROGENASE 2021-11-24 [facility] 09:43:00 [facility] URIC ACID 2021-11-24 [facility] 09:43:00 [facility] Center PHOSPHORUS LEVEL 2021-11-24 [facility] 09:43:00 [facility] FRACTIONATED BILIRUBIN 2021-11-24 [facility] 09:43:00 [facility] Center ALBUMIN LEVEL 2021-11-24 [facility] 09:43[facility]00 [facility] CALCIUM LEVEL TOTAL 2021-11-24 [facility] 09:43:00 [facility] Center MAGNESIUM LEVEL 2021-11-24 [facility] 09:43:00 [facility] Center ALANINE AMINOTRANSFERASE 2021-11-24 Pablito Mayerroz [facility] 09:43:00 [facility] Center ASPARTATE AMINOTRANSFERASE 2021-11-24 [facility] 09:43:00 [facility] Center ALKALINE PHOSPHATASE 2021-11-24 [facility] 09:43:00 [facility] Center Results CBC 2021-11-24 Severo Munroe [facility] 09:43:00 [facility] Center MANUAL DIFFERENTIAL 2021-11-24 Severo Munroe [facility] 09:43:00 [facility] SERUM CREATININE 2021-11-24 Severo Munroe [facility] 09:43:00 [facility] .GLOMERULAR FILTRATION RATE 2021-11-24 Severo Munroe [facility] 09:43:00 [facility] ANION GAP 2021-11-24 Severo Munroe [facility] 09:43:00 [facility] IR US GUIDED DRAIN DEEP, 2021-11-23 Lucinda Antoine [facility] NON-ORGAN 59 19:22:00 [facility] ANAEROBIC CULTURE 2021-11-23 [facility] 18:44:00 [facility] AFB CULTURE W/ SMEAR 2021-11-23 [facility] 18:44:00 [facility] FUNGUS CULTURE W/ SMEAR 2021-11-23 [facility] 18:44:00 [facility] WOUND CULTURE W/ GRAM STAIN 2021-11-23 [facility] 18:44:00 [facility] XR SPINE CERVICAL 2 OR 3 VW 2021-11-23 Claudia Boyle [facility] 14:44:27 [facility] COMPLETE BLOOD COUNT W/ 2021-11-23 Pablito Mayerroz [facility] DIFFERENTIAL 10:04:00 [facility] SODIUM LEVEL 2021-11-23 [facility] 10:04:00 [facility] POTASSIUM LEVEL 2021-11-23 Leyla [facility] 10:04:00 [facility] CHLORIDE LEVEL 2021-11-23 Leyla [facility] 10:04:00 [facility] CARBON DIOXIDE LEVEL 2021-11-23 Leyla [facility] 10:04:00 [facility] BLOOD UREA NITROGEN 2021-11-23 [facility] 10:04:00 [facility] SERUM CREATININE 2021-11-23 Leyla [facility]as 10:04:00 [facility] GLUCOSE, RANDOM 2021-11-23 Leyla [facility] 10:04:00 [facility] LACTATE DEHYDROGENASE 2021-11-23 Leyla [facility] 10:04:00 [facility] URIC ACID 2021-11-23 Leyla [facility] 10:04:00 [facility] PHOSPHORUS LEVEL 2021-11-23 Leyla [facility]as 10:04:00 [facility] FRACTIONATED BILIRUBIN 2021-11-23 Leyla [facility] 10:04:00 [facility] ALBUMIN LEVEL 2021-11-23 Leyla [facility] 10:04:00 [facility] CALCIUM LEVEL TOTAL 2021-11-[address] [facility] 10:04:00 [facility] MAGNESIUM LEVEL 2021-11-23 Leyla [facility] 10:04:00 [facility] ALANINE AMINOTRANSFERASE 2021-11-23 Pablito Mayerroz [facility] 10:04:00 [facility] ASPARTATE AMINOTRANSFERASE 2021-11-23 Leyla [facility] 10:04:00 [facility] ALKALINE PHOSPHATASE 2021-11-23 Leyla [facility] 10:04:00 [facility] Results CBC 2021-11-23 Severo Munroe [place] [facility] 10:04:00 [facility] MANUAL DIFFERENTIAL 2021-11-23 Severo Munroe [facility] 10:04:00 [facility] SERUM CREATININE 2021-11-23 Severo Munroe [facility] 10:04:00 [facility] .GLOMERULAR FILTRATION RATE 2021-11-23 Severo Munroe [facility] 10:04:00 [facility] PROTHROMBIN TIME 2021-11-23 [facility] 10:04:00 [facility] APTT 2021-11-23 [facility] [place] 10:04:00 [facility] ANION GAP 2021-11-23 Severo Munroe [place] [facility] [place] 10:04:00 [facility] Center CT ABDOMEN PELVIS W CONTRAST 2021-11-22 Marciano Mayer [facility] 11:54:00 [facility] COMPLETE BLOOD COUNT W/ 2021-11-22 Pablito Mayerroz [facility] DIFFERENTIAL 10:12:00 [facility] Center SODIUM LEVEL 2021-11-22 [facility] [place] 10:12:00 [facility] Center POTASSIUM LEVEL 2021-11-22 [facility] 10:12:00 [facility] Center CHLORIDE LEVEL 2021-11-22 Le[facility] 10:12:00 [facility] Center CARBON DIOXIDE LEVEL 2021-11-22 Leyla [facility] 10:12:00 [facility] BLOOD UREA NITROGEN 2021-11-[address] [facility] [place] 10:12:00 [facility] Center SERUM CREATININE 2021-11-22 Leyla [facility] exas 10:12:00 [facility] GLUCOSE, RANDOM 2021-11-22 Leyla [facility] 10:12:00 [facility] Center LACTATE DEHYDROGENASE 2021-11-22 Leyla [facility] 10:12:00 [facility]IC ACID 2021-11-22 [facility] Center PHOSPHORUS LEVEL 2021-11-22 Leyla [facility] 10:12:00 [facility] Center FRACTIONATED BILIRUBIN 2021-11-22 Leyla [facility] 10:12:00 [facility] Center ALBUMIN LEVEL 2021-11-22 [facility]:12[facility]00 [facility] Center CALCIUM LEVEL TOTAL 2021-11-22 [facility]00 [facility] Center MAGNESIUM LEVEL 2021-11-22 Le[facility] 10:12:00 [facility] Center ALANINE AMINOTRANSFERASE 2021-11-22 Leyla [facility] 10:12:00 [facility] ASPARTATE AMINOTRANSFERASE 2021-11-22 Marciano Mayer [facility] 10:12:00 [facility] ALKALINE PHOSPHATASE 2021-11-22 Pablito Mayerroz [facility] 10:12:00 [facility] TYPE AND SCREEN 2021-11-22 Pablito Mayerroz [facility] 10:12:00 [facility] ABORH 2021-11-22 Severo Munroe [facility] 10:12:00 [facility] ANTIBODY SCREEN 2021-11-22 Severo Munroe [facility] 10:12:00 [facility] Results CBC 2021-11-22 Severo Munroe [facility] 10:12:00 [facility] MANUAL DIFFERENTIAL 2021-11-22 Severo Munroe [facility] 10:12:00 [facility] SERUM CREATININE 2021-11-22 Severo Munroe [facility] 10:12:00 [facility] .GLOMERULAR FILTRATION RATE 2021-11-22 Severo Munroe [facility] 10:12:00 [facility] ANION GAP 2021-11-22 Severo Munroe [facility] 10:12:00 [facility] CLOT EXPIRATION DATE 2021-11-22 Severo Munroe [facility] 10:12:00 [facility] TMP INTERPRETATION ANTIBODY 2021-11-22 Severo Munroe [facility] SCREEN NEGATIVE 10:12:00 [facility] COVID-19 (SARS-COV-2) 2021-11-22 Severo Munroe [facility] ASYMPTOMATIC-LT 03:57:00 [facility] COMPLETE BLOOD COUNT W/ 2021-11-21 Darnell Quick [facility] DIFFERENTIAL 15:41:00 [facility] TOTAL PROTEIN 2021-11-21 Darnell Quick [facility] 15:41:00 [facility] ALBUMIN LEVEL 2021-11-21 Darnell Quick [facility] 15:41:00 [facility] Center CALCIUM LEVEL TOTAL 2021-11-21 Darnell Quick [facility] 15:41:00 [facility] Center PHOSPHORUS LEVEL 2021-11-21 Darnell Quick [facility] ex 15:41:00 [facility] GLUCOSE, RANDOM 2021-11-21 Darnell Quick [facility] xa 15:41:00 [facility] BLOOD UREA NITROGEN 2021-11-21 Darnell Quick [facility] 15:41:00 [facility] SERUM CREATININE 2021-11-21 Darnell Quick [facility] 15:41:00 [facility] Center URIC ACID 2021-11-21 Darnell Quick [facility] xa 15:41:00 [facility] FRACTIONATED BILIRUBIN 2021-11-21 Darnell Quick [facility] 15:41:00 [facility] Center ALKALINE PHOSPHATASE 2021-11-21 Darnell Quick [facility] 15:41:00 [facility] Center LACTATE DEHYDROGENASE 2021-11-21 Darnell Quick [facility] 15:41:00 [facility] Center ALANINE AMINOTRANSFERASE 2021-11-21 Darnell Quick [facility] 15:41:00 [facility] Center MAGNESIUM LEVEL 2021-11-21 Darnell Quick [facility] xa 15:41:00 [facility] ASPARTATE AMINOTRANSFERASE 2021-11-21 Darnell Quick [facility] 15:41:00 [facility] Center ELECTROLYTE PANEL 2021-11-21 Darnell Quick [facility] 15:41:00 [facility] Center TYPE AND SCREEN 2021-11-21 Darnell Quick [facility] xa 15:41:00 [facility] Center Results CBC 2021-11-21 Darnell Quick [facility] xa 15:41:00 [facility] Center MANUAL DIFFERENTIAL 2021-11-21 Darnell Quick [facility] 15:41:00 [facility] Center SERUM CREATININE 2021-11-21 [facility] .GLOMERULAR FILTRATION RATE 2021-11-21 Darnell Quick [facility] 15:41:00 [facility] ABORH 2021-11-21 Darnell Quick [facility] 15:41:00 [facility] ANTIBODY SCREEN 2021-11-21 Darnell Quick [facility] xa 15:41:00 [facility] CLOT EXPIRATION DATE 2021-11-21 Darnell Quick [facility] 15:41:00 [facility] TMP INTERPRETATION ANTIBODY 2021-11-21 Darnell Quick [facility] SCREEN NEGATIVE 15:41:00 [facility] PROTHROMBIN TIME 2021-11-19 Valerie Dill [facility] 17:31:00 [facility] IR DIAGNOSTIC SINOGRAM 60 2021-11-19 Jacklyn Veronica [facility] 16:59:00 [facility] COMPLETE BLOOD COUNT W/ 2021-11-09 Madeline Campbell [facility] DIFFERENTIAL 07:25:00 [facility] SODIUM LEVEL 2021-11-09 Madeline Campbell [place] [facility] 07:25:00 [facility] POTASSIUM LEVEL 2021-11-09 Jorge Luis Campbellelle Margo [facility] 07:25:00 [facility] CHLORIDE LEVEL 2021-11-09 Madeline Campbell [facility] 07:25:00 [facility] CARBON DIOXIDE LEVEL 2021-11-09 Madeline Campbell [facility] 07:25:00 [facility] BLOOD UREA NITROGEN 2021-11-09 Madeline Campbell [facility] 07:25:00 [facility] SERUM CREATININE 2021-11-09 Madeline Campbell [facility] 07:25:00 [facility] GLUCOSE, RANDOM 2021-11-09 Madeline Campbell [place] [facility] [place] 07:25:00 [facility] LACTATE DEHYDROGENASE 2021-11-09 Madeline Campbell [facility] 07:25:00 [facility] URIC ACID 2021-11-09 ShannanJorge Luis wilsonelle Margo [place] [facility] [place] 07:25:00 [facility] PHOSPHORUS LEVEL 2021-11-09 Madeline Campbell [facility] 07:25:00 [facility] FRACTIONATED BILIRUBIN 2021-11-09 Madeline Campbell Unive rsity [facility] 07:25:00 [facility] ALBUMIN LEVEL 2021-11-09 Jorge Luis Campbellelle Margo [place] [facility] [place] 07:25:00 [facility] CALCIUM LEVEL TOTAL 2021-11-09 Madeline Campbell [facility] ty [facility] 07:25:00 [facility] MAGNESIUM LEVEL 2021-11-09 Madeline Campbell [place] [facility] [place] 07:25:00 [facility] ALANINE AMINOTRANSFERASE 2021-11-09 Madeline Campbell Uni versity [facility] 07:25:00 [facility] ASPARTATE AMINOTRANSFERASE 2021-11-09 Madeline Campbell [facility] 07:25:00 [facility] ALKALINE PHOSPHATASE 2021-11-09 Madeline Campbell [facility] 07:25:00 [facility] C REACTIVE PROTEIN 2021-11-09 Madeline Campbell [facility] y [facility] 07:25:00 [facility] Results CBC 2021-11-09 [facility]00 [facility] MANUAL DIFFERENTIAL 2021-11-09 Natalia [facility] 07:25:00 [facility] SERUM CREATININE 2021-11-09 Natalia [facility] 07:25:00 [facility] .GLOMERULAR FILTRATION RATE 2021-11-09 Brett Fisher [facility] 07:25:00 [facility] ANION GAP 2021-11-09 Natalia [facility] 07:25:00 [facility] XR CHEST 2 VW 2021-11-09 Carlee PhillipsAhmed [facility] 03:44:09 A [facility] COMPLETE BLOOD COUNT W/ 2021-11-08 Madeline Campbell [facility] DIFFERENTIAL 06:33:00 [facility] SODIUM LEVEL 2021-11-08 Madeline Campbell [place] [facility] [place] 06:33:00 [facility] POTASSIUM LEVEL 2021-11-08 Madeline Campbell [place] [facility] [place] 06:33:00 [facility] CHLORIDE LEVEL 2021-11-08 Madeline Campbell [place] [facility] [place] 06:33:00 [facility] CARBON DIOXIDE LEVEL 2021-11-08 Madeline Campbell [facility] 06:33:00 [facility] BLOOD UREA NITROGEN 2021-11-08 Madeline Campbell [facility] 06:33:00 [facility] SERUM CREATININE 2021-11-08 Madeline Campbell [facility] 06:33:00 [facility] GLUCOSE, RANDOM 2021-11-08 Madeline Campbell [place] [facility] [place] 06:33:00 [facility] LACTATE DEHYDROGENASE 2021-11-08 Madeline Campbell [facility] [place] [facility] 06:33:00 [facility] URIC ACID 2021-11-08 Madeline Campbell [place] [facility] [place] 06:33:00 [facility] PHOSPHORUS LEVEL 2021-11-08 Madeline Campbell [facility] 06:33:00 [facility] FRACTIONATED BILIRUBIN 2021-11-08 Madeline Campbell [facility] 06:33:00 [facility] ALBUMIN LEVEL 2021-11-08 Madeline Campbell [place] [facility] [place] 06:33:00 [facility] CALCIUM LEVEL TOTAL 2021-11-08 Madeline Campbell [facility] 06:33:00 [facility] MAGNESIUM LEVEL 2021-11-08 Madeline Campbell [place] [facility] [place] 06:33:00 [facility] ALANINE AMINOTRANSFERASE 2021-11-08 Madeline Campbell [facility] 06:33:00 [facility] ASPARTATE AMINOTRANSFERASE 2021-11-08 Madeline Campbell [facility] 06:33:00 [facility] ALKALINE PHOSPHATASE 2021-11-08 Madeline Campbell [facility] 06:33:00 [facility] C REACTIVE PROTEIN 2021-11-08 Madeline Campbell [facility] 06:33:00 [facility] Results CBC 2021-11-08 Natalia [facility] 06:33:00 [facility] MANUAL DIFFERENTIAL 2021-11-08 Natalia [facility] 06:33:00 [facility] SERUM CREATININE 2021-11-08 Natalia [facility] 06:33:00 [facility] .GLOMERULAR FILTRATION RATE 2021-11-08 Brett Fisher [facility] 06:33:00 [facility] ANION GAP 2021-11-08 Natalia [facility] 06:33:00 [facility] COVID-19 (SARS-COV-2) 2021-11-07 Sony Song [facility] PCR-ASYMPTOMATIC [facility] 22:35:00 Luis Antonio Aragon [facility] COMPLETE BLOOD COUNT W/ 2021-11-07 Madeline Campbell [facility] DIFFERENTIAL 08:26:00 [facility] SODIUM LEVEL 2021-11-07 Madeline Campbell [facility] [place] [facility] 08:26:00 [facility] POTASSIUM LEVEL 2021-11-07 Jorge Luis Campbellelle Margo [place] [facility] 08:26:00 [facility] CHLORIDE LEVEL 2021-11-07 [facility] 08:26:00 [facility] CARBON DIOXIDE LEVEL 2021-11-07 Madeline Campbell [facility] 08:26:00 [facility] BLOOD UREA NITROGEN 2021-11-07 Madeline Campbell [facility] 08:26:00 [facility] SERUM CREATININE 2021-11-07 Madeline Campbell [facility] 08:26:00 [facility] GLUCOSE, RANDOM 2021-11-07 Madeline Campbell [place] [facility] [place] 08:26:00 [facility] LACTATE DEHYDROGENASE 2021-11-07 Madeline Campbell [facility] [place] sity [facility] 08:26:00 [facility] URIC ACID 2021-11-07 Madeline Campbell [place] [facility] [place] 08:26:00 [facility] Center PHOSPHORUS LEVEL 2021-11-07 Madeline Campbell [facility] 08:26:00 [facility] Center FRACTIONATED BILIRUBIN 2021-11-07 Madeline Campbell [facility] 08:26:00 [facility] Center ALBUMIN LEVEL 2021-11-07 Madeline Campbell [place] [facility] [place] 08:26:00 [facility] Center CALCIUM LEVEL TOTAL 2021-11-07 Madeline Campbell [facility] 08:26:00 [facility] Center MAGNESIUM LEVEL 2021-11-07 Madeline Campbell [place] [facility] [place] 08:26:00 [facility] Center ALANINE AMINOTRANSFERASE 2021-11-07 Madeline Campbell [facility] 08:26:00 [facility] Center ASPARTATE AMINOTRANSFERASE 2021-11-07 Madeline Campbell [facility] 08:26:00 [facility] Center ALKALINE PHOSPHATASE 2021-11-07 Madeline Campbell [facility] 08:26:00 [facility] TYPE AND SCREEN 2021-11-07 Madeline Campbell [place] [facility] [place] 08:26:00 [facility] Center C REACTIVE PROTEIN 2021-11-07 Madeline Campbell [facility] 08:26:00 [facility] ABORH 2021-11-07 Natalia [facility] 08:26:00 [facility] ANTIBODY SCREEN 2021-11-07 Natalia [facility] 08:26:00 [facility] Results CBC 2021-11-07 Natalia [facility] 08:26:00 [facility] MANUAL DIFFERENTIAL 2021-11-07 Natalia [facility] 08:26:00 [facility] SERUM CREATININE 2021-11-07 Natalia [facility] 08:26:00 [facility] .GLOMERULAR FILTRATION RATE 2021-11-07 Brett Fisher Un [facility] 08:26:00 [facility] ANION GAP 2021-11-07 Natalia [facility] 08:26:00 [facility] TMP INTERPRETATION ANTIBODY 2021-11-07 ClaudypresleyBrett Un [facility] SCREEN NEGATIVE 08:26:00 [facility] CLOT EXPIRATION DATE 2021-11-07 [facility] 08[facility]26:00 [facility] CT ABDOMEN PELVIS W WO 2021-11-[address] [facility] 16:24:00 [facility] COMPLETE BLOOD COUNT W/ 2021-11-06 Madeline Campbell [facility] DIFFERENTIAL 08:22:00 [facility] SODIUM LEVEL 2021-11-06 Madeline Campbell [facility] [place] [facility] 08:22:00 [facility] POTASSIUM LEVEL 2021-11-06 ShannanJorge Luis [facility] 08:22:00 [facility] CHLORIDE LEVEL 2021-11-06 Jorge Luis [facility] 08:22:00 [facility] CARBON DIOXIDE LEVEL 2021-11-06 Madeline Campbell [facility] 08:22:00 [facility] BLOOD UREA NITROGEN 2021-11-06 Madeline Campbell [facility] 08:22:00 [facility] SERUM CREATININE 2021-11-06 Madeline Campbell [facility] 08:22:00 [facility] GLUCOSE, RANDOM 2021-11-06 Madeline Campbell [place] [facility] 08:22:00 [facility] LACTATE DEHYDROGENASE 2021-11-06 Madeline Campbell [facility] 08:22:00 [facility] URIC ACID 2021-11-06 Madeline Campbell [place] [facility] [place] 08:22:00 [facility] Center PHOSPHORUS LEVEL 2021-11-06 Madeline Campbell [facility] 08:22:00 [facility] FRACTIONATED BILIRUBIN 2021-11-06 Madeline Campbell [facility] 08:22:00 [facility] ALBUMIN LEVEL 2021-11-06 Madeline Campbell [place] [facility] [place] 08:22:00 [facility] CALCIUM LEVEL TOTAL 2021-11-06 Madeline Campbell [facility] ty [facility] 08:22:00 [facility] MAGNESIUM LEVEL 2021-11-06 Madeline Campbell [place] [facility] [place] 08:22:00 [facility] ALANINE AMINOTRANSFERASE 2021-11-06 Madeline Campbell [facility] 08:22:00 [facility] ASPARTATE AMINOTRANSFERASE 2021-11-06 Madeline Campbell [facility] 08:22:00 [facility] ALKALINE PHOSPHATASE 2021-11-06 Madeline Campbell [facility] 08:22:00 [facility] C REACTIVE PROTEIN 2021-11-06 Madeline Campbell [facility] 08:22:00 [facility] Results CBC 2021-11-06 Natalia [facility] 08:22:00 [facility] MANUAL DIFFERENTIAL 2021-11-06 [facility] 08:22:00 [facility] SERUM CREATININE 2021-11-06 Natalia [facility] 08:22:00 [facility] [facility] .GLOMERULAR FILTRATION RATE 2021-11-06 [facility]00 [facility] ANION GAP 2021-11-06 Natalia [facility] 08:22:00 [facility] COMPLETE BLOOD COUNT W/ 2021-11-05 Madeline Campbell [facility] DIFFERENTIAL 08:18:00 [facility] SODIUM LEVEL 2021-11-05 Madeline Campbell [facility] [place] [facility] [place] 08:18:00 [facility] POTASSIUM LEVEL 2021-11-05 Madeline Campbell [place] [facility] [place] 08:18:00 [facility] Center CHLORIDE LEVEL 2021-11-05 Madeline Campbell [place] [facility] [place] 08:18:00 [facility] CARBON DIOXIDE LEVEL 2021-11-05 Madeline Campbell [facility] 08:18:00 [facility] BLOOD UREA NITROGEN 2021-11-05 Madeline Campbell [facility] 08:18:00 [facility] SERUM CREATININE 2021-11-05 Madeline Campbell [facility] 08:18:00 [facility] GLUCOSE, RANDOM 2021-11-05 Madeline Campbell [facility] [place] 08:18:00 [facility] LACTATE DEHYDROGENASE 2021-11-05 Madeline Campbell [facility] 08:18:00 [facility] URIC ACID 2021-11-05 Madeline Campbell [facility] [place] [facility] [place] 08:18:00 [facility] Center PHOSPHORUS LEVEL 2021-11-05 Madeline Campbell [facility] 08:18:00 [facility] FRACTIONATED BILIRUBIN 2021-11-05 Madeline Campbell [facility] 08:18:00 [facility] ALBUMIN LEVEL 2021-11-05 Madeline Campbell [facility] [place] 08:18:00 [facility] CALCIUM LEVEL TOTAL 2021-11-05 Madeline Campbell [facility] 08:18:00 [facility] Center MAGNESIUM LEVEL 2021-11-05 Madeline Campbell [facility] [place] [facility] [place] 08:18:00 [facility] ALANINE AMINOTRANSFERASE 2021-11-05 Mad[facility] Campbell [facility] 08:18:00 [facility] ASPARTATE AMINOTRANSFERASE 2021-11-05 [facility] 08:18[facility]00 [facility] Center ALKALINE PHOSPHATASE 2021-11-05 Madeline Campbell [facility] 08:18:00 [facility] C REACTIVE PROTEIN 2021-11-05 Madeline Campbell [facility] 08:18:00 [facility] Results CBC 2021-11-05 Natalia [facility] 08:18:00 [facility] MANUAL DIFFERENTIAL 2021-11-05 Natalia [facility] 08:18:00 [facility] SERUM CREATININE 2021-11-05 Natalia [facility] 08:18:00 [facility] .GLOMERULAR FILTRATION RATE 2021-11-05 Brett Fisher [facility] 08:18:00 [facility] ANION GAP 2021-11-05 [facility] 08:18:00 [facility] COMPLETE BLOOD COUNT W/ 2021-11-04 Madeline Campbell [facility] DIFFERENTIAL 08:54:00 [facility] SODIUM LEVEL 2021-11-04 Madeline Campbell [facility] [place] [facility] [place] 08:54:00 [facility] POTASSIUM LEVEL 2021-11-04 Madeline Campbell [facility] [place] [facility] [place] 08:54:00 [facility] CHLORIDE LEVEL 2021-11-04 Jorge Luis Campbellelle Margo [place] [facility] [place] 08:54:00 [facility] CARBON DIOXIDE LEVEL 2021-11-04 Madeline Campbell [facility] 08:54:00 [facility] BLOOD UREA NITROGEN 2021-11-04 Madeline Campbell [facility] 08:54:00 [facility] SERUM CREATININE 2021-11-04 Madeline Campbell [facility] 08:54:00 [facility] GLUCOSE, RANDOM 2021-11-04 Madeline Campbell [facility] [place] [facility] [place] 08:54:00 [facility] LACTATE DEHYDROGENASE 2021-11-04 Madeline Campbell [facility] 08:54:00 [facility] URIC ACID 2021-11-04 Jorge Luis Campbellelle Margo [place] [facility] [place] 08:54:00 [facility] PHOSPHORUS LEVEL 2021-11-04 Madeline Campbell [facility] 08:54:00 [facility] Center FRACTIONATED BILIRUBIN 2021-11-04 Madeline Campbell [facility] 08:54:00 [facility] Center ALBUMIN LEVEL 2021-11-04 Madeline Campbell [place] [facility] [place] 08:54:00 [facility] Center CALCIUM LEVEL TOTAL 2021-11-04 [facility] 08:54:00 [facility] Center MAGNESIUM LEVEL 2021-11-04 Madeline Campbell [facility] [place] [facility] [place] 08:54:00 [facility] ALANINE AMINOTRANSFERASE 2021-11-04 Madeline Campbell [facility] [place] 08:54:00 [facility] ASPARTATE AMINOTRANSFERASE 2021-11-04 Madeline Campbell [facility] 08:54:00 [facility] ALKALINE PHOSPHATASE 2021-11-04 Madeline Campbell [facility] 08:54:00 [facility] Center TYPE AND SCREEN 2021-11-04 Madeline Campbell [place] [facility] [place] 08:54:00 [facility] Center C REACTIVE PROTEIN 2021-11-04 Madeline Campbell [facility] 08:54:00 [facility] Center ABORH 2021-11-04 Natalia [facility] 08:54:00 [facility] ANTIBODY SCREEN 2021-11-04 Natalia [facility] 08:54:00 [facility] Results CBC 2021-11-04 Natalia [facility] 08[facility]54:00 [facility] Center MANUAL DIFFERENTIAL 2021-11-04 Natalia [facility] 08:54:00 [facility] SERUM CREATININE 2021-11-04 Natalia [facility] 08:54:00 [facility] .GLOMERULAR FILTRATION RATE 2021-11-04 Brett Fisher [facility] 08:54:00 [facility] Center ANION GAP 2021-11-04 Natalia [facility] 08:54:00 MD Esdras C[facility] er Center CLOT EXPIRATION DATE 2021-11-04 Brett Fisher [facility] 08:54:00 [facility] TMP INTERPRETATION ANTIBODY 2021-11-04 [facility] SCREEN NEGATIVE 08:54:00 [facility] COMPLETE BLOOD COUNT W/ 2021-11-03 Madeline Campbell [facility] DIFFERENTIAL 09:11:00 [facility] SODIUM LEVEL 2021-11-03 Madeline Campbell [facility] [place] [facility] [place] 09:11:00 [facility] POTASSIUM LEVEL 2021-11-03 Madeline Campbell [place] [facility] [place] 09:11:00 [facility] CHLORIDE LEVEL 2021-11-03 Madeline Campbell [place] [facility] [place] 09:11:00 [facility] CARBON DIOXIDE LEVEL 2021-11-03 Madeline Campbell [facility] 09:11:00 [facility] BLOOD UREA NITROGEN 2021-11-03 Madeline Campbell [facility] 09:11:00 [facility] SERUM CREATININE 2021-11-03 Madeline Campbell [facility] 09:11:00 [facility] GLUCOSE, RANDOM 2021-11-03 Madeline Campbell [facility] [place] [facility] [place] 09:11:00 [facility] LACTATE DEHYDROGENASE 2021-11-03 Madeline Campbell [facility] 09:11:00 [facility] URIC ACID 2021-11-03 Madeline Campbell [facility] [place] [facility] [place] 09:11:00 [facility] PHOSPHORUS LEVEL 2021-11-03 Madeline Campbell [facility] 09:11:00 [facility] FRACTIONATED BILIRUBIN 2021-11-03 Madeline Campbell [facility] 09:11:00 [facility] ALBUMIN LEVEL 2021-11-03 Madeline Campbell [facility] [facility] [place] 09:11:00 [facility] CALCIUM LEVEL TOTAL 2021-11-03 Madeline Campbell [facility] 09:11:00 [facility] MAGNESIUM LEVEL 2021-11-03 Madeline Campbell [facility] [place] [facility] [place] 09:11:00 [facility] ALANINE AMINOTRANSFERASE 2021-11-03 Madeline Campbell [facility] 09:11:00 [facility] ASPARTATE AMINOTRANSFERASE 2021-11-03 Madeline Campbell [facility] 09:11:00 [facility] ALKALINE PHOSPHATASE 2021-11-03 Madeline Campbell [facility] 09:11:00 [facility] C REACTIVE PROTEIN 2021-11-03 Madeline Campbell [facility] 09:11:00 [facility] Results CBC 2021-11-03 [facility] 09[facility]11:00 [facility] MANUAL DIFFERENTIAL 2021-11-03 [facility] 09:11:00 [facility] SERUM CREATININE 2021-11-03 [facility] 09:11:00 [facility] .GLOMERULAR FILTRATION RATE 2021-11-03 Brett Fisher [facility] 09:11:00 [facility] ANION GAP 2021-11-03 [facility] 09:11:00 [facility] COMPLETE BLOOD COUNT W/ 2021-11-02 Madeline Campbell [facility] DIFFERENTIAL 08:12:00 [facility] SODIUM LEVEL 2021-11-02 Madeline Campbell [facility] [place] 08:12:00 [facility] POTASSIUM LEVEL 2021-11-02 Madeline Campbell [facility] [place] 08:12:00 [facility] CHLORIDE LEVEL 2021-11-02 Jorge Luis Campbellelle Margo [place] [facility] 08:12:00 [facility] CARBON DIOXIDE LEVEL 2021-11-02 Madeline Campbell [facility] 08:12:00 [facility] BLOOD UREA NITROGEN 2021-11-02 Madeline Campbell [facility] 08:12:00 [facility] SERUM CREATININE 2021-11-02 Madeline Campbell [facility] 08:12:00 [facility] GLUCOSE, RANDOM 2021-11-02 Madeline Campbell [facility] [facility] [place] 08:12:00 [facility] LACTATE DEHYDROGENASE 2021-11-02 Madeline Campbell [facility] 08:12:00 [facility] URIC ACID 2021-11-02 Jorge Luis Campbellelle Margo [place] [facility] [place] 08:12:00 [facility] PHOSPHORUS LEVEL 2021-11-02 Madeline Campbell [facility] 08:12:00 [facility] FRACTIONATED BILIRUBIN 2021-11-02 Madeline Campbell [facility] 08:12:00 [facility] ALBUMIN LEVEL 2021-11-02 Madeline Campbell [facility] [place] [facility] [place] 08:12:00 [facility] CALCIUM LEVEL TOTAL 2021-11-02 Madeline Campbell [facility] ty [facility] 08:12:00 [facility] MAGNESIUM LEVEL 2021-11-02 Madeline Campbell [facility] [place] [facility] [place] 08:12:00 [facility] ALANINE AMINOTRANSFERASE 2021-11-02 Madeline Campbell [facility] 08:12:00 [facility] ASPARTATE AMINOTRANSFERASE 2021-11-02 [facility] 08:12:00 [facility] ALKALINE PHOSPHATASE 2021-11-02 Madeline Campbell [facility] 08:12:00 [facility] C REACTIVE PROTEIN 2021-11-02 Madeline Campbell [facility] y [facility] 08:12:00 [facility] Results CBC 2021-11-02 [facility] [place] 08[facility]12:00 [facility] MANUAL DIFFERENTIAL 2021-11-02 [facility] [place] 08:12:00 [facility] SERUM CREATININE 2021-11-02 [facility] [place] 08:12:00 [facility] .GLOMERULAR FILTRATION RATE 2021-11-02 Atiya Smallwood [facility] 08:12:00 [facility] ANION GAP 2021-11-02 [facility] 08:12[facility]00 [facility] SURGICAL LAPAROSCOPY WITH 2021-11-01 Brett Fisher [facility] COLOSTOMY 19:59:00 [facility] COMPLETE BLOOD COUNT W/ 2021-11-01 Madeline Campbell [facility] DIFFERENTIAL 09:42:00 [facility] SODIUM LEVEL 2021-11-01 Madeline Campbell [facility] [place] [facility] [place] 09:42:00 [facility] POTASSIUM LEVEL 2021-11-01 ShannanJorge Luis wilsonelle Margo [place] [facility] [place] 09:42:00 [facility] CHLORIDE LEVEL 2021-11-01 ShannanMadeline wilson [facility] [place] 09:42:00 [facility] CARBON DIOXIDE LEVEL 2021-11-01 Madeline Campbell [facility] 09:42:00 [facility] BLOOD UREA NITROGEN 2021-11-01 Madeline Campbell [facility] ty [facility] 09:42:00 [facility] SERUM CREATININE 2021-11-01 Madeline Campbell [facility] 09:42:00 [facility] GLUCOSE, RANDOM 2021-11-01 Madeline Campbell [facility] [place] [facility] [place] 09:42:00 [facility] LACTATE DEHYDROGENASE 2021-11-01 Madeline Campbell [facility] 09:42:00 [facility] URIC ACID 2021-11-01 Madeline Campbell [facility] [place] [facility] [place] 09:42:00 [facility] PHOSPHORUS LEVEL 2021-11-01 Madeline Campbell [facility] 09:42:00 [facility] FRACTIONATED BILIRUBIN 2021-11-01 Madeline Campbell [facility] 09:42:00 [facility] ALBUMIN LEVEL 2021-11-01 Madeline Campbell [facility] [place] [place] 09:42:00 [facility] CALCIUM LEVEL TOTAL 2021-11-01 Madeline Campbell [facility] 09:42:00 [facility] MAGNESIUM LEVEL 2021-11-01 [facility] [place] 09:42:00 [facility] ALANINE AMINOTRANSFERASE 2021-11-01 Madeline Campbell [facility] [place] 09:42:00 [facility] ASPARTATE AMINOTRANSFERASE 2021-11-01 [facility]fordMadeline wilson [facility] [place] 09:42:00 [facility] ALKALINE PHOSPHATASE 2021-11-01 [place] [facility] 09[facility]42:00 [facility] TYPE AND SCREEN 2021-11-01 [facility] [place] 09:42:00 [facility] C REACTIVE PROTEIN 2021-11-01 [place] [facility] 09:42:00 [facility] ABORH 2021-11-01 [facility] [place] 09:42:00 [facility] ANTIBODY SCREEN 2021-11-01 [facility] 09:42:00 [facility] Results CBC 2021-11-01 [facility] 09:42:00 [facility] MANUAL DIFFERENTIAL 2021-11-01 [facility] [place] 09:42:00 [facility] SERUM CREATININE 2021-11-01 [facility] [place] 09:42:00 [facility] .GLOMERULAR FILTRATION RATE 2021-11-01 [facility] 09[facility]42:00 [facility] ANION GAP 2021-11-01 [facility] [place] 09:42:00 [facility] CLOT EXPIRATION DATE 2021-11-01 [facility] 09:42:00 [facility] TMP INTERPRETATION ANTIBODY 2021-11-01 [facility] SCREEN NEGATIVE 09:42:00 [facility] IMMUNOGLOBULIN G SERUM 2021-10-31 Darnell Quick [facility] 15:57:00 [facility] COMPLETE BLOOD COUNT W/ 2021-10-31 Shannan, [facility] [place] DIFFERENTIAL 10:31:00 [facility] SODIUM LEVEL 2021-10-31 Madeline Campbell [place] [facility] [place] 10:31:00 [facility] POTASSIUM LEVEL 2021-10-31 Madeline Campbell [facility] [place] [facility] [place] 10:31:00 [facility] Center CHLORIDE LEVEL 2021-10-31 Madeline Campbell [place] [facility] [place] 10:31:00 [facility] Center CARBON DIOXIDE LEVEL 2021-10-31 Madeline Campbell [facility] 10:31:00 [facility] BLOOD UREA NITROGEN 2021-10-31 Madeline Campbell [facility] 10:31:00 [facility] SERUM CREATININE 2021-10-31 Madeline Campbell [facility] 10:31:00 [facility] GLUCOSE, RANDOM 2021-10-31 Madeline Campbell [facility] [place] [facility] [place] 10:31:00 [facility] LACTATE DEHYDROGENASE 2021-10-31 Madeline Campbell [facility] 10:31:00 [facility] URIC ACID 2021-10-31 Madeline Campbell [facility] [place] [facility] [place] 10:31:00 [facility] Center PHOSPHORUS LEVEL 2021-10-31 Madeline Campbell [facility] 10:31:00 [facility] FRACTIONATED BILIRUBIN 2021-10-31 Madeline Campbell [facility] 10:31:00 [facility] Center ALBUMIN LEVEL 2021-10-31 Madeline Campbell [place] [facility] [place] 10:31:00 [facility] Center CALCIUM LEVEL TOTAL 2021-10-31 Madeline Campbell [facility] 10:31:00 [facility] Center MAGNESIUM LEVEL 2021-10-31 Madeline Campbell [place] [facility] [place] 10:31:00 [facility] ALANINE AMINOTRANSFERASE 2021-10-31 Madeline Campbell [facility] 10:31:00 [facility] Center ASPARTATE AMINOTRANSFERASE 2021-10-31 [facility] 10:31:00 [facility] ALKALINE PHOSPHATASE 2021-10-31 Madeline Campbell [facility] 10:31:00 [facility] C REACTIVE PROTEIN 2021-10-31 Madeline Campbell [facility] 10:31:00 [facility] Results CBC 2021-10-31 [facility] [place] 10[facility]31:00 [facility] MANUAL DIFFERENTIAL 2021-10-31 [facility] [place] 10:31:00 [facility] SERUM CREATININE 2021-10-31 [facility] 10:31:00 [facility] .GLOMERULAR FILTRATION RATE 2021-10-31 [facility] 10[facility]31:00 [facility] ANION GAP 2021-10-31 [facility] 10:31:00 [facility] GENERAL LABORATORY ADD ON 2021-10-30 Nikki Martinez [facility] TEST 16[facility]35:00 [facility] URINALYSIS MICROSCOPIC 2021-10-30 Darnell Quick [facility] 16:19:00 [facility] URINALYSIS WITH MICROSCOPIC 2021-10-30 Darnell Quick [facility] IF INDICATED 16:19:00 [facility] (formerly [facility]) URINE CULTURE 2021-10-30 Darnell Quick [facility] xas 16:19:00 [facility] (formerly [facility]) COMPLETE BLOOD COUNT W/ 2021-10-30 Madeline Campbell [facility] DIFFERENTIAL 09:15:00 [facility] (formerly [facility]) SODIUM LEVEL 2021-10-30 Madeline Campbell [place] [facility] [place] 09:15:00 [facility] (formerly [facility]) POTASSIUM LEVEL 2021-10-30 StratfordJorge Luis wilsonelle Margo [place] 09:15:00 [facility] (formerly [facility]) CHLORIDE LEVEL 2021-10-30 [facility]Jorge [facility] [place] 09:15:00 [facility] (formerly [facility]) CARBON DIOXIDE LEVEL 2021-10-30 ShannanMadeline wilson [facility] 09:15:00 [facility] (formerly [facility]) BLOOD UREA NITROGEN 2021-10-30 Madeline Campbell [facility] 09:15:00 [facility] (formerly [facility]) SERUM CREATININE 2021-10-30 Madeline Campbell [facility] 09:15:00 [facility] (formerly [facility]) GLUCOSE, RANDOM 2021-10-30 Jorge Luis Campbellelle Margo [place] [facility] [place] 09:15:00 [facility] (formerly [facility]) LACTATE DEHYDROGENASE 2021-10-30 Madeline Campbell [facility] 09:15:00 [facility] (formerly [facility]) URIC ACID 2021-10-30 Jorge Luis Campbellelle Margo [place] 09:15:00 [facility] (formerly [facility]) PHOSPHORUS LEVEL 2021-10-30 Madeline Campbell [facility] 09:15:00 [facility] (formerly [facility]) FRACTIONATED BILIRUBIN 2021-10-30 Madeline Campbell [facility] 09:15:00 [facility] (formerly [facility]) ALBUMIN LEVEL 2021-10-30 Madeline Campbell [place] [facility] [place] 09:15:00 [facility] (formerly [facility]) CALCIUM LEVEL TOTAL 2021-10-30 Madeline Campbell [facility] 09:15:00 [facility] (formerly [facility]) MAGNESIUM LEVEL 2021-10-30 Madeline Campbell [place] [facility] [place] 09:15:00 [facility] (formerly [facility]) ALANINE AMINOTRANSFERASE 2021-10-30 Madeline Campbell [facility] [place] 09:15:00 [facility] (formerly [facility]) ASPARTATE AMINOTRANSFERASE 2021-10-30 Mad[facility] [place] 09:15:00 [facility] (formerly [facility]) ALKALINE PHOSPHATASE 2021-10-30 Madeline Campbell [facility] [place] [facility] 09[facility]15[facility]00 [facility] (formerly [facility]) Results CBC 2021-10-30 Cl [facility] [place] 09:15:00 [facility] Center MANUAL DIFFERENTIAL 2021-10-30 Cl [facility] [place] 09:15:00 [facility] (formerly [facility]) SERUM CREATININE 2021-10-30 [facility] [place] 09:15:00 [facility] (formerly [facility]) .GLOMERULAR FILTRATION RATE 2021-10-30 Atiya Smallwood [facility] 09:15:00 [facility] (formerly [facility]) ANION GAP 2021-10-30 Cl [facility] xas 09:15:00 [facility] (formerly [facility]) C REACTIVE PROTEIN 2021-10-30 Cl [facility] [address] 09:15:00 [facility] (formerly [facility]) COVID-19 (SARS-COV-2) 2021-10-29 Yodit Colunga [facility] PCR-ASYMPTOMATIC MC 12:53:00 [facility] COMPLETE BLOOD COUNT W/ 2021-10-29 Madeline Campbell [facility] DIFFERENTIAL 10:30:00 [facility] (formerly [facility]) SODIUM LEVEL 2021-10-29 Madeline Campbell [place] [facility] [place] 10:30:00 [facility] (formerly [facility]) POTASSIUM LEVEL 2021-10-29 Madeline Campbell [place] 10:30:00 [facility] (formerly [facility]) CHLORIDE LEVEL 2021-10-29 Madeline Campbell [place] [facility] [place] 10:30:00 [facility] (formerly [facility]) CARBON DIOXIDE LEVEL 2021-10-29 Madeline Campbell [facility] 10:30:00 [facility] (formerly [facility]) BLOOD UREA NITROGEN 2021-10-29 Madeline Campbell [facility] 10:30:00 [facility] (formerly [facility]) SERUM CREATININE 2021-10-29 Madeline Campbell [facility] 10:30:00 [facility] (formerly [facility]) GLUCOSE, RANDOM 2021-10-29 Madeline Campbell [place] [facility] [place] 10:30:00 [facility] (formerly [facility]) LACTATE DEHYDROGENASE 2021-10-29 Madeline Campbell [facility] 10:30:00 [facility] (formerly [facility]) URIC ACID 2021-10-29 Madeline Campbell [place] [facility] [place] 10:30:00 [facility] ([facility]) PHOSPHORUS LEVEL 2021-10-29 Madeline Campbell [facility] 10:30:00 [facility] (formerly [facility]) FRACTIONATED BILIRUBIN 2021-10-29 Madeline Campbell [facility] 10:30:00 [facility] (formerly [facility]) ALBUMIN LEVEL 2021-10-29 [facility] [place] 10:30:00 [facility]) CALCIUM LEVEL TOTAL 2021-10-29 [facility] 10:30[facility]00 [facility] ([facility]) MAGNESIUM LEVEL 2021-10-29 [facility] [place] 10:30:00 [facility] (formerly [facility]) ALANINE AMINOTRANSFERASE 2021-10-29 StratfordMadeline [facility] 10:30:00 [facility] ([facility]) ASPARTATE AMINOTRANSFERASE 2021-10-29 [place] Madeline Margo [facility] 10:30:00 [facility] (formerly [facility]) ALKALINE PHOSPHATASE 2021-10-29 [facility] 10:30:00 [facility] (formerly [facility]) TYPE AND SCREEN 2021-10-29 [facility] Margo [place] 10:30:00 [facility] (formerly [facility]) ABORH 2021-10-29 [facility] xas 10:30:00 [facility] (formerly [facility]) ANTIBODY SCREEN 2021-10-29 [facility] [place] 10:30:00 [facility] (formerly [facility]) Results CBC 2021-10-29 [facility] xa 10:30:00 [facility] (formerly [facility]) MANUAL DIFFERENTIAL 2021-10-29 [facility] [place] 10:30:00 [facility] ([facility]) SERUM CREATININE 2021-10-29 [facility] [place] 10:30:00 [facility] ([facility]) .GLOMERULAR FILTRATION RATE 2021-10-29 [facility] 10:30:00 [facility] ([facility]) ANION GAP 2021-10-29 [facility] [place] 10:30:00 [facility] ([facility]) TMP INTERPRETATION ANTIBODY 2021-10-29 [facility] SCREEN NEGATIVE 10:30:00 [facility] (formerly [facility]) CLOT EXPIRATION DATE 2021-10-29 [facility] 10:30:00 [facility] (formerly [facility]) BASIC METABOLIC PANEL, 2021-10-28 Chrissy San [facility] CALCIUM TOTAL 15:56:00 [facility] (formerly [facility]) GLUCOSE LEVEL 2021-10-28 Chrissy San [facility] 15:56:00 [facility] (formerly [facility]) ELECTROLYTE PANEL 2021-10-28 Chrissy San [facility] 15:56:00 [facility] (formerly [facility]) SERUM CREATININE 2021-10-28 Chrissy San [facility] 15:56:00 [facility] (formerly [facility]) .GLOMERULAR FILTRATION RATE 2021-10-28 Chrissy San [facility] 15:56:00 [facility] (formerly [facility]) CALCIUM LEVEL TOTAL 2021-10-28 Chrissy San [facility] 15:56:00 [facility] (formerly [facility]) BLOOD UREA NITROGEN 2021-10-28 Chrissy San [facility] 15:56:00 [facility] (formerly [facility]) COMPLETE BLOOD COUNT W/ 2021-10-28 Madeline Campbell [facility] DIFFERENTIAL 10:48:00 [facility] (formerly [facility]) SODIUM LEVEL 2021-10-28 Madeline Campbell [place] [facility] 10:48:00 [facility] (formerly [facility]) POTASSIUM LEVEL 2021-10-28 StratfordJorge LuisMadeline Margo [facility] 10:48:00 [facility] (formerly [facility]) CHLORIDE LEVEL 2021-10-28 Jorge Luis Campbellelle Margo [facility] 10:48:00 [facility] (formerly [facility]) CARBON DIOXIDE LEVEL 2021-10-28 Madeline Campbell [facility] 10:48:00 [facility] (formerly [facility]) BLOOD UREA NITROGEN 2021-10-28 Madeline Campbell [facility] 10:48:00 [facility] (formerly [facility]) SERUM CREATININE 2021-10-28 Madeline Campbell [facility] 10:48:00 [facility] ([facility]) GLUCOSE, RANDOM 2021-10-28 Madeline Campbell [place] [facility] [place] 10:48:00 [facility] ([facility]) LACTATE DEHYDROGENASE 2021-10-28 Madeline Campbell [facility] 10:48:00 [facility] ([facility]) URIC ACID 2021-10-28 Madeline Campbell [place] [facility] [place] 10:48:00 [facility] ([facility]) PHOSPHORUS LEVEL 2021-10-28 Madeline Campbell [facility] 10:48:00 [facility] ([facility]) FRACTIONATED BILIRUBIN 2021-10-28 Madeline Campbell [facility] 10:48:00 [facility] ([facility]) ALBUMIN LEVEL 2021-10-28 Jorge Luis Campbellelle Margo [place] [facility] [place] 10:48:00 [facility] ([facility]) CALCIUM LEVEL TOTAL 2021-10-28 [facility] [place] [facility] 10:48:00 [facility]) MAGNESIUM LEVEL 2021-10-28 StratfordJorge Luis wilsonelle Margo [place] [facility] [place] 10:48:00 [facility] ([facility]) ALANINE AMINOTRANSFERASE 2021-10-28 Madeline Campbell [facility] 10:48:00 [facility]) ASPARTATE AMINOTRANSFERASE 2021-10-28 Madeline Campbell [facility] 10:48:00 [facility]) ALKALINE PHOSPHATASE 2021-10-28 Madeline Campbell [facility] 10:48:00 [facility]) Results CBC 2021-10-28 [facility] [place] 10:48:00 [facility]) MANUAL DIFFERENTIAL 2021-10-28 [facility] [place] 10:48:00 [facility] ([facility]) SERUM CREATININE 2021-10-28 [facility] [place] 10:48:00 [facility]) .GLOMERULAR FILTRATION RATE 2021-10-28 [facility] 10[facility]48[facility]00 [facility]) ANION GAP 2021-10-28 [facility] [place] 10:48:00 [facility] ([facility]) COMPLETE BLOOD COUNT W/ 2021-10-27 StratfordMadeline wilson [facility] DIFFERENTIAL 06:43:00 [facility] ([facility]) SODIUM LEVEL 2021-10-27 Jorge Luis Campbellelle Margo [place] 06:43:00 [facility] ([facility]) POTASSIUM LEVEL 2021-10-27 StratfordJorge Luis wilsonelle Margo [place] 06:43:00 [facility] ([facility]) CHLORIDE LEVEL 2021-10-27 Madeline Campbell [place] [facility] [place] 06:43:00 [facility] Center CARBON DIOXIDE LEVEL 2021-10-27 Madeline Campbell [facility] 06:43:00 [facility]) BLOOD UREA NITROGEN 2021-10-27 Madeline Campbell [facility] 06:43:00 [facility] ([facility]) SERUM CREATININE 2021-10-27 Madeline Campbell [facility] 06:43:00 [facility]) GLUCOSE, RANDOM 2021-10-27 Madeline Campbell [place] 06:43:00 [facility]) LACTATE DEHYDROGENASE 2021-10-27 Madeline Campbell [facility] [place] [facility] 06:43:00 [facility]) URIC ACID 2021-10-27 Madeline Campbell [place] [facility] [place] 06:43:00 [facility] Center PHOSPHORUS LEVEL 2021-10-27 Madeline Campbell [facility] 06:43:00 [facility]) FRACTIONATED BILIRUBIN 2021-10-27 Madeline Campbell [facility] 06:43:00 [facility]) ALBUMIN LEVEL 2021-10-27 Madeline Campbell [place] 06:43:00 [facility] Center CALCIUM LEVEL TOTAL 2021-10-27 Madeline Campbell [facility] 06:43:00 [facility] Center MAGNESIUM LEVEL 2021-10-27 Madeline Campbell [place] [facility] [place] 06:43:00 [facility] Center ALANINE AMINOTRANSFERASE 2021-10-27 Madeline Campbell [facility] 06:43:00 [facility] Center ASPARTATE AMINOTRANSFERASE 2021-10-27 Madeline Campbell [facility] 06:43:00 [facility] Center ALKALINE PHOSPHATASE 2021-10-27 Madeline Campbell [facility] 06:43:00 [facility] Center Results CBC 2021-10-27 Cl [facility] [place] 06:43:00 [facility] Center MANUAL DIFFERENTIAL 2021-10-27 [facility] [place] 06:43:00 [facility] SERUM CREATININE 2021-10-27 [facility] .[facility]OMERULAR [facility]TR[facility] RATE [facility]00 [facility] ANION GAP 2021-10-27 [facility] 06:[facility]00 [facility] BODY FLUID CRYSTALS 2021-10-26 Jabari Nelson [facility] 23:48:00 [facility]) CELL COUNT BODY FLUID 2021-10-26 Jabari Nelson [facility] 23:48:00 [facility]) BODY FLUID CULTURE 2021-10-26 Jabari Nelson [facility] 23:48:00 [facility]) BODY FLUID CRYSTALS W/ PATH 2021-10-26 Jabari Nelson [facility] REVIEW 23:48:00 [facility]) BODY FLUID CRYSTALS PATH 2021-10-26 Jabari Nelson [facility] REVIEW 23:48:00 [facility]) FUNGUS CULTURE W/ SMEAR 2021-10-26 Jabari Nelson [facility] 23:48:00 [facility] XR KNEE 1 OR 2 VIEWS [facility] 21:54[facility]33 [facility] COMPLETE BLOOD COUNT W/ 2021-10-26 ShannanMadeline wilson [facility] DIFFERENTIAL 09:35:00 [facility] SODIUM LEVEL 2021-10-26 Madeline Campbell [place] [facility] 09:35:00 [facility]) POTASSIUM LEVEL 2021-10-26 [facility]anJorge Luis [facility] [place] 09:35:00 [facility]) CHLORIDE LEVEL 2021-10-26 [facility]Jorge [facility] [place] 09:35:00 [facility]) CARBON DIOXIDE LEVEL 2021-10-26 StratfordMadeline wilson [facility] 09:35:00 [facility]) BLOOD UREA NITROGEN 2021-10-26 Madeline Campbell [facility] 09:35:00 [facility]) SERUM CREATININE 2021-10-26 Madeline Campbell [facility] 09:35:00 [facility]) GLUCOSE, RANDOM 2021-10-26 Madeline Campbell [place] [facility] [place] 09:35:00 [facility]) LACTATE DEHYDROGENASE 2021-10-26 Madeline Campbell [facility] 09:35:00 [facility]) URIC ACID 2021-10-26 Madeline Campbell [place] [facility] [place] 09:35:00 [facility]) PHOSPHORUS LEVEL 2021-10-26 Madeline Campbell [facility] 09:35:00 [facility]) FRACTIONATED BILIRUBIN 2021-10-26 Madeline Campbell [facility] 09:35:00 [facility]) ALBUMIN LEVEL 2021-10-26 Madeline Campbell [place] [facility] [place] 09:35:00 [facility]) CALCIUM LEVEL TOTAL 2021-10-26 Madeline Campbell [facility] 09:35:00 [facility]) MAGNESIUM LEVEL 2021-10-26 Madeline Campbell [place] [facility] [place] 09:35:00 [facility]) ALANINE AMINOTRANSFERASE 2021-10-26 Madeline Campbell [facility] [place] 09:35:00 [facility] ASPARTATE AMINOTRANSFERASE 2021-10-26 Madeline [facility] [place] 09:35:00 [facility]) ALKALINE PHOSPHATASE 2021-10-26 Madeline Campbell [facility] 09:35:00 [facility] Center TYPE AND SCREEN 2021-10-26 Madeline Campbell [place] 09:35:00 [facility] ABORH 2021-10-26 [facility] [place] 09:35:00 [facility] ANTIBODY SCREEN 2021-10-26 Cl [facility] [place] 09:35:00 [facility] Results CBC 2021[facility] MANUAL DIFFERENTIAL 2021-10-26 [facility] [place] 09:35:00 [facility]) SERUM CREATININE 2021-10-26 [facility] 09:[facility]00 [facility]) .GLOMERULAR FILTRATION RATE 2021-10-26 [facility] 09:35:00 [facility] ANION GAP 2021-10-26 [facility] 09:35:00 [facility] TMP INTERPRETATION ANTIBODY 2021-10-26 [facility] SCREEN NEGATIVE 09:35:00 [facility] CLOT EXPIRATION DATE 2021-10-26 [facility] 09:35:00 [facility] COMPLETE BLOOD COUNT W/ 2021-10-25 Madeline Campbell [facility] DIFFERENTIAL 11:15:00 [facility]) SODIUM LEVEL 2021-10-25 [facility]anJorge Luis [facility]Con[facility] 11:15:00 [facility] POTASSIUM LEVEL 2021-10-25 [place] [facility] 11:15:00 [facility] CHLORIDE LEVEL 2021-10-25 [facility] 11[facility]15:00 [facility] CARBON DIOXIDE LEVEL 2021-10-25 ShannanMadeline wilson [facility] 11:15:00 [facility]) BLOOD UREA NITROGEN 2021-10-25 Madeline Campbell [facility] 11:15:00 [facility]) SERUM CREATININE 2021-10-25 StratfordJorge LuisMadeline Margo [facility] 11:15:00 [facility] GLUCOSE, RANDOM 2021-10-25 [place] Madeline Margo [place] [facility] 11:15:00 [facility] LACTATE DEHYDROGENASE 2021-10-25 ShannanMadeline wilson [facility] 11:15:00 [facility] URIC ACID 2021-10-25 ShannanJorge Luis wilsonelle Margo [place] 11:15:00 [facility] PHOSPHORUS LEVEL 2021-10-25 Madeline Campbell [facility] 11:15:00 [facility] FRACTIONATED BILIRUBIN 2021-10-25 Madeline Campbell [facility] 11:15:00 [facility] ALBUMIN LEVEL 2021-10-25 Madeline Campbell [place] [facility] [place] 11:15:00 [facility] CALCIUM LEVEL TOTAL 2021-10-25 Madeline Campbell [facility] 11:15:00 [facility] MAGNESIUM LEVEL 2021-10-25 Jorge Luis Campbellelle Margo [place] [facility] [place] 11:15:00 [facility] ALANINE AMINOTRANSFERASE 2021-10-25 Madeline Campbell [facility] 11:15:00 [facility] ASPARTATE AMINOTRANSFERASE 2021-10-25 Madeline Campbell [facility] 11:15:00 [facility] ALKALINE PHOSPHATASE 2021-10-25 Mad[facility] 11:15:00 [facility] VANCOMYCIN LEVEL TROUGH 2021-10-25 Yodit Colunga [facility] 11:15:00 [facility] Results CBC [facility] MANUAL DIFFERENTIAL 2021-10-25 [facility] 11:15:00 [facility] SERUM CREATININE 2021-10-25 [facility] 11:15:00 [facility] .GLOMERULAR FILTRATION RATE 2021-10-25 Cl rahel [facility] 11:15:00 [facility] ANION GAP 2021-10-25 [facility] [place] 11:15:00 [facility] IR CT GUIDED DEEP DRAIN 2021-10-24 Darnell Quick [facility] PLACEMENT (NON-ORGAN) 75 22:25:08 MD Arredondo [facility] AFB CULTURE W/ SMEAR 2021-10-24 Fidencio Cabello [facility] 22:21:00 [facility] BODY FLUID CULTURE 2021-10-24 Destiney [facility] 22:21:00 [facility] ANAEROBIC CULTURE 2021-10-24 Dest[facility]y [facility] 22:21:00 [facility] FUNGUS CULTURE W/ SMEAR 2021-10-24 Destiney [facility] 22:21:00 [facility] COMPREHENSIVE METABOLIC 2021-10-24 Rosalba Potts [facility] PANEL 14:28:00 [facility] GLUCOSE LEVEL 2021-10-24 Rosalba Potts [facility] xa 14:28:00 [facility] BLOOD UREA NITROGEN 2021-10-24 Rosalba Potts [facility] 14:28:00 [facility] ELECTROLYTE PANEL 2021-10-24 Rosalba Potts [facility] 14:28:00 [facility] SERUM CREATININE 2021-10-24 Rosalba Potts [facility] ex 14:28:00 [facility] .GLOMERULAR FILTRATION RATE 2021-10-24 Rosalba Potts [facility] 14:28:00 [facility] CALCIUM LEVEL TOTAL 2021-10-24 Rosalba Potts [facility] 14:28:00 [facility] ALBUMIN LEVEL 2021-10-24 Rosalba Potts [facility] xa 14:28:00 [facility] ALKALINE PHOSPHATASE 2021-10-24 Rosalba Potts [facility] 14:28:00 [facility] ALANINE AMINOTRANSFERASE 2021-10-24 Rosalba Potts [facility] 14:28:00 [facility] ASPARTATE AMINOTRANSFERASE 2021-10-24 Rosalba Potts [facility] 14:28:00 [facility] TOTAL PROTEIN 2021-10-24 Rosalba Potts [facility] xa 14:28:00 [facility] FRACTIONATED BILIRUBIN 2021-10-24 Rosalba Potts [facility] 14:28:00 [facility] COMPLETE BLOOD COUNT W/ 2021-10-24 Atiya Smallwood [facility] INDICES 14:28:00 [facility] MAGNESIUM LEVEL 2021-10-[facility] 12:29[facility]00 [facility] PHOSPHORUS LEVEL 2021-10-24 Yodit Colunga [facility] 12:29:00 [facility] URIC ACID 2021-10-24 [facility]anu [facility] 12:29:00 [facility] LACTATE DEHYDROGENASE 2021-10-24 Keanu [facility] 12:29:00 [facility] GLUCOSE LEVEL 2021-10-24 Keanu [facility] 12:29:00 [facility] BLOOD UREA [facility]ROGEN 2021[facility]10[facility] 12:29[facility]00 [facility] ELECTROLYTE PANEL 2021-10-24 Keanu [facility] 12:29:00 [facility] SERUM CREATININE 2021-10-24 Keanu [facility] 12:29:00 [facility] .GLOMERULAR FILTRATION RATE 2021-10-24 Yodit Colunga [facility] 12:29:00 [facility] CALCIUM LEVEL TOTAL 2021-10-24 [facility] 12:29:00 [facility] ALBUMIN LEVEL 2021-10-24 Yodit Colunga [facility] xa 12:29:00 [facility] ALKALINE PHOSPHATASE 2021-10-24 Keanu [facility] 12:29:00 [facility] ALANINE AMINOTRANSFERASE 2021-10-24 Keanu Yodit [facility] 12:29:00 [facility] ASPARTATE AMIN[facility]RANSFERASE 2021-10-[facility] 12:29[facility]00 [facility] TOTAL PROTEIN 2021-10-[facility] 12:29:00 [facility] FRACTIONATED BILIRUBIN 2021-10-24 Yodit Colunga [facility] 12:29:00 [facility] COMPLETE BLOOD COUNT W/ 2021-10-24 Madeline Campbell [facility] DIFFERENTIAL 08:46:00 [facility] SODIUM LEVEL 2021-10-24 Madeline Campbell [place] [facility] [place] 08:46:00 [facility] CHLORIDE LEVEL 2021-10-24 Madeline Campbell [place] [facility] [place] 08:46:00 [facility] CARBON DIOXIDE LEVEL 2021-10-24 Madeline Campbell [facility] 08:46:00 [facility] BLOOD UREA NITROGEN 2021-10-24 Madeline Campbell [facility] 08:46:00 [facility] SERUM CREATININE 2021-10-24 StratfordMadeline wilson [facility] 08:46:00 [facility] GLUCOSE, RANDOM 2021-10-24 Madeline Campbell [place] [facility] [place] 08:46:00 [facility] LACTATE DEHYDROGENASE 2021-10-24 Madeline Campbell [facility] 08:46:00 [facility] URIC ACID 2021-10-24 StratfordMadeline wilson [place] [facility] [place] 08:46:00 [facility] PHOSPHORUS LEVEL 2021-10-24 ShannanMadeline wilson [facility] 08:46:00 [facility] FRACTIONATED BILIRUBIN 2021-10-24 Madeline Campbell [facility] 08:46:00 [facility] ALBUMIN LEVEL 2021-10-24 Madeline Campbell [place] [facility] [place] 08:46:00 [facility] MAGNESIUM LEVEL 2021-10-24 StratfordMadeline wilson [place] [facility] [place] 08:46:00 [facility] ALANINE AMINOTRANSFERASE 2021-10-24 Madeline Campbell [facility] versity [facility] 08:46:00 [facility] ASPARTATE AMINOTRANSFERASE 2021-10-24 StratfordMadeline wilson [facility] 08:46:00 [facility] ALKALINE PHOSPHATASE 2021-10-24 Madeline Campbell [facility] 08:46:00 [facility] Results CBC 2021-10-24 Atiya Smallwood [facility] xas 08:46:00 [facility] Center MANUAL DIFFERENTIAL 2021-10-24 [facility] [place] 08:46:00 [facility] SERUM CREATININE 2021-10-[facility]00 [facility] .GLOMERULAR FILTRATION RATE 2021-10-24 [facility] 08:46:00 [facility] ANION GAP 2021-10-24 [facility] 08:46:00 [facility] EKG, 12-LEAD (PORTABLE) 2021-10-24 Favian Hill [facility] 00:00:00 [facility] COMPLETE BLOOD COUNT W/ 2021-10-23 Madeline Campbell [facility] DIFFERENTIAL 09:29:00 [facility] SODIUM LEVEL 2021-10-23 Madeline Campbell [place] [facility] [place] 09:29:00 [facility] POTASSIUM LEVEL 2021-10-23 Jorge Luis Campbellelle Margo [place] [facility] [place] 09:29:00 [facility] CHLORIDE LEVEL 2021-10-23 Jorge Luis Campbellelle Margo [place] [facility] [place] 09:29:00 [facility] CARBON DIOXIDE LEVEL 2021-10-23 Madeline Campbell [facility] 09:29:00 [facility] BLOOD UREA NITROGEN 2021-10-23 Madeline Campbell [facility] 09:29:00 [facility] SERUM CREATININE 2021-10-23 Madeline Campbell [facility] 09:29:00 [facility] GLUCOSE, RANDOM 2021-10-23 Madeline Campbell [place] [facility] [place] 09:29:00 [facility] LACTATE DEHYDROGENASE 2021-10-23 Madeline Campbell [facility] 09:29:00 [facility] URIC ACID 2021-10-23 Madeline Campbell [place] [facility] [place] 09:29:00 [facility] PHOSPHORUS LEVEL 2021-10-23 Madeline Campbell [facility] 09:29:00 [facility] FRACTIONATED BILIRUBIN 2021-10-23 Madeline Campbell [facility] 09:29:00 [facility] Center ALBUMIN LEVEL 2021-10-23 StratfordJorge Luis wilsonelle Margo [place] [facility] [place] 09:29:00 [facility] CALCIUM LEVEL TOTAL 2021-10-23 Madeline Campbell [facility] 09:29:00 [facility] Center MAGNESIUM LEVEL 2021-10-23 Jorge Luis Campbellelle Margo [place] [facility] [place] 09:29:00 [facility] ALANINE AMINOTRANSFERASE 2021-10-23 Madeline Campbell [facility] 09:29:00 [facility] ASPARTATE AMINOTRANSFERASE 2021-10-23 StratfordMadeline wilson [facility] 09:29:00 [facility] ALKALINE PHOSPHATASE 2021-10-23 Madeline Campbell [facility] 09:29:00 [facility] Center TYPE AND SCREEN 2021-10-23 StratfordMadeline wilson [place] [facility] [place] 09:29:00 [facility] Results CBC 2021-10-23 [facility] 09:29:00 [facility] MANUAL DIFFERENTIAL 2021-10-23 [facility] [place] 09:29:00 [facility] SERUM CREATININE 2021-10-23 [facility] exas 09:29:00 [facility] .GLOMERULAR FILTRATION RATE 2021-10-23 [facility] 09[facility]29:00 [facility] ABORH 2021-10-23 [facility] [place] 09:29:00 [facility] ANTIBODY SCREEN 2021-10-23 [facility] [place] 09:29:00 [facility] ANION GAP 2021-10-23 [facility] [place] 09:29:00 [facility] TMP INTERPRETATION ANTIBODY 2021-10-23 Cl [facility] SCREEN NEGATIVE 09:29:00 [facility] CLOT EXPIRATION DATE 2021-10-23 [facility] 09:29:00 [facility] CT ABDOMEN PELVIS W WO 2021-10-23 [facility] 00:57:00 [facility] BLOODCULTURE 2021-10-22 Cl [facility] xas 23:05:00 [facility] URINALYSIS WITH MICROSCOPIC 2021-10-22 Travis Shah [facility] IF INDICATED 17:11:00 [facility] URINALYSIS MICROSCOPIC 2021-10-22 Travis Shah [facility] 17:11:00 [facility] URINE CULTURE 2021-10-22 Pablo Travis [facility] 17:11:00 [facility] XR CHEST 1 VW 2021-10-22 Pablo Travis [facility] 15:15:42 [facility] COMPLETE BLOOD COUNT W/ 2021-10-22 Travis Shah [facility] DIFFERENTIAL 14:55:00 [facility] COMPREHENSIVE METABOLIC 2021-10-22 Travis Shah [facility] PANEL 14:55:00 [facility] MAGNESIUM LEVEL 2021-10-22 Pablo [facility] 14:55:00 [facility] PHOSPHORUS LEVEL 2021-10-22 Pablo Travis [facility] 14:55:00 [facility] PROCALCITONIN 2021-10-22 Pablo Travis [facility] 14:55:00 [facility] CARDIAC PANEL 2021-10-22 Pablo Travis [facility] 14:55:00 [facility] NT PRO BNP 2021-10-22 Pablo Travis [facility] 14:55:00 [facility] PROTHROMBIN TIME 2021-10-22 Travis Shah [facility] 14:55:00 [facility] APTT 2021-10-22 Pablo Travis [facility] 14:55:00 [facility] D DIMER 2021-10-22 Pablo [facility] 14:55:00 [facility] LACTIC ACID, VENOUS 2021-10-22 Travis Shah [facility] 14:55:00 [facility] C REACTIVE PROTEIN 2021-10-22 Pablo [facility] 14:55:00 [facility] Results CBC 2021-10-22 Pablo [facility] 14:55:00 [facility] MANUAL DIFFERENTIAL 2021-10-22 Pablo [facility] 14:55:00 [facility] GLUCOSE LEVEL 2021-10-22 Pablo [facility] 14:55:00 [facility] BLOOD UREA NITROGEN 2021-10-22 Pablo [facility] 14:55:00 [facility] ELECTROLYTE PANEL 2021-10-22 Pablo Travis [facility] 14:55:00 [facility] SERUM CREATININE 2021-10-22 Pablo [facility] 14:55:00 [facility] .GLOMERULAR FILTRATION RATE 2021-10-22 Travis Shah [facility] 14:55:00 [facility] CALCIUM LEVEL TOTAL 2021-10-22 Pablo [facility] 14:55:00 [facility] ALBUMIN LEVEL 2021-10-22 Pablo [facility] 14:55:00 [facility] ALKALINE PHOSPHATASE 2021-10-22 Travis Shah [facility] 14:55:00 [facility] ALANINE AMINOTRANSFERASE 2021-10-22 Travis Shah [facility] 14:55:00 [facility] ASPARTATE AMINOTRANSFERASE 2021-10-22 Travis Shah [facility] 14:55:00 [facility] TOTAL PROTEIN 2021-10-22 Travis Shah [facility] 14:55:00 [facility] FRACTIONATED BILIRUBIN 2021-10-22 Travis Shah [facility] 14:55:00 [facility] BLOODCULTURE 2021-10-22 Pablo [facility] 14:55:00 [facility] COVID-19 (SARS-COV-2) 2021-10-22 Travis Shah [facility] ASYMPTOMATIC-LT 14:55:00 [facility] RESPIRATORY VIRAL PANEL, 2021-10-22 Taylor Bell [facility] NASOPHARYNGEAL SWAB 14:55:00 [facility] RESPIRATORY PCR PANEL PATH 2021-10-22 Michelle Mejia [facility] REVIEW 14:55:00 Deb GRACIA [facility] EKG, 12-LEAD (PORTABLE) 2021-10-22 Travis Shah [facility] 00:00:00 [facility] COMPLETE BLOOD COUNT W/ 2021-10-17 Susan Keller [facility] DIFFERENTIAL 17:53:00 [facility] TOTAL PROTEIN 2021-10-17 Susan Keller [facility] ex 17:53:00 [facility] ALBUMIN LEVEL 2021-10-17 Susan Keller [facility] 17:53:00 [facility] CALCIUM LEVEL TOTAL 2021-10-17 Susan Keller [facility] 17:53:00 [facility] PHOSPHORUS LEVEL 2021-10-17 Susan Keller [facility] 17:53:00 [facility] GLUCOSE, RANDOM 2021-10-17 Susan Keller [facility] ex 17:53:00 [facility] BLOOD UREA NITROGEN 2021-10-17 Susan Keller [facility] 17:53:00 [facility] SERUM CREATININE 2021-10-17 Susan Keller [facility] 17:53:00 [facility] URIC ACID 2021-10-17 Susan Keller [facility] ex 17:53:00 [facility] FRACTIONATED BILIRUBIN 2021-10-17 Susan Keller [facility] 17:53:00 [facility] ALKALINE PHOSPHATASE 2021-10-17 Susan Keller [facility] 17:53:00 [facility] LACTATE DEHYDROGENASE 2021-10-17 Susan Keller [facility] 17:53:00 [facility] ALANINE AMINOTRANSFERASE 2021-10-17 Susan Keller [facility] 17:53:00 [facility] MAGNESIUM LEVEL 2021-10-17 Susan Keller [facility] ex 17:53:00 [facility] ASPARTATE AMINOTRANSFERASE 2021-10-17 Susan Keller [facility] 17:53:00 [facility] ELECTROLYTE PANEL 2021-10-17 Susan Keller [facility] 17:53:00 [facility] TYPE AND SCREEN 2021-10-17 Susan Keller [facility] ex 17:53:00 [facility] Results CBC 2021-10-17 Susan Keller [facility] 17:53:00 [facility] MANUAL DIFFERENTIAL 2021-10-17 Susan Keller [facility] 17:53:00 [facility] SERUM CREATININE 2021-10-17 Susan Keller [facility] 17:53:00 [facility] ABORH 2021-10-17 Susan Keller [facility] ex 17:53:00 [facility] ANTIBODY SCREEN 2021-10-17 Susan Keller [facility] 17:53:00 [facility] .GLOMERULAR FILTRATION RATE 2021-10-17 Susan Keller [facility] 17:53:00 [facility] CLOT EXPIRATION DATE 2021-10-17 Susan Keller [facility] 17:53:00 [facility] TMP INTERPRETATION ANTIBODY 2021-10-17 Susan Keller [facility] SCREEN NEGATIVE 17:53:00 [facility] CT ABDOMEN PELVIS W CONTRAST 2021-10-16 Augusta Lewis [facility] 15:48:00 [facility] COMPLETE BLOOD COUNT W/ 2021-10-10 Susan Keller [facility] DIFFERENTIAL 13:06:00 [facility] TOTAL PROTEIN 2021-10-10 Susan Keller [facility] ex 13:06:00 [facility] Center ALBUMIN LEVEL 2021-10-10 Susan Keller [facility] 13:06:00 [facility] CALCIUM LEVEL TOTAL 2021-10-10 Susan Keller [facility] 13:06:00 [facility] PHOSPHORUS LEVEL 2021-10-10 Susan Keller [facility] 13:06:00 [facility] GLUCOSE, RANDOM 2021-10-10 Susan Keller [facility] 13:06:00 [facility] BLOOD UREA NITROGEN 2021-10-10 Susan Keller [facility] 13:06:00 [facility] SERUM CREATININE 2021-10-10 Susan Keller [facility] 13:06:00 [facility] [facility] URIC ACID 2021-10-10 Susan Keller [facility] 13:06:00 [facility] FRACTIONATED BILIRUBIN 2021-10-10 Susan Keller [facility] 13:06:00 [facility] ALKALINE PHOSPHATASE 2021-10-10 Susan Keller [facility] 13:06:00 [facility] LACTATE DEHYDROGENASE 2021-10-10 Susan Keller [facility] 13:06:00 [facility] ALANINE AMINOTRANSFERASE 2021-10-10 Susan Keller [facility] 13:06:00 [facility] Center MAGNESIUM LEVEL 2021-10-10 Susan Keller [facility] 13:06:00 [facility] ASPARTATE AMINOTRANSFERASE 2021-10-10 Susan Keller [facility] 13:06:00 [facility] ELECTROLYTE PANEL 2021-10-10 Susan Keller [facility] 13[facility]06:00 [facility] TYPE AND SCREEN 2021-10-10 Susan Keller [facility] 13:06:00 [facility] Results CBC 2021-10-10 Susan Keller [facility] 13[facility]06:00 MD Esdras C[facility] er Center MANUAL DIFFERENTIAL 2021-10-10 Susan Keller [facility] 13:06:00 [facility] SERUM CREATININE 2021-10-10 Susan Keller [facility] 13:06:00 [facility] .GLOMERULAR FILTRATION RATE 2021-10-10 Susan Keller [facility] 13:06:00 [facility] ABORH 2021-10-10 Susan Keller [facility] ex 13:06:00 [facility] ANTIBODY SCREEN 2021-10-10 Susan Keller [facility] 13[facility]06:00 [facility] CLOT EXPIRATION DATE 2021-10-10 Susan Keller [facility] 13:06:00 [facility] TMP INTERPRETATION ANTIBODY 2021-10-10 Susan Keller [facility] SCREEN NEGATIVE 13:06:00 [facility] MAGNESIUM LEVEL 2021-10-03 Susan Keller [facility] 12[facility]30:00 [facility] ASPARTATE AMINOTRANSFERASE 2021-10-03 Susan Keller [facility] 12:30:00 [facility] ELECTROLYTE PANEL 2021-10-03 Susan Keller [facility] 12:30:00 [facility] TYPE AND SCREEN 2021-10-03 Susan Keller [facility] 12:30:00 [facility] Results CBC 2021-10-03 Susan Keller [facility] 12:30:00 [facility] MANUAL DIFFERENTIAL 2021-10-03 Susan Keller [facility] 12:30:00 [facility] SERUM CREATININE 2021-10-03 Susan Keller [facility] 12:30:00 [facility] .GLOMERULAR FILTRATION RATE 2021-10-03 Susan Keller [facility] 12:30:00 [facility] ABORH 2021-10-03 Susan Keller [facility] ex 12:30:00 [facility] ANTIBODY SCREEN 2021-10-03 Susan Keller [facility] 12:30:00 [facility] TMP INTERPRETATION ANTIBODY 2021-10-03 Susan Keller [facility] SCREEN NEGATIVE 12:30:00 [facility] CLOT EXPIRATION DATE 2021-10-03 Susan Keller [facility] 12:30:00 [facility] COMPLETE BLOOD COUNT W/ 2021-10-03 Susan Keller [facility] DIFFERENTIAL 12:30:00 [facility] TOTAL PROTEIN 2021-10-03 Susan Keller [facility] 12[facility]30:00 [facility] ALBUMIN LEVEL 2021-10-03 Susan Keller [facility] 12:30:00 [facility] CALCIUM LEVEL TOTAL 2021-10-03 Susan Keller [facility] 12:30:00 [facility] PHOSPHORUS LEVEL 2021-10-03 Susan Keller [facility] 12:30:00 [facility] GLUCOSE, RANDOM 2021-10-03 Susan Keller [facility] 12:30:00 [facility] BLOOD UREA NITROGEN 2021-10-03 Susan Keller [facility] 12:30:00 [facility] SERUM CREATININE 2021-10-03 Susan Keller [facility] 12:30:00 [facility] URIC ACID 2021-10-03 Susan Keller [facility] 12:30:00 [facility] FRACTIONATED BILIRUBIN 2021-10-03 Susan Keller [facility] 12:30:00 [facility] ALKALINE PHOSPHATASE 2021-10-03 Susan Keller [facility] 12:30:00 [facility] LACTATE DEHYDROGENASE 2021-10-03 Susan Keller [facility] 12:30:00 [facility] ALANINE AMINOTRANSFERASE 2021-10-03 Susan Keller [facility] 12:30:00 [facility] CONFIRM ABORH TYPE 2021-10-03 Susan Keller [facility] 12:28:00 [facility] COMPLETE BLOOD COUNT W/ 2021-09-28 Crescencio Cooley [facility] DIFFERENTIAL 08:14:00 [facility] COMPREHENSIVE METABOLIC 2021-09-28 Crescencio [facility]oley [facility] PANEL 08:14:00 [facility] MAGNESIUM LEVEL 2021-09-28 Crescencio Cooley [facility] xas 08:14:00 [facility] PHOSPHORUS LEVEL 2021-09-28 Crescencio Cooley [facility]. [facility] exas 08:14:00 [facility] LACTATE DEHYDROGENASE 2021-09-28 Susan Keller [facility] 08:14:00 [facility] URIC ACID 2021-09-28 Susan Keller [facility] ex 08:14:00 [facility] Results CBC 2021-09-28 Crescencio Cooley [facility] xa 08:14:00 [facility] MANUAL DIFFERENTIAL 2021-09-28 Crescencio Cooley [facility] 08:14:00 [facility] GLUCOSE LEVEL 2021-09-28 Crescencio Cooley [facility]as 08:14:00 [facility] BLOOD UREA NITROGEN 2021-09-28 Crescencio Cooley [facility] 08:14:00 [facility] ELECTROLYTE PANEL 2021-09-28 Crescencio Cooley [facility] 08:14:00 [facility] SERUM CREATININE 2021-09-28 Crescencio Cooley [facility]. [facility] exas 08:14:00 [facility] .GLOMERULAR FILTRATION RATE 2021-09-28 Crescencio Cooley [facility] 08:14:00 [facility] CALCIUM LEVEL TOTAL 2021-09-28 Crescencio Cooley [facility] 08:14:00 [facility] ALBUMIN LEVEL 2021-09-28 Crescencio Cooley [facility]as 08:14:00 [facility] ALKALINE PHOSPHATASE 2021-09-28 Crescencio Cooley [facility] 08:14:00 [facility] ALANINE AMINOTRANSFERASE 2021-09-28 Crescencio Cooley [facility] 08:14:00 [facility] ASPARTATE AMINOTRANSFERASE 2021-09-28 Crescencio Cooley [facility] 08:14:00 [facility] TOTAL PROTEIN 2021-09-28 Crescencio Cooley [facility] xa 08:14:00 [facility] FRACTIONATED BILIRUBIN 2021-09-28 Crescencio Cooley [facility] 08:14:00 [facility] COMPLETE BLOOD COUNT W/ 2021-09-27 Crescencio Cooley [facility] DIFFERENTIAL 09:02:00 [facility] COMPREHENSIVE METABOLIC 2021-09-27 Crescencio Cooley [facility] PANEL 09:02:00 [facility] MAGNESIUM LEVEL 2021-09-27 Crescencio Cooley [facility] 09:02:00 [facility] PHOSPHORUS LEVEL 2021-09-27 Crescencio Cooley [facility]. [facility] ex 09:02:00 [facility] LACTATE DEHYDROGENASE 2021-09-27 Susan Keller [facility] 09:02:00 [facility] URIC ACID 2021-09-27 Susan Keller [facility] exas 09:02:00 [facility] Results CBC 2021-09-27 Crescencio Cooley [facility] 09:02:00 [facility] MANUAL DIFFERENTIAL 2021-09-27 Crescencio Cooley [facility] 09:02:00 [facility] GLUCOSE LEVEL 2021-09-27 Crescencio Cooley [facility] xa 09:02:00 [facility] BLOOD UREA NITROGEN 2021-09-27 Crescencio Cooley [facility] 09:02:00 [facility] ELECTROLYTE PANEL 2021-09-27 Crescencio Cooley [facility] 09:02:00 [facility] SERUM CREATININE 2021-09-27 Crescencio Cooley [facility]. [facility] exas 09:02:00 [facility] .GLOMERULAR FILTRATION RATE 2021-09-27 Crescencio Cooley [facility] 09:02:00 [facility] CALCIUM LEVEL TOTAL 2021-09-27 Crescencio Cooley [facility] 09:02:00 [facility] ALBUMIN LEVEL 2021-09-27 Crescencio Cooley [facility] xas 09:02:00 [facility] ALKALINE PHOSPHATASE 2021-09-27 Crescencio Cooley [facility] 09:02:00 [facility] ALANINE AMINOTRANSFERASE 2021-09-27 Crescencio Cooley [facility] 09:02:00 [facility] ASPARTATE AMINOTRANSFERASE 2021-09-27 Crescencio Cooley [facility] 09:02:00 [facility] TOTAL PROTEIN 2021-09-27 Crescencio Cooley [facility] xas 09:02:00 [facility] FRACTIONATED BILIRUBIN 2021-09-27 Crescencio Cooley [facility] 09:02:00 [facility] EKG, 12-LEAD (PORTABLE) 2021-09-27 Susan Keller [facility] 00:00:00 [facility] PROTHROMBIN TIME 2021-09-26 Susan Keller [facility] 07:59:00 [facility] APTT 2021-09-26 Susan Keller [facility] ex 07:59:00 [facility] COMPLETE BLOOD COUNT W/ 2021-09-26 Crescencio Cooley [facility] DIFFERENTIAL 07:59:00 [facility] COMPREHENSIVE METABOLIC 2021-09-26 Crescencio Cooley [facility] PANEL 07:59:00 [facility] MAGNESIUM LEVEL 2021-09-26 Crescencio Cooley [facility] xas 07:59:00 [facility] PHOSPHORUS LEVEL 2021-09-26 Crescencio Cooley [facility]. [facility] exas 07:59:00 [facility] LACTATE DEHYDROGENASE 2021-09-26 Susan Keller [facility] 07:59:00 [facility] URIC ACID 2021-09-26 Susan Keller [facility] exas 07:59:00 [facility] Results CBC 2021-09-26 Crescencio Cooley [facility] xa 07:59:00 [facility] MANUAL DIFFERENTIAL 2021-09-26 Crescencio Cooley [facility] 07:59:00 [facility] GLUCOSE LEVEL 2021-09-26 Crescencio Cooley [facility] xa 07:59:00 [facility] BLOOD UREA NITROGEN 2021-09-26 Crescencio Cooley [facility] 07:59:00 [facility] ELECTROLYTE PANEL 2021-09-26 Crescencio Cooley [facility] 07:59:00 [facility] SERUM CREATININE 2021-09-26 Crescencio Cooley [facility]. [facility] ex 07:59:00 [facility] .GLOMERULAR FILTRATION RATE 2021-09-26 Crescencio Cooley [facility] 07:59:00 [facility] CALCIUM LEVEL TOTAL 2021-09-26 Crescencio Cooley [facility] 07:59:00 [facility] ALBUMIN LEVEL 2021-09-26 Crescencio Cooley [facility] xas 07:59:00 [facility] ALKALINE PHOSPHATASE 2021-09-26 Crescencio Cooley [facility] 07:59:00 [facility] ALANINE AMINOTRANSFERASE 2021-09-26 Crescencio Cooley [facility] 07:59:00 [facility] ASPARTATE AMINOTRANSFERASE 2021-09-26 Crescencio Cooley [facility] 07:59:00 [facility] TOTAL PROTEIN 2021-09-26 Crescencio Cooley [facility] xas 07:59:00 [facility] FRACTIONATED BILIRUBIN 2021-09-26 Crescencio Cooley [facility] 07:59:00 [facility] ID DIAGNOSTIC BONE MARROW 2021-09-25 Susan Keller [facility] BIOPSIES & ASPIRATIONS 22:54:50 MD Shay [facility] Center COVID-19 (SARS-COV-2) 2021-09-25 Yodit Colunga [facility] ASYMPTOMATIC-LT 20:13:00 [facility] HEMATOPATHOLOGY BONE MARROW 2021-09-25 Yodit Colunga [facility] INTERPRETATION 18:03:00 [facility] HEMATOPATHOLOGY BONE MARROW 2021-09-25 Yodit Colunga [facility] DIFFERENTIAL 18:03:00 [facility] HP CG MYC FISH COLLECTION, 2021-09-25 [facility] NONBLOOD 17:57:00 [facility] HP CG [id number] FISH COLLECTION, 2021-09-25 Jaren [facility] NONBLOOD 17:57:00 [facility] HP CG CHROMOSOME ANALYSIS 2021-09-25 Jaren [facility] COLLECTION, NONBLOOD 17:57:00 [facility] HP MD [id number] MUTATION 2021-09-25 Jaren [facility] ANALYSIS COLLECTION, 17:57:00 [facility] NONBLOOD [place] HP MD [id number] COLLECTION, 2021-09-25 Jaren [facility] NONBLOOD 17:57:00 [facility] HP CYTOGENETICS BLOOD 2021-09-25 Jaren [facility] COLLECTION 17:57:00 [facility] HP FC FLOW CYTOMETRY BLOOD 2021-09-25 Kymberly Munguiaokharley [facility] COLLECTION 17:57:00 [facility] HP MOLECULAR BLOOD 2021-09-25 Jaren [facility] COLLECTION 17:57:00 [facility] HP CG CHROMOSOME ANALYSIS 2021-09-25 Jaren [facility] INTERPRETATION AND REPORT 17:57:00 [facility] HP FC LYMPHOMA B 2021-09-25 Jaren [facility] INTERPRETATION AND REPORT 17:57:00 MD Toure [facility] PROTHROMBIN TIME 2021-09-25 Jaren [facility] exas 09:00:00 [facility] APTT 2021-09-25 Rafael Munguia [facility] xa 09:00:00 [facility] HEPATITIS B CORE ANTIBODY 2021-09-25 [facility]ununuAugusta [facility] IGM ACUTE TITER 09:00:00 [facility] HEPATITIS BE ANTIBODY, SERUM 2021-09-25 Augusta Lewis [facility] 09:00:00 [facility] HEPATITIS BE ANTIGEN, SERUM 2021-09-25 Augusta Lewis [facility] 09:00:00 [facility] COMPLETE BLOOD COUNT W/ 2021-09-25 Crescencio [facility] DIFFERENTIAL 09:00:00 [facility] COMPREHENSIVE METABOLIC 2021-09-25 Crescencio Cooley [facility] PANEL 09:00:00 [facility] MAGNESIUM LEVEL 2021-09-25 Crescencio Cooley [facility] 09:00:00 [facility] PHOSPHORUS LEVEL 2021-09-25 Crescencio Cooley [facility] 09:00:00 [facility] LACTATE DEHYDROGENASE 2021-09-25 Susan Keller [facility] 09:00:00 [facility] URIC ACID 2021-09-25 Susan Keller [facility] 09:00:00 [facility] Results CBC 2021-09-25 Crescencio Cooley [facility] xa 09:00:00 [facility] MANUAL DIFFERENTIAL 2021-09-25 Crescencio Cooley [facility] 09:00:00 [facility] GLUCOSE LEVEL 2021-09-25 Crescencio Cooley [facility] xa 09:00:00 [facility] BLOOD UREA NITROGEN 2021-09-25 Crescencio Cooley [facility] 09:00:00 [facility] ELECTROLYTE PANEL 2021-09-25 Crescencio Cooley [facility] 09:00:00 [facility] SERUM CREATININE 2021-09-25 Crescencio Cooley [facility]. [facility] ex 09:00:00 [facility] .GLOMERULAR FILTRATION RATE 2021-09-25 Crescencio Cooley [facility] 09:00:00 [facility] CALCIUM LEVEL TOTAL 2021-09-25 Crescencio Cooley [facility] 09:00:00 [facility] ALBUMIN LEVEL 2021-09-25 Crescencio Cooley [facility] xa 09:00:00 [facility] ALKALINE PHOSPHATASE 2021-09-25 Crescencio Cooley [facility] 09:00:00 [facility] ALANINE AMINOTRANSFERASE 2021-09-25 Crescencio Cooley [facility] 09:00:00 [facility] ASPARTATE AMINOTRANSFERASE 2021-09-25 Crescencio Cooley [facility] 09:00:00 [facility] TOTAL PROTEIN 2021-09-25 Crescencio Cooley [facility] xa 09:00:00 [facility] FRACTIONATED BILIRUBIN 2021-09-25 Crescencio Cooley [facility] 09:00:00 [facility] COMPLETE BLOOD COUNT W/ 2021-09-24 Crescencio Cooley [facility] DIFFERENTIAL 07:18:00 [facility] COMPREHENSIVE METABOLIC 2021-09-24 Crescencio Cooley [facility] PANEL 07:18:00 [facility] MAGNESIUM LEVEL 2021-09-24 Crescencio Cooley [facility] xa 07:18:00 [facility] PHOSPHORUS LEVEL 2021-09-24 Crescencio Cooley [facility]. [facility] exas 07:18:00 [facility] CREATINE KINASE 2021-09-24 Crescencio Cooley [facility]as 07:18:00 [facility] LACTATE DEHYDROGENASE 2021-09-24 TarikSusan vieira [facility] 07:18:00 [facility] URIC ACID 2021-09-24 Susan Keller [facility] exas 07:18:00 [facility] Results CBC 2021-09-24 Crescencio Cooley [facility] 07:18:00 [facility] MANUAL DIFFERENTIAL 2021-09-24 Crescencio Cooley [facility] 07:18:00 [facility] GLUCOSE LEVEL 2021-09-24 Crescencio Cooley [facility] 07:18:00 [facility] BLOOD UREA NITROGEN 2021-09-24 Crescencio Cooley [facility] 07:18:00 [facility] ELECTROLYTE PANEL 2021-09-24 Crescencio Cooley [facility] 07:18:00 [facility] SERUM CREATININE 2021-09-24 Crescencio [facility]. [facility] [place]as 07:18:00 [facility] .GLOMERULAR FILTRATION RATE 2021-09-24 Crescencio Cooley V. [facility] 07:18:00 [facility] CALCIUM LEVEL TOTAL 2021-09-24 Crescencio Cooley V. [facility] 07:18:00 [facility] ALBUMIN LEVEL 2021-09-24 Crescencio Cooley V. [facility] [place] 07:18:00 [facility] ALKALINE PHOSPHATASE 2021-09-24 Crescencio Cooley V. [facility] 07:18:00 [facility] ALANINE AMINOTRANSFERASE 2021-09-24 Crescencio Cooley V. [facility] 07:18:00 [facility] ASPARTATE AMINOTRANSFERASE 2021-09-24 Crescencio Cooley V. [facility] 07:18:00 [facility] TOTAL PROTEIN 2021-09-24 Crescencio Cooley V. [facility] xa 07:18:00 [facility] FRACTIONATED BILIRUBIN 2021-09-24 Crescencio Cooley V. [facility] 07:18:00 [facility] VERIFY CATHETER TIP 2021-09-23 [facility] 22:18:34 Lavern Espino [facility] XR CHEST 2 VW POST IMPLANT 2021-09-23 Rafael Munguia [facility] 21:09:35 [facility] INSERT VASCULAR ACCESS 2021-09-23 Rafael Munguia [facility] DEVICE 19:30:00 [facility] VASCULAR ACCESS ULTRASOUND 2021-09-23 Rafael Munguia [facility] 18:02:46 [facility] COMPLETE BLOOD COUNT W/ 2021-09-23 Crescencio Cooley V. [facility] DIFFERENTIAL 09:41:00 [facility] COMPREHENSIVE METABOLIC 2021-09-23 Crescencio Cooley [facility]. [facility] PANEL 09:41:00 [facility] MAGNESIUM LEVEL 2021-09-23 Crescencio [facility]oley [facility]. [facility] [place] 09:41:00 [facility] PHOSPHORUS LEVEL 2021-09-23 Crescencio Cooley V. [facility] 09:41:00 [facility] LACTATE DEHYDROGENASE 2021-09-23 [facility] 09:41:00 [facility] URIC ACID 2021-09-23 [facility] exas 09:41:00 [facility] Results CBC 2021-09-23 Crescencio [facility]. [facility] [place] 09:41:00 [facility] MANUAL DIFFERENTIAL 2021-09-23 Crescencio [facility] [place] [facility] 09:41:00 [facility] GLUCOSE LEVEL 2021-09-23 Crescencio [facility]. [facility] [place] 09:41:00 [facility] BLOOD UREA NITROGEN 2021-09-23 Crescencio Cooley [facility]. [place] [facility] [place] 09:41:00 [facility] ELECTROLYTE PANEL 2021-09-23 Crescencio Cooley V. [facility] 09:41:00 [facility] SERUM CREATININE 2021-09-23 Crescencio Cooley V. [facility] 09:41:00 [facility] .GLOMERULAR FILTRATION RATE 2021-09-23 Crescencio Cooley [facility]. [facility] 09:41:00 [facility] CALCIUM LEVEL TOTAL 2021-09-23 Crescencio [facility]. [place] [facility] [place] 09:41:00 [facility] ALBUMIN LEVEL 2021-09-23 Crescencio [facility]. [facility] [place] 09:41:00 [facility] ALKALINE PHOSPHATASE 2021-09-23 Crescencio Co[facility]. [facility] 09:41:00 [facility] ALANINE AMINOTRANSFERASE 2021-09-23 Crescencio Cooley V. [facility] 09:41:00 [facility] ASPARTATE AMINOTRANSFERASE 2021-09-23 Crescencio Cooley V. [facility] 09:41:00 [facility] TOTAL PROTEIN 2021-09-23 Crescencio [facility]. [facility] [place] 09:41:00 [facility] FRACTIONATED BILIRUBIN 2021-09-23 Crescencio Cooley V. [facility] 09:41:00 [facility] VASCULAR ACCESS ULTRASOUND 2021-09-22 Severo Munroe [facility] 21:42:18 [facility] COMPLETE BLOOD COUNT W/ 2021-09-22 Crescencio Co[facility]. [facility] DIFFERENTIAL 10:58:00 [facility] COMPREHENSIVE METABOLIC 2021-09-22 Crescencio [facility]. [facility] PANEL 10:58:00 [facility] MAGNESIUM LEVEL 2021-09-22 Crescencio Cooley [facility]. [facility] [place] 10:58:00 [facility] PHOSPHORUS LEVEL 2021-09-22 Crescencio Cooley V. [facility] ex 10:58:00 [facility] LACTATE DEHYDROGENASE 2021-09-22 Susan Keller [facility] 10:58:00 [facility] URIC ACID 2021-09-22 Susan Keller [facility] 10:58:00 [facility] RAPID PLASMA REAGIN (RPR) 2021-09-22 [facility] 10:[facility]00 Bry Mata MD [facility] Results CBC 2021-09-22 Crescencio [facility]. [facility] [place] 10:58:00 [facility] MANUAL DIFFERENTIAL 2021-09-22 Crescencio Cooley V. [facility] 10:58:00 [facility] Center GLUCOSE LEVEL 2021-09-22 Crescencio Cooley V. [facility] [place] 10:58:00 [facility] BLOOD UREA NITROGEN 2021-09-22 Crescencio Cooley V. [facility] 10:58:00 [facility] ELECTROLYTE PANEL 2021-09-22 Crescencio Cooley V. [facility] 10:58:00 [facility] SERUM CREATININE 2021-09-22 rCescencio Cooley V. [facility] 10:58:00 [facility] .GLOMERULAR FILTRATION RATE 2021-09-22 Crescencio Cooley V. [facility] 10:58:00 [facility] CALCIUM LEVEL TOTAL 2021-09-22 Crescencio Cooley V. [facility] 10:58:00 [facility] ALBUMIN LEVEL 2021-09-22 Crescencio Cooley [facility]. [facility] 10:58:00 [facility] ALKALINE PHOSPHATASE 2021-09-22 Crescencio Cooley [facility]. [facility] 10:58:00 [facility] ALANINE AMINOTRANSFERASE 2021-09-22 Crescencio [facility]oley [facility] 10:58:00 [facility] ASPARTATE AMINOTRANSFERASE 2021-09-22 Crescencio Cooley V. [facility] 10:58:00 [facility] TOTAL PROTEIN 2021-09-22 Crescencio Cooley [facility]. [facility] 10:58:00 [facility] FRACTIONATED BILIRUBIN 2021-09-22 Crescencio Cooley [facility]. [facility] 10:58:00 [facility] TMP RPR PATH INTERP 2021-09-22 [facility] 10:[facility]00 Bry Mata [facility] CMV ANTIBODY IGG AND IGM 2021-09-21 Susan Keller [facility] 11:24:00 [facility] CMV ANTIBODY IGG AND IGM 2021-09-21 Susan Keller [facility] PATH REVIEW 11:24:00 [facility] COMPLETE BLOOD COUNT W/ 2021-09-21 Crescencio Cooley V. [facility] DIFFERENTIAL 11:24:00 [facility] COMPREHENSIVE METABOLIC 2021-09-21 Crescencio Cooley [facility]. [facility] PANEL 11:24:00 [facility] MAGNESIUM LEVEL 2021-09-21 Crescencio Cooley [facility]. [facility] [place] 11:24:00 [facility] PHOSPHORUS LEVEL 2021-09-21 Crescencio Cooley V. [facility] 11:24:00 [facility] LACTATE DEHYDROGENASE 2021-09-21 Susan Keller [facility] 11:24:00 [facility] URIC ACID 2021-09-21 Susan Keller [facility] 11:24:00 [facility] HBV DNA QUANT 2021-09-21 [facility] 11:24:00 [facility] HEPATITIS C VIRUS RNA 2021-09-21 Anu Cruz [facility] DETECT/QUANT, SERUM 11:24:00 [facility] Results CBC 2021-09-21 Crescencio Cooley V. [facility] 11:24:00 [facility] MANUAL DIFFERENTIAL 2021-09-21 Crescencio Cooley V. [facility] 11:24:00 [facility] GLUCOSE LEVEL 2021-09-21 Crescencio Cooley [facility]. [facility] xa 11:24:00 [facility] BLOOD UREA NITROGEN 2021-09-21 Crescencio Cooley V. [facility] 11:24:00 [facility] ELECTROLYTE PANEL 2021-09-21 Crescencio Cooley V. [facility] 11:24:00 [facility] SERUM CREATININE 2021-09-21 Crescencio Cooley V. [facility] ex 11:24:00 [facility] .GLOMERULAR FILTRATION RATE 2021-09-21 Crescencio Cooley V. [facility] 11:24:00 [facility] CALCIUM LEVEL TOTAL 2021-09-21 Crescencio Cooley V. [facility] 11:24:00 [facility] ALBUMIN LEVEL 2021-09-21 Crescencio Cooley [facility]. [facility] xa 11:24:00 [facility] ALKALINE PHOSPHATASE 2021-09-21 Crescencio Cooley V. [facility] 11:24:00 [facility] ALANINE AMINOTRANSFERASE 2021-09-21 Crescencio Cooley V. [facility] 11:24:00 [facility] ASPARTATE AMINOTRANSFERASE 2021-09-21 Crescencio Cooley V. [facility] 11:24:00 [facility] TOTAL PROTEIN 2021-09-21 Crescencio Cooley [facility]. [facility] [place] 11:24:00 [facility] FRACTIONATED BILIRUBIN 2021-09-21 Crescencio Cooley V. [facility] 11:24:00 [facility] HEPATITIS B SURFACE ANTIGEN, 2021-09-21 [facility] 11:24[facility]00 [facility] HEPATITIS B CORE ANTIBODY 2021-09-21 Susan Keller [facility] 11:24:00 [facility] HEPATITIS C VIRUS ANTIBODY 2021-09-21 Susan Keller [facility] 11:24:00 [facility] HTLV I/II AB SCREEN WITH 2021-09-21 Susan Keller [facility] CONFIRM 11:24:00 [facility] HIV-1/2 ANTIGEN AND 2021-09-21 Susan Keller [facility] ANTIBODIES, FOURTH 11:24:00 [facility] RAPID PLASMA REAGIN (RPR) 2021-09-21 Susan Keller [facility] 11:24:00 [facility] TMP HIV 1/2 AG&AB PATH 2021-09-21 Susan Keller [facility] INTERP 11:24:00 [facility] TMP RPR PATH INTERP 2021-09-21 Susan Keller [facility] 11:24:00 [facility] INFECTIOUS DISEASE GROUPING 2021-09-21 Susan Keller [facility] 07:00:00 [facility] HEPATITIS B SURFACE 2021-09-21 Nancy [facility] [place] ANTIBODY, SERUM 07:00:00 [facility] HIV-1 DNA AND RNA QUAL PCR 2021-09-21 Susan Keller [facility] 07:00:00 [facility] ECHOCARDIOGRAM 2D COMPLETE W 2021-09-20 Bouchra Montalvo [facility] CONTRAST 16:13:31 [facility] COMPLETE BLOOD COUNT W/ 2021-09-20 Crescencio Cooley [facility]. [facility] DIFFERENTIAL 10:04:00 [facility] COMPREHENSIVE METABOLIC 2021-09-20 Crescencio Cooley [facility]. [facility] PANEL 10:04:00 [facility] MAGNESIUM LEVEL 2021-09-20 Crescencio Cooley V. [facility] 10:04:00 [facility] PHOSPHORUS LEVEL 2021-09-20 Crescencio Cooley V. [facility] 10:04:00 [facility] Results CBC 2021-09-20 Crescencio Cooley [facility]. [facility] 10:04:00 [facility] MANUAL DIFFERENTIAL 2021-09-20 Crescencio [facility] 10:04:00 [facility] GLUCOSE LEVEL 2021-09-20 Crescencio Co[facility]. [facility] [place] 10:04:00 [facility] BLOOD UREA NITROGEN 2021-09-20 Crescencio Cooley V. [facility] 10:04:00 [facility] ELECTROLYTE PANEL 2021-09-20 Crescencio Cooley V. [facility] 10:04:00 [facility] SERUM CREATININE 2021-09-20 Crescencio Cooley V. [facility] 10:04:00 [facility] .GLOMERULAR FILTRATION RATE 2021-09-20 Crescencio Cooley [facility]. [facility] 10:04:00 [facility] CALCIUM LEVEL TOTAL 2021-09-20 Crescencio Cooley [facility]. [place] [facility] [place] 10:04:00 [facility] ALBUMIN LEVEL 2021-09-20 Crescencio Cooley [facility]. [facility] 10:04:00 [facility] ALKALINE PHOSPHATASE 2021-09-20 Crescencio Cooley V. [facility] 10:04:00 [facility] ALANINE AMINOTRANSFERASE 2021-09-20 Crescencio Cooley [facility]. [facility] 10:04:00 [facility] ASPARTATE AMINOTRANSFERASE 2021-09-20 Crescencio Cooley V. [facility] 10:04:00 [facility] TOTAL PROTEIN 2021-09-20 Crescencio [facility]. [facility] [place] 10:04:00 [facility] FRACTIONATED BILIRUBIN 2021-09-20 Crescencio Cooley V. [facility] 10:04:00 [facility] URINE CULTURE 2021-09-19 Bouchra Montalvo [facility] 19:05:00 [facility] URINALYSIS MICROSCOPIC 2021-09-19 Bouchra Montalvo [facility] 19:05:00 [facility] URINALYSIS WITH MICROSCOPIC 2021-09-19 Bouchra Montalvo [facility] IF INDICATED 19:05:00 [facility] CT ABDOMEN PELVIS W CONTRAST 2021-09-19 Bouchra Montalvo [facility] 16:06:11 [facility] COMPLETE BLOOD COUNT W/ 2021-09-19 Crescencio Cooley [facility]. [facility] DIFFERENTIAL 11:26:00 [facility] COMPREHENSIVE METABOLIC 2021-09-19 Crescencio Cooley [facility]. [facility] PANEL 11:26:00 [facility] MAGNESIUM LEVEL 2021-09-19 Crescencio Cooley [facility]. [facility] 11:26:00 [facility] PHOSPHORUS LEVEL 2021-09-19 Crescencio Cooley [facility]. [facility] 11:26:00 [facility] Results CBC 2021-09-19 Crescencio [facility]. [facility] [place] 11:26:00 [facility] MANUAL DIFFERENTIAL 2021-09-19 Crescencio Cooley V. [facility] 11:26:00 [facility] GLUCOSE LEVEL 2021-09-19 Crescencio [facility] [place] 11:26:00 [facility] BLOOD UREA NITROGEN 2021-09-19 Crescencio Cooley [facility]. [facility] 11:26:00 [facility] ELECTROLYTE PANEL 2021-09-19 Crescencio Cooley V. [facility] 11:26:00 [facility] SERUM CREATININE 2021-09-19 Crescencio Cooley [facility]. [facility] 11:26:00 [facility] .GLOMERULAR FILTRATION RATE 2021-09-19 Crescencio Cooley V. [facility] 11:26:00 [facility] CALCIUM LEVEL TOTAL 2021-09-19 Crescencio Cooley V. [facility] 11:26:00 [facility] ALBUMIN LEVEL 2021-09-19 Crescecnio Cooley [facility]. [facility] 11:26:00 [facility] ALKALINE PHOSPHATASE 2021-09-19 Crescencio Cooley V. [facility] 11:26:00 [facility] ALANINE AMINOTRANSFERASE 2021-09-19 Crescencio Cooley [facility]. [facility] 11:26:00 [facility] ASPARTATE AMINOTRANSFERASE 2021-09-19 Crescencio Cooley V. [facility] 11:26:00 [facility] TOTAL PROTEIN 2021-09-19 Crescencio Cooley [facility]. [facility] xa 11:26:00 [facility] FRACTIONATED BILIRUBIN 2021-09-19 Crescencio Cooley V. [facility] 11:26:00 [facility] HP FC FLOW CYTOMETRY BLOOD 2021-09-18 [facility] COLLECTION 21:46:00 Roberto GRACIA [facility] HP FC LYMPHOMA B HODGKIN 2021-09-18 [facility] INTERPRETATION AND REPORT 21:46:00 Roberto GRACIA [facility] IR [facility] GUIDED BIOPSY 2021-09-18 Bouchra Montalvo [facility] RETROPERITONEAL 60 19:25:46 [facility] PATHOLOGY BIOPSY 2021-09-18 Bouchra Montalvo [facility] INTERPRETATION 18:59:00 [facility] CYTOLOGY IMAGE-GUIDED FNA 2021-09-18 Bouchra Montalvo [facility] INTERPRETATION 18:59:00 [facility] HP CYTOGENETICS BLOOD 2021-09-18 [facility] COLLECTION 16:46:00 [facility] HP CG MYC TISSUE FISH 2021-09-18 [facility] INTERPRETATION AND REPORT 16:46:00 And [facility] HP CG [id number] FISH 2021-09-18 [facility] INTERPRETATION AND REPORT 16:46:00 And [facility] COMPLETE BLOOD COUNT W/ 2021-09-18 Crescencio Cooley V. [facility] DIFFERENTIAL 11:18:00 [facility] COMPREHENSIVE METABOLIC 2021-09-18 Crescencio Cooley V. [facility] PANEL 11:18:00 [facility] MAGNESIUM LEVEL 2021-09-18 Crescencio Cooley V. [facility] xas 11:18:00 [facility] PHOSPHORUS LEVEL 2021-09-18 Crescencio Cooley V. [facility] exas 11:18:00 [facility] Results CBC 2021-09-18 Crescencio Cooley [facility]. [facility] xas 11:18:00 [facility] MANUAL DIFFERENTIAL 2021-09-18 Crescencio Cooley V. [facility] 11:18:00 [facility] GLUCOSE LEVEL 2021-09-18 Crescencio Cooley V. [facility] xas 11:18:00 [facility] BLOOD UREA NITROGEN 2021-09-18 Crescencio Cooley [facility]. [facility] 11:18:00 [facility] ELECTROLYTE PANEL 2021-09-18 Crescencio Cooley V. [facility] 11:18:00 [facility] SERUM CREATININE 2021-09-18 Crescencio Cooley V. [facility]as 11:18:00 [facility] .GLOMERULAR FILTRATION RATE 2021-09-18 Crescencio Cooley V. [facility] 11:18:00 [facility] CALCIUM LEVEL TOTAL 2021-09-18 Crescencio Cooley V. [facility] 11:18:00 [facility] ALBUMIN LEVEL 2021-09-18 Crescencio Cooley [facility]. [facility] xas 11:18:00 [facility] ALKALINE PHOSPHATASE 2021-09-18 Crescencio Cooley V. [facility] 11:18:00 [facility] [facility] ALANINE AMINOTRANSFERASE 2021-09-18 Crescencio Cooley V. [facility] 11:18:00 [facility] ASPARTATE AMINOTRANSFERASE 2021-09-18 Crescencio Cooley V. [facility] 11:18:00 [facility] TOTAL PROTEIN 2021-09-18 Crescencio Cooley V. [facility] xas 11:18:00 [facility] FRACTIONATED BILIRUBIN 2021-09-18 Crescencio Cooley V. [facility] 11:18:00 [facility] PETCT WB INITIAL TREATMENT 2021-09-17 Leann [facility] STRATEGY 14:10:19 [facility] COMPLETE BLOOD COUNT W/ 2021-09-17 Crescencio Cooley V. [facility] DIFFERENTIAL 09:06:00 [facility] COMPREHENSIVE METABOLIC 2021-09-17 Crescencio Cooley V. [facility] PANEL 09:06:00 [facility] MAGNESIUM LEVEL 2021-09-17 Crescencio Cooley V. [facility] xas 09:06:00 [facility] PHOSPHORUS LEVEL 2021-09-17 Crescencio Cooley V. [facility] exas 09:06:00 [facility] PROCALCITONIN 2021-09-17 Bouchra Montalvo [facility] 09:06:00 [facility] RHEUMATOID FACTOR 2021-09-17 Crescencio Cooley V. [facility] QUANTITATIVE 09:06:00 [facility] CYCLIC CITRULLINE ANTIBODY 2021-09-17 Crescencio Cooley V. [facility] IGG 09:06:00 [facility] CREATINE KINASE 2021-09-17 Crescencio Cooley V. [facility] xas 09:06:00 [facility] Results CBC 2021-09-17 Crescencio Cooley V. [facility] xas 09:06:00 [facility] MANUAL DIFFERENTIAL 2021-09-17 Crescencio Cooley V. [facility] 09:06:00 [facility] GLUCOSE LEVEL 2021-09-17 Crescencio Cooley V. [facility] 09:06:00 [facility] BLOOD UREA NITROGEN 2021-09-17 Crescencio Cooley V. [facility] 09:06:00 [facility] ELECTROLYTE PANEL 2021-09-17 Crescencio Cooley V. [facility] 09:06:00 [facility] SERUM CREATININE 2021-09-17 Crescencio Cooley V. [facility] ex 09:06:00 [facility] .GLOMERULAR FILTRATION RATE 2021-09-17 Crescencio Cooley V. [facility] 09:06:00 [facility] CALCIUM LEVEL TOTAL 2021-09-17 Crescencio Cooley V. [facility] 09:06:00 [facility] ALBUMIN LEVEL 2021-09-17 Crescencio Cooley V. [facility] 09:06:00 [facility] ALKALINE PHOSPHATASE 2021-09-17 Crescencio Cooley V. [facility] 09:06:00 [facility] ALANINE AMINOTRANSFERASE 2021-09-17 Crescencio Cooley V. [facility] 09:06:00 [facility] ASPARTATE AMINOTRANSFERASE 2021-09-17 Crescencio Cooley V. [facility] 09:06:00 [facility] TOTAL PROTEIN 2021-09-17 Crescencio Cooley V. [facility] 09:06:00 [facility] FRACTIONATED BILIRUBIN 2021-09-17 Crescencio Cooley V. [facility] 09:06:00 [facility] EKG, 12-LEAD (PORTABLE) 2021[facility]09-[facility] Roberto GRACIA [facility] CT ABDOMEN PELVIS W CONTRAST 2021-09-16 Bouchra Montalvo [facility] 21:57:18 [facility] SEDIMENTATION RATE 2021-09-16 Bouchra Montalvo [facility] NON-AUTOMATED 18:17:00 [facility] C REACTIVE PROTEIN 2021-09-16 Bouchra Montalvo [facility] 18:17:00 [facility] CELL COUNT BODY FLUID 2021-09-16 Vy Moran [facility] 17:10:00 [facility] BODY FLUID CRYSTALS 2021-09-16 Vy Moran [place] [facility] [place] 17:10:00 [facility] WOUND CULTURE W/ GRAM STAIN 2021-09-16 Vy Moran [facility] 17:10:00 [facility] ANAEROBIC CULTURE 2021-09-16 Vy Moran [facility] 17:10:00 [facility] BODY FLUID CRYSTALS W/ PATH 2021-09-16 [facility] REVIEW 17:10:00 [facility] BODY FLUID CRYSTALS PATH 2021-09-16 [facility] 17:10:00 [facility] FUNGUS CULTURE W/ SMEAR 2021-09-16 [facility] 17:10:00 [facility] BLOODCULTURE 2021-09-16 Bouchra Montalvo [place] [facility] 16:38:00 [facility] COMPLETE BLOOD COUNT W/ 2021-09-16 Crescencio Cooley V. [facility] DIFFERENTIAL 10:12:00 [facility] COMPREHENSIVE METABOLIC 2021-09-16 Crescencio Cooley V. [facility] PANEL 10:12:00 [facility] MAGNESIUM LEVEL 2021-09-16 Crescencio Cooley V. [facility] xa 10:12:00 [facility] Center PHOSPHORUS LEVEL 2021-09-16 Crescencio Cooley V. [facility] exas 10:12:00 [facility] Results CBC 2021-09-16 Crescencio Cooley V. [facility] 10:12:00 [facility] MANUAL DIFFERENTIAL 2021-09-16 Crescencio Cooley V. [facility] 10:12:00 [facility] GLUCOSE LEVEL 2021-09-16 Crescencio Cooley V. [facility] 10:12:00 [facility] BLOOD UREA NITROGEN 2021-09-16 Crescencio Cooley V. [facility] 10:12:00 [facility] ELECTROLYTE PANEL 2021-09-16 Crescencio Cooley V. [facility] 10:12:00 [facility] SERUM CREATININE 2021-09-16 Crescencio Cooley V. [facility] ex 10:12:00 [facility]) .GLOMERULAR FILTRATION RATE 2021-09-16 Crsecencio Cooley V. [facility] 10:12:00 [facility] CALCIUM LEVEL TOTAL 2021-09-16 Crescencio Cooley V. [facility] 10:12:00 [facility] ALBUMIN LEVEL 2021-09-16 Crescencio Cooley V. [facility] 10:12:00 [facility] ALKALINE PHOSPHATASE 2021-09-16 Crescencio Cooley V. [facility] 10:12:00 [facility] ALANINE AMINOTRANSFERASE 2021-09-16 Crescencio Cooley V. [facility] 10:12:00 [facility] ASPARTATE AMINOTRANSFERASE 2021-09-16 Crescencio Cooley V. [facility] 10:12:00 [facility] TOTAL PROTEIN 2021-09-16 Crescencio Cooley V. [facility] 10:12:00 [facility] FRACTIONATED BILIRUBIN 2021-09-16 Crescencio Cooley V. [facility] 10:12:00 [facility] XR KNEE 1 OR 2 VIEWS 2021-09-16 Yina Langston [facility] PORTABLE BILATERAL 07:33:51 [facility] URINE CULTURE 2021-09-16 Bouchra Montalov [facility] 00:16:00 [facility] URINALYSIS MICROSCOPIC 2021-09-16 Bouchra Montalvo [facility] 00:16:00 [facility] URINALYSIS WITH MICROSCOPIC 2021-09-16 Bouchra Montalvo [facility] IF INDICATED 00:16:00 [facility] EKG, 12-LEAD (PORTABLE) 2021-09-16 Bouchra Montalvo [facility] 00:00:00 [facility] XR CHEST 1 VW 2021-09-15 Bouchra Montalvo [facility] 22:06:20 [facility] PROTHROMBIN TIME 2021-09-15 ShannonArmida johnson [facility] ex 20:18:00 [facility] COMPLETE BLOOD COUNT W/ 2021-09-15 Crescencio Cooley V. [facility] DIFFERENTIAL 08:29:00 [facility] COMPREHENSIVE METABOLIC 2021-09-15 Crescencio Cooley V. [facility] PANEL 08:29:00 [facility] MAGNESIUM LEVEL 2021-09-15 Crescencio Cooley V. [facility] xa 08:29:00 [facility] PHOSPHORUS LEVEL 2021-09-15 Crescencio Cooley V. [facility] ex 08:29:00 [facility] Results CBC 2021-09-15 Crescencio Cooley V. [facility] xa 08:29:00 [facility] MANUAL DIFFERENTIAL 2021-09-15 Crescencio Cooley V. [facility] 08:29:00 [facility] GLUCOSE LEVEL 2021-09-15 Crescencio Cooley V. [facility] xa 08:29:00 [facility] BLOOD UREA NITROGEN 2021-09-15 Crescencio Cooley V. [facility] 08:29:00 [facility] ELECTROLYTE PANEL 2021-09-15 Crescencio Cooley V. [facility] 08:29:00 [facility] SERUM CREATININE 2021-09-15 Crescencio Cooley V. [facility] ex 08:29:00 [facility]) .GLOMERULAR FILTRATION RATE 2021-09-15 Crescencio Cooley V. [facility] 08:29:00 [facility] CALCIUM LEVEL TOTAL 2021-09-15 Crescencio Cooley V. [facility] 08:29:00 [facility] ALBUMIN LEVEL 2021-09-15 Crescencio Cooley V. [facility] xa 08:29:00 [facility] ALKALINE PHOSPHATASE 2021-09-15 Crescencio Cooley V. [facility] 08:29:00 [facility] ALANINE AMINOTRANSFERASE 2021-09-15 Crescencio Cooley V. [facility] 08:29:00 [facility] ASPARTATE AMINOTRANSFERASE 2021-09-15 Crescencio Cooley V. [facility] 08:29:00 [facility] TOTAL PROTEIN 2021-09-15 Crescencio Cooley V. [facility]as 08:29:00 [facility] FRACTIONATED BILIRUBIN 2021-09-15 Crescencio Cooley V. [facility] 08:29:00 [facility] COMPLETE BLOOD COUNT W/ 2021-09-14 Crescencio Cooley V. [facility] DIFFERENTIAL 09:19:00 [facility] COMPREHENSIVE METABOLIC 2021-09-14 Crescencio Cooley V. [facility] PANEL 09:19:00 [facility] MAGNESIUM LEVEL 2021-09-14 Crescencio Cooley V. [facility] xa 09:19:00 [facility] PHOSPHORUS LEVEL 2021-09-14 Crescencio Cooley V. [facility] ex 09:19:00 [facility] Results CBC 2021-09-14 Crescencio Cooley V. [facility] xa 09:19:00 [facility] MANUAL DIFFERENTIAL 2021-09-14 Crescencio Cooley V. [facility] 09:19:00 [facility] GLUCOSE LEVEL 2021-09-14 Crescencio Cooley V. [facility] xa 09:19:00 [facility] BLOOD UREA NITROGEN 2021-09-14 Crescencio Cooley V. [facility] 09:19:00 [facility] ELECTROLYTE PANEL 2021-09-14 Crescencio Cooley V. [facility] 09:19:00 [facility] SERUM CREATININE 2021-09-14 Crescencio Cooley V. [facility] exas 09:19:00 [facility] .GLOMERULAR FILTRATION RATE 2021-09-14 Crescencio Cooley V. [facility] 09:19:00 [facility] CALCIUM LEVEL TOTAL 2021-09-14 Crescencio Cooley V. [facility] 09:19:00 [facility] Center ALBUMIN LEVEL 2021-09-14 Crescencio Cooley V. [facility]as 09:19:00 [facility] ALKALINE PHOSPHATASE 2021-09-14 Crescencio Cooley V. [facility] 09:19:00 [facility] ALANINE AMINOTRANSFERASE 2021-09-14 Crescencio Cooley V. [facility] 09:19:00 [facility] ASPARTATE AMINOTRANSFERASE 2021-09-14 Crescencio Cooley V. [facility] 09:19:00 [facility] TOTAL PROTEIN 2021-09-14 Crescencio Cooley V. [facility]as 09:19:00 [facility] FRACTIONATED BILIRUBIN 2021-09-14 Crescencio Cooley V. [facility] 09:19:00 [facility] CREATINE KINASE 2021-09-13 Crescencio Cooley V. [facility]as 11:50:00 [facility] HEPATITIS B SURFACE ANTIGEN, 2021-09-13 Crescencio Cooley V. [facility] SERUM 11:50:00 [facility] HEPATITIS B CORE ANTIBODY 2021-09-13 Crescencio Cooley V. [facility] 11:50:00 [facility] HEPATITIS C VIRUS ANTIBODY 2021-09-13 Crescencio Cooley V. [facility] 11:50:00 [facility] FERRITIN LVL 2021-09-13 Crescencio Cooley V. [facility] xas 11:50:00 [facility] TRANSFERRIN 2021-09-13 Crescencio Cooley V. [facility] 11:50:00 [facility] Center IRON LEVEL 2021-09-13 Crescencio Cooley [facility]. [facility] 11:50:00 [facility] THYROID STIMULATING HORMONE 2021-09-13 Crescencio Cooley V. [facility] 11:50:00 [facility] FREE THYROXINE 2021-09-13 Crescencio Cooley V. [facility] 11:50:00 [facility] LIPID PANEL 2021-09-13 Crescencio Cooley V. [facility] xas 11:50:00 [facility] HEMOGLOBIN A1C 2021-09-13 Crescencio Cooley V. [facility] xas 11:50:00 [facility] COMPLETE BLOOD COUNT W/ 2021-09-13 Crescencio Cooley V. [facility] DIFFERENTIAL 11:50:00 [facility] COMPREHENSIVE METABOLIC 2021-09-13 Crescencio Cooley V. [facility] PANEL 11:50:00 [facility] MAGNESIUM LEVEL 2021-09-13 Crescencio Cooley V. [facility] xas 11:50:00 [facility] PHOSPHORUS LEVEL 2021-09-13 Crescencio Cooley V. [facility] 11:50:00 [facility] Results CBC 2021-09-13 Crescencio Cooley V. [facility] xa 11:50:00 [facility] MANUAL DIFFERENTIAL 2021-09-13 Crescencio Cooley V. [facility] 11:50:00 [facility] GLUCOSE LEVEL 2021-09-13 Crescencio Cooley V. [facility] xa 11:50:00 [facility] BLOOD UREA NITROGEN 2021-09-13 Crescencio Cooley V. [facility] 11:50:00 [facility] ELECTROLYTE PANEL 2021-09-13 Crescencio Cooley V. [facility] 11:50:00 [facility] SERUM CREATININE 2021-09-13 Crescencio Cooley V. [facility] 11:50:00 [facility] .GLOMERULAR FILTRATION RATE 2021-09-13 Crescencio Cooley V. [facility] 11:50:00 [facility] CALCIUM LEVEL TOTAL 2021-09-13 Crescencio Cooley V. [facility] 11:50:00 [facility] ALBUMIN LEVEL 2021-09-13 Crescencio Cooley V. [facility] xas 11:50:00 [facility] ALKALINE PHOSPHATASE 2021-09-13 Crescencio Cooley V. [facility] 11:50:00 [facility] ALANINE AMINOTRANSFERASE 2021-09-13 Crescencio Cooley V. [facility] 11:50:00 [facility] ASPARTATE AMINOTRANSFERASE 2021-09-13 Crescencio Cooley Bri [facility] 11:50:00 [facility] TOTAL PROTEIN 2021-09-13 Crescencio Cooley V. [facility] xas 11:50:00 [facility] FRACTIONATED BILIRUBIN 2021-09-13 CooleyCrescencio V. [facility] 11:50:00 [facility] CT CHEST W CONTRAST 2021-09-13 Crescencio Cooley V. [facility] 00:37:16 [facility] BLOODCULTURE 2021-09-12 Cornelius Jordan [facility] 01:36:00 [facility] EKG, 12-LEAD (PORTABLE) 2021-09-12 CooleyCrescencio V. [facility] 00:00:00 [facility] CT ABDOMEN PELVIS W CONTRAST 2021-09-11 Cornelius Jordan [facility] 23:44:00 [facility] URINE CULTURE 2021-09-11 Sylvester [facility]as 20:31:00 [facility] URINALYSIS WITH MICROSCOPIC 2021-09-11 Ana Phan [facility] IF INDICATED 20:31:00 [facility] URINALYSIS MICROSCOPIC 2021-09-11 Ana Phan [facility] 20:31:00 [facility] XR CHEST 1 VW 2021-09-11 Cornelius Jordan [facility] 19:36:53 [facility] POC CHEM 8 2021-09-11 Cornelius Jordan [facility] 19:11:00 [facility]EN [facility]55 [facility] POC VENOUS BLOOD GAS + 2021-09-11 Cornelius Jordan [facility] LACTATE 17:18:00 [facility] BLOODCULTURE 2021-09-11 Sylvester [facility]as 17:17:00 MD Esdras [facility] COVID-19 (SARS-COV-2) 2021-09-11 Sylvester [facility] [address] ASYMPTOMATIC-LT 17:17:00 [facility] Center COMPLETE BLOOD COUNT W/ 2021-09-[address] [facility] DIFFERENTIAL 17:17:00 [facility] CALCIUM LEVEL TOTAL 2021-09-11 Sylvester [facility] 17:17:00 [facility] Center CHLORIDE LEVEL 2021-09-11 Sylvester [facility]as 17:17:00 [facility] Center CARBON DIOXIDE LEVEL 2021-09-11 Sylvester [facility] [address] 17:17:00 [facility] SERUM CREATININE 2021-09-11 [facility] 17:17:00 [facility] Center BLOOD UREA NITROGEN 2021-09-11 Sylvester [facility] 17:17:00 [facility] GLUCOSE, RANDOM 2021-09-11 Sylvester [facility]as 17:17:00 [facility] Center SODIUM LEVEL 2021-09-11 Sylvester [facility] 17:17:00 [facility] Center POTASSIUM LEVEL 2021-09-11 Sylvester [facility] 17:17:00 [facility] Center MAGNESIUM LEVEL 2021-09-11 Sylvester, [facility] 17:17:00 [facility] Center PHOSPHORUS LEVEL 2021-09-11 Sylvester [facility] 17:17:00 [facility] Center ALBUMIN LEVEL 2021-09-11 Sylvester [facility] 17:17:00 [facility] Center ALKALINE PHOSPHATASE 2021-09-11 Sylvester [facility] [address] 17:17:00 [facility] Center ALANINE AMINOTRANSFERASE 2021-09-11 Sylvester [facility] [address] 17:17:00 [facility] Center ASPARTATE AMINOTRANSFERASE 2021-09-11 Sylvester [facility] 17:17:00 [facility] Center FRACTIONATED BILIRUBIN 2021-09-11 Sylvester [facility] 17:17:00 [facility] AMYLASE LEVEL 2021-09-11 [facility] 17:17:00 [facility] LIPASE LEVEL 2021-09-11 Syl[facility] 17:17:00 [facility] LACTATE DEHYDROGENASE 2021-09-11 Sylvester [facility] [address] 17:17:00 [facility] C REACTIVE PROTEIN 2021-09-11 Sylvester [facility] [address] 17:17:00 [facility] PROCALCITONIN 2021-09-11 Syl[facility] 17:17:00 [facility] HIV-1/2 ANTIGEN [facility] 17:17:00 [facility] Results CBC 2021-09-11 Syl[facility] 17:17:00 [facility] MANUAL DIFFERENTIAL 2021-09-11 Sylvester [facility] 17:17:00 [facility] SERUM CREATININE 2021-09-11 [facility] 17:17:00 [facility] .GLOMERULAR FILTRATION RATE 2021-09-11 Sylvester [facility] 17:17:00 [facility] ANION GAP 2021-09-11 Syl[facility] 17:17:00 [facility] TMP HIV 1/2 AG&AB PATH 2021-09-11 Sylvester [facility] INTERP 17:17:00 [facility] NM BRAIN SPECT W I 123 2021-07-[address] [facility] DAT[facility]AN 19:51:00 MRI BRAIN WO CONTRAST 2021-07-10 [facility] 21:20:14 XR ELBOW 3+ VW LEFT 2021-07-10 [facility] 19:25:29 AMMONIA LEVEL 2021-05-23 [facility] 16[facility]05:00 COPPER LEVEL, SERUM 2021-05-23 [facility] 16:05:00 CERULOPLASMIN LEVEL 2021-05-23 [facility] 16:05:00 US ABDOMEN LIMITED 2021-05-23 Neil Levine [facility] 00:55:00 C [facility] ASSIGNMENT OF BENEFITS 2021-05-23 Doctor Unassigned, [facility] 00:05:41 [facility] CONSENT/REFUSAL FOR 2021-05-23 Doctor Unassigned, [facility] DIAGNOSIS AND TREATMENT 00:04:59 [facility] PHACOEMULSIFICATION OF 2021-02-01 [facility] 14:01:00 [facility] LENS IMPLANT ASSIGNMENT OF BENEFITS 2021-01-30 Doctor Unassigned, [facility] 15:50:17 [facility] PHACOEMULSIFICATION OF 2020-12-21 [facility] CATARACT WITH INTRAOCULAR 16:50:00 [facility] LENS IMPLANT DAY SURGERY - ADC 2020-12-21 Doctor Unassigned, [facility] 05:01:00 [facility] ASSIGNMENT OF BENEFITS 2020-12-12 Doctor Unassigned, [facility] 16:09:29 [facility] Cervical laminectomy [facility] Plan of Care Planned Activity Planned Date Details Comments Source Future Scheduled 2022-07-03 COVID-19 Vaccination [facility] [place] Test 06:11:48 (#1) [code = COVID-19 [facility] (#1)] Center Future Scheduled 2022-07-01 COVID-19 Vaccination [facility] [...] Center Future Scheduled 2022-06-24 COVID-19 [facility]ACCINE (#[facility] 15:45:13 [code = COVID-19 VACCINE (#1)] Future Scheduled 2022-06-24 65[facility] [facility] Test 15:45:13 VACCINE (1 - PCV) [code = 65+ PNEUMOCOCCAL VACCINE (1 - PCV)] Future Scheduled 2022-06-24 [facility] Test 15:45:13 (procedure) [code = 088637069] Future Scheduled 2022-06-24 SHINGLES VACCINES (1 [facility] Test 15:45:13 of 2) [code = SHINGLES VACCINES (1 of 2)] Future Scheduled 2022-06-24 COLONOSCOPY SCREENING [facility] Test 15:45:13 [code = COLONOSCOPY SCREENING] Future Scheduled 2022-06-24 INFLUENZA VACCINE [facility] Test 15:45:13 [code = INFLUENZA VACCINE] Future Scheduled 2022-06-24 COVID-19 VACCINE (#1) [facility] 15:45:13 [code = COVID-19 VACCINE (#1)] Future Scheduled 2022-06-24 65+ [facility] Test 15:45:13 VACCINE (1 - PCV) [code = 65+ PNEUMOCOCCAL VACCINE (1 - PCV)] Future Scheduled 2022-06-24 [facility] Test 15:45:13 (procedure) [code = 843048196] Future Scheduled 2022-06-24 SHINGLES VACCINES (1 [facility] Test 15:45:13 of 2) [code = SHINGLES VACCINES (1 of 2)] Future Scheduled 2022-06-24 [facility]ONOSCOPY SCREENING [facility] Test 15:45:13 [code = COLONOSCOPY SCREENING] Future Scheduled 2022-06-24 INFLUENZA VACCINE [facility] Test 15:45:13 [code = INFLUENZA VACCINE] Future Scheduled 2022-06-24 COVID-19 VACCINE (#1) [facility] 15:45:13 [code = COVID-19 VACCINE (#1)] Future Scheduled 2022-06-24 65+ [facility] Test 15:45:13 VACCINE (1 - PCV) [code = 65+ PNEUMOCOCCAL VACCINE (1 - PCV)] Future Scheduled 2022-06-24 [facility] Test 15:45:13 (procedure) [code = [id number]] Future Scheduled 2022-06-24 SHINGLES VACCINES (1 [facility] Test 15:45:13 of 2) [code = SHINGLES VACCINES (1 of 2)] Future Scheduled 2022-06-24 COLONOSCOPY SCREENING [facility] Test 15:45:13 [code = COLONOSCOPY SCREENING] [...] PCV)] Future Scheduled 2022-06-24 Hepatitis C screening [facility] Test 15:45:13 (procedure) [code = [id number]] Future Scheduled 2022-06-24 SHINGLES VACCINES (1 [facility] Test 15:45:13 of 2) [code = SHINGLES VACCINES (1 of 2)] Future Scheduled 2022-06-24 COLONOSCOPY SCREENING [facility] Test 15:45:13 [code = COLONOSCOPY SCREENING] Future Scheduled 2022-06-24 INFLUENZA VACCINE Method ist Hospital Test 15:45:13 [code = INFLUENZA VACCINE] Future Scheduled 2022-06-24 COVID-19 VACCINE (#1) [facility] Test 15:45:13 [code = COVID-19 VACCINE (#1)] Future Scheduled 2022-06-24 65+ PNEUMOCOCCAL Method[facility] Hospital Test 15:45:13 VACCINE (1 - PCV) [code = 65+ PNEUMOCOCCAL VACCINE (1 - PCV)] Future Scheduled 2022-06-24 Hepatitis C screening [facility] Test 15:45:13 (procedure) [code = [id number]] Future Scheduled 2022-06-24 SHINGLES VACCINES (1 [facility] Test 15:45:13 of 2) [code = SHINGLES VACCINES (1 of 2)] Future Scheduled 2022-06-24 COVID-19 [facility]ACCINE (#[facility]) [facility] Test 15:45:13 [code = COVID-19 VACCINE (#1)] Future Scheduled 2022-06-24 65+ [facility]OCOCCAL [facility] Test 15:45:13 VACCINE (1 - PCV) [code = 65+ PNEUMOCOCCAL VACCINE (1 - PCV)] Future Scheduled 2022-06-24 Hepatitis C screening [facility] Test 15:45:13 (procedure) [code = [id number]] Future Scheduled 2022-06-24 SHINGLES VACCINES (1 [facility] Test 15:45:13 of 2) [code = SHINGLES VACCINES (1 of 2)] Future Scheduled 2022-06-24 COLONOSCOPY SCREENING [facility] Test 15:45:13 [code = COLONOSCOPY SCREENING] Future Scheduled 2022-06-24 INFLUENZA VACCINE Method is Hospital Test 15:45:13 [code = INFLUENZA VACCINE] Future Scheduled 2022-06-24 COLONOSCOPY SCREENING [facility] Test 15:45:13 [code = COLONOSCOPY SCREENING] Future Scheduled 2022-06-24 INFLUENZA VACCINE Method is Hospital Test 15:45:13 [code = INFLUENZA VACCINE] Future Scheduled 2022-06-24 COVID-19 VACCINE (#1) [facility] Test 15:45:13 [code = COVID-19 VACCINE (#1)] Future Scheduled 2022-06-24 65+ PNEUMOCOCCAL Method[facility] Hospital Test 15:45:13 VACCINE (1 - PCV) [code = 65+ PNEUMOCOCCAL VACCINE (1 - PCV)] Future Scheduled 2022-06-24 Hepatitis C screening [facility] Test 15:45:13 (procedure) [code = 776391363] Future Scheduled 2022-06-24 SHINGLES VACCINES (1 [facility] Test 15:45:13 of 2) [code = SHINGLES VACCINES (1 of 2)] Future Scheduled 2022-06-24 COLONOSCOPY SCREENING [facility] Test 15:45:13 [code = COLONOSCOPY SCREENING] [...] Center Future Scheduled 2022-06-09 COVID-19 VACCINE (#1) [facility] Test 07:21:10 [code = COVID-19 VACCINE (#1)] Future Scheduled 2022-06-09 65+ PNEUMOCOCCAL Method[facility] Hospital Test 07:21:10 VACCINE (1 - PCV) [code = 65+ PNEUMOCOCCAL VACCINE (1 - PCV)] Future Scheduled 2022-06-09 Hepatitis C screening [facility] Test 07:21:10 (procedure) [code = [id number]] Future Scheduled 2022-06-09 SHINGLES VACCINES (1 [facility] Test 07:21:10 of 2) [code = SHINGLES VACCINES (1 of 2)] Future Scheduled 2022-06-09 COLONOSCOPY SCREENING [facility] Test 07:21:10 [code = COLONOSCOPY SCREENING] Future Scheduled 2022-06-09 INFLUENZA VACCINE Method [facility] Test 07:21:10 [code = INFLUENZA VACCINE] [...] Center Future Scheduled 2022-05-08 COVID-19 VACCINE (#1) [facility] Test 06:34:53 [code = COVID-19 VACCINE (#1)] Future Scheduled 2022-05-08 65+ PNEUMOCOCCAL Method[facility] Hospital Test 06:34:53 VACCINE (1 - PCV) [code = 65+ PNEUMOCOCCAL VACCINE (1 - PCV)] Future Scheduled 2022-05-08 SHINGLES VACCINES (1 Met [facility] Test 06:34:53 of 2) [code = SHINGLES VACCINES (1 of 2)] Future Scheduled 2022-05-08 [facility]ON[facility]COPY SCREENING [facility] Test 06:34:53 [code = COLONOSCOPY SCREENING] Future Scheduled 2022-05-08 HEPATITIS B VACCINES [facility] Test 06:34:53 (1 of 3 - Risk 3-dose series) [code = HEPATITIS B VACCINES (1 of 3 - Risk 3-dose series)] Future Scheduled 2022-05-08 INFLUENZA VACCINE Method ist Hospital Test 06:34:53 [code = INFLUENZA VACCINE] Future Scheduled 2022-05-08 COVID-19 VACCINE (#1) [facility] Test 06:34:53 [code = COVID-19 VACCINE (#1)] Future Scheduled 2022-05-08 65+ PNEUMOCOCCAL [facility] Test 06:34:53 VACCINE (1 - PCV) [code = 65+ PNEUMOCOCCAL VACCINE (1 - PCV)] Future Scheduled 2022-05-08 SHINGLES VACCINES (1 [facility] Test 06:34:53 of 2) [code = SHINGLES VACCINES (1 of 2)] Future Scheduled 2022-05-08 COLONOSCOPY SCREENING [facility] Test 06:34:53 [code = COLONOSCOPY SCREENING] Future Scheduled 2022-05-08 HEPATITIS B VACCINES [facility] Test 06:34:53 (1 of 3 - Risk 3-dose series) [code = HEPATITIS B VACCINES (1 of 3 - Risk 3-dose series)] Future Scheduled 2022-05-08 INFLUENZA VACCINE Method ist Hospital Test 06:34:53 [code = INFLUENZA VACCINE] Future Scheduled 2022-05-08 COVID-19 VACCINE (#1) [facility] Test 06:34:53 [code = COVID-19 VACCINE (#1)] Future Scheduled 2022-05-08 65+ PNEUMOCOCCAL [facility] Test 06:34:53 VACCINE (1 - PCV) [code = 65+ PNEUMOCOCCAL VACCINE (1 - PCV)] Future Scheduled 2022-05-08 SHINGLES VACCINES (1 [facility] Test 06:34:53 of 2) [code = SHINGLES VACCINES (1 of 2)] Future Scheduled 2022-05-08 COLONOSCOPY SCREENING [facility] Test 06:34:53 [code = COLONOSCOPY SCREENING] Future Scheduled 2022-05-08 HEPATITIS B VACCINES [facility] Test 06:34:53 (1 of 3 - Risk 3-dose series) [code = HEPATITIS B VACCINES (1 of 3 - Risk 3-dose series)] Future Scheduled 2022-05-08 INFLUENZA VACCINE Method ist Hospital Test 06:34:53 [code = INFLUENZA VACCINE] Encounters Start End Encounter Admission Attending Care Care Encounter Source Date/Time Date/Time Type Type Clinicians Facility Department ID 2022-06-24 Inpatient WALT CERVANTES MDA MDA [id number] 18:49:02 JOEY Touerers jenise saucedo 2022-05-10 Inpatient WALT WHARTON, MAK CORADO [id number] 18:43:41 ALPA saucedo 2022-05-07 Outpatient SYSTEM, MAK CORADO [id number] 13:17:43 PROVIDER Jaspal o lewis 2022-02-27 Outpatient SYSTEM, MAK CORADO [id number] 15:38:51 PROVIDER Jaspal jenise saucedo 2021-11-24 Outpatient SYSTEM, MAK CORADO [id number] 11:50:18 PROVIDER Jaspal jenise saucedo 2021-09-23 Inpatient WALT MUNGUIA MDA MDA [id number] 13:02:46 RAFAEL saucedo 2021-09-22 Inpatient WALT MUNROE MDA MDA [id number] 16:42:18 Rasheedao lewis 2021-02-27 [id number] Univers 02:18:21 MO manzano [facility] 2022-07-02 2022-07-02 Telephone Lilly, 1.2.840.1 [id number] Univers 00:00:00 00:00:00 Mercedez Garland 07174.1.1 i ty 3.412.2.7 [place] .3.541991 .8 [facility] 2022-06-18 2022-06-25 [facility] Curly Gomes 1.2.840.1 [id number] Univers 13:36:00 16:08:00 Encounter Joey Cervantes 42330.1.1 itEpifanio Matamoros 3.412.2.7 [place] .3.956966 .8 [facility] 2022-06-18 2022-06-25 [facility] Curly Gomes 1.2.840.1 [id number] Univers 13:36:00 16:08:00 Addi Lackeyhe 40605.1.1 ity of Epifanio Joiner 3.412.2.7 [place] .3.597837 .8 [facility] 2022-06-25 2022-06-25 Orders Ander, 1.2.840.1 [id number] Univers 00:00:00 00:00:00 Only Joanie 89752.1.1 ity of 3.412.2.7 [place] .3.246404 .8 [facility] 2022-06-25 2022-06-25 Orders Ander, 1.2.840.1 [id number] Univers 00:00:00 00:00:00 Only Joanie 99891.1.1 ity of 3.412.2.7 [place] .3.510375 .8 [facility] 2022-06-25 2022-06-25 Orders Ander, 1.2.840.1 [id number] Univers 00:00:00 00:00:00 Only Joanie 85063.1.1 ity of 3.412.2.7 [place] .3.705421 .8 [facility] 2022-06-25 2022-06-25 Orders Ander, 1.2.840.1 [id number] Univers 00:00:00 00:00:00 Only Joanie 25953.1.1 ity of 3.412.2.7 [place] .3.501075 .8 [facility] 2022-06-24 2022-06-24 Inpatient WALT GREER MDA MDA [id number] 18:50:06 20:35:23 CROW Shay o lewis 2022-06-24 2022-06-24 Inpatient WALT CERVANTES MDA MDA [id number] MD 20:27:48 20:27:56 JOEY Toureer so n 2022-06-24 2022-06-24 Inpatient WALT CERVANTES MDA MDA [id number] 19:04:34 20[facility]11:49 [facility] 2022-06-24 2022-06-24 Inpatient WALT GREER [facility] MDA [id number] 14:25:25 14:35:48 CROW Shay jenise saucedo 2022-06-24 2022-06-24 Rina Greer, 1.2.840.1 [id number] Univers 00:00:00 00:00:00 Only Crow C 59252.1.1 it y of 3.412.2.7 [place] .3.637536 MD Boles8 [facility] 2022-06-24 2022-06-24 Rina Greer, 1.2.840.1 [id number] [id number] Univers 00:00:00 00:00:00 Only Crow Kwaku 97632.1.1 it y of 3.412.2.7 [place] .3.478694 MD Boles8 [facility] 2022-06-20 2022-06-20 Inpatient WALT PARIKH MAK MDA [id number] 11:22:46 12:16:59 KAILEYMALLORIE saucedo 2022-06-20 2022-06-20 Inpatient WALT CERVANTES [facility] MDA [id number] MD 11:50:27 12:00:06 [facility] Julio Cesar sosa 2022-06-18 2022-06-18 Follow-Up Ricardoswapnilnunu, 1.2.840.1 [id number] Univers 13:00:00 13:33:04 [place] 49236.1.1 ity of 3.412.2.7 [place] .3.165576 MD Boles8 [facility] 2022-06-18 2022-06-18 Follow-Up EL Debbie, 1.2.840.1 [id number] Univers 13:00:00 13:33:04 [place] 53118.1.1 ity of 3.412.2.7 [place] .3.727689 MD Boles8 [facility] 2022-06-18 2022-06-18 Travel 1.2.840.1 1.2.361.927 0933 [id number] Univers 00:00:00 00:00:00 18216.1.1 350.1.13.41 ity of 3.412.2.7 [place].698 [place] .3.3288[place] 084.8 MD Boles8 [facility] 2022-06-18 2022-06-18 Travel 1.2.840.1 1.2.740.404 0533 [id number] Univers 00:00:00 00:00:00 90166.1.1 350.1.13.41 ity of 3.412.2.7 [place]3.698 [place] .3.867162 084.8 MD Boles8 [facility] 2022-06-14 2022-06-14 Refill Meehan, 1.2.840.1 [id number] Univers 00:00:00 00:00:00 Gracy G 39264.1.1 ity of 3.412.2.7 [place] .3.460854 MD Boles8 [facility] 2022-06-14 2022-06-14 Orders [employer]ed [employer]sembler, 1.2.840.1 [id number] Univers 00:00:00 00:00:00 Only Facundo 97897.1.1 ity of 3.412.2.7 [place] .3.665525 MD Boles8 [facility] 2022-06-14 2022-06-14 Orders [employer]er, 1.2.840.1 [id number] Univers 00:00:00 00:00:00 Only Facundo 60831.1.1 ity of 3.412.2.7 [place] .3.535254 MD Boles8 [facility] 2022-06-14 2022-06-14 Refill Meehan, 1.2.840.1 [id number] Univers 00:00:00 00:00:00 Gracy G 07035.1.1 ity of 3.412.2.7 [place] .3.332448 MD Smith [facility] 2022-06-07 2022-06-07 Orders Carbajal, 1.2.840.1 [id number] Univers 00:00:00 00:00:00 Only Hosseinilydia S 47263.1.1 ity of 3.412.2.7 [place] .3.834594 MD Boles8 [facility] 2022-06-07 2022-06-07 [facility] Carbajal, 1.2.840.1 [id number] Univers 00:00:00 00:00:00 Only Adiya S 99676.1.1 ity of 3.412.2.7 [place] .3.527599 MD Boles8 [facility] 2022-06-04 2022-06-04 [facility], 1.2.840.1 [id number] [id number] Univers 11:36:32 23:59:00 Encounter Xinxin 64274.1.1 it y of 3.412.2.7 [place] .3.466714 MD Boles8 [facility] 2022-06-04 2022-06-04 [facility], 1.2.840.1 [id number] Univers 11:36:32 23:59:00 Encounter Xinxin 79202.1.1 it y of 3.412.2.7 [place] .3.902102 MD Boles8 [facility] 2022-06-04 2022-06-04 Follow-Up Dillan, 1.2.840.1 [id number] [id number] Univers 14:30:00 16:00:00 Severo 86658.1.1 ity of P 3.412.2.7 [place] .3.856890 MD Boles8 [facility] 2022-06-04 2022-06-04 Follow-Up WALT Munroe, 1.2.840.1 [id number] [id number] Univers 14:30:00 16:00:00 Severo 10215.1.1 ity of P 3.412.2.7 [place] .3.898807 MD Boles8 [facility] 2022-06-04 2022-06-04 Travel 1.2.840.1 1.2.076.538 5560 [id number] Univers 00:00:00 00:00:00 04681.1.1 350.1.13.41 ity of 3.412.2.7 [place]7.3.698 [place] .3.7180[place] 084.8 MD Boles8 [facility] 2022-06-04 2022-06-04 Travel 1.2.840.1 1.2.159.209 2970 [id number] Univers 00:00:00 00:00:00 21469.1.1 350.1.13.41 ity of 3.412.2.7 [place]7.3.698 [place] .3.868001 084.8 MD Smith [facility] 2022-05-15 2022-05-15 Telephone Verbrocksco, 1.2.840.1 [id number] Univers 00:00:00 00:00:00 Astrid 42994.1.1 ity of 3.412.2.7 [place] .3.890286 MD Boles8 [facility] 2022-05-15 2022-05-15 Telephone Verbrockkyo, 1.2.840.1 [id number] Univers 00:00:00 00:00:00 Astrid 13681.1.1 ity of 3.412.2.7 [place] .3.486210 MD Boles8 [facility] 2022-05-06 2022-05-13 [facility].2.840[facility]1 [id number] Univers 02:06:00 14:19:00 Encounter Yodit Colunga 39255.1.1 ity of Mo Veronica 3.412.2.7 Luis Antonio Henning3.549641 MD Smith [facility] 2022-05-06 2022-05-13 [facility].2.840.1 [id number] Univers 02:06:00 14:19:00 Encounter Yodit Colunga 01454.1.1 ity of Mo Veronica 3.412.2.7 Luis Antonio Henning3.091145 MD Boles8 [facility] 2022-05-13 2022-05-13 Orders Michael, 1.2.840.1 [id number] [id number] Univers 00:00:00 00:00:00 Only Khadra 71478.1.1 ity of 3.412.2.7 [place] .3.492591 MD Boles8 [facility] 2022-05-13 2022-05-13 Orders Michael, 1.2.840.1 [id number] [id number] Univers 00:00:00 00:00:00 Only Khadra 35810.1.1 ity of 3.412.2.7 [place] .3.317178 MD Boles8 [facility] 2022-05-11 2022-05-11 Orders Lobito, 1.2.840.1 [id number] Univers 00:00:00 00:00:00 Only Sam 54110.1.1 ity of 3.412.2.7 [place] .3.578292 MD Smith [facility] 2022-05-11 2022-05-11 Orders Lobito, 1.2.840.1 [id number] Univers 00:00:00 00:00:00 Only Sam 05197.1.1 ity of 3.412.2.7 [place] .3.077894 MD Smith [facility] 2022-05-10 2022-05-10 [facility] WALT WHARTON [facility] [id number] 18:33:59 20:46:46 ALPA saucedo 2022-05-10 2022-05-10 Rina Wharton 1.2.840.1 [id number] Univers 00:00:00 00:00:00 Only Xinxin 78912.1.1 ity of 3.412.2.7 [place] .3.628616 MD Smith [facility] 2022-05-10 2022-05-10 Rina Wharton 1.2.840.1 [id number] Univers 00:00:00 00:00:00 Only Xinxin 69055.1.1 ity of 3.412.2.7 [place] .3.360004 MD Smith [facility] 2022-05-10 2022-05-10 Travel 1.2.840.1 1.2.822.081 5335 [id number] Univers 00:00:00 00:00:00 93442.1.1 350.1.13.41 ity of 3.412.2.7 [place]7.3.698 [place] .3.493568 084.8 MD Boles8 [facility] 2022-05-10 2022-05-10 Travel 1.2.840.1 1.2.630.471 2400 [id number] Univers 00:00:00 00:00:00 04841.1.1 350.1.13.41 ity of 3.412.2.7 [place]7.3.698 [place] .3.733518 084.8 MD Boles8 [facility] 2022-05-10 2022-05-10 Rina Wharton, 1.2.840.1 [id number] Univers 00:00:00 00:00:00 Only Xinxin 09087.1.1 ity of 3.412.2.7 [place] .3.328377 MD Boles8 [facility] 2022-05-10 2022-05-10 Orders Andres, 1.2.840.1 [id number] Univers 00:00:00 00:00:00 Only Xinxin 60548.1.1 ity of 3.412.2.7 [place] .3.045882 MD Boles8 [facility] 2022-05-09 2022-05-09 Inpatient WALT WHARTON MDA MDA [id number] MD 18:05:44 18:13:39 ALPA Toureers o n 2022-05-09 2022-05-09 Inpatient WALT WHARTON MDA MDA [id number] MD 16:38:05 18:13:34 ALPA Jaspal o n 2022-05-08 2022-05-08 Telephone Brianna, 1.2.840.1 [id number] Methodi 00:00:00 00:00:[address] 3.430.2.7 Hospit a .3.637676 l .8 2022-05-08 2022-05-08 Telephone Brianna, 1.2.840.1 [id number] Methodi 00:00:00 00:00:[address] 3.430.2.7 Hospit a .3.962841 l .8 2022-05-06 2022-05-06 Travel 1.2.840.1 1.2.564.011 8137 [id number] Univers 00:00:00 00:00:00 09954.1.1 350.1.13.41 ity of 3.412.2.7 2.[place].3.698 [place] .3.793133 084.8 MD Boles8 [facility] 2022-05-06 2022-05-06 Travel 1.2.840.1 1.2.798.282 8657 [id number] Univers 00:00:00 00:00:00 55031.1.1 350.1.13.41 ity of 3.412.2.7 [place]7.3.698 [place] .3.348735 084.8 MD Smith [facility] 2022-05-03 2022-05-03 Refill [employer], 1.2.840.1 [id number] 010180 3457 Univers 00:00:00 00:00:00 Facundo 15418.1.1 ity of 3.412.2.7 [place] .3.989136 MD Smith [facility] 2022-05-03 2022-05-03 Refill [employer], 1.2.840.1 [id number] 4380 Univers 00:00:00 00:00:00 Facundo 63083.1.1 ity of 3.412.2.7 [place] .3.552197 MD Smith [facility] 2022-05-02 2022-05-02 Office Kevin, 1.2.840.1 [id number] 6047 Methodi 09:35:00 09:50:23 Visit Mauro Danielson 64705.1.[address] 3.430.2.7 Hospit a .3.724733 l .8 2022-05-02 2022-05-02 Office Kevin, 1.2.840.1 [id number] 0719 Methodi 09:35:00 09:50:23 Visit Mauro Danielson 21432.1.[address] 3.430.2.7 Hospit a .3.066576 l .8 2022-05-02 2022-05-02 Travel 1.2.840.1 1.2.904.888 7759 049735 Methodi 00:00:00 00:00:[address] 3.430.2.7 0.2.7.3.698 Ho spita .3.463707 084.8 l .8 2022-05-02 2022-05-02 Travel 1.2.840.1 1.2.132.156 8531 827761 Methodi 00:00:00 00:00:[address] 3.430.2.7 0.2.7.3.698 Ho spita .3.276123 084.8 l .8 2022-04-18 2022-04-18 Orders [employer], 1.2.840.1 [id number] 0349 Univers 00:00:00 00:00:00 Only Facundo 52637.1.1 ity of 3.412.2.7 [place] .3.186755 MD [facility] 2022-04-18 2022-04-18 Refmackenzie Meehan, 1.2.840.1 [id number] Univers 00:00:00 00:00:00 Gracy G 43177.1.1 ity of 3.412.2.7 [place] .3.992389 MD [facility] 2022-04-18 2022-04-18 Orders [employer]er, 1.2.840.1 [id number] Univers 00:00:00 00:00:00 Only Facundo 44673.1.1 ity of 3.412.2.7 [place] .3.535162 MD [facility] 2022-04-18 2022-04-18 Jc Meehan, 1.2.840.1 [id number] Univers 00:00:00 00:00:00 Gracy Valle 28166.1.1 ity of 3.412.2.7 [place] .3.635858 MD [facility] 2022-03-29 2022-03-29 Yodit Munoz 1.2.840.1 [id number] 11 [id number] Univers 00:00:00 00:00:00 98617.1.1 ity of 3.412.2.7 [place] .3.164238 MD [facility] 2022-03-29 2022-03-29 Yodit Munoz 1.2.840.1 [id number] 11 [id number] Univers 00:00:00 00:00:00 06091.1.1 ity of 3.412.2.7 [place] .3.911212 MD [facility] 2022-03-25 2022-03-25 Orders Cooley 1.2.840.1 [id number] 5248 Univers 00:00:00 00:00:00 Only Rinaldi, 86276.1.1 ity of Jihan 3.412.2.7 [place] .3.390386 MD [facility] 2022-03-25 2022-03-25 Orders Cooley 1.2.840.1 [id number] Univers 00:00:00 00:00:00 Only Rinaldi, 80694.1.1 ity of Jihan 3.412.2.7 [place] .3.400988 MD [facility] 2022-03-19 2022-03-19 Barrett Farrell, 1.2.840.1 [id number] 97330 Univers 13:24:49 23:59:00 Encounter Rhiannon 86952.1.1 it y of Oela 3.412.2.7 [place] .3.694071 MD [facility] 2022-03-19 2022-03-19 [facility] WALT Farrell, 1.2.840.1 [id number] [id number] Univers 13:24:49 23:59:00 Encounter Rhiannon 63076.1.1 it y of Olea 3.412.2.7 [place] .3.996972 MD [facility] 2022-03-19 2022-03-19 Follow-Up Dillan, 1.2.840.1 [id number] 1099 [id number] Univers 15:45:00 18:00:32 Severo 84942.1.1 ity of P 3.412.2.7 [place] .3.068290 MD [facility] 2022-03-19 2022-03-19 Follow-Up WALT Munroe, 1.2.840.1 [id number] 1099 [id number] Univers 15:45:00 18:00:32 Severo 97071.1.1 ity of P 3.412.2.7 [place] .3.686987 MD [facility] 2022-03-19 2022-03-19 Consult Natalia, 1.2.840.1 [id number] 11305 28370 Univers 14:00:00 16:34:35 Brett 56119.1.1 ity of 3.412.2.7 [place] .3.131719 MD [facility] 2022-03-19 2022-03-19 Consult WALT Fisher, 1.2.840.1 [id number] 23103 12369 Univers 14:00:00 16:34:35 Brett 64014.1.1 ity of 3.412.2.7 [place] .3.296986 MD [facility] 2022-03-19 2022-03-19 Travel 1.2.840.1 1.2.448.365 8840 372110 Univers 00:00:00 00:00:00 19477.1.1 350.1.13.41 ity of 3.412.2.7 [place]7.3.698 [place] .3.751107 084.8 MD [facility] 2022-03-19 2022-03-19 Travel 1.2.840.1 1.2.707.755 5183 442582 Univers 00:00:00 00:00:00 07364.1.1 350.1.13.41 ity of 3.412.2.7 2.[place].7.3.698 [place] .3.398671 084.8 MD [facility] 2022-03-18 2022-03-18 Ancillary Cooley 1.2.840.1 [id number] 1099 [id number] Univers 12:20:00 14:45:00 Procedure Rinaldi, 90290.1.1 it y of Jihan 3.412.2.7 [place] .3.056948 MD [facility] 2022-03-18 2022-03-18 Ancillary EL Cooley 1.2.840.1 [id number] 1099 [id number] Univers 12:20:00 14:45:00 Procedure Rinaldi, 32606.1.1 it y of Jihan 3.412.2.7 [place] .3.784738 MD [facility] 2022-03-18 2022-03-18 Travel 1.2.840.1 1.2.440.451 2078 [id number] Univers 00:00:00 00:00:00 80365.1.1 350.1.13.41 ity of 3.412.2.7 2.[place].7.3.698 [place] .3.512469 084.8 MD [facility] 2022-03-18 2022-03-18 Travel 1.2.840.1 1.2.877.149 8012 [id number] Univers 00:00:00 00:00:00 93319.1.1 350.1.13.41 ity of 3.412.2.7 2.2.7.3.698 [place] .3.326863 084.8 MD [facility] 2022-03-16 2022-03-16 Emergency Lb Moulton 1.2.840.1 224626 054 [id number] Univers 00:28:00 06:13:00 Ralph Brown 39891.1.1 ity of Shane Saenz. 3.412.2.7 [place] .3.355537 MD [facility] 2022-03-16 2022-03-16 Emergency UR Lb Moulton 1.2.840.1 873328 054 [id number] Univers 00:28:00 06:13:00 Ralph Brown 95956.1.1 ity of Shane Saenz. 3.412.2.7 [place] .3.607956 MD [facility] 2022-03-16 2022-03-16 Travel 1.2.840.1 1.2.983.782 7189 204752 Univers 00:00:00 00:00:00 65003.1.1 350.1.13.41 ity of 3.412.2.7 2.2.7.3.698 [place] .3.049693 084.8 MD [facility] 2022-03-16 2022-03-16 Travel 1.2.840.1 1.2.789.609 4597 527145 Univers 00:00:00 00:00:00 15560.1.1 350.1.13.41 ity of 3.412.2.7 2.2.7.3.698 [place] .3.172550 084.8 MD [facility] 2022-03-06 2022-03-06 Orders Cooley 1.2.840.1 [id number] 5129 Univers 00:00:00 00:00:00 Only Rinaldi, 50525.1.1 ity of Jihan 3.412.2.7 [place] .3.324006 MD [facility] 2022-03-06 2022-03-06 Orders Cooley 1.2.840.1 [id number] 3975 Univers 00:00:00 00:00:00 Only Rinaldi, 72198.1.1 ity of Jihan 3.412.2.7 [place] .3.360617 MD [facility] 2022-03-01 2022-03-01 Refill Meehan, 1.2.840.1 [id number] 1790 Univers 00:00:00 00:00:00 Gracy G 38582.1.1 ity of 3.412.2.7 [place] .3.908145 MD [facility] 2022-03-01 2022-03-01 Refill Zoran, 1.2.840.1 [id number] 6858 Univers 00:00:00 00:00:00 Gracy G 43477.1.1 ity of 3.412.2.7 [place] .3.249014 MD [facility] 2022-02-27 2022-02-27 Infusion Curly Fay 1.2.840.1 10 [id number] [id number] Univers 08:00:00 14:23:25 Chanel Weiss 94402.1.1 ity of 3.412.2.7 [place] .3.702192 MD [facility] 2022-02-27 2022-02-27 Infusion EL Curly Fay 1.2.840.1 10 20130804 [id number] Univers 08:00:00 14:23:25 Chanel Weiss 87080.1.1 ity of 3.412.2.7 [place] .3.071750 MD [facility] 2022-02-27 2022-02-27 Rina Philip 1.2.840.1 [id number] 993100 7689 Univers 00:00:00 00:00:00 Only Doris 03490.1.1 ity of 3.412.2.7 [place] .3.830430 MD [facility] 2022-02-27 2022-02-27 Travel 1.2.840.1 1.2.769.418 2093 233066 Univers 00:00:00 00:00:00 30165.1.1 350.1.13.41 ity of 3.412.2.7 2.2.7.3.698 [place] .3.711798 084.8 MD [facility] 2022-02-27 2022-02-27 Orders Kennis, 1.2.840.1 [id number] 3238 Univers 00:00:00 00:00:00 Only Doris 06930.1.1 ity of 3.412.2.7 [place] .3.194724 MD [facility] 2022-02-27 2022-02-27 Travel 1.2.840.1 1.2.023.563 8716 085606 Univers 00:00:00 00:00:00 32366.1.1 350.1.13.41 ity of 3.412.2.7 2.2.7.3.698 [place] .3.470479 084.8 MD [facility] 2022-02-26 2022-02-26 [facility] P 1.2.840.1 101 [id number] Univers 14:30:29 23:59:00 Encounter Josefa Castillo 08001.1.1 ity of 3.412.2.7 [place] .3.015335 MD [facility] 2022-02-26 2022-02-[address] [facility] P 1.2.840.1 101 565093 [id number] Univers 14:30:29 23:59:00 Encounter Josefa Castillo 80978.1.1 ity of 3.412.2.7 [place] .3.546944 MD [facility] 2022-02-26 2022-02-26 [facility] P 1.2.840.1 101 228764 [id number] Univers 11:48:54 14:29:00 Encounter Josefa Castillo 46027.1.1 ity of 3.412.2.7 [place] .3.771966 MD [facility] 2022-02-26 2022-02-[address] [facility] P 1.2.840.1 101 817438 [id number] Univers 11:48:54 14:29:00 Encounter Josefa Castillo 70242.1.1 ity of 3.412.2.7 [place] .3.686346 MD [facility] 2022-02-26 2022-02-26 Office Dillan, 1.2.840.1 [id number] 7024 Univers 13:00:00 13:47:25 Visit Severo 10926.1.1 ity of P 3.412.2.7 [place] .3.638401 MD [facility] 2022-02-26 2022-02-26 Office WALT Munroe, 1.2.840.1 [id number] 1141 Univers 13:00:00 13:47:25 Visit Severo 50722.1.1 ity of P 3.412.2.7 [place] .3.155163 MD [facility] 2022-02-26 2022-02-26 [facility], 1.2.840.1 [id number] 1 [id number] Univers 10:59:17 11:47:00 Encounter Curly 86096.1.1 i ty of 3.412.2.7 [place] .3.817997 MD [facility] 2022-02-26 2022-02-26 [facility], 1.2.840.1 [id number] 1 [id number] Univers 10:59:17 11:47:00 Encounter Curly 78802.1.1 i ty of 3.412.2.7 [place] .3.264241 MD [facility] 2022-02-26 2022-02-26 Travel 1.2.840.1 1.2.627.753 2982 [id number] Univers 00:00:00 00:00:00 30024.1.1 350.1.13.41 ity of 3.412.2.7 2.2.7.3.698 [place] .3.942483 084.8 MD [facility] 2022-02-26 2022-02-26 Travel 1.2.840.1 1.2.092.661 3809 880661 Univers 00:00:00 00:00:00 09537.1.1 350.1.13.41 ity of 3.412.2.7 2.2.7.3.698 [place] .3.360044 084.8 MD [facility] 2022-02-07 2022-02-07 Infusion Curly Fay 1.2.840.1 10 20130804 [id number] Univers 08:00:00 15:23:21 Johanne Galaviz 43630.1.1 ity of 3.412.2.7 [place] .3.441787 MD [facility] 2022-02-07 2022-02-07 Infusion EL Curly Fay 1.2.840.1 10 20130804 [id number] Univers 08:00:00 15:23:21 Johanne Galaviz 78713.1.1 ity of 3.412.2.7 [place] .3.952390 MD [facility] 2022-02-07 2022-02-07 Travel 1.2.840.1 1.2.101.001 8235 [id number] Univers 00:00:00 00:00:00 46477.1.1 350.1.13.41 ity of 3.412.2.7 2.2.7.3.698 [place] .3.937762 08Bhargavi.8 MD [facility] 2022-02-07 2022-02-07 Travel 1.2.840.1 1.2.404.387 7201 922654 Univers 00:00:00 00:00:00 60714.1.1 350.1.13.41 ity of 3.412.2.7 2.2.7.3.698 [place] .3.940219 084.8 MD [facility] 2022-02-06 2022-02-06 [facility] Severo Munroe 1.2.840.1 101 856259 [id number] Univers 15:59:48 23:59:00 Encounter Leyla Reyna 15741.1.1 ity of 3.412.2.7 [place] .3.049243 MD .8 [facility] 2022-02-06 2022-02-06 [facility] Severo P 1.2.840.1 101 410158 [id number] Univers 15:59:48 23:59:00 Encounter Leyla Reyna 99172.1.1 ity of 3.412.2.7 [place] .3.216606 MD [facility] 2022-02-06 2022-02-06 [facility] 1.2.840.1 101 396830 [id number] Univers 15:00:40 15:58:00 Encounter Leyla Reyna 77516.1.1 ity of 3.412.2.7 [place] .3.295667 MD [facility] 2022-02-06 2022-02-06 [facility] Severo P 1.2.840.1 101 210505 [id number] Univers 15:00:40 15:58:00 Encounter Leyla Reyna 15145.1.1 ity of 3.412.2.7 [place] .3.998890 MD [facility] 2022-02-06 2022-02-06 [facility], 1.2.840.1 [id number] 822 [id number] Univers 11:12:47 14:59:00 Encounter Mert 71920.1.1 it y of 3.412.2.7 [place] .3.703457 MD [facility] 2022-02-06 2022-02-06 [facility], 1.2.840.1 [id number] 874 [id number] Univers 11:12:47 14:59:00 Encounter Mert 57576.1.1 it y of 3.412.2.7 [place] .3.305215 MD [facility] 2022-02-06 2022-02-06 Office Curly Fay 1.2.840.1 101 728948 [id number] Univers 13:20:00 13:40:00 Visit Savana Vizcarra 72166.1.1 ity of 3.412.2.7 [place] .3.716234 MD [facility] 2022-02-06 2022-02-06 Office EL Curly Fay 1.2.840.1 101 162891 [id number] Univers 13:20:00 13:40:00 Visit Savana Vizcarra 88173.1.1 ity of 3.412.2.7 [place] .3.025507 MD [facility] 2022-02-06 2022-02-06 Travel 1.2.840.1 1.2.295.206 3385 093470 Univers 00:00:00 00:00:00 24009.1.1 350.1.13.41 ity of 3.412.2.7 2.2.7.3.698 [place] .3.934348 084.8 MD [facility] 2022-02-06 2022-02-06 Travel 1.2.840.1 1.2.442.745 3195 [id number] Univers 00:00:00 00:00:00 39165.1.1 350.1.13.41 ity of 3.412.2.7 2.2.7.3.698 [place] .3.043488 084.8 MD [facility] 2022-02-05 2022-02-05 Follow-Up Spallone, 1.2.840.1 [id number] 10 [id number] Univers 13:00:00 13:37:40 [place] 76479.1.1 ity of 3.412.2.7 [place] .3.644002 MD [facility] 2022-02-05 2022-02-05 Follow-Up EL Spallone, 1.2.840.1 [id number] 10 [id number] Univers 13:00:00 13:37:40 [place] 55094.1.1 ity of 3.412.2.7 [place] .3.695811 MD [facility] 2022-02-05 2022-02-05 Travel 1.2.840.1 1.2.863.191 1250 328721 Univers 00:00:00 00:00:00 76820.1.1 350.1.13.41 ity of 3.412.2.7 2.2.7.3.698 [place] .3.298978 084.8 MD [facility] 2022-02-05 2022-02-05 Travel 1.2.840.1 1.2.910.658 0856 [id number] Univers 00:00:00 00:00:00 17417.1.1 350.1.13.41 ity of 3.412.2.7 2.2.7.3.698 [place] .3.630224 084.8 MD [facility] 2022-01-31 2022-01-31 Infusion Nya, 1.2.840.1 [id number] 1 [id number] Univers 09:30:00 16:30:00 Curly 48588.1.1 ity of 3.412.2.7 [place] .3.143774 MD [facility] 2022-01-31 2022-01-31 Infusion Nya, 1.2.840.1 [id number] 1 [id number] Univers 09:30:00 16:30:00 Curly 72072.1.1 ity of 3.412.2.7 [place] .3.842744 MD [facility] 2022-01-31 2022-01-31 Jc Meehan, 1.2.840.1 [id number] Univers 00:00:00 00:00:00 Gracy Valle 35777.1.1 ity of 3.412.2.7 [place] .3.066434 MD [facility] 2022-01-31 2022-01-31 [facility] Nya, 1.2.840.1 [id number] 10 [id number] Univers 00:00:00 00:00:00 Only Curly 61886.1.1 ity of 3.412.2.7 [place] .3.419906 MD [facility] 2022-01-31 2022-01-31 Travel 1.2.840.1 1.2.578.023 6136 716751 Univers 00:00:00 00:00:00 76682.1.1 350.1.13.41 ity of 3.412.2.7 2.2.7.3.698 [place] .3.744920 084.8 MD [facility] 2022-01-31 2022-01-31 Allymackenzie Meehan, 1.2.840.1 [id number] 9114 Univers 00:00:00 00:00:00 Gracy Valle 77179.1.1 ity of 3.412.2.7 [place] .3.288605 MD [facility] 2022-01-31 2022-01-31 Rina Fay, 1.2.840.1 [id number] 10 [id number] Univers 00:00:00 00:00:00 Only Curly 93962.1.1 ity of 3.412.2.7 [place] .3.640872 MD [facility] 2022-01-31 2022-01-31 Travel 1.2.840.1 1.2.680.642 0769 487223 Univers 00:00:00 00:00:00 63251.1.1 350.1.13.41 ity of 3.412.2.7 2.2.7.3.698 [place] .3.708955 084.8 MD [facility] 2022-01-30 2022-01-30 Rina De Leon, 1.2.840.1 [id number] 1097 [id number] Univers 00:00:00 00:00:00 Only Mert 84244.1.1 ity of 3.412.2.7 [place] .3.344084 MD [facility] 2022-01-30 2022-01-30 Rina De Leon 1.2.840.1 [id number] 1097 [id number] Univers 00:00:00 00:00:00 Only Mert 95269.1.1 ity of 3.412.2.7 [place] .3.448503 MD [facility] 2022-01-16 2022-01-16 Telephone Lilly, 1.2.840.1 [id number] 936 [id number] Univers 00:00:00 00:00:00 Mercedez L 79351.1.1 i ty of 3.412.2.7 [place] .3.099633 MD [facility] 2022-01-16 2022-01-16 Orders Nya, 1.2.840.1 [id number] 10 [id number] Univers 00:00:00 00:00:00 Only Curly 35132.1.1 ity of 3.412.2.7 [place] .3.484556 MD [facility] 2022-01-16 2022-01-16 Telephone Lilly, 1.2.840.1 [id number] 097 [id number] Univers 00:00:00 00:00:00 Mercedez L 21098.1.1 i ty of 3.412.2.7 [place] .3.104617 MD [facility] 2022-01-16 2022-01-16 Orders Nya, 1.2.840.1 [id number] 10 [id number] Univers 00:00:00 00:00:00 Only Curly 21763.1.1 ity of 3.412.2.7 [place] .3.736183 MD [facility] 2022-01-10 2022-01-10 Infusion Curly Fay 1.2.840.1 10 20130804 [id number] Univers 08:00:00 14:49:02 Johanne Galaviz 17071.1.1 ity of 3.412.2.7 [place] .3.506586 MD [facility] 2022-01-10 2022-01-10 Infusion Curly Patel 1.2.840.1 10 20130804 [id number] Univers 08:00:00 14:49:02 Johanne Galaviz 19242.1.1 ity of 3.412.2.7 [place] .3.604531 MD [facility] 2022-01-10 2022-01-10 Travel 1.2.840.1 1.2.965.032 6106 [id number] Univers 00:00:00 00:00:00 69937.1.1 350.1.13.41 ity of 3.412.2.7 2.2.7.3.698 [place] .3.947996 084.8 MD [facility] 2022-01-10 2022-01-10 Travel 1.2.840.1 1.2.854.258 7958 217458 Univers 00:00:00 00:00:00 16587.1.1 350.1.13.41 ity of 3.412.2.7 2.2.7.3.698 [place] .3.582553 084.8 MD [facility] 2022-01-09 2022-01-09 [facility], 1.2.840.1 [id number] 1096 [id number] Univers 06:19:12 23:59:00 Encounter Sattva S. 63346.1.1 ity of 3.412.2.7 [place] .3.175330 MD [facility] 2022-01-09 2022-01-09 [facility], 1.2.840.1 [id number] 1096 [id number] Univers 06:19:12 23:59:00 Encounter Sattva S. 28385.1.1 ity of 3.412.2.7 [place] .3.245298 MD [facility] 2022-01-09 2022-01-09 Office Dillan, 1.2.840.1 [id number] 9386 Univers 13:45:00 15:30:16 Visit Severo 92230.1.1 ity of P 3.412.2.7 [place] .3.477029 MD [facility] 2022-01-09 2022-01-09 Office WALT Munroe, 1.2.840.1 [id number] 7399 Univers 13:45:00 15:30:16 Visit Severo 35857.1.1 ity of P 3.412.2.7 [place] .3.846860 MD [facility] 2022-01-09 2022-01-09 Rina Munroe, 1.2.840.1 [id number] 992103 9748 Univers 00:00:00 00:00:00 Only Severo 77398.1.1 ity of P 3.412.2.7 [place] .3.607764 MD [facility] 2022-01-09 2022-01-09 Travel 1.2.840.1 1.2.185.427 2796 014528 Univers 00:00:00 00:00:00 30991.1.1 350.1.13.41 ity of 3.412.2.7 2.2.7.3.698 [place] .3.560184 084.8 MD [facility] 2022-01-09 2022-01-09 Rina Munroe, 1.2.840.1 [id number] 0557 Univers 00:00:00 00:00:00 Only Severo 48128.1.1 ity of P 3.412.2.7 [place] .3.185672 MD [facility] 2022-01-09 2022-01-09 Travel 1.2.840.1 1.2.794.999 6007 055043 Univers 00:00:00 00:00:00 65072.1.1 350.1.13.41 ity of 3.412.2.7 2.2.7.3.698 [place] .3.176319 084.8 MD [facility] 2022-01-08 2022-01-08 Ancillary Nya 1.2.840.1 [id number] Univers 14:30:00 17:00:00 Procedure Curly 78700.1.1 i ty of 3.412.2.7 [place] .3.047476 MD [facility] 2022-01-08 2022-01-08 Ancillary WALT Fay, 1.2.840.1 [id number] Univers 14:30:00 17:00:00 Procedure Curly 48290.1.1 i ty of 3.412.2.7 [place] .3.997413 MD [facility] 2022-01-08 2022-01-08 Travel 1.2.840.1 1.2.148.493 2576 650606 Univers 00:00:00 00:00:00 45832.1.1 350.1.13.41 ity of 3.412.2.7 2.2.7.3.698 [place] .3.736662 084.8 MD [facility] 2022-01-08 2022-01-08 Travel 1.2.840.1 1.2.797.781 7599 560386 Univers 00:00:00 00:00:00 91391.1.1 350.1.13.41 ity of 3.412.2.7 2.2.7.3.698 [place] .3.223011 084.8 MD [facility] 2021-12-28 2021-12-28 [facility], 1.2.840.1 [id number] [id number] 86044 Univers 10:38:14 23:59:00 Encounter Facundo 08004.1.1 it y of 3.412.2.7 [place] .3.147521 MD [facility] 2021-12-28 2021-12-28 [facility], 1.2.840.1 [id number] 48799 31363 Univers 10:38:14 23:59:00 Encounter Facundo 06883.1.1 it y of 3.412.2.7 [place] .3.584034 MD [facility] 2021-12-25 2021-12-25 Telephone Cox, 1.2.840.1 [id number] 1096 [id number] Univers 00:00:00 00:00:00 Maki Ames 05379.1.1 ity of 3.412.2.7 [place] .3.348849 MD [facility] 2021-12-25 2021-12-25 Documentat [facility], 1.2.840.1 [id number] 701 [id number] Univers 00:00:00 00:00:00 ion Maki Ames 50228.1.1 ity of 3.412.2.7 [place] .3.555749 MD [facility] 2021-12-25 2021-12-25 Rina Fay, 1.2.840.1 [id number] 10 [id number] Univers 00:00:00 00:00:00 Only Curly 35512.1.1 ity of 3.412.2.7 [place] .3.542151 MD [facility] 2021-12-25 2021-12-25 Telephone Kenny, 1.2.840.1 [id number] 1096 [id number] Univers 00:00:00 00:00:00 Maki Ames 85904.1.1 ity of 3.412.2.7 [place] .3.181902 MD [facility] 2021-12-25 2021-12-25 Documentat eKnny, 1.2.840.1 [id number] Univers 00:00:00 00:00:00 ion Maki Ames 95217.1.1 ity of 3.412.2.7 [place] .3.526215 MD [facility]8 [facility] 2021-12-25 2021-12-25 Rina Fay, 1.2.840.1 [id number] Univers 00:00:00 00:00:00 Only Curly 35982.1.1 ity of 3.412.2.7 [place] .3.497351 MD Boles8 [facility] 2021-12-24 2021-12-24 Telephone Kenny, 1.2.840.1 [id number] Univers 00:00:00 00:00:00 Maki Ames 54425.1.1 ity of 3.412.2.7 [place] .3.614905 MD [facility]8 [facility] 2021-12-24 2021-12-24 Orders Kenny, 1.2.840.1 [id number] Univers 00:00:00 00:00:00 Only Maki Ames 59672.1.1 ity of 3.412.2.7 [place] .3.104129 MD Smith [facility] 2021-12-24 2021-12-24 Telephone Kenny, 1.2.840.1 [id number] [id number] Univers 00:00:00 00:00:00 Maki Ames 57979.1.1 ity of 3.412.2.7 [place] .3.009140 MD Smith [facility] 2021-12-24 2021-12-24 Orders Kenny, 1.2.840.1 [id number] Univers 00:00:00 00:00:00 Only Mkai Ames 55234.1.1 ity of 3.412.2.7 [place] .3.163689 MD Smith [facility] 2021-12-21 2021[facility]12-23 [facility] [id number] Univers 19:32:00 14:59:00 Joey Lackey 93493.1.1 ity of Mo Veronica 3.412.2.7 [place] .3.089631 MD Smith [facility] 2021-12-21 2021-12-23 [facility] Phoebe S. 1.2.840.1 [id number] Univers 19:32:00 14:59:00 Encounter Joey Cervantes 61981.1.1 ity of Mo Veronica 3.412.2.7 [place] .3.884761 MD Smith [facility] 2021-12-22 2021-12-22 Travel 1.2.840.1 1.2.581.872 [id number] Univers 00:00:00 00:00:00 06239.1.1 350.1.13.41 ity of 3.412.2.7 [place]7.3.698 [place] .3.925704 08Bhargavi.8 MD Smith [facility] 2021-12-22 2021-12-22 Travel 1.2.840.1 1.2.781.236 [id number] [id number] Univers 00:00:00 00:00:00 84929.1.1 350.1.13.41 ity of 3.412.2.7 [place].3.698 [place] .3.214752 084.8 MD [facility]8 [facility] 2021-12-21 2021-12-21 Outpatient WALT PEREZ MDA [facility] [id number] 20:40:17 21:20:54 [facility] 2021-12-20 2021-12-20 Orders Marciano Mayer 1.2.840.1 [id number] Univers 00:00:00 00:00:00 Only 90597.1.1 ity of 3.412.2.7 [place] .3.109072 MD [facility] 2021-12-20 2021-12-20 Orders Nya 1.2.840.1 [id number] 10 [id number] Univers 00:00:00 00:00:00 Only Curly 85212.1.1 ity of 3.412.2.7 [place] .3.432763 MD Smith [facility] 2021-12-20 2021-12-20 Marciano Donald 1.2.840.1 [id number] 10 [id number] Univers 00:00:00 00:00:00 Only 81154.1.1 ity of 3.412.2.7 [place] .3.036647 MD Smith [facility] 2021-12-20 2021-12-20 Orders Nya 1.2.840.1 [id number] 10 [id number] Univers 00:00:00 00:00:00 Only Curly 69806.1.1 ity of 3.412.2.7 [place] .3.541327 MD Smith [facility] 2021-12-19 2021-12-19 Rina Fay 1.2.840.1 [id number] 10 [id number] Univers 00:00:00 00:00:00 Only Curly 46185.1.1 ity of 3.412.2.7 [place] .3Ramana822948 MD [facility]8 [facility] 2021-12-19 2021-12-19 Orders Nya, 1.2.840.1 [id number] 10 [id number] Univers 00:00:00 00:00:00 Only Curly 31479.1.1 ity of 3.412.2.7 [place] .3.971029 MD [facility]8 [facility] 2021-12-19 2021-12-19 Orders Nya, 1.2.840.1 [id number] 10 [id number] Univers 00:00:00 00:00:00 Only Curly 47420.1.1 ity of 3.412.2.7 [place] .3.727965 MD [facility]8 [facility] 2021-12-19 2021-12-19 Orders Nya, 1.2.840.1 [id number] 10 [id number] Univers 00:00:00 00:00:00 Only Curly 83258.1.1 ity of 3.412.2.7 [place] .3.773460 MD [facility]8 [facility] 2021-12-18 2021-12-18 [facility], 1.2.840.1 [id number] [facility] [place] [facility] 11:55:11 23:59:00 Encounter Severo 61226.1.1 ity of P 3.412.2.7 [place] .3.534906 MD [facility]8 [facility] 2021-12-18 2021-12-18 [facility] 1.2.840.1 [id number] Univers 11:55:11 23:59:00 Encounter Severo 91048.1.1 ity of P 3.412.2.7 [place] .3Ramana470269 MD [facility]8 [facility] 2021-12-18 2021-12-18 [facility] Francesca, 1.2.840.1 [id number] Univers 14:00:00 15:40:34 Visit Phoebe Gómez 51668.1.1 it y of 3.412.2.7 [place] .3.475460 MD Smith [facility] 2021-12-18 2021-12-18 Office WALT Perez 1.2.840.1 [id number] Univers 14:00:00 15:40:34 Visit Phoebe Gómez 61941.1.1 it y of 3.412.2.7 [place] .3.597241 MD Smith [facility] 2021-12-18 2021-12-18 Travel 1.2.840.1 1.2.998.762 [id number] Univers 00:00:00 00:00:00 37259.1.1 350.1.13.41 ity of 3.412.2.7 [place].3.698 [place] .3.858378 084.8 MD Smith [facility] 2021-12-18 2021-12-18 Yodit uMnoz 1.2.840.1 [id number] 10 [id number] Univers 00:00:00 00:00:00 35837.1.1 ity of 3.412.2.7 [place] .3.422483 MD Smith [facility] 2021-12-18 2021-12-18 Travel 1.2.840.1 1.2.511.879 [id number] [id number] Univers 00:00:00 00:00:00 97220.1.1 350.1.13.41 ity of 3.412.2.7 2.[place]7.3.698 [place] .3.981761 084.8 [facility] [facility] 2021-12-18 2021-12-18 Yodit Munoz 1.2.840.1 [id number] 10 [id number] Univers 00:00:00 00:00:00 04977.1.1 ity of 3.412.2.7 [place] .3.636029 MD [facility] 2021-12-13 2021-12-13 Office Rod Munguia 1.2.840.1 [id number] Methodi 11:15:00 11:15:00 Visit Mauro Brown 81172.1.[address] 3.430.2.7 Hospit a .3.723125 l .8 2021-12-13 2021-12-13 Office Rod Munguia 1.2.840.1 [id number] Methodi 11:15:00 11:15:00 Visit Mauro Brown 18225.1.[address] 3.430.2.7 Hospit a .3.789380 l .8 2021-12-13 2021-12-13 Travel 1.2.840.1 1.2.652.445 0245 [id number] Methodi 00:00:00 00:00:[address] 3.430.2.7 0.2.7.3.698 Ho spita .3.501139 084.8 l .8 2021-12-13 2021-12-13 Travel 1.2.840.1 1.2.403.375 9751 150525 Methodi 00:00:00 00:00:[address] 3.430.2.7 0.2.7.3.698 Ho spita .3.776981 084.8 l .8 2021-12-11 2021-12-11 Follow-Up Spallone, 1.2.840.1 [id number] 10 [id number] [facility] [place] [facility] 14:30:00 16:40:10 Augusta 41245.1.1 ity of 3.412.2.7 [place] .3.057479 MD Boles8 [facility] 2021-12-11 2021-12-11 Follow-Up EL Spallone, 1.2.840.1 [id number] 10 [id number] [facility] [place] [facility] 14:30:00 16:40:10 [place] 67483.1.1 ity of 3.412.2.7 [place] .3.571316 MD Boles8 [facility] 2021-12-11 2021-12-11 Travel 1.2.840.1 1.2.096.822 0946 [id number] Univers 00:00:00 00:00:00 24502.1.1 350.1.13.41 ity of 3.412.2.7 [place]7.3.698 [place] .3.007[place] 084.8 MD [facility] 2021-12-11 2021-12-11 Travel 1.2.840.1 1.2.610.542 5598 513594 Univers 00:00:00 00:00:00 20590.1.1 350.1.13.41 ity of 3.412.2.7 2.[place].7.3.698 [place] .3.891872 084.8 MD Boles8 [facility] 2021-12-07 2021-12-07 [facility] Esme, 1.2.840.1 [id number] Univers 10:58:36 23:59:00 Encounter Facundo 64479.1.1 it y of 3.412.2.7 [place] .3.499995 MD Boles8 [facility] 2021-12-07 2021-12-07 [facility] WALT Victoria, 1.2.840.1 [id number] Univers 10:58:36 23:59:00 Encounter Facundo 73527.1.1 it y of 3.412.2.7 [place] .3.816339 MD Boles8 [facility] 2021-12-03 2021-12-03 Office Lucinda Antoine 1.2.840.1 [id number] Univers 14:20:00 14:35:17 Visit Michelle Ruiz 09246.1.1 it y of 3.412.2.7 [place] .3.962711 MD Boles8 [facility] 2021-12-03 2021-12-03 Office Lucinda Fierro 1.2.840.1 [id number] Univers 14:20:00 14:35:17 Visit Michelle Ruiz 22201.1.1 it y of 3.412.2.7 [place] .3.787845 MD [facility] 2021-12-03 2021-12-03 Outpatient LUCINDA FIERRO [facility] [id number] 11:54:02 11:54:02 [facility] 2021-12-03 2021-12-03 Travel 1.2.840.1 1.2.825.631 5428 [id number] Univers 00:00:00 00:00:00 77206.1.1 350.1.13.41 ity of 3.412.2.7 2.2.7.3.698 [place] .3.361936 084.8 MD Boles8 [facility] 2021-12-03 2021-12-03 Travel 1.2.840.1 1.2.238.535 2961 060655 [facility] [place] [facility] 00:00:00 00:00:00 88869.1.1 350.1.13.41 ity of 3.412.2.7 2.2.7.3.698 [place] .3.389039 084.8 MD [facility] 2021-11-21 2021-11-26 [facility] 101 [id number] Univers 19:08:00 18:42:00 Encounter Phoebe Perez S. 31011.1.1 ity of Nolberto Soares 3.412.2.7 [place] .3.617595 MD [facility] 2021-11-21 2021-11-26 [facility].2.840.1 101 701022 [id number] Univers 19:08:00 18:42:00 Encounter Phoebe Perez S. 23529.1.1 ity of Nolberto Soares 3.412.2.7 [place] .3.806913 MD [facility] 2021-11-26 2021-11-26 Lucinda Blanchard 1.2.840.1 [id number] 10 [id number] Univers 00:00:00 00:00:00 Only M 96135.1.1 ity of 3.412.2.7 [place] .3.056583 MD .8 [facility] 2021-11-26 2021-11-26 Orders Lucinda Antoine 1.2.840.1 [id number] 10 [id number] Univers 00:00:00 00:00:00 Only Adolfo 32688.1.1 ity of 3.412.2.7 [place] .3.937292 MD Boles8 [facility] 2021-11-23 2021-11-23 Inpatient LUCINDA FIERRO [facility] [id number] 12:24:39 20:10:20 Jaspal o 2021-11-23 2021-11-23 Anesthesia Patel Flor. 1.2.840.1 [id number] 2 [id number] Univers 13:28:00 14:26:00 Event Claudia Boyle 44594.1.1 ity of 3.412.2.7 [place] .3.727147 MD Boles8 [facility] 2021-11-23 2021-11-23 Anesthesia Patel Flor 1.2.840.1 [id number] 2 [id number] Univers 13:28:00 14:26:00 Event Claudia Boyle 96228.1.1 ity of 3.412.2.7 [place] .3.144912 MD [facility] 2021-11-23 2021-11-23 Orders Nya, 1.2.840.1 [id number] 10 [id number] Univers 00:00:00 00:00:00 Only Curly 07909.1.1 ity of 3.412.2.7 [place] .3.039335 MD [facility] 2021-11-23 2021-11-23 Orders Nya, 1.2.840.1 [id number] 10 [id number] Univers 00:00:00 00:00:00 Only Curly 05194.1.1 ity of 3.412.2.7 [place] .3.447913 MD [facility] 2021-11-21 2021-11-21 Hospital [employer], 1.2.840.1 [id number] Univers 08:00:00 19:07:00 Encounter Facundo 02972.1.1 it y of 3.412.2.7 [place] .3Ramana976966 MD Boles8 [facility] 2021-11-21 2021-11-21 Hospital WALT Victoria, 1.2.840.1 [id number] Univers 08:00:00 19:07:00 Encounter Facundo 87148.1.1 it y of 3.412.2.7 [place] .3.585277 .8 [facility] 2021-11-21 2021-11-21 Office Dillan, 1.2.840.1 [id number] Univers 13:00:00 13:57:40 Visit Severo 26773.1.1 ity of P 3.412.2.7 [place] .3.763255 MD Boles8 [facility] 2021-11-21 2021-11-21 Office WALT Munroe, 1.2.840.1 [id number] Univers 13:00:00 13:57:40 Visit Severo 19699.1.1 ity of P 3.412.2.7 [place] .3Ramana764887 MD Boles8 [facility] 2021-11-21 2021-11-21 Infusion Nya, 1.2.840.1 [id number] 1 [id number] Univers 11:15:00 11:45:00 Curly 09171.1.1 ity of 3.412.2.7 [place] .3Ramana843404 MD Boles8 [facility] 2021-11-21 2021-11-21 Infusion WALT Fay, 1.2.840.1 [id number] 1 [id number] Univers 11:15:00 11:45:00 Curly 43973.1.1 ity of 3.412.2.7 [place] .3Ramana091097 MD Boles8 [facility] 2021-11-21 2021-11-21 Outpatient WALT QUICK MDA MDA [id number] 10:41:32 11:19:34 DARNELL saucedo 2021-11-21 2021-11-21 Travel 1.2.840.1 1.2.178.224 2749 [id number] Univers 00:00:00 00:00:00 12169.1.1 350.1.13.41 ity of 3.412.2.7 2.[place].7.3.698 [place] .3.203358 084.8 MD [facility] 2021-11-21 2021-11-21 Orders Dillan, 1.2.840.1 [id number] Univers 00:00:00 00:00:00 Only Severo 45524.1.1 ity of P 3.412.2.7 [place] .3.718235 MD [facility] 2021-11-21 2021-11-21 Telephone Elver Johnson 1.2.840.1 [id number] 10 [id number] Univers 00:00:00 00:00:00 Candida T 20366.1.1 ity of 3.412.2.7 [place] .3.936933 MD [facility] 2021-11-21 2021-11-21 Orders Dillan, 1.2.840.1 [id number] Univers 00:00:00 00:00:00 Only Severo 80638.1.1 ity of P 3.412.2.7 [place] .3.377282 MD [facility] 2021-11-21 2021-11-21 Telephone Elver Johnson 1.2.840.1 [id number] 10 [id number] Univers 00:00:00 00:00:00 Candida T 70663.1.1 ity of 3.412.2.7 [place] .3.985709 MD Boles8 [facility] 2021-11-21 2021-11-21 Travel 1.2.840.1 1.2.789.460 8916 [id number] Univers 00:00:00 00:00:00 96564.1.1 350.1.13.41 ity of 3.412.2.7 2.2.7.3.698 [place] .3.565620 084.8 MD [facility] 2021-11-19 2021-11-19 [facility], 1.2.840.1 [id number] 10 [id number] Univers 12:00:00 23:59:00 Encounter Valerie Aragon 13014.1.1 ity of 3.412.2.7 [place] .3.908172 MD Boles8 [facility] 2021-11-19 2021-11-19 [facility], 1.2.840.1 [id number] 10 [id number] Univers 12:00:00 23:59:00 Encounter Valerie Aragon 89956.1.1 ity of 3.412.2.7 [place] .3.914388 MD Boles8 [facility] 2021-11-19 2021-11-19 [facility] Jeremías Jacklyn 1.2.840.1 [id number] 10 [id number] Univers 10:14:02 11:59:00 Encounter Eren East 86186.1.1 ity of 3.412.2.7 [place] .3.090461 MD [facility] 2021-11-19 2021-11-19 [facility] WALT Jeremías Jacklyn 1.2.840.1 [id number] 10 [id number] Univers 10:14:02 11:59:00 Encounter Eren East 61364.1.1 ity of 3.412.2.7 [place] .3.059644 MD Smith [facility] 2021-11-19 2021-11-19 Travel 1.2.840.1 1.2.737.782 7576 [id number] Univers 00:00:00 00:00:00 50262.1.1 350.1.13.41 ity of 3.412.2.7 2.2.7.3.698 [place] .3.192460 084.8 MD [facility] 2021-11-19 2021-11-19 Travel 1.2.840.1 1.2.237.672 0185 [id number] Univers 00:00:00 00:00:00 46908.1.1 350.1.13.41 ity of 3.412.2.7 2.2.7.3.698 [place] .3.109710 084.8 MD Boles8 [facility] 2021-11-16 2021-11-16 [facility] Aniyah, 1.2.840.1 [id number] [id number] Univers 00:00:00 00:00:00 Only Valerie Aragon 65535.1.1 it y of 3.412.2.7 [place] .3.154992 MD Boles8 [facility] 2021-11-16 2021-11-16 [facility] Aniyah, 1.2.840.1 [id number] Univers 00:00:00 00:00:00 Only Valerie Aragon 77340.1.1 it y of 3.412.2.7 [place] .3.886063 MD Boles8 [facility] 2021-11-15 2021-11-15 Rina Fay, 1.2.840.1 [id number] 10 [id number] Univers 00:00:00 00:00:00 Only Curly 18314.1.1 ity of 3.412.2.7 [place] .3.218885 MD Boles8 [facility] 2021-11-15 2021-11-15 [facility] Nya, 1.2.840.1 [id number] 10 [id number] Univers 00:00:00 00:00:00 Only Curly 40943.1.1 ity of 3.412.2.7 [place] .3.202984 MD Boles8 [facility] 2021-11-14 2021-11-14 [facility] 1.2.840.1 101 [id number] Univers 09:00:00 23:59:00 Encounter Jacklyn Veronica 20320.1.1 ity of 3.412.2.7 [place] .3.679654 MD Boles8 [facility] 2021-11-14 2021-11-14 [facility] Severo Munroe P 1.2.840.1 101 [id number] Univers 09:00:00 23:59:00 Encounter Jacklyn Veronica 06290.1.1 ity of 3.412.2.7 [place] .3.557467 MD [facility] 2021-11-14 2021-11-14 Office Dillan, 1.2.840.1 [id number] Univers 14:00:00 14:15:00 Visit Severo 29300.1.1 ity of P 3.412.2.7 [place] .3.501665 MD Boles8 [facility] 2021-11-14 2021-11-14 Office Dillan, 1.2.840.1 [id number] Univers 14:00:00 14:15:00 Visit Severo 37112.1.1 ity of P 3.412.2.7 [place] .3.503299 MD [facility] 2021-11-14 2021-11-14 Orders Nya 1.2.840.1 [id number] 10 [id number] Univers 00:00:00 00:00:00 Only Curly 22192.1.1 ity of 3.412.2.7 [place] .3.907113 MD [facility] 2021-11-14 2021-11-14 Jacklyn Vanegas 1.2.840.1 [id number] Univers 00:00:00 00:00:00 Only 34972.1.1 ity of 3.412.2.7 [place] .3.269417 MD [facility] 2021-11-14 2021-11-14 Rina Fay 1.2.840.1 [id number] 10 [id number] Univers 00:00:00 00:00:00 Only Curly 02710.1.1 ity of 3.412.2.7 [place] .3.129258 MD [facility] 2021-11-14 2021-11-14 Jacklyn Vanegas 1.2.840.1 [id number] 003 [id number] Univers 00:00:00 00:00:00 Only 43675.1.1 ity of 3.412.2.7 [place] .3.418794 MD Boles8 [facility] 2021-10-22 2021-11-09 [facility] Valerie Torres 1.2.840.1 [id number] Univers 09:44:00 06:03:00 Encounter Poli Recinos 59592.1.1 ity [facility] 3.412.2.7 [place] Yodit Colunga .3.028614 Luis Antonio Sweeney [facility] 2021-10-22 2021-11-09 [facility] Valerie Torres 1.2.840.1 [id number] Univers 09:44:00 06:03:00 Encounter Poli Recinos 30033.1.1 ity [facility] 3.412.2.7 Yodit Rucker .3.153715 Luis Antonio Sweeney [facility] 2021-11-08 2021-11-09 Inpatient EL SONY MDA MDA [id number] 23:44:47 00:14:58 Arnulfo SONG 2021-11-09 2021-11-09 Orders Nya, 1.2.840.1 [id number] 10 [id number] Univers 00:00:00 00:00:00 Only Curly 58707.1.1 ity of 3.412.2.7 [place] .3.534614 .8 [facility] 2021-11-09 2021-11-09 Orders Nya, 1.2.840.1 [id number] 10 [id number] Univers 00:00:00 00:00:00 Only Curly 83354.1.1 ity of 3.412.2.7 [place] .3.923016 MD Boles8 [facility] 2021-11-08 2021-11-08 Inpatient EL SONY MDA MDA [id number] 20:25:32 20:58:10 Arnulfo SONG 2021-11-08 2021-11-08 Inpatient EL SONY MDA MDA [id number] 17:58:05 18:36:07 Arnulfo SONG n 2021-11-08 2021-11-08 Inpatient [facility] MDA [id number] 15:27:33 16:31:13 Arnulfo SONG n 2021-11-08 2021-11-08 Orders Nya, 1.2.840.1 [id number] 10 [id number] Univers 00:00:00 00:00:00 Only Curly 70574.1.1 ity of 3.412.2.7 [place] .3.642367 MD Boles8 [facility] 2021-11-08 2021-11-08 Orders Nya, 1.2.840.1 [id number] 10 [id number] Univers 00:00:00 00:00:00 Only Curly 86954.1.1 ity of 3.412.2.7 [place] .3.103601 MD Boles8 [facility] 2021-11-07 2021-11-07 Inpatient [facility] MDA [id number] 03:02:08 03:26:03 Arnulfo SONG n 2021-11-07 2021-11-07 Orders Abdelrahman, 1.2.840.1 [id number] Univers 00:00:00 00:00:00 Only Liish C 55233.1.1 ity of 3.412.2.7 [place] .3.863619 MD Boles8 [facility] 2021-11-07 2021-11-07 Orders Abdelrahman, 1.2.840.1 [id number] Univers 00:00:00 00:00:00 Only Lija C 13027.1.1 ity of 3.412.2.7 [place] .3.083058 MD Boles8 [facility] 2021-11-07 2021-11-07 Orders Abdelrahman, 1.2.840.1 [id number] Univers 00:00:00 00:00:00 Only Lija C 22625.1.1 ity of 3.412.2.7 [place] .3.254396 MD Boles8 [facility] 2021-11-07 2021-11-07 Orders Abdelrahman, 1.2.840.1 [id number] Univers 00:00:00 00:00:00 Only Darnell C 78604.1.1 ity of 3.412.2.7 [place] .3.243526 MD Boles8 [facility] 2021-11-06 2021-11-06 Orders Puneet, 1.2.840.1 [id number] Univers 00:00:00 00:00:00 Only Archana 73764.1.1 it y of 3.412.2.7 [place] .3.569020 MD Boles8 [facility] 2021-11-06 2021-11-06 Orders Puneet, 1.2.840.1 [id number] Univers 00:00:00 00:00:00 Only Archana 26757.1.1 it y of 3.412.2.7 [place] .3.656926 MD [facility] 2021-11-01 2021-11-01 Anesthesia Sriram Corea 1.2.840.1 [id number] Univers 15:37:00 17:58:00 Event Claudia Boyle 41745.1.1 ity of 3.412.2.7 [place] .3.276054 MD [facility] 2021-11-01 2021-11-01 Anesthesia Sriram Corea 1.2.840.1 [id number] Univers 15:37:00 17:58:00 Event Claudia Boyle 06019.1.1 ity of 3.412.2.7 [place] .3.117596 MD [facility] 2021-11-01 2021-11-01 Surgery Natalia, 1.2.840.1 [id number] Univers 14:30:00 17:25:00 Brett 97133.1.1 ity of 3.412.2.7 [place] .3.640498 MD [facility] 2021-11-01 2021-11-01 Surgery Konishi, 1.2.840.1 [id number] [facility] [place] [facility] 14:30:00 17:25:00 Tsuyoshi 72431.1.1 ity of 3.412.2.7 [place] .3.909105 .8 [facility] 2021-10-30 2021-10-30 Inpatient WALT KEANUYODIT MAK MDA [id number] MD 01:59:31 02:08:48 [facility] 2021-10-29 2021-10-30 Inpatient YODIT VELA MAK MDA [id number] MD 23:34:40 00:26:03 [facility] lewis 2021-10-30 2021-10-30 Prep for Gourmelon, 1.2.840.1 [id number] 10 [id number] Univers 00:00:00 00:00:00 Surgery Nikki 20039.1.1 ity of 3.412.2.7 [place] .3.600304 .8 [facility] 2021-10-30 2021-10-30 Prep for Gourmelon, 1.2.840.1 [id number] 10 [id number] Univers 00:00:00 00:00:00 Surgery Nikki 44695.1.1 ity of 3.412.2.7 [place] .3.789623 .8 [facility] 2021-10-28 2021-10-28 Inpatient WALT COLUNGAYODIT MAK MDA [id number] MD 17:42:55 18:00:57 Jaspal o lewis 2021-10-28 2021-10-28 Inpatient WALT KEANUYODIT MAK MDA [id number] MD 14:07:23 14:31:42 Jaspal o lewis 2021-10-28 2021-10-28 Inpatient YODIT VELA MAK MDA [id number] MD 10:47:26 11:41:45 Jaspal o lewis 2021-10-26 2021-10-26 Orders Roramona, 1.2.840.1 [id number] 0008 Univers 00:00:00 00:00:00 Only Cesar S 04097.1.1 ity of 3.412.2.7 [place] .3.494863 .8 [facility] 2021-10-26 2021-10-26 Orders Cecile, 1.2.840.1 [id number] Univers 00:00:00 00:00:00 Only Cesar Ocampo 26227.1.1 ity of 3.412.2.7 [place] .3.296558 .8 [facility] 2021-10-24 2021-10-24 Inpatient WALT QUICK MDA MDA [id number] 13:08:06 19:50:[facility] 2021-10-24 2021-10-24 Anesthesia Favian Hill 1.2.840.1 101 [id number] Univers 16:48:00 17:42:00 Event Nadja Benites 26290.1.1 ity of 3.412.2.7 [place] .3.891590 .8 [facility] 2021-10-24 2021-10-24 Anesthesia Favian Hill 1.2.840.1 101 [id number] [facility] [place] [facility] 16:48:00 17:42:00 Event Nadja Benites 75907.1.1 ity of 3.412.2.7 [place] .3.859195 .8 [facility] 2021-10-24 2021-10-24 Inpatient YODIT VELA MDA MDA [id number] 05:22:27 06:00:40 [facility] 2021-10-24 2021-10-24 Inpatient YODIT VELA MDA MDA [id number] 02:52:02 03:16:54 Jaspal o lewis 2021-10-24 2021-10-24 Orders Asher 1.2.840.1 [id number] Univers 00:00:00 00:00:00 Only Mouna Taylor 72537.1.1 ity of 3.412.2.7 [place] .3.502678 .8 [facility] 2021-10-24 2021-10-24 Orders Asher 1.2.840.1 [id number] Univers 00:00:00 00:00:00 Only Mouna Taylor 93118.1.1 ity of 3.412.2.7 [place] .3.591486 MD Boles8 [facility] 2021-10-23 2021-10-23 Inpatient YODIT VELA [facility] MDA [id number] MD 12:16:09 12:27:58 Jaspal o n 2021-10-23 2021-10-23 Inpatient YODIT VELA [facility] MDA [id number] 08:32:41 10:15:35 Jaspal o n 2021-10-22 2021-10-22 Consult Emile 1.2.840.1 [id number] Univers 08:00:00 09:21:15 Jaren Valle 34044.1.1 ity of 3.412.2.7 [place] .3.707945 MD [facility] 2021-10-22 2021-10-22 Consult WALT Baptiste, 1.2.840.1 [id number] 7787 Univers 08:00:00 09:21:15 Jaren Valle 10266.1.1 ity of 3.412.2.7 [place] .3.280533 MD Smith [facility] 2021-10-22 2021-10-22 Rina Girard 1.2.840.1 [id number] Univers 00:00:00 00:00:00 Only Jony 10692.1.1 ity of 3.412.2.7 [place] .3.848771 MD Smith [facility] 2021-10-22 2021-10-22 Travel 1.2.840.1 1.2.002.186 1364 [id number] Univers 00:00:00 00:00:00 30261.1.1 350.1.13.41 ity of 3.412.2.7 2[place]7.3.698 [place] .3.051136 084.8 MD [facility] 2021-10-22 2021-10-22 Rina Girard, 1.2.840.1 [id number] Univers 00:00:00 00:00:00 Only Jony 62583.1.1 ity of 3.412.2.7 [place] .3.793008 MD [facility] 2021-10-22 2021-10-22 Travel 1.2.840.1 1.2.843.240 0456 [id number] Univers 00:00:00 00:00:00 04117.1.1 350.1.13.41 ity of 3.412.2.7 2.[place]7.3.698 [place] .3.336298 084.8 MD Boles8 [facility] 2021-10-19 2021-10-19 Hospital [employer], 1.2.840.1 [id number] Univers 23:59:00 23:59:00 Encounter Facundo 18930.1.1 it y of 3.412.2.7 [place] .3.389604 MD [facility] 2021-10-19 2021-10-19 Hospital EL [employer], 1.2.840.1 [id number] 79139 Univers 23:59:00 23:59:00 Encounter Facundo 82643.1.1 it y of 3.412.2.7 [place] .3.309943 MD [facility] 2021-10-18 2021-10-18 Orders [employer], 1.2.840.1 [id number] 2384 Univers 00:00:00 00:00:00 Only Facundo 90962.1.1 ity of 3.412.2.7 [place] .3.885240 MD Smith [facility] 2021-10-18 2021-10-18 Orders [employer], 1.2.840.1 [id number] 7087 Univers 00:00:00 00:00:00 Only Facundo 94122.1.1 ity of 3.412.2.7 [place] .3.725935 MD Smith [facility] 2021-10-17 2021-10-17 [facility] Severo Munroe 1.2.840.1 101 [id number] Univers 13:24:41 23:59:00 Encounter Scarlett Ortega 21009.1.1 ity of 3.412.2.7 [place] .3.317058 MD [facility] 2021-10-17 2021-10-17 Hospital WALT Munroe Severo P 1.2.840.1 101 [id number] Univers 13:24:41 23:59:00 Encounter Scarlett Ortega 26009.1.1 ity of 3.412.2.7 [place] .3.352471 MD Boles8 [facility] 2021-10-17 2021-10-17 Office Dillan, 1.2.840.1 [id number] 5240 Univers 14:30:00 16:23:46 Visit Severo 30991.1.1 ity of P 3.412.2.7 [place] .3.969885 MD Boles8 [facility] 2021-10-17 2021-10-17 Office WALT Munroe, 1.2.840.1 [id number] Univers 14:30:00 16:23:46 Visit Severo 18115.1.1 ity of P 3.412.2.7 [place] .3.507062 MD Boles8 [facility] 2021-10-17 2021-10-17 [facility], 1.2.840.1 [id number] Univers 12:24:05 13:23:00 Encounter Susan R 86283.1.1 ity of 3.412.2.7 [place] .3.270585 MD Boles8 [facility] 2021-10-17 2021-10-17 [facility], 1.2.840.1 [id number] Univers 12:24:05 13:23:00 Encounter Susan R 38737.1.1 ity of 3.412.2.7 [place] .3.903487 MD Smith [facility] 2021-10-17 2021-10-17 Travel 1.2.840.1 1.2.893.140 2042 [id number] Univers 00:00:00 00:00:00 27577.1.1 350.1.13.41 ity of 3.412.2.7 [place].3.698 [place] .3.042501 084.8 MD Smith [facility] 2021-10-17 2021-10-17 Documentat Bg Sepulvedau, 1.2.840.1 [id number] Univers 00:00:00 00:00:00 ion Paula 97077.1.1 ity of 3.412.2.7 [place] .3.194315 MD Smith [facility] 2021-10-17 2021-10-17 Travel 1.2.840.1 1.2.659.873 4104 [id number] Univers 00:00:00 00:00:00 67662.1.1 350.1.13.41 ity of 3.412.2.7 [place]7.3.698 [place] .3.663258 084.8 MD Smith [facility] 2021-10-17 2021-10-17 Documentat Bg Sepulvedau, 1.2.840.1 [id number] Univers 00:00:00 00:00:00 ion Paula 28467.1.1 ity of 3.412.2.7 [place] .3.512885 MD Smith [facility] 2021-10-16 2021-10-16 Follow-Up Spallone, 1.2.840.1 [id number] 10 [id number] Univers 14:30:00 14:30:00 [place] 27753.1.1 ity of 3.412.2.7 [place] .3.494678 MD Smith [facility] 2021-10-16 2021-10-16 Follow-Up EL Spallone, 1.2.840.1 [id number] Univers 14:30:00 14:30:00 [place] 83688.1.1 ity of 3.412.2.7 [place] .3.381438 MD Smith [facility] 2021-10-16 2021-10-16 Ancillary Spallone, 1.2.840.1 [id number] 10 [id number] Univers 09:20:00 11:45:00 Procedure [place] 76052.1.1 it y of 3.412.2.7 [place] .3.133226 MD Smith [facility] 2021-10-16 2021-10-16 Ancillary EL Debbie, 1.2.840.1 [id number] 10 [id number] Univers 09:20:00 11:45:00 Procedure [place] 52825.1.1 it y of 3.412.2.7 [place] .3.883534 MD Smith [facility] 2021-10-16 2021-10-16 Travel 1.2.840.1 1.2.539.336 2041 [id number] Univers 00:00:00 00:00:00 12796.1.1 350.1.13.41 ity of 3.412.2.7 2.[place]7.3.698 [place] .3.243408 084.Bonnie Smith [facility] 2021-10-16 2021-10-16 Travel 1.2.840.1 1.2.716.734 7259 [id number] Univers 00:00:00 00:00:00 24881.1.1 350.1.13.41 ity of 3.412.2.7 2.[place]7.3.698 [place] .3.501430 084.Bonnie Smith [facility] 2021-10-10 2021-10-10 Office Susan Keller R 1.2.840.1 [id number] Univers 10:00:00 11:44:18 Visit Dimple Walter 11080.1.1 ity of 3.412.2.7 [place] .3.396229 MD Smith [facility] 2021-10-10 2021-10-10 Office Susan Melendrez R 1.2.840.1 [id number] Univers 10:00:00 11:44:18 Visit Dimple Walter 65209.1.1 ity of 3.412.2.7 [place] .3.278798 MD Smith [facility] 2021-10-10 2021-10-10 Outpatient WALT KELLER [facility] [id number] 07:42:19 07:42:19 SUSANRICH Tourejayla saucedo 2021-10-10 2021-10-10 Orders [employer], 1.2.840.1 [id number] Univers 00:00:00 00:00:00 Only Facundo 01883.1.1 ity of 3.412.2.7 [place] .3.768127 MD Smith [facility] 2021-10-10 2021-10-10 Travel 1.2.840.1 1.2.695.616 4829 [id number] Univers 00:00:00 00:00:00 75093.1.1 350.1.13.41 ity of 3.412.2.7 2.[place]7.3.698 [place] .3.398723 084.8 MD Smith [facility] 2021-10-10 2021-10-10 Orders [employer]er, 1.2.840.1 [id number] Univers 00:00:00 00:00:00 Only Facundo 01026.1.1 ity of 3.412.2.7 [place] .3.038837 MD Smith [facility] 2021-10-10 2021-10-10 Travel 1.2.840.1 1.2.957.828 1042 [id number] Univers 00:00:00 00:00:00 23893.1.1 350.1.13.41 ity of 3.412.2.7 2.[place]7.3.698 [place] .3.744455 084.8 MD Smith [facility] 2021-10-03 2021-10-03 [facility] Severo Munroe 1.2.840.1 101 [id number] Univers 07:53:15 23:59:00 Lavern [place] 15979.1.1 ity of 3.412.2.7 [place] .3.970531 MD Smith [facility] 2021-10-03 2021-10-03 [facility] Severo Quiñones Madhu 1.2.840.1 [id number] Univers 07:53:15 23:59:00 Encounter Lavern Johnson 41010.1.1 ity of 3.412.2.7 [place] .3.310529 MD Smith [facility] 2021-10-03 2021-10-03 Office Susan Keller 1.2.840.1 [id number] Univers 09:00:00 10:07:30 Visit Tahir Thompson 45944.1.1 ity of 3.412.2.7 [place] .3.473936 MD Boles8 [facility] 2021-10-03 2021-10-03 Office Susan Melendrez 1.2.840.1 [id number] Univers 09:00:00 10:07:30 Visit Tahir Thompson 88310.1.1 ity of 3.412.2.7 [place] .3.595840 MD Boles8 [facility] 2021-10-03 2021-10-03 Outpatient WALT KELLER MDA MDA [id number] 07:02:41 07:02:41 SUSAN vieira 2021-10-03 2021-10-03 Rina Girard, 1.2.840.1 [id number] Univers 00:00:00 00:00:00 Only Jony 94665.1.1 ity of 3.412.2.7 [place] .3.634842 MD Smith [facility] 2021-10-03 2021-10-03 Travel 1.2.840.1 1.2.940.401 1229 [id number] Univers 00:00:00 00:00:00 53098.1.1 350.1.13.41 ity of 3.412.2.7 2.[place].3.698 [place] .3.144[place] 084.8 MD Boles8 [facility] 2021-10-03 2021-10-03 Rina Girard 1.2.840.1 [id number] Univers 00:00:00 00:00:00 Only Jony 41847.1.1 ity of 3.412.2.7 [place] .3.123108 MD Smith [facility] 2021-10-03 2021-10-03 Travel 1.2.840.1 1.2.293.592 4246 [id number] Univers 00:00:00 00:00:00 04740.1.1 350.1.13.41 ity of 3.412.2.7 2.[place].7.3.698 [place] .3.648734 084.8 MD Smith [facility] 2021-09-30 2021-09-30 Telephone Chanel Gonzalez 1.2.840.1 [id number] Univers 00:00:00 00:00:00 Medina 45395.1.1 ity of 3.412.2.7 [place] .3.836312 MD Smith [facility] 2021-09-30 2021-09-30 Telephone Chanel Gonzalez 1.2.840.1 [id number] Univers 00:00:00 00:00:00 Medina 55945.1.1 ity of 3.412.2.7 [place] .3.995039 MD Smith [facility] 2021-09-29 2021-09-29 Telephone Manning, 1.2.840.1 [id number] [id number] Univers 00:00:00 00:00:00 Jodi Almaguer 43722.1.1 ity of 3.412.2.7 [place] .3.955227 MD Smith [facility] 2021-09-29 2021-09-29 Telephone Manning, 1.2.840.1 [id number] 1093 [id number] Univers 00:00:00 00:00:00 Jodi Almaguer 30373.1.1 ity of 3.412.2.7 [place] .3.147276 MD Smith [facility] 2021-09-11 2021-09-28 [facility] Cornelius Jordan 1.2.840.1 10 [id number] Univers 11:47:00 17:33:00 Encounter Ana Phan 99316.1.1 ity of Crescencio Cooley V. 3.412.2.7 [place] Francis Lizarraga .3.472852 Roberto Bee .8 Severo Kam, [facility] 2021-09-11 2021-09-28 [facility] Cornelius Jordan .2.840.1 10 [id number] Univers 11:47:00 17:33:00 Encounter Ana Phan 14156.1.1 ity of Crescencio Cooley V. 3.412.2.7 [place] CosmoCristinaFrancis robertson .3.332300 Roberto Bee .8 Severo Kam, [facility] 2021-09-28 2021-09-28 Orders Tarik, 1.2.840.1 [id number] Univers 00:00:00 00:00:00 Only Susan R 60153.1.1 it y of 3.412.2.7 [place] .3.504772 .8 [facility] 2021-09-28 2021-09-28 Orders Tarik, 1.2.840.1 [id number] Univers 00:00:00 00:00:00 Only Susan R 47804.1.1 it y of 3.412.2.7 [place] .3.589926 .8 [facility] 2021-09-28 2021-09-28 Orders Tarik, 1.2.840.1 [id number] Univers 00:00:00 00:00:00 Only Susan R 79896.1.1 it y of 3.412.2.7 [place] .3.845978 MD Smith [facility] 2021-09-28 2021-09-28 Orders Tarik, 1.2.840.1 [id number] Univers 00:00:00 00:00:00 Only Susan R 59127.1.1 it y of 3.412.2.7 [place] .3Ramana750488 MD Boles8 [facility] 2021-09-27 2021-09-27 Orders Tarik 1.2.840.1 [id number] Univers 00:00:00 00:00:00 Only Susan R 15914.1.1 it y of 3.412.2.7 [place] .3.006865 MD Boles8 [facility] 2021-09-27 2021-09-27 Orders Tarik, 1.2.840.1 [id number] Univers 00:00:00 00:00:00 Only Susan R 08066.1.1 it y of 3.412.2.7 [place] .3.165189 MD Boles8 [facility] 2021-09-27 2021-09-27 Rina Keller 1.2.840.1 [id number] Univers 00:00:00 00:00:00 Only Susan R 00572.1.1 it y of 3.412.2.7 [place] .3.958790 MD Boles8 [facility] 2021-09-27 2021-09-27 Rina Keller 1.2.840.1 [id number] Univers 00:00:00 00:00:00 Only Susan R 27005.1.1 it y of 3.412.2.7 [place] .3.826199 MD Boles8 [facility] 2021-09-27 2021-09-27 Rina Santiago 1.2.840.1 [id number] Univers 00:00:00 00:00:00 Only , Misti 79797.1.1 i ty of J 3.412.2.7 [place] .3.101111 MD Boles8 [facility] 2021-09-27 2021-09-27 Rina Keller 1.2.840.1 [id number] Univers 00:00:00 00:00:00 Only Susan R 62143.1.1 it y of 3.412.2.7 [place] .3.704882 MD Boles8 [facility] 2021-09-27 2021-09-27 Orders Tarik, 1.2.840.1 [id number] Univers 00:00:00 00:00:00 Only Susan R 45091.1.1 it y of 3.412.2.7 [place] .3.923916 MD Boles8 [facility] 2021-09-27 2021-09-27 Orders Tarik, 1.2.840.1 [id number] Univers 00:00:00 00:00:00 Only Susan R 55727.1.1 it y of 3.412.2.7 [place] .3.672232 MD Boles8 [facility] 2021-09-27 2021-09-27 Orders Tarik, 1.2.840.1 [id number] Univers 00:00:00 00:00:00 Only Susan R 05382.1.1 it y of 3.412.2.7 [place] .3.150567 MD Boles8 [facility] 2021-09-27 2021-09-27 Rina Santiago 1.2.840.1 [id number] 10 [id number] Univers 00:00:00 00:00:00 Only , Misti 73702.1.1 i ty of J 3.412.2.7 [place] .3.864170 MD Smith [facility] 2021-09-25 2021-09-25 Rina Santiago 1.2.840.1 [id number] 10 [id number] Univers 00:00:00 00:00:00 Only , Misti 79678.1.1 i ty of J 3.412.2.7 [place] .3.221709 MD Boles8 [facility] 2021-09-25 2021-09-25 Orders Pamela 1.2.840.1 [id number] 10 [id number] Univers 00:00:00 00:00:00 Only , Misti 64060.1.1 i ty of J 3.412.2.7 [place] .3.308550 MD Boles8 [facility] 2021-09-24 2021-09-24 Orders Spallone, 1.2.840.1 [id number] [id number] Univers 00:00:00 00:00:00 Only [place]a 62364.1.1 ity of 3.412.2.7 [place] .3.336235 .8 [facility] 2021-09-24 2021-09-24 Orders Spallone, 1.2.840.1 [id number] [id number] Univers 00:00:00 00:00:00 Only [place] 01073.1.1 ity of 3.412.2.7 [place] .3.371712 MD Boles8 [facility] 2021-09-23 2021-09-23 Inpatient WALT MUNROE MDA MDA [id number] 93 12:37[facility]20 [facility] 2021-09-23 Inpatient WALT MUNROE MDA MDA [id number] MD 08:49:51 09[facility]14:[facility] 2021-09-22 2021-09-22 Inpatient WALT MUNROE MDA MDA [id number] MD 22:09:42 [facility]16[facility] 2021-09-22 Rina Almaguer 1.2.840.1 [id number] 0005 Univers 00:00:00 00:00:00 Only Kiarra 46950.1.1 ity of [place] 3.412.2.7 [place] .3.667729 .8 [facility] 2021-09-22 2021-09-22 Orders Tripp 1.2.840.1 [id number] Univers 00:00:00 00:00:00 Only Kiarra 80500.1.1 ity of [place] 3.412.2.7 [place] .3.982902 MD Boles8 [facility] 2021-09-21 2021-09-21 [facility], 1.2.840.1 [id number] [id number] [facility] [place] [facility] 11:24:00 23:59:00 Encounter Bam 15114.1.1 it y of Karel 3.412.2.7 [place] .3.541282 MD Boles8 [facility] 2021-09-21 2021-09-21 [facility], 1.2.840.1 [id number] [facility] [place] [facility] 11:24:00 23:59:00 Encounter Bam 33438.1.1 it y of Karel 3.412.2.7 [place] .3.137714 MD Boles8 [facility] 2021-09-21 2021-09-21 Orders Yo, Malaika 1.2.840.1 [id number] Univers 00:00:00 00:00:00 Only 71693.1.1 ity of 3.412.2.7 [place] .3.280382 MD Boles8 [facility] 2021-09-21 2021-09-21 Orders Nura, 1.2.840.1 [id number] [id number] Univers 00:00:00 00:00:00 Only Cassie 62382.1.1 ity of Priya 3.412.2.7 [place] .3.900209 MD Boles8 [facility] 2021-09-21 2021-09-21 Orders Malaika Ram 1.2.840.1 [id number] Univers 00:00:00 00:00:00 Only 17214.1.1 ity of 3.412.2.7 [place] .3.134233 MD Boles8 [facility] 2021-09-21 2021-09-21 Orders Nura 1.2.840.1 [id number] 1093 [id number] Univers 00:00:00 00:00:00 Only Cassie 63560.1.1 ity of Priya 3.412.2.7 [place] .3.275816 MD Boles8 [facility] 2021-09-19 2021-09-19 Inpatient ETCHEGARAY- [facility] MDA 1093 [id number] 19:59:45 20:16:21 Jaspal HUBBARD 2021-09-19 2021-09-19 Inpatient WALT LAMBERT- MDA MDA [id number] [id number] 18:00:42 19:01:41 Jaspal HUBBARD 2021-09-17 2021-09-17 Inpatient WALT ELLIOTT MDA MDA [id number] 22:12:00 22:22:49 BELKIS saucedo 2021-09-16 2021-09-16 Inpatient CRESCENCIO LINARES MDA MDA [id number] [id number] 03:41:28 04:09:40 Jaspaljayla saucedo 2021-09-14 2021-09-14 Inpatient CRESCENCIO LINARES MDA MDA 1092 [id number] 16:36:21 16:53:15 Jaspal saucedo 2021-09-14 2021-09-14 Rina Cooley, 1.2.840.1 [id number] Univers 00:00:00 00:00:00 Only Pavel-Zarina 29573.1.1 ity of 3.412.2.7 [place] .3.001072 MD Boles8 [facility] 2021-09-14 2021-09-14 Rina Cooley, 1.2.840.1 [id number] 7396 Univers 00:00:00 00:00:00 Only Pavel-Zarina 14824.1.1 ity of 3.412.2.7 [place] .3.931142 MD Smith [facility] 2021-09-12 2021-09-12 Travel 1.2.840.1 1.2.095.092 4452 [id number] [facility] [place] [facility] 00:00:00 00:00:00 41084.1.1 350.1.13.41 ity of 3.412.2.7 2.[place].7.3.698 [place] .3.797321 084.8 MD Smith [facility] 2021-09-12 2021-09-12 Travel 1.2.840.1 1.2.500.476 3371 [id number] [facility] [place] [facility] 00:00:00 00:00:00 77743.1.1 350.1.13.41 ity of 3.412.2.7 2.2.7.3.698 [place] .3.489902 084.8 .8 [facility] 2021-09-11 2021-09-11 Travel 1.2.840.1 1.2.060.311 6839 660402 Univers 00:00:00 00:00:00 39498.1.1 350.1.13.41 ity of 3.412.2.7 2.[place].7.3.698 [place] .3.665201 084.8 .8 [facility] 2021-09-11 2021-09-11 Travel 1.2.840.1 1.2.711.622 3326 [id number] Univers 00:00:00 00:00:00 85232.1.1 350.1.13.41 ity of 3.412.2.7 2.2.7.3.698 [place] .3.422870 084.8 .8 [facility] 2021-09-03 2021-09-03 Office Rod Munguia 1.2.840.1 [id number] Methodi 11:15:00 11:15:00 Visit Mauro Brown 56238.1.[address] 3.430.2.7 Hospit a .3.875539 l .8 2021-09-03 2021-09-03 Office Rod Munguia 1.2.840.1 [id number] Methodi 11:15:00 11:15:00 Visit Mauro Brown 24579.1.[address] 3.430.2.7 Hospit a .3.165226 l .8 2021-09-03 2021-09-03 Travel 1.2.840.1 1.2.653.788 4086 [id number] Methodi 00:00:00 00:00:[address] 3.430.2.7 0.2.7.3.698 Ho spita .3.814963 084.8 l .8 2021-09-03 2021-09-03 Travel 1.2.840.1 1.2.162.445 3364 253124 Methodi 00:00:00 00:00:[address] 3.430.2.7 0.2.7.3.698 Ho spita .3.120351 084.8 l .8 2021-07-27 2021-07-27 Telephone Jose, 1.2.840.1 [id number] 2099 [id number] Methodi 00:00:00 00:00:[address] 3.430.2.7 Hospit a .3.953655 l .8 2021-07-27 2021-07-27 Telephone Garcia, 1.2.840.1 [id number] 2099 [id number] Methodi 00:00:00 00:00:[address] 3.430.2.7 Hospit a .3.003402 l .8 2021-07-25 2021-07-25 [facility], .2.840.1 [id number] Methodi 14:09:06 23:59:00 Encounter Mauro C. 02913.1.[address] 3.430.2.7 Hospit a .3.356727 l .8 2021-07-25 2021-07-25 [facility], 1.2.840.1 [id number] Methodi 14:09:06 23:59:00 Encounter Mauro C. 98948.1.[address] 3.430.2.7 Hospit a .3.677269 l .8 2021-07-25 2021-07-25 [facility], 1.2.840.1 [id number] Methodi 09:31:07 14:08:00 Encounter Mauro C. 63485.1.[address] 3.430.2.7 Hospit a .3.628283 l .8 2021-07-25 2021-07-25 [facility], 2.840.1 [id number] Methodi 09:31:07 14:08:00 Encounter Mauro C. 03458.1.[address] 3.430.2.7 Hospit a .3.353317 l .8 2021-07-25 2021-07-25 Travel 1.2.840.1 1.2.719.544 4057 [id number] Methodi 00:00:00 00:00:[address] 3.430.2.7 0.2.7.3.698 Ho spita .3.723442 084.8 l .8 2021-07-25 2021-07-25 Travel 1.2.840.1 1.2.078.574 7985 140235 Methodi 00:00:00 00:00:[address] 3.430.2.7 0.2.7.3.698 Ho spita .3.477226 084.8 l .8 2021-07-11 2021-07-11 Telephone Garcia, 1.2.840.1 [id number] 2099 548691 Methodi 00:00:00 00:00:[address] 3.430.2.7 Hospit a .3.807486 l .8 2021-07-11 2021-07-11 Telephone Garcia, 1.2.840.1 [id number] Methodi 00:00:00 00:00:[address] 3.430.2.7 Hospit a .3.731557 l .8 2021-07-10 2021-07-10 [facility], 1.2.840.1 [id number] Methodi 13:53:44 23:59:00 Encounter Mauro Danielson 11965.1.[address] 3.430.2.7 Hospit a .3.811369 l .8 2021-07-10 2021-07-10 [facility], 1.2.840.1 [id number] Methodi 13:53:44 23:59:00 Encounter Mauro Danielson 35832.1.[address] 3.430.2.7 Hospit a .3.031822 l .8 2021-07-10 2021-07-10 [facility], 1.2.840.1 [id number] Methodi 13:53:34 23:59:00 Encounter Mauro Danielson 89986.1.[address] 3.430.2.7 Hospit a .3.252725 l .8 2021-07-10 2021-07-10 [facility], 1.2.840.1 [id number] Methodi 13:53:34 23:59:00 Encounter Mauro Ames. 03316.1.[address] 3.430.2.7 Hospit a .3.215424 l .8 2021-07-10 2021-07-10 Travel 1.2.840.1 1.2.479.646 2660 084633 Methodi 00:00:00 00:00:[address] 3.430.2.7 0.2.7.3.698 Ho spita .3.208892 084.8 l .8 2021-07-10 2021-07-10 Travel 1.2.840.1 1.2.033.535 1817 434396 Methodi 00:00:00 00:00:[address] 3.430.2.7 0.2.7.3.698 Ho spita .3.690090 084.8 l .8 2021-06-18 2021-06-18 Travel 1.2.840.1 1.2.892.661 6391 326811 Methodi 00:00:00 00:00:[address] 3.430.2.7 0.2.7.3.698 Ho spita .3.619966 084.8 l .8 2021-06-18 2021-06-18 Orders Garcia, 1.2.840.1 [id number] 0696 Methodi 00:00:00 00:00:00 Only Inge 71372.1.[address] 3.430.2.7 Hospit a .3.016622 l .8 2021-06-12 2021-06-12 Orders Jose, 1.2.840.1 [id number] 0204 Methodi 00:00:00 00:00:00 Only Inge 89136.1.[address] 3.430.2.7 Hospit a .3.394328 l .8 2021-06-01 2021-06-01 Telephone Jose, 1.2.840.1 [id number] Methodi 00:00:00 00:00:[address] 3.430.2.7 Hospit a .3.645503 l .8 2021-05-25 2021-05-25 Telephone Jose, 1.2.840.1 [id number] 2099012 Methodi 00:00:00 00:00:[address] 3.430.2.7 Hospit a .3.022927 l .8 2021-05-25 2021-05-25 Travel 1.2.840.1 1.2.209.515 0867 263852 Methodi 00:00:00 00:00:[address] 3.430.2.7 0.2.7.3.698 Ho spita .3.133020 084.8 l .8 2021-05-23 2021-05-23 Office Rod Munguia 1.2.840.1 [id number] Methodi 09:10:00 09:25:44 Visit Mauro Brown 49214.1.[address] 3.430.2.7 Hospit a .3.586303 l .8 2021-05-23 2021-05-23 Travel 1.2.840.1 1.2.892.117 9927 587828 Methodi 00:00:00 00:00:[address] 3.430.2.7 0.2.7.3.698 Ho spita .3.890149 084.8 l .8 2021-05-23 2021-05-23 Outpatient KEVIN [facility] [id number] [place] 00:00:00 00:00:00 MAURO [address] 2021-05-22 2021-05-22 Outpatient R [facility] [id number] Univers 18:16:49 23:59:00 NEIL Aragon [facility] 2021-05-22 2021-05-22 [facility] 1.2.840.114 9 [id number] Univers 18:16:49 23:59:00 Encounter Neil aragon 350.1.13.10 it[place] [id number] [facility] [address] 2021-05-15 2021-05-15 Outpatient R [facility] 088 [id number] Univers 16:15:00 16:15:00 NEIL Aragon [facility] 2021-05-15 2021-05-15 Train Clerk 2, Adc Lab [facility] 1.2.840.114 [id number] Univers 16:15:00 16:15:00 Visit Neil Levine 350.1.1 3.10 ity of [place] [id number] [facility] [address] [facility] 2021-02-01 2021-02-01 [facility] 1.2.840.114 [id number] 046 Univers 07:43:00 10:05:00 Encounter Mo Alvarez 350.1.13.10 ity of [place] [id number] [facility] [address] 2021-02-01 2021-02-01 Surgery [facility] 1.2.840.114 [id number] Univers 08:44:00 09:21:00 Mo Alvarez 350.1.13.10 i ty of [place] [id number] [facility] [address] 2021-01-30 2021-01-30 Laboratory Only, Adc Test [facility] 1.2.840. 114 [id number] Univers 10:53:15 11:08:15 Only Mo Valencia Antonio 350.1.1 3.10 ity of [place].2.686 [place] [id number] [facility] [address] 2021-01-30 2021-01-30 Outpatient R [facility] [id number] Univers 10:30:00 10:30:00 MO manzano [facility] 2021-01-30 2021-01-30 Orders Doctor LIZZETH 1.2.840.114 [id number] Univers 00:00:00 00:00:00 Only Unassigned, KIMBERLEE 350.1.13.10 ity of [facility] 4.2.7.2.686 Andrew as [id number] [facility] [address] 2020-12-21 2020-12-21 Hospital [facility] 1.2.840.114 [id number] 083 Univers 10:29:00 13:18:00 Encounter Mo Antonio 350.1.13.10 ity of [place] [id number] [facility] [address] 2020-12-21 2020-12-21 Surgery [facility] 1.2.840.114 [id number] Univers 12:37:00 13:12:00 Mo Alvarez 350.1.13.10 i ty of [place]2.[place] [id number] [facility] [address] 2020-12-21 2020-12-21 [facility] [id number] Univers 10:29:00 10:29:00 MO manzano [facility] 2020-12-21 2020-12-21 Orders Doctor MOREAU 1.2.840.114 [id number] Univers 00:00:00 00:00:00 Only Unassigned, KIMBERLEE 350.1.13.10 ity of [place] [facility] 4.2.7.2.686 Andrew as [id number] [address] 2020-12-20 2020-12-20 Outpatient R ANNIE, [facility] [id number] Univers 08:15:00 08:15:00 MO natacha [facility] 2020-12-18 2020-12-18 Laboratory Only, Adc Test [facility] 1.2.840. 114 [id number] Univers 10:24:42 10:39:42 Only Mo Valencia 350.1.1 3.10 ity [facility] 4.2.7.2.686 [facility] [id number] [address] 2020-12-18 2020-12-[address] [facility] [id number] Univers 10:30:00 10:30:00 MO manzano [facility] 2020-12-12 2020-12-12 Train Clerk Chuy, Adc Lab Main [facility] 1.2.8 40.114 [id number] Univers 11:06:12 11:21:12 Visit Mo Valencia 350.1.1 3.10 ity [facility] 4.2.7.2.686 [facility] [id number] [address] dic[address] 2020-12-12 2020-12-[address] [facility] [id number] Univers 10:45:00 10:45:00 MO manzano [facility] 2020-12-12 2020-12-12 Orders Doctor MOREAU 1.2.840.114 [id number] Univers 00:00:00 00:00:00 Only Unassigned, KIMBERLEE 350.1.13.10 ity of [facility] 4.2.7.2.686 [facility] [id number] [address] 2020-03-02 2020-03-02 Ambulatory nullFlavo MNA [id number] Memoria 16:45:00 16:45:00 Pre-Reg r Neurology 08 l Ro[place] 2020-03-02 2020-03-02 Ambulatory nullFlavo MNA [id number] Memoria 16:45:00 16:45:00 [facility] 2020-03-02 2020-03-02 Outpatient MIRACLE Hall [facility] [id number] [id number] 10:45:00 10:45:00 Ilia 08 Mirza 2020-02-23 2020-02-23 Outpatient MHIE MHIE [id number] Memoria 09:30:00 09:30:00 08 l Juanjose 2019-11-23 2019-11-23 Outpatient MHIE MHIE [id number] Memoria 09:15:00 09:15:00 06 l [place] 2019-11-23 2019-11-23 Outpatient MHIE MHIE [id number] Memoria 09:15:00 09:15:00 06 l Juanjose 2019-11-23 2019-11-23 Outpatient MHIE MHIE [id number] Memoria 09:15:00 09:15:00 07 l [place] 2019-11-23 2019-11-23 Outpatient MHIE MHIE [id number] Memoria 09:15:00 09:15:00 07 l [place] 2019-10-29 2019-10-30 Outpt Diag nullFlavo [facility] [id number] Memoria 19:38:00 04:59:00 Services r Outpatient 01 l Imaging [facility] 2019-10-29 2019-10-30 Outpt Diag nullFlavo [facility] [id number] Memoria 19:38:00 04:59:00 Services r Outpatient 01 l Imaging Juanjose [place] 2019-10-29 2019-10-29 Outpatient LYUBOV Hall OIP [id number] 14:38:00 23:59:00 Ilia 01 Mirza 2019-10-15 2019-10-16 Outpatient nullFlavo MNA [id number] Memoria 13:15:00 04:59:59 r Neurology 05 l Roane [place] 2019-10-15 2019-10-16 Outpatient nullFlavo MNA [id number] Memoria 13:15:00 04:59:59 r Neurology 05 l Pearl [place] 2019-10-15 2019-10-15 Outpatient MIRACLE Hall [facility] [id number] 08:15:00 23:59:59 Ilia 05 Mirza 2019-10-15 2019-10-15 Outpatient MHIE MHIE [id number] Memoria 08:15:00 08:15:00 05 harley [place] 2019-10-11 2019-10-12 Outpt Diag nullFlavo [facility] [id number] Memoria 15:08:00 04:59:00 Services r Outpatient 00 l Imaging [facility] 2019-10-11 2019-10-12 Outpt Diag nullFlavo [facility] [id number] Memoria 15:08:00 04:59:00 Services r Outpatient 00 l Imaging [facility] 2019-10-11 2019-10-11 Outpatient Isabel OIP MHOIP [id number] 10:08:00 23:59:00 Ilia 00 Mirza 2019-10-06 2019-10-07 Outpatient nullFlavo MNA [id number] Memoria 16:15:00 04:59:59 r Neurology 04 l Pearl [place] 2019-10-06 2019-10-07 Outpatient nullFlavo MNA [id number] Memoria 16:15:00 04:59:59 r Neurology 04 l Pearl Juanjose 2019-10-06 2019-10-06 [id number] 11:15:00 23:59:59 Ilia 04 Mirza 2019-10-06 2019-10-06 Outpatient MHIE IE [id number] Memoria 11:15:00 11:15:00 04 l [place] 2019-07-08 2019-07-08 Ambulatory nullFlavo MNA [id number] Memoria 15:30:00 15:30:00 Pre-Reg r Neurology 03 l Pearl [place] 2019-07-08 2019-07-08 Ambulatory nullFlavo MNA [id number] Memoria 15:30:00 15:30:00 Pre-Reg r Neurology 03 l Roane [place] 2019-07-08 2019-07-08 Outpatient MHIE IE [id number] Memoria 10:30:00 10:30:00 03 harley [place] 2019-07-08 2019-07-08 [id number] 10:30:00 10:30:00 Ilia 03 Mirza 2019-05-19 2019-05-19 Ambulatory nullFlavo MNA [id number] Memoria 14:15:00 14:15:00 Pre-Reg r Neurology 02 l Roane Juanjose 2019-05-19 2019-05-19 Ambulatory nullFlavo MNA [id number] Memoria 14:15:00 14:15:00 Pre-Reg r Neurology 02 l Roanealice Jaquezann 2019-05-19 2019-05-19 Outpatient DAVID ARIELLE [id number] Memoria 08:15:00 08:15:00 02 harley [place] 2019-05-19 2019-05-19 [id number] 08:15:00 08:15:00 Ilia 02 Mirza 2019-04-22 2019-04-23 Outpatient nullFlavo MNA [id number] Memoria 20:30:00 05:59:59 r Neurology 01 harley [place] 2019-04-22 2019-04-23 Outpatient nullFlavo MNA [id number] Memoria 20:30:00 05:59:59 r Neurology 01 harley Sow 2019-04-22 2019-04-22 Outpatient MIRACLE [facility] [id number] 14:30:00 23:59:59 Ilia Mirza 2019-04-22 2019-04-22 Outpatient DAVID HERNANDEZ [id number] Memoria 14:30:00 14:30:00 harley Sow 2019-02-11 2019-02-11 Outpatient C JULIET, [facility] [place] [id number] [place] 16:11:00 23:59:00 WERNER [facility] Results Test Description Test Time Test Comments [...] electronically signed by Pathologist:Kwesi Tristan MD, PhD #[id number] [facility] [id number] 22:30:43 Test Item Value Reference Range Interpretation Comments Final Report (test No growth code = 8488) Path Review - Immunity and antibiotic Bottle/Isolator use may render culture (test code = 8499) negative. Ongoing infection requires repeat culture. The results have been reviewed and electronically signed by Pathologist:Kwesi Tristan MD, PhD #[id number] [facility] [id number] 10:46:35 Test Item Value Reference Range Interpretation [...] par ameters are outside rep ortable range [facility] [id number] 10:46:35 Test Item Value Reference Range Interpretation [...] par ameters are outside rep ortable range [facility] [id number] 10:46:35 Test Item Value Reference Range Interpretation [...] par ameters are outside rep ortable range [facility] [facility] Voozuxsky3113-31-67 10:46:35 Test Item Value Reference Range Interpretation [...] par ameters are outside rep ortable range [facility] 2022-06-25 10:46:33 Test Item Value Reference Range Interpretation Comments eGFR (test code = 110 See_Comment The eGFRcr [place] calculated with 65086-1) the 2020 CKD-EP I creatinine equation using [...] CKD. [Automated mess age] The system which [employer] nerated this result transmit elbert reference range: >=60 mL/ min/1.73 sq. m. The referenc e range was not used to int erpret this result as nataly l/abnormal. [facility] Center[facility] Rate 2022-06-25 10:46:33 Test Item Value Reference Range Interpretation Comments eGFR (test code = 110 See_Comment The eGFRcr [place] calculated with 30069-6) the 2020 CKD-EP I creatinine equation using [...] CKD. [Automated mess age] The system which [employer] nerated this result transmit elbert reference range: >=60 mL/ min/1.73 sq. m. The referenc e range was not used to int erpret this result as nataly l/abnormal. [facility] CenterGl[facility] Rate 2022-06-25 10:46:33 Test Item Value Reference Range Interpretation Comments eGFR (test code = 110 See_Comment [place]GFRcr [place] 99797-5) the 2020 CKD-EP I creatinine equation using [...] int erpret this result as nataly l/abnormal. [facility] Rate 2022-06-25 10:46:33 Test Item Value Reference Range Interpretation Comments eGFR (test code = 110 See_Comment The eGFRcr is calculated with 88552-8) the 2020 CKD-EP I creatinine equation using [...] int erpret this result as nataly l/abnormal. [facility] Zgkl6950-05-12 10:46:32 Test Item Value Reference Range Interpretation Comments Uric Acid (test code = 3084-1) 3.3 mg/dL 3.4-7.0 L Lab Interpretation (test code = Abnormal 37033-4) [facility] Mqua4773-81-67 10:46:32 Test Item Value Reference Range Interpretation Comments Uric Acid (test code = 3084-1) 3.3 mg/dL 3.4-7.0 L Lab Interpretation (test code = Abnormal 36324-0) [facility] Opev0720-38-83 10:46:32 Test Item Value Reference Range Interpretation Comments Uric Acid (test code = 3084-1) 3.3 mg/dL 3.4-7.0 L Lab Interpretation (test code = Abnormal 25492-9) [facility] Nxjn2191-84-24 10:46:32 Test Item Value Reference Range Interpretation Comments Uric Acid (test code = 3084-1) 3.3 mg/dL 3.4-7.0 L Lab Interpretation (test code = Abnormal 34542-4) [facility] CenterMagnesium Dvvmo7302-25-22 10:46:31 Test Item Value Reference Range Interpretation Comments Magnesium (test code = 34159-6) 1.7 mg/dL 1.6-2.6 [facility] CenterMagnesium Kjjji2965-66-58 10:46:31 Test Item Value Reference Range Interpretation Comments Magnesium (test code = 42253-6) 1.7 mg/dL 1.6-2.6 [facility] CenterMagnesium Ydlfi7277-87-66 10:46:31 Test Item Value Reference Range Interpretation Comments Magnesium (test code = 36919-7) 1.7 mg/dL 1.6-2.6 [facility] CenterMagnesium Ubglb1575-04-99 10:46:31 Test Item Value Reference Range Interpretation Comments Magnesium (test code = 23152-9) 1.7 mg/dL 1.6-2.6 [facility] CenterAlkaline Ogwopnushyc0982-14-62 10:46:30 Test Item Value Reference Range Interpretation Comments Alk Phos (test code = 6768-6) 64 U/L 40-129 [facility] CenterAlkaline Jgcjtidloql1808-34-90 10:46:30 Test Item Value Reference Range Interpretation Comments Alk Phos (test code = 6768-6) 64 U/L 40-129 [facility] CenterAlkaline Baewrexfvoa0231-06-33 10:46:30 Test Item Value Reference Range Interpretation Comments Alk Phos (test code = 6768-6) 64 U/L 40-129 [facility] CenterAlkaline Byfemxgrpkt8765-21-58 10:46:30 Test Item Value Reference Range Interpretation Comments Alk Phos (test code = 6768-6) 64 U/L 40-129 [facility] CenterAlanine Pggtrmvssvnjlnwq2074-84-93 10:46:29ALT<5<=41 U/[facility]UT [facility]Al[facility] Hrvafzzgqpzhoklu8509-79-33 10:46:29ALT<5<=41 U/[facility]UT [facility]Un[facility] Alanine Neryccfgwsdcdnyo4536-24-88 10:46:29ALT<5<=41 U/LUT [facility]ENTERUn[facility] KingwoodAlanine Qmljjaghrfoqaxcy2375-22-04 10:46:29ALT<5<=41 U/LUT [facility]ENTERUn[facility] [place].Serum Xiinxugrpb0382-48-07 10:46:28 Test Item Value Reference Range Interpretation Comments Creatinine (test code = 2160-0) 0.51 mg/dL 0.67-1.17 L Lab Interpretation (test code = Abnormal 37977-0) [facility].Serum Jxlzdteqea7897-45-69 10:46:28 Test Item Value Reference Range Interpretation Comments Creatinine (test code = 2160-0) 0.51 mg/dL 0.67-1.17 L Lab Interpretation (test code = Abnormal 48159-1) [facility].Serum Buvpjuvuoz7665-36-37 10:46:28 Test Item Value Reference Range Interpretation Comments Creatinine (test code = 2160-0) 0.51 mg/dL 0.67-1.17 L Lab Interpretation (test code = Abnormal 88164-7) [facility].Serum Shvpmtbwhl5385-08-84 10:46:28 Test Item Value Reference Range Interpretation Comments Creatinine (test code = 2160-0) 0.51 mg/dL 0.67-1.17 L Lab Interpretation (test code = Abnormal 51955-5) [facility] CenterBUN2023-[facility]-28 10:46:27 Test Item Value Reference Range Interpretation Comments BUN (test code = 3094-0) 9 mg/dL 10-18 [facility] CenterBUN2023-02-28 10:46:27 Test Item Value Reference Range Interpretation Comments BUN (test code = 3094-0) 9 mg/dL 10-18 [facility]BUN2023-02-28 10:46:27 Test Item Value Reference Range Interpretation Comments BUN (test code = 3094-0) 9 mg/dL 10-18 [facility] CenterBUN2023-02-28 10:46:27 Test Item Value Reference Range Interpretation Comments BUN (test code = 3094-0) 9 mg/dL 10-18 [facility] CenterAnion Xiw4977-66-57 10:46:26 Test Item Value Reference Range Interpretation Comments Anion Gap (test code 8 See_Comment [Autom ated message] The = 70674-0) system which ge nerated this result transmit elbert reference range : 4 - 14 mEq/L. The refe rence range was not used to interpret this result as normal/abnormal . [facility] CenterAnion Ufe3663-95-02 10:46:26 Test Item Value Reference Range Interpretation Comments Anion Gap (test code 8 See_Comment [Autom ated message] The = 93420-9) system which ge nerated this result transmit elbert reference range : 4 - 14 mEq/L. The refe rence range was not used to interpret this result as normal/abnormal . [facility] CenterAnion Osb7751-00-28 10:46:26 Test Item Value Reference Range Interpretation Comments Anion Gap (test code 8 See_Comment [Autom ated message] The = 25944-5) system which ge nerated this result transmit elbert reference range : 4 - 14 mEq/L. The refe rence range was not used to interpret this result as normal/abnormal . [facility] CenterAnion Nwy8941-77-55 10:46:26 Test Item Value Reference Range Interpretation Comments Anion Gap (test code 8 See_Comment [Autom ated message] The = 91456-8) system which ge nerated this result transmit elbert reference range : 4 - 14 mEq/L. The refe rence range was not used to interpret this result as normal/abnormal . [facility] CenterChloride Awczq4372-19-45 10:46:25 Test Item Value Reference Range Interpretation Comments Chloride (test code = 105 See_Comment [Auto mated message] The ) system which ge nerated this result tra nsmitted reference range : 98 - 107 mEq/L. The refe rence range was not u sed to interpret this result as normal/abnormal . [facility] CenterChloride Faheq8271-49-92 10:46:25 Test Item Value Reference Range Interpretation Comments Chloride (test code = 105 See_Comment [Auto mated message] The ) system which ge nerated this result tra nsmitted reference range : 98 - 107 mEq/L. The refe rence range was not u sed to interpret this result as normal/abnormal . [facility] CenterChloride Lmkjl5340-63-29 10:46:25 Test Item Value Reference Range Interpretation Comments Chloride (test code = 105 See_Comment [Auto mated message] The ) system which ge nerated this result tra nsmitted reference range : 98 - 107 mEq/L. The refe rence range was not u sed to interpret this result as normal/abnormal . [facility] CenterChloride Gumsm6298-27-40 10:46:25 Test Item Value Reference Range Interpretation Comments Chloride (test code = 105 See_Comment [Auto mated message] The ) system which ge nerated this result tra nsmitted reference range : 98 - 107 mEq/L. The refe rence range was not u sed to interpret this result as normal/abnormal . [facility]2023-02-28 10:46:24 Test Item Value Reference Range Interpretation Comments Potassium Lvl (test 3.8 See_Comment [Automa elbert message] The code = 2823-3) system which generated this result tra nsmitted reference range : 3.5 - 5.1 mEq/L. The reference range was not u sed to interpret this result as normal/abnormal . [facility] 10:46:24 Test Item Value Reference Range Interpretation Comments Potassium Lvl (test 3.8 See_Comment [Automa elbert message] The code = 2823-3) system which generated this result tra nsmitted reference range : 3.5 - 5.1 mEq/L. The reference range was not u sed to interpret this result as normal/abnormal . [facility]2023-02-28 10:46:24 Test Item Value Reference Range Interpretation Comments Potassium Lvl (test 3.8 See_Comment [Automa elbert message] The code = 2823-3) system which generated this result tra nsmitted reference range : 3.5 - 5.1 mEq/L. The reference range was not u sed to interpret this result as normal/abnormal . [facility]2023-02-28 10:46:24 Test Item Value Reference Range Interpretation Comments Potassium Lvl (test 3.8 See_Comment [Automa elbert message] The code = 2823-3) system which generated this result tra nsmitted reference range : 3.5 - 5.1 mEq/L. The reference range was not u sed to interpret this result as normal/abnormal . [facility]2023-02-28 10:46:23 Test Item Value Reference Range Interpretation Comments Sodium Lvl (test code 139 See_Comment [Auto mated message] The = 2951-2) system which ge nerated this result tra nsmitted reference range : 136 - 145 mEq/L. The refe rence range was not used to interpret this result as normal/abnormal . [facility] Kabuu0295-91-19 10:46:23 Test Item Value Reference Range Interpretation Comments Sodium Lvl (test code 139 See_Comment [Auto mated message] The = 2951-2) system which ge nerated this result tra nsmitted reference range : 136 - 145 mEq/L. The refe rence range was not used to interpret this result as normal/abnormal . [facility]2023-02-28 10:46:23 Test Item Value Reference Range Interpretation Comments Sodium Lvl (test code 139 See_Comment [Auto mated message] The = 2951-2) system which ge nerated this result tra nsmitted reference range : 136 - 145 mEq/L. The refe rence range was not used to interpret this result as normal/abnormal . [facility]2023-02-28 10:46:23 Test Item Value Reference Range Interpretation Comments Sodium Lvl (test code 139 See_Comment [Auto mated message] The = 2951-2) system which ge nerated this result tra nsmitted reference range : 136 - 145 mEq/L. The refe rence range was not used to interpret this result as normal/abnormal . [facility] CenterGlucose, Sghuor1368-28-84 10:46:21 Test Item Value Reference Range Interpretation Comments Glucose Random (test 100 mg/dL 70-199 Effecti ve 11/22/15, the code = 2345-7) glucose refer ence intervals have been updated based o n [place] [employer] aroldo delines (Standards of M edical Care in Diabete s 2016. Diabetes Care 2 016; 39: S13-S22).Fastin g blood glucose:Normal: 70-99 mg/dLImpaired f asting glucose (increa sed risk for diabetes or pre-diabetes): 100-125 mg/dLDiabetes m ellitus: >/=126 mg/dL Ra ndom blood glucose:N ormal: 70-199 mg/dLNot e: Random glucose >100 mg /dL is associated with increased risk for diabetes [facility] CenterGlucose, Glxsaw9935-33-20 10:46:21 Test Item Value Reference Range Interpretation Comments Glucose Random (test 100 mg/dL 70-199 Effecti ve 11/22/15, the code = 2345-7) glucose refer ence intervals have been updated based o n [place] [employer] aroldo delines (Standards of edical Care in Diabete s 2016. Diabetes Care 2 016; 39: S13-S22).Fastin g blood glucose:Normal: 70-99 mg/dLImpaired f asting glucose (increa sed risk for diabetes or pre-diabetes): 100-125 mg/dLDiabetes m ellitus: >/=126 mg/dL Ra ndom blood glucose:N ormal: 70-199 mg/dLNot e: Random glucose >100 mg /dL is associated with increased risk for diabetes [facility] CenterGlucose, Xucuoh2555-29-60 10:46:21 Test Item Value Reference Range Interpretation Comments Glucose Random (test 100 mg/dL 70-199 Effecti ve 11/22/15, the code = 2345-7) glucose refer ence intervals have been updated based o n [place] [employer] aro[employer]o delines (Standards of edical Care in Diabete s 2016. Diabetes Care 2 016; 39: S13-S22).Fastin g blood glucose:Normal: 70-99 mg/dLImpaired f asting glucose (increa sed risk for diabetes or pre-diabetes): 100-125 mg/dLDiabetes m ellitus: >/=126 mg/dL Ra ndom blood glucose:N ormal: 70-199 mg/dLNot e: Random glucose >100 mg /dL is associated with increased risk for diabetes [facility] CenterGlucose, Matdfo3206-96-88 10:46:21 Test Item Value Reference Range Interpretation Comments Glucose Random (test 100 mg/dL 70-199 Effecti ve 11/22/15, the code = 2345-7) glucose refer ence intervals have been updated based o n [place] [employer] aroldo delines (Standards of edical Care in Diabete s 2016. Diabetes Care 2 016; 39: S13-S22).Fastin g blood glucose:Normal: 70-99 mg/dLImpaired f asting glucose (increa sed risk for diabetes or pre-diabetes): 100-125 mg/dLDiabetes m ellitus: >/=126 mg/dL Ra ndom blood glucose:N ormal: 70-199 mg/dLNot e: Random glucose >100 mg /dL is associated with increased risk for diabetes [facility] CenterPhosphorus Xnvxf8712-33-12 10:46:20 Test Item Value Reference Range Interpretation Comments Phosphorus (test code = 2777-1) 2.6 mg/dL 2.5-4.5 [facility] CenterPhosphorus Hqnfy4212-82-39 10:46:20 Test Item Value Reference Range Interpretation Comments Phosphorus (test code = 2777-1) 2.6 mg/dL 2.5-4.5 [facility] CenterPhosphorus Falhg9352-62-42 10:46:20 Test Item Value Reference Range Interpretation Comments Phosphorus (test code = 2777-1) 2.6 mg/dL 2.5-4.5 [facility] CenterPhosphorus Nittl4901-11-84 10:46:20 Test Item Value Reference Range Interpretation Comments Phosphorus (test code = 2777-1) 2.6 mg/dL 2.5-4.5 [facility] CenterCalcium Xiaro4600-51-68 10:46:19 Test Item Value Reference Range Interpretation Comments Calcium Lvl (test code = 47180-5) 9.0 mg/dL 8.4-10.2 [facility] CenterCalcium Ebtsk7222-87-54 10:46:19 Test Item Value Reference Range Interpretation Comments Calcium Lvl (test code = 94054-1) 9.0 mg/dL 8.4-10.2 [facility] CenterCalcium Rxkuq6332-46-19 10:46:19 Test Item Value Reference Range Interpretation Comments Calcium Lvl (test code = 24094-3) 9.0 mg/dL 8.4-10.2 [facility] CenterCalcium Qlkcl6680-67-37 10:46:19 Test Item Value Reference Range Interpretation Comments Calcium Lvl (test code = 84906-0) 9.0 mg/dL 8.4-10.2 [facility] CenterAlbumin Xmesp9292-64-25 10:46:18 Test Item Value Reference Range Interpretation Comments Albumin Lvl (test code = 3.3 See_Comment L [A utomated message] 3569-8) The system [employer] generated this result transmitted ref erence range: 3.5 - 5. 2 gm/dL. The refe rence range was not u sed to interpret this result as normal/abnor mal. Lab Interpretation (test Abnormal code = 32269-6) [facility] CenterAlbumin Brpbe0934-06-55 10:46:18 Test Item Value Reference Range Interpretation Comments Albumin Lvl (test code = 3.3 See_Comment L [A utomated message] 1750-10) The system [employer] generated this result transmitted ref erence range: 3.5 - 5. 2 gm/dL. The refe rence range was not u sed to interpret this result as normal/abnor mal. Lab Interpretation (test Abnormal code = 37225-4) [facility] CenterAlbumin [id number] 10:46:18 Test Item Value Reference Range Interpretation Comments Albumin Lvl (test code = 3.3 See_Comment L [A utomated message] 1750-10) The system [employer] generated this result transmitted ref erence range: 3.5 - 5. 2 gm/dL. The refe rence range was not u sed to interpret this result as normal/abnor mal. Lab Interpretation (test Abnormal code = 56274-0) [facility] CenterAlbumin Tanmd3021-32-13 10:46:18 Test Item Value Reference Range Interpretation Comments Albumin Lvl (test code = 3.3 See_Comment L [A utomated message] 1750-10) The system [employer] generated this result transmitted ref erence range: 3.5 - 5. 2 gm/dL. The refe rence range was not u sed to interpret this result as normal/abnor mal. Lab Interpretation (test Abnormal code = 05309-3) [facility] CenterAspartate Aminotransferase 2022-06-25 10:46:17 Test Item Value Reference Range Interpretation Comments AST (test code = 1920-8) 23 U/L <=40 [facility] CenterAspartate Aminotransferase 2022-06-25 10:46:17 Test Item Value Reference Range Interpretation Comments AST (test code = 1920-8) 23 U/L <=40 [facility] CenterAspartate Aminotransferase 2022-06-25 10:46:17 Test Item Value Reference Range Interpretation Comments AST (test code = 1920-8) 23 U/L <=40 [facility] CenterAspartate Aminotransferase 2022-06-25 10:46:17 Test Item Value Reference Range Interpretation Comments AST (test code = 1920-8) 23 U/L <=40 [facility] CenterCarbon Dioxide Qswjy0817-99-74 10:46:16 Test Item Value Reference Range Interpretation Comments CO2 (test code = 26 See_Comment [Automated message] The 2027-12) system which ge nerated this result transmit elbert reference range : 22 - 29 mEq/L. The refe rence range was not used to interpret this result as normal/abnormal . [facility] CenterCarbon Dioxide Ukrfn3634-78-05 10:46:16 Test Item Value Reference Range Interpretation Comments CO2 (test code = 26 See_Comment [Automated message] The 2027-12) system which ge nerated this result transmit elbert reference range : 22 - 29 mEq/L. The refe rence range was not used to interpret this result as normal/abnormal . [facility] CenterCarbon Dioxide Sjmkh2046-28-20 10:46:16 Test Item Value Reference Range Interpretation Comments CO2 (test code = 26 See_Comment [Automated message] The 2027-12) system which ge nerated this result transmit elbert reference range : 22 - 29 mEq/L. The refe rence range was not used to interpret this result as normal/abnormal . [facility] CenterCarbon Dioxide Jdbzg3537-41-24 10:46:16 Test Item Value Reference Range Interpretation Comments CO2 (test code = 26 See_Comment [Automated message] The 2027-12) system which ge nerated this result transmit elbert reference range : 22 - 29 mEq/L. The refe rence range was not used to interpret this result as normal/abnormal . [facility] CenterLDH2023-[facility] 10:42:50 Test Item Value Reference Range Interpretation Comments LDH (test code = 229 U/L 135-225 H Results gre ater than 36976-0) 1651 U/L may no t be reliable due to matrix effect w ith extended diluti on as it exceeds the fitter helper's recommended carbajal it. Caution should be exercised when interpreting bui ch values and done in conjunction wit h clinical contex t. Lab Interpretation (test Abnormal code = 09589-7) [facility] CenterLDH2023-[facility] 10:42:50 Test Item Value Reference Range Interpretation Comments LDH (test code = 229 U/L 135-225 H Results gre ater than 72086-9) 1651 U/L may no t be reliable due to matrix effect w ith extended diluti on as it exceeds the fitter helper's recommended carbajal it. Caution should be exercised when interpreting bui ch values and done in conjunction [facility] clinical contex t. Lab Interpretation (test Abnormal code = 42900-4) [facility] CenterLDH20[facility] 10:42:50 Test Item Value Reference Range Interpretation Comments LDH (test code = 229 U/L 135-225 H Results gre ater than 20718-4) 1651 U/L may no t be reliable due to matrix effect w ith extended diluti on as it exceeds the fitter helper's recommended carbajal it. Caution should be exercised when interpreting bui ch values and done in conjunction [facility] clinical contex t. Lab Interpretation (test Abnormal code = 07565-3) [facility] CenterLDH2023-[facility] 10:42:50 Test Item Value Reference Range Interpretation Comments LDH (test code = 229 U/L 135-225 H Results gre ater than 86370-9) 1651 U/L may no t be reliable due to matrix effect w ith extended diluti on as it exceeds the fitter helper's recommended carbajal it. Caution should be exercised when interpreting bui ch values and done in conjunction [facility] clinical contex t. Lab Interpretation (test Abnormal code = 31457-9) [facility] CenterDifferential2023-02-28 10:23:19 Test Item Value Reference [...] 0.3 % 0.0-0.4 IGRE % c ount 06879-0) includes Metamyelocytes, Myelocytes, and Promyelocytes. Neutrophil Abs (test code 1.91 K/uL 1.70-7.30 = 751-8) Lymphocyte Abs (test code 1.05 K/uL 1.00-4.80 = 731-0) Monocyte Abs (test code = 0.44 K/uL 0.08-0.70 742-7) Eosinophil Abs (test code 0.05 K/uL 0.04-0.40 = 711-2) Basophil Abs (test code = 0.01 K/uL 0.00-0.10 704-7) IG Abs (test code = 0.01 K/uL 0.00-0.04 55910-4) Lab Interpretation (test Abnormal code = 11631-9) [facility] GuecjiOzazlsfpkgdl8570-19-71 10:23:19 Test Item Value Reference Range Interpretation [...] 0.3 % 0.0-0.4 IGRE % c ount 65342-4) includes Metamyelocytes, Myelocytes, and Promyelocytes. Neutrophil Abs (test code 1.91 K/uL 1.70-7.30 = 751-8) Lymphocyte Abs (test code 1.05 K/uL 1.00-4.80 = 731-0) Monocyte Abs (test code = 0.44 K/uL 0.08-0.70 742-7) Eosinophil Abs (test code 0.05 K/uL 0.04-0.40 = 711-2) Basophil Abs (test code = 0.01 K/uL 0.00-0.10 704-7) IG Abs (test code = 0.01 K/uL 0.00-0.04 87478-3) Lab Interpretation (test Abnormal code = 58003-8) [facility] CenterDifferential20[facility] 10:23:19 Test Item Value Reference [...] 0.3 % 0.0-0.4 IGRE % c ount 77620-2) includes Metamyelocytes, Myelocytes, and Promyelocytes. Neutrophil Abs (test code 1.91 K/uL 1.70-7.30 = 751-8) Lymphocyte Abs (test code 1.05 K/uL 1.00-4.80 = 731-0) Monocyte Abs (test code = 0.44 K/uL 0.08-0.70 742-7) Eosinophil Abs (test code 0.05 K/uL 0.04-0.40 = 711-2) Basophil Abs (test code = 0.01 K/uL 0.00-0.10 704-7) IG Abs (test code = 0.01 K/uL 0.00-0.04 82477-5) Lab Interpretation (test Abnormal code = 27777-5) [facility] CenterDifferential20[facility] 10:23:19 Test Item Value Reference [...] 0.3 % 0.0-0.4 IGRE % c ount 38693-5) includes Metamyelocytes, Myelocytes, and Promyelocytes. Neutrophil Abs (test code 1.91 K/uL 1.70-7.30 = 751-8) Lymphocyte Abs (test code 1.05 K/uL 1.00-4.80 = 731-0) Monocyte Abs (test code = 0.44 K/uL 0.08-0.70 742-7) Eosinophil Abs (test code 0.05 K/uL 0.04-0.40 = 711-2) Basophil Abs (test code = 0.01 K/uL 0.00-0.10 704-7) IG Abs (test code = 0.01 K/uL 0.00-0.04 08456-4) Lab Interpretation (test Abnormal code = 85145-5) [facility] [place].KQP7658-67-99 10:23:05 Test Item Value Reference Range Interpretation Comments WBC (test code = 3.5 K/uL 4.0-11.0 L 6690-2) RBC (test code = 789-8) 2.96 See_Comment L [Au tomated message] The system [employer] generated this result transmitted ref erence range: 4.50 - 6 .00 M/uL. The refer ence range was not u sed to interpret this result as normal/abnor mal. Hgb (test code = 718-7) 10.1 See_Comment L [Au tomated message] The system [employer] generated this result transmitted ref erence range: [...] See_Comment [Automate d message] 786-4) The system [employer] generated this result transmitted ref erence range: 31.0 - 3 6.0 gm/dL. The refe rence range was not u sed to interpret this result as normal/abnor mal. RDW-SD (test code = 46.5 fL 35.1-46.3 H 84485-3) RDW-CV (test code = 12.6 % 12.0-15.5 788-0) Platelet count (test 150 K/uL 140-440 code = 777-3) MPV (test code = 10.4 fL 4.0-10.4 55432-6) INRBC (test code = 0.0 % <=0.0 The INRBC (instrument 49235-7) NRBC) value ref lects the enumeration of nucleated red b lood cells contained in a 200uL sampleof whole blood analyzed by the instrument. Thi s value maydiffer from the NRBC value repo rted in a manual differential,wh ich is based on a 100 cell differential. Lab Interpretation Abnormal (test code = 81111-9) [facility].[id number] 10:23:05 Test Item Value Reference Range Interpretation Comments WBC (test code = 3.5 K/uL 4.0-11.0 L 6690-2) RBC (test code = 789-8) 2.96 See_Comment L [Au tomated message] The system [employer] generated this result transmitted ref erence range: 4.50 - 6 .00 M/uL. The refer ence range was not u sed to interpret this result as normal/abnor mal. Hgb (test code = 718-7) 10.1 See_Comment L [Au tomated message] The system [employer] generated this result transmitted ref erence range: [...] See_Comment [Automate d message] 786-4) The system [employer] generated this result transmitted ref erence range: 31.0 - 3 6.0 gm/dL. The refe rence range was not u sed to interpret this result as normal/abnor mal. RDW-SD (test code = 46.5 fL 35.1-46.3 H 33530-0) RDW-CV (test code = 12.6 % 12.0-15.5 788-0) Platelet count (test 150 K/uL 140-440 code = 777-3) MPV (test code = 10.4 fL 4.0-10.4 67845-7) INRBC (test code = 0.0 % <=0.0 The INRBC (instrument 70255-4) NRBC) value ref lects the enumeration of nucleated red b lood cells contained in a 200uL sampleof whole blood analyzed by the instrument. Thi s value maydiffer from the NRBC value repo rted in a manual differential,wh ich is based on a 100 cell differential. Lab Interpretation Abnormal (test code = 68565-1) [facility].[id number] 10:23:05 Test Item Value Reference Range Interpretation Comments WBC (test code = 3.5 K/uL 4.0-11.0 L 6690-2) RBC (test code = 789-8) 2.96 See_Comment L [Au tomated message] The system [employer] generated this result transmitted ref erence range: 4.50 - 6 .00 M/uL. The refer ence range was not u sed to interpret this result as normal/abnor mal. Hgb (test code = 718-7) 10.1 See_Comment L [Au tomated message] The system [employer] generated this result transmitted ref erence range: [...] See_Comment [Automate d message] 786-4) The system [employer] generated this result transmitted ref erence range: 31.0 - 3 6.0 gm/dL. The refe rence range was not u sed to interpret this result as normal/abnor mal. RDW-SD (test code = 46.5 fL 35.1-46.3 H 61225-2) RDW-CV (test code = 12.6 % 12.0-15.5 788-0) Platelet count (test 150 K/uL 140-440 code = 777-3) MPV (test code = 10.4 fL 4.0-10.4 79383-4) INRBC (test code = 0.0 % <=0.0 The INRBC (instrument 31104-7) NRBC) value ref lects the enumeration of nucleated red b lood cells contained in a 200uL sampleof whole blood analyzed by the instrument. Thi s value maydiffer from the NRBC value repo rted in a manual differential,wh ich is based on a 100 cell differential. Lab Interpretation Abnormal (test code = 82700-8) [facility].[id number] 10:23:05 Test Item Value Reference Range Interpretation Comments WBC (test code = 3.5 K/uL 4.0-11.0 L 6690-2) RBC (test code = 789-8) 2.96 See_Comment L [Au tomated message] The system [employer] generated this result transmitted ref erence range: 4.50 - 6 .00 M/uL. The refer ence range was not u sed to interpret this result as normal/abnor mal. Hgb (test code = 718-7) 10.1 See_Comment L [Au tomated message] The system [employer] generated this result transmitted ref erence range: [...] See_Comment [Automate d message] 786-4) The system [employer] generated this result transmitted ref erence range: 31.0 - 3 6.0 gm/dL. The refe rence range was not u sed to interpret this result as normal/abnor mal. RDW-SD (test code = 46.5 fL 35.1-46.3 H 92809-2) RDW-CV (test code = 12.6 % 12.0-15.5 788-0) Platelet count (test 150 K/uL 140-440 code = 777-3) MPV (test code = 10.4 fL 4.0-10.4 72178-9) INRBC (test code = 0.0 % <=0.0 The INRBC (instrument 78162-9) NRBC) value ref lects the enumeration of nucleated red b lood cells contained in a 200uL sampleof whole blood analyzed by the instrument. Thi s value maydiffer from the NRBC value repo rted in a manual differential,wh ich is based on a 100 cell differential. Lab Interpretation Abnormal (test code = 90936-1) [facility] [id number] 22:44:56 Test Item Value Reference Range Interpretation Comments Final Report (test code Pseudomonas A = 8488) aeruginosaTime to detection: 00 days 21 hours 49 minutesFor susceptibility refer to Culture [id number] notification, refer to accession: [id number] Path Review - The results have been A Bottle/Isolator (test reviewed and code = 8499) electronically signed by Pathologist:Kwesi Tristan MD, PhD #[id number] JOQAUIN (test code = JOAQUIN) Peripheral Lab Interpretation Abnormal (test code = 12302-6) [facility] [id number] 22:44:56 Test Item Value Reference Range Interpretation Comments Final Report (test code Pseudomonas A = 8488) aeruginosaTime to detection: 00 days 21 hours 49 minutesFor susceptibility refer to Culture [id number] notification, refer to accession: [id number] Path Review - The results have been A Bottle/Isolator (test reviewed and code = 8499) electronically signed by Pathologist:Kwesi Tristan MD, PhD #[id number] JOAQUIN (test code = JOAQUIN) Peripheral Lab Interpretation Abnormal (test code = 91660-2) [facility] [id number] 17:08:19 Test Item Value Reference Range Interpretation Comments Final Report (test code Pseudomonas A = 8488) aeruginosaTime to detection: 00 days 21 hours 49 minutesFor susceptibility refer to Culture [id number] notification, refer to accession: [id number] JOAQUIN (test code = JOAQUIN) Peripheral Lab Interpretation Abnormal (test code = 76234-3) [facility] Antibody Screen [id number] 16:12:36 Test Item Value Reference Range Interpretation Comments TMP Auto Neg At the present ABSC Interp time, patient (test code = plasma shows no ____ARIN PAINTING 7535) evidence of RBC KNOPFELMACHE R alloantibodies. Panda VALLEJO by: ARIN VALLEJO,Dictated Date/Time: 05.30 10:12 AM INTRAVENOUS THERAPY NURSE Tr anscribed Date/Time: 05.30 10:12 AM CSTElectronical ly Signed By: ARIN STEVENSON on 06.24.2022 10:1 2 AM [facility] Antibody Screen [id number] 16:12:36 Test Item Value Reference Range Interpretation Comments TMP Auto Neg At the present ABSC Interp time, patient (test code = plasma shows no ____ARIN PAINTING 7535) evidence of RBC KNOPFELMACHE R alloantibodies. Panda VALLEJO by: ARIN VALLEJO,Dictated Date/Time: 05.30 10:12 AM INTRAVENOUS THERAPY NURSE Tr anscribed Date/Time: 05.30 10:12 AM CSTElectronical ly Signed By: ARIN STEVENSON, on 06.24.2022 10:1 2 AM [facility] Antibody Screen [id number] 16:12:36 Test Item Value Reference Range Interpretation Comments TMP Auto Neg At the present ABSC Interp time, patient (test code = plasma shows no ____ARIN PAINTING 7535) evidence of RBC KNOPFELMACHE R alloantibodies. Panda VALLEJO by: ARIN VALLEJO,Dictated Date/Time: 05.30 10:12 AM INTRAVENOUS THERAPY NURSE Transcribed Gonzalez e/Time: 06.24.2022 10:1 2 AM CSTElectronical ly Signed By: ARIN STEVENSON, on 06.24.2022 10:1 2 AM [facility] Antibody Screen [id number] 16:12:36 Test Item Value Reference Range Interpretation Comments TMP Auto Neg At the present ABSC Interp time, patient (test code = plasma shows no ____ARIN PAINTING 7535) evidence of RBC KNOPFELMACHE R alloantibodies. Panda VALLEJO elbert by: ARIN VALLEJO,Dictated Date/Time: 05.30 10:12 AM INTRAVENOUS THERAPY NURSE Tr anscribed Date/Time: 05.30 10:12 AM CSTElectronical ly Signed By: ARIN STVEENSON, on 06.24.2022 10:1 2 AM [facility] CenterTMP Interpretation Antibody Screen [id number] 16:12:36 Test Item Value Reference Range Interpretation Comments TMP Auto Neg At the present ABSC Interp time, patient (test code = plasma shows no ____ARIN PAINTING 7535) evidence of RBC KNOPFELMACHE R alloantibodies. GENEVIEVE,Idaliaa elbert by: ARIN MERT TYREE VALLEJO,Dictated Date/Time: 05.30 10:12 AM INTRAVENOUS THERAPY NURSE Tr anscribed Date/Time: 05.30 10:12 AM CSTElectronical ly Signed By: ARIN STEVENSON, on 06.24.2022 10:1 2 AM [facility] CenterLDH2023-02-27 13:59:10 Test Item Value Reference Range Interpretation Comments LDH (test code = 229 U/L 135-225 H Results gre ater than 22824-0) 1651 U/L may no t be reliable due to matrix effect w ith extended diluti on as it exceeds the fitter helper's recommended carbajal it. Caution should be exercised when interpreting bui ch values and done in conjunction wit h clinical contex t. Lab Interpretation (test Abnormal code = 94304-7) [facility] CenterFractionated [id number] 13:44:58 Test Item Value Reference Range Interpretation Comments Bili Total (test 0.4 mg/dL <=1.2 Indocyanine Green (ICG) code = 1974-) may cause fal sely elevated biliru bin results. Total and direct bilirubin must not be measured from s amples containing indo cyanine green. False el evation of total bilirubin can be seen in patient s with IgG concentrations above 28 g/L. Bili Direct (test <=0.3 Indocyanin e Green (ICG) code = 1967-) may cause fal sely elevated biliru bin results. Total and direct bilirubin must not be measured from s amples containing indo cyanine green. Bili Indirect (test See Note 0.0-0.9 Unable t o calculate code = 1970-) Indirect Bili cates result due to some par ameters are outside rep ortable range [facility] CenterGlomerular Filtration Rate 2022-06-24 13:44:56 Test Item Value Reference Range Interpretation Comments eGFR (test code = 109 See_Comment The [place]GFRcr [place] [address]-7) the 2020 CKD-EP I creatinine equation using [...] int erpret this result as nataly l/abnormal. [facility] CenterUric [id number] 13:44:55 Test Item Value Reference Range Interpretation Comments Uric Acid (test code = 3084-1) 3.3 mg/dL 3.4-7.0 L Lab Interpretation (test code = Abnormal 11730-4) [facility] CenterMagnesium [id number] 13:44:54 Test Item Value Reference Range Interpretation Comments Magnesium (test code = 70353-5) 1.7 mg/dL 1.6-2.6 [facility] CenterAlkaline Cgdxshezbct2046-76-85 13:44:53 Test Item Value Reference Range Interpretation Comments Alk Phos (test code = 6768-6) 69 U/L 40-129 [facility] CenterAlanine Qiwyhifmcnmumyan5290-77-13 13:44:52ALT<5<=41 U/LUT [facility]ENTERUn[facility].Serum Akceybgjuy2266-42-90 13:44:51 Test Item Value Reference Range Interpretation Comments Creatinine (test code = 2160-0) 0.54 mg/dL 0.67-1.17 L Lab Interpretation (test code = Abnormal 53315-4) [facility] CenterBUN2023-02-27 13:44:50 Test Item Value Reference Range Interpretation Comments BUN (test code = 3094-0) 8 mg/dL 6-23 [facility] CenterAnion [id number] 13:44:49 Test Item Value Reference Range Interpretation Comments Anion Gap (test code 9 See_Comment [Autom ated message] The = 01311-7) system which ge nerated this result transmit elbert reference range : 4 - 14 mEq/L. The refe rence range was not used to interpret this result as normal/abnormal . [facility] CenterChloride [id number] 13:44:48 Test Item Value Reference Range Interpretation Comments Chloride (test code = 104 See_Comment [Auto mated message] The ) system which ge nerated this result tra nsmitted reference range : 98 - 107 mEq/L. The refe rence range was not u sed to interpret this result as normal/abnormal . [facility] CenterPotassium2023-02-27 13:44:47 Test Item Value Reference Range Interpretation Comments Potassium Lvl (test 3.9 See_Comment [Automa elbert message] The code = 2823-3) system which generated this result tra nsmitted reference range : 3.5 - 5.1 mEq/L. The reference range was not u sed to interpret this result as normal/abnormal . [facility] [id number] 13:44:46 Test Item Value Reference Range Interpretation Comments Sodium Lvl (test code 139 See_Comment [Auto mated message] The = 2951-2) system which ge nerated this result tra nsmitted reference range : 136 - 145 mEq/L. The refe rence range was not used to interpret this result as normal/abnormal . [facility] CenterGlucose, Kkckfe6894-23-08 13:44:44 Test Item Value Reference Range Interpretation Comments Glucose Random (test 101 mg/dL 70-199 Effecti ve 11/22/15, the code = 2345-7) glucose refer ence intervals have been updated based o n [place] [employer] aroldo delines (Standards of M edical Care in Diabete s 2016. Diabetes Care 2 016; 39: S13-S22).Fastin g blood glucose:Normal: 70-99 mg/dLImpaired f asting glucose (increa sed risk for diabetes or pre-diabetes): 100-125 mg/dLDiabetes m ellitus: >/=126 mg/dL Ra ndom blood glucose:N ormal: 70-199 mg/dLNot e: Random glucose >100 mg /dL is associated with increased risk for diabetes [facility] CenterPhosphorus Xybzx8916-31-27 13:44:43 Test Item Value Reference Range Interpretation Comments Phosphorus (test code = 2777-1) 2.3 mg/dL 2.5-4.5 L Lab Interpretation (test code = Abnormal 50834-6) [facility] CenterCalcium [id number] 13:44:42 Test Item Value Reference Range Interpretation Comments Calcium Lvl (test code = 57663-1) 9.1 mg/dL 8.4-10.2 [facility] CenterAlbumin Wrkvn8994-31-87 13:44:41 Test Item Value Reference Range Interpretation Comments Albumin Lvl (test code 3.5 See_Comment [Aut omated message] The = 1750-10) system which ge nerated this result tra nsmitted reference range : 3.5 - 5.2 gm/dL. The refe rence range was not used to interpret this result as normal/abnormal . [facility] CenterAspartate Aminotransferase 2022-06-24 13:44:40 Test Item Value Reference Range Interpretation Comments AST (test code = 1920-8) 24 U/L <=40 [facility] CenterCarbon Dioxide [id number] 13:44:39 Test Item Value Reference Range Interpretation Comments CO2 (test code = 26 See_Comment [Automated message] The 2027-12) system which ge nerated this result transmit elbert reference range : 22 - 29 mEq/L. The refe rence range was not used to interpret this result as normal/abnormal . [facility] CenterDifferential2023-02-27 13:18:41 Test Item Value Reference [...] 0.4 % 0.0-0.4 IGRE % c ount 48932-2) includes Metamyelocytes, Myelocytes, and Promyelocytes. Neutrophil Abs (test code 2.95 K/uL 1.70-7.30 = 751-8) Lymphocyte Abs (test code 1.05 K/uL 1.00-4.80 = 731-0) Monocyte Abs (test code = 0.47 K/uL 0.08-0.70 742-7) Eosinophil Abs (test code 0.08 K/uL 0.04-0.40 = 711-2) Basophil Abs (test code = 0.00 K/uL 0.00-0.10 704-7) IG Abs (test code = 0.02 K/uL 0.00-0.04 31657-2) Lab Interpretation (test Abnormal code = 37811-3) [facility].MOH8047-45-64 13:18:28 Test Item Value Reference Range Interpretation Comments WBC (test code = 4.6 K/uL 4.0-11.0 6690-2) RBC (test code = 789-8) 3.31 See_Comment L [Au tomated message] The system [employer] generated this result transmitted ref erence range: 4.50 - 6 .00 M/uL. The refer ence range was not u sed to interpret this result as normal/abnor mal. Hgb (test code = 718-7) 11.1 See_Comment L [Au tomated message] The system [employer] generated this result transmitted ref erence range: [...] See_Comment [Automate d message] 786-4) The system [employer] generated this result transmitted ref erence range: 31.0 - 3 6.0 gm/dL. The refe rence range was not u sed to interpret this result as normal/abnor mal. RDW-SD (test code = 46.4 fL 35.1-46.3 H 08480-3) RDW-CV (test code = 12.8 % 12.0-15.5 788-0) Platelet count (test 173 K/uL 140-440 code = 777-3) MPV (test code = 10.1 fL 4.0-10.4 07882-5) INRBC (test code = 0.0 % <=0.0 The INRBC (instrument 23727-2) NRBC) value ref lects the enumeration of nucleated red b lood cells contained in a 200uL sampleof whole blood analyzed by the instrument. Thi s value maydiffer from the NRBC value repo rted in a manual differential,wh ich is based on a 100 cell differential. Lab Interpretation Abnormal (test code = 02075-2) [facility] CenterAntibody Fpvmhi9877-37-39 18:49:47 Test Item Value Reference Range Interpretation Comments ABSC. (test code = 890-4) Negative ABSC [facility] CenterAntibody Jtxzxn3201-94-19 18:49:47 Test Item Value Reference Range Interpretation Comments ABSC. (test code = 890-4) Negative ABSC [facility] CenterAntibody Gwquqj7864-00-47 18:49:47 Test Item Value Reference Range Interpretation Comments ABSC. (test code = 890-4) Negative ABSC [facility] CenterAntibody Rzldkj2311-80-46 18:49:47 Test Item Value Reference Range Interpretation Comments ABSC. (test code = 890-4) Negative ABSC [facility] CenterAntibody Fwaanu3924-31-92 18:49:47 Test Item Value Reference Range Interpretation Comments ABSC. (test code = 890-4) Negative ABSC [facility] CenterABORh2023-02-26 18:49:46 Test Item Value Reference Range Interpretation Comments ABORh. (test code = 882-1) A POS [facility] CenterABORh2023-02-26 18:49:46 Test Item Value Reference Range Interpretation Comments ABORh. (test code = 882-1) A POS [facility] CenterABORh2023-02-26 18:49:46 Test Item Value Reference Range Interpretation Comments ABORh. (test code = 882-1) A POS [facility] CenterABORh2023-02-26 18:49:46 Test Item Value Reference Range Interpretation Comments ABORh. (test code = 882-1) A POS [facility] CenterABORh2023-02-26 18:49:46 Test Item Value Reference Range Interpretation Comments ABORh. (test code = 882-1) A POS [facility] CenterClot Expiration [id number] 18:49:34 Test Item Value Reference Range Interpretation Comments T & S Expiration (test code = 06/26/20225317) [facility] CenterClot Expiration [id number] 18:49:34 Test Item Value Reference Range Interpretation Comments T & S Expiration (test code = 06/26/20225317) [facility] CenterClot Expiration [id number] 18:49:34 Test Item Value Reference Range Interpretation Comments T & S Expiration (test code = 06/26/20225317) [facility] CenterClot Expiration [id number] 18:49:34 Test Item Value Reference Range Interpretation Comments T & S Expiration (test code = 06/26/20225317) [facility] CenterClot Expiration Ikyh0699-73-05 18:49:34 Test Item Value Reference Range Interpretation Comments T & S Expiration (test code = 06/26/20225317) [facility] CenterHBV DNA [id number] 01:35:42 Test Item Value Reference Range Interpretation Comments HBV DNA Qnt-Sanchez Undetected Undetected IU/mL Result in log IU/mL is (test code = Undetected. 48698-2) ----ADDITIO NAL INFORMATION---- ----The quantif ication range of this a ssay is 10 to1,000,000,000 IU/mL (1.00 log to 9. 00 log IU/mL). Testing was performed using the lucas HBV test ([employer] with the lucas 6800 System. Test Pe rformed by:[place] [id number] Director: Jose L Nieto M.D. Ph. D.; CLIA# [id number] [facility] CenterHBV DNA [id number] 01:35:42 Test Item Value Reference Range Interpretation Comments HBV DNA Qnt-Basom Undetected Undetected IU/mL Result in log IU/mL is (test code = Undetected. 20611-2) ----ADDITIO NAL INFORMATION---- ----The quantif ication range of this a ssay is 10 to1,000,000,000 IU/mL (1.00 log to 9. 00 log IU/mL). Testing was performed using the lucas HBV test ([employer] with the lucas 6800 System. Test Pe rformed by:[address] [address]Lab Director: Jose L Nieto M.D. Ph. D.; CLIA# [id number] [facility] CenterHBV DNA [id number] 01:35:42 Test Item Value Reference Range Interpretation Comments HBV DNA Qnt-Sanchez Undetected Undetected IU/mL Result in log IU/mL is (test code = Undetected. 22470-0) ----ADDITIO NAL INFORMATION---- ----The quantif ication range of this a ssay is 10 to1,000,000,000 IU/mL (1.00 log to 9. 00 log IU/mL). Testing was performed using the lucas HBV test ([employer] with the lucas 6800 System. Test Pe rformed by:[place] [id number] Director: Jose L Nieto M.D. Ph. D.; CLIA# [id number] [facility] CenterHBV DNA [id number] 01:35:42 Test Item Value Reference Range Interpretation Comments HBV DNA [facility] Undetected Undetected IU/mL Result in log IU/mL is (test code = Undetected. 85724-5) ----ADDITIO NAL INFORMATION---- ----The quantif ication range of this a ssay is 10 to1,000,000,000 IU/mL (1.00 log to 9. 00 log IU/mL). Testing was performed using the lucas HBV test ([employer] with the lucas 6800 System. Test Pe rformed by:[place] [id number] Director: Jose L Nieto M.D. Ph. D.; CLIA# [id number] [facility] CenterHBV DNA [id number] 01:35:42 Test Item Value Reference Range Interpretation Comments HBV DNA [facility] Undetected Undetected IU/mL Result in log IU/mL is (test code = Undetected. 57042-1) ----ADDITIO NAL INFORMATION---- ----The quantif ication range of this a ssay is 10 to1,000,000,000 IU/mL (1.00 log to 9. 00 log IU/mL). Testing was performed using the lucas HBV test ([employer] with the lucas 6800 System. Test Pe rformed by:[place] [id number] Director: Jose L Nieto M.D. Ph. D.; CLIA# [id number] [facility] CenterUrine Mmdwadz4924-79-11 00:10:47 Test Item Value Reference Range Interpretation Comments Final Report (test No growth code = 8488) Path Review - Urine The results have been (test code = 8483) reviewed and electronically signed by Pathologist:KAREL PABLO MD #[id number] [facility] CenterUrine Geattrp4587-00-92 00:10:47 Test Item Value Reference Range Interpretation Comments Final Report (test No growth code = 8488) Path Review - Urine The results have been (test code = 8483) reviewed and electronically signed by Pathologist:KAREL PABLO MD #[id number] [facility] CenterUrine Gstpgqj4358-75-70 00:10:47 Test Item Value Reference Range Interpretation Comments Final Report (test No growth code = 8488) Path Review - Urine The results have been (test code = 8483) reviewed and electronically signed by Pathologist:KAREL PABLO MD #[id number] [facility] CenterUrine Sppmezs7953-77-46 00:10:47 Test Item Value Reference Range Interpretation Comments Final Report (test No growth code = 8488) Path Review - Urine The results have been (test code = 8483) reviewed and electronically signed by Pathologist:KAREL PABLO MD #[id number] [facility] CenterUrine Rmapubt2865-24-52 00:10:47 Test Item Value Reference Range Interpretation Comments Final Report (test No growth code = 8488) Path Review - Urine The results have been (test code = 8483) reviewed and electronically signed by Pathologist:KAREL PABLO MD #[id number] [facility] CenterHepatitis C Virus RNA Detect/Quant 2022-06-21 21:10:35 Test Item Value Reference Range Interpretation Comments HepC RNA PCR Undetected Undetected IU/mL Result in l og IU/mL is Qnt-Basom (test Undetected. code = 94260-9) -------ADDITIO NAL INFORMATION---- ----The quantif ication range of this a ssay is 15 to 100,000,000I U/mL (1.18 log to 8.00 log IU/mL). Testing was per formedusing the lucas HCV t est ([employer]with the c ziyad 6800 System. Test Pe rformed by:[place] [id number] Director: Jose L Nieto M.D. Ph. D.; CLIA# [id number] [facility] CenterHepatitis C Virus RNA Detect/Quant 2022-06-21 21:10:35 Test Item Value Reference Range Interpretation Comments HepC RNA PCR Undetected Undetected IU/mL Result in l og IU/mL is Qnt-Basom (test Undetected. code = 31715-6) -------ADDITIO NAL INFORMATION---- ----The quantif ication range of this a ssay is 15 to 100,000,000I U/mL (1.18 log to 8.00 log IU/mL). Testing was per formedusing the lucas HCV t est ([employer]with the c ziyad 6800 System. Test Pe rformed by:[address] [address]Lab Director: Jose L Nieto M.D. Ph. D.; CLIA# [id number] [facility] CenterHepatitis C Virus RNA Detect/Quant 2022-06-21 21:10:35 Test Item Value Reference Range Interpretation Comments HepC RNA PCR Undetected Undetected IU/mL Result in l og IU/mL is Qnt-Sanchez (test Undetected. code = 76024-2) -------ADDITIO NAL INFORMATION---- ----The quantif ication range of this a ssay is 15 to 100,000,000I U/mL (1.18 log to 8.00 log IU/mL). Testing was per formedusing the lucas HCV t est ([employer]with the c ziyad 6800 System. Test Pe rformed by:[place] [address]Lab Director: Jose L Nieto M.D. Ph. D.; CLIA# [id number] [facility] CenterHepatitis C Virus RNA Detect/Quant 2022-06-21 21:10:35 Test Item Value Reference Range Interpretation Comments HepC RNA PCR Undetected Undetected IU/mL Result in l og IU/mL is Qnt-Basom (test Undetected. code = 03291-6) -------ADDITIO NAL INFORMATION---- ----The quantif ication range of this a ssay is 15 to 100,000,000I U/mL (1.18 log to 8.00 log IU/mL). Testing was per formedusing the lucas HCV t est ([employer]with the c ziyad 6800 System. Test Pe rformed by:[place] [address]Lab Director: Jose L Nieto M.D. Ph. D.; CLIA# [id number] [facility]Hew[facility]tis C Virus RNA Detect/Quant 2022-06-21 21:10:35 Test Item Value Reference Range Interpretation Comments HepC RNA PCR Undetected Undetected IU/mL Result in l og IU/mL is Qnt-Basom (test Undetected. code = 12670-2) -------ADDITIO NAL INFORMATION---- ----The quantif ication range of this a ssay is 15 to 100,000,000I U/mL (1.18 log to 8.00 log IU/mL). Testing was per formedusing the lucas HCV t est ([employer]with the c z[employer]ad [employer] System. Test Pe rformed by:[facility] [address] [facility] [place], [place], [place], [place] [address]Lab Director: Jose L Nieto M.D. Ph. D.; CLIA# [id number] [facility] CenterLDH2023-02-24 13:25:25 Test Item Value Reference Range Interpretation Comments LDH (test code = 250 U/L 135-225 H Results gre ater than 09402-3) 1651 U/L may no t be reliable due to matrix effect w ith extended diluti on as it exceeds the fitter helper's recommended carbajal it. Caution should be exercised when interpreting bui ch values and done in conjunction wit h clinical contex t. Lab Interpretation (test Abnormal code = 15926-0) [facility] CenterFractionated Mretgjhwh1793-16-10 13:25:02Bili Total<0.3<=1.2 mg/dLUT [facility]ENTERUnMem[facility] Herm[facility] KingwoodGlomerular Filtration Sqye1002-83-63 13:25:01 Test Item Value Reference Range Interpretation Comments eGFR (test code = 107 See_Comment The eGFRcr [place] 93795-8) the 2020 CKD-EP I creatinine equation using [...] int erpret this result as nataly l/abnormal. [facility] CenterUric Tnxu8419-70-67 13:25:00 Test Item Value Reference Range Interpretation Comments Uric Acid (test code = 3084-1) 3.7 mg/dL 3.4-7.0 [facility] CenterMagnesium Pyihv3573-46-48 13:24:59 Test Item Value Reference Range Interpretation Comments Magnesium (test code = 77802-6) 1.6 mg/dL 1.6-2.6 [facility] CenterAlkaline Clltfhnufqk0589-67-68 13:24:58 Test Item Value Reference Range Interpretation Comments Alk Phos (test code = 6768-6) 66 U/L 40-129 [facility] CenterAlanine Vtmmyvgcqkleeqix5826-17-08 13:24:57 Test Item Value Reference Range Interpretation Comments ALT (test code = 1742-6) 6 U/L <=41 [facility] CenterGlucose, Qzkbsv9752-56-71 13:24:56 Test Item Value Reference Range Interpretation Comments Glucose Random (test 98 mg/dL 70-199 Effecti ve 11/22/15, the code = 2345-7) glucose refer ence intervals have been updated based o n [place] [employer] aroldo delines (Standards of M edical Care in Diabete s 2016. Diabetes Care 2 016; 39: S13-S22).Fastin g blood glucose:Normal: 70-99 mg/dLImpaired f asting glucose (increa sed risk for diabetes or pre-diabetes): 100-125 mg/dLDiabetes m ellitus: >/=126 mg/dL Ra ndom blood glucose:N ormal: 70-199 mg/dLNot e: Random glucose >100 mg /dL is associated with increased risk for diabetes [facility].Serum Jrpssyevnp6226-81-02 13:24:55 Test Item Value Reference Range Interpretation Comments Creatinine (test code = 2160-0) 0.57 mg/dL 0.67-1.17 L Lab Interpretation (test code = Abnormal 97941-7) [facility] CenterAnion [id number] 13:24:54 Test Item Value Reference Range Interpretation Comments Anion Gap (test code 12 See_Comment [Autom ated message] The = 57015-4) system which ge nerated this result transmit elbert reference range : 4 - 14 mEq/L. The refe rence range was not used to interpret this result as normal/abnormal . [facility] CenterPhosphorus Broxg4239-20-49 13:24:53 Test Item Value Reference Range Interpretation Comments Phosphorus (test code = 2777-1) 2.5 mg/dL 2.5-4.5 [facility] CenterBUN2023-02-24 13:24:52 Test Item Value Reference Range Interpretation Comments BUN (test code = 3094-0) 8 mg/dL 6- [facility] CenterChloride Gzjmn7350-21-49 13:24:51 Test Item Value Reference Range Interpretation Comments Chloride (test code = 103 See_Comment [Auto mated message] The ) system which ge nerated this result tra nsmitted reference range : 98 - 107 mEq/L. The refe rence range was not u sed to interpret this result as normal/abnormal . [facility] CenterCalcium Yqqft6216-09-48 13:24:50 Test Item Value Reference Range Interpretation Comments Calcium Lvl (test code = 22281-8) 8.6 mg/dL 8.4-10.2 [facility] CenterPotassium2023-02-24 13:24:49 Test Item Value Reference Range Interpretation Comments Potassium Lvl (test 3.8 See_Comment [Automa elbert message] The code = 2823-3) system which generated this result tra nsmitted reference range : 3.5 - 5.1 mEq/L. The reference range was not u sed to interpret this result as normal/abnormal . [facility] CenterAlbumin Bagyw2011-89-93 13:24:48 Test Item Value Reference Range Interpretation Comments Albumin Lvl (test code = 3.0 See_Comment L [A utomated message] 2158-) The system whic h generated this result transmitted ref erence range: 3.5 - 5. 2 gm/dL. The refe rence range was not u sed to interpret this result as normal/abnor mal. Lab Interpretation (test Abnormal code = 71711-3) [facility]odium Gzasl6995-00-05 13:24:47 Test Item Value Reference Range Interpretation Comments Sodium Lvl (test code 138 See_Comment [Auto mated message] The = 2951-2) system which ge nerated this result tra nsmitted reference range : 136 - 145 mEq/L. The refe rence range was not used to interpret this result as normal/abnormal . [facility] CenterAspartate Aminotransferase 2022-06-21 13:24:46 Test Item Value Reference Range Interpretation Comments AST (test code = 1920-8) 27 U/L <=40 [facility] CenterCarbon Dioxide Ncynx8307-02-46 13:24:45 Test Item Value Reference Range Interpretation Comments CO2 (test code = 23 See_Comment [Automated message] The 2027-12) system which ge nerated this result transmit elbert reference range : 22 - 29 mEq/L. The refe rence range was not used to interpret this result as normal/abnormal . [facility] CenterDifferential2023-02-24 12:40:19 Test Item Value Reference [...] 0.3 % 0.0-0.4 IGRE % c ount 81768-5) includes Metamyelocytes, Myelocytes, and Promyelocytes. Neutrophil Abs (test code 2.16 K/uL 1.70-7.30 = 751-8) Lymphocyte Abs (test code 1.08 K/uL 1.00-4.80 = 731-0) Monocyte Abs (test code = 0.32 K/uL 0.08-0.70 742-7) Eosinophil Abs (test code 0.04 K/uL 0.04-0.40 = 711-2) Basophil Abs (test code = 0.00 K/uL 0.00-0.10 704-7) IG Abs (test code = 0.01 K/uL 0.00-0.04 37297-4) Lab Interpretation (test Abnormal code = 41538-1) [facility] [place].[id number] 12:40:17 Test Item Value Reference Range Interpretation Comments WBC (test code = 3.6 K/uL 4.0-11.0 L 6690-2) RBC (test code = 789-8) 2.94 See_Comment L [Au tomated message] The system [employer] generated this result transmitted ref erence range: 4.50 - 6 .00 M/uL. The refer ence range was not u sed to interpret this result as normal/abnor mal. Hgb (test code = 718-7) 10.0 See_Comment L [Au tomated message] The system [employer] generated this result transmitted ref erence range: [...] See_Comment [Automate d message] 786-4) The system [employer] generated this result transmitted ref erence range: 31.0 - 3 6.0 gm/dL. The refe rence range was not u sed to interpret this result as normal/abnor mal. RDW-SD (test code = 47.9 fL 35.1-46.3 H 84128-1) RDW-CV (test code = 13.1 % 12.0-15.5 788-0) Platelet count (test 115 K/uL 140-440 L code = 777-3) MPV (test code = 10.5 fL 4.0-10.4 H 53738-3) INRBC (test code = 0.0 % <=0.0 The INRBC (instrument 35853-0) NRBC) value ref lects the enumeration of nucleated red b lood cells contained in a 200uL sampleof whole blood analyzed by the instrument. Thi s value maydiffer from the NRBC value repo rted in a manual differential,wh ich is based on a 100 cell differential. Lab Interpretation Abnormal (test code = 91527-6) [facility] CenterFC CD4/CD8 Hboqt3745-09-54 01:27:21 Test Item Value Reference Interpretation Comments Range WBC Count, Ratio Add 11.5 K/uL Test pe rformed (test code = 8461) by:The [facility] CenterFlow Cytometry Igxfgxayym[address] [place] [address] 60071 Gated Lymph Region, 6.3 % Test per formed Ratio Add (test code by:The = 8353) [facility] CenterFlow Cytometry K[address]nuuuhuq[address] [place] [address] 53145 CD3+ (test code = 84.7 % 54.9-90.4 Test perfo rmed 8223) by:The [facility] CenterFlow Cytometry Mmxwlldepe[address] [place] [address] 15255 CD3+ Absolute (test 614 See_Comment Test per formed code = 8224) by:The [facility] CenterFlow Cytometry Bcknqnhuor[address] [place] [address] 10331 [Automate d message] The system which generated this result transmitted reference range : 410 - 2,259 cells/mcL. The reference range was not used to interpret this result as normal/abnormal . CD3+CD4+ (test code 45.2 % 31.1-60.6 Test per formed = 8228) by:The [facility] CenterFlow Cytometry Ykplqbnagd[address] [place] [address] 55626 CD3+CD4+ Absolute 327 See_Comment Test perfo rmed (test code = 8229) by:The [facility] CenterFlow Cytometry K[address]gafrnmj[address] [place] [address] 55200 [Automate d message] The system which generated this result transmitted reference range : 263 - 1,426 cells/mcL. The reference range was not used to interpret this result as normal/abnormal . CD3+CD8+ (test code 39.5 % 10.8-39.7 Test per formed = 8249) by:The [facility] CenterFlow Cytometry Vokyptwipq[address] [place] [address] 83869 CD3+CD8+ Absolute 286 See_Comment Test perfo rmed (test code = 8250) by:The [facility] CenterFlow Cytometry Vxpcytwero[address] [place] [address] 90097 [Automate d message] The system which generated this result transmitted reference range : 30 - 891 cells/mcL. The reference range was not used to interpret this result as normal/abnormal . CD4+/CD8+ Ratio 1.14 1.80-3.50 L Test perform ed (test code = 8272) by:The [facility] CenterFlow Cytometry [address]fsh[address] [place] [address] 55792 JOAQUIN (test code = This test was JOAQUIN) developed and its performance characteristics determined by [facility] Clinical Flow Cytometry Laboratory. It has not [...] testing. Lab Interpretation Abnormal (test code = 66715-0) [facility] CenterFC CD4/CD8 [id number] 01:27:21 Test Item Value Reference Interpretation Comments Range WBC Count, Ratio Add 11.5 K/uL Test pe rformed (test code = 8461) by:The [facility] CenterFlow Cytometry Bvvacxjcby8030[address] [place] [address] 75282 Gated Lymph Region, 6.3 % Test per formed Ratio Add (test code by:The = 8353) [facility] CenterFlow Cytometry Heubfjdnyf76[address] [place] [address] 16696 CD3+ (test code = 84.7 % 54.9-90.4 Test perfo rmed 8223) by:The [facility] CenterFlow Cytometry Vbisplhdqu7490[address] [place] [address] 77256 CD3+ Absolute (test 614 See_Comment Test per formed code = 8224) by:The [facility] CenterFlow Cytometry Dogntfvepg7395[address] [place] [address] 26580 [Automate d message] The system which generated this result transmitted reference range : 410 - 2,259 cells/mcL. The reference range was not used to interpret this result as normal/abnormal . CD3+CD4+ (test code 45.2 % 31.1-60.6 Test per formed = 8228) by:The [facility] CenterFlow Cytometry Znwqivalyi[address] [place] [address] 15906 CD3+CD4+ Absolute 327 See_Comment Test perfo rmed (test code = 8229) by:The [facility] CenterFlow Cytometry [address]dnjfwjisi[address] [place], [place] [address] [Automate d message] The system which generated this result transmitted reference range : 263 - 1,426 cells/mcL. The reference range was not used to interpret this result as normal/abnormal . CD3+CD8+ (test code 39.5 % 10.8-39.7 Test per formed = 8249) by:The [facility] CenterFlow Cytometry Zxebxpwf[address] [place] [address] CD3+CD8+ Absolute 286 See_Comment Test perfo rmed (test code = 8250) by:The [facility] CenterFlow Cytometry Uvzjcmftue[address] [place] [address] [Automate d message] The system which generated this result transmitted reference range : 30 - 891 cells/mcL. The reference range was not used to interpret this result as normal/abnormal . CD4+/CD8+ Ratio 1.14 1.80-3.50 L Test perform ed (test code = 8272) by:The [facility] CenterFlow Cytometry Drwxygmlvn[address] [place] [address] JOAQUIN (test code = This test was JOAQUIN) developed and its performance characteristics determined by [facility] Clinical Flow Cytometry Laboratory. It has not [...] testing. Lab Interpretation Abnormal (test code = 42540-1) [facility] CenterFC CD4/CD8 Qmdip5184-72-72 01:27:21 Test Item Value Reference Interpretation Comments Range WBC Count, Ratio Add 11.5 K/uL Test pe rformed (test code = 8461) by:The [facility] CenterFlow Cytometry Bevqyxhoez[address] [place] [address] 45305 Gated Lymph Region, 6.3 % Test per formed Ratio Add (test code by:The = 8353) [facility] CenterFlow Cytometry Rocewynvgn[address] [place] [address] 31222 CD3+ (test code = 84.7 % 54.9-90.4 Test perfo rmed 8223) by:The [facility] CenterFlow Cytometry [address]jirznnwhj[address] [place] [address] 45309 CD3+ Absolute (test 614 See_Comment Test per formed code = 8224) by:The [facility] CenterFlow Cytometry Nvzfzxicsa[address] [place] [address] 64904 [Automate d message] The system which generated this result transmitted reference range : 410 - 2,259 cells/mcL. The reference range was not used to interpret this result as normal/abnormal . CD3+CD4+ (test code 45.2 % 31.1-60.6 Test per formed = 8228) by:The [facility] CenterFlow Cytometry Mwovepkebg[address] [place] [address] 81637 CD3+CD4+ Absolute 327 See_Comment Test perfo rmed (test code = 8229) by:The [facility] CenterFlow Cytometry Eipidzbjlv17[address] [place] [address] 39635 [Automate d message] The system which generated this result transmitted reference range : 263 - 1,426 cells/mcL. The reference range was not used to interpret this result as normal/abnormal . CD3+CD8+ (test code 39.5 % 10.8-39.7 Test per formed = 8249) by:The [facility] CenterFlow Cytometry Sluzbhpant0560[address] [place] [address] 98082 CD3+CD8+ Absolute 286 See_Comment Test perfo rmed (test code = 8250) by:The [facility] CenterFlow Cytometry Srsjijtkzy8718[address] [place] [address] 41496 [Automate d message] The system which generated this result transmitted reference range : 30 - 891 cells/mcL. The reference range was not used to interpret this result as normal/abnormal . CD4+/CD8+ Ratio 1.14 1.80-3.50 L Test perform ed (test code = 8272) by:The [facility] CenterFlow Cytometry Ikwaqqyswc668[address] [place] [address] 45366 JOAQUIN (test code = This test was JOAQUIN) developed and its performance characteristics determined by [facility] Clinical Flow Cytometry Laboratory. It has not [...] testing. Lab Interpretation Abnormal (test code = 59373-6) [facility] CenterFC CD4/CD8 [id number] 01:27:21 Test Item Value Reference Interpretation Comments Range WBC Count, Ratio Add 11.5 K/uL Test pe rformed (test code = 8461) by:The [facility] CenterFlow Cytometry Npomotiszp814[address] [place] [address] 97162 Gated Lymph Region, 6.3 % Test per formed Ratio Add (test code by:The = 8353) [facility] CenterFlow [facility]ometry Twxwpcsopm0465[address] [place] [address] 47914 CD3+ (test code = 84.7 % 54.9-90.4 Test perfo rmed 8223) by:The [facility] CenterFlow Cytometry Fenafsonjr[address] [place] [address] 61605 CD3+ Absolute (test 614 See_Comment Test per formed code = 8224) by:The [facility] CenterFlow Cytometry Kalunzmetb0449[address] [place] [address] 49585 [Automate d message] The system which generated this result transmitted reference range : 410 - 2,259 cells/mcL. The reference range was not used to interpret this result as normal/abnormal . CD3+CD4+ (test code 45.2 % 31.1-60.6 Test per formed = 8228) by:The [facility] CenterFlow Cytometry Qqvxzhbjej6[address] [place] [address] 45584 CD3+CD4+ Absolute 327 See_Comment Test perfo rmed (test code = 8229) by:The [facility] CenterFlow Cytometry Efxanjyizw12[address] [place] [address] 15481 [Automated message] The system which generated this result transmitted reference range : 263 - 1,426 cells/mcL. The reference range was not used to interpret this result as normal/abnormal . CD3+CD8+ (test code 39.5 % 10.8-39.7 Test per formed = 8249) by:The [facility] CenterFlow Cytometry Hwwvgrmcsq[address] [place], [place] [address] CD3+CD8+ Absolute 286 See_Comment Test perfo rmed (test code = 8250) by:The [facility] CenterFlow [facility]ometry Ntspzwbcga357[address] [place] [address] 58106 [Automate d message] The system which generated this result transmitted reference range : 30 - 891 cells/mcL. The reference range was not used to interpret this result as normal/abnormal . CD4+/CD8+ Ratio 1.14 1.80-3.50 L Test perform ed (test code = 8272) by:The [facility] CenterFlow [facility]ometry [address]kgkiqikj[address] [place], [place] [address] JOAQUIN (test code = This test was JOAQUIN) developed and its performance characteristics determined by [facility] Clinical Flow Cytometry Laboratory. It has not [...] testing. Lab Interpretation Abnormal (test code = 30231-4) [facility]FC CD4/CD8 Tntlv4804-25-78 01:27:21 Test Item Value Reference Interpretation Comments Range WBC Count, Ratio Add 11.5 K/uL Test pe rformed (test code = 8461) by:The [facility] CenterFlow Cytometry Axxztxwbrt[address] [place] [address] 23254 Gated Lymph Region, 6.3 % Test per formed Ratio Add (test code by:The = 8353) [facility] Jcwckexrzc[address] [place] [address] 79050 CD3+ (test code = 84.7 % 54.9-90.4 Test perfo rmed 8223) by:The [facility] CenterFlow [facility] Ievxxqbiyo6235[address] [place] [address] 65620 CD3+ Absolute (test 614 See_Comment Test per formed code = 8224) by:The [facility] CenterFlow Cytometry Klwfbzawpz[address] [place] [address] 52012 [Automate d message] The system which generated this result transmitted reference range : 410 - 2,259 cells/mcL. The reference range was not used to interpret this result as normal/abnormal . CD3+CD4+ (test code 45.2 % 31.1-60.6 Test per formed = 8228) by:The [facility] CenterFlow [facility]ometry Yffjrcqkrr[address] [place], [place] [address] CD3+CD4+ Absolute 327 See_Comment Test perfo rmed (test code = 8229) by:The [facility] CenterFlow Cytometry Q[address]bfsczpgd[address] [place] [address] [Automate d message] The system which generated this result transmitted reference range : 263 - 1,426 cells/mcL. The reference range was not used to interpret this result as normal/abnormal . CD3+CD8+ (test code 39.5 % 10.8-39.7 Test per formed = 8249) by:The [facility] CenterFlow [facility]ometry Jybmzhiqnb[address] [place], [place] [address] CD3+CD8+ Absolute 286 See_Comment Test perfo rmed (test code = 8250) by:The [facility] CenterFlow [facility]ometry Eszuayxeqx[address] [place] [address] [Automate d message] The system which generated this result transmitted reference range : 30 - 891 cells/mcL. The reference range was not used to interpret this result as normal/abnormal . CD4+/CD8+ Ratio 1.14 1.80-3.50 L Test perform ed (test code = 8272) by:The [facility] Center[facility] Ooraedhoaj[address] [place], [place] [address] JOAQUIN (test code = This test was JOAQUIN) developed and its performance characteristics determined by [facility] Clinical Flow Cytometry Laboratory. It has not [...] testing. Lab Interpretation Abnormal (test code = 38248-7) [facility]FC CD4/CD8 Vcpij8440-86-54 01:27:21 Test Item Value Reference Interpretation Comments Range WBC Count, Ratio Add 11.5 K/uL Test pe rformed (test code = 8461) by:The [facility] CenterFlow Cytometry Deldqrirdp6412[address] [place] [address] 68823 Gated Lymph Region, 6.3 % Test per formed Ratio Add (test code by:The = 8353) [facility]Flow [facility] Ikvaataqtz918[address] [place] [address] 30622 CD3+ (test code = 84.7 % 54.9-90.4 Test perfo rmed 8223) by:The [facility] CenterFlow [facility]ometry Danklfinaz[address] [place] [address] 77164 CD3+ Absolute (test 614 See_Comment Test per formed code = 8224) by:The [facility] CenterFlow [facility]ometry Xbkoxydvfb7477[address] [place] [address] 68556 [Automate d message] The system which generated this result transmitted reference range : 410 - 2,259 cells/mcL. The reference range was not used to interpret this result as normal/abnormal . CD3+CD4+ (test code 45.2 % 31.1-60.6 Test per formed = 8228) by:The [facility] CenterFlow [facility]ometry Jlghngstih[address] [place] [address] 44807 CD3+CD4+ Absolute 327 See_Comment Test perfo rmed (test code = 8229) by:The [facility] Center[facility]ometry Kouruuragl[address] [place] [address] 72469 [Automate d message] The system which generated this result transmitted reference range : 263 - 1,426 cells/mcL. The reference range was not used to interpret this result as normal/abnormal . CD3+CD8+ (test code 39.5 % 10.8-39.7 Test per formed = 8249) by:The [facility] CenterFlow [facility]ometry Fjmxduqhxq[address] [place] [address] 20364 CD3+CD8+ Absolute 286 See_Comment Test perfo rmed (test code = 8250) by:The [facility] Vrevcgwcsk[address] [place] [address] 89454 [Automate d message] The system which generated this result transmitted reference range : 30 - 891 cells/mcL. The reference range was not used to interpret this result as normal/abnormal . CD4+/CD8+ Ratio 1.14 1.80-3.50 L Test perform ed (test code = 8272) by:The [facility] CenterFlow Cytometry [address] [place] [id number] JOAQUIN (test code = This test was JOAQUIN) developed and its performance characteristics determined by [facility] Clinical Flow Cytometry Laboratory. It has not [...] testing. Lab Interpretation Abnormal (test code = 29190-7) [facility] -[id number] 12:23:13 Test Item Value Reference Range Interpretation Comments Flow Cytometry Yes Test performe d by:The (Received) (test code = [facility] 8319) [facility] Cyto metry [address] [place] [address] Changba Ap Link (test NA code = 07061) [facility] Specimen Collection -[id number] 12:23:13 Test Item Value Reference Range Interpretation Comments Flow Cytometry Yes Test performe d by:The (Received) (test code = [facility] 8319) [facility] [address] [place] [address] [employer] Ap Link (test NA code = 85062) [facility] Specimen Collection -[id number] 12:23:13 Test Item Value Reference Range Interpretation Comments Flow Cytometry Yes Test performe d by:The (Received) (test code = [facility] 8319) [facility] Cyto metry [address] [place] [address] [employer] Ap Link (test NA code = 00226) [facility] Specimen Collection -[id number] 12:23:13 Test Item Value Reference Range Interpretation Comments Flow Cytometry Yes Test performe d by:The (Received) (test code = [facility] 8319) [facility] [address]wkwo[address] [place] [address] Beaker Ap Link (test NA code = 21653) [facility] Spec[facility] -[id number] 12:23:13 Test Item Value Reference Range Interpretation Comments Flow Cytometry Yes Test performe d by:The (Received) (test code = [facility] 8319) [facility] metry [address] [place] [address] Beaker Ap Link (test NA code = 63294) [facility] Spec[facility] -[id number] 12:23:13 Test Item Value Reference Range Interpretation Comments Flow Cytometry Yes Test performe d by:The (Received) (test code = [facility] 8319) [facility]ry [address] [place] [address] Beaker Ap Link (test NA code = 74982) [facility] 16:08:56 Test Item Value Reference Range Interpretation Comments IgG (test code = 6001) 1416 mg/dL 610-1616 [facility] 16:08:56 Test Item Value Reference Range Interpretation Comments IgG (test code = 6001) 1416 mg/dL 610-1616 [facility] 16:08:56 Test Item Value Reference Range Interpretation Comments IgG (test code = 6001) 1416 mg/dL 610-1616 [facility] 16:08:56 Test Item Value Reference Range Interpretation Comments IgG (test code = 6001) 1416 mg/dL 610-1616 [facility] 16:08:56 Test Item Value Reference Range Interpretation Comments IgG (test code = 6001) 1416 mg/dL 610-1616 [facility] 16:08:56 Test Item Value Reference Range Interpretation Comments IgG (test code = 6001) 1416 mg/dL 610-1616 [facility] Add-On Test 2022-06-19 15:57:49 Test Item Value Reference Range Interpretation Comments Ordered (test code = Test Added 6568) Test Needed (test magnesium level, code = 7604) phosphorous level, calcium level, albumin [facility] Add-On Test 2022-06-19 15:57:49 Test Item Value Reference Range Interpretation Comments Ordered (test code = Test Added 6568) Test Needed (test magnesium level, code = 7604) phosphorous level, calcium level, albumin [facility] Add-On Test 2022-06-19 15:57:49 Test Item Value Reference Range Interpretation Comments Ordered (test code = Test Added 6568) Test Needed (test magnesium level, code = 7604) phosphorous level, calcium level, albumin [facility] Add-On Test 2022-06-19 15:57:49 Test Item Value Reference Range Interpretation Comments Ordered (test code = Test Added 6568) Test Needed (test magnesium level, code = 7604) phosphorous level, calcium level, albumin [facility] Add-On Test 2022-06-19 15:57:49 Test Item Value Reference Range Interpretation Comments Ordered (test code = Test Added 6568) Test Needed (test magnesium level, code = 7604) phosphorous level, calcium level, albumin [facility] Add-On Test 2022-06-19 15:57:49 Test Item Value Reference Range Interpretation Comments Ordered (test code = Test Added 6568) Test Needed (test magnesium level, code = 7604) phosphorous level, calcium level, albumin [facility] Interpretation Antibody Screen [id number] 14:43:39 Test Item Value Reference Range Interpretation Comments TMP Auto Neg At the present ABSC Interp time, patient (test code = plasma shows no ____SWATI VOSS MD 7235) evidence of RBC - 33192Swabz elbert by: alloantibodies. SWATI NAQVI MD - [id number] D ate/Time: 06.19.2022 8:43 AM INTRAVENOUS THERAPY NURSE Transcribed Gonzalez e/Time: 06.19.2022 8:43 AM CSTElectronical ly Signed By: SWATI SHARPE MD - [id number] on 05.30 8:43 AM C [facility] CenterElectrolyte [id number] 11:10:37 Test Item Value Reference Range Interpretation Comments Sodium Lvl (test code = 133 See_Comment L [Au tomated message] 2951-2) The system [employer] generated this result transmitted ref erence range: 136 - 14 5 mEq/L. The refe rence range was not u sed to interpret this result as normal/abnor mal. Potassium Lvl (test code 3.9 See_Comment [A utomated message] = 2823-3) The system [employer] generated this result transmitted ref erence range: 3.5 - 5. 1 mEq/L. The refe rence range was not u sed to interpret this result as normal/abnor mal. Chloride (test code = 101 See_Comment [Auto mated message] 0) The system [employer] generated this result transmitted ref erence range: 98 - 107 mEq/L. The refe rence range was not u sed to interpret this result as normal/abnor mal. CO2 (test code = 2027-12) 21 See_Comment L [A utomated message] The system [employer] generated this result transmitted ref erence range: 22 - 29 mEq/L. The reference r sam was not used to interpret this result as normal/abnor mal. Anion Gap (test code = 11 See_Comment [Aut omated message] 13356-4) The system [employer] generated this result transmitted ref erence range: 4 - 14 m Eq/L. The reference r sam was not used to interpret this result as normal/abnor mal. Lab Interpretation (test Abnormal code = 16083-9) [facility] [id number] 11:10:37 Test Item Value Reference Range Interpretation Comments Sodium Lvl (test code = 133 See_Comment L [Au tomated message] 2951-2) The system [employer] generated this result transmitted ref erence range: 136 - 14 5 mEq/L. The refe rence range was not u sed to interpret this result as normal/abnor mal. Potassium Lvl (test code 3.9 See_Comment [A utomated message] = 2823-3) The system [employer] generated this result transmitted ref erence range: 3.5 - 5. 1 mEq/L. The refe rence range was not u sed to interpret this result as normal/abnor mal. Chloride (test code = 101 See_Comment [Auto mated message] ) The system [employer] generated this result transmitted ref erence range: 98 - 107 mEq/L. The refe rence range was not u sed to interpret this result as normal/abnor mal. CO2 (test code = 2027-12) 21 See_Comment L [A utomated message] The system [employer] generated this result transmitted ref erence range: 22 - 29 mEq/L. The reference r sam was not used to interpret this result as normal/abnor mal. Anion Gap (test code = 11 See_Comment [Aut omated message] 99212-3) The system [employer] generated this result transmitted ref erence range: 4 - 14 m Eq/L. The reference r sam was not used to interpret this result as normal/abnor mal. Lab Interpretation (test Abnormal code = 13071-8) [facility] Center[facility]ro[facility] [id number] 11:10:37 Test Item Value Reference Range Interpretation Comments Sodium Lvl (test code = 133 See_Comment L [Au tomated message] 2951-2) The system [employer] generated this result transmitted ref erence range: 136 - 14 5 mEq/L. The refe rence range was not u sed to interpret this result as normal/abnor mal. Potassium Lvl (test code 3.9 See_Comment [A utomated message] = 2823-3) The system [employer] generated this result transmitted ref erence range: 3.5 - 5. 1 mEq/L. The refe rence range was not u sed to interpret this result as normal/abnor mal. Chloride (test code = 101 See_Comment [Auto mated message] ) The system [employer] generated this result transmitted ref erence range: 98 - 107 mEq/L. The refe rence range was not u sed to interpret this result as normal/abnor mal. CO2 (test code = 2027-12) 21 See_Comment L [A utomated message] The system [employer] generated this result transmitted ref erence range: 22 - 29 mEq/L. The reference r sam was not used to interpret this result as normal/abnor mal. Anion Gap (test code = 11 See_Comment [Aut omated message] 59543-0) The system [employer] generated this result transmitted ref erence range: 4 - 14 m Eq/L. The reference r sam was not used to interpret this result as normal/abnor mal. Lab Interpretation (test Abnormal code = 12752-9) [facility] [id number] 11:10:37 Test Item Value Reference Range Interpretation Comments Sodium Lvl (test code = 133 See_Comment L [Au tomated message] 1341-2) The system [employer] generated this result transmitted ref erence range: 136 - 14 5 mEq/L. The refe rence range was not u sed to interpret this result as normal/abnor mal. Potassium Lvl (test code 3.9 See_Comment [A utomated message] = 2823-3) The system [employer] generated this result transmitted ref erence range: 3.5 - 5. 1 mEq/L. The refe rence range was not u sed to interpret this result as normal/abnor mal. Chloride (test code = 101 See_Comment [Auto mated message] ) The system [employer] generated this result transmitted ref erence range: 98 - 107 mEq/L. The refe rence range was not u sed to interpret this result as normal/abnor mal. CO2 (test code = 2027-12) 21 See_Comment L [A utomated message] The system [employer] generated this result transmitted ref erence range: 22 - 29 mEq/L. The reference r sam was not used to interpret this result as normal/abnor mal. Anion Gap (test code = 11 See_Comment [Aut omated message] 73209-8) The system [employer] generated this result transmitted ref erence range: 4 - 14 m Eq/L. The reference r sam was not used to interpret this result as normal/abnor mal. Lab Interpretation (test Abnormal code = 28732-7) [facility] [id number] 11:10:37 Test Item Value Reference Range Interpretation Comments Sodium Lvl (test code = 133 See_Comment L [Au tomated message] 2951-2) The system [employer] generated this result transmitted ref erence range: 136 - 14 5 mEq/L. The refe rence range was not u sed to interpret this result as normal/abnor mal. Potassium Lvl (test code 3.9 See_Comment [A utomated message] = 2823-3) The system [employer] generated this result transmitted ref erence range: 3.5 - 5. 1 mEq/L. The refe rence range was not u sed to interpret this result as normal/abnor mal. Chloride (test code = 101 See_Comment [Auto mated message] 2074-0) The system [employer] generated this result transmitted ref erence range: 98 - 107 mEq/L. The refe rence range was not u sed to interpret this result as normal/abnor mal. CO2 (test code = 2027-9) 21 See_Comment L [A utomated message] The system [employer] generated this result transmitted ref erence range: 22 - 29 mEq/L. The reference r sam was not used to interpret this result as normal/abnor mal. Anion Gap (test code = 11 See_Comment [Aut omated message] 88541-0) The system [employer] generated this result transmitted ref erence range: 4 - 14 m Eq/L. The reference r sam was not used to interpret this result as normal/abnor mal. Lab Interpretation (test Abnormal code = 49771-5) [facility] Center[facility] [id number] 11:10:37 Test Item Value Reference Range Interpretation Comments Sodium Lvl (test code = 133 See_Comment L [Au tomated message] 2951-2) The system [employer] generated this result transmitted ref erence range: 136 - 14 5 mEq/L. The refe rence range was not u sed to interpret this result as normal/abnor mal. Potassium Lvl (test code 3.9 See_Comment [A utomated message] = 2823-3) The system [employer] generated this result transmitted ref erence range: 3.5 - 5. 1 mEq/L. The refe rence range was not u sed to interpret this result as normal/abnor mal. Chloride (test code = 101 See_Comment [Auto mated message] 2074-0) The system [employer] generated this result transmitted ref erence range: 98 - 107 mEq/L. The refe rence range was not u sed to interpret this result as normal/abnor mal. CO2 (test code = 2027-9) 21 See_Comment L [A utomated message] The system [employer] generated this result transmitted ref erence range: 22 - 29 mEq/L. The reference r sam was not used to interpret this result as normal/abnor mal. Anion Gap (test code = 11 See_Comment [Aut omated message] 08608-5) The system [employer] generated this result transmitted ref erence range: 4 - 14 m Eq/L. The reference r sam was not used to interpret this result as normal/abnor mal. Lab Interpretation (test Abnormal code = 90493-5) [facility] Center[facility] [id number] 11:10:36 Test Item Value Reference Range Interpretation Comments Glucose Level (test 80 mg/dL 70-99 Effectiv e 11/22/15, the code = 2345-7) glucose refer ence intervals have been updated based o n [place] [employer] aroldo delines (Standards of M edical Care in Diabete s 2016. Diabetes Care 2 016; 39: S13-S22).Fastin g blood glucose:Normal: 70-99 mg/dLImpaired f asting glucose (increa sed risk for diabetes or pre-diabetes): 100-125 mg/dLDiabetes m ellitus: >/=126 mg/dL Ra ndom blood glucose:N ormal: 70-199 mg/dLNot e: Random glucose >100 mg /dL is associated with increased risk for diabetes [facility] [id number] 11:10:36 Test Item Value Reference Range Interpretation Comments Glucose Level (test 80 mg/dL 70-99 Effectiv e 11/22/15, the code = 2345-7) glucose refer ence intervals have been updated based o n [place] [employer] aroldo delines (Standards of edical Care in Di[place] 2016. Diabetes Care 2 016; 39: S13-S22).Fastin g blood glucose:Normal: 70-99 mg/dLImpaired f asting glucose (increa sed risk for diabetes or pre-diabetes): 100-125 mg/dLDiabetes m ellitus: >/=126 mg/dL Ra ndom blood glucose:N ormal: 70-199 mg/dLNot e: Random glucose >100 mg /dL is associated with increased risk for diabetes [facility] Center[facility] [id number] 11:10:36 Test Item Value Reference Range Interpretation Comments Glucose Level (test 80 mg/dL 70-99 Effectiv e 11/22/15, the code = 2345-7) glucose refer ence intervals have been updated based o n [place] [employer] aroldo delines (Standards of edical Care in Diab[place] s 2016. Diabetes Care 2 016; 39: S13-S22).Fastin g blood glucose:Normal: 70-99 mg/dLImpaired f asting glucose (increa sed risk for diabetes or pre-diabetes): 100-125 mg/dLDiabetes m ellitus: >/=126 mg/dL Ra ndom blood glucose:N ormal: 70-199 mg/dLNot e: Random glucose >100 mg /dL is associated with increased risk for diabetes [facility] CenterGl[facility] [id number] 11:10:36 Test Item Value Reference Range Interpretation Comments Glucose Level (test 80 mg/dL 70-99 Effectiv e 11/22/15, the code = 2345-7) glucose refer ence intervals have been updated based o n [place] [employer] aroldo delines (Standards of edical Care in Diabete s 2016. Diabetes Care 2 016; 39: S13-S22).Fastin g blood glucose:Normal: 70-99 mg/dLImpaired f asting glucose (increa sed risk for diabetes or pre-diabetes): 100-125 mg/dLDiabetes m ellitus: >/=126 mg/dL Ra ndom blood glucose:N ormal: 70-199 mg/dLNot e: Random glucose >100 mg /dL is associated with increased risk for diabetes [facility] [id number] 11:10:36 Test Item Value Reference Range Interpretation Comments Glucose Level (test 80 mg/dL 70-99 Effectiv e 11/22/15, the code = 2345-7) glucose refer ence intervals have been updated based o n [place] [employer] aroldo delines (Standards of edical Care in Diab[place] s 2016. Diabetes Care 2 016; 39: S13-S22).Fastin g blood glucose:Normal: 70-99 mg/dLImpaired f asting glucose (increa sed risk for diabetes or pre-diabetes): 100-125 mg/dLDiabetes m ellitus: >/=126 mg/dL Ra ndom blood glucose:N ormal: 70-199 mg/dLNot e: Random glucose >100 mg /dL is associated with increased risk for diabetes [facility]Gl[facility] [id number] 11:10:36 Test Item Value Reference Range Interpretation Comments Glucose Level (test 80 mg/dL 70-99 Effectiv e 11/22/15, the code = 2345-7) glucose refer ence intervals have been updated based o n [place] [employer] aroldo delines (Standards of edical Care in Diabete s 2016. Diabetes Care 2 016; 39: S13-S22).Fastin g blood glucose:Normal: 70-99 mg/dLImpaired f asting glucose (increa sed risk for diabetes or pre-diabetes): 100-125 mg/dLDiabetes m ellitus: >/=126 mg/dL Ra ndom blood glucose:N ormal: 70-199 mg/dLNot e: Random glucose >100 mg /dL is associated with increased risk for diabetes [facility] CenterCalcium Ionized, [id number] 10:56:20 Test Item Value Reference Range Interpretation Comments V Ion Ca (test code = 1.13 mmol/L 1.15-1.29 L Collec tion 54288-9) date/time has been modified t o: 03:47:00. Previous collection date/time: 04:45:00.Correc te d from 1.13 mmol/L [LOW] on 06/19/22 4:56:2 0 INTRAVENOUS THERAPY NURSE by Juan Bennett JOAQUIN (test code = JOAQUIN) test preformed within 30 mints. 06/19/2022 4:56:01 AM INTRAVENOUS THERAPY NURSE Lab Interpretation Abnormal (test code = 59790-1) [facility] CenterCalcium Ionized, [id number] 10:56:20 Test Item Value Reference Range Interpretation Comments V Ion Ca (test code = 1.13 mmol/L 1.15-1.29 L Collec tion 63195-6) date/time has been modified t o: 03:47:00. Previous collection date/time: 04:45:00.Correc te d from 1.13 mmol/L [LOW] on 06/19/22 4:56:2 0 INTRAVENOUS THERAPY NURSE by Juan Bennett JOAQUIN (test code = JOAQUIN) test preformed within 30 mints. 06/19/2022 4:56:01 AM INTRAVENOUS THERAPY NURSE Lab Interpretation Abnormal (test code = 90415-7) [facility] CenterCal[facility] Ionized, [id number] 10:56:20 Test Item Value Reference Range Interpretation Comments V Ion Ca (test code = 1.13 mmol/L 1.15-1.29 L Collec tion 88851-5) date/time has been modified t o: 03:47:00. Previous collection date/time: 04:45:00.Correc te d from 1.13 mmol/L [LOW] on 06/19/22 4:56:2 0 INTRAVENOUS THERAPY NURSE by Juan Bennett JOAQUIN (test code = JOAQUIN) test preformed within 30 mints. 06/19/2022 4:56:01 AM INTRAVENOUS THERAPY NURSE Lab Interpretation Abnormal (test code = 48931-8) [facility] Center[facility] Ion[facility], [id number] 10:56:20 Test Item Value Reference Range Interpretation Comments V Ion Ca (test code = 1.13 mmol/L 1.15-1.29 L Collec tion 01236-7) date/time has been modified t o: 03:47:00. Previous collection date/time: 04:45:00.Correc te d from 1.13 mmol/L [LOW] on 06/19/22 4:56:2 0 INTRAVENOUS THERAPY NURSE by Juan Bennett JOAQUIN (test code = JOAQUIN) test preformed within 30 mints. 06/19/2022 4:56:01 AM INTRAVENOUS THERAPY NURSE Lab Interpretation Abnormal (test code = 70100-5) [facility] CenterCalcium Ion[facility], [id number] 10:56:20 Test Item Value Reference Range Interpretation Comments V Ion Ca (test code = 1.13 mmol/L 1.15-1.29 L Collec tion 51640-1) date/time has been modified t o: 03:47:00. Previous collection date/time: 04:45:00.Correc te d from 1.13 mmol/L [LOW] on 06/19/22 4:56:2 0 INTRAVENOUS THERAPY NURSE by Juan Bennett JOAQUIN (test code = JOAQUIN) test preformed within 30 mints. 06/19/2022 4:56:01 AM INTRAVENOUS THERAPY NURSE Lab Interpretation Abnormal (test code = 06011-8) [facility] CenterCal[facility] Ion[facility], [id number] 10:56:20 Test Item Value Reference Range Interpretation Comments V Ion Ca (test code = 1.13 mmol/L 1.15-1.29 L Collec tion 33169-4) date/time has been modified t o: 03:47:00. Previous collection date/time: 04:45:00.Correc te d from 1.13 mmol/L [LOW] on 06/19/22 4:56:2 0 INTRAVENOUS THERAPY NURSE by Juan Bennett JOAQUIN (test code = JOAQUIN) test preformed within 30 mints. 06/19/2022 4:56:01 AM INTRAVENOUS THERAPY NURSE Lab Interpretation Abnormal (test code = 00817-8) [facility] [id number] 09:59:32 Test Item Value Reference Range Interpretation Comments V Lactate (test code = 2519-7) 0.8 mmol/L 0.5-1.6 [facility] CenterV [id number] 09:59:32 Test Item Value Reference Range Interpretation Comments V Lactate (test code = 2519-7) 0.8 mmol/L 0.5-1.6 [facility] CenterVB [id number] 09:59:32 Test Item Value Reference Range Interpretation Comments V Lactate (test code = 2519-7) 0.8 mmol/L 0.5-1.6 [facility] [id number] 09:59:32 Test Item Value Reference Range Interpretation Comments V Lactate (test code = 2519-7) 0.8 mmol/L 0.5-1.6 [facility] [id number] 09:59:32 Test Item Value Reference Range Interpretation Comments V Lactate (test code = 2519-7) 0.8 mmol/L 0.5-1.6 [facility] CenterVB [id number] 09:59:32 Test Item Value Reference Range Interpretation Comments V Lactate (test code = 2519-7) 0.8 mmol/L 0.5-1.6 [facility] CenterUrinalysis Microscopic Exam 2022-06-19 08:59:16 Test Item Value Reference Range Interpretation Comments UA WBC (test code = 6 See_Comment H Some rep orting 51657-1) parameters with in the Urinalysis test have changed due to the implementation of new instrumentation in the [facility] [place], [place] greater sensiti vity of measurement. Urinalysis resu lts reported by the [facility] enters using existing instrumentation , as well as Urinaly sis testing perform ed manually or by backup methodology at the Main [place] crystal l remain relative ly unchanged. New [...] code = 2 See_Comment [Automa elbert message] 28431-4) The system [employer] generated this result transmitted ref erence range: 0 - 2 /H PF. The reference range was not used to int erpret this result as normal/abnormal . UA Mucous (test code = NOT SEEN Not Seen-Trace 69152-4) /HPF UA Bacteria (test code NOT SEEN NOT SEEN /HPF = 50468-6) UA Squam Epi (test OCC None-Occasional code = 39504-1) /HPF Lab Interpretation Abnormal (test code = 91003-1) [facility] Center[facility]inal[facility] Micro[facility] Ex[facility] 2022-06-19 08:59:16 Test Item Value Reference Range Interpretation Comments UA WBC (test code = 6 See_Comment H Some rep orting 89858-0) parameters with in the Urinalysis test have changed due to the implementation of new instrumentation in the [facility] greater sensiti vity of measurement. Urinalysis resu lts reported by the [facility] C enters using existing instrumentation , as well as Urinaly sis testing perform ed manually or by backup methodology at the [facility] crystal l remain relative ly unchanged. New reporting justino eters and units will not be reported for nv l campuses. [Auto mated message] The sy stem which generated this result transmit elbert reference range : 0 - 2 /HPF. The refer ence range was not u sed to interpret this result as normal/abnor mal. UA RBC (test code = 2 See_Comment [Automa elbert message] 08498-3) The system [employer] generated this result transmitted ref erence range: 0 - 2 /H PF. The reference range was not used to int erpret this result as normal/abnormal . UA Mucous (test code = NOT SEEN Not Seen-Trace 40678-9) /HPF UA Bacteria (test code NOT SEEN NOT SEEN /HPF = 80142-4) UA Squam Epi (test OCC None-Occasional code = 53310-4) /HPF Lab Interpretation Abnormal (test code = 67713-3) [facility] 08:59:16 Test Item Value Reference Range Interpretation Comments UA WBC (test code = 6 See_Comment H Some rep orting 43399-7) parameters with in the Urinalysis test have changed due to the implementation of new instrumentation in the [facility], al lowing greater sensiti vity of measurement. Urinalysis resu lts reported by the [facility] enters using existing instrumentation , as well as Urinaly sis testing perform ed manually or by backup methodology at the [facility] crystal l remain relative ly unchanged. New reporting justino eters and units will not be reported for [facility]. [Auto mated message] The sy stem which generated this result transmit elbert reference range : 0 - 2 /HPF. The refer ence range was not u sed to interpret this result as normal/abnor mal. UA RBC (test code = 2 See_Comment [Automa elbert message] 77631-0) The system [employer] generated this result transmitted ref erence range: 0 - 2 /H PF. The reference range was not used to int erpret this result as normal/abnormal . UA Mucous (test code = NOT SEEN Not Seen-Trace 33331-0) /HPF UA Bacteria (test code NOT SEEN NOT SEEN /HPF = 15307-6) UA Squam Epi (test OCC None-Occasional code = 26702-4) /HPF Lab Interpretation Abnormal (test code = 15014-4) [facility] 08:59:16 Test Item Value Reference Range Interpretation Comments UA WBC (test code = 6 See_Comment H Some rep orting 85414-8) parameters with in the Urinalysis test have changed due to the implementation of new instrumentation in the [facility], al lowing greater sensiti vity of measurement. Urinalysis resu lts reported by the [facility] enters using existing instrumentation , as well as Urinaly sis testing perform ed manually or by backup methodology at the [facility] crystal l remain relative ly unchanged. New reporting justino eters and units will not be reported for [facility]. [Auto mated message] The sy stem which generated this result transmit elbert reference range : 0 - 2 /HPF. The refer ence range was not u sed to interpret this result as normal/abnor mal. UA RBC (test code = 2 See_Comment [Automa elbert message] 43371-0) The system [employer] generated this result transmitted ref erence range: 0 - 2 /H PF. The reference range was not used to int erpret this result as normal/abnormal . UA Mucous (test code = NOT SEEN Not Seen-Trace 18046-6) /HPF UA Bacteria (test code NOT SEEN NOT SEEN /HPF = 50888-9) UA Squam Epi (test OCC None-Occasional code = 25734-8) /HPF Lab Interpretation Abnormal (test code = 61460-8) [facility]06[facility] 08:59:16 Test Item Value Reference Range Interpretation Comments UA WBC (test code = 6 See_Comment H Some rep orting 50996-1) parameters with in the Urinalysis test have changed due to the implementation of new instrumentation in the [facility] [place], al lowing greater sensiti vity of measurement. Urinalysis resu lts reported by the [facility] enters using existing instrumentation , as well as Urinaly sis testing perform ed manually or by backup methodology at the [facility] crystal l remain relative ly unchanged. New [...] code = 2 See_Comment [Automa elbert message] 02381-8) The system [employer] generated this result transmitted ref erence range: 0 - 2 /H PF. The reference range was not used to int erpret this result as normal/abnormal . UA Mucous (test code = NOT SEEN Not Seen-Trace 84116-4) /HPF UA Bacteria (test code NOT SEEN NOT SEEN /HPF = 79830-1) UA Squam Epi (test OCC None-Occasional code = 39487-7) /HPF Lab Interpretation Abnormal (test code = 11471-6) [facility] 2022-06-19 08:59:16 Test Item Value Reference Range Interpretation Comments UA WBC (test code = 6 See_Comment H Some rep orting 24942-5) parameters with in the Urinalysis test have changed due to the implementation of new instrumentation in the [facility] [place], al lowing greater sensiti vity of measurement. Urinalysis resu lts reported by the [facility] enters using existing instrumentation , as well as Urinaly sis testing perform ed manually or by backup methodology at the [facility] [place] crystal l remain relative ly unchanged. New [...] code = 2 See_Comment [Automa elbert message] 22547-0) The system [employer] generated this result transmitted ref erence range: 0 - 2 /H PF. The reference range was not used to int erpret this result as normal/abnormal . UA Mucous (test code = NOT SEEN Not Seen-Trace 93857-0) /HPF UA Bacteria (test code NOT SEEN NOT SEEN /HPF = 31860-4) UA Squam Epi (test OCC None-Occasional code = 38412-2) /HPF Lab Interpretation Abnormal (test code = 91408-1) [facility] if Nirqosmhg5827-55-27 08:36:21 Test Item Value Reference Range Interpretation Comments UA Color (test code = 30673-4) Straw Straw-Yellow UA Appear (test code = 59711-5) Clear Clear UA Glucose (test code = [...] NEG Lab Interpretation (test code = Abnormal 55218-2) [facility]scopic if [id number] 08:36:21 Test Item Value Reference Range Interpretation Comments UA Color (test code = 52086-5) Straw Straw-Yellow UA Appear (test code = 85332-7) Clear Clear UA Glucose (test code = [...] NEG Lab Interpretation (test code = Abnormal 26201-4) [facility]opic if Swiojrilp9347-89-93 08:36:21 Test Item Value Reference Range Interpretation Comments UA Color (test code = 91322-2) Straw Straw-Yellow UA Appear (test code = 45078-2) Clear Clear UA Glucose (test code = [...] NEG Lab Interpretation (test code = Abnormal 95953-6) [facility]opic if Opembehng2509-75-52 08:36:21 Test Item Value Reference Range Interpretation Comments UA Color (test code = 12611-8) Straw Straw-Yellow UA Appear (test code = 36164-1) Clear Clear UA Glucose (test code = [...] NEG Lab Interpretation (test code = Abnormal 17516-3) [facility]opic if Ujmirvbkh8142-02-36 08:36:21 Test Item Value Reference Range Interpretation Comments UA Color (test code = 47267-3) Straw Straw-Yellow UA Appear (test code = 13309-6) Clear Clear UA Glucose (test code = [...] NEG Lab Interpretation (test code = Abnormal 79039-8) [facility]/Microscopic if [id number] 08:36:21 Test Item Value Reference Range Interpretation Comments UA Color (test code = 94648-0) Straw Straw-Yellow UA Appear (test code = 74059-1) Clear Clear UA Glucose (test code = [...] NEG Lab Interpretation (test code = Abnormal 67146-9) [facility], Nasopharyngeal [id number] 03:22:04 Test Item Value Reference Range Interpretation Comments Adenovirus (test code = Not Detected Not Detected 78500-5) Coronavirus 229E (test Not Detected Not Detected code = 91108-6) Coronavirus HKU1 (test Not Detected Not Detected code = 52714-3) Coronavirus NL63 (test Not Detected Not Detected code = 74390-3) Coronavirus OC43 (test Not Detected Not Detected code = 36972-1) COVID19 (SARS-CoV-2) Not Detected Not Detected (test code = 96025-3) Human Metapneumovirus Not Detected Not Detected (test code = 60827-7) Human Not Detected Not Detected Rhinovirus/Enterovirus (test code = 68213-5) Influenza A (test code Not Detected Not Detected = 97855-1) Influenza A H1 (test Not Detected Not Detected code = 96271-3) Influenza A H1 2009 Not Detected Not Detected (test code = 82235-6) Influenza A H3 (test Not Detected Not Detected code = 99366-1) Influenza B (test code Not Detected Not Detected = 99957-4) Parainfluenza 1 (test Not Detected Not Detected code = 91479-2) Parainfluenza 2 (test Not Detected Not Detected code = 68709-7) Parainfluenza 3 (test Not Detected Not Detected code = 24528-1) Parainfluenza 4 (test Not Detected Not Detected code = 15102-1) Respiratory Syncytial Not Detected Not Detected Virus (test code = 24775-5) Bordetella Not Detected Not Detected Parapertussis (test code = 70620-1) Bordetella pertussis Not Detected Not Detected (test code = 72735-4) Chlamydiophila Not Detected Not Detected pneumoniae (test code = 59320-8) Mycoplasma pneumoniae Not Detected Not Detected (test code = 31312-3) JOAQUIN (test code = JOAQUIN) Has patient had a positive for COVID-19 result in the last 3 months?->No The [employer]Fire RP2.1 is a real-time, nested multiplexed polymerase chain reaction test designed to simultaneously identify nucleic acids from 22 different viruses and bacteria associated with respiratory tract infection, including SARS-CoV-2, from a single nasopharyngeal swab (EVAPORATOR REPAIRER) specimen obtained from individuals suspected of respiratory [...] that may not be detected by an EVAPORATOR REPAIRER specimen. Internal controls are used to monitor [...] and high-complexity tests. The [facility] at [facility], CLIA Accreditation #[id number] and CAP Accreditation #[id number], verified the performance characteristics of this assay. [facility] performs the assay using the [employer] System. [facility], Nasopharyngeal [id number] 03:22:04 Test Item Value Reference Range Interpretation Comments Adenovirus (test code = Not Detected Not Detected 01413-3) Coronavirus 229E (test Not Detected Not Detected code = 70636-5) Coronavirus HKU1 (test Not Detected Not Detected code = 99462-8) Coronavirus NL63 (test Not Detected Not Detected code = 62463-4) Coronavirus OC43 (test Not Detected Not Detected code = 87521-1) COVID19 (SARS-CoV-2) Not Detected Not Detected (test code = 45129-8) Human Metapneumovirus Not Detected Not Detected (test code = 11161-4) Human Not Detected Not Detected Rhinovirus/Enterovirus (test code = 53719-4) Influenza A (test code Not Detected Not Detected = 83967-6) Influenza A H1 (test Not Detected Not Detected code = 28259-0) Influenza A H1 2009 Not Detected Not Detected (test code = 50888-8) Influenza A H3 (test Not Detected Not Detected code = 55975-7) Influenza B (test code Not Detected Not Detected = 58006-8) Parainfluenza 1 (test Not Detected Not Detected code = 92106-9) Parainfluenza 2 (test Not Detected Not Detected code = 37314-8) Parainfluenza 3 (test Not Detected Not Detected code = 04521-6) Parainfluenza 4 (test Not Detected Not Detected code = 18165-8) Respiratory Syncytial Not Detected Not Detected Virus (test code = 34578-5) Bordetella Not Detected Not Detected Parapertussis (test code = 07886-6) Bordetella pertussis Not Detected Not Detected (test code = 15980-8) Chlamydiophila Not Detected Not Detected pneumoniae (test code = 87345-1) Mycoplasma pneumoniae Not Detected Not Detected (test code = 84016-1) JOAQUIN (test code = JOAQUIN) Has patient had a positive for COVID-19 result in the last 3 months?->No The [employer]Fire RP2.1 is a real-time, nested multiplexed polymerase chain reaction test designed to simultaneously identify nucleic acids from 22 different viruses and bacteria associated with respiratory tract infection, including SARS-CoV-2, from a single nasopharyngeal swab (EVAPORATOR REPAIRER) specimen obtained from individuals suspected of respiratory [...] that may not be detected by an EVAPORATOR REPAIRER specimen. Internal controls are used to monitor [...] and high-complexity tests. The [facility], CLIA Accreditation #[id number] and CAP Accreditation #[id number], verified the performance characteristics of this assay. [facility] performs the assay using the [employer] System. [facility], Nasopharyngeal [id number] 03:22:04 Test Item Value Reference Range Interpretation Comments Adenovirus (test code = Not Detected Not Detected 68286-3) Coronavirus 229E (test Not Detected Not Detected code = 73074-0) Coronavirus HKU1 (test Not Detected Not Detected code = 29355-3) Coronavirus NL63 (test Not Detected Not Detected code = 32201-9) Coronavirus OC43 (test Not Detected Not Detected code = 20648-0) COVID19 (SARS-CoV-2) Not Detected Not Detected (test code = 08104-5) Human Metapneumovirus Not Detected Not Detected (test code = 45930-7) Human Not Detected Not Detected Rhinovirus/Enterovirus (test code = 40275-2) Influenza A (test code Not Detected Not Detected = 48199-3) Influenza A H1 (test Not Detected Not Detected code = 42608-7) Influenza A H1 2009 Not Detected Not Detected (test code = 48038-3) Influenza A H3 (test Not Detected Not Detected code = 62484-9) Influenza B (test code Not Detected Not Detected = 19521-8) Parainfluenza 1 (test Not Detected Not Detected code = 96804-6) Parainfluenza 2 (test Not Detected Not Detected code = 30361-5) Parainfluenza 3 (test Not Detected Not Detected code = 90872-2) Parainfluenza 4 (test Not Detected Not Detected code = 39200-6) Respiratory Syncytial Not Detected Not Detected Virus (test code = 32744-8) Bordetella Not Detected Not Detected Parapertussis (test code = 65291-1) Bordetella pertussis Not Detected Not Detected (test code = 16722-5) Chlamydiophila Not Detected Not Detected pneumoniae (test code = 34612-9) Mycoplasma pneumoniae Not Detected Not Detected (test code = 56215-8) JOAQUIN (test code = JOAQUIN) Has patient had a positive for COVID-19 result in the last 3 months?->No The BioFire RP2.1 is a real-time, nested multiplexed polymerase chain reaction test designed to simultaneously identify nucleic acids from 22 different viruses and bacteria associated with respiratory tract infection, including SARS-CoV-2, from a single nasopharyngeal swab (EVAPORATOR REPAIRER) specimen obtained from individuals suspected of respiratory [...] that may not be detected by an EVAPORATOR REPAIRER specimen. Internal controls are used to monitor [...] and high-complexity tests. The [facility], CLIA Accreditation #[id number] and CAP Accreditation #[id number], verified the performance characteristics of this assay. [facility] performs the assay using the [employer] System. [facility], Nasopharyngeal [id number] 03:22:04 Test Item Value Reference Range Interpretation Comments Adenovirus (test code = Not Detected Not Detected 35673-8) Coronavirus 229E (test Not Detected Not Detected code = 58987-4) Coronavirus HKU1 (test Not Detected Not Detected code = 00529-0) Coronavirus NL63 (test Not Detected Not Detected code = 69050-6) Coronavirus OC43 (test Not Detected Not Detected code = 09427-7) COVID19 (SARS-CoV-2) Not Detected Not Detected (test code = 97723-4) Human Metapneumovirus Not Detected Not Detected (test code = 36295-0) Human Not Detected Not Detected Rhinovirus/Enterovirus (test code = 50966-5) Influenza A (test code Not Detected Not Detected = 05523-3) Influenza A H1 (test Not Detected Not Detected code = 32654-8) Influenza A H1 2009 Not Detected Not Detected (test code = 60809-2) Influenza A H3 (test Not Detected Not Detected code = 70600-9) Influenza B (test code Not Detected Not Detected = 74449-1) Parainfluenza 1 (test Not Detected Not Detected code = 95651-9) Parainfluenza 2 (test Not Detected Not Detected code = 55720-8) Parainfluenza 3 (test Not Detected Not Detected code = 19878-5) Parainfluenza 4 (test Not Detected Not Detected code = 38038-4) Respiratory Syncytial Not Detected Not Detected Virus (test code = 20172-2) Bordetella Not Detected Not Detected Parapertussis (test code = 16112-3) Bordetella pertussis Not Detected Not Detected (test code = 36940-1) Chlamydiophila Not Detected Not Detected pneumoniae (test code = 38912-8) Mycoplasma pneumoniae Not Detected Not Detected (test code = 65862-4) JOAQUIN (test code = JOAQUIN) Has patient had a positive for COVID-19 result in the last 3 months?->No The BioFire RP2.1 is a real-time, nested multiplexed polymerase chain reaction test designed to simultaneously identify nucleic acids from 22 different viruses and bacteria associated with respiratory tract infection, including SARS-CoV-2, from a single nasopharyngeal swab (EVAPORATOR REPAIRER) specimen obtained from individuals suspected of respiratory [...] that may not be detected by an EVAPORATOR REPAIRER specimen. Internal controls are used to monitor [...] and high-complexity tests. The [facility], CLIA Accreditation #[id number] and CAP Accreditation #[id number], verified the performance characteristics of this assay. [facility] performs the assay using the [employer] System. [facility], Nasopharyngeal [id number] 03:22:04 Test Item Value Reference Range Interpretation Comments Adenovirus (test code = Not Detected Not Detected 62916-6) Coronavirus 229E (test Not Detected Not Detected code = 15555-9) Coronavirus HKU1 (test Not Detected Not Detected code = 91525-5) Coronavirus NL63 (test Not Detected Not Detected code = 41653-4) Coronavirus OC43 (test Not Detected Not Detected code = 83090-6) COVID19 (SARS-CoV-2) Not Detected Not Detected (test code = 20427-2) Human Metapneumovirus Not Detected Not Detected (test code = 49371-9) Human Not Detected Not Detected Rhinovirus/Enterovirus (test code = 44781-2) Influenza A (test code Not Detected Not Detected = 19370-5) Influenza A H1 (test Not Detected Not Detected code = 18074-4) Influenza A H1 2009 Not Detected Not Detected (test code = 24362-6) Influenza A H3 (test Not Detected Not Detected code = 23088-7) Influenza B (test code Not Detected Not Detected = 09037-3) Parainfluenza 1 (test Not Detected Not Detected code = 60224-2) Parainfluenza 2 (test Not Detected Not Detected code = 59196-7) Parainfluenza 3 (test Not Detected Not Detected code = 88236-3) Parainfluenza 4 (test Not Detected Not Detected code = 69623-4) Respiratory Syncytial Not Detected Not Detected Virus (test code = 91767-6) Bordetella Not Detected Not Detected Parapertussis (test code = 64154-8) Bordetella pertussis Not Detected Not Detected (test code = 24289-7) Chlamydiophila Not Detected Not Detected pneumoniae (test code = 35774-1) Mycoplasma pneumoniae Not Detected Not Detected (test code = 74402-5) JOAQUIN (test code = JOAQUIN) Has patient had a positive for COVID-19 result in the last 3 months?->No The [employer] TVFire RP2.1 is a real-time, nested multiplexed polymerase chain reaction test designed to simultaneously identify nucleic acids from 22 different viruses and bacteria associated with respiratory tract infection, including SARS-CoV-2, from a single nasopharyngeal swab (EVAPORATOR REPAIRER) specimen obtained from individuals suspected of respiratory [...] that may not be detected by an EVAPORATOR REPAIRER specimen. Internal controls are used to monitor [...] and high-complexity tests. The [facility], CLIA Accreditation #[id number] and CAP Accreditation #[id number], verified the performance characteristics of this assay. [facility] performs the assay using the [employer] System. [facility], Nasopharyngeal [id number] 03:22:04 Test Item Value Reference Range Interpretation Comments Adenovirus (test code = Not Detected Not Detected 93836-3) Coronavirus 229E (test Not Detected Not Detected code = 68841-5) Coronavirus HKU1 (test Not Detected Not Detected code = 24087-9) Coronavirus NL63 (test Not Detected Not Detected code = 73090-9) Coronavirus OC43 (test Not Detected Not Detected code = 38092-6) COVID19 (SARS-CoV-2) Not Detected Not Detected (test code = 46902-5) Human Metapneumovirus Not Detected Not Detected (test code = 14295-6) Human Not Detected Not Detected Rhinovirus/Enterovirus (test code = 70611-0) Influenza A (test code Not Detected Not Detected = 08406-3) Influenza A H1 (test Not Detected Not Detected code = 73209-1) Influenza A H1 2009 Not Detected Not Detected (test code = 63249-3) Influenza A H3 (test Not Detected Not Detected code = 61427-1) Influenza B (test code Not Detected Not Detected = 48298-2) Parainfluenza 1 (test Not Detected Not Detected code = 47296-2) Parainfluenza 2 (test Not Detected Not Detected code = 56161-1) Parainfluenza 3 (test Not Detected Not Detected code = 90390-4) Parainfluenza 4 (test Not Detected Not Detected code = 28510-3) Respiratory Syncytial Not Detected Not Detected Virus (test code = 94764-3) Bordetella Not Detected Not Detected Parapertussis (test code = 03566-2) Bordetella pertussis Not Detected Not Detected (test code = 60746-4) Chlamydiophila Not Detected Not Detected pneumoniae (test code = 06524-3) Mycoplasma pneumoniae Not Detected Not Detected (test code = 38787-7) JOAQUIN (test code = JOAQUIN) Has patient had a positive for COVID-19 result in the last 3 months?->No The BioFire RP2.1 is a real-time, nested multiplexed polymerase chain reaction test designed to simultaneously identify nucleic acids from 22 different viruses and bacteria associated with respiratory tract infection, including SARS-CoV-2, from a single nasopharyngeal swab (EVAPORATOR REPAIRER) specimen obtained from individuals suspected of respiratory [...] that may not be detected by an EVAPORATOR REPAIRER specimen. Internal controls are used to monitor [...] and high-complexity tests. The [facility], CLIA Accreditation #[id number] and CAP Accreditation #[id number], verified the performance characteristics of this assay. [facility] performs the assay using the [employer] System. [facility] CenterAntibody [id number] 00:24:43 Test Item Value Reference Range Interpretation Comments ABSC. (test code = 890-4) Negative ABSC [facility]ORh20[facility] 00:24:42 Test Item Value Reference Range Interpretation Comments ABORh. (test code = 882-1) A POS [facility] CenterClot Expiration [id number] 00:24:36 Test Item Value Reference Range Interpretation Comments T & S Expiration (test code = 06/21/2022 5318) [facility]era[facility]TT20[facility] 21:14:11 Test Item Value Reference Range Interpretation Comments aPTT (test code = 22.7 See_Comment L no clot 39510-3) 3:14:01 PM INTRAVENOUS THERAPY NURSE td [Automated mess age] The system [employer] generated this result transmitted ref erence range: 22.8 - 3 4.2 second(s). The reference range was not used to int erpret this result as normal/abnormal . Lab Interpretation (test Abnormal code = 55916-4) [facility]TT[facility] 21:14:11 Test Item Value Reference Range Interpretation Comments aPTT (test code = 22.7 See_Comment L no clot 91471-1) 3:14:01 PM INTRAVENOUS THERAPY NURSE td [Automated mess age] The system [employer] generated this result transmitted ref erence range: 22.8 - 3 4.2 second(s). The reference range was not used to int erpret this result as normal/abnormal . Lab Interpretation (test Abnormal code = 73037-0) [facility]TT[facility] 21:14:11 Test Item Value Reference Range Interpretation Comments aPTT (test code = 22.7 See_Comment L no clot 48297-9) 3:14:01 PM INTRAVENOUS THERAPY NURSE td [Automated mess age] The system [employer] generated this result transmitted ref erence range: 22.8 - 3 4.2 second(s). The reference range was not used to int erpret this result as normal/abnormal . Lab Interpretation (test Abnormal code = 15544-3) [facility]TT[facility] 21:14:11 Test Item Value Reference Range Interpretation Comments aPTT (test code = 22.7 See_Comment L no clot 45386-3) 3:14:01 PM INTRAVENOUS THERAPY NURSE td [Automated mess age] The system [employer] generated this result transmitted ref erence range: 22.8 - 3 4.2 second(s). The reference range was not used to int erpret this result as normal/abnormal . Lab Interpretation (test Abnormal code = 39975-2) [facility]11 Test Item Value Reference Range Interpretation Comments aPTT (test code = 22.7 See_Comment L no clot 59162-0) 3:14:01 PM INTRAVENOUS THERAPY NURSE td [Automated mess age] The system [employer] generated this result transmitted ref erence range: 22.8 - 3 4.2 second(s). The reference range was not used to int erpret this result as normal/abnormal . Lab Interpretation (test Abnormal code = 27469-5) [facility] 21:14:11 Test Item Value Reference Range Interpretation Comments aPTT (test code = 22.7 See_Comment L no clot 47025-9) 3:14:01 PM INTRAVENOUS THERAPY NURSE td [Automated mess age] The system [employer] generated this result transmitted ref erence range: 22.8 - 3 4.2 second(s). The reference range was not used to int erpret this result as normal/abnormal . Lab Interpretation (test Abnormal code = 32839-1) [facility] with [id number] 21:14:10 Test Item Value Reference Range Interpretation Comments PT (test code = 5902-2) 13.7 See_Comment no c lot 06/18/2022 3:14:01 PM INTRAVENOUS THERAPY NURSE td [Automated mess age] The system [employer] generated this result transmitted ref erence range: 11.9 - 1 4.1 second(s). The reference range was not used to int erpret this result as normal/abnormal . INR (test code = 6301-6) 1.11 0.89-1.10 H no clot 06/18/2022 3:14:01 PM INTRAVENOUS THERAPY NURSE td Lab Interpretation (test Abnormal code = 94874-0) [facility] [id number] 21:14:10 Test Item Value Reference Range Interpretation Comments PT (test code = 5902-2) 13.7 See_Comment no c lot 06/18/2022 3:14:01 PM INTRAVENOUS THERAPY NURSE td [Automated mess age] The system [employer] generated this result transmitted ref erence range: 11.9 - 1 4.1 second(s). The reference range was not used to int erpret this result as normal/abnormal . INR (test code = 6301-6) 1.11 0.89-1.10 H no clot 06/18/2022 3:14:01 PM INTRAVENOUS THERAPY NURSE td Lab Interpretation (test Abnormal code = 06851-6) [facility] with [id number] 21:14:10 Test Item Value Reference Range Interpretation Comments PT (test code = 5902-2) 13.7 See_Comment no c lot 06/18/2022 3:14:01 PM INTRAVENOUS THERAPY NURSE td [Automated mess age] The system [employer] generated this result transmitted ref erence range: 11.9 - 1 4.1 second(s). The reference range was not used to int erpret this result as normal/abnormal . INR (test code = 6301-6) 1.11 0.89-1.10 H no clot 06/18/2022 3:14:01 PM INTRAVENOUS THERAPY NURSE td Lab Interpretation (test Abnormal code = 54604-7) [facility] with [id number] 21:14:10 Test Item Value Reference Range Interpretation Comments PT (test code = 5902-2) 13.7 See_Comment no c lot 06/18/2022 3:14:01 PM INTRAVENOUS THERAPY NURSE td [Automated mess age] The system [employer] generated this result transmitted ref erence range: 11.9 - 1 4.1 second(s). The reference range was not used to int erpret this result as normal/abnormal . INR (test code = 6301-6) 1.11 0.89-1.10 H no clot 06/18/2022 3:14:01 PM INTRAVENOUS THERAPY NURSE td Lab Interpretation (test Abnormal code = 70607-0) [facility] with [id number] 21:14:10 Test Item Value Reference Range Interpretation Comments PT (test code = 5902-2) 13.7 See_Comment no c lot 06/18/2022 3:14:01 PM INTRAVENOUS THERAPY NURSE td [Automated mess age] The system [employer] generated this result transmitted ref erence range: 11.9 - 1 4.1 second(s). The reference range was not used to int erpret this result as normal/abnormal . INR (test code = 6301-6) 1.11 0.89-1.10 H no clot 06/18/2022 3:14:01 PM INTRAVENOUS THERAPY NURSE td Lab Interpretation (test Abnormal code = 79197-1) [facility] with [id number] 21:14:10 Test Item Value Reference Range Interpretation Comments PT (test code = 5902-2) 13.7 See_Comment no c lot 06/18/2022 3:14:01 PM INTRAVENOUS THERAPY NURSE td [Automated mess age] The system [employer] generated this result transmitted ref erence range: 11.9 - 1 4.1 second(s). The reference range was not used to int erpret this result as normal/abnormal . INR (test code = 6301-6) 1.11 0.89-1.10 H no clot 06/18/2022 3:14:01 PM INTRAVENOUS THERAPY NURSE td Lab Interpretation (test Abnormal code = 18426-3) [facility] [id number] 21:14:09 Test Item Value Reference Range Interpretation Comments D-Dimer (test code = 4.74 See_Comment H no clot 06/18/2022 11074-4) 3:14:01 PM INTRAVENOUS THERAPY NURSE tdThe cut off value for e xclusion of venous thromboembolism is <0.51 mcg/mL FEUs (fi brinogen equivalent unit s). [Automated mess age] The system which ge nerated this result tra nsmitted reference range : 0.10 - 0.50 mcg/ml FEU . The reference range was not used to interpr et this result as normal/abnormal . Lab Interpretation Abnormal (test code = 79729-0) [facility] [id number] 21:14:09 Test Item Value Reference Range Interpretation Comments D-Dimer (test code = 4.74 See_Comment H no clot 06/18/2022 94893-7) 3:14:01 PM INTRAVENOUS THERAPY NURSE tdThe cut off value for e xclusion of venous thromboembolism is <0.51 mcg/mL FEUs (fi brinogen equivalent unit s). [Automated mess age] The system which ge nerated this result tra nsmitted reference range : 0.10 - 0.50 mcg/ml FEU . The reference range was not used to interpr et this result as normal/abnormal . Lab Interpretation Abnormal (test code = 64707-5) [facility] [id number] 21:14:09 Test Item Value Reference Range Interpretation Comments D-Dimer (test code = 4.74 See_Comment H no clot 06/18/2022 62902-4) 3:14:01 PM INTRAVENOUS THERAPY NURSE tdThe cut off value for e xclusion of venous thromboembolism is <0.51 mcg/mL FEUs (fi brinogen equivalent unit s). [Automated mess age] The system which ge nerated this result tra nsmitted reference range : 0.10 - 0.50 mcg/ml FEU . The reference range was not used to interpr et this result as normal/abnormal . Lab Interpretation Abnormal (test code = 43808-2) [facility] [id number] 21:14:09 Test Item Value Reference Range Interpretation Comments D-Dimer (test code = 4.74 See_Comment H no clot 06/18/2022 09332-2) 3:14:01 PM INTRAVENOUS THERAPY NURSE tdThe cut off value for e xclusion of venous thromboembolism is <0.51 mcg/mL FEUs (fi brinogen equivalent unit s). [Automated mess age] The system which ge nerated this result tra nsmitted reference range : 0.10 - 0.50 mcg/ml FEU . The reference range was not used to interpr et this result as normal/abnormal . Lab Interpretation Abnormal (test code = 99435-9) [facility] [id number] 21:14:09 Test Item Value Reference Range Interpretation Comments D-Dimer (test code = 4.74 See_Comment H no clot 06/18/2022 33278-7) 3:14:01 PM INTRAVENOUS THERAPY NURSE tdThe cut off value for e xclusion of venous thromboembolism is <0.51 mcg/mL FEUs (fi brinogen equivalent unit s). [Automated mess age] The system which ge nerated this result tra nsmitted reference range : 0.10 - 0.50 mcg/ml FEU . The reference range was not used to interpr et this result as normal/abnormal . Lab Interpretation Abnormal (test code = 43824-3) [facility] [id number] 21:14:09 Test Item Value Reference Range Interpretation Comments D-Dimer (test code = 4.74 See_Comment H no clot 06/18/2022 56965-5) 3:14:01 PM INTRAVENOUS THERAPY NURSE tdThe cut off value for e xclusion of venous thromboembolism is <0.51 mcg/mL FEUs (fi brinogen equivalent unit s). [Automated mess age] The system which ge nerated this result tra nsmitted reference range : 0.10 - 0.50 mcg/ml FEU . The reference range was not used to interpr et this result as normal/abnormal . Lab Interpretation Abnormal (test code = 36516-4) [facility]CRP ([facility]-reactive protein)2022-06-18 21:10:37 Test Item Value Reference Range Interpretation Comments CRP (test code = 29.31 mg/[place] [address]-2) CRP assay are a s follows: Reference range s when used to assess cardi ac risk: <1.00 mg/L Low cardiovascular risk 1.00-3.00 mg/L Average cardiovascular risk >3.00 mg/L High cardi ovascular risk.Reference ranges when used to assess inflammatory re sponses: Less than or eq ual to 10.00 mg/L. [facility])2022-06-18 21:10:37 Test Item Value Reference Range Interpretation Comments CRP (test code = 29.31 mg/[place] [address]-3) CRP assay are a s follows: Reference range s when used to assess cardi ac risk: <1.00 mg/L Low cardiovascular risk 1.00-3.00 mg/L Average cardiovascular risk >3.00 mg/L High cardi ovascular risk.Reference ranges when used to assess inflammatory re sponses: Less than or eq ual to 10.00 mg/L. [facility])2022-06-18 21:10:37 Test Item Value Reference Range Interpretation Comments CRP (test code = 29.31 mg/[place] [address]-0) CRP assay are a s follows: Reference range s when used to assess cardi ac risk: <1.00 mg/L Low cardiovascular risk 1.00-3.00 mg/L Average cardiovascular risk >3.00 mg/L High cardi ovascular risk.Reference ranges when used to assess inflammatory re sponses: Less than or eq ual to 10.00 mg/L. [facility])2022-06-18 21:10:37 Test Item Value Reference Range Interpretation Comments CRP (test code = 29.31 mg/[place] [address]-9) CRP assay are a s follows: Reference range s when used to assess cardi ac risk: <1.00 mg/L Low cardiovascular risk 1.00-3.00 mg/L Average cardiovascular risk >3.00 mg/L High cardi ovascular risk.Reference ranges when used to assess inflammatory re sponses: Less than or eq ual to 10.00 mg/L. [facility])2022-06-18 21:10:37 Test Item Value Reference Range Interpretation Comments CRP (test code = 29.31 mg/[place] [address]-6) CRP assay are a s follows: Reference range s when used to assess cardi ac risk: <1.00 mg/L Low cardiovascular risk 1.00-3.00 mg/L Average cardiovascular risk >3.00 mg/L High cardi ovascular risk.Reference ranges when used to assess inflammatory re sponses: Less than or eq ual to 10.00 mg/L. [facility] ([facility]-reactive protein)2022-06-18 21:10:37 Test Item Value Reference Range Interpretation Comments CRP (test code = 29.31 mg/[place] [address]-5) CRP assay are a s follows: Reference range s when used to assess cardi ac risk: <1.00 mg/L Low cardiovascular risk 1.00-3.00 mg/L Average cardiovascular risk >3.00 mg/L High cardi ovascular risk.Reference ranges when used to assess inflammatory re sponses: Less than or eq ual to 10.00 mg/L. [facility] [id number] 20:58:44 Test Item Value Reference Range Interpretation Comments Total Protein (test code = 2885-2) 7.6 g/dL 6.4-8.3 [facility] [id number] 20:58:44 Test Item Value Reference Range Interpretation Comments Total Protein (test code = 2885-2) 7.6 g/dL 6.4-8.3 [facility] [id number] 20:58:44 Test Item Value Reference Range Interpretation Comments Total Protein (test code = 2885-2) 7.6 g/dL 6.4-8.3 [facility] [id number] 20:58:44 Test Item Value Reference Range Interpretation Comments Total Protein (test code = 2885-2) 7.6 g/dL 6.4-8.3 [facility] [id number] 20:58:44 Test Item Value Reference Range Interpretation Comments Total Protein (test code = 2885-2) 7.6 g/dL 6.4-8.3 [facility] [id number] 20:58:44 Test Item Value Reference Range Interpretation Comments Total Protein (test code = 2885-2) 7.6 g/dL 6.4-8.3 [facility] CenterProcalcitonin2023-02-21 20:58:32 Test Item Value Reference Range Interpretation Comments Procalcitonin (test 1.47 ng/mL <=0.08 H Procalci tonin > 2.00 code = 68037-6) ng/mL: Proca lcitonin levels above 2. 00 [...] extended diluti on as it exceeds the fitter helper's recommended carbajal it. Caution should be exercised when interpreting bui ch values and done in conjunction wit h clinical contex t. Lab Interpretation Abnormal (test code = 91096-5) [facility] Center[facility]calcitonin2023-[facility]-21 20:58:32 Test Item Value Reference Range Interpretation Comments Procalcitonin (test 1.47 ng/mL <=0.08 H Procalci tonin > 2.00 code = 19971-0) ng/mL: Proca lcitonin levels above 2. 00 [...] extended diluti on as it exceeds the fitter helper's recommended carbajal it. Caution should be exercised when interpreting bui ch values and done in conjunction [facility] clinical contex t. Lab Interpretation Abnormal (test code = 35336-5) [facility] Center[facility]cal[facility]onin2023-[facility]-21 20:58:32 Test Item Value Reference Range Interpretation Comments Procalcitonin (test 1.47 ng/mL <=0.08 H Procalci tonin > 2.00 code = 98604-9) ng/mL: Proca lcitonin levels above 2. 00 [...] extended diluti on as it exceeds the fitter helper's recommended carbajal it. Caution should be exercised when interpreting bui ch values and done in conjunction wit clinical contex t. Lab Interpretation Abnormal (test code = 15085-5) [facility]cal[facility]onin2023-[facility]-21 20:58:32 Test Item Value Reference Range Interpretation Comments Procalcitonin (test 1.47 ng/mL <=0.08 H Procalci tonin > 2.00 code = 94505-1) ng/mL: Proca lcitonin levels above 2. 00 [...] extended diluti on as it exceeds the fitter helper's recommended carbajal it. Caution should be exercised when interpreting bui ch values and done in conjunction wit h clinical contex t. Lab Interpretation Abnormal (test code = 89844-1) [facility] CenterProcalcitonin2023-[facility]-21 20:58:32 Test Item Value Reference Range Interpretation Comments Procalcitonin (test 1.47 ng/mL <=0.08 H Procalci tonin > 2.00 code = 29773-6) ng/mL: Proca lcitonin levels above 2. 00 [...] extended diluti on as it exceeds the fitter helper's recommended carbajal it. Caution should be exercised when interpreting bui ch values and done in conjunction wit h clinical contex t. Lab Interpretation Abnormal (test code = 31214-4) [facility] CenterProcalcitonin2023-[facility]-21 20:58:32 Test Item Value Reference Range Interpretation Comments Procalcitonin (test 1.47 ng/mL <=0.08 H Procalci tonin > 2.00 code = 90250-8) ng/mL: Proca lcitonin levels above 2. 00 [...] extended diluti on as it exceeds the fitter helper's recommended carbajal it. Caution should be exercised when interpreting bui ch values and done in conjunction wit h clinical contex t. Lab Interpretation Abnormal (test code = 74369-9) [facility] [id number] 20:54:16 Test Item Value Reference Range Interpretation Comments POC VB pH (test code 7.42 7.31-7.41 H = 2746-6) POC VB pCO2 (test 38 See_Comment L [Automate d message] code = 2020-07) The system [employer] generated this result transmitted ref erence range: 41 - 51 mmHg. The reference r sam was not used to interpret this result as normal/abnor mal. POC VB pO2 (test 41 mmHg code = 2705-2) POC VB TCO2 (test 26 See_Comment [Automate d message] code = 2026-04) The system [employer] generated this result transmitted ref erence range: 24 - 29 mEq/L. The reference r sam was not used to interpret this result as normal/abnor mal. POC VB Bicarb (test 24 mmol/L 23-28 code = 64406-1) POC VB Base Ex (test 0 mmol/L [...] ally sensitive biose nsors on a silicon [employer] ip that are config ured to perform spec [facility] tests. The microfabricated sensors measure analyte concent ration by an electroch emical assay. POC Sample Type Venous (test code = 6690) POC Clean Dev (test --- code = 6672) Performing Lab (test MDA Main Main Ca mpus code = 25428) [facility] Cli nical Lab, [address] [place] [address]; Earth Mover: Cyndy Ramirez MD; Waived Point of Care Testing - Cally murillo MD Lab Interpretation Abnormal (test code = 42261-3) [facility] [id number] 20:54:16 Test Item Value Reference Range Interpretation Comments POC VB pH (test code 7.42 7.31-7.41 H = 2746-6) POC VB pCO2 (test 38 See_Comment L [Automate d message] code = 2020-) The system [employer] generated this result transmitted ref erence range: 41 - 51 mmHg. The reference r sam was not used to interpret this result as normal/abnor mal. POC VB pO2 (test 41 mmHg code = 2705-2) POC VB TCO2 (test 26 See_Comment [Automate d message] code = 2026-) The system [employer] generated this result transmitted ref erence range: 24 - 29 mEq/L. The reference r sam was not used to interpret this result as normal/abnor mal. POC VB Bicarb (test 24 mmol/L 23-28 code = 51686-8) POC VB Base Ex (test 0 mmol/L [...] ally sensitive biose nsors on a silicon ch ip that are config ured to perform spec ific tests. The microfabricated sensors measure analyte concent ration by an electroch emical assay. POC Sample Type Venous (test code = 6690) POC Clean Dev (test --- code = 6672) Performing Lab (test MDA Main Main Ca mpus code = 65837) [facility] Cli nical Lab, [address] [facility] [address], [facility] [place] [address]; Earth Mover: Cyndy Ramirez MD; Waived Point of Care Testing - Cally murillo MD Lab Interpretation Abnormal (test code = 37883-9) [facility] VBG+[id number] 20:54:16 Test Item Value Reference Range Interpretation Comments POC VB pH (test code 7.42 7.31-7.41 H = 2746-6) POC VB pCO2 (test 38 See_Comment L [Automate d message] code = 2020-) The system [employer] generated this result transmitted ref erence range: 41 - 51 mmHg. The reference r sam was not used to interpret this result as normal/abnor mal. POC VB pO2 (test 41 mmHg code = 2705-2) POC VB TCO2 (test 26 See_Comment [Automate d message] code = 2026-) The system [employer] generated this result transmitted ref erence range: 24 - 29 mEq/L. The reference r sam was not used to interpret this result as normal/abnor mal. POC VB Bicarb (test 24 mmol/L 23-28 code = 05129-8) POC VB Base Ex (test 0 mmol/L [...] chemic ally sensitive biose nsors on a [employer] ip that are config ured to perform spec ific tests. The microfabricated sensors measure analyte concent ration by an electroch emical assay. POC Sample Type Venous (test code = 6690) POC Clean Dev (test --- code = 6672) Performing Lab (test MDA Main Main Ca mpus code = 38043) [facility] Cli nical Lab, [address] [facility] [address], [facility] [place] [address]; Earth Mover: Cyndy Ramirez MD; Waived Point of Care Testing - Cally murillo MD Lab Interpretation Abnormal (test code = 77476-1) [facility] [id number] 20:54:16 Test Item Value Reference Range Interpretation Comments POC VB pH (test code 7.42 7.31-7.41 H = 2746-6) POC VB pCO2 (test 38 See_Comment L [Automate d message] code = 2020-) The system [employer] generated this result transmitted ref erence range: 41 - 51 mmHg. The reference r sam was not used to interpret this result as normal/abnor mal. POC VB pO2 (test 41 mmHg code = 2705-2) POC VB TCO2 (test 26 See_Comment [Automate d message] code = 2026-) The system [employer] generated this result transmitted ref erence range: 24 - 29 mEq/L. The reference r sam was not used to interpret this result as normal/abnor mal. POC VB Bicarb (test 24 mmol/L 23-28 code = 81766-6) POC VB Base Ex (test 0 mmol/L [...] chemic ally sensitive biose nsors on a [employer] ip that are config ured to perform spec ific tests. The microfabricated sensors measure analyte concent ration by an electroch emical assay. POC Sample Type Venous (test code = 6690) POC Clean Dev (test --- code = 6672) Performing Lab (test MDA Main Main Ca mpus code = 97155) [facility] Cli nical Lab, [address], [facility] [place] [address]; Earth Mover: Cyndy Ramirez MD; Waived Point of Care Testing - Cally murillo MD Lab Interpretation Abnormal (test code = 39227-6) [facility] [id number] 20:54:16 Test Item Value Reference Range Interpretation Comments POC VB pH (test code 7.42 7.31-7.41 H = 2746-6) POC VB pCO2 (test 38 See_Comment L [Automate d message] code = 2020-) The system [employer] generated this result transmitted ref erence range: 41 - 51 mmHg. The reference r sam was not used to interpret this result as normal/abnor mal. POC VB pO2 (test 41 mmHg code = 2705-2) POC VB TCO2 (test 26 See_Comment [Automate d message] code = 2026-) The system [employer] generated this result transmitted ref erence range: 24 - 29 mEq/L. The reference r sam was not used to interpret this result as normal/abnor mal. POC VB Bicarb (test 24 mmol/L 23-28 code = 22279-6) POC VB Base Ex (test 0 mmol/L [...] chemic ally sensitive biose nsors on a [employer] ip that are config ured to perform spec ific tests. The microfabricated sensors measure analyte concent ration by an electroch emical assay. POC Sample Type Venous (test code = 6690) POC Clean Dev (test --- code = 6672) Performing Lab (test MDA Main Main Ca mpus code = 84094) [facility] Cli nical Lab, [address], [facility] [place] [address]; Earth Mover: Cyndy Ramirez MD; Waived Point of Care Testing - Cally murillo MD Lab Interpretation Abnormal (test code = 34925-6) [facility] VBG+[id number] 20:54:16 Test Item Value Reference Range Interpretation Comments POC VB pH (test code 7.42 7.31-7.41 H = 2746-6) POC VB pCO2 (test 38 See_Comment L [Automate d message] code = 2020-) The system [employer] generated this result transmitted ref erence range: 41 - 51 mmHg. The reference r sam was not used to interpret this result as normal/abnor mal. POC VB pO2 (test 41 mmHg code = 2705-2) POC VB TCO2 (test 26 See_Comment [Automate d message] code = 2026-) The system [employer] generated this result transmitted ref erence range: 24 - 29 mEq/L. The reference r sam was not used to interpret this result as normal/abnor mal. POC VB Bicarb (test 24 mmol/L 23-28 code = 79081-6) POC VB Base Ex (test 0 mmol/L [...] chemic ally sensitive biose nsors on a [employer] ip that are config ured to perform spec ific tests. The microfabricated sensors measure analyte concent ration by an electroch emical assay. POC Sample Type Venous (test code = 6690) POC Clean Dev (test --- code = 6672) Performing Lab (test MDA Main Main Ca mpus code = 70999) [facility] Cli nical Lab, [address], [facility] [place] [address]; Earth Mover: Cyndy Ramirez MD; Waived Point of Care Testing - Cally murillo MD Lab Interpretation Abnormal (test code = 59348-2) [facility] 20:48:38 Test Item Value Reference Range Interpretation Comments Fibrinogen (test code = 3255-7) 330 mg/dL 214-503 [facility] 20:48:38 Test Item Value Reference Range Interpretation Comments Fibrinogen (test code = 3255-7) 330 mg/dL 214-503 [facility] 20:48:38 Test Item Value Reference Range Interpretation Comments Fibrinogen (test code = 3255-7) 330 mg/dL 214-503 [facility] 20:48:38 Test Item Value Reference Range Interpretation Comments Fibrinogen (test code = 3255-7) 330 mg/dL 214-503 [facility] 20:48:38 Test Item Value Reference Range Interpretation Comments Fibrinogen (test code = 3255-7) 330 mg/dL 214-503 [facility] CenterFibrinogen2023-02-21 20:48:38 Test Item Value Reference Range Interpretation Comments Fibrinogen (test code = 3255-7) 330 mg/dL 214-503 [facility] CenterBlood [id number] 22:26:32 Test Item Value Reference Range Interpretation Comments Final Report (test No growth code = 8488) Path Review - Immunity and antibiotic Bottle/Isolator use may render culture (test code = 8499) negative. Ongoing infection requires repeat culture. The results have been reviewed and electronically signed by Pathologist:Kwesi Tristan MD, PhD #[id number] JOAQUIN (test code = With am labs JOAQUIN) [facility] CenterBlood Culture - Peripheral 2022-05-14 22:08:31 Test Item Value Reference Range Interpretation Comments Final Report (test No growth code = 8488) Path Review - Immunity and antibiotic Bottle/Isolator use may render culture (test code = 8499) negative. Ongoing infection requires repeat culture. The results have been reviewed and electronically signed by Pathologist:Kwesi Tristan MD, PhD #[id number] [facility] CenterCOVID-19 (SARS-CoV-2) PCR- Asymptomatic [id number] 06:49:55 Test Item Value Reference Range Interpretation Comments COVID19 (SARS Not Detected Not Detected CoV-2) Result (test code = ____This test i s a 94274-1) qualitative reverse-transcr iptase polymerase jenaro n reaction [...] patients provid ed by the manufacture r ([employer]) c an be reviewed at:https://www. fda.go v/media/951171/ downlo ad. A fact shee t for Health Care pro viders is provided by the fitter helper ([employer]) and can be reviewed at: https://www.fda .gov/m edia/279079/areli nload Results must be interpreted wit hin [...] were verified by the Microbiology Laboratory at [facility], CLIA Accreditation # : [id number] and CAP Accreditation # : [id number]. COVID19 SARS E COMMERCE SPECIALIST Swab Source (test code = 80857) COVID19 SARS Inpatient Indication (test Admission code = 80277) JOAQUIN (test code = Weekly hematology JOAQUIN) surveillance testing [facility] CenterCOVID-19 (SARS-CoV-2) PCR- Asymptomatic [id number] 06:49:55 Test Item Value Reference Range Interpretation Comments COVID19 (SARS Not Detected Not Detected CoV-2) Result (test code = ____This test i s a 73776-9) qualitative reverse-transcr iptase polymerase jenaro n reaction [...] patients provid ed by the manufacture r ([employer]) c an be reviewed at:https://www. fda.go v/media/149600/ downlo ad. A fact shee t for Health Care pro viders is provided by the fitter helper ([employer]) and can be reviewed at: https://www.fda .gov/m edia/325494/areli nload Results must be interpreted wit hin [...] specimen for te sting if clinically indicated. Thi s assay has been approved by the FDA for use only un kasie Emergency Use Authorization ( EUA) in laboratories that have been CLIA-certified to perform moderate-comple xity and high-comple xity tests. The performance characteristics of this assay were verified by the Microbiology Laboratory at [facility], CLIA Accreditation # : [id number] and CAP Accreditation # : [id number]. COVID19 SARS E COMMERCE SPECIALIST Swab Source (test code = 50093) COVID19 SARS Inpatient Indication (test Admission code = 87640) JOAQUIN (test code = Weekly hematology JOAQUIN) surveillance testing [facility] (SARS-CoV-2) PCR- Asymptomatic [id number] 06:49:55 Test Item Value Reference Range Interpretation Comments COVID19 (SARS Not Detected Not Detected CoV-2) Result (test code = ____This test i s a 31241-9) qualitative reverse-transcr iptase polymerase jenaro n reaction [...] patients provid ed by the manufacture r ([employer]) c an be reviewed at:https://www. fda.go v/media/091377/ downlo ad. A fact shee t for Health Care pro viders is provided by the fitter helper ([employer]) and can be reviewed at: https://www.fda .gov/m edia/466215/areli nload Results must be interpreted wit hin [...] were verified by the Microbiology Laboratory at [facility], CLIA Accreditation # : [id number] and CAP Accreditation # : [id number]. COVID19 SARS E COMMERCE SPECIALIST Swab Source (test code = 82198) COVID19 SARS Inpatient Indication (test Admission code = 45281) JOAQUIN (test code = Weekly hematology JOAQUIN) surveillance testing [facility] CenterCOVID-19 (SARS-CoV-2) PCR- Asymptomatic [id number] 06:49:55 Test Item Value Reference Range Interpretation Comments COVID19 (SARS Not Detected Not Detected CoV-2) Result (test code = ____This test i s a 74098-9) qualitative reverse-transcr iptase polymerase jenaro n reaction [...] patients provid ed by the manufacture r ([employer]) c an be reviewed at:https://www. fda.go v/media/757656/ downlo ad. A fact shee t for Health Care pro viders is provided by the fitter helper ([employer]) and can be reviewed at: https://www.fda .gov/m edia/085237/areli nload Results must be interpreted wit hin [...] were verified by the Microbiology Laboratory at [facility], CLIA Accreditation # : [id number] and CAP Accreditation # : [id number]. COVID19 SARS E COMMERCE SPECIALIST Swab Source (test code = 48855) COVID19 SARS Inpatient Indication (test Admission code = 87225) JOAQUIN (test code = Weekly hematology JOAQUIN) surveillance testing [facility] CenterCOVID-[facility] (SARS-CoV-2) PCR- Asymptomatic [id number] 06:49:55 Test Item Value Reference Range Interpretation Comments COVID19 (SARS Not Detected Not Detected CoV-2) Result (test code = ____This test i s a 25498-2) qualitative reverse-transcr iptase polymerase jenaro n reaction (RT-PC R) developed for t he Qui.lt LUCAS 680 0 system and inte nded [...] patients provid ed by the manufacture r ([employer]) c an be reviewed at:https://www. fda.go v/media/788211/ downlo ad. A fact shee t for Health Care pro viders is provided by the fitter helper ([employer]) and can be reviewed at: https://www.fda .gov/m edia/960554/areli nload Results must be interpreted wit hin [...] were verified by the Microbiology Laboratory at [facility], CLIA Accreditation # : [id number] and CAP Accreditation # : [id number]. COVID19 SARS E COMMERCE SPECIALIST Swab Source (test code = 21280) COVID19 SARS Inpatient Indication (test Admission code = 78004) JOAQUIN (test code = Weekly hematology JOAQUIN) surveillance testing [facility] CenterCOVID-19 (SARS-CoV-2) PCR- Asymptomatic [id number] 06:49:55 Test Item Value Reference Range Interpretation Comments COVID19 (SARS Not Detected Not Detected CoV-2) Result (test code = ____This test i s a 07564-0) qualitative reverse-transcr iptase polymerase jenaro n reaction [...] patients provid ed by the manufacture r ([employer]) c an be reviewed at:https://www. fda.go v/media/415793/ skye ad. A fact shee t for Health Care pro viders is provided by the fitter helper ([employer]) and can be reviewed at: https://www.fda .gov/m edia/545168/areli nload Results must be interpreted wit hin [...] were verified by the Microbiology Laboratory at [facility], CLIA Accreditation # : [id number] and CAP Accreditation # : [id number]. COVID19 SARS E COMMERCE SPECIALIST Swab Source (test code = 77970) COVID19 SARS Inpatient Indication (test Admission code = 64071) JOAQUIN (test code = Weekly hematology JOAQUIN) surveillance testing [facility] CenterCOVID-19 (SARS-CoV-2) PCR- Asymptomatic [id number] 06:49:55 Test Item Value Reference Range Interpretation Comments COVID19 (SARS Not Detected Not Detected CoV-2) Result (test code = ____This test i s a 20892-4) qualitative reverse-transcr iptase polymerase jenaro n reaction [...] patients provid ed by the manufacture r ([employer]) c an be reviewed at:https://www. fda.go v/media/602981/ downlo ad. A fact shee t for Health Care pro viders is provided by the fitter helper ([employer]) and can be reviewed at: https://www.fda .gov/m edia/774194/areli nload Results must be interpreted wit hin [...] were verified by the Microbiology Laboratory at [facility], CLIA Accreditation # : [id number] and CAP Accreditation # : [id number]. COVID19 SARS E COMMERCE SPECIALIST Swab Source (test code = 21605) COVID19 SARS Inpatient Indication (test Admission code = 73837) JOAQUIN (test code = Weekly hematology JOAQUIN) surveillance testing [facility] (SARS-CoV-2) PCR- Asymptomatic [id number] 06:49:55 Test Item Value Reference Range Interpretation Comments COVID19 (SARS Not Detected Not Detected CoV-2) Result (test code = ____This test i s a 42135-7) qualitative reverse-transcr iptase polymerase jenaro n reaction (RT-PC R) developed for t he Qui.lt LUCAS 680 0 system and inte nded [...] patients provid ed by the manufacture r ([employer]) c an be reviewed at:https://www. fda.go v/media/950166/ downlo ad. A fact shee t for Health Care pro viders is provided by the fitter helper ([employer]) and can be reviewed at: https://www.fda .gov/m edia/668693/areli nload Results must be interpreted wit hin [...] were verified by the Microbiology Laboratory at [facility], CLIA Accreditation # : [id number] and CAP Accreditation # : [id number]. COVID19 SARS E COMMERCE SPECIALIST Swab Source (test code = 48917) COVID19 SARS Inpatient Indication (test Admission code = 36662) JOAQUIN (test code = Weekly hematology JOAQUIN) surveillance testing [facility] Peripheral 2022-05-13 23:10:57 Test Item Value Reference Range Interpretation Comments Final Report (test code = 8488) No growth [facility] CenterLDH2023-01-16 10:55:18 Test Item Value Reference Range Interpretation Comments LDH (test code = 301 U/L 135-225 H Results gre ater than 27373-4) 1651 U/L may no t be reliable due to matrix effect w ith extended diluti on as it exceeds the fitter helper's recommended carbajal it. Caution should be exercised when interpreting bui ch values and done in conjunction wit h clinical contex t. Lab Interpretation (test Abnormal code = 33013-7) [facility] CenterLDH2023-01-16 10:55:18 Test Item Value Reference Range Interpretation Comments LDH (test code = 301 U/L 135-225 H Results gre ater than 50930-1) 1651 U/L may no t be reliable due to matrix effect w ith extended diluti on as it exceeds the fitter helper's recommended carbajal it. Caution should be exercised when interpreting bui ch values and done in conjunction wit h clinical contex t. Lab Interpretation (test Abnormal code = 30761-2) [facility] CenterAnion [id number] 10:41:11 Test Item Value Reference Range Interpretation Comments Anion Gap (test code 9 See_Comment [Autom ated message] The = 64163-3) system which ge nerated this result transmit elbert reference range : 4 - 14 mEq/L. The refe rence range was not used to interpret this result as normal/abnormal . [facility] CenterAnion [id number] 10:41:11 Test Item Value Reference Range Interpretation Comments Anion Gap (test code 9 See_Comment [Autom ated message] The = 01767-0) system which ge nerated this result transmit elbert reference range : 4 - 14 mEq/L. The refe rence range was not used to interpret this result as normal/abnormal . [facility] CenterChloride [id number] 10:41:10 Test Item Value Reference Range Interpretation Comments Chloride (test code = 103 See_Comment [Auto mated message] The ) system which ge nerated this result tra nsmitted reference range : 98 - 107 mEq/L. The refe rence range was not u sed to interpret this result as normal/abnormal . [facility] CenterChloride [id number] 10:41:10 Test Item Value Reference Range Interpretation Comments Chloride (test code = 103 See_Comment [Auto mated message] The ) system which ge nerated this result tra nsmitted reference range : 98 - 107 mEq/L. The refe rence range was not u sed to interpret this result as normal/abnormal . [facility] CenterPotassium2023-01-16 10:41:09 Test Item Value Reference Range Interpretation Comments Potassium Lvl (test code 3.4 See_Comment L [A utomated message] = 2823-3) The system [employer] generated this result transmitted ref erence range: 3.5 - 5. 1 mEq/L. The refe rence range was not u sed to interpret this result as normal/abnor mal. Lab Interpretation (test Abnormal code = 53085-7) [facility] CenterPotassium2023-01-16 10:41:09 Test Item Value Reference Range Interpretation Comments Potassium Lvl (test code 3.4 See_Comment L [A utomated message] = 2823-3) The system [employer] generated this result transmitted ref erence range: 3.5 - 5. 1 mEq/L. The refe rence range was not u sed to interpret this result as normal/abnor mal. Lab Interpretation (test Abnormal code = 94240-6) [facility] [id number] 10:41:08 Test Item Value Reference Range Interpretation Comments Sodium Lvl (test code 140 See_Comment [Auto mated message] The = 2951-2) system which ge nerated this result tra nsmitted reference range : 136 - 145 mEq/L. The refe rence range was not used to interpret this result as normal/abnormal . [facility] [id number] 10:41:08 Test Item Value Reference Range Interpretation Comments Sodium Lvl (test code 140 See_Comment [Auto mated message] The = 2951-2) system which ge nerated this result tra nsmitted reference range : 136 - 145 mEq/L. The refe rence range was not used to interpret this result as normal/abnormal . [facility] CenterGlucose, Sgrnpa1540-88-21 10:41:07 Test Item Value Reference Range Interpretation Comments Glucose Random (test 92 mg/dL 70-199 Effecti ve 11/22/15, the code = 2345-7) glucose refer ence intervals have been updated based o n [place] [employer] aroldo delines (Standards of edical Care in Diabete s 2016. Diabetes Care 2 016; 39: S13-S22).Fastin g blood glucose:Normal: 70-99 mg/dLImpaired f asting glucose (increa sed risk for diabetes or pre-diabetes): 100-125 mg/dLDiabetes m ellitus: >/=126 mg/dL Ra ndom blood glucose:N ormal: 70-199 mg/dLNot e: Random glucose >100 mg /dL is associated with increased risk for diabetes [facility] CenterGlucose, Fdjyai2322-52-03 10:41:07 Test Item Value Reference Range Interpretation Comments Glucose Random (test 92 mg/dL 70-199 Effecti ve 11/22/15, the code = 2345-7) glucose refer ence intervals have been updated based o n [place] [employer] aroldo delines (Standards of edical Care in Diabete s 2016. Diabetes Care 2 016; 39: S13-S22).Fastin g blood glucose:Normal: 70-99 mg/dLImpaired f asting glucose (increa sed risk for diabetes or pre-diabetes): 100-125 mg/dLDiabetes m ellitus: >/=126 mg/dL Ra ndom blood glucose:N ormal: 70-199 mg/dLNot e: Random glucose >100 mg /dL is associated with increased risk for diabetes [facility] CenterFractionated Alysuqndz8751-38-26 10:41:06Bili Total<0.3<=1.2 mg/dLUT [facility]ENTERUnMem[facility] KingwoodFractionated Zefcxkyfr8385-41-89 10:41:06Bili Total<0.3<=1.2 mg/dLUT [facility]ENTERUnMemorial Herm[facility] Hospital KingwoodPhosphorus [id number] 10:41:05 Test Item Value Reference Range Interpretation Comments Phosphorus (test code = 2777-1) 3.1 mg/dL 2.5-4.5 [facility] CenterPhosphorus [id number] 10:41:05 Test Item Value Reference Range Interpretation Comments Phosphorus (test code = 2777-1) 3.1 mg/dL 2.5-4.5 [facility] CenterGlomerular Filtration Rate 2022-05-13 10:41:04 Test Item Value Reference Range Interpretation Comments eGFR (test code = 109 See_Comment The eGFRcr is calculated with 134[address]) the 2020 CKD-EP I creatinine equation using [...] int erpret this result as nataly l/abnormal. [facility] CenterGlomerular Filtration Rate 2022-05-13 10:41:04 Test Item Value Reference Range Interpretation Comments eGFR (test code = 109 See_Comment The eGFRcr is calculated with 17509) the 2020 CKD-EP I creatinine equation using [...] int erpret this result as nataly l/abnormal. [facility] CenterCalcium Ziqxn7433-21-57 10:41:03 Test Item Value Reference Range Interpretation Comments Calcium Lvl (test code = 96704-4) 8.6 mg/dL 8.4-10.2 [facility] CenterCalcium Mylpj8846-41-50 10:41:03 Test Item Value Reference Range Interpretation Comments Calcium Lvl (test code = 09542-5) 8.6 mg/dL 8.4-10.2 [facility] CenterUric Txhb5531-01-62 10:41:02 Test Item Value Reference Range Interpretation Comments Uric Acid (test code = 3084-1) 2.6 mg/dL 3.4-7.0 L Lab Interpretation (test code = Abnormal 24048-7) [facility] CenterUric [id number] 10:41:02 Test Item Value Reference Range Interpretation Comments Uric Acid (test code = 3084-1) 2.6 mg/dL 3.4-7.0 L Lab Interpretation (test code = Abnormal 93408-0) [facility] CenterAlbumin Yqify6121-04-80 10:41:01 Test Item Value Reference Range Interpretation Comments Albumin Lvl (test code = 3.2 See_Comment L [A utomated message] 1750-10) The system [employer] generated this result transmitted ref erence range: 3.5 - 5. 2 gm/dL. The refe rence range was not u sed to interpret this result as normal/abnor mal. Lab Interpretation (test Abnormal code = 55728-7) [facility] CenterAlbumin Qjrnn0095-17-78 10:41:01 Test Item Value Reference Range Interpretation Comments Albumin Lvl (test code = 3.2 See_Comment L [A utomated message] 1750-10) The system [employer] generated this result transmitted ref erence range: 3.5 - 5. 2 gm/dL. The refe rence range was not u sed to interpret this result as normal/abnor mal. Lab Interpretation (test Abnormal code = 23905-5) [facility] CenterMagnesium Yijaz0607-26-98 10:41:00 Test Item Value Reference Range Interpretation Comments Magnesium (test code = 67949-6) 1.8 mg/dL 1.6-2.6 [facility] CenterMagnesium [id number] 10:41:00 Test Item Value Reference Range Interpretation Comments Magnesium (test code = 73398-7) 1.8 mg/dL 1.6-2.6 [facility] CenterAspartate Aminotransferase 2022-05-13 10:40:59 Test Item Value Reference Range Interpretation Comments AST (test code = 26 U/L See_Comment [Automated message] The 1919-11) system which ge nerated this result transmit elbert reference range : <=40. The reference range was not used to interpr et this result as nataly l/abnormal. [facility] CenterAspartate Aminotransferase 2022-05-13 10:40:59 Test Item Value Reference Range Interpretation Comments AST (test code = 26 U/L See_Comment [Automated message] The 1919-11) system which ge nerated this result transmit elbert reference range : <=40. The reference range was not used to interpr et this result as nataly l/abnormal. [facility] CenterAlkaline Igsialmhdiv3433-90-09 10:40:58 Test Item Value Reference Range Interpretation Comments Alk Phos (test code = 6768-6) 65 U/L 40-129 [facility] CenterAlkaline Jzlttrapfrh9819-59-60 10:40:58 Test Item Value Reference Range Interpretation Comments Alk Phos (test code = 6768-6) 65 U/L 40-129 [facility] CenterCarbon Dioxide Yxfax7477-56-39 10:40:57 Test Item Value Reference Range Interpretation Comments CO2 (test code = 28 See_Comment [Automated message] The 2027-12) system which ge nerated this result transmit elbert reference range : 22 - 29 mEq/L. The refe rence range was not used to interpret this result as normal/abnormal . [facility] CenterCarbon Dioxide Dhvnb4047-76-69 10:40:57 Test Item Value Reference Range Interpretation Comments CO2 (test code = 28 See_Comment [Automated message] The 2027-12) system which ge nerated this result transmit elbert reference range : 22 - 29 mEq/L. The refe rence range was not used to interpret this result as normal/abnormal . [facility] CenterAlanine Gezbxmfpoluwoxkx8774-85-88 10:40:56ALT<5<=41 U/LUT [facility]ENTERUnMem[facility] Herm[facility] Hospital KingwoodAlanine Aysezjylgjlbzkuw8858-19-03 10:40:56ALT<5<=41 U/LUT [facility] CENTERUnMem[facility] .Serum Outghrldbh4823-73-55 10:40:55 Test Item Value Reference Range Interpretation Comments Creatinine (test code = 2160-0) 0.54 mg/dL 0.67-1.17 L Lab Interpretation (test code = Abnormal 32045-7) [facility].Serum Ikltsclotl1604-51-93 10:40:55 Test Item Value Reference Range Interpretation Comments Creatinine (test code = 2160-0) 0.54 mg/dL 0.67-1.17 L Lab Interpretation (test code = Abnormal 22599-8) [facility] CenterBUN2023-01-16 10:40:54 Test Item Value Reference Range Interpretation Comments BUN (test code = 3094-0) 6-23 L Lab Interpretation (test code = Abnormal 31139-8) [facility] CenterBUN2023-01-16 10:40:54 Test Item Value Reference Range Interpretation Comments BUN (test code = 3094-0) 6-23 L Lab Interpretation (test code = Abnormal 23308-5) [facility] CenterDifferential2023-01-16 09:57:04 Test Item Value Reference [...] % 0.0-0.4 H IGRE % c ount 27161-0) includes Metamyelocytes, Myelocytes, and Promyelocytes. Neutrophil Abs (test code 2.07 K/uL 1.70-7.30 = 751-8) Lymphocyte Abs (test code 1.49 K/uL 1.00-4.80 = 731-0) Monocyte Abs (test code = 0.54 K/uL 0.08-0.70 742-7) Eosinophil Abs (test code 0.09 K/uL 0.04-0.40 = 711-2) Basophil Abs (test code = 0.01 K/uL 0.00-0.10 704-7) IG Abs (test code = 0.07 K/uL 0.00-0.04 H 29267-6) Lab Interpretation (test Abnormal code = 86706-9) [facility] CenterDifferential2023-01-16 09:57:04 Test Item Value Reference [...] % 0.0-0.4 H IGRE % c ount 05059-8) includes Metamyelocytes, Myelocytes, and Promyelocytes. Neutrophil Abs (test code 2.07 K/uL 1.70-7.30 = 751-8) Lymphocyte Abs (test code 1.49 K/uL 1.00-4.80 = 731-0) Monocyte Abs (test code = 0.54 K/uL 0.08-0.70 742-7) Eosinophil Abs (test code 0.09 K/uL 0.04-0.40 = 711-2) Basophil Abs (test code = 0.01 K/uL 0.00-0.10 704-7) IG Abs (test code = 0.07 K/uL 0.00-0.04 H 75943-0) Lab Interpretation (test Abnormal code = 30041-0) [facility].CPJ0550-86-55 09:56:58 Test Item Value Reference Range Interpretation Comments WBC (test code = 4.3 K/uL 4.0-11.0 6690-2) RBC (test code = 789-8) 2.99 See_Comment L [Au tomated message] The system [employer] generated this result transmitted ref erence range: 4.50 - 6 .00 M/uL. The refer ence range was not u sed to interpret this result as normal/abnor mal. Hgb (test code = 718-7) 10.3 See_Comment L [Au tomated message] The system [employer] generated this result transmitted ref erence range: [...] See_Comment [Automate d message] 786-4) The system [employer] generated this result transmitted ref erence range: 31.0 - 3 6.0 gm/dL. The refe rence range was not u sed to interpret this result as normal/abnor mal. RDW-SD (test code = 49.4 fL 35.1-46.3 H 23769-1) RDW-CV (test code = 13.3 % 12.0-15.5 788-0) Platelet count (test 241 K/uL 140-440 code = 777-3) MPV (test code = 9.9 fL 4.0-10.4 04666-4) INRBC (test code = 0.0 % See_Comment The INRBC (instrument 64377-3) NRBC) value ref lects the enumeration of nucleated red b lood cells contained in a 200uL sampleof whole blood analyzed by the instrument. Thi s value maydiffer from the NRBC value repo rted in a manual differential,wh ich is based on a 100 cell differential. [Automated mess age] The system [employer] generated this result transmitted ref erence range: <=0.0. T he reference range was not used to int erpret this result as normal/abnormal . Lab Interpretation Abnormal (test code = 96370-8) [facility].OFX6791-36-17 09:56:58 Test Item Value Reference Range Interpretation Comments WBC (test code = 4.3 K/uL 4.0-11.0 6690-2) RBC (test code = 789-8) 2.99 See_Comment L [Au tomated message] The system [employer] generated this result transmitted ref erence range: 4.50 - 6 .00 M/uL. The refer ence range was not u sed to interpret this result as normal/abnor mal. Hgb (test code = 718-7) 10.3 See_Comment L [Au tomated message] The system [employer] generated this result transmitted ref erence range: [...] See_Comment [Automate d message] 786-4) The system [employer] generated this result transmitted ref erence range: 31.0 - 3 6.0 gm/dL. The refe rence range was not u sed to interpret this result as normal/abnor mal. RDW-SD (test code = 49.4 fL 35.1-46.3 H 16782-8) RDW-CV (test code = 13.3 % 12.0-15.5 788-0) Platelet count (test 241 K/uL 140-440 code = 777-3) MPV (test code = 9.9 fL 4.0-10.4 45632-8) INRBC (test code = 0.0 % See_Comment The INRBC (instrument 75335-7) NRBC) value ref lects the enumeration of nucleated red b lood cells contained in a 200uL sampleof whole blood analyzed by the instrument. Thi s value maydiffer from the NRBC value repo rted in a manual differential,wh ich is based on a 100 cell differential. [Automated mess age] The system [employer] generated this result transmitted ref erence range: <=0.0. T he reference range was not used to int erpret this result as normal/abnormal . Lab Interpretation Abnormal (test code = 45957-4) [facility]2023-01-15 23:25:39 Test Item Value Reference Range Interpretation Comments Final Report (test No growth code = 8488) Path Review (test The results have been code = 8492) reviewed and electronically signed by Pathologist:KAREL PABLO MD #[id number] [facility]2023-01-15 23:25:39 Test Item Value Reference Range Interpretation Comments Final Report (test No growth code = 8488) Path Review (test The results have been code = 8492) reviewed and electronically signed by Pathologist:KAREL PABLO MD #[id number] [facility]2023-01-15 23:25:39 Test Item Value Reference Range Interpretation Comments Final Report (test No growth code = 8488) Path Review (test The results have been code = 8492) reviewed and electronically signed by Pathologist:KAREL PABLO MD #[id number] [facility] Interpretation Antibody Screen Qgyeswam2572-77-88 16:57:19 Test Item Value Reference Range Interpretation Comments TMP Auto Neg At the present ABSC Interp time, patient (test code = plasma shows no ____SWATI VOSS MD 7535) evidence of RBC - [id number] elbert by: alloantibodiMD Quentin Jang [id number] D ate/Time: 05.10.2022 10:5 7 AM INTRAVENOUS THERAPY NURSE Transcribed Gonzalez e/Time: 05.10.2022 10:5 7 AM CSTElectronical ly Signed By: MD Quentin LEE MA6 on 04.28 10:57 AM [facility] Interpretation Antibody Screen Hwcultxj9460-42-21 16:57:19 Test Item Value Reference Range Interpretation Comments TMP Auto Neg At the present ABSC Interp time, patient (test code = plasma shows no ____SWATI VOSS MD 7535) evidence of RBC - [id number] elbert by: alloantibodijona. MD Quentin URENA6Dictated D ate/Time: 05.10.2022 10:5 7 AM INTRAVENOUS THERAPY NURSE Transcribed Gonzalez e/Time: 05.10.2022 10:5 7 AM CSTElectronical ly Signed By: MD Quentin LEE MA6 on 04.28 10:57 AM [facility] Interpretation Antibody Screen Ztexcetj0480-20-54 16:57:19 Test Item Value Reference Range Interpretation Comments TMP Auto Neg At the present ABSC Interp time, patient (test code = plasma shows no ____SWATI VOSS MD 7535) evidence of RBC - [id number] elbert by: alloantibodies. SWATI NAQVI MD - [id number] D ate/Time: 05.10.2022 10:5 7 AM INTRAVENOUS THERAPY NURSE Transcribed Gonzalez e/Time: 05.10.2022 10:5 7 AM CSTElectronical ly Signed By: SWATI SHARPE MD - [id number] on 04.28 10:57 AM [facility]Antib[facility] Ezhwwu2711-59-74 15:20:59 Test Item Value Reference Range Interpretation Comments ABSC. (test code = 890-4) Negative ABSC [facility] CenterAntibody Uqhseh6086-05-60 15:20:59 Test Item Value Reference Range Interpretation Comments ABSC. (test code = 890-4) Negative ABSC [facility] CenterAntibody Tkomyl9134-53-41 15:20:59 Test Item Value Reference Range Interpretation Comments ABSC. (test code = 890-4) Negative ABSC [facility]ABORh20[facility]-01-[facility] 15:20:58 Test Item Value Reference Range Interpretation Comments ABORh. (test code = 882-1) A POS [facility]ABORh2023-01-13 15:20:58 Test Item Value Reference Range Interpretation Comments ABORh. (test code = 882-1) A POS [facility]ABORh2023-01-13 15:20:58 Test Item Value Reference Range Interpretation Comments ABORh. (test code = 882-1) A POS [facility] CenterClot Expiration [id number] 15:20:00 Test Item Value Reference Range Interpretation Comments T & S Expiration (test code = 05/13/2022 5318) [facility] CenterClot Expiration Iesc2778-33-86 15:20:00 Test Item Value Reference Range Interpretation Comments T & S Expiration (test code = 05/13/2022 5318) [facility] CenterClot Expiration [id number] 15:20:00 Test Item Value Reference Range Interpretation Comments T & S Expiration (test code = 05/13/2022 5318) [facility] CenterGlucose, Jrcpca1235-74-03 12:49:19 Test Item Value Reference Range Interpretation Comments Glucose Random (test 103 mg/dL 70-199 Effecti ve 11/22/15, the code = 2345-7) glucose refer ence intervals have been updated based o n [place] [employer] aroldo delines (Standards of M edical Care in Diabete s 2016. Diabetes Care 2 016; 39: S13-S22).Fastin g blood glucose:Normal: 70-99 mg/dLImpaired f asting glucose (increa sed risk for diabetes or pre-diabetes): 100-125 mg/dLDiabetes m ellitus: >/=126 mg/dL Ra ndom blood glucose:N ormal: 70-199 mg/dLNot e: Random glucose >100 mg /dL is associated with increased risk for diabetes [facility] CenterPhosphorus Sfrxh8125-79-66 12:49:18 Test Item Value Reference Range Interpretation Comments Phosphorus (test code = 2777-1) 3.1 mg/dL 2.5-4.5 [facility] CenterCalcium Rrhzl1823-28-60 12:49:17 Test Item Value Reference Range Interpretation Comments Calcium Lvl (test code = 33485-2) 8.7 mg/dL 8.4-10.2 [facility] CenterAlbumin Nwdky0655-32-91 12:49:16 Test Item Value Reference Range Interpretation Comments Albumin Lvl (test code = 3.2 See_Comment L [A utomated message] 9221-7) The system [employer] generated this result transmitted ref erence range: 3.5 - 5. 2 gm/dL. The refe rence range was not u sed to interpret this result as normal/abnor mal. Lab Interpretation (test Abnormal code = 53670-8) [facility] CenterAspartate Aminotransferase 2022-05-10 12:49:15 Test Item Value Reference Range Interpretation Comments AST (test code = 26 U/L See_Comment [Automated message] The 1919-11) system which ge nerated this result transmit elbert reference range : <=40. The reference range was not used to interpr et this result as nataly l/abnormal. [facility] CenterCarbon Dioxide Quvrd6755-38-32 12:49:14 Test Item Value Reference Range Interpretation Comments CO2 (test code = 27 See_Comment [Automated message] The 2027-12) system which ge nerated this result transmit elbert reference range : 22 - 29 mEq/L. The refe rence range was not used to interpret this result as normal/abnormal . [facility] CenterFractionated Mrtxyxfyr5967-70-83 12:49:13Bili Total<0.3<=1.2 mg/dLUT [facility]ENTERUnMemorial [facility] KingwoodGlomerular Filtration Dpim2245-42-94 12:49:12 Test Item Value Reference Range Interpretation Comments eGFR (test code = 110 See_Comment The [place]GFRcr [place] [address]) the 2020 CKD-EP I creatinine equation using [...] int erpret this result as nataly l/abnormal. [facility] CenterAnion [id number] 12:49:11 Test Item Value Reference Range Interpretation Comments Anion Gap (test code 9 See_Comment [Autom ated message] The = 67714-6) system which ge nerated this result transmit elbert reference range : 4 - 14 mEq/L. The refe rence range was not used to interpret this result as normal/abnormal . [facility] CenterUric Uafe9449-51-93 12:49:10 Test Item Value Reference Range Interpretation Comments Uric Acid (test code = 3084-1) 2.9 mg/dL 3.4-7.0 L Lab Interpretation (test code = Abnormal 98339-9) [facility] CenterChloride Ihdfy2012-82-19 12:49:09 Test Item Value Reference Range Interpretation Comments Chloride (test code = 104 See_Comment [Auto mated message] The ) system which ge nerated this result tra nsmitted reference range : 98 - 107 mEq/L. The refe rence range was not u sed to interpret this result as normal/abnormal . [facility] CenterMagnesium Gljqn1515-35-35 12:49:08 Test Item Value Reference Range Interpretation Comments Magnesium (test code = 93605-5) 1.7 mg/dL 1.6-2.6 [facility] CenterPotassium2023-01-13 12:49:07 Test Item Value Reference Range Interpretation Comments Potassium Lvl (test 3.6 See_Comment [Automa elbert message] The code = 2823-3) system which generated this result tra nsmitted reference range : 3.5 - 5.1 mEq/L. The reference range was not u sed to interpret this result as normal/abnormal . [facility] CenterAlkaline Yckxzjgcxmw5548-54-52 12:49:06 Test Item Value Reference Range Interpretation Comments Alk Phos (test code = 6768-6) 66 U/L 40-129 [facility]odium Ddkap0835-57-35 12:49:05 Test Item Value Reference Range Interpretation Comments Sodium Lvl (test code 140 See_Comment [Auto mated message] The = 2951-2) system which ge nerated this result tra nsmitted reference range : 136 - 145 mEq/L. The refe rence range was not used to interpret this result as normal/abnormal . [facility] CenterAlanine Bzeqrgjtxzoyzbue7993-00-16 12:49:04 Test Item Value Reference Range Interpretation Comments ALT (test code = 5 U/L See_Comment [Automated message] The 1742-6) system which ge nerated this result transmit elbert reference range : <=41. The reference range was not used to interpr et this result as nataly l/abnormal. [facility].Serum Bnxuozugmc1590-98-16 12:49:03 Test Item Value Reference Range Interpretation Comments Creatinine (test code = 2160-0) 0.52 mg/dL 0.67-1.17 L Lab Interpretation (test code = Abnormal 95850-6) [facility] CenterBUN2023-01-13 12:49:02 Test Item Value Reference Range Interpretation Comments BUN (test code = 3094-0) 5 mg/dL 6-23 L Lab Interpretation (test code = Abnormal 64257-2) [facility] CenterLDH2023-01-13 12:48:14 Test Item Value Reference Range Interpretation Comments LDH (test code = 216 U/L 135-225 Results gre ater than 1651 27888-6) U/L may not be reliable due to matrix effec t with extended diluti on as it exceeds the man ufacturer's recommended carbajal it. Caution should be exerc ised when interpreting bui ch values and done in con junction with clinical c ontext. [facility] CenterDifferential2023-01-13 12:26:11 Test Item Value Reference [...] % 0.0-0.4 H IGRE % c ount 24837-0) includes Metamyelocytes, Myelocytes, and Promyelocytes. Neutrophil Abs (test code 2.23 K/uL 1.70-7.30 = 751-8) Lymphocyte Abs (test code 1.33 K/uL 1.00-4.80 = 731-0) Monocyte Abs (test code = 0.70 K/uL 0.08-0.70 742-7) Eosinophil Abs (test code 0.08 K/uL 0.04-0.40 = 711-2) Basophil Abs (test code = 0.02 K/uL 0.00-0.10 704-7) IG Abs (test code = 0.03 K/uL 0.00-0.04 86498-3) Lab Interpretation (test Abnormal code = 07296-3) [facility].YGW2529-89-33 12:26:05 Test Item Value Reference Range Interpretation Comments WBC (test code = 4.4 K/uL 4.0-11.0 6690-2) RBC (test code = 789-8) 3.13 See_Comment L [Au tomated message] The system [employer] generated this result transmitted ref erence range: 4.50 - 6 .00 M/uL. The refer ence range was not u sed to interpret this result as normal/abnor mal. Hgb (test code = 718-7) 10.7 See_Comment L [Au tomated message] The system [employer] generated this result transmitted ref erence range: [...] See_Comment [Automate d message] 786-4) The system [employer] generated this result transmitted ref erence range: 31.0 - 3 6.0 gm/dL. The refe rence range was not u sed to interpret this result as normal/abnor mal. RDW-SD (test code = 49.9 fL 35.1-46.3 H 04899-9) RDW-CV (test code = 13.6 % 12.0-15.5 788-0) Platelet count (test 181 K/uL 140-440 code = 777-3) MPV (test code = 10.0 fL 4.0-10.4 88067-7) INRBC (test code = 0.0 % See_Comment The INRBC (instrument 11083-7) NRBC) value ref lects the enumeration of nucleated red b lood cells contained in a 200uL sampleof whole blood analyzed by the instrument. Thi s value maydiffer from the NRBC value repo rted in a manual differential,wh ich is based on a 100 cell differential. [Automated mess age] The system [employer] generated this result transmitted ref erence range: <=0.0. T he reference range was not used to int erpret this result as normal/abnormal . Lab Interpretation Abnormal (test code = 86886-8) [facility] CenterVancomycin Htltza4604-57-46 08:42:13 Test Item Value Reference Range Interpretation Comments Vanco Trough 9.0 See_Comment Toxic Trough Le angela: >20 (test code = mcg/mL [Automat ed message] 4092-3) The system [employer] generated this result tra nsmitted reference range : 5.0 - 20.0 mcg/mL. Th e reference range was not u sed to interpret this result as normal/abnormal . Vanco Tr Dose see note Level, date, a nd time of Time (test code = previous d ose is not 36500-8) availablefor th is sample. The date report ed is the samplecollectio n date. Vanco Tr Dose 05/09/2022 Level, date, a nd time of Date (test code = previous d ose is not 64353-5) availablefor is sample. The date report ed is the samplecollectio n date. [facility] CenterVancomycin [id number] 08:42:13 Test Item Value Reference Range Interpretation Comments Vanco Trough 9.0 See_Comment Toxic Trough Le angela: >20 (test code = mcg/mL [Automat ed message] 4092-3) The system [employer] generated this result tra nsmitted reference range : 5.0 - 20.0 mcg/mL. Th e reference range was not u sed to interpret this result as normal/abnormal . Vanco Tr Dose see note Level, date, a nd time of Time (test code = previous d ose is [place] 74813-0) availablefor is sample. The date report ed is the samplecollectio n date. Vanco Tr Dose 05/09/2022 Level, date, a nd time of Date (test code = previous d ose is [place] 45234-3) availablefor is sample. The date report ed is the samplecollectio n date. [facility] CenterVancomycin Pdwkcm0949-11-90 08:42:13 Test Item Value Reference Range Interpretation Comments Vanco Trough 9.0 See_Comment Toxic Trough Le angela: >20 (test code = mcg/mL [Automat ed message] 4092-3) The system [employer] generated this result tra nsmitted reference range : 5.0 - 20.0 mcg/mL. Th e reference range was not u sed to interpret this result as normal/abnormal . Vanco Tr Dose see note Level, date, a nd time of Time (test code = previous d ose is not 11027-3) availablefor is sample. The date report ed is the samplecollectio n date. Vanco Tr Dose 05/09/2022 Level, date, a nd time of Date (test code = previous d ose is not 73954-3) availablefor is sample. The date report ed is the samplecollectio n date. [facility] CenterVancomycin Kbfbsw0104-55-71 08:42:13 Test Item Value Reference Range Interpretation Comments Vanco Trough 9.0 See_Comment Toxic Trough Le angela: >20 (test code = mcg/mL [Automat ed message] 4092-3) The system [employer] generated this result tra nsmitted reference range : 5.0 - 20.0 mcg/mL. Th e reference range was not u sed to interpret this result as normal/abnormal . Vanco Tr Dose see note Level, date, a nd time of Time (test code = previous d ose [place] 14426-2) availablefor is sample. The date report ed is the samplecollectio n date. Vanco Tr Dose 05/09/2022 Level, date, a nd time of Date (test code = previous d ose is not 93587-2) availablefor is sample. The date report ed is the samplecollectio n date. [facility] CenterVancomycin Vnxura1103-24-23 08:42:13 Test Item Value Reference Range Interpretation Comments Vanco Trough 9.0 See_Comment Toxic Trough Le angela: >20 (test code = mcg/mL [Automat ed message] 4092-3) The system [employer] generated this result tra nsmitted reference range : 5.0 - 20.0 mcg/mL. Th e reference range was not u sed to interpret this result as normal/abnormal . Vanco Tr Dose see note Level, date, a nd time of Time (test code = previous d [place]se is [place] 79052-9) availablefor is sample. The date report ed is the samplecollectio n date. Vanco Tr Dose 05/09/2022 Level, date, a nd time of Date (test code = previous d ose is not 95739-4) availablefor is sample. The date report ed is the samplecollectio n date. [facility] CenterVancomycin Jrsxdj2322-12-47 08:42:13 Test Item Value Reference Range Interpretation Comments Vanco Trough 9.0 See_Comment Toxic Trough Le angela: >20 (test code = mcg/mL [Automat ed message] 4092-3) The system [employer] generated this result tra nsmitted reference range : 5.0 - 20.0 mcg/mL. Th e reference range was not u sed to interpret this result as normal/abnormal . Vanco Tr Dose see note Level, date, a nd time of Time (test code = [place]se [place] 24653-3) availablefor is sample. The date report ed is the samplecollectio n date. Vanco Tr Dose 05/09/2022 Level, date, a nd time of Date (test code = previous d ose is not 86964-8) availablefor is sample. The date report ed is the samplecollectio n date. [facility] CenterVancomycin Qazoof0840-31-00 08:42:13 Test Item Value Reference Range Interpretation Comments Vanco Trough 9.0 See_Comment Toxic Trough Le angela: >20 (test code = mcg/mL [Automat ed message] 4092-3) The system [employer] generated this result tra nsmitted reference range : 5.0 - 20.0 mcg/mL. Th e reference range was not u sed to interpret this result as normal/abnormal . Vanco Tr Dose see note Level, date, a nd time of Time (test code = previous d ose is not 52378-6) availablefor is sample. The date report ed is the samplecollectio n date. Vanco Tr Dose 05/09/2022 Level, date, a nd time of Date (test code = previous d ose is not 90905-5) availablefor is sample. The date report ed is the samplecollectio n date. [facility] CenterVancomycin Osnewj9935-19-16 08:42:13 Test Item Value Reference Range Interpretation Comments Vanco Trough 9.0 See_Comment Toxic Trough Le angela: >20 (test code = mcg/mL [Automat ed message] 4092-3) The system [employer] generated this result tra nsmitted reference range : 5.0 - 20.0 mcg/mL. Th e reference range was not u sed to interpret this result as normal/abnormal . Vanco Tr Dose see note Level, date, a nd time of Time (test code = previous d ose is not 62944-3) availablefor is sample. The date report ed is the samplecollectio n date. Vanco Tr Dose 05/09/2022 Level, date, a nd time of Date (test code = previous d ose is not 04191-5) availablefor is sample. The date report ed is the samplecollectio n date. [facility] CenterVancomycin Sbdjyb7420-15-92 08:42:13 Test Item Value Reference Range Interpretation Comments Vanco Trough 9.0 See_Comment Toxic Trough Le angela: >20 (test code = mcg/mL [Automat ed message] 4092-3) The system [employer] generated this result tra nsmitted reference range : 5.0 - 20.0 mcg/mL. Th e reference range was not u sed to interpret this result as normal/abnormal . Vanco Tr Dose see note Level, date, a nd time of Time (test code = previous d ose is not 07517-3) availablefor th is sample. The date report ed is the samplecollectio n date. Vanco Tr Dose 05/09/2022 Level, date, a nd time of Date (test code = previous d ose is not 94934-4) availablefor is sample. The date report ed is the samplecollectio n date. [facility] CenterUrine Rscetxt9154-04-42 21:00:58 Test Item Value Reference Range Interpretation Comments Final Report (test code <10,000 cfu/ml Normal A = 8488) site jon present.Generally of low significance.Correlate with clinical data and culture history. Path Review - Urine The results have been A (test code = 8483) reviewed and electronically signed by Pathologist:KAREL PABLO MD #[id number] Lab Interpretation Abnormal (test code = 90659-7) [facility] Mpauqap0925-67-87 21:00:58 Test Item Value Reference Range Interpretation Comments Final Report (test code <10,000 cfu/ml Normal A = 8488) site jon present.Generally of low significance.Correlate with clinical data and culture history. Path Review - Urine The results have been A (test code = 8483) reviewed and electronically signed by Pathologist:KAREL PABLO MD #[id number] Lab Interpretation Abnormal (test code = 04903-5) [facility] CenterUrine Nhjufgd4828-02-58 21:00:58 Test Item Value Reference Range Interpretation Comments Final Report (test code <10,000 cfu/ml Normal A = 8488) site jon present.Generally of low significance.Correlate with clinical data and culture history. Path Review - Urine The results have been A (test code = 8483) reviewed and electronically signed by Pathologist:KAREL PABLO MD #[id number] Lab Interpretation Abnormal (test code = 80922-8) [facility] CenterUrine Hjxnywd6274-95-49 21:00:58 Test Item Value Reference Range Interpretation Comments Final Report (test code <10,000 cfu/ml Normal A = 8488) site jon present.Generally of low significance.Correlate with clinical data and culture history. Path Review - Urine The results have been A (test code = 8483) reviewed and electronically signed by Pathologist:KAREL PABLO MD #[id number] Lab Interpretation Abnormal (test code = 54007-9) [facility] CenterUrinalysis Microscopic Exam 2022-05-06 11:51:26 Test Item Value Reference Range Interpretation Comments UA WBC (test code = 20 See_Comment H Some rep orting 87982-0) parameters with in the Urinalysis test have changed due to the implementation of new instrumentation in the [facility], al lowing greater sensiti vity of measurement. Urinalysis resu lts reported by the [facility] C enters using existing instrumentation , as well as Urinaly sis testing perform ed manually or by backup methodology at the [facility] crystal l remain relative ly unchanged. New reporting justino eters and units will not be reported for [facility]. [Auto mated message] The sy stem which generated this result transmit elbert reference range : 0 - 2 /HPF. The refer ence range was not u sed to interpret this result as normal/abnor mal. UA RBC (test code = NOT SEEN See_Comment [Automa elbert message] 86275-1) The system [employer] generated this result transmitted ref erence range: 0 - 2 /H PF. The reference range was not used to int erpret this result as normal/abnormal . UA Mucous (test code = NOT SEEN Not Seen-Trace 33312-5) /HPF UA Bacteria (test code NOT SEEN NOT SEEN /HPF = 17711-2) UA Squam Epi (test OCC None-Occasional code = 87632-6) /HPF Lab Interpretation Abnormal (test code = 99519-3) [facility] Center[facility]inalysis Microscopic Exam 2022-05-06 11:51:26 Test Item Value Reference Range Interpretation Comments UA WBC (test code = 20 See_Comment H Some rep orting 33206-1) parameters with in the Urinalysis test have changed due to the implementation of new instrumentation in the [facility], al lowing greater sensiti vity of measurement. Urinalysis resu lts reported by the [facility] C enters using existing instrumentation , as well as Urinaly sis testing perform ed manually or by backup methodology at the [facility] [place] crystal l remain relative ly unchanged. New reporting justino eters and units will not be reported for [facility]. [Auto mated message] The sy stem which generated this result transmit elbert reference range : 0 - 2 /HPF. The refer ence range was not u sed to interpret this result as normal/abnor mal. UA RBC (test code = NOT SEEN See_Comment [Automa elbert message] 78796-5) The system [employer] generated this result transmitted ref erence range: 0 - 2 /H PF. The reference range was not used to int erpret this result as normal/abnormal . UA Mucous (test code = NOT SEEN Not Seen-Trace 64397-5) /HPF UA Bacteria (test code NOT SEEN NOT SEEN /HPF = 17103-3) UA Squam Epi (test OCC None-Occasional code = 14803-2) /HPF Lab Interpretation Abnormal (test code = 95706-0) [facility] 2022-05-06 11:51:26 Test Item Value Reference Range Interpretation Comments UA WBC (test code = 20 See_Comment H Some rep orting 98940-6) parameters with in the Urinalysis test have changed due to the implementation of new instrumentation in the [facility] greater sensiti vity of measurement. Urinalysis resu lts reported by the [facility] using existing instrumentation , as well as Urinaly sis testing perform ed manually or by backup methodology at the [facility] l remain relative ly unchanged. New reporting justino eters and units will not be reported for [facility]. [Auto mated message] The sy stem which generated this result transmit elbert reference range : 0 - 2 /HPF. The refer ence range was not u sed to interpret this result as normal/abnor mal. UA RBC (test code = NOT SEEN See_Comment [Automa elbert message] 61630-6) The system [employer] generated this result transmitted ref erence range: 0 - 2 /H PF. The reference range was not used to int erpret this result as normal/abnormal . UA Mucous (test code = NOT SEEN Not Seen-Trace 16921-1) /HPF UA Bacteria (test code NOT SEEN NOT SEEN /HPF = 73490-3) UA Squam Epi (test OCC None-Occasional code = 45177-3) /HPF Lab Interpretation Abnormal (test code = 32750-4) [facility] Oxscsctjw6838-34-85 11:44:03 Test Item Value Reference Range Interpretation Comments UA Color (test code = 67741-6) Yellow Straw-Yellow UA Appear (test code = 06272-3) Hazy Clear A UA Glucose (test code [...] A Lab Interpretation (test code = Abnormal 33578-4) [facility] if Dolrdrqah1438-40-69 11:44:03 Test Item Value Reference Range Interpretation Comments UA Color (test code = 37153-8) Yellow Straw-Yellow UA Appear (test code = 83597-0) Hazy Clear A UA Glucose (test code [...] A Lab Interpretation (test code = Abnormal 95514-4) [facility]scopic if Vtbkiazuh0485-35-69 11:44:03 Test Item Value Reference Range Interpretation Comments UA Color (test code = 27520-6) Yellow Straw-Yellow UA Appear (test code = 71550-2) Hazy Clear A UA Glucose (test code [...] A Lab Interpretation (test code = Abnormal 00289-3) [facility], Nasopharyngeal Duep7148-76-12 10:09:40 Test Item Value Reference Range Interpretation Comments RMP Source (test code = Not Applicable 8653) Adenovirus (test code = Not Detected Not Detected 69856-2) Coronavirus 229E (test Not Detected Not Detected code = 83282-8) Coronavirus HKU1 (test Not Detected Not Detected code = 67583-6) Coronavirus NL63 (test Not Detected Not Detected code = 13731-0) Coronavirus OC43 (test Not Detected Not Detected code = 61385-2) COVID19 (SARS-CoV-2) Not Detected Not Detected (test code = 63312-9) Human Metapneumovirus Not Detected Not Detected (test code = 97208-7) Human Not Detected Not Detected Rhinovirus/Enterovirus (test code = 90003-8) Influenza A (test code Not Detected Not Detected = 20547-3) Influenza A H1 (test Not Detected Not Detected code = 49150-1) Influenza A H1 2009 Not Detected Not Detected (test code = 56564-8) Influenza A H3 (test Not Detected Not Detected code = 83023-3) Influenza B (test code Not Detected Not Detected = 02950-9) Parainfluenza 1 (test Not Detected Not Detected code = 07703-8) Parainfluenza 2 (test Not Detected Not Detected code = 34426-3) Parainfluenza 3 (test Not Detected Not Detected code = 21364-7) Parainfluenza 4 (test Not Detected Not Detected code = 61733-1) Respiratory Syncytial Not Detected Not Detected Virus (test code = 69785-0) Bordetella Not Detected Not Detected Parapertussis (test code = 89579-1) Bordetella pertussis Not Detected Not Detected (test code = 54888-6) Chlamydiophila Not Detected Not Detected pneumoniae (test code = 51563-8) Mycoplasma pneumoniae Not Detected Not Detected (test code = 00151-3) JOAQUIN (test code = JOAQUIN) Has patient had a positive for COVID-19 result in the last 3 months?->No The BioFire RP2.1 is a real-time, nested multiplexed polymerase chain reaction test designed to simultaneously identify nucleic acids from 22 different viruses and bacteria associated with respiratory tract infection, including SARS-CoV-2, from a single nasopharyngeal swab (EVAPORATOR REPAIRER) specimen obtained from individuals suspected of respiratory [...] that may not be detected by an EVAPORATOR REPAIRER specimen. Internal controls are used to monitor [...] and high-complexity tests. The Microbiology Laboratory at [facility], CLIA Accreditation #[id number] and CAP Accreditation #[id number], verified the performance characteristics of this assay. [facility] at [facility] performs the assay using the [employer] System. [facility], Nasopharyngeal Odko0014-12-89 10:09:40 Test Item Value Reference Range Interpretation Comments RMP Source (test code = Not Applicable 8653) Adenovirus (test code = Not Detected Not Detected 51859-2) Coronavirus 229E (test Not Detected Not Detected code = 58390-6) Coronavirus HKU1 (test Not Detected Not Detected code = 75268-2) Coronavirus NL63 (test Not Detected Not Detected code = 75059-0) Coronavirus OC43 (test Not Detected Not Detected code = 94866-1) COVID19 (SARS-CoV-2) Not Detected Not Detected (test code = 56085-9) Human Metapneumovirus Not Detected Not Detected (test code = 51051-4) Human Not Detected Not Detected Rhinovirus/Enterovirus (test code = 38061-5) Influenza A (test code Not Detected Not Detected = 80365-2) Influenza A H1 (test Not Detected Not Detected code = 44688-3) Influenza A H1 2009 Not Detected Not Detected (test code = 52792-8) Influenza A H3 (test Not Detected Not Detected code = 16607-9) Influenza B (test code Not Detected Not Detected = 75803-4) Parainfluenza 1 (test Not Detected Not Detected code = 52525-0) Parainfluenza 2 (test Not Detected Not Detected code = 78380-0) Parainfluenza 3 (test Not Detected Not Detected code = 69785-3) Parainfluenza 4 (test Not Detected Not Detected code = 21318-2) Respiratory Syncytial Not Detected Not Detected Virus (test code = 02054-1) Bordetella Not Detected Not Detected Parapertussis (test code = 76857-5) Bordetella pertussis Not Detected Not Detected (test code = 56717-0) Chlamydiophila Not Detected Not Detected pneumoniae (test code = 29773-7) Mycoplasma pneumoniae Not Detected Not Detected (test code = 27818-6) JOAQUIN (test code = JOAQUIN) Has patient had a positive for COVID-19 result in the last 3 months?->No The BioFire RP2.1 is a real-time, nested multiplexed polymerase chain reaction test designed to simultaneously identify nucleic acids from 22 different viruses and bacteria associated with respiratory tract infection, including SARS-CoV-2, from a single nasopharyngeal swab (EVAPORATOR REPAIRER) specimen obtained from individuals suspected of respiratory [...] that may not be detected by an EVAPORATOR REPAIRER specimen. Internal controls are used to monitor [...] and high-complexity tests. The [facility] at [facility], CLIA Accreditation #[id number] and CAP Accreditation #[id number], verified the performance characteristics of this assay. [facility] at [facility] performs the assay using the [employer] System. [facility], Nasopharyngeal Mqqs8288-31-13 10:09:40 Test Item Value Reference Range Interpretation Comments RMP Source (test code = Not Applicable 8653) Adenovirus (test code = Not Detected Not Detected 59174-8) Coronavirus 229E (test Not Detected Not Detected code = 36752-5) Coronavirus HKU1 (test Not Detected Not Detected code = 80302-4) Coronavirus NL63 (test Not Detected Not Detected code = 44781-7) Coronavirus OC43 (test Not Detected Not Detected code = 72744-1) COVID19 (SARS-CoV-2) Not Detected Not Detected (test code = 03332-2) Human Metapneumovirus Not Detected Not Detected (test code = 61324-4) Human Not Detected Not Detected Rhinovirus/Enterovirus (test code = 25337-3) Influenza A (test code Not Detected Not Detected = 11733-1) Influenza A H1 (test Not Detected Not Detected code = 00976-2) Influenza A H1 2009 Not Detected Not Detected (test code = 04525-2) Influenza A H3 (test Not Detected Not Detected code = 39500-3) Influenza B (test code Not Detected Not Detected = 12830-0) Parainfluenza 1 (test Not Detected Not Detected code = 05499-6) Parainfluenza 2 (test Not Detected Not Detected code = 79693-2) Parainfluenza 3 (test Not Detected Not Detected code = 72676-3) Parainfluenza 4 (test Not Detected Not Detected code = 86643-6) Respiratory Syncytial Not Detected Not Detected Virus (test code = 45503-5) Bordetella Not Detected Not Detected Parapertussis (test code = 67088-6) Bordetella pertussis Not Detected Not Detected (test code = 91348-7) Chlamydiophila Not Detected Not Detected pneumoniae (test code = 32524-0) Mycoplasma pneumoniae Not Detected Not Detected (test code = 50295-2) JOAQUIN (test code = JOAQUIN) Has patient had a positive for COVID-19 result in the last 3 months?->No The BioFire RP2.1 is a real-time, nested multiplexed polymerase chain reaction test designed to simultaneously identify nucleic acids from 22 different viruses and bacteria associated with respiratory tract infection, including SARS-CoV-2, from a single nasopharyngeal swab (EVAPORATOR REPAIRER) specimen obtained from individuals suspected of respiratory [...] that may not be detected by an EVAPORATOR REPAIRER specimen. Internal controls are used to monitor [...] and high-complexity tests. The [facility]biology Laboratory at [facility], CLIA Accreditation #[id number] and CAP Accreditation #[id number], verified the performance characteristics of this assay. [facility] at [facility] performs the assay using the [employer] System. [facility]CRP (C-reactive protein)2022-05-06 10:01:19 Test Item Value Reference Range Interpretation Comments CRP (test code = 204.87 mg/[place] [address]-0) CRP assay are a s follows: Reference range s when used to assess cardi ac risk: <1.00 mg/L Low cardiovascular risk 1.00-3.00 mg/L Average cardiovascular risk >3.00 mg/L High cardi ovascular risk.Reference ranges when used to assess inflammatory re sponses: Less than or eq ual to 10.00 mg/L. [facility]CRP (C-reactive protein)2022-05-06 10:01:19 Test Item Value Reference Range Interpretation Comments CRP (test code = 204.87 mg/[place] [address]-4) CRP assay are a s follows: Reference range s when used to assess cardi ac risk: <1.00 mg/L Low cardiovascular risk 1.00-3.00 mg/L Average cardiovascular risk >3.00 mg/L High cardi ovascular risk.Reference ranges when used to assess inflammatory re sponses: Less than or eq ual to 10.00 mg/L. [facility] ([facility]-reactive protein)2022-05-06 10:01:19 Test Item Value Reference Range Interpretation Comments CRP (test code = 204.87 mg/[place] [address]-8) CRP assay are a s follows: Reference range s when used to assess cardi ac risk: <1.00 mg/L Low cardiovascular risk 1.00-3.00 mg/L Average cardiovascular risk >3.00 mg/L High cardi ovascular risk.Reference ranges when used to assess inflammatory re sponses: Less than or eq ual to 10.00 mg/L. [facility] Center[facility] Btsojoo7907-44-34 09:49:48 Test Item Value Reference Range Interpretation Comments Total Protein (test code = 2885-2) 7.4 g/dL 6.4-8.3 [facility] Lmkzqwv0730-40-44 09:49:48 Test Item Value Reference Range Interpretation Comments Total Protein (test code = 2885-2) 7.4 g/dL 6.4-8.3 [facility] Bohskye1974-32-47 09:49:48 Test Item Value Reference Range Interpretation Comments Total Protein (test code = 2885-2) 7.4 g/dL 6.4-8.3 [facility] CenterElectrolyte Gkfgz6557-03-67 09:49:37 Test Item Value Reference Range Interpretation Comments Sodium Lvl (test code = 132 See_Comment L [Au tomated message] 2951-2) The system [employer] generated this result transmitted ref erence range: 136 - 14 5 mEq/L. The refe rence range was not u sed to interpret this result as normal/abnor mal. Potassium Lvl (test code 3.8 See_Comment [A utomated message] = 2823-3) The system [employer] generated this result transmitted ref erence range: 3.5 - 5. 1 mEq/L. The refe rence range was not u sed to interpret this result as normal/abnor mal. Chloride (test code = 96 See_Comment L [Auto mated message] 2074-0) The system [employer] generated this result transmitted ref erence range: 98 - 107 mEq/L. The refe rence range was not u sed to interpret this result as normal/abnor mal. CO2 (test code = 8-9) 24 See_Comment [A utomated message] The system [employer] generated this result transmitted ref erence range: 22 - 29 mEq/L. The reference r sam was not used to interpret this result as normal/abnor mal. Anion Gap (test code = 12 See_Comment [Aut omated message] 76368-9) The system [employer] generated this result transmitted ref erence range: 4 - 14 m Eq/L. The reference r sam was not used to interpret this result as normal/abnor mal. Lab Interpretation (test Abnormal code = 17119-2) [facility] CenterElectrolyte Mycbg8839-17-63 09:49:37 Test Item Value Reference Range Interpretation Comments Sodium Lvl (test code = 132 See_Comment L [Au tomated message] 2951-2) The system [employer] generated this result transmitted ref erence range: 136 - 14 5 mEq/L. The refe rence range was not u sed to interpret this result as normal/abnor mal. Potassium Lvl (test code 3.8 See_Comment [A utomated message] = 2823-3) The system [employer] generated this result transmitted ref erence range: 3.5 - 5. 1 mEq/L. The refe rence range was not u sed to interpret this result as normal/abnor mal. Chloride (test code = 96 See_Comment L [Auto mated message] ) The system [employer] generated this result transmitted ref erence range: 98 - 107 mEq/L. The refe rence range was not u sed to interpret this result as normal/abnor mal. CO2 (test code = 2027-12) 24 See_Comment [A utomated message] The system [employer] generated this result transmitted ref erence range: 22 - 29 mEq/L. The reference r sam was not used to interpret this result as normal/abnor mal. Anion Gap (test code = 12 See_Comment [Aut omated message] 59296-2) The system [employer] generated this result transmitted ref erence range: 4 - 14 m Eq/L. The reference r sam was not used to interpret this result as normal/abnor mal. Lab Interpretation (test Abnormal code = 33476-5) [facility] Tzgif7136-36-35 09:49:37 Test Item Value Reference Range Interpretation Comments Sodium Lvl (test code = 132 See_Comment L [Au tomated message] 2951-2) The system [employer] generated this result transmitted ref erence range: 136 - 14 5 mEq/L. The refe rence range was not u sed to interpret this result as normal/abnor mal. Potassium Lvl (test code 3.8 See_Comment [A utomated message] = 2823-3) The system [employer] generated this result transmitted ref erence range: 3.5 - 5. 1 mEq/L. The refe rence range was not u sed to interpret this result as normal/abnor mal. Chloride (test code = 96 See_Comment L [Auto mated message] ) The system [employer] generated this result transmitted ref erence range: 98 - 107 mEq/L. The refe rence range was not u sed to interpret this result as normal/abnor mal. CO2 (test code = 2027-12) 24 See_Comment [A utomated message] The system [employer] generated this result transmitted ref erence range: 22 - 29 mEq/L. The reference r sam was not used to interpret this result as normal/abnor mal. Anion Gap (test code = 12 See_Comment [Aut omated message] 95518-0) The system [employer] generated this result transmitted ref erence range: 4 - 14 m Eq/L. The reference r sam was not used to interpret this result as normal/abnor mal. Lab Interpretation (test Abnormal code = 69853-3) [facility] CenterGl[facility] Oxlwu5287-47-49 09:49:36 Test Item Value Reference Range Interpretation [...] diabetes Lab Interpretation (test Abnormal code = 04599-8) [facility] CenterGl[facility] Feyii2842-13-88 09:49:36 Test Item Value Reference Range Interpretation [...] diabetes Lab Interpretation (test Abnormal code = 12160-9) [facility] CenterGl[facility] Pnthk4229-32-21 09:49:36 Test Item Value Reference Range Interpretation [...] diabetes Lab Interpretation (test Abnormal code = 02427-6) [facility] CenterProcalcitonin2023-01-09 09:36:52 Test Item Value Reference Range Interpretation Comments Procalcitonin (test 0.79 ng/mL See_Comment H Procalci tonin > 2.00 code = 73373-6) ng/mL: Proca lcitonin levels above 2. 00 [...] extended diluti on as it exceeds the fitter helper's recommended carbajal it. Caution should be exercised when interpreting bui ch values and done in conjunction wit h clinical contex t. [Automated mess age] The system [employer] generated this result transmitted ref erence range: <=0.08. The reference range was not used to int erpret this result as normal/abnormal . Lab Interpretation Abnormal (test code = 18218-9) [facility] CenterProcalcitonin2023-01-09 09:36:52 Test Item Value Reference Range Interpretation Comments Procalcitonin (test 0.79 ng/mL See_Comment H Procalci tonin > 2.00 code = 15209-5) ng/mL: Proca lcitonin levels above 2. 00 [...] extended diluti on as it exceeds the fitter helper's recommended carbajal it. Caution should be exercised when interpreting bui ch values and done in conjunction wit [employer] t. [Automated mess age] The system [employer] generated this result transmitted ref erence range: <=0.08. The reference range was not used to int erpret this result as normal/abnormal . Lab Interpretation Abnormal (test code = 70841-8) [facility] CenterProcalcitonin2023-01-09 09:36:52 Test Item Value Reference Range Interpretation Comments Procalcitonin (test 0.79 ng/mL See_Comment H Procalci tonin > 2.00 code = 46664-7) ng/mL: Proca lcitonin levels above 2. 00 [...] extended diluti on as it exceeds the fitter helper's recommended carbajal it. Caution should be exercised when interpreting bui ch values and done in conjunction wit h clinical contex t. [Automated mess age] The system [employer] generated this result transmitted ref erence range: <=0.08. The reference range was not used to int erpret this result as normal/abnormal . Lab Interpretation Abnormal (test code = 39270-7) [facility] Vvjke8603-21-09 09:10:20 Test Item Value Reference Range Interpretation Comments CK (test code = 2157-6) 166 U/L 39-308 CK MB (test code = See_Comment [Automat ed message] 90181-7) The system [employer] generated this result transmitted ref erence range: <=10.4. The reference range was not used to int erpret this result as normal/abnormal . Troponin T (test code = 34 ng/L See_Comment H < 19 ng/L Suggest 43436-7) retest at 3 to 6 hours later [...] res ults. [Automated mess age] The system [employer] generated this result transmitted ref erence range: <=18. Th e reference range was not used to int erpret this result as normal/abnormal . Lab Interpretation Abnormal (test code = 83021-1) [facility] Nuvci2771-95-60 09:10:20 Test Item Value Reference Range Interpretation Comments CK (test code = 2157-6) 166 U/L 39-308 CK MB (test code = See_Comment [Automat ed message] 60905-9) The system [employer] generated this result transmitted ref erence range: <=10.4. The reference range was not used to int erpret this result as normal/abnormal . Troponin T (test code = 34 ng/L See_Comment H < 19 ng/L Suggest 38594-6) retest at 3 to 6 hours later [...] res ults. [Automated mess age] The system [employer] generated this result transmitted ref erence range: <=18. Th e reference range was not used to int erpret this result as normal/abnormal . Lab Interpretation Abnormal (test code = 59045-9) [facility] Emtjs1932-60-94 09:10:20 Test Item Value Reference Range Interpretation Comments CK (test code = 2157-6) 166 U/L 39-308 CK MB (test code = See_Comment [Automat ed message] 02641-5) The system [employer] generated this result transmitted ref erence range: <=10.4. The reference range was not used to int erpret this result as normal/abnormal . Troponin T (test code = 34 ng/L See_Comment H < 19 ng/L Suggest 94216-3) retest at 3 to 6 hours later to rule o ut myocardial inf arction >= 19 to <=52 n g/L Possible [...] res ults. [Automated mess age] The system [employer] generated this result transmitted ref erence range: <=18. Th e reference range was not used to int erpret this result as normal/abnormal . Lab Interpretation Abnormal (test code = 73941-1) [facility] Evocd7772-67-43 09:10:20 Test Item Value Reference Range Interpretation Comments CK (test code = 2157-6) 166 U/L 39-308 CK MB (test code = <=10.4 10422-7) Troponin T (test code = 34 ng/L <=18 H < 19 ng/L Suggest 56153-5) retest at 3 to 6 hours later [...] ults. Lab Interpretation Abnormal (test code = 54490-4) [facility] Iozws2641-32-02 09:10:20 Test Item Value Reference Range Interpretation Comments CK (test code = 2157-6) 166 U/L 39-308 CK MB (test code = <=10.4 62333-1) Troponin T (test code = 34 ng/L <=18 H < 19 ng/L Suggest 28445-2) retest at 3 to 6 hours later [...] ults. Lab Interpretation Abnormal (test code = 67007-1) [facility] Zdczf3830-08-72 09:10:20 Test Item Value Reference Range Interpretation Comments CK (test code = 2157-6) 166 U/L 39-308 CK MB (test code = <=10.4 79977-3) Troponin T (test code = 34 ng/L <=18 H < 19 ng/L Suggest 70287-0) retest at 3 to 6 hours later [...] ults. Lab Interpretation Abnormal (test code = 62018-8) [facility] Hnsus7960-46-18 09:10:20 Test Item Value Reference Range Interpretation Comments CK (test code = 2157-6) 166 U/L 39-308 CK MB (test code = <=10.4 00245-1) Troponin T (test code = 34 ng/L <=18 H < 19 ng/L Suggest 31493-4) retest at 3 to 6 hours later to rule o ut myocardial infa rction >= 19 to <=52 n g/L Possible myocar dial injury. Suggest retest at 3 hours. - a change of < 20 ng/L, r etest at 6 hours - a change of >= 20 ng/L, suggestive of myocardial inf arction > 52 ng/L Sugge stive of myocardial infarction Crit ical value will be r eported when cTnT is > 52 ng/L and only report ed for the first in a series. Hemolyzed speci mens with Hemolysis Index >100 (100 mg/dl or moderate hemoly sis) may cause interferences a nd falsely low res ults. Lab Interpretation Abnormal (test code = 99955-7) [facility] Asusy9905-98-91 09:10:20 Test Item Value Reference Range Interpretation Comments CK (test code = 2157-6) 166 U/L 39-308 CK MB (test code = <=10.4 43388-5) Troponin T (test code = 34 ng/L <=18 H < 19 ng/L Suggest 19904-8) retest at 3 to 6 hours later [...] ults. Lab Interpretation Abnormal (test code = 15206-6) [facility] Afpsh9440-77-63 09:10:20 Test Item Value Reference Range Interpretation Comments CK (test code = 2157-6) 166 U/L 39-308 CK MB (test code = <=10.4 81698-7) Troponin T (test code = 34 ng/L <=18 H < 19 ng/L Suggest 89542-9) retest at 3 to 6 hours later [...] ults. Lab Interpretation Abnormal (test code = 57809-8) [facility] Chem 8 without Hemoglobin and Mzqiiphyrh6325-26-83 09:07:37 Test Item Value Reference Range Interpretation Comments POC NA (test code = 133 See_Comment L [Automa elbert message] 3587-0) The system [employer] generated this result transmitted ref erence range: [...] chemic ally sensitive biose nsors on a [employer] ip that are config ured to perform [...] code = 100 See_Comment [Automa elbert message] 0101-3) The system [employer] generated this result transmitted ref erence range: 98 - 109 mEq/L. The refe rence range was not u sed to interpret this result as normal/abnor mal. POC VTCO2 (test code 29 See_Comment [Autom ated message] = 2026-04) The system [employer] generated this result transmitted ref erence range: 24 - 29 mEq/L. The reference r sam was not used to interpret this result as normal/abnor mal. POC Anion Gap (test 9 mmol/L 10-20 L code = 52223) POC BUN (test code = 22 mg/dL 12-21 6299-2) POC Crea (test code 1.5 mg/dL 0.6-1.3 H Medicati ons, = 99708-4) especially hydroxyurea or supplements, bui ch as ascorbate, can interfere with test [...] which contains microfabricated sensors, a calibration april [employer], fluidics system , and a waste chamber . Each test cartridge contains chemic ally sensitive biose nsors on a Nosopharm ip that are config ured to perform spec ific tests. The microfabricated sensors measure analyte concent ration by an electroch emical assay. POC EGFR (test code 50 See_Comment L The eGFR cr is = 59119) calculated with the 2020 CKD-EPI creatinine equa [...] CK D. [Automated mess age] The system [employer] generated this result transmitted ref erence range: [...] MDA Main Main Ca mpus code = 39604) [facility] Cli nical Lab, [address], [place] [address]; Earth Mover: Cyndy Ramirez MD Lab Interpretation Abnormal (test code = 97172-8) [facility] without Hemoglobin and [id number] 09:07:37 Test Item Value Reference Range Interpretation Comments POC NA (test code = 133 See_Comment L [Automa elbert message] 2947-0) The system [employer] generated this result transmitted ref erence range: [...] which contains microfabricated sensors, a calibration april [employer] [facility], fluidics system , and a waste chamber . Each test cartridge contains chemic ally sensitive biose nsors on a Nosopharm ip that are config ured to perform [...] See_Comment [Automa elbert message] 2068-06) The system [employer] h generated this result transmitted ref erence range: 98 - 109 mEq/L. The refe rence range was not u sed to interpret this result as normal/abnor mal. POC VTCO2 (test code 29 See_Comment [Autom ated message] = 2026-04) The system [employer] generated this result transmitted ref erence range: 24 - 29 mEq/L. The reference r sam was not used to interpret this result as normal/abnor mal. POC Anion Gap (test 9 mmol/L 10-20 L code = 56771) POC BUN (test code = 22 mg/dL 8- 6299-2) POC Crea (test code 1.5 mg/dL 0.6-1.3 H Medicati ons, = 39660-7) especially hydroxyurea or supplements, bui ch as ascorbate, can interfere with test results causing a falsely and significantly h igher result than exp ected. If a problem is suspected with a patient's resul t, [facility]. Method descript ion: The i-STAT is a n analyzer used f or in vitro quantific ation of various anal ytes in whole blood. The device uses a s richard disposable cart ridge which contains microfabricated sensors, a calibration [employer] fluidCubito system , and a waste chamber . Each test cartridge contains chemic ally sensitive biose nsors on a Nosopharm ip that are config ured to perform spec ific tests. The microfabricated sensors measure analyte concent ration by an electroch emical assay. POC EGFR (test code 50 See_Comment L The eGFR cr is = 06273) calculated with the 2020 CKD-EPI creatinine equa [...] CK D. [Automated mess age] The system [employer] generated this result transmitted ref erence range: [...] MDA Main Main Ca mpus code = 91173) [facility] Cli nical Lab, [address], [facility] [place] [address]; Earth M[employer]: Cyndy Ramirez MD Lab Interpretation Abnormal (test code = 57083-4) [facility] Chem 8 without Hemoglobin and [id number] 09:07:37 Test Item Value Reference Range Interpretation Comments POC NA (test code = 133 See_Comment L [Automa elbert message] 2947-0) The system [employer] generated this result transmitted ref erence range: [...] chemic ally sensitive biose nsors on a Nosopharm ip that are config ured to perform [...] See_Comment [Automa elbert message] 2068-06) The system [employer] generated this result transmitted ref erence range: 98 - 109 mEq/L. The refe rence range was not u sed to interpret this result as normal/abnor mal. POC VTCO2 (test code 29 See_Comment [Autom ated message] = 2026-04) The system [employer] generated this result transmitted ref erence range: 24 - 29 mEq/L. The reference r sam was not used to interpret this result as normal/abnor mal. POC Anion Gap (test 9 mmol/L 10-20 L code = 26455) POC BUN (test code = 22 mg/dL 8-26 6299-2) POC Crea (test code 1.5 mg/dL 0.6-1.3 H Medicati ons, = 36135-8) especially hydroxyurea or supplements, bui ch as ascorbate, can interfere with test results causing a falsely and significantly h igher result than exp ected. If a problem is suspected with a patient's resul t, a [facility]. Method descript [...] ally sensitive biose nsors on a silicon [employer] ip that are config ured to perform spec ific tests. The microfabricated sensors measure analyte concent ration by an electroch emical assay. POC EGFR (test code 50 See_Comment L The eGFR cr is = 07152) calculated with the 2020 CKD-EPI creatinine equa [...] MDA Main Main Ca mpus code = 47744) [facility] Cli nical Lab, [address] [facility] [address], [facility] [place] [address]; Earth M[employer]: Cyndy Ramirez MD Lab Interpretation Abnormal (test code = 80165-7) [facility] without Hemoglobin and [id number] 09:07:37 Test Item Value Reference Range Interpretation Comments POC NA (test code = 133 See_Comment L [Automa elbert message] 2946-0) The system [employer] generated this result transmitted ref erence range: [...] chemic ally sensitive biose nsors on a Nosopharm ip that are config ured to perform [...] See_Comment [Automa elbert message] 2068-06) The system [employer] generated this result transmitted ref erence range: 98 - 109 mEq/L. The refe rence range was not u sed to interpret this result as normal/abnor mal. POC VTCO2 (test code 29 See_Comment [Autom ated message] = 2026-04) The system [employer] generated this result transmitted ref erence range: 24 - 29 mEq/L. The reference r sam was not used to interpret this result as normal/abnor mal. POC Anion Gap (test 9 mmol/L 10-20 L code = 84491) POC BUN (test code = 22 mg/dL 12-21 6299-2) POC Crea (test code 1.5 mg/dL 0.6-1.3 H Medicati ons, = 03027-3) especially hydroxyurea or supplements, bui ch as ascorbate, can interfere with test [...] chemic ally sensitive biose nsors on a Nosopharm ip that are config ured to perform spec ific tests. The microfabricated sensors measure analyte concent ration by an electroch emical assay. POC EGFR (test code 50 See_Comment L The eGFR cr is = 36921) calculated with the 2020 CKD-EPI creatinine equa [...] CK D. [Automated mess age] The system [employer] generated this result transmitted ref erence range: [...] MDA Main Main Ca mpus code = 82484) [facility] Cli nical Lab, [address] [place] [address] [place] [address]; Earth M[employer]: Cyndy Ramirez MD Lab Interpretation Abnormal (test code = 78346-7) [facility] Chem 8 without Hemoglobin and [id number] 09:07:37 Test Item Value Reference Range Interpretation Comments POC NA (test code = 133 See_Comment L [Automa elbert message] 2947-0) The system [employer] generated this result transmitted ref erence range: [...] which contains microfabricated sensors, a calibration april [employer], fluidics system , and a waste chamber . Each test cartridge contains chemic ally sensitive biose nsors on a Nosopharm ip that are config ured to perform [...] See_Comment [Automa elbert message] 2068-06) The system [employer] h generated this result transmitted ref erence range: 98 - 109 mEq/L. The refe rence range was not u sed to interpret this result as normal/abnor mal. POC VTCO2 (test code 29 See_Comment [Autom ated message] = 2026-04) The system whic h generated this result transmitted ref erence range: 24 - 29 mEq/L. The reference r sam was not used to interpret this result as normal/abnor mal. POC Anion Gap (test 9 mmol/L 10-20 L code = 35802) POC BUN (test code = 22 mg/dL 8- 6299-2) POC Crea (test code 1.5 mg/dL 0.6-1.3 H Medicati ons, = 99099-0) especially hydroxyurea or supplements, bui ch as ascorbate, can interfere with test [...] which contains microfabricated sensors, a calibration april [employer], fluidics system , and a waste chamber . Each test cartridge contains chemic ally sensitive biose nsors on a Nosopharm ip that are config ured to perform spec ific tests. The microfabricated sensors measure analyte concent ration by an electroch emical assay. POC EGFR (test code 50 See_Comment L The eGFR cr is = 01642) calculated with the 2020 CKD-EPI creatinine equa [...] CK D. [Automated mess age] The system [employer] generated this result transmitted ref erence range: [...] MDA Main Main Ca mpus code = 80453) [facility] Cli nical Lab, [address], [facility] [place] [address]; Earth M[employer]: Cyndy Ramirez MD Lab Interpretation Abnormal (test code = 67593-8) [facility] Chem 8 without Hemoglobin and [id number] 09:07:37 Test Item Value Reference Range Interpretation Comments POC NA (test code = 133 See_Comment L [Automa elbert message] 2947-0) The system [employer] generated this result transmitted ref erence range: [...] chemic ally sensitive biose nsors on a Nosopharm ip that are config ured to perform [...] See_Comment [Automa elbert message] 2068-06) The system [employer] generated this result transmitted ref erence range: 98 - 109 mEq/L. The refe rence range was not u sed to interpret this result as normal/abnor mal. POC VTCO2 (test code 29 See_Comment [Autom ated message] = 2026-04) The system [employer] generated this result transmitted ref erence range: 24 - 29 mEq/L. The reference r sam was not used to interpret this result as normal/abnor mal. POC Anion Gap (test 9 mmol/L 10-20 L code = 29760) POC BUN (test code = 22 mg/dL 8-99-2) POC Crea (test code 1.5 mg/dL 0.6-1.3 H Medicati ons, = 50924-2) especially hydroxyurea or supplements, bui ch as ascorbate, can interfere with test [...] which contains microfabricated sensors, a calibration april [employer], fluidics system , and a waste chamber . Each test cartridge contains chemic ally sensitive biose nsors on a Nosopharm ip that are config ured to perform spec ific tests. The microfabricated sensors measure analyte concent ration by an electroch emical assay. POC EGFR (test code 50 See_Comment L The eGFR cr is = 65370) calculated with the 2020 CKD-EPI creatinine equa [...] health. CKD mariela uld be classified by kwaku veloz, GFR category, a nd albuminuria cat [...] CK D. [Automated mess age] The system [employer] h generated this result transmitted ref erence [...] MDA Main Main Ca mpus code = 95179) [facility] Cli nical Lab, [address], [place] [address]; Earth M[employer]: Cyndy Ramirez MD Lab Interpretation Abnormal (test code = 26313-7) [facility] 8 without Hemoglobin and [id number] 09:07:37 Test Item Value Reference Range Interpretation Comments POC NA (test code = 133 See_Comment L [Automa elbert message] 2946-0) The system [employer] generated this result transmitted ref erence range: 138 - 14 6 mEq/L. The refe rence range was not u sed to interpret this result as normal/abnor mal. POC K (test code = 3.6 See_Comment Method de scription: 6298-4) The i-STAT is a n analyzer used f or in vitro quantific ation of various anal ytes in whole blood. The device uses a s [employer] disposable cart ridge which contains microfabricated sensors, a calibration april ution, fluidics system , and a waste chamber . Each test cartridge contains chemic ally sensitive biose nsors on a Nosopharm ip that are config ured to perform [...] See_Comment [Automa elbert message] 2068-06) The system [employer] generated this result transmitted ref erence range: 98 - 109 mEq/L. The refe rence range was not u sed to interpret this result as normal/abnor mal. POC VTCO2 (test code 29 See_Comment [Autom ated message] = 2026-04) The system [employer] generated this result transmitted ref erence range: 24 - 29 mEq/L. The reference r sam was not used to interpret this result as normal/abnor mal. POC Anion Gap (test 9 mmol/L 10-20 L code = 04068) POC BUN (test code = 22 mg/dL 12-21 6299-2) POC Crea (test code 1.5 mg/dL 0.6-1.3 H Medicati ons, = 80608-5) especially hydroxyurea or supplements, bui ch as ascorbate, can interfere with test [...] chemic ally sensitive biose nsors on a Nosopharm ip that are config ured to perform spec ific tests. The microfabricated sensors measure analyte concent ration by an electroch emical assay. POC EGFR (test code 50 See_Comment L The eGFR cr is = 29917) calculated with the 2020 CKD-EPI creatinine equa [...] CK D. [Automated mess age] The system [employer] generated this result transmitted ref erence range: [...] [facility]. POC Ion Ca (test 1.17 mmol/L 1.12-1.32 code = 1993-) POC Sample Type Venous (test code = 6690) POC Clean Dev (test Yes code = 6672) Performing Lab (test MDA Main Main Ca mpus code = 14195) [facility] Cli nical Lab, [facility], [facility] [place] [address]; Earth Mover: Cyndy Ramirez MD Lab Interpretation Abnormal (test code = 99034-2) [facility] Chem 8 without Hemoglobin and [id number] 09:07:37 Test Item Value Reference Range Interpretation Comments POC NA (test code = 133 See_Comment L [Automa elbert message] 2947-0) The system whic h generated this result [...] which contains microfabricated sensors, a calibration april [employer], fluidics system , and a waste chamber . Each test cartridge contains chemic ally sensitive biose nsors on a Nosopharm ip that are config ured to perform [...] See_Comment [Automa elbert message] 2068-06) The system [employer] generated this result transmitted ref erence range: 98 - 109 mEq/L. The refe rence range was not u sed to interpret this result as normal/abnor mal. POC VTCO2 (test code 29 See_Comment [Autom ated message] = 2026-04) The system [employer] generated this result transmitted ref erence range: 24 - 29 mEq/L. The reference r sam was not used to interpret this result as normal/abnor mal. POC Anion Gap (test 9 mmol/L 10-20 L code = 15156) POC BUN (test code = 22 mg/dL 8- 6299-2) POC Crea (test code 1.5 mg/dL 0.6-1.3 H Medicati ons, = 97371-0) especially hydroxyurea or supplements, bui ch as ascorbate, can interfere with test [...] chemic ally sensitive biose nsors on a Nosopharm ip that are config ured to perform spec ific tests. The microfabricated sensors measure analyte concent ration by an electroch emical assay. POC EGFR (test code 50 See_Comment L The eGFR cr is = 16284) calculated with the 2020 CKD-EPI creatinine equa [...] CK D. [Automated mess age] The system [employer] generated this result transmitted ref erence range: >=60 mL/min/1.73 sq. m. The reference r asm was not used to interpret this result [...] MDA Main Main Ca mpus code = 56435) [facility] Cli nical Lab, [address] [place] [address] [place] [address]; Earth Mover: Cyndy Ramirez MD Lab Interpretation Abnormal (test code = 46002-5) [facility] without Hemoglobin and [id number] 09:07:37 Test Item Value Reference Range Interpretation Comments POC NA (test code = 133 See_Comment L [Automa elbert message] 2947-0) The system [employer] generated this result transmitted ref erence range: [...] which contains microfabricated sensors, a calibration april [employer], fluidics system , and a waste chamber . Each test cartridge contains chemic ally sensitive biose nsors on a Nosopharm ip that are config ured to perform [...] See_Comment [Automa elbert message] 2068-06) The system [employer] generated this result transmitted ref erence range: 98 - 109 mEq/L. The refe rence range was not u sed to interpret this result as normal/abnor mal. POC VTCO2 (test code 29 See_Comment [Autom ated message] = 2026-04) The system [employer] generated this result transmitted ref erence range: 24 - 29 mEq/L. The reference r sam was not used to interpret this result as normal/abnor mal. POC Anion Gap (test 9 mmol/L 10-20 L code = 13775) POC BUN (test code = 22 mg/dL 8- 6299-2) POC Crea (test code 1.5 mg/dL 0.6-1.3 H Medicati ons, = 43190-6) especially hydroxyurea or supplements, bui ch as ascorbate, can interfere with test [...] chemic ally sensitive biose nsors on a Nosopharm ip that are config ured to perform spec ific tests. The microfabricated sensors measure analyte concent ration by an electroch emical assay. POC EGFR (test code 50 See_Comment L The eGFR cr is = 45858) calculated with the 2020 CKD-EPI creatinine equa [...] CK D. [Automated mess age] The system [employer] generated this result transmitted ref erence range: [...] MDA Main Main Ca mpus code = 47192) [facility] Cli nical Lab, [facility] [place] [address]; Earth Mover: Cyndy Ramirez MD Lab Interpretation Abnormal (test code = 69841-6) [facility] Test Item Value Reference Range Interpretation Comments aPTT (test code = 34.3 See_Comment H [Automate d message] 53977-0) The system [employer] generated this result transmitted ref erence range: 22.8 - 3 4.2 second(s). The reference range was not used to int erpret this result as normal/abnormal . Lab Interpretation (test Abnormal code = 30293-5) [facility] Test Item Value Reference Range Interpretation Comments aPTT (test code = 34.3 See_Comment H [Automate d message] 75830-2) The system [employer] generated this result transmitted ref erence range: 22.8 - 3 4.2 second(s). The reference range was not used to int erpret this result as normal/abnormal . Lab Interpretation (test Abnormal code = 09329-9) [facility]:07[facility] Test Item Value Reference Range Interpretation Comments aPTT (test code = 34.3 See_Comment H [Automate d message] 97267-3) The system [employer] generated this result transmitted ref erence range: 22.8 - 3 4.2 second(s). The reference range was not used to int erpret this result as normal/abnormal . Lab Interpretation (test Abnormal code = 00082-8) [facility] with [id number] 09:07:34 Test Item Value Reference Range Interpretation Comments PT (test code = 5902-2) 15.2 See_Comment H [Au tomated message] The system [employer] generated this result transmitted ref erence range: 11.9 - 1 4.1 second(s). The reference range was not used to int erpret this result as normal/abnormal . INR (test code = 6301-6) 1.20 0.89-1.10 H Lab Interpretation (test Abnormal code = 13582-3) [facility] with [id number] 09:07:34 Test Item Value Reference Range Interpretation Comments PT (test code = 5902-2) 15.2 See_Comment H [Au tomated message] The system [employer] generated this result transmitted ref erence range: 11.9 - 1 4.1 second(s). The reference range was not used to int erpret this result as normal/abnormal . INR (test code = 6301-6) 1.20 0.89-1.10 H Lab Interpretation (test Abnormal code = 70800-0) [facility] with [id number] 09:07:34 Test Item Value Reference Range Interpretation Comments PT (test code = 5902-2) 15.2 See_Comment H [Au tomated message] The system [employer] generated this result transmitted ref erence range: 11.9 - 1 4.1 second(s). The reference range was not used to int erpret this result as normal/abnormal . INR (test code = 6301-6) 1.20 0.89-1.10 H Lab Interpretation (test Abnormal code = 20715-8) [facility] 09:07:32 Test Item Value Reference Range Interpretation Comments Fibrinogen (test code = 3255-7) 559 mg/dL 214-503 H Lab Interpretation (test code = Abnormal 39892-2) [facility] 09:07:32 Test Item Value Reference Range Interpretation Comments Fibrinogen (test code = 3255-7) 559 mg/dL 214-503 H Lab Interpretation (test code = Abnormal 06641-3) [facility] 09:07:32 Test Item Value Reference Range Interpretation Comments Fibrinogen (test code = 3255-7) 559 mg/dL 214-503 H Lab Interpretation (test code = Abnormal 10274-5) [facility] [id number] 09:07:31 Test Item Value Reference Range Interpretation Comments D-Dimer (test code = 1.67 See_Comment H [place] [address]-3) exclusion of ve nous thromboembolism is <0.51 mcg/mL FEUs (fi brinogen equivalent unit s). [Automated mess age] The system which ge nerated this result tra nsmitted reference range : 0.10 - 0.50 mcg/ml FEU . The reference range was not used to interpr et this result as normal/abnormal . Lab Interpretation Abnormal (test code = 40374-3) [facility] [id number] 09:07:31 Test Item Value Reference Range Interpretation Comments D-Dimer (test code = 1.67 See_Comment H [place] [address]-0) exclusion of ve nous thromboembolism is <0.51 mcg/mL FEUs (fi brinogen equivalent unit s). [Automated mess age] The system which ge nerated this result tra nsmitted reference range : 0.10 - 0.50 mcg/ml FEU . The reference range was not used to interpr et this result as normal/abnormal . Lab Interpretation Abnormal (test code = 02348-4) [facility] [id number] 09:07:31 Test Item Value Reference Range Interpretation Comments D-Dimer (test code = 1.67 See_Comment H [place] [address]-7) exclusion of ve nous thromboembolism is <0.51 mcg/mL FEUs (fi brinogen equivalent unit s). [Automated mess age] The system which ge nerated this result tra nsmitted reference range : 0.10 - 0.50 mcg/ml FEU . The reference range was not used to interpr et this result as normal/abnormal . Lab Interpretation Abnormal (test code = 35948-8) [facility] VBG+[id number] 08:32:57 Test Item Value Reference Range Interpretation Comments POC VB pH (test 7.36 7.31-7.41 code = 2746-6) POC VB pCO2 (test 46 See_Comment [Automate d message] code = 2020-07) The system [employer] generated this result transmitted ref erence range: 41 - 51 mmHg. The reference r sam was not used to interpret this result as normal/abnor mal. POC VB pO2 (test 28 mmHg code = 5-2) POC VB TCO2 (test 27 See_Comment [Automate d message] code = 2026-04) The system [employer] generated this result transmitted ref erence range: 24 - 29 mEq/L. The reference r sam was not used to interpret this result as normal/abnor mal. POC VB Bicarb 26 mmol/L 23-28 (test code = 16858-8) POC VB Base Ex 0 mmol/L -2-3 [...] Yes (test code = 6672) Performing Lab [facility] (test code = [facility] And shira [address]) Clinical Lab, [address] [place] [address], [place], [place] [address]; Earth Mover: Cyndy Ramirez MD [facility] MD [facility] VBG+[id number] 08:32:57 Test Item Value Reference Range Interpretation Comments POC VB pH (test 7.36 7.31-7.41 code = 2746-6) POC VB pCO2 (test 46 See_Comment [Automate d message] code = 2020-07) The system [employer] generated this result transmitted ref erence range: 41 - 51 mmHg. The reference r sam was not used to interpret this result as normal/abnor mal. POC VB pO2 (test 28 mmHg code = 2705-2) POC VB TCO2 (test 27 See_Comment [Automate d message] code = 2026-04) The system [employer] generated this result transmitted ref erence range: 24 - 29 mEq/L. The reference r sam was not used to interpret this result as normal/abnor mal. POC VB Bicarb 26 mmol/L 23-28 (test code = 54554-7) POC VB Base Ex 0 mmol/L -2-3 (test code = 1926-3) POC VB O2 Sat 49 % (test [...] Yes (test code = 6672) Performing Lab [facility] (test code = [facility] [address]) Clinical Lab, [address] [place] [address] 770 30; Earth Mover: Cyndy Ramirez MD [facility] MD [facility] [id number] 08:32:57 Test Item Value Reference Range Interpretation Comments POC VB pH (test 7.36 7.31-7.41 code = 2746-6) POC VB pCO2 (test 46 See_Comment [Automate d message] code = 2020-07) The system [employer] generated this result transmitted ref erence range: 41 - 51 mmHg. The reference r sam was not used to interpret this result as normal/abnor mal. POC VB pO2 (test 28 mmHg code = 2705-2) POC VB TCO2 (test 27 See_Comment [Automate d message] code = 2026-04) The system [employer] generated this result transmitted ref erence range: 24 - 29 mEq/L. The reference r sam was not used to interpret this result as normal/abnor mal. POC VB Bicarb 26 mmol/L 23-28 (test code = 64394-3) POC VB Base Ex 0 mmol/L -2-3 [...] Yes (test code = 6672) Performing Lab [facility] (test code = [facility] [address]) Clinical Lab, [address] [place] [address] 30; Earth Mover: Cyndy Ramirez MD [facility] Glucose [id number] 08:28:17 Test Item Value Reference Interpretation Comments [...] Capillary code = 9554) Performing [facility] = 92029) [facility] MD Lin adamson Clinical Lab, [address] [place] [address] 30; Earth Mover: Cyndy Ramirez MD Lab Interpretation Abnormal (test code = 43415-7) [facility] Glucose [id number] 08:28:17 Test Item Value Reference Interpretation Comments [...] Capillary code = 9554) Performing Lab (test [facility] code = 00694) [facility] MD Lin adamson Clinical Lab, [address] [place] [address] 30; Earth Mover: Cyndy Ramirez MD Lab Interpretation Abnormal (test code = 58494-1) [facility] Glucose [id number] 08:28:17 Test Item Value Reference Interpretation Comments [...] Capillary code = 9554) Performing Lab (test [facility] code = 90167) [facility] MD Lin adamson Clinical Lab, [address] [place] [address] 30; Earth Mover: Cyndy Ramirez MD Lab Interpretation Abnormal (test code = 91621-7) [facility] Glucose [id number] 08:28:17 Test Item Value Reference Interpretation Comments [...] Capillary code = 9554) Performing Lab (test [facility] code = 53515) [facility] Clinical Lab, [address] [place] [address] 30; Earth Mover: Cyndy Ramirez MD Lab Interpretation Abnormal (test code = 84383-7) [facility] Glucose [id number] 08:28:17 Test Item Value Reference Interpretation Comments [...] Capillary code = 9554) Performing Lab (test [facility] code = 52078) [facility] Lin adamson Clinical Lab, [address] [place] [address] 30; Earth Mover: Cyndy Ramirez MD Lab Interpretation Abnormal (test code = 66124-0) [facility] Glucose [id number] 08:28:17 Test Item Value Reference Interpretation Comments [...] Capillary code = 9554) Performing Lab (test [facility] code = 60673) [facility] Lin adamson Clinical Lab, [address] [place] [address]; Earth Mover: Cyndy Ramirez MD Lab Interpretation Abnormal (test code = 80312-8) [facility] Glucose [id number] 08:28:17 Test Item Value Reference Interpretation Comments Range POC Glucose (test 106 mg/dL 70-99 H MD Jesus Alberto RaymundoN code = 5651) NotifiedCapilla ry blood samples, [...] Capillary code = 9554) Performing Lab (test [facility] code = 60710) [facility] Lin adamson Clinical Lab, [address] [place] [address] 30; Earth Mover: Cyndy Ramirez MD Lab Interpretation Abnormal (test code = 08479-0) [facility] Glucose [id number] 08:28:17 Test Item Value Reference Interpretation Comments [...] Capillary code = 9554) Performing Lab (test [facility] code = 17883) [facility] Lin adamson Clinical Lab, [address] [place] [address] 30; Earth Mover: Cyndy Ramirez MD Lab Interpretation Abnormal (test code = 37067-2) [facility] Glucose [id number] 08:28:17 Test Item Value Reference Interpretation Comments [...] Capillary code = 9554) Performing Lab (test [facility] code = 36163) [facility] Lin adamson Clinical Lab, [address] [place] [address] 30; Earth Mover: Cyndy Ramirez MD Lab Interpretation Abnormal (test code = 68021-6) [facility] Test Item Value Reference Range Interpretation Comments Lipase Lvl (test code = 3040-3) 16 U/L 13-60 [facility] 09:05:06 Test Item Value Reference Range Interpretation Comments Lipase Lvl (test code = 3040-3) 16 U/L 13-60 [facility] 09:05:06 Test Item Value Reference Range Interpretation Comments Lipase Lvl (test code = 3040-3) 16 U/L 13-60 [facility] 09:05:06 Test Item Value Reference Range Interpretation Comments Lipase Lvl (test code = 3040-3) 16 U/L [facility] 09:05:06 Test Item Value Reference Range Interpretation Comments Lipase Lvl (test code = 3040-3) 16 U/L [facility] 09:05:06 Test Item Value Reference Range Interpretation Comments Lipase Lvl (test code = 3040-3) 16 U/L [facility] 09:05:06 Test Item Value Reference Range Interpretation Comments Lipase Lvl (test code = 3040-3) 16 U/L [facility] 09:05:06 Test Item Value Reference Range Interpretation Comments Lipase Lvl (test code = 3040-3) 16 U/L [facility] 09:05:06 Test Item Value Reference Range Interpretation Comments Lipase Lvl (test code = 3040-3) 16 U/L [facility] 09:05:05 Test Item Value Reference Range Interpretation Comments Amylase Lvl (test code = 1798-8) 43 U/L [facility] 09:05:05 Test Item Value Reference Range Interpretation Comments Amylase Lvl (test code = 1798-8) 43 U/L [facility] 09:05:05 Test Item Value Reference Range Interpretation Comments Amylase Lvl (test code = 1798-8) 43 U/L [facility] 09:05:05 Test Item Value Reference Range Interpretation Comments Amylase Lvl (test code = 1798-8) 43 U/L [facility] 09:05:05 Test Item Value Reference Range Interpretation Comments Amylase Lvl (test code = 1798-8) 43 U/L 28-100 [facility] 09:05:05 Test Item Value Reference Range Interpretation Comments Amylase Lvl (test code = 1798-8) 43 U/L 28-100 [facility] 09:05:05 Test Item Value Reference Range Interpretation Comments Amylase Lvl (test code = 1798-8) 43 U/L 28-100 [facility] 09:05:05 Test Item Value Reference Range Interpretation Comments Amylase Lvl (test code = 1798-8) 43 U/L 28-100 [facility] 09:05:05 Test Item Value Reference Range Interpretation Comments Amylase Lvl (test code = 1798-8) 43 U/L 28-100 [facility] w/[id number] 05:07:58 Test Item Value Reference Range Interpretation Comments Final Report (test No acid fast bacteria code = 8488) isolated at 8 weeks. Path Review - AFB Culture yield may be (test code = 8477) affected by sample quality, prior treatment, and transportation conditions....The results have been reviewed and electronically signed by Pathologist:Matt Antonio MD, PhD #[id number] Acid Fast Stain No Acid Fast Bacilli seen Truant (test code = in direct smear 92418-0) JOAQUIN (test code = Abdominal Abscess JOAQUIN) DrainCultures are held 8 weeks before finalization. [facility] w/[id number] 05:07:58 Test Item Value Reference Range Interpretation Comments Final Report (test No acid fast bacteria code = 8488) isolated at 8 weeks. Path Review - AFB Culture yield may be (test code = 8477) affected by sample quality, prior treatment, and transportation conditions....The results have been reviewed and electronically signed by Pathologist:Matt Antonio MD, PhD #[id number] Acid Fast Stain No Acid Fast Bacilli seen Truant (test code = in direct smear 82628-7) JOAQUIN (test code = Abdominal Abscess JOAQUIN) DrainCultures are held 8 weeks before finalization. [facility] w/[id number] 05:07:58 Test Item Value Reference Range Interpretation Comments Final Report (test No acid fast bacteria code = 8488) isolated at 8 weeks. Path Review - AFB Culture yield may be (test code = 8477) affected by sample quality, prior treatment, and transportation conditions....The results have been reviewed and electronically signed by Pathologist:Matt Antonio MD, PhD #[id number] Acid Fast Stain No Acid Fast Bacilli seen Truant (test code = in direct smear 40132-3) JOAQUIN (test code = Abdominal Abscess JOAQUIN) DrainCultures are held 8 weeks before finalization. [facility] w/[id number] 05:07:58 Test Item Value Reference Range Interpretation Comments Final Report (test No acid fast bacteria code = 8488) isolated at 8 weeks. Path Review - AFB Culture yield may be (test code = 8477) affected by sample quality, prior treatment, and transportation conditions....The results have been reviewed and electronically signed by Pathologist:Matt Antonio MD, PhD #[id number] Acid Fast Stain No Acid Fast Bacilli seen Truant (test code = in direct smear 69401-8) JOAQUIN (test code = Abdominal Abscess JOAQUIN) DrainCultures are held 8 weeks before finalization. [facility] w/[id number] 05:07:58 Test Item Value Reference Range Interpretation Comments Final Report (test No acid fast bacteria code = 8488) isolated at 8 weeks. Path Review - AFB Culture yield may be (test code = 8477) affected by sample quality, prior treatment, and transportation conditions....The results have been reviewed and electronically signed by Pathologist:Matt Antonio MD, PhD #[id number] Acid Fast Stain No Acid Fast Bacilli seen Truant (test code = in direct smear 73508-9) JOAQUIN (test code = Abdominal Abscess JOAQUIN) DrainCultures are held 8 weeks before finalization. [facility] w/[id number] 05:07:58 Test Item Value Reference Range Interpretation Comments Final Report (test No acid fast bacteria code = 8488) isolated at 8 weeks. Path Review - AFB Culture yield may be (test code = 8477) affected by sample quality, prior treatment, and transportation conditions....The results have been reviewed and electronically signed by Pathologist:Matt Antonio MD, PhD #[id number] Acid Fast Stain No Acid Fast Bacilli seen Truant (test code = in direct smear 03144-0) JOAQUIN (test code = Abdominal Abscess JOAQUIN) DrainCultures are held 8 weeks before finalization. [facility] w/[id number] 05:07:58 Test Item Value Reference Range Interpretation Comments Final Report (test No acid fast bacteria code = 8488) isolated at 8 weeks. Path Review - AFB Culture yield may be (test code = 8477) affected by sample quality, prior treatment, and transportation conditions....The results have been reviewed and electronically signed by Pathologist:Matt Antonio MD, PhD #[id number] Acid Fast Stain No Acid Fast Bacilli seen Truant (test code = in direct smear 98528-8) JOAQUIN (test code = Abdominal Abscess JOAQUIN) DrainCultures are held 8 weeks before finalization. [facility] w/[id number] 05:07:58 Test Item Value Reference Range Interpretation Comments Final Report (test No acid fast bacteria code = 8488) isolated at 8 weeks. Path Review - AFB Culture yield may be (test code = 8477) affected by sample quality, prior treatment, and transportation conditions....The results have been reviewed and electronically signed by Pathologist:Matt Antonio MD, PhD #[id number] Acid Fast Stain No Acid Fast Bacilli seen Truant (test code = in direct smear 06681-4) JOAQUIN (test code = Abdominal Abscess JOAQUIN) DrainCultures are held 8 weeks before finalization. [facility] w/[id number] 05:07:58 Test Item Value Reference Range Interpretation Comments Final Report (test No acid fast bacteria code = 8488) isolated at 8 weeks. Path Review - AFB Culture yield may be (test code = 8477) affected by sample quality, prior treatment, and transportation conditions....The results have been reviewed and electronically signed by Pathologist:Matt Antonio MD, PhD #[id number] Acid Fast Stain No Acid Fast Bacilli seen Truant (test code = in direct smear 20246-3) JOAQUIN (test code = Abdominal Abscess JOAQUIN) DrainCultures are held 8 weeks before finalization. [facility] DNA [id number] 22:59:28 Test Item Value Reference Range Interpretation Comments HBV DNA Qnt-Sanchez Undetected Undetected IU/mL Result in log IU/mL is (test code = Undetected. 32628-6) ----ADDITIO NAL INFORMATION---- ----The quantif ication range of this a ssay is 10 to1,000,000,000 IU/mL (1.00 log to 9. 00 log IU/mL). Testing was performed using the lucas HBV test ([employer] with the lucas 6800 System. Test Pe rformed by:[place] [id number] Director: Jose L Nieto M.D. Ph. D.; CLIA# [id number] [facility] [id number] 22:59:28 Test Item Value Reference Range Interpretation Comments HBV DNA Qnt-Basom Undetected Undetected IU/mL Result in log IU/mL is (test code = Undetected. 89218-4) ----ADDITIO NAL INFORMATION---- ----The quantif ication range of this a ssay is 10 to1,000,000,000 IU/mL (1.00 log to 9. 00 log IU/mL). Testing was performed using the lucas HBV test ([employer] with the lucas 6800 System. Test Pe rformed by:[place] [id number] Director: Jose L Nieto M.D. Ph. D.; CLIA# [id number] [facility] [id number] 22:59:28 Test Item Value Reference Range Interpretation Comments HBV DNA Qnt-Sanchez Undetected Undetected IU/mL Result in log IU/mL is (test code = Undetected. 08232-9) ----ADDITIO NAL INFORMATION---- ----The quantif ication range of this a ssay is 10 to1,000,000,000 IU/mL (1.00 log to 9. 00 log IU/mL). Testing was performed using the lucas HBV test ([employer] with the lucas 6800 System. Test Pe rformed by:[place] [id number] Director: Jose L Nieto M.D. Ph. D.; CLIA# [id number] [facility] [id number] 22:59:28 Test Item Value Reference Range Interpretation Comments HBV DNA [facility] Undetected Undetected IU/mL Result in log IU/mL is (test code = Undetected. 16676-7) ----ADDITIO NAL INFORMATION---- ----The quantif ication range of this a ssay is 10 to1,000,000,000 IU/mL (1.00 log to 9. 00 log IU/mL). Testing was performed using the lucas HBV test ([employer] with the lucas 6800 System. Test Pe rformed by:[place] [id number] Director: Jose L Nieto M.D. Ph. D.; CLIA# [id number] [facility] CenterF[facility] Culture w/[id number] 21:23:05 Test Item Value Reference Range Interpretation Comments Final Report (test No fungus isolated at 4 code = 8488) weeks. Path Review - Fungus Culture yield may be (test code = 8479) affected by sample quality, prior treatment, and transportation conditions. The results have been reviewed and electronically signed by Pathologist:Kwesi Tristan MD, PhD #[id number] Calcofluor Stain No Fungi seen in direct (test code = 658-5) smearTest performed by fluorescent stain methodology. JOAQUIN (test code = JOAQUIN) Abdominal Abscess DrainCultures are held for 4 weeks before finalization. [facility] w/[id number] 21:23:05 Test Item Value Reference Range Interpretation Comments Final Report (test No fungus isolated at 4 code = 8488) weeks. Path Review - Fungus Culture yield may be (test code = 8479) affected by sample quality, prior treatment, and transportation conditions. The results have been reviewed and electronically signed by Pathologist:Kwesi Tristan MD, PhD #[id number] Calcofluor Stain No Fungi seen in direct (test code = 658-5) smearTest performed by fluorescent stain methodology. JOAQUIN (test code = JOAQUIN) Abdominal Abscess DrainCultures are held for 4 weeks before finalization. [facility] Culture w/[id number] 21:23:05 Test Item Value Reference Range Interpretation Comments Final Report (test No fungus isolated at 4 code = 8488) weeks. Path Review - Fungus Culture yield may be (test code = 8479) affected by sample quality, prior treatment, and transportation conditions. The results have been reviewed and electronically signed by Pathologist:Kwesi Tristan MD, PhD #[id number] Calcofluor Stain No Fungi seen in direct (test code = 658-5) smearTest performed by fluorescent stain methodology. JOAQUIN (test code = JOAQUIN) Abdominal Abscess DrainCultures are held for 4 weeks before finalization. [facility] Culture w/[id number] 21:23:05 Test Item Value Reference Range Interpretation Comments Final Report (test No fungus isolated at 4 code = 8488) weeks. Path Review - Fungus Culture yield may be (test code = 8479) affected by sample quality, prior treatment, and transportation conditions. The results have been reviewed and electronically signed by Pathologist:Kwesi Tristan MD, PhD #[id number] Calcofluor Stain No Fungi seen in direct (test code = 658-5) smearTest performed by fluorescent stain methodology. JOAQUIN (test code = JOAQUIN) Abdominal Abscess DrainCultures are held for 4 weeks before finalization. [facility] w/[id number] 21:23:05 Test Item Value Reference Range Interpretation Comments Final Report (test No fungus isolated at 4 code = 8488) weeks. Path Review - Fungus Culture yield may be (test code = 8479) affected by sample quality, prior treatment, and transportation conditions. The results have been reviewed and electronically signed by Pathologist:Kwesi Tristan MD, PhD #[id number] Calcofluor Stain No Fungi seen in direct (test code = 658-5) smearTest performed by fluorescent stain methodology. JOAQUIN (test code = JOAQUIN) Abdominal Abscess DrainCultures are held for 4 weeks before finalization. [facility] w/[id number] 21:23:05 Test Item Value Reference Range Interpretation Comments Final Report (test No fungus isolated at 4 code = 8488) weeks. Path Review - Fungus Culture yield may be (test code = 8479) affected by sample quality, prior treatment, and transportation conditions. The results have been reviewed and electronically signed by Pathologist:Kwesi Tristan MD, PhD #[id number] Calcofluor Stain No Fungi seen in direct (test code = 658-5) smearTest performed by fluorescent stain methodology. JOAQUIN (test code = JOAQUIN) Abdominal Abscess DrainCultures are held for 4 weeks before finalization. [facility] w/[id number] 21:23:05 Test Item Value Reference Range Interpretation Comments Final Report (test No fungus isolated at 4 code = 8488) weeks. Path Review - Fungus Culture yield may be (test code = 8479) affected by sample quality, prior treatment, and transportation conditions. The results have been reviewed and electronically signed by Pathologist:Kwesi Tristan MD, PhD #[id number] Calcofluor Stain No Fungi seen in direct (test code = 658-5) smearTest performed by fluorescent stain methodology. JOAQUIN (test code = JOAQUIN) Abdominal Abscess DrainCultures are held for 4 weeks before finalization. [facility] w/[id number] 21:23:05 Test Item Value Reference Range Interpretation Comments Final Report (test No fungus isolated at 4 code = 8488) weeks. Path Review - Fungus Culture yield may be (test code = 8479) affected by sample quality, prior treatment, and transportation conditions. The results have been reviewed and electronically signed by Pathologist:Kwesi Tristan MD, PhD #[id number] Calcofluor Stain No Fungi seen in direct (test code = 658-5) smearTest performed by fluorescent stain methodology. JOAQUIN (test code = JOAQUIN) Abdominal Abscess DrainCultures are held for 4 weeks before finalization. [facility] Center[facility] w/[id number] 21:23:05 Test Item Value Reference Range Interpretation Comments Final Report (test No fungus isolated at 4 code = 8488) weeks. Path Review - Fungus Culture yield may be (test code = 8479) affected by sample quality, prior treatment, and transportation conditions. The results have been reviewed and electronically signed by Pathologist:Kwesi Tristan MD, PhD #[id number] Calcofluor Stain No Fungi seen in direct (test code = 658-5) smearTest performed by fluorescent stain methodology. JOAQUIN (test code = JOAQUIN) Abdominal Abscess DrainCultures are held for 4 weeks before finalization. [facility] CenterCOVID-19 (SARS-CoV-2)[id number] 02:52:27 Test Item Value Reference Range Interpretation Comments COVID19 Not Detected Not Detected (SARS-CoV-2) (test code = 21379-3) COVID19 SARS Inpatient Indication (test Admission code = 01585) Covid 19 Comment See Note The lucas S ARS-CoV-2 (test code = [place] [address]) use on the jerry s [employer] System [...] sheet for patie nts provided by the fitter helper ([employer]) can be rev iewed at: https://www.fda .gov/m edia/245386/areli nload. A fact sheet fo r Health Care pro viders is provided by the fitter helper ([employer]) and can be reviewed at: https://www.fda .gov/m edia/068273/areli nload Results must be interpreted wit hin [...] is assay has been authorized by t [facility] for use only un kasie Emergency Use Authorization ( EUA) in laboratories that have been CLIA-certified to perform moderate-comple xity and high-comple xity tests. The Microbiology Laboratory at [facility], CLIA Accreditation #[id number] and CAP Accreditation #[id number], verif ied the performance characteristics of this assay. Int ernal controls are ed to monitor all sta ges of the test proces s. [facility] CenterCOVID-19 (SARS-CoV-2)[id number] 02:52:27 Test Item Value Reference Range Interpretation Comments COVID19 Not Detected Not Detected (SARS-CoV-2) (test code = 22846-7) COVID19 SARS Inpatient Indication (test Admission code = 52120) Covid 19 Comment See Note The lucas S ARS-CoV-2 (test code = [place] [address]) use on the jerry s [employer] System [...] sheet for patie nts provided by the fitter helper ([employer]) can be rev iewed at: https://www.fda .gov/m edia/610043/areli nload. A fact sheet fo r Health Care pro viders is provided by the fitter helper ([employer]) and can be reviewed at: https://www.fda .gov/m edia/429187/areli nload Results must be interpreted wit hin [...] is assay has been authorized by t [facility] for use only un kasie Emergency Use Authorization ( EUA) in laboratories that have been CLIA-certified to perform moderate-comple xity and high-comple xity tests. The Microbiology Laboratory at [facility], CLIA Accreditation #[id number] and CAP Accreditation #[id number], verif ied the performance characteristics of this assay. Int ernal controls are ed to monitor all sta ges of the test proces s. [facility] CenterCOVID-19 (SARS-CoV-2)[id number]-[id number] 02:52:27 Test Item Value Reference Range Interpretation Comments COVID19 Not Detected Not Detected (SARS-CoV-2) (test code = 37699-4) COVID19 SARS Inpatient Indication (test Admission code = 15489) Covid 19 Comment See Note The lucas S ARS-CoV-2 (test code = [place] [address]) use on the jerry s [employer] [...] sheet for patie nts provided by the fitter helper ([employer]) can be rev iewed at: https://www.fda .gov/m edia/113550/areli nload. A fact sheet fo r Health Care pro viders is provided by the fitter helper ([employer]) and can be reviewed at: https://www.fda .gov/m edia/937564/areli nload Results must be interpreted wit hin [...] is assay has been authorized by t [facility] for use only un kasie Emergency Use Authorization ( EUA) in laboratories that have been CLIA-certified to perform moderate-comple xity and high-comple xity tests. The Microbiology Laboratory at [facility], CLIA Accreditation #[id number] and CAP Accreditation #[id number], verif ied the performance characteristics of this assay. Int ernal controls are us ed to monitor all sta ges of the test proces s. [facility])[id number] 02:52:27 Test Item Value Reference Range Interpretation Comments COVID19 Not Detected Not Detected (SARS-CoV-2) (test code = 71494-0) COVID19 SARS Inpatient Indication (test Admission code = 66070) Covid 19 Comment See Note The lucas S ARS-CoV-2 (test code = [place] [address]) use on the jerry s [employer] [...] sheet for patie nts provided by the fitter helper ([employer]) can be rev iewed at: https://www.fda .gov/m edia/176829/areli nload. A fact sheet fo r Health Care pro viders is provided by the fitter helper ([employer]) and can be reviewed at: https://www.fda .gov/m edia/789144/areli nload Results must be interpreted wit hin [...] Th is assay has been authorized by [facility] for use only un kasie Emergency Use Authorization ( EUA) in laboratories that have been CLIA-certified to perform moderate-comple xity and high-comple xity tests. The Microbiology Laboratory at [facility], CLIA Accreditation #[id number] and CAP Accreditation #[id number], verif ied the performance characteristics of this assay. Int ernal controls are us ed to monitor all sta ges of the test proces s. [facility])[id number]-[id number] 02:52:27 Test Item Value Reference Range Interpretation Comments COVID19 Not Detected Not Detected (SARS-CoV-2) (test code = 73434-0) COVID19 SARS Inpatient Indication (test Admission code = 50548) Covid 19 Comment See Note The lucas S ARS-CoV-2 (test code = [place] [address]) use on the jerry s [employer] [...] sheet for patie nts provided by the fitter helper ([employer]) can be rev iewed at: https://www.fda .gov/m edia/450750/areli nload. A fact sheet fo r Health Care pro viders is provided by the fitter helper ([employer]) and can be reviewed at: https://www.fda .gov/m edia/496663/areli nload Results must be interpreted wit hin [...] Th is assay has been authorized by [facility] for use only un kasie Emergency Use Authorization ( EUA) in laboratories that have been CLIA-certified to perform moderate-comple xity and high-comple xity tests. The [facility] Laboratory at [facility], CLIA Accreditation #[id number] and CAP Accreditation #[id number], verif ied the performance characteristics of this assay. Int ernal controls are us ed to monitor all sta ges of the test proces s. [facility])[id number] 02:52:27 Test Item Value Reference Range Interpretation Comments COVID19 Not Detected Not Detected (SARS-CoV-2) (test code = 98324-3) COVID19 SARS Inpatient Indication (test Admission code = 49477) Covid 19 Comment See Note The lucas S ARS-CoV-2 (test code = [place] [address]) use on the jerry s [employer] [...] sheet for patie nts provided by the fitter helper ([employer]) can be rev iewed at: https://www.fda .gov/m edia/438865/areli nload. A fact sheet fo r Health Care pro viders is provided by the fitter helper ([employer]) and can be reviewed at: https://www.fda .gov/m edia/709288/areli nload Results must be interpreted wit hin [...] Th is assay has been authorized by [facility] for use only un kasie Emergency Use Authorization ( EUA) in laboratories that have been CLIA-certified to perform moderate-comple xity and high-comple xity tests. The [facility] Laboratory at [facility], CLIA Accreditation #[id number] and CAP Accreditation #[id number], verif ied the performance characteristics of this assay. Int ernal controls are us ed to monitor all sta ges of the test proces s. [facility])[id number] 02:52:27 Test Item Value Reference Range Interpretation Comments COVID19 Not Detected Not Detected (SARS-CoV-2) (test code = 99272-2) COVID19 SARS Inpatient Indication (test Admission code = 62343) Covid 19 Comment See Note The lucas S ARS-CoV-2 (test code = [place] [address]) use on the jerry s [employer] [...] sheet for patie nts provided by the fitter helper ([employer]) can be rev iewed at: https://www.fda .gov/m edia/470002/areli nload. A fact sheet fo r Health Care pro viders is provided by the fitter helper ([employer]) and can be reviewed at: https://www.fda .gov/m edia/383766/areli nload Results must be interpreted wit hin [...] Th is assay has been authorized by [facility] for use only un kasie Emergency Use Authorization ( EUA) in laboratories that have been CLIA-certified to perform moderate-comple xity and high-comple xity tests. The [facility] Laboratory at [facility], CLIA Accreditation #[id number] and CAP Accreditation #[id number], verif ied the performance characteristics of this assay. Int ernal controls are us ed to monitor all sta ges of the test proces s. [facility] ([facility]CoV-2)[id number] 02:52:27 Test Item Value Reference Range Interpretation Comments COVID19 Not Detected Not Detected (SARS-CoV-2) (test code = 78862-4) COVID19 SARS Inpatient Indication (test Admission code = 85027) Covid 19 Comment See Note The lucas S ARS-CoV-2 (test code = [place] [address]) use on the jerry s [employer] [...] sheet for patie nts provided by the fitter helper ([employer]) can be rev iewed at: https://www.fda .gov/m edia/659914/areli nload. A fact sheet fo r Health Care pro viders is provided by the fitter helper ([employer]) and can be reviewed at: https://www.fda .gov/m edia/783067/areli nload Results must be interpreted wit hin [...] is assay has been authorized by t [facility] for use only un kasie Emergency Use Authorization ( EUA) in laboratories that have been CLIA-certified to perform moderate-comple xity and high-comple xity tests. The [facility] Laboratory at [facility], CLIA Accreditation #[id number] and CAP Accreditation #[id number], verif ied the performance characteristics of this assay. Int ernal controls are us ed to monitor all sta ges of the test proces s. [facility] ([facility]CoV-2)[id number] 02:52:27 Test Item Value Reference Range Interpretation Comments COVID19 Not Detected Not Detected (SARS-CoV-2) (test code = 74389-7) COVID19 SARS Inpatient Indication (test Admission code = 37611) Covid 19 Comment See Note The lucas S ARS-CoV-2 (test code = [place] [address]) use on the jerry s [employer] [...] sheet for patie nts provided by the fitter helper ([employer]) can be rev iewed at: https://www.fda .gov/m edia/272020/areli nload. A fact sheet fo r Health Care pro viders is provided by the fitter helper ([employer]) and can be reviewed at: https://www.fda .gov/m edia/105181/areli nload Results must be interpreted wit hin [...] is assay has been authorized by t [facility] for use only un kasie Emergency Use Authorization ( EUA) in laboratories that have been CLIA-certified to perform moderate-comple xity and high-comple xity tests. The [facility] Laboratory at [facility], CLIA Accreditation #[id number] and CAP Accreditation #[id number], verif ied the performance characteristics of this assay. Int ernal controls are ed to monitor all sta ges of the test proces s. [facility] [id number] 20:17:30 Test Item Value Reference Range Interpretation Comments Final Report (test No growth code = 8488) Path Review - The results have been Anaerobe (test code reviewed and = 8478) electronically signed by Pathologist:Kwesi Tristan MD, PhD #[id number] JOAQUIN (test code = Abdominal Abscess Drain JOAQUIN) [facility] [id number] 20:17:30 Test Item Value Reference Range Interpretation Comments Final Report (test No growth code = 8488) Path Review - The results have been Anaerobe (test code reviewed and = 8478) electronically signed by Pathologist:Kwesi Tristan MD, PhD #[id number] JOAQUIN (test code = Abdominal Abscess Drain JOAQUIN) [facility] [id number] 20:17:30 Test Item Value Reference Range Interpretation Comments Final Report (test No growth code = 8488) Path Review - The results have been Anaerobe (test code reviewed and = 8478) electronically signed by Pathologist:Kwesi Tristan MD, PhD #[id number] JOAQUIN (test code = Abdominal Abscess Drain JOAQUIN) [facility] [id number] 20:17:30 Test Item Value Reference Range Interpretation Comments Final Report (test No growth code = 8488) Path Review - The results have been Anaerobe (test code reviewed and = 8478) electronically signed by Pathologist:Kwesi Tristan MD, PhD #[id number] JOAQUIN (test code = Abdominal Abscess Drain JOAQUIN) [facility] [id number] 20:17:30 Test Item Value Reference Range Interpretation Comments Final Report (test No growth code = 8488) Path Review - The results have been Anaerobe (test code reviewed and = 8478) electronically signed by Pathologist:Kwesi Tristan MD, PhD #[id number] JOAQUIN (test code = Abdominal Abscess Drain JOAQUIN) [facility] [id number] 20:17:30 Test Item Value Reference Range Interpretation Comments Final Report (test No growth code = 8488) Path Review - The results have been Anaerobe (test code reviewed and = 8478) electronically signed by Pathologist:Kwesi Tristan MD, PhD #[id number] JOAQUIN (test code = Abdominal Abscess Drain JOAQUIN) [facility] [id number] 20:17:30 Test Item Value Reference Range Interpretation Comments Final Report (test No growth code = 8488) Path Review - The results have been Anaerobe (test code reviewed and = 8478) electronically signed by Pathologist:Kwesi Tristan MD, PhD #[id number] JOAQUIN (test code = Abdominal Abscess Drain JOAQUIN) [facility] [id number] 20:17:30 Test Item Value Reference Range Interpretation Comments Final Report (test No growth code = 8488) Path Review - The results have been Anaerobe (test code reviewed and = 8478) electronically signed by Pathologist:Kwesi Tristan MD, PhD #[id number] JOAQUIN (test code = Abdominal Abscess Drain JOAQUIN) [facility] [id number] 20:17:30 Test Item Value Reference Range Interpretation Comments Final Report (test No growth code = 8488) Path Review - The results have been Anaerobe (test code reviewed and = 8478) electronically signed by Pathologist:Kwesi Tristan MD, PhD #[id number] JOAQUIN (test code = Abdominal Abscess Drain JOAQUIN) [facility] 2021-11-26 01:40:25 Test Item Value Reference Range Interpretation Comments Final Report (test No growth code = 8488) Path Review (test Immunity and antibiotic code = 8492) use may render culture negative. Ongoing infection requires repeat culture.The results have been reviewed and electronically signed by Pathologist:KAREL PABLO MD #[id number] Gram Stain Report No WBC's seen.No organisms (test code = seen. 00992-8) [facility]ram [facility] 2021-11-26 01:40:25 Test Item Value Reference Range Interpretation Comments Final Report (test No growth code = 8488) Path Review (test Immunity and antibiotic code = 8492) use may render culture negative. Ongoing infection requires repeat culture.The results have been reviewed and electronically signed by Pathologist:KAREL PABLO MD #[id number] Gram Stain Report No WBC's seen.No organisms (test code = seen. 32680-0) [facility]ram [facility] 2021-11-26 01:40:25 Test Item Value Reference Range Interpretation Comments Final Report (test No growth code = 8488) Path Review (test Immunity and antibiotic code = 8492) use may render culture negative. Ongoing infection requires repeat culture.The results have been reviewed and electronically signed by Pathologist:KAREL PABLO MD #[id number] Gram Stain Report No WBC's seen.No organisms (test code = seen. 70280-4) [facility]ram [facility] 2021-11-26 01:40:25 Test Item Value Reference Range Interpretation Comments Final Report (test No growth code = 8488) Path Review (test Immunity and antibiotic code = 8492) use may render culture negative. Ongoing infection requires repeat culture.The results have been reviewed and electronically signed by Pathologist:KAREL PABLO MD #[id number] Gram Stain Report No WBC's seen.No organisms (test code = seen. 85474-1) [facility]ram [facility] 2021-11-26 01:40:25 Test Item Value Reference Range Interpretation Comments Final Report (test No growth code = 8488) Path Review (test Immunity and antibiotic code = 8492) use may render culture negative. Ongoing infection requires repeat culture.The results have been reviewed and electronically signed by Pathologist:KAREL PABLO MD #[id number] Gram Stain Report No WBC's seen.No organisms (test code = seen. 47248-9) [facility]ram [facility] 2021-11-26 01:40:25 Test Item Value Reference Range Interpretation Comments Final Report (test No growth code = 8488) Path Review (test Immunity and antibiotic code = 8492) use may render culture negative. Ongoing infection requires repeat culture.The results have been reviewed and electronically signed by Pathologist:KAREL PABLO MD #[id number] Gram Stain Report No WBC's seen.No organisms (test code = seen. 16766-1) [facility]ram [facility] 2021-11-26 01:40:25 Test Item Value Reference Range Interpretation Comments Final Report (test No growth code = 8488) Path Review (test Immunity and antibiotic code = 8492) use may render culture negative. Ongoing infection requires repeat culture.The results have been reviewed and electronically signed by Pathologist:KAREL PABLO MD #[id number] Gram Stain Report No WBC's seen.No organisms (test code = seen. 70652-3) [facility]ram [facility]ain 2021-11-26 01:40:25 Test Item Value Reference Range Interpretation Comments Final Report (test No growth code = 8488) Path Review (test Immunity and antibiotic code = 8492) use may render culture negative. Ongoing infection requires repeat culture.The results have been reviewed and electronically signed by Pathologist:KAREL PABLO MD #[id number] Gram Stain Report No WBC's seen.No organisms (test code = seen. 18653-6) [facility]ram [facility]ain 2021-11-26 01:40:25 Test Item Value Reference Range Interpretation Comments Final Report (test No growth code = 8488) Path Review (test Immunity and antibiotic code = 8492) use may render culture negative. Ongoing infection requires repeat culture.The results have been reviewed and electronically signed by Pathologist:KAREL PABLO MD #[id number] Gram Stain Report No WBC's seen.No organisms (test code = seen. 06572-4) [facility]OVID[facility] ([facility]-2[facility] PCR- Asymptomatic [id number] 06:06:25 Test Item Value Reference Range Interpretation Comments COVID19 (SARS Not Detected Not Detected CoV-2) Result (test code = ____[place] a 03113-1) qualitative reverse-transcr iptase polymerase jenaro n reaction [...] patients provid ed by the manufacture r ([employer]) c an be reviewed at:https://www. fda.go v/media/742454/ downlo ad. A fact shee t for Health Care pro viders is provided by the fitter helper ([employer]) and can be reviewed at: https://www.fda .gov/m edia/242556/areli nload Results must be interpreted wit hin [...] were verified by the Microbiology Laboratory at [facility], CLIA Accreditation # : [id number] and CAP Accreditation # : [id number]. COVID19 SARS E COMMERCE SPECIALIST Swab Source (test code = 25364) COVID19 SARS Inpatient Indication (test Admission code = 21619) JOAQUIN (test code = hematology JOAQUIN) surveillance testing [facility]2022-07-09 00:32:07 Test Item Value Reference Range Interpretation Comments Final Report (test No growth code = 8488) Path Review (test The results have been code = 8492) reviewed and electronically signed by Pathologist:KAREL PABLO MD #[id number] Gram Stain Report Many WBC's seenNo (test code = organisms seen. 10239-3) [facility]2022-07-09 00:32:07 Test Item Value Reference Range Interpretation Comments Final Report (test No growth code = 8488) Path Review (test The results have been code = 8492) reviewed and electronically signed by Pathologist:KAREL PABLO MD #[id number] Gram Stain Report Many WBC's seenNo (test code = organisms seen. 59931-7) [facility]2022-07-09 00:32:07 Test Item Value Reference Range Interpretation Comments Final Report (test No growth code = 8488) Path Review (test The results have been code = 8492) reviewed and electronically signed by Pathologist:KAREL PABLO MD #[id number] Gram Stain Report Many WBC's seenNo (test code = organisms seen. 42540-8) [facility]2022-07-09 00:32:07 Test Item Value Reference Range Interpretation Comments Final Report (test No growth code = 8488) Path Review (test The results have been code = 8492) reviewed and electronically signed by Pathologist:KAREL PABLO MD #[id number] Gram Stain Report Many WBC's seenNo (test code = organisms seen. 92431-8) [facility]2022-07-09 00:32:07 Test Item Value Reference Range Interpretation Comments Final Report (test No growth code = 8488) Path Review (test The results have been code = 8492) reviewed and electronically signed by Pathologist:KAREL PABLO MD #[id number] Gram Stain Report Many WBC's seenNo (test code = organisms seen. 88820-6) [facility]2022-07-09 00:32:07 Test Item Value Reference Range Interpretation Comments Final Report (test No growth code = 8488) Path Review (test The results have been code = 8492) reviewed and electronically signed by Pathologist:KAREL PABLO MD #[id number] Gram Stain Report Many WBC's seenNo (test code = organisms seen. 21309-7) [facility]2022-07-09 00:32:07 Test Item Value Reference Range Interpretation Comments Final Report (test No growth code = 8488) Path Review (test The results have been code = 8492) reviewed and electronically signed by Pathologist:KAREL PABLO MD #[id number] Gram Stain Report Many WBC's seenNo (test code = organisms seen. 05399-1) [facility]2022-07-09 00:32:07 Test Item Value Reference Range Interpretation Comments Final Report (test No growth code = 8488) Path Review (test The results have been code = 8492) reviewed and electronically signed by Pathologist:KAREL PABLO MD #[id number] Gram Stain Report Many WBC's seenNo (test code = organisms seen. 86196-1) [facility]2022-07-09 00:32:07 Test Item Value Reference Range Interpretation Comments Final Report (test No growth code = 8488) Path Review (test The results have been code = 8492) reviewed and electronically signed by Pathologist:KAREL PABLO MD #[id number] Gram Stain Report Many WBC's seenNo (test code = organisms seen. 47810-6) [facility] 20:46:56 Test Item Value Reference Range Interpretation Comments IgG (test code = 6001) 1409 mg/dL 610-1616 [facility] 20:46:56 Test Item Value Reference Range Interpretation Comments IgG (test code = 6001) 1409 mg/dL 610-1616 [facility] 20:46:56 Test Item Value Reference Range Interpretation Comments IgG (test code = 6001) 1409 mg/dL 610-1616 [facility] Center[facility]inal[facility] with [facility]opic 2021-10-30 19:15:32 Test Item Value Reference Interpretation Comments Range UA WBC (test code = 1 See_Comment [Automa elbert 53666-6) message] The system which generated this result transmitted reference range : 0 - 2 /HPF. The reference range was not used to interpret this result as normal/abnormal . UA RBC (test code = 2 See_Comment [Automa elbert 16612-3) message] The system which generated this result transmitted reference range : 0 - 2 /HPF. The reference range was not used to interpret this result as normal/abnormal . UA Mucous (test code TRACE Not Seen-Trace = 08882-9) /HPF UA Bacteria (test OCC NOT SEEN /HPF A code = 62845-6) UA Squam Epi (test OCC None-Occasiona code = 53771-8) l /HPF JOAQUIN (test code = Some reporting JOAQUIN) parameters within the Urinalysis test have changed due to the implementation of new instrumentation in the [facility], allowing greater sensitivity of measurement. Urinalysis results reported by the [facility] using existing instrumentation, as well as Urinalysis testing performed manually or by backup methodology at the [facility] will remain relatively unchanged. New reporting parameters and units will now be reported for all campuses. Lab Interpretation Abnormal (test code = 78052-4) [facility] 2021-10-30 19:15:32 Test Item Value Reference Interpretation Comments Range UA WBC (test code = 1 See_Comment [Automa elbert 90366-8) message] The system which generated this result transmitted reference range : 0 - 2 /HPF. The reference range was not used to interpret this result as normal/abnormal . UA RBC (test code = 2 See_Comment [Automa elbert 22636-2) message] The system which generated this result transmitted reference range : 0 - 2 /HPF. The reference range was not used to interpret this result as normal/abnormal . UA Mucous (test code TRACE Not Seen-Trace = 61696-6) /HPF UA Bacteria (test OCC NOT SEEN /HPF A code = 65735-4) UA Squam Epi (test OCC None-Occasiona code = 15006-6) l /HPF JOAQUIN (test code = Some reporting JOAQUIN) parameters within the Urinalysis test have changed due to the implementation of new instrumentation in the [facility], allowing greater sensitivity of measurement. Urinalysis results reported by the [facility] using existing instrumentation, as well as Urinalysis testing performed manually or by backup methodology at the [facility] will remain relatively unchanged. New reporting parameters and units will now be reported for all [facility]. Lab Interpretation Abnormal (test code = 22435-9) [facility] 2021-10-30 19:15:32 Test Item Value Reference Interpretation Comments Range UA WBC (test code = 1 See_Comment [Automa elbert 31680-3) message] The system which generated this result transmitted reference range : 0 - 2 /HPF. The reference range was not used to interpret this result as normal/abnormal . UA RBC (test code = 2 See_Comment [Automa elbert 48126-9) message] The system which generated this result transmitted reference range : 0 - 2 /HPF. The reference range was not used to interpret this result as normal/abnormal . UA Mucous (test code TRACE Not Seen-Trace = 34346-8) /HPF UA Bacteria (test OCC NOT SEEN /HPF A code = 73775-9) UA Squam Epi (test OCC None-Occasiona code = 14014-0) l /HPF JOAQUIN (test code = Some reporting JOAQUIN) parameters within the Urinalysis test have changed due to the implementation of new instrumentation in the [facility], allowing greater sensitivity of measurement. Urinalysis results reported by the [facility] using existing instrumentation, as well as Urinalysis testing performed manually or by backup methodology at the [facility] will remain relatively unchanged. New reporting parameters and units will now be reported for all campuses. Lab Interpretation Abnormal (test code = 45548-6) [facility] 19:15:32 Test Item Value Reference Interpretation Comments Range UA WBC (test code = 1 See_Comment [Automa elbert 17203-4) message] The system which generated this result transmitted reference range : 0 - 2 /HPF. The reference range was not used to interpret this result as normal/abnormal . UA RBC (test code = 2 See_Comment [Automa elbert 08853-7) message] The system which generated this result transmitted reference range : 0 - 2 /HPF. The reference range was not used to interpret this result as normal/abnormal . UA Mucous (test code TRACE Not Seen-Trace = 67694-4) /HPF UA Bacteria (test OCC NOT SEEN /HPF A code = 30227-9) UA Squam Epi (test OCC None-Occasiona code = 73524-1) l /HPF JOAQUIN (test code = Some reporting JOAQUIN) parameters within the Urinalysis test have changed due to the implementation of new instrumentation in the [facility], allowing greater sensitivity of measurement. Urinalysis results reported by the [facility] using existing instrumentation, as well as Urinalysis testing performed manually or by backup methodology at the [facility] will remain relatively unchanged. New reporting parameters and units will now be reported for all campuses. Lab Interpretation Abnormal (test code = 61607-7) [facility] 2021[facility]30 19:15:32 Test Item Value Reference Interpretation Comments Range UA WBC (test code = 1 See_Comment [Automa elbert 25402-2) message] The system which generated this result transmitted reference range : 0 - 2 /HPF. The reference range was not used to interpret this result as normal/abnormal . UA RBC (test code = 2 See_Comment [Automa elbert 77253-9) message] The system which generated this result transmitted reference range : 0 - 2 /HPF. The reference range was not used to interpret this result as normal/abnormal . UA Mucous (test code TRACE Not Seen-Trace = 59084-7) /HPF UA Bacteria (test OCC NOT SEEN /HPF A code = 68339-4) UA Squam Epi (test OCC None-Occasiona code = 76502-5) l /HPF JOAQUIN (test code = Some reporting JOAQUIN) parameters within the Urinalysis test have changed due to the implementation of new instrumentation in the [facility], allowing greater sensitivity of measurement. Urinalysis results reported by the [facility] using existing instrumentation, as well as Urinalysis testing performed manually or by backup methodology at the [facility] will remain relatively unchanged. New reporting parameters and units will now be reported for all cincinnaties. Lab Interpretation Abnormal (test code = 51582-8) [facility] 2021-10[facility]30 19:15:32 Test Item Value Reference Interpretation Comments Range UA WBC (test code = 1 See_Comment [Automa elbert 04920-9) message] The system which generated this result transmitted reference range : 0 - 2 /HPF. The reference range was not used to interpret this result as normal/abnormal . UA RBC (test code = 2 See_Comment [Automa elbert 37499-6) message] The system which generated this result transmitted reference range : 0 - 2 /HPF. The reference range was not used to interpret this result as normal/abnormal . UA Mucous (test code TRACE Not Seen-Trace = 38214-9) /HPF UA Bacteria (test OCC NOT SEEN /HPF A code = 45273-6) UA Squam Epi (test OCC None-Occasiona code = 51169-6) l /HPF JOAQUIN (test code = Some reporting JOAQUIN) parameters within the Urinalysis test have changed due to the implementation of new instrumentation in the [facility], allowing greater sensitivity of measurement. Urinalysis results reported by the [facility] using existing instrumentation, as well as Urinalysis testing performed manually or by backup methodology at the [facility] will remain relatively unchanged. New reporting parameters and units will now be reported for all [facility]. Lab Interpretation Abnormal (test code = 53572-6) [facility] 2021-10-30 19:15:32 Test Item Value Reference Interpretation Comments Range UA WBC (test code = 1 See_Comment [Automa elbert 56879-0) message] The system which generated this result transmitted reference range : 0 - 2 /HPF. The reference range was not used to interpret this result as normal/abnormal . UA RBC (test code = 2 See_Comment [Automa elbert 13309-6) message] The system which generated this result transmitted reference range : 0 - 2 /HPF. The reference range was not used to interpret this result as normal/abnormal . UA Mucous (test code TRACE Not Seen-Trace = 54517-5) /HPF UA Bacteria (test OCC NOT SEEN /HPF A code = 23850-1) UA Squam Epi (test OCC None-Occasiona code = 72603-3) l /HPF JOAQUIN (test code = Some reporting JOAQUIN) parameters within the Urinalysis test have changed due to the implementation of new instrumentation in the [facility], allowing greater sensitivity of measurement. Urinalysis results reported by the [facility] using existing instrumentation, as well as Urinalysis testing performed manually or by backup methodology at the [facility] will remain relatively unchanged. New reporting parameters and units will now be reported for all [facility]. Lab Interpretation Abnormal (test code = 43035-6) [facility] 2021-10-30 19:15:32 Test Item Value Reference Interpretation Comments Range UA WBC (test code = 1 See_Comment [Automa elbert 59960-7) message] The system which generated this result transmitted reference range : 0 - 2 /HPF. The reference range was not used to interpret this result as normal/abnormal . UA RBC (test code = 2 See_Comment [Automa elbert 36914-4) message] The system which generated this result transmitted reference range : 0 - 2 /HPF. The reference range was not used to interpret this result as normal/abnormal . UA Mucous (test code TRACE Not Seen-Trace = 90100-4) /HPF UA Bacteria (test OCC NOT SEEN /HPF A code = 21380-9) UA Squam Epi (test OCC None-Occasiona code = 01340-4) l /HPF JOAQUIN (test code = Some reporting JOAQUIN) parameters within the Urinalysis test have changed due to the implementation of new instrumentation in the [facility], allowing greater sensitivity of measurement. Urinalysis results reported by the [facility] using existing instrumentation, as well as Urinalysis testing performed manually or by backup methodology at the [facility] will remain relatively unchanged. New reporting parameters and units will now be reported for all [facility]. Lab Interpretation Abnormal (test code = 01988-6) [facility] 2021-10-30 19:15:32 Test Item Value Reference Interpretation Comments Range UA WBC (test code = 1 See_Comment [Automa elbert 15627-5) message] The system which generated this result transmitted reference range : 0 - 2 /HPF. The reference range was not used to interpret this result as normal/abnormal . UA RBC (test code = 2 See_Comment [Automa elbert 81770-7) message] The system which generated this result transmitted reference range : 0 - 2 /HPF. The reference range was not used to interpret this result as normal/abnormal . UA Mucous (test code TRACE Not Seen-Trace = 93358-1) /HPF UA Bacteria (test OCC NOT SEEN /HPF A code = 67091-4) UA Squam Epi (test OCC None-Occasiona code = 75316-8) l /HPF JOAQUIN (test code = Some reporting JOAQUIN) parameters within the Urinalysis test have changed due to the implementation of new instrumentation in the [facility], allowing greater sensitivity of measurement. Urinalysis results reported by the [facility] using existing instrumentation, as well as Urinalysis testing performed manually or by backup methodology at the [facility] will remain relatively unchanged. New reporting parameters and units will now be reported for all campuses. Lab Interpretation Abnormal (test code = 93561-2) [facility] Review 2021-10-30 18:12:47 Test Item Value Reference Range Interpretation Comments BF Crystal CPPD Type (test code = 8519) BF Path Int A SMALL NUMBER OF (test code = CRYSTALS 4958) CONSISTENT WITH JOAQUINA RAMSEY MD, THOSE OF CPPD ARE PhD - 1087 8Dictated by: PRESENT IN A RAJWINDER RAMSEY MD , PhD - BACKGROUND OF [id number] NUMEROUS ACUTE Date/Time: INFLAMMATORY 13:12 PM CDT CELLS. Transcribed Gonzalez e/Time: 10.30.2021 13:1 2 PM CDTElectronical ly Signed By: TOSHIA RAMSEY MD, PhD - 1 0878 on 10.30.2021 13:1 2 PM JOAQUIN (test code Left knee = JOAQUIN) [facility] 2021-10-30 18:12:47 Test Item Value Reference Range Interpretation Comments BF Crystal CPPD Type (test code = 8519) BF Path Int A SMALL NUMBER OF (test code = CRYSTALS 4958) CONSISTENT WITH JOAQUINA RAMSEY MD, THOSE OF CPPD ARE PhD - 1086 8Dictated by: PRESENT IN A RAJWINDER RAMSEY MD , PhD - BACKGROUND [place] [address]Pgcoozzk NUMEROUS ACUTE Date/Time: INFLAMMATORY 13:12 PM CDT CELLS. Transcribed Gonzalez e/Time: 10.30.2021 13:1 2 PM CDTElectronical ly Signed By: TOSHIA RAMSEY MD, PhD - 1 0878 on 10.30.2021 13:1 2 PM JOAQUIN (test code Left knee = JOAQUIN) [facility] 2021-10-30 18:12:47 Test Item Value Reference Range Interpretation Comments BF Crystal CPPD Type (test code = 8519) BF Path Int A SMALL NUMBER OF (test code = CRYSTALS 4958) CONSISTENT WITH JOAQUINA RAMSEY MD, THOSE OF CPPD ARE PhD - 1086 8Dictated by: PRESENT IN A RAJWINDER RAMSEY MD , PhD - BACKGROUND OF [id number] NUMEROUS ACUTE Date/Time: INFLAMMATORY 13:12 PM CDT CELLS. Transcribed Gonzalez e/Time: 10.30.2021 13:1 2 PM CDTElectronical ly Signed By: TOSHIA RAMSEY MD, PhD - 1 0878 on 10.30.2021 13:1 2 PM JOAQUIN (test code Left knee = JOAQUIN) [facility] Review 2021-10-30 18:12:47 Test Item Value Reference Range Interpretation Comments BF Crystal CPPD Type (test code = 8519) BF Path Int A SMALL NUMBER OF (test code = CRYSTALS 4958) CONSISTENT WITH JOAQUINA RAMSEY MD, THOSE OF CPPD ARE PhD - 1086 8Dictated by: PRESENT IN A RAJWINDER RAMSEY MD , PhD - BACKGROUND OF [address]Ijnfdipm NUMEROUS ACUTE Date/Time: INFLAMMATORY 13:12 PM CDT CELLS. Transcribed Gonzalez e/Time: 10.30.2021 13:1 2 PM CDTElectronical ly Signed By: TOSHIA RAMSEY MD, PhD - 1 0878 on 10.30.2021 13:1 2 PM JOAQUIN (test code Left knee = JOAQUIN) [facility] Review 2021-10-30 18:12:47 Test Item Value Reference Range Interpretation Comments BF Crystal CPPD Type (test code = 8519) BF Path Int A SMALL NUMBER OF (test code = CRYSTALS 4958) CONSISTENT WITH JOAQUINA RAMSEY MD, THOSE OF CPPD ARE PhD - 1086 8Dictated by: PRESENT IN A RAJWINDER RAMSEY MD , PhD - BACKGROUND OF [address]362Btwjyjxp NUMEROUS ACUTE Date/Time: INFLAMMATORY 13:12 PM CDT CELLS. Transcribed Gonzalez e/Time: 10.30.2021 13:1 2 PM CDTElectronical ly Signed By: TOSHIA RAMSEY MD, PhD - 1 0878 on 10.30.2021 13:1 2 PM JOAQUIN (test code Left knee = JOAQUIN) [facility] Review 2021-10-30 18:12:47 Test Item Value Reference Range Interpretation Comments BF Crystal CPPD Type (test code = 8519) BF Path Int A SMALL NUMBER OF (test code = CRYSTALS 4958) CONSISTENT WITH JOAQUINA RAMSEY MD, THOSE OF CPPD ARE PhD - 1086 8Dictated by: PRESENT IN A RAJWINDER RAMSEY MD , PhD - BACKGROUND OF [address]Jhgedpxi NUMEROUS ACUTE Date/Time: .2021 INFLAMMATORY 13:12 PM CDT CELLS. Transcribed Gonzalez e/Time: 10.30.2021 13:1 2 PM CDTElectronical ly Signed By: TOSHIA RAMSEY MD, PhD - 1 78 on 10.30.2021 13:1 2 PM JOAQUIN (test code Left knee = JOAQUIN) [facility] Review 2021-10-30 18:12:47 Test Item Value Reference Range Interpretation Comments BF Crystal CPPD Type (test code = 8519) BF Path Int A SMALL NUMBER OF (test code = CRYSTALS 4958) CONSISTENT WITH JOAQUINA RAMSEY MD, THOSE OF CPPD ARE PhD - 1086 8Dictated by: PRESENT IN A RAJWINDER RAMSEY MD , PhD - BACKGROUND OF [address]Gkhpxdbb NUMEROUS ACUTE Date/Time: INFLAMMATORY 13:12 PM CDT CELLS. Transcribed Gonzalez e/Time: 10.30.2021 13:1 2 PM CDTElectronical ly Signed By: TOSHIA RAMSEY MD, PhD - 1 78 on 10.30.2021 13:1 2 PM JOAQUIN (test code Left knee = JOAQUIN) [facility] Review 2021-10-30 18:12:47 Test Item Value Reference Range Interpretation Comments BF Crystal CPPD Type (test code = 8519) BF Path Int A SMALL NUMBER OF (test code = CRYSTALS 4958) CONSISTENT WITH JOAQUINA RAMSEY MD, THOSE OF CPPD ARE PhD - 1086 8Dictated by: PRESENT IN A RAJWINDER RAMSEY MD , PhD - BACKGROUND OF [address]Ytsnonjg NUMEROUS ACUTE Date/Time: INFLAMMATORY 13:12 PM CDT CELLS. Transcribed Gonzalez e/Time: 10.30.2021 13:1 2 PM CDTElectronical ly Signed By: TOSHIA RAMSEY MD, PhD - 1 0878 on 10.30.2021 13:1 2 PM JOAQUIN (test code Left knee = JOAQUIN) [facility] Review 2021-10-30 18:12:47 Test Item Value Reference Range Interpretation Comments BF Crystal CPPD Type (test code = 8519) BF Path Int A SMALL NUMBER OF (test code = CRYSTALS 4958) CONSISTENT WITH JOAQUINA RAMSEY MD, THOSE OF CPPD ARE PhD - 1087 8Dictated by: PRESENT IN A RAJWINDER RAMSEY MD , PhD - BACKGROUND OF [address]Fwdzdgfr NUMEROUS ACUTE Date/Time: INFLAMMATORY 13:12 PM CDT CELLS. Transcribed Gonzalez e/Time: 10.30.2021 13:1 2 PM CDTElectronical ly Signed By: TOSHIA RAMSEY MD, PhD - 1 0878 on 10.30.2021 13:1 2 PM JOAQUIN (test code Left knee = JOAQUIN) [facility] 2021-10-30 16:48:58 Test Item Value Reference Range Interpretation Comments Ordered (test code = 6568) Test Added Test Needed (test code = 7604) CRP [facility] 2021-10-30 16:48:58 Test Item Value Reference Range Interpretation Comments Ordered (test code = 6568) Test Added Test Needed (test code = 7604) CRP [facility] 2021-10-30 16:48:58 Test Item Value Reference Range Interpretation Comments Ordered (test code = 6568) Test Added Test Needed (test code = 7604) CRP [facility] CenterBlood [id number] 21:21:08 Test Item Value Reference Range Interpretation Comments Final Report (test No growth code = 8488) Path Review - Immunity and antibiotic Bottle/Isolator use may render culture (test code = 8499) negative. Ongoing infection requires repeat culture. The results have been reviewed and electronically signed by Pathologist:Kwesi Tristan MD, PhD #[id number] [facility] w/ Path Review [...] knee Lab Interpretation (test code Abnormal = 79926-0) [facility]/ Path Review [...] knee Lab Interpretation (test code Abnormal = 54232-7) [facility]/ Path Review [...] knee Lab Interpretation (test code Abnormal = 32883-7) [facility]/ Path Review [...] knee Lab Interpretation (test code Abnormal = 23081-1) [facility]/ Path Review [...] knee Lab Interpretation (test code Abnormal = 71921-1) [facility]/ Path Review [...] knee Lab Interpretation (test code Abnormal = 69328-8) [facility]/ Path Review [...] knee Lab Interpretation (test code Abnormal = 17149-0) [facility]/ Path Review [...] knee Lab Interpretation (test code Abnormal = 71649-6) [facility]/ Path Review [...] knee Lab Interpretation (test code Abnormal = 29606-4) [facility] [id number] 03:30:30 Test Item Value Reference Range Interpretation [...] is available. [Automated mess age] The system [employer] generated this result transmitted ref erence range: /mcL. Th e reference range was not used to int erpret this result as normal/abnormal . RBC BF (test code 15 See_Comment This assay has been = 6933) validated for b surjti fluids. No refe rence ranges have bee n established. Te st results should be interpreted in context with th e patient s clinical cond ition. Pathologist con sult is available. [Automated mess age] The system [employer] generated this result transmitted ref erence range: /mcL. Th e reference range was not used to int erpret this result as normal/abnormal . JOAQUIN (test code = Left knee JOAQUIN) [facility] [id number] 03:30:30 Test Item Value Reference Range Interpretation [...] is available. [Automated mess age] The system [employer] generated this result transmitted ref erence range: [...] is available. [Automated mess age] The system [employer] generated this result transmitted ref erence range: /mcL. Th e reference range was not used to int erpret this result as normal/abnormal . JOAQUIN (test code = Left knee JOAQUIN) [facility] [id number] 03:30:30 Test Item Value Reference Range Interpretation [...] is available. [Automated mess age] The system [employer] generated this result transmitted ref erence range: [...] is available. [Automated mess age] The system [employer] generated this result transmitted ref erence range: /mcL. Th e reference range was not used to int erpret this result as normal/abnormal . JOAQUIN (test code = Left knee JOAQUIN) [facility] [id number] 03:30:30 Test Item Value Reference Range Interpretation [...] is available. [Automated mess age] The system [employer] generated this result transmitted ref erence range: [...] is available. [Automated mess age] The system [employer] generated this result transmitted ref erence range: /mcL. Th e reference range was not used to int erpret this result as normal/abnormal . JOAQUIN (test code = Left knee JOAQUIN) [facility] [id number] 03:30:30 Test Item Value Reference Range Interpretation [...] is available. [Automated mess age] The system [employer] generated this result transmitted ref erence range: [...] is available. [Automated mess age] The system [employer] generated this result transmitted ref erence range: /mcL. Th e reference range was not used to int erpret this result as normal/abnormal . JOAQUIN (test code = Left knee JOAQUIN) [facility] [id number] 03:30:30 Test Item Value Reference Range Interpretation [...] is available. [Automated mess age] The system [employer] generated this result transmitted ref erence range: [...] is available. [Automated mess age] The system [employer] generated this result transmitted ref erence range: /mcL. Th e reference range was not used to int erpret this result as normal/abnormal . JOAQUIN (test code = Left knee JOAQUIN) [facility] [id number] 03:30:30 Test Item Value Reference Range Interpretation [...] is available. [Automated mess age] The system [employer] generated this result transmitted ref erence range: [...] is available. [Automated mess age] The system [employer] generated this result transmitted ref erence range: /mcL. Th e reference range was not used to int erpret this result as normal/abnormal . JOAQUIN (test code = Left knee JOAQUIN) [facility] [id number] 03:30:30 Test Item Value Reference Range Interpretation [...] is available. [Automated mess age] The system [employer] generated this result transmitted ref erence range: [...] is available. [Automated mess age] The system [employer] generated this result transmitted ref erence range: /mcL. Th e reference range was not used to int erpret this result as normal/abnormal . JOAQUIN (test code = Left knee JOAQUIN) [facility] [id number] 03:30:30 Test Item Value Reference Range Interpretation [...] is available. [Automated mess age] The system [employer] generated this result transmitted ref erence range: [...] is available. [Automated mess age] The system [employer] generated this result transmitted ref erence range: /mcL. Th e reference range was not used to int erpret this result as normal/abnormal . JOAQUIN (test code = Left knee JOAQUIN) [facility] Count w/o [id number] 14:40:57 Test Item Value Reference Range Interpretation [...] (test code = 59.7 fL 35.1-46.3 H 18955-5) RDW-CV (test code = 17.2 % 12.0-15.5 H 788-0) Platelet count (test 323 K/uL 140-440 code = 777-3) MPV (test code = 9.6 fL 4.0-10.4 30634-5) INRBC (test code = 0.0 % See_Comment The INRBC 12371-4) (instrument NRB C) value reflects the enumerationof [...] line. Lab Interpretation Abnormal (test code = 94173-8) [facility] w/o [id number] 14:40:57 Test Item Value Reference Range Interpretation [...] (test code = 59.7 fL 35.1-46.3 H 91727-1) RDW-CV (test code = 17.2 % 12.0-15.5 H 788-0) Platelet count (test 323 K/uL 140-440 code = 777-3) MPV (test code = 9.6 fL 4.0-10.4 33254-4) INRBC (test code = 0.0 % See_Comment The INRBC 98238-7) (instrument NRB C) value reflects the enumerationof [...] line. Lab Interpretation Abnormal (test code = 67459-9) [facility] w/o [id number] 14:40:57 Test Item Value Reference Range Interpretation [...] (test code = 59.7 fL 35.1-46.3 H 58708-9) RDW-CV (test code = 17.2 % 12.0-15.5 H 788-0) Platelet count (test 323 K/uL 140-440 code = 777-3) MPV (test code = 9.6 fL 4.0-10.4 57152-5) INRBC (test code = 0.0 % See_Comment The INRBC 42171-6) (instrument NRB C) value reflects the enumerationof [...] line. Lab Interpretation Abnormal (test code = 96778-3) [facility] w/o [id number] 14:40:57 Test Item Value Reference Range Interpretation [...] (test code = 59.7 fL 35.1-46.3 H 89086-9) RDW-CV (test code = 17.2 % 12.0-15.5 H 788-0) Platelet count (test 323 K/uL 140-440 code = 777-3) MPV (test code = 9.6 fL 4.0-10.4 77677-7) INRBC (test code = 0.0 % <=0.0 The INRBC 73563-5) (instrument NRB C) value reflects the enumerationof [...] line. Lab Interpretation Abnormal (test code = 54007-6) [facility] w/o [id number] 14:40:57 Test Item Value Reference Range Interpretation [...] (test code = 59.7 fL 35.1-46.3 H 10066-0) RDW-CV (test code = 17.2 % 12.0-15.5 H 788-0) Platelet count (test 323 K/uL 140-440 code = 777-3) MPV (test code = 9.6 fL 4.0-10.4 56792-4) INRBC (test code = 0.0 % <=0.0 The INRBC 40416-3) (instrument NRB C) value reflects the enumerationof [...] line. Lab Interpretation Abnormal (test code = 16701-9) [facility] Count w/o [id number] 14:40:57 Test Item Value Reference Range Interpretation [...] (test code = 59.7 fL 35.1-46.3 H 34640-7) RDW-CV (test code = 17.2 % 12.0-15.5 H 788-0) Platelet count (test 323 K/uL 140-440 code = 777-3) MPV (test code = 9.6 fL 4.0-10.4 45897-5) INRBC (test code = 0.0 % <=0.0 The INRBC 29146-3) (instrument NRB C) value reflects the enumerationof [...] line. Lab Interpretation Abnormal (test code = 05834-9) [facility] Count w/o [id number] 14:40:57 Test Item Value Reference Range Interpretation [...] (test code = 59.7 fL 35.1-46.3 H 69568-8) RDW-CV (test code = 17.2 % 12.0-15.5 H 788-0) Platelet count (test 323 K/uL 140-440 code = 777-3) MPV (test code = 9.6 fL 4.0-10.4 23132-5) INRBC (test code = 0.0 % <=0.0 The INRBC 18525-0) (instrument NRB C) value reflects the enumerationof [...] line. Lab Interpretation Abnormal (test code = 56524-3) [facility] w/o Jdmvcfrixmjt3616-90-31 14:40:57 Test Item Value Reference Range Interpretation [...] (test code = 59.7 fL 35.1-46.3 H 00291-0) RDW-CV (test code = 17.2 % 12.0-15.5 H 788-0) Platelet count (test 323 K/uL 140-440 code = 777-3) MPV (test code = 9.6 fL 4.0-10.4 78380-1) INRBC (test code = 0.0 % <=0.0 The INRBC 73647-8) (instrument NRB C) value reflects the enumerationof [...] line. Lab Interpretation Abnormal (test code = 80536-2) [facility] Blood Count w/o Iinpioquetpp7360-31-90 14:40:57 Test Item Value Reference Range Interpretation [...] (test code = 59.7 fL 35.1-46.3 H 85367-1) RDW-CV (test code = 17.2 % 12.0-15.5 H 788-0) Platelet count (test 323 K/uL 140-440 code = 777-3) MPV (test code = 9.6 fL 4.0-10.4 65630-1) INRBC (test code = 0.0 % <=0.0 The INRBC 51672-1) (instrument NRB C) value reflects the enumerationof [...] line. Lab Interpretation Abnormal (test code = 78102-6) [facility] Review 2021-10-23 21:38:00RMP PRReviewed and Electronically signed by Pathologist:Kwesi Tristan MD, PhD #[id number] [facility] Path [id number] 21:38:00RMP PRReviewed and Electronically signed by Pathologist:Kwesi Tristan MD, PhD #[id number] [facility] Path [id number] 21:38:00RMP PRReviewed and Electronically signed by Pathologist:Kwesi Tristan MD, PhD #[id number] [facility]Un[facility] KingwoodRespiratory PCR Panel Path [id number] 21:38:00RMP PRReviewed and Electronically signed by Pathologist:Kwesi Tristan MD, PhD #[id number] [facility] Review 2021-10-23 21:38:00RMP PRReviewed and Electronically signed by Pathologist:Kwesi Tristan MD, PhD #[id number] [facility]ENTERUn[facility] KingwoodRespiratory PCR Panel Path [id number] 21:38:00RMP PRReviewed and Electronically signed by Pathologist:Kwesi Tristan MD, PhD #[id number] [facility] Path [id number] 21:38:00RMP PRReviewed and Electronically signed by Pathologist:Kwesi Tristan MD, PhD #[id number] [facility] Path [id number] 21:38:00RMP PRReviewed and Electronically signed by Pathologist:Kwesi Tristan MD, PhD #[id number] [facility]Res[facility] Path Review 2021-10-23 21:38:00RMP PRReviewed and Electronically signed by Pathologist:Kwesi Tristan MD, PhD #[id number] [facility] HospitalRes[facility] Viral Panel, Nasopharyngeal Swab 2021-10-22 23:50:33 Test Item Value Reference Range Interpretation [...] (test code Not Detected Not Detected = 5724) Chlamydiophila pneumoniae (test Not Detected Not Detected code = 5139) Mycoplasma pneumoniae (test code Not Detected Not Detected = 6203) [facility], Nasopharyngeal Lvit2723-63-01 23:50:33 Test Item Value Reference Range Interpretation [...] code Not Detected Not Detected = 6203) [facility], Nasopharyngeal [id number] 23:50:33 Test Item Value Reference Range Interpretation [...] code Not Detected Not Detected = 6203) [facility] Vir[facility], Nasopharyngeal [id number] 23:50:33 Test Item Value Reference Range Interpretation [...] code Not Detected Not Detected = 6203) [facility], Nasopharyngeal [id number] 23:50:33 Test Item Value Reference Range Interpretation [...] code Not Detected Not Detected = 6203) [facility], Nasopharyngeal [id number] 23:50:33 Test Item Value Reference Range Interpretation [...] (test code Not Detected Not Detected = 7304) Chlamydiophila pneumoniae (test Not Detected Not Detected code = 5139) Mycoplasma pneumoniae (test code Not Detected Not Detected = 6203) [facility]Res[facility] Vir[facility] Panel, Nasopharyngeal [id number] 23:50:33 Test Item Value Reference Range Interpretation [...] code Not Detected Not Detected = 6203) [facility], Nasopharyngeal [id number] 23:50:33 Test Item Value Reference Range Interpretation [...] code Not Detected Not Detected = 6203) [facility]Res[facility], Nasopharyngeal [id number] 23:50:33 Test Item Value Reference Range Interpretation [...] code Not Detected Not Detected = 6203) [facility])2021-10-22 15:43:23 Test Item Value Reference Range Interpretation Comments NT ProBNP (test code = 151 pg/mL See_Comment H [Aut omated message] 28916-9) The system [employer] generated this result transmit elbert reference range : <=125. The refe rence range was not u sed to interpret th is result as normal/abnormal . Lab Interpretation (test Abnormal code = 77510-3) [facility]2021-10-22 15:43:23 Test Item Value Reference Range Interpretation Comments NT ProBNP (test code = 151 pg/mL See_Comment H [Aut omated message] 64042-4) The system [employer] generated this result transmit elbert reference range : <=125. The refe rence range was not u sed to interpret th is result as normal/abnormal . Lab Interpretation (test Abnormal code = 64223-6) [facility]2021-10-22 15:43:23 Test Item Value Reference Range Interpretation Comments NT ProBNP (test code = 151 pg/mL See_Comment H [Aut omated message] 42321-1) The system [employer] generated this result transmit elbert reference range : <=125. The refe rence range was not u sed to interpret th is result as normal/abnormal . Lab Interpretation (test Abnormal code = 69608-6) [facility]2021-10-22 15:43:23 Test Item Value Reference Range Interpretation Comments NT ProBNP (test code = 89679-9) 151 pg/mL <=125 H Lab Interpretation (test code = Abnormal 78234-5) [facility]2021-10-22 15:43:23 Test Item Value Reference Range Interpretation Comments NT ProBNP (test code = 59976-6) 151 pg/mL <=125 H Lab Interpretation (test code = Abnormal 89882-8) [facility]2021-10-22 15:43:23 Test Item Value Reference Range Interpretation Comments NT ProBNP (test code = 42775-8) 151 pg/mL <=125 H Lab Interpretation (test code = Abnormal 36441-9) [facility]2021-10-22 15:43:23 Test Item Value Reference Range Interpretation Comments NT ProBNP (test code = 88241-6) 151 pg/mL <=125 H Lab Interpretation (test code = Abnormal 86198-1) [facility]2021-10-22 15:43:23 Test Item Value Reference Range Interpretation Comments NT ProBNP (test code = 28548-6) 151 pg/mL <=125 H Lab Interpretation (test code = Abnormal 38506-2) [facility]2021-10-22 15:43:23 Test Item Value Reference Range Interpretation Comments NT ProBNP (test code = 42723-7) 151 pg/mL <=125 H Lab Interpretation (test code = Abnormal 45529-4) [facility] CenterV Ifnijvj2100-86-12 15:07:44 Test Item Value Reference Range Interpretation Comments V Lactate (test code = 2519-7) 1.6 mmol/L 0.5-1.6 [facility]V Gbaqzkz6040-10-48 15:07:44 Test Item Value Reference Range Interpretation Comments V Lactate (test code = 2519-7) 1.6 mmol/L 0.5-1.6 [facility] CenterVB Yioyijx2965-74-31 15:07:44 Test Item Value Reference Range Interpretation Comments V Lactate (test code = 2519-7) 1.6 mmol/L 0.5-1.6 [facility]CMV Ab IgG+IgM Path Review 2021-09-28 17:26:06CMV Panel PRPositive IgG with low IgM suggests previous infection. IVIG can give false positivity.High titers of IgG can give false negative IgM. Therefore, active disease ispossible but less likely with this pattern.Reviewed and Electronically signed by Pathologist:KAREL PABLO MD #[id number] [facility]ONAUn[facility] CMV Ab IgG+IgM Path [id number] 17:26:06CMV Panel PRPositive IgG with low IgM suggests previous infection. IVIG can give false positivity.High titers of IgG can give false negative IgM. Therefore, active disease ispossible but less likely with this pattern.Reviewed and Electronically signed by Pathologist:KAREL PABLO MD #[id number] [facility]ONAUnMemorial [facility] KingwoodCMV Ab IgG+IgM Path [id number] 17:26:06 CMV Panel PRPositive IgG with low IgM suggests previous infection. IVIG can give false positivity.High titers of IgG can give false negative IgM. Therefore, active disease ispossible but less likely with this pattern.Reviewed and Electronically signed by Pathologist:KAREL PABLO MD #[id number] [facility]ZONAUnMemorial [facility] Hospital KingwoodCMV Ab IgG+IgM Path Umgnmu3579-03-35 17:26:06CMV Panel PRPositive IgG with low IgM suggests previous infection. IVIG can give false positivity.High titers of IgG can give false negative IgM. Therefore, active disease ispossible but less likely with this pattern.Reviewed and Electronically signed by Pathologist:KAREL PABLO MD #[id number] [facility]ONAUnMem[facility] CMV Ab IgG+IgM Path [id number] 17:26:06CMV Panel PRPositive IgG with low IgM suggests previous infection. IVIG can give false positivity.High titers of IgG can give false negative IgM. Therefore, active disease ispossible but less likely with this pattern.Reviewed and Electronically signed by Pathologist:KAREL PABLO MD #[id number] [facility]ONAUnMem[facility] Hospital KingwoodCMV Ab IgG+IgM Path [id number] 17:26:06 CMV Panel PRPositive IgG with low IgM suggests previous infection. IVIG can give false positivity.High titers of IgG can give false negative IgM. Therefore, active disease ispossible but less likely with this pattern.Reviewed and Electronically signed by Pathologist:KAREL PABLO MD #[id number] [facility]ONAUnMem[facility] Hospital KingwoodCMV Ab IgG+IgM Path [id number] 17:26:06CMV Panel PRPositive IgG with low IgM suggests previous infection. IVIG can give false positivity.High titers of IgG can give false negative IgM. Therefore, active disease ispossible but less likely with this pattern.Reviewed and Electronically signed by Pathologist:KAREL PABLO MD #[id number] [facility]ONAUn[facility] CMV Ab IgG+IgM Path [id number] 17:26:06CMV Panel PRPositive IgG with low IgM suggests previous infection. IVIG can give false positivity.High titers of IgG can give false negative IgM. Therefore, active disease ispossible but less likely with this pattern.Reviewed and Electronically signed by Pathologist:KAREL PABLO MD #0990 [facility]ONAUnMem[facility] KingwoodCMV Ab IgG+IgM Path [id number] 17:26:06 CMV Panel PRPositive IgG with low IgM suggests previous infection. IVIG can give false positivity.High titers of IgG can give false negative IgM. Therefore, active disease ispossible but less likely with this pattern.Reviewed and Electronically signed by Pathologist:KAREL PABLO MD #[id number] [facility]ONAUnMemorial [facility] Surgical Hospital KingwoodHIV-1 DNA and RNA Qual [id number] 00:30:30 Test Item Value Reference Range Interpretation Comments HIV-1 Undetected Undetected Repeat testing in 1 to 2 months DNA/RNA is recommended for those atrisk Qual-Sanchez of HIV-1 infect ion. (test code ----ADDITIONAL = 82266) INFORMATION---- Th is test was per formed using the [employer] RealTime HIV-1Qualitative assay ([employer] [place]) .This test was developed and i ts performance characteristics determined by [facility] in a manner consistent with CLIArequirement s. This test has not been cleare d or approved bythe U.S. Food and Drug Administration. Test Performed by:[facility] [address] [place], [place] [address]Rwq Direct or: Mirza Nieto M.D. Ph. D.; CLIA# [id number] [facility] B[facility]letonHIV-1 DNA and RNA Qual PCR 2021-09-27 00:30:30 Test Item Value Reference Range Interpretation Comments HIV-1 Undetected Undetected Repeat testing in 1 to 2 months DNA/RNA is recommended for those [facility] of HIV-1 infect ion. (test code ----ADDITIONAL = 53418) INFORMATION---- Th is test was per formed using the [employer] RealTime HIV-1Qualitative assay ([employer] [place]) .This test was developed and i ts performance characteristics determined by [facility] in a manner consistent with CLIArequirement s. This test has not been cleare d or approved bythe U.S. Food and Drug Administration. Test Performed by:[facility] [address] [place], [place] [id number] Direct or: Mirza Nieto M.D. Ph. D.; CLIA# [id number] [facility] CenterHIV-1 DNA and RNA Qual PCR 2021-09-27 00:30:30 Test Item Value Reference Range Interpretation Comments HIV-1 Undetected Undetected Repeat testing in 1 to 2 months DNA/RNA is recommended for those [facility] of HIV-1 infect ion. (test code ----ADDITIONAL = 98451) INFORMATION---- Th is test was per formed using the [employer] RealTime HIV-1Qualitative assay ([employer] [place]) .This test was developed and i ts performance characteristics determined by [facility] in a manner consistent with CLIArequirement s. This test has not been cleare d or approved bythe U.S. Food and Drug Administration. Test Performed by:[facility] [address] [place] [id number] Direct or: Mirza Nieto M.D. Ph. D.; CLIA# [id number] [facility]letonHIV-1 DNA and RNA Qual PCR 2021-09-27 00:30:30 Test Item Value Reference Range Interpretation Comments HIV-1 Undetected Undetected Repeat testing in 1 to 2 months DNA/RNA is recommended for those [facility] of HIV-1 infect ion. (test code ----ADDITIONAL = 50656) INFORMATION---- Th is test was per formed using the [employer] RealTime HIV-1Qualitative assay ([employer] [place]) .This test was developed and i ts performance characteristics determined by [facility] in a manner consistent with CLIArequirement s. This test has not been cleare d or approved bythe U.S. Food and Drug Administration. Test Performed by:[facility] [address] [place] [id number] Direct or: Mirza Nieto M.D. Ph. D.; CLIA# [id number] [facility]letonHIV-1 DNA and RNA Qual PCR 2021-09-27 00:30:30 Test Item Value Reference Range Interpretation Comments HIV-1 Undetected Undetected Repeat testing in 1 to 2 months DNA/RNA is recommended for those [facility] of HIV-1 infect ion. (test code ----ADDITIONAL = 68352) INFORMATION---- Th is test was per formed using the Lobo RealTime HIV-1Qualitative assay ([employer] [place]) .This test was developed and i ts performance characteristics determined by [facility] in a manner consistent with CLIArequirement s. This test has not been cleare d or approved bythe U.S. Food and Drug Administration. Test Performed by:[facility] [address] [place] [id number] Direct or: Mirza Nieto M.D. Ph. D.; CLIA# [id number] [facility]letonHIV-1 DNA and RNA Qual PCR 2021-09-27 00:30:30 Test Item Value Reference Range Interpretation Comments HIV-1 Undetected Undetected Repeat testing in 1 to 2 months DNA/RNA is recommended for those [facility] of HIV-1 infect ion. (test code ----ADDITIONAL = 67932) INFORMATION---- Th is test was per formed using the [employer] RealTime HIV-1Qualitative assay ([employer] [place]) .This test was developed and i ts performance characteristics determined by [facility] in a manner consistent with CLIArequirement s. This test has not been cleare d or approved bythe U.S. Food and Drug Administration. Test Performed by:[facility] [address] [place] [id number] Direct or: Mirza Nieto M.D. Ph. D.; CLIA# [id number] [facility]letonHIV-1 DNA and RNA Qual PCR 2021-09-27 00:30:30 Test Item Value Reference Range Interpretation Comments HIV-1 Undetected Undetected Repeat testing in 1 to 2 months DNA/RNA is recommended for those [facility] of HIV-1 infect ion. (test code ----ADDITIONAL = 82574) INFORMATION---- Th is test was per formed using the [employer]obo RealTime HIV-1Qualitative assay ([employer] [place]) .This test was developed and i ts performance characteristics determined by [facility] in a manner consistent with CLIArequirement s. This test has not been cleare d or approved bythe U.S. Food and Drug Administration. Test Performed by:[facility] [address] [place] [id number] Direct or: Mirza Nieto M.D. Ph. D.; CLIA# [id number] [facility]letonHIV-1 DNA and RNA Qual PCR 2021-09-27 00:30:30 Test Item Value Reference Range Interpretation Comments HIV-1 Undetected Undetected Repeat testing in 1 to 2 months DNA/RNA is recommended for those [facility] of HIV-1 infect ion. (test code ----ADDITIONAL = 43017) INFORMATION---- Th is test was per formed using the [employer] RealTime HIV-1Qualitative assay ([employer] [place]) .This test was developed and i ts performance characteristics determined by [facility] in a manner consistent with CLIArequirement s. This test has not been cleare d or approved bythe U.S. Food and Drug Administration. Test Performed by:[facility] [email or web address] [address] [place] [id number] Direct or: Mirza Nieto M.D. Ph. D.; CLIA# [id number] [facility] CenterHIV-1 DNA and RNA Qual PCR 2021-09-27 00:30:30 Test Item Value Reference Range Interpretation Comments HIV-1 Undetected Undetected Repeat testing in 1 to 2 months DNA/RNA is recommended for those [facility] of HIV-1 infect ion. (test code ----ADDITIONAL = 95376) INFORMATION---- Th is test was per formed using the [employer]obo RealTime HIV-1Qualitative assay ([employer] [place]) .This test was developed and i ts performance characteristics determined by [facility] in a manner consistent with CLKayequirement s. This test has not been cleare d or approved bythe U.S. Food and Drug Administration. Test Performed by:[facility] [address] [place], [place] [address]Two Direct or: Mirza Nieto M.D. Ph. D.; CLIA# [id number] [facility]CMV Ab IgG+[id number] 20:39:35 Test Item Value Reference Range Interpretation Comments CMV IgM Int (test code = 5219) Negative Negative CMV IgG Int (test code = 5217) Positive Negative A Lab Interpretation (test code = Abnormal 95739-4) [facility] Ab IgG+[id number] 20:39:35 Test Item Value Reference Range Interpretation Comments CMV IgM Int (test code = 5219) Negative Negative CMV IgG Int (test code = 5217) Positive Negative A Lab Interpretation (test code = Abnormal 42047-7) [facility] Ab IgG+[id number] 20:39:35 Test Item Value Reference Range Interpretation Comments CMV IgM Int (test code = 5219) Negative Negative CMV IgG Int (test code = 5217) Positive Negative A Lab Interpretation (test code = Abnormal 68938-4) [facility] Ab IgG+MmH3694-42-31 20:39:35 Test Item Value Reference Range Interpretation Comments CMV IgM Int (test code = 5219) Negative Negative CMV IgG Int (test code = 5217) Positive Negative A Lab Interpretation (test code = Abnormal 66764-3) [facility] Ab IgG+VcZ9423-76-64 20:39:35 Test Item Value Reference Range Interpretation Comments CMV IgM Int (test code = 5219) Negative Negative CMV IgG Int (test code = 5217) Positive Negative A Lab Interpretation (test code = Abnormal 27530-6) [facility] Ab IgG+NvG3790-41-69 20:39:35 Test Item Value Reference Range Interpretation Comments CMV IgM Int (test code = 5219) Negative Negative CMV IgG Int (test code = 5217) Positive Negative A Lab Interpretation (test code = Abnormal 79541-0) [facility] Ab IgG+KeE4668-20-31 20:39:35 Test Item Value Reference Range Interpretation Comments CMV IgM Int (test code = 5219) Negative Negative CMV IgG Int (test code = 5217) Positive Negative A Lab Interpretation (test code = Abnormal 66203-9) [facility] Ab IgG+SuU5601-66-67 20:39:35 Test Item Value Reference Range Interpretation Comments CMV IgM Int (test code = 5219) Negative Negative CMV IgG Int (test code = 5217) Positive Negative A Lab Interpretation (test code = Abnormal 05579-5) [facility] Ab IgG+[id number] 20:39:35 Test Item Value Reference Range Interpretation Comments CMV IgM Int (test code = 5219) Negative Negative CMV IgG Int (test code = 5217) Positive Negative A Lab Interpretation (test code = Abnormal 58738-0) [facility] [id number] 16:27:56 Test Item Value Reference Range Interpretation Comments HBe Ab-Sanchez (test Negative Negative Test Perf ormed by:Basom code = 09177-8) [facility] [id number] [employer] [place], [place] [address]Jeq Director: Jose L Nieto M.D. Ph. D.; CLIA# [id number] [facility] [id number] 16:27:56 Test Item Value Reference Range Interpretation Comments HBe Ab-Sanchez (test Negative Negative Test Perf ormed by:Basom code = 78750-9) [facility] [id number] [employer] [employer] [place], [place] [address]Pfe Director: Jose L Nieto M.D. Ph. D.; CLIA# [id number] [facility] [id number] 16:27:56 Test Item Value Reference Range Interpretation Comments HBe Ab-Sanchez (test Negative Negative Test Perf ormed by:Basom code = 31220-8) [facility] [address] [address] [id number] [employer] [place], [place] [address]Hcf Director: Jose L Nieto M.D. Ph. D.; CLIA# [id number] [facility] [id number] 16:27:56 Test Item Value Reference Range Interpretation Comments HBe Ab-Sanchez (test Negative Negative Test Perf ormed by:Basom code = 27609-6) [facility] Sp[employer] [id number] [employer] [place] [id number] Director: Jose L Nieto M.D. Ph. D.; CLIA# [id number] [facility] [id number] 16:27:56 Test Item Value Reference Range Interpretation Comments HBe Ab-Sanchez (test Negative Negative Test Perf ormed by:Basom code = 94584-3) [facility] Sp[employer] ior [id number] Super [employer] [place] [id number] Director: Jose L Nieto M.D. Ph. D.; CLIA# [id number] [facility] [facility] [id number] 16:27:56 Test Item Value Reference Range Interpretation Comments HBe Ab-Sanchez (test Negative Negative Test Perf ormed by:Basom code = 58253-9) [facility] Spireon ior Sdfut[address] Super ior [employer] [place] [id number] Director: Jose L Nieto M.D. Ph. D.; CLIA# [id number] [facility] [id number] 16:27:56 Test Item Value Reference Range Interpretation Comments HBe Ab-Sanchez (test Negative Negative Test Perf ormed by:Basom code = 95137-0) [facility] Sp[address]on ior [address] [place], [place] [address]Tdi Director: Jose L Nieto M.D. Ph. D.; CLIA# [id number] [facility] [id number] 16:27:56 Test Item Value Reference Range Interpretation Comments HBe Ab-Sanchez (test Negative Negative Test Perf ormed by:Basom code = 01251-8) [facility] Spireon ior Fsija7934 Super i[address] [employer] [place] [id number] Director: Jose L Nieto M.D. Ph. D.; CLIA# [id number] [facility] Yt9719-73-27 16:27:56 Test Item Value Reference Range Interpretation Comments HBe Ab-Basom (test Negative Negative Test Perf ormed by:Basom code = 09827-8) [facility] [employer] [place] [address] [employer] [place], [place] [address]Lqy Director: Jose L Nieto M.D. Ph. D.; CLIA# [id number] [facility] B IgM Core Ab (CONFIRM ACUTE INFECTION ONLY) (anti-HBc IgM; HBcAb IgM)2021-09-26 16:17:35 Test Item Value Reference Range Interpretation Comments Hep B Core IgM-Basom Negative Negative Test Pe rformed by:Basom (test code = [facility] - 69647-4) [place] [address] [place], [place] [address]Ooz Director: Jose L Nieto M.D. Ph. D.; CLIA# [id number] [facility] B IgM Core Ab (CONFIRM ACUTE INFECTION ONLY) (anti-HBc IgM; HBcAb IgM)2021-09-26 16:17:35 Test Item Value Reference Range Interpretation Comments Hep B Core IgM-Basom Negative Negative Test Pe rformed by:Basom (test code = [facility] - 56448-9) [place] [address] [place], [place] [address]Gmc Director: Jose L Nieto M.D. Ph. D.; CLIA# [id number] [facility] B IgM Core Ab (CONFIRM ACUTE INFECTION ONLY) (anti-HBc IgM; HBcAb IgM)2021-09-26 16:17:35 Test Item Value Reference Range Interpretation Comments Hep B Core IgM-Basom Negative Negative Test Pe rformed by:Basom (test code = [facility] - 67793-5) [place] [address] [employer] [place], [place] [address]Nkl Director: Jose L Nieto M.D. Ph. D.; CLIA# [id number] [facility] B IgM Core Ab (CONFIRM ACUTE INFECTION ONLY) (anti-HBc IgM; HBcAb IgM)2021-09-26 16:17:35 Test Item Value Reference Range Interpretation Comments Hep B Core IgM-Basom Negative Negative Test Pe rformed by:Basom (test code = [facility] - 35183-5) [place] [address] [place], [place] [address]Gvn Director: Jose L Nieto M.D. Ph. D.; CLIA# [id number] [facility] B IgM Core Ab (CONFIRM ACUTE INFECTION ONLY) (anti-HBc IgM; HBcAb IgM)2021-09-26 16:17:35 Test Item Value Reference Range Interpretation Comments Hep B Core IgM-Basom Negative Negative Test Pe rformed by:Basom (test code = [facility] - 73241-8) [place] [address] [employer] [place], [place] [address]Tbw Director: Jose L Nieto M.D. Ph. D.; CLIA# [id number] [facility] B IgM Core Ab (CONFIRM ACUTE INFECTION ONLY) (anti-HBc IgM; HBcAb IgM)2021-09-26 16:17:35 Test Item Value Reference Range Interpretation Comments Hep B Core IgM-Basom Negative Negative Test Pe rformed by:Basom (test code = [facility] - 01455-8) [place] [address] [place], [place] [address]Jlj Director: Jose L Nieto M.D. Ph. D.; CLIA# [id number] [facility] B IgM Core Ab (CONFIRM ACUTE INFECTION ONLY) (anti-HBc IgM; HBcAb IgM)2021-09-26 16:17:35 Test Item Value Reference Range Interpretation Comments Hep B Core IgM-Basom Negative Negative Test Pe rformed by:Basom (test code = [facility] - 80241-4) [place] [address] [employer] [place], [place] [address]Ghw Director: Jose L Nieto M.D. Ph. D.; CLIA# [id number] [facility] B IgM Core Ab (CONFIRM ACUTE INFECTION ONLY) (anti-HBc IgM; HBcAb IgM)2021-09-26 16:17:35 Test Item Value Reference Range Interpretation Comments Hep B Core IgM-Basom Negative Negative Test Pe rformed by:Basom (test code = [facility] - 54465-7) [place] Sp[employer] ior Xmkeb5800 Sp[employer]on [employer] [place], [place] [address]Iby Director: Jose L Nieto M.D. Ph. D.; CLIA# [id number] [facility] B IgM Core Ab (CONFIRM ACUTE INFECTION ONLY) (anti-HBc IgM; HBcAb IgM)2021-09-26 16:17:35 Test Item Value Reference Range Interpretation Comments Hep B Core IgM-Basom Negative Negative Test Pe rformed by:Basom (test code = [facility] - 51479-3) [place] Sp[employer] [address] Ylqye[address]25 Sp[employer] [employer] [employer] [place], [place] [address]Wjj Director: Jose L Nieto M.D. Ph. D.; CLIA# [id number] [facility] [id number] 16:12:45 Test Item Value Reference Range Interpretation Comments HBe Ag-Basom (test Negative Negative Test Perf ormed by:Basom code = 71672-0) [facility] [employer] Tqooy7554 [employer] [place], [place] [address]Jmp Director: Jose L Nieto M.D. Ph. D.; CLIA# [id number] [facility] [id number] 16:12:45 Test Item Value Reference Range Interpretation Comments HBe Ag-Basom (test Negative Negative Test Perf ormed by:Basom code = 46282-3) [facility] Spireon ior Xdybr6344 Sp[employer]on i[employer] [place], [place] [address]Pqi Director: Jose L Nieto M.D. Ph. D.; CLIA# [id number] [facility] [id number] 16:12:45 Test Item Value Reference Range Interpretation Comments HBe Ag-Basom (test Negative Negative Test Perf ormed by:Basom code = 09299-5) [facility] Spireon ior [address] [place] [id number] Director: Jose L Nieto M.D. Ph. D.; CLIA# [id number] [facility] [id number] 16:12:45 Test Item Value Reference Range Interpretation Comments HBe Ag-Sanchez (test Negative Negative Test Perf ormed by:Basom code = 48692-9) [facility] Spireon ior Mcpcz1085 [address] [employer] [place] [id number] Director: Jose L Nieto M.D. Ph. D.; CLIA# [id number] [facility] Ce2780-61-97 16:12:45 Test Item Value Reference Range Interpretation Comments HBe Ag-Sanchez (test Negative Negative Test Perf ormed by:Basom code = 05618-5) [facility] ior Knwdw0774 Super i[address] [employer] [place] [id number] Director: Jose L Nieto M.D. Ph. D.; CLIA# [id number] [facility] [id number] 16:12:45 Test Item Value Reference Range Interpretation Comments HBe Ag-Sanchez (test Negative Negative Test Perf ormed by:Basom code = 28611-0) [facility] Sp[address]on ior Q[address] [place] [id number] Director: Jose L Nieto M.D. Ph. D.; CLIA# [id number] [facility] [id number] 16:12:45 Test Item Value Reference Range Interpretation Comments HBe Ag-Sanchez (test Negative Negative Test Perf ormed by:Basom code = 56704-3) [facility] Spireon ior Nor[address] [place] [id number] Director: Jose L Nieto M.D. Ph. D.; CLIA# [id number] [facility] [id number] 16:12:45 Test Item Value Reference Range Interpretation Comments HBe Ag-Sanchez (test Negative Negative Test Perf ormed by:Basom code = 45453-1) [facility] Super ior Mgpjg4329 Super i[employer] [place], [place] [address]Oac Director: Jose L Nieto M.D. Ph. D.; CLIA# [id number] [facility] [id number] 16:12:45 Test Item Value Reference Range Interpretation Comments [facility] (test Negative Negative Test Perf ormed by:Basom code = 58071-9) [facility] Labor atories [facility] Spireon ior Alfop5864 Spireon ior [employer] [place], [place] [address]Osa Director: Jose L Nieto M.D. Ph. D.; CLIA# [id number] [facility] CenterFlow Cytometry Specimen Collection -Bone Ehkkex6754-16-78 14:01:59 Test Item Value Reference Range Interpretation Comments Flow Cytometry Yes Test performe d by:The (Received) (test code [facility] sofia Radha GRACIA = 8319) [facility] Cyto metry [address]fe[address] [place] [address] [employer] Ap Link (test [id number] code = 18597) [facility] CenterFlow Cytometry Specimen Collection -Bone Krgbqj6442-52-23 14:01:59 Test Item Value Reference Range Interpretation Comments Flow Cytometry Yes Test performe d by:The (Received) (test code [facility] sofia Radha MD = 8319) [facility] Cyto metry [address]vb[address] [place] [address] [employer] Ap Link (test [id number] code = 95549) [facility] CenterFlow Cytometry Specimen Collection -Bone Qrtdsm4879-74-35 14:01:59 Test Item Value Reference Range Interpretation Comments Flow Cytometry Yes Test performe d by:The (Received) (test code [facility] sofia [facility] = 8319) [facility] Cyto metry [address] [place] [address] [employer] Ap Link (test [id number] code = 86243) [facility] Center[facility]ostics Specimen Collection -Bone Pczbtd6198-15-77 20:29:07 Test Item Value Reference Range Interpretation Comments Molecular Diagnostics (Received) Yes (test code = 8400) [employer] Ap Link (test code = 56319) [id number] [facility] CenterMolecular [facility]ostics Specimen Collection -Bone Iountu3099-94-71 20:29:07 Test Item Value Reference Range Interpretation Comments Molecular Diagnostics (Received) Yes (test code = 8400) Sd Ap Link (test code = 05641) [id number] [facility] Specimen Collection -Bone Vtpqqd4260-14-00 20:29:07 Test Item Value Reference Range Interpretation Comments Molecular Diagnostics (Received) Yes (test code = 8400) Sd Ap Link (test code = 55597) [id number] [facility] -Bone Kqghux3392-85-51 20:29:07 Test Item Value Reference Range Interpretation Comments Molecular Diagnostics (Received) Yes (test code = 8400) Sd Ap Link (test code = 59281) [id number] [facility] Specimen Collection -Bone Fucket6253-21-63 20:29:07 Test Item Value Reference Range Interpretation Comments Molecular Diagnostics (Received) Yes (test code = 8400) Sd Ap Link (test code = 00791) [id number] [facility] Specimen Collection -Bone Caqhgd1560-28-88 20:29:07 Test Item Value Reference Range Interpretation Comments Molecular Diagnostics (Received) Yes (test code = 8400) Sd Ap Link (test code = 77585) [id number] [facility] Specimen Collection -Bone Ptdjdh8429-37-04 20:29:07 Test Item Value Reference Range Interpretation Comments Molecular Diagnostics (Received) Yes (test code = 8400) Sd Ap Link (test code = 19450) [id number] [facility] Specimen Collection -Bone Uktxre3420-11-87 20:29:07 Test Item Value Reference Range Interpretation Comments Molecular Diagnostics (Received) Yes (test code = 8400) Sd Ap Link (test code = 58283) [id number] [facility] Specimen Collection -Bone Ifqrcw4420-68-99 20:29:07 Test Item Value Reference Range Interpretation Comments Molecular Diagnostics (Received) Yes (test code = 8400) Sd Ap Link (test code = 81965) [id number] [facility] TP53 Collection, [facility] 2021-09-25 20:28:10 Test Item Value Reference Range Interpretation Comments Molecular Diagnostics (Received) (test Yes code = 8400) [facility] TP53 Collection, [facility] 2021-09-25 20:28:10 Test Item Value Reference Range Interpretation Comments Molecular Diagnostics (Received) (test Yes code = 8400) [facility] TP53 Collection, [facility] 2021-09-25 20:28:10 Test Item Value Reference Range Interpretation Comments Molecular Diagnostics (Received) (test Yes code = 8400) [facility] TP53 Collection, [facility] 2021-09-25 20:28:10 Test Item Value Reference Range Interpretation Comments Molecular Diagnostics (Received) (test Yes code = 8400) [facility] TP53 Collection, [facility] 2021-09-25 20:28:10 Test Item Value Reference Range Interpretation Comments Molecular Diagnostics (Received) (test Yes code = 8400) [facility] TP53 Collection, [facility] 2021-09-25 20:28:10 Test Item Value Reference Range Interpretation Comments Molecular Diagnostics (Received) (test Yes code = 8400) [facility] TP53 Collection, [facility] 2021-09-25 20:28:10 Test Item Value Reference Range Interpretation Comments Molecular Diagnostics (Received) (test Yes code = 8400) [facility] TP53 Collection, [facility] 2021-09-25 20:28:10 Test Item Value Reference Range Interpretation Comments Molecular Diagnostics (Received) (test Yes code = 8400) [facility] TP53 Collection, [facility] 2021-09-25 20:28:10 Test Item Value Reference Range Interpretation Comments Molecular Diagnostics (Received) (test Yes code = 8400) [facility] MYD88 Mutation Analysis Collection, Flvzmish4192-05-89 20:28:09 Test Item Value Reference Range Interpretation Comments Molecular Diagnostics (Received) (test Yes code = 8400) [facility] MYD88 Mutation Analysis Collection, Mltvdfkh3664-73-00 20:28:09 Test Item Value Reference Range Interpretation Comments Molecular Diagnostics (Received) (test Yes code = 8400) [facility] MYD88 Mutation Analysis Collection, Jrgjmdot0952-64-64 20:28:09 Test Item Value Reference Range Interpretation Comments Molecular Diagnostics (Received) (test Yes code = 8400) [facility] MYD88 Mutation Analysis Collection, Dnrtjgdt1987-98-27 20:28:09 Test Item Value Reference Range Interpretation Comments Molecular Diagnostics (Received) (test Yes code = 8400) [facility] MYD88 Mutation Analysis Collection, Uxyvojty9457-40-68 20:28:09 Test Item Value Reference Range Interpretation Comments Molecular Diagnostics (Received) (test Yes code = 8400) [facility] MYD88 Mutation Analysis Collection, Mjlonsel0945-68-45 20:28:09 Test Item Value Reference Range Interpretation Comments Molecular Diagnostics (Received) (test Yes code = 8400) [facility] MYD88 Mutation Analysis Collection, Puqfoddc4026-51-44 20:28:09 Test Item Value Reference Range Interpretation Comments Molecular Diagnostics (Received) (test Yes code = 8400) [facility] MYD88 Mutation Analysis Collection, Sadbimax3958-34-75 20:28:09 Test Item Value Reference Range Interpretation Comments Molecular Diagnostics (Received) (test Yes code = 8400) [facility] MYD88 Mutation Analysis Collection, Wvjcjaut3341-91-62 20:28:09 Test Item Value Reference Range Interpretation Comments Molecular Diagnostics (Received) (test Yes code = 8400) [facility] CenterCytogenetics Specimen Collection - Bone Cuskhy3536-50-05 20:21:07 Test Item Value Reference Range Interpretation Comments Sd Ap Link (test code = 56652) [id number] Cytogenetics (Received) (test code Yes = 8304) [facility] CenterCyt[facility]etics Specimen Collection - Bone Vpxmbj8354-61-59 20:21:07 Test Item Value Reference Range Interpretation Comments Sd Ap Link (test code = 89753) [id number] Cytogenetics (Received) (test code Yes = 8304) [facility] CenterC[facility] Specimen Collection - Bone Ynxfuh1948-08-35 20:21:07 Test Item Value Reference Range Interpretation Comments Sd Ap Link (test code = 59902) [id number] Cytogenetics (Received) (test code Yes = 8304) [facility] Center[facility] Specimen Collection - Bone Womdvd0819-50-41 20:21:07 Test Item Value Reference Range Interpretation Comments Sd Ap Link (test code = 01002) [id number] Cytogenetics (Received) (test code Yes = 8304) [facility] Specimen Collection - Bone Hatfzr7680-12-57 20:21:07 Test Item Value Reference Range Interpretation Comments Sd Ap Link (test code = 83673) [id number] Cytogenetics (Received) (test code Yes = 8304) [facility] Specimen Collection - Bone Auiqmr9479-09-09 20:21:07 Test Item Value Reference Range Interpretation Comments Sd Ap Link (test code = 40942) [id number] Cytogenetics (Received) (test code Yes = 8304) [facility] Specimen Collection - Bone Oqyhjr3809-33-51 20:21:07 Test Item Value Reference Range Interpretation Comments Sd Ap Link (test code = 86384) [id number] Cytogenetics (Received) (test code Yes = 8304) [facility] Specimen Collection - Bone Eyrblm9928-61-48 20:21:07 Test Item Value Reference Range Interpretation Comments Sd Ap Link (test code = 08516) [id number] Cytogenetics (Received) (test code Yes = 8304) [facility] Specimen Collection - Bone Tzynom0668-21-03 20:21:07 Test Item Value Reference Range Interpretation Comments Sd Ap Link (test code = 90058) [id number] Cytogenetics (Received) (test code Yes = 8304) [facility] MYC FISH Collection, Nonblood 2021-09-25 19:48:44 Test Item Value Reference Range Interpretation Comments Cytogenetics (Received) (test code = Yes 8304) [facility] MYC FISH Collection, Nonblood 2021-09-25 19:48:44 Test Item Value Reference Range Interpretation Comments Cytogenetics (Received) (test code = Yes 8304) [facility] MYC FISH Collection, Nonblood 2021-09-25 19:48:44 Test Item Value Reference Range Interpretation Comments Cytogenetics (Received) (test code = Yes 8304) [facility] MYC FISH Collection, [facility] 2021-09-25 19:48:44 Test Item Value Reference Range Interpretation Comments Cytogenetics (Received) (test code = Yes 8304) [facility] MYC FISH Collection, [facility] 2021-09-25 19:48:44 Test Item Value Reference Range Interpretation Comments Cytogenetics (Received) (test code = Yes 8304) [facility] MYC FISH Collection, [facility] 2021-09-25 19:48:44 Test Item Value Reference Range Interpretation Comments Cytogenetics (Received) (test code = Yes 8304) [facility] MYC FISH Collection, [facility] 2021-09-25 19:48:44 Test Item Value Reference Range Interpretation Comments Cytogenetics (Received) (test code = Yes 8304) [facility] MYC FISH Collection, [facility] 2021-09-25 19:48:44 Test Item Value Reference Range Interpretation Comments Cytogenetics (Received) (test code = Yes 8304) [facility] MYC FISH Collection, [facility] 2021-09-25 19:48:44 Test Item Value Reference Range Interpretation Comments Cytogenetics (Received) (test code = Yes 8304) [facility] Chromosome Analysis Collection, [id number] 19:48:43 Test Item Value Reference Range Interpretation Comments Cytogenetics (Received) (test code = Yes 8304) [facility] Chromosome Analysis Collection, Npulfchz1584-38-05 19:48:43 Test Item Value Reference Range Interpretation Comments Cytogenetics (Received) (test code = Yes 8304) [facility] Chromosome Analysis Collection, Iezhtyeo7985-03-66 19:48:43 Test Item Value Reference Range Interpretation Comments Cytogenetics (Received) (test code = Yes 8304) [facility] Chromosome Analysis Collection, Knfgkovr3453-00-77 19:48:43 Test Item Value Reference Range Interpretation Comments Cytogenetics (Received) (test code = Yes 8304) [facility] Chromosome Analysis Collection, Dyxhhqif3613-15-59 19:48:43 Test Item Value Reference Range Interpretation Comments Cytogenetics (Received) (test code = Yes 8304) [facility] Chromosome Analysis Collection, Gyfqzeay5703-15-02 19:48:43 Test Item Value Reference Range Interpretation Comments Cytogenetics (Received) (test code = Yes 8304) [facility] Chromosome Analysis Collection, Vpvvptcr4071-18-87 19:48:43 Test Item Value Reference Range Interpretation Comments Cytogenetics (Received) (test code = Yes 8304) [facility] Chromosome Analysis Collection, Liuhmirj5980-11-54 19:48:43 Test Item Value Reference Range Interpretation Comments Cytogenetics (Received) (test code = Yes 8304) [facility] Chromosome Analysis Collection, Sbcxobzu3956-78-93 19:48:43 Test Item Value Reference Range Interpretation Comments Cytogenetics (Received) (test code = Yes 8304) [facility] BCL6 FISH Collection, [facility] 2021-09-25 19:48:42 Test Item Value Reference Range Interpretation Comments Cytogenetics (Received) (test code = Yes 8304) [facility] BCL6 FISH Collection, [facility] 2021-09-25 19:48:42 Test Item Value Reference Range Interpretation Comments Cytogenetics (Received) (test code = Yes 8304) [facility] BCL6 FISH Collection, [facility] 2021-09-25 19:48:42 Test Item Value Reference Range Interpretation Comments Cytogenetics (Received) (test code = Yes 8304) [facility] BCL6 FISH Collection, [facility] 2021-09-25 19:48:42 Test Item Value Reference Range Interpretation Comments Cytogenetics (Received) (test code = Yes 8304) [facility] BCL6 FISH Collection, [facility] 2021-09-25 19:48:42 Test Item Value Reference Range Interpretation Comments Cytogenetics (Received) (test code = Yes 8304) [facility] BCL6 FISH Collection, [facility] 2021-09-25 19:48:42 Test Item Value Reference Range Interpretation Comments Cytogenetics (Received) (test code = Yes 8304) [facility] BCL6 FISH Collection, Nonblood 2021-09-25 19:48:42 Test Item Value Reference Range Interpretation Comments Cytogenetics (Received) (test code = Yes 8304) [facility] BCL6 FISH Collection, Nonblood 2021-09-25 19:48:42 Test Item Value Reference Range Interpretation Comments Cytogenetics (Received) (test code = Yes 8304) [facility] BCL6 FISH Collection, Nonblood 2021-09-25 19:48:42 Test Item Value Reference Range Interpretation Comments Cytogenetics (Received) (test code = Yes 8304) [facility] Screen with Confirm 2021-09-25 19:44:59 Test Item Value Reference Range Interpretation Comments HTLV I/II Ab Negative Negative Test Performed by:[facility] (test [facility] oratories - code = 27032-5) [facility] [employer] [employer] [place] [id number] Director: Jose L Nieto M.D. Ph. D.; CLIA# [id number] [facility] CenterHTLV [facility]/II Ab Screen with Confirm 2021-09-25 19:44:59 Test Item Value Reference Range Interpretation Comments HTLV I/II Ab Negative Negative Test Performed by:[facility] (test [facility] oratories - code = 49665-4) [facility] [employer] [employer] [place], [place] [address]Mgm Director: Jose L Nieto M.D. Ph. D.; CLIA# [id number] [facility]II [facility] Screen with Confirm 2021-09-25 19:44:59 Test Item Value Reference Range Interpretation Comments HTLV I/II Ab Negative Negative Test Performed by:[facility] (test [facility] Lab oratories - code = 41171-8) [facility] [employer] [employer] [place], [place] [address]Qpl Director: Jose L Nieto M.D. Ph. D.; CLIA# [id number] [facility]HT[facility]II [facility] Screen with Confirm 2021-09-25 19:44:59 Test Item Value Reference Range Interpretation Comments HTLV I/II Ab Negative Negative Test Performed by:[facility] (test Clinic Lab oratories - code = 76300-9) [facility] [id number] [address] [employer] [place] [id number] Director: Jose L Nieto M.D. Ph. D.; CLIA# [id number] [facility] CenterHTLV [facility]/II Ab Screen with Confirm 2021-09-25 19:44:59 Test Item Value Reference Range Interpretation Comments HTLV I/II Ab Negative Negative Test Performed by:[facility] (test Clinic Lab oratories - code = 34556-6) [facility] [id number] [employer] [place] [id number] Director: Jose L Nieto M.D. Ph. D.; CLIA# [id number] [facility]HT[facility]II Ab Screen with Confirm 2021-09-25 19:44:59 Test Item Value Reference Range Interpretation Comments HTLV I/II Ab Negative Negative Test Performed by:[facility] (test Clinic Lab oratories - code = 30206-4) [facility] [id number] [employer] [place] [id number] Director: Jose L Nieto M.D. Ph. D.; CLIA# [id number] [facility]HT[facility]II Ab Screen with Confirm 2021-09-25 19:44:59 Test Item Value Reference Range Interpretation Comments HTLV I/II Ab Negative Negative Test Performed by:[facility] (test Clinic Lab oratories - code = 98987-4) [facility] [id number] [address] [employer] [employer] [place], [place] [address]Cqm Director: Jose L Nieto M.D. Ph. D.; CLIA# [id number] [facility]HT[facility]II [facility] Screen with Confirm 2021-09-25 19:44:59 Test Item Value Reference Range Interpretation Comments HTLV I/II Ab Negative Negative Test Performed by:[facility] (test Clinic Lab oratories - code = 07901-0) [facility] [id number] [employer] [place], [place] [address]Chx Director: Jose L Nieto M.D. Ph. D.; CLIA# [id number] [facility]HT[facility]II Ab Screen with Confirm 2021-09-25 19:44:59 Test Item Value Reference Range Interpretation Comments HTLV I/II Ab Negative Negative Test Performed by:[facility] (test Clinic Lab oratories - code = 83111-3) [facility] perior [id number] [place], [place] [address]Afe Director: Jose L Nieto M.D. Ph. D.; CLIA# [id number] [facility] CenterCreat[facility] Rvsspb0379-51-22 08:17:15 Test Item Value Reference Range Interpretation Comments CK (test code = 2157-6) 276 U/L 39-308 [facility] Bpawhx9920-07-09 08:17:15 Test Item Value Reference Range Interpretation Comments CK (test code = 2157-6) 276 U/L 39-308 [facility] Djnukw9850-93-50 08:17:15 Test Item Value Reference Range Interpretation Comments CK (test code = 2157-6) 276 U/L 39-308 [facility] Csqjsa9911-49-12 08:17:15 Test Item Value Reference Range Interpretation Comments CK (test code = 2157-6) 276 U/L 39-308 [facility] Kwfwon3765-51-94 08:17:15 Test Item Value Reference Range Interpretation Comments CK (test code = 2157-6) 276 U/L 39-308 [facility] Center[facility] Xitfuv6000-69-04 08:17:15 Test Item Value Reference Range Interpretation Comments CK (test code = 2157-6) 276 U/L 39-308 [facility] Uhfrwp5024-44-62 08:17:15 Test Item Value Reference Range Interpretation Comments CK (test code = 2157-6) 276 U/L 39-308 [facility] Wxveqd3251-97-80 08:17:15 Test Item Value Reference Range Interpretation Comments CK (test code = 2157-6) 276 U/L 39-308 [facility] Jzmnvl4396-12-22 08:17:15 Test Item Value Reference Range Interpretation Comments CK (test code = 2157-6) 276 U/L 39-308 [facility] RPR Path Interpretation 2021-09-23 12:13:35 Test Item Value Reference Interpretation Comments Range TMP RPR Path The Rapid Plasma Interpretation (test Reagin (RPR) code = 207430) assay is F LEUR negative. If a MD Quentin KUMAR syphilis 92626Emoojwti b y: infection is ELZAMD Quentin BALLARD suspected, [address]Tuhkadvi please perform a Date/Time: Treponemal 09.23.2021 7:13 AM specific CDT Transcribed screening assay. Date/Time: 09.23.2021 7:13 AM CDTElectronical ly Signed By: MD Quentin CARO [id number] on 09.23.2021 7:13 AM C [facility] Path Interpretation 2021-09-23 12:13:35 Test Item Value Reference Interpretation Comments Range TMP RPR Path The Rapid Plasma Interpretation (test Reagin (RPR) code = 581424) assay is F LEUR negative. If a MD Quentin KUMAR syphilis 46310Qyedxehx b y: infection is ELZAMD Quentin BALLARD suspected, 38[address]Jgbzkklm please perform a Date/Time: Treponemal 09.23.2021 7:13 AM specific CDT Transcribed screening assay. Date/Time: 09.23.2021 7:13 AM CDTElectronical ly Signed By: MD Quentin CARO [id number] on 09.23.2021 7:13 AM C [facility] RPR Path Interpretation 2021-09-23 12:13:35 Test Item Value Reference Interpretation Comments Range TMP RPR Path The Rapid Plasma Interpretation (test Reagin (RPR) code = 786112) assay is F LEUR negative. If a THIERNO RENTERIA MD - syphilis 19024Msukagrz b y: infection is ELZAGABY RENTERIA MD - suspected, 05584Esllaoqr please perform a Date/Time: Treponemal 09.23.2021 7:13 AM specific CDT Transcribed screening assay. Date/Time: 09.23.2021 7:13 AM CDTElectronical ly Signed By: MD Quentin CARO [id number] on 09.23.2021 7:13 AM C [facility] RPR Path Interpretation 2021-09-23 12:13:35 Test Item Value Reference Interpretation Comments Range TMP RPR Path The Rapid Plasma Interpretation (test Reagin (RPR) code = 563613) assay is F LEUR negative. If a THIERNO RENTERIA MD - syphilis 17380Ayngsjtn b y: infection is ELZA RENTERIA MD - suspected, [address]Onnlssef please perform a Date/Time: Treponemal 09.23.2021 7:13 AM specific CDT Transcribed screening assay. Date/Time: 09.23.2021 7:13 AM CDTElectronical ly Signed By: MD Quentin CARO [id number] on 09.23.2021 7:13 AM C [facility] RPR Path Interpretation 2021-09-23 12:13:35 Test Item Value Reference Interpretation Comments Range TMP RPR Path The Rapid Plasma Interpretation (test Reagin (RPR) code = 117554) assay is F LEUR negative. If a THIERNO RENTERIA MD - syphilis 49231Qmavbtxw b y: infection is ELZAGABY RENTERIA MD - suspected, [address]Iwhpjmoh please perform a Date/Time: Treponemal 09.23.2021 7:13 AM specific CDT Transcribed screening assay. Date/Time: 09.23.2021 7:13 AM CDTElectronical ly Signed By: YASSINE Gregorio RENTERIAMD Saavedra [id number] on 09.23.2021 7:13 AM C [facility] RPR Path Interpretation 2021-09-23 12:13:35 Test Item Value Reference Interpretation Comments Range TMP RPR Path The Rapid Plasma Interpretation (test Reagin (RPR) code = 143212) assay is F LEUR negative. If a THIERNO RENTERIA MD - syphilis 85266Zaamkoao b y: infection is ELZAGABY RENTERIA MD - suspected, [address]46[address]Mhxvwxni please perform a Date/Time: Treponemal 09.23.2021 7:13 AM specific CDT Transcribed screening assay. Date/Time: 09.23.2021 7:13 AM CDTElectronical ly Signed By: YASSINE Gregorio RENTERIAMD Saavedra [id number] on 09.23.2021 7:13 AM C [facility] RPR Path Interpretation 2021-09-23 12:13:35 Test Item Value Reference Interpretation Comments Range TMP RPR Path The Rapid Plasma Interpretation (test Reagin (RPR) code = 454547) assay is F LEUR negative. If a THIERNO RENTERIA MD - syphilis 74659Zhfocpcz b y: infection is ELZAGABY RENTERIA MD - suspected, 85[address]Bdxupvrc please perform a Date/Time: Treponemal 09.23.2021 7:13 AM specific CDT Transcribed screening assay. Date/Time: 09.23.2021 7:13 AM CDTElectronical ly Signed By: MD Quentin CARO 11450 on 09.23.2021 7:13 AM C [facility] RPR Path Interpretation 2021-09-23 12:13:35 Test Item Value Reference Interpretation Comments Range TMP RPR Path The Rapid Plasma Interpretation (test Reagin (RPR) code = 756531) assay is F LEUR negative. If a THIERNO RENTERIA MD - syphilis 01680Ginkqpih b y: infection is ELZAGABY RENTERIA MD - suspected, [address]Lcybesgg please perform a Date/Time: Treponemal 09.23.2021 7:13 AM specific CDT Transcribed screening assay. Date/Time: 09.23.2021 7:13 AM CDTElectronical ly Signed By: MD Quentin CARO [id number] on 09.23.2021 7:13 AM C [facility] RPR Path Interpretation 2021-09-23 12:13:35 Test Item Value Reference Interpretation Comments Range TMP RPR Path The Rapid Plasma Interpretation (test Reagin (RPR) code = 273897) assay is F LEUR negative. If a MD Quentin KUMAR syphilis 70935Vfvpqrcs b y: infection is ELZA RENTERIA MD - suspected, 66[address]Vprgaxgy please perform a Date/Time: Treponemal 09.23.2021 7:13 AM specific CDT Transcribed screening assay. Date/Time: 09.23.2021 7:13 AM CDTElectronical ly Signed By: MD Quentin CARO [id number] on 05.29.2022 7:13 AM C [facility] Reagin (RPR) [Syphilis SCREENING]2021-09-23 04:31:30 Test Item Value Reference Range Interpretation Comments RPR Screening (test code = Non Reactive Non Reactive 594790) [facility] Reagin (RPR) [Syphilis SCREENING]2021-09-23 04:31:30 Test Item Value Reference Range Interpretation Comments RPR Screening (test code = Non Reactive Non Reactive 400571) [facility] Reagin (RPR) [Syphilis SCREENING]2021-09-23 04:31:30 Test Item Value Reference Range Interpretation Comments RPR Screening (test code = Non Reactive Non Reactive 942821) [facility] Reagin (RPR) [Syphilis SCREENING]2021-09-23 04:31:30 Test Item Value Reference Range Interpretation Comments RPR Screening (test code = Non Reactive Non Reactive 551221) [facility] Reagin (RPR) [Syphilis SCREENING]2021-09-23 04:31:30 Test Item Value Reference Range Interpretation Comments RPR Screening (test code = Non Reactive Non Reactive 892986) [facility] Reagin (RPR) [Syphilis SCREENING]2021-09-23 04:31:30 Test Item Value Reference Range Interpretation Comments RPR Screening (test code = Non Reactive Non Reactive 212718) [facility] Reagin (RPR) [Syphilis SCREENING]2021-09-23 04:31:30 Test Item Value Reference Range Interpretation Comments RPR Screening (test code = Non Reactive Non Reactive 950511) [facility] Reagin (RPR) [Syphilis SCREENING]2021-09-23 04:31:30 Test Item Value Reference Range Interpretation Comments RPR Screening (test code = Non Reactive Non Reactive 796713) [facility] Reagin (RPR) [Syphilis SCREENING]2021-09-23 04:31:30 Test Item Value Reference Range Interpretation Comments RPR Screening (test code = Non Reactive Non Reactive 001684) [facility] Center[facility] Virus RNA Detect/Quant 2021-09-23 00:05:34 Test Item Value Reference Range Interpretation Comments HepC RNA PCR Undetected Undetected IU/mL Result in l og IU/mL is Qnt-Daniel (test Undetected. code = 61843-5) -------ADDITIO NAL INFORMATION---- ----The quantif ication range of this a ssay is 15 to 100,000,000I U/mL (1.18 log to 8.00 log IU/mL). Testing was per formedusing the lucas HCV t est ([employer]with the c ziyad 6800 System. Test Pe rformed by:[place] [address]Lab Director: Jose L Nieto M.D. Ph. D.; CLIA# [id number] [facility] Virus RNA Detect/Quant 2021-09-23 00:05:34 Test Item Value Reference Range Interpretation Comments HepC RNA PCR Undetected Undetected IU/mL Result in l og IU/mL is Qnt-Daniel (test Undetected. code = 83883-4) -------ADDITIO NAL INFORMATION---- ----The quantif ication range of this a ssay is 15 to 100,000,000I U/mL (1.18 log to 8.00 log IU/mL). Testing was per formedusing the lucas HCV t est ([employer]with the c ziyad 6800 System. Test Pe rformed by:[address] [address]Lab Director: Jose L Nieto M.D. Ph. D.; CLIA# [id number] [facility] CenterHep[facility] C Virus RNA Detect/Quant 2021-09-23 00:05:34 Test Item Value Reference Range Interpretation Comments HepC RNA PCR Undetected Undetected IU/mL Result in l og IU/mL is Qnt-Sanchez (test Undetected. code = 61960-7) -------ADDITIO NAL INFORMATION---- ----The quantif ication range of this a ssay is 15 to 100,000,000I U/mL (1.18 log to 8.00 log IU/mL). Testing was per formedusing the lucas HCV t est ([employer]with the c ziyad 6800 System. Test Pe rformed by:[place] [address]Lab Director: Jose L Nieto M.D. Ph. D.; CLIA# [id number] [facility] Detect/Quant 2021-09-23 00:05:34 Test Item Value Reference Range Interpretation Comments HepC RNA PCR Undetected Undetected IU/mL Result in l og IU/mL is [facility] (test Undetected. code = 13002-9) -------ADDITIO NAL INFORMATION---- ----The quantif ication range of this a ssay is 15 to 100,000,000I U/mL (1.18 log to 8.00 log IU/mL). Testing was per formedusing the lucas HCV t est ([employer]with the c ziyad 6800 System. Test Pe rformed by:[address] [address]Lab Director: Jose L Nieto M.D. Ph. D.; CLIA# [id number] [facility] CenterPath[facility] Biopsy Interpretation 2021-09-22 21:43:34 Test Item Value Reference Range Interpretation Comments Addendum 1 (test code = [id number] 37) dLJCbp1hrt6MtlBUqzG LmTDnktDOpfeNfag99q KC8mR88TT6xSTOkUeZ6 QUYwhlQ9Xig9JGBuGIU nyGTmU237a0rbq6jxmk DotNM1aAtfIQCvnuobU qI3LLicROHewohzYCp0 VMiiMGOgtIL4YHPmoON dX5QhCCUePL4mjof5CD W8TObpYHFpRtB4HZIku BAsYOMlzNcaYOudw904 CZB6KgKjJSVmhsExcLv yvQ7uDhIxIVXTQZGfYZ bhfODqi9ukf0TlZ1fav OevrCO0NoUEaVHqFAEl BW78QOIcOE4kFJb4dAU he71dESNhsCqsBXMcDC Nyq0FgyKd1OETrTzDpx aEcdG3iuP9vSRGtxHXn mD42JD3mzOU8LJuwJIP ccGFyIFRoaXMgZmluZG bmOiNfy39ivQYhimG3o GUgcmVuZGVyZWQgZGlh D14nl5jhDlOKWJEekKJ rLN5kUEHgPTWskJAxzz nzSEBQACEqEGThsMa0t KL6EKN9UWKigxRtllLp dWVzdGluZyBGSVNIICB lb6ZxMRreKCSDEIVmoG FmjKBdapXlk1LgnJvvi kjbzX4iTtBoytMcw7H9 GPIseC7pDGPvHIhkBzN vNR93GBBzbgDbImefHR JccGFyIERyLiBTaGlta F1sFBGsEHfdjhOaXBGk RXksQAM0vHybAHPnn5S yVJ2sILMpygR0orPsl2 k3bGS8eDMuRLixM90mo 1wwYsosQCN6 Submitted Clinical History q4vrlYMzVVLob8abMGS (test code = 25016) mbGFuZzEwMzNcZnRuYm pcdWMxIHtccnRmMVxzc 7JrR4FsOtAhNBpreqJh XGRlZmxhbmcxMDMzXGZ 0bmJqXHVjMVxkZWZmMH mnJz4wsTJduCxhPaWtX RZvk1vfkwXVbghxxDt9 z3xeTVPoNlU4dMWzSVy yH0tiyeFaxEKjRWZaUP h7eM17CPFofR9abAUnQ GeyeqLuPqR3RLxlVRFs AsE1CKKokZHpSGVtB8o yZWQwXGdyZWVuMFxibH CoQAG8zEijb6Z6bVFtr GVldHtcZjBcZnMyMiBO q6YqBOu0sUzdM6PmVEH qNeF5aHDbJLDaHOyvSZ QeADGuetO8dD08CWlhe aJ1wNPqb9Tpx25bx451 rX5wiSRxHMY1MZJwPRG otBEiRMLzODQ3SOMzdD NpY4qbFPAsBT5llnweP IwuDTmwJPTjbZR5VWGg kHSrL9MwEWKbUOapCUN tkdf7YcSrTc2mcIQmfC fvNTaic8vep4xrnISmK fu3CJTjVhDrSnooMQqw y0Sza0cdBTClso6aCJX 7cMZdbGiwc4P8jYVmRD PxzDJmzrZjFETtJwE1P RqsAO8hrh53GTBzWKG8 nh0qqAEkjCfzqgIbkEG rWKjnC0LlRMScn446HH OvD7DaOMKeh8N2ffKnX aOzOSJvnTP3wqB5GSHk TYo0gCGncvW7jpOagOJ gY3xmsQ5mAGOaRR2yka zck2thWCppRQxfKSZhq VO9egJ6IZWvtHSkP0Py uW6uFNNqJIyfEHYumri 3HuTnPs0mqGZwqXwcSM xzYmtwYWdlXHBnbmNvb nRccGduZGVjXHBsYWlu XHBsYWluXGYwXGZzMjR maTjioIzorU5cArOfOv HrPTguJS6zHSPtY2gbk CDdKNXlIWLpY9puFwCf nY5djExyUIolipAcSCF hbmNlciBvZiBpbnRyYS 8yDaLkiWxlKNrih2SfY F7eECwHRkEvAL2zhKFw IERpdmVydGljdWxpdGl zIFtLNTcuOTJdXHBhci BGZXZlciBbUjUwLjldX XMxizIMBEX1UDadk3Kh ROC8WGQoXJ49HZYpUO9 fnM1gjKAeNFIyMLuMIS kuMDRdXHBsYWluXGYxX GZzMjJcbGFuZzEwMzNc aGljaFxmMVxkYmNoXGY jBJxrA9fgTkCpXaIbMl rcMYY6fC== Diagnosis (test code = 34) y6kteJMlLNVohDL3ZIT fRSNzd6zgk2PsgXPkyU JbHGwwvYKsvsBfwl37a HV5wP18NE1bNALcLfH7 YIEvdjS2Jaf6QWUgZIF sqEPwZ759d7hjg0zyxq FneUH8lUbcKRGpniyaR xL5TYolPJDfhxcaKPf1 DVumZSDqeZT7SZUdxTG dB2NpRLEhTA5ymzw1EP P3AGjeWHAvYyD3NLGua CJfALAtcPbuZWwtw733 GTV8ZdIxQRXvilBjcWp qzK5tJuBcNHSAaX3ztM Mfn7CmIZFkLFD9YBFwx GKrrMCkuUPrirY8zXfd nT3cB4IzE2CpGJZtOLK vcmUgbmVlZGxlIGJpb3 BzeTpccGFyXHBhclxsa XydTBqmbD69YmGaBHyO RlVTRSBMQVJHRSBCLUN FTEwgTFlNUEhPTUEsIE 2IEIGZUCpJZgeML0QrP 6AZK4iSHZTCJGVFTOTJ ID6UTMOWSR6YTKPjXa0 UVShIKRzJG9InAVrFBf 6XURREIHgIOUHrG74re WVudClccGFyXHBhcmRc cGFyfQ== Comment (test code = 9835) z9cljXScBXWtmFD1UYW cVWXrl2bqr2ZvdMSinB EtBWmenIRercXbne13u CW1qU08KY2gZNCkPgH8 MUMjkjL7Owh4BIFzTGW czDRrZ354a9ooj5mumu EanCS8YGSuOKT9EIyhM BJbHTNuGnc5LKI1M2av ZWQwXGdyZWVuMFxibHV lMDtccmVkMFxncmVlbj JxHwr4RCZ0PPw6VJLoz GVydzEyMjQwXHBhcGVy vXZ3QMChYX5ovihgBCq qQYllUVZzqrL2TSMlpK FxD4XvRZCxVG6ybnzjL LJ3AEgrAZAoJCA1LmXu IMRyi3Skunu2GeZsgQN yZFxwbGFpblxmczIwIF BlciBjbGluaWNhbCBub 3RlcywgdGhlIHBhdGll ygZfhWUkJMF6Ds31WPG sFQ7pAXDdKC6fk6n9bV 57bMupBwReeANmm7Tul GlblY5mgSSfLnWePCyu T48jlyV2CBY5kZ4rgXU rc4UpcUVuQKtogAboOP Nst39aloOxJNYlNQIzA NXyQRKvgK2tGRIPIUVn ztHnaD6zM3oeWsCmST8 rubB4lpG8LLHtyAYqxF T8jHQuqoFwdJFzazNye DXnJUNsDHwnlNztzQ91 o8q3IB9nmmGwh6GbrNu lIHNwbGVlbiBhbmQgYn Brz9gbveL1id6wLHEvq C2mALAxZFe4nYDqPNPy bj0eHJVimV2ymLZgIOW cofnrHiQfJFggoO3lm1 faErPaQQA8nW8elyKad R85GD9eYLMcKD1hrKLy STWlOcGnK50akxGoLM2 zXGb3eCWlJZ9zKSCko0 p3cLPhytFruXMiO9F4j pYrZFShXlFqYQ2jzdOo YnkgYSBkaWZmdXNlIG5 pf0JeEEO3mJNnmKnmqR iuqHYaaH8yyIt6nnK6J V2xHFnwFHe6mZRbn78t IGNlbGxzIGFyZSBsYXJ hECD0cCHdHWugliCemU xhciBudWNsZWFyIGNvb gWlpVGdRSQ6EWMiG3Az BHGxF6wzy13gwQlcLNK 6aFCbTBLhEYM6CF49RZ kokNOpk1BjNXK8jRBmi K3myDonoP0llLM2iYDk QMIzpvcoEUYyzr3owY0 odiZxZ1OgbEWjeNVgjP LmAJ8raGnqr6UaISOew TZwE1EtO2RzuZGln9dj lcYqcUw4nZVsCTCchZE mrPMysSRnYN5gxWodCD 3qHJ4uUTBqNFPhOYIbr 7TwjYYcy0HpT6w0j6Lo YXNtLiAgVGhlcmUgYXJ mXH97uSRie4JrPLYjz7 V2y1IpYtIzb2YoQUMcB V6zIVGzCAE1XFVyXIKo bAAsmAlsGKOeD6BeVPA bBDDiPIRdPEozOA3mVF NvbmZsdWVudCBuZWNyb 3Cttt7xFEBuywxfZITs NF4xoV3rhCvipL1adPZ taWNhbCBzdGFpbnMgb2 4jMlxjM8iiDBDqh6lqx uK1wFN2ZCMmCKZpKN1h bGFzdGljIGNlbGxzIGF xQXSue3OwwGg8VJEmk5 FoK6MkMFkuJqWOYDUuB PJCXC79ETPMFC0hI3uJ RjQsIEFORCBNWUMgKH4 3AWWhRtChH5QpyAOsgg UvYAHvUNzgOXPqK1Gho UTdEUUcHHRug9w1jVMg IGZvciBDRDMuICBDRDI lEOqqdQMpe0C7UOjfAM axA1zhqPkdxEKjfINeo Kguw2ChlYYxgCGqcWTa MXViKBWcjXRnEQ5tivk 0kDNoX3LsrWRlHNKjb7 3kb1OvSYDKeWRjS8rrN jcgcHJvbGlmZXJhdGlv biBpbmRleCBpcyBhcHB yn8mqpLK3MPg6PIhsSR EkDdWzDR2rjYBqwNtzE GNlbGxzLiBDRDEwIGJ5 PPndaKVhh0puh8TlK8c ycGmbcZF1TAefCTKegq RpbmcuXHBhclxwYXIgR moabeIodIZprBV4lrap MO8mbYxovCNshGRkKp7 qrLStWS1qCXVnpvX5ii OfhbNgj7UoA8fdBZ3td 6auo4FdTZ0fRJXozgCq weWlSr9yEUrhXKKfvUH nTILzw77wTUSui1p1bU ZlIGZvciBDRDEwIGFuZ LBsv98fwUspgKYqb1Xh mQXslGnuhZNeY2lhaV0 sKWQVyKTgb6Czy8YvDF Zly6HwHDHjxKFtscXpg 2G7NKOissFaADSifJis rnSwONSqVQ5pjFnqxTI fRFT2UUjgds1tpCWxGB OjqwnmPyUtXFukWR08B GEioCplZifnWLoiF4Oo REQwJGSlABbis5R2tJC nTo1xNAWpP8IdpRAxdW 2wwT6vWKTsy36vs6LbW CBvZiBsYXJnZSBjZWxs dpnnN21kw8pyhKBdnZB 2fRJuOFKfIdH3b1WgnL DbX5UjHx8eEOmnWEb9u WRce88cClGCzGZuiT6u qS7xyFixtv58eMWmCeB stD8aaD6ptlPaqSEcq0 D0NDDfF3HmgFjsBFcsF 9MjdWVyCUIsW0WocY3e lIdaCUhfbICfg4IkET8 sjHpuPDaaNTGuz9PnyH 8yLBCnAOScIOFBDU7bH GJfL29laOLsrTVfi9zp aWVsZHtcKlxmbGRpbnN 0IEhZUEVSTElOSyBodH VnoziuW1H7Hd0cSH0xK 4GbMn2agP9ylMdfA353 NaP1FIL6OId2Q621YDI jAIUpgGAalMf3gCvuFu BmPyrss9RnyPJuPoQhH ZC9AuNnOkhsOXffWlBy BRJ7vNfdDBziHFKihGX dRGETM7rce9J8UFuiga Zws6DgPXqwMWaTHTciV PQzmISuwnM1xZ5ednLs CFPrXQYdQK2aorXtiLL htLChCHS9wLWeMIOdOx wztXU1VHP4xY7fXCGgl xGdfSURQ6znJVpiRBPq bmQgXGkgQkNMNlxpMCA gcmVhcnJhbmdlbWVudH VpHCApJQCyNWUgyY9ff GVkIHVuZGVyIGRpZmZl muBaxLTse5WftdkqXT7 nRSTwZV5axQ6qehBjp2 W8AI0fjMQll9hdo6auO IIbb4MfsR5mXOYeGSZi q7JxpLUcQICmcdocFnL ccGFyfQ== Gross Description (test s6ywlRPpMFGgbHFTGGm code = [id number]) wMVxhbnNpXHNwbHRwZ3 UbrawsJYgoMT3tTB9oy AlejYQibVLvXK6HLZGz ZmYxXHBhcGVydzEyMjQ hBOBvqHZzcVX9CKMbBV 1hcmdsMTgwMFxtYXJnc bI0RFSusQYcB5CpVNDa LV5bzhvsYCG4ZHygwF0 qecVCUkvtLo7ybGXbyK tcZjFcZmNoYXJzZXQwX ORxkOipKGWbDUm6gU5C LqwoH57vk6I5Spj6TIA xVPYbZ0SkBM8zWOEvcI ImP30SHhjuJBW4OLPXQ zmaJCOrRW3Bz8msUAIc cWJxUZE8DMzyfPTdIPL lDEIsHYb4OHIkDOmztK BgRS3bmAtrMhkypAwef 2VjdCBcXGlkIDUxMDAy FObzGQZgCY9FWdFdNYD wHLC1JHDaQVj0UEi9GV 5DGrUaTPXjYLE5QwT9K JBeCLo6JCggGW2LTXXa HXzmIQx2TLEkMTXtGcj kPAy8MVEzWCjoSNNlkY FsIFxcZnMgMTAgXFxmY rBbYMVsEWgsvbV2ELYl YWluXGJcZnMyMCBBOlx mNCFfERhpbGijoW8sVZ EsD21yb6NPt9ZyFC8EH At4usUkvymhuE6dSABx xnJyCHtwoMPfW6pdWaj jZjFcZnMyMCBSZXRyb3 Firsd3l27yqI3zHRwiC lGmMOshIhZhJ4GjDDBS aTj8mXTmQZZbm2M6FPC 3cUj8NI35PQ3agD4mlG CaMALch8xjUADnx0C0L LLuo2CojxIiJC4toY8e JFTnx14lDM5gBNFoHRT vIDEuNyBjbSBpbiBsZW 9qrXzzTD5aWPXyJOUcv SBpbiBkaWFtZXRlciwg NK32eQOmuUxmj7JoyWw 0dGVkIGluIEExLiAgXH Nqn9EcZ9E4IPGuNDwri 7cyJFGwTXqls6DbBPcZ TFPCHQ1RPY2zsPC9OPt WS5JCX8jVuUZfQHJ6cS Z3EQMEQwrrhGR2vRI3d L94TQJxXXAcrUJhQFrv P468WVQ6NEGhHCgij6i wPIPaMRdem4TpGTsBBR XFOO7BEK6ovDG7TBlDU 0VORHwyMTAxNnwxfFVT EKO9NBoixSdxhBw7m9u jgBKqj2j3TEmfLXV2tZ xwbGFpblxsdHJjaFxmc oVkAZ5ANZOjyZQEXXI3 ON2xJQr3HLmuGDYwP3V iR0WcwvCbqZVbSJKrtf Ahn1odIHU1SMAapBFnk PBxInZnTnbaUMG9RFMy XZmqVH9OZHFjKXF0YBb avB81qBVzMV1DNOYaVV bmEOIiDRMdqeM7ASRtl SFoGUH5TP2cnQwxqOKh zjlwopX6GE2DrQ== Disclaimer (test code = q4qegZNiLCQaxIE0DRH 9839) lOSUuk7fgs3IzfZCqrG ZrQEhzeLItarMoea81g AS1xX32OT3xMGAhDuD5 UVXipcU3Wph0HATpBBX kdMJmA449e8asb4veuo HirTC0GIXpTQHeP7FgY Y5rDQConUIlS64eqVBa CRU3GQIxZTEmnLJlBVP xGTE4CXNbjOKfO6ybLA MsWK3ksuurTShwTHbcP TDjhNW0YTPohLIbR1Dh KHDeQCqwVHPlxzg9JvU qLr7gdERseXwrMFslH5 pjdB0sNyD7VGbhD0cee A0vFIp8ZRalYNHxhYT7 rdU2WKCklFCvY4MdpL9 bBYSkMI9dvqs4h7svQY P3JAgoETEmLjB3ykP0M DBccGFyZFxwbGFpblxm ttS6PQOzKOPiJ16xJDK 5LLY1rtWtRGNgrvPtCJ SvOTXnYN0lnGLwMTTbA VMwIQ5qQDG9FXragKWz OEOmDJYcJFYid1SoVR7 aKPQjbNHmMMN2VHKnk4 IwE0EfFPR3PTVmiN0jB CBieSBVVCBNRCBBbmRl dfQqleNDJEYfg9leS2c pWK8nMHxtTj9yVYUurq kgTWVkaWNpbmUuIFRoZ KNgRWEdz0CxAVgndzGf qk02TZVaPI9sh7WbM6e qcCXrqOs0CJZaFYKdKJ Rzi4MdHVCcjm86UOJjW rwehAghAKFePa0fIq1y XGAfywAuIHE9BhKVHY7 sruitmKWrgZxemc1oTQ YgYXBwbGljYWJsZSwgY 08ufMOiaNNth5QpTMKf OIJmXKovFWHmqtLhw9f st3IgLBJiqMSfkEFpJT CeJXAmAMB9jTRqyGheU lxwYXIgTWVkaWNhbCBu SCDuc3LagSvcvkAolQw kjZGunMghjlHxv8EbmN jbYSfvkHWng1oqo5YfF 1ldrWffMEpst9HcvN1w ACSuRXRaw1TyZUVoXMK cCVVnmY6aRBOjmRYda4 5dxV9eaVndOMGtw0ycW 7c9w26hoJLoGiZocC80 ro1nvXBnm2X4cKmzZOI 1kVSuORQvNc7oPJHwGS BtPST5JXIzVVjof3Ldn bMih6WbnLFqICJjnmTf wrTzg2hwa7dzEst+IFR uESFvtF85NJM9uL2pBP RckMHpk4H6FUsfnyPyq sCryv36XDQdPATdvNos cwFzjbXcXZ88IERazgR qq6QlVOkhLDOaYKCcXO E8sWSzfiRkDII3jXVqc mcgZXZhbHVhdGlvbiBp gcU2qGkyBCIpWQCkbIB uLlxwYXJ9 [facility] Interpretation 2021-09-22 21:43:34 Test Item Value Reference Range Interpretation Comments Addendum 1 (test code = n3eylNUtCQKopWM3MLK 37) zTNCkg2jku7DbkEQnzN KzWZterDKtxfUbew59a ZD2tC40OA3fSEUaHoF0 YSDaxsR6Pph2XLDfZTA liZEfB208j0euo4byrt EdpLF5aHpoLFNsclfqE dS8VYjhHUMwjnovIGo3 IXzoJJDukYU6DYDugJG bH6EdFXYbYB4xzho9UX N1COzxEIKxPcN3XZZyy ERtAGXclHdlWAsle431 MHZ2GbJnJTEkkkNijEd scV0pDgLuWVKDKRAsBW zqxIGco7rhu8QrM6qao PmpmLO0YqGOfGMkZPNd JN09YNHsCA6yQAk8mSR ob14vNPUqiOutPHTvGI Rmx9KpcZl0CIRzOqBgx uUkgX4oaR5qXFCwhEBp gR15VM8xdWW1VFlyRGV ccGFyIFRoaXMgZmluZG fiOmRac49jqHQlfvY3a GUgcmVuZGVyZWQgZGlh F57vb2osRgURGATnyNP lGI8dRVAjRYZppCHfyx wyAHSDIVXrMQKpgKt1i RF1XHA2VHUgwyUtpxXu dWVzdGluZyBGSVNIICB zz6KpZXdnCFIYGVHoyN TahPXxqdPgs2WqiGbii dmkoE1uVmCckwAzc6P8 FZYmlA2aSYHfWFkjKyE fEY56JZYyzxEdXuzjYT JccGFyIERyLiBTaGlta Z0qYBEpWXzxnhDjDZFa XCkhQWO2bEnqSCYaa4N kIB3cDTYvhgH3nfJwu0 z4lQM3iBRfFDayN55ei 5diRxhtKHN9 Submitted Clinical History r5metNTqDUSsv7nwDDO (test code = [id number]) mbGFuZzEwMzNcZnRuYm pcdWMxIHtccnRmMVxzc 4LoP5YdDkElDEmmtkQx XGRlZmxhbmcxMDMzXGZ 0bmJqXHVjMVxkZWZmMH gbGz1oiDZkaDghRcDeS BXih6enfpIHjerjeHp4 i7swJREjAcM8oYPhIYs bM3tbdzVovBFeFEAqST z1oW21QVKgiQ3boMTlA FvbdkVbYrN6CIkmDMAl XdL4ZQNllHEySBRrQ8m yZWQwXGdyZWVuMFxibH AiPTJ3qFebm0R0oIPls GVldHtcZjBcZnMyMiBO u7NeAOx1gGszJ2LhGRC pOqF5kQAlAGHcMBtjTX FlLQFvvfA0sO39OGuab xU6dIArr5Dgf65hi559 aU5orBHlYSJ8VWXwCIF esOUzPNNbDRC6YIDaoV YiJ0shLEDzYV4bixyzD QkcHFkyXYUnmWF2LSQe lIZaN0IcBGAsNBeqRVG pvon2LlPtEh8gtFClhA owNOrbm1biq4vahPVcF ea2MYLtYsTgIhplJSnn k2Wgb9aiWJXsdm9uXAE 3bUMcfNykc7P7kEBsOL RmkTSktkWpUVFvUmQ4D KolIZ2vvg17EXTsUPC7 vk0ufDDyjOnfmwSfrED eCPmdI5XkYGPnh715OO UwK7EoJPBgk8Y3hlZgE uHwKLTqxHV7sxG6EQOy NXt3uSRwuoU5qhHwkVZ zG9efaG7vAPXfQL2vfi gfo0qyGDhoALjdCWFkd MU7cuB9OFTfnOMtT1Ff dI9mKWZeMYbsPQNxehs 7JvTkGp6miMZsjKfjBM xzYmtwYWdlXHBnbmNvb nRccGduZGVjXHBsYWlu XHBsYWluXGYwXGZzMjR uxPsutXfkoH7uUiRxGu BkYMzgAA7vAOYhW2sod BEnRNEtWQMuX5hcUuWc oG6boYlgMOiyxgKcABI hbmNlciBvZiBpbnRyYS 2aWqKthIceBDryx3CsZ K0lUWcXFzMyQI5jeYLj IERpdmVydGljdWxpdGl zIFtLNTcuOTJdXHBhci BGZXZlciBbUjUwLjldX RVnboUPDYJ7FHlkr9Rq TIT7IEHuRC19TNGqLC0 yyG5eaGQdIOIfLQeXOB kuMDRdXHBsYWluXGYxX GZzMjJcbGFuZzEwMzNc aGljaFxmMVxkYmNoXGY qNNsnX0mgViDwEbXyRt dkIXB4yD== Diagnosis (test code = 34) b5qmlYVjJVObaVK9PLF kXWUvz1nek6ZulNAnjI HpPOvhwGQpxqDhtu68g TQ8hF09NZ5dKZCdUkF8 TFZyqaJ3Rqs3UKSxPSV reKFhD417e3mtv2nkag XsyGV6mPlqHDVldyvcQ aI4WKvyQNYtpueuPGn1 KWbdTBVfxGZ4MFIjjAC sZ3TkXVRsND4ydav9PB W7VWueCHAlDeU2UQArk YPzOVGwuNhrZYlij282 IRK7TcGfSTDcmuZgkEa cpG5zMdQzPOOEkB8ioO Tmy7YcRIYiXFK8GFMca SUxqAMluVJqnuV2xBgv rN6pJ4GdS6WlQFSaXPR vcmUgbmVlZGxlIGJpb3 BzeTpccGFyXHBhclxsa NnqDVatfZ25CaAfDQoA RlVTRSBMQVJHRSBCLUN FTEwgTFlNUEhPTUEsIE 8ZVLPMXZeEPxcCD8WwY 5HSF8gZEKQNOWSFZNRQ HC8OCCXFIR0OOGEdQn7 ABUgVGIpFR4ZaAElAQi 6ZMBNLGQpOKHPtX24dl WVudClccGFyXHBhcmRc cGFyfQ== Comment (test code = 9835) u8wsjUTyPCImuCQ6TDT iYOUhf0oxz0RyzCZiyE KmJQvlzQKarpWjys01p SN9nS77ND0gHRRoCsJ4 MRLldeV8Efh2MCCnSTG tkZLkE098b9gtb1akfk GfaNP0GLRaGEW4GBbxX LSvRZNdNaa6ZJO9C5rv ZWQwXGdyZWVuMFxibHV lMDtccmVkMFxncmVlbj AvUhx8JOW9WKv5ZRCbe GVydzEyMjQwXHBhcGVy zKW3PWMmYZ7rdeltMPc vSSnpIEJjevG6HTUuiU UvU2PnBIVtSX7deayiR AV6VWtpTYBlSPO7WrWv PYTxt5Gedto2SoMbhMJ yZFxwbGFpblxmczIwIF BlciBjbGluaWNhbCBub 3RlcywgdGhlIHBhdGll tkHqdGVyWQB4Ey61LZI hJN9wVGEnBK1wj3l8hA 74wXotSpGmbUWly5Rfl RljzC8wwIRySnEjTMan G78fboL7BQS6uI5awEB gp0OodFYsLWtjnRxjQM Ajs29rdbNvDTJoXPSiI HCjYTHhrS6pJKQRYSQz udEciW4qC9xgAsJpWB0 cdvY6ppF4DRUqkBAbwO U9tMXovvPuxUVyxzVqw IAzIAWfYBwzuIlcqJ74 m3a1OL2qfvWvw7QrlKf lIHNwbGVlbiBhbmQgYn Twq9iayuD9ht3tMBGlz G7zZJMiBIl3iVZcNLHz eb2sODTvjI1nkUDwACH tfkupSgZsZPyekG4ue9 hjZgNjJZQ8fA9ykiSvg W12AT3oSTCmXV2xdDSs BZTcZpTsF86lhoTkLG8 oWZd3oKOiGL0kLQTab5 e5hUYcqzDpdFMzT2A1t rSuAAEjFkTiNF5gwiRj YnkgYSBkaWZmdXNlIG5 jf0UyGCU1aXDpiZuzmB ixiROfmT7gfMd0ieY2X W4iYUqwVBk2wBZuo61h IGNlbGxzIGFyZSBsYXJ sDLN7nJIuCMawysPsgT xhciBudWNsZWFyIGNvb hOvvQCyPGC7IRGdZ1Jq FTUeR2ivu78zeNhePIB 6nABnHHRnLFW0BL41CC pjdLBpc6CgLRG4jXXob Z4ixPmacO2otFN9gTTr FDLkiesoGVOmlc4tpJ4 gqvVsQ1IezSLloKMavC UnJI0rtAtod7TjETTsa SPwW6TsK6UwdUXzi3sk kiXoxRg4wUXmGGCkvIU ghYRilKXuEP6avOgbML 6bWR0jAAFvWQYhAKEhb 4FvnFOil6NjM7p4u0Vy YXNtLiAgVGhlcmUgYXJ iOQ58wCMio6WiEOEqc7 C4z6SpBcRss9JhWOKwC V1bOYJzNMQ0VPSvGBPm aGUcpVllSFDjX6WtDFY aCKHePJCdYIejPZ4uDH NvbmZsdWVudCBuZWNyb 6Tcva1oSKDhivwxKFCu GZ0edJ4iqSuqkL3mmZK taWNhbCBzdGFpbnMgb2 3eKsrmR2uhFUKkb4gpt pS1hIR8MCDmIFAeHM5u bGFzdGljIGNlbGxzIGF lTDIfh5SurEv8LBWax3 PoI6HvNMyvPuMRESDxU ZGUPM19RSZCTZ5cF2uN RjQsIEFORCBNWUMgKH4 4QLPgAcSyN7CmuMJdif QhATThNVqwENXcY0Ncg QIwDAThWDXmi1b0vTXf IGZvciBDRDMuICBDRDI lCWpceKYjt6Q1IHbiPL fbV2pudRszkPVdvNWjc Acvs8VhoQUxaDTslXMl XOYsDAQgyNWdIB1alax 1qAKqK1NotDXbAWTlu4 4ol3UhLARZvANbI1bdF jcgcHJvbGlmZXJhdGlv biBpbmRleCBpcyBhcHB zh8mdwJA2PXk0JBvsIL AfIcXtQR5swLTusYgkR GNlbGxzLiBDRDEwIGJ5 YEgokTVao4pur0QqR8k aaUvsoFL5WCifUJNhxj RpbmcuXHBhclxwYXIgR lxtpwEqoSKrzCO4vpsk YN7ttJundSUewJQkHr7 xsMYeTU1qQCWlasD8bm AbyvQzh7RuP8iwIO3uh 8swa7FvAS3pGXWbwbTw vmOiHu1nSHztPHMivCP pMYBsv71pVEIam1r8dC ZlIGZvciBDRDEwIGFuZ PPly52syLdwzLPvz2Fb cQZgtGcchKJtH5hatF8 aLSKLhVEtk3Ofs1KxXU Oui3GsXEMzxFGgcrUgy 1V0IRUuaxWvGJNcnZdr xaYfFCHwED1mbUlhkBT kRYU2ZZojsw7qnEYsNA YijdvdUzYpHEsmZW78G WVtnRxkJnwyJLlmT4Qh SFLnNXRvJTsyb6B7bWA xCo8fEUGgD8ImiQAvhQ 3yoE3iLJTyd31qk0WsR CBvZiBsYXJnZSBjZWxs oicfU46ww3estHYdxNI 1uXZlQPUcVoV0q6HwvK GsE4XxBt6aPZkaMEy0p LDwz42tGaGEkOGhsY0v cF0evGcfxw69wCNzTiL boQ4tfP4ipsLiwAElq6 X3TJZeO9FckIlrNDwtM 4CfxTOfKMHtB9ZtoS8y mPbqERjxiVBpu5WlSN8 qfSkdGKmbEUZda3HycK 4xTJGhHCHePFCREV3lZ DFbC72liSBukHIcj3id aWVsZHtcKlxmbGRpbnN 0IEhZUEVSTElOSyBodH SqstyqB4H0Of8iTW7bD 3SbZs4kvD9miWdzE087 OgQ3UEY3UWp8D754QVQ fHGUggVDqbBo0xKyrDc QlHklum4UuuAVbGkVqJ AP6OjSbPeufFWtsAsXi UIB2fAqrJEgtSFMzgXU lWBSBB1poj6N6WRoowf Wce0RpWLeuKBrNQYtuY GOgsXDxtoZ7nL9usxDn HTEdMWPgFF7igaDrjPI fnTQtMFS2sHMrNSBoMm zwtSE8YOB5yO5uIKLau uWglUKKB1tuJDeuIBHl bmQgXGkgQkNMNlxpMCA gcmVhcnJhbmdlbWVudH BdPWLzXFGjOATgoB4wk GVkIHVuZGVyIGRpZmZl vjEyuRSbe0BcwmbrFB2 fFDQrWB3hsK2xcbUnt7 F3UR4ygIFik6lax1rlJ ROzx9UmoV3yTWRrXRUy t6PtiZIcMPBdhuipQnV ccGFyfQ== Gross Description (test z5yqkVBrQEEdjDIEALz code = [id number]) wMVxhbnNpXHNwbHRwZ3 UtadwlRJnkYO8tNG8dn YattPCjhFTiQG2GYLVd ZmYxXHBhcGVydzEyMjQ zBKPtrENulUB2TXMtVG 1hcmdsMTgwMFxtYXJnc aS7VQDbiFHxE9XtJZGt IT2lnofzNHN4DRphtI6 bpjNYIvwjGe7yhHRjrM tcZjFcZmNoYXJzZXQwX YRsuCblEYGuZNg2vR9Y UiwfP97ur6P1Hhs4LFY vLYMwC2NoFF8gWEAffT XxZ54OAzabNCH9LFYJQ lrzESAdAU0Pc7jcAUKo xBSvGXP2PZcoePErRCB xCBLqMEq2VYUqCQiiwR SjKL0epFgrNeusxYbbc 2VjdCBcXGlkIDUxMDAy VNquGQOzZQ2IYmHfQBS uUIL9UECwCAh0BEa2IP 4KIbYnHSRbODJ3YyE4L QMuIQb4ELcuVA2HBCQl KHiiTNk8ZOCyMUPdSaa hSQb2EANsKXhvUNEyfG FsIFxcZnMgMTAgXFxmY zDsOGQrQEjhhiB1NJGu YWluXGJcZnMyMCBBOlx cZEIuLNqftCnbuW3bCO PnX41vy0JBn3IzDF0WP Ee0yqFvdlzdcW4vRCLk yvFbOEwmrDHhF9xlNzm jZjFcZnMyMCBSZXRyb3 Zsvuc0c41afT4jBNpaL zRaOSfnWpBmS0TbBTDB pKm0aCTsELUuk5Z7SWF 4cTv7EX34FE2zcU4apA RrRGFaz0rjJKJfh2V6E KXac1UgdfEjZY0mwH9t PKJqm80oGB8uGWWsPLU vIDEuNyBjbSBpbiBsZW 4cfUhtXG0gGCNtEDLlx SBpbiBkaWFtZXRlciwg OB83tCEjrEwaq5BefWl 0dGVkIGluIEExLiAgXH Ecg6LcN1J6NLWuEKmah 7kaBACxOOjru1NoMJkY WQDHKO4PXW5bnYV5IHr HL5PUL7aNgSCmGXZ5vJ T7ENNYOoffnJC4xIK6v B47NMYoPILlgUXjIUrq K199JWD3MASbBEbvg2h oCDCbMKwun4HjZHvLAA MEDC7LAL7chTG2NJsJA 0VORHwyMTAxNnwxfFVT EYS8NFohbBlxmHb2a5n kgXJzr2n0BPmdDDP5qQ xwbGFpblxsdHJjaFxmc sRnGU6EGSLtlTZMTQD6 DT4uYZs2COvgSXKkX9N tD2GcspZtzBVtJEXzwu Idb1xzRIA2RBIuqDQuf CZuFqSnJxgaWRH4YRPk XGsoXZ2COROxAWF8BIh vaP75oEZcQT0UKDKaZE hzOPYwOPUgiuV6BXSlr LDdSFL5CT7htPnnjUOb ztltfnV5SG2UqL== Disclaimer (test code = p2extFZpBTJpzQW2FEA 9800) eHRYoc8dko6MixVCufP RbSGftwBLbozQsnq03v CL2nI79GD6oMAIbSbW1 AGDpkoK4Qxe4BISwCVI ksBUdP117f6fcq5dksa CuxXS5KLUbNFVwE8WmU L8vCQEicFNvX02xvMAu FAA1WPAuPHEpeCWhUQS hKEW0HQAldCAyL8ggDI JgVB1xicipFTxqFQqtS OWheWI3RMKxfEBqE3Xq BLSqHPuwHLNlhbp2UeX bGm6aaTZirNcmNMxrI6 osaC6qKuC4PVitA0ssa B9dDLv7RGxpLCPboNH2 sfT9OAVfhNPoO2CnrU5 rOKYtEV8nkxl5j5wpNB G2AOauFBMiJjB9xaD2B DBccGFyZFxwbGFpblxm qwK6RHGrFJGhE74wFTU 5FEZ9omGhVBPhheXpQI CdAIIoRW8zpDDtQYLgT WSiZF0oAKE8OBagqBAu NZMgXRZiMQXml7KsCM6 xHTZgoVNkKXK3GTNte8 PpF2YqJRZ8BFWgbW0tR CBieSBVVCBNRCBBbmRl qfViorUIRKWon1ciB0d rZZ4lQHnoYt3zDAAwbb kgTWVkaWNpbmUuIFRoZ JNzOACgf5NaDCtfwnYy qe44FRHsRA5ie5HoG6m abWZabMs8UDCjVAFeNI Cck9NgFYBhpd70CHLiB ewqoAjeEWHvYw2vEd2r WOZridJxSEQ7OpFVTC5 cdmjrkAIbfVxhfs2uZN YgYXBwbGljYWJsZSwgY 35heJLfbGCoy0ElVQKk WDKnXXskYEZelgYji3e wl1YaUUGefBNnpTGkAJ HnBXDuBIP3nRLfjSnyL lxwYXIgTWVkaWNhbCBu XMEta6DowYvzqpDtyWy kbLXsqCqlheVsx5XncW rpBTbjaDOxb4fdo3HnU 6icpYgzMLrob7OcoW6b UFEuKHXui4LxDOUwFCK iSLWxcT5iHRZjmQHyl7 6ccO1gfPozPFUlh0reU 7b6w80gjCMzXoNdpV43 gk2rxARpz9C6kJfnPFR 3tTEwUMRnNt2bRRLoLS ClCPK8MZPlTDslw0Kva tRpz7NuaEOkVPRefcZv jmYnu6rsy1evTcc+IFR zDXLqfI25SEJ2zD0xEW CybKRyw7O0OYjalrNdh jFuou63HZYtCXNbnSyz ryLwheKvFV14YUMxfvP up5RsMUipGHOuRRAsOJ F3bECzlfBbIVS1mPDcb mcgZXZhbHVhdGlvbiBp hoF3xLxdYGVkOHJsgOL uLlxwYXJ9 [facility] 2021-09-22 21:43:34 Test Item Value Reference Range Interpretation Comments Addendum 1 (test code = i7ageRHwKPHkcKM0FYN 37) eMADbv5uvv1BumDEctH RiREcriXAhojFdic10h IS9iV16RR3wMOOyRpE4 WSDenfS3Bvp1ROJqFSB omZSdM661s5afm7fojc HggJB4nDcaUJZpvumcQ uL8OTzzYCYjejogAIb0 FIyjLIVenXU8ZTZdrKX nY5SnUDUsTE8vyis9UJ V3IApxAFTwQaD8WFLly QUfGXZqfNzjGSufu880 UZA6DkUcJXPxtnNgmCj ksP8yFaElBKHXRPSwHB wpjXIac0sjw9DlE2naj TmjlUY5KvBFiNAjHBKm YW41ZSHmMD6oUAj0rRP ch35gNWRgsFapGCKeWA Evg4IueQt9NHAjEoTri xFjnU1wnJ5cRZKikWIe nK95JY7ziSU6LAtvHQN ccGFyIFRoaXMgZmluZG ekIwAzp83kkIUgmzY5r GUgcmVuZGVyZWQgZGlh J84zp8npCbRNHIYroFQ cAW4uJJRuVJYaoKZzeg xfBXGBVUDoFUXozYz8j GY2WPU4JCUrmwDdmxVn dWVzdGluZyBGSVNIICB uj1YyFTzdFMYOHASqpJ YuiYKwclVug5PemLtip qejaQ3wJhHgozSva3L8 ICUqvJ3vKHYeBGlcFnB nIE25SNThqyPoFyxxNO JccGFyIERyLiBTaGlta G1bEVFlEBgfnwVfKXIg YAisVVQ6iWpdOMZnd0K pYY4aZUVayzL4kjBko9 e4qTJ4oNJgXXhiI05tw 5xvMznnECR5 Submitted Clinical History u1vjnFZyACWyv7eiWOV (test code = 15087) mbGFuZzEwMzNcZnRuYm pcdWMxIHtccnRmMVxzc 9HzA0XgMaEoBFvsijFv XGRlZmxhbmcxMDMzXGZ 0bmJqXHVjMVxkZWZmMH eeKo7ixSTzcKnoNpXsO LRgd0kqhcBGvgvaqJu5 i4lxGAWnLfV8zXNfCPp dE8eoerYouJBxIQNlKB n3uP58CJXdiQ5tbWZjW ArzudVoPsN4NDpeCIAv XlN8KTUegBJcBPDoO3u yZWQwXGdyZWVuMFxibH WrWBU4mXmdc4C4lJNmc GVldHtcZjBcZnMyMiBO u6AqADh0iAzdO6MbVPO iVgN7vZLpHHPcQUwuGC DnRWUzwdD4jD12TRlga rW4bYZqv0Vaw54ov218 zS3frNPcJGU2HZRsAKM dlKTkEHXqFQK1ILWlhI KjH1ljMRVxHG5agacnO PfkDOlrTDCkcRF6IRHk tWJmF5IeMZJuZYrmLCZ dedu7YpTeEs0ovDMwsP pjADevh4jpt5wdwLDhC wm9JOWwZsRuFirpHCue g8Ety3apUZXmeo5iUKP 0mDNqiYskp2M7pAPlIS RovUVeneDmGIEzQqZ6M VmwEE2sap39OGIrGPG9 tt4cpBVfrZjyyaZwhNH qHFpdK9HnMJVwm003EI AxB7ZrIZIcd7X0vhFlI qFtFMEgwXM7wyD9MSWx GMl9lGThdiA2qhFtaFT dX0aipD9kACLqTU7zhb osk3opIMtyORsxDPHbu CC9yiY7TYWkfKYyQ7Yk zI2sNIAnZEttKMCjwud 5XnJwNq7gbVQpqUsrCU xzYmtwYWdlXHBnbmNvb nRccGduZGVjXHBsYWlu XHBsYWluXGYwXGZzMjR iqTbdpZmdjF5yZzYrCy CzEVtdXK7hXCBtA9zab KEbZUYlPIRkM4fcRcCh aC2bxZvjPHjoojKhQWL hbmNlciBvZiBpbnRyYS 7iRfMhdRbjHXbjc9RiI P7wXAjTNpRkTW5tuLKr IERpdmVydGljdWxpdGl zIFtLNTcuOTJdXHBhci BGZXZlciBbUjUwLjldX LLxjlYQPQH8IYfjh7Co KRN8UJBmMQ36PSDiHK2 lyG0ahDNbMKFoQBiRZJ kuMDRdXHBsYWluXGYxX GZzMjJcbGFuZzEwMzNc aGljaFxmMVxkYmNoXGY kIYtuM0pxGuMxAyViPz ftUAM2vX== Diagnosis (test code = 34) u9mesQEiJNDsfFH3KVF dMSYtm9bhf7GpzSNgxQ AaHTwfzDAzeyAnmh61i OV7kY03IK0jYBMsPgA5 KYVgqnN8Ksd2KFVgPAJ kaITgA251u3jzo9izym VpeVT4gJxwAWQquimpW fP4YDanHNBqcixaNEv4 BOeeILXxwRG0IHMvdAI tA9VhVSVvRW5imec2FN E1ZDwmUCHfLbD7AXFqa DQzGUVqdDssAPoco764 ZBD2EuSdPHOairDgpIz gyH5rAoPfNTIAkC6ggD Vqg9TjAUQjGLA4WOVrr WAsqYVwdECalpB6gAbk rM8aA5EwT6ZnGNGoJDN vcmUgbmVlZGxlIGJpb3 BzeTpccGFyXHBhclxsa QvsTFhmmV63TtYdWLsJ RlVTRSBMQVJHRSBCLUN FTEwgTFlNUEhPTUEsIE 8VKJWPFDrMYidHQ9OjT 6CHY0mPBMOLIQMVPOVS GT3EBOJXWF2CFCEhWo3 ZKGgHOGaNZ6QpCWrDBg 2DUPPMXGuOMXXnP60nz WVudClccGFyXHBhcmRc cGFyfQ== Comment (test code = 9835) n4imsBRpFOJrvBM9GTC zFCFad7xga9RpaFAviM EuUNdfaNDxgtGygf09d OJ1gO54CL6aXXArRoO1 DGJphnZ5Wwd4OFHsGUC boFXaZ336g8qvh1hzht KneQV4QKRuPUF2QYgtH MCmRKZqPtj5ICR3H1bb ZWQwXGdyZWVuMFxibHV lMDtccmVkMFxncmVlbj ZlRuf6VPR6LAg1CDZro GVydzEyMjQwXHBhcGVy gXX3THGkSH3riuuaLQn gFQrjYTFvvzU9TIExdS GfF7DuUMGcSF8pxawbK MC2GDibPSVnBPZ6UzAz ZDYbd5Pmofl1DsXhmOV yZFxwbGFpblxmczIwIF BlciBjbGluaWNhbCBub 3RlcywgdGhlIHBhdGll eiGlbJWeQCG3Ln36BSF kDE4dHUAxTZ2an0m4gY 71iHkgKwEakNIfz8Bpn KfigH7mrYOqHnQgHUis V37gsgG4IEW5qA9tzAW ki8GhmKUhNMiavYmiLF Qdb18eoyYiDVEeWLMzD DCtNAIgrY9eKKAJCSXr zqEgrA6gY3xaVcYaCL7 sqjI5lbY6RRAsxHPhqM L4qNTwzkBenZAzitFtx CJdTEGlFZcqtDosrC23 b8n0BC3lwtNif5JneAd lIHNwbGVlbiBhbmQgYn Xgc6hpslF7qo2lKBFwf B9xCTUtFAd1wTCxNFDp xq1qNKGzuL9ayQXeKFM pofxtUvQaRJvpvX4jf7 euSeZzDMH2eO3sxuWie J77PH5xZRCrOH5xqLNy XRDjArAfE67dcyFqRN7 aAXr8xKSsBX9bXVWju4 n9sQWzfpSoaPJeG3C9j sWoEDAtFmZbAZ2vjkMv YnkgYSBkaWZmdXNlIG5 yi0BdJRC0xDDadRvwzW swjSRzjT9lwSb1poD0X F3cNSsvTRx1bYGed50b IGNlbGxzIGFyZSBsYXJ bHTZ1aISeIKcibyJboP xhciBudWNsZWFyIGNvb gLtsCEsTDY1CYPeW8Ez XOZwJ0esx91psJrfOGF 4lONjJREeIZZ7AL01EK cqaBXof8TbESY0rYQyz T4pbXjkmP9bzLS2uVVx TATkumcyGJHyni3tgS8 tmzMoM4NgzDHpbLBgpG UjQP6nbMlnv7LkOBFtq BFvM4RzT0WohGNls3xc brScrAl5jESlZNVasNO vwXHfjGZyRD7ydJgqXU 8cSD2gJUMvCQYsIPFjh 9IhbAUnd0IpE1w3i1Gt YXNtLiAgVGhlcmUgYXJ uHN53nHUjc6PaYWBwh4 P0g0UhFpArv6HkVKHyI E6eLHPgIBZ3HPUhGZZt oWUdfYnyMYBgK4TrNQN lGRJkUKVjJGykVZ3gAI NvbmZsdWVudCBuZWNyb 2Paim4tNRHbewswFZXn QR8srA8mvIxnbU6dyKB taWNhbCBzdGFpbnMgb2 9cJremB6kaMFYsp1srb sA7fBK6XZZuHGNoZK2g bGFzdGljIGNlbGxzIGF zIDBst6IrnAm6ICXhk5 RcO0DoYJegBbUBXKRaL HRAAU39IFTWBN3rH8eX RjQsIEFORCBNWUMgKH4 2NYNuEgOlN0DecCDseg PuZTZkVNmpBDQqY2Lyg DPgILVxFGFfg5j7iUMl IGZvciBDRDMuICBDRDI zZCrqrIQiz9C6PWbpDB inH1ntuEfqwYQfgHPiu Zean1UqfYBjdCHntYOd OXUkGKTggPIxJY0cxwp 5fSAjD7QtyEFxGHQuw4 0ca6ExVPKTrOZxC4qhH jcgcHJvbGlmZXJhdGlv biBpbmRleCBpcyBhcHB ng3hmgEM5ZEu5CWiiQC YgUfHaSM6qrAXmyTpcO GNlbGxzLiBDRDEwIGJ5 TLmblUTdd4lrr1IpH6w ysOlkxHJ3APdaHCYpyc RpbmcuXHBhclxwYXIgR ndbjwXvyLPmuHQ9rpjz XT6gwUxjtMJejHWnUy7 mmCMoPX3kNJShdoJ2ho FhrzYrk4PmD7bzKC9oc 2tko2NiTQ6xMZWceqUd ucAuPd5rYCnuJROvnZC mUPIhg18zFOKrw2z3gL ZlIGZvciBDRDEwIGFuZ TIek86ytYvopQHed8Pj qTErqUgmcXMsY2cseS9 hEUOSqNLdh1Ewp6NvVJ Nkz8GqTNGywRCsyjJqp 0O3JEKauiNzFYFhcDml xcEpXMFfWS2aqTinvQN pHDT8ENglup9cgJOmUY SbbbbrNcMoSUmrZC44F YSfdQxkMdpkCYsxP2Cx CGOeYGPeUDoqu5H5yFO gFl8zJNCoC9OwdZCzuC 2clQ1jBWLfc84rm9TbB CBvZiBsYXJnZSBjZWxs mgbhE88ft2wtrZSvpHO 7hNMcVYTzRbR5o9AtqW BvV8JoGj5jNOcvXMz3g URql47jRoVUpGWomD7g aL7gvRgbfs13hPEsRqB nrN5atG2luaJcsRFpt4 L2YRAgT4LiaEsoUSdiF 7DvgKXfLFKtE3PpsS8v nPynDJvitMVgp3DkCS7 frFwwSJixHDFpy5DjsY 5kJRYyYMOkGFVSZJ2yV TAzS74zlLFkdQZyf5lg aWVsZHtcKlxmbGRpbnN 0IEhZUEVSTElOSyBodH XdgyswQ7M9Hm6wQP5pX 1DbOl1akT8biBlbG949 MnI7CGZ7UIy6X236MZW qSKImsSNrxIq8fAqaEr IyUitjh4HgnEKxReHgZ OA0OkGmKnkjHWkjAgBj YEJ0bRjpYDzgDUWilOZ eJUCYG5hii2C6ATyyww Jtq2LuFXidTYmGDPtvQ RJzeFInouH7yL4rvaUh RDIyCNHrIB1xadUtrGG mxSAjJXI8fHEnRUJtTw qcaRT2DGU4iL3qLQUsd nZznLYQZ0crLZnfTLSt bmQgXGkgQkNMNlxpMCA gcmVhcnJhbmdlbWVudH PxQURmOBMnFJQpoW2aa GVkIHVuZGVyIGRpZmZl rkIqwOLxk9ZauzwpIJ4 aQCLsVP2ysX8jaqPtl8 Y5VT5xmOTrh3tgo8xvM GFvn2HhsG7sJMHsSXMl t1AoyFSeYFXjbmjcEkG ccGFyfQ== Gross Description (test u1mbpKNiJVKdlZEQDUn code = [id number]) wMVxhbnNpXHNwbHRwZ3 BdgeunGAywXV9pYW7uj NqdwLOdeVWqLM3KVBJl ZmYxXHBhcGVydzEyMjQ mUELfyVVunUU5IEJoDT 1hcmdsMTgwMFxtYXJnc mT2LHVsrULwZ1RrDOYj IK4gwdtvGPN8KMdraM2 pxzYLNyzxLo7xiBOxwF tcZjFcZmNoYXJzZXQwX RAjgPwzJINfTGo9tB8H HajjJ68am0H1Lix5EYA gTTThD1XxPA6kIZIhdV LfG49WKmqqBLL2JLKAX fbcVUBkYC7Ba3kpILQv oAKrNGH1EXnbbNRbGYX jHICqYFr2OWSxTDkqoV PkPB8khEkzZqxwyAfgx 2VjdCBcXGlkIDUxMDAy SGzfVTTgCK1HVdIgJOP zNYP2LBYqHWs6JOi1UZ 9DGwPwEURiXCP1EnT2M LYbSRq4FEkgXZ1UODLn WAonGEd9WSQbKAPvIno gEHq1OHFvIEpdUKTknF FsIFxcZnMgMTAgXFxmY wBaMBYiLVdovtG6LSKe YWluXGJcZnMyMCBBOlx lGNQqXZvsjFxbyZ0aLI YqR54xn2JAd3VwCG0UG Tn6ruRhymqlwE2hHUZd bdTePEriwCOvZ9pkWlr jZjFcZnMyMCBSZXRyb3 Zhmda5x12gqR9sMCyoO gMhUVboQlPvB8HhXJUW zAl5dMSvNGVtw8P1ZWX 4fGc9CE36MN2tiL2mrP JgWNNgd5fhLGAtm3D2A VYge5GijiTpMO5qrY3x DFYoz45bJO4hJTCqIMC vIDEuNyBjbSBpbiBsZW 7hmKmoBB9pTSPsERBen SBpbiBkaWFtZXRlciwg DX76fPXeaTmyc8LlkAn 0dGVkIGluIEExLiAgXH Rnj6EdN7S4ADCvWTjws 5qpVMVbFDoup8KgEDeA TJGXIN1ULB0cqDP0CQa QN8KEK8tLnWAnFZO2pK R0KMOLVboxwMS3wDY5q K10WYJsRBXefFDmRRxn K039HPR9WXNuZNvms9b nTYPbYBvme8MiQTsJRV EMBS8CJA9hbNK5MXhUP 0VORHwyMTAxNnwxfFVT MPX6REtccIxjxSx7o2s kxCWsc9s5BCdqMUO5nS xwbGFpblxsdHJjaFxmc vTrVX4FPMEtnDOGEQS6 ZJ4aLXj3BZtdQKDyO6K gD0HageVmdENgXMMabb Uxe0ibNQR6VWRhbAUul SEmRjStOgjcOSR3VTSu KQhmYH4BKDLqMHA4ZAg pyL16iEHnDP7HSNBnYL mbKGSxLKFizfZ7HBSxo GNcRNO9ZV7feKtmkLZj ywkymrO4JZ0QaA== Disclaimer (test code = o9fcgBYaNOWtzVD9XJI 9834) wCJKlf5kny4ObjGZdnQ EhHGtlbNQftoZcls35f KV4kH26MP8vXKFyLlV9 UNRsmgH9Ztf6LNFfPVY ytDStP518g5esg3vhmo QeuVB9MWYfLLSzN8OhK M4gXBVcjZUuF18ewBWp HIX8XZXsYVQtxQWpFIF eGEJ6ANSmlAVpV6ieGC JxPO5hagnaLGibECidF FTctYS1BAZxyOOsA7Si VEXbOBviNYVscgl4AbW lPp5udZLdtInbKQlaH2 nxrQ5xChX8XEgtF8wzh W3gNAe4HMeiPHMmpRU1 snG1IQHwxCItA1ZqiH3 wTSBbWM6xgnj1j3enBK O5PDsqJFMeWrT0ysU1L DBccGFyZFxwbGFpblxm wjW6OIMxPTDoI66zMSL 6GIY4roZyAPMmisLcRM DzUPZcXP3dnWSaDFCnP RItJE8wLHG8RXltzRCe RNXzMPQfJHFnt0CuQX0 tFGXodQLoVAS8WURbn4 PrK5GxWAB7ZCQqqM4wZ CBieSBVVCBNRCBBbmRl hoUlagYVHAQuj0ngJ6j iPC6jBGdmCe7fWBBvqn kgTWVkaWNpbmUuIFRoZ ZQvMKDvv5EcQJbqstJa vb16KJObCR6nm9TsU4n hfNXccKo0FCVaHYVkFO Eec0ZiWGBrst68KOFhC statOslNQAkMg7xMc1x SPPzbqOgPCO4HaDQUI4 fpaokcPAleZwadc5gCY YgYXBwbGljYWJsZSwgY 02btNEscDGws9ZfTHXq TUDrPTiiKEOjzgBgg7p xf0OvRADbwISruIGrCT ZbNKOkPSM7dQOafSgfP lxwYXIgTWVkaWNhbCBu DTTmw2QafBeoedDxdWj efNAvoAinykQmi9PuiO wbKVptgMGke4cdk4OjF 5zimEnqLUpyi5FroC5j PFMmBRCsl5EpFJHuYZC fXPYnhP4aWAUxjLMxd4 6ydV5bxSjnFYEim4xwF 1n9w67jnVUiNmQzmF43 me8viUTwm0S9wVfiJLR 0gBToIABwWi5pVDDjFZ VoFBL7OZYgQYbjo0Syn jZjh0XdbQUbDNOtuyLi vwKns0yuu7eoBiy+IFR mFNMiiV80HKX5mX6aLZ HmuMJhx9I6SUctmgSus lRzcw18UPUlIZNftNha lmUdhoXmHQ48HWMzmdN jb7LuYVtjHRQhKDHdNV C9zJCnnoVdLOC6vHTae mcgZXZhbHVhdGlvbiBp lgA0gTcdCPWbKOEnrHL uLlxwYXJ9 [facility] Interpretation 2021-09-22 21:43:34 Test Item Value Reference Range Interpretation Comments Addendum 1 (test code = x8rksBAdAGAwpUO2UTH 37) pUSJla5uwq6ZvnJBaaD RwPCaubZArlkEddi48a FI7xK88TC7nFJWvWeH0 EGFjfvY3Esp0SEZxOFN qwPCzE838b7xhn6jgct GlgQK9rYcvOQRzpzyqG cD1DJknYRKcxskpTNr1 PKpgHTEudUV8EJPjmST kS9ZyWIIjHH0injx9NS M0PEfxOVRjVmU6DIVuj TBoFMTnlTkuUSqee386 NKR2JfLqOCIvblHarUl ooI7pBrArEXJGRWUsPE zjvMIau8xnd8NlN2qms QcuhJW5KsUGzRFtZURi XI96TEHnCR7uRUk9kOM zz00wZDPgjEwtCEEiUG Dkj5HwlJq4DJBzGvMyn jXtyW4myL8kJSHpcLEg zJ84BJ7znUZ7XWguWQG ccGFyIFRoaXMgZmluZG vuJjXln64woYYqztY7c GUgcmVuZGVyZWQgZGlh M07qb9zkWjNUXCGkxOH vBJ1lEKZmADXbyGMsqo ziRBEUMIXkFWVnaGa0q VV2ZNL2RPEehhQqfuUe dWVzdGluZyBGSVNIICB tz5MhVTnwVRXGOUQycQ ZwsXUqcvNov4IlhNcpz zbojW5jFyCmdhZzh6Q2 VCIetH2dALXzHPcqIxO vAO16WJFmayMhFuyhNA JccGFyIERyLiBTaGlta X8uNODcHRvixwUhNEHp PUlsQJL0nGdfUIEga7E dMB1oENZnmaI3svUbf3 d7oMP9gMNbCUoeS62uk 4ieFfayICC8 Submitted Clinical History q7iawJMmSVVep2tuPUR (test code = 43612) mbGFuZzEwMzNcZnRuYm pcdWMxIHtccnRmMVxzc 9LbN3GwUnWeXCuaqjGe XGRlZmxhbmcxMDMzXGZ 0bmJqXHVjMVxkZWZmMH auLk6usXNutZrfSfDgT EAqn0jmjvHBeahbdWd7 b5utSVVvFqX2qMHuBWz yW4trboRpgOZpGPTaKM k0fT40USPyeI7knWMgE GitzmFsBqI0SGeaFNYr JpP1KNUdiBZlFCYwH4d yZWQwXGdyZWVuMFxibH JvMHI0oUjhh6N4nXRsi GVldHtcZjBcZnMyMiBO h1BkIPg0lIrvB0JfBEQ fXiN0gBJkVSQqANbxVM TfBMSlfsE9uK76ZHjqe vR8vXMfj9Mus63cv123 aQ1xzTVgXHN7ISYgYMI yjUQqKDCmWYT4MXMwgF TlU9plTINpCT7xpbbwN HcjUPwlXXWaiCP6WLAz eASoO5CnXXMzZCgcGYH wgcy4ZtXyXw3gsTXrmF wbNGrjo3cyy5gbyMUpK lo0QQMkMfWiAmecBTiv q5Jvd2rzPKYdvh0yVJW 0xOGceHywm0Z4kESpLB YiqQOjixSuPKJyDpF6L CxtAV3rci76LNQbMBQ1 ty4vkTAcfJveryBxyVL zQSyaG3JhWNXnm345OP CaC3LfQWYms0T2edRvY tFvZXFprXL5muD4FSHr RRz3yBNuxeH9nsUmlHI lU0lroF3iYWJeLB7iyz nvz0rwLJmfHPurYUGle KN0fsX6QLCuzPJyE9Tj mS0kLBOiGGkaYJTgefs 8NoDhNs7dtRLzvDnsYT xzYmtwYWdlXHBnbmNvb nRccGduZGVjXHBsYWlu XHBsYWluXGYwXGZzMjR xgNgpfJgdpI8iHfVzNc KfNYshVZ9zZWCrS4ped AOmWGRkIBApH5llBqAq yK1aeYyrUQfavuUbHQV hbmNlciBvZiBpbnRyYS 8bGlAqbOfdDIrvx7WtV T5zAOvUMnDfOM4uoHXv IERpdmVydGljdWxpdGl zIFtLNTcuOTJdXHBhci BGZXZlciBbUjUwLjldX APzeeZTLJY6MGksy4Of LYN5IJTdJO80DTXyZH3 xdY3evSBuRULxHOqYLJ kuMDRdXHBsYWluXGYxX GZzMjJcbGFuZzEwMzNc aGljaFxmMVxkYmNoXGY vQTwnY6ppJhNvQsIhKi lfYCX5hH== Diagnosis (test code = 34) h0mcdVJyJXRnjLW5ZLN rFWCtw9try6SbwVJnzD WiEPirzYKljpGviv70b SL8zX28KI6sWOIaMqY3 ZIWkayN8Iod1VJHjAXS gjQGnO197s6apu9aoom XoaMD6iZwsYNWyianqL yY6UHvkJBUrxychTZe5 ZJfwXKEjtOC5BBPriZH pW3MfIFEeTE3kxok2XQ Y0GBxpDBXgDvC0ZADow FSvKVNbvOdpBPyqh941 OBN3CwPpHNUhqmIuyDc bxK4fGlRyOYDUsU4mrA Cuo3VePIBgYFQ7MIItj QOoxNRutCOwugB1kVaz xF2xK4UrI8WrQZDhLRE vcmUgbmVlZGxlIGJpb3 BzeTpccGFyXHBhclxsa GlwDAzguR52NrLmUNnO RlVTRSBMQVJHRSBCLUN FTEwgTFlNUEhPTUEsIE 7UVZKPPIoYSmbGM2JqR 0AQN1xWREQXLGXHNVDA ZM2XPRUANZ9DKKLjEz9 LWPbOXSlXR6VnUFiCEm 4IPUPKHQyPBDEfE98fg WVudClccGFyXHBhcmRc cGFyfQ== Comment (test code = 9835) y9nfzVLbOJZhoOL6XFY eCJYqg3wtq1WpeDDsrX ZsZJawoUHyweUxts56q IB1sR23HV6qEYTiKxG7 VWEkbuG8Kws3GLHnZZW bvAWtZ830g4wch2rujv DcjSZ4CHSfDKX6KNupO QJePLDvXec9SQK3U7ez ZWQwXGdyZWVuMFxibHV lMDtccmVkMFxncmVlbj UjSgj3ZZW6HUa9RQYqd GVydzEyMjQwXHBhcGVy rUV5BEHbFI5nrpxeSAm eWOarQVIedhB3WUKbnC BsJ2VnSTGeCK5wfwzfT KW7FYxxSAEuUCG8WyOg BJUkf5Bjcep9PgFwwQB yZFxwbGFpblxmczIwIF BlciBjbGluaWNhbCBub 3RlcywgdGhlIHBhdGll zoIqmWDpLTE8Mu41KYI dLP7hXVXxCT7ri5d2sM 68fUlhIqKryMKgl2Shx UwotH9nfJMpJbLgOGdq H01kbmC4CWQ5rN9ivSB fl2WzmCXhXGwvoLutSN Jad76byyVwWIOhEDPsQ LPcXWRwpV9wTRPRGZQp krCbcT7qT4pgDsOiGG0 uqjM2nvK4UREqyIGdiG M3jUAyjqAvhALuqkNnr OIyZWDrXBsyxHqooN24 t7k8ZI3kqkUpv3KnfBq lIHNwbGVlbiBhbmQgYn Mda0aiocX7um1iFUGzl C9dCUSsYCa9gUHhUWDh mn5nAUUqbU2icSLmLBI fawfoTtKxASjhfB3bl3 ydSdRzKIH7uO6frmZja H26YV5aLFBiAV1zeSTc TEVrGvPwJ33aeuAqSS8 wHWy2gPEqUQ3pCESst9 q4zYBtleUvnFErY2I8h rKoPPLaVlMpAQ6shiEh YnkgYSBkaWZmdXNlIG5 dx6TiAEX5bZHjzAkvzL xxpRUjlM6hsYx4adD0B Q9lDDprLWq7gAEqp33n IGNlbGxzIGFyZSBsYXJ bSBD8sQFfKCqyzqBucF xhciBudWNsZWFyIGNvb jBdrLDkDZV1FNMmT8Eq HVFfX4tzv62dqSfcTTM 3gRYhPZTxBUG2XF08SO beoYOym0ZdTAW0kPYfu K4rtMgntG2pdPM7qZUf URQzciboNVGodm6xzR0 hioHjD6GcbHPamTFtbV QmMH5wjAblf4UeLNHci ZDwE0PsP8DdfJJya7wr glJoyRp5wHMcTRNkzNW taVGdhJDmDR4znHtxKX 9bYX8wLIQrDYJqFOWdd 8SydERfa8MiH6j2l9Cr YXNtLiAgVGhlcmUgYXJ yJO08uGDyl5ZiITAoo8 T2t4WsVhDmd9XmSTCmY S3aDAJnCMO1KMRmVUXq bVWhrNorPPNsF1MbJXP kJDQkVFPnNQbjQJ7lYS NvbmZsdWVudCBuZWNyb 8Sbks0pJAGnfitkKQMl ME1avK3lwQdcxO4onYH taWNhbCBzdGFpbnMgb2 6dZwtuB9xmPTIbd8pvx jQ9sAI4SVQgLCJeVR8d bGFzdGljIGNlbGxzIGF xDVBkx2YatBo3PENbs1 ZbJ7HiMPzgKhHNWYOaP PEAYT05AKXLJT7xF6oE RjQsIEFORCBNWUMgKH4 3BPJvGgCuR5IygQFpfl UvDSVkUGusNNJmU0Vbh QPpCATdBCCcb7j0pRBc IGZvciBDRDMuICBDRDI xFJuxzGLlg2W8QDmzKV ewO3aquGxujKPbmMYbx Wwos0WnkDSmrBAbbRVz CRCrGHFtdJIxRX4teiw 7oUNwM7EweKCyHCDyz0 1vz4ZaUGRHaVKnV0ijI jcgcHJvbGlmZXJhdGlv biBpbmRleCBpcyBhcHB pt0ktuNM3ACa3CYajVI HgKpAhJS3usDLswRpkN GNlbGxzLiBDRDEwIGJ5 KSaiiLOvg1vol2HhD4j lzLydfNB9AExkOETqsx RpbmcuXHBhclxwYXIgR cmspnEloLEevHL7xxgl WP2lyHbqdPGywKLjCj2 wmCFhBH9tCRIognM9fx FkqjPjk5XhW8veYA1sr 6rxf0HbXZ6rQXRyniPf yeHqCi4nJBvkJWNvaRN vGUFvh20oSTYxx3e1rW ZlIGZvciBDRDEwIGFuZ NHkp82oxTrkfSXrk5Ww oHLlwDmjkPGiO3fsxC0 hMMXRaTGmf6Aiv3AsCX Pai8NjXFNslWFcinVzg 0T8ZQXrxyXsZSFjcSyf axUzMVRnCR3zrCaraFF dVKX2JPezyk6hoYAmUM UwhdriHaKqQKtxIP34E OWhlXtuZpyvQBmpE4Hq HMAmRXJcYEkjp6B7hPZ kSh0gMATpH8AasZEnnO 2aaM1cTGAgl08cf8QyQ CBvZiBsYXJnZSBjZWxs qevkS90sa9kdgWMruXV 7cPIwVKBoPoN7o3QawY OnT5XyJa1pHLpgLLm2z QMuj21fPjMEyOUkqQ8q qE7ctUjwqp56lVFyIwG gqG2oqP2iffGmjJIwc2 Q1UEUvQ6CwyTsdIKjsH 5TjgTTzLCPdN1ImdT8n eHkyKYdejRAxr7WfGO9 lkRuyXYvtEHSle0MnjE 5uHGKmPICzIRDIJR0gZ NQeT29wmSGfkTRdg2nn aWVsZHtcKlxmbGRpbnN 0IEhZUEVSTElOSyBodH EdiqgbS5J5Mt0sRT5zZ 8XjUl2gpF3mrAvzF966 BxQ9PBH3MPt7P534MVI eCUAthDDrrDn0dPvxNu PhMgnzw7LkcLDsVcQwF WC9WsEpQwtgSJnpDfPl KFF6lCoxHXmhQIXxzNC xDINCN3uad3O0HVmtuj Vew5JkQOrzFMaPJFneG NWvgLBpznL1dQ5zraWu RZZzJDSxHE2nmlPlpJX vdZNrGZR4gHQbICUnAs cooHY0AVS4vA3nANXws hYyoEYWQ4cwNRyoAHBh bmQgXGkgQkNMNlxpMCA gcmVhcnJhbmdlbWVudH QiLGVxSWNeRDLtbY4xm GVkIHVuZGVyIGRpZmZl yxPnrLBzn4HjindqNZ1 tKIHeGF5yhQ6qudBgv5 Q5YI0wnCInb3qdx5vbO IBjy9YsnS3gWNKbGLPg o6AvsCBcHHEpxcnnWeM ccGFyfQ== Gross Description (test d0seaDTuQCYndXSBBPi code = [id number]) wMVxhbnNpXHNwbHRwZ3 FurfzqWKafXI4yLZ3xe GncfTOegLByHN9XMRMg ZmYxXHBhcGVydzEyMjQ qORAcgFBlcVK4LKUzWE 1hcmdsMTgwMFxtYXJnc cM8SHZjuQTjX2WpGCMn GO4drguhOGL8GBlnfZ7 ireWAHvugKo6hwLZbbO tcZjFcZmNoYXJzZXQwX ZKriYqeEKAuZTp2vZ6F ZmxhE97lm8S2Onx8SDD tTVIoX2QeDY4aXWXmmY VnT19JElhgJPJ8VZSXR fvrMWXiEC9Uf7weHDHe oLLhUMM6ZYuawITlRVB cROFmBWd4ZVLjVMgjvA UfUC6fmDnvQkgzrQfly 2VjdCBcXGlkIDUxMDAy ZMouIHFyYD7KDvQlWSC eCCW8MRCsIWd3OAd1HX 5GJvBgVEYbXYY4PzY8D IJsFVs3YZbbFZ0OVIJv HXleMGd4LWEcBYDqUsn lGVd7HRGcVMciKGJhdE FsIFxcZnMgMTAgXFxmY aWuFHBrTHiqdhF3CUCa YWluXGJcZnMyMCBBOlx uWZBtFHzqrEbytI2kJL ZtM84il2HJt1AiTT7BD Dx2rgPcxfyriF3bPOHr thSdXZrmhNRuS3cdJga jZjFcZnMyMCBSZXRyb3 Zbtfz1z36fsJ5oIMuoX yRaXPneJuDbO1ZoPGUZ sSf2cECqVIUbm5O6TKK 7eYv3RK07RA9qeB7qjK LmIFHtb2doLRCth5N9C EEab3YonkUySY3urF5t PWBdk32cJI6jYJJgFPM vIDEuNyBjbSBpbiBsZW 9ygRxzZV4hYPGcVJAjt SBpbiBkaWFtZXRlciwg EH62hEItiRjmb0CudXs 0dGVkIGluIEExLiAgXH Tyy2UfF4M9DYDyBPxja 0utVCItUTtds1WgUKnT DUVXBB6PXN2wyHS8FFp WE9MDV9vExSTrWYZ6oT D7FSTGEqfyyZX9dGT1a A72UQSqGGCjlVLeTSuw B050SJV4GYAmWEczm4w iACZbHSeyr4DgCZgXSK NTRJ3VEQ9unML0EYuYV 0VORHwyMTAxNnwxfFVT OSG5YAjryCmsxGi4q2f hhJRey2q5FXovAMK0vM xwbGFpblxsdHJjaFxmc tFxYH6YKDCoeVZBLQW3 EU9jCFg8ZIqkAKIsT9X eM8NybtVrdNXbYGToxs Mht2usKWQ6VKJkaNNmk MOfPpAtVoplCZQ1LTRx RTbyTF8DYBWkOSJ1ZHx whJ86eDRrTA5WFLNoEZ uwKRKnOWCggmS8IDIsy TPyDCE8CJ9rdNdqgHQu qvznqlX4KQ7WlK== Disclaimer (test code = x7lhnVWvJKTieFL1NIQ 9841) eMHMyx0mfw7AzjGFbmO SkCCrwyTQkbvGbvq87m HC7yA32OD6yTXZxVtO0 MLSnhrZ0Pgu1LYVvEKV bjIFpY339s4goa2rajt TfhBJ1VAKbZAVaQ6CnM B9fXSLhnWMiS65syEYa CSF5CJFlYXZvaLQzACN wQSV1JAXsdPTzE4omSL FyCS3zdxjwACnmNNqmK EUmqNL2TIFieUUcJ2Fn NFMuZKtfMCVidgc6VsE jBt9qvLJrzRvoGSzeT2 aygZ0cLrD5EIdxE4wvu D5uOWa4TMcdDNRktII5 kiL9NVHuxFDxF4AdsQ2 bKIIcEV1mzty6k8poFL R9USfoJXFwJcS5kpN7Z DBccGFyZFxwbGFpblxm bwH3OYHmBOAqJ70lATX 6OCV2tsHzZYBfnnAbXG BkXKRcPH0huBHtIPCsX MZyLA8xBCG9MXkpdYCk RUAwURSlVNVpm8DcZL0 hBBDklZSkKTH3RXTcm4 AlK0ZrBLM5MBBkuE2bC CBieSBVVCBNRCBBbmRl qzCdsqJLDYIjj9tuH4j mIZ2mQVqxRa3zHLChct kgTWVkaWNpbmUuIFRoZ ZVfWNFxk9ZsEBijwlCz xy21HVTaHL3gg9IoG4a cfBQryYx4ECJgVZKzCU Cvz0QjOJNyeh54PBHtN fselNbuCQRzYz0tAf1o PDFbmyDlUFJ2ZpMYQE8 jaamfgAVruUllpq3iHH YgYXBwbGljYWJsZSwgY 81zbJArrQDmg2NrMENb WOStGOvjPNKzmzUeh2a wq8UqQRLifBVlnPDvZY ZdVVZaXGB8xQPlrNhtO lxwYXIgTWVkaWNhbCBu OOIce4JtkMaxgkTalOi opLSdxPzneuZhn6PdyP lyEYzhwPLll3qpt5JnT 0gpsJdeIKvnv4PppW1j LONfJNRag7FqKHLaYIG cDBSsnJ0iMKMpfIIta6 3doL9ynRcyHMEca9mfF 1n6x54kwVSiBiIvzG97 qx6dhMTvs7V7qRirCSW 8jDYeFBAaAq8gUOWsHO UlRQO8BOTfIUdje3Ilg aTqs2FkpTLhXMIoulWv luMrz0zvs1kcSuk+IFR cVIOrqW52IAC9xQ8zFJ AanIPlg8O3KPektmQsz lSuxa33FMMlDKHvdYie vzLpzjSbJD97ZSSbxtS jh2TpQQyoPVKuBDCmTY L8dSSojiHbDDK2zDAbo mcgZXZhbHVhdGlvbiBp jbE2fRdzFAAkTUNjsZK uLlxwYXJ9 [facility] 2021-09-22 21:43:34 Test Item Value Reference Range Interpretation Comments Addendum 1 (test code = [id number] 37) yDVRdf2plo1OmcZRmpR PyDKvtiPVjhbCeld85l WI9eN00LF1aZYCzRgM7 BCHegsY2Clf9TXXbNGA ycASnY496x9xsd7iyjt ZtxCZ2wXphNIBfffftR bV4SJlcUGJcikbxKLg4 GVotQEFumTQ6AOIjhNJ pS4KiGQOcVW4lcjz1EW X3RFtpXEEgPzR9PWSny CWoEWQgdKhoOUgjr795 LHP7XuMsJLHbzlZiwTz heU7bAaMyGQRAWIUvMK vqtACyf7hws1HsN8iud WxlhQR7ZiFXaYMjJVJx SH20PYNcTF9wUEs8aVS wb00vOECfmKfpGELaVM Csu0RhrLl5TXZgVlDib pStmX5rtZ7fCIKrbHSp iX60FK3abTM0OXvhPNY ccGFyIFRoaXMgZmluZG vzKnBkx27kjAFpbiT7p GUgcmVuZGVyZWQgZGlh Q29rr8mbIiKSXORgrHZ cLY0xWPXaORHieJAbyo suNYWPAICoSTRigWk9g QY9PFW3RUDtelVlgoPy dWVzdGluZyBGSVNIICB xw7UpBBtuGBOENFMjeV IzdTKmodIvv3FmnPkzv zukhE0aHuDvbuIxo1I6 ZJWfuP9lUVJrPXscRnL qBI67FTVmknStRpdfGZ JccGFyIERyLiBTaGlta D8hUEBpDTouyeKkHHYh XSddYYP5hSrnJOCyk1G gYE6tZVSuetK6pkNen1 q0sOK2bEIcWGuhQ89pk 8doAufiJUZ3 Submitted Clinical History y2xhwKHfOZSzk0dzQVN (test code = 12637) mbGFuZzEwMzNcZnRuYm pcdWMxIHtccnRmMVxzc 8KrO0LfFtNkICybwtIz XGRlZmxhbmcxMDMzXGZ 0bmJqXHVjMVxkZWZmMH xdAy7zkAXmcLeyMpPcM JOtv4jvbrVAdazrvXw8 g9khBIHzWeP3zJEeAZd yO6nkbnNutADgFRNaQR p5xF14GILqyQ0npMXhF ZgibfDzHjK3KEjiQEQg KwE5JZZgeBYvDFMjM3f yZWQwXGdyZWVuMFxibH IgHIV2pDwir3B5xZHdd GVldHtcZjBcZnMyMiBO m1GnVIq0jWorL5PvQQQ kQzW7oRPoBDUeQBttKG EeWFZggmY8eH71GTxzp dR7hPXgs6Fnt02nq728 iJ8yxIAhAMM0OQXnWZN onBRqFKJiHNN9AGItpU AbL0ggOWHaUG0uctfcE MydTSfwQKAgrAS9ZBYl gJDcY5QxVTYuACqvTSO gzuy6IgDzMw2lnQHlsT tmZHbnh6luh0vnnDKoD hp7KOKpKdGdBuueHDtj k3Axn5rvRBNfhr4cURM 5dAWuxVwyy0R6aIJgAG KkoCWnhgPnCENzCtY5K LbeMZ7fss28MRTeSIE6 og9lrUPnyTouimOgiYU pOJndN8EgICXre277WY HmB5JdSIKzf8Z7yjJpI aCcRJSuhRY7cfW7YEHn VWt4gLAihpO3eoTgkNV nK8wjeM3wXDCmJI7nbn ztq8vdCRxnITruDGQpz UK3geP4ETJbbTGlO5Mo xS4bWFYqMUtiHLQomza 6LsPuRr1qtNHjmAeyGL xzYmtwYWdlXHBnbmNvb nRccGduZGVjXHBsYWlu XHBsYWluXGYwXGZzMjR joVzssXbukV4tXuNjXs EgJZtzAN5iWDXuZ7krh ERoQFNxSZKlS1hwDvNr tR6ylShkZAjmpnBfISL hbmNlciBvZiBpbnRyYS 9yYdLcqCbsUAruc7UiW J9jGGeOPgEsFD8vpZXq IERpdmVydGljdWxpdGl zIFtLNTcuOTJdXHBhci BGZXZlciBbUjUwLjldX AErdlACOCM7UXbap7Nk MQF1NNKfRA84UPAtCG2 fhV6yqRFbWTPwBVfBLM kuMDRdXHBsYWluXGYxX GZzMjJcbGFuZzEwMzNc aGljaFxmMVxkYmNoXGY aRFbyE5kjJjZpLtViRu bmWZN7kX== Diagnosis (test code = 34) s8nbmHNhUGQywDE2APR xDHQcq4tme9PzwRYjhH LbTNktkHEtpfQkvt17n AD4cH63EL0eYWWiWsS0 XIZqseF5Upk4CZJzIQS juPGaY247r8mmi3oojs QboQI2aZesNNLorznaY rN0SUojMWEbuwchUYl4 OMrgAGCpvSO9REEqfWI yS1XsVRByGC4irrb1XK H0NFesHQNeOlT6XPMuh HDuBSXlwVlcDEzgy203 QQV2WpHaOUFctnHhwQi jkM0xBkAoVWGMeP1niR Zvc4GbQEYqMWF5HESqx IOqnFRavKLwlrC2tKwy oB0zY3WjM2FjRAPxSMI vcmUgbmVlZGxlIGJpb3 BzeTpccGFyXHBhclxsa WbdLFryeK04DdDqFOpF RlVTRSBMQVJHRSBCLUN FTEwgTFlNUEhPTUEsIE 7WQVUFFBlBDutOS5LzP 2UVO6nDOLHNJEJMSMKF GV5LPZXPEL2JBAUnDe3 WTMbXBHeIW1EtHRsPWr 9CNEYJCJmWTOQuT49hn WVudClccGFyXHBhcmRc cGFyfQ== Comment (test code = 9835) z6utpEMrQLRcmUM6SWT cHNOva8ebq6MwiDWlcH NjEAcjwVLnkjKbfw42f MU8iS61XX4fBFZiKkC8 EELouxG0Zad4TGFkCBX znDHaQ420p1xhz1naue PavLS2QGBgHXA3QRqyV GGzVQYmKxk1TCY2E9kw ZWQwXGdyZWVuMFxibHV lMDtccmVkMFxncmVlbj XuAcx3HPY3WVc4EYGae GVydzEyMjQwXHBhcGVy oZD0ZSQmYE8prcxmNBy yTQkeTEEktcL1VFIxgD AkS9UcJRQzAD8oerijD PU4FIkuIHYbAPS7VaUi KJRnd0Oysou2KoZbtXL yZFxwbGFpblxmczIwIF BlciBjbGluaWNhbCBub 3RlcywgdGhlIHBhdGll qcOeoQVtSNS9Qr70TRH xFI5mFQGtJF8zh4t7lO 57aWxdMlAzeUIcu2Xre TlpkL8qoVNpRvByQExz L61xllH0MXR0kZ1vsXW aj3PztODaTIwlsXaoTA Uux19gfpIjGDIeLACjZ CTgFFVknB2hFXAIBMGx dlJqnW3eC3abTwUqQJ3 rvgH4qyO1HEKtkRZlpH T3iRGyaqUjyWSidoKci CZxKHQsWSvrcDsmyU81 v1o4YS6sfsGbf3XbfHs lIHNwbGVlbiBhbmQgYn Xlu6tnwvP3yr0hVYWyw H8eNOWmDKq1sUGbVPUv kh4mWAAwtA3xpVCqLIY amcpxRrEhNRtxfV5fd5 yoCyTlQMW0bS1ryxYqr N36HH6yUGGeQM8waBNm NAHtZtDwF91ybuInWQ3 yTBe9zKDoVF7qAIRcn2 g1wFTbqmOyaQJwI7F1d tTzKBKuLjWdQX1pfcJz YnkgYSBkaWZmdXNlIG5 ai5SuJZB7nDYecDzweO wkjLQhdY2udEz1trY7K L7uEIurUQi5cQQni34t IGNlbGxzIGFyZSBsYXJ sYAX0fPEvMOpfeaHjcF xhciBudWNsZWFyIGNvb aEcpBHnAUU0LDRrA2Lh DFMtH1qxn10uiKkyGQX 6uEGbUQOvJER9LC69ZQ yatJNgc2QoNYY1zBXap U3dlGarhO9ziCO4vVOx WYQsjfhgTGTwzq2pdL3 gxlLkV1FtaLXrvQOufX MyTB8asFpor1YbYOCfe IDtM8VfE1FomBJyb8ek yyNcrQg2gIRcMQCnxHO gaCJwjRIaKA3rrJhaTD 6vWR2wKIQiXTLzRRVwg 5JfyXNsw6VvI7r1d1Uh YXNtLiAgVGhlcmUgYXJ uEL42tJDxn4ByQQKbz8 K4l0VaAlLuz3UmHXXaY U4hEZKmRZT1HBRgYIVc wOZqtXncCLOqY4WlSLA hMOFuOXTzQCmvZJ1rYE NvbmZsdWVudCBuZWNyb 4Omvi3jQTSwlxzgBEIs PQ3egF2uvPkcsJ9haEV taWNhbCBzdGFpbnMgb2 6jJsodB2pxNWWin1nmx qO2qHF1PWBsEUQtXV9n bGFzdGljIGNlbGxzIGF oDQRhk8HxiBp6JPLso3 QiG8BwZTrbGiLDBIJjG GCLWM59KYURYF3uY1qK RjQsIEFORCBNWUMgKH4 4NLCbAwIdZ3JegTTszq WuWTPaATqcNFMhC3Gji NAnKKLaJOOsi0n1xEPj IGZvciBDRDMuICBDRDI vGJgniYPbu3B3GZekDT vdI2ymaHxuoAYziNIjv Fctb7UwfYEcpRPzgLFt TWVgVOVsiIDiSO7fnsm 3hWUyV6GevXWhWUPld0 9xb2FhSXOApNQbP1hgK jcgcHJvbGlmZXJhdGlv biBpbmRleCBpcyBhcHB km8uffXU6IKo0YPxxLJ RtLwEuZV5ekORpkDzfH GNlbGxzLiBDRDEwIGJ5 ROrhaWWkv6zho7YxX6c fnKskcTJ6XZqqKJOmnx RpbmcuXHBhclxwYXIgR tvlkmPhhTPpkUK2vrvu TW0stPfxpPOiiAJuQh2 boYBlRT6jLWPyptC9km TvkiUtu5AjU3qsDO0mb 2kgh6VmKP7eCAEeepLf ugZeIq3uXAspNFIqoRT eYEZtd45zAMAoa3h5rB ZlIGZvciBDRDEwIGFuZ JNdq82czQsrrVHnf7Vs qUNffBhsrWUuM2jiyT9 zYHPEpCKby8Adb2AtWZ Wid3QgMWUbtMIulgBbk 1C9ABNsciMuJKBgtYww hsWoMPUlDM2xwVdfkLD wKZK5OLsnqt8qjUXtUT NkuspbNtPuDAyxCV80Q CGwzJhaKxjsDYlsY2Fc PDYnKPTlRTtqd8Q3hYA aZd2dGAFzT0GumORhtD 8jdK6wTGXjm49kr7SmE CBvZiBsYXJnZSBjZWxs wztyL53bf9jbeOHzyNS 0mBPkZKWhVoG8t5KakS NdC3HjBa8fWXexTGh7r FAtb60uRsYAcWNjxI3f qF7beObwkf26gHJaKvO zbJ7arP4ocpGkfOOpp1 M2OVLtY8TcaEixZKqaN 2UozQSxZLNvA6AxbB8b iMusVGredSFcs7SfNN9 mzWarEXsaJKAcd4QahR 2sWLZcCBVlYCKKQA1gB ICnZ08ynYBapGZvw6ut aWVsZHtcKlxmbGRpbnN 0IEhZUEVSTElOSyBodH PigrriA7E9Eh1vHY4gH 1JiQx0ooE5zbWluF860 YsI0GLV5GDz8O173WQE xLDDinYBnyFs7aUtuLu BqWbzcj4YgxGCpRrWoR JF6GpSmJsrwZCcvGjSw AGK1pLjnOUcoKWKqjZJ yROZPN2ecv4B8FQxrwm Tlw2VpHRabAVaXJTjiC ZGywEPcpiT2sX2jhbUl QSZlBZWxSP3oshNnaAH taZWuYVG0dORjWBUhGy equYO7PLQ3dN8pEMGjk fHqoSPBS4txGOgiAMBz bmQgXGkgQkNMNlxpMCA gcmVhcnJhbmdlbWVudH DaBGQiYCBdGVZieX8jx GVkIHVuZGVyIGRpZmZl suIbeUVzy6YcuytwVM3 pRJAjPP1aiN6omwGvd7 X2PP7muPUcb0rsl3fcC JEqe7QfiN9wSKIxWNBg i6OmtLNkUWJfxvzmMeN ccGFyfQ== Gross Description (test e5nbkDKwYEJzgGQQGDh code = [id number]) wMVxhbnNpXHNwbHRwZ3 FauvyvHPcyZH5xKC3it MjpaGYzsIYeZQ6WTLUb ZmYxXHBhcGVydzEyMjQ rKPQncAXymKY0OFIbSO 1hcmdsMTgwMFxtYXJnc mX5XRFxtYEcF6KlRUGa BE3wijdfPGI1NGxbsW0 rozXRNgioHm5bwMLefL tcZjFcZmNoYXJzZXQwX DOyxQjmKYXvDRx8eL2Z TywcW35he3Q8Twj3TRD oCWBnJ3GqBN0wEJMqiW VmC50BFpvoUAY5PEWMM klgYDEbMO2Qd0hlDRHh qXDrAFW3ATyofRHuFIT gAUAwHKy6GRDuABdssF GlWY0keQcqXsihzKhlr 2VjdCBcXGlkIDUxMDAy EFwhOLIdKF9TGnCzSFA vOXG2EYKwAMy8OQl5LR 2BDmGaNVCcUZE2FyX6B JEyLKp0XGjmAA8CPOCe CQmcTGp4OLMcZAVlEwd tDCm9XQVoJKrgHIBpoM FsIFxcZnMgMTAgXFxmY eDwNQYjBPvzwgH1ZBIv YWluXGJcZnMyMCBBOlx yEAAoLNiebYbzlA7eSQ DgH07kl1BVl4XrTT6ZI Hr4grCjxhnehG8eBNAk xlMaLZyqrHTuZ9hlWll jZjFcZnMyMCBSZXRyb3 Vcezp6v56wsQ1rBXoyN fOuWIjlTjLqG9AuQHYC rJl3xRUoUNQwv3Z3OBN 6mGn3SM51LI3mpY7kmW TgDLPgs4ajUEIio1D6K DDbc0MwvcUmEY2jjK2y LCRwk57oCV2vHIWyGCC vIDEuNyBjbSBpbiBsZW 1yjWadMK7pZCWgKEZso SBpbiBkaWFtZXRlciwg AH58sNHqzBopq8UjqEc 0dGVkIGluIEExLiAgXH Rpi1VdK6U3RZJpQKgnk 5daAIXdTVlqq6XyHYsQ EHBDKS2VLK1vzMW2WBw ZI9YVX2xQhUCbZFE9tT P6PHISQbgjvLN8wYH6n I50JCHaIJCbqQYpVVrk J975TNR2PJPcIJgdh3n dJTSyVPutr5UsSMeVND BPHB7RCI7bjVO3OKiVT 0VORHwyMTAxNnwxfFVT GKP0QNrryCnmrSj6f3t pbCZdm7g1NEfdZXX8jZ xwbGFpblxsdHJjaFxmc gDwRK1MCREuaNPCENJ3 BG0aVRi3QAwmIYRlH7P iW0BxpsTdxLCxZIRvss Uuo1ccERT5TSJsxARmt YDkNsCxQvwoTAF4DBYw GJxaXV5UHRFxFYU3FRy wnS29sYUtAN0ERPIeSX lqTVDePLXvweJ8BQQdp NYhIND6DC5qaJxjxTKr cbtyzfM2OH2NhF== Disclaimer (test code = [id number] 9844) fQVRyz0tpg2JbjKKkwV QeLZhqdODcgaWdoq89v MT2gG12YF1yOZCyOmM9 JKJnalY1Idr8RGIoYAX qsNArJ764x7ruf4pzpw GsxTL0DQDeSHKzA8ZiK A7uLNTqiPDsG67rpONb BAJ5NJAsMCSplNMaPSQ lLVM9TAUwsCJrI4uyDV IeIA8jqezlPGcbSBxhQ NKxwWH5LHVfsKElV6Fp IYPeYHcoXHTbpxv9YmG zEt6msGUrxVjqOTsoA9 ivaS2yXjB2VUhfI2uuq J2kWOz3KBqePWOubMX3 vqF4JWHhmCAlK2UjvE0 lVQWlVM4zsls5h9sbWG G2HAvvVLGxUpB8yxU3E DBccGFyZFxwbGFpblxm fpK5CBCbHBUtQ28aEKC 6WWI8osYyHNJkvxBwWY BbJKVqAS7zuLVeJUMeV GWhPE1jEED3ESkhwEHs AFCvKLOqTGLox3YtUD4 dWRBqjCZaLCN3XCAcs5 KnR5LjEDT1EXCufC3nT CBieSBVVCBNRCBBbmRl ixGcesUPVOVhk5ugY6q cUF9dLZemPa5dZCNirv kgTWVkaWNpbmUuIFRoZ BPcVQBus9CuFQmxuaTe ht18AIYqSW9hj6KhG7d hoJVapDt8FNLdFLSsNH Pio3UxZKZvvu52INMnO uhnxZofTCGuOn2pAt6m YOVmkuVqVNE3GxHDMU3 ydvdbwLMvdWaryn4aYE YgYXBwbGljYWJsZSwgY 68zeBIooYIew8BsDNSx HCBbHVwtIBMzvzEqq4w qu3UgRJYexINlcXNiCP LtOFXxCTQ5vBJlyRzgA lxwYXIgTWVkaWNhbCBu QZLww5NxuNwotwZfyKe brEHcgKrdbrTsx6DweP xvMEtdrABcq2xoj0CdU 7kfgAspRXumt2ZobY0v PEGdWMDml8BdHUHpXQZ fYHRrpC5oPQRzmXOtn6 1prH0opPyoKDPns6dgF 6s8m13zzLSzWgEkfD67 ep4raAVgp5Y8hVmnMIM 5mCXkZBKwNf9pBKTcZL DjQOG4AWThSAzie1Snr xGwc8ZbzIEnPUUsjtKq ugLei5wcf8vhLfj+IFR pJGIhyR90IPE6sE4zMN HaaWTgn6Z1GEmeehDqu qOtyl69AREfUKLsyIaz baDfnfNeWS72UFAinxB su2VrICbcRBUcICQlUK O0pEHwttBuHBJ7lASvc mcgZXZhbHVhdGlvbiBp ggS6eFgbSEQyLLEdqTR uLlxwYXJ9 [facility] 2021-09-22 21:43:34 Test Item Value Reference Range Interpretation Comments Addendum 1 (test code = i2nzfPYmJZXkkKW0MYA 37) sINAzc3ing5KawAVqoE IxZMtcvUZvdhOaji72k TY5uB55AK5lTNFfOfJ9 FXHvbqT4Aav7ZVFiOYC lxSHwX564m0vto0rpbx GoaDN7dBulJOGplpaoY gP8HRfbSIEpuavmDVo6 YEmmRMGtyZQ7ZYJesFI zJ4LiMJMjIC2vxej5DX I6WWhaJDBtRuU6BQCiw OHqHUVwhStpGKtom161 IDM5BoUiNAEtfpUmiAv frE3iGlKfGGSUYAWtBB vgmSRlz2kfd5HuG2ucr OartIC2KtKBdHVvZBUv IR71SIJoBK0qLNj3mHI mb68lKERrfJwgPGKmMB Jyd1SrfRc8WHWxRtHxq lEseG7lyO0jDQZxeOHn fQ21OE9viFJ4MPmnRUC ccGFyIFRoaXMgZmluZG duZeMri36apQOozcI6u GUgcmVuZGVyZWQgZGlh N72fu8nrXdCPUCLsgVU mGT7uYTSbYUDswVLbdn xvGBNDDNYxXTXarMl8g JE1ABO5IVTfoiQlstZp dWVzdGluZyBGSVNIICB ue7QgAOtjDRMJHPXacI JpkSGeqoZbx3FatQupo biriT1pXgPermDyo4O6 CYCavM6qOKMnQYenAmN jRH48WMYjfvQrEvzkQT JccGFyIERyLiBTaGlta J0vCHTqFJeuaaCkXBHy FHahZJH9sMpaABOes7T nQD2bVHSkoeZ7trEut2 f0vZD2qWZxRTisJ52sw 0fjKxmqZGH2 Submitted Clinical History v0kdxZOjORMwo4dyCWS (test code = 13739) mbGFuZzEwMzNcZnRuYm pcdWMxIHtccnRmMVxzc 0ZkX1KuBrIeNFrvhqGp XGRlZmxhbmcxMDMzXGZ 0bmJqXHVjMVxkZWZmMH orSl1icZOugFgyJvNoD XQpo6gjbtRHqwlovOu9 a8hsOQBjTsA7mIIfLDv kC6bukoScgGZwTCLgFC t8hS62PIVrmR1vkOZjF DdvquRoFbF9HGsmNOKx IdR7UZZhkDLdWZDmG7u yZWQwXGdyZWVuMFxibH TcBNM8xKxjz3U7yNTvk GVldHtcZjBcZnMyMiBO j9HbDNc2cVeaU8HeBQG lOzK9nLRqRABmNCicBU HpRQMjmiG1cG36LHidy cO6rBCte1Ndv96up805 cA6ocSOyVVD1ADUsTFR diIKoTIVyHMO6ZJHagL BlA6cpAFDjSZ4kvwxmW UfeEQkpUHIwbZL7YJMd rRQoD9OpLKIzSChtJKH hrdm3SxCpLl5xhKGhmS vhSJgvq2chp2qsaRDbJ uv6ALPrSyFnWgpeNWke h0Fce9klPYZsyc9jNAQ 2oTQggKhkv4N4sQIhDH PjyEIsnzTvAPFrUlL4K XayFC9rvp76KUGgJAZ5 fz9drWLrzBonebMycAB zURioJ7QiJHOyi686GW SzE5AlJHSja9E7rhKeS mNoDEUnnZJ4wgK8YRFu YEa4tKIdqmV8snVynUU eK3ijqL0fUVPfWI3put dfp3grNGflSZngQAYlp XZ3sbM6NEChyVYyQ5Oe eV2yRVFxLFzfOBSwajh 0HsSpLp2rgQDbqYhzGX xzYmtwYWdlXHBnbmNvb nRccGduZGVjXHBsYWlu XHBsYWluXGYwXGZzMjR ycSwquWkjaS4oTrPnWl FrBCqdIT4kIOHpK7hku RAvOQAeCGAtU4edQpOz jV6qkLehBWzxwgEhLVW hbmNlciBvZiBpbnRyYS 6oFlTizQzeQEfcp2HgZ R6aICzSIoRaJE9gvQRi IERpdmVydGljdWxpdGl zIFtLNTcuOTJdXHBhci BGZXZlciBbUjUwLjldX IJtclJOTXV6SCyan4Az DGK3SAKgRF86UAMqXE9 iwX4brGXhWQYfZBeDDV kuMDRdXHBsYWluXGYxX GZzMjJcbGFuZzEwMzNc aGljaFxmMVxkYmNoXGY rYXshX7dcXzGhFjFgGt arVXX2tS== Diagnosis (test code = 34) f0zwjHZtUNCyoJW4PDI qYRXqe8fdg2ChvPQmyC GiDJmmiCFdjtZbjh71y PQ7lI10TY2gYWPgGuL6 PLEsbyU2Eft1PFBrPXR tsUJrW087t8izo5rrzl JplSI3tEwfXLCpawzoP bP4HZrzLOApmatfCVf2 FCmwORWgqSY6LKAueWD nH8RpZWLbGZ3detc2SC B0DJkhDAJgWjU8VASxv IVvKUPliXwgVUykz160 ZQW0GtFaFUFvbjWjrMo trA5vGyQdUUCHuA3xxZ Nsf2XqIMRrQRZ7CVIcx SSisJPslPImtmI9xPjz eI1xS3UpA9PyGRIpTFR vcmUgbmVlZGxlIGJpb3 BzeTpccGFyXHBhclxsa DxiFYfhqS19KpZaDGtV RlVTRSBMQVJHRSBCLUN FTEwgTFlNUEhPTUEsIE 8URQFIXEfXNvvWQ4AjW 9DFI0uBDLHVSXQKBLKF FB3XAVNFEY7IBQJaGd8 CGSkTDLfLT2JrRYaPWb 1XMNTXTEiKMSLzP34jk WVudClccGFyXHBhcmRc cGFyfQ== Comment (test code = 9835) m6erqHFrZEObjQH3BSH aTPIfc4udn0VxiUIzoL RpICbbtXAzeqRpdw73b TV7lV56UI5jUWGpKdA4 YZRcpxF4Unx3CHJjQJH ruXPuG244g0qyg9fyxi MeqUS8AJXhBSC1ECmxK OLuNVYvQyt1KWI1L6ek ZWQwXGdyZWVuMFxibHV lMDtccmVkMFxncmVlbj XiZpu8KJR5EUb3SYNle GVydzEyMjQwXHBhcGVy hPP9XBFvBD3cmlilRPd qMBxwYNWxvjX3KHPieZ QiG5XuCJFpWT4ontboY LH0AVmaVIWpZJL8TdXb NLCzd2Dghsy8RaMfxTE yZFxwbGFpblxmczIwIF BlciBjbGluaWNhbCBub 3RlcywgdGhlIHBhdGll fsWbfGOlRCP6Bb90QWO iTG4nZBMxHJ9jn6l3kU 58xEmnZlVywVVhv6Wwj DtibT0wpCQuDfXvNAvt M57hlqU6NUM6dP0pjYB kj1FgtBOkKMviuRreLF Lyo92vvxJoCLZcCGYgI BCtBXLoxC5wNHTNEICb kkIeqB8sY1fvMxXbKT3 meeE4ljH3HDVipTSsgJ Z3yFGxyrJhyCWkxzXql GKkABFwOTumkQacaD03 t0x3YR4ypcCfe3RkrCs lIHNwbGVlbiBhbmQgYn Djb4wprhL0xr8bWKVbm S7nVADpGEl3eLZyAYYf fc6rFLXonC2dfGRfUST ldaghQwUhBQfcoN7bg3 rsRuEcLJJ0vP4xsvGmd X61TD0mQUXsPK4ecOEr ZAFuKaBfM87wfbQvXP2 bAWn2hAPmHF0cWBRss8 y2aPVzegWegYEsR3I4x jNnFRWpPlEzYC4nixBo YnkgYSBkaWZmdXNlIG5 es5ZbVVN7hEFlsHhpgH edxNIfuR1ceEo6ulY1U L2dSBvqRAi8rQNsw50u IGNlbGxzIGFyZSBsYXJ fYXM0tTQeETwfdlNmuN xhciBudWNsZWFyIGNvb zQnhWXgCHR3RIQmC1Rn IBZfY4ycw91ogFdvOEW 7eALrGWIgKMD9GM47AW cibOCjy8BaNKN9zLFba X3qpCeiiY3xdRW7dQQn IFLquymkVRYrqw3lsU2 iusCgS4JqaXYpnJAuvY WwTT4qfFvlk8GqCJPei VExI2OqN3QrrYHcq1hg dbEjiDy2wSHrUSUifZO igVLpfOItPT1rrKbvIJ 4cFH6yBGZmLUVdBOEae 6CwvFFtv9PuF1c5p8Xb YXNtLiAgVGhlcmUgYXJ aHD99eRVmr8GrAVPra4 Q7a2BsQcTga3OsJWVzU K4zNOKdCZW0SUJiGPTv iZMskFvdKUVdN2PtTMD wXNAvXHSrRYmjLP7uJG NvbmZsdWVudCBuZWNyb 0Hkwp3xTFRupsvpEAFh GS3jwL0vsUgwyV1kzRT taWNhbCBzdGFpbnMgb2 4uHngmW3jaMPFrp3xyj jB8vPN6SRZnQPHgCU6h bGFzdGljIGNlbGxzIGF sXNBtq3LwhGo3MUMhy4 WpI3QuYAzdMkQITPTcM CQLPC46CQBPGB4eF8sG RjQsIEFORCBNWUMgKH4 3IZSvIeZkT0BidXIdsw DjJUKwQJagPXOrM9Mpa UBiYNSuMJCan7m5lISy IGZvciBDRDMuICBDRDI bQZvniSZep1H7BWvcAS ogO8unbGnkrLOjhPGsf Sitd9DugTGbeLPhxSJt TCYbOSYibCFyLS1wydn 4sHCkG6TfvZQeQKLgw2 9se5LmBWLHsYGmK4ceA jcgcHJvbGlmZXJhdGlv biBpbmRleCBpcyBhcHB ei6vtkEQ6JOo0GDpcCV NkEyVgRF1naJBpiOeoA GNlbGxzLiBDRDEwIGJ5 BZtjuOOjt4miz7SmO1n bkPwirMF9GSreAQHswj RpbmcuXHBhclxwYXIgR qguuvXciLJdkHN5vbbi VK5dcSzocFWsnWKsQh7 soUUoYX9mAZHrrsY0cp NpzcVla5XyJ3cvJA4xb 4weu5WjXU6oDLVrwkGy blDbMm2bAKagCSLktVH wYURyl97hJQAqu7r1tJ ZlIGZvciBDRDEwIGFuZ RMfd98oaVlgjALxn2Ee gPTrfRociGBcR9lpsM9 tVAEYrMAvg9Ltq7XsSH Wyv4WdZLGpiKMwluLtd 8J6JXDrnhMmVZUswNkr knDlHGEePB1wyQusrIR bUPI8RLbopw5rtNLpLZ EjyxwsXcXlWKvkPA00S TAkiIubJlapQJizM1Rg UJTrKLWjVQcrk3X8aTR gPw8eWPHqI2TnzUCqaK 5gsN6tSMJfq61fy5XtW CBvZiBsYXJnZSBjZWxs cvojK00wy6anqSQczXB 7iHIoPHUuYbY1b5CcbC CcD0PhYy0pHZxhRBm7n VFec48tJrZEuHUclH9p hZ7jpFhmjd52xHLeYhG pdH6vnH6wxjKycQXsn7 L0FWJmG9YyeEujJQuwC 9MhdLAjRYEiB6YdsP1b tDbwFMivmEHun4LjSJ8 cjYgmZPehVPOqe7GqmA 6jOGBoLRFcPDCBFJ6uV RDvE48pwYRpyMNdx5hb aWVsZHtcKlxmbGRpbnN 0IEhZUEVSTElOSyBodH TvuwnrB1T7Ef8vPR2eX 1CvWz3ahW1ltJfyZ401 ApT0OMP7EOa7C849XOM uFSMliVOypEq9xSevGm FpIaepj7QqhDUpCxCnL PN1KsFqQznzPTzuFeMm MYE1pAthTHafNFRtiXQ hKDNAL3wsw8B9ZAeiop Kdj9YfCQiqDJxRLNcvS HEmsVAcsfL4oL7uwsUy CNQqIVPbPR3uyrCcvGZ fzLSvNLG5vDBjABOjOc rgjFQ1SNF2kR7xGXBcq gQisLJNM0bhVNbuXGXc bmQgXGkgQkNMNlxpMCA gcmVhcnJhbmdlbWVudH GeKWWvIYKlUYJvcT1ir GVkIHVuZGVyIGRpZmZl kqFmfULbc2HmquthCW5 tNLRcOQ5erK0pmtEiq4 T2CT3akWUns0vzl8afY CZdv5NrlZ5aTRToXZOm d8WpxVZyCYDwnxdfUbX ccGFyfQ== Gross Description (test q4trsLKiECNrrKENRQk code = [id number]) wMVxhbnNpXHNwbHRwZ3 VyazotBUedBK3cKT2cg IcwuYPeiITzLG5HTAVm ZmYxXHBhcGVydzEyMjQ fGHJnqBKcwGZ0LMRlLJ 1hcmdsMTgwMFxtYXJnc rS8QWYrqJUpT5VmXHIi WD8bbzqaBFK5XSdczA5 kazNJApqsDi0gvCUulQ tcZjFcZmNoYXJzZXQwX KNuvOeaFSUjCAc4qO4A XcqzY33nz2O5Zgf8XUI wBCPmF1NkCY7sQMWlbC EfA63MUihxZPT2WGVWS vrfFFLpBP4Ao4tfFYTs lVDiAMW7QKqvjDRhPZC yYQYwBEw3FVLkRWtcuY BbCI7arXkcXjmoxWawy 2VjdCBcXGlkIDUxMDAy UQzvPXOaLZ1UIsBlYYG iYOY5POEeXXj7FYm1ON 4NQnFgAANyMAT5VoU1H IZoKLv0EYtwZP8SRLGw BUsxJIj3LKJtFKHpAdh dSZt5AFLzUZmiZXQxjD FsIFxcZnMgMTAgXFxmY iEsREFbECsetbQ0OMHy YWluXGJcZnMyMCBBOlx cUFHdKLypwMtgmW8tBQ WrO60qd9WQy9AuKQ8EG Se3inBsqemqlX5sEVAw adOzMSnmeIEjN7mpOhs jZjFcZnMyMCBSZXRyb3 Wxdhy7t24nmQ6gMHhsE bLfFLsdOaZcM6RsWIFX uXr3lEHiLSUto0A7WAJ 7hNq1WK89PG8jmX9jdF ZzZAOgq1ksTYBuq1N1E HEsi5XubvZiMQ0hzR2t IVMae73lTS8vBSYgDWH vIDEuNyBjbSBpbiBsZW 7dlTriGZ6rTBMgYDJqg SBpbiBkaWFtZXRlciwg YK47qDCcuNmys8QynWb 0dGVkIGluIEExLiAgXH Uzp3NnI9T6PCXcZCruv 9vfIUSpHZawk3ExNCiP PVEVEA1TAZ6pbJA8BKu LV0ODN3yHgWLoLLH7sF L0UFWGDubkbAK2hVI1i I15HFEmULRrrDNbFRuo G949ENG0PWZdXPlxf3d jUZKnEUwyh1XmCEyWWN MHLQ4LYF3qpXW9IVrDP 0VORHwyMTAxNnwxfFVT CMU4YOmrnCfgjZu9s1i rqNVbt4b8OAwwIZC4vL xwbGFpblxsdHJjaFxmc rUeSE9NAWVutJODHNT2 SD2pUQl0IOmaQZMwZ4F zY7UlznUjlLVeYAAywt Wak8evKEI0POGnaYRcf YKoPhPnWjfhULE6IDKv IKgjOR7QWFDiRPF3YTe mbR92wHGyPE5VJMVvVW wtHOXkARUfexR0QAPsj SOqGNA2UG7cgDizzIJy hstjczR1OS4IuJ== Disclaimer (test code = p2ahpMPsQTTqiFG1VKJ 9817) zGUVkb4qtx0EhqWRiaI BsEKmdmQOpxpHeun66n LB2uV03TX7zKTTmFwJ8 NLZskrU1Mkb1JJVoEFZ qlBUfY484u6lki2pibk HmhVR3FADvPYLyA8WlS E6tLXXjrUJqY34dwFLh KPF9HBScXWNweFUeNIN aVJS8MXWzkZFeY9huCK RsTM8duvnsDRuqVBtyI QBfcDY5AZOxpMQlM2Pq INDdVMqhCHVtvfp0JtS uKt9oeIPerBlmZQpuP6 nlsZ3jWnN1MQtuL6kul O9iCBb2BGbgMECeoRF5 dpO0UEVycJGdD3VceD3 mEARjJU7dtso5u2mfJL G2KOhfMQLiTnO8rcO0U DBccGFyZFxwbGFpblxm erG0HELtACHgQ06yCPL 0WKA2bvGuNVSbjkEhMS NaDURxNS8koNXyTKQnC PDwLH1dUIE8ANveaKNf MWVcGDLtRXPml1WgVR1 mPTPuvYJiXIX5OAGxh7 HfP3HnPDI2PMNxeY7eC CBieSBVVCBNRCBBbmRl myAigcLRVWIgv2vhG4d lQJ6qZOlwWk6oUPEblv kgTWVkaWNpbmUuIFRoZ KFgRMSio8OsFVresfCu zf70HOWtCM1cd6PhV1g qsFMxbXy2BDSpHFMpFM Gkq6NrNTEljl57QVSaD bwrlKfvGFTiYa7kMt1h ACDjmkPqODR8LcGWUU0 rxyrgxTXjyOlfzp0kVI YgYXBwbGljYWJsZSwgY 69pgOBpaUUfu9VsDGRx IJKtZSibOSKjrcYpj9p hi8TvYIQblKTvzWUmNE JxMWAnCVU5iCTxjNneJ lxwYXIgTWVkaWNhbCBu PSGen5WwsXcnpkMlpSp lbIAqdUjabwFkv0QqjQ lmNDbuoNUbe7qgi6ZuN 8criCfaEDrtl7YhjN0i OPLpEMJnk4FbKKWyPYW fECNcdT5yADAemWWdu3 4nwR5xqSfeBMRsv9vgW 3m2x15mqMPuRpOkfR58 hi1wuJUnz6U7zSwlDWD 1cKMqBXLuWm0oDZSmLP KbVCW1DTEjPZycg1Mcx kWaj7UqtLXtHSDveyPj omMfi5zpv7taCxb+IFR lKNMsqF24OHW3nA7rQE WhiJOze6J9TSuehtOhz hKpdb18NSMaOOKboHrl cvYoisDjKY35OOVgqzC yv3WgYSmeIUBuXXUtXS P2tMJmjwOnVQE9hSJsh mcgZXZhbHVhdGlvbiBp hwC8cVqfNWZbCUHvaYX uLlxwYXJ9 [facility] 2021-09-22 21:43:34 Test Item Value Reference Range Interpretation Comments Addendum 1 (test code = j2cgdCKuLEOeuER1QCN 37) yFGAvc2yfb0EwtUApeQ NiHItoaFAeuqPedo39b SD0gQ95NT6qKDObJxK7 LIZnroL1Ylk6SEWpAIL vyIDsB178g3nnw5maso MuuKC2cTxgRISofmrpL iG6XComQVMwtzriLXy3 RHkeEVZchYF7MFWymZT vB2LhEKCsFH7qzfw8LW C5NFbcWPNoWyZ4UETxm SZkCWAhiFpdVVxjj789 MBZ3JwEiYDMufaSxeOg btS1jHoFuGSQYBUXqNF kntCSlr3qzj2LrX8erx VqptIU6RyMHjHCnBPAo IG32BKKjHQ2hGUq5zGY dp76hLDKqhCzpCXEtVC Jkc2GmjZb4PGAeWwKye tYrtT3blZ3qFZIwcQCk xJ75RM5mdOK5RVvvWZI ccGFyIFRoaXMgZmluZG sbVuIkx60unWPehfE9b GUgcmVuZGVyZWQgZGlh T28wi8bxUoURTRNppCY aKX1tSXTwJDXedFGbpg ycNIABOHUkGRTweZx9a KF0PXI4YTSvgrEvgrCz dWVzdGluZyBGSVNIICB vn3QhLQeiYTXZDWBbiR BcwUIutzAnr9PdaLfto epziO0vVnWicnRtp8G5 PQYihO9eLEHyNSvoGcF zBX25UBFpjhWmAxqcDY JccGFyIERyLiBTaGlta S9aSUGaXRsnywFkXFLc OQsjJDB4cKzzMLRnu9Q aSS0hEIFxheV1ucMir7 t0nEC9gEMfPFwzC52bw 9wzHcquDYP2 Submitted Clinical History s2ibiCDtFDZtz0ilLQC (test code = 64766) mbGFuZzEwMzNcZnRuYm pcdWMxIHtccnRmMVxzc 0LoB7EtJhXqKUzifeMd XGRlZmxhbmcxMDMzXGZ 0bmJqXHVjMVxkZWZmMH ksPv0olKDdaHhrCeSgN WDtu9kbymBYdcnpkNh2 m1qxQFWvKnX0nXZwTAe aR3xawdTccZGbRKCyNA t4oV85UZZwuA0vrYZiI QynoqMgWrH5FFqsQSLo WdD8LENxyZRiJXTwN2d yZWQwXGdyZWVuMFxibH DwTUS3vIpyg6P7zMHlq GVldHtcZjBcZnMyMiBO n2CeLTe3xYksJ6AqQFV vTlY2bWSoXTVnDKwbOY MiNLQpmiO3kT47MDdpb eJ3bFGrj0Nsj13tb264 hE6jbWAmCMD7ISGeSND zdZGbJEXnXSN2WDCfgC JxP7mhYYGrMD4wgvcdD QayAXreLJLjrMJ3XADm dMPwT7DmWYAgDAheGZO ucdx2MiIxNr3ofCVbsD haOAnzv6wsd0jznWIeV fd7DNCoXbXaRpgcFYkw l8Mto6ywOLEowk9sKGU 4mPFlpUjtc6D9gLWvUY HkzBJnwpCrLVIwEsG8A IqtUF4mlv01FRUnMZS6 pq7hcDWmeFdmqjGgvZZ cXHtnM2OmKDHui620JV RjF2HbHBAig5K6mvVcC sNzDGTezVJ1ogB1AVBw VSo1lONcmdS9ioHbgXP aD3qybP3cFHWgLI9mjz bpj0ntFQicSLvaPUAsy MW0ciQ4IOXouCEnR1Oq aN0gVFSgYGucQTEnwlb 0EjUgHt5gsWZwtNiiYK xzYmtwYWdlXHBnbmNvb nRccGduZGVjXHBsYWlu XHBsYWluXGYwXGZzMjR niZfgsLlorS2xMpNkBx HbBKlqGN8wGWUvT2wzf SHgAFVqIJYpJ4wsKmJi zH1dfXzkHBimxrCmVJR hbmNlciBvZiBpbnRyYS 7gNcSmuHfkACowz3VdG C2yTXaWPuOzTF4lsKNw IERpdmVydGljdWxpdGl zIFtLNTcuOTJdXHBhci BGZXZlciBbUjUwLjldX HCzizTXFFK7IZisz8Mj ZPC8FCEpAG87VBNrAM7 qqY5eyNTeZZKiOTdYOY kuMDRdXHBsYWluXGYxX GZzMjJcbGFuZzEwMzNc aGljaFxmMVxkYmNoXGY oBNeuH0hyAdJcFlWnOw fpCEF2mN== Diagnosis (test code = 34) n7ahzXWcVVZotTA2GSE kJDEod7qcd1BrlWKsnP RfWIcvgIIqzsZtud12v OK9dY75FR8yYIYiNtZ7 APCxzsI6Zhb9TTHsAQB wuRGkJ297s0ubh6sfgq BziWI2zZucNIQsbnqiH fT6OYykTOQvumayTSd4 KOefJYFdgOA3DMLrdLS uP9MeHLHzHG5yvqr5IN T2WJapYYYaGtN1WWQpm EAtZJWerVmuUQdli421 VQW9VhRmKPHnvwGozOw xxV4uHlNrKJOBkN1mbY Shb4BkNJZjVOF0GXLyo HHzkDTctGEigyY1uNyd dL3pT4WeN8DbZJCyTUN vcmUgbmVlZGxlIGJpb3 BzeTpccGFyXHBhclxsa WmkZLefvU58RmIyBQyW RlVTRSBMQVJHRSBCLUN FTEwgTFlNUEhPTUEsIE 7EDQSJOVwONseLP4HfV 8OHG1kOXFLIHFYBISZB NM8VFRSKIG9HHGOkBy7 HPUsABOgQO3XzHArEHz 5TMDSNNUfCXBTwT15kf WVudClccGFyXHBhcmRc cGFyfQ== Comment (test code = 9835) o7brsMMwTWZyzGQ8LGO xAKSco6ely9WcxMRazD QqDGalnOHzjqJgiv30s SC7dW16KT6fCWOnHgV8 UJGjiqX3Ttg5APPyVSF viJGsQ473q3jfk5gqzg SyePN5YEYsWCT8PXqrX UUgEHSxNff1YFN9X1kn ZWQwXGdyZWVuMFxibHV lMDtccmVkMFxncmVlbj HiJmp3SKM2EYb6DOPct GVydzEyMjQwXHBhcGVy oXH1AKCgNF5yakqkCId tXDffTGLrjsM5QFShzL JzJ3OsSKYmGD3wsuvhX AS8PBsxSGEpNXI0ZxVw SVMxu2Txgaq6LrHghOS yZFxwbGFpblxmczIwIF BlciBjbGluaWNhbCBub 3RlcywgdGhlIHBhdGll jlSftSFoKTL6Ee80PDV bFS5bYXXaGK5ns7f4oY 97rPnqReVtbKRmb1Xgu UobtL9mmQDeTbTbODjy G54eorG2MBP2sF0zpMU wv0BnaXZlLSjaqTxbSU Qsz01nzpDyQRSeLQJxC MZgEYUanO9aDWCDCTAw chPsnR6dI2agBjAgES5 lcwL9sfD6RTCtsHCdmP Y5qNUzmiApfBTnysYwi JGtHEAsYTniiXomlQ83 n3j6SN7hniMdp2BsrGs lIHNwbGVlbiBhbmQgYn Ffo3skvkQ1qo4iWLUgu M2dRMWgLYh9sBPkZFGo gb1zMJUmhL8elONvGXV vevjhZcEvDMldlR1ax3 ubNkHtXQL2tJ7cfxGbn I20EK3tAEMfYM1psLGb JSOtUgEuH03ctrEsAZ3 dQId5dKXcKC6lDBZfw0 c2nJByteAejATzP5S0o yMoKGVfWxWrBA6krxAi YnkgYSBkaWZmdXNlIG5 or1UjYCG3iYSumUftoX zmtSRtaW2rbHq3wcR9D B6fNGcdYLj5tKHbg93d IGNlbGxzIGFyZSBsYXJ bVKT3cXLsVMswxeIvsP xhciBudWNsZWFyIGNvb gMdlCXlVXS3NQWvH7Dq EOIwW5req69iiKukOMK 0tROpURBsZCW7WQ74JH whaWBop8NeFEF1gOXqj G8zgYewkR3ztLF5qDLv IEOirpkjRCVbkb6juU3 esgFvX6AlaNYusMXflP VrIA2iuDtye8AcVKOqd AWbL6MyP3QzdAWvw3uj vkEqdYw9bMWmPUSivEG qdVOnjTAtFI8bcOkiME 1jCB7qWTPdOODgZCXyn 6JplUAsl6DoH0b4z5Pp YXNtLiAgVGhlcmUgYXJ wMK42tJVil2GnSSBsn5 B6u4YnJyRgr0DgXHGpQ X7iFRGdNKX0KHOoFBMy uHDvnWtaJALeU2LpMSW oOIZiWFNgTJiiDT1bCN NvbmZsdWVudCBuZWNyb 6Weob2lNGMijnukDYIf BC2zjM9wsYlefL2loQQ taWNhbCBzdGFpbnMgb2 5tYwwyQ9wbIQXob8tiz gF5eNA2FIQhWYUyQE6f bGFzdGljIGNlbGxzIGF cBABxl1YwpIq7ZVHmp4 ApT1YmRYjnVlJIXFOfI UDDBT34VAPMCJ5xM4bZ RjQsIEFORCBNWUMgKH4 0BFNjOqDzC0KucOKvnz WnPATxJHtsDIYdS7Qdu CJjWLNuVTAod1m5bEAi IGZvciBDRDMuICBDRDI bJRkcaAYov3V9FXhpOZ fhS8vlnPaddOXbqPDkc Wllt2GpzLPmyADhfSXl COOiNEXilXAiFT5tfmc 1eGTtR5OigDVlFUCpb5 5jo2XcWVPQnBLuO6hpY jcgcHJvbGlmZXJhdGlv biBpbmRleCBpcyBhcHB ui3toiRT7OTl0BLjbAV OhNzDvKQ7ijPFyvPzgT GNlbGxzLiBDRDEwIGJ5 BAuqfUFpt2wbq0RvD9d bhPrziYP3NPkzOEBnyc RpbmcuXHBhclxwYXIgR xorybHbrEKirIK0bfss XO9uuLmwtBRmqEKyQl2 buVFxFU1wNVZdkrN0tx ZqlqKvj7UqL9ujSU3ey 0fkb6WzWB1nYTOywsEc afDaHa5dJCkoSNNevGY wARPep32uVWIwf5h0uD ZlIGZvciBDRDEwIGFuZ QZky79cmTywqODtk0Vh tHOjeHxgrFJbU3wkiR3 wMVMZmJOzv3Gqq0OcIF Drz3LzIZOipKOwxbXbv 0U8MEAeocGmUFYnbYup dhVtYBXnLX8xpCtygWB dQRT9QIedcq0ajZLrOH RxzlolZkRcLSltGG00V KLkhWdzUawtWLidI7Sg TIZhSJJcENfte4O9wXF pZi2zTRExE3VabPRtgD 2uyZ2oDQElm25nm4PfV CBvZiBsYXJnZSBjZWxs vkvmE10ld8usuYMagNO 4kSNgCPMnQlA4v5SwgS GqK4StXp7rUKdpIBf7f DDvu30aOeCRlXKooF0e eX3reMtiwt67qEQpPuI pvT7mxC0dicMjtYFcp1 U5JCVnI0ZpgOxhFMlkM 9CmsAZhFAMyH8IapW3g kYvuZResnTBcd5JnVT4 dvBjkNZilNEWgu9QxfV 5wISNgEAGiQPQKWH1iZ LJlV50dbYWnyDFvn7qx aWVsZHtcKlxmbGRpbnN 0IEhZUEVSTElOSyBodH AmeomxZ3V2Zk3aOV7iY 2FsSw3kpT6kaGjpI970 IxS9NYG2XJz1M624PQW fRKBzfNZttRx3hVcfSk BvFsmmf9RrrLZpGqIqS OW0GoWqThhfWIbtGnRs QUV3sCcaIMldAQRpwCU gZWKDN8zin9G8BMmjza Lbf2KhBDobEKmMQFkvC OGrwEGufoQ2dZ5pgkNf DMKcCHCnBZ5odeRdkDN ywEIoOOV5hOChBWVmIw yddGH3WGN1qV3oWYFlk yHfxOJJE6qmYAfqTVLp bmQgXGkgQkNMNlxpMCA gcmVhcnJhbmdlbWVudH KvKXNpBZSiPTCjnJ4df GVkIHVuZGVyIGRpZmZl jyUjiVLqj3NkwdwjOH4 wKKCvNK5cbP6pwwPrg0 L3WG3wePGuz6yie8cfP VXlv3IozC6uRDAiBPJm u8RhqLEbHVRokagtDnU ccGFyfQ== Gross Description (test v6rxpIKqXOCjnAJCFGs code = [id number]) wMVxhbnNpXHNwbHRwZ3 RelbgdCRioXY7fAY7tb XvjsMLapNMgUF8YWWZp ZmYxXHBhcGVydzEyMjQ cQVMdvZYrkDQ3BTYqQO 1hcmdsMTgwMFxtYXJnc oU9CXXipYXgD0SvXEPv RP0tydlcVSK3IDanzY1 nrcUHNvqiAh8jdAGkzY tcZjFcZmNoYXJzZXQwX VMxcDloLQAiZNi6mW6A KivaR43ej1B1Ukp6KFI oBBCbC0DkWS5uKVSzlD MvD07XYryoBBF0QWIZH utaMBVlOP0Ia1jeKKRc iMKaYIY1NAeviSJgVLJ hNAYkXZn0BBMkIWsdjU VyOZ2hiWrpDemveSirb 2VjdCBcXGlkIDUxMDAy OKtbYLQmYB5VMaGvTAV rZPC1CXKeNLp3DXq0WL 6RZpXdOGYwRDX8MoE9W DQqLBs8EFhwNA5ZHWUy LNlpCQc2LZAxCXPkYmu dVMm9SAVsFLzdHDLovH FsIFxcZnMgMTAgXFxmY aZuXSJmMJmbcaU6RMJa YWluXGJcZnMyMCBBOlx gSXXkOGkjfUykpF6zSJ MfD82xg4CDw6MrNB5WQ Aj4spXcdsvekW1oPAIv liDnAZvqrUDsT0meYqj jZjFcZnMyMCBSZXRyb3 Qmjpo5p83bkK7cMVcqK pAdYGeoWeQbS1UnUSNI xZc2bPFkWWOqi1F8BMQ 6yHz1ZM07KE8kzJ3lgM AwGPTqi0ooYOPwn0S1X PAhl6QlniZjUY4hnI5y PKGnd35wRJ8nTQLeTCQ vIDEuNyBjbSBpbiBsZW 1ybIpaLB4rFUYtCGIup SBpbiBkaWFtZXRlciwg YK16cCCbiMkhy1GfzIt 0dGVkIGluIEExLiAgXH Xrw1DoI4E9ZFTeHRmku 3arJGByTLdxh3DzOUpQ YCSEGR9ZLD3fmTJ8ATj ON0PDU1pGsFBhHVV1jA T0IZIEVslutZZ1sCE6a P49PLNtNSZurHScSGvd F376EEH7MUUgUFxij5i uLAPmJCgqq2NtYYkDYF NJMT7ZVR1erBI5MGqZB 0VORHwyMTAxNnwxfFVT HYG9RIhtmOlfjAr7u5o biDOsd7c4YDyqJAC4rF xwbGFpblxsdHJjaFxmc oKaDR4UYYLgaUUOCJP5 BV5kMAm4CDrjQWXzK0V hO2QerqAikOOpXYBkvn Gyb9huGGM4GJIzjOMxf LUsZkPfYrieGHY3BKAq XZcaGA4WVMQaBAY5ZRj wzX16oBRrRA5NARJyOA tiZSVbKMIudaT4EMFrg QVgPIZ5OS4kcRiikHMc xpxtikV5CN1PkX== Disclaimer (test code = k8lzqNYeUJNibMV2AGF 8252) bANWot5lhd6GorAIifI VlAVindLLdheNcwz70y FU7wT42KR5lFVEdGrV3 UYZbvtQ1Joc0ATQvFJV phOGoI162t4lfl7csmk LrxEC6XZSzLOTtM1PdJ G4pIDJpaGVpI50kbZPg DDX9SZEqMHAdkPWdNEC oAIF6KJAbmAKfP5zyOY ZsJR1gwdfsCSaySSulO NJqbJX5RDKziLJbO9Dg GOHsMSeqGAVdcey9ReG mGu5fhONdgOloQDfrT8 zgfX7lLyD5VXddV0cay M8gHGo7BFgzSCUllSB5 zkE0TSRktEIqK4RkoX6 aNWPrBJ4dupg6y0rzDN W7CIvmYTSpOmA9iuQ8E DBccGFyZFxwbGFpblxm fyV7QAEeVOZaC62yDDL 9IBK8xxSaSJCmyrPmDF IgCMCoAZ2jvNGzCZGdA VPzOJ7nRHR7VDpxsOSs RLShMMLvHSYns3ZgQV4 uFXNasYStCDV8LLAgs8 IbI7MrLIE2UWIwwO2iH CBieSBVVCBNRCBBbmRl mfZxtkDYEOWna4mbO6g sKS5zHOvsIr5lUINgas kgTWVkaWNpbmUuIFRoZ SXqHHOqd5AyOGumpsEn nf43ADLlUM5nn0LjN5a djKYfbSq6REWoGKQyZJ Yyt1DaEVOiil35PIGfO gmvtIefSHQqIw8aHw3d YILkfvJsBYZ7ZgLLUG1 iwwhrfWLerGdbnu0yAJ YgYXBwbGljYWJsZSwgY 02sxSDjtAOfy1SgHIJb TFDuVGbpVEQoqsPxk2b gm5BwCLMizTOxaRXmFG XfACEgIWT1pHFalYtnR lxwYXIgTWVkaWNhbCBu RAXqe2UbzCxchkFvyVq lrJApxCyklhCwy6XziV luLMtsbCSkp7iwu0BfG 8bmlUbsEGung1LvfD9p LGQlGOByf6BoSTYsZFJ wYJIlsD4pQIRqvFCst6 5mcK5ajKpwDEFbn2ctS 1k9h66huQBtWpEilX42 yw5vjGGts7K7iXmvNTX 0vXGsEBQyAh2jMONfTD EnJTP2DIRhMNizl5Uog uZmh0SrdOUrCYIqzkDl ryZnt6ykz4wyIug+IFR tJZVnmW64PJR3oM3gMM VxhFWtq0H5EDtvwuUkv rIhvg29FHDkNRJheAgs geWoccGaRM86PHPplmZ gu2BmEUraZKXmPACzZD M5gHTonvCwUJA5yABkr mcgZXZhbHVhdGlvbiBp prK5kTafWAGaAVYdoRA uLlxwYXJ9 [facility] Interpretation 2021-09-22 21:43:34 Test Item Value Reference Range Interpretation Comments Addendum 1 (test code = f5yciPVgSXSsrVV0BYH 37) zWJQko9ahv6HlvGHlcN ItGHtanLQqzpFggu53u NZ4tX04MC1iJZEkMmL7 RGKzwsE6Fjr2JKJbSWB gpFNlI563t3znz6nrxm VwqIO5xHfkUCCqfzmlW bQ8KTatVOJunogtGXd9 BQgkADXusTE6ALUoyFN sF2RzUXYvHH5amml8LF Y4XHrxXVElKaI7QUDym MOgOQZdsHkdRVadh211 BDU0HrYsATKrzvGldMm ldY8kFhJeDJOLKFZlXV zuhKMvp9yju1YdX0ocm UfrxWO2NyEFiGMhRZPu IG83PCLmQU9iBSc3eRC bn92cOWQdsSptOMPtXG Jgr2ThnUc2KGPvBfPaw lKqfL4bwK2hSMYvkQXb eW12FK5zyHC3EIuhUMJ ccGFyIFRoaXMgZmluZG oiXwLqm27jzQVkinS8j GUgcmVuZGVyZWQgZGlh Y59kx1sfNeOQJIRxgZR vDQ6hHLDqDRXkxWLbap xxKJORQBHjRPLbiPp0h ML2CKR6YOXdafQxuxRz dWVzdGluZyBGSVNIICB sw1PrSXrsBIWORYFiyM OumZSubeGss4OjqKxpc ocbuH2sBhFohcAhb7R9 CHJfdU5rPCQpSBjyOcB bPH02VKIosnKaFfpnBC JccGFyIERyLiBTaGlta U6bCUKpZUopowJxXOKo OVlbYOW6fQezWBHdq1C pKL4aWHYszyK8gaNbq4 u3mOV0hOTaZLrkX03rk 6iaNosyHNB2 Submitted Clinical History o5jqfPFeEBLtj9qzCMI (test code = 89176) mbGFuZzEwMzNcZnRuYm pcdWMxIHtccnRmMVxzc 4MgK7SzSaJbWFdfyxLq XGRlZmxhbmcxMDMzXGZ 0bmJqXHVjMVxkZWZmMH xaWn6niOMpbJvrTdBuK DXmg3wnniMQcnbtqQr1 j0uuIJWyJwG5vCAySCf pY4pgzeWdpDEpXMQtOJ i3zM19CHTvtF4qdCJmX TwtdzZhXzC6JYsbIPCd MaE6WISdqQWrHCNbC0n yZWQwXGdyZWVuMFxibH KgUSI7wReto7Z7uYKiw GVldHtcZjBcZnMyMiBO z7KnNQw8dEphJ3ZeKRC cKxM5mOOtZVIqGPtfZL NpHTSyytH4eB64DJrsa rG2sXLbt4Anj59kj053 iG8fnEGjISK9VYJnFBE mtHUxBBFoVUY5MSQsmL MtB1sfNVIjRB8aomkjS LkgDDoiAKCytAG1DDMt aZMwX7WcCUUkEFphDBG jpwj6IyKoZs7qmZMmhI bhYHezc0dfz4buxKEiG vg3XCNvImAfIibgVJij o2Dnk8buMTOkix5iLCH 2lPBmmVpwo7W9rJOcKB SswBSqbePuGRXtUeR4O QzoPI2tyx48RKTuHGD1 tp2iwIOgsZilabDqpDK xCPuvB4FhTGXwh994KW MjB2GaWTCry8M3skZzP aEyRQJgnXQ4slG6GAOc QHm5pANayeH5trNycCA gX8hkeW3lAFViPQ3sfl qxn1irDIixYBpdDRAnx PG9auG8WHOqiUGmN5Rm cN1yMKYbAQxlWHSvpyk 6JwIzUm1guVWthWweYX xzYmtwYWdlXHBnbmNvb nRccGduZGVjXHBsYWlu XHBsYWluXGYwXGZzMjR nnVnjoSsjnZ7vKpXpAn PpQMjgGT6eTUErH6gve QKzEZTfQZYgL3usFaVh cU3zrAlvAIbykzIhWZW hbmNlciBvZiBpbnRyYS 8bBjJcgRyiGMiji5WtA V3zKSpPNrBpPP6zsKNb IERpdmVydGljdWxpdGl zIFtLNTcuOTJdXHBhci BGZXZlciBbUjUwLjldX DFsojYKXVA9JXbew2Ou IBF9JKFfQN50IBVeIO2 ijK7tcSBiVXEaACgESF kuMDRdXHBsYWluXGYxX GZzMjJcbGFuZzEwMzNc aGljaFxmMVxkYmNoXGY iQEbtD8iuItAgNwKkIl paHAB9jG== Diagnosis (test code = 34) y9sorOZrKLHrhMU8JYK gGIToy6yrj5QbbFMeqD EfNIluqBOfkmHnbu39w KB7dN63SU8sLDQjPbC3 RDDtzrE2Ura8AWBzSMJ bqLWpO948u3hcx3lroe IaqLH1tUfhFBGctsuyL nA2JWwfSQMacexzUYm7 PIugKFYiuJF9YNYolJT kM1TmFHCrRF0hrgq4LJ Z3MXolNVGpDoV7IOXlr ZClHZPscYfjSRbaq115 YKU4LwAmDCPlzqDisJj qiV2qOcCsONZWkJ6wzI Vhs3MgBSDeJRQ8RFBhm EGwoGOicBWxnpS4yNfy bH2rW3HlM7QkHKDlNDF vcmUgbmVlZGxlIGJpb3 BzeTpccGFyXHBhclxsa TooTJhhqG82IvIbZOwD RlVTRSBMQVJHRSBCLUN FTEwgTFlNUEhPTUEsIE 2WZPATTUfKKksRN2VoC 6AEC3pHPJIBCPNCJIUN HM1UFRWNNJ0WAOKqYa8 XATbIXNdRU2RaIUsERw 0JOVOTTVvNWUUfN22aa WVudClccGFyXHBhcmRc cGFyfQ== Comment (test code = 9835) t3dsmKHoJFAjiDW8SXK pAAGjq9evk7HgtWQuvH LkYBmhvYEvvoNgku60n WH5qO77AU5wDMUaYfN7 EKLxfvR3Uig0ANDqEJY hsTBrE473e6tep0muru FbyMP4DCYzBKX7JHmsE SQfMTTkLvm2RGP9L2li ZWQwXGdyZWVuMFxibHV lMDtccmVkMFxncmVlbj YeCrn1VYO7RGt9ZUTjz GVydzEyMjQwXHBhcGVy nAU2BKGkIL0hmsvgZCn vCPoxHYOtczP4QASeaN YqW0VrGKSfQC1hmjrpV JO2PBdzCLEfSQC9AlCt IRLhw7Nfwia4VbGfjND yZFxwbGFpblxmczIwIF BlciBjbGluaWNhbCBub 3RlcywgdGhlIHBhdGll zcRdzHQyPBY9Jn73BMY jFD0hGBEtEN7jx3y5jY 26jHmxAsJxnFZur3Vsa CsllR5hpXMgFeOtGIjd U39rduA7RKT2pY5njLL lp0HmjOCtQDthzWrbXC Hog55ghlOrWKMdBOQnQ TZcTVRdaH4kPSXRYECx wrPlmB7oQ0psEmQaSI9 bshP7nmU0WKAizQTtpI U9oQCuoeDfqXGveaMoe VRwSKJeLQgztWgydF58 v0l4ED5idjTvm4CzwSq lIHNwbGVlbiBhbmQgYn Xst8rpeyR7pd3uNPXvb Y8yHWWlOBd5oMUaGQBw ia7lWNDutL2khXFsDMR xgtmrPoGgPRvquH2os4 eqYnQyUUP5pG1mkvXzp Z34DG7oPGGmDC9swKYf GLKaVeWfY76rcrBfXB9 hPGb9yMMjML8yQBLyy1 z6zNFlprJryQKfH8T4l zYhVJThUeAfSF2sazSx YnkgYSBkaWZmdXNlIG5 pt6RnXGD7gAHxuDuttY zzuMKqiE9joEi3wbA3M C9kPPmsZUa2eLSfd50u IGNlbGxzIGFyZSBsYXJ uJYH8tRReFZmjegCfyO xhciBudWNsZWFyIGNvb rMdcYLyFIH4KKJrM0Li SBHjX4xmw78gxZrhOGZ 9cNKgRDEzXDF9ZW46KJ kwvJOts7SvQVD2oZRhd V1sxJhhkI6fkMI0gQMm KTJqrvjcJJCplx0prN0 kzuGeK6EhpQDdeJVgqU XwDL7rnNljo5PmDFPje SFdL8BlP6UkdRTvy1fj qzTiwPw9oOElFCHyeUN elGLrrPFdZI0waVtdTJ 2aVK6mLYJjTNPlJNXhl 2SewONmz3JfS3k7e3Wz YXNtLiAgVGhlcmUgYXJ xQQ71zARux1GwDPAtr2 F2j3GpNqBou7VaJKIaX J0wOUOsFAV6VMCdXNGk vLMrcZlhDOLrU4UvDRJ bDVIaXWIwIZnhUQ7qWD NvbmZsdWVudCBuZWNyb 7Ipek2nMIBtciofXAWp KH1pdN2tyGdodC4qyXN taWNhbCBzdGFpbnMgb2 6xUeuzN6deGLBul0pjk nL7sFK6FJHxLMUmHF3k bGFzdGljIGNlbGxzIGF xOABqt9GvkQx2STDhm6 IzB6QjTTzzNcPOAISjX FOGUL14WNNULV5cB7qR RjQsIEFORCBNWUMgKH4 7GPFcNgVbL1EcvMNhne TxDOLtGBsmSKLyW9Buc WLmXEYaUWPvm2m3hNGh IGZvciBDRDMuICBDRDI iJOuokYOgp3L0ECrnEO cxO0mtnCfdyRFnlUGuo Gefa6LotPCugCQzsORw VBCpNXFsvLOjHX5ktid 2cPHeJ4ElyNLpDTLtq3 8al0EjTVTKtXNdB2yyH jcgcHJvbGlmZXJhdGlv biBpbmRleCBpcyBhcHB os5gpdSV8OKk8GLimRE YcQrRbID0zuBLgdUepM GNlbGxzLiBDRDEwIGJ5 RFslmXAef1iam1NvQ3y cnEwexBD4GGccHLNuue RpbmcuXHBhclxwYXIgR iptyjYupEWngAQ5vayn ZN0hpKlaxJEweBJqUt2 orTSjPJ9eXKQmzrK0is JuaiEie0EzK5aiBA6em 8aer8KxIP6iMSBtzySg rcYuEp2gWBkyGZSszAT iOPQsc09pZGQjr9s6qC ZlIGZvciBDRDEwIGFuZ DPqu70thXpjqPXhd5Jw pPFwlCpuuKJbZ9tciI9 rFRHVcYZkh8Yko3EyGA Sgt9ThGBNgvWMidfBlq 4N5FIMdmvQkWSOhnDlx irHtDLUpJH7uwEnkpYW fUFX1RBdvxi4yfYSxTM HiwypaFqBjIAnpWT50S EQhuTzlQgdiZZzjN6Jc NILqQELoTDuxi9M3dGB mGt6bMBVpO5JdeQOquA 0enE6fDJSdc87rn3LiQ CBvZiBsYXJnZSBjZWxs qfsoZ89gv6oclIJimYT 3tFIvRIVzTrL4t5NxaF YoW0AgOg5wMNcqGKn7a UOxg66vJeVQmJTmdS1s nN5ktNdpoi56eNMxErA ntL6tjG8dvdLxnSXbt8 I4LFYvN8SwjMevZYdsI 7BiiQDaMZHlJ0MjoS3q eMhxPHfqbKDwp1JeSZ9 rmGxwBLyzBMArk9BajS 7rERZjHKAkQBKMEM7vL CIwZ76zuDXmtLGwa8ih aWVsZHtcKlxmbGRpbnN 0IEhZUEVSTElOSyBodH ZxpfnpN6H2Pe1oQT5jN 1UpYy5veX8zwEirS470 ItO8TTP0YLq8H953OKO oQAHlcKSalFg6wFoqFa KkKokxy5MziVCrMrYxY WV3KbCsZuixKBugHcMj RQB3zSppHNmxRYPhaEC tLCYVA5aay6N0HTskko Fmy5RmWThnTFzYWHeeZ AOydVHmjiT7tM7vyzXj TGExRCMyAI5pdvCaySX vfPZaVID9uYAzIGCcWk urjRR6MQD9kR4fHHTvt cZvdANZA7llEOtwPGJf bmQgXGkgQkNMNlxpMCA gcmVhcnJhbmdlbWVudH UyLSUaECZuIQTysN7rr GVkIHVuZGVyIGRpZmZl yiPvhFDug6MfadyuTY7 pMNYbXW7blA9bdyHyc1 Y1FW5yzKJhe8pxm0ayE QLbz5TrxQ7vXXZmFZAh e8ZahBCxJDRuzdzdPjR ccGFyfQ== Gross Description (test j1rucALkOCKjuBHENQl code = [id number]) wMVxhbnNpXHNwbHRwZ3 GutnzxSSbnWG5cQE1gv VzajFYvxUVlDU4UPMPv ZmYxXHBhcGVydzEyMjQ iKXPtaPJrkPK2XQEtQK 1hcmdsMTgwMFxtYXJnc pY5KSCjoWVlH0KgLUQe VW0fjjjsPVP8VFwtwH2 jqlGXIixrXx8fbIEqaF tcZjFcZmNoYXJzZXQwX OVyzYceCULxRVk7bF9H RqxlC36wf0A9Yho4DTD tAHCtK5UlXV1aABPhpJ WfU69EDgmsEEH7XPSZS cqmEGFdXK0La5elBEGy lPHuEYS6WIxbuQEvZDR nIVZlGGy7EIMnKWicuG EwML5ytUosGtuqmDbky 2VjdCBcXGlkIDUxMDAy BZftXRRxSU9EQoMvXZH tLJU6KCJtSWv8VBv8ID 5DDrSoTCIrLQB9OdP0X FBrXFz4TRooRG5IUGVz BOluROu5ROQaSJOyDer eEXp9IWMsWUhdLUBtcX FsIFxcZnMgMTAgXFxmY kLbKDKlUEzxewG5ZIAv YWluXGJcZnMyMCBBOlx vWBNpHCigvDmprL9nVO GgJ32yz8GOw3AzIJ9WJ Bx8tqCghmgynC5dCZPj tyStGUwpgOUzX0acJzv jZjFcZnMyMCBSZXRyb3 Vmwxw1t70lgO8dFObmQ hFkEHhuCzGgZ5DpLSNB cIh1jAEiUGUaz3J7OGW 8rGc9NG24RN1ffK6vyN GwEIByr8trALBou9V9L HWqh9PilzDiZT7saD3o VRKjq87hFF4tIIHhKOM vIDEuNyBjbSBpbiBsZW 7qoAbvJB6qJMLgPINxa SBpbiBkaWFtZXRlciwg YH25uBIyfGtys7BxmAs 0dGVkIGluIEExLiAgXH Hfd2BqH0G8UZVwZNdxm 5nyDPZmKOgst9VuHWdL JZACEP0VUY6sfCK8KDv HG6LGG5wAgYHhSPX2sL R8RDKRZepsyJZ3pVT3r J46PURpHOGkwYBlGJut O479ERU0FFPgCEsee2r eOLZqDIhan7IzLBxHVJ HISP4AHP7oeDA7KJiVK 0VORHwyMTAxNnwxfFVT JFU3CImynUyniLl3r2d kwQJxb3x5CXmaPYX3rY xwbGFpblxsdHJjaFxmc tDcRL1KJLCvmBKUTVG9 EV7xIPk3EGdrEITjH6X bY4GvsmDmgREiXPQqee Agl4jdEGL1HXFhlFZjw WJaKgTsMagnONS5HBQj QPgaZH2TEMPtYNC0TDs ghN21zCAbYY9FRYBxDJ qvUYZcDTFuanB5PFZpy ZGcZMB4SS5ixEhrnESr atovykK6ZV9IpJ== Disclaimer (test code = x4krbDThKKImdSW2MYF 9868) yHNLzl7pvq9BxwIBooC HxOCjrvSFeokYftg63m PK8nO33KH0vPDFiDpF9 NPCkcjD5Zzt9SZMiRGG iwHZaB219d5jts1jjcn LyqIJ1IIJjGMImN2BqR L2xTRVwtMZwD70asGYg IEV2ALDjBMXqaDYwQJM uWVV4NBUqwOGsZ2fhJV AoDO2wblpcAMjgKOxiC WKmfCE1PISbwYSuE8Qd POSnXWbrOVQqbiy7MhI bEd8vuXBqsMcgTSseR3 jhlB8uClA7VYunN6lan W1wJZr7ODpoTFIdbXG3 xtH8ASYnyWBuP0CakQ8 vKYMcWP0plyv7i3vnIM N3PSzsGVUaYrI3ruB5Z DBccGFyZFxwbGFpblxm ckX2ZPQbHKZgM46kQPQ 9ADH0vvKdRRWmqvFmWH PqCDZiIY4soJDjMNDuH FRhYZ1aDYA8ZIiycKKx TITxVREkINWhh1WkPI3 cCSVzvFNcRYZ2NQZuz7 FqA5EyPBW8ZWSzeH0sJ CBieSBVVCBNRCBBbmRl ggHxkoZVACHya8cbR6u aRG4mUZjbOr9vZSFclp kgTWVkaWNpbmUuIFRoZ INhTVRsv4WoCBjmgeSq ho40UHSiJI4vl4LhZ4h ncXBjvXg4PUZwAZIbWU Wdj9MrSUCfbn95BUUqX xnbfUqmUCAeGz8oAa3z XEOkqaXrQFA7UvUSEO6 elgcuzQPqyDakqz2yFK YgYXBwbGljYWJsZSwgY 73lmVVeyCVuc2XbKFHi OGNtVDgyGSHixwUjy9r wc3EwNWJjhCXakBYxFL CrOEHtBAP1oHGfbJgbF lxwYXIgTWVkaWNhbCBu STHha9ZrkCixtvOhjXe euOZazWxrsnHrj3TqeC byWFsknSWbu3dam5WoO 9rbdBjhCHrlh5EafR1h NRJcMBHyk4SgYOMiVKR hQMTflT4fDKSlaCXuh5 9kwS7xfDeiZTPuj6wmM 2x3p23tkVWrLjMsjC29 fx4lvLStx4Y0dIywEAZ 4iHNcAQBmDg3rZTNiZT DvWLX2NJAiMBene4Gmu eJtf2EkrFUuIDMmjoHd ugOtq1ynp0ulLmm+IFR iEPFnnS37HHI1bF2pXJ IlxBHqo5J9OAzgnfWsm fXujq63MZJkTXLegAhg fzHhexDeRN42HMOfszT zf3PsFXbrFKDsZTJjCI M2gTRklyZeWYJ2yXIch mcgZXZhbHVhdGlvbiBp uvW8cTpaODVmFAClnYG uLlxwYXJ9 [facility] 2021-09-22 21:43:34 Test Item Value Reference Range Interpretation Comments Addendum 1 (test code = u1uveYKsDIMlfSV0VAU 37) zYFWwn0zjm6PnhWVwwQ EnFVdeyKUaodXzwr63i SJ9mC48BB6qJTSiQpX2 FGQodhW8Nku0FOMwUZU vhIMcC336l4etj0lsjd AkjQR4pFyyQUUwluslB bJ8MHsxNOPnrbjyHCf7 YTupKQPcrVZ5VTKzaGK bZ8YzUMArQJ7ycjw3XD Z3CShmWWUiGcA0OECge TXsNTWjxHckOCkyp391 HXR3XlTwAIDtonSfkQy rdW5oJmNgSOHUNBIzJV vnmOAlq6dgs6PgN1trr PgiaHL2RdVKsGYcODAk HF98CCPaJY7jUCv2gWY la49oEFPnnOdqTCEyMI Cch8KfnDn8SVAqBfQig fPmeD0oqN1eMFXbpTKu lG35NW0zvFI0SSkrHES ccGFyIFRoaXMgZmluZG ggRaUvk94naARykaY5q GUgcmVuZGVyZWQgZGlh N23eo8jxRgLTGQWmlDT jDN5rTZThQPUvzWDlvy dyGNQJOIZmQGVjdNb2v HF4MNC8NETzliQsbwQf dWVzdGluZyBGSVNIICB vm3TcJOweRIVENFZpyZ UvhPYlwpMid7GutMbmr avgsE8wHzYrkeKrg7A5 KXHylS8lVNHfETyuRjE vSW75FEHvbwAhHdtqXB JccGFyIERyLiBTaGlta B6aCUWtEJvmujNnUYYu NSycBVE9sUrkLGWub1K sVO9tXKWncoB6pcJan6 k1uUF5iPHmAYkvS82yw 1amKlxnDVZ7 Submitted Clinical History a8ntjCNyALDwc5paEEG (test code = 17138) mbGFuZzEwMzNcZnRuYm pcdWMxIHtccnRmMVxzc 4TgT0EwOqPtAAimkqIf XGRlZmxhbmcxMDMzXGZ 0bmJqXHVjMVxkZWZmMH kuXt9xkSElpPlyMzZuS MXbl3ksddTBqtcmqOh9 x3zzODHsZfO8mAWwLCw gF6ryceWkmNKaIMRxXI s8yH17PYFixJ0wwRVxZ XfckuJrLgT2YOakJOOe EsL8MAQgiFHsRCZnE7u yZWQwXGdyZWVuMFxibH EjGVA4aJuhr1D7kUPdb GVldHtcZjBcZnMyMiBO b6TgCBr0qIwzN2JmEKJ bUwD8aJMbRXGyCQgbPO MhITHtwoX1aC30PHozw tM7uPHtd2Jwa51yj962 aZ1jbLDmJHJ3EYCkREJ gvJZfSHBkLQO6CYWcbU VaA6urYWXeTS6ggjpvW MomJLkdHURyuUQ3NHHs oMDmU5QkFRVsICbgKVH xduw3FlGeQt9dnLGwyY fsZOqba2eyx9mudOEsM up3GJSlYnMnRcwwNCxf l0Ozf5tdSNIzid1bBXR 8uFUtjUqsi6S7vXSrWT YhuPEdjzCzOCSvLkM6W XuxER3klj19JDSyZUG4 rz2ofJJrrPdixjVmvGG lKAikV8YwKKMnn567TO AyB8RtYFWlb4I5raTuA gBnJIDnwJO3fwC5KMTq BZu2qBYdrjY1czXndST yE6kbcC8zYIXeNA8kwl zgf4qbHExpSEkuQUXob WT6mwE3UNEuqQXpV8Gs aP8eSXXtWMyhCXTqwzv 6LrNrXf3qjYEnsNcvEK xzYmtwYWdlXHBnbmNvb nRccGduZGVjXHBsYWlu XHBsYWluXGYwXGZzMjR htJwchUjmcL7dWnDeHa VfEPgzND3hQAYwU1ctz WUfNDWsANAlB3olNfUd uR1seIcbQDhmioGoGFG hbmNlciBvZiBpbnRyYS 2dUrZvqAkvGKnxz9SqD W6iDYcIJdQaMD3qbHHc IERpdmVydGljdWxpdGl zIFtLNTcuOTJdXHBhci BGZXZlciBbUjUwLjldX ARllgQDLCS1UHhot3Gp UNY1HRBeYE58MOQjTI8 jbY4tiSErGXMfTDzYZY kuMDRdXHBsYWluXGYxX GZzMjJcbGFuZzEwMzNc aGljaFxmMVxkYmNoXGY mZLyrH4ymPfIcVyFlIi mkKYH3bN== Diagnosis (test code = 34) m8rqgANuIJBvlDU3XGV rQTGzk5umz4OlySPtuD VeRJxovGKcoyFanx24m TD6bB03NX8vOINxRuS6 SOOolhC8Qhy6WBIkWUA sjMOaX866w2mmh6mkrs GqjJA1fHqxRJWhuuzvZ dH3FWsxCPIojgcmMQh8 OIfeQTUxwYV5EOTqeGP sK2JzZPEjRC1vhjv7UP F6OHwlTOLoLrS8CHRwx NRxQKEphHpzWItzp902 QWY4KfKpYVEmvqUxeIm lvO7eTnOeLSMFfE7boN Sji8FxKUSrYJE7NUSwa LYngHCiyJRptbZ6zVkh gJ5iA7EbH8KuHAMxNCC vcmUgbmVlZGxlIGJpb3 BzeTpccGFyXHBhclxsa XhiIUichI21CrWoLTeX RlVTRSBMQVJHRSBCLUN FTEwgTFlNUEhPTUEsIE 2UWGQEVCdXFdsXF7TuC 4CQN3nGCWSRCJBQNZLR UG9GLPOMGO0EWPXyFx0 ZDGrARGhTP3NrMSvJVi 2RZBEOXOjPIVQmN59sc WVudClccGFyXHBhcmRc cGFyfQ== Comment (test code = 9835) b0pamAAtFDXwkDQ5VRU pSZYul9qwy2DhlHCajU KhBUfcpALxotWouz70z UB0cL41EA7wFXYcMnF0 CDUkviB9Vij1FSMuOLJ ixUTcO785a9orx9igcl BvnDT2XHTxLZM0NUhyK ERbJSKaAou9PJQ9P8ny ZWQwXGdyZWVuMFxibHV lMDtccmVkMFxncmVlbj XtLvl8UNL5OQn1IDQuq GVydzEyMjQwXHBhcGVy jMO8YVOyJP6pvbggZXd nLYciNDQotzS6CNXqnQ KpU9EmWWIkWK9nnoswW YP7WFvrRFVkAGK6ClGh QRGvr1Qipqk3BpYnzRA yZFxwbGFpblxmczIwIF BlciBjbGluaWNhbCBub 3RlcywgdGhlIHBhdGll ovXyqHSgADE9Ib72JDA oDM8hOJXkFU7dw4r4qD 65oIauGjSbdPLld0Kpq QfdgD7giIEfMjYhMLjm D83zxmO4IEU5fK6dmJD pi9TzeOHzOHqrhHznIY Mhm25trhFqSULcPTTdE NIkIAKviH0pKNBWDJMn zrNzeS4kT2tkNfPyCE6 wouH9fxH4CZVlxXRjgH W8rTJbakNuuTMqnkXei ZPzUTSbTOepaSrbhR25 t5w2PD7fvxIwb9WcxZl lIHNwbGVlbiBhbmQgYn Szu9trllR1ww3gSEQep J0rWYPjAAd4zTIgIMSs rl3xQFUcuD3xrTEoQJM byotxGfHyBUfodV7qv7 beTtThPWB8nM9vupSuj F08IW4fFEYsPF3psBUy FHYmPbQgQ87vqbVyYU7 sSCd2bGHjAL5fBNBip6 w7bXAnwgEnbNAmN1S6x mAjMRZpFwFySK1lerHf YnkgYSBkaWZmdXNlIG5 vg7EcTJC3uHBptOuqjV kmmIGcoS2laTy3xtS9G N8iHJuvNPv3aHEvn22u IGNlbGxzIGFyZSBsYXJ aXMD1jUShXGyqhhRjcP xhciBudWNsZWFyIGNvb jIwhURdFUB6QCTgW6Cp UCIhK5sqy17khPraKYZ 6iMVjARZgVWR9AF47PK appINat7KcRAO2sYWpg B8gcYfnbB1waTR6mXBz VSOqnruoSFSkof3onD4 sauSmR0CozWQqfNKgnF LoJJ4mtTnbb6VzJVAim QStL9LxT8ShbDQnh8cv ivAykWk7rTAyIVLchZQ zwQQznAToBJ6fsRzcIJ 5tES2hFSUdLNRpEGFtn 8NtmOUud0EkD8v8d4Mb YXNtLiAgVGhlcmUgYXJ bAV22sEIbu3ZtICLmx1 T5s4SmSrNyo7DhSPLrD C2bUGZtESY6PEFwEXZq sRBuyFayIAVzB6XrNYY hRIDsOWXqGOpeZC6qCZ NvbmZsdWVudCBuZWNyb 9Ugeq2aMHXgjvilAEZf OF7pcU8ubUctqT7fpUS taWNhbCBzdGFpbnMgb2 5xOtoaM4jyLMQjr1tcx xR1cTI2VEQaYMXyHB8l bGFzdGljIGNlbGxzIGF aMQOea1HamQm6UMJap9 DzY5ZxCVrdYjLXJTGtB QMQFE05JOFVVS2vU3yE RjQsIEFORCBNWUMgKH4 7TZMmPaCnB6ZtzRRmat MoRZTtBKlcRDXkH3Nug OKnTVZpMUKql0k6iUPh IGZvciBDRDMuICBDRDI zSHireAKdh1L3ZVflNY erJ2yrbFvzlDFxxJOwg Sjvm5RpsNFfyNQxaFAb FWDvRKSveQWgRS8jzje 0hAPrC8SngUWsHLJjl2 0ph4ToVIYXaAJaM2hgK jcgcHJvbGlmZXJhdGlv biBpbmRleCBpcyBhcHB cz0eziZK9WOq6NJumQA RiLwRoJR4qrERxgNqwI GNlbGxzLiBDRDEwIGJ5 IDicbKMss2fgn8TmW7s phSjxvSA7OYpoNYQael RpbmcuXHBhclxwYXIgR ujkylWjaJLhwXX9kmvf CY0jzCrtqVJroHBuQw0 lnTDxZI7oFWYhuhF6fg CuquTif2GwT4ntCC8vn 4mur4LwEF3lCZGnzvBb yzAfUb8jVHpsCEVlkMX pVRRkx47sYWLfa5h2yY ZlIGZvciBDRDEwIGFuZ RNxs70cmUgzoHPsi6Qr iULgjBprnWBlJ7voaK7 uQRAFbHAof2Trl0UnGG Qjz6SpDXSsvHYhenVrs 6L4CJBdmrDgIHDszWva mjGcRPJtUJ2kcGdieEF sAMO7JXmbuz4ctHVzIZ ZlniihNmMwRFrkJQ45K VUlaMnsQmjxFLvmK3Mx UQUsIBLlUDnva8O1bBJ oZf4qWYEiV9FfeBDquA 6phB6lSSYmf94qe4ReV CBvZiBsYXJnZSBjZWxs lhpaZ44qv5oxpHNjkKX 8pBWsNKYrMtH2c8HskU HsQ4FfZr5nXRddAWm0i JEap85dMoGKeONvyJ1p sR2oxAqnso75dTJfYqC sgO3bkD7jbvNbmIJkd9 K1XHQbK6DgkMkuLVnwD 7RwhFJcQVUxG0ImqK7x sJzjOHwvuSMke7LtKT9 ybXhfKJwcTHHax6EihG 4gPYFjUTVnYBWTOY5sQ PJwE31wyFDqaCExq3dt aWVsZHtcKlxmbGRpbnN 0IEhZUEVSTElOSyBodH WhfdgxU6M4Ec8dYE4xN 3IaEj6rtX1ovRzyX801 HiC6EJQ1APf5T583PWL tMFJkyCOdsPr6gYwoUi OlFikxg7XhvNNqRvJqL DD2IgQjVykdJPbiNxTn OTY9iMbfCAruIELbmHT wJCFEQ4aaf1J4PDaaxz Ncg8IuMMfsNWnKURtlY VMagJBmlbC5qB8bhdZp HMMzWPHiNV6pvyVbcXO afKMoZSB5yOLtIKYsUf sqwGE4UPV7lM4aKBPkl wGglMCXT7ycDDqnFOXx bmQgXGkgQkNMNlxpMCA gcmVhcnJhbmdlbWVudH HzRHFtVGZeKHYegF8sz GVkIHVuZGVyIGRpZmZl orQfwEBkb1LmktitEO2 pMYKdZP7vsV2enqNot0 B4IQ8dlWVzc2xau1fjD LJct1UdqG3qRQKvPZTt v2OolEVnJQMsuamhByQ ccGFyfQ== Gross Description (test e2tpqQDzXXBafMSARHy code = [id number]) wMVxhbnNpXHNwbHRwZ3 MdgnfxEVfzMG3iKG1dt ZjroGFxtKKuFV5GIRLr ZmYxXHBhcGVydzEyMjQ wEWParQXjwHN7VAOvME 1hcmdsMTgwMFxtYXJnc zR7QESzaUTgP8CkBSDj WR1oezluMCT0DIgvpO5 hemMDVgemGl3uoYGwvS tcZjFcZmNoYXJzZXQwX HBsqTlxOHBcEUa3fB6J UtggY47wx5I0Box4ZBJ qRVPnJ6SfEL3aHKMggA BqI90DCqvlQOU2LVUMN smbNJLdEH5Ai9esFHYy lHKnEBS2ATbclMVzRZF wRKVkUHj5LYUtKSexcF OzFE8qwOmyHgskmGwhy 2VjdCBcXGlkIDUxMDAy XJzfYNOpIO6QIcStHEB sAIK5JMAlKGg9XIx2CZ 2WXgTuBYRqGHV6KdD4A HGuADs4EHekTP1CXHQx EOyiDRx7GSVyCIVvMlm mPAo6IXLzFElzMAWciE FsIFxcZnMgMTAgXFxmY nRkISPqVVewoxD8WXXq YWluXGJcZnMyMCBBOlx qFLLmDYjedIpwpR5eSL BfJ05os1XMy9ObOC7WS Xe1xyMndkdrpG4yAGRs ydDkIByifMEtD2gsRoy jZjFcZnMyMCBSZXRyb3 Esuid2t90iwM8nQMzjF mYsUZuuXaTcD9GxJAFS dKp9vRGoVWHfs0B2RVD 8dFf5EQ96BR1oxR7nlU LsEUWpg8ksVIMao9K2G TBux0VtajZfHT2brP3l WPVln44zRE9gRPYzHGQ vIDEuNyBjbSBpbiBsZW 8ykRsbWK2nUEDrCOEtc SBpbiBkaWFtZXRlciwg YH77lMKphPrsa1TqkPz 0dGVkIGluIEExLiAgXH Jnt8BlU0T1VCBoUOtam 8ooJKXiMZxbc2QpBPrD CDUSYO3ZEV8uvLY9BMn ZF5YUZ9bXkSIiQQD8uX F8MUOAHndwtRR2yQE1v Z29CSUcYKEuoLAlXIoh X948JNE0HJWaTGyti1r bBSZcIZuui5OxUWnMZG LSUM2RYP2bdQT4ZNsSQ 0VORHwyMTAxNnwxfFVT MKU2OAzgfNvviRm7e4j ipLNub7w0WHfoWUZ2cN xwbGFpblxsdHJjaFxmc hEhSI9CCZDojRKINGL0 GI5xKSu3INqkZQSfE0E yD0YtuzFsqWBlKQChgd Cug9ziLQY2UBXoeSAot HBfCyOaPzqlYNG7NEOa SAimNJ5EHRKmLNG1LOn etP33xCTlZC3YDJSpAG lbDAPtEURdnnT7DRSyh RUsCDU5UK9irHcbzPCt ywhayvN3QA7FqZ== Disclaimer (test code = k1yyiGVzTPZabCZ1KYH 9853) qVOJpm2pbm1BevRFibD IfRTtppUMgtoVtce25v IV0nB93FD7hUFZgMgP0 REGaofN2Yqe2CQMvJYK xiTLxY144a9ize2qzwf OteGF9HIPhVFQvK3KnN M0sUWShzTQzZ18eiVVx LFM2VRZzHVGdmCVeRDA iKNL7LTGiwSTaH4vxQG JfTC3xvrrxWSqgFSdcS PTqnCC8WHGflZCyB3Ca YIMnGXzhIZQkjcu4DfQ sCi8yvLYbjHvpPImdD3 xixN6oPeJ7XCmdW1uvm L6hLIf7QLowTTVuuND2 xhS6DQXmdLYdC2VzcW0 sVNLqPJ6ebgs2b2uoHQ X0OBbsZPRxHsT3adV9Y DBccGFyZFxwbGFpblxm zuH4QPPePTLdK30bPSS 3DGO8foBsBPCvtnYxSD BnJNReYJ9lqPRbKVHeB CAoSH0iELJ2CGmhcEQi RLOcIGJwWBIqt3XxCF0 lALKxfZMvODG4YQRsg4 AhU8TuKUT1ADUppH9nI CBieSBVVCBNRCBBbmRl cyWwpdUWKYBgc4juS8p cOZ9dAEqfFr1nDPCzen kgTWVkaWNpbmUuIFRoZ FXoMSRkh7RgSEcdvbKv sw84WKBnDO1me3KvU7s cxOYqnQa4WMXfPPJiNB Ukz9MxNMLhqb79ALCuR fuodCwhWTTqIf4tZi1z GLMrhjYmUGB6CbLZED5 eiruomLLzoAgcda7gWZ YgYXBwbGljYWJsZSwgY 27ivQSgoFAzv2WfIJVa JCTtZRlmRQTtqkHfg6n zo3QrKDSmlCNlwPAmRE UlMGXwZZH4oRRlpLxlD lxwYXIgTWVkaWNhbCBu EYWrf4TvcQcrtdQabPr gbPZtfYcmmnNbg4ImcI tbCFqflCPue7yke5WnR 3eypXxrJQrsy9MktK2g DVWhHECit1QxRZXxQLF vTGQmoI4dSIRnfQPof0 0vzS7kyFmjGYSpn0owJ 6x2q20gbMWkMwAmpP89 fo4neJAxy1V0sHkoQVS 1gWNbUNHrUk7jFRPhFT PpRFY7BGXaYYloc6Asg fWkg8DsrDIpTDAglfKy hhHun4dum8xwSwx+IFR sSBPcvU09LDC3sB0cQH WkzNLel9S0NJnejmUik jHqcw94KVKpZCSoaHnr lqSrgwVwOF93QVJwvqI oj2KsAQmiQBCmVTHiBN L4eYIsidZqFTF1sFKpb mcgZXZhbHVhdGlvbiBp dhB3xTmeAOWzHIIhqRA uLlxwYXJ9 [facility] HIV 1/2 Ag&Ab Path Interp 2021-09-22 01:16:07 Test Item Value Reference Range Interpretation Comments HIV 1/2 Ag&Ab Negative for Interp (test HIV-1 antigen and code = 9394) HIV-1/HIV-2 ____ELZA OCAMPO MD - antibodies. No [id number] by: ELZA RENTERIA MD - evidence of HIV [id number] d Date/Time: infection. If 09.21.2021 20: 16 PM CDT acute HIV Transcribed Gonzalez e/Time: infection is 09.21.2021 20:1 6 PM suspected, CDTElectronical ly Signed consider testing By: ELZA RENTERIA MD - for HIV-1 RNA. [id number] on 08.27 20:16 PM [facility] HIV 1/2 Ag&Ab Path Interp 2021-09-22 01:16:07 Test Item Value Reference Range Interpretation Comments HIV 1/2 Ag&Ab Negative for Interp (test HIV-1 antigen and code = 9394) HIV-1/HIV-2 ____ELZA OCAMPO MD - antibodies. No [id number] by: ELZA RENTERIA MD - evidence of HIV [id number] d Date/Time: infection. If 09.21.2021 20: 16 PM CDT acute HIV Transcribed Gonzalez e/Time: infection is 09.21.2021 20:1 6 PM suspected, CDTElectronical ly Signed consider testing By: ELZA RENTERIA MD - for HIV-1 RNA. [id number] on 08.27 20:[facility]Ab Path Interp 2021-09-22 01:16:07 Test Item Value Reference Range Interpretation Comments HIV 1/2 Ag&Ab Negative for Interp (test HIV-1 antigen and code = 9394) HIV-1/HIV-2 ____ELZA OCAMPO MD - antibodies. No [id number] by: ELZA RENTERIA MD - evidence of HIV [id number] d Date/Time: infection. If 09.21.2021 20: 16 PM CDT acute HIV Transcribed Gonzalez e/Time: infection is 09.21.2021 20:1 6 PM suspected, CDTElectronical ly Signed consider testing By: ELZA RENTERIA MD - for HIV-1 RNA. [id number] on 08.27 20:16 PM [facility] HIV 1/2 Ag&Ab Path Interp 2021-09-22 01:16:07 Test Item Value Reference Range Interpretation Comments HIV 1/2 Ag&Ab Negative for Interp (test HIV-1 antigen and code = 9394) HIV-1/HIV-2 ____ELZA OCAMPO MD - antibodies. No [id number] by: ELZA RENTERIA MD - evidence of HIV [id number] d Date/Time: infection. If 09.21.2021 20: 16 PM CDT acute HIV Transcribed Gonzalez e/Time: infection is 09.21.2021 20:1 6 PM suspected, CDTElectronical ly Signed consider testing By: ELZA RENTERIA MD - for HIV-1 RNA. [id number] [facility]27 [facility] 2021-09-22 01:16:07 Test Item Value Reference Range Interpretation Comments HIV 1/2 Ag&Ab Negative for Interp (test HIV-1 antigen and code = 9394) HIV-1/HIV-2 ____ELZA OCAMPO MD - antibodies. No [id number] by: ELZA RENTERIA MD - evidence of HIV [id number] d Date/Time: infection. If 09.21.2021 20: 16 PM CDT acute HIV Transcribed Gonzalez e/Time: infection is 09.21.2021 20:1 6 PM suspected, CDTElectronical ly Signed consider testing By: ELZA RENTERIA MD - for HIV-1 RNA. [id number] on 08.27 20:16 PM [facility]&Ab Path Interp 2021-09-22 01:16:07 Test Item Value Reference Range Interpretation Comments HIV 1/2 Ag&Ab Negative for Interp (test HIV-1 antigen and code = 9394) HIV-1/HIV-2 ____ELZA OCAMPO MD - [place]. No [id number] by: ELZA RENTERIA MD - evidence of HIV [id number] d Date/Time: infection. If 09.21.2021 20: 16 PM CDT acute HIV Transcribed Gonzalez e/Time: infection is 09.21.2021 20:1 6 PM suspected, CDTElectronical ly Signed consider testing By: ELZA RENTERIA MD - for HIV-1 RNA. [id number] on 08.27 20:16 PM [facility] HIV 1/2 Ag&Ab Path Interp 2021-09-22 01:16:07 Test Item Value Reference Range Interpretation Comments HIV 1/2 Ag&Ab Negative for Interp (test HIV-1 antigen and code = 9394) HIV-1/HIV-2 ____ELZA OCAMPO MD - [place]. No [id number] by: ELZA RENTERIA MD - evidence of HIV [id number] d Date/Time: infection. If 09.21.2021 20: 16 PM CDT acute HIV Transcribed Gonzalez e/Time: infection is 09.21.2021 20:1 6 PM suspected, CDTElectronical ly Signed consider testing By: ELZA RENTERIA MD - for HIV-1 RNA. [id number] on 08.27 20:16 PM [facility] HIV 1/2 Ag&Ab Path Interp 2021-09-22 01:16:07 Test Item Value Reference Range Interpretation Comments HIV 1/2 Ag&Ab Negative for Interp (test HIV-1 antigen and code = 9394) HIV-1/HIV-2 ____ELZA OCAMPO MD - [place]. [place] [id number] by: ELZA RENTERIA MD - evidence of HIV [id number] d Date/Time: infection. If 09.21.2021 20: 16 PM CDT acute HIV Transcribed Gonzalez e/Time: infection is 09.21.2021 20:1 6 PM suspected, CDTElectronical ly Signed consider testing By: ELZA RENTERIA MD - for HIV-1 RNA. 89008 on 08.27 20:16 PM [facility] Ag&Ab Path Interp 2021-09-22 01:16:07 Test Item Value Reference Range Interpretation Comments HIV 1/2 Ag&Ab Negative for Interp (test HIV-1 antigen and code = 9394) HIV-1/HIV-2 ____ELZA OCAMPO MD - [place]. No [id number] by: ELZA RENTERIA MD - evidence of HIV 39262Iiyvcsy d Date/Time: infection. If 09.21.2021 20: 16 PM CDT acute HIV Transcribed Gonzalez e/Time: infection is 09.21.2021 20:1 6 PM suspected, CDTElectronical ly Signed consider testing By: ELZA RENTERIA MD - for HIV-1 RNA. 10792 [facility] 08.27 20:16 [facility] Fssftmcrwj3477-84-59 00:47:01 Test Item Value Reference Range Interpretation Comments HIV 1/2 Ag & Ab, Non Reactive Non Reactive Performed a t: 4th Gen (test code [facility] = 9280) [place] [address] [facility] Qhljcapyst3152-19-13 00:47:01 Test Item Value Reference Range Interpretation Comments HIV 1/2 Ag & Ab, Non Reactive Non Reactive Performed a t: 4th Gen (test code [facility] = 9280) [place] [address] [facility], [place] Stkpcrgbus3684-70-77 00:47:01 Test Item Value Reference Range Interpretation Comments HIV 1/2 Ag & Ab, Non Reactive Non Reactive Performed a t: 4th Gen (test code [facility] = 9280) [place] [address] [facility], [facility] Aqhvhloszr9507-46-59 00:47:01 Test Item Value Reference Range Interpretation Comments HIV 1/2 Ag & Ab, Non Reactive Non Reactive Performed a t:MD quan Gen (test code [facility] = 9280) [address] Antigen and Antibodies, [place] Qxgfoypinr1155-97-57 00:47:01 Test Item Value Reference Range Interpretation Comments HIV 1/2 Ag & Ab, Non Reactive Non Reactive Performed a t:MD quan Gen (test code [facility] = 9280) [address] Antigen and Antibodies, [place] Jduvzqayde3775-75-71 00:47:01 Test Item Value Reference Range Interpretation Comments HIV 1/2 Ag & Ab, Non Reactive Non Reactive Performed a t: 4th Gen (test code [facility] = 9280) [address] Antigen and Antibodies, Fourth Yapixmurlt9281-14-18 00:47:01 Test Item Value Reference Range Interpretation Comments HIV 1/2 Ag & Ab, Non Reactive Non Reactive Performed a t: 4th Gen (test code [facility] = 9280) [address]2 Antigen and Antibodies, Mjrbhjidzt4269-77-72 00:47:01 Test Item Value Reference Range Interpretation Comments HIV 1/2 Ag & Ab, Non Reactive Non Reactive Performed a t: 4th Gen (test code [facility] = 9280) [address] Antigen and Antibodies, [place] Shmqsxtaoh4145-39-77 00:47:01 Test Item Value Reference Range Interpretation Comments HIV 1/2 Ag & Ab, Non Reactive Non Reactive Performed a t: 4th Gen (test code [facility] = 9280) [address]Cyt[address] Image-Guided FNA Otkkedbqaznkpk3956-15-96 18:28:31 Test Item Value Reference Range Interpretation Comments Gross Description (test b2frrYYlAWEeaLN3OTGy code = 8684490919) CUXwo8qeg6PvbNOykAPt LHwywEAzyqMyvo12sMV9 iJ76OD0pGLZlMfM7ALVe yaD5Uma3QOJhSAIdmSFb E325s8qri3dnffSicQX5 LQPdYJQpN9DrVD7tDVGi mKYnI29fvEOpYQR3CEGa AZQdoLRcWBRbRZH7XKGs mTIhI8hpYQCrAO0bhgah KUudTPxqDQCdlBW0DSOv lYQyW9WlUQCvBRotUWZw lsc1JzZxQh1jsGMbvIyn KPatERSwf4rpMJAkkIHr CUO9IJczwCUbPUYqLYDr PRv6RNPsQSmxjEFrRP2h tBpoPppndNevf8HtnZWk XGlkIDUxMDAyIFxcZGIg C8JMUTUlOBFfQvAcTXYm MKl3DPklS2TCGZBzKDR1 JWgbGaC4MnD5QUs2EZZF Jh3fESP4WACgPYC8SGC0 UIB1VGIlWQEdOhSzPNCb IFxcZiBBcmlhbCBcXGZz LXMcGMozJeDqOGwsP76s fZfaoO3dNjhlfoOwZFF0 UCVtynzaXVidJfSdS9Ug A3svER1iHREep2S6tpLq OlxwYXIgMiBEaWZmIFF1 mIw3KNAbNMGbQVB6ZUum OTMmjUUvf9xsVRWgDFIe mUxwAHlvfc88AFB8m4vw aWVsZHtcKlxmbGRpbnN0 PTjFENHITStDWbNtDU4l HCnHA3KCDCvUFpzvMMW7 LFuhzHM2d7smcHMgp6z4 CMaxBPE5aOUdnBrtgSg8 RMDkp9UvzEMetCCftGFk vUE0OFXgFTqum3pwQLFf FEcmg0NmKQmDCCKWRC0S AB3pbLE6O5sCLJPOB5fW nRA5h0lziUNsa8d3BAyq CKM3oCUeh90glXkwTgwx kYT5JXnfItmvnD5ptPBR RCTNHsnYKqwmwrCqDX4P FQgJUD4RlJF7j5ajsNOo r7g4SBxuJUH1kXtdwAEs luvvdy98ZUD8WPIpPzEh H2UlNOUqeKUwFLwfDzmr tNF9AKmjLtkavG7mtVPQ EWUNTggVOkhjzoGoWH1V DJZEKS1BpIH8BlMhwYG0 RZ20ROJfOBAreHBeQQxi N570JOXoCDfuYCSzKhVo M1KkMQRpwvHSBA0QMBQw xqJnAHLdu2ykM7b9c72s dDJ0SNIianNwCFGeoRld MlgvM1xpcZGcMEVszKMo FFjqQKQQhEWxYXSnbF5o Cz7vdCXqnU78BBB8SjQ9 BhCgTqZFEMH1FRZvbKYv EBWmgyISiIpvNcR1BYJu IGxlZnRcfnJldHJvcGVy mNFbslOzvMYqBFMtl5qe rZvrs3DyhASyUL74UHSt fGHuBHR4KK7rsRiwYRUk kxOZOJOSCBfAS2JwZRMB YWQKNWYtAgVFBV9nNaQ2 AfH7LU08IitgZIEICXVZ IHbJBC3AOWTIORXQMW4P VnRdG4iGJSOUHvExTBCQ MMKAMKBuGvQHLC2nVjr7 Ksyuq0W0V6dJHCTSCvRk RDQEZVSSVAEeWR9ASDDF UISLIE8WVRVQD82WNCLG RKYEH6SNO7yHQXYmw7Gy gIvqLgN6QfPwZZ2yXGvS R5DIA1aSQWFxKWFDYJKR XXJxNM5HLRsKWU5ZTASn PQRMADQOFUFpTdFBRS0m MRqMIC7WFOSxDTUZMVSC VNHnJO2LMEZJTU6RQXHR UMJNQ57VURQBOBURA7SP E1eAFLQZDDQCDlSHHvRL AI3LRBBAMZOIPM8JIrC5 Major Classification MALIGNANT A (test code = 9839) Diagnosis (test code = h7wshRChFRDkmDQ2VKUg 34) RNXxf8fbj4YuqIJgbJId YLbolXFxwcBdnl71rBX7 eF39OS1rHVSvAgR9QPVw sfW4Ndc6XTDmVBNxfXCq Z603p2iqv5dztrRvoMQ1 MCWwNMMeX2XoYX7pEMIy oASgY45yrLOpVVH1NQEm RKPysWHhDSNcIXX7ZEPm pGPlW1obPZLpWN2uglkw XRjzADhsYUCatLQ0ODVs lMOkG4PtRLTeOJvnWZVg ukw3FsEzWk3vkIHdhOsy MBdgF3fxuF0mBsC9TQln H3bexG7nEDe6IIwpOCJa bLE7whZ2UDWqiYVgW0Ia mP2dJVPrTE5tcyx8t5kx JEM1HKttTCOvKuY2ddV1 NDBccGFyZFxwbGFpblxm czIwXGNmMSBBLiBSZXRy u6Gssax1r47qfT8yNBef ZnQsIGZpbmUgbmVlZGxl WKOfpEmmBCCmz628TLJc arg6ETImcZGsHPshYnOx FDNORWYXXI7SQVLbS4BI SMPHA3WNRIHLFO0LIELI T93MOOXEAM2CKToTZSpy FRKHB3WkBm1PLHiZSDzL HZLGY49ERTexIMIcS84z bWVudClccGFyfQ== Comment (test code = v3mfsMUgTUMrlWL4KUXu 9835) XOXsu3kmr7QpoREkmXHz ILaedYKbaxAteu08tOH5 jI75HV9qWJVnErO2ORFi boL1Ycz3LPUpBHLjuCAj M984w9mwv9zyceUgyHY3 EUCjKJUzP7FdOU8dGEOp mXRoT18zdSImDOX8MNWa QVVhwFVpGRQgFBR1QNIs dUWtE4pgCPFeLM2cpeow EGyjHVfnTJNpsNL2NKYr qNHmU3OfAURoGQkjOIAh hni2HvMrFb6jkYKzhZxb MFxwYXJkXHBsYWluXGZz HnCbA6GuPQBsDRXireZp nB91DXsicplvFUP8jSDh R6IuWHg7dHKjv0gwHOOg jIhgQnYXoL26GPF3lE6e ZXRyeSBhbmFseXNpcyAo OxGyPmQmKTN7Mtr2OCPz bP04rkJtubSvLzHbqqKj oEVOAJTrpPfaxK6gjCay gWpgxbSiOUNgOGUxr5Xe EMedNTV9DT56vrjcLX1m STQ6RqPyED6tBWe7mUDt b3J5tKWeJBC2mYA7VLzo UDCwl9q3hQHeXWCymcPL CHJ5EQHPCEHjZYXXRQFa HHaomW2wBEEnIOPBTUMr KDOuqrGouY8kz1S7tBrp NQrtaATzRSnjT2l1QPEf ISinBVY7hQahRVPaMRha wEr0TLJxe2RjK3U6ZwGQ cPLwTkfbYNtaX2Zyz2Xr nV7zqBQ8yUWaKOPgczPf TFolR09ed6klDbWduFPy RBAwliRFaPSoz8Bdc7Md LFAaFTXlg89yrJFhAU40 IGNvcmUgbmVlZGxlIGJp y1KbcFMiXhDzYJQyCLy6 ZzpcMy5mXBO2vmNeTYXz HNWnsFLfrAvysq3koXDu ADLwvuoyBqEkJ3BsrWFl zQ1bfgFwGHC9qN5mYGwu SOGdojKplWW8kD2kcEO9 fcE9nHAkCWdhX35cr8su LiBccGFyXGNmMVxwYXJc N4CzTEKcno0= Retained/Biomarker p7gdwQFpTKCqrUM2ROYa Testing (test code = MJXvq6pnp4RxoNRtuKAt 9819) SOmaeGTyliRhmu68sZF1 cL32WS6aRTPtZsA3YWHz akE4Mrr7HKWbTYVivKHj D434x2zrs3dvsaIjkPN7 kCvhDIDcumsdLzP2LPdg XYMopxemELm0ONjpXRPz kUY5NLKgmFWiO9XkEKZx NQ8exmt5OHA2WGavUPId YzK4CRRuoMNvHITwqPir DYyoz690TMY8WeTzTXLb hsKipRyjsK2sCfCtVBPS UjogIDYgUywgIDFDQlxw WQXggIOeJDYpXBCve28c qcmtinUPUHR8bU3mVogx FUSwlSjePD9MZJDOSfhb ICAgNTAtMzAwICBccGFy FL9IRFEPVRU6EGRJx1Ad t9PthCXtxBBoQWNqdlCH NEaxHZP6JXSfOi13WGZ6 aXRhYmxlIFxwYXIgRklT FXUNSRyxOL9oxIFcwSg7 YWJsZSBccGFyXHBhcmRc cGFyfQ== Informational Points k1qpyNWkTZEulQMwAfYi (test code = 9836) KNKvOOFlv9gwKHEdmIOd ZzEwMzNcZnRuYmpcdWMx EPAoHtMop9ilx950uXUe y4wlMNPzNvC1tGHzQMKq cGKcK224OAFdLSmns2vd r1OaQLQivTKwu7Z1HVKN EIyiUHEKTOl6p2akJyYh FcX0yWIcWVfrI9ksisBg vSDiRPZiBNt8vS86CQFr lQ2sgQXdLLvkmyBkMvU8 ZShdYUYkRqA1JJLumRUu DQHkA6ofVAUoAZmsLGSl EFbxbTWhGLG0qObwu6T2 bGVzaGVldHtcZjBcZnMy ZaXJf9KrFOy4vCmoD5Wk IAWbBlG9dENcGKJeHGej LVFlGSLwlfB4fO30MVrq edK6tPXso2Ytp17ff980 mT7olZUeVYW7UCTpIEWw pMRcXEVmRSC4IEOgnTXr R3omXJKpWG0hsyhaXWyz RLgqEKJkeZT9PJIgsCFc X6HaJIKgJFuiLVHerey7 ToFmCt3lnLWilTojWFjt o5fct7wkcCNrNtz4RNZn VzAvZwliOEyio1Kih8tp FDHqyb4wLYY9wNVbqCmu p0V1qNNoAQPcbYAotxMp UJQsVfS8SZlsWN5ixc36 WRBeZWQ5gt7dlMOhmFve llVerPBpGQrpB7AwYCLw m602DUXqV5DkZVOsz3H6 hhDcSwBaGMLmlHJ5xcR5 AKAaIQf3mCQmhkN3wvKi wTRfM9utfJ0mECGkFM0s njdym1ukYEsgFYlpXERd rRS9qvO7ANRevPXaL8Cs bM8hFLYzENrqDLVxedw5 MtPiGl4ofRWonJlnOWyd YmtwYWdlXHBnbmNvbnRc cGduZGVjXHBsYWluXHBs YWluXGYwXGZzMjRccWxc bCgzeN7rYuQeXvFcUPca GK3kBVNrR1myuQJmFECq NHQwN6lfZgAtwX8ceHpc FGwsabF6FBexM87sNTQ1 ZTH1vwCzVWLewzYmAMIb DVXkUB0weVJlMTQcBKYo MR8gLKA5TWpqvTZyJVMf ZDIvAPNom6OdDN3rEQZr uEWbYGF9SBOjd1ZyI5Kk YLQ3VBDjiC8dAWAfrERN VCBNRCBBbmRlcnNvbiBQ TVIhl4lrY5keRM3cMWyg Nu7rDCSupclmGRGtgUNm prOtVOXqHUOcYQQgh7Mw RUfxsyCsqt11PNTsHP4q y9UlZ0tkuRPgcSc4QOUs TBDnTFOxm9TbTVVttx87 TABsDkgdiApgLLBsZx3w Iz1sPCZpsjFpCRK1JoDK UJ3dzadsxANayMjnbj0j XHBsYWluXGYyXGZzMjJc bGFuZzEwMzNcaGljaFxm QuheUiAeBNXnQHtzL3tc ZjJcZnMyMlxwYXJ9 Lab Interpretation (test Abnormal code = 53670-2) [facility] Vqzpnpmnyntnls9984-44-36 18:28:31 Test Item Value Reference Range Interpretation Comments Gross Description (test u3bfwOHrKRFouRR2MVMc code = [id number]) HONcf2ukr6TirJYalLSh BLuasGHpgiQsxj67xDE7 kW81JI5sZOZpEvX1LUAq lgR2Hfm7EIZvJMQoiJJu B614x6bjo8ytgjTjwMX0 SUBtHYIsF0RbNJ0fKMGa kZQlR87zuUJgKWJ1DADv MAVnkCHqJLTvWND5PRYe rCBkA6xgSZLfDY0dtbpq FSioNAdlYIZlzIB3ONSt eVDsT1BaZQYuYHgnUFIm ojo8ZzHfYu6qhJAdzMzj KDviJPVrt5uyIEDjzANj WRJ0MYkkrIBeDJHvHALu CLb5HGPqHYywmIEjBS4i aJvhErvnxGyuh1FiqVKf XGlkIDUxMDAyIFxcZGIg S6PTDEHcUQPzSpHvJXXb ZIa6SQvuC7XEZABmUTX7 BWmoKgB6XuT5AZr9VOBH Hu4kSHA4KICpUOC8URZ2 KTO8QCVhHTObDjMzVCYk IFxcZiBBcmlhbCBcXGZz LLOnDNmaYfNtNKtlA17u tUgyoO4lLiilgwNcJHE2 NEAmnjcgDEdhVwBfV9Pv U7ffVD1iEYAmo6P0xdUr OlxwYXIgMiBEaWZmIFF1 vDw5RJVfZRDmAAV2SQzg HRSiqKTxm9tiSTXaOIQo gGveHDgyop09MBK9w1rs aWVsZHtcKlxmbGRpbnN0 TAhPIUTTXHhDZmEtUZ5h RAjKW1NWGIhZCpywEFJ5 IRrcbJZ5e5ogkVVfx7q5 JBsfPAR0hAHpiEkzjZt4 HPEao8SuoAGysCAroEGd gWU5XBTmBZcka0jpIFQn OWhuk4TiWVhFIDBCQZ5Y EX5taMN2N4wREDXMI2vB oTC6d0dkgJCox9x9HMfn VLJ6kSOuh47uyBfmPvjj qML4LEhmTcbeuO2vlQGS QRESSmrUJxobjxOlIM9F WDiGCC8GeJF2s6cowXVr i8t8DYdzOFZ4fGydiQUa ianacj85AEG8AXElLaUq W3XpIDUznFOlZWzyLpxx wJV8BHqyXclshZ8axCKF INDHWqlFWkbjvmEeIF0W KCWFNY3RyAP0JsVfnMZ8 XT94XWZyTLGjyIWpMEme J291IAVdLVuxMCNjMoKo M4ScWKZimlKQWP8RPQIf jgApLHAxq7izG2s5z99z lQK2NLXxdmByDWQqgBvf MaczE8topZLkBTLqhOWo EFxaARKLuJPnMURpxJ9k Od5vnNSptF14HFI4DxQ4 XjAvHrYOUEU7PUNhaYOe UKDziqAMmEldUcB0PDQa IGxlZnRcfnJldHJvcGVy mEWgqxJsuMXvETCar3ko zEvct8BrlLOxAP95IHBo eDFnCMN6ES3usZutXYVn rdSVAUTSQCcXQ4RkAKGJ USCXSFYqKtYOGT1iTcU8 LrI1RT45DabsPTPXXGNH FZjKZM1DUIVLRWECBX3O MsVsU1tJZDNYRhIjIYXF ATUWBLYbKoOEAH1cDqn6 Foxcf6D4L0qFEIGGEmTs POYXBOQNHVRzIS9RBILW CSHOIH7MTWRJQ86ZDHUR HQDWU1SML0nBGUIri5Uc vUaiUvK8XwAtFU7dUSfJ C2CJZ7qLPCFuPEKHOQUL RSMyGU1BOAtHMA5EGIBe GMCPSDFENDUbNhOHPV9j DWkADH5BWNVdQCFRSIUT KQVjON6YRTLXQO3BDBPI DXYLN85AKVEVEUDYW3MU F1oZJEVEFVGMAhSJVrHQ RL4YTOQXPFBBMG8PXaW8 Major Classification MALIGNANT A (test code = 9839) Diagnosis (test code = b2hcwAHsDNWklBB9DPTu 34) CIIgi3qup6PwbUIhoFFa REhmjCCbymKdgh61dLK4 mI45IV8eJLXdGsN4OKXx mfJ7Nwm0HVZoEGHadRCq M880s0xjd1vncpFdqAG9 HMJrJQBiS1UuKY2aJNCp xIVxQ01ihUYcKMK5MQOc KLHzySEhLSIiLWY0PMFn aFXtN7kiOXRuZY9hwymb KCkxUOzhMWVlbVX8SZMw zKNnZ1UxMWMcAGozVKHd lhr2KaJbRm7guYSocUci QDknF6oxzB0bTcC1RRpq H6nnaP7cKYa6OSeeYGMm nYW7skI0DJYwvERfX1Bz tU1iDDYdXE7gazj4f0xv FMM1SOqcSEXdEoU2dtO6 NDBccGFyZFxwbGFpblxm czIwXGNmMSBBLiBSZXRy z8Hcpln4u15nsF1jQNei ZnQsIGZpbmUgbmVlZGxl ORTojUmuXRPeh851GMIj gru8TYWfsGTgVMjkOtWa JLRNEBZOUH9OHDLeV3EK OZTAH3XIZCYDHF6NUDMP C86MOBFASU5JGHfCYSey OHIPS9MbRg0NQVnXEXqZ UMAUJ21PVFftOJTqQ37a bWVudClccGFyfQ== Comment (test code = h9cxhIPeAXXgxJW4KJLy 9857) XTIzs1nvr0AuqKRupEVu YHqtkWSyjrPkxe54tGF8 tB67CV8vVCEqHmP6NLPh ytR0Izp9VXYqSXSktMRl R611p4ubo3hghgJkwWN3 PUKvZHJoG6KvWZ6vSFKs eOPzK45fuYQeXML8FKQk WAXppQRjFYEdGSI3ZBMw pWSvD7cfFQUoSO0xooag IVfhIAdeIQQwdUU6MHYi vEWyK7PmMIZuYFznTSVj prx1GfQtMm5abCEfsBqd MFxwYXJkXHBsYWluXGZz AjGdL7TyPJEdEWYgzgWc yU84NQbanuklMIR2kTNm O0XmUGg6aNNdh1gkSEGz qOxkUrATdJ56NPC6jM4b ZXRyeSBhbmFseXNpcyAo DrRrSpOcPAE8Zgx5IJPc mG53wnVcgoBsOqDskfVh mMJUULFgvCkjhB3oaQdd lAzobhRzBZItMLMxl4Pb KYdhOZD2HM20napvQO3p JJG3BcItJS7nUCn4dFEh g5Y3tJAzTAE6fZY2QGlp KMPvw9w4gKGsMWMcmeBT MSQ6ZGYVLUWfPPBAGNVy TBtwnX8cNTZeQOPHWRWk OEGzgjDztJ3qq5K7eCip SCajvUWeDRhzB4a4GZVy DMcuFZY0uNxfWBVxZOso xRp6DUAhg6XhF4P8RhVJ mIKmPhveFLntI7Dik2Aa uO0yePN8rJDoHVBctcRv IUxeI37eu0sxKvNtxYSu GWVvmoAOcYJig6Ggl0Na WHSbIOQrz50rxBStOA91 IGNvcmUgbmVlZGxlIGJp o9IapVSpYiHhZVVcMPq1 AcqoFz6yHNJ3gyEbAAHq NBLocCPjqCoiks3dcSXt TKNckkxhSyPjI3VirPKr oJ4hhyMsJEX6iB9nSKcy PORnxfLcdYI7hR3yfWC3 uzU1fTGcXIyjX74vq3sv LiBccGFyXGNmMVxwYXJc S4XdQBNbxx3= Retained/Biomarker o6denVUaNVHbsQY5MOUd Testing (test code = AMJea5ztn1DjpBEuiXZl 9838) SKuueXQpatQoqe22xLJ6 bA93HV3cEWMtCuM3NWEe tyI8Rue3AVAbBANxbYLx D490o7yny7igzeFwtXE7 kMmrIEFpjkkrQbO1NJiv AURvhwwdJMo4CRnbOWYq yEL1TQDvoOJdV8NiNHJp MZ0ofcc0BEY6IAmsISOg RyI0LCLqnZSsDSOmkYyt OJuny679GEU5XsBhUADr uoSgeOlzjS2lNnYuIVON UjogIDYgUywgIDFDQlxw JYHtjPOeUWCqRKVre08f hngcxfSIIZR9qJ2tPsvf RMSekGwgFH3VKVIJMykc ICAgNTAtMzAwICBccGFy MZ3BDRWUVDS2JHWGq8Mf m0RvzGAyeXZpMXTblvEG WVweUXD1YCFjYq00XTY3 aXRhYmxlIFxwYXIgRklT OFADLWuxCO9fdKEknSg1 YWJsZSBccGFyXHBhcmRc cGFyfQ== Informational Points d4ltsVXzKGMwlNUdGkIc (test code = 9836) DZUkUEXrj4ocQAKakHAk ZzEwMzNcZnRuYmpcdWMx ILRqBuIsx4gof908qLIt z6daTESfUrL4fCLvTJSl jPCaO104WZUbVScwz2ll z8AkTRPfyBFqi8P9XKNC UDomTSNLKCq8v9ffBlBg QrT8uRRfLMaqV4zlmzIq zPNmIJPfGYx2hI71TYYf fS0rpUHcBQsajyDnAbG7 GRkwREUeGqJ2WBKpzCAx EBFzN1ghMLXhFItdESEr QNxvnKEvGSP4oPlsv6W6 bGVzaGVldHtcZjBcZnMy OsAYw3HoSMv8gIqbR8Qd GBByZyZ5aUGxHFYyCNsp XQIoJBLfqeP1tE30AQxx cyM2rSCag5Ylr80ht754 sD6nmHBoIDS9IAOzWCQr yUBwYNSlHHX9QBIbfJTo D9hjMOJrWE0iedqcRZjs AMiyYMTzfQB8ZVIrnZAt F8CyELNiTXveTJQrbme2 FrYjIq1xrQIbiHuyEKti c9qeh1ihxUMjBtw8XFSb ZnKaAlkuTUfvz0Mcq9by INGgfy5xPMC9iBIouAll x5V7uXRkAPLqpPQpdjZv ARIbJjK1IOrsZQ2vci96 TYRbGKG0hu4nbRPqgUnh xlFxjDZpDTrnW1VtOTMa j528FSCxV5FpSRJjd8S8 hkEzZaWzZAKpwRH5ydT4 CMHvPZn2gNGqmpP2wjAe bJAgY8alhZ4xXBGwNE4s hzbrm8diVOoeVSdyIDNy cTC7xhG5MJSknEOwP9Ro dO5dXMJiDHwlCHMvslq3 LeUtFm0byQSsbNvnVWgb YmtwYWdlXHBnbmNvbnRc cGduZGVjXHBsYWluXHBs YWluXGYwXGZzMjRccWxc lCmcrP2kFmYiKyKhSAaw WG6jUILvO0npwKXlHBFc VFDbI3bmTtUrlN4hsFst CKrdpdC4IUcsR26hAHU7 QIX0ptQgIYEfyuUkMSUf WLTbHL1ztFOtZTAeXBEo PJ8eUOG0QDzvlWTpSZXz OUOsCPWtg7EjVS1eTRDa lFVzTRY6NNNxc1QuH7Cn RHA3DRLolH0eHJOseBKO VCBNRCBBbmRlcnNvbiBQ GSGtg3bwC5dgMD8wTUeb Yd5rGZJmojxmGNLolWBo ezRgUACjJKTcSWEmy2Ss HRpwbfUpix18QHSqEN4n t1IxM7npbBTieVm2YGNg LMQsTXMxi4PpUHCjyg40 TSLpYthbrMsoCQZkHp9m Hm3aIFWpnmUwUSJ2IqPE CJ0pkngscQLerEusao9w XHBsYWluXGYyXGZzMjJc bGFuZzEwMzNcaGljaFxm YayvLgIsJZXeMOsnM8df ZjJcZnMyMlxwYXJ9 Lab Interpretation (test Abnormal code = 12135-8) [facility] Wapmonllwlcebd4514-02-55 18:28:31 Test Item Value Reference Range Interpretation Comments Gross Description (test n8jqkOGvYBVmaKA1EXZs code = 7097067988) YTCqj9wyi8JycKCpuMAb JZhukYRxipVgeb20kPI6 wG43HH6pMAHrXsQ6UFUe adK0Zno1JFXoUYRuhSQi J102i8vpu4bmiiOpmPR5 DFTqKVUpR7MeVM9zYRBb xMPpH84atYMdNJP8VESn HUJpmLMlWXOnBRP1OSCw nCKwH3wfVCKmIC5avjyc NPydVZtwFCCcrHU2SESn nGJkB1KdILSwRJybWJHx zfc6BdXhKt6euSZevGqu MLolKXKlv3kuZITneCAc XJO1MMtjsHJaRHUiVRSq IYf4JDVvIUavlMYfKC8a iXvjPhpzfMaqr4LunOPh XGlkIDUxMDAyIFxcZGIg P5ZALPMaQVEqRhAbPHFi FPp3PGtgM7HYJUIfVUF3 VMlrVjV0KiX1IGs0HIBU Vd0tGEH2LQJrJZO6WIB4 IVO8BXOeIWApKkEgQOQa IFxcZiBBcmlhbCBcXGZz TZHhKUuvYpZjGNnoX71y pYfdsF5rLsscesQwSNT3 PXPheiikCVdjMhYeL3Ak C8upLQ1rJRPyu2B8pjHp OlxwYXIgMiBEaWZmIFF1 sHj3ZUUaHJWgHCW4WCct HUVemMPpo2jjIGAiGDCx qFsqQOrgxe48GMM7w2dr aWVsZHtcKlxmbGRpbnN0 YTdLGKKAAJvREmSjCO0y YPtOP3UJOYpFPqcoUGT0 UUiqjBW7x9qvkOHyd0o8 HZhaXFR2aQHsuPbfaNc7 UORwj8ZyyZWozTOygXIf qSQ7RRKjMHnvz4unGPDl JXsut1MbGKcYPCKTQT5U ET9klRB3E0eQSSYWK0aR zFP4y5omvDCuf4e2ZQgf HIN1zCYei46eiVlpPyik qII5HEihNmqtiZ9qxSSK QLXPUdlDJutdjpOgJG0B XUjCCU4UoCK1b9xtnKAy b8m7LEbdPTW9xTdacFUp zjjyem92CWO6EQWcPmKn T0NrIDHtpIUwYXowLtpr iAZ0JIxjIrojyI1toOBA QSBAMfkVZzjcwwYtYW6S OWCWYL8EzFH1BrShqLW1 XS80MBLnQQGuxWUvAVsg R907KSNrFKlfKZExIcYm F7YhEVKpwmWLTO5DRCAd mgDhDGSlv5gvH4j5e61y jVM2ERQqslDgIPJnzRfv RgonL3flyLQqNWQtxMIt YIicHENNiGIyCQKefH2x Ck2ktMOsbC32EMI1QgZ0 HiBaDmGPDGT8TVRktEIv UKVlthNPzHoxYyL0VDUx IGxlZnRcfnJldHJvcGVy uGRzfkTczYEqIFMfm5la gQluj5XanUPmCE52KJCl eNQnPKT9FJ2ulBbtGAHv kxOUYSREHOxOQ7HiRJOR AJTXSPKhPnWXTC1dFtU1 WmE8GE25RshxUOPFWFHG DWfAGE5DKHCSYZVSYJ0B GaBoB0hVZEWYXoBrKWTI EZZZOVOmZlDAXF4pQum3 Fcmiy0A0D6aJHSBKBcNs CTLKADFLWPErHE6QXHEF HUTSKU0EEIEIN90PCNJP LWUHU4BZZ9sOTTFlx8Dh lEscIcE4WaMaFA6nBGzC B5UKF8uRZSYnHZOKSHNT QHBuPC2LTNiXRS0ZYCNe DEQGSWFZPPWqKmHFCO1v VQgXPV0SDNYyQUYVEHFL KZPzXL9VEYFUKU2QTSCI JZAAQ98ZWJULYSHWC2UZ A4dXHRBEKXYQTfNYBaQL SB7IIFJNEPCGOG7TQaI3 Major Classification MALIGNANT A (test code = 9839) Diagnosis (test code = h5hinRPjIWTfdBP5FKPw 34) JIQlr4beq0BamHOjsEYy SDhzkSBrtcTkgr64yYX3 uM99ZL7pMHZjYeC6HTBs zjD3Mdt2PNJeHSMnkYIg S414p7kfi8lodjLuhWE4 OHDsEZBhV4DvIY6bDBTu lCYjD84bsZRqGLS0ZKXg BPTarCImPKAdCIA3CYJl cNZeC3bkCAVpMF3ilyva OFrlWVtfVGIjxXE7IUSx fGCtU6JbWDXeLHseZYMb bem4ApDbFi0ytJKyaMhx BFdsO5qjjY4pXxM6YAgw X2vlvX5gHNl7VSmgVOTs mLI8ghX8XRTkhGFhD6Dv eZ6mSVUoNO7kduq9m9if WWI7AHyvCEUpGuJ2epJ5 NDBccGFyZFxwbGFpblxm czIwXGNmMSBBLiBSZXRy p5Xccov7b09vzQ7gCIul ZnQsIGZpbmUgbmVlZGxl PNPryFjhTWYoo778RMAa acq2CWGkrDByYHlbSbXp MLLYXYBBGX3LRWPvE8HZ IPREE3BRAMDBBJ8BWXZL N73HBFVPJS2OCFjILIjg HTTFB7AmUb0QKLiPMSwL HJXSK65XURniIGSuQ80b bWVudClccGFyfQ== Comment (test code = b0tuxZEjJLAcnBL6GGJy 9859) XFPal2yox2QoeWSfqRYv TOjkvUGyfeRkhp03uQQ6 oZ19UD7wVKKhCbX2QWGq xsA6Pco8QTIaFIDzdUBu R516g4jnn5mhvfRblEK4 IMWzODNzR8RmZQ2aRWLu cTWdR67nqRLqKXV6RIHz OCLdbBRnNEAvGMC8ZJRn rROoP6qdNMMfJJ3vvtnw OPewZAvdUECfhSM5TUTx eVBvY3OkPSWwTCtqYFBi zmp6TnYcZp4ysBPpwAbn MFxwYXJkXHBsYWluXGZz IqBsS7OeNACiHNQzkzPw rL49LRfnxpwrMZM5vMXf Y0PzMWp8tQHot6xoMKAc gQayAxBNoG64KIJ5rR1w ZXRyeSBhbmFseXNpcyAo KmElYhDhBRY0Fmq7LAIl hW31hbQujoHbHiOmneJn yPIJKJEknLnraS8hvFih oArpkiYgAOPcHZMhl4Bo VGzwBQD8FQ34anlvDQ7j AJZ3VbOpGJ0mJPf0zWVn o9F0dVRjJAO0xNY0CEhm LJAzt1g4yURpSHZtchDD DXZ5GHCSNFFdGQXXYCPv RWjjnL2bVHVaQBJMSQXw EIWhfjEgaL2vo7E1jXkr GYnvsKVrBTseZ0d2HLOm VCdhJVQ5eVbuRRPhIGhn vWo0SPYmw7MgU7S3AjVT yJLuSeskRMqpI4Yos6Fs tN9cbLJ4kZXlTNCkaoJr BKsrD57nv1scRaGzmVYk ZAMhliJRrSRnc5Dep7Qz TSTbBYLel33soTDcKO65 IGNvcmUgbmVlZGxlIGJp a5TosQQgWiSlNCFiITw0 QkfjAs3dKWV4ggWgKTMn MZBndQXlwAbkao2uvUKb KSLztspkCnAxJ9JjoPWb uP7waiUpWCG0uS3cCVww JBWjdqOohRN8oE1jsZF7 geC4kCCmBFbzH59aw3sa LiBccGFyXGNmMVxwYXJc V8ZwWZPpus1= Retained/Biomarker o7epdESuPTFpjUM5VVFr Testing (test code = VRMxk2xwe9TztMEijUTi 9838) GKpekCZjunTxvk40mKX4 bC53WH7mQVAvUfP2EQAa ocL4Wqo3OQRdRGOhbWXf D481y6rss3etdzJioKG7 kAdvZWWbsojwAlE6JVni NYWzfsoeJFy7BJvbWKBa xSU2XZTsgCQuE2OeNWGy XX1vnxf3CRR9PIvoKSRb SiW9WSTvoOYkWVHhiCef SZhvl640QZX3CqZrTYSl ahWurWpvvT2ePmAyEFWY UjogIDYgUywgIDFDQlxw DHWjxCEuLYGsATPbc49j wiqzdmXVXCC9oT0cQnum WCEchFzjCF2ZBMSTQhcu ICAgNTAtMzAwICBccGFy EF9NNUNTIBX1WLXPe3Nx d4MojYRopFBrADJcmoKR NDksQZP2URXrUw64HEX9 aXRhYmxlIFxwYXIgRklT MIUEFRkkLG0zpOGmjZt5 YWJsZSBccGFyXHBhcmRc cGFyfQ== Informational Points v1mlbRAfEJJdeZHrNdMw (test code = 9836) TYMeDYGdf6qvKPRqhGVm ZzEwMzNcZnRuYmpcdWMx TNTkUeZak8ncy272cPEb z5pePIPkVyY6sZNwLLEp xXPjW581LLMtIZvyi2mu x9QoYWFihZGvx1M8XKAV IBqoAMHBQXn9z8flBjZs NvA4lANuEYgiN2ezobTd hDXeXQDbCJz7aG65GRMs dR2axVOuULkalbEuKwW5 QEjeACUyNeF7KCPpeITr SWJjN5pjKBLwQZovTZWd GGpbtDUvPHA4tGxzf9V7 bGVzaGVldHtcZjBcZnMy AdKIr1AxFHp9eVblS6Um TZKvTkG2hAXrPTEqMZdx MQSzVXZozlG7qO78CMgz ixP7tZToe0Hiw06tm410 hP0smZCzQWB3SQSaBHVj yMFrPJThIWR4KZBenRYg Y5jfBRMvBI2peqzkETcj CZkjWBUvsOT8EXAwwVSa A3XpGSIiCQceYQUvgly3 UlWnUe5gaWVazZhlOUxx o6wma8njtEJpIfq3FLBx EtFjFyssYWggf3Urn4tu JWLfgd0hQGK3xFJxoHhj x7O6oMHnCLPuoHXxeiQp MPXtTrE4QYnsTM8oag39 CNGgKAG1yt4vnVVmxUoq whZqxKNfHFhzX4RnNDTh v649NGLoG6MhWKJol8T7 epQoYnGaIWRbfEQ8owN6 BHIxZJj1iDOwklB3tsPc wBOeZ0qqwE1cXOAjZO0m wgufo8vdNOypVDhmRJPh yOU1xgJ8JBCszUDeQ1Gf fQ6lVNPiYJchVFTropv6 TyCpWv8vmNYgyYenUOgx YmtwYWdlXHBnbmNvbnRc cGduZGVjXHBsYWluXHBs YWluXGYwXGZzMjRccWxc dFuzyB4yUkAcYbLzWAmf OV6aFOXbI2uafCSrNRVf HVPuF2smYrTmlP1pcMdl VXtxbhL0DNjqQ01hXUS7 TWD2bcUuEPGpgwMtTHUk LIXfYA7ibENgGKVeRPPd IF4iVJQ5NKmmkEVcTTPc AZAvWHWyp4UmDI6lEBAm qEFmYHD7AASwc2DnC7Eo WPR6ZBXzqT9nJPMymBCX VCBNRCBBbmRlcnNvbiBQ EGGer8ygM7dvSY0nRDrr Im2hOBIeiszmTQOglDUu nyYkKXSnNTFoZUQpd9Xx JTlfnfVegr55XMLhZU1w y6ZyZ3kbhFJeeNg6AGKp LSRiTIOen6BfKJHrip25 NQGoJasdgLbcIAZiCk4g Rp0iEBUzdyKqVYU4KtBN NZ8xhzlcbBErsUnfyp5f XHBsYWluXGYyXGZzMjJc bGFuZzEwMzNcaGljaFxm WhuiBtJmREDaVEnzB7gh ZjJcZnMyMlxwYXJ9 Lab Interpretation (test Abnormal code = 50960-0) [facility] Txcwuifygqtanf2560-34-36 18:28:31 Test Item Value Reference Range Interpretation Comments Gross Description (test x2qskXBwAJVfvUZ3AUDe code = [id number]) ZXNlb8lse0SfcAUxvANx PLgkuKVqexWwod89zRT9 lQ69XO7oNRUuRnN9DIOi bpX6Ofe0HRSdDYMycPQc M391x2scz8nsjqScyLD9 IIKdXKQkR6EyWN3yHQZa rIIdA90ifCWmHDQ6GFSe NQYasXAiEJQyNOW2MASl gLAkJ9dyCMQjLY9ylpvl FMhjJZffTXHfkCO5GVKt bYTuE3EpCRPcYYmlGCDa uhg2KnBnKm8vzHCkhGcw BSryBIJtl0bmQCRwuSGs PKJ3VThurLEoVLHrLGQi TKm9LWWdXQyhgDFiFA9x zPpzGvcoeZuev5XxcTFl XGlkIDUxMDAyIFxcZGIg L6PMQKPtMEBhDwItWHCa DKm1PKarF9JDXTIzPLT7 NCkdQqH1JhF3ZEn7GEWK Ja9bYTV7UDPkABY5GXZ1 JJO2HNYmLKPzYmAoLUDd IFxcZiBBcmlhbCBcXGZz AIFlHXfaOzYaDTdgK86z oHcvbT9aZlguqpPkSLW6 LGStkvcwXGdbCtNhY1Ay B4xhAW4mNMRjg6Q6xiOk OlxwYXIgMiBEaWZmIFF1 cVu9VHQbOGOxUSU0LOtw OVPibBKjl2uqKUEvCYFs vAgoDRrxhv55LJP0b5pf aWVsZHtcKlxmbGRpbnN0 ZQmBZKVCQZuPYnOnAO4h JIdLN9QMFYjTUqphQRP2 UJucfUT2e8fckOBbm5j2 INgmNTZ2tNOaoAvtcGa2 IQOgd5BarDTbiJRobGCi rJN7FBQdMFioq2gpIQOe HSipk4ZzNSuGLJPBLJ5B BW6nnJN8U7uBJVCTJ6nU uOA5b4bmcZBsd0y2BDee KHI1zTUke82iyIltWyiw qDA9MWmfUjhhgA9ydSZQ DHHZZpgIVxrbjxMqZJ5Y HLgXLW5FoCI1m1sisIMi m8m8FHphKCQ5zBbeyTFg yijyiz09SWX9DADcLyLh E8TyTUCdqXXyYBlaWkwc mJT7MDigMgkleW4gsRKU LUGSGxcEJhjgayWaIO1J VJTVXP5VyOA5VxYzhPL3 FE90QHAlGMXeaKRbERor Q178GAMoRMoqPNQbPfFu J7TlPUHvkvELHZ3PFBEy shMxSQUkr7lrS2d9r27x xLC4PHOcqlNaVTKmvMck CrghF8ykjBDrNNGhcONf NKxjITSUrRYnRQRaqD7e Ew4rcWJobQ20MBZ9WuZ0 UyLjXaFHGUP7QNOrrIQm YWOaziSSnFfjGnH6IFHw IGxlZnRcfnJldHJvcGVy fHIdteMcdSDiAFKsm7zw kLcav6GurIPmDL68LEEm dEWmKQH9PO7gvDjzCROh dbLBMMTIWFaQQ3RpNSKI ECYWZSAfEqDOGN8kIwQ5 ZnP6LO94LujlPPCZHPEZ DUwKDJ5OFLQGVJCUKQ7R NrXvQ2aBEIHWBjJfPIDD QNJEYSNzWpSAVM0eSgf4 Waaep5D2T0eZYJQSOdAw KUJVVDQHRCTyVY4BOYCP UPFPDQ4ZEQVEN80EITUP WUJBV1UKV4mEMDKej7Nl dGujInA5TmEjLC8cCZoR R6TMJ5qCSEImAODRZRZR INRxXX8SJRvUZD3NLZVa AHPPDECSNZDbInUWSM0h EYvZIZ9HAXPcYATCAZSE WTIqYX3FYAKMJS9WKGWW GJROR19TBSZIGFCDB6KH B6aJIXJLQRZOKrYCAyLO QK4EXRYFSACRWS5CCuI3 Major Classification MALIGNANT A (test code = 9839) Diagnosis (test code = u5yafHJlPVAejGL7ACCo 34) YWXwr0ckv0WzfLCcbVLz ZGefvGSwohTcbf57kFK0 jB14LO0pPFNzRpO1FWWv hpC2Hzb5IYGdLYGaxYXf B352j2izt6spygQpbZT7 NTFoBLIuX6KaOY5bZBXy rJEyQ10flSWrAYN6MMSc CFXqxRJsVHVuYJJ6EQXs dAIdE9bqOHVyAP3xkfej HXhmRYzjRHYmvZH4MCEg rUPbE5UjDRAkTAxoOPDx moy8GnGiQd5yuOFlkQqr GDyqN6hraN6hEyD3ANje O6kngX0nIIh0WWdsZNQu pWH2pjR2AMVgsRQmY6Fo eU2rWVJwHF1pzhy3c1cy DJQ9CCgwJVBoRlF2ciI2 NDBccGFyZFxwbGFpblxm czIwXGNmMSBBLiBSZXRy q7Hkahp4q47mmL2qZZcw ZnQsIGZpbmUgbmVlZGxl GPDhaThsGAVcm015FFVk nsy6IKWacRFmYQsiPsJm UPNPKOHLWT1EQXTcK1AK WLOSA7UYCMBQXC1AWHVO Q67LAOJSNI5CHDfTPOaw KOAVA4IvOn7KIXaOQIhU SOJWE46QYXwnPRMmZ56e bWVudClccGFyfQ== Comment (test code = a2redFTlNDYyyQN8ZBDz 9877) BENhe3muc6JzbYDeaIIr WCgskUFlzzTyic18sKE8 iY05OI6gZVCsZhN9JCKe atO6Ilg5PFJrYOLimRIy E505o7voh8lxoxQzwKS0 ICRvAAFcQ3HbZP4vMSAv pKOyG09kpMAkSAX2LYQb LVIgvBAzGLOqKID9ZDOl ePWmL6sjFZSgGU7ywzqp UTguMJnsGQCinRE3ARKi lJRcF5SkJFSyWWyfGORd rdr1EkVbMe7wkSZmsFmd MFxwYXJkXHBsYWluXGZz HlFfY8LuGIBpKQQlxnHv vR35HSosbkuvTFD3iAIz S1ReOZy6nPRyl4dbRWNz tRrzZuMMxL05PGK2cB2c ZXRyeSBhbmFseXNpcyAo ZqUcAqXqTMI3Dsf9COPt fJ33qjGsxwNfBxObztTx nVNPKIKscZhgfY9mrItp hCeuwdHdBBHcSPTpr5Ba ERxpQGS5AR36npgxWL9n WHW8DxFgFD5kAUo2xUCo m4F8uCQbTAT8rPC4CEav WZUqg3y9pZVtMKLgoaHR SCO7WTMIUGDwATCFRBNv ZHlpuV3aUNXjIZHRZHUv TQNqftGftL7wc2I9hHww XUffyHLwCSvnY1b0NGQb KCrkCCI9fVjcEJZaFCiw uIk0RQWwj6OwO2T1KuGX vLMdXzjpVEisO7Wiw1Aj vS9vgEA2xXZlWXYlgwRp PZqzD82hw7dtFyGgpOMt NAFzniGBzNGll2Fss0Zp GGVbNFGti95toFAuEO01 IGNvcmUgbmVlZGxlIGJp y2SznYOpDbOzYZCrYUm4 WhjnVo2wSYC5czCvGUMf HETjoWYoxXucpc2bgSTn TMAbrtxmSxIpD0NfhTHi gE9zyiHcJXZ2hG1bEFvn EKBoywItzEY0aY9xdHO0 hwH8vQZuZXskX55wj6cy LiBccGFyXGNmMVxwYXJc G7OrJVScbh6= Retained/Biomarker b4otoSCxJFFeaJA5AQUm Testing (test code = MAWek3dkm4JxgOBxbQYa 9838) HSqarTYxsuDyey77oGA7 yY44TO7jEOSpCvJ0OHSm qbF7Akg1HEJcNSXpnBSs N473w9qfx0zfpaWdyNR1 zHkqUFXfpgrzWaP3LKwm UBGchjwvUSu3HOwfNUNd qQU2BNLamLJvH9JsVNYf CW1vjjn1CVN8OOceDVLn JdC3CZEvjPJlQJFaaXsd QDclq223IQN0DoIsMWXq lqTlrZtgoA2vRxXwSJRB UjogIDYgUywgIDFDQlxw ETWvaIBiWPTrFOVul38q puywoaRDSWQ8yW9bNdnk KQInmSxdHD7DNKKKWayk ICAgNTAtMzAwICBccGFy IC4HJFAETUS6UJDCw9Et h2VhlSArcYHyXUElgoUX DUqmKAY5XCEjMm45PAC0 aXRhYmxlIFxwYXIgRklT HCGAQZuuHF2sbQHhhSv6 YWJsZSBccGFyXHBhcmRc cGFyfQ== Informational Points q4nyiETjXNOohTQyAuYx (test code = 9836) ITEtQYVby6mkIRKlvUUo ZzEwMzNcZnRuYmpcdWMx FKLvToToh5irj514pOVr d8bxVAPwRhC4bZLpCUJx fVAdH891FOOkRFdra8mc i8AnEPFokTPww3Z9POXG EJtxNKUMCJy4p3hlGxWu AmD1dOAvMRtdP0sdgbRk eYDxAXRpQBp9xE09WQSj bO5jbMFzJZmpvaVdJaJ1 XMmdAUYyTmS6ALEcrWRj BZKdC4euSCXxAQgfMZKf NQuwcQOaLTZ5nEbtb1A8 bGVzaGVldHtcZjBcZnMy KqPUn6XiUBg9eYtnC2Fo VRNwSnV1xNVoVVDwVSey IXOzHWPgfnD2xC77RAel jzC7qBMdy3Tyj11lb753 mY9qyESjHGW7XWTlLNMq eYYbJHSdJZD0XCVvlHSw Q6syMLRiGW7fiziiHHev KUjsCUAwnMA9ULPeqMNx Z7AjGPPeXGuwVJWadey0 OtUcQk5ubZTmaLfcSEtw m6lun6tehRPzMoa5XFUm LtRqKurdPIfry6Kbv9md FLHlnk4uPDG2dJBfqPyz i2E9bOSoZSBnjGKichQi LZXwEeA2EXleTM3aww53 LNZhUXW2zo4sgYHcwBye auMplOPtBParJ3MxYVIv l591WDViY2JbRHSkn7L4 ltUkHnDrLPDjxNN9ymJ1 TSFtRMw7cPIpoqB5mnEr oQRzK7uljR9wGMKgYO2l kbgxv4ebZGyhTKktLIGa sYR9eeE9FIGwuZPlA0Xl fA6sIDJbXGrfTHVhmjc2 PpSgAj4lgWZcjLcwZDxn YmtwYWdlXHBnbmNvbnRc cGduZGVjXHBsYWluXHBs YWluXGYwXGZzMjRccWxc qXgvjF8wLlSiOrZcUHey QW7zKDVuU5srrQIvEMZp GPVvR5fxTeXboJ9gvXcy FWbxogP4OGogE12yPWI0 KCG5lqJcDJVbgsHqYVZu YEDlSW5nfRYhRGVcSOWs VR0tZOM1ANdogJXbBWSh WZVjEKHiy3TeWB0eRMYk nREgQQA3ORAty0FxI8Mk HPD7RTQgcA2dDMXqkJAV VCBNRCBBbmRlcnNvbiBQ KKMrj5eaJ5caWU9xHDiz Qt5jWHJuwnktRZJpkUOc swAtQKJiDKDuZGVsd1Py YEzlspKgre03EVSoNA9s o1PxT2gepSCnbNm9QFOv QMEjCVIho3FpNSHqrq49 BLWiLjdhbIyoACDeDr3h To8oPPTetmToAUO3FnXZ BD1dxzbpfCHotXabrr5v XHBsYWluXGYyXGZzMjJc bGFuZzEwMzNcaGljaFxm BiirChLqUVSvDFkbS1xb ZjJcZnMyMlxwYXJ9 Lab Interpretation (test Abnormal code = 47508-3) [facility] FNA Zgzpetsyukdtmk9756-00-79 18:28:31 Test Item Value Reference Range Interpretation Comments Gross Description (test a6hetQVgVYDbuSZ0YLTg code = [id number]) LQRfd6hnk1QxlZZukOGm KTizyMYbddZzgx67nDY9 hZ97JQ6jAUHqJuG4HLRg kgV7Fyy5IQUtGRDblKBu F376s1xdc1jvtkUfnWA1 XKDcLJYvB5DbSK5kLXAz lGZxR44naRSoNGZ7KQGr QGYzhSAcCUYgSFD8DRSz yAVrX1ooLKSxEN4yepfz KQxvASzmIZWirCE2QYFh oRNrC7PyOXPkYYnfXEEg mzo3HhYtPw2lmLVjtBcj VIjkVCFof5qlHANjoOUm SBV1QJtlrWIoLDNpUZEs JDx3ISWmEMewoEZfTP5r dRkvUlxerAajv9IqgXZt XGlkIDUxMDAyIFxcZGIg K0OHUKAoBXThCkGbNQHf XFv3XFqqI2MRBUEnJDT5 OJegUcM4DrI9PAp4TNTT Pu4eGMA6BLEaGHA1QGY5 YGW8OOAmRMMcYcTvCBPf IFxcZiBBcmlhbCBcXGZz RSRsLQwxExXaKIwaJ93e hCzqkN6nQmlksyBfCIR2 HEOdqznlFBqaTxVhK5Kw C4bdZE5oHADew2J0rqQl OlxwYXIgMiBEaWZmIFF1 uZo0JSJwNVMiSHF6MBgh NDKaeDYup6gkTWRzXZEi hAsxCAwsow97FWM8d7mn aWVsZHtcKlxmbGRpbnN0 MAkMSGPGPFoMTpEsKD7m BQfDQ1QMBMjXPbhiYDF8 ALupyVT5g1qruRAos3y4 COqfWAI2sDHcbHmtmXc9 GNPgo5IcbXBkjNYurIVc qYY0CEFaYQhdc6huTGHn BOmvs6KxCRrKXUNSYJ4N QX8ybTY5B4nLHHJFS1bI oNX9b8imcFObk8w3YLrl FOQ0zPGrz80aaHwkVyfd zLH7YEdpVhguqV2ipKWM YCCWMcjJDgheaqWgDE6G QOoDHW2YcOF3d9yvjDHk j9n2TIiuKXB6nLjncCZn qtjvzt75ZVQ4BXIlAaSr U8VyZCZloNIeGFtgJtoc oUY5KTboDcwipX8puKVS AKYWTfrIHikdugEjEQ4M IZVTUO3YgCY0TyKfiTF1 HL78HGPxQWRieJWnETxy M268OCHgJGjrVPPeDcKq Z1SkJVNfwrLXHQ0YBGBe avMjOSGsv8fvG8e5e54t uQR1SQFvspGiIYRavIcj VcukW5hzjWDmLANejWZs MLhmCXEBqHYnYLIdoR2o In7wqUBzmK53TGD7QgX8 LpZxQaCMKYA9SACayHCu HUZkqoCXfTtdFjP1CNHf IGxlZnRcfnJldHJvcGVy jMGbfcHftNOdWPYnz1jq yWajb0UpbNNkPW33NVWb hMUxZPC8VR9ciRdfZAIf bdBRZGKKSQqWN9NrVDVU DXVHWZNiIwHUGH0wQqG6 WfB5BC40ZhhkNOBKJXTU DAeUVO3TBOCDEUMTZV3G WmRpY2fXLQLHLiGyONKT RPTQRTUfIaUQGW3qLbd1 Agwhx1E5A7iCTCBZIiBb FQPQZAIMYJSgXA3TCAJB IQMELE2BQJJAG66RPPDH CRYIO9YZQ1qWLZIyu8Go yPjyLyX6AkPtZG5vEGxV Q2YLD2kYYLZjLYBHHTGF JLLpLV2PBYtJMI3DSKZx LZPZXTQEOVApFsQXUO1y JEsRRN9NLFWrPAADVUFD KHBrXW8CDVBDFP8QEEIK NWIUB79IMPOYQALFC6EE P6bOYGSSSNOMBtKDCbAR CV4ZGOPYWEOYFC6ICgY6 Major Classification MALIGNANT A (test code = 9839) Diagnosis (test code = p7apcBMuUUReuMD3HLHc 34) AISps6maa8FddFLehPIm CKsbnRKszoPmli77rRX7 iR90BA8pCGKiCxU9AHLy unC8Qmb7SJAwCZBtgINm N370i1scj7cgosLpmPE1 MUAqXBCxH1StLM1nMWGs hQJoM53upCIfZBJ7ZBSk VUGtcBUnZTYcTYP1PXWe iVJeR9bnOUUrPJ2apqvj BKldESmgBWJrcJZ1BXWq hRXdC3VeWNWvGAvxPKXm nck4LvGtCs5gkHYqkBcl OMtnS8gkxJ6zVdN1LFfw Z7xwtE6fBTj5HOpiLRLe dVK6cmB8KJIbfDLlX7Yy yQ7tRHYuXX3olmh8l0it ALH5HDuvWUUqRtJ9kbE9 NDBccGFyZFxwbGFpblxm czIwXGNmMSBBLiBSZXRy o5Fbbpu8q14jwH4aJPga ZnQsIGZpbmUgbmVlZGxl NOEznMndCNNuw585PFXz edj9TAMfsCAkBJnzWpPm VFWYSCYLJF1GOHSdZ6OM UVYMR1NHFVAPBW4AHHKN R83ZTVIIQM0GNYaANCde JZOVQ8OxXr4GMCfHSFpW DROBD18TBLxtEKBsM66g bWVudClccGFyfQ== Comment (test code = x8ltpTBoYDKxsYG0HATt 9835) KKRmx9gcg1VanHIasGXa ICpyfQPvrlQdhh31uEM0 wE63UI7xAWKcTlS4QJRw hkT3Mrs1BUIjEUIquORk Z144b6tuw0ttehDliOA3 KVApNJIeX7ViOD9xBTFg oIIlC41bbSKuRVI0LUAc RIOutEDsYKIzHQB7DYKl qYYbY8hoXJNtMU3ocfky KJnsBStiBHUvgQR7DENw hXFmK6HeTFNfNEnfMJGb lct8DiMjZk0gbUNwxEcy MFxwYXJkXHBsYWluXGZz ChDoD4LyDAAfVRMotbDe oO37CXzsbufdKKU7dZBx P8NjBIz8yHWwj7bnFPUv dYhwJbLUgY25TZB3oN2h ZXRyeSBhbmFseXNpcyAo QyKfJrQrOOX1Rpx8LLAd pO86sxXblxCoCzNljdEn qFMPGHMciKoagP2hfZzj cFfzooLvOVViASMqs6Yw PTpgSNG0NN46xsamPO1c SEH5ObCuSF8jGAu5dPNt j6Y3xFBzXFI8fRH6BXoz RNGqf0g3aVEvHOGmwyYV PBO8QICFLEJuJXYIHNDg NJesmY9zUPUnZLAPVBIo PAOazmXufG7os9O7iNug IFxtgAWfJOleX8s7CHVq ENmoMNT4yXeeJDOnHSnm gUn3CMWlr7WwX9N2TzTJ fIEwDegbQPjtH8Hvu4Il fL4ulKB5wLWfTVCtyvQx DMkyW45cs3vvIjHztAWl NHSqzkWXzHVii2Wvd7Mc LEJkNVDnb63atIPyMT50 IGNvcmUgbmVlZGxlIGJp o0GxaPMvLtZsNTWrJOs9 YdwwQj2bQFJ8nkOaTPEb MBTehRCyqJygmx4yhQSb HTQtruldInSeZ6RdtPUo jS5dqlLrLMT0tU8nEIix NRGyiuFjvQO2cV0vkBP0 loR1aUSzMPreA34qz7tk LiBccGFyXGNmMVxwYXJc C5QxQVYtpu8= Retained/Biomarker w3mzzMAtHUSrfMT6XDRt Testing (test code = QFWgc2ewt8AnzACbcUMj 9838) ZTsueKFsxcGtov22qWI5 pU65AQ5yOUYwVdM6XJBa iuC8Rsr2YIKxOTGijHPh Y896q0jzf7tvuqGadPT4 eHgsJZKqjjpyFcL8CLzn GRHxcigpMJt0RKyiWZEs nOI1YRMoeGWeJ3JsHQZp BG6mmte6FPO1WPqbLONz IwL4GCEizLMrDHPxaSem YGlbc928DPD8GuMlEWWh tmHszXazoY6xNoEvZQJX UjogIDYgUywgIDFDQlxw LLWakBMqNWYnTZBxb20s vhcbmrWDDXA8eU7mGhih OHPtyJybGE7EUWMZBlvk ICAgNTAtMzAwICBccGFy DM1PTVLOCQJ4UUOLr5Ka l4GnaWQzcEMyOQNsreOX DOwwOZU4VWEvVj93ZGB2 aXRhYmxlIFxwYXIgRklT LWPLPLbgKY0tpZXmfQw7 YWJsZSBccGFyXHBhcmRc cGFyfQ== Informational Points d2lyqEBjCQRgmYNoUjCo (test code = 9836) DNIcSLFjh2srCOKjtBJs ZzEwMzNcZnRuYmpcdWMx VNQoRkYhf4yvz181gWJe z6jjLYAkIrD1gLOhYPEa dUJcA479QABpURvvd7ew v5FkMZWalJCee1A2FQQZ FMugCGIHTUu2m7tdWkEx PqI5yICxBItgA5ymfvEc aJQvFFYjVUa5vM23RXXz eP2idPIcOUyvgmIlMpR5 LTlnWXBmDgB2OTFniVZo OYVaB6fsOTPoRNyaDBZx DQpbhSWgUXO0mCrkl3K3 bGVzaGVldHtcZjBcZnMy KlAUr8TsSSx5fAvhH9Uv EXFkOhA5tYLuVJJmWRgd FMKgPDJvrkP6vT52KBbe tdX2vWGeg5Yqu72ir186 oI8mjCYsZYL3CNLdXWCg rWLeHYQgTWJ5ILNukQKr A7kxBLUyPU3rpguzQQsd IYggUSOmiHX7YFRdwPFj N6FkDUVmCShrGLVunvy1 WsJaPu0jmSVawUogHWaf k3mli0twfDDiVow0VHFq MaYaEcyhXDtpe7Ktx5ae XLMzwl0rJCH0wZNtlRtx s6X2gNLxLUIynSDdtaRm KYUlPuP3XNeiMV9tmd72 GBDqOJQ3nc9xsMWqyKsc ihXfbBSrQPigV3SiPSHx p509RUVwW0NtBJKdy6U0 vhLnFfHhBAOcmTT4uuP7 FMSsXLi1mPTfgrX4qxXq hQRhH3nayM0zXFHtXZ1t grmst4oxDEkaRRlrRIUf oTH0wxD8MZQovHNmP3Db kJ9tBAYhSGcvBTUoqwv6 MeFbJt4mzIHrbDsiLDuw YmtwYWdlXHBnbmNvbnRc cGduZGVjXHBsYWluXHBs YWluXGYwXGZzMjRccWxc xPdsyL8uBhNnUjXaILau SM2rRYFzM3dqzDIbSDVu ZLUjT6kmAcPkbJ3hqYwp HPaivuC6JKisS86gXPX8 LIZ0ywTgJWPxbkHhVGCp ANDjFO9dgJZfVSQfIJEf BC7kSJB5EDcwhZChJPIq FTLuZKHua7BnQN6qQFFv uWFcSON1RPWey7VzW6Um YMC5ODNtzL6rLHByhGNA VCBNRCBBbmRlcnNvbiBQ EAVzx7lzS3euFJ2zPTfu Lo7mARJoqxrvUZRcvQAb uhVxBPLsSINzFHDff6Xp YYuhojHsbt08KGDuHU1x d6PwH9kwyPSfoCh5MKDr QYBwIASuj0FfBRFkri90 IXDiXnujpEkuCHAeHc9y Bh3fZSMpzjTkWNZ9WpUA HV0zzduayGDldWekwv4a XHBsYWluXGYyXGZzMjJc bGFuZzEwMzNcaGljaFxm RejhKcJsASCeHRhrI6qg ZjJcZnMyMlxwYXJ9 Lab Interpretation (test Abnormal code = 95473-0) [facility]-Gu[facility] FNA Dwuterbaykwqno3870-40-06 18:28:31 Test Item Value Reference Range Interpretation Comments Gross Description (test a6axaPToYAWcmOT0XAHz code = [id number]) GMJjx5rzp0DasZJdsJNv OGqpkSEceaTmhl64fJO5 jX84TZ8xYXNoVbQ7BAXb tcR8Zmq6CFYlMWKepPQn T556l7ubi9lbedFaqPW9 GKJnFSEtS5FwHQ9vTPDa eDQxP22baHBhZOF6BWAo GVEdhGLbPAAnHDZ6YKTi sNKmT2liYANjUB1ccumy TCusPNniCZCvzNG6YIKi wDCvU5UgBEYlXEqxMZWu ktx0TfRrGa9eaJDyeYll XPjvCJZdz6rmHQJsmXKk FYT7XLngbNCwUDRgBIIs FFl5QJEvZFhjgRLqSH7m yThdIiqbrCpwq5LssZAf XGlkIDUxMDAyIFxcZGIg E7XKBLZdBMQnBjVbIUPp ESw3LYxlT5SYXUNdBTJ8 KIdiKgO8VqM1ZDk1WMHK Cx0cBJZ7MJYtHOE2FHQ2 JKW2JFKiFFHeLmBoNFKo IFxcZiBBcmlhbCBcXGZz FHHrMRauOsMhXGpaN81h lXxqkX0wZozizoUqGBW3 IFPyrymtTSmeKxMoK7Ni W3xlZG3rOKVqr9G8myBd OlxwYXIgMiBEaWZmIFF1 wHa8PGFbJVSzYAJ7NEhv QVTbsSHeq7hmHGTjHFIa hRinOXirvu73MSV5a0or aWVsZHtcKlxmbGRpbnN0 ZDlLTUXIFLkTJmIpQH7k JVrTZ0PUARsXZmcvWRR2 QGcnbSG5y8oovMFdi8q1 GZsvMZS3wTQuaIgboLb7 JVMns5CxgDFpwNNzcTRs tBB9HQCoCAkxc9jqPPOq XEbfi6JjYBaKHWYZTW4M BT7jzME6S4lXRKALD7vR sBF7s7vnaVMul9y1QPga YXG9pOEog72ioHsmDhwu lBQ6RPwnQpnjaM3xaTXD HDGZLqgCFloikgUiUS0U GDsSIU5LoMD7s0msvVYm c6m7ZJymZAX7cRiijUBn vlckap31BOF2EIHiOmVp T2MzMQKdvJJsNNsvBhbj hRZ4HRtzUalvqU3ccVSQ UXRGDlqDEzgctvGyHA8A ATYOXS7DzVX1JnCqlZS3 EP24RIPxQYQxdWWwMAzr S968HYGdISzyQZUfRjQk X6MnNYUickRQFR2FOLQl vzEdJQRbo2fwW7s2r09a cTZ2YIKcgnWiOYRmbBji EwrhT7izjDSzCVJiuVEp VQuqDCHRiGYcOGAthM3s Sz3szOFmtS78HFG2DwH7 HuJoDbWIMGJ4VTJqlNMe EDBlwpHCkJyoDpB9PRDw IGxlZnRcfnJldHJvcGVy dJYjigEpaVHxFMLgq2qg wKmzi1YcqJXnVL34PJTt kOSoQEH1JL0niAhgWJPb nnOZVBKNAYbBC6EtJYUQ BOEMULPwIrZQLL4eDmX0 EsR3JL05QhapTZEDGVMG YCtTDL9TETUPQHFCWD8F CuYiL9uCCFIJPzJjCOKT PTZYMBYrAdAQEJ6qUcj2 Rfxev5C3K6sYNGZTCkJz ERHOPXOZHFOnNY1KNOAO MESAFR0YGJQYV51GZJID CSUYP3TKK0eRIVVem3Dw wSsbZpZ4PwCwIR6uKRfI X4OLA8mENRKiQGJBTBWC MEExWB6NHJbTFT1OJALh HUYVLXXKMFRsRvXSDG7q MLaYYX6WQODkTSNBYAJP RLNgNH7LIKIOEZ0PGQDJ XUAZQ68DGZRNRZCUP1DT G7vTZXFRVXFUFmPYWlXI KB0MTBKDNYKWRO6YQtP0 Major Classification MALIGNANT A (test code = 9839) Diagnosis (test code = r3dtiJRwECXgfJP5HVHx 34) HIPtw5fff1QwrEJxkXHh YBjrnISlbfGvlo41xPX3 bS50ZF7aCNRyUuS7HYFl hqT2Gtb0CNDeENZvwXTp A253z2ked1uxijDctLN6 ZPNkFDXfG2QfYL1yEQPr wZUhR93vkJOhLXW2WCNd FDGguOXrQHElOJE3XQYp fZJnY3xeFAJnGN8jorby GRbkCRlzTPXqgMA7HGIj nWZiW2CnAMJuDFaxXZPv ygv8VpEyVm1jrSZonRdw QAtdM8rqiU8mFvB0KHsy L1pfkM4pVGg6DHpyOODl mXD6pbN6IPXayFYfZ5Vn cU7nDCAwKZ3azsi0b3cd VLS1PKvoUBBmAgU3omG3 NDBccGFyZFxwbGFpblxm czIwXGNmMSBBLiBSZXRy v1Cmxlw4o20giZ5lLXfi ZnQsIGZpbmUgbmVlZGxl GFNynSyqRCJmc921HXJw bez7KEKqsKQoPXyxNyFa KMDSOUTMBW7YYAMxN3MK YGYWW9VFJFQAJU3EIDRG S61FMREJWT2KXXeJUGog BRGMT3PeEp4BAUqNDFyG WSYVF38MHVyhAJCzM45s bWVudClccGFyfQ== Comment (test code = z3qhjABeFNIobVJ9YCZx 9835) LGLyl2wgf7CtxVRtaMGo PXnyjQXjasWcme08mSJ2 hJ56HV1tQQJkWnB4QNQh rwE9Bdg7QPItDNEkoCVr Q836v8spa0athpGllJP3 HEDrETJmR2MtAG8oGZAp kDAwX72mcOWcHQM6DODc DSSggXBtNSEhGGE5GBUn sRJwS7esQXTfGS3fzvtz MXjtAQdxVICxwGI3TKDt uVJqQ9AeWSCxVSsmJBBa fpu9AsTcGx8uzQLzrJsg MFxwYXJkXHBsYWluXGZz UaZqP6TzRBJjMCSnemRi xH01FQbnfzlmDNF4qKYc Q5HqWAp8wBFlh0ryCKRo zDrdWiMCtU58MSC5gJ8t ZXRyeSBhbmFseXNpcyAo ThVxXgThGIT2Fps3YAQk fC60jgHrxfTuPiDexnCr tXSNVZXaeJkweP2fdZqi sWjuibFuJPLiFARep5Iw NOmzWAB1AE50wsudSW3d SNK2LzSgHR4hTJo3zLOd c4T7rMEoBMB5sBC6JMzo ZOVpa5r9fIAxIOHtlcKP FNC0VOXLCXFtWSDPVWOy USmljB3wHILfERBGURJw JEHnomCyjF2xv7U5wXco DXkptEFfPHiwZ3j7ODIs XVqjFNW8iHqrVCIlOBfz oUb0ECHfa9GdP7E5IpBK gIOmYacgQYroW8Vck4Yn zI2bdUK0zKVyUBWyhmSn VUhvJ27ys3sqSiLahBDx LOAvmdIQrMCow7Wec2Ow CSKqYOZat26ogEAcCE39 IGNvcmUgbmVlZGxlIGJp q5ZpbVAwOtOlZMZgRWx5 TubnTh5aQLV3ryKyLGEw FIOxwPRnlRbyda0rqYYz NHRthchaUxTeA2NszENy cS5erkAmJMJ5xG9rTCjp HEZeudBhzSA4tR2ihXC2 ffX9hQGdDLuaJ44na2zq LiBccGFyXGNmMVxwYXJc R8TmLKEzng6= Retained/Biomarker x4nneGAjJUFcaYI3GNRh Testing (test code = TUEvo5qis1TuePPajAEk 9838) TIveyGXeqyBbsz76iTR4 pY96II3zYBRhUzY6WQPb phU8Wqm3NZQiUAOwfTQe B372h8xwm4dxquFzyHK8 dOhwBMGiwyhbMzC9SMvs PVYyjfmqCJx5TCbcXTTk yMH0UUJdtUJtH9OgNZFv MP3avsh5YJB1JOkaSYDa MtY5OZWgnZHjCVJrtVlc ENrcc287QSI8XgBiGIDd xcCqwHybiV8pOdQbZFWA UjogIDYgUywgIDFDQlxw IZMhwJHdBBLgCGGmw04y zfhfozZFSGS7xG4oTzti YDMuiPcrNZ6LEKNAKetn ICAgNTAtMzAwICBccGFy TV8SWTSXRSW4JPFEp2Zs m6DffXDdbTSlARTelgVV YTrhNKO0LWXgIu04BSQ9 aXRhYmxlIFxwYXIgRklT KNTTYAedYX1aiDAxtEf7 YWJsZSBccGFyXHBhcmRc cGFyfQ== Informational Points t1jnqJCrMXCedCRwKjWc (test code = 9836) UAMmKSQlf3nhSARbwNMr ZzEwMzNcZnRuYmpcdWMx EAOtYgTic4snz687nVBr v7rgXFEsKfR1mAAlZLSx jWYpK123QOViCImac8ze b1GiZKHvwYFkz3B5BQCY GOmhHJSIBAw1t3jyExFk PpZ4uQCfAPszG7fyzbSh hFEoTNObDGv4dU02TRXg xU4rpULcARaeliEoTeA3 XHfpJHBaCdE5EKMihVUq FXHeN9djKWWiBTlhSREl JRassZRqHEW3fWiht8W4 bGVzaGVldHtcZjBcZnMy IxIRk5JjQNb4jGwfA2Hn KRFjJnT9bBDxHPIhVTkw SOLsXUAofsK3nB94HWbb tcL3dPNbt3Mua65aj093 vH7nkUOgSGA8LKPeUIYi vNRdCTWaLRF3PFPqwYXf J0fyQMYbFK0lgomkSIpi HCilWQNsmSZ2VLWrxAWg H3OdKIBqZCgzVTSlwrf1 SfMwCi4uyDFfpRkoRMou b0bez3penFAqCde6ZEQk DqIhJbxpQNltr0Nqp5ug XIInhl4zHZA3fRWkhBlr x5Y0aPDdYGLdcOMwajXc YECqWzM9JMkzYZ6mru21 TZHzKFR4kl9xlIBpuEbi kzYjuJJfNKzuB6CyRNFe z923NMAcT7McFPBno4H3 ncIbEnJhZVFviPH2krC7 LEXoDLw2wIHndvN1nlVz dQDwX6kieG1xSVWkFP2y hkdme0iwYKyjPSkzRJSk kLL6udW1WEXwbDPqF0Vd mI8aJPTtFLdmDWPwvsm6 AwUiRq3zrGFmjQumJUwc YmtwYWdlXHBnbmNvbnRc cGduZGVjXHBsYWluXHBs YWluXGYwXGZzMjRccWxc jUnihW6gZkXkIyVpEMxq KB6cTYQpG2cuwJTbRNRx XTUvM4wwXjHmvJ4ssDqa PTeelcA8QTdnX39aKCO4 MRW5fkXaQUQhkqUjYVJc HLQiPH2iwJFeOCYtKGYr LB7lPSN1ZZnfrYUlIOKi IWZfXBMal0MoVQ6jAIJi kAHdIJN4WIRhq2QtE1Dh STM0APChiE1qRYJahRTT VCBNRCBBbmRlcnNvbiBQ IRCsg3uaE5lvHQ6pRNjo Cc1jCWNqhjicMLGudMHu vdSmQHCnERTpNIVzi3Mp UJbpwwSvxq34EEBqJO4w t7McA1gcuOUphRf5AINw ECXxOZWdq1GeWEHhxt52 JWPzYdyujWrsKNEkDb2x Zc1qTEXvukUmPXR7OcXY RV2iryzrgSScwBzmjb9j XHBsYWluXGYyXGZzMjJc bGFuZzEwMzNcaGljaFxm SuxxZnEaLTUvXUayA3rt ZjJcZnMyMlxwYXJ9 Lab Interpretation (test Abnormal code = 45812-4) [facility] FNA Cxvsieafftwyth8383-20-95 18:28:31 Test Item Value Reference Range Interpretation Comments Gross Description (test t4lobDSbXXYycNF3TDJt code = [id number]) WXQzh0ucy5HorPZfeYNj XIuzaPUnyzWafu64eMH7 lK04ZA5nZMYjBhZ4BYZo dwO1Mus2XEYcZDDttQDn K397q6ctk0kvlqRtfIF2 VZJaJHKtX8NqKM4rUECt qSNcA03nqYOeJXQ8DBJo FVCrlOZcENVkJVQ2BIAp kFNaD7ifECPkMX6vwfvg LZjbRGswJYMvkYD9URVi oHIfN8CwBJAxDClnGXFn wnq6KiYqSg0nvDNvuVah XOjxUAGjt6zcYNGziRDf HOK8KEfauFGpODSxCPRz EPq5TCJbKDrvbKHhTJ2u mUwjZpojlPbhr2ZzcBZc XGlkIDUxMDAyIFxcZGIg Z0USVNEmIITaSwAkTSFk VNd7HOueU5FLOCRyMZI4 OXbkNyP6JqI1UIs9PTZD We4cXJF4DQPqQSX9LMQ7 PFU8IZEvWUSeUuVoYQGf IFxcZiBBcmlhbCBcXGZz JMNgBHjrPsKvXMenZ06t kJzehB6sQgxjibKuXDW7 LKHzojqyGKjlMuHsF3Ky J8vzCC1eASHvh2A4bjEa OlxwYXIgMiBEaWZmIFF1 bPt2KSVxOTQwQRT1ONtf BLPqzISsi6coQIToWGDp vLqeSHynsj99JMM0g5mg aWVsZHtcKlxmbGRpbnN0 YUaCBNTCZYqCBdBkFY6c JFlNN2RALYhQJlfaHHA9 RHmynYN0j1dutZYdc2z0 JNrxHDH8gCIbdBblfGv7 CIDaf2NswXKgrBVosCHi fMU2NVMdJIlxm2ofDEDg ARtrm9DtGMhJHVXHFO0W SU2tzTS4T6kTUYRNP8mP uEW7n6uleZBbe1s6NRxw AHM9xPKif25tiOicJyht qNB2CAkzCaiukX2mfTUP YANXUfnLNjkkmdQzGN8A WWeFOR6TsNG1f5zxiRRg w8p9AQctYPQ5bToekHOl zfnfdw97LFX4BYSoXmOa T8PgHJEwhDPwZIxpFnns sMJ1IIwtQvmcxU6urPLT TNKSStfSBnxfwdGiCL9A PKVOWB2BqRR4DpWesOW4 OP42KMUjCSEnfTGnIBne Y176CLZfOLsaZVIbJsLq Z1NuMNXsviZIQN7WBYOu xkQuQSLuv1nbI4i7t12m rXR6GQZxcgYoEDKdmRje KiokU0fdmQJqNCCmkOLf AEnvLEPHbVEqNPWkpK5p Hw7ybVSxpG86WTK3EnD1 OdUsRkTANGH9AHCuwYAl BAHrfkGGeJuoMlS0ZTTv IGxlZnRcfnJldHJvcGVy sYMurrGnuNMgBMBdc2nv gLzgs0TndQVmNS59FRHn sLMvCEZ2EF4unYjdQVYq nwCZSWLNGRmWY1ZzDMLC YZQUSTYfKdFCSM1fJeD5 BbG3CX60CyewCZDDRHTF KZmXAP0QIMBMXESMIE0X LtKuB6dCGMRNTtRuRVLH QASOPBGpXtVIPH7rFsz5 Qfmqc3X2H4yYZNTSFkJd VEOKFDJQMKThPF0GGTPJ VIJESY7ZFQPSE91POTBB WXWUC6NQY3hXYBQey4Pg kJwzMyU6NyGcBW3hEEzZ Y9XOD4gEYMIsYMPHKDAT GFOyJY3WMPuVDG9KLBPk LWDDUEIHEVXtDlRZDF2m LBfCGQ2IVZIhKMTEQWBW SCTzMJ2ZMGWQTX1BDVSD CCDWV74ZIXXKRTSXW1QA C0pDYXWSGZNTHlEOOuLF DG6SYIBBBILDOB6MYgE9 Major Classification MALIGNANT A (test code = 9839) Diagnosis (test code = q5fyzJIvULNaxUB9IDMh 34) QUVqj0ytn1XklGUkkFOh GLymfOYrixJsgc62nRH5 wA83YS0pDIDsEtF9GVOp dgM4Oav6VNFtGVIltEDj G399w3xvg7ioneFgnAK0 GUWeHOCdG7IkSX4rKSQi cRIwC21quWHgWCB4FOLk MYEqgHAvNCBwDXJ8VSNw oAAcA7fiBPBoSS2juvmu DXkcBRswCORapBY1VBOf uPAnO9HeITTpQLhgRLWp czr3CjBiQq3cdRHavDwg JCzmX2tshI6kDjB0YIei V6eewJ3rSAu6UComRGXq pMT8vyU3YXDqfIGvE1Jl vW8sNCIqBT1koex0l0ro AQO7PDzyHHCxSvY0qbP9 NDBccGFyZFxwbGFpblxm czIwXGNmMSBBLiBSZXRy w8Mmphu2z47ymP6mIAom ZnQsIGZpbmUgbmVlZGxl LWSzyXbkMOBxs402FNSp orw7TNHbeZJzGEwdRkPu QWBGDONVDP8MKOVaV5EE RAZHO5ECJOXSTJ4XGWVD V62OQHUFKL0KHPyWBDna YSMNK8OvNq6HJHaOCRzG ITLHU27EKGofBBHjQ63w bWVudClccGFyfQ== Comment (test code = r9vjgKYhVMHmcNW7PKFa 9835) MNUee0zwj8KjsKSgeGGf XVplvBCykmRxgn67qDC1 qG12QB5sYVIwLsE9RHYs shY6Zyq3TZLwVFKctCMh T549b0bxh7xfjlZxrRT9 SYFhQMUyY3KbJO2wWNGv mDMvM22wcTIrLFO4ZMPa QIXfdNKpFTHnVEQ2VWQh jJViV2pdUHFjQK9jynnh SYfaXXroBUOztDA8TQIc eBPlM3OhWCZlBKbiILEy gti4NzMeIu6zvINsgOcv MFxwYXJkXHBsYWluXGZz ByQmF8UzVYXrTBMbjfBl jY75QBhlnhruFTC9cAMn D8IaOTd8tYNbi0pzBFTn rGcdUiMSdX57KUI6kW1l ZXRyeSBhbmFseXNpcyAo EkSmBmUqLQK0Zde8RZUg tN55joWxcdWfBvFggaXh mEWYBZMnlVolzG3pdQfr jMkcyiLaOKKyEBOsq7Wo ILoeLFE0UF09lqcsYS5l ZPK3ArJaBJ3rVAn5fAMo n8X2hYUrVKA7cQD2UTqw FHCyf4g3yPLvBLBdzxRC WHI6JRPFFIIdCSCTXFKt XEzcsJ5wDTDwYWHDWSBa WTBgxvUysN1hn4Q5eQoo VGbdcDOoKBntQ7o8DGZo KUggCYO2mPzrRHBcJEbg xPl1OLXjr2OgS7U6DrBE gMGhMsmpZRbcL7Yzi3Kk xS0jrFT3gBJcDMGmdwEv IIpvM46xe0ubXvIszTBo VVHaxnLCxTWfp0Hga4Rz RAZeGRHsm01yxREbDB68 IGNvcmUgbmVlZGxlIGJp d9FyfQQePoNpJFJuLVm8 IihxGs5cOEQ6wkWkALNf TMTfnBAwvXtefm4taFNx SWSolxmtSiPdM5WecHDp xY0akkSyPXS4kD2lJVik KBRlpoKxuHD9wH7ckFC1 ayJ1pVHnVXeoO63wl1vz LiBccGFyXGNmMVxwYXJc Q7EyQIZywl0= Retained/Biomarker l4imuLCaBOPvnLM2CURs Testing (test code = WFRqe8umt9LipFFzhBDg 9838) YLegjGNcmzMpzn62cVX5 lN68NV8jMGLzKuA3TCDe vvS7Tvx3WAPgHNWwsKXt V293c0hvv0ificDypSK9 mIfpYHWbtryaUtO5BNjn FPUhadtaZAn0RYcvEMHr wOM3CYVzoSRuW4BcLXHj GM2pyij7EFT6CMbxMBXq DwV4NXYiwDHyIBUwvXwn JVkwm410UIP3BtShFJRc qfMnjWhyhK9vQmHeKJRQ UjogIDYgUywgIDFDQlxw QGYqmAHhIQWaBXFsz51u qpumopNEOPU7qE4dTppf GXKmcQcqVQ9HXMCBFyqw ICAgNTAtMzAwICBccGFy CB1IYECEWIZ5MHVVz3Tp t9MxnEUexYMeQWPhbfLK DYpmURL8KNMbMe97DGL5 aXRhYmxlIFxwYXIgRklT CPCUIAxlQH2ktJSdwKw8 YWJsZSBccGFyXHBhcmRc cGFyfQ== Informational Points a3qmzSSyEPGatJLrLdRj (test code = 9836) ESZyUVJey6wzCDSusCNk ZzEwMzNcZnRuYmpcdWMx VSAuOtUrb4kze504bPEp x4ljHYGvRfQ7mUQzWOUn rLFuX331DKDrVEnjs3fb k7OdDAArdINbi6Q6ROMD LUsuNXNWFUf2s5xbJpBe UpN2kEIeXZlsW5xiwfKu iYKiOUXhLDz7sH26WYBh yW6qoAIrROvsucPcGiG3 DKvlKQNsRrG7XIMbfOMj TNMuH6mqARPkNZgiOODg UOpwhVFlVXE9yEpyg5V5 bGVzaGVldHtcZjBcZnMy CyMKa7PqIKs1zHddZ1Og JMIwTeZ5kUCpLGXrUPkx KIHvDDAzajV7gO21UUzp yeC4pPClr6Zcb23xl203 kC6omSTpZMS4GZYvXWVy uZNpNKSaTUI1GIRdlKGw U2itUSMdHA5ybegaNDzd MVesCDKmeMD5NUKuqQKi S1LlPATnICbhHEOnypb0 AwVzEm6jcLPzoKjyZYvp f0eaj3ggzEDfXof9XQNt HdMgWjeeNMdpl0Vis2wl SGIbla0pOSN7tACxzBua g5R2ePBmWTXkzLZkthSp LNNaPfJ2BOrvWW3fjn82 ZUXhYBW4vg7lnUZmwNkw qsVlzOFxNYkoB7ElBLEv s846NHKgU2RnKURhd6J2 teXoPqTnXXRgmRP1qyJ4 FSQoRIn2uLIztqU6kbKs vWYbG6aoqO5dFSWkVJ6t dqlgl0mkYRllOUnkFBBr wTX4rnA3SEMacIXgS9Rr mX5lLOOoKXyzTUGezoh1 MeQsPv3hsWCxwEqrRAvt YmtwYWdlXHBnbmNvbnRc cGduZGVjXHBsYWluXHBs YWluXGYwXGZzMjRccWxc qHtxwR1bDpNnBhOvNHpz NJ2nCDVoH6vwnYOiGOGo BWXfS2jiKdVwhE9gkCeo IDkorbF6YRdgQ49jIOM0 VPQ2zbBdQHHlsuNgQDVa JMEuJJ3hlIWyWUVdDJCe FH8gTLX9DKufxEEgTRNm YTZaQGTjk8WhWV7uPMJt nSMpFJQ2BHMme8MyA5Rk ITG7WFPmjQ5iFCUcfTUS VCBNRCBBbmRlcnNvbiBQ MFImc7ytP9jbTZ1rNQmo Ur8jRTYofhbeRROtvLUq yrYjDJLsDUNbPCBsz4Lp ICgkiqZqyp28TXHaNC4b t3IhD2dnyZItoZr6IZBk YRKsJBNaq8ZlERQihn80 YOJzXmeiaUotRDStZj9u Uc4lDQIcfzMkTMU8IrFH WO7uotcjcHCdiPqwyj5z XHBsYWluXGYyXGZzMjJc bGFuZzEwMzNcaGljaFxm CrdwQlHdDKDnGSehW3vg ZjJcZnMyMlxwYXJ9 Lab Interpretation (test Abnormal code = 55246-2) [facility] Aecsiviwylloyl9051-38-80 18:28:31 Test Item Value Reference Range Interpretation Comments Gross Description (test d9clcRQiMBJhpPL0FQRc code = 8567920703) KFCpd1tdo2RflJWbbXPq PLeuoLHyrqXpgx70vYJ2 zB68QM1fQOImKxY1TBBa nlT9Ywa0XTPgFGAcnYKq Z444u3npa9rpvnOwnIB4 TIFdULPcA3AyMG2iGRKn wCWiQ19zzWUuEPO2RGJl WNGngEHhBSYiWYM5CBIg jKRjW4nuWYOaAX1quvzx MZldIQwnQFRxhTR6OOBy oIXyB4PuQXUsJChaXJTb xcf9ClFnXb3yzTWfwMlz GCkzZXPfm0cfWTOhyAEq ZXY6ECnmmHXbAWLpNXLm QAv8RTVkYEprzCZyZG5p dGnzDlpmbDyql0MhgETu XGlkIDUxMDAyIFxcZGIg K4RYTLXdAOHuXvUqXTIa IBl4MNnoV8LPWCQvCJN7 ELidXoW7MwH3QSn9EFJP Ae3sYUO7CYPcSJQ6LJE6 JLB3BODuIVEqPoOdCEPe IFxcZiBBcmlhbCBcXGZz CPUxHVmuEmDuLJqbY34u pGnulQ7kPemhfwFfHXJ5 HEWrkahzGSsaIpOhA4Wu N8guGT7uKIWhg1U0ctKr OlxwYXIgMiBEaWZmIFF1 tBg5MGGjWZFvQZW6MWxz VELraOAus8vbWCTwXZBy zXwxBFdsyn32RMW6i1mr aWVsZHtcKlxmbGRpbnN0 IPkOUOXSHXdJMvLhOF0d CXmVJ7NMDTfYKbhfGTC5 ARebkZI0e0zilZWnu2n8 FFoiDNE1nAGkdCpqsWo6 GQTaa6TtbMVulWTknAMp qXI4WPTiBCuzk3ctCEMd JIjzl5OqESoHPIAJER0P ZB6vzEQ1R0qISWNXI4vY rRH7k2bjtSTmd4k4KZyf ZWQ7uKUpu86dwLawDiiy tPU3MBmyKoacdV1ofWDQ VCQHBnmVQxvkmmYqSX5I RUjKVM7BeHC0s9rztMEl w5k5GZbxYOB3wWkhoKTt tagklu93GTW0PZOeJlUw P5NqMNMaoUGnDGjtTyuc fSJ9ETsuWenqiB1wnXBE JYOEKgeNJaarfkWpNF2Y XCQPNQ9RdXI8XtOcmZK7 XF22RWRsDHVsrRFzFRhk T017LLZvERhhJWNeMqVe L6HsOWSodgWXWI1ANMBx bqWnINYho1ycS5r1o16k wTU8OEGjrmPaRPKuaGsi SxfyC8vqbOKeHSSswPGj GCkcNRZFgADbPYPywG0r Ac1qmSPwrE75THO7JqW7 VrMmAjKSCET2DFNlpYQn RFUeogMVmPsjVrK9YSDr IGxlZnRcfnJldHJvcGVy zRGbteFfwKXpMSRvk6rt jTjai9WldPVrDO84HWNs xZKaHCV8XT6jzFkgSDHq wsWERVXBQAeWP2IgMDWK EORTSYQkXlZNMF8rMrB2 JuY2QS07MmgjOZCFPNIF DHpISN7RDQNISXTJTU0N GmXeM6qMBNKVDhXoQHAQ ZCTOGMMmXuXBUL9uZon4 Mqhvx4A3O4mIQFEYHuMe YIFAQFCCEYNlQA3YBQIH UVJTZC7EFKEFK22DIHNT GSEAZ7OYF5hAHSQvl7Sl dBrdRdE6NuYfJX6iBUwZ Y6BYF7zWCCDlNFDWNWGB AUQrIQ8KCGsWHI5QYOZa NLBPWBCYWITnCeVUHJ2r GGpNPQ3FVFIdAPQHGBAP KREdLU0ECIILPM4ZGSLW OLLWR19VNBYUUHIOX7LT D2pMHZVLLBJZReCQTnWI YS3CFYJKECHKJA1HMdG8 Major Classification MALIGNANT A (test code = 9839) Diagnosis (test code = i6wbwZWtOCNexWB4DYQt 34) TYOdb3fiu6DebJVeaHGy CPriaWUeurYkwl44lMU7 sC24DL0aXLWdRpK4SRCh loR4Fhu0XIEtOQCrvJAj D398i8rrq8buelLrqSW5 WNWzLBBvR6IiVM5kXSSx pDRxB18yiZKnLLU6JPGh URXprOUySRGpMKX8RSRb eXCsK5avKJTfSR8rfsab IXgxAGqyTEPtqKF9BMOt bXIpZ8TaJGJoTSkgGMTc kmu0MeYhKm4yrKHmeAag EEeqA9qeyW0pYoW4CDzc U1xskS9yTPc0TMghHQHu bKJ2ijL7ZVJykFNmW6Aa tH7pIRClVV0ucdn5w5fb YPK3ZQmgDHWfAyI3qnQ6 NDBccGFyZFxwbGFpblxm czIwXGNmMSBBLiBSZXRy z1Jkaak9m45mkW8vSYyh ZnQsIGZpbmUgbmVlZGxl DAVuhYtnVPUvg946HAYc puc9PDCzkPJiGCnjZjSu GCKZBGVXZJ6JIJHsX5UH BGVQY8NDUNMINH4QVVYY H80OUDLZEB9USOjEEWuh LSOJK3JiTi8APNpXABfM FAFET45FXPplPNChS56d bWVudClccGFyfQ== Comment (test code = y2fwuVWyRFEvuQY7GPDt 9814) CWWnb6gtu6HltBMhlTLn DBbvuMIqowZjxz49qTK6 bV60QY9dWJOxVwT2RSSi ohP1Iuu8OJRkBVOjmBVj L475x9mzr3hrkgVnqKF4 PMOuRAWgV1KhPX5kDNAc dFLhQ52swLXnYDC0NJRc DYPwnKCxOTGrAON6XZHh yMFjE7ltPYMsBL7vinfv IIpnEFvnXYFgwRT4CQZi qGVoV8UkEGIuFLuqPCWe bhr4PcUfVf2ftNLneJhq MFxwYXJkXHBsYWluXGZz PzAcC6ZeWNZsRVMadoJc oL67RTfbajatTAN5hUSz R1EiWOm9wZSay1cnOPTy nEklFjNZzY84KAX7qK9c ZXRyeSBhbmFseXNpcyAo TsWaJhRmLTQ8Qcb7YNRy oG00lqQgbtIvTpWicpHb rTEHETVqrZvilP4ceTma fBkqthBkAJSmKOFnk5Ck IYiaOMO4PE55cpjvTQ8d QJP2UeCcQU0nCZo8xIDp g5C2dBKnJFF1fSG5NAss GJOmy1g3lFRdTYDbgqEQ YOB7XUJFVBRoHWPLFZTj XXvneR2eEYTuIXVTQWKv BUFinsRgfI6az3R7eRyn KFrmmGXeFSfaN8y1VOTx MByqMLA2lDndVHYdOOad dXs1VEEpo0AfZ5K4TtSA mKRwCffpFIdtU7Qom6Dg dD5acKC3qXTuCOWwynIz WWrpD81mi3zbQbJogEGz EETsitWNeTJrj5Rco8Ue YHBnCFHwi47duLWcDO63 IGNvcmUgbmVlZGxlIGJp e0QktPBiVqJzJLPoANt7 XesvMp4wMZU8uuAsOMEl LKIsnYOlaIfczy2xtWOv VSIdcyolLuFuA8LuxCAn gB1fggEtZBI6nX5mLWzk MQNmwyZdiST0uI7edTQ4 gfD3vVTsMFqoR40jx5tn LiBccGFyXGNmMVxwYXJc Q3TrGZNjku8= Retained/Biomarker p2sldUOrIKSvvMG9IFSm Testing (test code = WYGqs0isu1OgsZBxaRNy 9838) BCivhQFqvpMokl59cUE5 nA41YX0uBSGoDiJ0FJXc csA1Fre4BKLdCUIfrXPc M066f7dpz3wvbxWvrLW3 aFgaGQWwoejqNdL2NJog RWJecechLMa3GIjyJYKo yOS2LBGzzCEuR2IvFXLx ER3fcha4PQJ4SNoxGSQe ZfW6YUSpuKXtSFPnvWxc DBkub737HBZ2FgNhOWLv ubGotGjnyM7kEnQoZLVU UjogIDYgUywgIDFDQlxw NSOugIKlXHXqVXEyn62h bmueniDVJZX3eP1xSmmf QTKfyJvtGU1EXUZWIlfb ICAgNTAtMzAwICBccGFy KO9DHYYFWHL4JXZEn3Be c3YjnIXbdDAsCLDqzzSY ORvxGDR7BUGdIr91GSY2 aXRhYmxlIFxwYXIgRklT ZDNDCIbuFH9aoKVreSl3 YWJsZSBccGFyXHBhcmRc cGFyfQ== Informational Points x2mhiBTuDXYilFUpNpCy (test code = 9836) DLZnOSEis0gsJNErgIZb ZzEwMzNcZnRuYmpcdWMx DAMsRkNmb3xqc509wPAe f5kaZQDvPlL2hHPnQLYz zSPhE532YLGgXXufh0zl z3VdGSSewCHjv5D4WAJN MNiuOESAHKf5a9iwQrNn VrK3wNKaYXteY1nhudNa oSDfBBKzFKz3oO94ZIZk bS8huPYpIXxkglDtUgI9 YLqaBQXtMgW0GVRfmUNj UGLlD0bgVSXvWMgxMNDv IBubkPTvZTX7cDhqo4M6 bGVzaGVldHtcZjBcZnMy UwSUo1ZmBCe7uNeiP7Ly REZjIiL6uSTgTJArQMrc ERUpRUPgdtI5rX99BSzy tiW5hFTpy6Zyz70ha128 iQ8npLYvXLG2RGFsCXDm hMQnLQMaIAJ4VIQagNNd O2seJULtVF3xrlqwDFzz WWdfEVKvwWT8TOXlyCFb T3NyQFTyWPxaJGNbehb7 LkCdEj7jxCWfhAbcHIoh h4vme5wgcWVkUcs8VHLg CcNqSskvTYsnw5Vty1mo VQOcvv3hKTU0pCIqqOhv z3H0hVJzWZTjmKJssvGi EONcNoC0KSdlAW0ure60 PGZdYJX1og6jkYLpkBba exQjvDHeCEhpL8BpPFPd m703NCSvN3JjIZBcw7J8 hiJvXoKgRTGgxYV6ckQ5 GOBdHXq9qANrrpZ8khEu gFQzP8cvuH7mEMYdOL7z siqee1zrEIpdFJbqIQIa qIU0rnX9HPOjdNDvY5Sc aX9lBZXrTCffPNKzrhx7 VdHsCv7tjVQkdWxjBLji YmtwYWdlXHBnbmNvbnRc cGduZGVjXHBsYWluXHBs YWluXGYwXGZzMjRccWxc mKxhzT5kUrReItTpOUhe BH0vWUDeS3eggXHcIFCs SUPnL5pjQeOieF4ppTzp WCbgvfE5COcjC09cWVU3 SWQ3hyJlSERzrkBcVTFu UNEzOY6mhMEoZLQaISHi WW5eLJH5PAwwqCErFWTq REWfXDOzo3ExPC8uXMBu eBTvNLD2YDXhq4NvU2Uw KOX3QTQhuN5dZNEzmNKE VCBNRCBBbmRlcnNvbiBQ FUQjx6qyH9ctRA4uIDbc Qu5qMTRrwhjmFYQuwXUd vgZoPKJkFGFkWMFyl8An QMhwhtRjjf62ELBuAD5z m5UxD5vpnTVvyCj8KSMz JMQnMVApx2WxJWCbbf66 EZOnJweujSnsWYNtLl6q Be3gRXMqlaWcBFH1PfUO EC0bqabuhFCmxZqvfo2g XHBsYWluXGYyXGZzMjJc bGFuZzEwMzNcaGljaFxm RxftTwGkJHBvKHcoJ0ru ZjJcZnMyMlxwYXJ9 Lab Interpretation (test Abnormal code = 77542-1) [facility] FNA Wwjgjtvahtkbzz0863-37-88 18:28:31 Test Item Value Reference Range Interpretation Comments Gross Description (test y5joyCZdMVZdzSD5RPXd code = 6512190019) RDXoo4tck2HewRQubVDg IMdxfLLcwfQciq00aWS0 hP06DI6lEOPzDaY9CIDc zbQ0Yhd8YARlAESurXRt W984i9ecy4hlsjTaqZG6 DONxTGFgY5IaAA4zRJHj bJSpX21wvIUdFYN0OKEf LCHzhBVwQXTfZNE7CEZt vKWfZ4hbKLRwFS6fqocx JEmvRWahTLLqgXP6WLFs tNHpO0KiLABeHTboRTUo ogs3XqTnEs1kgMBirXlz VFsrBTEsw1atENZtfVCn JUN3MJqkxSGtJGLjZGNi XXy6OBTyGByqpHJcGR8g eHcjOqewiVagq2MltECh XGlkIDUxMDAyIFxcZGIg A1IMFJUdOYNoJeWpJLZz KEh0CGabT2UTWSXlTEG8 HUnlLsE3LxU7ONy5KAGG Mk8dIZS3LYQwAUA8ABC3 FQC9FGDzXCVmDyFxROJf IFxcZiBBcmlhbCBcXGZz VAYwYFmiMfAkLNdgX38k zCdekM4nNvftgiUuUXH4 AQYdamswBLwnJyRyE9Zp X5lrTM2tLKXxi5E5udVd OlxwYXIgMiBEaWZmIFF1 rLa5QBReEAOuMKD1TZhi IBIwlJWdm0ryMNXmKBSp kMplKEigxv33OEA9p1so aWVsZHtcKlxmbGRpbnN0 UQeLCJUKHLcKUmEdBJ2d CBoVO4DVVBlURviuZFB1 LRpquSE2u5knmFFov6i8 FZtcEUF5pKVbrPmwmAx9 GWIwu2CmbQOwqAKtkETj uFV6JKRtIMyyk4sqZZOy BWusi2EnLKgQSFBVAW2B FY1gvJP6D1xQTPDNL5eW oWK4b0gehNLir9b2TGpd OGF5yRJgx86noAbsKhjc yKX8ESxaWxewgE3jtPIL ICXJEamRKnkbueUxNV8L QNbNYE8JpPJ7r8konHIt r3x8YEreYAO6dZhwqLFx ssjccy22CWW5KSPaNxMi F2ExVMIzkUXiUAudChwc fUI4OOtfMriavI2ioTXI IPFEUsiQLcnmfqWzRJ5F ZNXWZX9OeLG8QwTkpKG0 JP52NFXnIZRsvNVoGZtq K890JFDyLQfeYNQgZcAs K9SaURQvzsOXGV5BNMXa scTkDFJhq8hvX5c8c18l uLN7UYFjagVlHRNxiMff IkjeH4prnWLnISVwlHJk JCwpVNPCvBXcMHQhpN2e Qe9ruUHyrZ55NTS6GqF5 OwZeRtTVVEH9XZTjfGYy BKAknhIXjIpaEnL8MKRr IGxlZnRcfnJldHJvcGVy eLNwpnMmzYGfAVPgz8ne aUahw5RzlKLlSF28XIDu lQFmPRK2DA5ciSezBAVz qbNYGYBHPMhBA6XhEFRA JVJDTOPuWjRUBS0pTfG2 LvI5PD12QkxuZJPKREWH XAvNRI2BROJOFEPJMI9J LjYfB6iSHNNUXqXkFWUW EAWEEVAbSzAPTA8yPbp5 Pjttx5J4T9gVELEGChVh EGGSUSSTKZUeZU8XNUFX DUSVMH3SWUGMD44AZKHL DYFMQ5SCN2gWLGKja2Gf kEhbSkS7VySrPV0rNHwU P4DGK4nXQEEdPDMZJUMS DDWlBI6PZVgAPP8HEHBw AMHKQEWVZBSgYzOYKC6e LZeTOF1NPDYrDGMXKQSB EZRkQA0TMXTPYS2MNLQY HJHHD60FICOCAGXNN9WM T7nMAHUGAARGRmKXCpMJ SY0OTBRELWWANR5HScR3 Major Classification MALIGNANT A (test code = 9839) Diagnosis (test code = b4groKVpUIHjdXY7KYBi 34) HKQmm3opc6FsqOYbzNEy ZLuufPTfefHkcg52pDZ4 cQ00QK0kKZVwUeP0XMBi mqB0Ryn0SCEbXPYxuSHv B836u0jpm4lwptMifWB8 GSPhWOPcY4NgOI4iCOFn bDLbF22xiGClLPA7WHUp OSZupUWcSWEaIPY9BIAx zAXpF6miSTTaJC1rwupc AFhjKBifATBtzAF3OXUe fJIsG0FdLLHqBLskXBRz psh8UhStQw5rvGGyqVcx IQdwJ9kgcP4sPlB2IKjo Q9rjgD4dDGr9AQtgUXDr bBS0vvQ1QVBcoMMjV5Zg rJ5fGFHtQX0abwl1x8bj KUS4DFccJRSnCjX1guV9 NDBccGFyZFxwbGFpblxm czIwXGNmMSBBLiBSZXRy f2Ednzj8n91dvZ9fVCir ZnQsIGZpbmUgbmVlZGxl KRFoiGmhFXFnx670QWLj vjs0MDXdqFLxGKrhPmCd MPCYNJDFYW1QDSGiB3CR HREKJ6FEBYKDAZ3OXJAD E92EDNPELM9APHkORHtr EBITF6StFj7BFEzSWMvH LCEDF99WTMayKEPtU28v bWVudClccGFyfQ== Comment (test code = u2oywHBoENOdaIE3NJBx 9835) WKXul8bch6RdoQNzoPKv LVflqSPlmvLxtj29mLN7 eQ17AH5tNLUxOvX5NBEt gmC5Gxb1DFOiVXUdkWXy Q429u9nns1jxbsZmgUJ1 MXGzJHGgF5IpYZ8aSVQb fCGaU06hbGZjVBV8UVQl LUPzrGKgRAWcYFP2NAEe gRSbC8nrRCJuMM0lgcyf ISshCVcbTUJdzGY4HEMz wEOvJ0VtQWEaNAybXYKb fxc3RcLwJm9rlHDwkPrx MFxwYXJkXHBsYWluXGZz SuQcJ2RhUFUvTHSabxBi mM42SYfpiqqpIPO6uQRr E2SpNOk3yAMgy1gvYGIi kCewRyJXmS26XTY7aG5d ZXRyeSBhbmFseXNpcyAo XfNfVdWtCYY5Msb0AMMj wF51txQxxxByOfJibjUj qBDEAQBmxLaopD1vrYfh lDmkqvPySBUyUTEgz9Pz VLzyBTK0RK18ynalHH2a VFS8WpQlOJ0cJLi0cATx v2C9mKIwWZA7uPH4HSav ENRcr0v3gDByFDEjlbQV QBZ1TJZNYULmLXFEXTNv NWtreZ8sSTWcYPVGLPDp FUXmxxIqsK9xv6I9qCif YUeslHNsPAybZ0c7GUPj JEniNSK0oUxwACGpSRno yUh6TZHcy9QqI2S1YcAT rWGrRuvfLEywZ5Cug5Jy aR4ggTK3mCUbRXTkjzGe SDfkP98wt0suNpYptWPa YWAiqwKTzINbk2Ljm4Pt RBQaFDNnn71vfMDjHN66 IGNvcmUgbmVlZGxlIGJp y0IvdEZmVaZoHUNiAZj8 HwajHw7iHJE7psEyLXFv VYEofJDjrRdoqx7ypTGa WTTpggwzZlOaH4JwbPXl nG2tptNjBXY6cQ7oDPdl FRAsvgJkoIB4zB7qpBT7 ljB4gVAeGBpmG01il7wz LiBccGFyXGNmMVxwYXJc F3HuIFBbib2= Retained/Biomarker k2bemFOpQQPmaVC1RVCo Testing (test code = OBZzn4cby9XraBStxWMp 9852) FWervEVjkrQtmv42jJK7 fL50VF5mUYYbWzQ1QCHn tmX1Cqk3SVHyICMpxYYe G040x7afs7jlzwToxWD1 yDskNCUqdasyUcY5TWbv KVHvchhuFFe7KBcgZJGi rLD4JLRebNUdB5OiDTJj BB0zekv7RBI7CQaoXQGj GwU6OIMtaFEhFNMqzOsm TOqej330LFS7PeFfSXJl teSmrGczdF8rMcJxNBPU UjogIDYgUywgIDFDQlxw UEYshNHrDJJeAEZsp14l axvomoNFTDJ5jM2pVmxq CAJtrDjvUY6GUGEDIqpf ICAgNTAtMzAwICBccGFy KL9RTQRYNVO3AKVBf6Ey x3VhfFAvuWGmBJBzgbRI KPtmBUU5DGYeTx44JCG3 aXRhYmxlIFxwYXIgRklT TGLEBOynLV2taFZqmSf2 YWJsZSBccGFyXHBhcmRc cGFyfQ== Informational Points i3aicXGzWMLjlCWoFzZb (test code = 9836) GINaIQLnq0vtUTBekLKu ZzEwMzNcZnRuYmpcdWMx YWImOvOqz9esb059uTKj c2cyOLGgSsO9mDHuSNQw cZGuC331XNLpDCnhw8nx w7NkRLZluVXcy4J1SOKQ CAynNKYVCUt2t1rmXxBn NuC5gNLoTBjaG5eepfDw zRAcNZEoMGe2nA06FZIe dW0nnEPxBFyoboRxGcO9 KDziCNXjXhB6FSBflGQn JKUoV0kcWNPeIDnxBJWc BZmefMCjJIE1gQxoh4E8 bGVzaGVldHtcZjBcZnMy ZtLFc2KuVCq3jSxrS4Vj OYMgXeT2dGVoZBBiDHnz SJGvRBWafnO0mU45SHmn rcL9jSGdt1Cig81by425 nP5qxDIsZTA8GPZbLLXs qBItQPXwJJT5YPXfsXTb Z2igGMIhHD7vtlpnGCjc DFggPLNllWV7JJAqtZZr R5InBCVjENkiSYMdqkq6 VuAlQm8oyDLijOgzECwz s7men4jojCOmMxj6LGAq IhJsQfqtBNeiz9Zeu1jo CHZbai7vXHA0sXCpcOrm f7X8rWUqULTomQLptwLg OVMtJhK5JMdsNP8yqs65 OKUjSXY1za3hoSLprYwz lbHoqIAcCNuuA7NzBSRg j980LNIcH7YxTYWok3T9 iyRqMkEoPXMfoPN3ksF0 AOBzQRr9eZDrxqJ5hrGq rBSsO7fgqN0qFOUeOO9w ilqrl7xyMRxmCEfpUADr yTJ0zyI2HWIgtNMhW4Gs aX2cGVNjUTheIBHdcma8 PsFaIe9zlEYnuYdzUVru YmtwYWdlXHBnbmNvbnRc cGduZGVjXHBsYWluXHBs YWluXGYwXGZzMjRccWxc tTjoeI6qWcZnAxStQTqe CL1tQEJvB0pjcEOtXIXk YIJsX2wmDpLntH9spJoq PWsibwP1YUplF84yHLT5 XOV0egOpLXAqabEoUYEf WRVnAC4umXKaUMLjLEUl KQ7aBHD8WCgxzCPoOGOv NULxGJLir6MoZN4xXGLy tCMtHMO3BFAci7EsN9Sr DGQ0SRUjqT5kKBSwbAZD VCBNRCBBbmRlcnNvbiBQ WDIax2lbK8tfPI0yNAfe Hk9hIVFhihsdKQQxjSKm wuQtERJnPPOoBDZsv7Iu OAfuozGcja30PJZqSG5j p3SmF6xuuAGalJh1GREh BCFzQWVut2HbFHAude48 CYXzPzerxMglUCAdFm6e Pf1bCKMqgnHjANA1ReDY BF8zenmuhEBkqMbhlw2x XHBsYWluXGYyXGZzMjJc bGFuZzEwMzNcaGljaFxm JqzpEdXyBJShHOqlQ5dy ZjJcZnMyMlxwYXJ9 Lab Interpretation (test Abnormal code = 56054-5) [facility] B Total Ig Core Ab (SCREENING) (anti-HBc total Ig; HBcAb total Ig)2021-09-21 18:10:06 Test Item Value Reference Range Interpretation Comments HBcAb. (test code = 5742) Reactive Non Reactive A Lab Interpretation (test code = Abnormal 58419-2) [facility] B Total Ig Core Ab (SCREENING) (anti-HBc total Ig; HBcAb total Ig)2021-09-21 18:10:06 Test Item Value Reference Range Interpretation Comments HBcAb. (test code = 5742) Reactive Non Reactive A Lab Interpretation (test code = Abnormal 40424-4) [facility] B Total Ig Core Ab (SCREENING) (anti-HBc total Ig; HBcAb total Ig)2021-09-21 18:10:06 Test Item Value Reference Range Interpretation Comments HBcAb. (test code = 5742) Reactive Non Reactive A Lab Interpretation (test code = Abnormal 39500-4) [facility] B Total Ig Core Ab (SCREENING) (anti-HBc total Ig; HBcAb total Ig)2021-09-21 18:10:06 Test Item Value Reference Range Interpretation Comments HBcAb. (test code = 5742) Reactive Non Reactive A Lab Interpretation (test code = Abnormal 23704-6) [facility] B Total Ig Core Ab (SCREENING) (anti-HBc total Ig; HBcAb total Ig)2021-09-21 18:10:06 Test Item Value Reference Range Interpretation Comments HBcAb. (test code = 5742) Reactive Non Reactive A Lab Interpretation (test code = Abnormal 91334-3) [facility] B Total Ig Core Ab (SCREENING) (anti-HBc total Ig; HBcAb total Ig)2021-09-21 18:10:06 Test Item Value Reference Range Interpretation Comments HBcAb. (test code = 5742) Reactive Non Reactive A Lab Interpretation (test code = Abnormal 65102-3) [facility] B Total Ig Core Ab (SCREENING) (anti-HBc total Ig; HBcAb total Ig)2021-09-21 18:10:06 Test Item Value Reference Range Interpretation Comments HBcAb. (test code = 5742) Reactive Non Reactive A Lab Interpretation (test code = Abnormal 29587-6) [facility] B Total Ig Core Ab (SCREENING) (anti-HBc total Ig; HBcAb total Ig)2021-09-21 18:10:06 Test Item Value Reference Range Interpretation Comments HBcAb. (test code = 5742) Reactive Non Reactive A Lab Interpretation (test code = Abnormal 88280-4) [facility] B Total Ig Core Ab (SCREENING) (anti-HBc total Ig; HBcAb total Ig)2021-09-21 18:10:06 Test Item Value Reference Range Interpretation Comments HBcAb. (test code = 5742) Reactive Non Reactive A Lab Interpretation (test code = Abnormal 75154-1) [facility] B Surface Antibody 2021-09-21 16:44:25 Test Item Value Reference Range Interpretation Comments HBs Ab (test code = 78182) Reactive Non Reactive A Lab Interpretation (test code = Abnormal 12843-0) [facility] B Surface Antibody 2021-09-21 16:44:25 Test Item Value Reference Range Interpretation Comments HBs Ab (test code = 76247) Reactive Non Reactive A Lab Interpretation (test code = Abnormal 16350-5) [facility] 16:44:25 Test Item Value Reference Range Interpretation Comments HBs Ab (test code = 49980) Reactive Non Reactive A Lab Interpretation (test code = Abnormal 45282-7) [facility] 2021-09-21 16:44:25 Test Item Value Reference Range Interpretation Comments HBs Ab (test code = 10446) Reactive Non Reactive A Lab Interpretation (test code = Abnormal 92524-9) [facility] B Surface Antibody 2021-09-21 16:44:25 Test Item Value Reference Range Interpretation Comments HBs Ab (test code = 95421) Reactive Non Reactive A Lab Interpretation (test code = Abnormal 14583-2) [facility] B Surface Antibody 2021-09-21 16:44:25 Test Item Value Reference Range Interpretation Comments HBs Ab (test code = 36065) Reactive Non Reactive A Lab Interpretation (test code = Abnormal 73911-9) [facility] B Surface Antibody 2021-09-21 16:44:25 Test Item Value Reference Range Interpretation Comments HBs Ab (test code = 36441) Reactive Non Reactive A Lab Interpretation (test code = Abnormal 71612-4) [facility] B Surface Antibody 2021-09-21 16:44:25 Test Item Value Reference Range Interpretation Comments HBs Ab (test code = 66053) Reactive Non Reactive A Lab Interpretation (test code = Abnormal 19116-1) [facility] B Surface Antibody 2021-09-21 16:44:25 Test Item Value Reference Range Interpretation Comments HBs Ab (test code = 52838) Reactive Non Reactive A Lab Interpretation (test code = Abnormal 57577-8) [facility] Virus [id number] 16:44:03 Test Item Value Reference Range Interpretation [...] results. Lab Interpretation Abnormal (test code = 00160-0) [facility] [id number] 16:44:03 Test Item Value Reference Range Interpretation [...] results. Lab Interpretation Abnormal (test code = 70843-0) [facility] [id number] 16:44:03 Test Item Value Reference Range Interpretation [...] results. Lab Interpretation Abnormal (test code = 26789-8) [facility] [id number] 16:44:03 Test Item Value Reference Range Interpretation [...] results. Lab Interpretation Abnormal (test code = 94997-3) [facility] [id number] 16:44:03 Test Item Value Reference Range Interpretation [...] results. Lab Interpretation Abnormal (test code = 29197-9) [facility] [id number] 16:44:03 Test Item Value Reference Range Interpretation [...] results. Lab Interpretation Abnormal (test code = 76717-0) [facility] [id number] 16:44:03 Test Item Value Reference Range Interpretation [...] results. Lab Interpretation Abnormal (test code = 67460-9) [facility] [id number] 16:44:03 Test Item Value Reference Range Interpretation [...] results. Lab Interpretation Abnormal (test code = 70139-1) [facility] [id number] 16:44:03 Test Item Value Reference Range Interpretation [...] results. Lab Interpretation Abnormal (test code = 75061-8) [facility] B Surface [id number] 16:42:33 Test Item Value Reference Range Interpretation Comments HBsAg. (test code = 5747) Non Reactive Non Reactive [facility] Surface [id number] 16:42:33 Test Item Value Reference Range Interpretation Comments HBsAg. (test code = 5747) Non Reactive Non Reactive [facility] Surface [id number] 16:42:33 Test Item Value Reference Range Interpretation Comments HBsAg. (test code = 5747) Non Reactive Non Reactive [facility] Surface [id number] 16:42:33 Test Item Value Reference Range Interpretation Comments HBsAg. (test code = 5747) Non Reactive Non Reactive [facility] Surface [id number] 16:42:33 Test Item Value Reference Range Interpretation Comments HBsAg. (test code = 5747) Non Reactive Non Reactive [facility] B Surface [id number] 16:42:33 Test Item Value Reference Range Interpretation Comments HBsAg. (test code = 5747) Non Reactive Non Reactive [facility] B Surface [id number] 16:42:33 Test Item Value Reference Range Interpretation Comments HBsAg. (test code = 5747) Non Reactive Non Reactive [facility] [id number] 16:42:33 Test Item Value Reference Range Interpretation Comments HBsAg. (test code = 5747) Non Reactive Non Reactive [facility] B Surface [id number] 16:42:33 Test Item Value Reference Range Interpretation Comments HBsAg. (test code = 5747) Non Reactive Non Reactive [facility] 2021-09-19 00:43:53 Test Item Value Reference Range Interpretation Comments CCP Ab-Sanchez (test <15.6 See_Comment Test Perf ormed by:Sanchez code = 83304-4) [facility] [id number] [place], [place] [address]Lab Director: Jose L Nieto M.D. Ph.D.; CLI A# [id number] [Automated mess age] The system which ge nerated this result transmit elbert reference range: <20.0 (N egative) Units. The refe rence range was not used to interpret this result as normal/abnormal . [facility] 2021-09-19 00:43:53 Test Item Value Reference Range Interpretation Comments CCP Ab-Sanchez (test <15.6 See_Comment Test Perf ormed by:Basom code = 61756-4) [facility] [id number] [place] [address]Lab Director: Jose L Nieto M.D. Ph.D.; CLI A# [id number] [Automated mess age] The system which ge nerated this result transmit elbert reference range: <20.0 (N egative) Units. The refe rence range was not used to interpret this result as normal/abnormal . [facility] 2021-09-19 00:43:53 Test Item Value Reference Range Interpretation Comments CCP Ab-Sanchez (test <15.6 See_Comment Test Perf ormed by:Basom code = 39439-4) [facility] [place] [address]Lab Director: Jose L Nieto M.D. Ph.D.; CLI A# [id number] [Automated mess age] The system which ge nerated this result transmit elbert reference range: <20.0 (N egative) Units. The refe rence range was not used to interpret this result as normal/abnormal . [facility] 2021-09-19 00:43:53 Test Item Value Reference Range Interpretation Comments CCP Ab-Sanchez (test <15.6 See_Comment Test Perf ormed by:Basom code = 30301-0) [facility] [id number] [place] [address]Lab Director: Jose L Nieto M.D. Ph.D.; CLI A# [id number] [Automated mess age] The system which ge nerated this result transmit elbert reference range: <20.0 (N egative) Units. The refe rence range was not used to interpret this result as normal/abnormal . [facility] 2021-09-19 00:43:53 Test Item Value Reference Range Interpretation Comments CCP Ab-Sanchez (test <15.6 See_Comment Test Perf ormed by:Basom code = 60408-0) [facility] [id number] [place] [address]Lab Director: Jose L Nieto M.D. Ph.D.; CLI A# [id number] [Automated mess age] The system which ge nerated this result transmit elbert reference range: <20.0 (N egative) Units. The refe rence range was not used to interpret this result as normal/abnormal . [facility] 2021-09-19 00:43:53 Test Item Value Reference Range Interpretation Comments CCP Ab-Snachez (test <15.6 See_Comment Test Perf ormed by:Basom code = 39535-6) [facility] [id number] [place] [address]Lab Director: Jose L Nieto M.D. Ph.D.; CLI A# [id number] [Automated mess age] The system which ge nerated this result transmit elbert reference range: <20.0 (N egative) Units. The refe rence range was not used to interpret this result as normal/abnormal . [facility] 2021-09-19 00:43:53 Test Item Value Reference Range Interpretation Comments CCP Ab-Sanchez (test <15.6 See_Comment Test Perf ormed by:Basom code = 78352-4) [facility] [id number] [place] [address]Lab Director: Jose L Nieto M.D. Ph.D.; CLI A# [id number] [Automated mess age] The system which ge nerated this result transmit elbert reference range: <20.0 (N egative) Units. The refe rence range was not used to interpret this result as normal/abnormal . [facility] 2021-09-19 00:43:53 Test Item Value Reference Range Interpretation Comments CCP Ab-Sanchez (test <15.6 See_Comment Test Perf ormed by:Sanchez code = 91313-2) [facility] [place] [id number] [place], [place] [address]Lab Director: Jose L Nieto M.D. Ph.D.; CLI A# [id number] [Automated mess age] The system which ge nerated this result transmit elbert reference range: <20.0 (N egative) Units. The refe rence range was not used to interpret this result as normal/abnormal . [facility] 2021-09-19 00:43:53 Test Item Value Reference Range Interpretation Comments CCP Ab-Sanchez (test <15.6 See_Comment Test Perf ormed by:Basom code = 77706-8) [facility] [id number] [place] [address]Lab Director: Jose L Nieto M.D. Ph.D.; CLI A# [id number] [Automated mess age] The system which ge nerated this result transmit elbert reference range: <20.0 (N egative) Units. The refe rence range was not used to interpret this result as normal/abnormal . [facility] [id number] 10:11:48 Test Item Value Reference Range Interpretation Comments Rheumatoid Factor (test 25 See_Comment H [Au tomated message] code = 70793-9) The system [employer] A/S generated this result transmitted ref erence range: <=14 IU/ mL. The reference r sam was not used to interpret this result as normal/abnor mal. Lab Interpretation (test Abnormal code = 34478-7) [facility] [id number] 10:11:48 Test Item Value Reference Range Interpretation Comments Rheumatoid Factor (test 25 See_Comment H [Au tomated message] code = 82640-1) The system [employer] A/S generated this result transmitted ref erence range: <=14 IU/ mL. The reference r sam was not used to interpret this result as normal/abnor mal. Lab Interpretation (test Abnormal code = 49020-4) [facility] [id number] 10:11:48 Test Item Value Reference Range Interpretation Comments Rheumatoid Factor (test 25 See_Comment H [Au tomated message] code = 96945-6) The system [employer] A/S generated this result transmitted ref erence range: <=14 IU/ mL. The reference r sam was not used to interpret this result as normal/abnor mal. Lab Interpretation (test Abnormal code = 21057-7) [facility] [id number] 10:11:48 Test Item Value Reference Range Interpretation Comments Rheumatoid Factor (test 25 See_Comment H [Au tomated message] code = 24954-7) The system [employer] A/S generated this result transmitted ref erence range: <=14 IU/ mL. The reference r sam was not used to interpret this result as normal/abnor mal. Lab Interpretation (test Abnormal code = 27598-9) [facility] [id number] 10:11:48 Test Item Value Reference Range Interpretation Comments Rheumatoid Factor (test 25 See_Comment H [Au tomated message] code = 33387-3) The system [employer] A/S generated this result transmitted ref erence range: <=14 IU/ mL. The reference r sam was not used to interpret this result as normal/abnor mal. Lab Interpretation (test Abnormal code = 65899-0) [facility] [id number] 10:11:48 Test Item Value Reference Range Interpretation Comments Rheumatoid Factor (test 25 See_Comment H [Au tomated message] code = 74351-7) The system [employer] A/S generated this result transmitted ref erence range: <=14 IU/ mL. The reference r sam was not used to interpret this result as normal/abnor mal. Lab Interpretation (test Abnormal code = 49582-6) [facility] [id number] 10:11:48 Test Item Value Reference Range Interpretation Comments Rheumatoid Factor (test 25 See_Comment H [Au tomated message] code = 64831-3) The system [employer] A/S generated this result transmitted ref erence range: <=14 IU/ mL. The reference r sam was not used to interpret this result as normal/abnor mal. Lab Interpretation (test Abnormal code = 65095-8) [facility] [id number] 10:11:48 Test Item Value Reference Range Interpretation Comments Rheumatoid Factor (test 25 See_Comment H [Au tomated message] code = 06883-0) The system [employer] A/S generated this result transmitted ref erence range: <=14 IU/ mL. The reference r sam was not used to interpret this result as normal/abnor mal. Lab Interpretation (test Abnormal code = 46068-4) [facility] [id number] 10:11:48 Test Item Value Reference Range Interpretation Comments Rheumatoid Factor (test 25 See_Comment H [Au tomated message] code = 48364-5) The system [employer] A/S generated this result transmitted ref erence range: <=14 IU/ mL. The reference r sam was not used to interpret this result as normal/abnor mal. Lab Interpretation (test Abnormal code = 02613-4) [id number] 19:37:46 Test Item Value Reference Range Interpretation Comments Sed Rate (test code = 34 See_Comment H [Auto mated message] 9167-7) The system [employer] generated this result transmitted ref erence range: 0 - 9 mm /hr. The reference r sam was not used to interpret this result as normal/abnor mal. Lab Interpretation (test Abnormal code = 17583-7) [facility] [id number] 19:37:46 Test Item Value Reference Range Interpretation Comments Sed Rate (test code = 34 See_Comment H [Auto mated message] 9177-7) The system [employer] generated this result transmitted ref erence range: 0 - 9 mm /hr. The reference r sam was not used to interpret this result as normal/abnor mal. Lab Interpretation (test Abnormal code = 22871-4) [facility] [id number] 19:37:46 Test Item Value Reference Range Interpretation Comments Sed Rate (test code = 34 See_Comment H [Auto mated message] 3441-7) The system [employer] generated this result transmitted ref erence range: 0 - 9 mm /hr. The reference r sam was not used to interpret this result as normal/abnor mal. Lab Interpretation (test Abnormal code = 07366-0) [facility] [id number] 19:37:46 Test Item Value Reference Range Interpretation Comments Sed Rate (test code = 34 See_Comment H [Auto mated message] 7-7) The system [employer] generated this result transmitted ref erence range: 0 - 9 mm /hr. The reference r sam was not used to interpret this result as normal/abnor mal. Lab Interpretation (test Abnormal code = 56207-5) [facility] [id number] 19:37:46 Test Item Value Reference Range Interpretation Comments Sed Rate (test code = 34 See_Comment H [Auto mated message] 7-7) The system [employer] generated this result transmitted ref erence range: 0 - 9 mm /hr. The reference r sam was not used to interpret this result as normal/abnor mal. Lab Interpretation (test Abnormal code = 59549-7) [facility] [id number] 19:37:46 Test Item Value Reference Range Interpretation Comments Sed Rate (test code = 34 See_Comment H [Auto mated message] 4536-7) The system [employer] generated this result transmitted ref erence range: 0 - 9 mm /hr. The reference r sam was not used to interpret this result as normal/abnor mal. Lab Interpretation (test Abnormal code = 26526-3) [facility] [id number] 19:37:46 Test Item Value Reference Range Interpretation Comments Sed Rate (test code = 34 See_Comment H [Auto mated message] 7-7) The system [employer] generated this result transmitted ref erence range: 0 - 9 mm /hr. The reference r sam was not used to interpret this result as normal/abnor mal. Lab Interpretation (test Abnormal code = 94216-3) [facility] [id number] 19:37:46 Test Item Value Reference Range Interpretation Comments Sed Rate (test code = 34 See_Comment H [Auto mated message] 4536-7) The system [employer] generated this result transmitted ref erence range: 0 - 9 mm /hr. The reference r sam was not used to interpret this result as normal/abnor mal. Lab Interpretation (test Abnormal code = 82286-5) [facility] [id number] 19:37:46 Test Item Value Reference Range Interpretation Comments Sed Rate (test code = 34 See_Comment H [Auto mated message] 7-7) The system [employer] generated this result transmitted ref erence range: 0 - 9 mm /hr. The reference r sam was not used to interpret this result as normal/abnor mal. Lab Interpretation (test Abnormal code = 99058-0) [place] 61530022-05-19 12:51:41 Test Item Value Reference Range Interpretation Comments TSH (test code = 3.39 See_Comment [Automated message] The 78771-2) system which ge nerated this result transmit elbert reference range : 0.27 - 4.20 mcunit/mL. The reference range was not used to interpr et this result as nataly l/abnormal. [place] 61530022-05-19 12:51:41 Test Item Value Reference Range Interpretation Comments TSH (test code = 3.39 See_Comment [Automated message] The 22069-6) system which ge nerated this result transmit elbert reference range : 0.27 - 4.20 mcunit/mL. The reference range was not used to interpr et this result as nataly l/abnormal. [place] 61530022-05-19 12:51:41 Test Item Value Reference Range Interpretation Comments TSH (test code = 3.39 See_Comment [Automated message] The 95201-0) system which ge nerated this result transmit elbert reference range : 0.27 - 4.20 mcunit/mL. The reference range was not used to interpr et this result as nataly l/abnormal. [place] 61530022-05-19 12:51:41 Test Item Value Reference Range Interpretation Comments TSH (test code = 3.39 See_Comment [Automated message] The 18779-3) system which ge nerated this result transmit elbert reference range : 0.27 - 4.20 mcunit/mL. The reference range was not used to interpr et this result as nataly l/abnormal. [place] [address]-05-19 12:51:41 Test Item Value Reference Range Interpretation Comments TSH (test code = 3.39 See_Comment [Automated message] The 43142-9) system which ge nerated this result transmit elbert reference range : 0.27 - 4.20 mcunit/mL. The reference range was not used to interpr et this result as nataly l/abnormal. [place] [address]-05-19 12:51:41 Test Item Value Reference Range Interpretation Comments TSH (test code = 3.39 See_Comment [Automated message] The 89841-9) system which ge nerated this result transmit elbert reference range : 0.27 - 4.20 mcunit/mL. The reference range was not used to interpr et this result as nataly l/abnormal. [place] [address]-05-19 12:51:41 Test Item Value Reference Range Interpretation Comments TSH (test code = 3.39 See_Comment [Automated message] The 36802-7) system which ge nerated this result transmit elbert reference range : 0.27 - 4.20 mcunit/mL. The reference range was not used to interpr et this result as nataly l/abnormal. [facility] 12:51:41 Test Item Value Reference Range Interpretation Comments TSH (test code = 3.39 See_Comment [Automated message] The 92727-3) system which ge nerated this result transmit elbert reference range : 0.27 - 4.20 mcunit/mL. The reference range was not used to interpr et this result as nataly l/abnormal. [place] 61530022-05-19 12:51:41 Test Item Value Reference Range Interpretation Comments TSH (test code = 3.39 See_Comment [Automated message] The 56801-4) system which ge nerated this result transmit elbert reference range : 0.27 - 4.20 mcunit/mL. The reference range was not used to interpr et this result as nataly l/abnormal. [facility] [id number] 12:51:40 Test Item Value Reference Range Interpretation Comments Ferritin Lvl (test code = 2276-4) 1386 ng/mL 30-400 H Lab Interpretation (test code = Abnormal 30112-7) [facility] [id number] 12:51:40 Test Item Value Reference Range Interpretation Comments Ferritin Lvl (test code = 2276-4) 1386 ng/mL 30-400 H Lab Interpretation (test code = Abnormal 70053-9) [facility] [id number] 12:51:40 Test Item Value Reference Range Interpretation Comments Ferritin Lvl (test code = 2276-4) 1386 ng/mL 30-400 H Lab Interpretation (test code = Abnormal 63153-5) [facility] [id number] 12:51:40 Test Item Value Reference Range Interpretation Comments Ferritin Lvl (test code = 2276-4) 1386 ng/mL 30-400 H Lab Interpretation (test code = Abnormal 06054-7) [facility] [id number] 12:51:40 Test Item Value Reference Range Interpretation Comments Ferritin Lvl (test code = 2276-4) 1386 ng/mL 30-400 H Lab Interpretation (test code = Abnormal 92406-3) [facility] [id number] 12:51:40 Test Item Value Reference Range Interpretation Comments Ferritin Lvl (test code = 2276-4) 1386 ng/mL 30-400 H Lab Interpretation (test code = Abnormal 12184-2) [facility] [id number] 12:51:40 Test Item Value Reference Range Interpretation Comments Ferritin Lvl (test code = 2276-4) 1386 ng/mL 30-400 H Lab Interpretation (test code = Abnormal 97967-6) [facility] [id number] 12:51:40 Test Item Value Reference Range Interpretation Comments Ferritin Lvl (test code = 2276-4) 1386 ng/mL 30-400 H Lab Interpretation (test code = Abnormal 00747-4) [facility] [id number] 12:51:40 Test Item Value Reference Range Interpretation Comments Ferritin Lvl (test code = 2276-4) 1386 ng/mL 30-400 H Lab Interpretation (test code = Abnormal 91061-5) [place] 223002022-05-19 12:51:39 Test Item Value Reference Range Interpretation Comments T4 Free (test code = 3024-7) 1.21 ng/dL 0.93-1.70 [place] 223002022-05-19 12:51:39 Test Item Value Reference Range Interpretation Comments T4 Free (test code = 3024-7) 1.21 ng/dL 0.93-1.70 [place] 223002022-05-19 12:51:39 Test Item Value Reference Range Interpretation Comments T4 Free (test code = 3024-7) 1.21 ng/dL 0.93-1.70 [place] 223002022-05-19 12:51:39 Test Item Value Reference Range Interpretation Comments T4 Free (test code = 3024-7) 1.21 ng/dL 0.93-1.70 [place] 223002022-05-19 12:51:39 Test Item Value Reference Range Interpretation Comments T4 Free (test code = 3024-7) 1.21 ng/dL 0.93-1.70 [place] 223002022-05-19 12:51:39 Test Item Value Reference Range Interpretation Comments T4 Free (test code = 3024-7) 1.21 ng/dL 0.93-1.70 [place] 223002022-05-19 12:51:39 Test Item Value Reference Range Interpretation Comments T4 Free (test code = 3024-7) 1.21 ng/dL 0.93-1.70 [place] 223002022-05-19 12:51:39 Test Item Value Reference Range Interpretation Comments T4 Free (test code = 3024-7) 1.21 ng/dL 0.93-1.70 [place] 223002022-05-19 12:51:39 Test Item Value Reference Range Interpretation Comments T4 Free (test code = 3024-7) 1.21 ng/dL 0.93-1.70 [facility] [id number] 12:50:43 Test Item Value Reference Range Interpretation Comments A1C (test code = 5.3 % 4.3-5.6 HbA1c value s >=6.5% are 4548-4) diagnostic of d iabetes mellitus.Diagno sis should be confirmed by repeat testing.[employer]rape [employer] Action suggested: >8.0 % HbA1c; Goal oftherapy: <7.0% HbA1c [facility] [id number] 12:50:43 Test Item Value Reference Range Interpretation Comments A1C (test code = 5.3 % 4.3-5.6 HbA1c value s >=6.5% are 4548-4) diagnostic of d iabetes mellitus.Diagno sis should be confirmed by repeat testing.Therape ut[employer] Action suggested: >8.0 % HbA1c; Goal oftherapy: <7.0% HbA1c [facility] [id number] 12:50:43 Test Item Value Reference Range Interpretation Comments A1C (test code = 5.3 % 4.3-5.6 HbA1c value s >=6.5% are 4548-4) diagnostic of d iabetes mellitus.Diagno sis should be confirmed by repeat testing.Therape [employer] Action suggested: >8.0 % HbA1c; Goal oftherapy: <7.0% HbA1c [facility] [id number] 12:50:43 Test Item Value Reference Range Interpretation Comments A1C (test code = 5.3 % 4.3-5.6 HbA1c value s >=6.5% are 4548-4) diagnostic of d iabetes mellitus.Diagno sis should be confirmed by repeat testing.Therape [employer] Action suggested: >8.0 % HbA1c; Goal oftherapy: <7.0% HbA1c [facility] [id number] 12:50:43 Test Item Value Reference Range Interpretation Comments A1C (test code = 5.3 % 4.3-5.6 HbA1c value s >=6.5% are 4548-4) diagnostic of d iabetes mellitus.Diagno sis should be confirmed by repeat testing.Therape [employer] Action suggested: >8.0 % HbA1c; Goal oftherapy: <7.0% HbA1c [facility] [id number] 12:50:43 Test Item Value Reference Range Interpretation Comments A1C (test code = 5.3 % 4.3-5.6 HbA1c value s >=6.5% are 4548-4) diagnostic of d iabetes mellitus.Diagno sis should be confirmed by repeat testing.Therape [employer] Action suggested: >8.0 % HbA1c; Goal oftherapy: <7.0% HbA1c [facility] [id number] 12:50:43 Test Item Value Reference Range Interpretation Comments A1C (test code = 5.3 % 4.3-5.6 HbA1c value s >=6.5% are 4548-4) diagnostic of d iabetes mellitus.Diagno sis should be confirmed by repeat testing.Therape [employer] Action suggested: >8.0 % HbA1c; Goal oftherapy: <7.0% HbA1c [facility] [id number] 12:50:43 Test Item Value Reference Range Interpretation Comments A1C (test code = 5.3 % 4.3-5.6 HbA1c value s >=6.5% are 4548-4) diagnostic of d iabetes mellitus.Diagno sis should be confirmed by repeat testing.Therape [employer] Action suggested: >8.0 % HbA1c; Goal oftherapy: <7.0% HbA1c [facility] [id number] 12:50:43 Test Item Value Reference Range Interpretation Comments A1C (test code = 5.3 % 4.3-5.6 HbA1c value s >=6.5% are 4548-4) diagnostic of d iabetes mellitus.Diagno sis should be confirmed by repeat testing.Therape [employer] Action suggested: >8.0 % HbA1c; Goal oftherapy: <7.0% HbA1c [facility] with [id number] 12:49:30 Test Item Value Reference Range Interpretation Comments Transferrin (test code = 180 mg/dL 200-360 L 3034-6) TIBC (test code = 252 See_Comment [Automate d message] 2500-7) The system [employer] generated this result transmit elbert reference range : 250 - 450 mcg/dL. T he reference range was not used to interpret this result as normal/abnormal . Lab Interpretation (test Abnormal code = 41481-1) [facility] Center[facility] with [id number] 12:49:30 Test Item Value Reference Range Interpretation Comments Transferrin (test code = 180 mg/dL 200-360 L 3034-6) TIBC (test code = 252 See_Comment [Automate d message] 2500-7) The system [employer] generated this result transmit elbert reference range : 250 - 450 mcg/dL. T he reference range was not used to interpret this result as normal/abnormal . Lab Interpretation (test Abnormal code = 46816-1) [facility] CenterTrans[facility] with [id number] 12:49:30 Test Item Value Reference Range Interpretation Comments Transferrin (test code = 180 mg/dL 200-360 L 3034-6) TIBC (test code = 252 See_Comment [Automate d message] 2500-7) The system [employer] generated this result transmit elbert reference range : 250 - 450 mcg/dL. T he reference range was not used to interpret this result as normal/abnormal . Lab Interpretation (test Abnormal code = 36929-7) [facility] Center[facility] with [id number] 12:49:30 Test Item Value Reference Range Interpretation Comments Transferrin (test code = 180 mg/dL 200-360 L 3034-6) TIBC (test code = 252 See_Comment [Automate d message] 2500-7) The system [employer] generated this result transmit elbert reference range : 250 - 450 mcg/dL. T he reference range was not used to interpret this result as normal/abnormal . Lab Interpretation (test Abnormal code = 46711-9) [facility] with [id number] 12:49:30 Test Item Value Reference Range Interpretation Comments Transferrin (test code = 180 mg/dL 200-360 L 3034-6) TIBC (test code = 252 See_Comment [Automate d message] 2500-7) The system [employer] generated this result transmit elbert reference range : 250 - 450 mcg/dL. T he reference range was not used to interpret this result as normal/abnormal . Lab Interpretation (test Abnormal code = 51031-0) [facility] Center[facility] with [id number] 12:49:30 Test Item Value Reference Range Interpretation Comments Transferrin (test code = 180 mg/dL 200-360 L 3034-6) TIBC (test code = 252 See_Comment [Automate d message] 2500-7) The system [employer] generated this result transmit elbert reference range : 250 - 450 mcg/dL. T he reference range was not used to interpret this result as normal/abnormal . Lab Interpretation (test Abnormal code = 99498-5) [facility] with [id number] 12:49:30 Test Item Value Reference Range Interpretation Comments Transferrin (test code = 180 mg/dL 200-360 L 3034-6) TIBC (test code = 252 See_Comment [Automate d message] 2500-7) The system [employer] generated this result transmit elbert reference range : 250 - 450 mcg/dL. T he reference range was not used to interpret this result as normal/abnormal . Lab Interpretation (test Abnormal code = 79456-4) [facility] with [id number] 12:49:30 Test Item Value Reference Range Interpretation Comments Transferrin (test code = 180 mg/dL 200-360 L 3034-6) TIBC (test code = 252 See_Comment [Automate d message] 2500-7) The system [employer] generated this result transmit elbert reference range : 250 - 450 mcg/dL. T he reference range was not used to interpret this result as normal/abnormal . Lab Interpretation (test Abnormal code = 66536-3) [facility] with [id number] 12:49:30 Test Item Value Reference Range Interpretation Comments Transferrin (test code = 180 mg/dL 200-360 L 3034-6) TIBC (test code = 252 See_Comment [Automate d message] 2500-7) The system [employer] generated this result transmit elbert reference range : 250 - 450 mcg/dL. T he reference range was not used to interpret this result as normal/abnormal . Lab Interpretation (test Abnormal code = 52564-5) [facility] [id number] 12:49:29 Test Item Value Reference Range Interpretation Comments Iron (test code = 77 See_Comment [Automate d message] The [facility]) system which ge nerated this result transmit elbert reference range : 59 - 158 mcg/dL. The ref erence range was not used to interpret this result as normal/abnormal . [place] [address] 12:49:29 Test Item Value Reference Range Interpretation Comments Iron (test code = 77 See_Comment [Automate d message] The [facility]) system which ge nerated this result transmit elbert reference range : 59 - 158 mcg/dL. The ref erence range was not used to interpret this result as normal/abnormal . [address]05-19 12:49:29 Test Item Value Reference Range Interpretation Comments Iron (test code = 77 See_Comment [Automate d message] The [facility]) system which ge nerated this result transmit elbert reference range : 59 - 158 mcg/dL. The ref erence range was not used to interpret this result as normal/abnormal . [place] [id number] 12:49:29 Test Item Value Reference Range Interpretation Comments Iron (test code = 77 See_Comment [Automate d message] The [facility]) system which ge nerated this result transmit elbert reference range : 59 - 158 mcg/dL. The ref erence range was not used to interpret this result as normal/abnormal . [address]05-19 12:49:29 Test Item Value Reference Range Interpretation Comments Iron (test code = 77 See_Comment [Automate d message] The [facility]) system which ge nerated this result transmit elbert reference range : 59 - 158 mcg/dL. The ref erence range was not used to interpret this result as normal/abnormal . [address]19 12:49:29 Test Item Value Reference Range Interpretation Comments Iron (test code = 77 See_Comment [Automate d message] The [facility]) system which ge nerated this result transmit elbert reference range : 59 - 158 mcg/dL. The ref erence range was not used to interpret this result as normal/abnormal . [facility] [id number] 12:49:29 Test Item Value Reference Range Interpretation Comments Iron (test code = 77 See_Comment [Automate d message] The 2498-4) system which ge nerated this result transmit elbert reference range : 59 - 158 mcg/dL. The ref erence range was not used to interpret this result as normal/abnormal . [facility] [id number] 12:49:29 Test Item Value Reference Range Interpretation Comments Iron (test code = 77 See_Comment [Automate d message] The 2498-4) system which ge nerated this result transmit elbert reference range : 59 - 158 mcg/dL. The ref erence range was not used to interpret this result as normal/abnormal . [facility]2022-05-19 12:49:29 Test Item Value Reference Range Interpretation Comments Iron (test code = 77 See_Comment [Automate d message] The 2498-4) system which ge nerated this result transmit elbert reference range : 59 - 158 mcg/dL. The ref erence range was not used to interpret this result as normal/abnormal . [facility] CenterLipid [id number] 12:43:25 Test Item Value Reference Range Interpretation Comments Chol (test code = 78 mg/dL See_Comment ATP III Cl assification 2093-3) of Total Choles terol Primary Target of Therapy (in mg/dL):<200 Sukraklxe995-49 9 Borderline high >=240 High [Automated message] The sy stem which generated this result transmit elbert reference range : <=199. The refe rence range was not u sed to interpret this result as normal/abnor mal. Trig (test code = 221 mg/dL See_Comment H ATP III Cl assification 2571-8) of Serum Trigly cerides Primary Target of Therapy (in mg/dL):<150 Vctlqi022-228 Borderline high 200-499 High>=500 Very highNon-fasting triglycerides [...] See_Comment L [Automated message] 2084-12) The system [employer] generated this result transmitted ref erence range: >=40. Th e reference range was not used to int erpret this result as normal/abnormal . LDL (test code = 26 mg/dL See_Comment ATP III Cla ssification 04181-1) of LDL Choleste rol Primary Target of Therapy (in mg/dL):<100 Ekimhln040-346 Near optimal/above -665 Borderline high 160-189 High>=190 Very high [Automated mess age] The system [employer] generated this result transmitted ref erence range: <=100. T he reference range was not used to int erpret this result as normal/abnormal . VLDL (test code = 44 mg/dL 89958-1) Lab Interpretation Abnormal (test code = 87959-5) [facility] [id number] 12:43:25 Test Item Value Reference Range Interpretation Comments Chol (test code = 78 mg/dL See_Comment ATP III Cl assification 2092-3) of Total Choles terol Primary Target of Therapy (in mg/dL):<200 Vxekrwimk015-02 9 Borderline high >=240 High [Automated message] The sy stem which generated this result transmit elbert reference range : <=199. The refe rence range was not u sed to interpret this result as normal/abnor mal. Trig (test code = 221 mg/dL See_Comment H ATP III Cl assification 2571-8) of Serum Trigly cerides Primary Target of Therapy (in mg/dL):<150 Dibsvo759-329 Borderline high 200-499 High>=500 Very highNon-fasting triglycerides [...] See_Comment L [Automated message] 2084-12) The system [employer] generated this result transmitted ref erence range: >=40. Th e reference range was not used to int erpret this result as normal/abnormal . LDL (test code = 26 mg/dL See_Comment ATP III Cla ssification 90364-7) of LDL Choleste rol Primary Target of Therapy (in mg/dL):<100 Ecnzldz354-293 Near optimal/above uwuhllt998-832 Borderline high 160-189 High>=190 Very high [Automated mess age] The system [employer] generated this result transmitted ref erence range: <=100. T he reference range was not used to int erpret this result as normal/abnormal . VLDL (test code = 44 mg/dL 13444-7) Lab Interpretation Abnormal (test code = 02526-1) [facility] [id number] 12:43:25 Test Item Value Reference Range Interpretation Comments Chol (test code = 78 mg/dL See_Comment ATP III Cl assification 2092-06) of Total Choles terol Primary Target of Therapy (in mg/dL):<200 Dotbeopir867-54 9 Borderline high >=240 High [Automated message] The sy stem which generated this result transmit elbert reference range : <=199. The refe rence range was not u sed to interpret this result as normal/abnor mal. Trig (test code = 221 mg/dL See_Comment H ATP III Cl assification 3771-8) of Serum Trigly cerides Primary Target of Therapy (in mg/dL):<150 Nnphnf916-740 Borderline high 200-499 High>=500 Very highNon-fasting triglycerides [...] See_Comment L [Automated message] 2084-12) The system [employer] generated this result transmitted ref erence range: >=40. Th e reference range was not used to int erpret this result as normal/abnormal . LDL (test code = 26 mg/dL See_Comment ATP III Cla ssification 23093-7) of LDL Choleste rol Primary Target of Therapy (in mg/dL):<100 Vefkjyz715-104 Near optimal/above jiionqo056-299 Borderline high 160-189 High>=190 Very high [Automated mess age] The system [employer] generated this result transmitted ref erence range: <=100. T he reference range was not used to int erpret this result as normal/abnormal . VLDL (test code = 44 mg/dL 38378-0) Lab Interpretation Abnormal (test code = 65922-8) [facility] [id number] 12:43:25 Test Item Value Reference Range Interpretation Comments Chol (test code = 78 mg/dL <=199 ATP III Cl assification 2092-06) of Total Choles terol Primary Target of Therapy (in mg/dL):<200 Idbbqkypo987-52 9 Borderline high >=240 High Trig (test code = 221 mg/dL <=149 H ATP III Cl assification 2571-8) of Serum Trigly cerides Primary Target of Therapy (in mg/dL):<150 Gjzgnm338-782 Borderline high 200-499 High>=500 Very highNon-fasting triglycerides > 200 mg/dL may be fo llowed up with a fasti ng Lipid Panel. Calculated LDL- C may be falsely decr eased when non-fastin g triglycerides > 200 mg/dL. HDL (test code = 8 mg/dL >=40 L 2084-12) LDL (test code = 26 mg/dL <=100 ATP III Cla ssification 17944-4) of LDL Choleste rol Primary Target of Therapy (in mg/dL):<100 Blyeuvq495-309 Near optimal/above iuwlmbk537-385 Borderline high 160-189 High>=190 Very high VLDL (test code = 44 mg/dL 61725-1) Lab Interpretation Abnormal (test code = 88588-1) [facility] [id number] 12:43:25 Test Item Value Reference Range Interpretation Comments Chol (test code = 78 mg/dL <=199 ATP III Cl assification 2092-06) of Total Choles terol Primary Target of Therapy (in mg/dL):<200 Ulqlmitaj506-61 9 Borderline high >=240 High Trig (test code = 221 mg/dL <=149 H ATP III Cl assification 2571-8) of Serum Trigly cerides Primary Target of Therapy (in mg/dL):<150 Yxnhah661-907 Borderline high 200-499 High>=500 Very highNon-fasting triglycerides > 200 mg/dL may be fo llowed up with a fasti ng Lipid Panel. Calculated LDL- C may be falsely decr eased when non-fastin g triglycerides > 200 mg/dL. HDL (test code = 8 mg/dL >=40 L 2084-12) LDL (test code = 26 mg/dL <=100 ATP III Cla ssification 41881-4) of LDL Choleste rol Primary Target of Therapy (in mg/dL):<100 Kmcvupu527-825 Near optimal/above -634 Borderline high 160-189 High>=190 Very high VLDL (test code = 44 mg/dL 22972-8) Lab Interpretation Abnormal (test code = 40399-8) [facility] [id number] 12:43:25 Test Item Value Reference Range Interpretation Comments Chol (test code = 78 mg/dL <=199 ATP III Cl assification 2092-3) of Total Choles terol Primary Target of Therapy (in mg/dL):<200 Imvyzydjk040-12 9 Borderline high >=240 High Trig (test code = 221 mg/dL <=149 H ATP III Cl assification 2571-8) of Serum Trigly cerides Primary Target of Therapy (in mg/dL):<150 Vtagvb528-950 Borderline high 200-499 High>=500 Very highNon-fasting triglycerides > 200 mg/dL may be fo llowed up with a fasti ng Lipid Panel. Calculated LDL- C may be falsely decr eased when non-fastin g triglycerides > 200 mg/dL. HDL (test code = 8 mg/dL >=40 L 2084-12) LDL (test code = 26 mg/dL <=100 ATP III Cla ssification 35590-5) of LDL Choleste rol Primary Target of Therapy (in mg/dL):<100 Ffgijmd987-479 Near optimal/above iaossdg606-686 Borderline high 160-189 High>=190 Very high VLDL (test code = 44 mg/dL 67786-1) Lab Interpretation Abnormal (test code = 34126-5) [facility] [id number] 12:43:25 Test Item Value Reference Range Interpretation Comments Chol (test code = 78 mg/dL <=199 ATP III Cl assification 2092-06) of Total Choles terol Primary Target of Therapy (in mg/dL):<200 Xinchgnpv775-44 9 Borderline high >=240 High Trig (test code = 221 mg/dL <=149 H ATP III Cl assification 1-8) of Serum Trigly cerides Primary Target of Therapy (in mg/dL):<150 Biaskh759-138 Borderline high 200-499 High>=500 Very highNon-fasting triglycerides > 200 mg/dL may be fo llowed up with a fasti ng Lipid Panel. Calculated LDL- C may be falsely decr eased when non-fastin g triglycerides > 200 mg/dL. HDL (test code = 8 mg/dL >=40 L 2084-12) LDL (test code = 26 mg/dL <=100 ATP III Cla ssification 49114-9) of LDL Choleste rol Primary Target of Therapy (in mg/dL):<100 Wrhusln907-713 Near optimal/above qmqwpgi170-695 Borderline high 160-189 High>=190 Very high VLDL (test code = 44 mg/dL 94596-8) Lab Interpretation Abnormal (test code = 41234-9) [facility] [id number] 12:43:25 Test Item Value Reference Range Interpretation Comments Chol (test code = 78 mg/dL <=199 ATP III Cl assification 2092-06) of Total Choles terol Primary Target of Therapy (in mg/dL):<200 Debdsjhlt771-45 9 Borderline high >=240 High Trig (test code = 221 mg/dL <=149 H ATP III Cl assification 2571-8) of Serum Trigly cerides Primary Target of Therapy (in mg/dL):<150 Kiuvgp736-270 Borderline high 200-499 High>=500 Very highNon-fasting triglycerides > 200 mg/dL may be fo llowed up with a fasti ng Lipid Panel. Calculated LDL- C may be falsely decr eased when non-fastin g triglycerides > 200 mg/dL. HDL (test code = 8 mg/dL >=40 L 2084-12) LDL (test code = 26 mg/dL <=100 ATP III Cla ssification 68620-9) of LDL Choleste rol Primary Target of Therapy (in mg/dL):<100 Ytimdub431-847 Near optimal/above tzgsbax664-391 Borderline high 160-189 High>=190 Very high VLDL (test code = 44 mg/dL 68154-1) Lab Interpretation Abnormal (test code = 54034-4) [facility] [id number] 12:43:25 Test Item Value Reference Range Interpretation Comments Chol (test code = 78 mg/dL <=199 ATP III Cl assification 3-3) of Total Choles terol Primary Target of Therapy (in mg/dL):<200 Ffbjidfrh412-90 9 Borderline high >=240 High Trig (test code = 221 mg/dL <=149 H ATP III Cl assification 2571-8) of Serum Trigly cerides Primary Target of Therapy (in mg/dL):<150 Jluccg894-477 Borderline high 200-499 High>=500 Very highNon-fasting triglycerides > 200 mg/dL may be fo llowed up with a fasti ng Lipid Panel. Calculated LDL- C may be falsely decr eased when non-fastin g triglycerides > 200 mg/dL. HDL (test code = 8 mg/dL >=40 L 9) LDL (test code = 26 mg/dL <=100 ATP III Cla ssification 88522-0) of LDL Choleste rol Primary Target of Therapy (in mg/dL):<100 Exfifze937-536 Near optimal/above fceolvk631-340 Borderline high 160-189 High>=190 Very high VLDL (test code = 44 mg/dL 18365-8) Lab Interpretation Abnormal (test code = 60990-1) [facility] *GP* 2019-02-11 16:42:58Lumbar spine, 2 viewsLocation Code: [id number] HISTORY: Back problemCOMPARISON: None.COMMENTS: AP and lateral views of the lumbar spine demonstrate no acutefracture or malalignment. There is moderate multilevel disc space narrowingwith endplate sclerosis and osteophyte formation. The soft tissues areunremarkable.IMPRESSION: Moderate multilevel lumbar spondylosis with otherwise no acuteabnormality.
--- NOTE | 2022-07-19 15:11 | EDPHYS ---
Physician Documentation [facility] Name: Rene Padgett Age: 67 yrs Sex: Male : 1955 Arrival Date: 07/03/2022 Time: 06:11 Bed 14 Private MD: ED Physician Emmie Marsh HPI: 07/03 06:24 This 67 yrs old Male presents to ER via Ambulatory with complaints of Hand sp3 Pain. 06:24 67-year-old male with a history of prior lymphoma and sepsis being treated in [facility] as well as Parkinson's presents to the ED with chief complaint continued left arm swelling/pain. Patient is requesting his PICC line be removed. He is no longer needing it and [facility] is cleared its removal. He was seen 2 days ago and diagnosed with DVT and placed on a starter pack of Eliquis for which the pharmacy did not have but the pharmacy told him that they would have it starting today. He is here mainly requesting the PICC line will be removed. He denies having any chest pain, shortness of breath, palpitations, rash, bleeding or any other signs or symptoms on ROS at this time. He is going to be departing here straight to the pharmacy to package pick up his Eliquis and he will start his p.o. dose. He denies any vomiting or diarrhea or any GI symptoms at all that may interfere with Eliquis absorption.. Historical: - Allergies: 06:23 No Known Allergies; bb - PMHx: 06:23 High Cholesterol; Parkinson's disease; Rheumatoid Arthritis; Sepsis; Lymphoma; bb - Immunization history:: vaccinated. - Social history:: Smoking status: Patient denies any tobacco usage or history of. ROS: 06:25 Constitutional: Negative for fever, chills, and weight loss, Eyes: Negative for injury, sp3 pain, redness, and discharge, ENT: Negative for injury, pain, and discharge, Neck: Negative for injury, pain, and swelling, Cardiovascular: Negative for chest pain, palpitations, and edema, Respiratory: Negative for shortness of breath, cough, wheezing, and pleuritic chest pain, Abdomen/GI: Negative for abdominal pain, nausea, vomiting, diarrhea, and constipation, Back: Negative for injury and pain, Skin: Negative for injury, rash, and discoloration, Neuro: Negative for headache, weakness, numbness, tingling, and seizure, Psych: Negative for depression, anxiety, suicide ideation, homicidal ideation, and hallucinations, Allergy/Immunology: Negative for hives, rash, and allergies, Endocrine: Negative for neck swelling, polydipsia, polyuria, polyphagia, and marked weight changes. 06:25 All other systems are negative. Exam: 06:26 Constitutional: This is a well developed, well nourished patient who is awake, alert, sp3 and in no acute distress. Head/Face: Normocephalic, atraumatic. Eyes: Pupils equal round and reactive to light, extra-ocular motions intact. Lids and lashes normal. Conjunctiva and sclera are non-icteric and not injected. Cornea within normal limits. Periorbital areas with no swelling, redness, or edema. Neck: Trachea midline, no thyromegaly or masses palpated, and no cervical lymphadenopathy. Supple, full range of motion without nuchal rigidity, or vertebral point tenderness. No Meningismus. Chest/axilla: Normal chest wall appearance and motion. Nontender with no deformity. No lesions are appreciated. Cardiovascular: Regular rate and rhythm with a normal S1 and S2. No gallops, murmurs, or rubs. Normal PMI, no JVD. No pulse deficits. Respiratory: Lungs have equal breath sounds bilaterally, clear to auscultation and percussion. No rales, rhonchi or wheezes noted. No increased work of breathing, no retractions or nasal flaring. Back: No spinal tenderness. No costovertebral tenderness. Full range of motion. Skin: Warm, dry with normal turgor. Normal color with no rashes, no lesions, and no evidence of cellulitis. Neuro: Awake and alert, GCS 15, oriented to person, place, time, and situation. Cranial nerves II-XII grossly intact. Motor strength 5/5 in all extremities. Sensory grossly intact. Cerebellar exam normal. Normal gait. Psych: Awake, alert, with orientation to person, place and time. Behavior, mood, and affect are within normal limits. 06:26 Musculoskeletal/extremity: Lines present on the left upper extremity at the AC level no localized infection noted. Left upper extremity is mildly swollen compared to the right. Prevascular and pulmonary exams are normal.. 06:26 Neuro: Parkinson's intention tremor noted.. Vital Signs: 06:21 Weight 86.18 kg (R); Height 5 ft. 10 in. (R); Pain 9/10; bb 06:38 BP 148 / 104; Pulse 89; Resp 18 S; Temp 97.9(O); Pulse Ox 98% ; ha1 06:21 Body Mass Index 27.26 (86.18 kg, 177.8 cm) bb 06:21 Pain Scale: Adult bb MDM: 06:23 Patient medically screened. sp3 06:27 Data reviewed: vital signs, nurses notes. ED course: 67-year-old male with known DVT of sp3 the left upper extremity now requesting PICC line removal. We will remove PICC line and patient to go directly to pharmacy to package pick up his Eliquis starting pack and follow-up with [facility] as needed. Patient is in no acute extremis and I do not believe patient has a distal pulmonary embolism or local infection at the PICC line site.. Administered Medications: No medications were administered Disposition Summary: 07/03/22 06:29 Discharge Ordered Location: Home sp3 Condition: Stable sp3 Diagnosis - DVT left upper extremity, PICC line removal sp3 Followup: sp3 - With: Private Physician - When: Upon discharge from the Emergency Department - Reason: Wound Recheck, Further diagnostic work-up Discharge Instructions: - Discharge Summary Sheet sp3 - PICC Removal, Adult sp3 Forms: - Medication Reconciliation Form sp3 - Thank You Letter sp3 - Antibiotic Education sp3 - Prescription Opioid Use sp3 Signatures: Queta Lanier RN RN Emmie Eldridge MD MD sp3
--- NOTE | 2022-07-19 15:11 | ER ---
Nurse's Notes [facility] Name: Rene Padgett Age: 67 yrs Sex: Male : 1955 Arrival Date: 07/03/2022 Time: 06:11 Bed 14 Private MD: Diagnosis: DVT left upper extremity, PICC line removal Presentation: 07/03 06:21 Chief complaint: Patient states: he was seen here on Friday and diagnosed with a DVT to bb his left arm and prescribed Eliquis but it wont be available until today from the pharmacy so he hasn't started it yet and now his hand is more swollen and painful than it was also he contacted [facility] and was told it was okay for us to remove his PICC line. Coronavirus screen: At this time, the client does not indicate any symptoms associated with coronavirus-19. Ebola Screen: No symptoms or risks identified at this time. Initial Sepsis Screen: Does the patient meet any 2 criteria? No. Patient's initial sepsis screen is negative. Does the patient have a suspected source of infection? No. Patient's initial sepsis screen is negative. Risk Assessment: Do you want to hurt yourself or someone else? Patient reports no desire to harm self or others. Onset of symptoms was July 03, 2022. 06:21 Method Of Arrival: Ambulatory bb 06:21 Acuity: JAYLEN 2 bb Triage Assessment: 06:12 General: Appears comfortable, Behavior is calm, cooperative. Pain: Complains of pain in ha1 left arm Pain does not radiate. Pain currently is 9 out of 10 on a pain scale. EENT: No signs and/or symptoms were reported regarding the EENT system. Neuro: Level of Consciousness is awake, alert, obeys commands, Oriented to person, place, time, situation. Cardiovascular: Capillary refill < 3 seconds Patient's skin is warm and dry. Respiratory: Airway is patent Respiratory effort is even, unlabored, Respiratory pattern is regular, symmetrical. 06:12 Musculoskeletal: Circulation, motion, and sensation intact. ha1 Historical: - Allergies: 06:23 No Known Allergies; bb - PMHx: 06:23 High Cholesterol; Parkinson's disease; Rheumatoid Arthritis; Sepsis; Lymphoma; bb - Immunization history:: vaccinated. - Social history:: Smoking status: Patient denies any tobacco usage or history of. Screenin:15 [facility] ED Fall Risk Assessment (Adult) History of falling in the last 3 months, bb including since admission No falls in past 3 months (0 pts) Score/Fall Risk Level 0 - 2 = Low Risk Oriented to surroundings, Maintained a safe environment. 06:41 Abuse screen: Denies threats or abuse. Denies injuries from another. Nutritional ha1 screening: No deficits noted. Tuberculosis screening: No symptoms or risk factors identified. Assessment: 06:15 General: Appears in no apparent distress. Behavior is calm, cooperative. Pain: bb Complains of pain in left arm. Neuro: Level of Consciousness is awake, alert, obeys commands, Oriented to person, place, time, situation. Cardiovascular: Capillary refill < 3 seconds Patient's skin is warm and dry. Respiratory: Respiratory effort is unlabored. GI: No signs and/or symptoms were reported involving the gastrointestinal system. Derm: Skin is pink, warm \T\ dry. Musculoskeletal: Circulation, motion, and sensation intact. Swelling present in left arm. 06:33 Reassessment: discontinued pt's PICC line to left upper arm catheter intact, bleeding bb controlled, pressure dressing applied. Vital Signs: 06:21 Weight 86.18 kg (R); Height 5 ft. 10 in. (R); Pain 9/10; bb 06:38 BP 148 / 104; Pulse 89; Resp 18 S; Temp 97.9(O); Pulse Ox 98% ; ha1 06:21 Body Mass Index 27.26 (86.18 kg, 177.8 cm) bb 06:21 Pain Scale: Adult bb ED Course: 06:11 Patient arrived in ED. jj6 06:12 Patient has correct armband on for positive identification. Bed in low position. Call ha1 light in reach. Side rails up X 1. 06:23 Triage completed. bb 06:23 Emmie Marsh MD is Attending Physician. sp3 06:23 Arm band placed on Patient placed in an exam room, on a stretcher, on pulse oximetry. bb Family accompanied patient. 06:38 Mayda Evans, JOSE is Primary Nurse. ha1 06:42 No provider procedures requiring assistance completed. Patient did not have IV access ha1 during this emergency room visit. Administered Medications: No medications were administered Medication: 06:43 VIS not applicable for this client. ha1 Outcome: 06:29 Discharge ordered by . sp3 06:42 Discharged to home ambulatory, with family. ha1 06:42 Condition: stable 06:42 Discharge instructions given to patient, family, Instructed on discharge instructions, follow up and referral plans. Demonstrated understanding of instructions, follow-up care. 06:43 Patient left the ED. ha1 Signatures: Queta Lanier RN RN bb Emmie Marsh MD MD sp3 Inge Suggs6 Mayda Evans RN RN ha1
== END 2022-07-03 06:43 | disposition home or self-care (01) ==
LOC: ER 06:09
DX: I82.622 Acute embolism and thrombosis of deep veins of left upper extremity (principal); Z45.2 Encounter for adjustment and management of vascular access device; Z85.72 Personal history of non-Hodgkin lymphomas
CPT/HCPCS: 99283